=== PATIENT | female | born 1965 | race Caucasian/White ===

== ENCOUNTER 2016-08-01 19:36 | Emergency (ER) | payer OTHER ==
[2016-08-01 19:41] VITALS: RESP 18
[2016-08-01] MEDS ORDERED: SODIUM CHLORIDE 0.9% 1,000 ML IV STA (20:06)
[2016-08-01] MEDS ORDERED: METOCLOPRAMIDE 5 MG/ML 2 ML VIAL IVP STA (20:08)
[2016-08-01] MEDS ORDERED: MECLIZINE 12.5 MG TAB PO STA (20:08)
--- NOTE | 2016-08-01 20:12 | ED ---
General Adult HPI - General Chief complaint: Dizziness Stated complaint: DIZZINESS Time Seen by Provider: 08/01/16 19:48 Source: patient, RN notes reviewed Mode of arrival: EMS Limitations: no limitations - History of Present Illness Initial comments: Patient is a pleasant 50-year-old female presenting to the emergency department complaining of dizziness. Onset was around 1:00 when she woke from a nap. Patient feels a spinning sensation. Symptoms are positional. Symptoms worsen with upright position. Symptoms improved with lying down and closing eyes. No history of similar symptoms previously. No headache. No confusion. No weakness. Patient questions of her speech may be off and states it feels like it may be slurred. Patient denies alcohol or street drug use. - Related Data Home Medications Medication Instructions Recorded Confirmed lamoTRIgine [LaMICtal] 400 mg PO HS 09/01/14 08/01/16 ARIPiprazole [Abilify] 10 mg PO DAILY 11/07/15 08/01/16 Atorvastatin [Lipitor] 20 mg PO DAILY 11/07/15 08/01/16 Cyclobenzaprine [Flexeril] 10 mg PO HS 11/07/15 08/01/16 Escitalopram [Lexapro] 20 mg PO DAILY 11/07/15 08/01/16 ALPRAZolam [Xanax] 0.5 mg PO BID 12/02/15 08/01/16 Brivaracetam [Briviact] 50 mg PO BID 08/01/16 08/01/16 Phentermine HCl [Adipex-P] 37.5 mg PO QAM 08/01/16 08/01/16 clonazePAM [KlonoPIN] 1 mg PO TID 08/01/16 08/01/16 traMADol HCl [Ultram] 50 mg PO Q4-6H PRN 08/01/16 08/01/16 Allergies Allergy/AdvReac Type Severity Reaction Status Date / Time erythromycin base Allergy Rash/Hives Verified 08/01/16 19:49 iodine Allergy throat Verified 08/01/16 19:49 swelling and hives ketorolac tromethamine Allergy Rash/Hives Verified 08/01/16 19:49 [From Toradol] Penicillins Allergy throat Verified 08/01/16 19:49 swelling and hives azithromycin AdvReac red face Verified 08/01/16 19:49 codeine AdvReac Hallucinati Verified 08/01/16 19:49 ons lorazepam [From Ativan] AdvReac Hallucinati Verified 08/01/16 19:49 ons Review of Systems ROS Statement: Those systems with pertinent positive or pertinent negative responses have been documented in the HPI. ROS Other: All systems not noted in ROS Statement are negative. Constitutional: Denies: fever Eyes: Denies: eye pain ENT: Denies: ear pain Respiratory: Denies: cough Cardiovascular: Denies: chest pain Endocrine: Denies: fatigue Gastrointestinal: Denies: abdominal pain Genitourinary: Denies: dysuria Musculoskeletal: Denies: back pain Skin: Denies: rash Neurological: Reports: vertigo. Denies: headache, weakness, numbness, paresthesias, confusion Past Medical History Past Medical History: Seizure Disorder, Syncope Additional Past Medical History / Comment(s): migraines History of Any Multi-Drug Resistant Organisms: MRSA Date of last positivie culture/infection: 12/03/2010 MDRO Source:: arm and abdomen Past Surgical History: Appendectomy, Cholecystectomy, Ear Surgery, Hysterectomy , Orthopedic Surgery Additional Past Surgical History / Comment(s): frantz knee surgery, hiatal hernia Past Anesthesia/Blood Transfusion Reactions: Postoperative Nausea & Vomiting ( PONV) Past Psychological History: Depression Smoking Status: Never smoker Past Alcohol Use History: Rare Past Drug Use History: None Reported - Past Family History Mother Additional Family Medical History / Comment(s): stated mom has heart issues General Exam Limitations: no limitations General appearance: alert, in no apparent distress Head exam: Present: atraumatic, normocephalic Eye exam: Present: normal appearance, PERRL, EOMI. Absent: nystagmus ENT exam: Present: normal oropharynx Neck exam: Present: normal inspection Respiratory exam: Present: normal lung sounds bilaterally Cardiovascular Exam: Present: regular rate, normal rhythm GI/Abdominal exam: Present: soft. Absent: tenderness Extremities exam: Present: other (Right lower leg casted from recent surgery) Neurological exam: Present: alert, oriented X3, CN II-XII intact. Absent: motor sensory deficit Expanded Neurological exam: Present: other (No slurred speech noticed) Patient oriented to: Present: person, place, time Speech: Present: fluid speech. Absent: receptive aphasia, expressive aphasia Cranial nerves: Facial Sensation: Normal Sensory exam: Upper Extremity Light Touch: Normal, Lower Extremity Light Touch: Normal Motor strength exam: RUE: 5, LUE: 5, RLE: 5, LLE: 5 Eye Response: (4) open spontaneously Motor Response: (6) obeys commands Verbal Response: (5) oriented Psychiatric exam: Present: normal affect, normal mood Skin exam: Absent: rash Course Vital Signs 08/01/16 08/01/16 08/01/16 19:38 20:40 21:00 Temperature 98.3 F Pulse Rate 90 88 82 Respiratory 18 18 18 Rate Blood Pressure 152/69 129/61 125/57 O2 Sat by Pulse 96 97 Oximetry EKG Findings - EKG Comments: EKG Findings:: Normal sinus rhythm at 90. MS 166. QRS 142. QT 402. QTC 491. Left axis. Right bundle branch block. Left anterior fascicular block. Voltage criteria for LVH. No acute ST changes. Medical Decision Making - Medical Decision Making Patient reexamined and symptom-free. Patient is able to get up and immediately without any difficulty. Patient has been having some of these problems and speech problems for months. Patient has seen her neurologist for this. Patient has had her Lamictal dose increased and family is concerned it could be related to this. Patient and family are advised to follow-up with neurologist this week and discuss dosing and symptoms. - Lab Data Result diagrams: 08/01/16 20:10 08/01/16 20:10 Lab Results 08/01/16 08/01/16 08/01/16 Range/Units 20:10 20:10 20:10 WBC 9.4 (3.8-10.6) k/uL RBC 4.29 (3.80-5.40) m/uL Hgb 12.1 (11.4-16.0) gm/dL Hct 35.8 (34.0-46.0) % MCV 83.5 (80.0-100.0) fL MCH 28.1 (25.0-35.0) pg MCHC 33.7 (31.0-37.0) g/dL RDW 14.1 (11.5-15.5) % Plt Count 343 (150-450) k/uL Neutrophils % 67 % Lymphocytes % 25 % Monocytes % 4 % Eosinophils % 3 % Basophils % 1 % Neutrophils # 6.3 (1.3-7.7) k/uL Lymphocytes # 2.3 (1.0-4.8) k/uL Monocytes # 0.3 (0-1.0) k/uL Eosinophils # 0.3 (0-0.7) k/uL Basophils # 0.1 (0-0.2) k/uL PT 9.8 (9.0-12.0) sec INR 1.0 (<1.1) APTT 18.8 L (22.0-30.0) sec Sodium 143 (137-145) mmol/L Potassium 4.1 (3.5-5.1) mmol/L Chloride 108 H (98-107) mmol/L Carbon Dioxide 25 (22-30) mmol/L Anion Gap 10 mmol/L BUN 18 H (7-17) mg/dL Creatinine 0.70 (0.52-1.04) mg/dL Est GFR (MDRD) Af Amer >60 (>60 ml/min/1.73 sqM) Est GFR (MDRD) Non-Af >60 (>60 ml/min/1.73 sqM) Glucose 84 (74-99) mg/dL Calcium 9.0 (8.4-10.2) mg/dL Total Bilirubin 0.4 (0.2-1.3) mg/dL AST 25 (14-36) U/L ALT 28 (9-52) U/L Alkaline Phosphatase 187 H (38-126) U/L Total Protein 6.4 (6.3-8.2) g/dL Albumin 3.5 (3.5-5.0) g/dL Urine Color Urine Appearance (Clear) Urine pH (5.0-8.0) Ur Specific [place] (1.001-1.035) Urine Protein (Negative) Urine Glucose (UA) (Negative) Urine Ketones (Negative) Urine Blood (Negative) Urine Nitrite (Negative) Urine Bilirubin (Negative) Urine Urobilinogen (<2.0) mg/dL Ur Leukocyte Esterase (Negative) Urine Opiates Screen (NotDetected) Ur Oxycodone Screen (NotDetected) Urine Methadone Screen (NotDetected) Ur Propoxyphene Screen (NotDetected) Ur Barbiturates Screen (NotDetected) U Tricyclic Antidepress (NotDetected) Ur Phencyclidine Scrn (NotDetected) Ur Amphetamines Screen (NotDetected) U Methamphetamines Scrn (NotDetected) U Benzodiazepines Scrn (NotDetected) Urine Cocaine Screen (NotDetected) U Marijuana (THC) Screen (NotDetected) 08/01/16 08/01/16 Range/Units 21:10 21:10 WBC (3.8-10.6) k/uL RBC (3.80-5.40) m/uL Hgb (11.4-16.0) gm/dL Hct (34.0-46.0) % MCV (80.0-100.0) fL MCH (25.0-35.0) pg MCHC (31.0-37.0) g/dL RDW (11.5-15.5) % Plt Count (150-450) k/uL Neutrophils % % Lymphocytes % % Monocytes % % Eosinophils % % Basophils % % Neutrophils # (1.3-7.7) k/uL Lymphocytes # (1.0-4.8) k/uL Monocytes # (0-1.0) k/uL Eosinophils # (0-0.7) k/uL Basophils # (0-0.2) k/uL PT (9.0-12.0) sec INR (<1.1) APTT (22.0-30.0) sec Sodium (137-145) mmol/L Potassium (3.5-5.1) mmol/L Chloride (98-107) mmol/L Carbon Dioxide (22-30) mmol/L Anion Gap mmol/L BUN (7-17) mg/dL Creatinine (0.52-1.04) mg/dL Est GFR (MDRD) Af Amer (>60 ml/min/1.73 sqM) Est GFR (MDRD) Non-Af (>60 ml/min/1.73 sqM) Glucose (74-99) mg/dL Calcium (8.4-10.2) mg/dL Total Bilirubin (0.2-1.3) mg/dL AST (14-36) U/L ALT (9-52) U/L Alkaline Phosphatase (38-126) U/L Total Protein (6.3-8.2) g/dL Albumin (3.5-5.0) g/dL Urine Color Yellow Urine Appearance Clear (Clear) Urine pH 5.5 (5.0-8.0) Ur Specific [place] 1.027 (1.001-1.035) Urine Protein Trace H (Negative) Urine Glucose (UA) Negative (Negative) Urine Ketones Trace H (Negative) Urine Blood Negative (Negative) Urine Nitrite Negative (Negative) Urine Bilirubin Negative (Negative) Urine Urobilinogen 2.0 (<2.0) mg/dL Ur Leukocyte Esterase Negative (Negative) Urine Opiates Screen Not Detected (NotDetected) Ur Oxycodone Screen Not Detected (NotDetected) Urine Methadone Screen Not Detected (NotDetected) Ur Propoxyphene Screen Not Detected (NotDetected) Ur Barbiturates Screen Not Detected (NotDetected) U Tricyclic Antidepress Detected H (NotDetected) Ur Phencyclidine Scrn Not Detected (NotDetected) Ur Amphetamines Screen Detected H (NotDetected) U Methamphetamines Scrn Not Detected (NotDetected) U Benzodiazepines Scrn Detected H (NotDetected) Urine Cocaine Screen Not Detected (NotDetected) U Marijuana (THC) Screen Not Detected (NotDetected) - Radiology Data Radiology results: image reviewed (Computed tomography scan of the brain shows no acute intercranial abnormality. Surgical changes right mastoid) Disposition Clinical Impression: Vertigo Disposition: HOME SELF-CARE Condition: Stable Instructions: Dizziness (ED) Additional Instructions: Please follow-up with your primary care physician and neurologist tomorrow. Return for confusion, weakness, speech problems, uncontrolled dizziness, worsening symptoms or other concerns. Referrals: Scott Medrano MD [Primary Care Provider] - 1-2 days
[2016-08-01 20:29] LABS: Basophils # (A) 0.1 k/uL (0-0.2); Basophils % (A) 1 %; CH 27.7; CHCM 33.3; Eosinophils # (A) 0.3 k/uL (0-0.7); Eosinophils % (A) 3 %; HCT 35.8 % (34.0-46.0); HDW 2.85; HGB 12.1 gm/dL (11.4-16.0); Luc # (Auto) 0.12; Luc % (Auto) 1; Lymphocytes # (A) 2.3 k/uL (1.0-4.8); Lymphocytes % (A) 25 %; MCH 28.1 pg (25.0-35.0); MCHC 33.7 g/dL (31.0-37.0); MCV 83.5 fL (80.0-100.0); Mean Platelet Volume 6.6; Monocytes # (A) 0.3 k/uL (0-1.0); Monocytes % (A) 4 %; Neutrophils # (A) 6.3 k/uL (1.3-7.7); Neutrophils % (A) 67 %; RBC 4.29 m/uL (3.80-5.40); RDW 14.1 % (11.5-15.5); WBC 9.4 k/uL (3.8-10.6); WBC (Perox) 9.45
[2016-08-01 20:34] LABS: Prothrombin Time 9.8 sec (9.0-12.0)
[2016-08-01 20:35] LABS: ALT 28 U/L (9-52); AST 25 U/L (14-36); Alkaline Phosphatase 187 U/L (38-126); Anion Gap 10 mmol/L; Blood Urea Nitrogen 18 mg/dL (7-17); Carbon Dioxide 25 mmol/L (22-30); Chloride 108 mmol/L (98-107); Glucose 84 mg/dL (74-99); Non-African American GFR(MDRD) >60 (>60 ml/min/1.73 sqM); Potassium 4.1 mmol/L (3.5-5.1); Sodium 143 mmol/L (137-145); Total Bilirubin 0.4 mg/dL (0.2-1.3); Total Protein 6.4 g/dL (6.3-8.2)
[2016-08-01 20:54] LABS: Partial Thromboplastin Time 18.8 sec (22.0-30.0)
--- NOTE | 2016-08-01 20:59 | CT ---
EXAMINATION TYPE: CT brain wo con DATE OF EXAM: 08/01/2016 8:47 PM COMPARISON: CT brain 04/28/2015 HISTORY: 50-year-old female with vertigo and dizziness today. TECHNIQUE: Examination was done in axial plane without intravenous contrast. Coronal and sagittal r econstructions performed. CT DLP: 1065.20 mGycm Automated exposure control for dose reduction was used. FINDINGS: There is no evidence of acute intracranial hemorrhage, acute ischemic changes, mass, mass-effect, or extra-axial fluid collection. There is no effacement of cerebral sulci or basal subarachnoid cister ns. There is no hydrocephalus. There is no midline shift. Rivera-white matter distinction is preserv ed. Postsurgical changes along the right temporal bone with chronic opacification. Left mastoid air cells and paranasal sinuses are well pneumatized. Right nasal septal deviation. Orbits and globes are inta ct. IMPRESSION: No acute intracranial abnormality seen. Postsurgical changes along the right mastoid process and midd le ear cavity with chronic opacification. Clinically correlate for any known diagnosis suggest choles teatoma.
[2016-08-01 21:19] LABS: Appearance,Urine Clear (Clear); Bilirubin,Urine Negative (Negative); Glucose,Urine (UA) Negative (Negative); Ketones,Urine Trace (Negative); Leukocyte Esterase,Urine Negative (Negative); Nitrite,Urine Negative (Negative); PH, Urine 5.5 (5.0-8.0); Protein,Urine Trace (Negative); Specific Gravity,Urine 1.027 (1.001-1.035); UA Billing (MACRO vs. MICRO) CHEM
[2016-08-01] MEDS ORDERED: SCOPOLAMINE 1.5MG/72HR PATCH TRANSDERM STA (21:24)
[2016-08-01 23:16] VITALS: BP 131/58; PULSE 85; TEMP 97.5
== END 2016-08-01 23:05 | disposition home or self-care (01) ==
LOC: EC 19:36
DX: R42 Dizziness and giddiness (principal); G40.909 Epilepsy, unspecified, not intractable, without status epilepticus; F32.9 Major depressive disorder, single episode, unspecified; Z79.899 Other long term (current) drug therapy; Z88.1 Allergy status to other antibiotic agents; Z88.0 Allergy status to penicillin; Z88.5 Allergy status to narcotic agent; Z88.6 Allergy status to analgesic agent; Z88.8 Allergy status to other drugs, medicaments and biological substances
CPT/HCPCS: 36415; 93005; 80053; 85025; 85610; 85730; 81003; 80306; 70450; 99285; 96374; 96361 ×3; J2765

== ENCOUNTER 2016-09-04 15:12 | Emergency (ER) | payer OTHER ==
[2016-09-04 15:25] VITALS: TEMP 97.9
--- NOTE | 2016-09-04 15:56 | ED ---
General Adult HPI - General Chief complaint: Seizure Stated complaint: Seizure Time Seen by Provider: 09/04/16 15:16 Source: patient, RN notes reviewed, old records reviewed Mode of arrival: EMS Limitations: no limitations - History of Present Illness Initial comments: Chief complaint and history of present illness this is a 50-year-old female here with history of seizure. She is with a family friend was called by the patient's son. The patient's son called her and told her that her mother was starting to have the blink his which means she does not have a seizure. He left the house when the family friend got there she was having what she called a seizure with arms outstretched. After several minutes the patient told her while still having her seizure she should call EMS. The patient is able to speak during her seizure. EMS started an IV and gave her 5 mg of Versed. The patient's sleepy at this time. - Related Data Home Medications Medication Instructions Recorded Confirmed lamoTRIgine [LaMICtal] 400 mg PO HS 09/01/14 08/01/16 ARIPiprazole [Abilify] 10 mg PO DAILY 11/07/15 08/01/16 Atorvastatin [Lipitor] 20 mg PO DAILY 11/07/15 08/01/16 Cyclobenzaprine [Flexeril] 10 mg PO HS 11/07/15 08/01/16 Escitalopram [Lexapro] 20 mg PO DAILY 11/07/15 08/01/16 ALPRAZolam [Xanax] 0.5 mg PO BID 12/02/15 08/01/16 Brivaracetam [Briviact] 50 mg PO BID 08/01/16 08/01/16 Phentermine HCl [Adipex-P] 37.5 mg PO QAM 08/01/16 08/01/16 clonazePAM [KlonoPIN] 1 mg PO TID 08/01/16 08/01/16 traMADol HCl [Ultram] 50 mg PO Q4-6H PRN 08/01/16 08/01/16 Allergies Allergy/AdvReac Type Severity Reaction Status Date / Time erythromycin base Allergy Rash/Hives Verified 09/04/16 15:26 iodine Allergy Anaphylaxis Verified 09/04/16 16:29 ketorolac tromethamine Allergy Rash/Hives Verified 09/04/16 15:26 [From Toradol] Penicillins Allergy Anaphylaxis Verified 09/04/16 16:29 azithromycin AdvReac red face Verified 09/04/16 15:26 codeine AdvReac Hallucinati Verified 09/04/16 15:26 ons lorazepam [From Ativan] AdvReac Hallucinati Verified 09/04/16 15:26 ons Review of Systems ROS Statement: Those systems with pertinent positive or pertinent negative responses have been documented in the HPI. review of systems. Patient not complaining of any headache or visual acuity changes no chest pain or shortness of breath she does have chronic back pain. Did not complain of it at this time. No nausea no vomiting. All systems are reviewed.Past medical problems significant for seizure disorder often caused by chronic pain and anxiety. Reported to have had a significant syncopal episode in the past has migraines. The patient's surgeries include appendectomy, cholecystectomy, ear surgery, hysterectomy, bilateral knee surgeries. Family history noncontributory. The patient has ALLERGIES to erythromycin base, iodine, Toradol, penicillin, azithromycin, codeine and lorazepam. Patient nonsmoker rarely drinks alcohol socially. Denies drug abuse. Also past history of anxiety and depression ROS Other: All systems not noted in ROS Statement are negative. Past Medical History Past Medical History: Seizure Disorder, Syncope Additional Past Medical History / Comment(s): migraines History of Any Multi-Drug Resistant Organisms: MRSA Date of last positivie culture/infection: 12/03/2010 MDRO Source:: arm and abdomen Past Surgical History: Appendectomy, Cholecystectomy, Ear Surgery, Hysterectomy , Orthopedic Surgery Additional Past Surgical History / Comment(s): frantz knee surgery, hiatal hernia Past Anesthesia/Blood Transfusion Reactions: Postoperative Nausea & Vomiting ( PONV) Past Psychological History: Depression Smoking Status: Never smoker Past Alcohol Use History: Rare Past Drug Use History: None Reported - Past Family History Mother Additional Family Medical History / Comment(s): stated mom has heart issues General Exam - General Exam Comments Initial Comments: General: The patient is awake and alert, in no distress, and does not appear acutely ill. still sleepy from the Versed. Vital signs temperature 97.9 pulse 74 respiratory rate 18 pulse ox 90% room air pressure 130/65 Eye: Pupils are equal, round and reactive to light, extra-ocular movements are intact ; there is normal conjunctiva bilaterally. No signs of icterus. Ears, nose, mouth and throat: There are moist mucous membranes and no oral lesions. Neck: The neck is supple, there is no tenderness . Cardiovascular: There is a regular rate and rhythm. No murmur, rub or gallop is appreciated. Respiratory: Lungs are clear to auscultation, respirations are non-labored, breath sounds are equal. No wheezes, stridor, rales, or rhonchi. Gastrointestinal: Soft, non-distended, non-tender abdomen without masses or organomegaly noted. There is no rebound or guarding present. No CVA tenderness. Bowel sounds are unremarkable. Back: There is no tenderness to palpation in the midline. There is no obvious deformity. No rashes noted. Musculoskeletal: Normal ROM, no tenderness, mild edema right leg, recent Achilles tendon repair. Neurovascular status feet are intact. Neurological: CN II-XII intact, There are no obvious motor or sensory deficits. Coordination appears grossly intact. Speech is normal. Skin: Skin is warm and dry and no rashes or lesions are noted. Psychiatric: history of anxiety depression. Limitations: no limitations Course Vital Signs 09/04/16 09/04/16 15:19 17:08 Temperature 97.9 F Pulse Rate 74 56 L Respiratory 18 20 Rate Blood Pressure 138/65 122/56 O2 Sat by Pulse 98 99 Oximetry Medical Decision Making - Medical Decision Making Medical decision-making. Patient's white count is 8 hemoglobin 11 hematocrit 34. Patient's feeling better was to go home. The antiseizure medications that she is on have been drawn and sent out to a send out lab. Is advised to call follow-up with the follow-up nurse if they are therapeutic range. Also follow- up with her neurologist who prescribes his medications. Patient knows she can drive until free of seizures for 6 months - Lab Data Result diagrams: 09/04/16 15:50 Lab Results 09/04/16 Range/Units 15:50 WBC 8.5 (3.8-10.6) k/uL RBC 4.16 (3.80-5.40) m/uL Hgb 11.6 (11.4-16.0) gm/dL Hct 34.9 (34.0-46.0) % MCV 83.9 (80.0-100.0) fL MCH 27.9 (25.0-35.0) pg MCHC 33.3 (31.0-37.0) g/dL RDW 14.5 (11.5-15.5) % Plt Count 323 (150-450) k/uL Neutrophils % 73 % Lymphocytes % 19 % Monocytes % 4 % Eosinophils % 2 % Basophils % 0 % Neutrophils # 6.2 (1.3-7.7) k/uL Lymphocytes # 1.6 (1.0-4.8) k/uL Monocytes # 0.3 (0-1.0) k/uL Eosinophils # 0.2 (0-0.7) k/uL Basophils # 0.0 (0-0.2) k/uL Disposition Clinical Impression: Seizure disorder Disposition: HOME SELF-CARE Condition: Fair Instructions: Recurrent Seizures in Adults (ED) Additional Instructions: Call follow-up nurse to the ER for lab results concerning her antiepileptic drugs. Follow-up with your neurologist. No driving until cleared by a neurologist. Referrals: Scott Medrano MD [Primary Care Provider] - 1-2 days Time of Disposition: 17:44
[2016-09-04 16:13] LABS: Basophils % (A) 0 %; CH 27.7; CHCM 33.1; Eosinophils # (A) 0.2 k/uL (0-0.7); Eosinophils % (A) 2 %; HCT 34.9 % (34.0-46.0); HGB 11.6 gm/dL (11.4-16.0); Luc # (Auto) 0.12; Luc % (Auto) 2; Lymphocytes # (A) 1.6 k/uL (1.0-4.8); Lymphocytes % (A) 19 %; MCH 27.9 pg (25.0-35.0); MCHC 33.3 g/dL (31.0-37.0); MCV 83.9 fL (80.0-100.0); Mean Platelet Volume 7.3; Monocytes # (A) 0.3 k/uL (0-1.0); Monocytes % (A) 4 %; Neutrophils # (A) 6.2 k/uL (1.3-7.7); Neutrophils % (A) 73 %; RBC 4.16 m/uL (3.80-5.40); RDW 14.5 % (11.5-15.5); WBC 8.5 k/uL (3.8-10.6); WBC (Perox) 8.56
[2016-09-04 18:08] VITALS: BP 168/70; PULSE 73; RESP 18
[2016-09-06 10:53] LABS: Lamotrigine (Lamictal) 9.3 ug/mL (2.0-15.0)
== END 2016-09-04 18:11 | disposition home or self-care (01) ==
LOC: EC 15:12
DX: G40.909 Epilepsy, unspecified, not intractable, without status epilepticus (principal); F32.9 Major depressive disorder, single episode, unspecified; Z79.899 Other long term (current) drug therapy; Z88.1 Allergy status to other antibiotic agents; Z88.0 Allergy status to penicillin; Z88.6 Allergy status to analgesic agent; Z88.5 Allergy status to narcotic agent; Z88.8 Allergy status to other drugs, medicaments and biological substances
CPT/HCPCS: 36415; 80175; 80203; 85025; 99285; G0480; 80346

== ENCOUNTER 2017-04-05 07:31 | Emergency (ER) | payer OTHER ==
[2017-04-05] MEDS ORDERED: SODIUM CHLORIDE 0.9% 500 ML IV STA (07:52)
[2017-04-05] MEDS ORDERED: ONDANSETRON 4 MG/2 ML VIAL IVP STA (07:52)
[2017-04-05 08:19] LABS: HCT 42.3 % (34.0-46.0); HGB 13.6 gm/dL (11.4-16.0); MCH 26.7 pg (25.0-35.0); MCHC 32.2 g/dL (31.0-37.0); MCV 82.8 fL (80.0-100.0); Mean Platelet Volume 7.1; Platelet Count 279 k/uL (150-450); RBC 5.11 m/uL (3.80-5.40); RDW 15.7 % (11.5-15.5); WBC 13.6 k/uL (3.8-10.6)
--- NOTE | 2017-04-05 08:24 | ED ---
General Adult HPI - General Chief complaint: Nausea/Vomiting/Diarrhea Stated complaint: Stomach pain Time Seen by Provider: 04/05/17 07:31 Source: patient, RN notes reviewed Mode of arrival: wheelchair Limitations: no limitations - History of Present Illness Initial comments: This is a 51-year-old female presents emergency Department with nausea. Patient states she's had intermittent nausea since Tuesday but has not vomited. Patient states she has had dry heaves. Patient denies any diarrhea. Patient denies any fever. Patient states that her abdomen is sore but there is no actual area of pain she believes that sore secondary to all of dry heaving. Patient denies any previous surgeries on her abdomen. Patient denies chest pain palpitations difficulty breathing or shortness of breath. Patient denies any dysuria hematuria urinary frequency. Patient denies headache patient denies numbness weakness patient denies lightheadedness or dizziness. - Related Data Home Medications Medication Instructions Recorded Confirmed Brivaracetam [Briviact] 50 mg PO BID 08/01/16 04/05/17 clonazePAM [KlonoPIN] 1 mg PO TID 08/01/16 04/05/17 Melatonin 5 mg PO HS 04/05/17 04/05/17 Topiramate [Topamax] 25 mg PO BID 04/05/17 04/05/17 lamoTRIgine [LaMICtal Xr] 100 mg PO BID 04/05/17 04/05/17 Previous Rx's Medication Instructions Recorded Ondansetron Odt [Zofran Odt] 4 mg PO Q8HR PRN #10 tab 04/05/17 Allergies Allergy/AdvReac Type Severity Reaction Status Date / Time erythromycin base Allergy Rash/Hives Verified 04/05/17 08:25 iodine Allergy Anaphylaxis Verified 04/05/17 08:25 ketorolac tromethamine Allergy Rash/Hives Verified 04/05/17 08:25 [From Toradol] Penicillins Allergy Anaphylaxis Verified 04/05/17 08:25 azithromycin AdvReac red face Verified 04/05/17 08:25 codeine AdvReac Hallucinati Verified 04/05/17 08:25 ons lorazepam [From Ativan] AdvReac Hallucinati Verified 04/05/17 08:25 ons Review of Systems ROS Statement: Those systems with pertinent positive or pertinent negative responses have been documented in the HPI. ROS Other: All systems not noted in ROS Statement are negative. Past Medical History Past Medical History: Seizure Disorder, Syncope Additional Past Medical History / Comment(s): migraines History of Any Multi-Drug Resistant Organisms: MRSA Date of last positivie culture/infection: 12/03/2010 MDRO Source:: arm and abdomen Past Surgical History: Appendectomy, Cholecystectomy, Ear Surgery, Hysterectomy , Orthopedic Surgery Additional Past Surgical History / Comment(s): frantz knee surgery, hiatal hernia Past Anesthesia/Blood Transfusion Reactions: Postoperative Nausea & Vomiting ( PONV) Past Psychological History: Depression Smoking Status: Never smoker Past Alcohol Use History: Rare Past Drug Use History: None Reported - Past Family History Mother Additional Family Medical History / Comment(s): stated mom has heart issues General Exam - General Exam Comments Initial Comments: GENERAL: Patient is well-developed and well-nourished. Patient is nontoxic and well- hydrated and is in mild distress. ENT: Neck is soft and supple. No significant lymphadenopathy is noted. Oropharynx is clear. Moist mucous membranes. Neck has full range of motion without eliciting any pain. EYES: The sclera were anicteric and conjunctiva were pink and moist. Extraocular movements were intact and pupils were equal round and reactive to light. Eyelids were unremarkable. PULMONARY: Unlabored respirations. Good breath sounds bilaterally. No audible rales rhonchi or wheezing was noted. CARDIOVASCULAR: There is a regular rate and rhythm without any murmurs gallops or rubs. ABDOMEN: Soft and nontender with normal bowel sounds. No palpable organomegaly was noted. There is no palpable pulsatile mass. SKIN: Skin is clear with no lesions or rashes and otherwise unremarkable. NEUROLOGIC: Patient is alert and oriented x3. Cranial nerves II through XII are grossly intact. Motor and sensory are also intact. Normal speech, volume and content. Symmetrical smile. MUSCULOSKELETAL: Normal extremities with adequate strength and full range of motion. LYMPHATICS: No significant lymphadenopathy is noted PSYCHIATRIC: Normal psychiatric evaluation. Normal interpersonal interactions appears functionally intact in deals appropriately with others. No signs of depression. No signs of anxiety. Limitations: no limitations Course Vital Signs 04/05/17 04/05/17 04/05/17 07:34 09:09 10:00 Temperature Pulse Rate 92 84 78 Respiratory 18 16 16 Rate Blood Pressure 149/66 109/64 124/60 O2 Sat by Pulse 98 96 96 Oximetry 04/05/17 11:28 Temperature 97.3 F L Pulse Rate 81 Respiratory 16 Rate Blood Pressure 122/68 O2 Sat by Pulse 96 Oximetry Medical Decision Making - Medical Decision Making I will begin the room to reevaluate the patient she had no longer any abdominal pain she had not had any dry heaves and nausea for the last hour and she felt comfortable going home. - Lab Data Result diagrams: 04/05/17 08:09 04/05/17 08:09 Lab Results 04/05/17 04/05/17 04/05/17 Range/Units 08:09 08:09 09:30 WBC 13.6 H (3.8-10.6) k/uL RBC 5.11 (3.80-5.40) m/uL Hgb 13.6 (11.4-16.0) gm/dL Hct 42.3 (34.0-46.0) % MCV 82.8 (80.0-100.0) fL MCH 26.7 (25.0-35.0) pg MCHC 32.2 (31.0-37.0) g/dL RDW 15.7 H (11.5-15.5) % Plt Count 279 (150-450) k/uL Neutrophils % (Manual) 18 % Lymphocytes % (Manual) 80 % Monocytes % (Manual) 1 % Basophils % (Manual) 1 % Neutrophils # (Manual) 2.45 (1.3-7.7) k/uL Lymphocytes # (Manual) 10.88 H (1.0-4.8) k/uL Monocytes # (Manual) 0.14 (0-1.0) k/uL Basophils # (Manual) 0.14 (0-0.2) k/uL Nucleated RBCs 0 (0-0) /100 WBC Differential Comment Manual Slide Review Performed Poikilocytosis (manual Present Sodium 142 (137-145) mmol/L Potassium 3.6 (3.5-5.1) mmol/L Chloride 104 (98-107) mmol/L Carbon Dioxide 26 (22-30) mmol/L Anion Gap 12 mmol/L BUN 25 H (7-17) mg/dL Creatinine 1.19 H (0.52-1.04) mg/dL Est GFR (MDRD) Af Amer 58 (>60 ml/min/1.73 sqM) Est GFR (MDRD) Non-Af 48 (>60 ml/min/1.73 sqM) Glucose 101 H (74-99) mg/dL Calcium 9.3 (8.4-10.2) mg/dL Total Bilirubin 0.5 (0.2-1.3) mg/dL AST 67 H (14-36) U/L ALT 58 H (9-52) U/L Alkaline Phosphatase 319 H (38-126) U/L Total Protein 6.5 (6.3-8.2) g/dL Albumin 3.4 L (3.5-5.0) g/dL Amylase 35 (30-110) U/L Lipase 74 (23-300) U/L Urine Color Yellow Urine Appearance Turbid H (Clear) Urine pH 5.5 (5.0-8.0) Ur Specific [place] 1.018 (1.001-1.035) Urine Protein 1+ H (Negative) Urine Glucose (UA) Negative (Negative) Urine Ketones 1+ H (Negative) Urine Blood Trace H (Negative) Urine Nitrite Negative (Negative) Urine Bilirubin 1+ H (Negative) Urine Urobilinogen 2.0 (<2.0) mg/dL Ur Leukocyte Esterase Moderate H (Negative) Urine RBC 9 H (0-5) /hpf Urine WBC 36 H (0-5) /hpf Ur Squamous Epith Cells 43 H (0-4) /hpf Urine Bacteria Few H (None) /hpf Urine Mucus Many H (None) /hpf Disposition Clinical Impression: Nausea, Lymphocytosis Disposition: HOME SELF-CARE Condition: Good Instructions: Acute Nausea and Vomiting (ED) Additional Instructions: Follow-up with Dr. Mcpherson or Dr. Medrano tomorrow Prescriptions: Ondansetron Odt [Zofran Odt] 4 mg PO Q8HR PRN #10 tab PRN Reason: Nausea Referrals: Scott Medrano MD [Primary Care Provider] - 1-2 days Time of Disposition: 11:21
[2017-04-05 08:32] LABS: Albumin 3.4 g/dL (3.5-5.0); Calcium 9.3 mg/dL (8.4-10.2); Potassium 3.6 mmol/L (3.5-5.1); Total Bilirubin 0.5 mg/dL (0.2-1.3); Total Protein 6.5 g/dL (6.3-8.2)
--- NOTE | 2017-04-05 08:48 | XR ---
EXAMINATION TYPE: XR KUB DATE OF EXAM: 04/05/2017 8:45 AM CLINICAL HISTORY: Nausea and vomiting TECHNIQUE: Single supine image of the abdomen is obtained. COMPARISON: 12/02/[address] dated 07/02/2015. FINDINGS: Scattered gas is seen in non-distended small bowel loops. Gas and fecal material is seen in non-distended colon. There is no visceromegaly, pneumoperitoneum, or abnormal calcification apprecia yoandy. The lung bases are clear and the osseous structures are intact. Cholecystectomy clips are noted within the right upper quadrant. Mild degenerative changes the femoral acetabular joints and lumbosac ral junction are noted. Rounded density in the left hemipelvis likely relates to bowel this is simila r to the prior exam of 2016 and no abnormality is seen on the CT of 2016. IMPRESSION: Nonobstructive bowel gas pattern.
[2017-04-05 09:17] LABS: Basophils # (M) 0.14 k/uL (0-0.2); Lymphocytes # (M) 10.88 k/uL (1.0-4.8); Monocytes # (M) 0.14 k/uL (0-1.0); Neutrophils # (M) 2.45 k/uL (1.3-7.7); Neutrophils % (M) 18 %; Nucleated Red Blood Cells 0 /100 WBC (0-0); Total Cells Counted 100
[2017-04-05 09:18] LABS: Poikilocytosis (M) Present
[2017-04-05 10:10] LABS: Appearance,Urine Turbid (Clear); Bacteria,Urine Few /hpf; Bilirubin,Urine 1+ (Negative); Blood,Urine Trace (Negative); Color,Urine Yellow; Glucose,Urine (UA) Negative (Negative); Ketones,Urine 1+ (Negative); Leukocyte Esterase,Urine Moderate (Negative); Mucus,Urine Many /hpf; Nitrite,Urine Negative (Negative); PH, Urine 5.5 (5.0-8.0); Protein,Urine 1+ (Negative); RBC,Urine 9 /hpf (0-5); Specific Gravity,Urine 1.018 (1.001-1.035); Squamous Epithelial Cell,Urine 43 /hpf (0-4); WBC,Urine 36 /hpf (0-5)
[2017-04-05] MEDS ORDERED: METOCLOPRAMIDE 5 MG/ML 2 ML VIAL IVP STA ×2 (10:19→10:24)
[2017-04-05] MEDS ORDERED: ASPIRIN 81 MG PO STA (10:22)
[2017-04-05] MEDS ORDERED: NITROGLYCERIN OINT 1 INCH/GM PACKET TOPICAL STA (10:22)
--- NOTE | 2017-04-05 11:08 | US ---
EXAMINATION TYPE: US gallbladder DATE OF EXAM: 04/05/2017 COMPARISON: 07/02/2015 CT abdomen pelvis. CLINICAL HISTORY: Pain. Vomiting (dry heaving) x 2 days. Abdominal pain for 1 week. Cholecystectomy EXAM MEASUREMENTS: Liver Length: 14.9 cm Gallbladder Wall: Surgically absent CBD: 0.4 cm Right Kidney: 9.7 x 4.8 x 4.3 cm Pancreas: Obscured by bowel gas Liver: only visualized intercostally. Focal hypoechoic lesion = 3.1 x 3.0 x 3.5cm. This is superimp osed upon a background of heterogenous hepatic echotexture, most commonly relating to hepatic steatos is and limiting evaluation for underlying masses. Gallbladder: Surgically absent Evidence for sonographic Steve's sign: No CBD: appears wnl Right Kidney: no evidence of hydronephrosis Technical limitations due to large amount of overlying bowel content IMPRESSION: 1. Surgical absence of the gallbladder with no gallbladder fossa fluid collection. 2. Solitary hepatic mass measuring up to 3.5 cm. This is nonspecific and superimposed upon a backgrou nd of moderate hepatic steatosis. Further evaluation and characterization with dynamic contrast-enhan marty CT abdomen is recommended on a nonemergent basis.
[2017-04-06 22:56] VITALS: BP 122/68; PULSE 81; RESP 16
[2017-04-06 23:02] VITALS: TEMP 97.3
== END 2017-04-05 12:05 | disposition home or self-care (01) ==
LOC: EC 07:31
DX: D72.820 Lymphocytosis (symptomatic) (principal); R11.0 Nausea; R10.9 Unspecified abdominal pain; G40.909 Epilepsy, unspecified, not intractable, without status epilepticus; F32.9 Major depressive disorder, single episode, unspecified; Z79.899 Other long term (current) drug therapy; Z88.0 Allergy status to penicillin; Z88.1 Allergy status to other antibiotic agents; Z88.5 Allergy status to narcotic agent; Z88.6 Allergy status to analgesic agent; Z88.8 Allergy status to other drugs, medicaments and biological substances; Z91.048 Other nonmedicinal substance allergy status; Z86.69 Personal history of other diseases of the nervous system and sense organs; Z86.14 Personal history of Methicillin resistant Staphylococcus aureus infection; Z90.49 Acquired absence of other specified parts of digestive tract; Z53.8 Procedure and treatment not carried out for other reasons
CPT/HCPCS: 36415; 80053; 82150; 83690; 85025; 81001; 74018; 76705; 99284; 96374; 96375; 96361; J2765; J2405

== ENCOUNTER → 2017-10-18 | Outpatient (CLI) | payer OTHER ==
[2017-10-18 09:59] LABS: Calcium 9.6 mg/dL (8.4-10.2); Total Bilirubin 0.3 mg/dL (0.2-1.3)
[2017-10-18 10:12] LABS: T4, Free (Free Thyroxine) 1.09 ng/dL (0.78-2.19)
[2017-10-18 10:33] LABS: Basophils % (A) 1 %; Eosinophils # (A) 0.2 k/uL (0-0.7); Eosinophils % (A) 2 %; HCT 36.1 % (34.0-46.0); HGB 11.6 gm/dL (11.4-16.0); Lymphocytes # (A) 2.3 k/uL (1.0-4.8); Lymphocytes % (A) 32 %; MCH 27.8 pg (25.0-35.0); MCHC 32.2 g/dL (31.0-37.0); MCV 86.3 fL (80.0-100.0); Mean Platelet Volume 7.2; Monocytes # (A) 0.3 k/uL (0-1.0); Monocytes % (A) 5 %; Neutrophils # (A) 4.3 k/uL (1.3-7.7); Neutrophils % (A) 60 %; Platelet Count 283 k/uL (150-450); RBC 4.18 m/uL (3.80-5.40); RDW 14.2 % (11.5-15.5); WBC 7.2 k/uL (3.8-10.6)
== END | disposition home or self-care (01) ==
LOC: LABWHC1 08:46
PROVIDERS: ATTEND Pediatrics Neurodevelopmental Disabilities
DX: G40.319 Generalized idiopathic epilepsy and epileptic syndromes, intractable, without status epilepticus (principal)
CPT/HCPCS: 36415; 80053; 80061; 80175; 82607; 84439; 84443; 85025

== ENCOUNTER 2018-01-13 01:12 | Emergency (ER) | payer OTHER ==
[2018-01-13 01:18] VITALS: BP 130/69; PULSE 78; RESP 18; TEMP 98.3
--- NOTE | 2018-01-13 01:44 | ED ---
Extremity Problem HPI - General Chief complaint: Extremity Problem,Nontraumatic Stated complaint: Leg Pain from cast Time Seen by Provider: 01/13/18 01:24 Source: patient Mode of arrival: ambulatory Limitations: no limitations - History of Present Illness Initial comments: 52-year-old female patient presents to the emergency department today for evaluation of her cast. Patient states that her foot surgeon put a trial cast on her leg to see if she would be able to tolerate it before having surgery. She is scheduled to have a bone spur removed on 01/25/2018. Patient states that the cast is very tight around her ankle, she is unable to tolerate it being in place, and wants it removed. Patient states that she did not have the cast in place for an injury. She denies any numbness or tingling to her toes. Denies any pain, states it just feels like an intense pressure. She denies any other physical concerns. - Related Data Home Medications Medication Instructions Recorded Confirmed Brivaracetam [Briviact] 50 mg PO BID 08/01/16 04/05/17 clonazePAM [KlonoPIN] 1 mg PO TID 08/01/16 04/05/17 Melatonin 5 mg PO HS 04/05/17 04/05/17 Topiramate [Topamax] 25 mg PO BID 04/05/17 04/05/17 lamoTRIgine [LaMICtal Xr] 100 mg PO BID 04/05/17 04/05/17 Previous Rx's Medication Instructions Recorded Ondansetron Odt [Zofran Odt] 4 mg PO Q8HR PRN #10 tab 04/05/17 Allergies Allergy/AdvReac Type Severity Reaction Status Date / Time erythromycin base Allergy Rash/Hives Verified 01/13/18 01:18 iodine Allergy Anaphylaxis Verified 01/13/18 01:18 ketorolac tromethamine Allergy Rash/Hives Verified 01/13/18 01:18 [From Toradol] Penicillins Allergy Anaphylaxis Verified 01/13/18 01:18 azithromycin AdvReac red face Verified 01/13/18 01:18 codeine AdvReac Hallucinati Verified 01/13/18 01:18 ons lorazepam [From Ativan] AdvReac Hallucinati Verified 01/13/18 01:18 ons Review of Systems ROS Statement: Those systems with pertinent positive or pertinent negative responses have been documented in the HPI. ROS Other: All systems not noted in ROS Statement are negative. Past Medical History Past Medical History: Seizure Disorder, Syncope Additional Past Medical History / Comment(s): migraines History of Any Multi-Drug Resistant Organisms: MRSA Date of last positivie culture/infection: 12/03/2010 MDRO Source:: arm and abdomen Past Surgical History: Appendectomy, Cholecystectomy, Ear Surgery, Hysterectomy , Orthopedic Surgery Additional Past Surgical History / Comment(s): frantz knee surgery, hiatal hernia Past Anesthesia/Blood Transfusion Reactions: Postoperative Nausea & Vomiting ( PONV) Past Psychological History: Depression Smoking Status: Never smoker Past Alcohol Use History: Rare Past Drug Use History: None Reported - Past Family History Mother Additional Family Medical History / Comment(s): stated mom has heart issues General Exam Limitations: no limitations General appearance: alert, in no apparent distress, other (This is a well- developed, well-nourished adult female patient in no acute distress. Vital signs upon presentation are temperature 98.3F, pulse 78, respirations 18, blood pressure 130/69, pulse ox 100% on room air.) Respiratory exam: Present: normal lung sounds bilaterally. Absent: respiratory distress, wheezes, rales, rhonchi, stridor Cardiovascular Exam: Present: regular rate, normal rhythm, normal heart sounds. Absent: systolic murmur, diastolic murmur, rubs, gallop, clicks Extremities exam: Present: normal inspection, full ROM, normal capillary refill , other (Skin to the lower extremities is pink, warm, and dry. Cap refills less than 3 seconds. Pedal pulses 2+ and equal bilaterally.). Absent: tenderness, pedal edema, joint swelling, calf tenderness Neurological exam: Present: alert, oriented X3, CN II-XII intact Psychiatric exam: Present: normal affect, normal mood Skin exam: Present: warm, dry, intact, normal color. Absent: rash Course Vital Signs 01/13/18 01:15 Temperature 98.3 F Pulse Rate 78 Respiratory 18 Rate Blood Pressure 130/69 O2 Sat by Pulse 100 Oximetry Medical Decision Making - Medical Decision Making 52-year-old female patient presented to the emergency department today requesting cast removal. Patient did not have the cast in place for an injury. Cast was removed using the cast cutter. Patient tolerated the procedure well. She is instructed to follow-up with her insole stiffener for further evaluation since possible. Return parameters discussed in detail. She verbalizes understanding and agrees with this plan. Disposition Clinical Impression: Problem with fiberglass cast Disposition: HOME SELF-CARE Condition: Good Additional Instructions: Follow-up with your surgeon for recheck as soon as possible. Return here immediately for any new, worsening, or concerning symptoms Is patient prescribed a controlled substance at d/c from ED?: No Referrals: Scott Medrano MD [Primary Care Provider] - 1-2 days Time of Disposition: 01:43
== END 2018-01-13 01:51 | disposition home or self-care (01) ==
LOC: EC 01:12
DX: Z47.89 Encounter for other orthopedic aftercare (principal); M79.605 Pain in left leg; G40.909 Epilepsy, unspecified, not intractable, without status epilepticus; G43.909 Migraine, unspecified, not intractable, without status migrainosus; Z86.14 Personal history of Methicillin resistant Staphylococcus aureus infection; Z98.890 Other specified postprocedural states; Z79.899 Other long term (current) drug therapy; Z88.1 Allergy status to other antibiotic agents; Z91.048 Other nonmedicinal substance allergy status; Z88.6 Allergy status to analgesic agent; Z88.0 Allergy status to penicillin; Z88.5 Allergy status to narcotic agent; Z88.8 Allergy status to other drugs, medicaments and biological substances
CPT/HCPCS: 99283

== ENCOUNTER 2018-09-28 08:46 | Day surgery (SDC) | payer OTHER ==
[2018-09-26 09:11] VITALS: BMI 30.2
[~2018-09-28 08:46] MED LIST: SODIUM CHLORIDE 0.9% 1,000 ML IV SCH
[2018-09-28 09:17] VITALS: PULSE 80; RESP 20; TEMP 98.6
[2018-09-28] MEDS ORDERED: IV FLUID CONTINUATION 500 ML IV ONE (11:26)
[2018-09-28] MEDS ORDERED: ACETAMINOPHEN TAB 325 MG TAB PO STA (11:38)
--- NOTE | 2018-09-28 19:37 | P.PCN ---
Preoperative Diagnosis: Diagnosis Recurrent loss of consciousness and dizziness Twelve-lead ECG shows sinus rhythm DC interval of the upper limits of normal rig ht bundle branch block left axis Tilt table test per protocol Blood pressure 136/60 mmHg Baseline heart rate 65 beats a minute Patient was tilted upright at an angle of 70 per protocol change in heart rate and blood pressure no symptoms noted and she was laid supine at the end of the procedure Impression Twelve-lead ECG showing DC interval of the upper limbs are normal with right bundle branch block with left axis No evidence for neurocardiogenic syncope Normal heart rate and blood pressure response to upright tilting
== END 2018-09-28 11:58 | disposition home or self-care (01) ==
LOC: CATHEP 08:46
PROVIDERS: ATTEND Internal Medicine Clinical Cardiac Electrophysiology
DX: R55 Syncope and collapse (principal); R00.2 Palpitations; I25.10 Atherosclerotic heart disease of native coronary artery without angina pectoris; Z79.899 Other long term (current) drug therapy; Z88.1 Allergy status to other antibiotic agents; Z88.5 Allergy status to narcotic agent; Z88.0 Allergy status to penicillin; Z88.8 Allergy status to other drugs, medicaments and biological substances; Z91.048 Other nonmedicinal substance allergy status
CPT/HCPCS: 93660

== ENCOUNTER 2018-09-29 13:20 | Emergency (ER) | payer OTHER ==
[2018-09-29] MEDS ORDERED: SODIUM CHLORIDE 0.9% 500 ML 500 ML IV STA (14:12)
--- NOTE | 2018-09-29 14:55 | XR ---
EXAMINATION TYPE: XR chest 2V DATE OF EXAM: 09/29/2018 COMPARISON: 03/04/2016 HISTORY: 52-year-old female syncope TECHNIQUE: PA and lateral views FINDINGS: Heart upper limits of normal in size. Mild peribronchial cuffing appears chronic. No consolidation or pleural effusion. IMPRESSION: Borderline heart size. Chronic changes without definite acute process.
[2018-09-29 15:05] LABS: INR 0.9 (<1.2); Partial Thromboplastin Time 22.8 sec (22.0-30.0); Prothrombin Time 9.7 sec (9.0-12.0)
[2018-09-29 15:07] LABS: ALT 28 U/L (9-52); AST 33 U/L (14-36); African American GFR (CKD) >90 (>60 ml/min/1.73 sqM); Alkaline Phosphatase 189 U/L (38-126); Anion Gap 8 mmol/L; Blood Urea Nitrogen 20 mg/dL (7-17); Calcium 9.6 mg/dL (8.4-10.2); Carbon Dioxide 25 mmol/L (22-30); Chloride 110 mmol/L (98-107); Glucose 94 mg/dL (74-99); Sodium 143 mmol/L (137-145); Total Bilirubin 0.3 mg/dL (0.2-1.3); Total Protein 6.7 g/dL (6.3-8.2)
[2018-09-29 15:48] LABS: Basophils % (A) 1 %; Eosinophils # (A) 0.1 k/uL (0-0.7); Eosinophils % (A) 2 %; HCT 33.1 % (34.0-46.0); HGB 10.7 gm/dL (11.4-16.0); Hypochromasia Slight; Lymphocytes # (A) 2.3 k/uL (1.0-4.8); Lymphocytes % (A) 35 %; MCH 26.5 pg (25.0-35.0); MCHC 32.2 g/dL (31.0-37.0); MCV 82.2 fL (80.0-100.0); Monocytes # (A) 0.2 k/uL (0-1.0); Monocytes % (A) 3 %; Neutrophils # (A) 3.7 k/uL (1.3-7.7); Neutrophils % (A) 58 %; Platelet Count 284 k/uL (150-450); RBC 4.03 m/uL (3.80-5.40); RDW 15.9 % (11.5-15.5); WBC 6.4 k/uL (3.8-10.6)
[2018-09-29 16:05] VITALS: BP 137/68
--- NOTE | 2018-09-29 16:12 | ED ---
General Adult HPI - General Chief complaint: Syncope Stated complaint: Syncope Time Seen by Provider: 09/29/18 14:12 Source: patient, RN notes reviewed, old records reviewed Mode of arrival: ambulatory Limitations: no limitations - History of Present Illness Initial comments: 52-year-old female presents for evaluation syncopal episode. Patient has hist ory of seizure disorder, states this episode was not at all like previous seizures. She states she felt somewhat lightheaded, she had returned to her bedroom where she sat in a chair and lost consciousness. She is uncertain how long she was unconscious. She denies injury. She does report some palpitations during this episode. No chest pain. She denies abdominal pain nausea vomiting. She was seen at an outside hospital with similar symptoms and admitted at that time. Exact etiology of her symptoms was unclear. She is scheduled for a loop recorder in approximately one week with cardiology. - Related Data Home Medications Medication Instructions Recorded Confirmed Brivaracetam [Briviact] 50 mg PO BID 08/01/16 09/29/18 clonazePAM [KlonoPIN] 1 mg PO DAILY 08/01/16 09/29/18 Topiramate [Topamax] 25 mg PO BID 04/05/17 09/29/18 ALPRAZolam [Xanax] 0.5 mg PO Q8HR PRN 09/26/18 09/29/18 Melatonin 10 mg PO HS 09/26/18 09/29/18 diphenhydrAMINE HCL [Benadryl] 25 mg PO HS 09/26/18 09/29/18 lamoTRIgine [LaMICtal] 200 mg PO BID 09/26/18 09/29/18 Allergies Allergy/AdvReac Type Severity Reaction Status Date / Time erythromycin base Allergy Rash/Hives Verified 09/29/18 14:04 iodine Allergy Anaphylaxis Verified 09/29/18 14:04 ketorolac tromethamine Allergy Rash/Hives/ Verified 09/29/18 14:04 [From Toradol] hallucinati ons Penicillins Allergy Anaphylaxis Verified 09/29/18 14:04 azithromycin AdvReac red face Verified 09/29/18 14:04 codeine AdvReac Hallucinati Verified 09/29/18 14:04 ons lorazepam [From Ativan] AdvReac Hallucinati Verified 09/29/18 14:04 ons Review of Systems ROS Statement: Those systems with pertinent positive or pertinent negative responses have been documented in the HPI. ROS Other: All systems not noted in ROS Statement are negative. 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, swelling of left lower leg, insomnia, hx hiatal hernia, hx colon cancer, diarrhea, hx psoriasis, Leaky heart valve, episodes of "passing out" History of Any Multi-Drug Resistant Organisms: MRSA Date of last positivie culture/infection: 12/03/2010 MDRO Source:: arm and abdomen Past Surgical History: Appendectomy, Bowel Resection, Cholecystectomy, Ear Surgery, Hysterectomy, Orthopedic Surgery Additional Past Surgical History / Comment(s): frantz knee arthroscopy, hiatal hernia surgery, rt ear surgery to remove middle ear Past Anesthesia/Blood Transfusion Reactions: Postoperative Nausea & Vomiting (PONV) Past Psychological History: Anxiety, Panic Disorder Smoking Status: Never smoker Past Alcohol Use History: None Reported Past Drug Use History: None Reported - Past Family History Mother Family Medical History: No Reported History Additional Family Medical History / Comment(s): . General Exam Limitations: no limitations General appearance: alert, in no apparent distress Head exam: Present: atraumatic, normocephalic Eye exam: Present: normal appearance, PERRL ENT exam: Present: normal exam Neck exam: Present: normal inspection. Absent: tenderness, meningismus Respiratory exam: Present: normal lung sounds bilaterally. Absent: respiratory distress, wheezes Cardiovascular Exam: Present: regular rate, normal rhythm GI/Abdominal exam: Present: soft. Absent: distended, tenderness, guarding Extremities exam: Present: normal inspection, normal capillary refill Back exam: Present: normal inspection Neurological exam: Present: alert, oriented X3, CN II-XII intact. Absent: motor sensory deficit Psychiatric exam: Present: normal affect, normal mood Skin exam: Present: warm, dry, intact. 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 Presenting for evaluation today. She has had issues of recurrent syncope has had follow-up with cardiology. She is scheduled for a loop recorder. EKG is sinus rhythm similar compared to previous. Laboratory testing does reveal some anemia which is somewhat down trending but stable. She has no melena or hematochezia. She has normal electrolytes. Normal kidney function no signs of dehydration. Urinalysis does show 30 white cells, no dysuria, no urinary symptoms. Will not treat at this time. Case discussed with Dr. Mcpherson, who will see this patient on continued outpatient basis. He reports normal workup at previous hospital a dmission. She scheduled for a loop recorder in one week and will maintain this appointment. She will receive close follow-up with her primary care physician. Patient will continue to maintain oral hydration. Please return with worsening or changing symptoms. - Lab Data Result diagrams: 09/29/18 14:10 09/29/18 14:10 Lab Results 09/29/18 09/29/18 09/29/18 Range/Units 14:10 14:10 14:10 WBC 6.4 (3.8-10.6) k/uL RBC 4.03 (3.80-5.40) m/uL Hgb 10.7 L (11.4-16.0) gm/dL Hct 33.1 L (34.0-46.0) % MCV 82.2 (80.0-100.0) fL MCH 26.5 (25.0-35.0) pg MCHC 32.2 (31.0-37.0) g/dL RDW 15.9 H (11.5-15.5) % Plt Count 284 (150-450) k/uL Neutrophils % 58 % Lymphocytes % 35 % Monocytes % 3 % Eosinophils % 2 % Basophils % 1 % Neutrophils # 3.7 (1.3-7.7) k/uL Lymphocytes # 2.3 (1.0-4.8) k/uL Monocytes # 0.2 (0-1.0) k/uL Eosinophils # 0.1 (0-0.7) k/uL Basophils # 0.0 (0-0.2) k/uL Hypochromasia Slight PT 9.7 (9.0-12.0) sec INR 0.9 (<1.2) APTT 22.8 (22.0-30.0) sec Sodium 143 (137-145) mmol/L Potassium 4.0 (3.5-5.1) mmol/L Chloride 110 H (98-107) mmol/L Carbon Dioxide 25 (22-30) mmol/L Anion Gap 8 mmol/L BUN 20 H (7-17) mg/dL Creatinine 0.81 (0.52-1.04) mg/dL Est GFR (CKD-EPI)AfAm >90 (>60 ml/min/1.73 sqM) Est GFR (CKD-EPI)NonAf 84 (>60 ml/min/1.73 sqM) Glucose 94 (74-99) mg/dL Calcium 9.6 (8.4-10.2) mg/dL Total Bilirubin 0.3 (0.2-1.3) mg/dL AST 33 (14-36) U/L ALT 28 (9-52) U/L Alkaline Phosphatase 189 H (38-126) U/L Troponin I (0.000-0.034) ng/mL Total Protein 6.7 (6.3-8.2) g/dL Albumin 4.0 (3.5-5.0) g/dL Urine Color Urine Appearance (Clear) Urine pH (5.0-8.0) Ur Specific [place] (1.001-1.035) Urine Protein (Negative) Urine Glucose (UA) (Negative) Urine Ketones (Negative) Urine Blood (Negative) Urine Nitrite (Negative) Urine Bilirubin (Negative) Urine Urobilinogen (<2.0) mg/dL Ur Leukocyte Esterase (Negative) Urine RBC (0-5) /hpf Urine WBC (0-5) /hpf Ur Squamous Epith Cells (0-4) /hpf Urine Mucus (None) /hpf 09/29/18 09/29/18 Range/Units 14:10 16:00 WBC (3.8-10.6) k/uL RBC (3.80-5.40) m/uL Hgb (11.4-16.0) gm/dL Hct (34.0-46.0) % MCV (80.0-100.0) fL MCH (25.0-35.0) pg MCHC (31.0-37.0) g/dL RDW (11.5-15.5) % Plt Count (150-450) k/uL Neutrophils % % Lymphocytes % % Monocytes % % Eosinophils % % Basophils % % Neutrophils # (1.3-7.7) k/uL Lymphocytes # (1.0-4.8) k/uL Monocytes # (0-1.0) k/uL Eosinophils # (0-0.7) k/uL Basophils # (0-0.2) k/uL Hypochromasia PT (9.0-12.0) sec INR (<1.2) APTT (22.0-30.0) sec Sodium (137-145) mmol/L Potassium (3.5-5.1) mmol/L Chloride (98-107) mmol/L Carbon Dioxide (22-30) mmol/L Anion Gap mmol/L BUN (7-17) mg/dL Creatinine (0.52-1.04) mg/dL Est GFR (CKD-EPI)AfAm (>60 ml/min/1.73 sqM) Est GFR (CKD-EPI)NonAf (>60 ml/min/1.73 sqM) Glucose (74-99) mg/dL Calcium (8.4-10.2) mg/dL Total Bilirubin (0.2-1.3) mg/dL AST (14-36) U/L ALT (9-52) U/L Alkaline Phosphatase (38-126) U/L Troponin I <0.012 (0.000-0.034) ng/mL Total Protein (6.3-8.2) g/dL Albumin (3.5-5.0) g/dL Urine Color Yellow Urine Appearance Clear (Clear) Urine pH 6.5 (5.0-8.0) Ur Specific [place] 1.018 (1.001-1.035) Urine Protein Negative (Negative) Urine Glucose (UA) Negative (Negative) Urine Ketones Negative (Negative) Urine Blood Negative (Negative) Urine Nitrite Negative (Negative) Urine Bilirubin Negative (Negative) Urine Urobilinogen <2.0 (<2.0) mg/dL Ur Leukocyte Esterase Large H (Negative) Urine RBC 3 (0-5) /hpf Urine WBC 30 H (0-5) /hpf Ur Squamous Epith Cells <1 (0-4) /hpf Urine Mucus Rare H (None) /hpf Disposition Clinical Impression: Syncope Disposition: HOME SELF-CARE Condition: Good Instructions (If sedation given, give patient instructions): Syncope (ED) Is patient prescribed a controlled substance at d/c from ED?: No Referrals: Scott Medrano MD [Primary Care Provider] - 1-2 days Time of Disposition: 16:52
[2018-09-29 16:26] LABS: Appearance,Urine Clear (Clear); Bilirubin,Urine Negative (Negative); Blood,Urine Negative (Negative); Color,Urine Yellow; Glucose,Urine (UA) Negative (Negative); Ketones,Urine Negative (Negative); Leukocyte Esterase,Urine Large (Negative); Mucus,Urine Rare /hpf; Nitrite,Urine Negative (Negative); PH, Urine 6.5 (5.0-8.0); Protein,Urine Negative (Negative); RBC,Urine 3 /hpf (0-5); Specific Gravity,Urine 1.018 (1.001-1.035); Squamous Epithelial Cell,Urine <1 /hpf (0-4); Urobilinogen,Urine <2.0 mg/dL (<2.0); WBC,Urine 30 /hpf (0-5)
[2018-09-29 17:08] VITALS: PULSE 80; RESP 18; TEMP 98
== END 2018-09-29 17:10 | disposition home or self-care (01) ==
LOC: EC 13:20
DX: R55 Syncope and collapse (principal); D64.9 Anemia, unspecified; G40.909 Epilepsy, unspecified, not intractable, without status epilepticus; G43.909 Migraine, unspecified, not intractable, without status migrainosus; Z85.038 Personal history of other malignant neoplasm of large intestine; Z86.14 Personal history of Methicillin resistant Staphylococcus aureus infection; Z79.899 Other long term (current) drug therapy; Z88.1 Allergy status to other antibiotic agents; Z91.048 Other nonmedicinal substance allergy status; Z88.6 Allergy status to analgesic agent; Z88.0 Allergy status to penicillin; Z88.5 Allergy status to narcotic agent; Z88.8 Allergy status to other drugs, medicaments and biological substances
CPT/HCPCS: 36415; 71046; 80053; 81001; 84484; 85025; 85610; 85730; 93005; 99284

== ENCOUNTER 2018-10-05 20:56 | Emergency (ER) | payer OTHER ==
[2018-10-05 21:02] VITALS: TEMP 97.8
[2018-10-05] MEDS ORDERED: SODIUM CHLORIDE 0.9% 1,000 ML IV ONE (21:17)
--- NOTE | 2018-10-05 21:22 | ED ---
General Adult HPI - General Chief complaint: Chest Pain Stated complaint: Chest Pain Time Seen by Provider: 10/05/18 21:03 Source: patient, family, RN notes reviewed, old records reviewed Mode of arrival: wheelchair Limitations: no limitations - History of Present Illness Initial comments: 52-year-old female history of seizure disorder, recurrent syncope presenting with syncopal episode lasting approximately 2 minutes. Patient reports preceding chest pain prior to the syncopal episode. She states this is somewhat typical of her previous episodes. She's had some with pain and some without pain. She has had workup as an outpatient and on previous admissions. She denies fever or chills. She does report a headache. She denies focal numbness or weakness. Denies any seizure-like activity. Denies dysuria or hematuria. - Related Data Home Medications Medication Instructions Recorded Confirmed Brivaracetam [Briviact] 50 mg PO BID 08/01/16 10/05/18 clonazePAM [KlonoPIN] 0.5 mg PO QAM 08/01/16 10/05/18 Topiramate [Topamax] 25 mg PO BID 04/05/17 10/05/18 Melatonin 10 mg PO HS 09/26/18 10/05/18 diphenhydrAMINE HCL [Benadryl] 25 mg PO HS 09/26/18 10/05/18 lamoTRIgine [LaMICtal] 200 mg PO BID 09/26/18 10/05/18 Acetaminophen Tab [Tylenol Tab] 1,000 mg PO Q6H PRN 10/05/18 10/05/18 Allergies Allergy/AdvReac Type Severity Reaction Status Date / Time erythromycin base Allergy Rash/Hives Verified 10/05/18 21:45 iodine Allergy Anaphylaxis Verified 10/05/18 21:45 ketorolac tromethamine Allergy Rash/Hives/ Verified 10/05/18 21:45 [From Toradol] hallucinati ons Penicillins Allergy Anaphylaxis Verified 10/05/18 21:45 azithromycin AdvReac red face Verified 10/05/18 21:45 codeine AdvReac Hallucinati Verified 10/05/18 21:45 ons lorazepam [From Ativan] AdvReac Hallucinati Verified 10/05/18 21:45 ons Review of Systems ROS Statement: Those systems with pertinent positive or pertinent negative responses have been documented in the HPI. ROS Other: All systems not noted in ROS Statement are negative. 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, swelling of left lower leg, insomnia, hx hiatal hernia, hx colon cancer, diarrhea, hx psoriasis, Leaky heart valve, episodes of "passing out" History of Any Multi-Drug Resistant Organisms: MRSA Date of last positivie culture/infection: 12/03/2010 MDRO Source:: arm and abdomen Past Surgical History: Appendectomy, Bowel Resection, Cholecystectomy, Ear Forman rgery, Hysterectomy, Orthopedic Surgery Additional Past Surgical History / Comment(s): frantz knee arthroscopy, hiatal hernia surgery, rt ear surgery to remove middle ear Past Anesthesia/Blood Transfusion Reactions: Postoperative Nausea & Vomiting (PONV) Past Psychological History: Anxiety, Panic Disorder Past Alcohol Use History: None Reported Past Drug Use History: None Reported - Past Family History Mother Family Medical History: No Reported History Additional Family Medical History / Comment(s): . General Exam Limitations: no limitations General appearance: alert, in no apparent distress Head exam: Present: atraumatic, normocephalic Eye exam: Present: normal appearance, PERRL ENT exam: Present: normal exam Neck exam: Present: normal inspection. Absent: tenderness, meningismus Respiratory exam: Present: normal lung sounds bilaterally. Absent: respiratory distress, wheezes Cardiovascular Exam: Present: regular rate, normal rhythm GI/Abdominal exam: Present: soft. Absent: distended, tenderness, guarding Extremities exam: Present: normal inspection, normal capillary refill. Absent: pedal edema, calf tenderness Neurological exam: Present: alert, oriented X3, CN II-XII intact. Absent: motor sensory deficit Psychiatric exam: Present: normal affect, normal mood Skin exam: Present: warm, dry, intact. Absent: cyanosis, diaphoretic Course Vital Signs 10/05/18 10/05/18 10/05/18 21:00 21:30 22:26 Temperature 97.8 F Pulse Rate 71 68 64 Respiratory 18 17 16 Rate Blood Pressure 149/56 150/69 147/87 O2 Sat by Pulse 100 100 100 Oximetry EKG Findings - EKG Comments: EKG Findings:: EKG: Normal sinus rhythm, right bundle branch block, left anterior fascicular block, artifact in the inferior leads no ST segment elevation, rate of 68, CT interval 170, QRS duration 144, QTC 461, no significant change compared to prior Medical Decision Making - Medical Decision Making 52-year-old female presenting with syncopal episode, atypical chest pain. EKG is sinus rhythm unchanged from baseline. Patient well-appearing with stable vitals, nonfocal neurologic exam. Workup in the emergency department reveals normal CBC, normal electrolytes, negative troponin, negative d-dimer. Patient is reevaluated, resting comfortably. Telemetry reviewed, no abnormalities. I discussed case with Dr. Medrano who is familiar with this patient. At this time patient has received no significant inpatient and outpatient workup. Patient can continue to follow has an outpatient. She has an EEG scheduled for tomorrow and a loop recorder scheduled for next week. - Lab Data Result diagrams: 10/05/18 21:27 10/05/18 21:27 Lab Results 10/05/18 10/05/18 10/05/18 Range/Units 21:27 21:27 21:27 WBC 8.5 (3.8-10.6) k/uL RBC 4.18 (3.80-5.40) m/uL Hgb 11.3 L (11.4-16.0) gm/dL Hct 34.7 (34.0-46.0) % MCV 83.0 (80.0-100.0) fL MCH 27.1 (25.0-35.0) pg MCHC 32.6 (31.0-37.0) g/dL RDW 16.0 H (11.5-15.5) % Plt Count 313 (150-450) k/uL Neutrophils % 57 % Lymphocytes % 35 % Monocytes % 4 % Eosinophils % 2 % Basophils % 0 % Neutrophils # 4.9 (1.3-7.7) k/uL Lymphocytes # 3.0 (1.0-4.8) k/uL Monocytes # 0.3 (0-1.0) k/uL Eosinophils # 0.2 (0-0.7) k/uL Basophils # 0.0 (0-0.2) k/uL Hypochromasia Moderate PT 9.5 (9.0-12.0) sec INR 0.9 (<1.2) APTT 22.2 (22.0-30.0) sec D-Dimer 0.25 (<0.60) mg/L FEU Sodium 145 (137-145) mmol/L Potassium 4.3 (3.5-5.1) mmol/L Chloride 110 H (98-107) mmol/L Carbon Dioxide 26 (22-30) mmol/L Anion Gap 9 mmol/L BUN 22 H (7-17) mg/dL Creatinine 0.80 (0.52-1.04) mg/dL Est GFR (CKD-EPI)AfAm >90 (>60 ml/min/1.73 sqM) Est GFR (CKD-EPI)NonAf 85 (>60 ml/min/1.73 sqM) Glucose 82 (74-99) mg/dL Calcium 9.8 (8.4-10.2) mg/dL Magnesium 2.1 (1.6-2.3) mg/dL Total Bilirubin 0.2 (0.2-1.3) mg/dL AST 48 H (14-36) U/L ALT 31 (9-52) U/L Alkaline Phosphatase 203 H (38-126) U/L Troponin I (0.000-0.034) ng/mL Total Protein 7.0 (6.3-8.2) g/dL Albumin 4.2 (3.5-5.0) g/dL Amylase 68 (30-110) U/L Lipase 95 (23-300) U/L 10/05/18 Range/Units 21:27 WBC (3.8-10.6) k/uL RBC (3.80-5.40) m/uL Hgb (11.4-16.0) gm/dL Hct (34.0-46.0) % MCV (80.0-100.0) fL MCH (25.0-35.0) pg MCHC (31.0-37.0) g/dL RDW (11.5-15.5) % Plt Count (150-450) k/uL Neutrophils % % Lymphocytes % % Monocytes % % Eosinophils % % Basophils % % Neutrophils # (1.3-7.7) k/uL Lymphocytes # (1.0-4.8) k/uL Monocytes # (0-1.0) k/uL Eosinophils # (0-0.7) k/uL Basophils # (0-0.2) k/uL Hypochromasia PT (9.0-12.0) sec INR (<1.2) APTT (22.0-30.0) sec D-Dimer (<0.60) mg/L FEU Sodium (137-145) mmol/L Potassium (3.5-5.1) mmol/L Chloride (98-107) mmol/L Carbon Dioxide (22-30) mmol/L Anion Gap mmol/L BUN (7-17) mg/dL Creatinine (0.52-1.04) mg/dL Est GFR (CKD-EPI)AfAm (>60 ml/min/1.73 sqM) Est GFR (CKD-EPI)NonAf (>60 ml/min/1.73 sqM) Glucose (74-99) mg/dL Calcium (8.4-10.2) mg/dL Magnesium (1.6-2.3) mg/dL Total Bilirubin (0.2-1.3) mg/dL AST (14-36) U/L ALT (9-52) U/L Alkaline Phosphatase (38-126) U/L Troponin I <0.012 (0.000-0.034) ng/mL Total Protein (6.3-8.2) g/dL Albumin (3.5-5.0) g/dL Amylase (30-110) U/L Lipase (23-300) U/L Disposition Clinical Impression: Syncope Disposition: HOME SELF-CARE Condition: Good Instructions (If sedation given, give patient instructions): Syncope (ED) Is patient prescribed a controlled substance at d/c from ED?: No Referrals: Scott Medrano MD [Primary Care Provider] - 1-2 days Time of Disposition: 23:27
[2018-10-05 21:44] LABS: Basophils % (A) 0 %; Eosinophils # (A) 0.2 k/uL (0-0.7); Eosinophils % (A) 2 %; HCT 34.7 % (34.0-46.0); HGB 11.3 gm/dL (11.4-16.0); Hypochromasia Moderate; Lymphocytes % (A) 35 %; MCH 27.1 pg (25.0-35.0); MCHC 32.6 g/dL (31.0-37.0); Mean Platelet Volume 7.8; Monocytes # (A) 0.3 k/uL (0-1.0); Monocytes % (A) 4 %; Neutrophils # (A) 4.9 k/uL (1.3-7.7); Neutrophils % (A) 57 %; Platelet Count 313 k/uL (150-450); RBC 4.18 m/uL (3.80-5.40); WBC 8.5 k/uL (3.8-10.6)
--- NOTE | 2018-10-05 21:50 | XR ---
EXAMINATION TYPE: XR chest 2V DATE OF EXAM: 10/05/2018 COMPARISON: 09/29/2018 HISTORY: Chest pain TECHNIQUE: Frontal and lateral views of the chest are obtained. FINDINGS: Heart and mediastinum are normal. Lungs are clear. Costophrenic angles are clear. There ar e chest leads. Bony thorax appears intact. IMPRESSION: Normal chest. No change.
[2018-10-05 21:51] LABS: ALT 31 U/L (9-52); AST 48 U/L (14-36); African American GFR (CKD) >90 (>60 ml/min/1.73 sqM); Albumin 4.2 g/dL (3.5-5.0); Alkaline Phosphatase 203 U/L (38-126); Amylase 68 U/L (30-110); Anion Gap 9 mmol/L; Blood Urea Nitrogen 22 mg/dL (7-17); Calcium 9.8 mg/dL (8.4-10.2); Carbon Dioxide 26 mmol/L (22-30); Chloride 110 mmol/L (98-107); Glucose 82 mg/dL (74-99); Lipase 95 U/L (23-300); Magnesium 2.1 mg/dL (1.6-2.3); Potassium 4.3 mmol/L (3.5-5.1); Sodium 145 mmol/L (137-145); Total Bilirubin 0.2 mg/dL (0.2-1.3)
[2018-10-05 21:57] LABS: D-Dimer 0.25 mg/L FEU (<0.60); INR 0.9 (<1.2); Partial Thromboplastin Time 22.2 sec (22.0-30.0); Prothrombin Time 9.5 sec (9.0-12.0)
[2018-10-05] MEDS ORDERED: METOCLOPRAMIDE 5 MG/ML 2 ML VIAL IVP STA (22:24)
[2018-10-05] MEDS ORDERED: diphenhydrAMINE 50 MG/ML 1 ML VIAL IVP STA (22:24)
[2018-10-05 23:47] VITALS: BP 133/63; PULSE 67; RESP 15
== END 2018-10-05 23:50 | disposition home or self-care (01) ==
LOC: EC 20:56
DX: R55 Syncope and collapse (principal); R07.89 Other chest pain; R51 Headache; M79.7 Fibromyalgia; G40.909 Epilepsy, unspecified, not intractable, without status epilepticus; Z85.038 Personal history of other malignant neoplasm of large intestine; Z86.14 Personal history of Methicillin resistant Staphylococcus aureus infection; Z79.899 Other long term (current) drug therapy; Z88.1 Allergy status to other antibiotic agents; Z91.048 Other nonmedicinal substance allergy status; Z88.6 Allergy status to analgesic agent; Z88.0 Allergy status to penicillin; Z88.5 Allergy status to narcotic agent; Z88.8 Allergy status to other drugs, medicaments and biological substances
CPT/HCPCS: 36415; 93005; 85379; 80053; 82150; 83690; 83735; 84484; 85025; 85610; 85730; 71046; 99285; 96374; 96375; 96361; J1200; J2765

== ENCOUNTER 2018-10-10 06:19 | Day surgery (SDC) | payer OTHER ==
[~2018-10-10 06:19] MED LIST changes: +LACTATED RINGERS 1,000 ML IV SCH; +diphenhydrAMINE 50 MG/ML 1 ML VIAL IVP ONE
[2018-10-10] MEDS ORDERED: CLINDAMYCIN 600 MG in SODIUM CHLORIDE 0.9% IRRIGATIO 250 ML IRRIGATION ONE (07:00)
[2018-10-10] MEDS ORDERED: methylPREDNISolone SOD SUCCI 125 MG/2 ML VIAL IV ONE (07:00)
[2018-10-10] MEDS ORDERED: CLINDAMYCIN 900 MG in DEXTROSE 5% IN WATER 50 ML IVPB ONE ×2 (07:00)
[2018-10-10 07:20] VITALS: RESP 20; TEMP 97.9
[2018-10-10] MEDS ORDERED: LIDOCAINE 1% INJ 10MG/ML (20 ML MDV) ONE ×2 (07:20→07:34)
[2018-10-10] MEDS ORDERED: PROPOFOL 10 MG/ML 20 ML VIAL IV ONE (07:34)
[2018-10-10] MEDS ORDERED: MIDAZOLAM 2 MG/2 ML VIAL ONE (07:34)
[2018-10-10] MEDS ORDERED: LIDOCAINE 1% INJ 10MG/ML (20 ML MDV) SQ ONE (07:57)
[2018-10-10] MEDS ORDERED: ACETAMINOPHEN TAB 325 MG TAB PO PRN (08:06)
--- NOTE | 2018-10-10 08:13 | P.PCN ---
Date of Procedure: 10/10/18 Preoperative Diagnosis: Unexplained syncope Postoperative Diagnosis: The same Procedure(s) Performed: Insertion of the loop recorder Description of Procedure: Patient was brought to the lab in a fasting state. Patient is prepped and draped in the usual fashion. IV prophylactic antibiotics is initiated. Department of anesthesia is provided IV anesthesia and analgesia. The skin and the left third intercostal space is infiltrated with lidocaine, Close to mid sternal line. In incision was made in the skin and the loop recorder was inserted in the usual fashion. Patient tolerated the procedure well. 2 stay silk sutures were applied for the closure of the incision. Patient tolerated the procedure well. The sensing was about 0.45 mV. The device is programmed to lower rate of 30 high rate of 170 . The usual settings were programmed or syncope. Follow-up with the Dr. Winn in about one week time. Patient will be discharged home in 2 hours. She will follow home medications plus Unasyn 150 mg 3 times a day for 3 days.
[2018-10-10 10:43] VITALS: BP 132/60; PULSE 60
== END 2018-10-10 10:35 | disposition home or self-care (01) ==
LOC: CATHEP 06:19
PROVIDERS: ATTEND Internal Medicine Cardiovascular Disease
DX: R55 Syncope and collapse (principal); R00.2 Palpitations; I45.2 Bifascicular block; I25.10 Atherosclerotic heart disease of native coronary artery without angina pectoris; R60.9 Edema, unspecified; R56.9 Unspecified convulsions; R35.1 Nocturia; F41.9 Anxiety disorder, unspecified; Z79.899 Other long term (current) drug therapy; Z88.1 Allergy status to other antibiotic agents; Z88.5 Allergy status to narcotic agent; Z88.0 Allergy status to penicillin; Z88.8 Allergy status to other drugs, medicaments and biological substances; Z91.048 Other nonmedicinal substance allergy status; Z97.2 Presence of dental prosthetic device (complete) (partial)
CPT/HCPCS: 33285; C1764; J2250; J2001; J2704

== ENCOUNTER 2018-11-09 02:02 | Emergency (ER) | payer OTHER ==
[2018-11-09] MEDS ORDERED: diphenhydrAMINE 50 MG/ML 1 ML VIAL IVP STA (02:27)
[2018-11-09] MEDS ORDERED: SODIUM CHLORIDE 0.9% 1,000 ML IV STA (02:27)
[2018-11-09] MEDS ORDERED: ONDANSETRON 4 MG/2 ML VIAL IVP STA (02:28)
--- NOTE | 2018-11-09 02:47 | ED ---
General Adult HPI - General Chief complaint: Headache Stated complaint: Headache Time Seen by Provider: 11/09/18 02:19 Source: family Mode of arrival: ambulatory Limitations: no limitations - History of Present Illness Initial comments: Dictation was produced using [employer] dictation software. please excuse any grammatical, word or spelling errors. Chief Complaint: 52-year-old female with past medical history of migraines, fibromyalgia presents with headache. History of Present Illness: 52-year-old female presents with chief complaint of headache. Patient states her headache and proximal to 1 hour prior to arrival. She states this is the worse headache she's ever had an a while. Patient has a history of migraines. She says her headaches are similar to her headaches in the past however just much worse. She states is throbbing in all cranial. Patient has been evaluated for headaches in the past. She did have an MRA that showed 1 mm aneurysm. Patient denies any focal neurologic deficits. She does report intense photophobia. She states her symptoms were maximal in onset within 1 hour. The ROS documented in this emergency department record has been reviewed and confirmed by me. Those systems with pertinent positive or negative responses have been documented in the HPI. All other systems are other negative and/or noncontributory. PHYSICAL EXAM: General Impression: Alert and oriented x3, acute distress secondary to pain HEENT: Normocephalic atraumatic, extra-ocular movements intact, pupils equal and reactive to light bilaterally, mucous membranes moist. Cardiovascular: Heart regular rate and rhythm, S1&S2 audible, no murmurs, rubs or gallops Chest: Lungs clear to auscultation bilaterally, no rhonchi, no wheeze, no rales Abdomen: Bowel sounds present, abdomen soft, non-tender, non-distended, no organomegaly Musculoskeletal: Pulses present and equal in all extremities, no peripheral ernesto ma Motor: no focal deficits noted Neurological: CN II-XII grossly intact, no focal motor or sensory deficits noted Skin: Intact with no visualized rashes Psych: Normal affect and mood ED course: 52-year-old female presents with headache with history of chronic headaches. She does have a small 1 mm aneurysm that was seen on an MRI and outside facility. She does have some characteristics of subarachnoid bleed. She is within the 6 hours of symptom onset. Vital signs upon arrival are within acceptable limits. Patient appears to be in acute distress. She has no neuro deficits.Patient given headache cocktail. She was reevaluated and continued to have symptoms. Patient given another headache cocktail containing different medications with persistent symptoms. Patient given some Dilaudid with better control her symptoms. Patient states she's an appointment with a neurologist later today. She requests to be discharged. At this point patient is well- appearing. She still continues to have mild headache however slightly better than when she arrived. She continues to have no neuro deficits. Patient feels that the pain is more controlled. Patient clear for discharge. Return par ameters discussed. She is urged to follow-up with her neurologist later today. - Related Data Home Medications Medication Instructions Recorded Confirmed Brivaracetam [Briviact] 50 mg PO BID 08/01/16 11/09/18 clonazePAM [KlonoPIN] 0.5 mg PO QAM 08/01/16 11/09/18 Melatonin 10 mg PO HS 09/26/18 11/09/18 diphenhydrAMINE HCL [Benadryl] 25 mg PO HS 09/26/18 11/09/18 lamoTRIgine [LaMICtal] 200 mg PO BID 09/26/18 11/09/18 Acetaminophen Tab [Tylenol Tab] 1,000 mg PO Q6H PRN 10/05/18 11/09/18 ALPRAZolam [Xanax] 0.25 mg PO TID PRN 10/10/18 11/09/18 Topiramate [Topamax] 50 mg PO DAILY 11/09/18 11/09/18 Allergies Allergy/AdvReac Type Severity Reaction Status Date / Time erythromycin base Allergy Rash/Hives Verified 10/05/18 21:45 iodine Allergy Anaphylaxis Verified 10/05/18 21:45 ketorolac tromethamine Allergy Rash/Hives/ Verified 10/05/18 21:45 [From Toradol] hallucinati ons Penicillins Allergy Anaphylaxis Verified 10/05/18 21:45 azithromycin AdvReac red face Verified 10/05/18 21:45 codeine AdvReac Hallucinati Verified 10/05/18 21:45 ons lorazepam [From Ativan] AdvReac Hallucinati Verified 10/05/18 21:45 ons Review of Systems ROS Statement: Those systems with pertinent positive or pertinent negative responses have been documented in the HPI. ROS Other: All systems not noted in ROS Statement are negative. 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, swelling of left lower leg, insomnia, hx hiatal hernia, hx colon cancer, diarrhea, hx psoriasis, Leaky heart valve, episodes of "passing out" History of Any Multi-Drug Resistant Organisms: MRSA Date of last positivie culture/infection: 12/03/2010 MDRO Source:: arm and abdomen Past Surgical History: Appendectomy, Bowel Resection, Cholecystectomy, Ear Surgery, Hysterectomy, Orthopedic Surgery Additional Past Surgical History / Comment(s): frantz knee arthroscopy, hiatal hernia surgery, rt ear surgery to remove middle ear Past Anesthesia/Blood Transfusion Reactions: Postoperative Nausea & Vomiting (PONV) Past Psychological History: Anxiety, Panic Disorder Past Alcohol Use History: None Reported Past Drug Use History: None Reported - Past Family History Mother Family Medical History: No Reported History Additional Family Medical History / Comment(s): . General Exam Limitations: no limitations Course Vital Signs 11/09/18 11/09/18 02:13 04:23 Temperature 97.9 F 97.9 F Pulse Rate 66 62 Respiratory 20 18 Rate Blood Pressure 117/69 95/46 O2 Sat by Pulse 99 97 Oximetry Medical Decision Making - Lab Data Result diagrams: 11/09/18 02:46 11/09/18 02:46 Lab Results 11/09/18 11/09/18 11/09/18 Range/Units 02:46 02:46 02:46 WBC 7.7 (3.8-10.6) k/uL RBC 4.08 (3.80-5.40) m/uL Hgb 10.6 L (11.4-16.0) gm/dL Hct 33.8 L (34.0-46.0) % MCV 82.8 (80.0-100.0) fL MCH 26.0 (25.0-35.0) pg MCHC 31.4 (31.0-37.0) g/dL RDW 15.8 H (11.5-15.5) % Plt Count 282 (150-450) k/uL Neutrophils % 57 % Lymphocytes % 35 % Monocytes % 5 % Eosinophils % 2 % Basophils % 0 % Neutrophils # 4.4 (1.3-7.7) k/uL Lymphocytes # 2.6 (1.0-4.8) k/uL Monocytes # 0.4 (0-1.0) k/uL Eosinophils # 0.2 (0-0.7) k/uL Basophils # 0.0 (0-0.2) k/uL PT 9.5 (9.0-12.0) sec INR 0.9 (<1.2) APTT 23.2 (22.0-30.0) sec Sodium 143 (137-145) mmol/L Potassium 3.9 (3.5-5.1) mmol/L Chloride 108 H (98-107) mmol/L Carbon Dioxide 26 (22-30) mmol/L Anion Gap 9 mmol/L BUN 24 H (7-17) mg/dL Creatinine 0.85 (0.52-1.04) mg/dL Est GFR (CKD-EPI)AfAm >90 (>60 ml/min/1.73 sqM) Est GFR (CKD-EPI)NonAf 79 (>60 ml/min/1.73 sqM) Glucose 92 (74-99) mg/dL Calcium 9.6 (8.4-10.2) mg/dL Disposition Clinical Impression: Acute headache Disposition: HOME SELF-CARE Condition: Good Instructions (If sedation given, give patient instructions): Acute Headache (ED) Is patient prescribed a controlled substance at d/c from ED?: No Referrals: Scott Medrano MD [Primary Care Provider] - 1-2 days Time of Disposition: 05:20
[2018-11-09 02:56] LABS: Basophils % (A) 0 %; Eosinophils # (A) 0.2 k/uL (0-0.7); Eosinophils % (A) 2 %; HCT 33.8 % (34.0-46.0); HGB 10.6 gm/dL (11.4-16.0); Lymphocytes # (A) 2.6 k/uL (1.0-4.8); Lymphocytes % (A) 35 %; MCHC 31.4 g/dL (31.0-37.0); MCV 82.8 fL (80.0-100.0); Mean Platelet Volume 7.2; Monocytes # (A) 0.4 k/uL (0-1.0); Monocytes % (A) 5 %; Neutrophils # (A) 4.4 k/uL (1.3-7.7); Neutrophils % (A) 57 %; Platelet Count 282 k/uL (150-450); RBC 4.08 m/uL (3.80-5.40); RDW 15.8 % (11.5-15.5); WBC 7.7 k/uL (3.8-10.6)
--- NOTE | 2018-11-09 03:00 | CT ---
EXAM: CT Head Without Intravenous Contrast CLINICAL HISTORY: ITS.REASON CT Reason: Pain TECHNIQUE: Axial computed tomography images of the head/brain without intravenous contrast. CTDI is 49 mGy and DLP is 1066 mGy-cm. This CT exam was performed using one or more of the following dose reduction techniques: automated exposure control, adjustment of the mA and/or kV according to patient size, and/or use of iterative reconstruction technique. COMPARISON: 08/01/16 CT head FINDINGS: Brain: No hemorrhage, large hypodensity, or mass effect. Ventricles: No hydrocephalus. Bones/joints: Unremarkable. Soft tissues: Unremarkable. Sinuses: Unremarkable. Mastoid air cells: Clear. Right-sided mastoidectomy. IMPRESSION: No acute hemorrhage, hydrocephalus, or mass effect.
[2018-11-09 03:05] LABS: African American GFR (CKD) >90 (>60 ml/min/1.73 sqM); Anion Gap 9 mmol/L; Blood Urea Nitrogen 24 mg/dL (7-17); Calcium 9.6 mg/dL (8.4-10.2); Carbon Dioxide 26 mmol/L (22-30); Chloride 108 mmol/L (98-107); Glucose 92 mg/dL (74-99); Potassium 3.9 mmol/L (3.5-5.1); Sodium 143 mmol/L (137-145)
[2018-11-09 03:08] LABS: INR 0.9 (<1.2); Partial Thromboplastin Time 23.2 sec (22.0-30.0); Prothrombin Time 9.5 sec (9.0-12.0)
[2018-11-09] MEDS ORDERED: DEXAMETHASONE SOD PHOSPHATE 10 MG/ML 1 ML VIAL IV STA (03:11)
[2018-11-09 04:25] VITALS: RESP 18
[2018-11-09] MEDS ORDERED: SUMAtriptan SUCCINATE 6 MG/0.5 ML VIAL SQ STA (04:27)
[2018-11-09] MEDS ORDERED: SODIUM CHLORIDE 0.9% 500 ML IV STA (04:40)
[2018-11-09] MEDS ORDERED: HYDROmorphone 0.5 MG/0.5 ML SYRINGE IVP STA (05:18)
[2018-11-09 05:46] VITALS: BP 152/77; PULSE 64; TEMP 97.7
== END 2018-11-09 05:40 | disposition home or self-care (01) ==
LOC: EC 02:02
DX: R51 Headache (principal); H53.149 Visual discomfort, unspecified; M79.7 Fibromyalgia; G40.909 Epilepsy, unspecified, not intractable, without status epilepticus; G47.00 Insomnia, unspecified; Z85.038 Personal history of other malignant neoplasm of large intestine; Z86.14 Personal history of Methicillin resistant Staphylococcus aureus infection; Z86.69 Personal history of other diseases of the nervous system and sense organs; Z79.899 Other long term (current) drug therapy; Z88.1 Allergy status to other antibiotic agents; Z91.048 Other nonmedicinal substance allergy status; Z88.6 Allergy status to analgesic agent; Z88.0 Allergy status to penicillin; Z88.5 Allergy status to narcotic agent; Z88.8 Allergy status to other drugs, medicaments and biological substances
CPT/HCPCS: 99284; 96374; 96375 ×3; 96361; 96372; 36415; 80048; 85025; 85610; 85730; 70450; J3030; J1200; J1100; J2405; J1170

== ENCOUNTER 2018-11-13 20:39 | Emergency (ER) | payer OTHER ==
[2018-11-13] MEDS ORDERED: METOCLOPRAMIDE 5 MG/ML 2 ML VIAL IVP STA (22:11)
[2018-11-13] MEDS ORDERED: SODIUM CHLORIDE 0.9% 500 ML 500 ML IV STA (22:11)
[2018-11-13] MEDS ORDERED: HYDROmorphone 0.5 MG/0.5 ML SYRINGE IVP STA (22:11)
[2018-11-13] MEDS ORDERED: diphenhydrAMINE 50 MG/ML 1 ML VIAL IVP STA (22:11)
--- NOTE | 2018-11-13 23:02 | ED ---
General Adult HPI - General Chief complaint: Headache Stated complaint: Headache Time Seen by Provider: 11/13/18 21:18 Source: patient, family, RN notes reviewed, old records reviewed Mode of arrival: ambulatory Limitations: no limitations - History of Present Illness Initial comments: 52-year-old female patient past medical history significant for headache disorder presents to ED if headache. Patient reports she has had this headache all day. Describes it as a headache that is typical for her. Patient follows up with neurology for these headaches. Patient states that this headache is identical headache that she explains 4 days ago to present to this ER. At that time patient had computed tomography scan that was negative. Denies any red flag symptoms. Systemic: Pt denies fatigue, fever/chills, rash. Pt denies weakness, night sweats, weight loss. Neuro: Pt denies visual disturbances, syncope or pre-syncope. HEENT: Pt denies ocular discharge or irritation, otalgia, rhinorrhea, pharyngitis or notable lymphadenopathy. Cardiopulmonary: Pt denies chest pain, SOB, heart palpitations, dyspnea on exertion. Abdominal/GI: Pt denies abdominal pain, n/v/d. : Pt denies dysuria, burning w/ urination, frequency/urgency. Denies new onset urinary or bowel incontinence. MSK: Pt denies myalgia, loss of strength or function in extremities. Neuro: Pt denies new onset weakness, paresthesias. - Related Data Home Medications Medication Instructions Recorded Confirmed Brivaracetam [Briviact] 50 mg PO BID 08/01/16 11/13/18 clonazePAM [KlonoPIN] 0.5 mg PO BID 08/01/16 11/13/18 diphenhydrAMINE HCL [Benadryl] 25 mg PO HS 09/26/18 11/13/18 lamoTRIgine [LaMICtal] 200 mg PO BID 09/26/18 11/13/18 Acetaminophen Tab [Tylenol Tab] 1,000 mg PO Q6H PRN 10/05/18 11/13/18 ALPRAZolam [Xanax] 0.25 mg PO TID PRN 10/10/18 11/13/18 Melatonin 25mg 25 mg PO HS 11/13/18 11/13/18 Topiramate [Trokendi Xr] 100 mg PO DAILY 11/13/18 11/13/18 Allergies Allergy/AdvReac Type Severity Reaction Status Date / Time erythromycin base Allergy Rash/Hives Verified 11/13/18 21:22 iodine Allergy Anaphylaxis Verified 11/13/18 21:22 ketorolac tromethamine Allergy Rash/Hives/ Verified 11/13/18 21:22 [From Toradol] hallucinati ons Penicillins Allergy Anaphylaxis Verified 11/13/18 21:22 azithromycin AdvReac red face Verified 11/13/18 21:22 codeine AdvReac Hallucinati Verified 11/13/18 21:22 ons lorazepam [From Ativan] AdvReac Hallucinati Verified 11/13/18 21:22 ons Review of Systems ROS Statement: Those systems with pertinent positive or pertinent negative responses have been documented in the HPI. ROS Other: All systems not noted in ROS Statement are negative. 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, swelling of left lower leg, insomnia, hx hiatal hernia, hx colon cancer, diarrhea, hx psoriasis, Leaky heart valve, episodes of "passing out" History of Any Multi-Drug Resistant Organisms: MRSA Date of last positivie culture/infection: 12/03/2010 MDRO Source:: arm and abdomen Past Surgical History: Appendectomy, Bowel Resection, Cholecystectomy, Ear Surgery, Hysterectomy, Orthopedic Surgery Additional Past Surgical History / Comment(s): frantz knee arthroscopy, hiatal h ernia surgery, rt ear surgery to remove middle ear Past Anesthesia/Blood Transfusion Reactions: Postoperative Nausea & Vomiting (PONV) Past Psychological History: Anxiety, Panic Disorder Past Alcohol Use History: None Reported Past Drug Use History: None Reported - Past Family History Mother Family Medical History: No Reported History Additional Family Medical History / Comment(s): . General Exam - General Exam Comments Initial Comments: Constitutional: NAD, AOX3, Pt has pleasant affect. HEENT: NC/AT, trachea midline, neck supple, no lymphadenopathy. Posterior pharynx non erythematous, without exudates. External ears appear normal, without discharge. Mucous membranes moist. Eyes PERRLA, EOM intact. There is no scleral icterus. No pallor noted. Cardiopulmonary: RRR, no murmurs, rubs or gallops, no JVD noted. Lungs CTAB in anterior and posterior moreno. No peripheral edema. Abdominal exam: Abdomen soft and non-distended. Abdomen non-tender to palpation in all 4 quadrants. Bowel sounds active in LLQ. No hepatosplenomegaly. No ecchymosis Neuro: CN II-XII intact. No nuchal rigidity. No raccon eyes, no julien sign, no hemotympanum. No cervical spinal tenderness. MSK: No posterior calf tenderness bilaterally, homans sign negative bilaterally. Posterior tibialis and radial pulse +2 bilaterally. Sensation intact in upper and lower extremities. Full active ROM in upper and lower extremities, 5/5 stregnth. Limitations: no limitations Course Vital Signs 11/13/18 20:52 Temperature 97.9 F Pulse Rate 78 Respiratory 20 Rate Blood Pressure 126/67 O2 Sat by Pulse 99 Oximetry Medical Decision Making - Medical Decision Making 52-year-old female patient presents ED chief complaint of headache denies any red flag symptoms. Patient will signs stable, afebrile. Physical exam didn't display acute pathology. Neurologic exam within normal limits. Patient is offered CT, declined due to radiation burden. Patient was administered headache cocktail. Patient headache improved. Patient will discharge, follow up with neurologist. Case discussed with Dr. Calvin. Disposition Clinical Impression: Acute headache Disposition: HOME SELF-CARE Condition: Stable Instructions (If sedation given, give patient instructions): Acute Headache (ED) Additional Instructions: Patient to adhere to previously discussed treatment plan and will take medication(s) as directed. Patient to follow up with PCP in 1-2 days. Patient to return to ED if symptoms do not improve. Follow-up with neurologist tomorrow. Return to ER if condition worsens. Is patient prescribed a controlled substance at d/c from ED?: No Referrals: Scott Medrano MD [Primary Care Provider] - 1-2 days
[2018-11-13 23:43] VITALS: BP 121/60; PULSE 63; RESP 18; TEMP 97.8
== END 2018-11-13 23:30 | disposition home or self-care (01) ==
LOC: EC 20:39
DX: R51 Headache (principal); G40.909 Epilepsy, unspecified, not intractable, without status epilepticus; F41.0 Panic disorder [episodic paroxysmal anxiety]; Z88.0 Allergy status to penicillin; Z88.1 Allergy status to other antibiotic agents; Z88.5 Allergy status to narcotic agent; Z88.6 Allergy status to analgesic agent; Z88.8 Allergy status to other drugs, medicaments and biological substances; Z91.048 Other nonmedicinal substance allergy status; Z79.899 Other long term (current) drug therapy; Z86.14 Personal history of Methicillin resistant Staphylococcus aureus infection; Z86.69 Personal history of other diseases of the nervous system and sense organs; Z85.038 Personal history of other malignant neoplasm of large intestine; Z90.49 Acquired absence of other specified parts of digestive tract; Z53.29 Procedure and treatment not carried out because of patient's decision for other reasons
CPT/HCPCS: 99283; 96374; 96375 ×2; 96361; J1200; J2765; J1170

== ENCOUNTER 2018-11-18 00:31 | Emergency (ER) | payer OTHER ==
[2018-11-18 00:43] VITALS: TEMP 98.3
[2018-11-18] MEDS ORDERED: SODIUM CHLORIDE 0.9% 1,000 ML IV ONE (01:26)
[2018-11-18] MEDS ORDERED: HYDROmorphone 1 MG/ML 1 ML SYRINGE IVP STA (01:26)
[2018-11-18] MEDS ORDERED: diphenhydrAMINE 50 MG/ML 1 ML VIAL IVP STA (01:26)
[2018-11-18] MEDS ORDERED: DEXAMETHASONE SOD PHOSPHATE 10 MG/ML 1 ML VIAL IV STA (01:26)
--- NOTE | 2018-11-18 02:45 | ED ---
Allergic Reaction HPI - General Chief complaint: Allergic Reaction Stated complaint: Allergic reaction Time Seen by Provider: 11/18/18 00:50 Source: patient Mode of arrival: EMS Limitations: no limitations - History of Present Illness Initial Comments: 52-year-old female patient is brought to the emergency department today for evaluation of headache and possible reaction to medication. Patient took Fioricet for the first time today. Parent reports that approximately 30 minutes after taking the medication she became very anxious and then started having involuntary movements of her arms and legs. They did call EMS and patient was given Benadryl. During my evaluation patient reports that she is unable to stop moving her limbs. She is reporting severe migraine headache. Denies blurred or double vision. Denies nausea or vomiting. States that she does have a history of migraine headaches and her headache feels similar to her usual migraine pattern. She denies numbness or tingling to the extremities. Denies any pain or muscle cramping. Patient denies any recent rash, fever, chills, shortness breath, chest pain, abdominal pain, diarrhea, constipation, back pain, numbness, tingling, dizziness, weakness, hematuria, dysuria, urinary urgency, urinary frequency, or any other complaints. - Related Data Home Medications Medication Instructions Recorded Confirmed Brivaracetam [Briviact] 50 mg PO BID 08/01/16 11/13/18 clonazePAM [KlonoPIN] 0.5 mg PO BID 08/01/16 11/13/18 diphenhydrAMINE HCL [Benadryl] 25 mg PO HS 09/26/18 11/13/18 lamoTRIgine [LaMICtal] 200 mg PO BID 09/26/18 11/13/18 Acetaminophen Tab [Tylenol Tab] 1,000 mg PO Q6H PRN 10/05/18 11/13/18 ALPRAZolam [Xanax] 0.25 mg PO TID PRN 10/10/18 11/13/18 Melatonin 25mg 25 mg PO HS 11/13/18 11/13/18 Topiramate [Trokendi Xr] 100 mg PO DAILY 11/13/18 11/13/18 Allergies Allergy/AdvReac Type Severity Reaction Status Date / Time erythromycin base Allergy Rash/Hives Verified 11/13/18 21:22 iodine Allergy Anaphylaxis Verified 11/13/18 21:22 ketorolac tromethamine Allergy Rash/Hives/ Verified 11/13/18 21:22 [From Toradol] hallucinati ons Penicillins Allergy Anaphylaxis Verified 11/13/18 21:22 acetaminophen [From Fioricet] AdvReac Unknown Verified 11/18/18 02:07 azithromycin AdvReac red face Verified 11/13/18 21:22 butalbital [From Fioricet] AdvReac Unknown Verified 11/18/18 02:07 caffeine [From Fioricet] AdvReac Unknown Verified 11/18/18 02:07 codeine AdvReac Hallucinati Verified 11/13/18 21:22 ons lorazepam [From Ativan] AdvReac Hallucinati Verified 11/13/18 21:22 ons Review of Systems ROS Statement: Those systems with pertinent positive or pertinent negative responses have been documented in the HPI. ROS Other: All systems not noted in ROS Statement are negative. 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, swelling of left lower leg, insomnia, hx hiatal hernia, hx colon cancer, diarrhea, hx psoriasis, Leaky heart valve, episodes of "passing out" History of Any Multi-Drug Resistant Organisms: MRSA Date of last positivie culture/infection: 12/03/2010 MDRO Source:: arm and abdomen Past Surgical History: Appendectomy, Bowel Resection, Cholecystectomy, Ear Surgery, Hysterectomy, Orthopedic Surgery Additional Past Surgical History / Comment(s): frantz knee arthroscopy, hiatal hernia surgery, rt ear surgery to remove middle ear Past Anesthesia/Blood Transfusion Reactions: Postoperative Nausea & Vomiting (PONV) Past Psychological History: Anxiety, Panic Disorder Smoking Status: Never smoker Past Alcohol Use History: None Reported Past Drug Use History: None Reported - Past Family History Mother Family Medical History: No Reported History Additional Family Medical History / Comment(s): . General Exam Limitations: no limitations General appearance: alert, in no apparent distress, other (Physical well- developed, well-nourished adult female patient in no acute distress. Vital signs upon presentation are temperature 98.3F, pulse 96, respirations 18, pulse ox 98% on room air.) Eye exam: Present: normal appearance, PERRL, EOMI. Absent: scleral icterus, conjunctival injection, nystagmus, periorbital swelling Respiratory exam: Present: normal lung sounds bilaterally. Absent: respiratory distress, wheezes, rales, rhonchi, stridor Cardiovascular Exam: Present: regular rate, normal rhythm, normal heart sounds. Absent: systolic murmur, diastolic murmur, rubs, gallop, clicks GI/Abdominal exam: Present: soft, normal bowel sounds. Absent: distended, tenderness, guarding, rebound, rigid Neurological exam: Present: alert, oriented X3, CN II-XII intact, other (Patient exhibiting involuntary movements of the upper and lower extremities. ) Psychiatric exam: Present: normal affect, normal mood Skin exam: Present: warm, dry, intact, normal color. Absent: rash Course Vital Signs 11/18/18 11/18/18 00:38 02:43 Temperature 98.3 F Pulse Rate 96 80 Respiratory 18 17 Rate Blood Pressure 116/65 O2 Sat by Pulse 98 95 Oximetry Medical Decision Making - Medical Decision Making 52-year-old female patient presents to the emergency department today for evaluation of headache and possible medication reaction. Patient was exhibiting involuntary movements of the upper and lower extremities after taking Fioricet for the first time. IV was started, patient was given IV fluids and medications including Benadryl, Decadron, and pain medication. Upon reevaluation patient symptoms did improve. She reported improvement of her headache. Involuntary movements had ceased. She is reevaluated and was neurologically intact with no focal deficits. She'll be discharged home at this time to [facility]. She is urged to discontinue use of Fioricet until further evaluation by her doctor. Return parameters were discussed in detail. She verbalizes understanding and agrees with this plan. Disposition Clinical Impression: Medication reaction, Migraine headache Disposition: HOME SELF-CARE Condition: Good Instructions (If sedation given, give patient instructions): Migraine Headache (ED) Additional Instructions: Increase fluids. Rest. Follow-up with your primary care physician for recheck in 1-2 days. Return to the emergency department immediately for any new, worsening, or concerning symptoms. Is patient prescribed a controlled substance at d/c from ED?: No Referrals: Scott Medrano MD [Primary Care Provider] - 1-2 days Time of Disposition: 02:45
[2018-11-18 02:51] VITALS: BP 116/65; PULSE 80; RESP 17
== END 2018-11-18 03:11 | disposition home or self-care (01) ==
LOC: EC 00:31
DX: G43.909 Migraine, unspecified, not intractable, without status migrainosus (principal); T39.1X5A Adverse effect of 4-Aminophenol derivatives, initial encounter; T42.3X5A Adverse effect of barbiturates, initial encounter; G40.909 Epilepsy, unspecified, not intractable, without status epilepticus; F41.0 Panic disorder [episodic paroxysmal anxiety]; Z88.0 Allergy status to penicillin; Z88.1 Allergy status to other antibiotic agents; Z88.5 Allergy status to narcotic agent; Z88.6 Allergy status to analgesic agent; Z88.8 Allergy status to other drugs, medicaments and biological substances; Z91.048 Other nonmedicinal substance allergy status; Z79.899 Other long term (current) drug therapy; Z86.14 Personal history of Methicillin resistant Staphylococcus aureus infection
CPT/HCPCS: 99284; 96374; 96375 ×2; 96361; J1200; J1100; J1170

== ENCOUNTER 2018-11-24 22:38 | Emergency (ER) | payer OTHER ==
[2018-11-24 22:43] VITALS: RESP 18; TEMP 97.6
[2018-11-24] MEDS ORDERED: diphenhydrAMINE 50 MG/ML 1 ML VIAL IVP STA (23:02)
[2018-11-24] MEDS ORDERED: HYDROmorphone 0.5 MG/0.5 ML SYRINGE IVP STA (23:02)
[2018-11-24] MEDS ORDERED: SODIUM CHLORIDE 0.9% 500 ML 500 ML IV STA (23:02)
[2018-11-24] MEDS ORDERED: ONDANSETRON 4 MG/2 ML VIAL IVP STA (23:02)
--- NOTE | 2018-11-24 23:34 | ED ---
General Adult HPI - General Chief complaint: Headache Stated complaint: Migraine Time Seen by Provider: 11/24/18 22:50 Source: patient, RN notes reviewed, old records reviewed Mode of arrival: wheelchair Limitations: no limitations - History of Present Illness Initial comments: 52-year-old male patient past medical history of migraine headaches for CDU chi ef complaint migraine headache. Patient reports that she has headache in her occipital lobe which is typical for her. Patient reports this began earlier today, reports insidious onset, denies thunderclap headache. Patient denies worse headache of life. Patient denied loss of consciousness. Patient follows up with her neurologist regularly, patient is scheduled for a occipital nerve block on Tuesday. Denies any other complaints at this time. Systemic: Pt denies fatigue, fever/chills, rash. Pt denies weakness, night sweats, weight loss. Neuro: Pt denies visual disturbances, syncope or pre-syncope. HEENT: Pt denies ocular discharge or irritation, otalgia, rhinorrhea, pharyngitis or notable lymphadenopathy. Cardiopulmonary: Pt denies chest pain, SOB, heart palpitations, dyspnea on exer tion. Abdominal/GI: Pt denies abdominal pain, n/v/d. : Pt denies dysuria, burning w/ urination, frequency/urgency. Denies new onset urinary or bowel incontinence. MSK: Pt denies myalgia, loss of strength or function in extremities. Neuro: Pt denies new onset weakness, paresthesias. - Related Data Home Medications Medication Instructions Recorded Confirmed Brivaracetam [Briviact] 50 mg PO BID 08/01/16 11/13/18 clonazePAM [KlonoPIN] 0.5 mg PO BID 08/01/16 11/13/18 diphenhydrAMINE HCL [Benadryl] 25 mg PO HS 09/26/18 11/13/18 lamoTRIgine [LaMICtal] 200 mg PO BID 09/26/18 11/13/18 Acetaminophen Tab [Tylenol Tab] 1,000 mg PO Q6H PRN 10/05/18 11/13/18 ALPRAZolam [Xanax] 0.25 mg PO TID PRN 10/10/18 11/13/18 Melatonin 25mg 25 mg PO HS 11/13/18 11/13/18 Topiramate [Trokendi Xr] 100 mg PO DAILY 11/13/18 11/13/18 Allergies Allergy/AdvReac Type Severity Reaction Status Date / Time erythromycin base Allergy Rash/Hives Verified 11/24/18 22:43 iodine Allergy Anaphylaxis Verified 11/24/18 22:43 ketorolac tromethamine Allergy Rash/Hives/ Verified 11/24/18 22:43 [From Toradol] hallucinati ons Penicillins Allergy Anaphylaxis Verified 11/24/18 22:43 acetaminophen [From Fioricet] AdvReac Unknown Verified 11/24/18 22:43 azithromycin AdvReac red face Verified 11/24/18 22:43 butalbital [From Fioricet] AdvReac Unknown Verified 11/24/18 22:43 caffeine [From Fioricet] AdvReac Unknown Verified 11/24/18 22:43 codeine AdvReac Hallucinati Verified 11/24/18 22:43 ons lorazepam [From Ativan] AdvReac Hallucinati Verified 11/24/18 22:43 ons Review of Systems ROS Statement: Those systems with pertinent positive or pertinent negative responses have been documented in the HPI. ROS Other: All systems not noted in ROS Statement are negative. 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, swelling of left lower leg, insomnia, hx hiatal hernia, hx colon cancer, diarrhea, hx psoriasis, Leaky heart valve, episodes of "passing out" History of Any Multi-Drug Resistant Organisms: MRSA Date of last positivie culture/infection: 12/03/2010 MDRO Source:: arm and abdomen Past Surgical History: Appendectomy, Bowel Resection, Cholecystectomy, Ear Surgery, Hysterectomy, Orthopedic Surgery Additional Past Surgical History / Comment(s): frantz knee arthroscopy, hiatal hernia surgery, rt ear surgery to remove middle ear Past Anesthesia/Blood Transfusion Reactions: Postoperative Nausea & Vomiting (PONV) Past Psychological History: Anxiety, Panic Disorder Smoking Status: Never smoker Past Alcohol Use History: None Reported Past Drug Use History: None Reported - Past Family History Mother Family Medical History: No Reported History Additional Family Medical History / Comment(s): . General Exam - General Exam Comments Initial Comments: Constitutional: NAD, AOX3, Pt has pleasant affect. HEENT: NC/AT, trachea midline, neck supple, no lymphadenopathy. Posterior pharynx non erythematous, without exudates. External ears appear normal, without discharge. Mucous membranes moist. Eyes PERRLA, EOM intact. There is no scleral icterus. No pallor noted. Cardiopulmonary: RRR, no murmurs, rubs or gallops, no JVD noted. Lungs CTAB in anterior and posterior moreno. No peripheral edema. Abdominal exam: Abdomen soft and non-distended. Abdomen non-tender to palpation in all 4 quadrants. Bowel sounds active in LLQ. No hepatosplenomegaly. No ecchymosis Neuro: CN II-XII intact. No nuchal rigidity. No raccon eyes, no julien sign, no hemotympanum. No cervical spinal tenderness. MSK: No posterior calf tenderness bilaterally, homans sign negative bilaterally. Posterior tibialis and radial pulse +2 bilaterally. Sensation intact in upper and lower extremities. Full active ROM in upper and lower extremities, 5/5 stregnth. Limitations: no limitations Course Vital Signs 11/24/18 22:39 Temperature 97.6 F Pulse Rate 69 Respiratory 18 Rate Blood Pressure 128/76 O2 Sat by Pulse 99 Oximetry Medical Decision Making - Medical Decision Making 52-year-old female patient with chief complaint of migraine headache. Patient reports this is identical migraine headache she has had in the past. Patient vital signs stable, afebrile. Physical exam displayed normal neurologic exam. Patient denied CT. Patient headache resolved with headache cocktail patient discharged, will follow-up with neurologist as scheduled on Tuesday, return precautions discussed. Case discussed with Dr. Hernandez. Disposition Clinical Impression: Headache Disposition: HOME SELF-CARE Condition: Stable Instructions (If sedation given, give patient instructions): Acute Headache (ED) Additional Instructions: Patient to adhere to previously discussed treatment plan and will take medication(s) as directed. Patient to follow up with PCP in 1-2 days. Patient to return to ED if symptoms do not improve. Follow-up with primary care provider and neurologist tomorrow, return to ER if condition worsens. Is patient prescribed a controlled substance at d/c from ED?: No Referrals: Scott Medrano MD [Primary Care Provider] - 1-2 days
[2018-11-25 00:20] VITALS: BP 109/62; PULSE 65
== END 2018-11-25 00:20 | disposition home or self-care (01) ==
LOC: EC 22:38
DX: R51 Headache (principal); G40.909 Epilepsy, unspecified, not intractable, without status epilepticus; F41.0 Panic disorder [episodic paroxysmal anxiety]; G47.00 Insomnia, unspecified; Z88.0 Allergy status to penicillin; Z88.1 Allergy status to other antibiotic agents; Z88.5 Allergy status to narcotic agent; Z88.6 Allergy status to analgesic agent; Z88.8 Allergy status to other drugs, medicaments and biological substances; Z91.048 Other nonmedicinal substance allergy status; Z79.899 Other long term (current) drug therapy; Z86.14 Personal history of Methicillin resistant Staphylococcus aureus infection; Z85.038 Personal history of other malignant neoplasm of large intestine; Z86.69 Personal history of other diseases of the nervous system and sense organs; Z90.49 Acquired absence of other specified parts of digestive tract; Z53.20 Procedure and treatment not carried out because of patient's decision for unspecified reasons
CPT/HCPCS: 99283; 96374; 96375 ×2; J1200; J2405; J1170

== ENCOUNTER 2018-11-26 14:36 | Emergency (ER) | payer OTHER ==
[2018-11-26 14:41] VITALS: TEMP 97
[2018-11-26 15:29] LABS: Amphetamine Screen,Urine Not Detected (NotDetected); Barbiturate Screen,Urine Not Detected (NotDetected); Benzodiazepines Screen,Urine Detected (NotDetected); Cocaine Screen,Urine Not Detected (NotDetected); Methadone Screen, Urine Not Detected (NotDetected); Opiate Screen,Urine Detected (NotDetected); Oxycodone Screen, Urine Not Detected (NotDetected); Phencyclidine Screen,Urine Not Detected (NotDetected); Tricyclic Antidepressant,Urine Not Detected (NotDetected); Urn Cannabinoid Scrn Not Detected (NotDetected)
[2018-11-26] MEDS ORDERED: HYDROmorphone 1 MG/ML 1 ML SYRINGE IVP STA (15:30)
[2018-11-26] MEDS ORDERED: diphenhydrAMINE 50 MG/ML 1 ML VIAL IVP STA (15:30)
[2018-11-26] MEDS ORDERED: SODIUM CHLORIDE 0.9% 1,000 ML IV STA (15:31)
[2018-11-26] MEDS ORDERED: PROMETHAZINE INJ 25 MG in SODIUM CHLORIDE 0.9% 50 ML IVPB STA (15:31)
--- NOTE | 2018-11-26 15:35 | ED ---
Psych HPI - General Chief Complaint: Psychiatric Symptoms Stated Complaint: petition Time Seen by Provider: 11/26/18 14:44 Source: patient, EMS Mode of arrival: EMS - History of Present Illness Initial Comments: This is a 52-year-old female who is brought in because of some thoughts of depression and possible suicidal ideation. She states she rolled her thoughts on today she was told to was secondary to a severe migraine headache that she's been battling. He states she is actually scheduled to see her neurologist tomorrow. She denies any fevers chills nausea vomiting or sweats at this time is severe global headache she does states she has a small aneurysm she's had multiple imaging studies. She at this time does not believe she would she herself. No trauma no other modifying factors at this time he does state that the migraine cocktail does help with the headache. She states she has had Dilaudid without incident in the past MD Complaint: feels depressed - Related Data Home Medications Medication Instructions Recorded Confirmed Brivaracetam [Briviact] 50 mg PO BID 08/01/16 11/26/18 clonazePAM [KlonoPIN] 0.5 mg PO BID 08/01/16 11/26/18 diphenhydrAMINE HCL [Benadryl] 25 mg PO HS 09/26/18 11/26/18 lamoTRIgine [LaMICtal] 200 mg PO BID 09/26/18 11/26/18 Acetaminophen Tab [Tylenol Tab] 1,000 mg PO Q6H PRN 10/05/18 11/26/18 ALPRAZolam [Xanax] 0.25 mg PO TID PRN 10/10/18 11/26/18 Melatonin 25mg 25 mg PO HS 11/13/18 11/26/18 Topiramate [Trokendi Xr] 100 mg PO DAILY 11/13/18 11/26/18 Allergies Allergy/AdvReac Type Severity Reaction Status Date / Time erythromycin base Allergy Rash/Hives Verified 11/26/18 14:41 iodine Allergy Anaphylaxis Verified 11/26/18 14:41 ketorolac tromethamine Allergy Rash/Hives/ Verified 11/26/18 14:41 [From Toradol] hallucinati ons Penicillins Allergy Anaphylaxis Verified 11/26/18 14:41 acetaminophen [From Fioricet] AdvReac Unknown Verified 11/26/18 14:41 azithromycin AdvReac red face Verified 11/26/18 14:41 butalbital [From Fioricet] AdvReac Unknown Verified 11/26/18 14:41 caffeine [From Fioricet] AdvReac Unknown Verified 11/26/18 14:41 codeine AdvReac Hallucinati Verified 11/26/18 14:41 ons lorazepam [From Ativan] AdvReac Hallucinati Verified 11/26/18 14:41 ons Review of Systems ROS Statement: Those systems with pertinent positive or pertinent negative responses have been documented in the HPI. ROS Other: All systems not noted in ROS Statement are negative. 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, swelling of left lower leg, ins omnia, hx hiatal hernia, hx colon cancer, diarrhea, hx psoriasis, Leaky heart valve, episodes of "passing out" History of Any Multi-Drug Resistant Organisms: MRSA Date of last positivie culture/infection: 12/03/2010 MDRO Source:: arm and abdomen Past Surgical History: Appendectomy, Bowel Resection, Cholecystectomy, Ear Surgery, Hysterectomy, Orthopedic Surgery Additional Past Surgical History / Comment(s): frantz knee arthroscopy, hiatal hernia surgery, rt ear surgery to remove middle ear Past Anesthesia/Blood Transfusion Reactions: Postoperative Nausea & Vomiting (PONV) Past Psychological History: Anxiety, Panic Disorder Smoking Status: Never smoker Past Alcohol Use History: None Reported Past Drug Use History: None Reported - Past Family History Mother Family Medical History: No Reported History Additional Family Medical History / Comment(s): . General Exam - General Exam Comments Initial Comments: This is a well-developed well-nourished awake alert oriented 3 female Limitations: no limitations Course Vital Signs 11/26/18 11/26/18 14:39 16:40 Temperature 97.0 F L Pulse Rate 95 69 Respiratory 20 18 Rate Blood Pressure 175/85 163/69 O2 Sat by Pulse 98 97 Oximetry Medical Decision Making - Medical Decision Making Patient was evaluated by psychiatric service and currently is not a threat to herself or anyone else. He is finally improved after several administrations medication I did have a long discussion with her and her family regarding findings she will keep her follow-up appointment with her neurologist tomorrow as planned or when necessary - Lab Data Lab Results 11/26/18 Range/Units 15:05 Urine Opiates Screen Detected H (NotDetected) Ur Oxycodone Screen Not Detected (NotDetected) Urine Methadone Screen Not Detected (NotDetected) Ur Propoxyphene Screen Not Detected (NotDetected) Ur Barbiturates Screen Not Detected (NotDetected) U Tricyclic Antidepress Not Detected (NotDetected) Ur Phencyclidine Scrn Not Detected (NotDetected) Ur Amphetamines Screen Not Detected (NotDetected) U Methamphetamines Scrn Not Detected (NotDetected) U Benzodiazepines Scrn Detected H (NotDetected) Urine Cocaine Screen Not Detected (NotDetected) U Marijuana (THC) Screen Not Detected (NotDetected) Disposition Clinical Impression: Adjustment reaction, Migraine Disposition: HOME SELF-CARE Condition: Good Instructions (If sedation given, give patient instructions): Acute Headache (ED), Anxiety (ED) Is patient prescribed a controlled substance at d/c from ED?: No Referrals: Scott Medrano MD [Primary Care Provider] - 1-2 days
[2018-11-26] MEDS ORDERED: fentaNYL (PF) 50 MCG/ML 2 ML AMP IV STA (16:43)
[2018-11-26 17:27] VITALS: RESP 18
[2018-11-26 18:09] VITALS: BP 138/65; PULSE 65
== END 2018-11-26 18:09 | disposition home or self-care (01) ==
LOC: EC 14:36
DX: F43.22 Adjustment disorder with anxiety (principal); G43.909 Migraine, unspecified, not intractable, without status migrainosus; F41.0 Panic disorder [episodic paroxysmal anxiety]; G40.509 Epileptic seizures related to external causes, not intractable, without status epilepticus; Z86.14 Personal history of Methicillin resistant Staphylococcus aureus infection; Z79.899 Other long term (current) drug therapy; Z88.1 Allergy status to other antibiotic agents; Z91.041 Radiographic dye allergy status; Z88.6 Allergy status to analgesic agent; Z88.0 Allergy status to penicillin; Z88.8 Allergy status to other drugs, medicaments and biological substances; Z88.5 Allergy status to narcotic agent; Z91.018 Allergy to other foods
CPT/HCPCS: 82075; 80306; 99284; 96374; 96375 ×3; 96361; J1200; J2550; J3010; J1170

== ENCOUNTER 2018-11-28 00:09 | Emergency (ER) | payer OTHER ==
[2018-11-28 00:14] VITALS: RESP 18
[2018-11-28] MEDS ORDERED: diphenhydrAMINE 50 MG/ML 1 ML VIAL IVP STA (00:56)
[2018-11-28] MEDS ORDERED: methylPREDNISolone SOD SUCCI 125 MG/2 ML VIAL IV STA (00:56)
[2018-11-28] MEDS ORDERED: METOCLOPRAMIDE 5 MG/ML 2 ML VIAL IVP STA (00:56)
[2018-11-28] MEDS ORDERED: SODIUM CHLORIDE 0.9% 500 ML 500 ML IV STA (00:56)
--- NOTE | 2018-11-28 01:04 | ED ---
Headache HPI - General Chief Complaint: Headache Stated Complaint: Migraine Time Seen by Provider: 11/28/18 00:33 Mode of arrival: wheelchair Limitations: no limitations - History of Present Illness Initial Comments: 's patient is a 52-year-old woman with chronic headaches since August of this year. The patient states she has been seeing Dr. Reina regarding these headaches. She in fact saw him today and he reportedly did nerve block injections. She states the headaches recurred tonight. She states that the pain is similar in location and severity to her usual headaches. No unusual features about this one. No fever or chills. No neurologic symptoms. No neck pain or stiffness. She does have photophobia and nausea that she states she usually gets. MD Complaint: headache Onset Description: gradual Location: right, left, frontal Severity: severe Quality: throbbing, similar to previous headaches Consistency: constant Improves With: nothing Worsens With: none Context: occurred at rest Treatments Prior to Arrival: none - Related Data On Hormonal Control: No Home Medications Medication Instructions Recorded Confirmed Brivaracetam [Briviact] 50 mg PO BID 08/01/16 11/28/18 clonazePAM [KlonoPIN] 0.5 mg PO BID 08/01/16 11/28/18 diphenhydrAMINE HCL [Benadryl] 25 mg PO HS 09/26/18 11/28/18 lamoTRIgine [LaMICtal] 200 mg PO BID 09/26/18 11/28/18 Acetaminophen Tab [Tylenol Tab] 1,000 mg PO Q6H PRN 10/05/18 11/28/18 ALPRAZolam [Xanax] 0.25 mg PO TID PRN 10/10/18 11/28/18 Melatonin 25mg 25 mg PO HS 11/13/18 11/28/18 Topiramate [Trokendi Xr] 100 mg PO DAILY 11/13/18 11/28/18 Previous Rx's Medication Instructions Recorded SUMAtriptan SUCCINATE [Imitrex] 25 mg PO ONCE #10 tablet 11/28/18 Allergies Allergy/AdvReac Type Severity Reaction Status Date / Time erythromycin base Allergy Rash/Hives Verified 11/28/18 00:14 iodine Allergy Anaphylaxis Verified 11/28/18 00:14 ketorolac tromethamine Allergy Rash/Hives/ Verified 11/28/18 00:14 [From Toradol] hallucinati ons Penicillins Allergy Anaphylaxis Verified 11/28/18 00:14 acetaminophen [From Fioricet] AdvReac Unknown Verified 11/28/18 00:14 azithromycin AdvReac red face Verified 11/28/18 00:14 butalbital [From Fioricet] AdvReac Unknown Verified 11/28/18 00:14 caffeine [From Fioricet] AdvReac Unknown Verified 11/28/18 00:14 codeine AdvReac Hallucinati Verified 11/28/18 00:14 ons lorazepam [From Ativan] AdvReac Hallucinati Verified 11/28/18 00:14 ons Review of Systems ROS Statement: Those systems with pertinent positive or pertinent negative responses have been documented in the HPI. ROS Other: All systems not noted in ROS Statement are negative. Constitutional: Denies: fever, chills, weakness Eyes: Denies: eye pain, vision change ENT: Denies: congestion Respiratory: Denies: cough, dyspnea Cardiovascular: Denies: chest pain, syncope Gastrointestinal: Reports: nausea. Denies: abdominal pain, vomiting Genitourinary: Denies: dysuria Musculoskeletal: Denies: back pain Skin: Denies: rash Neurological: Reports: headache. 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, swelling of left lower leg, insomnia, hx hiatal hernia, hx colon cancer, diarrhea, hx psoriasis, Leaky heart valve, episodes of "passing out" History of Any Multi-Drug Resistant Organisms: MRSA Date of last positivie culture/infection: 12/03/2010 MDRO Source:: arm and abdomen Past Surgical History: Appendectomy, Bowel Resection, Cholecystectomy, Ear Surgery, Hysterectomy, Orthopedic Surgery Additional Past Surgical History / Comment(s): frantz knee arthroscopy, hiatal hernia surgery, rt ear surgery to remove middle ear Past Anesthesia/Blood Transfusion Reactions: Postoperative Nausea & Vomiting (PONV) Past Psychological History: Anxiety, Panic Disorder Smoking Status: Never smoker Past Alcohol Use History: None Reported Past Drug Use History: None Reported - Past Family History Mother Family Medical History: No Reported History Additional Family Medical History / Comment(s): . General Exam Limitations: no limitations General appearance: alert, in no apparent distress Head exam: Present: atraumatic, normocephalic Eye exam: Present: normal appearance. Absent: scleral icterus, conjunctival injection ENT exam: Present: normal oropharynx Neck exam: Present: normal inspection, full ROM. Absent: tenderness, meningismus Respiratory exam: Present: normal lung sounds bilaterally. Absent: respiratory distress, wheezes, rales, rhonchi, stridor Cardiovascular Exam: Present: regular rate, normal rhythm, normal heart sounds. Absent: systolic murmur, diastolic murmur, rubs, gallop GI/Abdominal exam: Present: soft. Absent: distended, tenderness, guarding, rebound, rigid Extremities exam: Present: normal inspection, normal capillary refill Back exam: Present: normal inspection. Absent: CVA tenderness (R), CVA tenderness (L), vertebral tenderness Neurological exam: Present: alert, oriented X3, CN II-XII intact. Absent: motor sensory deficit Skin exam: Present: warm, dry, intact, normal color. Absent: rash Course Vital Signs 11/28/18 00:11 Temperature 97.8 F Pulse Rate 83 Respiratory 18 Rate Blood Pressure 125/77 O2 Sat by Pulse 98 Oximetry Disposition Clinical Impression: Migraine headache Disposition: HOME SELF-CARE Condition: Good Instructions (If sedation given, give patient instructions): Acute Headache (ED) Prescriptions: SUMAtriptan SUCCINATE [Imitrex] 25 mg PO ONCE #10 tablet Is patient prescribed a controlled substance at d/c from ED?: No Referrals: Scott Medrano MD [Primary Care Provider] - 1-2 days
[2018-11-28] MEDS ORDERED: SUMAtriptan SUCCINATE 6 MG/0.5 ML VIAL SQ STA (02:09)
[2018-11-28] MEDS ORDERED: HYDROmorphone 1 MG/ML 1 ML SYRINGE IVP STA (03:10)
[2018-11-28 03:57] VITALS: BP 151/71; PULSE 68; TEMP 98
== END 2018-11-28 04:01 | disposition home or self-care (01) ==
LOC: EC 00:09
DX: G43.909 Migraine, unspecified, not intractable, without status migrainosus (principal); F41.9 Anxiety disorder, unspecified; F41.0 Panic disorder [episodic paroxysmal anxiety]; G47.00 Insomnia, unspecified; Z79.899 Other long term (current) drug therapy; Z88.0 Allergy status to penicillin; Z88.1 Allergy status to other antibiotic agents; Z88.5 Allergy status to narcotic agent; Z88.8 Allergy status to other drugs, medicaments and biological substances; Z91.018 Allergy to other foods; Z91.041 Radiographic dye allergy status; Z88.6 Allergy status to analgesic agent; Z85.038 Personal history of other malignant neoplasm of large intestine; Z86.14 Personal history of Methicillin resistant Staphylococcus aureus infection
CPT/HCPCS: 96374; 96375 ×2; 96361; 96372; 99283; J3030; J1200; J2765; J2930

== ENCOUNTER 2018-12-01 20:30 | Emergency (ER) | payer OTHER ==
[2018-12-01 20:35] VITALS: RESP 18
[2018-12-01] MEDS ORDERED: HYDROmorphone 0.5 MG/0.5 ML SYRINGE IVP STA (21:22)
[2018-12-01] MEDS ORDERED: diphenhydrAMINE 50 MG CAP PO STA (21:23)
[2018-12-01] MEDS ORDERED: diphenhydrAMINE 25 MG CAP PO STA (21:31)
[2018-12-01] MEDS ORDERED: HYDROmorphone 0.5 MG/0.5 ML SYRINGE IM STA (21:33)
[2018-12-01] MEDS ORDERED: ONDANSETRON 4 MG/2 ML VIAL IVP STA (21:56)
[2018-12-01 23:21] VITALS: BP 116/66; PULSE 64; TEMP 98
--- NOTE | 2018-12-01 23:24 | ED ---
General Adult HPI - General Chief complaint: Headache Stated complaint: Migraine Time Seen by Provider: 12/01/18 20:41 Source: patient Mode of arrival: ambulatory Limitations: no limitations - History of Present Illness Initial comments: Patient is a 52-year-old female with history of migraines is presenting to emergency Department with chief complaint of a migraine. Patient reports a chronic migraine for the past month with no improvement. Patient reports mild photosensitivity but denies nausea. Patient states that she can still go outside and "deals" with the sensitivity. Patient reports the headache starts at the occipital region and radiates bilaterally around the sides and ends at the frontal region of the head. Patient reports taking [id number] analgesics minimal improvement. Patient sees a neurologist but states that he does not give her any medication for the chronic migraines. Patient denies any blurry vision, chest pain, chest tightness, shortness of breath. Patient reports the pain feels very similar to previous migraines. Patient states this is not the worse headache of her life. Patient denies any focal neural deficits. Patient states this is not the worst headache of her life. - Related Data Home Medications Medication Instructions Recorded Confirmed Brivaracetam [Briviact] 50 mg PO BID 08/01/16 12/01/18 clonazePAM [KlonoPIN] 0.5 mg PO BID 08/01/16 12/01/18 diphenhydrAMINE HCL [Benadryl] 25 mg PO HS 09/26/18 12/01/18 lamoTRIgine [LaMICtal] 200 mg PO BID 09/26/18 12/01/18 Acetaminophen Tab [Tylenol Tab] 1,000 mg PO Q6H PRN 10/05/18 12/01/18 ALPRAZolam [Xanax] 0.25 mg PO TID PRN 10/10/18 12/01/18 Melatonin 25mg 25 mg PO HS 11/13/18 12/01/18 Topiramate [Trokendi Xr] 100 mg PO DAILY 11/13/18 12/01/18 Previous Rx's Medication Instructions Recorded SUMAtriptan SUCCINATE [Imitrex] 25 mg PO ONCE #10 tablet 11/28/18 Allergies Allergy/AdvReac Type Severity Reaction Status Date / Time erythromycin base Allergy Rash/Hives Verified 12/01/18 20:44 iodine Allergy Anaphylaxis Verified 12/01/18 20:44 ketorolac tromethamine Allergy Rash/Hives/ Verified 12/01/18 20:44 [From Toradol] hallucinati ons Penicillins Allergy Anaphylaxis Verified 12/01/18 20:44 acetaminophen [From Fioricet] AdvReac Unknown Verified 12/01/18 20:44 azithromycin AdvReac red face Verified 12/01/18 20:44 butalbital [From Fioricet] AdvReac Unknown Verified 12/01/18 20:44 caffeine [From Fioricet] AdvReac Unknown Verified 12/01/18 20:44 codeine AdvReac Hallucinati Verified 12/01/18 20:44 ons lorazepam [From Ativan] AdvReac Hallucinati Verified 12/01/18 20:44 ons Review of Systems ROS Statement: Those systems with pertinent positive or pertinent negative responses have been documented in the HPI. ROS Other: All systems not noted in ROS Statement are negative. 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, swelling of left lower leg, i nsomnia, hx hiatal hernia, hx colon cancer, diarrhea, hx psoriasis, Leaky heart valve, episodes of "passing out" History of Any Multi-Drug Resistant Organisms: MRSA Date of last positivie culture/infection: 12/03/2010 MDRO Source:: arm and abdomen Past Surgical History: Appendectomy, Bowel Resection, Cholecystectomy, Ear Surgery, Hysterectomy, Orthopedic Surgery Additional Past Surgical History / Comment(s): frantz knee arthroscopy, hiatal hernia surgery, rt ear surgery to remove middle ear Past Anesthesia/Blood Transfusion Reactions: Postoperative Nausea & Vomiting (PONV) Past Psychological History: Anxiety, Panic Disorder Smoking Status: Never smoker Past Alcohol Use History: None Reported Past Drug Use History: None Reported - Past Family History Mother Family Medical History: No Reported History Additional Family Medical History / Comment(s): . General Exam Limitations: no limitations General appearance: alert, in no apparent distress Head exam: Present: atraumatic, normocephalic, normal inspection Eye exam: Present: normal appearance, PERRL, EOMI. Absent: conjunctival injection Pupils: Present: normal accommodation ENT exam: Present: normal exam, normal oropharynx, mucous membranes moist, TM's normal bilaterally, normal external ear exam Neck exam: Present: normal inspection, full ROM. Absent: tenderness Respiratory exam: Present: normal lung sounds bilaterally Cardiovascular Exam: Present: regular rate, normal rhythm, normal heart sounds GI/Abdominal exam: Present: soft, normal bowel sounds Extremities exam: Present: normal inspection, full ROM Back exam: Present: normal inspection, full ROM Neurological exam: Present: alert, oriented X3, CN II-XII intact, normal gait, other (Patient neurovascularly intact.) Psychiatric exam: Present: normal affect, normal mood Skin exam: Present: warm, intact, normal color Course Vital Signs 12/01/18 12/01/18 20:32 23:19 Temperature 97.8 F 98 F Pulse Rate 82 64 Respiratory 18 18 Rate Blood Pressure 154/78 116/66 O2 Sat by Pulse 100 99 Oximetry Medical Decision Making - Medical Decision Making Patient is a 52-year-old female with history of migraines is presenting to emergency Department with a chief complaint of a migraine. Based on history and physical examination I suspect the patient to have an atypical migraine headache Patient was given 0.5 mg of Dilaudid and 25 mg of Benadryl. On reevaluation patient developed nausea but no vomiting. Patient was given 4 mg of Zofran. On reevaluation patient states that she feels better and is ready to go home. Patient advised to continue following up with her neurologist. Strict return parameters were thoroughly discussed with patient was understanding and agreeable. Case discussed with physician. Disposition Clinical Impression: Migraine Disposition: HOME SELF-CARE Condition: Stable Instructions (If sedation given, give patient instructions): Acute Headache (ED) Additional Instructions: Please follow-up with your neurologist. Please return to emergency department if symptoms worsen. Is patient prescribed a controlled substance at d/c from ED?: No Referrals: Scott Medrano MD [Primary Care Provider] - 1-2 days Time of Disposition: 23:24
== END 2018-12-01 23:28 | disposition home or self-care (01) ==
LOC: EC 20:30
DX: G43.909 Migraine, unspecified, not intractable, without status migrainosus (principal); G40.909 Epilepsy, unspecified, not intractable, without status epilepticus; G47.00 Insomnia, unspecified; F41.0 Panic disorder [episodic paroxysmal anxiety]; Z88.0 Allergy status to penicillin; Z88.1 Allergy status to other antibiotic agents; Z88.5 Allergy status to narcotic agent; Z88.6 Allergy status to analgesic agent; Z88.8 Allergy status to other drugs, medicaments and biological substances; Z91.048 Other nonmedicinal substance allergy status; Z86.14 Personal history of Methicillin resistant Staphylococcus aureus infection; Z85.038 Personal history of other malignant neoplasm of large intestine; Z90.49 Acquired absence of other specified parts of digestive tract; Z53.8 Procedure and treatment not carried out for other reasons
CPT/HCPCS: 99283; 96374; 96372; J2405; J1170

== ENCOUNTER 2018-12-09 22:23 | Emergency (ER) | payer OTHER ==
[2018-12-09] MEDS ORDERED: SODIUM CHLORIDE 0.9% 500 ML 500 ML IV STA (23:37)
[2018-12-09] MEDS ORDERED: diphenhydrAMINE 50 MG/ML 1 ML VIAL IVP STA (23:37)
[2018-12-09] MEDS ORDERED: HYDROmorphone 1 MG/ML 1 ML SYRINGE IVP STA (23:37)
[2018-12-09] MEDS ORDERED: METOCLOPRAMIDE 5 MG/ML 2 ML VIAL IVP STA (23:37)
--- NOTE | 2018-12-09 23:37 | ED ---
Headache HPI - General Chief Complaint: Headache Stated Complaint: Migraine Time Seen by Provider: 12/09/18 22:50 Mode of arrival: ambulatory Limitations: no limitations - History of Present Illness MD Complaint: "migraine" -: days(s) Onset Description: gradual Location: diffuse Severity: severe Quality: aching, constant, similar to previous headaches Consistency: constant Improves With: nothing Worsens With: light, noise Context: occurred at rest Associated Symptoms: nausea, vomiting, photophobia, sensitivity to sound Treatments Prior to Arrival: Acetaminophen, Ibuprofen - Related Data Home Medications Medication Instructions Recorded Confirmed Brivaracetam [Briviact] 50 mg PO BID 08/01/16 12/09/18 clonazePAM [KlonoPIN] 0.5 mg PO BID 08/01/16 12/09/18 diphenhydrAMINE HCL [Benadryl] 25 mg PO HS 09/26/18 12/09/18 lamoTRIgine [LaMICtal] 200 mg PO BID 09/26/18 12/09/18 Acetaminophen Tab [Tylenol Tab] 1,000 mg PO Q6H PRN 10/05/18 12/09/18 ALPRAZolam [Xanax] 0.25 mg PO TID PRN 10/10/18 12/09/18 Melatonin 25mg 25 mg PO HS 11/13/18 12/09/18 Topiramate [Trokendi Xr] 100 mg PO DAILY 11/13/18 12/09/18 ARIPiprazole [Abilify] 5 mg PO DAILY 12/09/18 12/09/18 Rizatriptan Benzoate [Maxalt] 10 mg PO DAILY PRN 12/09/18 12/09/18 Allergies Allergy/AdvReac Type Severity Reaction Status Date / Time erythromycin base Allergy Rash/Hives Verified 12/09/18 23:30 iodine Allergy Anaphylaxis Verified 12/09/18 23:30 ketorolac tromethamine Allergy Rash/Hives/ Verified 12/09/18 23:30 [From Toradol] hallucinati ons Penicillins Allergy Anaphylaxis Verified 12/09/18 23:30 acetaminophen [From Fioricet] AdvReac Unknown Verified 12/09/18 23:30 azithromycin AdvReac red face Verified 12/09/18 23:30 butalbital [From Fioricet] AdvReac Unknown Verified 12/09/18 23:30 caffeine [From Fioricet] AdvReac Unknown Verified 12/09/18 23:30 codeine AdvReac Hallucinati Verified 12/09/18 23:30 ons lorazepam [From Ativan] AdvReac Hallucinati Verified 12/09/18 23:30 ons Review of Systems ROS Statement: Those systems with pertinent positive or pertinent negative responses have been documented in the HPI. ROS Other: All systems not noted in ROS Statement are negative. Constitutional: Denies: fever, chills, weakness Eyes: Denies: eye pain, vision change Respiratory: Denies: cough, dyspnea Cardiovascular: Denies: chest pain, syncope Gastrointestinal: Reports: nausea, vomiting. Denies: abdominal pain Musculoskeletal: Denies: back pain Skin: Denies: rash Neurological: Reports: as per HPI, headache. 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, swelling of left lower leg, insomnia, hx hiatal hernia, hx colon cancer, diarrhea, hx psoriasis, Leaky heart valve, episodes of "passing out" History of Any Multi-Drug Resistant Organisms: MRSA Date of last positivie culture/infection: 12/03/2010 MDRO Source:: arm and abdomen Past Surgical History: Appendectomy, Bowel Resection, Cholecystectomy, Ear Surgery, Hysterectomy, Orthopedic Surgery Additional Past Surgical History / Comment(s): frantz knee arthroscopy, hiatal hernia surgery, rt ear surgery to remove middle ear Past Anesthesia/Blood Transfusion Reactions: Postoperative Nausea & Vomiting (PONV) Past Psychological History: Anxiety, Panic Disorder Smoking Status: Never smoker Past Alcohol Use History: None Reported Past Drug Use History: None Reported - Past Family History Mother Family Medical History: No Reported History Additional Family Medical History / Comment(s): . General Exam Limitations: no limitations General appearance: alert, in no apparent distress Head exam: Present: atraumatic, normocephalic Eye exam: Present: normal appearance, PERRL. Absent: scleral icterus, conjunctival injection ENT exam: Present: normal oropharynx Neck exam: Present: normal inspection, full ROM. Absent: tenderness, meningismus Back exam: Present: normal inspection. Absent: vertebral tenderness Neurological exam: Present: alert, oriented X3, CN II-XII intact. Absent: motor sensory deficit Skin exam: Present: warm, dry, intact, normal color. Absent: rash Course Vital Signs 12/09/18 12/10/18 22:38 01:44 Temperature 97.5 F L 97.8 F Pulse Rate 68 65 Respiratory 20 16 Rate Blood Pressure 124/77 98/66 O2 Sat by Pulse 100 96 Oximetry Disposition Clinical Impression: Migraine headache Disposition: HOME SELF-CARE Condition: Fair Instructions (If sedation given, give patient instructions): Migraine Headache (ED) Is patient prescribed a controlled substance at d/c from ED?: No Referrals: Scott Medrano MD [Primary Care Provider] - 1-2 days
[2018-12-10 01:46] VITALS: BP 98/66; PULSE 65; RESP 16; TEMP 97.8
== END 2018-12-10 01:46 | disposition home or self-care (01) ==
LOC: EC 22:23
DX: G43.909 Migraine, unspecified, not intractable, without status migrainosus (principal); M79.7 Fibromyalgia; G40.909 Epilepsy, unspecified, not intractable, without status epilepticus; F41.0 Panic disorder [episodic paroxysmal anxiety]; Z85.038 Personal history of other malignant neoplasm of large intestine; Z86.14 Personal history of Methicillin resistant Staphylococcus aureus infection; Z79.899 Other long term (current) drug therapy; Z88.1 Allergy status to other antibiotic agents; Z91.048 Other nonmedicinal substance allergy status; Z88.6 Allergy status to analgesic agent; Z88.0 Allergy status to penicillin; Z88.5 Allergy status to narcotic agent; Z88.8 Allergy status to other drugs, medicaments and biological substances
CPT/HCPCS: 99283; 96374; 96375 ×2; 96361; J1200; J2765; J1170

== ENCOUNTER 2018-12-19 22:29 | Emergency (ER) | payer OTHER ==
[2018-12-19 22:37] VITALS: TEMP 97.8
[2018-12-19] MEDS ORDERED: HYDROmorphone 0.5 MG/0.5 ML SYRINGE IVP STA (23:02)
[2018-12-19] MEDS ORDERED: diphenhydrAMINE 50 MG/ML 1 ML VIAL IVP STA (23:03)
[2018-12-19] MEDS ORDERED: DIAZEPAM 5 MG/ML 2 ML INJ IVP STA (23:03)
[2018-12-19] MEDS ORDERED: ONDANSETRON 4 MG/2 ML VIAL IVP STA (23:03)
[2018-12-19] MEDS ORDERED: SODIUM CHLORIDE 0.9% 1,000 ML IV STA (23:03)
--- NOTE | 2018-12-19 23:35 | ED ---
Headache HPI - General Chief Complaint: Headache Stated Complaint: migraine Time Seen by Provider: 12/19/18 22:51 Source: RN notes reviewed, old records reviewed Mode of arrival: wheelchair Limitations: no limitations - History of Present Illness Initial Comments: This is a 53-year-old female the ER for evaluation. Patient is today for evaluation of migraine history of migraines. 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 Patient states his headache is just like prior migraine headache. This all Dr. Reina for the above. Patient has no recent change in character of headache no recent trauma no fevers. Patient denies any recent change in medications. States multiple seizure medications for stress induced seizures MD Complaint: headache, "migraine" (same as prior) -: days(s) Onset Description: gradual Location: diffuse Severity: moderate Severity scale (1-10): 7 Quality: aching, throbbing Consistency: constant Improves With: nothing Worsens With: none Associated Symptoms: nausea, photophobia, sensitivity to sound - Related Data Home Medications Medication Instructions Recorded Confirmed Brivaracetam [Briviact] 50 mg PO BID 08/01/16 12/19/18 clonazePAM [KlonoPIN] 0.5 mg PO BID 08/01/16 12/19/18 diphenhydrAMINE HCL [Benadryl] 25 mg PO HS 09/26/18 12/19/18 lamoTRIgine [LaMICtal] 200 mg PO BID 09/26/18 12/19/18 Acetaminophen Tab [Tylenol Tab] 1,000 mg PO Q6H PRN 10/05/18 12/19/18 ALPRAZolam [Xanax] 0.25 mg PO TID PRN 10/10/18 12/19/18 Melatonin 25mg 25 mg PO HS 11/13/18 12/19/18 Ibuprofen [Motrin] 800 mg PO TID PRN 12/19/18 12/19/18 Topiramate 50 mg PO BID 12/19/18 12/19/18 Allergies Allergy/AdvReac Type Severity Reaction Status Date / Time erythromycin base Allergy Rash/Hives Verified 12/19/18 22:54 iodine Allergy Anaphylaxis Verified 12/19/18 22:54 ketorolac tromethamine Allergy Rash/Hives/ Verified 12/19/18 22:54 [From Toradol] hallucinati ons Penicillins Allergy Anaphylaxis Verified 12/19/18 22:54 acetaminophen [From Fioricet] AdvReac Unknown Verified 12/19/18 22:54 azithromycin AdvReac red face Verified 12/19/18 22:54 butalbital [From Fioricet] AdvReac Unknown Verified 12/19/18 22:54 caffeine [From Fioricet] AdvReac Unknown Verified 12/19/18 22:54 codeine AdvReac Hallucinati Verified 12/19/18 22:54 ons lorazepam [From Ativan] AdvReac Hallucinati Verified 12/19/18 22:54 ons Review of Systems ROS Statement: Those systems with pertinent positive or pertinent negative responses have been documented in the HPI. ROS Other: All systems not noted in ROS Statement are negative. 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, swelling of left lower leg, insomnia, hx hiatal hernia, hx colon cancer, diarrhea, hx psoriasis, Leaky heart valve, episodes of "passing out" History of Any Multi-Drug Resistant Organisms: MRSA Date of last positivie culture/infection: 12/03/2010 MDRO Source:: arm and abdomen Past Surgical History: Appendectomy, Bowel Resection, Cholecystectomy, Ear Surgery, Hysterectomy, Orthopedic Surgery Additional Past Surgical History / Comment(s): frantz knee arthroscopy, hiatal he rnia surgery, rt ear surgery to remove middle ear Past Anesthesia/Blood Transfusion Reactions: Postoperative Nausea & Vomiting (PONV) Past Psychological History: Anxiety, Panic Disorder Smoking Status: Never smoker Past Alcohol Use History: None Reported Past Drug Use History: None Reported - Past Family History Mother Family Medical History: No Reported History Additional Family Medical History / Comment(s): . General Exam Limitations: no limitations General appearance: alert, in no apparent distress Head exam: Present: atraumatic, normocephalic, normal inspection Eye exam: Present: normal appearance, PERRL, EOMI. Absent: scleral icterus, conjunctival injection, periorbital swelling ENT exam: Present: normal exam, mucous membranes moist Neck exam: Present: normal inspection. Absent: tenderness, meningismus, lymphad enopathy Respiratory exam: Present: normal lung sounds bilaterally. Absent: respiratory distress, wheezes, rales, rhonchi, stridor Cardiovascular Exam: Present: regular rate, normal rhythm, normal heart sounds. Absent: systolic murmur, diastolic murmur, rubs, gallop, clicks GI/Abdominal exam: Present: soft, normal bowel sounds. Absent: distended, tenderness, guarding, rebound, rigid Extremities exam: Present: normal inspection, full ROM, normal capillary refill. Absent: tenderness, pedal edema, joint swelling, calf tenderness Back exam: Present: normal inspection Neurological exam: Present: alert, oriented X3, CN II-XII intact Psychiatric exam: Present: normal affect, normal mood Skin exam: Present: warm, dry, intact, normal color. Absent: rash Course Vital Signs 12/19/18 22:35 Temperature 97.8 F Pulse Rate 74 Respiratory 18 Rate Blood Pressure 135/78 O2 Sat by Pulse 100 Oximetry - Reevaluation(s) Reevaluation #1: 12/19/18 23:32 Medical record is reviewed and prior ER visits for migraine Reevaluation #2: 12/19/18 23:59 Headache is resolved Medical Decision Making - Medical Decision Making 53 female the ER for evaluation. Patient presents today for evaluation regarding headache. Migraine headache. Patient's headache is now controlled patient can be discharged home Disposition Clinical Impression: Migraine, Headache Disposition: HOME SELF-CARE Condition: Good Instructions (If sedation given, give patient instructions): Acute Headache (ED) Is patient prescribed a controlled substance at d/c from ED?: No Referrals: Scott Medrano MD [Primary Care Provider] - 1-2 days
[2018-12-20 00:50] VITALS: BP 140/67; PULSE 63; RESP 16
[2018-12-20 00:57] LABS: Basophils # (A) 0.1 k/uL (0-0.2); Basophils % (A) 1 %; Eosinophils # (A) 0.3 k/uL (0-0.7); Eosinophils % (A) 3 %; HCT 34.3 % (34.0-46.0); HGB 11.3 gm/dL (11.4-16.0); Lymphocytes # (A) 2.7 k/uL (1.0-4.8); Lymphocytes % (A) 36 %; MCH 27.3 pg (25.0-35.0); MCHC 32.9 g/dL (31.0-37.0); MCV 82.9 fL (80.0-100.0); Mean Platelet Volume 7.1; Monocytes # (A) 0.3 k/uL (0-1.0); Monocytes % (A) 4 %; Neutrophils # (A) 4.1 k/uL (1.3-7.7); Neutrophils % (A) 55 %; Platelet Count 335 k/uL (150-450); RBC 4.14 m/uL (3.80-5.40); RDW 15.4 % (11.5-15.5); WBC 7.5 k/uL (3.8-10.6)
[2018-12-20] MEDS ORDERED: HYDROmorphone 0.5 MG/0.5 ML SYRINGE IVP STA (01:01)
[2018-12-20] MEDS ORDERED: DIAZEPAM 5 MG/ML 2 ML INJ IVP STA (01:02)
[2018-12-20 01:03] LABS: Chloride 108 mmol/L (98-107); Glucose 99 mg/dL (74-99); Potassium 4.1 mmol/L (3.5-5.1); Total Protein 6.9 g/dL (6.3-8.2)
[2018-12-20 01:04] LABS: ALT 42 U/L (9-52); AST 33 U/L (14-36); African American GFR (CKD) >90 (>60 ml/min/1.73 sqM); Alkaline Phosphatase 283 U/L (38-126); Anion Gap 9 mmol/L; Blood Urea Nitrogen 24 mg/dL (7-17); Calcium 9.5 mg/dL (8.4-10.2); Carbon Dioxide 27 mmol/L (22-30); Magnesium 2.2 mg/dL (1.6-2.3); Sodium 144 mmol/L (137-145); Total Bilirubin 0.2 mg/dL (0.2-1.3)
== END 2018-12-20 02:00 | disposition home or self-care (01) ==
LOC: EC 22:29
DX: G43.909 Migraine, unspecified, not intractable, without status migrainosus (principal); G40.409 Other generalized epilepsy and epileptic syndromes, not intractable, without status epilepticus; F41.0 Panic disorder [episodic paroxysmal anxiety]; M79.7 Fibromyalgia; Z79.899 Other long term (current) drug therapy; Z88.0 Allergy status to penicillin; Z88.1 Allergy status to other antibiotic agents; Z88.5 Allergy status to narcotic agent; Z88.6 Allergy status to analgesic agent; Z88.8 Allergy status to other drugs, medicaments and biological substances; Z91.018 Allergy to other foods; Z85.038 Personal history of other malignant neoplasm of large intestine
CPT/HCPCS: 99284; 96365; 96375 ×4; 96376; J2405; J2930; 36415; 80053; 83735; 84100; 85025

== ENCOUNTER 2018-12-24 02:42 | Emergency (ER) | payer OTHER ==
[2018-12-24] MEDS ORDERED: ONDANSETRON 4 MG/2 ML VIAL IVP STA (04:27)
[2018-12-24] MEDS ORDERED: HYDROmorphone 0.5 MG/0.5 ML SYRINGE IVP STA (04:27)
[2018-12-24] MEDS ORDERED: diphenhydrAMINE 50 MG/ML 1 ML VIAL IVP STA (04:27)
[2018-12-24 05:23] LABS: Basophils # (A) 0.1 k/uL (0-0.2); Basophils % (A) 1 %; Eosinophils # (A) 0.2 k/uL (0-0.7); Eosinophils % (A) 3 %; HCT 33.9 % (34.0-46.0); HGB 10.8 gm/dL (11.4-16.0); Lymphocytes # (A) 2.3 k/uL (1.0-4.8); Lymphocytes % (A) 36 %; MCH 26.5 pg (25.0-35.0); MCHC 31.9 g/dL (31.0-37.0); MCV 83.1 fL (80.0-100.0); Mean Platelet Volume 7.1; Monocytes # (A) 0.4 k/uL (0-1.0); Monocytes % (A) 5 %; Neutrophils # (A) 3.6 k/uL (1.3-7.7); Neutrophils % (A) 54 %; Platelet Count 307 k/uL (150-450); RBC 4.08 m/uL (3.80-5.40); RDW 15.1 % (11.5-15.5); WBC 6.6 k/uL (3.8-10.6)
[2018-12-24 05:41] LABS: ALT 33 U/L (9-52); AST 29 U/L (14-36); African American GFR (CKD) 88 (>60 ml/min/1.73 sqM); Albumin 3.7 g/dL (3.5-5.0); Alkaline Phosphatase 225 U/L (38-126); Anion Gap 7 mmol/L; Blood Urea Nitrogen 19 mg/dL (7-17); Calcium 9.5 mg/dL (8.4-10.2); Carbon Dioxide 27 mmol/L (22-30); Chloride 109 mmol/L (98-107); Glucose 95 mg/dL (74-99); Potassium 4.2 mmol/L (3.5-5.1); Sodium 143 mmol/L (137-145); Total Bilirubin 0.2 mg/dL (0.2-1.3); Total Protein 6.4 g/dL (6.3-8.2)
[2018-12-24 06:00] LABS: C Reactive Protein <5.0 mg/L (<10.0)
[2018-12-24] MEDS ORDERED: HYDROmorphone 1 MG/ML 1 ML SYRINGE IVP STA (06:11)
[2018-12-24 06:12] VITALS: TEMP 98.3
--- NOTE | 2018-12-24 06:13 | ED ---
Headache HPI - General Chief Complaint: Headache Stated Complaint: Migraine Time Seen by Provider: 12/24/18 02:55 Mode of arrival: ambulatory Limitations: no limitations - History of Present Illness Initial Comments: The patient is a 53-year-old female with past medical history migraines who presents to the emergency department with reported migraine. The patient has been seen multiple times previously in the past month for similar complaint. She states she is under the care of Dr. Reina. She is on Fioricet for her headaches. She states that she took a force that today after she had onset of her migraine however did not alleviate her headache. She states this is co nsistent with her previous headaches. Denies any blunt head trauma. No visual changes to include blurred vision, double vision or flashes or floaters of light. She denies any fevers or chills. Does admit to left-sided neck stiffness. No recent sick contacts or travel. No recent chiropractic ma nipulations. She denies any unilateral numbness or weakness. Reports to photophobia. She has had an MRI as of recently. She states that Dr. Reina persuaded her to come into the emergency room for a migraine cocktail when her symptoms become uncontrolled. There are no other alleviating, precipitating or modifying factors - Related Data Home Medications Medication Instructions Recorded Confirmed Brivaracetam [Briviact] 50 mg PO BID 08/01/16 12/29/18 clonazePAM [KlonoPIN] 0.5 mg PO BID 08/01/16 12/29/18 diphenhydrAMINE HCL [Benadryl] 25 mg PO HS 09/26/18 12/29/18 lamoTRIgine [LaMICtal] 200 mg PO BID 09/26/18 12/29/18 Acetaminophen Tab [Tylenol Tab] 1,000 mg PO Q6H PRN 10/05/18 12/29/18 ALPRAZolam [Xanax] 0.25 mg PO TID PRN 10/10/18 12/29/18 Melatonin 25mg 25 mg PO HS 11/13/18 12/29/18 Ibuprofen [Motrin] 800 mg PO TID PRN 12/19/18 12/29/18 Topiramate 50 mg PO BID 12/19/18 12/29/18 Ciprofloxacin-Dexameth [Ciprodex 4 drops RIGHT EAR BID 12/29/18 12/29/18 Otic Susp] Allergies Allergy/AdvReac Type Severity Reaction Status Date / Time erythromycin base Allergy Rash/Hives Verified 12/29/18 22:40 iodine Allergy Anaphylaxis Verified 12/29/18 22:40 ketorolac tromethamine Allergy Rash/Hives/ Verified 12/29/18 22:40 [From Toradol] hallucinati ons Penicillins Allergy Anaphylaxis Verified 12/29/18 22:40 acetaminophen [From Fioricet] AdvReac Unknown Verified 12/29/18 22:40 azithromycin AdvReac red face Verified 12/29/18 22:40 butalbital [From Fioricet] AdvReac Unknown Verified 12/29/18 22:40 caffeine [From Fioricet] AdvReac Unknown Verified 12/29/18 22:40 codeine AdvReac Hallucinati Verified 12/29/18 22:40 ons lorazepam [From Ativan] AdvReac Hallucinati Verified 12/29/18 22:40 ons Review of Systems ROS Statement: Those systems with pertinent positive or pertinent negative responses have been documented in the HPI. ROS Other: All systems not noted in ROS Statement are negative. 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, swelling of left lower leg, insomnia, hx hiatal hernia, hx colon cancer, diarrhea, hx psoriasis, Leaky heart valve, episodes of "passing out" History of Any Multi-Drug Resistant Organisms: MRSA Date of last positivie culture/infection: 12/03/2010 MDRO Source:: arm and abdomen Past Surgical History: Appendectomy, Bowel Resection, Cholecystectomy, Ear Surgery, Hysterectomy, Orthopedic Surgery Additional Past Surgical History / Comment(s): frantz knee arthroscopy, hiatal hernia surgery, rt ear surgery to remove middle ear Past Anesthesia/Blood Transfusion Reactions: Postoperative Nausea & Vomiting (PONV) Past Psychological History: Anxiety, Panic Disorder Smoking Status: Never smoker Past Alcohol Use History: None Reported Past Drug Use History: None Reported - Past Family History Mother Family Medical History: No Reported History Additional Family Medical History / Comment(s): . General Exam Limitations: no limitations General appearance: alert, in no apparent distress Head exam: Present: atraumatic, normocephalic, normal inspection Eye exam: Present: normal appearance, PERRL, EOMI. Absent: scleral icterus, conjunctival injection, periorbital swelling ENT exam: Present: normal exam, mucous membranes moist Neck exam: Present: normal inspection. Absent: tenderness, meningismus, l ymphadenopathy Respiratory exam: Present: normal lung sounds bilaterally. Absent: respiratory distress, wheezes, rales, rhonchi, stridor Cardiovascular Exam: Present: regular rate, normal rhythm, normal heart sounds. Absent: systolic murmur, diastolic murmur, rubs, gallop, clicks GI/Abdominal exam: Present: soft, normal bowel sounds. Absent: distended, tenderness, guarding, rebound, rigid Extremities exam: Present: normal inspection, full ROM, normal capillary refill. Absent: tenderness, pedal edema, joint swelling, calf tenderness Back exam: Present: normal inspection Neurological exam: Present: alert, oriented X3, CN II-XII intact Psychiatric exam: Present: normal affect, normal mood Skin exam: Present: warm, dry, intact, normal color. Absent: rash Course Vital Signs 12/24/18 12/24/18 12/24/18 02:50 04:53 06:09 Temperature 97.8 F 98.2 F 98.3 F Pulse Rate 77 73 72 Respiratory 18 18 16 Rate Blood Pressure 133/78 155/76 115/61 O2 Sat by Pulse 100 100 96 Oximetry 12/24/18 06:40 Temperature Pulse Rate 68 Respiratory 18 Rate Blood Pressure 122/59 O2 Sat by Pulse 100 Oximetry Medical Decision Making - Medical Decision Making Upon arrival the patient was placed into room 3. She is hooked up to continuous pulse ox and cardiac monitoring. Laboratory studies were conducted. Hemoglobin is 10.8, chloride 109, alk phos 225. I did recommend CT of the patient's brain however she states she's had multiple past is refusing. She is requesting a migraine cocktail normally works for her. She states consists of 1 mg of Dilaudid, informal grams of Zofran and 25 mg of Benadryl. The patient is refusing a typical migraine cocktail which consists of Decadron, Reglan and Toradol. She states these medications do not work for her and she does have a lot of ALLERGIES. I did provide the patient with her typical migraine cocktail which she states greatly improved headache. She feels comfortable going home. The patient must follow-up was Dr. Reina for further evaluation of her migraines. Return to the emergency room for any new or worsening symptoms. The patient was discharged home in stable condition - Lab Data Result diagrams: 12/24/18 04:51 12/24/18 04:51 Lab Results 12/24/18 12/24/18 Range/Units 04:51 04:51 WBC 6.6 (3.8-10.6) k/uL RBC 4.08 (3.80-5.40) m/uL Hgb 10.8 L (11.4-16.0) gm/dL Hct 33.9 L (34.0-46.0) % MCV 83.1 (80.0-100.0) fL MCH 26.5 (25.0-35.0) pg MCHC 31.9 (31.0-37.0) g/dL RDW 15.1 (11.5-15.5) % Plt Count 307 (150-450) k/uL Neutrophils % 54 % Lymphocytes % 36 % Monocytes % 5 % Eosinophils % 3 % Basophils % 1 % Neutrophils # 3.6 (1.3-7.7) k/uL Lymphocytes # 2.3 (1.0-4.8) k/uL Monocytes # 0.4 (0-1.0) k/uL Eosinophils # 0.2 (0-0.7) k/uL Basophils # 0.1 (0-0.2) k/uL ESR 22 H (0-20) mm/hr Sodium 143 (137-145) mmol/L Potassium 4.2 (3.5-5.1) mmol/L Chloride 109 H (98-107) mmol/L Carbon Dioxide 27 (22-30) mmol/L Anion Gap 7 mmol/L BUN 19 H (7-17) mg/dL Creatinine 0.87 (0.52-1.04) mg/dL Est GFR (CKD-EPI)AfAm 88 (>60 ml/min/1.73 sqM) Est GFR (CKD-EPI)NonAf 77 (>60 ml/min/1.73 sqM) Glucose 95 (74-99) mg/dL Calcium 9.5 (8.4-10.2) mg/dL Total Bilirubin 0.2 (0.2-1.3) mg/dL AST 29 (14-36) U/L ALT 33 (9-52) U/L Alkaline Phosphatase 225 H (38-126) U/L C-Reactive Protein <5.0 (<10.0) mg/L Total Protein 6.4 (6.3-8.2) g/dL Albumin 3.7 (3.5-5.0) g/dL Disposition Clinical Impression: Migraine Disposition: HOME SELF-CARE Condition: Stable Instructions (If sedation given, give patient instructions): Acute Headache (ED) Additional Instructions: Please follow-up Dr. Reina within 2-4 days. Return to the emergency room for any new or worsening symptoms. Is patient prescribed a controlled substance at d/c from ED?: No Referrals: Scott Medrano MD [Primary Care Provider] - 1-2 days Time of Disposition: 06:13
[2018-12-24 06:27] LABS: Erythrocyte Sedimentation Rate 22 mm/hr (0-20)
[2018-12-24 06:40] VITALS: BP 122/59; PULSE 68; RESP 18
== END 2018-12-24 06:59 | disposition home or self-care (01) ==
LOC: EC 02:42
DX: G43.909 Migraine, unspecified, not intractable, without status migrainosus (principal); G40.909 Epilepsy, unspecified, not intractable, without status epilepticus; F41.0 Panic disorder [episodic paroxysmal anxiety]; Z88.0 Allergy status to penicillin; Z88.1 Allergy status to other antibiotic agents; Z88.5 Allergy status to narcotic agent; Z88.6 Allergy status to analgesic agent; Z88.8 Allergy status to other drugs, medicaments and biological substances; Z91.048 Other nonmedicinal substance allergy status; Z79.899 Other long term (current) drug therapy; Z86.14 Personal history of Methicillin resistant Staphylococcus aureus infection; Z85.038 Personal history of other malignant neoplasm of large intestine; Z90.49 Acquired absence of other specified parts of digestive tract; Z53.20 Procedure and treatment not carried out because of patient's decision for unspecified reasons
CPT/HCPCS: 99283; 96374; 96375 ×2; 96376; 36415; 80053; 85652; 85025; 86140; J1200; J2405; J1170 ×2

== ENCOUNTER 2018-12-29 22:16 | Emergency (ER) | payer OTHER ==
[2018-12-29 22:22] VITALS: TEMP 97.6
[2018-12-29] MEDS ORDERED: HYDROmorphone 1 MG/ML 1 ML SYRINGE IVP STA (22:36)
[2018-12-29] MEDS ORDERED: SODIUM CHLORIDE 0.9% 1,000 ML IV STA (22:37)
[2018-12-29] MEDS ORDERED: ONDANSETRON 4 MG/2 ML VIAL IVP STA (22:42)
[2018-12-29 23:05] LABS: Basophils % (A) 0 %; Eosinophils # (A) 0.1 k/uL (0-0.7); Eosinophils % (A) 2 %; HCT 35.2 % (34.0-46.0); HGB 11.2 gm/dL (11.4-16.0); Hypochromasia Slight; Lymphocytes # (A) 2.8 k/uL (1.0-4.8); Lymphocytes % (A) 31 %; MCH 26.3 pg (25.0-35.0); MCHC 31.7 g/dL (31.0-37.0); MCV 83.1 fL (80.0-100.0); Mean Platelet Volume 8.1; Monocytes # (A) 0.3 k/uL (0-1.0); Monocytes % (A) 4 %; Neutrophils # (A) 5.7 k/uL (1.3-7.7); Neutrophils % (A) 63 %; Platelet Count 301 k/uL (150-450); RBC 4.23 m/uL (3.80-5.40); RDW 14.9 % (11.5-15.5)
[2018-12-29 23:10] LABS: Appearance,Urine Clear (Clear); Bilirubin,Urine Negative (Negative); Blood,Urine Negative (Negative); Color,Urine Yellow; Glucose,Urine (UA) Negative (Negative); Ketones,Urine Negative (Negative); Leukocyte Esterase,Urine Large (Negative); Mucus,Urine Rare /hpf; Nitrite,Urine Negative (Negative); Protein,Urine Trace (Negative); RBC,Urine 1 /hpf (0-5); Specific Gravity,Urine 1.028 (1.001-1.035); Squamous Epithelial Cell,Urine 1 /hpf (0-4); Urobilinogen,Urine <2.0 mg/dL (<2.0); WBC,Urine 17 /hpf (0-5)
[2018-12-29] MEDS ORDERED: FAMOTIDINE 20 MG/2 ML VIAL IV STA (23:11)
[2018-12-29] MEDS ORDERED: methylPREDNISolone SOD SUCCI 125 MG/2 ML VIAL IV STA (23:11)
[2018-12-29] MEDS ORDERED: diphenhydrAMINE 50 MG/ML 1 ML VIAL IVP STA (23:11)
[2018-12-29 23:14] LABS: Albumin 4.2 g/dL (3.5-5.0); Calcium 9.7 mg/dL (8.4-10.2); Total Bilirubin 0.2 mg/dL (0.2-1.3); Total Protein 7.4 g/dL (6.3-8.2)
--- NOTE | 2018-12-29 23:22 | ED ---
General Adult HPI - General Chief complaint: ENT Stated complaint: rt ear ache Time Seen by Provider: 12/29/18 22:26 Source: patient, RN notes reviewed, old records reviewed Mode of arrival: ambulatory Limitations: no limitations - History of Present Illness Initial comments: 53 -year-old female patient with past history of migraine headache disorder presents to chief complaint of right ear pain. Patient reports that this began earlier today she saw her primary care provider and was started on Ciprodex otic drops. Patient also has past history of a reported middle ear surgery for a cholesteatoma approximate 15 years ago. Patient does have appointment on Tuesday to follow up with the ENT surgeon who performed this procedure. Patient reports that the pain has worsened. Denies any other complaints. Systemic: Pt denies fatigue, fever/chills, rash. Pt denies weakness, night sweats, weight loss. Neuro: Pt denies headache, visual disturbances, syncope or pre-syncope. HEENT: Pt denies ocular discharge or irritation, otalgia, rhinorrhea, pharyng itis or notable lymphadenopathy. Cardiopulmonary: Pt denies chest pain, SOB, heart palpitations, dyspnea on exertion. Abdominal/GI: Pt denies abdominal pain, n/v/d. : Pt denies dysuria, burning w/ urination, frequency/urgency. Denies new onset urinary or bowel incontinence. MSK: Pt denies myalgia, loss of strength or function in extremities. Neuro: Pt denies new onset weakness, paresthesias. - Related Data Home Medications Medication Instructions Recorded Confirmed Brivaracetam [Briviact] 50 mg PO BID 08/01/16 12/29/18 clonazePAM [KlonoPIN] 0.5 mg PO BID 08/01/16 12/29/18 diphenhydrAMINE HCL [Benadryl] 25 mg PO HS 09/26/18 12/29/18 lamoTRIgine [LaMICtal] 200 mg PO BID 09/26/18 12/29/18 Acetaminophen Tab [Tylenol Tab] 1,000 mg PO Q6H PRN 10/05/18 12/29/18 ALPRAZolam [Xanax] 0.25 mg PO TID PRN 10/10/18 12/29/18 Melatonin 25mg 25 mg PO HS 11/13/18 12/29/18 Ibuprofen [Motrin] 800 mg PO TID PRN 12/19/18 12/29/18 Topiramate 50 mg PO BID 12/19/18 12/29/18 Ciprofloxacin-Dexameth [Ciprodex 4 drops RIGHT EAR BID 12/29/18 12/29/18 Otic Susp] Allergies Allergy/AdvReac Type Severity Reaction Status Date / Time erythromycin base Allergy Rash/Hives Verified 12/29/18 22:40 iodine Allergy Anaphylaxis Verified 12/29/18 22:40 ketorolac tromethamine Allergy Rash/Hives/ Verified 12/29/18 22:40 [From Toradol] hallucinati ons Penicillins Allergy Anaphylaxis Verified 12/29/18 22:40 acetaminophen [From Fioricet] AdvReac Unknown Verified 12/29/18 22:40 azithromycin AdvReac red face Verified 12/29/18 22:40 butalbital [From Fioricet] AdvReac Unknown Verified 12/29/18 22:40 caffeine [From Fioricet] AdvReac Unknown Verified 12/29/18 22:40 codeine AdvReac Hallucinati Verified 12/29/18 22:40 ons lorazepam [From Ativan] AdvReac Hallucinati Verified 12/29/18 22:40 ons Review of Systems ROS Statement: Those systems with pertinent positive or pertinent negative responses have been documented in the HPI. ROS Other: All systems not noted in ROS Statement are negative. 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, swelling of left lower leg, insomnia, hx hiatal hernia, hx colon cancer, diarrhea, hx psoriasis, Leaky heart valve, episodes of "passing out" History of Any Multi-Drug Resistant Organisms: MRSA Date of last positivie culture/infection: 12/03/2010 MDRO Source:: arm and abdomen Past Surgical History: Appendectomy, Bowel Resection, Cholecystectomy, Ear Surgery, Hysterectomy, Orthopedic Surgery Additional Past Surgical History / Comment(s): frantz knee arthroscopy, hiatal hernia surgery, rt ear surgery to remove middle ear Past Anesthesia/Blood Transfusion Reactions: Postoperative Nausea & Vomiting (PONV) Past Psychological History: Anxiety, Panic Disorder Smoking Status: Never smoker Past Alcohol Use History: None Reported Past Drug Use History: None Reported - Past Family History Mother Family Medical History: No Reported History Additional Family Medical History / Comment(s): . General Exam - General Exam Comments Initial Comments: Constitutional: NAD, AOX3, Pt has pleasant affect. HEENT: NC/AT, trachea midline, neck supple, no lymphadenopathy. Posterior pharynx non erythematous, without exudates. External ears appear normal, without discharge. Mucous membranes moist. Eyes PERRLA, EOM intact. There is no scleral icterus. No pallor noted. Right mastoid region tender to palpation. No erythema or skin changes. Nonfluctuant, non-boggy. External auditory canal non-impressive. Internally exam limited secondary to patient pain. Cardiopulmonary: RRR, no murmurs, rubs or gallops, no JVD noted. Lungs CTAB in anterior and posterior moreno. No peripheral edema. Abdominal exam: Abdomen soft and non-distended. Abdomen non-tender to palpation in all 4 quadrants. Bowel sounds active in LLQ. No hepatosplenomegaly. No ecchymosis Neuro: CN II-XII grossly intact. No nuchal rigidity. No raccon eyes, no julien sign, no hemotympanum. No cervical spinal tenderness. MSK: No posterior calf tenderness bilaterally, homans sign negative bilaterally. Posterior tibialis and radial pulse +2 bilaterally. Sensation intact in upper and lower extremities. Full active ROM in upper and lower extremities, 5/5 stregnth. Limitations: no limitations Course Vital Signs 12/29/18 12/29/18 22:18 23:52 Temperature 97.6 F Pulse Rate 76 76 Respiratory 20 16 Rate Blood Pressure 119/68 144/72 O2 Sat by Pulse 98 100 Oximetry Medical Decision Making - Medical Decision Making 53 -year-old female patient with past history of migraine headache disorder presents to chief complaint of right ear pain. Patient reports that this began earlier today she saw her primary care provider and was started on Ciprodex otic drops. Patient also has past history of a reported middle ear surgery for a cholesteatoma approximate 15 years ago. Patient does have appointment on Tuesday to follow up with the ENT surgeon who performed this procedure. Patient reports that the pain has worsened. Denies any other complaints. Patient will signs stable, afebrile. Physical exam displayed: Right mastoid region tender to palpation. No erythema or skin changes. Nonfluctuant, non-boggy. External auditory canal non-impressive. Internally exam limited secondary to patient pain. Laboratory Investigations revealed nonspecific CBC. CMP revealed mildly e levated alk phos. UA displayed mild urinary tract infection. CT internal auditory canal displayed increase soft tissue density involving the external auditory canal erosion of the appendectomy to bag recess. Chronic inflammatory process. Probable loss of myelitis. Also consider chronic otitis interna and externa as well as cholesteatoma. Patient was initiated on vancomycin and cephalosporin. Patient administered 125 solumedrol as well. Patient has Ciprodex eardrops and will continue to use them. Case discussed with attending physician Dr. Haley. who contacted on-call ENT Dr. Davis who recommends transfer. Case was discussed with Dr. Kyle resident for patient's ENT surgeon Dr. Lucas who recommended transfer to [facility] in [place], was in agreement with tx plan. - Lab Data Result diagrams: 12/29/18 22:52 12/29/18 22:52 Lab Results 12/29/18 12/29/18 12/29/18 Range/Units 22:52 22:52 22:52 WBC 9.0 (3.8-10.6) k/uL RBC 4.23 (3.80-5.40) m/uL Hgb 11.2 L (11.4-16.0) gm/dL Hct 35.2 (34.0-46.0) % MCV 83.1 (80.0-100.0) fL MCH 26.3 (25.0-35.0) pg MCHC 31.7 (31.0-37.0) g/dL RDW 14.9 (11.5-15.5) % Plt Count 301 (150-450) k/uL Neutrophils % 63 % Lymphocytes % 31 % Monocytes % 4 % Eosinophils % 2 % Basophils % 0 % Neutrophils # 5.7 (1.3-7.7) k/uL Lymphocytes # 2.8 (1.0-4.8) k/uL Monocytes # 0.3 (0-1.0) k/uL Eosinophils # 0.1 (0-0.7) k/uL Basophils # 0.0 (0-0.2) k/uL Hypochromasia Slight Sodium 143 (137-145) mmol/L Potassium 4.0 (3.5-5.1) mmol/L Chloride 108 H (98-107) mmol/L Carbon Dioxide 26 (22-30) mmol/L Anion Gap 9 mmol/L BUN 26 H (7-17) mg/dL Creatinine 0.97 (0.52-1.04) mg/dL Est GFR (CKD-EPI)AfAm 77 (>60 ml/min/1.73 sqM) Est GFR (CKD-EPI)NonAf 67 (>60 ml/min/1.73 sqM) Glucose 102 H (74-99) mg/dL Plasma Lactic Acid Williams (0.7-2.0) mmol/L Calcium 9.7 (8.4-10.2) mg/dL Total Bilirubin 0.2 (0.2-1.3) mg/dL AST 40 H (14-36) U/L ALT 37 (9-52) U/L Alkaline Phosphatase 238 H (38-126) U/L Total Protein 7.4 (6.3-8.2) g/dL Albumin 4.2 (3.5-5.0) g/dL Urine Color Urine Appearance (Clear) Urine pH (5.0-8.0) Ur Specific [place] (1.001-1.035) Urine Protein (Negative) Urine Glucose (UA) (Negative) Urine Ketones (Negative) Urine Blood (Negative) Urine Nitrite (Negative) Urine Bilirubin (Negative) Urine Urobilinogen (<2.0) mg/dL Ur Leukocyte Esterase (Negative) Urine RBC (0-5) /hpf Urine WBC (0-5) /hpf Ur Squamous Epith Cells (0-4) /hpf Urine Mucus (None) /hpf Urine HCG, Qual Not Detected (Not Detectd) 12/29/18 12/29/18 Range/Units 22:52 22:52 WBC (3.8-10.6) k/uL RBC (3.80-5.40) m/uL Hgb (11.4-16.0) gm/dL Hct (34.0-46.0) % MCV (80.0-100.0) fL MCH (25.0-35.0) pg MCHC (31.0-37.0) g/dL RDW (11.5-15.5) % Plt Count (150-450) k/uL Neutrophils % % Lymphocytes % % Monocytes % % Eosinophils % % Basophils % % Neutrophils # (1.3-7.7) k/uL Lymphocytes # (1.0-4.8) k/uL Monocytes # (0-1.0) k/uL Eosinophils # (0-0.7) k/uL Basophils # (0-0.2) k/uL Hypochromasia Sodium (137-145) mmol/L Potassium (3.5-5.1) mmol/L Chloride (98-107) mmol/L Carbon Dioxide (22-30) mmol/L Anion Gap mmol/L BUN (7-17) mg/dL Creatinine (0.52-1.04) mg/dL Est GFR (CKD-EPI)AfAm (>60 ml/min/1.73 sqM) Est GFR (CKD-EPI)NonAf (>60 ml/min/1.73 sqM) Glucose (74-99) mg/dL Plasma Lactic Acid Williams 0.8 (0.7-2.0) mmol/L Calcium (8.4-10.2) mg/dL Total Bilirubin (0.2-1.3) mg/dL AST (14-36) U/L ALT (9-52) U/L Alkaline Phosphatase (38-126) U/L Total Protein (6.3-8.2) g/dL Albumin (3.5-5.0) g/dL Urine Color Yellow Urine Appearance Clear (Clear) Urine pH 6.0 (5.0-8.0) Ur Specific [place] 1.028 (1.001-1.035) Urine Protein Trace H (Negative) Urine Glucose (UA) Negative (Negative) Urine Ketones Negative (Negative) Urine Blood Negative (Negative) Urine Nitrite Negative (Negative) Urine Bilirubin Negative (Negative) Urine Urobilinogen <2.0 (<2.0) mg/dL Ur Leukocyte Esterase Large H (Negative) Urine RBC 1 (0-5) /hpf Urine WBC 17 H (0-5) /hpf Ur Squamous Epith Cells 1 (0-4) /hpf Urine Mucus Rare H (None) /hpf Urine HCG, Qual (Not Detectd) Disposition Clinical Impression: Osteomyelitis, Otitis externa Disposition: OTHER INSTITUTION NOT DEFINED Condition: Serious Is patient prescribed a controlled substance at d/c from ED?: No Referrals: Scott Medrano MD [Primary Care Provider] - 1-2 days - Out of Hospital Transfer - Req. Specs Out of Hospital Transfer - Requested Specifics: Other Emergency Center ([facility])
[2018-12-29 23:53] VITALS: RESP 16
--- NOTE | 2018-12-30 00:06 | CT ---
EXAMINATION TYPE: CT iac w con DATE OF EXAM: 12/29/2018 COMPARISON: None HISTORY: Ear infection right side CT DLP: mGycm Automated exposure control for dose reduction was used. CONTRAST: CT scan of the IACs is performed , patient injected with mL of . The contrast was Isovue 100 mL. FINDINGS: There is extensive increased soft tissue density at the right external auditory canal which is completely occluded. There is complete opacification of the right middle ear cavity. There is mckenna e erosion at the roof of the right external auditory canal and at the epitympanic recess. There is co mplete lack of pneumatization of the right mastoid sinus. There is some bony erosion on the right tem poral bone at the external auditory canal. There is diffuse soft tissue enhancement at the external a uditory canal. IMPRESSION: Increased soft tissue density involving the external auditory canal and erosion of the epitympanic re cess. There is also erosion at the external auditory canal. This is consistent with chronic inflammat ory process. There is probably osteomyelitis. I would consider both chronic otitis interna and booking clerk al as well as cholesteatoma.
[2018-12-30] MEDS ORDERED: VANCOMYCIN IV PER PHARMACY 1 EACH MISC MISCELLANE PRN (00:21)
[2018-12-30] MEDS ORDERED: VANCOMYCIN 1,250 MG in SODIUM CHLORIDE 0.9% 250 ML IVPB STA (00:25)
[2018-12-30] MEDS ORDERED: CEFEPIME 2 GM in SODIUM CHLORIDE 0.9% 100 ML IVPB STA (00:34)
[2018-12-30 02:11] VITALS: BP 144/85; PULSE 71
== END 2018-12-30 02:11 | disposition short-term general hospital (02) ==
LOC: EC 22:16
DX: H60.91 Unspecified otitis externa, right ear (principal); M86.9 Osteomyelitis, unspecified; N39.0 Urinary tract infection, site not specified; R74.8 Abnormal levels of other serum enzymes; G40.909 Epilepsy, unspecified, not intractable, without status epilepticus; F41.0 Panic disorder [episodic paroxysmal anxiety]; Z88.0 Allergy status to penicillin; Z88.1 Allergy status to other antibiotic agents; Z88.5 Allergy status to narcotic agent; Z88.6 Allergy status to analgesic agent; Z88.8 Allergy status to other drugs, medicaments and biological substances; Z91.048 Other nonmedicinal substance allergy status; Z79.899 Other long term (current) drug therapy; Z86.14 Personal history of Methicillin resistant Staphylococcus aureus infection; Z85.038 Personal history of other malignant neoplasm of large intestine; Z86.69 Personal history of other diseases of the nervous system and sense organs; Z87.2 Personal history of diseases of the skin and subcutaneous tissue; Z98.890 Other specified postprocedural states; Z90.49 Acquired absence of other specified parts of digestive tract
CPT/HCPCS: 36415 ×2; 80053; 83605; 85025; 81001; 81025; 87040; 70481; 99285; 96365; 96367; 96375 ×5; 96361 ×2; J3370; J1200; J2930; J2405; J0692; J1170; Q9967

== ENCOUNTER 2019-01-16 22:49 | Emergency (ER) | payer OTHER ==
[2019-01-16] MEDS ORDERED: SODIUM CHLORIDE 0.9% 1,000 ML BAG ONE (23:55)
[2019-01-16] MEDS ORDERED: HYDROmorphone 0.5 MG/0.5 ML SYRINGE ONE ×2 (23:55)
[2019-01-16] MEDS ORDERED: diphenhydrAMINE 50 MG/ML 1 ML VIAL ONE (23:55)
[2019-01-16] MEDS ORDERED: ONDANSETRON 4 MG/2 ML VIAL ONE (23:55)
== END 2019-01-17 00:49 | disposition home or self-care (01) ==
LOC: EC 22:49
DX: G43.909 Migraine, unspecified, not intractable, without status migrainosus (principal); Z88.1 Allergy status to other antibiotic agents; Z88.5 Allergy status to narcotic agent; Z88.8 Allergy status to other drugs, medicaments and biological substances; Z91.048 Other nonmedicinal substance allergy status; Z88.0 Allergy status to penicillin; Z85.038 Personal history of other malignant neoplasm of large intestine
CPT/HCPCS: 99283; 96374; 96375 ×2; 96376; 96361; J1200; J2405; J1170

== ENCOUNTER 2019-01-19 20:20 | Emergency (ER) | payer OTHER ==
[2019-01-19] MEDS ORDERED: LORazepam 2 MG/ML INJ IM STA (20:24)
[2019-01-19 20:34] LABS: Glucose,Whole Blood 80 mg/dL (75-99)
[2019-01-19] MEDS ORDERED: levETIRAcetam IV 1,000 MG in SALINE 1 100ML.BAG IVPB STA (20:35)
[2019-01-19] MEDS ORDERED: SODIUM CHLORIDE 0.9% 1,000 ML IV STA (20:35)
[2019-01-19 20:47] LABS: Basophils % (A) 1 %; Eosinophils # (A) 0.1 k/uL (0-0.7); Eosinophils % (A) 2 %; HCT 35.9 % (34.0-46.0); HGB 11.5 gm/dL (11.4-16.0); Lymphocytes # (A) 2.6 k/uL (1.0-4.8); Lymphocytes % (A) 37 %; MCH 27.4 pg (25.0-35.0); MCHC 31.9 g/dL (31.0-37.0); MCV 85.6 fL (80.0-100.0); Monocytes # (A) 0.3 k/uL (0-1.0); Monocytes % (A) 4 %; Neutrophils # (A) 3.9 k/uL (1.3-7.7); Neutrophils % (A) 55 %; Platelet Count 302 k/uL (150-450); RBC 4.19 m/uL (3.80-5.40); RDW 14.8 % (11.5-15.5); WBC 7.1 k/uL (3.8-10.6)
[2019-01-19] MEDS ORDERED: PROPOFOL 10 MG/ML 20 ML VIAL IV ONE (20:50)
[2019-01-19] MEDS ORDERED: ROCURONIUM BROMIDE 10 MG/ML 10 ML VIAL IV STA (20:54)
[2019-01-19 20:55] LABS: ALT 62 U/L (9-52); AST 65 U/L (14-36); African American GFR (CKD) >90 (>60 ml/min/1.73 sqM); Albumin 4.2 g/dL (3.5-5.0); Alkaline Phosphatase 292 U/L (38-126); Anion Gap 9 mmol/L; Blood Urea Nitrogen 24 mg/dL (7-17); Calcium 9.7 mg/dL (8.4-10.2); Carbon Dioxide 23 mmol/L (22-30); Chloride 110 mmol/L (98-107); Glucose 86 mg/dL (74-99); Non-African American GFR(CKD) 79 (>60 ml/min/1.73 sqM); Sodium 142 mmol/L (137-145); Total Bilirubin 0.3 mg/dL (0.2-1.3); Total Protein 7.5 g/dL (6.3-8.2)
--- NOTE | 2019-01-19 21:26 | CT ---
EXAMINATION TYPE: CT brain wo con DATE OF EXAM: 01/19/2019 COMPARISON: November 09, 2018 HISTORY: seizure CT DLP: 1095.4 mGycm Automated exposure control for dose reduction was used. FINDINGS: Multiple axial sections were obtained of the brain without contrast. Ventricles have normal size. The re is no mass effect nor midline shift. There is no sign of intracranial hemorrhage. Calvarium is int act. There is complete occlusion right external auditory canal. There is apparent previous right mast oid sinus surgery. IMPRESSION: NEGATIVE CT SCAN OF THE BRAIN. RIGHT SIDE MASTOID SINUS SURGERY AND OCCLUSION RIGHT EXTERNAL AUDITORY CANAL AND RIGHT MIDDLE EAR CAVITY. UNCHANGED.
--- NOTE | 2019-01-19 21:36 | XR ---
EXAMINATION TYPE: XR chest 1V portable DATE OF EXAM: 01/19/2019 COMPARISON: 10/05/2018 HISTORY: Check tube placement TECHNIQUE: Single frontal view of the chest is obtained. FINDINGS: Endotracheal tube is 4 cm from the kevin. Lungs are clear. There is no heart failure. Cos tophrenic angles are clear. Heart appears normal. There are chest leads. IMPRESSION: No active cardiopulmonary disease. Endotracheal tube is in good position.
--- NOTE | 2019-01-19 21:53 | ED ---
General Adult HPI - General Chief complaint: Seizure Stated complaint: Seizure Time Seen by Provider: 01/19/19 20:35 Source: patient Mode of arrival: ambulatory Limitations: no limitations - History of Present Illness Initial comments: Dictation was produced using [employer] dictation software. please excuse any grammatical, word or spelling errors. Chief Complaint: 53-year-old female with past medical history of seizures was transferred by EMS for seizures. History of Present Illness: 53-year-old female she was brought in by EMS for seizures. According to EMS patient had multiple seizures throughout the day. Patient had witnessed tonic-clonic activity by EMS. She was given a total of 20 mg of IM Versed en route to the emergency department.. According to EMS there unclear what her seizure medications are. Not unable to provide history at this time given clinical presentation. EMS did report that she was postictal for several minutes before having continual episodes. PHYSICAL EXAM: General Impression: Active seizures with arms raised and eye twitching HEENT: Normocephalic atraumatic, extra-ocular movements intact, pupils equal and reactive to light bilaterally, mucous membranes moist. Cardiovascular: Heart regular rate and rhythm, S1&S2 audible, no murmurs, rubs or gallops Chest: Lungs clear to auscultation bilaterally, no rhonchi, no wheeze, no rales Abdomen: Bowel sounds present, abdomen soft, non-tender, non-distended, no organomegaly Musculoskeletal: Pulses present and equal in all extremities, no peripheral edema Motor: no focal deficits noted Neurological: CN II-XII grossly intact, no focal motor or sensory deficits noted Skin: Intact with no visualized rashes ED course: An is a 53-year-old female brought in for seizures. She has known history of seizures. She takes seizure medications. Patient is brought in by EMS for seizures today. All signs upon arrival are within acceptable limits. Patient was observed to have multiple seizures today. Patient received 20 mg of IM Versed per EMS. Patient still continued to have seizures. Upon arrival she was actively seizing. Patient was given Ativan. She continued to have seizures regardless. Patient given 1 g of Keppra without adequate control. Decision was made to intubate patient using standard RSI technique. Return evaluation obtained. CBC, metabolic panel is unremarkable. Computed tomography scan of the brain was unremarkable. Chest x-ray showed no acute processes but did show good ET tube placement. Family arrived at bedside. More history was obtained from family. According to parents patient had extensive seizure workup. She is had been seen by multiple neurologists at different hospitals without clear answers of what is causing her symptoms. Regardless, she was on seizure medications and reports that she's been compliant with her medications. Patient had an argument with family members earlier today. Family reports that patient has history of stress-induced episodes. Patient resting comfortably she started on propofol drip. We do not have neurology here at our hospital over the weeken d. Patient will be transferred to [facility]. Discussed patient case with Dr. Carolina who is willing to accept patients care. It was assumed that upon patient's initial arrival that clinical presentation was consistent with status epilepticus is treated accordingly following seizure algorithms. However, after discussion with family and that patient had extensive seizure workup with no findings some clear patient is actually expressing status epilepticus. She is currently intubated and is well-appearing. Patient will be On the ventilator was transferred to [facility]. Patient had some bleeding seen from her NG tube after was placed. Patient was evaluated there is concern of bleeding from the nasopharynx. NG tube was removed old G-tube was placed. This was concerned that maybe this is from a gastric source patient is given Protonix. EKG interpretation: Ventricular rate 77, normal sinus rhythm,. Interval to 206, QS 156, QTC 520. Compared to EKG from 10/05/2018 with normal white QRS right bundle branch block. When appears to be new this EKG is prolonged QTC - Related Data Home Medications Medication Instructions Recorded Confirmed Brivaracetam [Briviact] 50 mg PO BID 08/01/16 01/19/19 clonazePAM [KlonoPIN] 0.5 mg PO BID 08/01/16 01/19/19 diphenhydrAMINE HCL [Benadryl] 25 mg PO HS 09/26/18 01/19/19 lamoTRIgine [LaMICtal] 200 mg PO BID 09/26/18 01/19/19 Acetaminophen Tab [Tylenol Tab] 1,000 mg PO Q6H PRN 10/05/18 01/19/19 ALPRAZolam [Xanax] 0.25 mg PO TID PRN 10/10/18 01/19/19 Melatonin 25mg 25 mg PO HS 11/13/18 01/19/19 Ibuprofen [Motrin] 800 mg PO TID PRN 12/19/18 01/19/19 Topiramate 50 mg PO BID 12/19/18 01/19/19 Ciprofloxacin-Dexameth [Ciprodex 4 drops RIGHT EAR BID 12/29/18 01/19/19 Otic Susp] Allergies Allergy/AdvReac Type Severity Reaction Status Date / Time erythromycin base Allergy Rash/Hives Verified 01/19/19 20:43 iodine Allergy Anaphylaxis Verified 01/19/19 20:43 ketorolac tromethamine Allergy Rash/Hives/ Verified 01/19/19 20:43 [From Toradol] hallucinati ons Penicillins Allergy Anaphylaxis Verified 01/19/19 20:43 acetaminophen [From Fioricet] AdvReac Unknown Verified 01/19/19 20:43 azithromycin AdvReac red face Verified 01/19/19 20:43 butalbital [From Fioricet] AdvReac Unknown Verified 01/19/19 20:43 caffeine [From Fioricet] AdvReac Unknown Verified 01/19/19 20:43 codeine AdvReac Hallucinati Verified 01/19/19 20:43 ons lorazepam [From Ativan] AdvReac Hallucinati Verified 01/19/19 20:43 ons Review of Systems ROS Statement: Those systems with pertinent positive or pertinent negative responses have been documented in the HPI. ROS Other: All systems not noted in ROS Statement are negative. 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, swelling of left lower leg, insomnia, hx hiatal hernia, hx colon cancer, diarrhea, hx psoriasis, Leaky heart valve, episodes of "passing out" History of Any Multi-Drug Resistant Organisms: MRSA Date of last positivie culture/infection: 12/03/2010 MDRO Source:: arm and abdomen Past Surgical History: Appendectomy, Bowel Resection, Cholecystectomy, Ear Surgery, Hysterectomy, Orthopedic Surgery Additional Past Surgical History / Comment(s): frantz knee arthroscopy, hiatal hernia surgery, rt ear surgery to remove middle ear Past Anesthesia/Blood Transfusion Reactions: Postoperative Nausea & Vomiting (PONV) Past Psychological History: Anxiety, Panic Disorder Smoking Status: Never smoker Past Alcohol Use History: None Reported Past Drug Use History: None Reported - Past Family History Mother Family Medical History: No Reported History Additional Family Medical History / Comment(s): . General Exam Limitations: no limitations Course Vital Signs 01/19/19 20:22 Temperature 98.2 F Pulse Rate 83 Respiratory 20 Rate Blood Pressure 168/74 O2 Sat by Pulse 100 Oximetry Procedures - Intubation Sedative: Propofol Mg Given: 140 Paralytic: Rocuronium Mg Given: 70 Laryngoscope: Olivia Size: 3 ET Tube Size: 7.5 ET Tube Uncuffed: No Tube Secured Depth (cm): 22 Tube Secured Location: lips Tube Placement Confirmation: visualized tube passing through cords, equal breath sounds bilaterally, no breath sounds over epigastrium, confirmation by capnometry Patient Tolerated Procedure: well Intubation Complications: none Medical Decision Making - Lab Data Result diagrams: 01/19/19 20:20 01/19/19 20:20 Lab Results 01/19/19 01/19/19 01/19/19 Range/Units 20:20 20:20 20:32 WBC 7.1 (3.8-10.6) k/uL RBC 4.19 (3.80-5.40) m/uL Hgb 11.5 (11.4-16.0) gm/dL Hct 35.9 (34.0-46.0) % MCV 85.6 (80.0-100.0) fL MCH 27.4 (25.0-35.0) pg MCHC 31.9 (31.0-37.0) g/dL RDW 14.8 (11.5-15.5) % Plt Count 302 (150-450) k/uL Neutrophils % 55 % Lymphocytes % 37 % Monocytes % 4 % Eosinophils % 2 % Basophils % 1 % Neutrophils # 3.9 (1.3-7.7) k/uL Lymphocytes # 2.6 (1.0-4.8) k/uL Monocytes # 0.3 (0-1.0) k/uL Eosinophils # 0.1 (0-0.7) k/uL Basophils # 0.0 (0-0.2) k/uL Sodium 142 (137-145) mmol/L Potassium 4.0 (3.5-5.1) mmol/L Chloride 110 H (98-107) mmol/L Carbon Dioxide 23 (22-30) mmol/L Anion Gap 9 mmol/L BUN 24 H (7-17) mg/dL Creatinine 0.85 (0.52-1.04) mg/dL Est GFR (CKD-EPI)AfAm >90 (>60 ml/min/1.73 sqM) Est GFR (CKD-EPI)NonAf 79 (>60 ml/min/1.73 sqM) Glucose 86 (74-99) mg/dL POC Glucose (mg/dL) 80 (75-99) mg/dL POC Glu Route [employer] [place] Calcium 9.7 (8.4-10.2) mg/dL Total Bilirubin 0.3 (0.2-1.3) mg/dL AST 65 H (14-36) U/L ALT 62 H (9-52) U/L Alkaline Phosphatase 292 H (38-126) U/L Total Protein 7.5 (6.3-8.2) g/dL Albumin 4.2 (3.5-5.0) g/dL Critical Care Time Critical Care Time: Yes (31) Disposition Clinical Impression: Status epilepticus Disposition: OTHER INSTITUTION NOT DEFINED Referrals: Scott Medrano MD [Primary Care Provider] - 1-2 days Time of Disposition: 22:21 - Out of Hospital Transfer - Req. Specs Out of Hospital Transfer - Requested Specifics: Other Emergency Center ([facility])
[2019-01-19] MEDS ORDERED: HYDROmorphone 1 MG/ML 1 ML SYRINGE IVP STA (22:22)
[2019-01-19 22:29] LABS: Acetaminophen <10.0 ug/mL; Salicylate <1.0 mg/dL
[2019-01-19] MEDS ORDERED: PROPOFOL 1,000 MG in EMPTY BAG 1 BAG IV ONE (22:39)
[2019-01-19 23:53] VITALS: RESP 15
[2019-01-20 00:08] VITALS: BP 144/65; PULSE 81; TEMP 98
== END 2019-01-19 23:20 | disposition other institution (70) ==
LOC: EC 20:20
DX: G40.901 Epilepsy, unspecified, not intractable, with status epilepticus (principal); F41.0 Panic disorder [episodic paroxysmal anxiety]; Z79.899 Other long term (current) drug therapy; Z88.1 Allergy status to other antibiotic agents; Z88.0 Allergy status to penicillin; Z91.048 Other nonmedicinal substance allergy status; Z88.5 Allergy status to narcotic agent; Z88.6 Allergy status to analgesic agent; Z91.018 Allergy to other foods; Z88.8 Allergy status to other drugs, medicaments and biological substances; Z85.038 Personal history of other malignant neoplasm of large intestine
CPT/HCPCS: 36415; 94002; 93005; 80053; 85025; 83520; 71045; 70450; 99291; 31500; 96365; 96375; 96372; G0480; J2060; J1170; J2704 ×2; J1953; 80329

== ENCOUNTER → 2019-02-14 | Outpatient (CLI) | payer OTHER ==
--- NOTE | 2019-02-16 09:52 | MM ---
Reason for exam: screening (asymptomatic). Last mammogram was performed 3 years and 4 months ago. History: Patient is postmenopausal and has history of colon cancer at age 52. Family history of premenopausal breast cancer in paternal aunt at age 45 and breast cancer in maternal grandmother at age 72. Physical Findings: A clinical breast exam by your physician is recommended on an annual basis and results should be correlated with mammographic findings. MG Screening Mammo w CAD Bilateral CC and MLO view(s) were taken. Prior study comparison: October 17, 2015, bilateral MG screening mammo w CAD. May 29, 2012, bilateral digital screening mammo w/CAD. There are scattered fibroglandular densities. There is chronic nodularity in the left breast laterally. Loop recorder device on the left. No significant changes when compared with prior studies. ASSESSMENT: Negative, BI-RAD 1 RECOMMENDATION: Routine screening mammogram of both breasts in 1 year.
== END ==
LOC: RADMAMWWP 14:48
PROVIDERS: ATTEND Family Medicine
DX: Z12.31 Encounter for screening mammogram for malignant neoplasm of breast (principal); Z80.3 Family history of malignant neoplasm of breast
CPT/HCPCS: 77067

== ENCOUNTER 2019-03-10 03:39 | Emergency (ER) | payer OTHER ==
[2019-03-10 03:47] VITALS: TEMP 97.9
[2019-03-10] MEDS ORDERED: ORPHENADRINE 30 MG/ML 2 ML VIAL IM STA (03:54)
[2019-03-10] MEDS ORDERED: LIDOCAINE 5% PATCH TOPICAL STA (04:27)
--- NOTE | 2019-03-10 04:28 | ED ---
Neck Injury/Pain HPI - General Chief Complaint: Neck Pain/Injury Stated Complaint: Neck and back pain Time Seen by Provider: 03/10/19 03:51 Mode of arrival: ambulatory Limitations: no limitations - History of Present Illness Initial Comments: Reshma is a 53-year-old female who suffers from chronic neck pain. Patient has had this worked up thoroughly by neurosurgery, she has undergone imaging including MRI and has been advised by neurosurgery there is structurally no abnormalities that require neurosurgical intervention and she has been referred to dip painter. Patient reports that her chronic neck pain is exacerbated by looking down or looking up, she does admit she's been crafting lately making [employer] cards and has had poor posture which exacerbates her pain. Patient states that due to that she's been unable sleep secondary to pain for 3 days. Patient states she's taken Motrin with no relief, she saw her neurosurgeon who prescribed Robaxin 750 3 times a day and she reports that not improving her pain whatsoever. She denies any focal weaknesses reports that she has chronic neck pain. It seems to be worsened night when she tries to lay down she can't sleep. Patient states she's been taking Benadryl I with minimal improvement. - Related Data Home Medications Medication Instructions Recorded Confirmed Brivaracetam [Briviact] 50 mg PO BID 08/01/16 01/19/19 clonazePAM [KlonoPIN] 0.5 mg PO BID 08/01/16 01/19/19 diphenhydrAMINE HCL [Benadryl] 25 mg PO HS 09/26/18 01/19/19 lamoTRIgine [LaMICtal] 200 mg PO BID 09/26/18 01/19/19 Acetaminophen Tab [Tylenol Tab] 1,000 mg PO Q6H PRN 10/05/18 01/19/19 ALPRAZolam [Xanax] 0.25 mg PO TID PRN 10/10/18 01/19/19 Melatonin 25mg 25 mg PO HS 11/13/18 01/19/19 Ibuprofen [Motrin] 800 mg PO TID PRN 12/19/18 01/19/19 Topiramate 50 mg PO BID 12/19/18 01/19/19 Ciprofloxacin-Dexameth [Ciprodex 4 drops RIGHT EAR BID 12/29/18 01/19/19 Otic Susp] Previous Rx's Medication Instructions Recorded Diclofenac Sodium Gel [Voltaren 4 gm TOPICAL QID #1 tub 03/10/19 Gel] Lidocaine 5% Patch [Lidoderm] 1 patch TOPICAL DAILY #30 patch 03/10/19 Allergies Allergy/AdvReac Type Severity Reaction Status Date / Time erythromycin base Allergy Rash/Hives Verified 03/10/19 03:47 iodine Allergy Anaphylaxis Verified 03/10/19 03:47 ketorolac tromethamine Allergy Rash/Hives/ Verified 03/10/19 03:47 [From Toradol] hallucinati ons Penicillins Allergy Anaphylaxis Verified 03/10/19 03:47 acetaminophen [From Fioricet] AdvReac Unknown Verified 03/10/19 03:47 azithromycin AdvReac red face Verified 03/10/19 03:47 butalbital [From Fioricet] AdvReac Unknown Verified 03/10/19 03:47 caffeine [From Fioricet] AdvReac Unknown Verified 03/10/19 03:47 codeine AdvReac Hallucinati Verified 03/10/19 03:47 ons lorazepam [From Ativan] AdvReac Hallucinati Verified 03/10/19 03:47 ons Review of Systems ROS Statement: Those systems with pertinent positive or pertinent negative responses have been documented in the HPI. ROS Other: All systems not noted in ROS Statement are negative. 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, swelling of left lower leg, insomnia, hx hiatal hernia, hx colon cancer, diarrhea, hx psoriasis, Leaky heart valve, episodes of "passing out" History of Any Multi-Drug Resistant Organisms: MRSA Date of last positivie culture/infection: 12/03/2010 MDRO Source:: arm and abdomen Past Surgical History: Appendectomy, Bowel Resection, Cholecystectomy, Ear Surgery, Hysterectomy, Orthopedic Surgery Additional Past Surgical History / Comment(s): frantz knee arthroscopy, hiatal hernia surgery, rt ear surgery to remove middle ear Past Anesthesia/Blood Transfusion Reactions: Postoperative Nausea & Vomiting (PONV) Past Psychological History: Anxiety, Panic Disorder Smoking Status: Never smoker Past Alcohol Use History: None Reported Past Drug Use History: None Reported - Past Family History Mother Family Medical History: No Reported History Additional Family Medical History / Comment(s): . General Exam - General Exam Comments Initial Comments: Physical Exam GENERAL: Patient is well-developed and well-nourished. Patient is nontoxic and well-hydrated and is in no distress. HENT: Normocephalic, Atraumatic. EYES: PERRL, EOMI PULMONARY: Unlabored respirations. CARDIOVASCULAR: RRR Warm and well perfused extremities ABDOMEN: Non-distended SKIN: No rashes or bruising : Deferred NEUROLOGIC: Alert and oriented Normal speech Normal gait MUSCULOSKELETAL: Moving all extremities with no apparent injury PSYCHIATRIC: No SI/HI Limitations: no limitations Course Vital Signs 03/10/19 03:44 Temperature 97.9 F Pulse Rate 70 Respiratory 20 Rate Blood Pressure 131/73 O2 Sat by Pulse 100 Oximetry Medical Decision Making - Medical Decision Making The patient was seen and evaluated, history is obtained from the patient, mother and father bedside next line patient has chronic neck pain which seems to be positional and exacerbated by certain activities. Patient admits to not being compliant with restraint from these activities and has been making [place] cards lately which requires her to look down all day and because of that she can't sleep at night due to the pain. She states that Motrin doesn't help her pain so she stopped taking it. She does not feel that the 750 mg of Robaxin 3 times daily is helping. She states she takes Xanax at night to help her sleep at that's not helping. Patient doesn't seem to be amenable to any treatment aside from her chronic pain medications. Patient reports ALLERGIES to Toradol, she reports anti-i nflammatories anxiolytics and muscle relaxers to help. She states she can't use anything topical because she can't tolerate the smell. I re-evaluated the patient, advised she can double her robaxin, advised to start taking motrin TID, heat/ice Disposition Clinical Impression: Strain of neck muscle Disposition: HOME SELF-CARE Condition: Stable Additional Instructions: You can take up to 2 Robaxin at a time 3 times daily Resume taking Motrin 3 times daily Apply a Lidoderm patch for 12 hours a day Apply Voltaren gel topically when you're not wearing the Lidoderm patch Follow up with dip painter on Tuesday as scheduled Turned to the ER if he develop any worsening or intolerable pain. Weakness in the arms or legs. New or concerning symptoms. Prescriptions: Lidocaine 5% Patch [Lidoderm] 1 patch TOPICAL DAILY #30 patch Diclofenac Sodium Gel [Voltaren Gel] 4 gm TOPICAL QID #1 tub Is patient prescribed a controlled substance at d/c from ED?: No Referrals: Scott Medrano MD [Primary Care Provider] - 1-2 days
[2019-03-10 05:53] VITALS: BP 124/65; PULSE 60; RESP 18
== END 2019-03-10 05:53 | disposition home or self-care (01) ==
LOC: EC 03:39
DX: S16.1XXA Strain of muscle, fascia and tendon at neck level, initial encounter (principal); G40.909 Epilepsy, unspecified, not intractable, without status epilepticus; F41.0 Panic disorder [episodic paroxysmal anxiety]; M79.7 Fibromyalgia; Z79.899 Other long term (current) drug therapy; Z88.1 Allergy status to other antibiotic agents; Z91.048 Other nonmedicinal substance allergy status; Z88.5 Allergy status to narcotic agent; Z88.6 Allergy status to analgesic agent; Z91.018 Allergy to other foods; Z88.8 Allergy status to other drugs, medicaments and biological substances; X58.XXXA Exposure to other specified factors, initial encounter
CPT/HCPCS: 99283; 96372; J2360

== ENCOUNTER 2019-03-30 01:04 | Emergency (ER) | payer OTHER ==
[2019-03-30 01:24] VITALS: RESP 18; TEMP 98
[2019-03-30] MEDS ORDERED: SODIUM CHLORIDE 0.9% 500 ML 500 ML IV ONE (01:28)
[2019-03-30] MEDS ORDERED: ONDANSETRON 4 MG/2 ML VIAL IVP STA (01:28)
[2019-03-30] MEDS ORDERED: HYDROmorphone 1 MG/ML 1 ML SYRINGE IVP STA (01:28)
[2019-03-30] MEDS ORDERED: diphenhydrAMINE 50 MG CAP PO STA (01:29)
--- NOTE | 2019-03-30 01:39 | ED ---
Headache HPI - General Chief Complaint: Headache Stated Complaint: headache Time Seen by Provider: 03/30/19 01:11 Mode of arrival: EMS - History of Present Illness Initial Comments: 53-year-old female patient presents to the emergency department today for evaluation of migraine headache. Patient states that she frequently gets headaches similar to this. She reports dizziness and light sensitivity. States that she does feel nauseous but denies any vomiting. Denies numbness, to going, weakness or extremities. She denies any recent head injury. States she did take Tylenol and a Minter earlier today without relief. She denies any new symptoms with this. Patient denies any recent rash, fever, chills, shortness breath, chest pain, abdominal pain, diarrhea, constipation, back pain, hematuria, dysuria, urinary urgency, urinary frequency, or any other complaints. - Related Data Home Medications Medication Instructions Recorded Confirmed Brivaracetam [Briviact] 50 mg PO BID 08/01/16 01/19/19 clonazePAM [KlonoPIN] 0.5 mg PO BID 08/01/16 01/19/19 diphenhydrAMINE HCL [Benadryl] 25 mg PO HS 09/26/18 01/19/19 lamoTRIgine [LaMICtal] 200 mg PO BID 09/26/18 01/19/19 Acetaminophen Tab [Tylenol Tab] 1,000 mg PO Q6H PRN 10/05/18 01/19/19 ALPRAZolam [Xanax] 0.25 mg PO TID PRN 10/10/18 01/19/19 Melatonin 25mg 25 mg PO HS 11/13/18 01/19/19 Ibuprofen [Motrin] 800 mg PO TID PRN 12/19/18 01/19/19 Topiramate 50 mg PO BID 12/19/18 01/19/19 Ciprofloxacin-Dexameth [Ciprodex 4 drops RIGHT EAR BID 12/29/18 01/19/19 Otic Susp] Previous Rx's Medication Instructions Recorded Diclofenac Sodium Gel [Voltaren 4 gm TOPICAL QID #1 tub 03/10/19 Gel] Lidocaine 5% Patch [Lidoderm] 1 patch TOPICAL DAILY #30 patch 03/10/19 Allergies Allergy/AdvReac Type Severity Reaction Status Date / Time erythromycin base Allergy Rash/Hives Verified 03/10/19 03:47 iodine Allergy Anaphylaxis Verified 03/10/19 03:47 ketorolac tromethamine Allergy Rash/Hives/ Verified 03/10/19 03:47 [From Toradol] hallucinati ons Penicillins Allergy Anaphylaxis Verified 03/10/19 03:47 acetaminophen [From Fioricet] AdvReac Unknown Verified 03/10/19 03:47 azithromycin AdvReac red face Verified 03/10/19 03:47 butalbital [From Fioricet] AdvReac Unknown Verified 03/10/19 03:47 caffeine [From Fioricet] AdvReac Unknown Verified 03/10/19 03:47 codeine AdvReac Hallucinati Verified 03/10/19 03:47 ons lorazepam [From Ativan] AdvReac Hallucinati Verified 03/10/19 03:47 ons Review of Systems ROS Statement: Those systems with pertinent positive or pertinent negative responses have been documented in the HPI. ROS Other: All systems not noted in ROS Statement are negative. 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, swelling of left lower leg, insomnia, hx hiatal hernia, hx colon cancer, diarrhea, hx psoriasis, Leaky heart valve, episodes of "passing out" History of Any Multi-Drug Resistant Organisms: MRSA Date of last positivie culture/infection: 12/03/2010 MDRO Source:: arm and abdomen Past Surgical History: Appendectomy, Bowel Resection, Cholecystectomy, Ear Surgery, Hysterectomy, Orthopedic Surgery Additional Past Surgical History / Comment(s): frantz knee arthroscopy, hiatal hernia surgery, rt ear surgery to remove middle ear Past Anesthesia/Blood Transfusion Reactions: Postoperative Nausea & Vomiting (PONV) Past Psychological History: Anxiety, Panic Disorder Smoking Status: Never smoker Past Alcohol Use History: None Reported Past Drug Use History: None Reported - Past Family History Mother Family Medical History: No Reported History Additional Family Medical History / Comment(s): . General Exam General appearance: alert, in no apparent distress, other (This is a well- developed, well-nourished adult female patient in no acute distress. Vital si gns upon presentation are temperature 98.2F pulse 71, respirations 18, blood pressure 117/62, pulse ox 100% on room air.) Eye exam: Present: normal appearance, PERRL, EOMI. Absent: scleral icterus, conjunctival injection, nystagmus, periorbital swelling ENT exam: Present: normal exam, normal oropharynx, mucous membranes moist Respiratory exam: Present: normal lung sounds bilaterally. Absent: respiratory distress, wheezes, rales, rhonchi, stridor Cardiovascular Exam: Present: regular rate, normal rhythm, normal heart sounds. Absent: systolic murmur, diastolic murmur, rubs, gallop, clicks GI/Abdominal exam: Present: soft, normal bowel sounds. Absent: distended, te nderness, guarding, rebound, rigid Neurological exam: Present: alert, oriented X3, CN II-XII intact Psychiatric exam: Present: normal affect, normal mood Skin exam: Present: warm, dry, intact, normal color. Absent: rash Course Vital Signs 03/30/19 01:22 Temperature 98 F Pulse Rate 71 Respiratory 18 Rate Blood Pressure 107/62 O2 Sat by Pulse 100 Oximetry Medical Decision Making - Medical Decision Making 53-year-old female patient presents to emergency department today for evaluation of migraine headache. Patient states symptoms started this morning upon awakening. She does have history of migraines, states her symptoms are consistent with her usual migraine pattern. She denies any new symptoms. Denies this being the worse headache of her life. Physical examination is unremarkable. She is neurologically intact with no focal deficits. We did give IV fluids and medications here in the emergency department. Upon reevaluation she reports complete improvement of symptoms. She'll be discharged follow-up with her primary care physician for recheck in 1-2 days. Return parameters were discussed in detail. She verbalizes understanding and agrees with this plan. Disposition Clinical Impression: Migraine headache Disposition: HOME SELF-CARE Condition: Good Instructions (If sedation given, give patient instructions): Migraine Headache (ED) Additional Instructions: Increase fluids. Rest. Follow-up with the primary care physician for recheck in 1-2 days. Return to the emergency department immediately for any new, worsening, or concerning symptoms. Is patient prescribed a controlled substance at d/c from ED?: No Referrals: Scott Medrano MD [Primary Care Provider] - 1-2 days Time of Disposition: 02:30
[2019-03-30 02:46] VITALS: BP 110/89; PULSE 69
== END 2019-03-30 02:51 | disposition home or self-care (01) ==
LOC: EC 01:04
DX: G43.909 Migraine, unspecified, not intractable, without status migrainosus (principal); G40.409 Other generalized epilepsy and epileptic syndromes, not intractable, without status epilepticus; M79.7 Fibromyalgia; F41.0 Panic disorder [episodic paroxysmal anxiety]; Z79.899 Other long term (current) drug therapy; Z88.1 Allergy status to other antibiotic agents; Z91.048 Other nonmedicinal substance allergy status; Z88.5 Allergy status to narcotic agent; Z88.0 Allergy status to penicillin; Z88.6 Allergy status to analgesic agent; Z88.8 Allergy status to other drugs, medicaments and biological substances; Z91.018 Allergy to other foods; Z85.038 Personal history of other malignant neoplasm of large intestine
CPT/HCPCS: 99283; J2405; J1170

== ENCOUNTER 2019-03-31 11:22 | Emergency (ER) | payer OTHER ==
--- NOTE | 2019-03-31 11:52 | ED ---
Seizure HPI - General Chief Complaint: Seizure Stated Complaint: seizures Time Seen by Provider: 03/31/19 11:49 Source: patient, family Mode of arrival: wheelchair Limitations: no limitations - History of Present Illness Initial Comments: 53-year-old female presents today for chief complaint of seizures. Patient states that she needs a refill of her Klonopin and that is why she is having seizures. Patient states that she has stress-induced seizures and has extensive outpatient workup and had EEGs that have been normal as well as imaging studies of the brain. Patient states she is awake during the seizures. Patient states her whole body shakes. Patient denies incontinence biting the tongue. Patient states that he is she has been taking her Lamictal however she is out of her Klonopin 0.5 mg twice a day. Patient states that she has chronic headaches but no longer has severe migraines, she states she feels the pain actually from her chronic neck pain. Patient states that she was supposed to have her Klonopin refilled by her primary care provider who stated he described it she states that the pharmacy never got the prescription she has been unable to get a hold of her primary care provider she states she was upset and then presents emergency department for medication refill. Once emergency Department patient states she became stressed out and felt like she had a seizure patient was awake and talking and able to ambulate to the stretcher. - Related Data Home Medications Medication Instructions Recorded Confirmed Brivaracetam [Briviact] 50 mg PO BID 08/01/16 01/19/19 clonazePAM [KlonoPIN] 0.5 mg PO BID 08/01/16 01/19/19 diphenhydrAMINE HCL [Benadryl] 25 mg PO HS 09/26/18 01/19/19 lamoTRIgine [LaMICtal] 200 mg PO BID 09/26/18 01/19/19 Acetaminophen Tab [Tylenol Tab] 1,000 mg PO Q6H PRN 10/05/18 01/19/19 ALPRAZolam [Xanax] 0.25 mg PO TID PRN 10/10/18 01/19/19 Melatonin 25mg 25 mg PO HS 11/13/18 01/19/19 Ibuprofen [Motrin] 800 mg PO TID PRN 12/19/18 01/19/19 Topiramate 50 mg PO BID 12/19/18 01/19/19 Ciprofloxacin-Dexameth [Ciprodex 4 drops RIGHT EAR BID 12/29/18 01/19/19 Otic Susp] Previous Rx's Medication Instructions Recorded Diclofenac Sodium Gel [Voltaren 4 gm TOPICAL QID #1 tub 03/10/19 Gel] Lidocaine 5% Patch [Lidoderm] 1 patch TOPICAL DAILY #30 patch 03/10/19 clonazePAM [KlonoPIN] 0.5 mg PO BID 3 Days #6 tab 03/31/19 Allergies Allergy/AdvReac Type Severity Reaction Status Date / Time erythromycin base Allergy Rash/Hives Verified 03/31/19 11:35 iodine Allergy Anaphylaxis Verified 03/31/19 11:35 ketorolac tromethamine Allergy Rash/Hives/ Verified 03/31/19 11:35 [From Toradol] hallucinati ons Penicillins Allergy Anaphylaxis Verified 03/31/19 11:35 acetaminophen [From Fioricet] AdvReac Unknown Verified 03/31/19 11:35 azithromycin AdvReac red face Verified 03/31/19 11:35 butalbital [From Fioricet] AdvReac Unknown Verified 03/31/19 11:35 caffeine [From Fioricet] AdvReac Unknown Verified 03/31/19 11:35 codeine AdvReac Hallucinati Verified 03/31/19 11:35 ons lorazepam [From Ativan] AdvReac Hallucinati Verified 03/31/19 11:35 ons Review of Systems ROS Statement: Those systems with pertinent positive or pertinent negative responses have been documented in the HPI. ROS Other: All systems not noted in ROS Statement are negative. 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, swelling of left lower leg, insomnia, hx hiatal hernia, hx colon cancer, diarrhea, hx psoriasis, Leaky heart valve, episodes of "passing out" History of Any Multi-Drug Resistant Organisms: MRSA Date of last positivie culture/infection: 12/03/2010 MDRO Source:: arm and abdomen Past Surgical History: Appendectomy, Bowel Resection, Cholecystectomy, Ear Surgery, Hysterectomy, Orthopedic Surgery Additional Past Surgical History / Comment(s): frantz knee arthroscopy, hiatal hernia surgery, rt ear surgery to remove middle ear Past Anesthesia/Blood Transfusion Reactions: Postoperative Nausea & Vomiting (PONV) Past Psychological History: Anxiety, Panic Disorder Smoking Status: Never smoker Past Alcohol Use History: None Reported Past Drug Use History: None Reported - Past Family History Mother Family Medical History: No Reported History Additional Family Medical History / Comment(s): . General Exam - General Exam Comments Initial Comments: General: The patient is awake and alert, in no distress, and does not appear a cutely ill. Eye: +3 mm pupils are equal, round and reactive to light, extra-ocular movements are intact. No nystagmus. There is normal conjunctiva bilaterally. No signs of icterus. Ears, nose, mouth and throat: There are moist mucous membranes and no oral lesions. Neck: The neck is supple, there is no tenderness or JVD. Cardiovascular: There is a regular rate and rhythm. No murmur, rub or gallop is appreciated. Respiratory: Lungs are clear to auscultation, respirations are non-labored, breath sounds are equal. No wheezes, stridor, rales, or rhonchi. Gastrointestinal: Soft, non-distended, non-tender abdomen without masses or or ganomegaly noted. There is no rebound or guarding present. Musculoskeletal: Normal ROM, no tenderness. Strength 5/5. Sensation intact. Radial pulses equal bilaterally 2+. Neurological: A&O x 3. CN II-XII intact, There are no obvious motor or sensory deficits. Coordination appears grossly intact. Speech is normal. No pronator drift finger to nose with a coordinated. Skin: Skin is warm and dry and no rashes or lesions are noted. Psychiatric: Cooperative, appropriate mood & affect, normal judgment. Limitations: no limitations Course Vital Signs 03/31/19 03/31/19 11:35 13:08 Temperature 98.2 F 98.0 F Pulse Rate 70 69 Respiratory 16 18 Rate Blood Pressure 135/80 130/62 O2 Sat by Pulse 100 100 Oximetry Medical Decision Making - Medical Decision Making 53-year-old female presenting today for chief complaint of seizure. Patient states this is because she is out of her Klonopin and presented for medication refill patient presented for a seizure at this did not appear to be a true tonic-clonic seizure this patient was able to control the movements had very lax extremities and protected her arm from falling when arm was dropped she even talked and was very alert during her "whole body shaking"--family states this is pretty typical she states that she has extensive EEGs which have been normal as as well as outpatient imaging studies. Patient had CT of the brain which revealed no acute findings. Patient's laboratories studies stable patient no incontinence no biting of the tongue. Patient no focal neurological deficits and appears well patient states she only wants her Klonopin refilled. Patient's Klonopin was given in the emergency department she was discharged with a short prescription which improves importance of primary care follow-up as well as follow up with her neurologist were discussed patient was agreeable was discharged. While patient did refuse verbally Ativan during her seizure in the ER. - Lab Data Result diagrams: 03/31/19 12:00 03/31/19 12:00 Lab Results 03/31/19 03/31/19 03/31/19 Range/Units 12:00 12:00 12:00 WBC 7.8 (3.8-10.6) k/uL RBC 4.15 (3.80-5.40) m/uL Hgb 11.2 L (11.4-16.0) gm/dL Hct 35.1 (34.0-46.0) % MCV 84.7 (80.0-100.0) fL MCH 27.1 (25.0-35.0) pg MCHC 31.9 (31.0-37.0) g/dL RDW 14.7 (11.5-15.5) % Plt Count 273 (150-450) k/uL Sodium 144 (137-145) mmol/L Potassium 4.5 (3.5-5.1) mmol/L Chloride 111 H (98-107) mmol/L Carbon Dioxide 23 (22-30) mmol/L Anion Gap 10 mmol/L BUN 21 H (7-17) mg/dL Creatinine 0.81 (0.52-1.04) mg/dL Est GFR (CKD-EPI)AfAm >90 (>60 ml/min/1.73 sqM) Est GFR (CKD-EPI)NonAf 84 (>60 ml/min/1.73 sqM) Glucose 91 (74-99) mg/dL Calcium 9.7 (8.4-10.2) mg/dL Total Bilirubin 0.4 (0.2-1.3) mg/dL AST 46 H (14-36) U/L ALT 29 (4-34) U/L Alkaline Phosphatase 239 H (38-126) U/L CK-MB (CK-2) 1.1 (0.0-2.4) ng/mL Total Protein 6.9 (6.3-8.2) g/dL Albumin 4.1 (3.5-5.0) g/dL Disposition Clinical Impression: Seizure, Medication refill Disposition: HOME SELF-CARE Condition: Good Instructions (If sedation given, give patient instructions): Recurrent Seizures in Adults (ED) Additional Instructions: Please use medication as discussed. Please follow-up with family doctor in the next 2 days. Please return to emergency room if the symptoms increase or worsen or for any other concerns. Prescriptions: clonazePAM [KlonoPIN] 0.5 mg PO BID 3 Days #6 tab Is patient prescribed a controlled substance at d/c from ED?: No Referrals: Scott Medrano MD [Primary Care Provider] - 1-2 days Jennifer Reina MD [Medical Doctor] - 1-2 days Time of Disposition: 13:29
[2019-03-31 12:30] LABS: HCT 35.1 % (34.0-46.0); HGB 11.2 gm/dL (11.4-16.0); MCH 27.1 pg (25.0-35.0); MCHC 31.9 g/dL (31.0-37.0); MCV 84.7 fL (80.0-100.0); Mean Platelet Volume 8.1; Platelet Count 273 k/uL (150-450); RBC 4.15 m/uL (3.80-5.40); RDW 14.7 % (11.5-15.5); WBC 7.8 k/uL (3.8-10.6)
--- NOTE | 2019-03-31 12:34 | CT ---
EXAMINATION TYPE: CT brain wo con DATE OF EXAM: 03/31/2019 HISTORY: Seizure CT DLP: 1040.4 mGycm. Automated Exposure Control for Dose Reduction was Utilized. TECHNIQUE: CT scan of the head is performed without contrast. COMPARISON: CT brain January 19, 2019. FINDINGS: There is no acute intracranial hemorrhage or midline shift identified. Ventricles and sul ci normal in size. Rivera-white matter differentiation maintained.. The globes are intact and the visu alized sinuses are clear. Persistent hyperostosis frontalis. 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 IMPRESSION: No acute intracranial hemorrhage or midline shift. No significant change from prior.
[2019-03-31 12:40] LABS: ALT 29 U/L (4-34); AST 46 U/L (14-36); African American GFR (CKD) >90 (>60 ml/min/1.73 sqM); Albumin 4.1 g/dL (3.5-5.0); Alkaline Phosphatase 239 U/L (38-126); Anion Gap 10 mmol/L; Blood Urea Nitrogen 21 mg/dL (7-17); Calcium 9.7 mg/dL (8.4-10.2); Carbon Dioxide 23 mmol/L (22-30); Chloride 111 mmol/L (98-107); Glucose 91 mg/dL (74-99); Non-African American GFR(CKD) 84 (>60 ml/min/1.73 sqM); Potassium 4.5 mmol/L (3.5-5.1); Sodium 144 mmol/L (137-145); Total Bilirubin 0.4 mg/dL (0.2-1.3); Total Protein 6.9 g/dL (6.3-8.2)
[2019-03-31 13:10] VITALS: BP 130/62; PULSE 69; RESP 18; TEMP 98
[2019-03-31] MEDS ORDERED: clonazePAM 0.5 MG TAB PO STA (13:27)
== END 2019-03-31 13:44 | disposition home or self-care (01) ==
LOC: EC 11:22
DX: Z76.0 Encounter for issue of repeat prescription (principal); G40.909 Epilepsy, unspecified, not intractable, without status epilepticus; G89.29 Other chronic pain; M54.2 Cervicalgia; M79.7 Fibromyalgia; G43.909 Migraine, unspecified, not intractable, without status migrainosus; Z85.038 Personal history of other malignant neoplasm of large intestine; Z86.14 Personal history of Methicillin resistant Staphylococcus aureus infection; Z79.899 Other long term (current) drug therapy; Z88.1 Allergy status to other antibiotic agents; Z91.048 Other nonmedicinal substance allergy status; Z88.6 Allergy status to analgesic agent; Z88.0 Allergy status to penicillin; Z88.5 Allergy status to narcotic agent; Z88.8 Allergy status to other drugs, medicaments and biological substances
CPT/HCPCS: 36415; 70450; 80053; 82553; 85027; 99284

== ENCOUNTER 2019-04-10 02:07 | Emergency (ER) | payer OTHER ==
[2019-04-10 02:22] VITALS: TEMP 97.9
[2019-04-10 02:23] LABS: Glucose,Whole Blood 111 mg/dL (75-99)
[2019-04-10] MEDS ORDERED: methylPREDNISolone SOD SUCCI 125 MG/2 ML VIAL IV STA (02:26)
[2019-04-10] MEDS ORDERED: diphenhydrAMINE 50 MG/ML 1 ML VIAL IVP STA (02:26)
[2019-04-10] MEDS ORDERED: FAMOTIDINE 20 MG/2 ML VIAL IV STA (02:26)
--- NOTE | 2019-04-10 02:33 | ED ---
Neuro HPI - General Chief Complaint: Neuro Symptoms/Deficit Stated Complaint: code stroke Time Seen by Provider: 04/10/19 02:10 Source: EMS Mode of arrival: EMS Limitations: no limitations - History of Present Illness Is the patient presenting with stroke symptoms?: Yes Last Known Well Date: 04/10/19 Last Known Well Time: 00:45 -: minutes(s) Initial Comments: This patient is a 53-year-old woman who presents with the complaint that she is having left arm, leg weakness. The patient stated that she had gone to bed at 12:45 AM. She woke up just before 2 AM with the urge to use the bathroom. She states she was not able to walk back from the bathroom. She complained of having left face, arm and leg weakness. Patient also complained of severe head ache. Patient activated EMS who brought her directly here. Location: left arm, left leg History of same: No Place: home Quality: weak, numb Improves With: none Worsens With: none On Anticoagulants: No Context: sudden onset Associated Symptoms: headaches Treatments Prior to Arrival: none - Related Data Home Medications: Home Medications Medication Instructions Recorded Confirmed Brivaracetam [Briviact] 50 mg PO BID 08/01/16 01/19/19 clonazePAM [KlonoPIN] 0.5 mg PO BID 08/01/16 01/19/19 diphenhydrAMINE HCL [Benadryl] 25 mg PO HS 09/26/18 01/19/19 lamoTRIgine [LaMICtal] 200 mg PO BID 09/26/18 01/19/19 Acetaminophen Tab [Tylenol Tab] 1,000 mg PO Q6H PRN 10/05/18 01/19/19 ALPRAZolam [Xanax] 0.25 mg PO TID PRN 10/10/18 01/19/19 Melatonin 25mg 25 mg PO HS 11/13/18 01/19/19 Ibuprofen [Motrin] 800 mg PO TID PRN 12/19/18 01/19/19 Topiramate 50 mg PO BID 12/19/18 01/19/19 Ciprofloxacin-Dexameth [Ciprodex 4 drops RIGHT EAR BID 12/29/18 01/19/19 Otic Susp] Previous Rx's Medication Instructions Recorded Diclofenac Sodium Gel [Voltaren 4 gm TOPICAL QID #1 tub 03/10/19 Gel] Lidocaine 5% Patch [Lidoderm] 1 patch TOPICAL DAILY #30 patch 03/10/19 clonazePAM [KlonoPIN] 0.5 mg PO BID 3 Days #6 tab 03/31/19 Allergies/Adverse Reactions: Allergies Allergy/AdvReac Type Severity Reaction Status Date / Time erythromycin base Allergy Rash/Hives Verified 04/10/19 02:21 iodine Allergy Anaphylaxis Verified 04/10/19 02:21 ketorolac tromethamine Allergy Rash/Hives/ Verified 04/10/19 02:21 [From Toradol] hallucinati ons Penicillins Allergy Anaphylaxis Verified 04/10/19 02:21 acetaminophen [From Fioricet] AdvReac Unknown Verified 04/10/19 02:21 azithromycin AdvReac red face Verified 04/10/19 02:21 butalbital [From Fioricet] AdvReac Unknown Verified 04/10/19 02:21 caffeine [From Fioricet] AdvReac Unknown Verified 04/10/19 02:21 codeine AdvReac Hallucinati Verified 04/10/19 02:21 ons lorazepam [From Ativan] AdvReac Hallucinati Verified 04/10/19 02:21 ons Review of Systems ROS Statement: Those systems with pertinent positive or pertinent negative responses have been documented in the HPI. ROS Other: All systems not noted in ROS Statement are negative. Constitutional: Denies: fever, chills Eyes: Reports: eye pain. Denies: vision change Respiratory: Denies: cough, dyspnea Cardiovascular: Denies: chest pain, palpitations, syncope Gastrointestinal: Reports: nausea. Denies: abdominal pain, vomiting Genitourinary: Denies: dysuria, hematuria Musculoskeletal: Denies: back pain Skin: Denies: rash Neurological: Reports: headache, weakness, numbness General Exam Limitations: no limitations General appearance: alert, in no apparent distress Head exam: Present: atraumatic, normocephalic Eye exam: Present: PERRL, EOMI ENT exam: Present: normal oropharynx Neck exam: Present: normal inspection, full ROM Respiratory exam: Present: normal lung sounds bilaterally. Absent: respiratory distress, wheezes, rales, rhonchi, stridor Cardiovascular Exam: Present: regular rate, normal rhythm, normal heart sounds. Absent: systolic murmur, diastolic murmur, rubs, gallop GI/Abdominal exam: Present: soft. Absent: tenderness, guarding, rebound, mass Extremities exam: Present: normal inspection, normal capillary refill. Absent: pedal edema, calf tenderness Back exam: Present: normal inspection Neurological exam: Present: alert, oriented X3 Expanded Neurological exam: Present: protecting the airway Patient oriented to: Present: person, place, time Speech: Present: fluid speech Eye Response: (4) open spontaneously Motor Response: (6) obeys commands Verbal Response: (5) oriented Elmer Total: 15 Skin exam: Present: warm, dry, intact, normal color. Absent: rash Stroke MDM - Lab Data Result diagrams: 04/10/19 02:28 04/10/19 02:28 Lab Results 04/10/19 04/10/19 04/10/19 Range/Units 02:22 02:28 02:28 WBC 8.2 (3.8-10.6) k/uL RBC 3.94 (3.80-5.40) m/uL Hgb 10.6 L (11.4-16.0) gm/dL Hct 33.4 L (34.0-46.0) % MCV 84.9 (80.0-100.0) fL MCH 26.9 (25.0-35.0) pg MCHC 31.7 (31.0-37.0) g/dL RDW 15.0 (11.5-15.5) % Plt Count 244 (150-450) k/uL Neutrophils % 58 % Lymphocytes % 36 % Monocytes % 3 % Eosinophils % 2 % Basophils % 1 % Neutrophils # 4.7 (1.3-7.7) k/uL Lymphocytes # 2.9 (1.0-4.8) k/uL Monocytes # 0.3 (0-1.0) k/uL Eosinophils # 0.2 (0-0.7) k/uL Basophils # 0.0 (0-0.2) k/uL PT (9.0-12.0) sec INR (<1.2) APTT (22.0-30.0) sec Sodium 142 (137-145) mmol/L Potassium 3.9 (3.5-5.1) mmol/L Chloride 110 H (98-107) mmol/L Carbon Dioxide 25 (22-30) mmol/L Anion Gap 7 mmol/L BUN 26 H (7-17) mg/dL Creatinine 1.01 (0.52-1.04) mg/dL Est GFR (CKD-EPI)AfAm 74 (>60 ml/min/1.73 sqM) Est GFR (CKD-EPI)NonAf 64 (>60 ml/min/1.73 sqM) Glucose 98 (74-99) mg/dL POC Glucose (mg/dL) 111 H (75-99) mg/dL POC Glu Studio Designer ID Everardo Velasquez Calcium 9.3 (8.4-10.2) mg/dL Total Bilirubin 0.2 (0.2-1.3) mg/dL AST 31 (14-36) U/L ALT 20 (4-34) U/L Alkaline Phosphatase 211 H (38-126) U/L Total Creatine Kinase (30-135) U/L CK-MB (CK-2) (0.0-2.4) ng/mL CK-MB (CK-2) Rel Index Troponin I (0.000-0.034) ng/mL Total Protein 6.9 (6.3-8.2) g/dL Albumin 4.0 (3.5-5.0) g/dL 04/10/19 04/10/19 Range/Units 02:28 02:28 WBC (3.8-10.6) k/uL RBC (3.80-5.40) m/uL Hgb (11.4-16.0) gm/dL Hct (34.0-46.0) % MCV (80.0-100.0) fL MCH (25.0-35.0) pg MCHC (31.0-37.0) g/dL RDW (11.5-15.5) % Plt Count (150-450) k/uL Neutrophils % % Lymphocytes % % Monocytes % % Eosinophils % % Basophils % % Neutrophils # (1.3-7.7) k/uL Lymphocytes # (1.0-4.8) k/uL Monocytes # (0-1.0) k/uL Eosinophils # (0-0.7) k/uL Basophils # (0-0.2) k/uL PT 9.7 (9.0-12.0) sec INR 0.9 (<1.2) APTT 23.5 (22.0-30.0) sec Sodium (137-145) mmol/L Potassium (3.5-5.1) mmol/L Chloride (98-107) mmol/L Carbon Dioxide (22-30) mmol/L Anion Gap mmol/L BUN (7-17) mg/dL Creatinine (0.52-1.04) mg/dL Est GFR (CKD-EPI)AfAm (>60 ml/min/1.73 sqM) Est GFR (CKD-EPI)NonAf (>60 ml/min/1.73 sqM) Glucose (74-99) mg/dL POC Glucose (mg/dL) (75-99) mg/dL POC Glu Studio [employer]er ID Calcium (8.4-10.2) mg/dL Total Bilirubin (0.2-1.3) mg/dL AST (14-36) U/L ALT (4-34) U/L Alkaline Phosphatase (38-126) U/L Total Creatine Kinase 125 (30-135) U/L CK-MB (CK-2) 1.5 (0.0-2.4) ng/mL CK-MB (CK-2) Rel Index 1.2 Troponin I <0.012 (0.000-0.034) ng/mL Total Protein (6.3-8.2) g/dL Albumin (3.5-5.0) g/dL - Medical Decision Making Patient's 53-year-old woman coming by ambulance for complaint of left sided weakness. Patient did go directly for CT scans which are negative for acute stroke. The patient then back to room and physical exam not consistent with acute stroke. I was going to admit the patient here to have further workup, but primary physician wanted neurology consult and we have no neural coverage. The patient informed of this and requests to go to [facility]. Please note that nursing staff have observed the patient to be moving left side when she felt she was unobserved. - EKG Data -: EKG Interpreted by Me EKG shows normal: sinus rhythm, intervals (VT interval is 222 ms, prolonged consistent with first-degree AV block. QRS duration 164 ms, prolonged. 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, swelling of left lower leg, insomnia, hx hiatal hernia, hx colon cancer, diarrhea, hx psoriasis, Leaky heart valve, episodes of "passing out" History of Any Multi-Drug Resistant Organisms: MRSA Date of last positivie culture/infection: 12/03/2010 MDRO Source:: arm and abdomen Past Surgical History: Appendectomy, Bowel Resection, Cholecystectomy, Ear Yokasta adwson, Hysterectomy, Orthopedic Surgery Additional Past Surgical History / Comment(s): frantz knee arthroscopy, hiatal hernia surgery, rt ear surgery to remove middle ear Past Anesthesia/Blood Transfusion Reactions: Postoperative Nausea & Vomiting (PONV) Past Psychological History: Anxiety, Panic Disorder Smoking Status: Never smoker Past Alcohol Use History: None Reported Past Drug Use History: None Reported - Past Family History Mother Family Medical History: No Reported History Additional Family Medical History / Comment(s): . Course Vital Signs 04/10/19 04/10/19 04/10/19 02:09 02:24 02:39 Temperature 97.9 F Pulse Rate 64 75 69 Respiratory 18 16 17 Rate Blood Pressure 164/86 154/87 156/91 O2 Sat by Pulse 100 100 99 Oximetry 04/10/19 04/10/19 04/10/19 02:54 03:09 03:24 Temperature Pulse Rate 66 63 63 Respiratory 18 18 17 Rate Blood Pressure 153/86 158/83 136/72 O2 Sat by Pulse 100 100 100 Oximetry 04/10/19 03:39 Temperature Pulse Rate 62 Respiratory 17 Rate Blood Pressure 136/72 O2 Sat by Pulse 99 Oximetry - Reevaluation(s) Reevaluation #1: 04/10/19 02:49 Patient is sent for computed tomography scan for TPA. Patient then has pretreatment and sent for CT angiogram. Reevaluation #2: 04/10/19 02:59 Patient had gone directly from EMS to computed tomography scan and then had the CT angio following pretreatment. I performed physical exam which is not suggestive of stroke. The patient's tongue projects to the right, inconsistent with left-sided hemiplegia. On left leg raise, the patient does not exert right heel pressure. On right leg raise, patient does exert left heel pressure. On arm drop, patient protects face. Reevaluation #3: 04/10/19 04:[address] Perez from the stroke team who is aware of the physical exam results and CTs. Case discussed with Dr. Ragland who will accept transfer through the urgency department. Disposition Clinical Impression: Left-sided weakness, Headache Disposition: OTHER INSTITUTION NOT DEFINED Condition: Good Is patient prescribed a controlled substance at d/c from ED?: No Referrals: Scott Medrano MD [Primary Care Provider] - 1-2 days
--- NOTE | 2019-04-10 02:33 | XR ---
EXAMINATION TYPE: XR chest 1V DATE OF EXAM: 04/10/2019 COMPARISON: 01/19/2019 HISTORY: Altered mental status TECHNIQUE: FINDINGS: Heart is normal. Lungs are clear of infiltrate. There is no heart failure. There is no pleu ral effusion. Bony thorax is intact IMPRESSION: No active cardiopulmonary disease. No change.
--- NOTE | 2019-04-10 02:36 | CT ---
EXAMINATION TYPE: CT brain wo con for TPA DATE OF EXAM: 04/10/2019 COMPARISON: 03/31/2019 HISTORY: stroke Weakness CT DLP: 1072.4 mGycm Automated exposure control for dose reduction was used. Exam performed without contrast. Ventricles have normal size. There is no mass effect nor midline shift. There is no sign of intracran ial hemorrhage. The calvarium is intact. There is right side temporal bone deformity. There is opacif ication of the right middle ear and some of the internal auditory canal on the right side. IMPRESSION: No acute intracranial abnormality. Right temporal bone deformity. No change compared to old exam.
[2019-04-10 02:39] LABS: Basophils % (A) 1 %; Eosinophils # (A) 0.2 k/uL (0-0.7); Eosinophils % (A) 2 %; HCT 33.4 % (34.0-46.0); HGB 10.6 gm/dL (11.4-16.0); Lymphocytes # (A) 2.9 k/uL (1.0-4.8); Lymphocytes % (A) 36 %; MCH 26.9 pg (25.0-35.0); MCHC 31.7 g/dL (31.0-37.0); MCV 84.9 fL (80.0-100.0); Mean Platelet Volume 9.1; Monocytes # (A) 0.3 k/uL (0-1.0); Monocytes % (A) 3 %; Neutrophils # (A) 4.7 k/uL (1.3-7.7); Neutrophils % (A) 58 %; Platelet Count 244 k/uL (150-450); RBC 3.94 m/uL (3.80-5.40); WBC 8.2 k/uL (3.8-10.6)
[2019-04-10 02:48] LABS: Calcium 9.3 mg/dL (8.4-10.2); INR 0.9 (<1.2); Partial Thromboplastin Time 23.5 sec (22.0-30.0); Potassium 3.9 mmol/L (3.5-5.1); Prothrombin Time 9.7 sec (9.0-12.0); Total Bilirubin 0.2 mg/dL (0.2-1.3); Total Protein 6.9 g/dL (6.3-8.2)
[2019-04-10 02:51] LABS: Creatine Kinase 125 U/L (30-135)
[2019-04-10 03:04] LABS: Creatine Kinase MB 1.5 ng/mL (0.0-2.4); Troponin I <0.012 ng/mL (0.000-0.034)
--- NOTE | 2019-04-10 03:23 | CT ---
EXAMINATION TYPE: CT angio head neck DATE OF EXAM: 04/10/2019 COMPARISON: HISTORY: Patient presents with neuro deficits CT DLP: 410.2 mGycm Automated exposure control for dose reduction was used. CONTRAST: Performed with IV Contrast, patient injected with 65mL mL of Isovue 370. There are 3-D post processed images. There is normal branching pattern of the great vessels on the aortic arch. Ascending aorta measures 3 .3 cm. There is arterial flow in both subclavian arteries. There is arterial flow in the common inter nal and external carotid arteries bilaterally. There is wide patency of the carotid artery bifurcatio ns. There is no significant plaque formation. There is arterial flow in both vertebral arteries which are fairly symmetric. There is arterial flow in the vertebrobasilar artery system. There is no evidence of carotid or vertebral artery aneurysm or dissection. There is arterial flow in the anterior middle and posterior cerebral arteries. There is normal contra st opacification of the venous sinuses. I see no evidence of intracranial arterial stenosis. There is no mass effect. There is no sign of aneurysm or neovascularity. IMPRESSION: Normal CT angiogram of the neck. Normal CT angiogram of the brain.
[2019-04-10] MEDS ORDERED: ACETAMINOPHEN TAB 325 MG TAB PO STA (04:44)
[2019-04-10 04:50] VITALS: BP 165/78; PULSE 66; RESP 18
== END 2019-04-10 05:34 | disposition other institution (70) ==
LOC: EC 02:07
DX: R53.1 Weakness (principal); R51 Headache; M79.7 Fibromyalgia; G40.909 Epilepsy, unspecified, not intractable, without status epilepticus; Z85.038 Personal history of other malignant neoplasm of large intestine; Z86.14 Personal history of Methicillin resistant Staphylococcus aureus infection; Z86.69 Personal history of other diseases of the nervous system and sense organs; Z79.899 Other long term (current) drug therapy; Z88.1 Allergy status to other antibiotic agents; Z91.048 Other nonmedicinal substance allergy status; Z88.6 Allergy status to analgesic agent; Z88.0 Allergy status to penicillin; Z88.5 Allergy status to narcotic agent; Z88.8 Allergy status to other drugs, medicaments and biological substances
CPT/HCPCS: 36415; 93005; 80053; 82550; 82553; 84484; 85025; 85610; 85730; 71045; 70496; 70450; 70498; 99285; 96374; 96375 ×2; J1200; J2930; Q9967

== ENCOUNTER 2019-04-19 23:07 | Observation (INO) | payer OTHER ==
[2019-04-19] MEDS ORDERED: MORPHINE SULFATE 4 MG/ML SYRINGE IVP STA (23:27)
[2019-04-19] MEDS ORDERED: SODIUM CHLORIDE 0.9% 1,000 ML IV STA (23:29)
--- NOTE | 2019-04-19 23:44 | ED ---
General Adult HPI - General Chief complaint: Fall Stated complaint: Hip injury, fall Time Seen by Provider: 04/19/19 23:10 Source: patient, family, EMS Mode of arrival: EMS Limitations: no limitations - History of Present Illness Initial comments: Dictation was produced using [employer] dictation software. please excuse any grammatical, word or spelling errors. Chief Complaint: 53-year-old female with left hip pain and left elbow pain after fall History of Present Illness: 53-year-old female presents with left hip and left elbow pain after fall. Patient was on the toilet having a bowel movement when she finished having a bowel movement. She didn't proceeded to spray the bathroom with air freshener. She states that there freshener gone to the floor causing the floor to be slip repeat she then attempted to get up. She slipped f alling backwards on her left side. After the fall she had left hip pain and left elbow pain. Patient states she tried to ambulate and was unable to bear weight on her left upper extremity. Patient has a history of seizures P she states she did not have a seizure. Denied losing consciousness. She reports not hitting her head. Denies any neck pain or headache. Patient was recently seen here in emergency department for left-sided weakness concerning for CVA. She was transferred to [facility] where she was unhappy because she was not seen for several hours per she is then signed herself out AGAINST MEDICAL ADVICE and went to [facility] where she was evaluated and then discharged from the ER. The ROS documented in this emergency department record has been reviewed and confirmed by me. Those systems with pertinent positive or negative responses have been documented in the HPI. All other systems are other negative and/or noncontributory. PHYSICAL EXAM: General Impression: Alert and oriented x3, acute distress secondary to pain HEENT: Normocephalic atraumatic, extra-ocular movements intact, pupils equal and reactive to light bilaterally, mucous membranes moist. Cardiovascular: Heart regular rate and rhythm, S1&S2 audible, no murmurs, rubs or gallops Chest: Lungs clear to auscultation bilaterally, no rhonchi, no wheeze, no rales Abdomen: Bowel sounds present, abdomen soft, non-tender, non-distended, no organomegaly Musculoskeletal: Pulses present and equal in all extremities, no peripheral edema Left upper extremity: Able to touch ipsilateral elbow with left hand, no gross deformity at the left elbow, there is an abrasion to the left posterior elbow, neurovascular intact Left lower extremity: Tenderness and fullness of the left hip no obvious leg length discrepancy, neurovascular intact Motor: no focal deficits noted Neurological: CN II-XII grossly intact, no focal motor or sensory deficits noted Skin: Intact with no visualized rashes Psych: Normal affect and mood ED course: 53-year-old female presents with hip pain and elbow pain after fall signs upon arrival are within acceptable limits. Laboratory evaluation obtained. Hemoglobin 10.7, rest of CBC is unremarkable. Coag panel unremarkable. Metabolic panel is negative. Lactic acidosis. Elbow x-ray, shoulder x-ray, pelvis x-ray chest x-ray is unremarkable. Patient was reevaluated bedside states she was in significant tenderness. Patient exhibited drug-seeking behavior. Given patient's exquisite tenderness head CT and C-spine head CT is ordered for concerns of possible injury. Chart shows that patient has long history of pseudoseizures and malingering with drug-seeking behavior ba sed on chart review and discussion with Dr. Mcpherson who is familiar with patient.. Patient To Dr. Piper Who Will Follow up with CT Head Spine Computed Tomography radiology read.. These images were reviewed with no obvious findings pending radiology read. Discussed patient case with Dr. Mcpherson was went except patient's care if the need arises for her to be admitted. - Related Data Home Medications Medication Instructions Recorded Confirmed Brivaracetam [Briviact] 50 mg PO BID 08/01/16 04/20/19 diphenhydrAMINE HCL [Benadryl] 25 mg PO HS PRN 09/26/18 04/20/19 lamoTRIgine [LaMICtal] 200 mg PO BID 09/26/18 04/20/19 Acetaminophen Tab [Tylenol] 1,000 mg PO Q6H PRN 10/05/18 04/20/19 Topiramate 50 mg PO BID 12/19/18 04/20/19 HYDROcodone/APAP 5-325MG [Gilman 1 tab PO BID PRN 04/20/19 04/20/19 5-325] clonazePAM [KlonoPIN] 1 mg PO BID 04/20/19 04/20/19 Previous Rx's Medication Instructions Recorded Diclofenac Sodium Gel [Voltaren 4 gm TOPICAL QID #1 tub 03/10/19 Gel] Ibuprofen 600 mg PO TID PRN #1 tablet 04/20/19 Allergies Allergy/AdvReac Type Severity Reaction Status Date / Time erythromycin base Allergy Rash/Hives Verified 04/20/19 08:29 iodine Allergy Anaphylaxis Verified 04/20/19 08:29 ketorolac tromethamine Allergy Rash/Hives/ Verified 04/20/19 08:29 [From Toradol] hallucinati ons Penicillins Allergy Anaphylaxis Verified 04/20/19 08:29 acetaminophen [From Fioricet] AdvReac Unknown Verified 04/20/19 08:29 azithromycin AdvReac red face Verified 04/20/19 08:29 butalbital [From Fioricet] AdvReac Unknown Verified 04/20/19 08:29 caffeine [From Fioricet] AdvReac Unknown Verified 04/20/19 08:29 codeine AdvReac Hallucinati Verified 04/20/19 08:29 ons lorazepam [From Ativan] AdvReac Hallucinati Verified 04/20/19 08:29 ons Review of Systems ROS Statement: Those systems with pertinent positive or pertinent negative responses have been documented in the HPI. ROS Other: All systems not noted in ROS Statement are negative. 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, swelling of left lower leg, insomnia, hx hiatal hernia, hx colon cancer, diarrhea, hx psoriasis, Leaky heart valve, episodes of "passing out" History of Any Multi-Drug Resistant Organisms: MRSA Date of last positivie culture/infection: 12/03/2010 MDRO Source:: arm and abdomen Past Surgical History: Appendectomy, Bowel Resection, Cholecystectomy, Ear Surgery, Hysterectomy, Orthopedic Surgery Additional Past Surgical History / Comment(s): frantz knee arthroscopy, hiatal hernia surgery, rt ear surgery to remove middle ear Past Anesthesia/Blood Transfusion Reactions: Postoperative Nausea & Vomiting (PONV) Past Psychological History: Anxiety, Panic Disorder Smoking Status: Never smoker Past Alcohol Use History: None Reported Past Drug Use History: None Reported - Past Family History Mother Family Medical History: No Reported History Additional Family Medical History / Comment(s): . General Exam Limitations: no limitations Course Vital Signs 04/19/19 04/20/19 23:08 02:51 Temperature 97.9 F Pulse Rate 92 80 Respiratory 18 18 Rate Blood Pressure 143/52 121/61 O2 Sat by Pulse 99 100 Oximetry Medical Decision Making - Lab Data Result diagrams: 04/19/19 23:35 04/19/19 23:35 Lab Results 04/19/19 04/19/19 04/19/19 Range/Units 06:00 23:35 23:35 WBC 8.5 (3.8-10.6) k/uL RBC 3.90 (3.80-5.40) m/uL Hgb 10.7 L (11.4-16.0) gm/dL Hct 32.8 L (34.0-46.0) % MCV 84.2 (80.0-100.0) fL MCH 27.5 (25.0-35.0) pg MCHC 32.6 (31.0-37.0) g/dL RDW 14.6 (11.5-15.5) % Plt Count 283 (150-450) k/uL Neutrophils % 57 % Lymphocytes % 35 % Monocytes % 4 % Eosinophils % 2 % Basophils % 1 % Neutrophils # 4.9 (1.3-7.7) k/uL Lymphocytes # 3.0 (1.0-4.8) k/uL Monocytes # 0.3 (0-1.0) k/uL Eosinophils # 0.2 (0-0.7) k/uL Basophils # 0.0 (0-0.2) k/uL Hypochromasia Slight PT (9.0-12.0) sec INR (<1.2) APTT (22.0-30.0) sec Sodium 142 (137-145) mmol/L Potassium 4.1 (3.5-5.1) mmol/L Chloride 111 H (98-107) mmol/L Carbon Dioxide 23 (22-30) mmol/L Anion Gap 8 mmol/L BUN 26 H (7-17) mg/dL Creatinine 0.73 (0.52-1.04) mg/dL Est GFR (CKD-EPI)AfAm >90 (>60 ml/min/1.73 sqM) Est GFR (CKD-EPI)NonAf >90 (>60 ml/min/1.73 sqM) Glucose 106 H (74-99) mg/dL Plasma Lactic Acid Williams (0.7-2.0) mmol/L Calcium 9.3 (8.4-10.2) mg/dL Magnesium 2.0 (1.6-2.3) mg/dL Total Bilirubin 0.3 (0.2-1.3) mg/dL AST 57 H (14-36) U/L ALT 38 H (4-34) U/L Alkaline Phosphatase 230 H (38-126) U/L Total Protein 6.7 (6.3-8.2) g/dL Albumin 3.9 (3.5-5.0) g/dL Urine Color Yellow Urine Appearance Cloudy H (Clear) Urine pH 6.0 (5.0-8.0) Ur Specific [employer] [place] 1.026 (1.001-1.035) Urine Protein Trace H (Negative) Urine Glucose (UA) Negative (Negative) Urine Ketones Negative (Negative) Urine Blood Negative (Negative) Urine Nitrite Negative (Negative) Urine Bilirubin Negative (Negative) Urine Urobilinogen <2.0 (<2.0) mg/dL Ur Leukocyte Esterase Large H (Negative) Urine RBC 7 H (0-5) /hpf Urine WBC 86 H (0-5) /hpf Ur Squamous Epith Cells 1 (0-4) /hpf Hyaline Casts 1 (0-2) /lpf Urine Mucus Occasional H (None) /hpf Lamotrigine (2.0-15.0) ug/mL 04/19/19 04/19/19 04/19/19 Range/Units 23:35 23:35 23:35 WBC (3.8-10.6) k/uL RBC (3.80-5.40) m/uL Hgb (11.4-16.0) gm/dL Hct (34.0-46.0) % MCV (80.0-100.0) fL MCH (25.0-35.0) pg MCHC (31.0-37.0) g/dL RDW (11.5-15.5) % Plt Count (150-450) k/uL Neutrophils % % Lymphocytes % % Monocytes % % Eosinophils % % Basophils % % Neutrophils # (1.3-7.7) k/uL Lymphocytes # (1.0-4.8) k/uL Monocytes # (0-1.0) k/uL Eosinophils # (0-0.7) k/uL Basophils # (0-0.2) k/uL Hypochromasia PT 9.4 (9.0-12.0) sec INR 0.9 (<1.2) APTT 21.2 L (22.0-30.0) sec Sodium (137-145) mmol/L Potassium (3.5-5.1) mmol/L Chloride (98-107) mmol/L Carbon Dioxide (22-30) mmol/L Anion Gap mmol/L BUN (7-17) mg/dL Creatinine (0.52-1.04) mg/dL Est GFR (CKD-EPI)AfAm (>60 ml/min/1.73 sqM) Est GFR (CKD-EPI)NonAf (>60 ml/min/1.73 sqM) Glucose (74-99) mg/dL Plasma Lactic Acid Williams 1.1 (0.7-2.0) mmol/L Calcium (8.4-10.2) mg/dL Magnesium (1.6-2.3) mg/dL Total Bilirubin (0.2-1.3) mg/dL AST (14-36) U/L ALT (4-34) U/L Alkaline Phosphatase (38-126) U/L Total Protein (6.3-8.2) g/dL Albumin (3.5-5.0) g/dL Urine Color Urine Appearance (Clear) Urine pH (5.0-8.0) Ur Specific [employer] [place] (1.001-1.035) Urine Protein (Negative) Urine Glucose (UA) (Negative) Urine Ketones (Negative) Urine Blood (Negative) Urine Nitrite (Negative) Urine Bilirubin (Negative) Urine Urobilinogen (<2.0) mg/dL Ur Leukocyte Esterase (Negative) Urine RBC (0-5) /hpf Urine WBC (0-5) /hpf Ur Squamous Epith Cells (0-4) /hpf Hyaline Casts (0-2) /lpf Urine Mucus (None) /hpf Lamotrigine 7.3 (2.0-15.0) ug/mL Disposition Clinical Impression: Fall Disposition: ADMITTED IP TO THIS [facility] Condition: Fair Decision Time: 15:43
[2019-04-19 23:46] LABS: Basophils % (A) 1 %; Eosinophils # (A) 0.2 k/uL (0-0.7); Eosinophils % (A) 2 %; HCT 32.8 % (34.0-46.0); HGB 10.7 gm/dL (11.4-16.0); Hypochromasia Slight; Lymphocytes % (A) 35 %; MCH 27.5 pg (25.0-35.0); MCHC 32.6 g/dL (31.0-37.0); MCV 84.2 fL (80.0-100.0); Mean Platelet Volume 8.4; Monocytes # (A) 0.3 k/uL (0-1.0); Monocytes % (A) 4 %; Neutrophils # (A) 4.9 k/uL (1.3-7.7); Neutrophils % (A) 57 %; Platelet Count 283 k/uL (150-450); RDW 14.6 % (11.5-15.5); WBC 8.5 k/uL (3.8-10.6)
[2019-04-19 23:59] LABS: ALT 38 U/L (4-34); AST 57 U/L (14-36); African American GFR (CKD) >90 (>60 ml/min/1.73 sqM); Albumin 3.9 g/dL (3.5-5.0); Alkaline Phosphatase 230 U/L (38-126); Anion Gap 8 mmol/L; Blood Urea Nitrogen 26 mg/dL (7-17); Calcium 9.3 mg/dL (8.4-10.2); Carbon Dioxide 23 mmol/L (22-30); Chloride 111 mmol/L (98-107); Glucose 106 mg/dL (74-99); Non-African American GFR(CKD) >90 (>60 ml/min/1.73 sqM); Potassium 4.1 mmol/L (3.5-5.1); Sodium 142 mmol/L (137-145); Total Bilirubin 0.3 mg/dL (0.2-1.3); Total Protein 6.7 g/dL (6.3-8.2)
[2019-04-20 00:04] LABS: INR 0.9 (<1.2); Prothrombin Time 9.4 sec (9.0-12.0)
[2019-04-20 00:15] LABS: Partial Thromboplastin Time 21.2 sec (22.0-30.0)
--- NOTE | 2019-04-20 00:27 | XR ---
EXAMINATION TYPE: XR chest 1V DATE OF EXAM: 04/20/2019 COMPARISON: 04/10/2019 HISTORY: Altered mental status TECHNIQUE: FINDINGS: Heart and mediastinum are normal. Lungs are clear. Diaphragm is normal. Bony thorax appears normal. IMPRESSION: Normal chest. No change.
--- NOTE | 2019-04-20 00:29 | XR ---
EXAMINATION TYPE: XR Hip Bilateral and AP pelvis DATE OF EXAM: 04/20/2019 COMPARISON: 10/12/2014 HISTORY: Fall. Pain. TECHNIQUE: 5 views FINDINGS: Pelvic ring is intact. Proximal femurs and hip joints appear normal. Hip joint spaces are f airly well-maintained. There is no sign of hip dysplasia. Sacroiliac joints are intact. IMPRESSION: Normal pelvis and bilateral hip exam. No change.
--- NOTE | 2019-04-20 00:31 | XR ---
EXAMINATION TYPE: XR shoulder complete LT DATE OF EXAM: 04/20/2019 COMPARISON: NONE HISTORY: Shoulder pain TECHNIQUE: 3 views FINDINGS: I see no fracture nor dislocation. Joint spaces are fairly normal. There is minor spurring of the inferior glenoid labrum. There are no pathologic calcifications at the greater tuberosity. IMPRESSION: Mild spurring. Otherwise negative left shoulder exam. No fracture.
[2019-04-20] MEDS ORDERED: HYDROmorphone 1 MG/ML 1 ML SYRINGE IVP STA (00:33)
--- NOTE | 2019-04-20 00:33 | XR ---
EXAMINATION TYPE: XR elbow complete LT DATE OF EXAM: 04/20/2019 COMPARISON: NONE HISTORY: Elbow pain TECHNIQUE: 3 views FINDINGS: I see no fracture nor dislocation. Joint spaces are normal. There is no sign of elbow joint effusion. IMPRESSION: Negative left elbow exam.
--- NOTE | 2019-04-20 01:11 | CT ---
EXAMINATION TYPE: CT hip LT wo con DATE OF EXAM: 04/20/2019 COMPARISON: HISTORY: fall CT DLP: 652.2 mGycm Automated exposure control for dose reduction was used. Multiple axial sections were obtained from the top of the iliac crest to the mid shaft of the femur w ithout contrast. The left hemipelvis appears intact. Acetabulum is intact. Proximal left femur and hip joint are intac t. There is mild acetabular spurring. There is no free fluid in the pelvis. There is no evidence of p elvic hematoma. There is no inguinal hernia. The left sacroiliac joint appears intact. IMPRESSION: There is mild osteoarthritic change at the hip joint. No fracture seen.
--- NOTE | 2019-04-20 01:59 | CT ---
EXAMINATION TYPE: CT brain cspine wo con DATE OF EXAM: 04/20/2019 COMPARISON: CT brain 04/10/2019 CT scan cervical spine 04/28/2015 HISTORY: fall CT DLP: 1343.7 mGycm Automated exposure control for dose reduction was used. Multiple axial sections were obtained of the brain without contrast. Multiple axial sections were obt ained from the skull base to T1 vertebra without contrast. FINDINGS: Ventricles and sulci appear normal. There is no mass effect nor midline shift. There is no sign of in tracranial hemorrhage. There is no evidence of cerebral edema. Calvarium is intact. Cervical vertebra have fairly normal alignment. Disc spaces are normal. The posterior elements are in tact. Skull base is intact. IMPRESSION: Negative CT scan of the brain. No change. Negative CT scan cervical spine. No change.
[2019-04-20] MEDS ORDERED: ACETAMINOPHEN TAB 325 MG TAB PO PRN (02:27)
[2019-04-20] MEDS ORDERED: HYDROcodone/APAP 5-325MG 1 EACH TAB PO PRN (02:27)
[2019-04-20] MEDS ORDERED: NALOXONE 0.4 MG/ML 1 ML VIAL IV PRN (02:27)
[2019-04-20] MEDS ORDERED: IBUPROFEN 800 MG TAB PO PRN (02:29)
[2019-04-20] MEDS ORDERED: ALPRAZolam 0.25 MG TAB PO PRN (02:29)
[2019-04-20 03:22] VITALS: RESP 16
[2019-04-20 07:26] LABS: Appearance,Urine Cloudy (Clear); Bilirubin,Urine Negative (Negative); Blood,Urine Negative (Negative); Color,Urine Yellow; Glucose,Urine (UA) Negative (Negative); Hyaline Casts,Urine 1 /lpf (0-2); Ketones,Urine Negative (Negative); Leukocyte Esterase,Urine Large (Negative); Mucus,Urine Occasional /hpf; Nitrite,Urine Negative (Negative); Protein,Urine Trace (Negative); RBC,Urine 7 /hpf (0-5); Specific Gravity,Urine 1.026 (1.001-1.035); Squamous Epithelial Cell,Urine 1 /hpf (0-4); Urobilinogen,Urine <2.0 mg/dL (<2.0); WBC,Urine 86 /hpf (0-5)
[2019-04-20 07:41] VITALS: PULSE 72; TEMP 98.1
[2019-04-20 08:53] VITALS: BP 112/60
[2019-04-20] MEDS ORDERED: FAMOTIDINE 20 MG TAB PO SCH (09:00)
[2019-04-20] MEDS ORDERED: clonazePAM 0.5 MG TAB PO SCH (09:00)
[2019-04-20] MEDS ORDERED: BRIVARACETAM 50 MG PO SCH (09:00)
[2019-04-20] MEDS ORDERED: lamoTRIgine 100 MG TAB PO SCH (09:00)
[2019-04-20] MEDS ORDERED: TOPIRAMATE 25 MG TAB PO SCH (09:00)
[2019-04-20] MEDS ORDERED: DICLOFENAC SODIUM GEL 100 GM TUBE TOPICAL SCH (09:00)
[2019-04-20] MEDS ORDERED: LIDOCAINE 5% PATCH TOPICAL SCH (09:00)
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
[2019-04-20] MEDS ORDERED: diphenhydrAMINE 25 MG CAP PO SCH (21:00)
[2019-04-20] MEDS ORDERED: MELATONIN PO SCH (21:00)
== END 2019-04-20 11:30 | disposition home or self-care (01) ==
LOC: EC 23:07 → 4SSUR 04-20 02:27
PROVIDERS: ADMIT Family Medicine; ATTEND Family Medicine
DX: S79.912A Unspecified injury of left hip, initial encounter (principal); M16.12 Unilateral primary osteoarthritis, left hip; M25.522 Pain in left elbow; M25.512 Pain in left shoulder; M79.7 Fibromyalgia; G40.909 Epilepsy, unspecified, not intractable, without status epilepticus; F41.0 Panic disorder [episodic paroxysmal anxiety]; G47.00 Insomnia, unspecified; K44.9 Diaphragmatic hernia without obstruction or gangrene; Z85.038 Personal history of other malignant neoplasm of large intestine; L40.9 Psoriasis, unspecified; Z90.49 Acquired absence of other specified parts of digestive tract; Z90.710 Acquired absence of both cervix and uterus; Z86.14 Personal history of Methicillin resistant Staphylococcus aureus infection; E87.2 Acidosis; W01.0XXA Fall on same level from slipping, tripping and stumbling without subsequent striking against object, initial encounter; Y92.002 Bathroom of unspecified non-institutional (private) residence as the place of occurrence of the external cause
CPT/HCPCS: 96374; 96375; 99285; 36415; 93005; 97162; 80053; 80175; 83605; 83735; 85025; 85610; 85730; 81001; 73030; 73521; 73080; 71045; 72125; 70450; 73700; G0378; J2270; J1170

== ENCOUNTER 2019-05-23 23:50 | Emergency (ER) | payer OTHER ==
[2019-05-24 00:42] VITALS: TEMP 97.8
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
[2019-05-24 01:37] VITALS: BP 154/71; PULSE 79; RESP 15
== END 2019-05-24 01:33 | disposition home or self-care (01) ==
LOC: EC 23:50
DX: F41.0 Panic disorder [episodic paroxysmal anxiety] (principal); G40.909 Epilepsy, unspecified, not intractable, without status epilepticus; Z88.0 Allergy status to penicillin; Z88.1 Allergy status to other antibiotic agents; Z88.6 Allergy status to analgesic agent; Z88.8 Allergy status to other drugs, medicaments and biological substances; Z91.048 Other nonmedicinal substance allergy status; Z79.899 Other long term (current) drug therapy; Z86.14 Personal history of Methicillin resistant Staphylococcus aureus infection; Z86.69 Personal history of other diseases of the nervous system and sense organs; Z53.20 Procedure and treatment not carried out because of patient's decision for unspecified reasons
CPT/HCPCS: 99283

== ENCOUNTER 2019-06-01 21:47 | Emergency (ER) | payer OTHER ==
[2019-06-01 21:53] VITALS: BP 165/92; PULSE 100; RESP 20; TEMP 98.2
[2019-06-01] MEDS ORDERED: LIDOCAINE 1% INJ 10MG/ML (20 ML MDV) IM ONE (22:09)
[2019-06-01] MEDS ORDERED: PHENAZOPYRIDINE 200 MG TAB PO STA (22:09)
[2019-06-01] MEDS ORDERED: MORPHINE SULFATE 4 MG/ML SYRINGE IM STA (22:09)
--- NOTE | 2019-06-01 22:25 | ED ---
General Adult HPI - General Chief complaint: Urogenital Stated complaint: Back/Abd Pain Time Seen by Provider: 06/01/19 21:59 Source: patient, family Mode of arrival: ambulatory Limitations: no limitations - History of Present Illness Initial comments: 53-year-old female patient presents to the emergency department today for evaluation of back pain and suprapubic discomfort. Patient states that she was diagnosed with a kidney and bladder infection at her doctor's office earlier today. States she was started on Cipro. Patient states that her pain in her back has increased and she is also experiencing frequency of urination with only small amounts of urine output. Patient states she is experiencing an intense burning in her suprapubic region. Patient denies any fevers. Denies nausea or vomiting. States that she does not usually get urinary tract infections. Denies history of kidney stone. Patient denies any recent rash, shortness breath , chest pain, diarrhea, constipation, back pain, numbness, tingling, dizziness, weakness, headache, visual changes, or any other complaints. - Related Data Home Medications Medication Instructions Recorded Confirmed Brivaracetam [Briviact] 50 mg PO BID 08/01/16 04/20/19 diphenhydrAMINE HCL [Benadryl] 25 mg PO HS PRN 09/26/18 04/20/19 lamoTRIgine [LaMICtal] 200 mg PO BID 09/26/18 04/20/19 Acetaminophen Tab [Tylenol] 1,000 mg PO Q6H PRN 10/05/18 04/20/19 Topiramate 50 mg PO BID 12/19/18 04/20/19 HYDROcodone/APAP 5-325MG [[place] 1 tab PO BID PRN 04/20/19 04/20/19 5-325] clonazePAM [KlonoPIN] 1 mg PO BID 04/20/19 04/20/19 Previous Rx's Medication Instructions Recorded Diclofenac Sodium Gel [Voltaren 4 gm TOPICAL QID #1 tub 03/10/19 Gel] Ibuprofen 600 mg PO TID PRN #1 tablet 04/20/19 Phenazopyridine [Pyridium] 200 mg PO TID #18 tablet 06/01/19 Allergies Allergy/AdvReac Type Severity Reaction Status Date / Time erythromycin base Allergy Rash/Hives Verified 06/01/19 21:53 iodine Allergy Anaphylaxis Verified 06/01/19 21:53 ketorolac tromethamine Allergy Rash/Hives/ Verified 06/01/19 21:53 [From Toradol] hallucinati ons Penicillins Allergy Anaphylaxis Verified 06/01/19 21:53 acetaminophen [From Fioricet] AdvReac Unknown Verified 06/01/19 21:53 azithromycin AdvReac red face Verified 06/01/19 21:53 butalbital [From Fioricet] AdvReac Unknown Verified 06/01/19 21:53 caffeine [From Fioricet] AdvReac Unknown Verified 06/01/19 21:53 codeine AdvReac Hallucinati Verified 06/01/19 21:53 ons lorazepam [From Ativan] AdvReac Hallucinati Verified 06/01/19 21:53 ons Review of Systems ROS Statement: Those systems with pertinent positive or pertinent negative responses have been documented in the HPI. ROS Other: All systems not noted in ROS Statement are negative. 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, swelling of left lower leg, insomnia, hx hiatal hernia, hx colon cancer, diarrhea, hx psoriasis, Leaky heart valve, episodes of "passing out" History of Any Multi-Drug Resistant Organisms: MRSA Date of last positivie culture/infection: 12/03/2010 MDRO Source:: arm and abdomen Past Surgical History: Appendectomy, Bowel Resection, Cholecystectomy, Ear Surgery, Hysterectomy, Orthopedic Surgery Additional Past Surgical History / Comment(s): frantz knee arthroscopy, hiatal hernia surgery, rt ear surgery to remove middle ear Past Anesthesia/Blood Transfusion Reactions: Postoperative Nausea & Vomiting (PONV) Past Psychological History: Anxiety, Panic Disorder Smoking Status: Never smoker Past Alcohol Use History: None Reported Past Drug Use History: None Reported - Past Family History Mother Family Medical History: No Reported History Additional Family Medical History / Comment(s): . General Exam Limitations: no limitations General appearance: alert, in no apparent distress, other (This is a well- developed, well-nourished adult female patient in mild distress related to pain. Vital signs upon presentation are temperature 98.2F, pulse 100, respirations 20, blood pressure 165/92, pulse ox 99% on room air.) Eye exam: Present: normal appearance, PERRL, EOMI. Absent: scleral icterus, conjunctival injection, periorbital swelling ENT exam: Present: normal exam, normal oropharynx, mucous membranes moist Respiratory exam: Present: normal lung sounds bilaterally. Absent: respiratory distress, wheezes, rales, rhonchi, stridor Cardiovascular Exam: Present: regular rate, normal rhythm, normal heart sounds. Absent: systolic murmur, diastolic murmur, rubs, gallop, clicks GI/Abdominal exam: Present: soft, tenderness (Generalized), normal bowel sounds. Absent: distended, guarding, rebound, rigid Back exam: Present: normal inspection, CVA tenderness (R), CVA tenderness (L) Neurological exam: Present: alert, oriented X3, CN II-XII intact Psychiatric exam: Present: normal affect, normal mood Skin exam: Present: warm, dry, intact, normal color. Absent: rash Course Vital Signs 06/01/19 21:48 Temperature 98.2 F Pulse Rate 100 Respiratory 20 Rate Blood Pressure 165/92 O2 Sat by Pulse 99 Oximetry Medical Decision Making - Medical Decision Making 53-year-old female patient presents to the emergency department today for evaluation of flank pain and dysuria. Patient states she was diagnosed with urinary tract infection earlier in the day today. Started on Cipro. Physical examination did reveal some mild suprapubic tenderness, bilateral flank tenderness. She is afebrile, vital signs show no major abnormalities. Denies vomiting or diarrhea. Patient is able to keep down medications. She'll be given a dose of pain medication here. Prescription for Pyridium. She is instructed to continue her medications and to increase fluids. She is instructed to follow-up the primary care physician for recheck in 1-2 days. She verbalizes understanding and agrees with this plan. Disposition Clinical Impression: Flank pain, Dysuria Disposition: HOME SELF-CARE Condition: Good Instructions (If sedation given, give patient instructions): Dysuria (ED), Flank Pain (ED) Additional Instructions: Increase fluids. Rest. Follow-up through primary care physician for recheck in 1-2 days. Return to the emergency department immediately for any new, worsening, or concerning symptoms. Prescriptions: Phenazopyridine [Pyridium] 200 mg PO TID #18 tablet Is patient prescribed a controlled substance at d/c from ED?: No Referrals: Scott Medrano MD [Primary Care Provider] - 1-2 days Time of Disposition: 22:45
[2019-06-01] MEDS ORDERED: ACET/COD 300 MG/30 MG STARTER PACK 6 TAB BTL PO STA (22:46)
== END 2019-06-01 22:56 | disposition home or self-care (01) ==
LOC: EC 21:47
DX: N39.0 Urinary tract infection, site not specified (principal); G40.909 Epilepsy, unspecified, not intractable, without status epilepticus; F41.0 Panic disorder [episodic paroxysmal anxiety]; Z88.0 Allergy status to penicillin; Z88.1 Allergy status to other antibiotic agents; Z88.5 Allergy status to narcotic agent; Z88.6 Allergy status to analgesic agent; Z88.8 Allergy status to other drugs, medicaments and biological substances; Z91.048 Other nonmedicinal substance allergy status; Z79.899 Other long term (current) drug therapy; Z86.14 Personal history of Methicillin resistant Staphylococcus aureus infection; Z85.038 Personal history of other malignant neoplasm of large intestine; Z86.69 Personal history of other diseases of the nervous system and sense organs; Z90.49 Acquired absence of other specified parts of digestive tract; Z53.8 Procedure and treatment not carried out for other reasons
CPT/HCPCS: 99284; 96372; J2270

== ENCOUNTER 2019-06-17 | Emergency (ER) | payer OTHER | END 2019-06-17 07:35 | disposition home or self-care (01) | CPT/HCPCS: 99283 ==

== ENCOUNTER → 2019-06-22 | Outpatient (CLI) | payer OTHER ==
--- NOTE | 2019-06-22 16:18 | CT ---
EXAMINATION TYPE: CT abdomen pelvis wo con DATE OF EXAM: 06/22/2019 HISTORY: abdominal pain, hx of colon ca CT DLP: 457.4 mGycm. Automated Exposure Control for Dose Reduction was Utilized. TECHNIQUE: CT scan of the abdomen and pelvis is performed with oral but without IV contrast. COMPARISON: CT July 02, 2015 FINDINGS: Within the limitations of a non-contrast study, the following observations are made. LUNG BASES: Stable 4 mm lateral right lower lobe nodule axial image 2. This is presumed benign given four-year stability. LIVER/GB: Cholecystectomy clips. Sonogram overall heterogeneity with slightly issued at 3.2 cm hetero geneous slightly hypoechoic density area anterior right hepatic lobe axial image 16. PANCREAS: No significant abnormality is seen. SPLEEN: No significant abnormality is seen. ADRENALS: No significant abnormality is seen. KIDNEYS: No renal stones or hydronephrosis. BOWEL: Oral contrast reaches level of rectum. Surgical sutures at the base of cecum from appendectomy . Terminal ileum within normal limits. Primary colonic mass not well visualized. Surgical changes jus t below the diaphragmatic hiatus are present. GENITAL ORGANS: Uterus is surgically absent. A few scattered pelvic phleboliths. LYMPH NODES: No greater than 1cm abdominal or pelvic lymph nodes are appreciated. OSSEOUS STRUCTURES: Moderate multilevel spurring in the spine. Facet arthropathy lower lumbar levels. OTHER: Mild to moderate generalized gluteal and thigh muscle atrophy bilaterally. IMPRESSION: Primary colonic mass or neoplasm not well seen. Cannot exclude metastatic disease to the liver on noncontrast CT. Further investigation with contrast-enhanced liver protocol CT or MRI is adv ised. Otherwise no convincing evidence of metastatic disease.
== END | disposition home or self-care (01) ==
LOC: RADCTMAIN 12:06
PROVIDERS: ATTEND Family Medicine
DX: R19.4 Change in bowel habit (principal); R10.84 Generalized abdominal pain; Z88.0 Allergy status to penicillin; Z88.1 Allergy status to other antibiotic agents; Z88.8 Allergy status to other drugs, medicaments and biological substances
CPT/HCPCS: 74176

== ENCOUNTER 2019-07-07 18:28 | Emergency (ER) | payer OTHER ==
[2019-07-07 18:44] VITALS: TEMP 97.7
[2019-07-07] MEDS ORDERED: SODIUM CHLORIDE 0.9% 1,000 ML IV ONE ×2 (18:58)
[2019-07-07] MEDS ORDERED: MORPHINE SULFATE 2 MG/ML SYRINGE IVP ONE (19:17)
--- NOTE | 2019-07-07 19:20 | ED ---
Female Urogenital HPI - General Chief complaint: Urogenital Stated complaint: pain/vaginal bleeding Time Seen by Provider: 07/07/19 18:45 Source: patient, RN notes reviewed, old records reviewed Mode of arrival: wheelchair Limitations: no limitations - History of Present Illness Initial comments: This patient's a 53-year-old female with a history of rectal cancer and history of ovarian cancer. She had a history of total hysterectomy and in the 90s as well as a colon resection last year by Dr. Modi. Patient reports that she presents today for abnormal vaginal bleeding when she wiped today. She also has been complaining of 3 days of left-sided abdominal pain and lower back pain. She reports that she has been started on an iron pill due to anemia, and as a hard time having bowel movements. Patient denies any fevers or chills. - Related Data Home Medications Medication Instructions Recorded Confirmed Brivaracetam [Briviact] 50 mg PO BID 08/01/16 04/20/19 diphenhydrAMINE HCL [Benadryl] 25 mg PO HS PRN 09/26/18 04/20/19 lamoTRIgine [LaMICtal] 200 mg PO BID 09/26/18 04/20/19 Acetaminophen Tab [Tylenol] 1,000 mg PO Q6H PRN 10/05/18 04/20/19 Topiramate 50 mg PO BID 12/19/18 04/20/19 HYDROcodone/APAP 5-325MG [[place] 1 tab PO BID PRN 04/20/19 04/20/19 5-325] clonazePAM [KlonoPIN] 1 mg PO BID 04/20/19 04/20/19 Previous Rx's Medication Instructions Recorded Diclofenac Sodium Gel [Voltaren 4 gm TOPICAL QID #1 tub 03/10/19 Gel] Ibuprofen 600 mg PO TID PRN #1 tablet 04/20/19 Phenazopyridine [Pyridium] 200 mg PO TID #18 tablet 06/01/19 Nitrofurantoin Monohyd/M-Cryst 100 mg PO Q12HR #14 cap 07/07/19 [Macrobid] Allergies Allergy/AdvReac Type Severity Reaction Status Date / Time erythromycin base Allergy Rash/Hives Verified 06/17/19 05:01 iodine Allergy Anaphylaxis Verified 06/17/19 05:01 ketorolac tromethamine Allergy Rash/Hives/ Verified 06/17/19 05:01 [From Toradol] hallucinati ons Penicillins Allergy Anaphylaxis Verified 06/17/19 05:01 azithromycin AdvReac red face Verified 06/17/19 05:01 butalbital [From Fioricet] AdvReac Unknown Verified 06/17/19 05:01 lorazepam [From Ativan] AdvReac Hallucinati Verified 06/17/19 05:01 ons Review of Systems ROS Statement: Those systems with pertinent positive or pertinent negative responses have been documented in the HPI. ROS Other: All systems not noted in ROS Statement are negative. 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, swelling of left lower leg, insomnia, hx hiatal hernia, hx colon cancer, diarrhea, hx psoriasis, Leaky heart valve, episodes of "passing out" History of Any Multi-Drug Resistant Organisms: MRSA Date of last positivie culture/infection: 12/03/2010 MDRO Source:: arm and abdomen Past Surgical History: Appendectomy, Bowel Resection, Cholecystectomy, Ear Surgery, Hysterectomy, Orthopedic Surgery Additional Past Surgical History / Comment(s): frantz knee arthroscopy, hiatal hernia surgery, rt ear surgery to remove middle ear Past Anesthesia/Blood Transfusion Reactions: Postoperative Nausea & Vomiting (PONV) Past Psychological History: Anxiety, Panic Disorder Smoking Status: Never smoker Past Alcohol Use History: None Reported Past Drug Use History: None Reported - Past Family History Mother Family Medical History: No Reported History Additional Family Medical History / Comment(s): . General Exam - General Exam Comments Initial Comments: 53-year-old female. No distress. Limitations: no limitations General appearance: alert, in no apparent distress Head exam: Present: atraumatic, normocephalic, normal inspection Eye exam: Present: normal appearance, PERRL, EOMI. Absent: scleral icterus, conjunctival injection, periorbital swelling ENT exam: Present: normal exam, mucous membranes moist Neck exam: Present: normal inspection Respiratory exam: Present: normal lung sounds bilaterally. Absent: respiratory distress, wheezes, rales, rhonchi, stridor Cardiovascular Exam: Present: regular rate, normal rhythm, normal heart sounds. Absent: systolic murmur, diastolic murmur, rubs, gallop, clicks GI/Abdominal exam: Present: soft, tenderness (LLQ tendernss), normal bowel sounds. Absent: distended, guarding, rebound, rigid External exam: Present: other (Has a linear2 cm laceration over the right labia. Concern of the systems were patient's bleeding is coming from. The bleeding is controlled. At this time.). Absent: normal external exam Speculum exam: Present: normal speculum exam (patient had pain with speculum insertion), vaginal discharge (minimal ) By manual exam: Present: normal by manual exam Extremities exam: Present: normal inspection, full ROM, normal capillary refill. Absent: tenderness, pedal edema, joint swelling, calf tenderness Back exam: Present: normal inspection Neurological exam: Present: alert, oriented X3, CN II-XII intact Psychiatric exam: Present: normal affect, normal mood Skin exam: Present: warm, dry, intact, normal color. Absent: rash Course Vital Signs 07/07/19 07/07/19 18:40 20:57 Temperature 97.7 F 97.7 F Pulse Rate 92 91 Respiratory 18 17 Rate Blood Pressure 152/79 146/79 O2 Sat by Pulse 100 100 Oximetry Medical Decision Making - Medical Decision Making Patient's 53-year-old female wanted to the emergency department. She presents today for complaints of lower abdominal pain, and concern for vaginal bleeding. On pelvic exam Patient was noted to have a laceration over the right labia was is likely related the patient's bleeding. Patient does also report some lower abdominal pain for the past 3 days. Patient also complains of some outpatient. Patient's labs are reviewed. Her hemoglobin has increased from previously 1911. White blood cell count was stable. Kidney functions normal. She does have elevated liver enzymes. She did have an outpatient CAT scan showing an abnormal mass in the liver concerning for metastatic disease. I did inform the Patient of the CT report and she is following up with her surgeon and her primary care doctor regards to this. Discussed that this is likely related to liver enzyme elevation. Urinalysis also shows sinus the urinary tract infection. We'll start the Patient on antibiotics. She reports that her last prescription for Cipro did not treat this well. I discussed the Patient to be started on Macrobid and urine culture will be pending. She received 1 dose of Rocephin and emergency department. Patient advised close follow-up with her primary care doctor. All questions answered. - Lab Data Result diagrams: 07/07/19 19:26 07/07/19 19:26 Lab Results 07/07/19 07/07/19 07/07/19 Range/Units 19:26 19:26 19:26 WBC 8.4 (3.8-10.6) k/uL RBC 4.25 (3.80-5.40) m/uL Hgb 11.2 L (11.4-16.0) gm/dL Hct 35.2 (34.0-46.0) % MCV 82.7 (80.0-100.0) fL MCH 26.4 (25.0-35.0) pg MCHC 31.9 (31.0-37.0) g/dL RDW 14.8 (11.5-15.5) % Plt Count 278 (150-450) k/uL Neutrophils % 63 % Lymphocytes % 30 % Monocytes % 4 % Eosinophils % 2 % Basophils % 1 % Neutrophils # 5.3 (1.3-7.7) k/uL Lymphocytes # 2.5 (1.0-4.8) k/uL Monocytes # 0.3 (0-1.0) k/uL Eosinophils # 0.2 (0-0.7) k/uL Basophils # 0.0 (0-0.2) k/uL Hypochromasia Slight PT 9.5 (9.0-12.0) sec INR 0.9 (<1.2) APTT 22.3 (22.0-30.0) sec Sodium 139 (137-145) mmol/L Potassium 4.1 (3.5-5.1) mmol/L Chloride 105 (98-107) mmol/L Carbon Dioxide 25 (22-30) mmol/L Anion Gap 9 mmol/L BUN 26 H (7-17) mg/dL Creatinine 0.84 (0.52-1.04) mg/dL Est GFR (CKD-EPI)AfAm >90 (>60 ml/min/1.73 sqM) Est GFR (CKD-EPI)NonAf 80 (>60 ml/min/1.73 sqM) Glucose 88 (74-99) mg/dL Calcium 9.6 (8.4-10.2) mg/dL Total Bilirubin 0.2 (0.2-1.3) mg/dL AST 46 H (14-36) U/L ALT 44 H (4-34) U/L Alkaline Phosphatase 310 H (38-126) U/L Total Protein 7.7 (6.3-8.2) g/dL Albumin 4.4 (3.5-5.0) g/dL Urine Color Urine Appearance (Clear) Urine pH (5.0-8.0) Ur Specific [place] (1.001-1.035) Urine Protein (Negative) Urine Glucose (UA) (Negative) Urine Ketones (Negative) Urine Blood (Negative) Urine Nitrite (Negative) Urine Bilirubin (Negative) Urine Urobilinogen (<2.0) mg/dL Ur Leukocyte Esterase (Negative) Urine RBC (0-5) /hpf Urine WBC (0-5) /hpf Ur Squamous Epith Cells (0-4) /hpf Amorphous Sediment (None) /hpf Urine Bacteria (None) /hpf Urine Mucus (None) /hpf 07/07/19 Range/Units 20:15 WBC (3.8-10.6) k/uL RBC (3.80-5.40) m/uL Hgb (11.4-16.0) gm/dL Hct (34.0-46.0) % MCV (80.0-100.0) fL MCH (25.0-35.0) pg MCHC (31.0-37.0) g/dL RDW (11.5-15.5) % Plt Count (150-450) k/uL Neutrophils % % Lymphocytes % % Monocytes % % Eosinophils % % Basophils % % Neutrophils # (1.3-7.7) k/uL Lymphocytes # (1.0-4.8) k/uL Monocytes # (0-1.0) k/uL Eosinophils # (0-0.7) k/uL Basophils # (0-0.2) k/uL Hypochromasia PT (9.0-12.0) sec INR (<1.2) APTT (22.0-30.0) sec Sodium (137-145) mmol/L Potassium (3.5-5.1) mmol/L Chloride (98-107) mmol/L Carbon Dioxide (22-30) mmol/L Anion Gap mmol/L BUN (7-17) mg/dL Creatinine (0.52-1.04) mg/dL Est GFR (CKD-EPI)AfAm (>60 ml/min/1.73 sqM) Est GFR (CKD-EPI)NonAf (>60 ml/min/1.73 sqM) Glucose (74-99) mg/dL Calcium (8.4-10.2) mg/dL Total Bilirubin (0.2-1.3) mg/dL AST (14-36) U/L ALT (4-34) U/L Alkaline Phosphatase (38-126) U/L Total Protein (6.3-8.2) g/dL Albumin (3.5-5.0) g/dL Urine Color Light Yellow Urine Appearance Cloudy H (Clear) Urine pH 7.0 (5.0-8.0) Ur Specific [place] 1.014 (1.001-1.035) Urine Protein Trace H (Negative) Urine Glucose (UA) Negative (Negative) Urine Ketones Negative (Negative) Urine Blood Moderate H (Negative) Urine Nitrite Negative (Negative) Urine Bilirubin Negative (Negative) Urine Urobilinogen <2.0 (<2.0) mg/dL Ur Leukocyte Esterase Large H (Negative) Urine RBC 66 H (0-5) /hpf Urine WBC 133 H (0-5) /hpf Ur Squamous Epith Cells 1 (0-4) /hpf Amorphous Sediment Rare H (None) /hpf Urine Bacteria Rare H (None) /hpf Urine Mucus Rare H (None) /hpf Disposition Clinical Impression: Vaginal laceration, UTI (urinary tract infection), Abdominal pain Disposition: HOME SELF-CARE Condition: Good Instructions (If sedation given, give patient instructions): Urinary Tract Infection in Women (ED) Additional Instructions: Patient advised rest, increase fluid intake. Follow-up with your primary care physician. Return to the ED if any alarming signs or symptoms occur. Prescriptions: Nitrofurantoin Monohyd/M-Cryst [Macrobid] 100 mg PO Q12HR #14 cap Is patient prescribed a controlled substance at d/c from ED?: No Referrals: Scott Medrano MD [Primary Care Provider] - 1-2 days Time of Disposition: 21:17
[2019-07-07 19:44] LABS: Basophils % (A) 1 %; Eosinophils # (A) 0.2 k/uL (0-0.7); Eosinophils % (A) 2 %; HCT 35.2 % (34.0-46.0); HGB 11.2 gm/dL (11.4-16.0); Hypochromasia Slight; Lymphocytes # (A) 2.5 k/uL (1.0-4.8); Lymphocytes % (A) 30 %; MCH 26.4 pg (25.0-35.0); MCHC 31.9 g/dL (31.0-37.0); MCV 82.7 fL (80.0-100.0); Mean Platelet Volume 8.1; Monocytes # (A) 0.3 k/uL (0-1.0); Monocytes % (A) 4 %; Neutrophils # (A) 5.3 k/uL (1.3-7.7); Neutrophils % (A) 63 %; Platelet Count 278 k/uL (150-450); RBC 4.25 m/uL (3.80-5.40); RDW 14.8 % (11.5-15.5); WBC 8.4 k/uL (3.8-10.6)
[2019-07-07 19:52] LABS: ALT 44 U/L (4-34); AST 46 U/L (14-36); African American GFR (CKD) >90 (>60 ml/min/1.73 sqM); Albumin 4.4 g/dL (3.5-5.0); Alkaline Phosphatase 310 U/L (38-126); Anion Gap 9 mmol/L; Blood Urea Nitrogen 26 mg/dL (7-17); Calcium 9.6 mg/dL (8.4-10.2); Carbon Dioxide 25 mmol/L (22-30); Chloride 105 mmol/L (98-107); Glucose 88 mg/dL (74-99); Non-African American GFR(CKD) 80 (>60 ml/min/1.73 sqM); Potassium 4.1 mmol/L (3.5-5.1); Sodium 139 mmol/L (137-145); Total Bilirubin 0.2 mg/dL (0.2-1.3); Total Protein 7.7 g/dL (6.3-8.2)
[2019-07-07 19:59] LABS: INR 0.9 (<1.2); Partial Thromboplastin Time 22.3 sec (22.0-30.0); Prothrombin Time 9.5 sec (9.0-12.0)
--- NOTE | 2019-07-07 20:19 | XR ---
EXAMINATION TYPE: XR KUB DATE OF EXAM: 07/07/2019 COMPARISON: April 05, 2017 HISTORY: Abdominal pain TECHNIQUE: FINDINGS: 2 views upright There is no sign of intestinal obstruction or pneumoperitoneum. Fecal pattern is normal. There is no evidence of a mass. Lung bases are clear. There are no pathologic calcifications. There are clips fr om cholecystectomy. IMPRESSION: Nonacute abdomen. No adverse change.
[2019-07-07] MEDS ORDERED: HYDROmorphone 1 MG/ML 1 ML SYRINGE IVP STA (20:36)
[2019-07-07 20:56] LABS: Amorphous Sediment,Urine Rare /hpf; Appearance,Urine Cloudy (Clear); Bacteria,Urine Rare /hpf; Bilirubin,Urine Negative (Negative); Blood,Urine Moderate (Negative); Color,Urine Light Yellow; Glucose,Urine (UA) Negative (Negative); Ketones,Urine Negative (Negative); Leukocyte Esterase,Urine Large (Negative); Mucus,Urine Rare /hpf; Nitrite,Urine Negative (Negative); Protein,Urine Trace (Negative); RBC,Urine 66 /hpf (0-5); Specific Gravity,Urine 1.014 (1.001-1.035); Squamous Epithelial Cell,Urine 1 /hpf (0-4); Urobilinogen,Urine <2.0 mg/dL (<2.0); WBC,Urine 133 /hpf (0-5)
[2019-07-07 20:58] VITALS: BP 146/79; PULSE 91
[2019-07-07] MEDS ORDERED: cefTRIAXone IN SWFI 1,000 MG/10 ML SYRINGE IVP STA (21:01)
[2019-07-07 21:34] VITALS: RESP 15
== END 2019-07-07 21:33 | disposition home or self-care (01) ==
LOC: EC 18:28
DX: S31.41XA Laceration without foreign body of vagina and vulva, initial encounter (principal); N39.0 Urinary tract infection, site not specified; R74.8 Abnormal levels of other serum enzymes; K76.89 Other specified diseases of liver; D64.9 Anemia, unspecified; G40.909 Epilepsy, unspecified, not intractable, without status epilepticus; F41.0 Panic disorder [episodic paroxysmal anxiety]; Z88.0 Allergy status to penicillin; Z88.1 Allergy status to other antibiotic agents; Z88.6 Allergy status to analgesic agent; Z88.8 Allergy status to other drugs, medicaments and biological substances; Z91.048 Other nonmedicinal substance allergy status; Z79.899 Other long term (current) drug therapy; Z86.14 Personal history of Methicillin resistant Staphylococcus aureus infection; Z86.69 Personal history of other diseases of the nervous system and sense organs; Z85.048 Personal history of other malignant neoplasm of rectum, rectosigmoid junction, and anus; Z85.038 Personal history of other malignant neoplasm of large intestine; Z85.43 Personal history of malignant neoplasm of ovary; Z90.49 Acquired absence of other specified parts of digestive tract; Z90.710 Acquired absence of both cervix and uterus; X58.XXXA Exposure to other specified factors, initial encounter
CPT/HCPCS: 36415; 80053; 85025; 85610; 85730; 81001; 87491; 87591; 87070; 87086; 74018; 99284; 96374; 96375 ×2; 96361 ×2; J0696; J2270; J1170; 87077; 87186

== ENCOUNTER 2019-07-17 17:25 | Emergency (ER) | payer OTHER ==
[2019-07-17] MEDS ORDERED: SODIUM CHLORIDE 0.9% 1,000 ML IV STA (18:08)
[2019-07-17] MEDS ORDERED: MORPHINE SULFATE 4 MG/ML SYRINGE IVP STA (18:09)
--- NOTE | 2019-07-17 18:22 | ED ---
Nausea/Vomiting/Diarrhea HPI - General Chief complaint: Nausea/Vomiting/Diarrhea Stated complaint: MRSA problem Time Seen by Provider: 07/17/19 17:38 Source: patient Mode of arrival: ambulatory Limitations: no limitations - History of Present Illness Initial comments: Patient is a 53-year-old female, with history of rectal and ovarian cancer, presenting to the emergency Department with complaints of abdominal pain and diarrhea. Patient states she's been having this issue for approximately one to 2 weeks. Patient was seen in the ER partially 10 days ago for similar complaint. Patient had a total hysterectomy in the , as well as colon resection last year by Dr. Modi. Patient describes her abdominal pain is in the upper part of the abdomen and is intermittent. Patient states she has been having diarrhea for the past week. She states she had tried Imodium once or twice without any effect. Patient states there seems to be a little bit of blood in her stool as well. There is no active bleeding. Patient states she is on iron pills for anemia so she sometimes has a hard time having a bowel movement. Patient denies recent fever, chills, nausea, vomiting, chest pain, cough. Patient did follow up with her doctor and they want her to have a colonoscopy soon. Patient has no other complaints at this time. Upon arrival to the ER, her vital signs are stable, afebrile. - Related Data Home Medications Medication Instructions Recorded Confirmed Brivaracetam [Briviact] 50 mg PO BID 08/01/16 04/20/19 diphenhydrAMINE HCL [Benadryl] 25 mg PO HS PRN 09/26/18 04/20/19 lamoTRIgine [LaMICtal] 200 mg PO BID 09/26/18 04/20/19 Acetaminophen Tab [Tylenol] 1,000 mg PO Q6H PRN 10/05/18 04/20/19 Topiramate 50 mg PO BID 12/19/18 04/20/19 HYDROcodone/APAP 5-325MG [[place] 1 tab PO BID PRN 04/20/19 04/20/19 5-325] clonazePAM [KlonoPIN] 1 mg PO BID 04/20/19 04/20/19 Previous Rx's Medication Instructions Recorded Diclofenac Sodium Gel [Voltaren 4 gm TOPICAL QID #1 tub 03/10/19 Gel] Ibuprofen 600 mg PO TID PRN #1 tablet 04/20/19 Phenazopyridine [Pyridium] 200 mg PO TID #18 tablet 06/01/19 Nitrofurantoin Monohyd/M-Cryst 100 mg PO Q12HR #14 cap 07/07/19 [Macrobid] Allergies Allergy/AdvReac Type Severity Reaction Status Date / Time erythromycin base Allergy Rash/Hives Verified 07/17/19 18:46 iodine Allergy Anaphylaxis Verified 07/17/19 18:46 ketorolac tromethamine Allergy Rash/Hives/ Verified 07/17/19 18:46 [From Toradol] hallucinati ons Penicillins Allergy Anaphylaxis Verified 07/17/19 18:46 azithromycin AdvReac red face Verified 07/17/19 18:46 butalbital [From Fioricet] AdvReac Unknown Verified 07/17/19 18:46 lorazepam [From Ativan] AdvReac Hallucinati Verified 07/17/19 18:46 ons Review of Systems ROS Statement: Those systems with pertinent positive or pertinent negative responses have been documented in the HPI. ROS Other: All systems not noted in ROS Statement are negative. 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, swelling of left lower leg, insomnia, hx hiatal hernia, hx colon cancer, diarrhea, hx psoriasis, Leaky heart valve, episodes of "passing out" History of Any Multi-Drug Resistant Organisms: MRSA Date of last positivie culture/infection: 07/07/19 MDRO Source:: VAGINAL Past Surgical History: Appendectomy, Bowel Resection, Cholecystectomy, Ear Surgery, Hysterectomy, Orthopedic Surgery Additional Past Surgical History / Comment(s): frantz knee arthroscopy, hiatal hernia surgery, rt ear surgery to remove middle ear Past Anesthesia/Blood Transfusion Reactions: Postoperative Nausea & Vomiting (PONV) Past Psychological History: Anxiety, Panic Disorder Smoking Status: Never smoker Past Alcohol Use History: None Reported Past Drug Use History: None Reported - Past Family History Mother Family Medical History: No Reported History Additional Family Medical History / Comment(s): . General Exam - General Exam Comments Initial Comments: GENERAL: Well-appearing, well-nourished and in no acute distress. She appears anxious. HEAD: Atraumatic, normocephalic. EYES: Pupils equal round and reactive to light, extraocular movements intact, sclera anicteric, conjunctiva are normal. ENT: TMs normal, nares patent, oropharynx clear without exudates. Moist mucous membranes. NECK: Normal range of motion, supple without lymphadenopathy or JVD. LUNGS: Breath sounds clear to auscultation bilaterally and equal. No wheezes rales or rhonchi. HEART: Regular rate and rhythm without murmurs, rubs or gallops. ABDOMEN: Tender to palpation epigastric, right upper and left upper quadrant. Soft, normoactive bowel sounds. No guarding, no rebound. No masses appreciated. : Deferred EXTREMITIES: Normal range of motion, no pitting or edema. No clubbing or cyanosis. NEUROLOGICAL: Normal speech, normal gait. PSYCH: Normal mood, normal affect. SKIN: Warm, Dry, normal turgor, no rashes or lesions noted. Limitations: no limitations Course Vital Signs 07/17/19 17:51 Temperature 97.3 F L Pulse Rate 84 Respiratory 18 Rate Blood Pressure 148/86 O2 Sat by Pulse 95 Oximetry Medical Decision Making - Medical Decision Making Patient is a 53-year-old female here for upper abdominal discomfort and diarrhea x 1-2 weeks. Vital signs are stable. Mild abdominal tenderness upon palpation. No leukocytosis. Coags are normal. Kidney function is normal. Lactic acid is 0.8. Liver enzymes are slightly elevated however this is chronic in nature. Lipase is normal. Urine shows no signs of infection. KUB shows nonspecific bowel gas pattern. No other acute abnormalities seen. Patient was given fluids and morphine. She reports mild improvement in her symptoms. Patient appears nontoxic, resting comfortably on the bed. Patient's recent computed tomography scan of the abdomen was reviewed. She is following with Dr. Modi's office and is awaiting a colonoscopy. I discussed with patient that she is stable for discharge. She needs continue with Imodium 4 the diarrhea as well as continuing to increase her fluid intake. Increase fiber intake. Patient will follow up with Dr. Modi's office. Patient is in agreement with this plan of care. She is requesting pain medicine so she is able to sleep tonight. Patient given Ult mitesh starter pack. Return parameters were discussed with the patient and she verbalized understanding. Case discussed with Dr. Blevins. - Lab Data Result diagrams: 07/17/19 18:35 07/17/19 18:35 Lab Results 07/17/19 07/17/19 07/17/19 Range/Units 18:35 18:35 18:35 WBC 6.2 (3.8-10.6) k/uL RBC 4.01 (3.80-5.40) m/uL Hgb 10.6 L (11.4-16.0) gm/dL Hct 32.9 L (34.0-46.0) % MCV 82.2 (80.0-100.0) fL MCH 26.4 (25.0-35.0) pg MCHC 32.1 (31.0-37.0) g/dL RDW 15.0 (11.5-15.5) % Plt Count 288 (150-450) k/uL Neutrophils % 61 % Lymphocytes % 33 % Monocytes % 4 % Eosinophils % 1 % Basophils % 0 % Neutrophils # 3.8 (1.3-7.7) k/uL Lymphocytes # 2.0 (1.0-4.8) k/uL Monocytes # 0.2 (0-1.0) k/uL Eosinophils # 0.1 (0-0.7) k/uL Basophils # 0.0 (0-0.2) k/uL Hypochromasia Slight PT 9.5 (9.0-12.0) sec INR 0.9 (<1.2) APTT 22.5 (22.0-30.0) sec Sodium (137-145) mmol/L Potassium (3.5-5.1) mmol/L Chloride (98-107) mmol/L Carbon Dioxide (22-30) mmol/L Anion Gap mmol/L BUN (7-17) mg/dL Creatinine (0.52-1.04) mg/dL Est GFR (CKD-EPI)AfAm (>60 ml/min/1.73 sqM) Est GFR (CKD-EPI)NonAf (>60 ml/min/1.73 sqM) Glucose (74-99) mg/dL Plasma Lactic Acid [place] (0.7-2.0) mmol/L Calcium (8.4-10.2) mg/dL Total Bilirubin (0.2-1.3) mg/dL AST (14-36) U/L ALT (4-34) U/L Alkaline Phosphatase (38-126) U/L Total Protein (6.3-8.2) g/dL Albumin (3.5-5.0) g/dL Amylase (30-110) U/L Lipase (23-300) U/L Urine Color Yellow Urine Appearance Cloudy H (Clear) Urine pH 6.0 (5.0-8.0) Ur Specific [place] 1.031 (1.001-1.035) Urine Protein Trace H (Negative) Urine Glucose (UA) Negative (Negative) Urine Ketones Negative (Negative) Urine Blood Negative (Negative) Urine Nitrite Negative (Negative) Urine Bilirubin Negative (Negative) Urine Urobilinogen <2.0 (<2.0) mg/dL Ur Leukocyte Esterase Moderate H (Negative) Urine RBC 3 (0-5) /hpf Urine WBC 5 (0-5) /hpf Ur Squamous Epith Cells <1 (0-4) /hpf Calcium Oxalate Crystal Occasional H (None) /hpf Hyaline Casts 1 (0-2) /lpf Urine Mucus Rare H (None) /hpf 07/17/19 07/17/19 Range/Units 18:35 18:35 WBC (3.8-10.6) k/uL RBC (3.80-5.40) m/uL Hgb (11.4-16.0) gm/dL Hct (34.0-46.0) % MCV (80.0-100.0) fL MCH (25.0-35.0) pg MCHC (31.0-37.0) g/dL RDW (11.5-15.5) % Plt Count (150-450) k/uL Neutrophils % % Lymphocytes % % Monocytes % % Eosinophils % % Basophils % % Neutrophils # (1.3-7.7) k/uL Lymphocytes # (1.0-4.8) k/uL Monocytes # (0-1.0) k/uL Eosinophils # (0-0.7) k/uL Basophils # (0-0.2) k/uL Hypochromasia PT (9.0-12.0) sec INR (<1.2) APTT (22.0-30.0) sec Sodium 138 (137-145) mmol/L Potassium 4.3 (3.5-5.1) mmol/L Chloride 107 (98-107) mmol/L Carbon Dioxide 22 (22-30) mmol/L Anion Gap 9 mmol/L BUN 23 H (7-17) mg/dL Creatinine 0.96 (0.52-1.04) mg/dL Est GFR (CKD-EPI)AfAm 78 (>60 ml/min/1.73 sqM) Est GFR (CKD-EPI)NonAf 68 (>60 ml/min/1.73 sqM) Glucose 84 (74-99) mg/dL Plasma Lactic Acid [place] 0.8 (0.7-2.0) mmol/L Calcium 9.5 (8.4-10.2) mg/dL Total Bilirubin 0.2 (0.2-1.3) mg/dL AST 57 H (14-36) U/L ALT 50 H (4-34) U/L Alkaline Phosphatase 333 H (38-126) U/L Total Protein 7.3 (6.3-8.2) g/dL Albumin 4.2 (3.5-5.0) g/dL Amylase 63 (30-110) U/L Lipase 77 (23-300) U/L Urine Color Urine Appearance (Clear) Urine pH (5.0-8.0) Ur Specific [place] (1.001-1.035) Urine Protein (Negative) Urine Glucose (UA) (Negative) Urine Ketones (Negative) Urine Blood (Negative) Urine Nitrite (Negative) Urine Bilirubin (Negative) Urine Urobilinogen (<2.0) mg/dL Ur Leukocyte Esterase (Negative) Urine RBC (0-5) /hpf Urine WBC (0-5) /hpf Ur Squamous Epith Cells (0-4) /hpf Calcium Oxalate Crystal (None) /hpf Hyaline Casts (0-2) /lpf Urine Mucus (None) /hpf Disposition Clinical Impression: Abdominal pain, Diarrhea Disposition: HOME SELF-CARE Condition: Stable Instructions (If sedation given, give patient instructions): Acute Diarrhea (ED) Additional Instructions: Please return to the Emergency Department if symptoms worsen or any other concerns. Continue with Imodium as discussed. Follow up with Dr. Modi's office. Is patient prescribed a controlled substance at d/c from ED?: No Referrals: Scott Medrano MD [Primary Care Provider] - 1-2 days
--- NOTE | 2019-07-17 18:53 | XR ---
EXAMINATION TYPE: XR KUB DATE OF EXAM: 07/17/2019 COMPARISON: 07/07/2019 HISTORY: Pain TECHNIQUE: Single supine KUB image of the abdomen is obtained FINDINGS: There are few mildly distended loops of small bowel measuring up to 2.8 cm with nonspecific scattered air-fluid levels. Gas and fecal material is seen in non-distended colon. No convincing evidence for pneumoperitoneum. No unusual calcifications. The lung bases are clear. The osseous structures are intact. IMPRESSION: 1. Nonspecific bowel gas pattern.
[2019-07-17 18:57] LABS: Appearance,Urine Cloudy (Clear); Bilirubin,Urine Negative (Negative); Blood,Urine Negative (Negative); Calcium Oxalate Crystals,Urine Occasional /hpf; Color,Urine Yellow; Glucose,Urine (UA) Negative (Negative); Hyaline Casts,Urine 1 /lpf (0-2); Ketones,Urine Negative (Negative); Leukocyte Esterase,Urine Moderate (Negative); Mucus,Urine Rare /hpf; Nitrite,Urine Negative (Negative); Protein,Urine Trace (Negative); RBC,Urine 3 /hpf (0-5); Specific Gravity,Urine 1.031 (1.001-1.035); Squamous Epithelial Cell,Urine <1 /hpf (0-4); Urobilinogen,Urine <2.0 mg/dL (<2.0); WBC,Urine 5 /hpf (0-5)
[2019-07-17 18:59] LABS: Basophils % (A) 0 %; Eosinophils # (A) 0.1 k/uL (0-0.7); Eosinophils % (A) 1 %; HCT 32.9 % (34.0-46.0); HGB 10.6 gm/dL (11.4-16.0); Hypochromasia Slight; Lymphocytes % (A) 33 %; MCH 26.4 pg (25.0-35.0); MCHC 32.1 g/dL (31.0-37.0); MCV 82.2 fL (80.0-100.0); Mean Platelet Volume 8.1; Monocytes # (A) 0.2 k/uL (0-1.0); Monocytes % (A) 4 %; Neutrophils # (A) 3.8 k/uL (1.3-7.7); Neutrophils % (A) 61 %; Platelet Count 288 k/uL (150-450); RBC 4.01 m/uL (3.80-5.40); WBC 6.2 k/uL (3.8-10.6)
[2019-07-17 19:04] LABS: INR 0.9 (<1.2); Partial Thromboplastin Time 22.5 sec (22.0-30.0); Prothrombin Time 9.5 sec (9.0-12.0)
[2019-07-17 19:07] LABS: Albumin 4.2 g/dL (3.5-5.0); Calcium 9.5 mg/dL (8.4-10.2); Potassium 4.3 mmol/L (3.5-5.1); Total Bilirubin 0.2 mg/dL (0.2-1.3); Total Protein 7.3 g/dL (6.3-8.2)
[2019-07-17] MEDS ORDERED: traMADol 50 MG STARTER PACK 3 TAB BTL PO STA (19:36)
[2019-07-17 19:48] VITALS: BP 144/84; PULSE 71; RESP 20; TEMP 97
== END 2019-07-17 19:48 | disposition home or self-care (01) ==
LOC: EC 17:25
DX: R10.10 Upper abdominal pain, unspecified (principal); R19.7 Diarrhea, unspecified; R10.819 Abdominal tenderness, unspecified site; F41.0 Panic disorder [episodic paroxysmal anxiety]; D64.9 Anemia, unspecified; Z79.899 Other long term (current) drug therapy; Z88.1 Allergy status to other antibiotic agents; Z91.048 Other nonmedicinal substance allergy status; Z88.5 Allergy status to narcotic agent; Z88.0 Allergy status to penicillin; Z88.8 Allergy status to other drugs, medicaments and biological substances; Z85.038 Personal history of other malignant neoplasm of large intestine; Z85.048 Personal history of other malignant neoplasm of rectum, rectosigmoid junction, and anus; Z85.43 Personal history of malignant neoplasm of ovary
CPT/HCPCS: 36415; 80053; 82150; 83605; 83690; 85025; 85610; 85730; 81001; 74018; 99284; 96374; 96361; J2270

== ENCOUNTER 2019-08-01 21:53 | Emergency (ER) | payer OTHER ==
[2019-08-01 22:03] VITALS: BP 141/55; PULSE 97; RESP 20; TEMP 97.9
[2019-08-01] MEDS ORDERED: METOCLOPRAMIDE 5 MG/ML 2 ML VIAL IM STA (22:22)
[2019-08-01] MEDS ORDERED: HYDROmorphone 1 MG/ML 1 ML SYRINGE IM STA (22:22)
--- NOTE | 2019-08-01 22:27 | ED ---
General Adult HPI - General Chief complaint: Headache Stated complaint: Headache Time Seen by Provider: 08/01/19 22:02 Source: patient, RN notes reviewed Mode of arrival: ambulatory Limitations: no limitations - History of Present Illness Initial comments: Patient is a pleasant 53-year-old female presenting to the emergency Department with complaints of headache. Gradual onset headache that has progressed over the past 10-11 days. Headache is frontal. Patient does have some associated blurred vision. No nausea. No weakness or confusion. Patient does have history of chronic headaches for many years. Headaches have been worse over the past 3 years. Patient has seen every neurologist in town. Patient has also seen at least 2 neurologist out of town. Patient has had several previous head CTs. Patient states the only thing that works well for her headaches is Dilaudid. Patient states she has fiorcet, but "thats just like candy." - Related Data Home Medications Medication Instructions Recorded Confirmed Brivaracetam [Briviact] 50 mg PO BID 08/01/16 07/17/19 lamoTRIgine [LaMICtal] 200 mg PO BID 09/26/18 07/17/19 Acetaminophen Tab [Tylenol] 1,000 mg PO Q6H PRN 10/05/18 07/17/19 Topiramate 50 mg PO BID 12/19/18 07/17/19 clonazePAM [KlonoPIN] 1.5 mg PO Q12H PRN 04/20/19 07/17/19 Cholecalciferol (Vitamin D3) 6,000 unit PO DAILY 07/17/19 07/17/19 [Vitamin D3] Nystatin 100,000Unit/gm Cream 1 applic TOPICAL TID 07/17/19 07/17/19 [Mycostatin Cream] QUEtiapine [SEROquel] 50 mg PO HS 07/17/19 07/17/19 Allergies Allergy/AdvReac Type Severity Reaction Status Date / Time erythromycin base Allergy Rash/Hives Verified 08/01/19 22:02 iodine Allergy Anaphylaxis Verified 08/01/19 22:02 ketorolac tromethamine Allergy Rash/Hives/ Verified 08/01/19 22:02 [From Toradol] hallucinati ons Penicillins Allergy Anaphylaxis Verified 08/01/19 22:02 azithromycin AdvReac red face Verified 08/01/19 22:02 butalbital [From Fioricet] AdvReac Unknown Verified 08/01/19 22:02 lorazepam [From Ativan] AdvReac Hallucinati Verified 08/01/19 22:02 ons Review of Systems ROS Statement: Those systems with pertinent positive or pertinent negative responses have been documented in the HPI. ROS Other: All systems not noted in ROS Statement are negative. Constitutional: Denies: fever Eyes: Reports: as per HPI. Denies: eye pain ENT: Denies: ear pain Respiratory: Denies: cough Cardiovascular: Denies: chest pain Endocrine: Denies: fatigue Gastrointestinal: Denies: abdominal pain Genitourinary: Denies: dysuria Musculoskeletal: Denies: back pain Skin: Denies: rash Neurological: Reports: as per HPI, headache. 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, swelling of left lower leg, insomnia, hx hiatal hernia, hx colon cancer, diarrhea, hx psoriasis, Leaky heart valve, episodes of "passing out" History of Any Multi-Drug Resistant Organisms: MRSA Date of last positivie culture/infection: 07/07/19 MDRO Source:: VAGINAL Past Surgical History: Appendectomy, Bowel Resection, Cholecystectomy, Ear Surgery, Hysterectomy, Orthopedic Surgery Additional Past Surgical History / Comment(s): frantz knee arthroscopy, hiatal hernia surgery, rt ear surgery to remove middle ear Past Anesthesia/Blood Transfusion Reactions: Postoperative Nausea & Vomiting (PONV) Past Psychological History: Anxiety, Panic Disorder Smoking Status: Never smoker Past Alcohol Use History: None Reported Past Drug Use History: None Reported - Past Family History Mother Family Medical History: No Reported History Additional Family Medical History / Comment(s): . General Exam Limitations: no limitations General appearance: alert, in no apparent distress Head exam: Present: normocephalic Eye exam: Present: normal appearance, PERRL, EOMI. Absent: nystagmus ENT exam: Present: normal oropharynx Neck exam: Present: normal inspection Respiratory exam: Present: normal lung sounds bilaterally Cardiovascular Exam: Present: regular rate, normal rhythm GI/Abdominal exam: Present: soft. Absent: tenderness Extremities exam: Present: normal inspection Neurological exam: Present: alert, oriented X3, CN II-XII intact. Absent: motor sensory deficit Expanded Neurological exam: Present: protecting the airway Speech: Present: fluid speech Cranial nerves: EOM's Intact: Normal, Facial Sensation: Normal Sensory exam: Upper Extremity Light Touch: Normal, Lower Extremity Light Touch: Normal Motor strength exam: RUE: 5, LUE: 5, RLE: 5, LLE: 5 Eye Response: (4) open spontaneously Motor Response: (6) obeys commands Verbal Response: (5) oriented Psychiatric exam: Present: normal affect, normal mood Skin exam: Present: normal color Course Vital Signs 08/01/19 22:01 Temperature 97.9 F Pulse Rate 97 Respiratory 20 Rate Blood Pressure 141/55 O2 Sat by Pulse 96 Oximetry Disposition Clinical Impression: Cephalgia Disposition: HOME SELF-CARE Condition: Stable Instructions (If sedation given, give patient instructions): Acute Headache (ED) Additional Instructions: Please follow-up to primary care physician and neurologist in the next couple days for recheck. Return for weakness, fever, confusion, worsening or change in symptoms or other concerns. Is patient prescribed a controlled substance at d/c from ED?: No Referrals: Scott Medrano MD [Primary Care Provider] - 1-2 days Jeninfer Reina MD [Medical Doctor] - 1-2 days Time of Disposition: 22:26
== END 2019-08-01 22:41 | disposition home or self-care (01) ==
LOC: EC 21:53
DX: G43.909 Migraine, unspecified, not intractable, without status migrainosus (principal); F41.9 Anxiety disorder, unspecified; F41.0 Panic disorder [episodic paroxysmal anxiety]; M79.7 Fibromyalgia; G40.909 Epilepsy, unspecified, not intractable, without status epilepticus; Z79.899 Other long term (current) drug therapy; Z86.14 Personal history of Methicillin resistant Staphylococcus aureus infection; Z88.1 Allergy status to other antibiotic agents; Z91.048 Other nonmedicinal substance allergy status; Z88.8 Allergy status to other drugs, medicaments and biological substances; Z88.6 Allergy status to analgesic agent; Z88.0 Allergy status to penicillin
CPT/HCPCS: 96372 ×2; 99283; J2765; J1170

== ENCOUNTER 2019-08-02 18:42 | Emergency (ER) | payer OTHER ==
[2019-08-02] MEDS ORDERED: SUMAtriptan SUCCINATE 6 MG/0.5 ML VIAL SQ STA (19:30)
[2019-08-02] MEDS ORDERED: METOCLOPRAMIDE 5 MG/ML 2 ML VIAL IM STA (19:30)
[2019-08-02] MEDS ORDERED: diphenhydrAMINE 25 MG CAP PO STA (19:30)
--- NOTE | 2019-08-02 19:34 | ED ---
Headache HPI - General Chief Complaint: Headache Stated Complaint: Headache Time Seen by Provider: 08/02/19 19:06 Mode of arrival: ambulatory Limitations: no limitations - History of Present Illness Initial Comments: Patient is a 53-year-old female, well-known to the ER, presenting to the emergency Department with complaints of a headache since this morning. Patient was in the ER yesterday for same complaint. She states that headache 8 come back today and she spoke with her PCP, Dr. Medrano who called her and a prescription however patient was unable to pick it up secondary to the cost. Patient does not know the name of this prescription. Patient also stated that if her "headache gets worse, Dr. Medrano said to go into the ER to get Dilaudid again." Patient denies any fever, chills, lightheadedness. She denies any other falls or trauma. She has no other complaints at this time. Upon arrival to ER, her vital signs are stable. - Related Data Home Medications Medication Instructions Recorded Confirmed Brivaracetam [Briviact] 50 mg PO BID 08/01/16 07/17/19 lamoTRIgine [LaMICtal] 200 mg PO BID 09/26/18 07/17/19 Acetaminophen Tab [Tylenol] 1,000 mg PO Q6H PRN 10/05/18 07/17/19 Topiramate 50 mg PO BID 12/19/18 07/17/19 clonazePAM [KlonoPIN] 1.5 mg PO Q12H PRN 04/20/19 07/17/19 Cholecalciferol (Vitamin D3) 6,000 unit PO DAILY 07/17/19 07/17/19 [Vitamin D3] Nystatin 100,000Unit/gm Cream 1 applic TOPICAL TID 07/17/19 07/17/19 [Mycostatin Cream] QUEtiapine [SEROquel] 50 mg PO HS 07/17/19 07/17/19 Allergies Allergy/AdvReac Type Severity Reaction Status Date / Time erythromycin base Allergy Rash/Hives Verified 08/01/19 22:02 iodine Allergy Anaphylaxis Verified 08/01/19 22:02 ketorolac tromethamine Allergy Rash/Hives/ Verified 08/01/19 22:02 [From Toradol] hallucinati ons Penicillins Allergy Anaphylaxis Verified 08/01/19 22:02 azithromycin AdvReac red face Verified 08/01/19 22:02 butalbital [From Fioricet] AdvReac Unknown Verified 08/01/19 22:02 lorazepam [From Ativan] AdvReac Hallucinati Verified 08/01/19 22:02 ons Review of Systems ROS Statement: Those systems with pertinent positive or pertinent negative responses have been documented in the HPI. ROS Other: All systems not noted in ROS Statement are negative. 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, swelling of left lower leg, insomnia, hx hiatal hernia, hx colon cancer, diarrhea, hx psoriasis, Leaky heart valve, episodes of "passing out" History of Any Multi-Drug Resistant Organisms: MRSA Date of last positivie culture/infection: 07/07/19 MDRO Source:: VAGINAL Past Surgical History: Appendectomy, Bowel Resection, Cholecystectomy, Ear Surgery, Hysterectomy, Orthopedic Surgery Additional Past Surgical History / Comment(s): frantz knee arthroscopy, hiatal hernia surgery, rt ear surgery to remove middle ear Past Anesthesia/Blood Transfusion Reactions: Postoperative Nausea & Vomiting (PONV) Past Psychological History: Anxiety, Panic Disorder Smoking Status: Never smoker Past Alcohol Use History: None Reported Past Drug Use History: None Reported - Past Family History Mother Family Medical History: No Reported History Additional Family Medical History / Comment(s): . General Exam - General Exam Comments Initial Comments: GENERAL: Well-appearing, well-nourished and in no acute distress. HEAD: Atraumatic, normocephalic. EYES: Pupils equal round and reactive to light, extraocular movements intact, sclera anicteric, conjunctiva are normal. ENT: TMs normal, nares patent, oropharynx clear without exudates. Moist mucous mem branes. NECK: Normal range of motion, supple without lymphadenopathy or JVD. LUNGS: Breath sounds clear to auscultation bilaterally and equal. No wheezes rales or rhonchi. HEART: Regular rate and rhythm without murmurs, rubs or gallops. ABDOMEN: Soft, nontender, normoactive bowel sounds. No guarding, no rebound. No masses appreciated. : Deferred EXTREMITIES: Normal range of motion, no pitting or edema. No clubbing or cyanosis. Strength is 5 out of 5 bilateral lower and upper extremities. Sensation is equal and bilateral. NEUROLOGICAL: Cranial nerves II through XII grossly intact. Normal speech, normal gait. PSYCH: Normal mood, normal affect. SKIN: Warm, Dry, normal turgor, no rashes or lesions noted. Limitations: no limitations Course Vital Signs 08/02/19 18:44 Temperature 97.5 F L Pulse Rate 68 Respiratory 18 Rate Blood Pressure 139/66 O2 Sat by Pulse 100 Oximetry Medical Decision Making - Medical Decision Making Patient is a 53-year-old female here for headache 1 day. Patient was seen yesterday for same complaint and has been in the ER multiple occasions. Patient's vital signs are stable, had exam is unremarkable. Is requesting Dilaudid for her headache. I discussed with patient that we cannot give Dilaudid for her headache and she will be given IM Imitrex, Reglan, and PO Benadryl. She is in agreement with this plan of care. I then recommended following up with her PCP tomorrow. Patient is stable for discharge. Return parameters were discussed with the patient she verbalized understanding. Case discussed with Dr. Benavides. Disposition Clinical Impression: Headache Disposition: HOME SELF-CARE Condition: Stable Instructions (If sedation given, give patient instructions): Acute Headache (ED) Additional Instructions: Please return to the Emergency Department if symptoms worsen or any other concerns. Use warm compresses to the neck and upper back muscles. Drink plenty of water, rest in a dark room. Follow-up with PCP. Is patient prescribed a controlled substance at d/c from ED?: No Referrals: Scott Medrano MD [Primary Care Provider] - 1-2 days
[2019-08-02 20:19] VITALS: BP 156/63; PULSE 65; RESP 16; TEMP 97.1
== END 2019-08-02 20:19 | disposition home or self-care (01) ==
LOC: EC 18:42
DX: R51 Headache (principal); G40.409 Other generalized epilepsy and epileptic syndromes, not intractable, without status epilepticus; F41.0 Panic disorder [episodic paroxysmal anxiety]; Z79.899 Other long term (current) drug therapy; Z88.0 Allergy status to penicillin; Z88.1 Allergy status to other antibiotic agents; Z88.5 Allergy status to narcotic agent; Z91.048 Other nonmedicinal substance allergy status; Z88.8 Allergy status to other drugs, medicaments and biological substances; Z85.038 Personal history of other malignant neoplasm of large intestine
CPT/HCPCS: 99283; 96372 ×2; J3030; J2765

== ENCOUNTER 2019-08-10 22:51 | Emergency (ER) | payer OTHER ==
[2019-08-10 22:58] VITALS: BP 149/79; PULSE 80; RESP 18; TEMP 97.9
[2019-08-10] MEDS ORDERED: HYDROmorphone 1 MG/ML 1 ML SYRINGE IVP STA (23:17)
[2019-08-10] MEDS ORDERED: SODIUM CHLORIDE 0.9% 1,000 ML IV STA (23:17)
[2019-08-10] MEDS ORDERED: ONDANSETRON 4 MG/2 ML VIAL IVP STA (23:17)
--- NOTE | 2019-08-10 23:21 | ED ---
Abdominal Pain HPI - General Chief Complaint: Abdominal Pain Stated Complaint: Abdominal Pain Time Seen by Provider: 08/10/19 23:03 Source: patient Mode of arrival: ambulatory Limitations: no limitations - History of Present Illness Initial Comments: 53-year-old female patient presents to the emergency department today for evaluation of abdominal pain. Patient states that she has been having abdominal pain to the left side of her abdomen for quite some time. States that she has seen Dr. Modi and been evaluated for this and he is going to perform an MRI which is scheduled for Tuesday. Patient states that her pain today has been out of control. States it is mostly to the left side of the abdomen. Denies any radiation of the pain through to her back. States that she generally has diarrhea, states she did have a small amount of blood today. States she is having mild burning with urination. Denies any fever or chills. States she has a good appetite with no nausea or vomiting. Patient has had cholecystectomy, appendectomy, and hiatal hernia repair in the past. She does have a history of colon cancer diagnosed in May 2018. Patient denies any recent rash, cough, shortness of breath, chest pain, constipation, back pain, numbness, tingling, dizziness, weakness, hematuria, dysuria, urinary urgency, urinary frequency, headache, visual changes, or any other complaints. - Related Data Home Medications Medication Instructions Recorded Confirmed Brivaracetam [Briviact] 50 mg PO BID 08/01/16 07/17/19 lamoTRIgine [LaMICtal] 200 mg PO BID 09/26/18 07/17/19 Acetaminophen Tab [Tylenol] 1,000 mg PO Q6H PRN 10/05/18 07/17/19 Topiramate 50 mg PO BID 12/19/18 07/17/19 clonazePAM [KlonoPIN] 1.5 mg PO Q12H PRN 04/20/19 07/17/19 Cholecalciferol (Vitamin D3) 6,000 unit PO DAILY 07/17/19 07/17/19 [Vitamin D3] Nystatin 100,000Unit/gm Cream 1 applic TOPICAL TID 07/17/19 07/17/19 [Mycostatin Cream] QUEtiapine [SEROquel] 50 mg PO HS 07/17/19 07/17/19 Previous Rx's Medication Instructions Recorded Nitrofurantoin Monohyd/M-Cryst 100 mg PO Q12HR #14 cap 08/11/19 [Macrobid] Allergies Allergy/AdvReac Type Severity Reaction Status Date / Time erythromycin base Allergy Rash/Hives Verified 08/10/19 22:59 iodine Allergy Anaphylaxis Verified 08/10/19 22:59 ketorolac tromethamine Allergy Rash/Hives/ Verified 08/10/19 22:59 [From Toradol] hallucinati ons Penicillins Allergy Anaphylaxis Verified 08/10/19 22:59 azithromycin AdvReac red face Verified 08/10/19 22:59 butalbital [From Fioricet] AdvReac Unknown Verified 08/10/19 22:59 lorazepam [From Ativan] AdvReac Hallucinati Verified 08/10/19 22:59 ons Review of Systems ROS Statement: Those systems with pertinent positive or pertinent negative responses have been documented in the HPI. ROS Other: All systems not noted in ROS Statement are negative. 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, swelling of left lower leg, insomnia, hx hiatal hernia, hx colon cancer, diarrhea, hx psoriasis, Leaky heart valve, episodes of "passing out" History of Any Multi-Drug Resistant Organisms: MRSA Date of last positivie culture/infection: 07/07/19 MDRO Source:: VAGINAL Past Surgical History: Appendectomy, Bowel Resection, Cholecystectomy, Ear Surgery, Hysterectomy, Orthopedic Surgery Additional Past Surgical History / Comment(s): frantz knee arthroscopy, hiatal hernia surgery, rt ear surgery to remove middle ear Past Anesthesia/Blood Transfusion Reactions: Postoperative Nausea & Vomiting (PONV) Past Psychological History: Anxiety, Panic Disorder Smoking Status: Never smoker Past Alcohol Use History: None Reported Past Drug Use History: None Reported - Past Family History Mother Family Medical History: No Reported History Additional Family Medical History / Comment(s): . General Exam Limitations: no limitations General appearance: alert, in no apparent distress, other (This is a well- developed, well-nourished adult female patient in no acute distress. Vital signs upon presentation are temperature 97.9F, pulse 80, respirations 18, blood pressure 149/79, pulse ox 99% on room air per) Eye exam: Present: normal appearance, PERRL, EOMI. Absent: scleral icterus, conjunctival injection, periorbital swelling ENT exam: Present: normal exam, normal oropharynx, mucous membranes moist Respiratory exam: Present: normal lung sounds bilaterally. Absent: respiratory distress, wheezes, rales, rhonchi, stridor Cardiovascular Exam: Present: regular rate, normal rhythm, normal heart sounds. Absent: systolic murmur, diastolic murmur, rubs, gallop, clicks GI/Abdominal exam: Present: soft, tenderness (Generalized abdominal tenderness), normal bowel sounds. Absent: distended, guarding, rebound, rigid Neurological exam: Present: alert, oriented X3, CN II-XII intact Psychiatric exam: Present: normal affect, normal mood Skin exam: Present: warm, dry, intact, normal color. Absent: rash Course Vital Signs 08/10/19 22:53 Temperature 97.9 F Pulse Rate 80 Respiratory 18 Rate Blood Pressure 149/79 O2 Sat by Pulse 99 Oximetry Medical Decision Making - Medical Decision Making 53-year-old female patient presents to the emergency department today for evaluation of left-sided abdominal pain. Patient states she's been having this pain for quite some time and has been evaluated by surgeon Dr. Modi. She has an MRI ordered for Tuesday. Patient does have [place] home but states she hasn't been taking fish is like to take medications. Abdomen is generally tender. Labs reviewed and are relatively unremarkable. Chills have mild urinary tract infection. X-ray of the abdomen is negative. She did have computed tomography scan at the end of June which was reviewed. She was given IV fluids and pain medication here in the department. Upon reevaluation shows report improvement of symptoms. She'll be discharged to follow-up with Dr. Modi and have her try on Tuesday. She'll be given Macrobid for the UTI. Return parameters were discussed in detail. She verbalizes understanding and agrees with this plan. - Lab Data Result diagrams: 08/10/19 23:32 08/10/19 23:32 Lab Results 08/10/19 08/10/19 08/10/19 Range/Units 23:32 23:32 23:32 WBC 7.8 (3.8-10.6) k/uL RBC 3.97 (3.80-5.40) m/uL Hgb 10.7 L (11.4-16.0) gm/dL Hct 33.1 L (34.0-46.0) % MCV 83.5 (80.0-100.0) fL MCH 27.0 (25.0-35.0) pg MCHC 32.3 (31.0-37.0) g/dL RDW 15.6 H (11.5-15.5) % Plt Count 249 (150-450) k/uL Neutrophils % 67 % Lymphocytes % 26 % Monocytes % 3 % Eosinophils % 2 % Basophils % 0 % Neutrophils # 5.2 (1.3-7.7) k/uL Lymphocytes # 2.0 (1.0-4.8) k/uL Monocytes # 0.2 (0-1.0) k/uL Eosinophils # 0.1 (0-0.7) k/uL Basophils # 0.0 (0-0.2) k/uL PT 9.5 (9.0-12.0) sec INR 0.9 (<1.2) APTT 22.0 (22.0-30.0) sec Sodium 139 (137-145) mmol/L Potassium 3.7 (3.5-5.1) mmol/L Chloride 110 H (98-107) mmol/L Carbon Dioxide 22 (22-30) mmol/L Anion Gap 7 mmol/L BUN 21 H (7-17) mg/dL Creatinine 0.79 (0.52-1.04) mg/dL Est GFR (CKD-EPI)AfAm >90 (>60 ml/min/1.73 sqM) Est GFR (CKD-EPI)NonAf 87 (>60 ml/min/1.73 sqM) Glucose 120 H (74-99) mg/dL Plasma Lactic Acid Williams (0.7-2.0) mmol/L Calcium 9.3 (8.4-10.2) mg/dL Total Bilirubin 0.1 L (0.2-1.3) mg/dL AST 29 (14-36) U/L ALT 21 (4-34) U/L Alkaline Phosphatase 253 H (38-126) U/L Total Protein 6.8 (6.3-8.2) g/dL Albumin 3.7 (3.5-5.0) g/dL Amylase 59 (30-110) U/L Lipase 108 (23-300) U/L Urine Color Urine Appearance (Clear) Urine pH (5.0-8.0) Ur Specific [place] (1.001-1.035) Urine Protein (Negative) Urine Glucose (UA) (Negative) Urine Ketones (Negative) Urine Blood (Negative) Urine Nitrite (Negative) Urine Bilirubin (Negative) Urine Urobilinogen (<2.0) mg/dL Ur Leukocyte Esterase (Negative) Urine RBC (0-5) /hpf Urine WBC (0-5) /hpf Ur Squamous Epith Cells (0-4) /hpf Amorphous Sediment (None) /hpf Hyaline Casts (0-2) /lpf Urine Mucus (None) /hpf 08/10/19 08/10/19 Range/Units 23:32 23:32 WBC (3.8-10.6) k/uL RBC (3.80-5.40) m/uL Hgb (11.4-16.0) gm/dL Hct (34.0-46.0) % MCV (80.0-100.0) fL MCH (25.0-35.0) pg MCHC (31.0-37.0) g/dL RDW (11.5-15.5) % Plt Count (150-450) k/uL Neutrophils % % Lymphocytes % % Monocytes % % Eosinophils % % Basophils % % Neutrophils # (1.3-7.7) k/uL Lymphocytes # (1.0-4.8) k/uL Monocytes # (0-1.0) k/uL Eosinophils # (0-0.7) k/uL Basophils # (0-0.2) k/uL PT (9.0-12.0) sec INR (<1.2) APTT (22.0-30.0) sec Sodium (137-145) mmol/L Potassium (3.5-5.1) mmol/L Chloride (98-107) mmol/L Carbon Dioxide (22-30) mmol/L Anion Gap mmol/L BUN (7-17) mg/dL Creatinine (0.52-1.04) mg/dL Est GFR (CKD-EPI)AfAm (>60 ml/min/1.73 sqM) Est GFR (CKD-EPI)NonAf (>60 ml/min/1.73 sqM) Glucose (74-99) mg/dL Plasma Lactic Acid [place] 1.3 (0.7-2.0) mmol/L Calcium (8.4-10.2) mg/dL Total Bilirubin (0.2-1.3) mg/dL AST (14-36) U/L ALT (4-34) U/L Alkaline Phosphatase (38-126) U/L Total Protein (6.3-8.2) g/dL Albumin (3.5-5.0) g/dL Amylase (30-110) U/L Lipase (23-300) U/L Urine Color Yellow Urine Appearance Cloudy H (Clear) Urine pH 6.5 (5.0-8.0) Ur Specific [place] 1.022 (1.001-1.035) Urine Protein Negative (Negative) Urine Glucose (UA) Negative (Negative) Urine Ketones Negative (Negative) Urine Blood Negative (Negative) Urine Nitrite Negative (Negative) Urine Bilirubin Negative (Negative) Urine Urobilinogen <2.0 (<2.0) mg/dL Ur Leukocyte Esterase Large H (Negative) Urine RBC 2 (0-5) /hpf Urine WBC 38 H (0-5) /hpf Ur Squamous Epith Cells 1 (0-4) /hpf Amorphous Sediment Rare H (None) /hpf Hyaline Casts 1 (0-2) /lpf Urine Mucus Rare H (None) /hpf - Radiology Data Radiology results: report reviewed, image reviewed KUB x-ray was obtained. Report was reviewed in its entirety. Impression by Dr. Edwards shows overall nonobstructive bowel gas pattern. Disposition Clinical Impression: Abdominal pain Disposition: HOME SELF-CARE Condition: Good Instructions (If sedation given, give patient instructions): Abdominal Pain (ED) Additional Instructions: Follow up with Dr. Modi on Tuesday. Take your home pain medication for relief of symptoms. Return to the emergency department for any new, worsening, or concerning symptoms. Prescriptions: Nitrofurantoin Monohyd/M-Cryst [Macrobid] 100 mg PO Q12HR #14 cap Is patient prescribed a controlled substance at d/c from ED?: No Referrals: Scott Medrano MD [Primary Care Provider] - 1-2 days Palma Modi DO [Doctor of Osteopathic Medicine] - 1-2 days Time of Disposition: 00:14
[2019-08-10 23:44] LABS: Amorphous Sediment,Urine Rare /hpf; Appearance,Urine Cloudy (Clear); Basophils % (A) 0 %; Bilirubin,Urine Negative (Negative); Blood,Urine Negative (Negative); Color,Urine Yellow; Eosinophils # (A) 0.1 k/uL (0-0.7); Eosinophils % (A) 2 %; Glucose,Urine (UA) Negative (Negative); HCT 33.1 % (34.0-46.0); HGB 10.7 gm/dL (11.4-16.0); Hyaline Casts,Urine 1 /lpf (0-2); Ketones,Urine Negative (Negative); Leukocyte Esterase,Urine Large (Negative); Lymphocytes % (A) 26 %; MCHC 32.3 g/dL (31.0-37.0); MCV 83.5 fL (80.0-100.0); Mean Platelet Volume 8.5; Monocytes # (A) 0.2 k/uL (0-1.0); Monocytes % (A) 3 %; Mucus,Urine Rare /hpf; Neutrophils # (A) 5.2 k/uL (1.3-7.7); Neutrophils % (A) 67 %; Nitrite,Urine Negative (Negative); PH, Urine 6.5 (5.0-8.0); Platelet Count 249 k/uL (150-450); Protein,Urine Negative (Negative); RBC 3.97 m/uL (3.80-5.40); RBC,Urine 2 /hpf (0-5); RDW 15.6 % (11.5-15.5); Specific Gravity,Urine 1.022 (1.001-1.035); Squamous Epithelial Cell,Urine 1 /hpf (0-4); Urobilinogen,Urine <2.0 mg/dL (<2.0); WBC 7.8 k/uL (3.8-10.6); WBC,Urine 38 /hpf (0-5)
--- NOTE | 2019-08-10 23:52 | XR ---
EXAMINATION TYPE: XR KUB DATE OF EXAM: 08/10/2019 COMPARISON: 07/17/2019 HISTORY: Pain TECHNIQUE: Single supine KUB image of the abdomen is obtained FINDINGS: Small bowel demonstrates no evidence for dilatation or air fluid levels. Gas and fecal material is seen in non-distended colon. No convincing evidence for pneumoperitoneum. No unusual calcifications. The lung bases are clear. The osseous structures are intact. IMPRESSION: 1. Overall nonobstructive bowel gas pattern.
[2019-08-10 23:55] LABS: INR 0.9 (<1.2); Prothrombin Time 9.5 sec (9.0-12.0)
[2019-08-11] LABS: ALT 21 U/L (4-34); AST 29 U/L (14-36); African American GFR (CKD) >90 (>60 ml/min/1.73 sqM); Albumin 3.7 g/dL (3.5-5.0); Alkaline Phosphatase 253 U/L (38-126); Amylase 59 U/L (30-110); Anion Gap 7 mmol/L; Blood Urea Nitrogen 21 mg/dL (7-17); Calcium 9.3 mg/dL (8.4-10.2); Carbon Dioxide 22 mmol/L (22-30); Chloride 110 mmol/L (98-107); Glucose 120 mg/dL (74-99); Non-African American GFR(CKD) 87 (>60 ml/min/1.73 sqM); Potassium 3.7 mmol/L (3.5-5.1); Sodium 139 mmol/L (137-145); Total Bilirubin 0.1 mg/dL (0.2-1.3); Total Protein 6.8 g/dL (6.3-8.2)
[2019-08-11] MEDS ORDERED: NITROFURANTOIN MONOHYD/M-CRYST 100 MG CAP PO STA (00:04)
[2019-08-11] MEDS ORDERED: HYDROmorphone 0.5 MG/0.5 ML SYRINGE IVP STA (00:17)
== END 2019-08-11 00:31 | disposition home or self-care (01) ==
LOC: EC 22:51
DX: N39.0 Urinary tract infection, site not specified (principal); M79.7 Fibromyalgia; G40.909 Epilepsy, unspecified, not intractable, without status epilepticus; F41.9 Anxiety disorder, unspecified; G40.409 Other generalized epilepsy and epileptic syndromes, not intractable, without status epilepticus; R10.817 Generalized abdominal tenderness; Z79.899 Other long term (current) drug therapy; Z88.1 Allergy status to other antibiotic agents; Z91.041 Radiographic dye allergy status; Z88.6 Allergy status to analgesic agent; Z88.0 Allergy status to penicillin; Z88.8 Allergy status to other drugs, medicaments and biological substances; Z90.49 Acquired absence of other specified parts of digestive tract; Z85.038 Personal history of other malignant neoplasm of large intestine; Z86.14 Personal history of Methicillin resistant Staphylococcus aureus infection
CPT/HCPCS: 36415; 80053; 82150; 83605; 83690; 85025; 85610; 85730; 81001; 87086; 74018; 96374; 96375; 96376; 96361; 99284; J2405; J1170 ×2; 87077; 87186

== ENCOUNTER → 2019-09-04 | Outpatient (CLI) | payer OTHER ==
--- NOTE | 2019-09-04 10:07 | MR ---
EXAMINATION TYPE: MR liver wo/w con DATE OF EXAM: 09/04/2019 COMPARISON: CT scan 06/22/2019 HISTORY: CT showed abnormality in Liver. Colon Cancer history CONTRAST: Standard multiplanar, multisequence MRI departmental protocol utilizing 7.5 mL intravenous Gadavist g adolinium contrast. FINDINGS: A pulmonary nodule at the right lung base not as well-seen by MRI. Postcholecystectomy changes are seen. There is a 3.2 cm mass within the anterior right hepatic lobe. No additional lesions are seen. Heterogeneous enhancement of the liver related to transient hepatic c ongestion or hepatocellular disease correlate clinically. No additional enhancing lesions are seen. The heart is prominent in size. Pancreas, adrenal glands, spleen, and kidneys demonstrate no definite abnormality. Small left parapelvic renal cyst incidentally noted. Aorta of normal caliber. Visualize d bowel nonspecific. No adenopathy is visualized. IMPRESSION: 1. There is a 3.2 cm solid mass within the segment corresponding CT abnormality. Recommend PET scan. 2. Heterogeneous enhancement of the liver correlate with liver function studies.
== END | disposition home or self-care (01) ==
LOC: RADMRIMAIN 08:39
PROVIDERS: ATTEND Surgery
DX: R16.0 Hepatomegaly, not elsewhere classified (principal)
CPT/HCPCS: 74183; A9585

== ENCOUNTER 2019-09-17 16:03 | Emergency (ER) | payer OTHER ==
[2019-09-17 16:18] VITALS: PULSE 84; RESP 18; TEMP 98.1
[2019-09-17 18:03] LABS: Basophils % (A) 1 %; Eosinophils # (A) 0.2 k/uL (0-0.7); Eosinophils % (A) 2 %; HCT 33.8 % (34.0-46.0); HGB 10.6 gm/dL (11.4-16.0); Hypochromasia Slight; Lymphocytes % (A) 24 %; MCH 26.4 pg (25.0-35.0); MCHC 31.4 g/dL (31.0-37.0); MCV 83.9 fL (80.0-100.0); Mean Platelet Volume 7.7; Monocytes # (A) 0.3 k/uL (0-1.0); Monocytes % (A) 3 %; Neutrophils # (A) 5.7 k/uL (1.3-7.7); Neutrophils % (A) 69 %; Platelet Count 276 k/uL (150-450); RBC 4.03 m/uL (3.80-5.40); RDW 15.6 % (11.5-15.5); WBC 8.3 k/uL (3.8-10.6)
--- NOTE | 2019-09-17 18:04 | CT ---
EXAMINATION TYPE: CT brain wo con DATE OF EXAM: 09/17/2019 COMPARISON: Prior CT dated 04/20/2019 HISTORY: TRAN, MEMORY CHANGES CT DLP: 1066.4 mGycm Automated exposure control for dose reduction was used. Head CT performed using departmental protocol . FINDINGS: There is no interval change. There is no hemorrhage or hydrocephalus. Postop changes are noted to the right temporal bone. IMPRESSION: NO ACUTE ABNORMALITY.
--- NOTE | 2019-09-17 18:05 | XR ---
EXAMINATION TYPE: XR chest 2V DATE OF EXAM: 09/17/2019 COMPARISON: Prior chest x-ray 04/20/2019 HISTORY: Weakness and dizziness TECHNIQUE: Frontal and lateral views of the chest are obtained. FINDINGS: There is no focal air space opacity, pleural effusion, or pneumothorax seen. The cardiac silhouette size is stable. Loop recorder is present over the left chest. The osseous structures are intact. IMPRESSION: No acute cardiopulmonary process.
--- NOTE | 2019-09-17 18:30 | ED ---
General Adult HPI - General Chief complaint: Neuro Symptoms/Deficit Stated complaint: dizzy, lethargic Time Seen by Provider: 09/17/19 16:43 Source: patient, family Mode of arrival: wheelchair Limitations: no limitations - History of Present Illness Initial comments: 53-year-old female who known to our emergency department for multiple complaints present today for chief complaint of multiple complaints. Patient is very difficult to follow as she begins mixing chronic complaints with acute. Patient states that she has felt lightheaded when going from seated to standing position or bending over where she sees black dots in her vision. She denies syncope. The states she does have history of it in the past. Denies any falls or trauma to the head. She states she has been very tired and fatigued lately. 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 Patient denies any chest pain or shortness of breath patient states that she has had on and off headaches however this is normal for her as she has chronic migraines denies any sudden onset of headache worse headache of her life visual changes diplopia, nausea or vomiting. Denies neck pain or fevers. Patient denies weakness of the UE or LE specifically but states she feels all over weak. Denies dry skin or hair loss, brittle nails or cold/heat intolerance. Patient denies rectal bleeding or dark stools. Patietn states she has had abdominal pain for over a year and no one can seem to find out whats wrong, has GI appointment next week and was seen last month for same complaint. Denies new symptoms. Denies local ized abdominal pain or worsening pain. Patient states she has had diarrhea x 1 year as well. Patient state she also had had left ankle swelling x 1 month. Denies pain with deep inspiration, recent surgeries, immobilization, exogenous hormone use clotting disorders, or history of DVT/PE. Denies orthopnea, hemoptysis. Patient denies suicidal or homicidal ideation. - Related Data Home Medications Medication Instructions Recorded Confirmed RX: Brivaracetam [Briviact] 50 mg PO BID 08/01/16 07/17/19 RX: lamoTRIgine [LaMICtal] 200 mg PO BID 09/26/18 07/17/19 RX: Acetaminophen Tab [Tylenol] 1,000 mg PO Q6H PRN 10/05/18 07/17/19 RX: Topiramate 50 mg PO BID 12/19/18 07/17/19 RX: clonazePAM [KlonoPIN] 1.5 mg PO Q12H PRN 04/20/19 07/17/19 Cholecalciferol (Vitamin D3) 6,000 unit PO DAILY 07/17/19 07/17/19 [Vitamin D3] Nystatin 100,000Unit/gm Cream 1 applic TOPICAL TID 07/17/19 07/17/19 [Mycostatin Cream] QUEtiapine [SEROquel] 50 mg PO HS 07/17/19 07/17/19 Previous Rx's Medication Instructions Recorded Nitrofurantoin Monohyd/M-Cryst 100 mg PO Q12HR #14 cap 08/11/19 [Macrobid] Allergies Allergy/AdvReac Type Severity Reaction Status Date / Time erythromycin base Allergy Rash/Hives Verified 08/10/19 22:59 iodine Allergy Anaphylaxis Verified 08/10/19 22:59 ketorolac tromethamine Allergy Rash/Hives/ Verified 08/10/19 22:59 [From Toradol] hallucinati ons Penicillins Allergy Anaphylaxis Verified 08/10/19 22:59 azithromycin AdvReac red face Verified 08/10/19 22:59 butalbital [From Fioricet] AdvReac Unknown Verified 08/10/19 22:59 lorazepam [From Ativan] AdvReac Hallucinati Verified 08/10/19 22:59 ons Review of Systems ROS Statement: Those systems with pertinent positive or pertinent negative responses have been documented in the HPI. ROS Other: All systems not noted in ROS Statement are negative. 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, swelling of left lower leg, insomnia, hx hiatal hernia, hx colon cancer, diarrhea, hx psoriasis, Leaky heart valve, episodes of "passing out" History of Any Multi-Drug Resistant Organisms: MRSA Date of last positivie culture/infection: 08/10/19 MDRO Source:: URINE Past Surgical History: Appendectomy, Bowel Resection, Cholecystectomy, Ear Surgery, Hysterectomy, Orthopedic Surgery Additional Past Surgical History / Comment(s): frantz knee arthroscopy, hiatal hernia surgery, rt ear surgery to remove middle ear Past Anesthesia/Blood Transfusion Reactions: Postoperative Nausea & Vomiting (PONV) Past Psychological History: Anxiety, Panic Disorder Smoking Status: Never smoker Past Alcohol Use History: None Reported Past Drug Use History: None Reported - Past Family History Mother Family Medical History: No Reported History Additional Family Medical History / Comment(s): . General Exam - General Exam Comments Initial Comments: General: The patient is awake and alert, in no distress, and does not appear acutely ill. Eye: +3 mm pupils are equal, round and reactive to light, extra-ocular movements are intact. No nystagmus. There is normal conjunctiva bilaterally. No signs of icterus. Ears, nose, mouth and throat: There are moist mucous membranes and no oral lesions. Neck: The neck is supple, there is no tenderness or JVD. Cardiovascular: There is a regular rate and rhythm. No murmur, rub or gallop is appreciated. Respiratory: Lungs are clear to auscultation, respirations are non-labored, breath sounds are equal. No wheezes, stridor, rales, or rhonchi. Gastrointestinal: Soft, non-distended, non-tender abdomen without masses or organomegaly noted. There is no rebound or guarding present. Musculoskeletal: Normal ROM, no tenderness. Strength 5/5. Sensation intact. R adial pulses equal bilaterally 2+. Neurological: A&O x 3. CN II-XII intact,memory intact to immediately, intermediate and fpc recall. Able to follow simple verbal. Able to name a common object (pen). High quality, labial (pa) and lingual (la) speech. Low quality posterior pharynx/larynx (ga) voice sounds. Able to express general knowledge. No hemineglect or inattention noted. Finger agnosia (-) and spatially oriented. Light touch sensation present over the face, chest, abdomen, back, UE bilaterally, and LE bilaterally. Able to localize point during point localization b/l and extinction. No visible bulk atrophy, hypertrophy, fasciculations, or myoclonus of the UE or LE b/l. Full PROM in UE and LE b/l. Bilateral muscle strength 5/5 for the following muscles: deltoid, biceps, triceps, brachioradialis, wrist extensors/flexor, hip flexor, hip abductors/add uctors, hamstrings, quadriceps, feet dorsiflexors/plantar flexors. Finger to nose, finger to the examiners finger, and heel to heredia coordinated and accurate b/l. Coordinated movements. No tremor. Gait is coordinated and even in stride with tandem.(-) pronator drift. No nuchal rigidity. Skin: Skin is warm and dry and no rashes or lesions are noted. Mild swelling of the ankle b/l L> R. Psychiatric: Cooperative, appropriate mood & affect, normal judgment. Limitations: no limitations Course Vital Signs 09/17/19 09/17/19 16:16 18:50 Temperature 98.1 F Pulse Rate 84 Respiratory 18 Rate Blood Pressure 130/75 Blood Pressure 131/66 [Left Arm Sitting] Blood Pressure 124/67 [Left Arm Standing] Blood Pressure 118/60 [Left Arm Supine] O2 Sat by Pulse 100 Oximetry EKG Findings - EKG Comments: EKG Findings:: compared with attending to that of most recent visit. no significant change. Medical Decision Making - Medical Decision Making 53 year-old female presented for multiple complaints mostly fatigue and presyncope. Orthostatics negative. Patient states that she sometimes have his episodes when she stressed her son is getting . CT negative of the brain and chest x-ray clear no pulse deficits troponin negative BNP within normal limits. THE LEFT LEG NEGATIVE NO FOCAL NEUROLOGICAL DEFICITS.. Patient EKG no acute changes, denies CP or SOB. Patient given B12 shot. Patient TSH within acc eptable limits. No electrolyte derangements patient does not appear dehydrated. Patient case discussed and reviewed EKG with attending Dr. Aranda who is agreeable to discharge [facility] PCP f/u. Patient agreeable stating she is ready for discharge. - Lab Data Result diagrams: 09/17/19 17:36 09/17/19 17:36 Lab Results 09/17/19 09/17/19 09/17/19 Range/Units 17:36 17:36 17:36 WBC 8.3 (3.8-10.6) k/uL RBC 4.03 (3.80-5.40) m/uL Hgb 10.6 L (11.4-16.0) gm/dL Hct 33.8 L (34.0-46.0) % MCV 83.9 (80.0-100.0) fL MCH 26.4 (25.0-35.0) pg MCHC 31.4 (31.0-37.0) g/dL RDW 15.6 H (11.5-15.5) % Plt Count 276 (150-450) k/uL Neutrophils % 69 % Lymphocytes % 24 % Monocytes % 3 % Eosinophils % 2 % Basophils % 1 % Neutrophils # 5.7 (1.3-7.7) k/uL Lymphocytes # 2.0 (1.0-4.8) k/uL Monocytes # 0.3 (0-1.0) k/uL Eosinophils # 0.2 (0-0.7) k/uL Basophils # 0.0 (0-0.2) k/uL Hypochromasia Slight PT 9.5 (9.0-12.0) sec INR 0.9 (<1.2) APTT 21.5 L (22.0-30.0) sec Sodium 141 (137-145) mmol/L Potassium 4.3 (3.5-5.1) mmol/L Chloride 110 H (98-107) mmol/L Carbon Dioxide 24 (22-30) mmol/L Anion Gap 7 mmol/L BUN 21 H (7-17) mg/dL Creatinine 0.81 (0.52-1.04) mg/dL Est GFR (CKD-EPI)AfAm >90 (>60 ml/min/1.73 sqM) Est GFR (CKD-EPI)NonAf 84 (>60 ml/min/1.73 sqM) Glucose 88 (74-99) mg/dL Plasma Lactic Acid Williams (0.7-2.0) mmol/L Calcium 9.4 (8.4-10.2) mg/dL Magnesium 1.9 (1.6-2.3) mg/dL Total Bilirubin 0.2 (0.2-1.3) mg/dL AST 32 (14-36) U/L ALT 18 (4-34) U/L Alkaline Phosphatase 196 H (38-126) U/L Troponin I (0.000-0.034) ng/mL NT-Pro-B Natriuret Pep pg/mL Total Protein 7.2 (6.3-8.2) g/dL Albumin 4.0 (3.5-5.0) g/dL TSH 2.070 (0.465-4.680) mIU/L 09/17/19 09/17/19 09/17/19 Range/Units 17:36 17:36 17:36 WBC (3.8-10.6) k/uL RBC (3.80-5.40) m/uL Hgb (11.4-16.0) gm/dL Hct (34.0-46.0) % MCV (80.0-100.0) fL MCH (25.0-35.0) pg MCHC (31.0-37.0) g/dL RDW (11.5-15.5) % Plt Count (150-450) k/uL Neutrophils % % Lymphocytes % % Monocytes % % Eosinophils % % Basophils % % Neutrophils # (1.3-7.7) k/uL Lymphocytes # (1.0-4.8) k/uL Monocytes # (0-1.0) k/uL Eosinophils # (0-0.7) k/uL Basophils # (0-0.2) k/uL Hypochromasia PT (9.0-12.0) sec INR (<1.2) APTT (22.0-30.0) sec Sodium (137-145) mmol/L Potassium (3.5-5.1) mmol/L Chloride (98-107) mmol/L Carbon Dioxide (22-30) mmol/L Anion Gap mmol/L BUN (7-17) mg/dL Creatinine (0.52-1.04) mg/dL Est GFR (CKD-EPI)AfAm (>60 ml/min/1.73 sqM) Est GFR (CKD-EPI)NonAf (>60 ml/min/1.73 sqM) Glucose (74-99) mg/dL Plasma Lactic Acid Williams 2.0 (0.7-2.0) mmol/L Calcium (8.4-10.2) mg/dL Magnesium (1.6-2.3) mg/dL Total Bilirubin (0.2-1.3) mg/dL AST (14-36) U/L ALT (4-34) U/L Alkaline Phosphatase (38-126) U/L Troponin I <0.012 (0.000-0.034) ng/mL NT-Pro-B Natriuret Pep 103 pg/mL Total Protein (6.3-8.2) g/dL Albumin (3.5-5.0) g/dL TSH (0.465-4.680) mIU/L Disposition Clinical Impression: Fatigue, Lightheaded, Chronic anemia, Left leg swelling, Chronic abdominal pain, Chronic diarrhea, Hx of migraine headaches Disposition: HOME SELF-CARE Condition: Good Instructions (If sedation given, give patient instructions): Fatigue (ED), Weakness (ED) Additional Instructions: Please use medication as discussed. Please follow-up with family doctor in the next 2 days, follow -up with GI next week as scheduled for chronic abdominal pain. Please return to emergency room if the symptoms increase or worsen or for any other concerns. Is patient prescribed a controlled substance at d/c from ED?: No Referrals: Scott Medrano MD [Primary Care Provider] - 1-2 days Time of Disposition: 19:27
[2019-09-17 18:31] LABS: ALT 18 U/L (4-34); AST 32 U/L (14-36); African American GFR (CKD) >90 (>60 ml/min/1.73 sqM); Alkaline Phosphatase 196 U/L (38-126); Anion Gap 7 mmol/L; Blood Urea Nitrogen 21 mg/dL (7-17); Calcium 9.4 mg/dL (8.4-10.2); Carbon Dioxide 24 mmol/L (22-30); Chloride 110 mmol/L (98-107); Glucose 88 mg/dL (74-99); Magnesium 1.9 mg/dL (1.6-2.3); Non-African American GFR(CKD) 84 (>60 ml/min/1.73 sqM); Potassium 4.3 mmol/L (3.5-5.1); Sodium 141 mmol/L (137-145); Total Bilirubin 0.2 mg/dL (0.2-1.3); Total Protein 7.2 g/dL (6.3-8.2)
[2019-09-17 18:35] LABS: INR 0.9 (<1.2); Prothrombin Time 9.5 sec (9.0-12.0)
[2019-09-17 18:36] LABS: Partial Thromboplastin Time 21.5 sec (22.0-30.0)
--- NOTE | 2019-09-17 18:42 | US ---
EXAMINATION TYPE: US venous doppler duplex LE LT DATE OF EXAM: 09/17/2019 5:15 PM COMPARISON: NONE CLINICAL HISTORY: swelling x 1 month. SIDE PERFORMED: Left TECHNIQUE: The lower extremity deep venous system is examined utilizing real time linear array sonog fallon with graded compression, doppler sonography and color-flow sonography. VESSELS IMAGED: External Iliac Vein (EIV) Common Femoral Vein Deep Femoral Vein Greater Saphenous Vein * Femoral Vein Popliteal Vein Small Saphenous Vein * Proximal Calf Veins (* superficial vessels) There is normal flow, compressibility, vascular waveforms. Left Leg: Negative for DVT Additional color imaging performed as compression images are difficult to visualize. IMPRESSION: No evident deep venous thrombosis at or above the left knee, some limitations of the luis pheral femoral vein visualization, follow-up as indicated
[2019-09-17 18:51] VITALS: BP 118/60
[2019-09-17] MEDS ORDERED: CYANOCOBALAMIN 1,000 MCG/ML 1 ML VIAL IM STA (19:00)
== END 2019-09-17 19:42 | disposition home or self-care (01) ==
LOC: EC 16:03
DX: K52.9 Noninfective gastroenteritis and colitis, unspecified (principal); R42 Dizziness and giddiness; R53.83 Other fatigue; D64.9 Anemia, unspecified; M79.89 Other specified soft tissue disorders; G89.29 Other chronic pain; R10.9 Unspecified abdominal pain; F41.0 Panic disorder [episodic paroxysmal anxiety]; G40.409 Other generalized epilepsy and epileptic syndromes, not intractable, without status epilepticus; Z86.69 Personal history of other diseases of the nervous system and sense organs; Z79.899 Other long term (current) drug therapy; Z88.1 Allergy status to other antibiotic agents; Z91.048 Other nonmedicinal substance allergy status; Z88.5 Allergy status to narcotic agent; Z88.0 Allergy status to penicillin; Z88.8 Allergy status to other drugs, medicaments and biological substances; Z85.038 Personal history of other malignant neoplasm of large intestine; Z90.49 Acquired absence of other specified parts of digestive tract
CPT/HCPCS: 93005; 83880; 80053; 84443; 83605; 83735; 84484; 85025; 85610; 85730; 71046; 93971; 70450; 99284; 96372; J3420; 36415

== ENCOUNTER → 2019-10-02 | Outpatient (CLI) | payer OTHER ==
[2019-10-02 19:02] LABS: African American GFR (CKD) 84.6 (60.0-200.0); Albumin 4.2 g/dL (3.80-4.90); Albumin/Globulin Ratio 1.75 (1.60-3.17); Anion Gap 8.4 mmol/L (4.00-12.00); BUN/Creat Ratio 28.89 Ratio (12.00-20.00); C Reactive Protein 0.5 mg/dL (0.0-0.8); Calcium 9.5 mg/dL (8.7-10.3); Carbon Dioxide 23.6 mmol/L (21.6-31.8); Globulin 2.4 g/dL (1.6-3.3); Potassium 5.1 mmol/L (3.5-5.5); Total Bilirubin 0.2 mg/dL (0.3-1.2); Total Protein 6.6 g/dL (6.2-8.2)
[2019-10-02 19:50] LABS: Gliadin AB IgA, Deaminated NEGATIVE (NEGATIVE); Gliadin AB IgA, Unit 6.7 U/mL; Gliadin AB IgG, Deaminated NEGATIVE (NEGATIVE)
== END | disposition home or self-care (01) ==
LOC: LABWHC1 11:25
PROVIDERS: ATTEND Internal Medicine
DX: R19.4 Change in bowel habit (principal)
CPT/HCPCS: 36415; 80053; 83516; 84439; 84443; 85652; 86140

== ENCOUNTER 2019-10-15 23:54 | Emergency (ER) | payer OTHER ==
[2019-10-16 00:01] VITALS: BP 136/68; PULSE 73; RESP 18; TEMP 98.1
--- NOTE | 2019-10-16 00:36 | ED ---
Skin/Abscess/FB HPI - General Chief complaint: Skin/Abscess/Foreign Body Stated complaint: Lumps in armpit Time Seen by Provider: 10/16/19 00:35 Source: patient Mode of arrival: ambulatory Limitations: no limitations - History of Present Illness Initial comments: Never is a 53-year-old female who presents the ER today for reevaluation of a rash in her right axilla. Patient reports that the rash began earlier in the week as a red bubble she cannot see it very well. She was seen and evaluated at an outside hospital where they attempted to open it but reports there was no drainage. The discharge her home on oral antibiotics. Despite being compliant with those the rash is worsened she's noted Blisters in her armpit. None of them are draining. She is applied heat pack with no relief. She is taking her home pain medications with no relief. She has no history of any rash like this in the past. She does have a history of MRSA. - Related Data Home Medications Medication Instructions Recorded Confirmed Brivaracetam [Briviact] 50 mg PO BID 08/01/16 07/17/19 lamoTRIgine [LaMICtal] 200 mg PO BID 09/26/18 07/17/19 Acetaminophen Tab [Tylenol] 1,000 mg PO Q6H PRN 10/05/18 07/17/19 Topiramate 50 mg PO BID 12/19/18 07/17/19 clonazePAM [KlonoPIN] 1.5 mg PO Q12H PRN 04/20/19 07/17/19 Cholecalciferol (Vitamin D3) 6,000 unit PO DAILY 07/17/19 07/17/19 [Vitamin D3] Nystatin 100,000Unit/gm Cream 1 applic TOPICAL TID 07/17/19 07/17/19 [Mycostatin Cream] QUEtiapine [SEROquel] 50 mg PO HS 07/17/19 07/17/19 Previous Rx's Medication Instructions Recorded Nitrofurantoin Monohyd/M-Cryst 100 mg PO Q12HR #14 cap 08/11/19 [Macrobid] predniSONE [Deltasone] 40 mg PO DAILY 5 Days #10 tab 10/16/19 valACYclovir HCL [Valtrex] 1,000 mg PO Q8HR #21 tab 10/16/19 Allergies Allergy/AdvReac Type Severity Reaction Status Date / Time erythromycin base Allergy Rash/Hives Verified 10/16/19 00:03 iodine Allergy Anaphylaxis Verified 10/16/19 00:03 ketorolac tromethamine Allergy Rash/Hives/ Verified 10/16/19 00:03 [From Toradol] hallucinati ons Penicillins Allergy Anaphylaxis Verified 10/16/19 00:03 azithromycin AdvReac red face Verified 10/16/19 00:03 lorazepam [From Ativan] AdvReac Hallucinati Verified 10/16/19 00:03 ons Review of Systems ROS Statement: Those systems with pertinent positive or pertinent negative responses have been documented in the HPI. ROS Other: All systems not noted in ROS Statement are negative. 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, swelling of left lower leg, insomnia, hx hiatal hernia, hx colon cancer, diarrhea, hx psoriasis, Leaky heart valve, episodes of "passing out" History of Any Multi-Drug Resistant Organisms: MRSA Date of last positivie culture/infection: 08/10/19 MDRO Source:: URINE Past Surgical History: Appendectomy, Bowel Resection, Cholecystectomy, Ear Surgery, Hysterectomy, Orthopedic Surgery Additional Past Surgical History / Comment(s): frantz knee arthroscopy, hiatal hernia surgery, rt ear surgery to remove middle ear Past Anesthesia/Blood Transfusion Reactions: Postoperative Nausea & Vomiting (PONV) Past Psychological History: Anxiety, Panic Disorder Smoking Status: Never smoker Past Alcohol Use History: Occasional Past Drug Use History: None Reported - Past Family History Mother Family Medical History: No Reported History Additional Family Medical History / Comment(s): . General Exam - General Exam Comments Initial Comments: Physical Exam GENERAL: Patient is well-developed and well-nourished. Patient is nontoxic and well-hydrated and is in no distress. HENT: Normocephalic, Atraumatic. EYES: PERRL, EOMI PULMONARY: Unlabored respirations. CARDIOVASCULAR: RRR Warm and well perfused extremities ABDOMEN: Non-distended SKIN: Vesicular rash in the right axilla One vesicle was unroofed and there is no purulent drainage, no underlying palpable fluctuance or abscess, no surrounding induration or cellulitis : Deferred NEUROLOGIC: Alert and oriented Normal speech Normal gait MUSCULOSKELETAL: Moving all extremities with no apparent injury PSYCHIATRIC: No SI/HI Limitations: no limitations Course Vital Signs 10/15/19 23:57 Temperature 98.1 F Pulse Rate 73 Respiratory 18 Rate Blood Pressure 136/68 O2 Sat by Pulse 100 Oximetry Medical Decision Making - Medical Decision Making The patient was seen and evaluated history is obtained from the patient Patient was seen and evaluated for possible abscess she reports that they attempted to drain it with no drainage noted the rash has worsened, on my exam there appeared to be clear vesicles in multiple stages of healing, I discussed with the patient that I have a high suspicion for shingles given that this looks to be a blistering rash. Patient insisted that I attempt to I&D one vesicle. I unroofed the vesicle with a needle scant amount of clear fluid drained there is no purulence noted. This was discussed with the patient, again I reiterated to her that based on physical exam I suspect this is shingles. She does have a history of chickenpox as a child. She's not had shingles vaccine. Patient is not diabetic, will be discharged on steroids and Valtrex, advised to follow up with PCP Advised she is contagious, avoid elderly, chemotherapy patients and babies or unvaccinated children Disposition Clinical Impression: Shingles outbreak Disposition: HOME SELF-CARE Condition: Stable Instructions (If sedation given, give patient instructions): Shingles (ED) Prescriptions: predniSONE [Deltasone] 40 mg PO DAILY 5 Days #10 tab valACYclovir HCL [Valtrex] 1,000 mg PO Q8HR #21 tab Is patient prescribed a controlled substance at d/c from ED?: No Referrals: Scott Medrano MD [Primary Care Provider] - 1-2 days
[2019-10-16] MEDS ORDERED: ACET/COD 300 MG/30 MG STARTER PACK 6 TAB BTL PO STA (01:03)
[2019-10-16] MEDS ORDERED: valACYclovir 500 MG TAB PO STA (01:03)
== END 2019-10-16 01:24 | disposition home or self-care (01) ==
LOC: EC 23:54
DX: B02.9 Zoster without complications (principal); G40.409 Other generalized epilepsy and epileptic syndromes, not intractable, without status epilepticus; F41.0 Panic disorder [episodic paroxysmal anxiety]; Z79.899 Other long term (current) drug therapy; Z88.0 Allergy status to penicillin; Z88.1 Allergy status to other antibiotic agents; Z88.5 Allergy status to narcotic agent; Z88.8 Allergy status to other drugs, medicaments and biological substances; Z91.048 Other nonmedicinal substance allergy status; Z85.038 Personal history of other malignant neoplasm of large intestine; Z86.14 Personal history of Methicillin resistant Staphylococcus aureus infection
CPT/HCPCS: 10160; 99283

== ENCOUNTER 2019-10-31 10:26 | Emergency (ER) | payer OTHER ==
[2019-10-31 10:35] VITALS: RESP 18; TEMP 98.2
[2019-10-31] MEDS ORDERED: ACET/COD 300 MG/30 MG STARTER PACK 6 TAB BTL PO STA (11:24)
--- NOTE | 2019-10-31 11:26 | ED ---
General Adult HPI - General Chief complaint: Skin/Abscess/Foreign Body Stated complaint: bumps under armpit Time Seen by Provider: 10/31/19 10:37 Source: patient Mode of arrival: ambulatory Limitations: no limitations - History of Present Illness Initial comments: 53-year-old female presents to the emergency department for a chief complaint of right axilla pain 3 months. Patient states she has had bumps under her right axilla for 3 months now. States she was seen in the ER twice and once given an antibiotic and once treated for shingles. States that bumps have continued to get larger. Patient reports that the pain has been increasing. Patient presents today to have these removed. Patient reports that she has not followed up with her primary care doctor or any other specialist outside of the emergency room. Patient denies fevers or chills.Patient has no other complaints at this time including shortness of breath, chest pain, abdominal pain, nausea or vomiting, headache, or visual changes. - Related Data Home Medications Medication Instructions Recorded Confirmed Brivaracetam [Briviact] 50 mg PO BID 08/01/16 07/17/19 lamoTRIgine [LaMICtal] 200 mg PO BID 09/26/18 07/17/19 Acetaminophen Tab [Tylenol] 1,000 mg PO Q6H PRN 10/05/18 07/17/19 Topiramate 50 mg PO BID 12/19/18 07/17/19 clonazePAM [KlonoPIN] 1.5 mg PO Q12H PRN 04/20/19 07/17/19 Cholecalciferol (Vitamin D3) 6,000 unit PO DAILY 07/17/19 07/17/19 [Vitamin D3] Nystatin 100,000Unit/gm Cream 1 applic TOPICAL TID 07/17/19 07/17/19 [Mycostatin Cream] QUEtiapine [SEROquel] 50 mg PO HS 07/17/19 07/17/19 Previous Rx's Medication Instructions Recorded Nitrofurantoin Monohyd/M-Cryst 100 mg PO Q12HR #14 cap 08/11/19 [Macrobid] predniSONE [Deltasone] 40 mg PO DAILY 5 Days #10 tab 10/16/19 valACYclovir HCL [Valtrex] 1,000 mg PO Q8HR #21 tab 07/14/20 Clindamycin [Cleocin] 450 mg PO Q8H 7 Days #63 cap 10/31/19 Allergies Allergy/AdvReac Type Severity Reaction Status Date / Time erythromycin base Allergy Rash/Hives Verified 10/31/19 10:35 iodine Allergy Anaphylaxis Verified 10/31/19 10:35 ketorolac tromethamine Allergy Rash/Hives/ Verified 10/31/19 10:35 [From Toradol] hallucinati ons Penicillins Allergy Anaphylaxis Verified 10/31/19 10:35 azithromycin AdvReac red face Verified 10/31/19 10:35 lorazepam [From Ativan] AdvReac Hallucinati Verified 10/31/19 10:35 ons Review of Systems ROS Statement: Those systems with pertinent positive or pertinent negative responses have been documented in the HPI. ROS Other: All systems not noted in ROS Statement are negative. 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, swelling of left lower leg, insomnia, hx hiatal hernia, hx colon cancer, diarrhea, hx psoriasis, Leaky heart valve, episodes of "passing out" History of Any Multi-Drug Resistant Organisms: MRSA Date of last positivie culture/infection: 08/10/19 MDRO Source:: URINE Past Surgical History: Appendectomy, Bowel Resection, Cholecystectomy, Ear Surgery, Hysterectomy, Orthopedic Surgery Additional Past Surgical History / Comment(s): frantz knee arthroscopy, hiatal hernia surgery, rt ear surgery to remove middle ear Past Anesthesia/Blood Transfusion Reactions: Postoperative Nausea & Vomiting (PONV) Past Psychological History: Anxiety, Panic Disorder Smoking Status: Never smoker Past Alcohol Use History: Occasional Past Drug Use History: None Reported - Past Family History Mother Family Medical History: No Reported History Additional Family Medical History / Comment(s): . General Exam Limitations: no limitations General appearance: alert, in no apparent distress Head exam: Present: atraumatic, normocephalic, normal inspection Eye exam: Present: normal appearance, PERRL, EOMI. Absent: scleral icterus, conjunctival injection, periorbital swelling ENT exam: Present: normal exam, mucous membranes moist Neck exam: Present: normal inspection, full ROM. Absent: tenderness, meningismus, lymphadenopathy Respiratory exam: Present: normal lung sounds bilaterally. Absent: respiratory distress, wheezes, rales, rhonchi, stridor Cardiovascular Exam: Present: regular rate, normal rhythm, normal heart sounds. Absent: systolic murmur, diastolic murmur, rubs, gallop, clicks GI/Abdominal exam: Present: soft, normal bowel sounds. Absent: distended, tenderness, guarding, rebound, rigid Extremities exam: Present: normal capillary refill (Capillary refill less than 2 seconds, radial pulse 2+.), other (Patient has multple areas of induration noted to the right axilla. This is not erythematous. There is no area of fluctuance. There is no superficial area for drainage.) Course Vital Signs 10/31/19 10:31 Temperature 98.2 F Pulse Rate 80 Respiratory 18 Rate Blood Pressure 138/63 O2 Sat by Pulse 97 Oximetry Medical Decision Making - Medical Decision Making HPI physical exam is documented. There are multiple areas of induration of the right axilla. There is no area of fluctuance. These have been there for 3 months. Patient is adamantly requesting that I incise and drain these however there is no fluctuance. Patient has had them drained in the past and there is no purulent material expelled. These do not appear like simple abscesses and I do not feel comfortable incising them at this time. I discussed this with Dr. Herrera and he is in agreement that as these are not superficial or fluctuant incision and drainage is not recommended. She needs to follow up with surgery as I have a suspicion for hidradenitis. Patient will be started on clindamycin to cover for this. She will be given Tylenol 3 for pain. She will return here for any worsening symptoms. Disposition Clinical Impression: Axillary pain Narrative: Possible hidradenitis suppurativa Disposition: HOME SELF-CARE Condition: Good Instructions (If sedation given, give patient instructions): Hidradenitis Suppurativa (ED) Additional Instructions: Please take antibiotic as directed. This was prescribed to [facility]. Follow- up with general surgery by calling for an appointment. If you have any worsening symptoms return here to the emergency room. Prescriptions: Clindamycin [Cleocin] 450 mg PO Q8H 7 Days #63 cap Is patient prescribed a controlled substance at d/c from ED?: No Referrals: Scott Medrano MD [Primary Care Provider] - 1-2 days Mayra Harrington MD [STAFF PHYSICIAN] - 1-2 days Augustin Adam MD [Medical Doctor] - 1-2 days Patrice Ya MD [STAFF PHYSICIAN] - 1-2 days Time of Disposition: 11:23
[2019-10-31 11:48] VITALS: BP 138/73; PULSE 74
== END 2019-10-31 11:42 | disposition home or self-care (01) ==
LOC: EC 10:26
DX: M79.621 Pain in right upper arm (principal); R23.4 Changes in skin texture; R22.31 Localized swelling, mass and lump, right upper limb; F41.9 Anxiety disorder, unspecified; F41.0 Panic disorder [episodic paroxysmal anxiety]; G40.909 Epilepsy, unspecified, not intractable, without status epilepticus; G43.909 Migraine, unspecified, not intractable, without status migrainosus; Z79.899 Other long term (current) drug therapy; Z88.0 Allergy status to penicillin; Z88.1 Allergy status to other antibiotic agents; Z88.6 Allergy status to analgesic agent; Z91.041 Radiographic dye allergy status; Z86.14 Personal history of Methicillin resistant Staphylococcus aureus infection; Z85.038 Personal history of other malignant neoplasm of large intestine
CPT/HCPCS: 99283

== ENCOUNTER 2019-11-28 22:40 | Emergency (ER) | payer OTHER ==
[2019-11-28] MEDS ORDERED: SODIUM CHLORIDE 0.9% 500 ML 500 ML IV STA (22:48)
[2019-11-28 22:55] VITALS: PULSE 65
[2019-11-28 23:27] LABS: Basophils % (A) 0 %; Eosinophils # (A) 0.2 k/uL (0-0.7); Eosinophils % (A) 2 %; HCT 28.7 % (34.0-46.0); Hypochromasia Moderate; Lymphocytes # (A) 2.1 k/uL (1.0-4.8); Lymphocytes % (A) 22 %; MCH 25.2 pg (25.0-35.0); MCHC 31.3 g/dL (31.0-37.0); MCV 80.5 fL (80.0-100.0); Mean Platelet Volume 7.6; Monocytes # (A) 0.4 k/uL (0-1.0); Monocytes % (A) 4 %; Neutrophils # (A) 6.8 k/uL (1.3-7.7); Neutrophils % (A) 70 %; Platelet Count 277 k/uL (150-450); RBC 3.56 m/uL (3.80-5.40); RDW 15.5 % (11.5-15.5); WBC 9.6 k/uL (3.8-10.6)
--- NOTE | 2019-11-28 23:32 | XR ---
EXAMINATION TYPE: XR chest 2V DATE OF EXAM: 11/28/2019 COMPARISON: 09/17/2019 HISTORY: Weakness TECHNIQUE: FINDINGS: Heart and mediastinum are normal. Lungs are clear. Diaphragm is normal. Bony thorax appears normal. IMPRESSION: Normal chest. No change.
[2019-11-28 23:38] LABS: ALT 17 U/L (4-34); AST 24 U/L (14-36); African American GFR (CKD) >90 (>60 ml/min/1.73 sqM); Albumin 3.5 g/dL (3.5-5.0); Alkaline Phosphatase 167 U/L (38-126); Anion Gap 5 mmol/L; Blood Urea Nitrogen 26 mg/dL (7-17); Calcium 8.9 mg/dL (8.4-10.2); Carbon Dioxide 22 mmol/L (22-30); Chloride 112 mmol/L (98-107); Glucose 107 mg/dL (74-99); Magnesium 2.1 mg/dL (1.6-2.3); Non-African American GFR(CKD) 87 (>60 ml/min/1.73 sqM); Potassium 3.9 mmol/L (3.5-5.1); Sodium 139 mmol/L (137-145); Total Bilirubin 0.2 mg/dL (0.2-1.3); Total Protein 6.1 g/dL (6.3-8.2)
[2019-11-28 23:42] LABS: INR 0.9 (<1.2); Prothrombin Time 9.5 sec (9.0-12.0)
[2019-11-28 23:50] LABS: Partial Thromboplastin Time 21.8 sec (22.0-30.0)
[2019-11-29 00:22] LABS: Appearance,Urine Clear (Clear); Bilirubin,Urine Negative (Negative); Blood,Urine Negative (Negative); Color,Urine Light Yellow; Glucose,Urine (UA) Negative (Negative); Ketones,Urine Negative (Negative); Leukocyte Esterase,Urine Large (Negative); Mucus,Urine Rare /hpf; Nitrite,Urine Negative (Negative); Protein,Urine Negative (Negative); RBC,Urine 1 /hpf (0-5); Specific Gravity,Urine 1.018 (1.001-1.035); Squamous Epithelial Cell,Urine <1 /hpf (0-4); Urobilinogen,Urine <2.0 mg/dL (<2.0); WBC,Urine 3 /hpf (0-5)
--- NOTE | 2019-11-29 00:26 | ED ---
Weakness HPI - General Chief complaint: Weakness Stated complaint: weakness Time Seen by Provider: 11/28/19 22:48 Source: patient, EMS Mode of arrival: EMS Limitations: no limitations - History of Present Illness Initial comments: 53-year-old female presenting today for chief complaint of anemia. Patient states that she was told her I was very low and she would need infusions and to see Dr. Acosta. She was told to follow-up outpatient patient states she is feeling very fatigued tonight and thus presents to the emergency department she denies any black stools bloody stools she denies any diarrhea she denies chest pain shortness of breath headache dizziness. Patient denies any presyncope or syncopal episodes. Patient states she is not sure if she needed transfusion and BuSpar she presented to the ER. Patient denies additional complaints upon arrival she appears nontoxic in no acute distress vital signs are stable. No additional complaints - Related Data Home Medications Medication Instructions Recorded Confirmed Brivaracetam [Briviact] 50 mg PO BID 08/01/16 07/17/19 lamoTRIgine [LaMICtal] 200 mg PO BID 09/26/18 07/17/19 Acetaminophen Tab [Tylenol] 1,000 mg PO Q6H PRN 10/05/18 07/17/19 Topiramate 50 mg PO BID 12/19/18 07/17/19 clonazePAM [KlonoPIN] 1.5 mg PO Q12H PRN 04/20/19 07/17/19 Cholecalciferol (Vitamin D3) 6,000 unit PO DAILY 07/17/19 07/17/19 [Vitamin D3] Nystatin 100,000Unit/gm Cream 1 applic TOPICAL TID 07/17/19 07/17/19 [Mycostatin Cream] QUEtiapine [SEROquel] 50 mg PO HS 07/17/19 07/17/19 Previous Rx's Medication Instructions Recorded Nitrofurantoin Monohyd/M-Cryst 100 mg PO Q12HR #14 cap 08/11/19 [Macrobid] predniSONE [Deltasone] 40 mg PO DAILY 5 Days #10 tab 10/16/19 valACYclovir HCL [Valtrex] 1,000 mg PO Q8HR #21 tab 10/16/19 Clindamycin [Cleocin] 450 mg PO Q8H 7 Days #63 cap 10/31/19 Allergies Allergy/AdvReac Type Severity Reaction Status Date / Time erythromycin base Allergy Rash/Hives Verified 11/28/19 22:55 iodine Allergy Anaphylaxis Verified 11/28/19 22:55 ketorolac tromethamine Allergy Rash/Hives/ Verified 11/28/19 22:55 [From Toradol] hallucinati ons Penicillins Allergy Anaphylaxis Verified 11/28/19 22:55 azithromycin AdvReac red face Verified 11/28/19 22:55 lorazepam [From Ativan] AdvReac Hallucinati Verified 11/28/19 22:55 ons Review of Systems ROS Statement: Those systems with pertinent positive or pertinent negative responses have been documented in the HPI. ROS Other: All systems not noted in ROS Statement are negative. 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, swelling of left lower leg, insomnia, hx hiatal hernia, hx colon cancer, diarrhea, hx psoriasis, Leaky heart valve, episodes of "passing out" History of Any Multi-Drug Resistant Organisms: MRSA Date of last positivie culture/infection: 08/10/19 MDRO Source:: URINE Past Surgical History: Appendectomy, Bowel Resection, Cholecystectomy, Ear Surgery, Hysterectomy, Orthopedic Surgery Additional Past Surgical History / Comment(s): frantz knee arthroscopy, hiatal hernia surgery, rt ear surgery to remove middle ear, lymph node biopsy right armpit Past Anesthesia/Blood Transfusion Reactions: Postoperative Nausea & Vomiting (PONV) Past Psychological History: Anxiety, Panic Disorder Smoking Status: Never smoker Past Alcohol Use History: Occasional Past Drug Use History: None Reported - Past Family History Mother Family Medical History: No Reported History Additional Family Medical History / Comment(s): . General Exam - General Exam Comments Initial Comments: General: The patient is awake and alert, in no distress, and does not appear acutely ill. Eye: +3 mm pupils are equal, round and reactive to light, extra-ocular movements are intact. No nystagmus. There is normal conjunctiva bilaterally. No signs of icterus. Ears, nose, mouth and throat: There are moist mucous membranes and no oral lesions. Neck: The neck is supple, there is no tenderness or JVD. Cardiovascular: There is a regular rate and rhythm. No murmur, rub or gallop is appreciated. Respiratory: Lungs are clear to auscultation, respirations are non-labored, breath sounds are equal. No wheezes, stridor, rales, or rhonchi. Gastrointestinal: Soft, non-distended, non-tender abdomen without masses or organomegaly noted. There is no rebound or guarding present. Musculoskeletal: Normal ROM, no tenderness. Strength 5/5. Sensation intact. Pulses equal bilaterally 2+. Neurological: A&O x 3. CN II-XII intact grossly, There are no obvious motor or sensory deficits. Coordination appears grossly intact. Speech is normal. Skin: Skin is warm and dry and no rashes or lesions are noted. No LE edema. Psychiatric: Cooperative, appropriate mood & affect, normal judgment. Limitations: no limitations Course Vital Signs 11/28/19 11/29/19 22:50 00:40 Temperature 98.0 F 97.8 F Pulse Rate 65 65 Respiratory 16 17 Rate Blood Pressure 145/67 144/65 O2 Sat by Pulse 100 98 Oximetry Medical Decision Making - Medical Decision Making Hgb 9. Hx of chronic anemia. Iron deficiency present on labs. Patient hs no localizing complaints. No focla neurological defitics. ambulates without difficulty VS stable. No UTI. Patient EKG similar to that of previous, denies CP/SOB. Patient case discussed with Dr. Haley who reviewed EKG he is agreeable to otupatient f/u with pcp for repeat labs in two days and as PCP recommended hematology/oncology f/u with Dr. acosta. patient agreeable to discharge and outpatient f/u. Discharged appearing well aware of importance of return parameters discussed. - Lab Data Result diagrams: 11/28/19 23:16 11/28/19 23:16 Lab Results 11/28/19 11/28/19 11/28/19 Range/Units 23:16 23:16 23:16 WBC 9.6 (3.8-10.6) k/uL RBC 3.56 L (3.80-5.40) m/uL Hgb 9.0 L (11.4-16.0) gm/dL Hct 28.7 L (34.0-46.0) % MCV 80.5 (80.0-100.0) fL MCH 25.2 (25.0-35.0) pg MCHC 31.3 (31.0-37.0) g/dL RDW 15.5 (11.5-15.5) % Plt Count 277 (150-450) k/uL Neutrophils % 70 % Lymphocytes % 22 % Monocytes % 4 % Eosinophils % 2 % Basophils % 0 % Neutrophils # 6.8 (1.3-7.7) k/uL Lymphocytes # 2.1 (1.0-4.8) k/uL Monocytes # 0.4 (0-1.0) k/uL Eosinophils # 0.2 (0-0.7) k/uL Basophils # 0.0 (0-0.2) k/uL Hypochromasia Moderate PT 9.5 (9.0-12.0) sec INR 0.9 (<1.2) APTT 21.8 L (22.0-30.0) sec Sodium (137-145) mmol/L Potassium (3.5-5.1) mmol/L Chloride (98-107) mmol/L Carbon Dioxide (22-30) mmol/L Anion Gap mmol/L BUN (7-17) mg/dL Creatinine (0.52-1.04) mg/dL Est GFR (CKD-EPI)AfAm (>60 ml/min/1.73 sqM) Est GFR (CKD-EPI)NonAf (>60 ml/min/1.73 sqM) Glucose (74-99) mg/dL Plasma Lactic Acid Williams (0.7-2.0) mmol/L Calcium (8.4-10.2) mg/dL Magnesium (1.6-2.3) mg/dL Total Bilirubin (0.2-1.3) mg/dL AST (14-36) U/L ALT (4-34) U/L Alkaline Phosphatase (38-126) U/L Troponin I (0.000-0.034) ng/mL Total Protein (6.3-8.2) g/dL Albumin (3.5-5.0) g/dL Urine Color Light Yellow Urine Appearance Clear (Clear) Urine pH 7.0 (5.0-8.0) Ur Specific Pana 1.018 (1.001-1.035) Urine Protein Negative (Negative) Urine Glucose (UA) Negative (Negative) Urine Ketones Negative (Negative) Urine Blood Negative (Negative) Urine Nitrite Negative (Negative) Urine Bilirubin Negative (Negative) Urine Urobilinogen <2.0 (<2.0) mg/dL Ur Leukocyte Esterase Large H (Negative) Urine RBC 1 (0-5) /hpf Urine WBC 3 (0-5) /hpf Ur Squamous Epith Cells <1 (0-4) /hpf Urine Mucus Rare H (None) /hpf 11/28/19 11/28/19 11/28/19 Range/Units 23:16 23:16 23:16 WBC (3.8-10.6) k/uL RBC (3.80-5.40) m/uL Hgb (11.4-16.0) gm/dL Hct (34.0-46.0) % MCV (80.0-100.0) fL MCH (25.0-35.0) pg MCHC (31.0-37.0) g/dL RDW (11.5-15.5) % Plt Count (150-450) k/uL Neutrophils % % Lymphocytes % % Monocytes % % Eosinophils % % Basophils % % Neutrophils # (1.3-7.7) k/uL Lymphocytes # (1.0-4.8) k/uL Monocytes # (0-1.0) k/uL Eosinophils # (0-0.7) k/uL Basophils # (0-0.2) k/uL Hypochromasia PT (9.0-12.0) sec INR (<1.2) APTT (22.0-30.0) sec Sodium 139 (137-145) mmol/L Potassium 3.9 (3.5-5.1) mmol/L Chloride 112 H (98-107) mmol/L Carbon Dioxide 22 (22-30) mmol/L Anion Gap 5 mmol/L BUN 26 H (7-17) mg/dL Creatinine 0.78 (0.52-1.04) mg/dL Est GFR (CKD-EPI)AfAm >90 (>60 ml/min/1.73 sqM) Est GFR (CKD-EPI)NonAf 87 (>60 ml/min/1.73 sqM) Glucose 107 H (74-99) mg/dL Plasma Lactic Acid Williams 0.9 (0.7-2.0) mmol/L Calcium 8.9 (8.4-10.2) mg/dL Magnesium 2.1 (1.6-2.3) mg/dL Total Bilirubin 0.2 (0.2-1.3) mg/dL AST 24 (14-36) U/L ALT 17 (4-34) U/L Alkaline Phosphatase 167 H (38-126) U/L Troponin I <0.012 (0.000-0.034) ng/mL Total Protein 6.1 L (6.3-8.2) g/dL Albumin 3.5 (3.5-5.0) g/dL Urine Color Urine Appearance (Clear) Urine pH (5.0-8.0) Ur Specific Pana (1.001-1.035) Urine Protein (Negative) Urine Glucose (UA) (Negative) Urine Ketones (Negative) Urine Blood (Negative) Urine Nitrite (Negative) Urine Bilirubin (Negative) Urine Urobilinogen (<2.0) mg/dL Ur Leukocyte Esterase (Negative) Urine RBC (0-5) /hpf Urine WBC (0-5) /hpf Ur Squamous Epith Cells (0-4) /hpf Urine Mucus (None) /hpf Disposition Clinical Impression: Fatigue, Iron deficiency anemia Disposition: HOME SELF-CARE Condition: Good Instructions (If sedation given, give patient instructions): Iron Deficiency Anemia (ED) Additional Instructions: Please use medication as discussed. Please follow-up with family doctor in the next 24 hours, please call Dr. Acosta as recommended by primary care provider. Please return to emergency room if the symptoms increase or worsen or for any ot her concerns. Is patient prescribed a controlled substance at d/c from ED?: No Referrals: Scott Medrano MD [Primary Care Provider] - 1-2 days Heath Acosta MD [STAFF PHYSICIAN] - 1-2 days Time of Disposition: 00:27
[2019-11-29 00:50] VITALS: BP 144/65; RESP 17; TEMP 97.8
== END 2019-11-29 00:50 | disposition home or self-care (01) ==
LOC: EC 22:40
DX: D50.9 Iron deficiency anemia, unspecified (principal); R53.83 Other fatigue; G40.909 Epilepsy, unspecified, not intractable, without status epilepticus; F41.0 Panic disorder [episodic paroxysmal anxiety]; Z79.899 Other long term (current) drug therapy; Z88.1 Allergy status to other antibiotic agents; Z91.048 Other nonmedicinal substance allergy status; Z88.5 Allergy status to narcotic agent; Z88.0 Allergy status to penicillin; Z88.8 Allergy status to other drugs, medicaments and biological substances; Z85.038 Personal history of other malignant neoplasm of large intestine
CPT/HCPCS: 36415; 71046; 80053; 81001; 83605; 83735; 84484; 85025; 85610; 85730; 93005; 96360; 96361; 99285

== ENCOUNTER → 2019-11-28 | Outpatient (CLI) | payer OTHER ==
[2019-11-28 15:30] LABS: Basophils # (A) 0.1 k/uL (0-0.2); Basophils % (A) 1 %; Eosinophils # (A) 0.2 k/uL (0-0.7); Eosinophils % (A) 3 %; HCT 31.5 % (34.0-46.0); HGB 9.5 gm/dL (11.4-16.0); Hypochromasia Marked; Lymphocytes # (A) 1.8 k/uL (1.0-4.8); Lymphocytes % (A) 24 %; MCH 25.1 pg (25.0-35.0); MCHC 30.2 g/dL (31.0-37.0); MCV 83.3 fL (80.0-100.0); Mean Platelet Volume 7.8; Monocytes # (A) 0.3 k/uL (0-1.0); Monocytes % (A) 4 %; Neutrophils # (A) 4.9 k/uL (1.3-7.7); Neutrophils % (A) 66 %; Platelet Count 310 k/uL (150-450); RBC 3.78 m/uL (3.80-5.40); RDW 15.5 % (11.5-15.5); WBC 7.4 k/uL (3.8-10.6)
[2019-11-28 18:41] LABS: T4, Free (Free Thyroxine) 0.9 ng/dL (0.80-1.80)
[2019-11-28 18:59] LABS: % Iron Saturation 4.07 (12.00-45.00); African American GFR (CKD) 97.6 (60.0-200.0); Albumin 4.1 g/dL (3.80-4.90); Albumin/Globulin Ratio 1.86 (1.60-3.17); Anion Gap 6.7 mmol/L (4.00-12.00); BUN/Creat Ratio 36.25 Ratio (12.00-20.00); Calcium 9.1 mg/dL (8.7-10.3); Carbon Dioxide 26.3 mmol/L (21.6-31.8); Ferritin 2.5 ng/mL (10.0-291.0); Folate, Serum 16.5 ng/mL; Globulin 2.2 g/dL (1.6-3.3); Non-African American GFR(CKD) 84.2 (60.0-200.0); Potassium 4.1 mmol/L (3.5-5.5); Total Bilirubin 0.2 mg/dL (0.3-1.2); Total Protein 6.3 g/dL (6.2-8.2)
== END | disposition home or self-care (01) ==
LOC: LABWHC1 14:00
PROVIDERS: ATTEND Family Medicine
DX: D50.8 Other iron deficiency anemias (principal); R53.83 Other fatigue
CPT/HCPCS: 36415; 80053; 82306; 82607; 82728; 82746; 83540; 83550; 84439; 84443; 85025

== ENCOUNTER 2019-11-30 13:09 | Emergency (ER) | payer OTHER ==
[2019-11-30 13:15] VITALS: RESP 18
--- NOTE | 2019-11-30 13:57 | ED ---
General Adult HPI - General Chief complaint: Dizziness Stated complaint: Dizziness,SOB Time Seen by Provider: 11/30/19 13:10 Source: patient Mode of arrival: ambulatory Limitations: no limitations - History of Present Illness Initial comments: Patient is a 53-year-old female presents emergency department with reported multiple complaints. She reports that she is in need of a iron transfusion. Has an appointment next Tuesday with Dr. Schilling for evaluation. States she's been taking oral iron for a long time and it is not helping her symptoms. She h as felt lightheaded, short of breath when she walks across the room, difficulty focusing and finding her words.. She also reports to headaches. Patient was seen in the emergency room yesterday for similar complaint and told to follow up outpatient. Reports that she is presenting today because she feels as if her symptoms are getting worse. She denies any fevers or chills. No nausea or vomiting. No neck stiffness. No head trauma. No vision changes. Denies history of DVT or PE. No lower extreme swelling. Denies cough or hemoptysis. No abdominal pain. No changes in her bowel or bladder habits. No other alleviating, field auditor modifying factors - Related Data Home Medications Medication Instructions Recorded Confirmed lamoTRIgine [LaMICtal] 200 mg PO BID 09/26/18 11/30/19 Topiramate 50 mg PO TID 12/19/18 11/30/19 clonazePAM [KlonoPIN] 1.5 mg PO Q12H 04/20/19 11/30/19 Ibuprofen [Motrin] 800 mg PO TID PRN 11/30/19 11/30/19 Multivitamin [Multivitamins Adult 2 tab PO DAILY 11/30/19 11/30/19 Gummies] Sertraline [Zoloft] 50 mg PO DAILY 11/30/19 11/30/19 Allergies Allergy/AdvReac Type Severity Reaction Status Date / Time erythromycin base Allergy Rash/Hives Verified 11/30/19 16:46 iodine Allergy Anaphylaxis Verified 11/30/19 16:46 ketorolac tromethamine Allergy Rash/Hives/ Verified 11/30/19 16:46 [From Toradol] hallucinati ons Penicillins Allergy Anaphylaxis Verified 11/30/19 16:46 azithromycin AdvReac red face Verified 11/30/19 16:46 lorazepam [From Ativan] AdvReac Hallucinati Verified 11/30/19 16:46 ons Review of Systems ROS Statement: Those systems with pertinent positive or pertinent negative responses have been documented in the HPI. ROS Other: All systems not noted in ROS Statement are negative. 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, swelling of left lower leg, insomnia, hx hiatal hernia, hx colon cancer, diarrhea, hx psoriasis, Leaky heart valve, episodes of "passing out" History of Any Multi-Drug Resistant Organisms: MRSA Date of last positivie culture/infection: 08/10/19 MDRO Source:: URINE Past Surgical History: Appendectomy, Bowel Resection, Cholecystectomy, Ear Surgery, Hysterectomy, Orthopedic Surgery Additional Past Surgical History / Comment(s): frantz knee arthroscopy, hiatal hernia surgery, rt ear surgery to remove middle ear, lymph node biopsy right armpit Past Anesthesia/Blood Transfusion Reactions: Postoperative Nausea & Vomiting (PONV) Past Psychological History: Anxiety, Panic Disorder Smoking Status: Never smoker Past Alcohol Use History: Occasional Past Drug Use History: None Reported - Past Family History Mother Family Medical History: No Reported History Additional Family Medical History / Comment(s): . General Exam Limitations: no limitations Course Vital Signs 11/30/19 11/30/19 11/30/19 13:12 15:13 16:34 Temperature 98.2 F 97.6 F Pulse Rate 85 66 69 Respiratory 18 18 18 Rate Blood Pressure 104/65 120/50 122/61 O2 Sat by Pulse 99 99 99 Oximetry EKG Findings - EKG Comments: EKG Findings:: EKG demonstrates a normal sinus rhythm with a ventricular rate of 69. KS interval 176. Your S1 52. QTC of 454. Inverted T-wave in V1V2 as well as lead 3. J-point elevation 1, aVL. Medical Decision Making - Medical Decision Making Upon arrival the patient was placed into room 3. A thorough history and physical exam was performed. Patient is hooked up to continuous pulse ox and cardiac monitoring. A 12-lead EKG was performed. Laboratory studies were conducted which demonstrated hemoglobin of 9.7. He was previously 9.2. Uri nalysis is positive for [address] of the patient's brain is performed that she is reporting to worsening dizziness. It demonstrates a normal CT of the brain. Chest x-ray is also performed which demonstrates no evidence for acute cardiac pulmonary process. I discussed results with the patient. Patient is requesting to be admitted for iron transfusion. I called and discussed case with Dr. Mcpherson who recommended the patient follow up in the office on Tuesday. He states that her symptoms have been present for a extended period of time that there is not a need for the patient be admitted. I discussed this with the patient for which she understood. Mother is at bedside and agrees to stay with the patient. Patient will be discharged home. Asked return to the emergency room for any new or worsening symptoms for patient was discharged with stable condition - Lab Data Result diagrams: 11/30/19 14:01 11/30/19 14:01 Lab Results 11/30/19 11/30/19 11/30/19 Range/Units 14:01 14:01 14:01 WBC 8.4 (3.8-10.6) k/uL RBC 3.85 (3.80-5.40) m/uL Hgb 9.7 L (11.4-16.0) gm/dL Hct 31.8 L (34.0-46.0) % MCV 82.5 (80.0-100.0) fL MCH 25.2 (25.0-35.0) pg MCHC 30.5 L (31.0-37.0) g/dL RDW 15.2 (11.5-15.5) % Plt Count 301 (150-450) k/uL Neutrophils % 73 % Lymphocytes % 20 % Monocytes % 4 % Eosinophils % 2 % Basophils % 0 % Neutrophils # 6.1 (1.3-7.7) k/uL Lymphocytes # 1.7 (1.0-4.8) k/uL Monocytes # 0.3 (0-1.0) k/uL Eosinophils # 0.1 (0-0.7) k/uL Basophils # 0.0 (0-0.2) k/uL Hypochromasia Marked PT 9.5 (9.0-12.0) sec INR 0.9 (<1.2) APTT 22.1 (22.0-30.0) sec Sodium 139 (137-145) mmol/L Potassium 3.8 (3.5-5.1) mmol/L Chloride 111 H (98-107) mmol/L Carbon Dioxide 23 (22-30) mmol/L Anion Gap 5 mmol/L BUN 19 H (7-17) mg/dL Creatinine 0.86 (0.52-1.04) mg/dL Est GFR (CKD-EPI)AfAm 90 (>60 ml/min/1.73 sqM) Est GFR (CKD-EPI)NonAf 78 (>60 ml/min/1.73 sqM) Glucose 86 (74-99) mg/dL Plasma Lactic Acid Williams (0.7-2.0) mmol/L Calcium 9.3 (8.4-10.2) mg/dL Total Bilirubin 0.3 (0.2-1.3) mg/dL AST 22 (14-36) U/L ALT 15 (4-34) U/L Alkaline Phosphatase 170 H (38-126) U/L Troponin I (0.000-0.034) ng/mL C-Reactive Protein 8.6 (<10.0) mg/L Total Protein 6.4 (6.3-8.2) g/dL Albumin 3.7 (3.5-5.0) g/dL TSH 1.730 (0.465-4.680) mIU/L Urine Color Urine Appearance (Clear) Urine pH (5.0-8.0) Ur Specific [place] (1.001-1.035) Urine Protein (Negative) Urine Glucose (UA) (Negative) Urine Ketones (Negative) Urine Blood (Negative) Urine Nitrite (Negative) Urine Bilirubin (Negative) Urine Urobilinogen (<2.0) mg/dL Ur Leukocyte Esterase (Negative) Urine RBC (0-5) /hpf Urine WBC (0-5) /hpf Ur Squamous Epith Cells (0-4) /hpf Hyaline Casts (0-2) /lpf Urine Mucus (None) /hpf 11/30/19 11/30/19 11/30/19 Range/Units 14:01 14:04 15:03 WBC (3.8-10.6) k/uL RBC (3.80-5.40) m/uL Hgb (11.4-16.0) gm/dL Hct (34.0-46.0) % MCV (80.0-100.0) fL MCH (25.0-35.0) pg MCHC (31.0-37.0) g/dL RDW (11.5-15.5) % Plt Count (150-450) k/uL Neutrophils % % Lymphocytes % % Monocytes % % Eosinophils % % Basophils % % Neutrophils # (1.3-7.7) k/uL Lymphocytes # (1.0-4.8) k/uL Monocytes # (0-1.0) k/uL Eosinophils # (0-0.7) k/uL Basophils # (0-0.2) k/uL Hypochromasia PT (9.0-12.0) sec INR (<1.2) APTT (22.0-30.0) sec Sodium (137-145) mmol/L Potassium (3.5-5.1) mmol/L Chloride (98-107) mmol/L Carbon Dioxide (22-30) mmol/L Anion Gap mmol/L BUN (7-17) mg/dL Creatinine (0.52-1.04) mg/dL Est GFR (CKD-EPI)AfAm (>60 ml/min/1.73 sqM) Est GFR (CKD-EPI)NonAf (>60 ml/min/1.73 sqM) Glucose (74-99) mg/dL Plasma Lactic Acid Williams 1.8 (0.7-2.0) mmol/L Calcium (8.4-10.2) mg/dL Total Bilirubin (0.2-1.3) mg/dL AST (14-36) U/L ALT (4-34) U/L Alkaline Phosphatase (38-126) U/L Troponin I <0.012 (0.000-0.034) ng/mL C-Reactive Protein (<10.0) mg/L Total Protein (6.3-8.2) g/dL Albumin (3.5-5.0) g/dL TSH (0.465-4.680) mIU/L Urine Color Yellow Urine Appearance Clear (Clear) Urine pH 7.0 (5.0-8.0) Ur Specific [place] 1.016 (1.001-1.035) Urine Protein Negative (Negative) Urine Glucose (UA) Negative (Negative) Urine Ketones Negative (Negative) Urine Blood Negative (Negative) Urine Nitrite Negative (Negative) Urine Bilirubin Negative (Negative) Urine Urobilinogen <2.0 (<2.0) mg/dL Ur Leukocyte Esterase Large H (Negative) Urine RBC 1 (0-5) /hpf Urine WBC 33 H (0-5) /hpf Ur Squamous Epith Cells 2 (0-4) /hpf Hyaline Casts 3 H (0-2) /lpf Urine Mucus Few H (None) /hpf Disposition Clinical Impression: Fatigue, Iron deficiency anemia Disposition: HOME SELF-CARE Condition: Stable Instructions (If sedation given, give patient instructions): Fatigue (ED) Additional Instructions: Please follow up with Dr. Mcpherson on Tuesday. Return to the ED for any new or worsening symptoms. Is patient prescribed a controlled substance at d/c from ED?: No Referrals: Scott Medrano MD [Primary Care Provider] - 1-2 days Time of Disposition: 17:39
[2019-11-30 14:20] LABS: Basophils % (A) 0 %; Eosinophils # (A) 0.1 k/uL (0-0.7); Eosinophils % (A) 2 %; HCT 31.8 % (34.0-46.0); HGB 9.7 gm/dL (11.4-16.0); Hypochromasia Marked; Lymphocytes # (A) 1.7 k/uL (1.0-4.8); Lymphocytes % (A) 20 %; MCH 25.2 pg (25.0-35.0); MCHC 30.5 g/dL (31.0-37.0); MCV 82.5 fL (80.0-100.0); Monocytes # (A) 0.3 k/uL (0-1.0); Monocytes % (A) 4 %; Neutrophils # (A) 6.1 k/uL (1.3-7.7); Neutrophils % (A) 73 %; Platelet Count 301 k/uL (150-450); RBC 3.85 m/uL (3.80-5.40); RDW 15.2 % (11.5-15.5); WBC 8.4 k/uL (3.8-10.6)
[2019-11-30 14:27] LABS: INR 0.9 (<1.2); Partial Thromboplastin Time 22.1 sec (22.0-30.0); Prothrombin Time 9.5 sec (9.0-12.0)
[2019-11-30 14:31] LABS: Albumin 3.7 g/dL (3.5-5.0); C Reactive Protein 8.6 mg/L (<10.0); Calcium 9.3 mg/dL (8.4-10.2); Potassium 3.8 mmol/L (3.5-5.1); Total Bilirubin 0.3 mg/dL (0.2-1.3); Total Protein 6.4 g/dL (6.3-8.2)
--- NOTE | 2019-11-30 14:32 | CT ---
EXAMINATION TYPE: CT brain wo con DATE OF EXAM: 11/30/2019 COMPARISON: 09/17/2019 INDICATION: headache, dizziness DLP: 1096.4 mGycm, Automated exposure control for dose reduction was used. CONTRAST: None CT of the brain is performed utilizing 3 mm thick sections through the posterior fossa and 3 mm thick sections through the remaining calvarium. Study is performed within 24 hours of arrival to the hosp ital. No abnormal hyperdensity is present to suggest an acute intracranial hemorrhage. No mass lesion is evident. No acute infarcts are evident. Ventricles and sulci are appropriate for the patient age. Paranasal sinuses and mastoid air cells within the [id number] are clear. Been prior right mastoide ctomy IMPRESSIONS: 1. Normal CT Brain
--- NOTE | 2019-11-30 14:56 | XR ---
EXAMINATION TYPE: XR chest 2V DATE OF EXAM: 11/30/2019 COMPARISON: [facility] 2019 HISTORY: Shortness of breath TECHNIQUE: Frontal and lateral views of the chest are obtained. FINDINGS: Scattered senescent parenchymal changes noted. Hyperinflation compatible with COPD. No evidence for infiltrate. No evidence for atelectasis. Heart size is stable. Mediastinal structures are stable and grossly unremarkable. No evidence for hilar prominence. Degenerative changes dorsal spine. IMPRESSION: 1. No evidence for acute pulmonary disease.
[2019-11-30 15:31] LABS: Appearance,Urine Clear (Clear); Bilirubin,Urine Negative (Negative); Blood,Urine Negative (Negative); Color,Urine Yellow; Glucose,Urine (UA) Negative (Negative); Hyaline Casts,Urine 3 /lpf (0-2); Ketones,Urine Negative (Negative); Leukocyte Esterase,Urine Large (Negative); Mucus,Urine Few /hpf; Nitrite,Urine Negative (Negative); Protein,Urine Negative (Negative); RBC,Urine 1 /hpf (0-5); Specific Gravity,Urine 1.016 (1.001-1.035); Squamous Epithelial Cell,Urine 2 /hpf (0-4); Urobilinogen,Urine <2.0 mg/dL (<2.0); WBC,Urine 33 /hpf (0-5)
[2019-11-30 16:35] VITALS: BP 122/61; TEMP 97.6
[2019-11-30 17:45] VITALS: PULSE 69
== END 2019-11-30 18:05 | disposition home or self-care (01) ==
LOC: EC 13:09
DX: D50.9 Iron deficiency anemia, unspecified (principal); R53.83 Other fatigue; F41.9 Anxiety disorder, unspecified; G40.909 Epilepsy, unspecified, not intractable, without status epilepticus; F41.0 Panic disorder [episodic paroxysmal anxiety]; Z79.899 Other long term (current) drug therapy; Z88.0 Allergy status to penicillin; Z88.1 Allergy status to other antibiotic agents; Z88.6 Allergy status to analgesic agent; Z91.041 Radiographic dye allergy status; Z85.038 Personal history of other malignant neoplasm of large intestine; Z86.14 Personal history of Methicillin resistant Staphylococcus aureus infection; Z86.69 Personal history of other diseases of the nervous system and sense organs
CPT/HCPCS: 36415; 70450; 71046; 80053; 81001; 83605; 84443; 84484; 85025; 85610; 85730; 86140; 87070; 87205; 99285

== ENCOUNTER 2019-12-02 21:57 | Emergency (ER) | payer OTHER ==
[2019-12-02 22:16] VITALS: RESP 18
[2019-12-03] MEDS ORDERED: HYDROmorphone 1 MG/ML 1 ML SYRINGE IM STA (00:11)
--- NOTE | 2019-12-03 00:13 | ED ---
Extremity Problem HPI - General Chief complaint: Extremity Problem,Nontraumatic Stated complaint: Pain R armpit, MRSA Time Seen by Provider: 12/02/19 23:47 Source: patient Mode of arrival: ambulatory Limitations: no limitations - History of Present Illness Initial comments: Reshma is a 53-year-old female who presents the ER today for reevaluation of burning pain in her right axilla. Patient had surgery by Dr. Modi last week to remove 2 nodules in her axilla. Patient was subsequently seen and evaluated in the ER and diagnosed with a MRSA infection, she's been on oral Bactrim which she reports she's been compliant with. Patient reports tonight the pain was worse, despite taking her [place] she had no relief in the pain. Patient is scheduled to see her surgeon tomorrow morning 11 AM for wound check. - Related Data Home Medications Medication Instructions Recorded Confirmed lamoTRIgine [LaMICtal] 200 mg PO BID 09/26/18 11/30/19 Topiramate 50 mg PO TID 12/19/18 11/30/19 clonazePAM [KlonoPIN] 1.5 mg PO Q12H 04/20/19 11/30/19 Ibuprofen [Motrin] 800 mg PO TID PRN 11/30/19 11/30/19 Multivitamin [Multivitamins Adult 2 tab PO DAILY 11/30/19 11/30/19 Gummies] Sertraline [Zoloft] 50 mg PO DAILY 11/30/19 11/30/19 Allergies Allergy/AdvReac Type Severity Reaction Status Date / Time erythromycin base Allergy Rash/Hives Verified 12/02/19 22:16 iodine Allergy Anaphylaxis Verified 12/02/19 22:16 ketorolac tromethamine Allergy Rash/Hives/ Verified 12/02/19 22:16 [From Toradol] hallucinati ons Penicillins Allergy Anaphylaxis Verified 12/02/19 22:16 azithromycin AdvReac red face Verified 12/02/19 22:16 lorazepam [From Ativan] AdvReac Hallucinati Verified 12/02/19 22:16 ons Review of Systems ROS Statement: Those systems with pertinent positive or pertinent negative responses have been documented in the HPI. ROS Other: All systems not noted in ROS Statement are negative. 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, swelling of left lower leg, insomnia, hx hiatal hernia, hx colon cancer, diarrhea, hx psoriasis, Leaky heart valve, episodes of "passing out" History of Any Multi-Drug Resistant Organisms: MRSA Date of last positivie culture/infection: 08/10/19 MDRO Source:: URINE Past Surgical History: Appendectomy, Bowel Resection, Cholecystectomy, Ear Surgery, Hysterectomy, Orthopedic Surgery Additional Past Surgical History / Comment(s): frantz knee arthroscopy, hiatal hernia surgery, rt ear surgery to remove middle ear, lymph node biopsy right armpit Past Anesthesia/Blood Transfusion Reactions: Postoperative Nausea & Vomiting (PONV) Past Psychological History: Anxiety, Panic Disorder Smoking Status: Never smoker Past Alcohol Use History: Occasional Past Drug Use History: None Reported - Past Family History Mother Family Medical History: No Reported History Additional Family Medical History / Comment(s): . General Exam - General Exam Comments Initial Comments: Physical Exam GENERAL: Appears uncomfortable HENT: Normocephalic, Atraumatic. EYES: PERRL, EOMI PULMONARY: Unlabored respirations. CARDIOVASCULAR: RRR Warm and well perfused extremities ABDOMEN: Non-distended SKIN: Incision in right axilla with minimal erythema and purulent malodorous discharge No area of fluctuance No surrounding erythema or induration : Deferred NEUROLOGIC: Alert and oriented Normal speech Normal gait MUSCULOSKELETAL: Decreased ROM of right shoulder secondary to pain PSYCHIATRIC: No SI/HI Limitations: no limitations Course Vital Signs 12/02/19 12/03/19 22:11 00:21 Temperature 98.1 F 97.8 F Pulse Rate 80 64 Respiratory 18 18 Rate Blood Pressure 122/61 117/64 O2 Sat by Pulse 99 99 Oximetry Medical Decision Making - Medical Decision Making The patient was seen and evaluated, history is obtained from the patient and review of medical record Physical exam does reveal an incision that is erythematous with minimal purulent discharge, no palpable abscess no surrounding cellulitis Patient is afebrile, no tachycardia no Sirs criteria Patient is tolerating her oral antibiotics Patient we treated with IM Dilaudid for pain management, advised to continue her oral pain medications and follow with her surgeon tomorrow. A heredia is in agreement with this plan. Patient received Dilaudid and had some relief. Patient discharged home in stable condition. Disposition Clinical Impression: Post op infection Disposition: HOME SELF-CARE Additional Instructions: As we discussed in follow-up with Dr. Modi tomorrow as scheduled Continue taking your pain medications and antibiotics Keep the surgical site clean and dry Return to the ER if you have any fevers, vomiting inability to tolerate her oral antibiotics or develop any new or concerning symptoms Is patient prescribed a controlled substance at d/c from ED?: No Referrals: Scott Medrano MD [Primary Care Provider] - 1-2 days
[2019-12-03 00:29] VITALS: BP 117/64; PULSE 64; TEMP 97.8
== END 2019-12-03 00:28 | disposition home or self-care (01) ==
LOC: EC 21:57
DX: T81.40XA Infection following a procedure, unspecified, initial encounter (principal); G40.409 Other generalized epilepsy and epileptic syndromes, not intractable, without status epilepticus; F41.0 Panic disorder [episodic paroxysmal anxiety]; Z79.899 Other long term (current) drug therapy; Z88.0 Allergy status to penicillin; Z88.1 Allergy status to other antibiotic agents; Z91.048 Other nonmedicinal substance allergy status; Z88.5 Allergy status to narcotic agent; Z88.8 Allergy status to other drugs, medicaments and biological substances; Z85.038 Personal history of other malignant neoplasm of large intestine
CPT/HCPCS: 96372; 99283

== ENCOUNTER 2019-12-17 23:00 | Emergency (ER) | payer OTHER ==
[2019-12-17] MEDS ORDERED: SODIUM CHLORIDE 0.9% 1,000 ML IV STA (23:02)
[2019-12-17 23:08] VITALS: TEMP 98.1
[2019-12-17 23:47] LABS: Anisocytosis Slight; Basophils % (A) 0 %; Eosinophils # (A) 0.2 k/uL (0-0.7); Eosinophils % (A) 2 %; HCT 27.5 % (34.0-46.0); HGB 8.6 gm/dL (11.4-16.0); Hypochromasia Moderate; Lymphocytes # (A) 2.1 k/uL (1.0-4.8); Lymphocytes % (A) 29 %; MCH 25.1 pg (25.0-35.0); MCHC 31.1 g/dL (31.0-37.0); MCV 80.7 fL (80.0-100.0); Mean Platelet Volume 7.8; Monocytes # (A) 0.4 k/uL (0-1.0); Monocytes % (A) 5 %; Neutrophils # (A) 4.7 k/uL (1.3-7.7); Neutrophils % (A) 62 %; Platelet Count 294 k/uL (150-450); RBC 3.41 m/uL (3.80-5.40); RDW 16.1 % (11.5-15.5); WBC 7.5 k/uL (3.8-10.6)
[2019-12-17 23:55] LABS: INR 0.9 (<1.2); Partial Thromboplastin Time 22.4 sec (22.0-30.0); Prothrombin Time 9.7 sec (9.0-12.0)
[2019-12-17 23:56] LABS: Albumin 3.6 g/dL (3.5-5.0); Calcium 9.1 mg/dL (8.4-10.2); Potassium 3.8 mmol/L (3.5-5.1); Total Bilirubin 0.2 mg/dL (0.2-1.3); Total Protein 6.4 g/dL (6.3-8.2)
--- NOTE | 2019-12-18 00:25 | ED ---
General Adult HPI - General Chief complaint: Syncope Stated complaint: syncope Time Seen by Provider: 12/17/19 23:01 Source: patient, EMS Mode of arrival: EMS Limitations: no limitations - History of Present Illness Initial comments: Reshma is a 54-year-old female who presents to the emergency department today ambulance for evaluation of syncopal episode at home. Patient reports that over the past 3-4 week she's been feeling fatigued, she's been following with her primary care physician and has been noted to have profound anemia, she did receive her first iron infusion earlier this week. She states that this evening she was getting ready for bed. She used the restroom and then stood up her pajamas back on had a syncopal episode. She reports that she's been having episodes of lightheadedness upon standing for a while which they attributed to her anemia. Patient was recently ill with an abscess to the right axilla, she was on antibiotic she followed with her surgeon who opened up the surgical site in the abscesses drained abscess subsequently healing. - Related Data Home Medications Medication Instructions Recorded Confirmed lamoTRIgine [LaMICtal] 200 mg PO BID 09/26/18 12/13/19 Topiramate 50 mg PO TID 12/19/18 12/13/19 clonazePAM [KlonoPIN] 1.5 mg PO Q12H 04/20/19 12/13/19 Ibuprofen [Motrin] 800 mg PO TID PRN 11/30/19 12/13/19 Sertraline [Zoloft] 50 mg PO DAILY 11/30/19 12/13/19 Allergies Allergy/AdvReac Type Severity Reaction Status Date / Time erythromycin base Allergy Rash/Hives Verified 12/13/19 12:25 iodine Allergy Anaphylaxis Verified 12/13/19 12:25 ketorolac tromethamine Allergy Rash/Hives/ Verified 12/13/19 12:25 [From Toradol] hallucinati ons Penicillins Allergy Anaphylaxis Verified 12/13/19 12:25 azithromycin AdvReac red face Verified 12/13/19 12:25 lorazepam [From Ativan] AdvReac Hallucinati Verified 12/13/19 12:25 ons Review of Systems ROS Statement: Those systems with pertinent positive or pertinent negative responses have been documented in the HPI. ROS Other: All systems not noted in ROS Statement are negative. 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, swelling of left lower leg, insomnia, hx hiatal hernia, hx colon cancer, diarrhea, hx psoriasis, Leaky heart valve, episodes of "passing out", 3x blocked sweat glands currently History of Any Multi-Drug Resistant Organisms: MRSA Date of last positivie culture/infection: 08/10/19 MDRO Source:: URINE Past Surgical History: Appendectomy, Bowel Resection, Cholecystectomy, Ear Surgery, Hysterectomy, Orthopedic Surgery Additional Past Surgical History / Comment(s): frantz knee arthroscopy, hiatal hernia surgery, rt ear surgery to remove middle ear, lymph node biopsy right armpit Past Anesthesia/Blood Transfusion Reactions: Postoperative Nausea & Vomiting (PONV) Past Psychological History: Anxiety, Panic Disorder Smoking Status: Never smoker Past Alcohol Use History: Occasional Past Drug Use History: None Reported - Past Family History Mother Family Medical History: No Reported History Additional Family Medical History / Comment(s): . General Exam - General Exam Comments Initial Comments: Physical Exam GENERAL: Patient is well-developed and well-nourished. Patient is nontoxic and well-hydrated and is in no distress. HENT: Normocephalic, Atraumatic. No julien signs, no raccoon eyes No evidence of head trauma EYES: PERRL, EOMI PULMONARY: Unlabored respirations. No audible rales rhonchi or wheezing was noted. CARDIOVASCULAR: There is a regular rate and rhythm without any murmurs gallops or rubs. ABDOMEN: Soft and nontender with normal bowel sounds. SKIN: Skin is clear with no lesions or rashes and otherwise unremarkable. Skin is pale : Deferred NEUROLOGIC: Patient is alert and oriented x3. Moving all extremities spontaneously MUSCULOSKELETAL: Normal extremities with adequate strength and full range of motion. No lower extremity swelling or edema. No calf tenderness. PSYCHIATRIC: Normal psychiatric evaluation. Limitations: no limitations Course Vital Signs 12/17/19 23:01 Temperature 98.1 F Pulse Rate 78 Respiratory 16 Rate Blood Pressure 131/57 O2 Sat by Pulse 98 Oximetry EKG Findings - EKG Comments: EKG Findings:: EKG was obtained due to complaint of syncope, EKG was obtained at 2312, rate is 69, rhythm is sinus with a bifascicular block, NJ is prolonged at 204, QRS 144, QTC is 475 there are no acute ST elevations or depressions no evidence of acute ischemia or infarction. EKG was paired to EKG obtained in November bifascicular block is not new there is no significant changes in morphology. 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 Modi for EGD she did have a colonoscopy earlier this year with no significant findings All questions pertaining care were answered return parameters were discussed patient was discharged home in stable condition - Lab Data Result diagrams: 12/17/19 23:36 12/17/19 23:36 Lab Results 12/17/19 12/17/19 12/17/19 Range/Units 23:36 23:36 23:36 WBC 7.5 (3.8-10.6) k/uL RBC 3.41 L (3.80-5.40) m/uL Hgb 8.6 L (11.4-16.0) gm/dL Hct 27.5 L (34.0-46.0) % MCV 80.7 (80.0-100.0) fL MCH 25.1 (25.0-35.0) pg MCHC 31.1 (31.0-37.0) g/dL RDW 16.1 H (11.5-15.5) % Plt Count 294 (150-450) k/uL Neutrophils % 62 % Lymphocytes % 29 % Monocytes % 5 % Eosinophils % 2 % Basophils % 0 % Neutrophils # 4.7 (1.3-7.7) k/uL Lymphocytes # 2.1 (1.0-4.8) k/uL Monocytes # 0.4 (0-1.0) k/uL Eosinophils # 0.2 (0-0.7) k/uL Basophils # 0.0 (0-0.2) k/uL Hypochromasia Moderate Anisocytosis Slight PT 9.7 (9.0-12.0) sec INR 0.9 (<1.2) APTT 22.4 (22.0-30.0) sec Sodium 141 (137-145) mmol/L Potassium 3.8 (3.5-5.1) mmol/L Chloride 112 H (98-107) mmol/L Carbon Dioxide 25 (22-30) mmol/L Anion Gap 4 mmol/L BUN 25 H (7-17) mg/dL Creatinine 0.96 (0.52-1.04) mg/dL Est GFR (CKD-EPI)AfAm 78 (>60 ml/min/1.73 sqM) Est GFR (CKD-EPI)NonAf 68 (>60 ml/min/1.73 sqM) Glucose 95 (74-99) mg/dL Calcium 9.1 (8.4-10.2) mg/dL Total Bilirubin 0.2 (0.2-1.3) mg/dL AST 27 (14-36) U/L ALT 14 (4-34) U/L Alkaline Phosphatase 163 H (38-126) U/L Troponin I (0.000-0.034) ng/mL Total Protein 6.4 (6.3-8.2) g/dL Albumin 3.6 (3.5-5.0) g/dL 12/17/19 Range/Units 23:36 WBC (3.8-10.6) k/uL RBC (3.80-5.40) m/uL Hgb (11.4-16.0) gm/dL Hct (34.0-46.0) % MCV (80.0-100.0) fL MCH (25.0-35.0) pg MCHC (31.0-37.0) g/dL RDW (11.5-15.5) % Plt Count (150-450) k/uL Neutrophils % % Lymphocytes % % Monocytes % % Eosinophils % % Basophils % % Neutrophils # (1.3-7.7) k/uL Lymphocytes # (1.0-4.8) k/uL Monocytes # (0-1.0) k/uL Eosinophils # (0-0.7) k/uL Basophils # (0-0.2) k/uL Hypochromasia Anisocytosis PT (9.0-12.0) sec INR (<1.2) APTT (22.0-30.0) sec Sodium (137-145) mmol/L Potassium (3.5-5.1) mmol/L Chloride (98-107) mmol/L Carbon Dioxide (22-30) mmol/L Anion Gap mmol/L BUN (7-17) mg/dL Creatinine (0.52-1.04) mg/dL Est GFR (CKD-EPI)AfAm (>60 ml/min/1.73 sqM) Est GFR (CKD-EPI)NonAf (>60 ml/min/1.73 sqM) Glucose (74-99) mg/dL Calcium (8.4-10.2) mg/dL Total Bilirubin (0.2-1.3) mg/dL AST (14-36) U/L ALT (4-34) U/L Alkaline Phosphatase (38-126) U/L Troponin I <0.012 (0.000-0.034) ng/mL Total Protein (6.3-8.2) g/dL Albumin (3.5-5.0) g/dL Disposition Clinical Impression: Chronic anemia, Syncope Disposition: HOME SELF-CARE Condition: Stable Additional Instructions: As we discussed her hemoglobin is low today, he need to follow up with Dr. Fall for continued evaluation of your hemoglobin and treatment of your anemia Return to the emergency department if you have any recurrent syncope, developed chest pain palpitations or any new or concerning symptoms Is patient prescribed a controlled substance at d/c from ED?: No Referrals: Scott Medrano MD [Primary Care Provider] - 1-2 days
--- NOTE | 2019-12-18 00:41 | XR ---
EXAMINATION TYPE: XR chest 2V DATE OF EXAM: 12/18/2019 COMPARISON: 11/30/2019 HISTORY: Syncope TECHNIQUE: FINDINGS: Heart and mediastinum are normal. Lungs are clear. Diaphragm is normal. There are chest helen ds. Costophrenic angles are clear. The bony thorax is intact. IMPRESSION: No active cardiopulmonary disease. No change.
[2019-12-18 01:07] VITALS: BP 140/75; PULSE 61; RESP 18
== END 2019-12-18 01:07 | disposition home or self-care (01) ==
LOC: EC 23:00
DX: R55 Syncope and collapse (principal); D64.9 Anemia, unspecified; F41.9 Anxiety disorder, unspecified; G40.409 Other generalized epilepsy and epileptic syndromes, not intractable, without status epilepticus; M79.7 Fibromyalgia; G47.00 Insomnia, unspecified; F41.0 Panic disorder [episodic paroxysmal anxiety]; Z79.899 Other long term (current) drug therapy; Z88.0 Allergy status to penicillin; Z88.1 Allergy status to other antibiotic agents; Z88.8 Allergy status to other drugs, medicaments and biological substances; Z91.048 Other nonmedicinal substance allergy status; Z88.6 Allergy status to analgesic agent; Z86.14 Personal history of Methicillin resistant Staphylococcus aureus infection; Z85.038 Personal history of other malignant neoplasm of large intestine; Z90.49 Acquired absence of other specified parts of digestive tract
CPT/HCPCS: 71046; 80053; 84484; 85025; 85610; 85730; 93005; 96360; 99284

== ENCOUNTER 2019-12-19 15:05 | Observation (INO) | payer OTHER ==
[2019-12-19] MEDS ORDERED: SODIUM CHLORIDE 0.9% 1,000 ML IV STA (15:42)
--- NOTE | 2019-12-19 15:48 | ED ---
General Adult HPI - General Chief complaint: Chest Pain Stated complaint: chest pain, weakness Time Seen by Provider: 12/19/19 15:19 Source: patient, family, RN notes reviewed Mode of arrival: wheelchair Limitations: no limitations - History of Present Illness Initial comments: Patient is a pleasant 54-year-old female presenting to the emergency department with chest discomfort. Patient states symptoms have been ongoing for over a month. Patient has had multiple syncopal episodes. Patient was getting a blood transfusion today. Patient is being evaluated for GI hemorrhage. Patient does have pending scope and computed tomography scan of her abdomen for this. Patient was given 2 units of blood today. Patient did have chest discomfort again during this and she spoke to her doctor who advised to come to the emergency department. Patient did have syncopal episode just following using the restroom the emergency department here. No isolated weakness. No confusion. No loss of sensation. No headache. No trauma during syncopal episode, patient was caught. No neck or back pain. Patient does have generalized fatigue. Patient states her chest discomfort does worsen with exertion. Patient states she does have some exertional dyspnea, otherwise no dyspnea at rest. - Related Data Home Medications Medication Instructions Recorded Confirmed lamoTRIgine [LaMICtal] 200 mg PO BID 09/26/18 12/19/19 Topiramate 50 mg PO TID 12/19/18 12/19/19 clonazePAM [KlonoPIN] 1.5 mg PO Q12H 04/20/19 12/19/19 Ibuprofen [Motrin] 800 mg PO TID PRN 11/30/19 12/19/19 Sertraline [Zoloft] 50 mg PO DAILY 11/30/19 12/19/19 Allergies Allergy/AdvReac Type Severity Reaction Status Date / Time erythromycin base Allergy Rash/Hives Verified 12/19/19 15:11 iodine Allergy Anaphylaxis Verified 12/19/19 15:11 ketorolac tromethamine Allergy Rash/Hives/ Verified 12/19/19 15:11 [From Toradol] hallucinati ons Penicillins Allergy Anaphylaxis Verified 12/19/19 15:11 azithromycin AdvReac red face Verified 12/19/19 15:11 lorazepam [From Ativan] AdvReac Hallucinati Verified 12/19/19 15:11 ons Review of Systems ROS Statement: Those systems with pertinent positive or pertinent negative responses have been documented in the HPI. ROS Other: All systems not noted in ROS Statement are negative. Constitutional: Denies: fever Eyes: Denies: eye pain ENT: Denies: ear pain Respiratory: Reports: as per HPI, dyspnea. 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 BLOOD TRANSFUSIONS FOR LOW HGB. History of Any Multi-Drug Resistant Organisms: MRSA Date of last positivie culture/infection: 08/10/19 MDRO Source:: URINE Past Surgical History: Appendectomy, Bowel Resection, Cholecystectomy, Ear Surgery, Hysterectomy, Orthopedic Surgery Additional Past Surgical History / Comment(s): frantz knee arthroscopy, hiatal hernia surgery, rt ear surgery to remove middle ear, lymph node biopsy right armpit Past Anesthesia/Blood Transfusion Reactions: Postoperative Nausea & Vomiting (PONV) Past Psychological History: Anxiety, Panic Disorder Smoking Status: Never smoker Past Alcohol Use History: None Reported Past Drug Use History: None Reported - Past Family History Mother Family Medical History: No Reported History Additional Family Medical History / Comment(s): . General Exam Limitations: no limitations General appearance: alert, in no apparent distress Head exam: Present: normocephalic Eye exam: Present: normal appearance, PERRL, EOMI. Absent: nystagmus ENT exam: Present: normal oropharynx Neck exam: Present: normal inspection. Absent: tenderness Respiratory exam: Present: normal lung sounds bilaterally Cardiovascular Exam: Present: regular rate, normal rhythm Expanded Peripheral pulses: 2+: Radial (R), Radial (L), Dorsalis Pedis (R), Dorsalis Pedis (L) GI/Abdominal exam: Present: soft. Absent: tenderness, pulsatile mass Extremities exam: Present: normal inspection Neurological exam: Present: alert, oriented X3, CN II-XII intact. Absent: motor sensory deficit Expanded Neurological exam: Present: protecting the airway Speech: Present: fluid speech Cranial nerves: EOM's Intact: Normal Motor strength exam: RUE: 5, LUE: 5, RLE: 5, LLE: 5 Eye Response: (4) open spontaneously Motor Response: (6) obeys commands Verbal Response: (5) oriented Psychiatric exam: Present: normal affect, normal mood Skin exam: Present: normal color Course Vital Signs 12/19/19 15:09 Temperature 98.1 F Pulse Rate 63 Respiratory 20 Rate Blood Pressure 152/78 O2 Sat by Pulse 100 Oximetry EKG Findings - EKG Comments: EKG Findings:: Sinus rhythm at 65. First-degree AV block with ID of 220. QRS 14. QT 440. QTc 457. Left axis. Right bundle branch block. Left anterior fascicular block. LVH. Nonspecific T waves. Medical Decision Making - Medical Decision Making Patient reevaluated and resting comfortably in bed. Patient and family updated on results and plan. Case was discussed in detail with Dr. Medrano, who will admit his patient with cardiac evaluation. - Lab Data Result diagrams: 12/19/19 15:48 12/19/19 15:48 Lab Results 12/19/19 12/19/19 12/19/19 Range/Units 15:48 15:48 15:48 WBC 9.2 (3.8-10.6) k/uL RBC 4.41 (3.80-5.40) m/uL Hgb 11.5 (11.4-16.0) gm/dL Hct 37.2 (34.0-46.0) % MCV 84.5 (80.0-100.0) fL MCH 26.1 (25.0-35.0) pg MCHC 30.9 L (31.0-37.0) g/dL RDW 16.3 H (11.5-15.5) % Plt Count 307 (150-450) k/uL Neutrophils % 64 % Lymphocytes % 27 % Monocytes % 4 % Eosinophils % 2 % Basophils % 1 % Neutrophils # 6.0 (1.3-7.7) k/uL Lymphocytes # 2.5 (1.0-4.8) k/uL Monocytes # 0.4 (0-1.0) k/uL Eosinophils # 0.2 (0-0.7) k/uL Basophils # 0.1 (0-0.2) k/uL Hypochromasia Marked Anisocytosis Slight PT 9.4 (9.0-12.0) sec INR 0.9 (<1.2) APTT 23.1 (22.0-30.0) sec D-Dimer 0.35 (<0.60) mg/L FEU Sodium (137-145) mmol/L Potassium (3.5-5.1) mmol/L Chloride (98-107) mmol/L Carbon Dioxide (22-30) mmol/L Anion Gap mmol/L BUN (7-17) mg/dL Creatinine (0.52-1.04) mg/dL Est GFR (CKD-EPI)AfAm (>60 ml/min/1.73 sqM) Est GFR (CKD-EPI)NonAf (>60 ml/min/1.73 sqM) Glucose (74-99) mg/dL Calcium (8.4-10.2) mg/dL Magnesium (1.6-2.3) mg/dL Total Bilirubin (0.2-1.3) mg/dL AST (14-36) U/L ALT (4-34) U/L Alkaline Phosphatase (38-126) U/L Troponin I (0.000-0.034) ng/mL Total Protein (6.3-8.2) g/dL Albumin (3.5-5.0) g/dL Urine Color Yellow Urine Appearance Clear (Clear) Urine pH 6.5 (5.0-8.0) Ur Specific Lawrence 1.020 (1.001-1.035) Urine Protein Negative (Negative) Urine Glucose (UA) Negative (Negative) Urine Ketones Negative (Negative) Urine Blood Negative (Negative) Urine Nitrite Negative (Negative) Urine Bilirubin Negative (Negative) Urine Urobilinogen <2.0 (<2.0) mg/dL Ur Leukocyte Esterase Large H (Negative) Urine RBC 1 (0-5) /hpf Urine WBC 10 H (0-5) /hpf Ur Squamous Epith Cells 6 H (0-4) /hpf Urine Bacteria Rare H (None) /hpf Urine Mucus Rare H (None) /hpf 12/19/19 12/19/19 Range/Units 15:48 15:48 WBC (3.8-10.6) k/uL RBC (3.80-5.40) m/uL Hgb (11.4-16.0) gm/dL Hct (34.0-46.0) % MCV (80.0-100.0) fL MCH (25.0-35.0) pg MCHC (31.0-37.0) g/dL RDW (11.5-15.5) % Plt Count (150-450) k/uL Neutrophils % % Lymphocytes % % Monocytes % % Eosinophils % % Basophils % % Neutrophils # (1.3-7.7) k/uL Lymphocytes # (1.0-4.8) k/uL Monocytes # (0-1.0) k/uL Eosinophils # (0-0.7) k/uL Basophils # (0-0.2) k/uL Hypochromasia Anisocytosis PT (9.0-12.0) sec INR (<1.2) APTT (22.0-30.0) sec D-Dimer (<0.60) mg/L FEU Sodium 141 (137-145) mmol/L Potassium 4.7 (3.5-5.1) mmol/L Chloride 113 H (98-107) mmol/L Carbon Dioxide 23 (22-30) mmol/L Anion Gap 5 mmol/L BUN 23 H (7-17) mg/dL Creatinine 0.83 (0.52-1.04) mg/dL Est GFR (CKD-EPI)AfAm >90 (>60 ml/min/1.73 sqM) Est GFR (CKD-EPI)NonAf 81 (>60 ml/min/1.73 sqM) Glucose 82 (74-99) mg/dL Calcium 9.4 (8.4-10.2) mg/dL Magnesium 2.0 (1.6-2.3) mg/dL Total Bilirubin 0.9 (0.2-1.3) mg/dL AST 44 H (14-36) U/L ALT 16 (4-34) U/L Alkaline Phosphatase 158 H (38-126) U/L Troponin I <0.012 (0.000-0.034) ng/mL Total Protein 7.3 (6.3-8.2) g/dL Albumin 4.2 (3.5-5.0) g/dL Urine Color Urine Appearance (Clear) Urine pH (5.0-8.0) Ur Specific Lawrence (1.001-1.035) Urine Protein (Negative) Urine Glucose (UA) (Negative) Urine Ketones (Negative) Urine Blood (Negative) Urine Nitrite (Negative) Urine Bilirubin (Negative) Urine Urobilinogen (<2.0) mg/dL Ur Leukocyte Esterase (Negative) Urine RBC (0-5) /hpf Urine WBC (0-5) /hpf Ur Squamous Epith Cells (0-4) /hpf Urine Bacteria (None) /hpf Urine Mucus (None) /hpf - Radiology Data Radiology results: image reviewed (Chest x-ray shows cardiomegaly and low lung volumes without suspicious acute process. No change from prior.) Disposition Clinical Impression: Chest pain, Syncope Disposition: ADMITTED IP TO THIS HOSP Is patient prescribed a controlled substance at d/c from ED?: No Referrals: Scott Medrano MD [Primary Care Provider] - 1-2 days Decision Time: 17:25
[2019-12-19 16:10] LABS: Anisocytosis Slight; Basophils # (A) 0.1 k/uL (0-0.2); Basophils % (A) 1 %; Eosinophils # (A) 0.2 k/uL (0-0.7); Eosinophils % (A) 2 %; HCT 37.2 % (34.0-46.0); HGB 11.5 gm/dL (11.4-16.0); Hypochromasia Marked; Lymphocytes # (A) 2.5 k/uL (1.0-4.8); Lymphocytes % (A) 27 %; MCH 26.1 pg (25.0-35.0); MCHC 30.9 g/dL (31.0-37.0); MCV 84.5 fL (80.0-100.0); Mean Platelet Volume 7.3; Monocytes # (A) 0.4 k/uL (0-1.0); Monocytes % (A) 4 %; Neutrophils % (A) 64 %; Platelet Count 307 k/uL (150-450); RBC 4.41 m/uL (3.80-5.40); RDW 16.3 % (11.5-15.5); WBC 9.2 k/uL (3.8-10.6)
[2019-12-19 16:15] LABS: ALT 16 U/L (4-34); AST 44 U/L (14-36); African American GFR (CKD) >90 (>60 ml/min/1.73 sqM); Albumin 4.2 g/dL (3.5-5.0); Alkaline Phosphatase 158 U/L (38-126); Anion Gap 5 mmol/L; Blood Urea Nitrogen 23 mg/dL (7-17); Calcium 9.4 mg/dL (8.4-10.2); Carbon Dioxide 23 mmol/L (22-30); Chloride 113 mmol/L (98-107); Glucose 82 mg/dL (74-99); Non-African American GFR(CKD) 81 (>60 ml/min/1.73 sqM); Sodium 141 mmol/L (137-145); Total Bilirubin 0.9 mg/dL (0.2-1.3); Total Protein 7.3 g/dL (6.3-8.2)
[2019-12-19 16:18] LABS: Appearance,Urine Clear (Clear); Bacteria,Urine Rare /hpf; Bilirubin,Urine Negative (Negative); Blood,Urine Negative (Negative); Color,Urine Yellow; Glucose,Urine (UA) Negative (Negative); Ketones,Urine Negative (Negative); Leukocyte Esterase,Urine Large (Negative); Mucus,Urine Rare /hpf; Nitrite,Urine Negative (Negative); PH, Urine 6.5 (5.0-8.0); Protein,Urine Negative (Negative); RBC,Urine 1 /hpf (0-5); Squamous Epithelial Cell,Urine 6 /hpf (0-4); Urobilinogen,Urine <2.0 mg/dL (<2.0); WBC,Urine 10 /hpf (0-5)
--- NOTE | 2019-12-19 16:22 | XR ---
EXAMINATION TYPE: XR chest 2V DATE OF EXAM: 12/19/2019 COMPARISON: Chest x-ray from yesterday. HISTORY: Syncope and weakness. TECHNIQUE: Frontal and lateral views of the chest are obtained. FINDINGS: Somewhat low lung volumes redemonstrated. There is no new suspicious focal air space opacit y, pleural effusion, or pneumothorax seen. The cardiac silhouette size is stable and mildly enlarged . Overlying loop recorder redemonstrated. Overlying EKG leads are again seen. The osseous structure s are intact. Cholecystectomy clips are noted. IMPRESSION: Low lung volumes and mild cardiomegaly without suspicious acute pulmonary process. No si gnificant change from prior.
[2019-12-19 16:31] LABS: Potassium 4.7 mmol/L (3.5-5.1)
[2019-12-19 16:52] LABS: D-Dimer 0.35 mg/L FEU (<0.60); INR 0.9 (<1.2); Partial Thromboplastin Time 23.1 sec (22.0-30.0); Prothrombin Time 9.4 sec (9.0-12.0)
[2019-12-19] MEDS ORDERED: NITROGLYCERIN SL TABS 0.4 MG TAB SUBLINGUAL PRN (17:25)
[2019-12-19] MEDS ORDERED: ASPIRIN 81 MG PO STA ×2 (17:25→22:18)
[2019-12-19] MEDS ORDERED: KETOROLAC 15 MG/ML 1 ML VIAL IVP STA (21:59)
[2019-12-19] MEDS ORDERED: IBUPROFEN 800 MG TAB PO PRN (22:00)
[2019-12-19] MEDS: NITROGLYCERIN OINT 1 INCH/GM PACKET TOPICAL SCH ×2 (22:06→23:30)
[2019-12-19] MEDS: clonazePAM 0.5 MG TAB PO SCH (22:24)
[2019-12-19] MEDS: TOPIRAMATE 25 MG TAB PO SCH (23:27)
[2019-12-19] MEDS: lamoTRIgine 100 MG TAB PO SCH (23:27)
[2019-12-20 04:34] LABS: Cholesterol 260 mg/dL (<200); HDL Cholesterol 74 mg/dL (40-60); LDL Cholesterol,Calculated 151 mg/dL (0-99); Triglycerides 175 mg/dL (<150)
[2019-12-20] MEDS: NITROGLYCERIN OINT 1 INCH/GM PACKET TOPICAL SCH (05:04)
[2019-12-20 08:05] VITALS: RESP 16
[2019-12-20] MEDS ORDERED: ASPIRIN 325 MG TAB PO SCH (09:00)
[2019-12-20] MEDS: clonazePAM 0.5 MG TAB PO SCH ×2 (09:33→21:03)
[2019-12-20] MEDS: TOPIRAMATE 100 MG TAB PO SCH (09:33)
[2019-12-20] MEDS: SERTRALINE 50 MG TAB PO SCH (09:33)
[2019-12-20] MEDS: lamoTRIgine 100 MG TAB PO SCH ×2 (09:34→21:04)
--- NOTE | 2019-12-20 11:33 | P.CRDCN ---
History of Present Illness History of present illness: HISTORY OF PRESENTING ILLNESS This is a pleasant 54-year-old female past medical history significant for anemia, fibromyalgia and seizure disorder. She also has frequent episodes of syncope prompting a loop recorder implantation. She follows in the office with Dr. Winn. We have been asked to see in consultation for syncope. She states she has been following closely with Dr. Modi secondary to a suspected colon mass and underwent a colonoscopy recently and is awaiting an EGD. According to the patient she was told she is "clear". Yesterday she underwent 2 units of PRBC transfusion. While she was there she said she just didn't feel good and has been having chest pain off an on for the previous 1-month. She also states she feels her heart racing at times and dizzy like she is going to pass out. She denies loss of consciousness. She is seen and examined sitting up in be d in no acute distress. Orthostatic vital signs are unremarkable. Telemetry tracings reveal episodes of paroxysmal atrial tachycardia. No ventricular arrhythmias noted. DIAGNOSTICS EKG reveals sinus mechanism with first-degree AV block, right bundle branch block and left anterior fascicular block. Chest xray mild cardiomegaly with no acute cardiopulmonary process. Laboratory reviewed, WBC 9.2, hemoglobin 11.5, platelets 307, d-dimer 0.35, sodium 141, potassium 4.7, creatinine 0.83, magnesium 2.0, cardiac enzymes negative 3, LDL 151, HDL 74 and triglycerides 175. She takes no daily cardiac medications. REVIEW OF SYSTEMS At the time of my exam: CONSTITUTIONAL: Denies fever or chills. CARDIOVASCULAR: Denies chest pain, shortness of breath, orthopnea, PND or palpitations. RESPIRATORY: Denies cough. GASTROINTESTINAL: Denies abdominal pain, diarrhea, constipation, nausea or vomiting. MUSCULOSKELETAL: Denies myalgias. NEUROLOGIC: Denies numbness, tingling or weakness. ENDOCRINE: Denies fatigue, weight change, polydipsia or polyurina. GENITOURINARY: Denies burning, hematuria or urgency with micturation. HEMATOLOGIC: Denies history of anemia or bleeding. PHYSICAL EXAMINATION Blood pressure 154/80 heart rate 68 afebrile and maintaining oxygen saturation on room air. CONSTITUTIONAL: No apparent distress. HEENT: Head is normocephalic. Pupils are equal, round. Sclerae anicteric. Mucous membranes of the mouth are moist. No JVD. No carotid bruit. CHEST EXAMINATION: Lungs are clear to auscultation. No chest wall tenderness is noted on palpation or with deep breathing. HEART EXAMINATION: Regular rate and rhythm. S1, S2 heard. No murmurs, gallops or rub. ABDOMEN: Soft, nontender. Positive bowel sounds. EXTREMITIES: 2+ peripheral pulses, no lower extremity edema and no calf tenderness. NEUROLOGIC EXAMINATION: Patient is awake, alert and oriented x3. ASSESSMENT Chest pain, atypical. An acute coronary event has been ruled out. Near syncope History of anemia status post transfusion Dyslipidemia PLAN An acute coronary event has been ruled out. Discontinue Nitropaste. Decrease aspirin to 81 mg daily. Obtain 2-D echocardiogram and Doppler study to assess cardiac structure and function. Interrogate loop recorder. Loop recorder interrogation is unremarkable she is stable from a cardiac perspective. Follow-up with Dr. Winn in the office. Thank you kindly for this consultation. Nurse Practitioner note has been reviewed, I agree with a documented findings and plan of care. Patient was seen and examined. 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 BLOOD TRANSFUSIONS FOR LOW HGB. History of Any Multi-Drug Resistant Organisms: MRSA Date of last positivie culture/infection: 08/10/19 MDRO Source:: URINE Past Surgical History: Appendectomy, Bowel Resection, Cholecystectomy, Ear Surgery, Hysterectomy, Orthopedic Surgery Additional Past Surgical History / Comment(s): frantz knee arthroscopy, hiatal [place] surgery, rt ear surgery to remove middle ear, lymph node biopsy right armpit Past Anesthesia/Blood Transfusion Reactions: Postoperative Nausea & Vomiting (PONV) Past Psychological History: Anxiety, Panic Disorder Smoking Status: Never smoker Past Alcohol Use History: None Reported Past Drug Use History: None Reported - Past Family History Mother Family Medical History: No Reported History Additional Family Medical History / Comment(s): . Medications and Allergies Home Medications Medication Instructions Recorded Confirmed Type lamoTRIgine [LaMICtal] 200 mg PO BID 09/26/18 12/19/19 History Topiramate 100 mg PO DAILY 12/19/18 12/19/19 History clonazePAM [KlonoPIN] 1.5 mg PO Q12H 04/20/19 12/19/19 History Ibuprofen [Motrin] 800 mg PO TID PRN 11/30/19 12/19/19 History Sertraline [Zoloft] 50 mg PO DAILY 11/30/19 12/19/19 History Topiramate 50 mg PO HS 12/19/19 12/19/19 History Allergies Allergy/AdvReac Type Severity Reaction Status Date / Time erythromycin base Allergy Rash/Hives Verified 12/19/19 17:33 iodine Allergy Anaphylaxis Verified 12/19/19 17:33 ketorolac tromethamine Allergy Rash/Hives/ Verified 12/19/19 17:33 [From Toradol] hallucinati ons Penicillins Allergy Anaphylaxis Verified 12/19/19 17:33 azithromycin AdvReac red face Verified 12/19/19 17:33 lorazepam [From Ativan] AdvReac Hallucinati Verified 12/19/19 17:33 ons Physical Exam Vitals: Vital Signs Temp Pulse Pulse Pulse Pulse Pulse Resp 12/20/19 08:55 68 68 56 L 12/20/19 08:02 97.6 F 59 L 16 12/20/19 03:00 97.4 F L 62 12/19/19 21:00 97.8 F 63 12/19/19 20:50 63 18 12/19/19 20:21 97.8 F 63 12/19/19 18:01 98.5 F 60 18 12/19/19 15:09 98.1 F 63 20 BP BP BP BP BP Pulse Ox 12/20/19 08:55 154/80 155/77 156/77 12/20/19 08:02 143/77 98 12/20/19 03:00 110/63 93 L 12/19/19 21:00 166/84 96 12/19/19 20:50 12/19/19 20:21 166/84 96 12/19/19 18:01 132/67 98 12/19/19 15:09 152/78 100 Intake and Output 12/19/19 12/20/19 12/20/19 22:59 06:59 14:59 Intake Total 600 0 Output Total 300 0 Balance 300 0 Intake: Oral 600 0 Output: Urine 300 0 Other: # Voids 1 0 Weight 77.111 kg Results 12/19/19 15:48 12/19/19 15:48 Cardiac Enzymes 12/19/19 12/19/19 12/19/19 Range/Units 15:48 15:48 18:38 AST 44 H (14-36) U/L Troponin I <0.012 <0.012 (0.000-0.034) ng/mL 12/19/19 Range/Units 22:29 AST (14-36) U/L Troponin I <0.012 (0.000-0.034) ng/mL Coagulation 12/19/19 Range/Units 15:48 PT 9.4 (9.0-12.0) sec APTT 23.1 (22.0-30.0) sec Lipids 12/19/19 Range/Units 15:48 Triglycerides 175 H (<150) mg/dL Cholesterol 260 H (<200) mg/dL HDL Cholesterol 74 H (40-60) mg/dL CBC 12/19/19 Range/Units 15:48 WBC 9.2 (3.8-10.6) k/uL RBC 4.41 (3.80-5.40) m/uL Hgb 11.5 (11.4-16.0) gm/dL Hct 37.2 (34.0-46.0) % Plt Count 307 (150-450) k/uL Comprehensive Metabolic Panel 12/19/19 Range/Units 15:48 Sodium 141 (137-145) mmol/L Potassium 4.7 (3.5-5.1) mmol/L Chloride 113 H (98-107) mmol/L Carbon Dioxide 23 (22-30) mmol/L BUN 23 H (7-17) mg/dL Creatinine 0.83 (0.52-1.04) mg/dL Glucose 82 (74-99) mg/dL Calcium 9.4 (8.4-10.2) mg/dL AST 44 H (14-36) U/L ALT 16 (4-34) U/L Alkaline Phosphatase 158 H (38-126) U/L Total Protein 7.3 (6.3-8.2) g/dL Albumin 4.2 (3.5-5.0) g/dL Current Medications Generic Name Dose Route Start Last Admin Trade Name Alejandra PRN Reason Stop Dose Admin Aspirin 325 mg 12/20/19 09:00 12/20/19 09:33 Aspirin 325 Mg Tab PO 325 mg DAILY EVERARDO Administration Clonazepam 1.5 mg 12/19/19 22:00 12/20/19 09:33 Clonazepam 0.5 Mg Tab PO 1.5 mg Q12H EVERARDO Administration Ibuprofen 800 mg 12/19/19 22:00 Ibuprofen 800 Mg Tab PO TID PRN Pain Lamotrigine 200 mg 12/19/19 22:00 12/20/19 09:34 Lamotrigine 100 Mg Tab PO 200 mg BID EVERARDO Administration Nitroglycerin 0.4 mg 12/19/19 17:25 Nitroglycerin Sl Tabs 0.4 Mg Tab SUBLINGUAL Q5M PRN Chest Pain Nitroglycerin 1 inch 12/19/19 18:00 12/20/19 05:04 Nitroglycerin Oint 1 Inch/Gm Packet TOPICAL 1 inch Q6HR EVERARDO Administration Sertraline HCl 50 mg 12/20/19 09:00 12/20/19 09:33 Sertraline 50 Mg Tab PO 50 mg DAILY EVERARDO Administration Topiramate 50 mg 12/19/19 22:00 12/19/19 23:27 Topiramate 25 Mg Tab PO 50 mg HS EVERARDO Administration Topiramate 100 mg 12/20/19 09:00 12/20/19 09:33 Topiramate 100 Mg Tab PO 100 mg DAILY EVERARDO Administration Intake and Output 12/19/19 12/20/19 12/20/19 22:59 06:59 14:59 Intake Total 600 0 Output Total 300 0 Balance 300 0 Intake: Oral 600 0 Output: Urine 300 0 Other: # Voids 1 0 Weight 77.111 kg 12/19/19 15:48 12/19/19 15:48
[2019-12-20 13:11] LABS: Anisocytosis Slight; Basophils % (A) 1 %; Eosinophils # (A) 0.1 k/uL (0-0.7); Eosinophils % (A) 2 %; HCT 35.3 % (34.0-46.0); HGB 10.8 gm/dL (11.4-16.0); Hypochromasia Moderate; Lymphocytes # (A) 1.9 k/uL (1.0-4.8); Lymphocytes % (A) 26 %; MCH 25.6 pg (25.0-35.0); MCHC 30.7 g/dL (31.0-37.0); MCV 83.3 fL (80.0-100.0); Mean Platelet Volume 7.9; Monocytes # (A) 0.3 k/uL (0-1.0); Monocytes % (A) 4 %; Neutrophils # (A) 4.8 k/uL (1.3-7.7); Neutrophils % (A) 66 %; Platelet Count 264 k/uL (150-450); Poikilocytosis Slight; RBC 4.23 m/uL (3.80-5.40); RDW 16.6 % (11.5-15.5); WBC 7.2 k/uL (3.8-10.6)
[2019-12-20] MEDS: SODIUM FERRIC GLUCONAT-SUCROSE 125 MG in SODIUM CHLORIDE 0.9% 100 ML IVPB SCH (13:22)
[2019-12-20 13:39] LABS: Calcium 9.6 mg/dL (8.4-10.2); Potassium 4.8 mmol/L (3.5-5.1)
--- NOTE | 2019-12-20 14:05 | P.HPIM ---
History of Present Illness H&P Date: 12/20/19 Chief Complaint: Chest discomfort History and Physical and Discharge Summary This is a 54-year-old female with past medical history of seizure disorder, anxiety, panic disorder, colon cancer with history of colectomy, chronic anemia, fibromyalgia and multiple other medical issues. Follows with Dr. Schilling and Dr. Modi. Recently underwent colonoscopy regarding suspected colon mass, reporting it was clear and is scheduled for an EGD. The patient received 2 units packed RBC transfused yesterday-Labwork from [facility],developed mild chest discomfort, fluctuating heart racing and dizziness during the transfusion and sent to the ER. While in the ER patient had a near syncopal episode and up to the bathroom. No trauma, no asymmetrical weakness, no loss of sensation, no focal deficits, lightheadedness or dizziness. Orthostatic vital signs negative. Chronic generalized fatigue. Chest x-ray reported low lung volumes, mild cardiomegaly without suspicious acute pulmonary process, no significant change from prior. EKG reported sinus rhythm with first degree AV block, right bundle branch block, left anterior fascicular block. Telemetry reporting paroxysmal atrial tachycardia. Troponins negative 3. Hematology, coagulation unr emarkable. Sodium 141, potassium 4.7, chloride 113, BUN 23, creatinine 0.83,, T bili normal, mild elevation of AST 44 and alk phos 158. Triglycerides 175, cholesterol 260, LDL of 51, HDL 74. UA reported 10 urine WBCs, large leukocytes, negative nitrates. Afebrile. Cardiology consulted. Review of Systems ROS Statement: Those systems with pertinent positive or pertinent negative responses have been documented in the HPI. ROS Other: All systems not noted in ROS Statement are negative. 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 BLOOD TRANSFUSIONS FOR LOW HGB. History of Any Multi-Drug Resistant Organisms: MRSA Date of last positivie culture/infection: 08/10/19 MDRO Source:: URINE Past Surgical History: Appendectomy, Bowel Resection, Cholecystectomy, Ear Surgery, Hysterectomy, Orthopedic Surgery Additional Past Surgical History / Comment(s): frantz knee arthroscopy, hiatal hernia surgery, rt ear surgery to remove middle ear, lymph node biopsy right armpit Past Anesthesia/Blood Transfusion Reactions: Postoperative Nausea & Vomiting (PO NV) Past Psychological History: Anxiety, Panic Disorder Smoking Status: Never smoker Past Alcohol Use History: None Reported Past Drug Use History: None Reported - Past Family History Mother Family Medical History: No Reported History Additional Family Medical History / Comment(s): . Medications and Allergies Home Medications Medication Instructions Recorded Confirmed Type lamoTRIgine [LaMICtal] 200 mg PO BID 09/26/18 12/19/19 History Topiramate 100 mg PO DAILY 12/19/18 12/19/19 History clonazePAM [KlonoPIN] 1.5 mg PO Q12H 04/20/19 12/19/19 History Ibuprofen [Motrin] 800 mg PO TID PRN 11/30/19 12/19/19 History Sertraline [Zoloft] 50 mg PO DAILY 11/30/19 12/19/19 History Topiramate 50 mg PO HS 12/19/19 12/19/19 History Allergies Allergy/AdvReac Type Severity Reaction Status Date / Time erythromycin base Allergy Rash/Hives Verified 12/19/19 17:33 iodine Allergy Anaphylaxis Verified 12/19/19 17:33 ketorolac tromethamine Allergy Rash/Hives/ Verified 12/19/19 17:33 [From Toradol] hallucinati ons Penicillins Allergy Anaphylaxis Verified 12/19/19 17:33 azithromycin AdvReac red face Verified 12/19/19 17:33 lorazepam [From Ativan] AdvReac Hallucinati Verified 12/19/19 17:33 ons Physical Exam Vitals: Vital Signs Temp Pulse Pulse Pulse Pulse Pulse Resp 12/20/19 08:55 68 68 56 L 12/20/19 08:02 97.6 F 59 L 16 12/20/19 03:00 97.4 F L 62 12/19/19 21:00 97.8 F 63 12/19/19 20:50 63 18 12/19/19 20:21 97.8 F 63 12/19/19 18:01 98.5 F 60 18 12/19/19 15:09 98.1 F 63 20 BP BP BP BP BP Pulse Ox 12/20/19 08:55 154/80 155/77 156/77 12/20/19 08:02 143/77 98 12/20/19 03:00 110/63 93 L 12/19/19 21:00 166/84 96 12/19/19 20:50 12/19/19 20:21 166/84 96 12/19/19 18:01 132/67 98 12/19/19 15:09 152/78 100 Intake and Output 12/19/19 12/20/19 12/20/19 22:59 06:59 14:59 Intake Total 600 0 Output Total 300 0 Balance 300 0 Intake: Oral 600 0 Output: Urine 300 0 Other: # Voids 1 0 Weight 77.111 kg PHYSICAL EXAM: VITAL SIGNS: As above GENERAL: Sitting up in bed, in no acute distress,speech fluent HEENT: Conjunctivae normal. eyes normal. Oral mucosa moist NECK: No JVD. No thyroid enlargement. No LNs CARDIOVASCULAR: S1, S2 regular.No murmur RESPIRATION: Breath sounds diminished in the bases. No rhonchi or crackles. No bronchial breathing. ABDOMEN: Soft, nontender . No guarding. no masses palpable.Bowel sounds heard. LEGS: No edema. no swelling PSYCHIATRY: Alert and oriented X3, mood and affect normal. NERVOUS SYSTEM: Cranial N 2-12 grossly normal. Moves all 4 limbs. Diffuse weakness, No focal deficits. Strength and sensation grossly intact. Skin: Warm and dry, no rash Lymphatic system. No LN neck. Results CBC & Chem 7: 12/20/19 12:50 12/20/19 12:50 Labs: Abnormal Lab Results - Last 24 Hours (Table) 12/19/19 12/19/19 12/19/19 Range/Units 15:48 15:48 15:48 MCHC 30.9 L (31.0-37.0) g/dL RDW 16.3 H (11.5-15.5) % Chloride 113 H (98-107) mmol/L BUN 23 H (7-17) mg/dL AST 44 H (14-36) U/L Alkaline Phosphatase 158 H (38-126) U/L Triglycerides (<150) mg/dL Cholesterol (<200) mg/dL LDL Cholesterol, Calc (0-99) mg/dL HDL Cholesterol (40-60) mg/dL Ur Leukocyte Esterase Large H (Negative) Urine WBC 10 H (0-5) /hpf Ur Squamous Epith Cells 6 H (0-4) /hpf Urine Bacteria Rare H (None) /hpf Urine Mucus Rare H (None) /hpf 12/19/19 Range/Units 15:48 MCHC (31.0-37.0) g/dL RDW (11.5-15.5) % Chloride (98-107) mmol/L BUN (7-17) mg/dL AST (14-36) U/L Alkaline Phosphatase (38-126) U/L Triglycerides 175 H (<150) mg/dL Cholesterol 260 H (<200) mg/dL LDL Cholesterol, Calc 151 H (0-99) mg/dL HDL Cholesterol 74 H (40-60) mg/dL Ur Leukocyte Esterase (Negative) Urine WBC (0-5) /hpf Ur Squamous Epith Cells (0-4) /hpf Urine Bacteria (None) /hpf Urine Mucus (None) /hpf Thrombosis Risk Factor Assmnt - Choose All That Apply Each Factor Represents 1 point: Obesity (BMI >25) Each Risk Factor Represents 5 Points: Elective major lower extremity arthoplasty Thrombosis Risk Factor Assessment Total Risk Factor Score: 6 Thrombosis Risk Factor Assessment Level: High Risk Assessment and Plan Assessment: Chest pressure, atypical, near syncope, status post transfusion of packed RBCs, possible mild blood transfusion reaction. Acute coronary event ruled out as per cardiology Paroxysmal atrial tachycardia History of colon cancer with colectomy Chronic anemia Fibromyalgia History of syncope Anxiety, panic disorder PONV Dyslipidemia Plan: Continue on current medication regime ,monitoring and symptomatic treatment. Patient will be discharged home today pending interrogation recorder, echo, final DC recommendations and clearance from cardiology. Patient was initially scheduled for IV Venofer OP, will transfuse IP. Dr. Medrano obtaining recent [facility] lab work. The impression and plan of care has been dictated as directed. : I performed a history and examination of this patient, discussed the same with the dictator. I agree with the dictator's note ,documented as a scribe. Any additional findings or plans will be noted.
--- NOTE | 2019-12-20 16:15 | CT ---
EXAMINATION TYPE: CT brain wo con DATE OF EXAM: 12/20/2019 COMPARISON: 11/30/2019 INDICATION: Weakness DLP: 998.5 mGycm, Automated exposure control for dose reduction was used. CONTRAST: None CT of the brain is performed utilizing 3 mm thick sections through the posterior fossa and 3 mm thick sections through the remaining calvarium. Study is performed within 24 hours of arrival to the hosp [facility]. No abnormal hyperdensity is present to suggest an acute intracranial hemorrhage. No mass lesion is evident. No acute infarcts are evident. Ventricles and sulci are appropriate for the patient age. Paranasal sinuses and mastoid air cells within the [id number] are clear. Hyperostosis frontalis internus is present, a normal variant. Prior right mastoidectomy. IMPRESSIONS: 1. Normal CT Brain
--- NOTE | 2019-12-20 18:46 | P.CNNES ---
History of Present Illness Consult date: 12/20/19 Requesting physician: Josephine Bender Reason for Consult: Syncope/passed out/fall History of Present Illness: Patient is a 54-year-old female came to the hospital yesterday at 3:05 PM for a syncopal spell. Patient states she has been low on iron. She was seen by planning engineer, who gave her iron infusion drips but her hemoglobin was still low. Patient underwent blood transfusion yesterday. She was not feeling well a fterwards since started having pain in the chest and whole body was not feeling well. Patient states that yesterday after the transfusion, she had to go to the bathroom, got up and was heading to the bathroom when she became dizzy lightheaded and then she passed out. She did not bite her tongue or lost control of urine or any convulsive activity. Vital signs on arrival was blood pressure 152/78, pulse is 63 temperature 98.1. Blood test shows normal CBC, PT/PTT, Chem-20 with mildly elevated AST 44. Total cholesterol 260, LDL 151, HDL 74 and triglycerides and 75. UA with large leukocyte Estrace, 10 WBC and rare bacteria. Patient B12 409 11/28/2019. Folate 16.5, vitamin D is mildly low 18. TFTs normal. Chest x-ray showed low lung volumes and mild cardiomegaly without suspicious acute pulmonary process. EKG with normal sinus rhythm with first-degree AV block. Right bundle branch block. Left anterior fascicular block. Patient had a recent computed tomography scan of head normal on 11/30/2019 performed for headache dizziness. Patient had orthostatics checked, in which her supine blood pressure 156/77 with pulse of 56. On sitting was 154/80 with pulse of 68 and on standing was 155/77 with pulse of 68. Patient says that she had other syncopal spells in the recent past also on 12/15/2019 and 12/17/2019. She again gets presyncopal symptoms with dizziness, lightheadedness and then passes out. She is always standing with these syncopal spells. She relates her syncopal symptoms to the amount of exhaustion. If she is exhausted the whole day, then ends up with a syncopal spell. Patient also has history of seizure disorder since she was age 10. She states she had grand mal seizures, petit mal seizures. She was on Depakote until 1990. Now she is on Lamictal 200 mg twice a day and Topamax 100 mg in the morning, 50 mg at bedtime. She is also on Klonopin 1.5 mg twice a day. Patient states her seizures are diagnosed as "stress seizures" by Dr. Harmon at [facility]. Patient states that she has not had any seizure for last 7 months. She describes her seizures as "stiffening, jerking, clenching her teeth" lasting for 2-3 minutes. Patient states that prior to the last seizure, she was having the seizures 3-4 times a week. She does not know why the seizures stopped, she believes it is from less amount of stress. She now follows up with Dr. Brock. Patient denies tobacco or alcohol use. Denies diabetes. Review of Systems Patient complains of being very tired, fatigued sometimes shaky lightheaded. 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 BLOOD TRANSFUSIONS FOR LOW HGB. History of Any Multi-Drug Resistant Organisms: MRSA Date of last positivie culture/infection: 08/10/19 MDRO Source:: URINE Past Surgical History: Appendectomy, Bowel Resection, Cholecystectomy, Ear Surgery, Hysterectomy, Orthopedic Surgery Additional Past Surgical History / Comment(s): frantz knee arthroscopy, hiatal hernia surgery, rt ear surgery to remove middle ear, lymph node biopsy right armpit Past Anesthesia/Blood Transfusion Reactions: Postoperative Nausea & Vomiting (PONV) Past Psychological History: Anxiety, Panic Disorder Smoking Status: Never smoker Past Alcohol Use History: None Reported Past Drug Use History: None Reported - Past Family History Mother Family Medical History: No Reported History Additional Family Medical History / Comment(s): . Medications and Allergies Home Medications Medication Instructions Recorded Confirmed Type lamoTRIgine [LaMICtal] 200 mg PO BID 09/26/18 12/19/19 History Topiramate 100 mg PO DAILY 12/19/18 12/19/19 History clonazePAM [KlonoPIN] 1.5 mg PO Q12H 04/20/19 12/19/19 History Ibuprofen [Motrin] 800 mg PO TID PRN 11/30/19 12/19/19 History Sertraline [Zoloft] 50 mg PO DAILY 11/30/19 12/19/19 History Topiramate 50 mg PO HS 12/19/19 12/19/19 History Allergies Allergy/AdvReac Type Severity Reaction Status Date / Time erythromycin base Allergy Rash/Hives Verified 12/19/19 17:33 iodine Allergy Anaphylaxis Verified 12/19/19 17:33 ketorolac tromethamine Allergy Rash/Hives/ Verified 12/19/19 17:33 [From Toradol] hallucinati ons Penicillins Allergy Anaphylaxis Verified 12/19/19 17:33 azithromycin AdvReac red face Verified 12/19/19 17:33 lorazepam [From Ativan] AdvReac Hallucinati Verified 12/19/19 17:33 ons Physical Examination - Vital Signs Vital Signs: Vital Signs Temp Pulse Pulse Pulse Pulse Pulse Resp 12/20/19 14:55 97.3 F L 70 12/20/19 08:55 68 68 56 L 12/20/19 08:02 97.6 F 59 L 16 12/20/19 03:00 97.4 F L 62 12/19/19 21:00 97.8 F 63 12/19/19 20:50 63 18 12/19/19 20:21 97.8 F 63 12/19/19 18:01 98.5 F 60 18 BP BP BP BP BP Pulse Ox 12/20/19 14:55 130/76 100 12/20/19 08:55 154/80 155/77 156/77 12/20/19 08:02 143/77 98 12/20/19 03:00 110/63 93 L 12/19/19 21:00 166/84 96 12/19/19 20:50 12/19/19 20:21 166/84 96 12/19/19 18:01 132/67 98 Intake and Output 12/20/19 12/20/19 12/20/19 06:59 14:59 22:59 Intake Total 0 Output Total 0 Balance 0 Intake: Oral 0 Output: Urine 0 Other: # Voids 0 1 On examination patient is a middle aged female, in no acute distress. Patient is alert awake oriented to time place and person. Speech and language functions are normal. Attention and concentration fund of knowledge is adequate. On cranial examination pupils are round and reactive to light, visual moreno are full on confrontation, extraocular muscles are intact with no nystagmus. Face is symmetric, tongue protrudes the midline. Palatal elevation and sensation normal. Hearing and shoulder shrug normal. On muscle strength testing there is no pronator drift. Patient has mild asterixis of the left hand. The strength is normal in the right arm and both legs. She has some giveaway weakness in the left arm. Sensory touch is equal. No ataxia for [id number] testing. Tone and bulk of muscles normal. Reflexes are 1+ and plantars are downgoing. There is no carotid bruit, S1 and S2 audible. Peripheral pulses present. Results - Laboratory Findings CBC and BMP: 12/20/19 12:50 12/20/19 12:50 Abnormal Lab Findings: Abnormal Labs 12/19/19 12/19/19 12/19/19 15:48 15:48 15:48 Hgb MCHC 30.9 L RDW 16.3 H Chloride 113 H BUN 23 H AST 44 H Alkaline Phosphatase 158 H Triglycerides Cholesterol LDL Cholesterol, Calc HDL Cholesterol Ur Leukocyte Esterase Large H Urine WBC 10 H Ur Squamous Epith Cells 6 H Urine Bacteria Rare H Urine Mucus Rare H 12/19/19 12/20/19 12/20/19 15:48 12:50 12:50 Hgb 10.8 L MCHC 30.7 L RDW 16.6 H Chloride 112 H BUN 19 H AST Alkaline Phosphatase Triglycerides 175 H Cholesterol 260 H LDL Cholesterol, Calc 151 H HDL Cholesterol 74 H Ur Leukocyte Esterase Urine WBC Ur Squamous Epith Cells Urine Bacteria Urine Mucus Assessment and Plan Assessment: * Syncopal spells, likely vasovagal. * History of seizure disorder since age 10. She has been diagnosed with "stress seizures". Patient is seizure free for last 7 months. * Anemia, iron deficiency * Chest pain Plan: * No other neurological workup indicated. * If these syncopal spells persist, then consider tilt table test. * Patient is seen by cardiology, diagnosed with atypical chest pain. * Hydration. * Neurologically clear. * Patient to follow up with her neurologist as scheduled.
[2019-12-20] MEDS: TOPIRAMATE 25 MG TAB PO SCH (21:04)
[2019-12-21 07:45] VITALS: BP 130/65; PULSE 59; TEMP 97.9
[2019-12-21] MEDS: SERTRALINE 50 MG TAB PO SCH (07:45)
[2019-12-21] MEDS: lamoTRIgine 100 MG TAB PO SCH (07:46)
[2019-12-21] MEDS: TOPIRAMATE 100 MG TAB PO SCH (07:46)
[2019-12-21 08:34] LABS: Anisocytosis Slight; Basophils % (A) 0 %; Eosinophils # (A) 0.2 k/uL (0-0.7); Eosinophils % (A) 3 %; HCT 38.5 % (34.0-46.0); HGB 11.7 gm/dL (11.4-16.0); Hypochromasia Marked; Lymphocytes # (A) 1.8 k/uL (1.0-4.8); Lymphocytes % (A) 24 %; MCH 25.6 pg (25.0-35.0); MCHC 30.5 g/dL (31.0-37.0); MCV 84.1 fL (80.0-100.0); Mean Platelet Volume 7.6; Monocytes # (A) 0.3 k/uL (0-1.0); Monocytes % (A) 4 %; Neutrophils # (A) 4.9 k/uL (1.3-7.7); Neutrophils % (A) 68 %; Platelet Count 298 k/uL (150-450); RBC 4.57 m/uL (3.80-5.40); RDW 16.6 % (11.5-15.5); WBC 7.2 k/uL (3.8-10.6)
[2019-12-21 08:44] LABS: Calcium 9.5 mg/dL (8.4-10.2); Potassium 4.6 mmol/L (3.5-5.1)
[2019-12-21] MEDS ORDERED: ASPIRIN 81 MG PO SCH (09:00)
[2019-12-21] MEDS: SODIUM FERRIC GLUCONAT-SUCROSE 125 MG in SODIUM CHLORIDE 0.9% 100 ML IVPB SCH (09:38)
[2019-12-21] MEDS: clonazePAM 0.5 MG TAB PO SCH (09:38)
--- NOTE | 2019-12-21 10:59 | P.PN ---
Subjective HISTORY OF PRESENTING ILLNESS This is a pleasant 54-year-old female past medical history significant for anemia, fibromyalgia and seizure disorder. She also has frequent episodes of syncope prompting a loop recorder implantation. She follows in the office with Dr. Winn. She is seen and examined sitting up in bed in no acute distress. She states yesterday while she was in the bathroom she had an episode where she became dizzy and passed out. She states she struck her head. Orthostatic vital signs were obtained and unremarkable immediately thereafter. Telemetry tracings were unremarkable throughout the event. Neurology has seen the patient in consultation. Loop recorder interrogation yesterday was unremarkable. There is no evidence of cardiogenic syncope. Blood pressure 130/65 heart rate 59 afebrile maintaining oxygen saturation on room air. Laboratory data reviewed, hemoglobin 11.7, platelets 298, sodium 142, potassium 4.6 and creatinine 1.03. PHYSICAL EXAMINATION CONSTITUTIONAL: No apparent distress. HEENT: Head is normocephalic. Pupils are equal, round. Sclerae anicteric. Mucous membranes of the mouth are moist. No JVD. No carotid bruit. CHEST EXAMINATION: Lungs are clear to auscultation. No chest wall tenderness is noted on palpation or with deep breathing. HEART EXAMINATION: Regular rate and rhythm. S1, S2 heard. No murmurs, gallops or rub. EXTREMITIES: 2+ peripheral pulses, no lower extremity edema and no calf tenderness. ASSESSMENT Chest pain, atypical. An acute coronary event has been ruled out. Near syncope History of anemia status post transfusion Dyslipidemia PLAN Stable for discharge from a cardiac perspective. No evidence of cardiogenic syncope. No sustained arrhythmias noted. Ongoing medical management and evaluation. Follow-up with Dr. Winn upon discharge. Nurse Practitioner note has been reviewed, I agree with a documented findings and plan of care. Patient was seen and examined. Objective - Vital Signs Vital signs: Vital Signs Temp 97.9 F 12/21/19 07:43 Pulse 59 L 12/21/19 07:43 Resp 16 12/21/19 09:00 BP 130/65 12/21/19 07:43 Pulse Ox 98 12/21/19 07:43 Intake & Output 12/20/19 12/21/19 12/21/19 18:59 06:59 18:59 Intake Total 350 240 Output Total 620 Balance -270 240 Intake: Oral 350 240 Output: Urine 620 Other: Voiding Method Toilet Toilet # Voids 1 1 1 - Labs CBC & Chem 7: 12/21/19 08:09 12/21/19 08:09 Labs: Abnormal Lab Results - Last 24 Hours (Table) 12/20/19 12/20/19 12/21/19 Range/Units 12:50 12:50 08:09 Hgb 10.8 L (11.4-16.0) gm/dL MCHC 30.7 L 30.5 L (31.0-37.0) g/dL RDW 16.6 H 16.6 H (11.5-15.5) % Chloride 112 H (98-107) mmol/L BUN 19 H (7-17) mg/dL Glucose (74-99) mg/dL 12/21/19 Range/Units 08:09 Hgb (11.4-16.0) gm/dL MCHC (31.0-37.0) g/dL RDW (11.5-15.5) % Chloride 109 H (98-107) mmol/L BUN 18 H (7-17) mg/dL Glucose 105 H (74-99) mg/dL
--- NOTE | 2019-12-21 13:16 | P.DS ---
Providers Date of admission: 12/19/19 17:25 Expected date of discharge: 12/21/19 Attending physician: Scott Medrano Consults: 12/19/19 17:25 Consult Physician Urgent Consulting Provider: Foster Victor Consult Reason/Comments: Chest pain and syncope Do you want consulting provider notified?: Yes 12/20/19 14:53 Consult Physician Stat Consulting Provider: Shireen Crook Consult Reason/Comments: syncope/passed out/fall Do you want consulting provider notified?: Yes Primary care physician: Scott Medrano Hospital Course: Final Diagnoses: Chest pressure, atypical, , status post transfusion of packed RBCs, possible mild blood transfusion reaction. Acute coronary event ruled out as per cardiology near syncope, possible vasovagal Paroxysmal atrial tachycardia History of stress seizures last one reported as 6 months ago History of colon cancer with colectomy Chronic anemia Fibromyalgia History of syncope Anxiety, panic disorder PONV Dyslipidemia Hospital course:This is a 54-year-old female with past medical history of seizure disorder, anxiety, panic disorder, colon cancer with history of colectomy, chronic anemia, fibromyalgia and multiple other medical issues. Follows with Dr. Schilling and Dr. Modi. Recently underwent colonoscopy regarding suspected colon mass, reporting it was clear and is scheduled for an EGD. The patient received 2 units packed RBC transfused yesterday-Labwork from [facility],developed mild chest discomfort, fluctuating heart racing and dizziness during the transfusion and sent to the ER. While in the ER patient had a near s yncopal episode and up to the bathroom. No trauma, no asymmetrical weakness, no loss of sensation, no focal deficits, lightheadedness or dizziness. Orthostatic vital signs negative. Chronic generalized fatigue. Chest x-ray reported low lung volumes, mild cardiomegaly without suspicious acute pulmonary process, no significant change from prior. EKG reported sinus rhythm with first degree AV block, right bundle branch block, left anterior fascicular block. Telemetry reporting paroxysmal atrial tachycardia. Troponins negative 3. Hematology, coagulation unremarkable. Sodium 141, potassium 4.7, chloride 113, BUN 23, creatinine 0.83,, T bili normal, mild elevation of AST 44 and alk phos 158. Triglycerides 175, cholesterol 260, LDL of 51, HDL 74. UA reported 10 urine WBCs, large leukocytes, negative nitrates. Afebrile. Cardiology consulted. Discharge held yesterday. Patient in the afternoon proceeded to have another near syncopal/syncopal event. Reports she passed out -was able to pull the call light in the bathroom, hitting her head. Brain CT reported normal. Telemetry reported uneventful.Negative for orthostatic hypotension.VSS. Evaluated by neurology and cardiology. Troponin series negative. Loop recorder interrogation reported as unremarkable. Hemoglobin 11.7, platelets 298, creatinine 1.03. Significant clinical improvement. Cleared by both cardiology and neurology for discharge. Patient is being discharged home in a stable condition with guarded prognosis. The impression and plan of care has been dictated as directed. : I performed a history and examination of this patient, discussed the same with the dictator. I agree with the dictator's note ,documented as a scribe. Any additional findings or plans will be noted. Patient Condition at Discharge: Stable Plan - Discharge Summary Discharge Rx Participant: No New Discharge Prescriptions: Continue lamoTRIgine [LaMICtal] 200 mg PO BID Topiramate 100 mg PO DAILY clonazePAM [KlonoPIN] 1.5 mg PO Q12H Ibuprofen [Motrin] 800 mg PO TID PRN PRN Reason: Pain Topiramate 50 mg PO HS Changed Sertraline [Zoloft] 25 mg PO DAILY #0 Discharge Medication List lamoTRIgine [LaMICtal] 200 mg PO BID 09/26/18 [History] Topiramate 100 mg PO DAILY 12/19/18 [History] clonazePAM [KlonoPIN] 1.5 mg PO Q12H 04/20/19 [History] Ibuprofen [Motrin] 800 mg PO TID PRN 11/30/19 [History] Topiramate 50 mg PO HS 12/19/19 [History] Sertraline [Zoloft] 25 mg PO DAILY #0 12/21/19 [Rx] Follow up Appointment(s)/Referral(s): Dominick Winn MD [STAFF PHYSICIAN] - 2 Weeks Scott Medrano MD [Primary Care Provider] - 3 Days Palma Modi DO [Doctor of Osteopathic Medicine] - 1 Week (As previously scheduled-outpatient endoscopy) Ambulatory/Diagnostic Orders: Complete Blood Count w/diff [LAB.AMB] Time Frame: 3 Days, Location: None Selected Activity/Diet/Wound Care/Special Instructions: Next Iron infusion scheduled at [facility] on December 26 at 1230pm.
--- NOTE | 2019-12-21 19:18 | ECHOF ---
Referral Reason:near syncope MEASUREMENTS -------- HEIGHT: 152.4 cm WEIGHT: 77.1 kg BP: 143/77 IVSd: 1.1 cm (0.6 - 1.1) LVIDd: 4.1 cm (3.9 - 5.3) LVPWd: 0.9 cm (0.6 - 1.1) EDV(Teich): 73 ml IVSs: 1.2 cm LVIDs: 3.0 cm LVPWs: 1.1 cm %IVS Thck: 1 % ESV(Teich): 35 ml EF(Teich): 53 % %FS: 27 % SV(Teich): 39 ml LA Diam: 3.5 cm (2.7 - 3.8) RVIDd: 3.4 cm (< 3.3) LALs A4C: 5.0 cm LAAs A4C: 17.7 cm LAESV A-L A4C: 53 ml LAESV MOD A4C: 50 ml LALs A2C: 4.3 cm LAAs A2C: 14.6 cm LAESV A-L A2C: 42 ml LAESV MOD A2C: 40 ml LAESV(A-L): 50 ml LAESV Index (A-L): 28.95 ml/m Ao Diam: 2.7 cm (2.0 - 3.7) LA Diam: 3.4 cm (2.7 - 3.8) AV Cusp: 1.8 cm (1.5 - 2.6) EPSS: 0.8 cm MV E Eamon: 0.76 m/s MV DecT: 227 ms MV Dec Collier: 3.4 m/s MV A Eamon: 0.87 m/s MV E/A Ratio: 0.87 MV PHT: 66 ms AV Vmax: 1.36 m/s AV maxP.40 mmHg AR Vmax: 4.04 m/s AR maxP.32 mmHg AR PHT: 652 ms AR Dec Time: 2249 ms AR Dec Collier: 1.8 m/s TR Vmax: 2.53 m/s TR maxP.62 mmHg RAP: 5.00 mmHg RVSP: 30.62 mmHg MV EF SLOPE: 65.33 mm/s (70 - 150) MV EXCURSION: 12.15 mm (> 18.000) FINDINGS -------- Sinus rhythm. This was a technically good study. The left ventricular size is normal. Overall left ventricular systolic function is normal with, an EF between 55 - 60 %. The diastolic filling pattern is normal for the age of the patient 14.50. The right ventricle is normal in size. The left atrial size is normal. The right atrial size is normal. There is mild aortic regurgitation. Mild mitral regurgitation is present. Mild tricuspid regurgitation present. Right ventricular systolic pressure is normal at < 35 mmHg. There is no pulmonic regurgitation present. The aortic root size is normal. There is no pericardial effusion. CONCLUSIONS -------- 1. The left ventricular size is normal. 2. Overall left ventricular systolic function is normal with, an EF between 55 - 60 %. 3. The diastolic filling pattern is normal for the age of the patient 14.50 4. The right ventricle is normal in size. 5. The left atrial size is normal. 6. The right atrial size is normal. 7. There is mild aortic regurgitation. 8. Mild mitral regurgitation is present. 9. Mild tricuspid regurgitation present. [employer] LAYER HELPER: Zina Horton RDCS
== END 2019-12-21 15:25 | disposition home health service (06) ==
LOC: EC 15:05 → 3NCARDOBS 17:25
PROVIDERS: ADMIT Family Medicine; ATTEND Family Medicine
DX: R07.89 Other chest pain (principal); I45.2 Bifascicular block; I47.1 Supraventricular tachycardia; I44.0 Atrioventricular block, first degree; R55 Syncope and collapse; D50.9 Iron deficiency anemia, unspecified; I51.7 Cardiomegaly; E78.5 Hyperlipidemia, unspecified; M79.7 Fibromyalgia; L74.8 Other eccrine sweat disorders; G43.909 Migraine, unspecified, not intractable, without status migrainosus; G40.909 Epilepsy, unspecified, not intractable, without status epilepticus; G47.00 Insomnia, unspecified; L40.9 Psoriasis, unspecified; Z98.890 Other specified postprocedural states; Z90.49 Acquired absence of other specified parts of digestive tract; Z90.710 Acquired absence of both cervix and uterus; F41.9 Anxiety disorder, unspecified; F41.0 Panic disorder [episodic paroxysmal anxiety]; R53.82 Chronic fatigue, unspecified; Z85.038 Personal history of other malignant neoplasm of large intestine; Z87.01 Personal history of pneumonia (recurrent); Z86.14 Personal history of Methicillin resistant Staphylococcus aureus infection; Z79.899 Other long term (current) drug therapy; Z79.1 Long term (current) use of non-steroidal anti-inflammatories (NSAID); Z88.6 Allergy status to analgesic agent; Z88.1 Allergy status to other antibiotic agents; Z88.0 Allergy status to penicillin; Z88.8 Allergy status to other drugs, medicaments and biological substances; Z91.048 Other nonmedicinal substance allergy status
CPT/HCPCS: 93005 ×2; 96361 ×3; 96365; 96375; 99285; 36415; 93306; 97162; 85379; 80061; 80053; 80048 ×2; 83735; 84484 ×2; 85025 ×3; 85610; 85730; 81001; 71046; 70450; G0378 ×3; J2916 ×2; J1885

== ENCOUNTER → 2019-12-28 | Outpatient (CLI) | payer OTHER ==
--- NOTE | 2019-12-28 13:32 | CT ---
EXAMINATION TYPE: CT abdomen pelvis w con DATE OF EXAM: 12/28/2019 COMPARISON: Prior CT 06/22/2019 MRI liver dated 09/04/2019 HISTORY: Colon cancer. CT DLP: 789.1 mGycm Automated exposure control for dose reduction was used. TECHNIQUE: Helical acquisition of images from the lung bases through the pelvis have been completed. CONTRAST: Performed with Oral Contrast and with IV Contrast, patient injected with 100 mL of Isovue M300. FINDINGS: Postop changes noted the gastroesophageal junction. LUNG BASES: No significant abnormality is appreciated. AORTA: No significant abnormality is appreciated. LIVER/GB: No significant interval change is appreciated, vague enhancement on axial image 17 within t he right lobe anteriorly consistent with known underlying mass as noted on prior MRI, CT, patient is post cholecystectomy. PANCREAS: No significant abnormality is seen. SPLEEN: No significant abnormality is seen. ADRENALS: No significant abnormality is seen. KIDNEYS: No significant interval change is seen, mild prominence of the collecting systems is present without evident nephrolithiasis or ureteral calculus. REPRODUCTIVE ORGANS: Not seen BOWEL: No significant abnormality is seen, postop changes are present in level of the cecum. FREE AIR: No Free Air visible. ASCITES: None visible. PELVIC ADENOPATHY: None visualized. RETROPERITONEAL ADENOPATHY: No Retroperitoneal Adenopathy visible. URINARY BLADDER: No significant abnormality is seen. OSSEOUS STRUCTURES: No significant abnormality is seen. IMPRESSION: LIVER MASS IS NOT WELL SEEN CONSISTENT WITH METASTASIS. CONSIDER LIVER MRI FOR BETTER EVALUATION. SOME MILD PROMINENCE OF THE RENAL COLLECTING SYSTEMS. POSTOP CHANGES.
== END | disposition home or self-care (01) ==
LOC: RADCTMAIN 11:56
PROVIDERS: ATTEND Internal Medicine Hematology & Oncology
DX: C18.2 Malignant neoplasm of ascending colon (principal); Z90.49 Acquired absence of other specified parts of digestive tract; Z88.5 Allergy status to narcotic agent; Z88.0 Allergy status to penicillin; Z88.3 Allergy status to other anti-infective agents
CPT/HCPCS: 74177; Q9967

== ENCOUNTER → 2020-01-08 | Outpatient (CLI) | payer OTHER ==
--- NOTE | 2020-01-08 12:24 | MR ---
EXAMINATION TYPE: MR liver wo con DATE OF EXAM: 01/08/2020 COMPARISON: Prior MRI liver September 04, 2019. Most recent CT December 28, 2019 and older CTs. HISTORY: Abd pain, colon cancer. Standard multiplanar, multisequence MRI departmental protocol Multiplanar, multisequence images of the abdomen focusing on liver were acquired. FINDINGS: IV contrast could not be given due to patient's stating severe anaphylactic allergy. Orderi physician agreed to proceed without contrast. LIVER: Examination is suboptimal as patient has difficulty holding breath, in addition to lack of IV contrast makes evaluation suboptimal. Prior visualized mass believed localized to the right lateral a spect medial segment left hepatic lobe is best seen on prior MRI postcontrast images and is heterogen eous hyperdense mass which becomes more isodense related to remainder of liver. This lesion is less w ell seen on precontrast T1-weighted images today and prior study. It is only faintly seen on T2 and n onfat saturation images, there is still present image 21 series 501 and appears less prominent in siz e measuring 2.8 cm long axis. No definitive new solid or cystic masses. Liver remains normal in size. No signal dropout. No new biliary dilatation. Gallbladder noted surgically absent. OTHER: Lung bases are clear. The spleen, pancreas, both adrenal glands are normal in size. No bowel dilatation. No concerning renal mass or hydronephrosis. Small Simple parapelvic cysts and extrarenal pelvis left kidney are redemonstrated. Visualized osseous structures are intact. IMPRESSION: As above. The solid intrahepatic mass measuring just under 3 cm in size on current study is redemonstrated. No new concerning masses identified on noncontrast MRI. Lesion shows hyper enhance ment relative to remainder of liver and then becomes isodense with suspected thin rim and central sca r delayed enhancement. Imaging findings would favor FNH over a hepatic adenoma. Metastatic disease fe lt extremely unlikely without interval progression in size or number without treatment and would typi aylin displayed more washout if a hypervascular metastatic focus.
== END | disposition home or self-care (01) ==
LOC: RADMRIMAIN 08:51
PROVIDERS: ATTEND Internal Medicine Hematology & Oncology
DX: C18.2 Malignant neoplasm of ascending colon (principal); R10.11 Right upper quadrant pain
CPT/HCPCS: 74181

== ENCOUNTER 2020-01-22 21:35 | Emergency (ER) | payer OTHER ==
[2020-01-22 21:51] VITALS: TEMP 97.9
--- NOTE | 2020-01-22 21:57 | ED ---
Syncope HPI - General Chief Complaint: Syncope Stated Complaint: Syncope, Chest Pain Time Seen by Provider: 01/22/20 21:38 Source: EMS, RN notes reviewed, old records reviewed Mode of arrival: EMS Limitations: no limitations - History of Present Illness Initial Comments: this is a 54-year-old female she is well-known to this facility. Patient presents today for evaluation regards to syncopal event occasional chest pain. Multiple episodes of recurrent syncope here as well as drinking transferred by EMS. Patient self denying current chest pain states she does not feel wellall the above symptoms occurred O patient was playing [employer] [employer] Complaint: loss of consciousness, felt faint, collapsed -: days(s) Prodromal Symptoms: chest pain, palpitations -: second(s) Witnessed: yes - by bystander, yes - by EMS Injuries Sustained Associated with Event: None Current Symptoms: back to baseline History: previous syncopal episode Context: getting out of bed Treatments Prior to Arrival: none - Related Data Home Medications Medication Instructions Recorded Confirmed lamoTRIgine [LaMICtal] 200 mg PO BID 09/26/18 12/19/19 Topiramate 100 mg PO DAILY 12/19/18 12/19/19 clonazePAM [KlonoPIN] 1.5 mg PO Q12H 04/20/19 12/19/19 Ibuprofen [Motrin] 800 mg PO TID PRN 11/30/19 12/19/19 Topiramate 50 mg PO HS 12/19/19 12/19/19 Previous Rx's Medication Instructions Recorded Sertraline [Zoloft] 25 mg PO DAILY #0 12/21/19 Allergies Allergy/AdvReac Type Severity Reaction Status Date / Time erythromycin base Allergy Rash/Hives Verified 01/22/20 21:51 gadobutrol [From Gadavist] Allergy Anaphylaxis Verified 01/22/20 21:51 Gadolinium-Containing Allergy Anaphylaxis Verified 01/22/20 21:51 Contrast Medi iodine Allergy Anaphylaxis Verified 01/22/20 21:51 ketorolac tromethamine Allergy Rash/Hives/ Verified 01/22/20 21:51 [From Toradol] hallucinati ons Penicillins Allergy Anaphylaxis Verified 01/22/20 21:51 azithromycin AdvReac red face Verified 01/22/20 21:51 lorazepam [From Ativan] AdvReac Hallucinati Verified 01/22/20 21:51 ons Review of Systems ROS Statement: Those systems with pertinent positive or pertinent negative responses have been documented in the HPI. ROS Other: All systems not noted in ROS Statement are negative. 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 BLOOD TRANSFUSIONS FOR LOW HGB. History of Any Multi-Drug Resistant Organisms: MRSA Date of last positivie culture/infection: 08/10/19 MDRO Source:: URINE Past Surgical History: Appendectomy, Bowel Resection, Cholecystectomy, Ear Surgery, Hysterectomy, Orthopedic Surgery Additional Past Surgical History / Comment(s): frantz knee arthroscopy, hiatal hernia surgery, rt ear surgery to remove middle ear, lymph node biopsy right armpit Past Anesthesia/Blood Transfusion Reactions: Postoperative Nausea & Vomiting ( PONV) Past Psychological History: Anxiety, Panic Disorder Smoking Status: Never smoker Past Alcohol Use History: Occasional Past Drug Use History: None Reported - Past Family History Mother Family Medical History: No Reported History Additional Family Medical History / Comment(s): . General Exam Limitations: no limitations General appearance: alert, in no apparent distress Head exam: Present: atraumatic, normocephalic, normal inspection Eye exam: Present: normal appearance, PERRL, EOMI. Absent: scleral icterus, conjunctival injection, periorbital swelling ENT exam: Present: normal exam, mucous membranes moist Neck exam: Present: normal inspection. Absent: tenderness, meningismus, lymphadenopathy Respiratory exam: Present: normal lung sounds bilaterally. Absent: respiratory distress, wheezes, rales, rhonchi, stridor Cardiovascular Exam: Present: regular rate, normal rhythm, normal heart sounds. Absent: systolic murmur, diastolic murmur, rubs, gallop, clicks GI/Abdominal exam: Present: soft, normal bowel sounds. Absent: distended, tenderness, guarding, rebound, rigid Extremities exam: Present: normal inspection, full ROM, normal capillary refill. Absent: tenderness, pedal edema, joint swelling, calf tenderness Back exam: Present: normal inspection Neurological exam: Present: alert, oriented X3, CN II-XII intact Psychiatric exam: Present: normal affect, normal mood Skin exam: Present: warm, dry, intact, normal color. Absent: rash Course Vital Signs 01/22/20 01/22/20 21:43 23:31 Temperature 97.9 F Pulse Rate 64 65 Respiratory 24 18 Rate Blood Pressure 148/75 128/89 O2 Sat by Pulse 96 98 Oximetry - Reevaluation(s) Reevaluation #1: medical records reviewed multiple admissions are evaluated here in the ER, multiple prior ER visits and admissions for same No recurrent syncope here in the ER spoke patient regarding findings, questions answered EKG Findings - EKG Comments: EKG Findings:: EKG is sinus rhythm 64 NE 204 QRS 158 QTc 472 Medical Decision Making - Medical Decision Making 54 female DF for evaluation lightheadedness and dizziness feeling well here in the ER, no recurrent syncope no significant acute complaint. Patient can be discharged home - Lab Data Result diagrams: 01/22/20 22:03 01/22/20 22:03 Lab Results 01/22/20 01/22/20 01/22/20 Range/Units 22:03 22:03 22:03 WBC 8.3 (3.8-10.6) k/uL RBC 4.21 (3.80-5.40) m/uL Hgb 11.9 (11.4-16.0) gm/dL Hct 37.5 (34.0-46.0) % MCV 89.0 (80.0-100.0) fL MCH 28.2 (25.0-35.0) pg MCHC 31.6 (31.0-37.0) g/dL RDW 17.3 H (11.5-15.5) % Plt Count 259 (150-450) k/uL Neutrophils % 59 % Lymphocytes % 33 % Monocytes % 4 % Eosinophils % 2 % Basophils % 1 % Neutrophils # 4.9 (1.3-7.7) k/uL Lymphocytes # 2.8 (1.0-4.8) k/uL Monocytes # 0.3 (0-1.0) k/uL Eosinophils # 0.2 (0-0.7) k/uL Basophils # 0.0 (0-0.2) k/uL Hypochromasia Slight Anisocytosis Slight PT 9.4 (9.0-12.0) sec INR 0.9 (<1.2) APTT 22.0 (22.0-30.0) sec Sodium 138 (137-145) mmol/L Potassium 4.0 (3.5-5.1) mmol/L Chloride 110 H (98-107) mmol/L Carbon Dioxide 22 (22-30) mmol/L Anion Gap 6 mmol/L BUN 23 H (7-17) mg/dL Creatinine 0.78 (0.52-1.04) mg/dL Est GFR (CKD-EPI)AfAm >90 (>60 ml/min/1.73 sqM) Est GFR (CKD-EPI)NonAf 87 (>60 ml/min/1.73 sqM) Glucose 114 H (74-99) mg/dL Calcium 8.9 (8.4-10.2) mg/dL Magnesium 2.0 (1.6-2.3) mg/dL Total Bilirubin 0.3 (0.2-1.3) mg/dL AST 32 (14-36) U/L ALT 19 (4-34) U/L Alkaline Phosphatase 173 H (38-126) U/L Creatine Kinase 75 (30-135) U/L Troponin I (0.000-0.034) ng/mL Total Protein 6.7 (6.3-8.2) g/dL Albumin 3.8 (3.5-5.0) g/dL 01/21/20 Range/Units 22:03 WBC (3.8-10.6) k/uL RBC (3.80-5.40) m/uL Hgb (11.4-16.0) gm/dL Hct (34.0-46.0) % MCV (80.0-100.0) fL MCH (25.0-35.0) pg MCHC (31.0-37.0) g/dL RDW (11.5-15.5) % Plt Count (150-450) k/uL Neutrophils % % Lymphocytes % % Monocytes % % Eosinophils % % Basophils % % Neutrophils # (1.3-7.7) k/uL Lymphocytes # (1.0-4.8) k/uL Monocytes # (0-1.0) k/uL Eosinophils # (0-0.7) k/uL Basophils # (0-0.2) k/uL Hypochromasia Anisocytosis PT (9.0-12.0) sec INR (<1.2) APTT (22.0-30.0) sec Sodium (137-145) mmol/L Potassium (3.5-5.1) mmol/L Chloride (98-107) mmol/L Carbon Dioxide (22-30) mmol/L Anion Gap mmol/L BUN (7-17) mg/dL Creatinine (0.52-1.04) mg/dL Est GFR (CKD-EPI)AfAm (>60 ml/min/1.73 sqM) Est GFR (CKD-EPI)NonAf (>60 ml/min/1.73 sqM) Glucose (74-99) mg/dL Calcium (8.4-10.2) mg/dL Magnesium (1.6-2.3) mg/dL Total Bilirubin (0.2-1.3) mg/dL AST (14-36) U/L ALT (4-34) U/L Alkaline Phosphatase (38-126) U/L Creatine Kinase (30-135) U/L Troponin I <0.012 (0.000-0.034) ng/mL Total Protein (6.3-8.2) g/dL Albumin (3.5-5.0) g/dL Disposition Clinical Impression: Vasovagal syncope, Syncope Disposition: HOME SELF-CARE Condition: Good Instructions (If sedation given, give patient instructions): Syncope (ED) Is patient prescribed a controlled substance at d/c from ED?: No Referrals: Scott Medrano MD [Primary Care Provider] - 1-2 days
[2020-01-22] MEDS ORDERED: SODIUM CHLORIDE 0.9% 1,000 ML IV STA ×2 (21:59)
[2020-01-22] MEDS ORDERED: DIAZEPAM 5 MG/ML 2 ML INJ IVP STA (22:00)
[2020-01-22 22:13] LABS: Anisocytosis Slight; Basophils % (A) 1 %; Eosinophils # (A) 0.2 k/uL (0-0.7); Eosinophils % (A) 2 %; HCT 37.5 % (34.0-46.0); HGB 11.9 gm/dL (11.4-16.0); Hypochromasia Slight; Lymphocytes # (A) 2.8 k/uL (1.0-4.8); Lymphocytes % (A) 33 %; MCH 28.2 pg (25.0-35.0); MCHC 31.6 g/dL (31.0-37.0); Mean Platelet Volume 7.6; Monocytes # (A) 0.3 k/uL (0-1.0); Monocytes % (A) 4 %; Neutrophils # (A) 4.9 k/uL (1.3-7.7); Neutrophils % (A) 59 %; Platelet Count 259 k/uL (150-450); RBC 4.21 m/uL (3.80-5.40); RDW 17.3 % (11.5-15.5); WBC 8.3 k/uL (3.8-10.6)
[2020-01-22 22:20] LABS: ALT 19 U/L (4-34); AST 32 U/L (14-36); African American GFR (CKD) >90 (>60 ml/min/1.73 sqM); Albumin 3.8 g/dL (3.5-5.0); Alkaline Phosphatase 173 U/L (38-126); Anion Gap 6 mmol/L; Blood Urea Nitrogen 23 mg/dL (7-17); Calcium 8.9 mg/dL (8.4-10.2); Carbon Dioxide 22 mmol/L (22-30); Chloride 110 mmol/L (98-107); Creatine Kinase 75 U/L (30-135); Glucose 114 mg/dL (74-99); Non-African American GFR(CKD) 87 (>60 ml/min/1.73 sqM); Sodium 138 mmol/L (137-145); Total Bilirubin 0.3 mg/dL (0.2-1.3); Total Protein 6.7 g/dL (6.3-8.2)
[2020-01-22 22:28] LABS: INR 0.9 (<1.2); Prothrombin Time 9.4 sec (9.0-12.0)
[2020-01-22 23:38] VITALS: BP 128/89; PULSE 65; RESP 18
== END 2020-01-22 23:47 | disposition home or self-care (01) ==
LOC: EC 21:35
DX: R55 Syncope and collapse (principal); R07.9 Chest pain, unspecified; F41.9 Anxiety disorder, unspecified; F41.0 Panic disorder [episodic paroxysmal anxiety]; G40.909 Epilepsy, unspecified, not intractable, without status epilepticus; Z79.899 Other long term (current) drug therapy; Z85.038 Personal history of other malignant neoplasm of large intestine; Z88.0 Allergy status to penicillin; Z88.1 Allergy status to other antibiotic agents; Z88.6 Allergy status to analgesic agent; Z88.8 Allergy status to other drugs, medicaments and biological substances; Z91.041 Radiographic dye allergy status; Z86.14 Personal history of Methicillin resistant Staphylococcus aureus infection
CPT/HCPCS: 36415; 93005; 80053; 82550; 83735; 84484; 85025; 85610; 85730; 99284; 96374; 96361; J3360

== ENCOUNTER 2020-02-06 22:01 | Emergency (ER) | payer OTHER ==
[2020-02-06 22:06] VITALS: RESP 20
[2020-02-06] MEDS ORDERED: ASPIRIN 81 MG PO STA (22:28)
[2020-02-06] MEDS ORDERED: MORPHINE SULFATE 4 MG/ML SYRINGE IV STA (22:28)
[2020-02-06] MEDS ORDERED: METOPROLOL TARTRATE 25 MG TAB PO STA (22:29)
--- NOTE | 2020-02-06 22:33 | ED ---
Chest Pain HPI - General Chief Complaint: Chest Pain Stated Complaint: chest pain Time Seen by Provider: 02/06/20 22:22 Source: patient Mode of arrival: wheelchair Limitations: no limitations - History of Present Illness Initial Comments: this patientis a 54-year-old woman who presents to be evaluated for chest pain that she states is been going on for number days but became worse tonight. She indicates the substernal area. She states that it is sharp pains and there is no worsening or relieving factors. It is currently severe. There are no asso ciated symptoms. MD Complaint: chest pain -: days(s) Onset: during rest Pain Location: substernal Pain Radiation: none Severity: severe Quality: sharp Consistency: constant Improves With: nothing Worsens With: nothing Treatments Prior to Arrival: none - Related Data Home Medications Medication Instructions Recorded Confirmed lamoTRIgine [LaMICtal] 200 mg PO BID 09/26/18 02/06/20 Topiramate 100 mg PO DAILY 12/19/18 02/06/20 clonazePAM [KlonoPIN] 1.5 mg PO Q12H 04/20/19 02/06/20 Ibuprofen [Motrin] 800 mg PO BID PRN 11/30/19 02/06/20 Topiramate 50 mg PO HS 12/19/19 02/06/20 Sertraline [Zoloft] 50 mg PO DAILY 02/06/20 02/06/20 Allergies Allergy/AdvReac Type Severity Reaction Status Date / Time erythromycin base Allergy Rash/Hives Verified 02/06/20 22:50 gadobutrol [From Gadavist] Allergy Anaphylaxis Verified 02/06/20 22:50 Gadolinium-Containing Allergy Anaphylaxis Verified 02/06/20 22:50 Contrast Medi iodine Allergy Anaphylaxis Verified 02/06/20 22:50 ketorolac tromethamine Allergy Rash/Hives/ Verified 02/06/20 22:50 [From Toradol] hallucinati ons Penicillins Allergy Anaphylaxis Verified 02/06/20 22:50 azithromycin AdvReac red face Verified 02/06/20 22:50 lorazepam [From Ativan] AdvReac Hallucinati Verified 02/06/20 22:50 ons Review of Systems ROS Statement: Those systems with pertinent positive or pertinent negative responses have been documented in the HPI. ROS Other: All systems not noted in ROS Statement are negative. Constitutional: Denies: fever, chills Respiratory: Denies: cough, dyspnea Cardiovascular: Reports: chest pain. Denies: palpitations, orthopnea, edema, syncope Gastrointestinal: Denies: abdominal pain, nausea, vomiting, diarrhea Genitourinary: Denies: dysuria, hematuria Musculoskeletal: Denies: back pain Skin: Denies: rash Neurological: Denies: headache, weakness, numbness EKG Findings - EKG Results: EKG: interpreted by ERMD, sinus rhythm EKG shows: tachycardia (rate 102 BPM) - Blocks, [place], Hypertrophy, ST Abn: AV and intraventricular conduction: right bundle branch block (fixed/intermittent, complete/incomplete), left anterior fascicular block Chamber hypertrophy or enlargement: only voltage criteria for left ventricular hypertrophy Past Medical History Past Medical History: Blood Disorder, Cancer, Fibromyalgia, Pneumonia, Seizure Disorder, Skin Disorder, Syncope Additional Past Medical History / Comment(s): migraines, "stress seizures"-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 BLOOD TRANSFUSIONS FOR LOW HGB. History of Any Multi-Drug Resistant Organisms: MRSA Date of last positivie culture/infection: 08/10/19 MDRO Source:: URINE Past Surgical History: Appendectomy, Bowel Resection, Cholecystectomy, Ear Surgery, Hysterectomy, Orthopedic Surgery Additional Past Surgical History / Comment(s): frantz knee arthroscopy, hiatal hernia surgery, rt ear surgery to remove middle ear, lymph node biopsy right armpit Past Anesthesia/Blood Transfusion Reactions: Postoperative Nausea & Vomiting (PONV) Past Psychological History: Anxiety, Panic Disorder Smoking Status: Never smoker Past Alcohol Use History: Occasional Past Drug Use History: None Reported - Past Family History Mother Family Medical History: No Reported History Additional Family Medical History / Comment(s): . General Exam Limitations: no limitations General appearance: alert, in no apparent distress Head exam: Present: atraumatic, normocephalic Eye exam: Present: normal appearance. Absent: scleral icterus, conjunctival injection ENT exam: Present: normal oropharynx Neck exam: Present: normal inspection Respiratory exam: Present: normal lung sounds bilaterally. Absent: respiratory distress, wheezes, rales, rhonchi, stridor Cardiovascular Exam: Present: regular rate, normal rhythm, normal heart sounds. Absent: systolic murmur, diastolic murmur, rubs, gallop GI/Abdominal exam: Present: soft. Absent: distended, tenderness, guarding, rebound, rigid, mass Extremities exam: Present: normal inspection, normal capillary refill. Absent: pedal edema, calf tenderness Back exam: Present: normal inspection. Absent: CVA tenderness (R), CVA tenderness (L) Neurological exam: Present: alert Skin exam: Present: warm, dry, intact, normal color. Absent: rash Course Vital Signs 02/06/20 02/06/20 02/06/20 22:05 22:51 23:06 Temperature 98.1 F Pulse Rate 89 101 H 87 Respiratory 20 20 20 Rate Blood Pressure 163/68 153/90 144/126 O2 Sat by Pulse 100 99 97 Oximetry 02/07/20 00:00 Temperature Pulse Rate 68 Respiratory 20 Rate Blood Pressure 92/68 O2 Sat by Pulse 99 Oximetry Disposition Clinical Impression: Chest pain Disposition: HOME SELF-CARE Condition: Fair Instructions (If sedation given, give patient instructions): Chest Pain (ED) Is patient prescribed a controlled substance at d/c from ED?: No Referrals: Scott Medrano MD [Primary Care Provider] - 1-2 days
[2020-02-06 22:42] LABS: Anisocytosis Slight; Basophils # (A) 0.1 k/uL (0-0.2); Basophils % (A) 0 %; Eosinophils # (A) 0.2 k/uL (0-0.7); Eosinophils % (A) 2 %; HCT 35.2 % (34.0-46.0); HGB 11.6 gm/dL (11.4-16.0); Lymphocytes # (A) 2.4 k/uL (1.0-4.8); Lymphocytes % (A) 19 %; MCH 28.9 pg (25.0-35.0); MCHC 32.9 g/dL (31.0-37.0); MCV 87.7 fL (80.0-100.0); Mean Platelet Volume 7.5; Monocytes # (A) 0.5 k/uL (0-1.0); Monocytes % (A) 4 %; Neutrophils # (A) 9.5 k/uL (1.3-7.7); Neutrophils % (A) 75 %; Platelet Count 293 k/uL (150-450); RBC 4.01 m/uL (3.80-5.40); RDW 17.3 % (11.5-15.5); WBC 12.6 k/uL (3.8-10.6)
--- NOTE | 2020-02-06 22:49 | XR ---
EXAMINATION TYPE: XR chest 1V portable DATE OF EXAM: 02/06/2020 COMPARISON: 12/19/2019 HISTORY: Incomplete TECHNIQUE: FINDINGS: There is no heart failure nor confluent pneumonic infiltrate. Costophrenic angles are clear . There are chest leads. Bony thorax is intact. IMPRESSION: No active cardiopulmonary disease. No change.
[2020-02-06 22:50] LABS: Calcium 9.7 mg/dL (8.4-10.2); Magnesium 2.2 mg/dL (1.6-2.3); Potassium 4.1 mmol/L (3.5-5.1); Total Bilirubin 0.3 mg/dL (0.2-1.3); Total Protein 6.9 g/dL (6.3-8.2)
[2020-02-06 22:55] LABS: D-Dimer 0.35 mg/L FEU (<0.60); INR 0.9 (<1.2); Partial Thromboplastin Time 23.3 sec (22.0-30.0); Prothrombin Time 9.3 sec (9.0-12.0)
[2020-02-06] MEDS ORDERED: ONDANSETRON 4 MG/2 ML VIAL IVP STA (23:17)
[2020-02-07 00:16] VITALS: PULSE 68
[2020-02-07] MEDS ORDERED: MORPHINE SULFATE 4 MG/ML SYRINGE IV STA (00:27)
[2020-02-07] MEDS ORDERED: HYDROmorphone 0.5 MG/0.5 ML SYRINGE IVP STA (00:31)
[2020-02-07 00:41] VITALS: BP 119/47; TEMP 98
== END 2020-02-07 00:45 | disposition home or self-care (01) ==
LOC: EC 22:01
DX: R07.2 Precordial pain (principal); F41.9 Anxiety disorder, unspecified; F41.0 Panic disorder [episodic paroxysmal anxiety]; M79.7 Fibromyalgia; G40.909 Epilepsy, unspecified, not intractable, without status epilepticus; Z79.899 Other long term (current) drug therapy; Z88.0 Allergy status to penicillin; Z88.1 Allergy status to other antibiotic agents; Z88.6 Allergy status to analgesic agent; Z88.8 Allergy status to other drugs, medicaments and biological substances; Z91.041 Radiographic dye allergy status; Z90.49 Acquired absence of other specified parts of digestive tract; Z86.14 Personal history of Methicillin resistant Staphylococcus aureus infection; Z86.69 Personal history of other diseases of the nervous system and sense organs; Z85.038 Personal history of other malignant neoplasm of large intestine
CPT/HCPCS: 36415; 93005; 85379; 80053; 82150; 83690; 83735; 84484; 85025; 85610; 85730; 71045; 99285; 96374; 96375 ×2; J2270; J2405; J1170

== ENCOUNTER 2020-02-11 | Emergency (ER) | payer OTHER ==
[2020-02-11 00:12] VITALS: RESP 16; TEMP 97.4
[2020-02-11] MEDS ORDERED: SODIUM CHLORIDE 0.9% 500 ML 500 ML IV STA (00:20)
[2020-02-11 00:31] LABS: Anisocytosis Slight; Basophils # (A) 0.1 k/uL (0-0.2); Basophils % (A) 1 %; Eosinophils # (A) 0.2 k/uL (0-0.7); Eosinophils % (A) 3 %; HCT 33.9 % (34.0-46.0); HGB 11.2 gm/dL (11.4-16.0); Lymphocytes # (A) 2.2 k/uL (1.0-4.8); Lymphocytes % (A) 29 %; MCH 28.5 pg (25.0-35.0); MCV 86.6 fL (80.0-100.0); Mean Platelet Volume 7.9; Monocytes # (A) 0.3 k/uL (0-1.0); Monocytes % (A) 4 %; Neutrophils # (A) 4.8 k/uL (1.3-7.7); Neutrophils % (A) 64 %; Platelet Count 288 k/uL (150-450); RBC 3.92 m/uL (3.80-5.40); RDW 17.2 % (11.5-15.5); WBC 7.5 k/uL (3.8-10.6)
[2020-02-11] MEDS ORDERED: HYDROmorphone 0.5 MG/0.5 ML SYRINGE IVP STA ×2 (00:34→01:57)
[2020-02-11 00:40] LABS: Calcium 9.7 mg/dL (8.4-10.2); Magnesium 2.2 mg/dL (1.6-2.3); Potassium 4.3 mmol/L (3.5-5.1); Total Bilirubin 0.3 mg/dL (0.2-1.3); Total Protein 6.9 g/dL (6.3-8.2)
--- NOTE | 2020-02-11 00:46 | ED ---
General Adult HPI - General Chief complaint: Chest Pain Stated complaint: Chest pain Time Seen by Provider: 02/11/20 00:08 Source: patient, RN notes reviewed Mode of arrival: ambulatory Limitations: no limitations - Related Data Home Medications Medication Instructions Recorded Confirmed lamoTRIgine [LaMICtal] 200 mg PO BID 09/26/18 02/06/20 Topiramate 100 mg PO DAILY 12/19/18 02/06/20 clonazePAM [KlonoPIN] 1.5 mg PO Q12H 04/20/19 02/06/20 Ibuprofen [Motrin] 800 mg PO BID PRN 11/30/19 02/06/20 Topiramate 50 mg PO HS 12/19/19 02/06/20 Sertraline [Zoloft] 50 mg PO DAILY 02/06/20 02/06/20 Allergies Allergy/AdvReac Type Severity Reaction Status Date / Time erythromycin base Allergy Rash/Hives Verified 02/06/20 22:50 gadobutrol [From Gadavist] Allergy Anaphylaxis Verified 02/06/20 22:50 Gadolinium-Containing Allergy Anaphylaxis Verified 02/06/20 22:50 Contrast Medi iodine Allergy Anaphylaxis Verified 02/06/20 22:50 ketorolac tromethamine Allergy Rash/Hives/ Verified 02/06/20 22:50 [From Toradol] hallucinati ons Penicillins Allergy Anaphylaxis Verified 02/06/20 22:50 azithromycin AdvReac red face Verified 02/06/20 22:50 lorazepam [From Ativan] AdvReac Hallucinati Verified 02/06/20 22:50 ons Review of Systems ROS Statement: Those systems with pertinent positive or pertinent negative responses have been documented in the HPI. ROS Other: All systems not noted in ROS Statement are negative. 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 BLOOD TRANSFUSIONS FOR LOW HGB. History of Any Multi-Drug Resistant Organisms: MRSA Date of last positivie culture/infection: 08/10/19 MDRO Source:: URINE Past Surgical History: Appendectomy, Bowel Resection, Cholecystectomy, Ear Surgery, Hysterectomy, Orthopedic Surgery Additional Past Surgical History / Comment(s): frantz knee arthroscopy, hiatal hernia surgery, rt ear surgery to remove middle ear, lymph node biopsy right armpit Past Anesthesia/Blood Transfusion Reactions: Postoperative Nausea & Vomiting (PONV) Past Psychological History: Anxiety, Panic Disorder Smoking Status: Never smoker Past Alcohol Use History: Occasional Past Drug Use History: None Reported - Past Family History Mother Family Medical History: No Reported History Additional Family Medical History / Comment(s): . General Exam Limitations: no limitations Course Vital Signs 02/11/20 02/11/20 00:07 00:18 Temperature 97.4 F L Pulse Rate 71 Pulse Rate [ 74 [employer] ] Respiratory 16 Rate Blood Pressure 126/106 O2 Sat by Pulse 100 Oximetry Medical Decision Making - Lab Data Result diagrams: 02/11/20 00:23 Lab Results 02/11/20 Range/Units 00:23 WBC 7.5 (3.8-10.6) k/uL RBC 3.92 (3.80-5.40) m/uL Hgb 11.2 L (11.4-16.0) gm/dL Hct 33.9 L (34.0-46.0) % MCV 86.6 (80.0-100.0) fL MCH 28.5 (25.0-35.0) pg MCHC 33.0 (31.0-37.0) g/dL RDW 17.2 H (11.5-15.5) % Plt Count 288 (150-450) k/uL Neutrophils % 64 % Lymphocytes % 29 % Monocytes % 4 % Eosinophils % 3 % Basophils % 1 % Neutrophils # 4.8 (1.3-7.7) k/uL Lymphocytes # 2.2 (1.0-4.8) k/uL Monocytes # 0.3 (0-1.0) k/uL Eosinophils # 0.2 (0-0.7) k/uL Basophils # 0.1 (0-0.2) k/uL Anisocytosis Slight Disposition Referrals: Scott Medrano MD [Primary Care Provider] - 1-2 days
[2020-02-11 00:49] LABS: D-Dimer 0.34 mg/L FEU (<0.60); INR 0.9 (<1.2); Partial Thromboplastin Time 22.7 sec (22.0-30.0); Prothrombin Time 9.4 sec (9.0-12.0)
--- NOTE | 2020-02-11 01:09 | XR ---
EXAM: XR Chest, 2 Views CLINICAL HISTORY: ITS.REASON XR Reason: Chest Pain TECHNIQUE: Frontal and lateral views of the chest. COMPARISON: Chest x-ray dated 12/19/2019 FINDINGS: Lungs: Unremarkable. Pleural space: Unremarkable. Heart: Unremarkable. Mediastinum: Unremarkable. Bones/joints: Unremarkable. Tubes, lines and devices: Implantable loop recorder device projects over the mid left thorax. IMPRESSION: No acute findings in the chest.
--- NOTE | 2020-02-11 01:23 | ED ---
General Adult HPI - General Chief complaint: Chest Pain Stated complaint: Chest pain Time Seen by Provider: 02/11/20 00:08 Source: patient, RN notes reviewed Mode of arrival: ambulatory Limitations: no limitations - History of Present Illness Initial comments: 54-year-old female with a past medical history of anemia, fibromyalgia, seizure disorder presents to the emergency room for chest pain. Patient states this chest pain has been on and off for over a week. She reports that started to get the pain again today several hours prior to arrival. States it feels similar to previous episodes. States it is a sharp pain in the center of her chest. D enies radiating pain to arms back or neck. Denies associated nausea or vomiting. Denies diaphoresis. Patient reports that she has a loop recorder because of frequent episodes of syncope. She reports she pressed the button today when she started to have chest pain and called the office and was told to come into the emergency room.Patient has no other complaints at this time including shortness of breath, abdominal pain, nausea or vomiting, headache, or visual changes. - Related Data Home Medications Medication Instructions Recorded Confirmed lamoTRIgine [LaMICtal] 200 mg PO BID 09/26/18 02/06/20 Topiramate 100 mg PO DAILY 12/19/18 02/06/20 clonazePAM [KlonoPIN] 1.5 mg PO Q12H 04/20/19 02/06/20 Ibuprofen [Motrin] 800 mg PO BID PRN 11/30/19 02/06/20 Topiramate 50 mg PO HS 12/19/19 02/06/20 Sertraline [Zoloft] 50 mg PO DAILY 02/06/20 02/06/20 Allergies Allergy/AdvReac Type Severity Reaction Status Date / Time erythromycin base Allergy Rash/Hives Verified 02/06/20 22:50 gadobutrol [From Gadavist] Allergy Anaphylaxis Verified 02/06/20 22:50 Gadolinium-Containing Allergy Anaphylaxis Verified 02/06/20 22:50 Contrast Medi iodine Allergy Anaphylaxis Verified 02/06/20 22:50 ketorolac tromethamine Allergy Rash/Hives/ Verified 02/06/20 22:50 [From Toradol] hallucinati ons Penicillins Allergy Anaphylaxis Verified 02/06/20 22:50 azithromycin AdvReac red face Verified 02/06/20 22:50 lorazepam [From Ativan] AdvReac Hallucinati Verified 02/06/20 22:50 ons Review of Systems ROS Statement: Those systems with pertinent positive or pertinent negative responses have been documented in the HPI. ROS Other: All systems not noted in ROS Statement are negative. 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 BLOOD TRANSFUSIONS FOR LOW HGB. History of Any Multi-Drug Resistant Organisms: MRSA Date of last positivie culture/infection: 08/10/19 MDRO Source:: URINE Past Surgical History: Appendectomy, Bowel Resection, Cholecystectomy, Ear Surgery, Hysterectomy, Orthopedic Surgery Additional Past Surgical History / Comment(s): frantz knee arthroscopy, hiatal hernia surgery, rt ear surgery to remove middle ear, lymph node biopsy right armpit Past Anesthesia/Blood Transfusion Reactions: Postoperative Nausea & Vomiting (P ONV) Past Psychological History: Anxiety, Panic Disorder Smoking Status: Never smoker Past Alcohol Use History: Occasional Past Drug Use History: None Reported - Past Family History Mother Family Medical History: No Reported History Additional Family Medical History / Comment(s): . General Exam Limitations: no limitations General appearance: alert, in no apparent distress Head exam: Present: atraumatic, normocephalic, normal inspection Eye exam: Present: normal appearance, PERRL, EOMI. Absent: scleral icterus, conjunctival injection, periorbital swelling ENT exam: Present: normal exam, mucous membranes moist Neck exam: Present: normal inspection, full ROM. Absent: tenderness, meningismus, lymphadenopathy Respiratory exam: Present: normal lung sounds bilaterally. Absent: respiratory distress, wheezes, rales, rhonchi, stridor Cardiovascular Exam: Present: regular rate, normal rhythm, normal heart sounds. Absent: systolic murmur, diastolic murmur, rubs, gallop, clicks GI/Abdominal exam: Present: soft, normal bowel sounds. 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 CBC is unremarkable. CMP does show evidence of dehydration. Patient was given fluids. Troponin is negative. D-dimer negative at 0.34. Chest x-ray shows no acute findings in the chest. EKG shows a right bundle branch block that is consistent with previous EKG from 02/06/2020. Patient was seen by cardiology about 3 weeks ago for syncope loop recorder was interrogated which was unremarkable. Echocardiogram was performed which was normal aside from mild regurgitation. Patient has been seen several times for similar symptoms, troponin has been negative. She was going for a week. Pain is atypical in nature. At this time patient will be discharged home to follow-up with her doctor. She will return here for any worsening symptoms. - Lab Data Result diagrams: 02/11/20 00:23 02/11/20 00:23 Lab Results 02/11/20 02/11/20 02/11/20 Range/Units 00:23 00:23 00:23 WBC 7.5 (3.8-10.6) k/uL RBC 3.92 (3.80-5.40) m/uL Hgb 11.2 L (11.4-16.0) gm/dL Hct 33.9 L (34.0-46.0) % MCV 86.6 (80.0-100.0) fL MCH 28.5 (25.0-35.0) pg MCHC 33.0 (31.0-37.0) g/dL RDW 17.2 H (11.5-15.5) % Plt Count 288 (150-450) k/uL Neutrophils % 64 % Lymphocytes % 29 % Monocytes % 4 % Eosinophils % 3 % Basophils % 1 % Neutrophils # 4.8 (1.3-7.7) k/uL Lymphocytes # 2.2 (1.0-4.8) k/uL Monocytes # 0.3 (0-1.0) k/uL Eosinophils # 0.2 (0-0.7) k/uL Basophils # 0.1 (0-0.2) k/uL Anisocytosis Slight PT 9.4 (9.0-12.0) sec INR 0.9 (<1.2) APTT 22.7 (22.0-30.0) sec D-Dimer 0.34 (<0.60) mg/L FEU Sodium 141 (137-145) mmol/L Potassium 4.3 (3.5-5.1) mmol/L Chloride 111 H (98-107) mmol/L Carbon Dioxide 23 (22-30) mmol/L Anion Gap 7 mmol/L BUN 25 H (7-17) mg/dL Creatinine 0.86 (0.52-1.04) mg/dL Est GFR (CKD-EPI)AfAm 89 (>60 ml/min/1.73 sqM) Est GFR (CKD-EPI)NonAf 77 (>60 ml/min/1.73 sqM) Glucose 113 H (74-99) mg/dL Calcium 9.7 (8.4-10.2) mg/dL Magnesium 2.2 (1.6-2.3) mg/dL Total Bilirubin 0.3 (0.2-1.3) mg/dL AST 23 (14-36) U/L ALT 16 (4-34) U/L Alkaline Phosphatase 173 H (38-126) U/L Troponin I (0.000-0.034) ng/mL NT-Pro-B Natriuret Pep pg/mL Total Protein 6.9 (6.3-8.2) g/dL Albumin 4.0 (3.5-5.0) g/dL Lipase 111 (23-300) U/L 02/11/20 02/11/20 Range/Units 00:23 00:23 WBC (3.8-10.6) k/uL RBC (3.80-5.40) m/uL Hgb (11.4-16.0) gm/dL Hct (34.0-46.0) % MCV (80.0-100.0) fL MCH (25.0-35.0) pg MCHC (31.0-37.0) g/dL RDW (11.5-15.5) % Plt Count (150-450) k/uL Neutrophils % % Lymphocytes % % Monocytes % % Eosinophils % % Basophils % % Neutrophils # (1.3-7.7) k/uL Lymphocytes # (1.0-4.8) k/uL Monocytes # (0-1.0) k/uL Eosinophils # (0-0.7) k/uL Basophils # (0-0.2) k/uL Anisocytosis PT (9.0-12.0) sec INR (<1.2) APTT (22.0-30.0) sec D-Dimer (<0.60) mg/L FEU Sodium (137-145) mmol/L Potassium (3.5-5.1) mmol/L Chloride (98-107) mmol/L Carbon Dioxide (22-30) mmol/L Anion Gap mmol/L BUN (7-17) mg/dL Creatinine (0.52-1.04) mg/dL Est GFR (CKD-EPI)AfAm (>60 ml/min/1.73 sqM) Est GFR (CKD-EPI)NonAf (>60 ml/min/1.73 sqM) Glucose (74-99) mg/dL Calcium (8.4-10.2) mg/dL Magnesium (1.6-2.3) mg/dL Total Bilirubin (0.2-1.3) mg/dL AST (14-36) U/L ALT (4-34) U/L Alkaline Phosphatase (38-126) U/L Troponin I <0.012 (0.000-0.034) ng/mL NT-Pro-B Natriuret Pep 266 pg/mL Total Protein (6.3-8.2) g/dL Albumin (3.5-5.0) g/dL Lipase (23-300) U/L Disposition Clinical Impression: Atypical chest pain Disposition: HOME SELF-CARE Condition: Good Instructions (If sedation given, give patient instructions): Chest Pain (ED) Additional Instructions: Please follow up with your primary care doctor. If you have any worsening symptoms return to emergency room. Is patient prescribed a controlled substance at d/c from ED?: No Referrals: Scott Medrano MD [Primary Care Provider] - 1-2 days Time of Disposition: 02:04
[2020-02-11 01:59] VITALS: BP 134/88; PULSE 71
[2020-02-11] MEDS ORDERED: ONDANSETRON 4 MG/2 ML VIAL IVP STA (01:59)
== END 2020-02-11 02:20 | disposition home or self-care (01) ==
LOC: EC
DX: R07.89 Other chest pain (principal); I45.10 Unspecified right bundle-branch block; Z88.0 Allergy status to penicillin; Z88.1 Allergy status to other antibiotic agents; Z88.8 Allergy status to other drugs, medicaments and biological substances; Z88.6 Allergy status to analgesic agent; Z91.041 Radiographic dye allergy status; F41.9 Anxiety disorder, unspecified; F41.0 Panic disorder [episodic paroxysmal anxiety]; M79.7 Fibromyalgia; G40.909 Epilepsy, unspecified, not intractable, without status epilepticus; Z86.69 Personal history of other diseases of the nervous system and sense organs; Z85.038 Personal history of other malignant neoplasm of large intestine; Z79.899 Other long term (current) drug therapy; Z90.49 Acquired absence of other specified parts of digestive tract; Z90.710 Acquired absence of both cervix and uterus
CPT/HCPCS: 36415; 93005; 85379; 83880; 80053; 83690; 83735; 84484; 85025; 85610; 85730; 71046; 99285; 96374; 96375; 96376; 96361; J2405; J1170

== ENCOUNTER 2020-02-14 00:11 | Observation (INO) | payer OTHER ==
[2020-02-14] MEDS ORDERED: diphenhydrAMINE 50 MG/ML 1 ML VIAL IVP STA (00:15)
[2020-02-14] MEDS ORDERED: FAMOTIDINE 20 MG/2 ML VIAL IV STA (00:15)
[2020-02-14] MEDS ORDERED: methylPREDNISolone SOD SUCCI 125 MG/2 ML VIAL IV STA (00:16)
[2020-02-14 00:36] LABS: Glucose,Whole Blood 89 mg/dL (75-99)
--- NOTE | 2020-02-14 00:40 | ED ---
Neuro HPI - General Stated Complaint: Possible Stroke Time Seen by Provider: 02/14/20 00:15 Source: patient, EMS Mode of arrival: EMS - History of Present Illness Is the patient presenting with stroke symptoms?: Yes Onset/Timin -: minutes(s) Location: right arm, right leg Place: home Severity: severe Quality: weak, numb Improves With: none Worsens With: none Context: sudden onset Associated Symptoms: vertigo Treatments Prior to Arrival: none - Related Data Home Medications: Home Medications Medication Instructions Recorded Confirmed lamoTRIgine [LaMICtal] 200 mg PO BID 09/26/18 02/14/20 Topiramate 100 mg PO DAILY 12/19/18 02/14/20 clonazePAM [KlonoPIN] 1.5 mg PO Q12H 04/20/19 02/14/20 Ibuprofen [Motrin] 800 mg PO BID PRN 11/30/19 02/14/20 Topiramate 50 mg PO HS 12/19/19 02/14/20 Sertraline [Zoloft] 50 mg PO DAILY 02/06/20 02/14/20 Allergies/Adverse Reactions: Allergies Allergy/AdvReac Type Severity Reaction Status Date / Time erythromycin base Allergy Rash/Hives Verified 02/14/20 07:38 gadobutrol [From Gadavist] Allergy Anaphylaxis Verified 02/14/20 07:38 Gadolinium-Containing Allergy Anaphylaxis Verified 02/14/20 07:38 Contrast Medi iodine Allergy Anaphylaxis Verified 02/14/20 07:38 ketorolac tromethamine Allergy Rash/Hives/ Verified 02/14/20 07:38 [From Toradol] hallucinati ons Penicillins Allergy Anaphylaxis Verified 02/14/20 07:38 azithromycin AdvReac red face Verified 02/14/20 07:38 lorazepam [From Ativan] AdvReac Hallucinati Verified 02/14/20 07:38 ons Review of Systems ROS Statement: Those systems with pertinent positive or pertinent negative responses have been documented in the HPI. ROS Other: All systems not noted in ROS Statement are negative. Constitutional: Denies: fever, chills Eyes: Denies: vision change Respiratory: Denies: cough, dyspnea Cardiovascular: Denies: chest pain, palpitations, edema, syncope Gastrointestinal: Denies: abdominal pain, nausea, vomiting, diarrhea Genitourinary: Denies: dysuria, hematuria Musculoskeletal: Denies: back pain Skin: Denies: rash Neurological: Reports: weakness, numbness. Denies: headache General Exam General appearance: alert, in no apparent distress Head exam: Present: atraumatic, normocephalic Eye exam: Present: normal appearance, PERRL, EOMI. Absent: scleral icterus, conjunctival injection, nystagmus ENT exam: Present: normal oropharynx Neck exam: Present: normal inspection, full ROM. Absent: tenderness, meningismus Respiratory exam: Present: normal lung sounds bilaterally. Absent: respiratory distress, wheezes, rales, rhonchi, stridor Cardiovascular Exam: Present: regular rate, normal rhythm, normal heart sounds. Absent: systolic murmur, diastolic murmur, rubs, gallop GI/Abdominal exam: Present: soft. Absent: distended, tenderness, guarding, rebound, rigid, mass Extremities exam: Present: normal inspection, normal capillary refill. Absent: pedal edema, calf tenderness Back exam: Present: normal inspection Neurological exam: Present: alert, oriented X3, CN II-XII intact, reflexes normal Skin exam: Present: warm, dry, intact, normal color. Absent: rash Stroke MDM - Lab Data Result diagrams: 02/14/20 00:48 02/14/20 00:48 Lab Results 02/14/20 02/14/20 02/14/20 Range/Units 00:34 00:48 00:48 WBC 8.8 (3.8-10.6) k/uL RBC 3.98 (3.80-5.40) m/uL Hgb 10.9 L (11.4-16.0) gm/dL Hct 34.5 (34.0-46.0) % MCV 86.7 (80.0-100.0) fL MCH 27.3 (25.0-35.0) pg MCHC 31.5 (31.0-37.0) g/dL RDW 17.5 H (11.5-15.5) % Plt Count 293 (150-450) k/uL MPV 7.5 Neutrophils % 63 % Lymphocytes % 30 % Monocytes % 4 % Eosinophils % 2 % Basophils % 0 % Neutrophils # 5.6 (1.3-7.7) k/uL Lymphocytes # 2.6 (1.0-4.8) k/uL Monocytes # 0.4 (0-1.0) k/uL Eosinophils # 0.2 (0-0.7) k/uL Basophils # 0.0 (0-0.2) k/uL Anisocytosis Slight PT 9.5 (9.0-12.0) sec INR 0.9 (<1.2) APTT 22.2 (22.0-30.0) sec Sodium (137-145) mmol/L Potassium (3.5-5.1) mmol/L Chloride (98-107) mmol/L Carbon Dioxide (22-30) mmol/L Anion Gap mmol/L BUN (7-17) mg/dL Creatinine (0.52-1.04) mg/dL Est GFR (CKD-EPI)AfAm (>60 ml/min/1.73 sqM) Est GFR (CKD-EPI)NonAf (>60 ml/min/1.73 sqM) Glucose (74-99) mg/dL POC Glucose (mg/dL) 89 (75-99) mg/dL POC Glu [employer] Server ID [address] Glu mg/dL Hemoglobin A1c (4.0-6.0) % Calcium (8.4-10.2) mg/dL Total Bilirubin (0.2-1.3) mg/dL AST (14-36) U/L ALT (4-34) U/L Alkaline Phosphatase (38-126) U/L Troponin I (0.000-0.034) ng/mL Total Protein (6.3-8.2) g/dL Albumin (3.5-5.0) g/dL 02/14/20 02/14/20 02/14/20 Range/Units 00:48 00:48 00:48 WBC (3.8-10.6) k/uL RBC (3.80-5.40) m/uL Hgb (11.4-16.0) gm/dL Hct (34.0-46.0) % MCV (80.0-100.0) fL MCH (25.0-35.0) pg MCHC (31.0-37.0) g/dL RDW (11.5-15.5) % Plt Count (150-450) k/uL MPV Neutrophils % % Lymphocytes % % Monocytes % % Eosinophils % % Basophils % % Neutrophils # (1.3-7.7) k/uL Lymphocytes # (1.0-4.8) k/uL Monocytes # (0-1.0) k/uL Eosinophils # (0-0.7) k/uL Basophils # (0-0.2) k/uL Anisocytosis PT (9.0-12.0) sec INR (<1.2) APTT (22.0-30.0) sec Sodium 139 (137-145) mmol/L Potassium 3.9 (3.5-5.1) mmol/L Chloride 109 H (98-107) mmol/L Carbon Dioxide 24 (22-30) mmol/L Anion Gap 6 mmol/L BUN 29 H (7-17) mg/dL Creatinine 0.97 (0.52-1.04) mg/dL Est GFR (CKD-EPI)AfAm 77 (>60 ml/min/1.73 sqM) Est GFR (CKD-EPI)NonAf 67 (>60 ml/min/1.73 sqM) Glucose 93 (74-99) mg/dL POC Glucose (mg/dL) (75-99) mg/dL POC Glu D[employer] Server ID Estimated Ave Glu mg/dL 97 Hemoglobin A1c 5.0 (4.0-6.0) % Calcium 9.2 (8.4-10.2) mg/dL Total Bilirubin 0.2 (0.2-1.3) mg/dL AST 31 (14-36) U/L ALT 17 (4-34) U/L Alkaline Phosphatase 182 H (38-126) U/L Troponin I <0.012 (0.000-0.034) ng/mL Total Protein 6.6 (6.3-8.2) g/dL Albumin 3.8 (3.5-5.0) g/dL - EKG Data -: EKG Interpreted by [facility] EKG shows normal: sinus rhythm, axis (left axis deviation), intervals (pR interval 212 ms, prolonged, consistent with first-degree AV block. QRS duration 166 ms, prolonged, consistent with right bundle-branch block. QTc 475 ms, normal.), QRS complexes (here is a right bundle-branch block. Possible LVH. 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 BLOOD TRANSFUSIONS FOR LOW HGB. History of Any Multi-Drug Resistant Organisms: MRSA Date of last positivie culture/infection: 08/10/19 MDRO Source:: URINE Past Surgical History: Appendectomy, Bowel Resection, Cholecystectomy, Ear Surgery, Hysterectomy, Orthopedic Surgery Additional Past Surgical History / Comment(s): frantz knee arthroscopy, hiatal hernia surgery, rt ear surgery to remove middle ear, lymph node biopsy right armpit Past Anesthesia/Blood Transfusion Reactions: Postoperative Nausea & Vomiting (PONV) Past Psychological History: Anxiety, Panic Disorder Smoking Status: Never smoker Past Alcohol Use History: Occasional Past Drug Use History: None Reported - Past Family History Mother Family Medical History: No Reported History Additional Family Medical History / Comment(s): . Course Vital Signs 02/14/20 02/14/20 02/14/20 00:15 00:21 00:30 Temperature 97.9 F Pulse Rate 72 73 70 Pulse Rate [ Right] Respiratory 19 19 19 Rate Blood Pressure 165/80 136/56 167/81 Blood Pressure [Left Arm] O2 Sat by Pulse 96 96 97 Oximetry 02/14/20 02/14/20 02/14/20 00:59 01:00 01:30 Temperature Pulse Rate 67 66 61 Pulse Rate [ Right] Respiratory 19 19 18 Rate Blood Pressure 165/77 165/77 Blood Pressure [Left Arm] O2 Sat by Pulse 97 97 Oximetry 02/14/20 02/14/20 02/14/20 01:45 02:00 02:30 Temperature 98.7 F Pulse Rate 58 L 58 L Pulse Rate [ 94 Right] Respiratory 18 16 16 Rate Blood Pressure 109/55 111/75 Blood Pressure 154/79 [Left Arm] O2 Sat by Pulse 96 99 Oximetry 02/14/20 02/14/20 02:36 02:45 Temperature 97.6 F Pulse Rate 60 59 L Pulse Rate [ Right] Respiratory 16 16 Rate Blood Pressure 121/64 144/84 Blood Pressure [Left Arm] O2 Sat by Pulse 99 99 Oximetry Critical Care Time Critical Care Time: Yes (35 minutes) Disposition Clinical Impression: Right sided weakness Disposition: ADMITTED IP TO THIS HOSP Condition: Undetermined Is patient prescribed a controlled substance at d/c from ED?: No
--- NOTE | 2020-02-14 00:42 | CT ---
EXAM: CT Head Without Intravenous Contrast CLINICAL HISTORY: ITS.REASON CT Reason: Neuro deficit, acute, stroke suspected TECHNIQUE: Axial computed tomography images of the head/brain without intravenous contrast. CTDI is 49.27 mGy and DLP is 1133.4 mGy-cm. This CT exam was performed using one or more of the following dose reduction techniques: automated exposure control, adjustment of the mA and/or kV according to patient size, and/or use of iterative reconstruction technique. COMPARISON: No relevant prior studies available. FINDINGS: Brain: No acute infarct, hemorrhage, mass or edema. Ventricles: Unremarkable. No ventriculomegaly. Bones/joints: Unremarkable. No acute calvarial fracture. Soft tissues: Unremarkable. Sinuses: Mild mucosal thickening of the paranasal sinuses. Mastoid air cells: Post surgical changes within the right mastoid air cells. Complete opacification of the right middle ear. IMPRESSION: No acute findings in the head/brain.
--- NOTE | 2020-02-14 00:46 | CT ---
EXAM: CT Angiography Head With Intravenous Contrast CLINICAL HISTORY: ITS.REASON CT Reason: Neuro deficit, acute, stroke suspected TECHNIQUE: Axial computed tomographic angiography images of the head with intravenous contrast. CTDI is 0.085, 0.085, 48.8, 2.4, 8, 8x7 mGy and DLP is 704.7 mGy-cm. This CT exam was performed using one or more of the following dose reduction techniques: automated exposure control, adjustment of the mA and/or kV according to patient size, and/or use of iterative reconstruction technique. MIP reconstructed images were created and reviewed. COMPARISON: No relevant prior studies available. FINDINGS: HEAD: Right anterior cerebral artery: Unremarkable. No occlusion or significant stenosis. No aneurysm. Right middle cerebral artery: Unremarkable. No occlusion or significant stenosis. No aneurysm. Right posterior cerebral artery: Unremarkable. No occlusion or significant stenosis. No aneurysm. Left anterior cerebral artery: Unremarkable. No occlusion or significant stenosis. No aneurysm. Left middle cerebral artery: Unremarkable. No occlusion or significant stenosis. No aneurysm. Left posterior cerebral artery: Unremarkable. No occlusion or significant stenosis. No aneurysm. Basilar artery: Unremarkable. No occlusion or significant stenosis. No aneurysm. Right internal carotid artery: Unremarkable. No significant stenosis. No dissection or occlusion. Right vertebral artery: Unremarkable. No significant stenosis. No dissection or occlusion. Left internal carotid artery: Unremarkable. No significant stenosis. No dissection or occlusion. Left vertebral artery: Unremarkable. No significant stenosis. No dissection or occlusion. CAROTID STENOSIS REFERENCE USING NASCET CRITERIA: % ICA stenosis = (1 - narrowest ICA diameter/diameter of distal cervical ICA) x 100. Mild - <50% stenosis. Moderate - 50-69% stenosis. Severe - 70-94% stenosis. Near occlusion - 95-99% stenosis. Occluded - 100% stenosis. IMPRESSION: No acute findings in the arteries of the head. EXAM: CT Angiography Neck With Intravenous Contrast CLINICAL HISTORY: ITS.REASON CT Reason: Neuro deficit, acute, stroke suspected TECHNIQUE: Axial computed tomographic angiography images of the neck with intravenous contrast. CTDI is 0.085, 0.085, 48.8, 2.4, 8, 8x7 mGy and DLP is 704.7 mGy-cm. This CT exam was performed using one or more of the following dose reduction techniques: automated exposure control, adjustment of the mA and/or kV according to patient size, and/or use of iterative reconstruction technique. MIP reconstructed images were created and reviewed. COMPARISON: No relevant prior studies available. FINDINGS: VASCULATURE: Right common carotid artery: Unremarkable. No significant stenosis. No dissection or occlusion. Right internal carotid artery: Unremarkable. Extracranial segment is patent with no significant stenosis. No dissection or occlusion. Right vertebral artery: Unremarkable. No significant stenosis. No dissection or occlusion. Left common carotid artery: Unremarkable. No significant stenosis. No dissection or occlusion. Left internal carotid artery: Unremarkable. Extracranial segment is patent with no significant stenosis. No dissection or occlusion. Left vertebral artery: Unremarkable. No significant stenosis. No dissection or occlusion. NECK: Bones/joints: No acute fracture. No dislocation. Soft tissues: Unremarkable as visualized. No mass. CAROTID STENOSIS REFERENCE USING NASCET CRITERIA: % ICA stenosis = (1 - narrowest ICA diameter/diameter of distal cervical ICA) x 100. Mild - <50% stenosis. Moderate - 50-69% stenosis. Severe - 70-94% stenosis. Near occlusion - 95-99% stenosis. Occluded - 100% stenosis. IMPRESSION: Normal neck CTA.
--- NOTE | 2020-02-14 00:57 | XR ---
EXAM: XR Chest, 1 View CLINICAL HISTORY: ITS.REASON XR Reason: altered mental status TECHNIQUE: Frontal view of the chest. COMPARISON: Chest x-ray dated 02/11/2020 FINDINGS: Lungs: Unremarkable. Pleural space: Unremarkable. Heart: Unremarkable. Mediastinum: Unremarkable. Bones/joints: Unremarkable. Tubes, lines and devices: Implantable loop recorder device within the mid to upper left thorax. IMPRESSION: No acute findings in the chest.
[2020-02-14 01:00] LABS: Anisocytosis Slight; Basophils % (A) 0 %; Eosinophils # (A) 0.2 k/uL (0-0.7); Eosinophils % (A) 2 %; HCT 34.5 % (34.0-46.0); HGB 10.9 gm/dL (11.4-16.0); Lymphocytes # (A) 2.6 k/uL (1.0-4.8); Lymphocytes % (A) 30 %; MCH 27.3 pg (25.0-35.0); MCHC 31.5 g/dL (31.0-37.0); MCV 86.7 fL (80.0-100.0); Mean Platelet Volume 7.5; Monocytes # (A) 0.4 k/uL (0-1.0); Monocytes % (A) 4 %; Neutrophils # (A) 5.6 k/uL (1.3-7.7); Neutrophils % (A) 63 %; Platelet Count 293 k/uL (150-450); RBC 3.98 m/uL (3.80-5.40); RDW 17.5 % (11.5-15.5); WBC 8.8 k/uL (3.8-10.6)
[2020-02-14 01:24] LABS: Albumin 3.8 g/dL (3.5-5.0); Calcium 9.2 mg/dL (8.4-10.2); INR 0.9 (<1.2); Partial Thromboplastin Time 22.2 sec (22.0-30.0); Potassium 3.9 mmol/L (3.5-5.1); Prothrombin Time 9.5 sec (9.0-12.0); Total Bilirubin 0.2 mg/dL (0.2-1.3); Total Protein 6.6 g/dL (6.3-8.2)
[2020-02-14] MEDS: SODIUM CHLORIDE 0.9% 1,000 ML IV SCH ×2 (02:36→11:56)
[2020-02-14] MEDS ORDERED: ACETAMINOPHEN TAB 325 MG TAB PO PRN (06:00)
[2020-02-14] MEDS ORDERED: FAMOTIDINE 20 MG/2 ML VIAL IV SCH (09:00)
[2020-02-14] MEDS: clonazePAM 1 MG TAB PO SCH ×2 (09:37→20:51)
[2020-02-14] MEDS: lamoTRIgine 100 MG TAB PO SCH ×2 (09:37→20:51)
[2020-02-14] MEDS: TOPIRAMATE 100 MG TAB PO SCH (09:37)
[2020-02-14] MEDS: SERTRALINE 50 MG TAB PO SCH (09:37)
[2020-02-14] MEDS: ASPIRIN 325 MG TAB PO SCH (11:55)
--- NOTE | 2020-02-14 12:36 | P.CNNES ---
History of Present Illness Consult date: 02/14/20 Requesting physician: Malcolm Piper Reason for Consult: Right-sided weakness History of Present Illness: Patient is a 54-year-old female came to the hospital shortly after midnight today at 12:11 AM for right-sided weakness. Patient states that last night she was watching TV when at around 10 to 10:30 PM, she couldn't concentrate. She did not feel right. She states that she opened the bed and laid down. However she noticed right side was weak, therefore she decided to come to the ER. (Patient is not a good historian, changes the story. Patient initially stated that her symptoms started last Tuesday, as today is . I asked what day of the week is today, and she could not tell me. 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 Then she started saying her symptoms started last night.) Vital signs on arrival was blood pressure 165/80, pulse rate [address] head normal. There is postsurgical changes within the right mastoid air cells. Complete opacification of the right middle ear. CTA of head nega tive with no significant stenosis or aneurysm. CTA of the neck also normal. Chest x-ray no acute findings. EKG shows sinus rhythm with first-degree AV block. Patient had a 2-D echo on 12/20/2019, which revealed sinus rhythm, EF between 55-60%. Left atrial size is normal. Mild ER. Mild MR. patient's ED course not available, as the ED note is not signed yet. Patient was seen by myself recently on 12/20/2019 for recurrent syncopal spells, which were felt to be vasovagal. She had iron deficiency anemia at that time. Orthostatics were negative. Tilt table test was recommended if these syncopal spells persist. Patient also has history of seizure disorder since she was age 10. She used to have grand mal seizures, petit mal seizures. She was on Depakote until 1990 when she was switched to Lamictal 200 mg twice a day and Topamax 100 mg the morning and 50 mg at bedtime. She is also on Klonopin 1.5 mg twice a day. Also on Zoloft 50 mg. Patient does not take any antiplatelet medication. Patient states that her seizures are diagnosed as "stress seizures" by Dr. Harmon at [facility]. She describes her seizures as "stiffening, jerking, clenching her teeth" lasting for 2-3 minutes. Patient states that prior to the last seizure, she was having the seizures 3-4 times a week. She does not know why the seizures stopped, she believes it is from less amount of stress. She now follows up with Dr. Brock. Review of Systems Complains of very tiredness. Denies any fever or chills. Denies chest pain, shortness of breath wheezing or cough abdominal pain nausea vomiting diarrhea. Denies any loss of control of urine. She does have seizure disorder. 4 neurological please refer to HPI. Denies any rash, hearing loss, hoarseness, sore throat or dysphagia. Patient states that since yesterday, she is sometimes difficulty thinking of words but no dysarthria. 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 BLOOD TRANSFUSIONS FOR LOW HGB. History of Any Multi-Drug Resistant Organisms: MRSA Date of last positivie culture/infection: 08/10/19 MDRO Source:: URINE Past Surgical History: Appendectomy, Bowel Resection, Cholecystectomy, Ear Surgery, Hysterectomy, Orthopedic Surgery Additional Past Surgical History / Comment(s): frantz knee arthroscopy, hiatal he rnia surgery, rt ear surgery to remove middle ear, lymph node biopsy right armpit Past Anesthesia/Blood Transfusion Reactions: Postoperative Nausea & Vomiting (PONV) Past Psychological History: Anxiety, Panic Disorder Smoking Status: Never smoker Past Alcohol Use History: Occasional Past Drug Use History: None Reported - Past Family History Mother Family Medical History: No Reported History Additional Family Medical History / Comment(s): . Medications and Allergies Home Medications Medication Instructions Recorded Confirmed Type lamoTRIgine [LaMICtal] 200 mg PO BID 09/26/18 02/14/20 History Topiramate 100 mg PO DAILY 12/19/18 02/14/20 History clonazePAM [KlonoPIN] 1.5 mg PO Q12H 04/20/19 02/14/20 History Ibuprofen [Motrin] 800 mg PO BID PRN 11/30/19 02/14/20 History Topiramate 50 mg PO HS 12/19/19 02/14/20 History Sertraline [Zoloft] 50 mg PO DAILY 02/06/20 02/14/20 History Allergies Allergy/AdvReac Type Severity Reaction Status Date / Time erythromycin base Allergy Rash/Hives Verified 02/14/20 07:38 gadobutrol [From Gadavist] Allergy Anaphylaxis Verified 02/14/20 07:38 Gadolinium-Containing Allergy Anaphylaxis Verified 02/14/20 07:38 Contrast Medi iodine Allergy Anaphylaxis Verified 02/14/20 07:38 ketorolac tromethamine Allergy Rash/Hives/ Verified 02/14/20 07:38 [From Toradol] hallucinati ons Penicillins Allergy Anaphylaxis Verified 02/14/20 07:38 azithromycin AdvReac red face Verified 02/14/20 07:38 lorazepam [From Ativan] AdvReac Hallucinati Verified 02/14/20 07:38 ons Physical Examination - Vital Signs Vital Signs: Vital Signs Temp Pulse Pulse Resp BP BP Pulse Ox 02/14/20 04:26 16 02/14/20 02:45 59 L 16 144/84 99 02/14/20 02:36 97.6 F 60 16 121/64 99 02/14/20 02:30 98.7 F 94 16 154/79 99 02/14/20 02:00 58 L 16 111/75 96 02/14/20 01:45 58 L 18 109/55 02/14/20 01:30 61 18 02/14/20 01:00 66 19 165/77 97 02/14/20 00:59 67 19 165/77 97 02/14/20 00:30 70 19 167/81 97 02/14/20 00:21 97.9 F 73 19 136/56 96 02/14/20 00:15 72 19 165/80 96 Intake and Output 02/13/20 02/14/20 02/14/20 22:59 06:59 14:59 Intake Total 400 Output Total 0 450 Balance 400 -450 Intake: Intake, IV Titration 400 Amount Sodium Chloride 0.9% 1, 400 000 ml @ 100 mls/hr IV . Q10H EVERARDO Rx#:[id number] Oral 0 Output: Urine 0 450 Other: Voiding Method Bedpan Weight 79 kg On examination patient is a middle aged female, in no acute distress. She is alert and awake. She sometimes speaks random and goes out of the topic being discussed. No aphasia or dysarthria. On cranial nerve examination pupils are round and reacting to light, visual moreon are full on confrontation, no gaze deviation/preference, extraocular muscles are intact with no nystagmus. Face is symmetric although patient has very minimal flattening of the right nasolabial fold. Tongue protrudes the midline. Palatal elevation and sensation normal. Hearing and shoulder shrug normal. Facial sensation normal. On muscle strength testing the strength is normal in the left arm and left leg. Patient is 0/5 in the right arm and right leg, except that she can wiggle her right little finger, and slightly move her elbow. No strength in the right leg. Sen sations are decreased in the right side of the body, arm and leg, with no touch pinprick or pinching sensation. At times appears functional. No ataxia for [id number] on the left, cannot perform on the right. Gait deferred. There is no carotid bruit, S1 and S2 audible, abdomen soft nontender, chest is clear. Peripheral pulses present. No edema. Results - Laboratory Findings CBC and BMP: 02/14/20 00:48 02/14/20 00:48 Abnormal Lab Findings: Abnormal Labs 02/14/20 02/14/20 00:48 00:48 Hgb 10.9 L RDW 17.5 H Chloride 109 H BUN 29 H Alkaline Phosphatase 182 H Assessment and Plan Assessment: * Acute right hemiparesis, rule out CVA, rule out functional disorder. * History of syncopal spells likely vasovagal * History of "stress seizures" * Anemia Plan: * Stat MRI of the brain to evaluate for an acute stroke. * Start aspirin 325 mg daily. * Telemetric monitoring so far showing first-degree AV block, sinus bradycardia and some PACs. Patient does have a loop recorder as well. * Hemoglobin A1c. * Lipid panel showed cholesterol 260, LDL 151, HDL 74 and triglycerides 175 from 12/19/2019. We will start Lipitor 20 mg daily. * PT OT evaluating.
--- NOTE | 2020-02-14 13:29 | P.HPIM ---
History of Present Illness H&P Date: 02/14/20 Chief Complaint: Right-sided weakness This is a 54-year-old female with past medical history of seizure disorder, anxiety, panic disorder, colon cancer with history of colectomy, chronic anemia, fibromyalgia, stress seizures and multiple other medical issues presenting to the ER with complaints of right-sided weakness that started last night. Patient stated she felt prickly on the right entire side while watching TV with her friend next door,. Returned to her apartment, laid down to rest. After about half an hour, weakness progressed, phoned her parents and EMS; brought into the ER. Brain CT reported no acute findings. CTA of neck reported normal. Chest x-ray reported no acute findings. EKG reported sinus rhythm with first-degree AV block, left axis deviation, right bundle branch block, possible lateral infarct, age undetermined. Troponin negative. Denies chest pain, palpitations or shortness of breath. Hematology unremarkable with the exception of hem oglobin 10.9. BUN 29 creatinine 0.97. Alk phos 182. Afebrile. Review of Systems ROS Statement: Those systems with pertinent positive or pertinent negative responses have been documented in the HPI. ROS Other: All systems not noted in ROS Statement are negative. 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 BLOOD TRANSFUSIONS FOR LOW HGB. History of Any Multi-Drug Resistant Organisms: MRSA Date of last positivie culture/infection: 08/10/19 MDRO Source:: URINE Past Surgical History: Appendectomy, Bowel Resection, Cholecystectomy, Ear Surgery, Hysterectomy, Orthopedic Surgery Additional Past Surgical History / Comment(s): frantz knee arthroscopy, hiatal hernia surgery, rt ear surgery to remove middle ear, lymph node biopsy right armpit Past Anesthesia/Blood Transfusion Reactions: Postoperative Nausea & Vomiting (PONV) Past Psychological History: Anxiety, Panic Disorder Smoking Status: Never smoker Past Alcohol Use History: Occasional Past Drug Use History: None Reported - Past Family History Mother Family Medical History: No Reported History Additional Family Medical History / Comment(s): . Medications and Allergies Home Medications Medication Instructions Recorded Confirmed Type lamoTRIgine [LaMICtal] 200 mg PO BID 09/26/18 02/14/20 History Topiramate 100 mg PO DAILY 12/19/18 02/14/20 History clonazePAM [KlonoPIN] 1.5 mg PO Q12H 04/20/19 02/14/20 History Ibuprofen [Motrin] 800 mg PO BID PRN 11/30/19 02/14/20 History Topiramate 50 mg PO HS 12/19/19 02/14/20 History Sertraline [Zoloft] 50 mg PO DAILY 02/06/20 02/14/20 History Allergies Allergy/AdvReac Type Severity Reaction Status Date / Time erythromycin base Allergy Rash/Hives Verified 02/14/20 07:38 gadobutrol [From Gadavist] Allergy Anaphylaxis Verified 02/14/20 07:38 Gadolinium-Containing Allergy Anaphylaxis Verified 02/14/20 07:38 Contrast Medi iodine Allergy Anaphylaxis Verified 02/14/20 07:38 ketorolac tromethamine Allergy Rash/Hives/ Verified 02/14/20 07:38 [From Toradol] hallucinati ons Penicillins Allergy Anaphylaxis Verified 02/14/20 07:38 azithromycin AdvReac red face Verified 02/14/20 07:38 lorazepam [From Ativan] AdvReac Hallucinati Verified 02/14/20 07:38 ons Physical Exam Vitals: Vital Signs Temp Pulse Pulse Resp BP BP Pulse Ox 02/14/20 04:26 16 02/14/20 02:45 59 L 16 144/84 99 02/14/20 02:36 97.6 F 60 16 121/64 99 02/14/20 02:30 98.7 F 94 16 154/79 99 02/14/20 02:00 58 L 16 111/75 96 02/14/20 01:45 58 L 18 109/55 02/14/20 01:30 61 18 02/14/20 01:00 66 19 165/77 97 02/14/20 00:59 67 19 165/77 97 02/14/20 00:30 70 19 167/81 97 02/14/20 00:21 97.9 F 73 19 136/56 96 02/14/20 00:15 72 19 165/80 96 Intake and Output 02/13/20 02/14/20 02/14/20 22:59 06:59 14:59 Intake Total 400 Output Total 0 450 Balance 400 -450 Intake: Intake, IV Titration 400 Amount Sodium Chloride 0.9% 1, 400 000 ml @ 100 mls/hr IV . Q10H EVERARDO Rx#:[id number] Oral 0 Output: Urine 0 450 Other: Voiding Method Bedpan Weight 79 kg PHYSICAL EXAM: VITAL SIGNS: [As above] GENERAL: Sitting up in bed, no acute distress HEENT: Conjunctivae normal. eyes normal. NECK: No JVD. No thyroid enlargement. No LNs CARDIOVASCULAR: S1, S2 regular.. No murmur RESPIRATION: Breath sounds diminished in the bases. No rhonchi or crackles. No bronchial breathing. ABDOMEN: Soft, nontender . No guarding. no masses palpable. No ascites, No hepatosplenomegaly.Bowel sounds heard. LEGS: No edema. no swelling PSYCHIATRY: Alert and oriented X3, mood and affect normal. NERVOUS SYSTEM: Face symmetrical, no nystagmus, no facial droop, fluent speech, rambles at times. Shoulder shrug normal .Right arm and right leg flaccid, 0/5 with decreased sensation. Skin: Warm and dry, no rash Lymphatic system. No LN neck axilla. Results CBC & Chem 7: 02/14/20 00:48 02/14/20 00:48 Labs: Abnormal Lab Results - Last 24 Hours (Table) 02/14/20 02/14/20 Range/Units 00:48 00:48 Hgb 10.9 L (11.4-16.0) gm/dL RDW 17.5 H (11.5-15.5) % Chloride 109 H (98-107) mmol/L BUN 29 H (7-17) mg/dL Alkaline Phosphatase 182 H (38-126) U/L Assessment and Plan Assessment: Possible acute CVA with acute right hemiparesis, possible functional disorder Sinus bradycardia, first-degree AV block Loop Recorder Hypertension History of stress seizures History of colon cancer with colectomy Chronic anemia Fibromyalgia History of syncope Anxiety, panic disorder PONV Hyperlipidemia Plan: Continue on current medication regime ,monitoring and symptomatic treatment. Neurology workup in progress, MRA pending. Aspirin and statin initiated. Follow closely with neurology. The impression and plan of care has been dictated as directed. : I performed a history and examination of this patient, discussed the same with the dictator. I agree with the dictator's note ,documented as a scribe. Any additional findings or plans will be noted.
--- NOTE | 2020-02-14 14:10 | MR ---
EXAMINATION TYPE: MR brain wo con DATE OF EXAM: 02/14/2020 COMPARISON: CT brain earlier today. HISTORY: r/o stroke acute. Acute onset neural deficit. Code stroke earlier today. TECHNIQUE: Multiplanar, multisequence imaging of the brain and brainstem is performed without IV cont rast. FINDINGS: Some motion artifact degradation. Diffusion weighted images demonstrate no evidence of a recent infarct or other diffusion abnormality. There is no extraaxial fluid collection or significant white matter signal abnormality. Occasional pu nctate T2 hyperintense focus, for reference two lesions in the frontal lobes axial image 18 measuring under 3 mm in size. The ventricular system and cisternal spaces are normal in size and appearance. The brain volume is age appropriate. Midline structures demonstrate normal morphology. The craniocervical junction appears within normal limits. Normal vascular flow voids are present. The visualized sinuses are clear and the globes are i ntact. IMPRESSION: No MRI evidence for a recent infarct. Fairly unremarkable study.
[2020-02-14] MEDS: FAMOTIDINE 20 MG TAB PO SCH (20:49)
[2020-02-14] MEDS ORDERED: TOPIRAMATE 25 MG TAB PO SCH (21:00)
[2020-02-14] MEDS ORDERED: NITROGLYCERIN SL TABS 0.4 MG TAB SUBLINGUAL ONE (22:59)
[2020-02-14] MEDS ORDERED: KETOROLAC 15 MG/ML 1 ML VIAL IVP STA (23:15)
[2020-02-15] MEDS ORDERED: KETOROLAC 15 MG/ML 1 ML VIAL IVP STA (00:46)
[2020-02-15] MEDS ORDERED: hydrOXYzine HCL 25 MG TAB PO ONE (01:00)
[2020-02-15] MEDS: SODIUM CHLORIDE 0.9% 1,000 ML IV SCH (01:04)
[2020-02-15] MEDS ORDERED: ASPIRIN 325 MG TAB PO SCH (01:53)
[2020-02-15] MEDS: FAMOTIDINE 20 MG TAB PO SCH (09:08)
[2020-02-15] MEDS: lamoTRIgine 100 MG TAB PO SCH (09:08)
[2020-02-15] MEDS: TOPIRAMATE 100 MG TAB PO SCH (09:09)
[2020-02-15] MEDS: SERTRALINE 50 MG TAB PO SCH (09:09)
[2020-02-15] MEDS: ASPIRIN 325 MG TAB PO SCH (09:09)
[2020-02-15] MEDS: clonazePAM 1 MG TAB PO SCH (09:09)
[2020-02-15 09:20] VITALS: BP 106/53; PULSE 63; RESP 16; TEMP 97.1
[2020-02-15 11:11] LABS: Cholesterol 219 mg/dL (<200); HDL Cholesterol 74 mg/dL (40-60); LDL Cholesterol,Calculated 131 mg/dL (0-99); Triglycerides 70 mg/dL (<150)
--- NOTE | 2020-02-15 13:40 | P.DS ---
Providers Date of admission: 02/14/20 01:54 Expected date of discharge: 02/15/20 Attending physician: Scott Medrano Consults: 02/14/20 01:52 Consult Physician Routine Consulting Provider: Shireen Crook Consult Reason/Comments: Right sided weakness Do you want consulting provider notified?: Yes Primary care physician: Scott Medrano Hospital Course: Final Diagnoses: Acute right hemiparesis, possible functional disorder Sinus bradycardia, first-degree AV block, currently sinus rhythm Loop Recorder Hypertension History of stress seizures History of colon cancer with colectomy Chronic anemia Fibromyalgia History of syncope Anxiety, panic disorder PONV Hyperlipidemia Hospital course:This is a 54-year-old female with past medical history of seizure disorder, anxiety, panic disorder, colon cancer with history of colectomy, chronic anemia, fibromyalgia, stress seizures and multiple other medical issues presenting to the ER with complaints of right-sided weakness that started last night. Patient stated she felt prickly on the right entire side while watching TV with her friend next door,. Returned to her apartment, laid down to rest. After about half an hour, weakness progressed, phoned her parents and EMS; brought into the ER. Brain CT reported no acute findings. CTA of neck reported normal. Chest x-ray reported no acute findings. EKG reported sinus rhythm with first-degree AV block, left axis deviation, right bundle branch block, possible lateral infarct, age undetermined. Troponin negative. Denies chest pain, palpitations or shortness of breath. Hematology unremarkable with the exception of hemoglobin 10.9. BUN 29 creatinine 0.97. Alk phos 182. Afebrile. Evaluated by neurology with neuro workup completed. Initially psychiatry consulted. Consult was canceled as requested per PCP, patient refusing. Significant clinical improvement. Patient has been advised to use wheelchair, follow-up with PCP in 3 days and her own neurologist, Dr. Reina within 1 week. Patient will be discharged home today in stable condition with guarded prognosis, pending final DC recommendations and clearance from neurology. The impression and plan of care has been dictated as directed. : I performed a history and examination of this patient, discussed the same with the dictator. I agree with the dictator's note ,documented as a scribe. Any additional findings or plans will be noted. Patient Condition at Discharge: Stable Plan - Discharge Summary Discharge Rx Participant: No New Discharge Prescriptions: New Famotidine [Pepcid] 20 mg PO Q12HR #60 tab Continue lamoTRIgine [LaMICtal] 200 mg PO BID Topiramate 100 mg PO DAILY clonazePAM [KlonoPIN] 1.5 mg PO Q12H Ibuprofen [Motrin] 800 mg PO BID PRN PRN Reason: Pain Topiramate 50 mg PO HS Sertraline [Zoloft] 50 mg PO DAILY Discharge Medication List lamoTRIgine [LaMICtal] 200 mg PO BID 09/26/18 [History] Topiramate 100 mg PO DAILY 12/19/18 [History] clonazePAM [KlonoPIN] 1.5 mg PO Q12H 04/20/19 [History] Ibuprofen [Motrin] 800 mg PO BID PRN 11/30/19 [History] Topiramate 50 mg PO HS 12/19/19 [History] Sertraline [Zoloft] 50 mg PO DAILY 02/06/20 [History] Famotidine [Pepcid] 20 mg PO Q12HR #60 tab 02/15/20 [Rx] Follow up Appointment(s)/Referral(s): [facility], [NON-STAFF] - 1 Week Jennifer Reina MD [Medical Doctor] - 1 Week Scott Medrano MD [Primary Care Provider] - 3 Days Activity/Diet/Wound Care/Special Instructions: Pending final DC recommendations and clearance from neurology .Patient has a wheelchair at home, which she has been advised to use. Declining subacute rehab., Reports she will have help at home.
--- NOTE | 2020-02-15 15:07 | P.PN ---
Subjective Progress Note Date: 02/15/20 Patient was seen for a follow-up. Continues to be right hemiplegic, no movement, no sensation. Denies headache. Objective - Vital Signs Vital signs: Vital Signs Temp 97.1 F L 02/15/20 08:00 Pulse 63 02/15/20 08:00 Resp 16 02/15/20 12:00 BP 106/53 02/15/20 08:00 Pulse Ox 98 02/15/20 08:00 Intake & Output 02/14/20 02/15/20 02/15/20 18:59 06:59 18:59 Intake Total 1882 780 Output Total 850 Balance 1032 780 Weight 79.6 kg Intake: IV 820 Invasive Line 1 20 Sodium Chloride 0.9% 1, 800 000 ml @ 100 mls/hr IV . Q10H EVERARDO Rx#:[id number] Oral 1062 780 Output: Urine 850 Other: Voiding Method Bedpan Bedpan # Voids 2 - Exam Patient's mentation is normal. Cranial nerves are normal. On muscle strength testing, the strength is normal in the left arm and left leg. Patient cannot move her right arm or right leg. Some wiggling of the right hand fingers noted. Patient has complete lack of sensation for touch, temperature or pinching in the right arm and right leg. The numbness is extending to the right shoulder almost to the neck junction. No numbness of the facial region. Exam is highly functional. 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 No acute stroke noted on the MRI. * History of syncopal spells likely vasovagal * History of "stress seizures" * Anemia Plan: * MRI of the brain negative for acute stroke or demyelinating disease. * Continue aspirin 325 mg daily. * Telemetric monitoring so far showing sinus rhythm, with sinus bradycardia in the 50s. * Hemoglobin A1c 5.0. * Lipid panel showed cholesterol 260, LDL 151, HDL 74 and triglycerides 175 from 12/19/2019. Continue Lipitor 20 mg daily. * PT OT evaluating.
[2020-02-15] MEDS ORDERED: ATORVASTATIN 20 MG TAB PO SCH (21:00)
== END 2020-02-15 16:28 | disposition home health service (06) ==
LOC: EC 00:11 → INTOOBSV 01:54 → 3SCARD 01:54 → UNDODISIN 02-15 16:28
PROVIDERS: ADMIT Family Medicine; ATTEND Family Medicine
DX: R53.1 Weakness (principal); G40.409 Other generalized epilepsy and epileptic syndromes, not intractable, without status epilepticus; I44.0 Atrioventricular block, first degree; I45.10 Unspecified right bundle-branch block; M79.7 Fibromyalgia; L40.9 Psoriasis, unspecified; G43.909 Migraine, unspecified, not intractable, without status migrainosus; F41.0 Panic disorder [episodic paroxysmal anxiety]; I10 Essential (primary) hypertension; E78.5 Hyperlipidemia, unspecified; D50.9 Iron deficiency anemia, unspecified; G47.00 Insomnia, unspecified; Z79.899 Other long term (current) drug therapy; Z91.041 Radiographic dye allergy status; Z88.0 Allergy status to penicillin; Z88.1 Allergy status to other antibiotic agents; Z88.8 Allergy status to other drugs, medicaments and biological substances; Z87.01 Personal history of pneumonia (recurrent); Z85.038 Personal history of other malignant neoplasm of large intestine; Z90.49 Acquired absence of other specified parts of digestive tract; Z90.710 Acquired absence of both cervix and uterus; Z98.890 Other specified postprocedural states; Z86.14 Personal history of Methicillin resistant Staphylococcus aureus infection; Z86.79 Personal history of other diseases of the circulatory system
CPT/HCPCS: 96376 ×3; 93005 ×3; 96361; 96374 ×2; 96375 ×2; 99285; 99291; 36415 ×2; 97530 ×2; 97162; 97535; 97166; 92523; 85379; 83880; 80061; 80053 ×2; 83690; 83735; 84484 ×2; 85025 ×2; 85610 ×2; 85730 ×2; 83036; 71045; 71046; 70496; 70450; 70498; 70551; G0378 ×2; J1200; J2930; J2405; J1885; J1170; Q9967

== ENCOUNTER 2020-04-27 21:01 | Emergency (ER) | payer OTHER ==
[2020-04-27 21:14] VITALS: TEMP 97.8
[2020-04-27] MEDS ORDERED: ACETAMINOPHEN TAB 500 MG TAB PO STA (21:26)
[2020-04-27] MEDS ORDERED: SODIUM CHLORIDE 0.9% 500 ML 500 ML IV STA (21:26)
[2020-04-27 21:39] LABS: Basophils # (A) 0.1 k/uL (0-0.2); Basophils % (A) 1 %; Eosinophils # (A) 0.2 k/uL (0-0.7); Eosinophils % (A) 2 %; HGB 9.3 gm/dL (11.4-16.0); Hypochromasia Slight; Lymphocytes # (A) 2.1 k/uL (1.0-4.8); Lymphocytes % (A) 29 %; MCH 26.4 pg (25.0-35.0); MCHC 32.3 g/dL (31.0-37.0); MCV 81.7 fL (80.0-100.0); Mean Platelet Volume 7.5; Monocytes # (A) 0.3 k/uL (0-1.0); Monocytes % (A) 4 %; Neutrophils # (A) 4.6 k/uL (1.3-7.7); Neutrophils % (A) 63 %; Platelet Count 306 k/uL (150-450); RBC 3.55 m/uL (3.80-5.40); RDW 13.5 % (11.5-15.5); WBC 7.3 k/uL (3.8-10.6)
--- NOTE | 2020-04-27 21:48 | CT ---
EXAMINATION TYPE: CT brain wo con DATE OF EXAM: 04/27/2020 COMPARISON: 02/14/2020 HISTORY: headache post syncope. CT DLP: 1055.4 mGycm Automated exposure control for dose reduction was used. Ventricles and sulci appear normal. There is no mass effect nor midline shift. There is no sign of in tracranial hemorrhage. Calvarium is intact. There is no evidence of cerebral edema. IMPRESSION: Normal unenhanced head CT scan. No change.
--- NOTE | 2020-04-27 21:50 | XR ---
EXAMINATION TYPE: XR chest 2V DATE OF EXAM: 04/27/2020 COMPARISON: 02/14/2020 HISTORY: Weakness TECHNIQUE: FINDINGS: There is no heart failure nor confluent pneumonic infiltrate. Costophrenic angles are clear . There are no hilar masses. Bony thorax is intact. IMPRESSION: No active cardiopulmonary disease. Normal heart. No change.
--- NOTE | 2020-04-27 21:53 | ED ---
General Adult HPI - General Chief complaint: Fall Stated complaint: Syncope Time Seen by Provider: 04/27/20 21:04 Source: patient, EMS Mode of arrival: EMS - History of Present Illness Initial comments: 54-year-old female patient presents to the emergency department today for eval uation after having a syncopal episode. Patient states that she was walking through her home, next thing she knew she was surrounded by emergency medical service personnel. Patient does not remember falling or hitting her head. States she currently has a headache. Denies blurred or double vision. Denies any dizziness or weakness. Denies numbness, tingly, weakness to her extremities. Denies any chest pain or shortness of breath. States she has been having a lot of diarrhea lately. Denies any abdominal pain. Denies fever or chills. Denies taking anticoagulants or antiplatelet medications. Denies any new medications. Patient denies any recent rash, cough, abdominal pain, nausea, vomiting, constipation, back pain, hematuria, dysuria, urinary urgency, urinary frequency, or any other complaints. - Related Data Home Medications Medication Instructions Recorded Confirmed lamoTRIgine [LaMICtal] 200 mg PO BID 09/26/18 04/27/20 Topiramate 100 mg PO DAILY 12/19/18 04/27/20 clonazePAM [KlonoPIN] 1.5 mg PO Q12H 04/20/19 04/27/20 Ibuprofen [Motrin] 800 mg PO BID PRN 11/30/19 04/27/20 Topiramate 50 mg PO HS 12/19/19 04/27/20 Sertraline [Zoloft] 100 mg PO DAILY 02/06/20 04/27/20 Allergies Allergy/AdvReac Type Severity Reaction Status Date / Time erythromycin base Allergy Rash/Hives Verified 04/27/20 22:05 gadobutrol [From Gadavist] Allergy Anaphylaxis Verified 04/27/20 22:05 Gadolinium-Containing Allergy Anaphylaxis Verified 04/27/20 22:05 Contrast Medi iodine Allergy Anaphylaxis Verified 04/27/20 22:05 ketorolac tromethamine Allergy Rash/Hives/ Verified 04/27/20 22:05 [From Toradol] hallucinati ons Penicillins Allergy Anaphylaxis Verified 04/27/20 22:05 azithromycin AdvReac red face Verified 04/27/20 22:05 lorazepam [From Ativan] AdvReac Hallucinati Verified 04/27/20 22:05 ons Review of Systems ROS Statement: Those systems with pertinent positive or pertinent negative responses have been documented in the HPI. ROS Other: All systems not noted in ROS Statement are negative. 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 BLOOD TRANSFUSIONS FOR LOW HGB. History of Any Multi-Drug Resistant Organisms: MRSA Date of last positivie culture/infection: 08/10/19 MDRO Source:: URINE Past Surgical History: Appendectomy, Bowel Resection, Cholecystectomy, Ear Surgery, Hysterectomy, Orthopedic Surgery Additional Past Surgical History / Comment(s): frantz knee arthroscopy, hiatal hernia surgery, rt ear surgery to remove middle ear, lymph node biopsy right armpit Past Anesthesia/Blood Transfusion Reactions: Postoperative Nausea & Vomiting (PONV) Past Psychological History: Anxiety, Panic Disorder Smoking Status: Never smoker Past Alcohol Use History: Occasional Past Drug Use History: None Reported - Past Family History Mother Family Medical History: No Reported History Additional Family Medical History / Comment(s): . General Exam General appearance: alert, in no apparent distress, other (This is a well- developed, well-nourished adult female patient in no acute distress. Vital signs upon presentation are temperature 97.8F, pulse 76, respirations 16, blood pressure 135/64, pulse ox 96% on room air.) Eye exam: Present: normal appearance, PERRL, EOMI. Absent: scleral icterus, conjunctival injection, periorbital swelling ENT exam: Present: normal exam, normal oropharynx, mucous membranes moist Neck exam: Present: normal inspection, full ROM, other (Nontender, no step-off, no deformity to firm midline palpation of the posterior cervical spine. Full range of motion without pain or limitation.). Absent: tenderness, meningismus, lymphadenopathy Respiratory exam: Present: normal lung sounds bilaterally. Absent: respiratory distress, wheezes, rales, rhonchi, stridor Cardiovascular Exam: Present: regular rate, normal rhythm, normal heart sounds. Absent: systolic murmur, diastolic murmur, rubs, gallop, clicks GI/Abdominal exam: Present: soft, normal bowel sounds. Absent: distended, tenderness, guarding, rebound, rigid Back exam: Present: normal inspection. Absent: vertebral tenderness Neurological exam: Present: alert, oriented X3, CN II-XII intact Psychiatric exam: Present: normal affect, normal mood Skin exam: Present: warm, dry, intact, normal color. Absent: rash Course Vital Signs 04/27/20 04/27/20 04/27/20 21:03 22:00 23:51 Temperature 97.8 F Pulse Rate 76 70 Respiratory 16 16 18 Rate Blood Pressure 135/64 143/74 128/78 O2 Sat by Pulse 96 99 Oximetry EKG Findings - EKG Comments: EKG Findings:: EKG obtained at 2125 shows normal sinus rhythm with a right bundle branch block, left anterior fascicular block. Ventricular rate is 72, NM interval 192, QRS duration 164, QT 450, QTC 492. EKG is consistent with previous. Medical Decision Making - Medical Decision Making 54-year-old female patient presents to the emergency department today for evaluation after possibly having a syncopal episode. Physical examination is unremarkable. She is neurologically intact with no focal deficits. Labs revi ewed and did reveal no significant changes from baseline. CT brain was obtained and was negative. EKG was unremarkable. Chest x-ray is negative. Upon reevaluation patient is resting comfortably in bed. Does seem eager to be discharged. She is instructed to follow-up with her primary care physician for recheck in 1-2 days. Return parameters were discussed in detail. She verbalizes understanding and agrees with this plan. - Lab Data Result diagrams: 04/27/20 21:34 04/27/20 21:34 Lab Results 04/27/20 04/27/20 04/27/20 Range/Units 21:34 21:34 21:34 WBC 7.3 (3.8-10.6) k/uL RBC 3.55 L (3.80-5.40) m/uL Hgb 9.3 L (11.4-16.0) gm/dL Hct 29.0 L (34.0-46.0) % MCV 81.7 (80.0-100.0) fL MCH 26.4 (25.0-35.0) pg MCHC 32.3 (31.0-37.0) g/dL RDW 13.5 (11.5-15.5) % Plt Count 306 (150-450) k/uL MPV 7.5 Neutrophils % 63 % Lymphocytes % 29 % Monocytes % 4 % Eosinophils % 2 % Basophils % 1 % Neutrophils # 4.6 (1.3-7.7) k/uL Lymphocytes # 2.1 (1.0-4.8) k/uL Monocytes # 0.3 (0-1.0) k/uL Eosinophils # 0.2 (0-0.7) k/uL Basophils # 0.1 (0-0.2) k/uL Hypochromasia Slight PT 9.7 (9.0-12.0) sec INR 0.9 (<1.2) APTT 21.4 L (22.0-30.0) sec D-Dimer 0.21 (<0.60) mg/L FEU Sodium 143 (137-145) mmol/L Potassium 3.8 (3.5-5.1) mmol/L Chloride 111 H (98-107) mmol/L Carbon Dioxide 23 (22-30) mmol/L Anion Gap 9 mmol/L BUN 23 H (7-17) mg/dL Creatinine 1.10 H (0.52-1.04) mg/dL Est GFR (CKD-EPI)AfAm 66 (>60 ml/min/1.73 sqM) Est GFR (CKD-EPI)NonAf 57 (>60 ml/min/1.73 sqM) Glucose 96 (74-99) mg/dL Calcium 9.3 (8.4-10.2) mg/dL Magnesium 2.0 (1.6-2.3) mg/dL Total Bilirubin 0.3 (0.2-1.3) mg/dL AST 23 (14-36) U/L ALT 14 (4-34) U/L Alkaline Phosphatase 158 H (38-126) U/L Troponin I (0.000-0.034) ng/mL Total Protein 6.8 (6.3-8.2) g/dL Albumin 3.8 (3.5-5.0) g/dL 04/27/20 Range/Units 21:34 WBC (3.8-10.6) k/uL RBC (3.80-5.40) m/uL Hgb (11.4-16.0) gm/dL Hct (34.0-46.0) % MCV (80.0-100.0) fL MCH (25.0-35.0) pg MCHC (31.0-37.0) g/dL RDW (11.5-15.5) % Plt Count (150-450) k/uL MPV Neutrophils % % Lymphocytes % % Monocytes % % Eosinophils % % Basophils % % Neutrophils # (1.3-7.7) k/uL Lymphocytes # (1.0-4.8) k/uL Monocytes # (0-1.0) k/uL Eosinophils # (0-0.7) k/uL Basophils # (0-0.2) k/uL Hypochromasia PT (9.0-12.0) sec INR (<1.2) APTT (22.0-30.0) sec D-Dimer (<0.60) mg/L FEU Sodium (137-145) mmol/L Potassium (3.5-5.1) mmol/L Chloride (98-107) mmol/L Carbon Dioxide (22-30) mmol/L Anion Gap mmol/L BUN (7-17) mg/dL Creatinine (0.52-1.04) mg/dL Est GFR (CKD-EPI)AfAm (>60 ml/min/1.73 sqM) Est GFR (CKD-EPI)NonAf (>60 ml/min/1.73 sqM) Glucose (74-99) mg/dL Calcium (8.4-10.2) mg/dL Magnesium (1.6-2.3) mg/dL Total Bilirubin (0.2-1.3) mg/dL AST (14-36) U/L ALT (4-34) U/L Alkaline Phosphatase (38-126) U/L Troponin I <0.012 (0.000-0.034) ng/mL Total Protein (6.3-8.2) g/dL Albumin (3.5-5.0) g/dL - Radiology Data Radiology results: report reviewed, image reviewed CT brain without contrast was obtained. Report is reviewed in its entirety. Impression by Dr. Valdes shows normal unenhanced head CT scan. No change. Two-view x-ray of the chest is obtained. Report is reviewed in its entirety. Impression by Dr. Valdes shows no active cardiopulmonary disease. Normal heart. No change. Disposition Clinical Impression: Syncope, Headache Disposition: HOME SELF-CARE Condition: Good Instructions (If sedation given, give patient instructions): Syncope (ED), Acute Headache (ED) Additional Instructions: Follow up with your primary care physician for recheck in 1-2 days. Return to the emergency department for any new, worsening, or concerning symptoms Is patient prescribed a controlled substance at d/c from ED?: No Referrals: Scott Medrano MD [Primary Care Provider] - 1-2 days Time of Disposition: 23:32
[2020-04-27 22:25] LABS: Albumin 3.8 g/dL (3.5-5.0); Calcium 9.3 mg/dL (8.4-10.2); Potassium 3.8 mmol/L (3.5-5.1); Total Bilirubin 0.3 mg/dL (0.2-1.3); Total Protein 6.8 g/dL (6.3-8.2)
[2020-04-27 22:28] LABS: D-Dimer 0.21 mg/L FEU (<0.60); INR 0.9 (<1.2); Prothrombin Time 9.7 sec (9.0-12.0)
[2020-04-27 22:34] LABS: Partial Thromboplastin Time 21.4 sec (22.0-30.0)
[2020-04-27] MEDS ORDERED: ONDANSETRON 4 MG/2 ML VIAL IVP STA (23:03)
[2020-04-27 23:51] VITALS: BP 128/78; PULSE 70; RESP 18
== END 2020-04-27 23:51 | disposition home or self-care (01) ==
LOC: EC 21:01
DX: R55 Syncope and collapse (principal); R51.9 Headache, unspecified; R19.7 Diarrhea, unspecified; G40.409 Other generalized epilepsy and epileptic syndromes, not intractable, without status epilepticus; F41.9 Anxiety disorder, unspecified; Z79.899 Other long term (current) drug therapy; Z88.1 Allergy status to other antibiotic agents; Z88.8 Allergy status to other drugs, medicaments and biological substances; Z91.048 Other nonmedicinal substance allergy status; Z88.5 Allergy status to narcotic agent; Z88.0 Allergy status to penicillin; Z85.038 Personal history of other malignant neoplasm of large intestine
CPT/HCPCS: 36415; 93005; 85379; 80053; 83735; 84484; 85025; 85610; 85730; 71046; 70450; 99285; 96374; 96361; J2405

== ENCOUNTER 2020-04-28 22:10 | Observation (INO) | payer OTHER ==
[2020-04-28 22:59] LABS: Basophils # (A) 0.1 k/uL (0-0.2); Basophils % (A) 1 %; Eosinophils # (A) 0.2 k/uL (0-0.7); Eosinophils % (A) 2 %; HCT 30.5 % (34.0-46.0); HGB 9.8 gm/dL (11.4-16.0); Hypochromasia Moderate; Lymphocytes # (A) 1.8 k/uL (1.0-4.8); Lymphocytes % (A) 21 %; MCH 26.5 pg (25.0-35.0); MCV 82.7 fL (80.0-100.0); Mean Platelet Volume 7.1; Monocytes # (A) 0.4 k/uL (0-1.0); Monocytes % (A) 5 %; Neutrophils % (A) 71 %; Platelet Count 307 k/uL (150-450); RBC 3.68 m/uL (3.80-5.40); RDW 13.5 % (11.5-15.5); WBC 8.6 k/uL (3.8-10.6)
[2020-04-28 23:08] LABS: Albumin 4.1 g/dL (3.5-5.0); Calcium 9.4 mg/dL (8.4-10.2); Total Bilirubin 0.3 mg/dL (0.2-1.3); Total Protein 7.1 g/dL (6.3-8.2)
[2020-04-28 23:22] LABS: INR 0.9 (<1.2); Prothrombin Time 9.5 sec (9.0-12.0)
[2020-04-28] MEDS ORDERED: MAG HYDROX/AL HYDROX/SIMETH 30 ML, HYOSCYAMINE ELIXIR 10 ML, LIDOCAINE VISCOUS 2% 10 ML PO STA ×3 (23:32)
[2020-04-28 23:51] LABS: Partial Thromboplastin Time 21.2 sec (22.0-30.0)
--- NOTE | 2020-04-29 00:01 | CT ---
EXAMINATION TYPE: CT abdomen pelvis wo con DATE OF EXAM: 04/28/2020 COMPARISON: 12/28/2019 HISTORY: Abdominal pain CT DLP: 664.10 mGycm Automated exposure control for dose reduction was used. The lung bases are clear. There is no pleural effusion. Heart size is normal. There are clips from cholecystectomy. Liver spleen stomach pancreas appear normal. Bile ducts are not dilated. There are clips from cholecystectomy. There is no adrenal mass. Kidneys have normal size. There is no hydronephrosis. Ureters are not dilat ed. There is no retroperitoneal adenopathy. There is previous surgery at the cecum. Bladder distends smoothly. There is no inguinal hernia. There is no sign of a pelvic mass. There is hysterectomy. Lumb ar vertebra have normal alignment. There is no compression fracture. Bony pelvis appears intact. The hip joints appear normal. There is no ascites or free air. There is no sign of a bowel obstruction. There is no mesenteric hamida a. Appendix is not seen. There are are probably clips from cholecystectomy. IMPRESSION: Negative CT scan of the abdomen pelvis. Previous surgery. No adverse change compared to old exam.
[2020-04-29] MEDS ORDERED: NALOXONE 0.4 MG/ML 1 ML VIAL IV PRN (00:13)
[2020-04-29] MEDS ORDERED: ACETAMINOPHEN TAB 325 MG TAB PO PRN (00:13)
[2020-04-29] MEDS ORDERED: PANTOPRAZOLE 40 MG/10 ML VIAL IVP STA (00:16)
[2020-04-29] MEDS ORDERED: HYDROcodone/APAP 5-325MG 1 EACH TAB PO STA (00:29)
[2020-04-29] MEDS ORDERED: clonazePAM 1 MG TAB PO SCH ×2 (00:30→09:00)
--- NOTE | 2020-04-29 00:30 | ED ---
GI Bleed HPI - General Chief complaint: GI Bleed Stated complaint: Blood in stool Time Seen by Provider: 04/28/20 22:18 Source: patient Mode of arrival: ambulatory Limitations: no limitations - History of Present Illness Initial comments: This patient is a 54-year-old woman with history of previous colon cancer who believes she had a resection approximately 8 years ago, presenting to be evaluated for rectal bleeding. The patient states that she does intermittently have rectal bleeding going back months. She had seen her surgeon Dr. Modi a few months ago for colonoscopy. She states that it recurred today and she has had 3 episodes. She presents with a photo showing some dark stools with blood in the water. She has had some intermittent abdominal cramping diffusely. No fever or chills. No nausea or vomiting. Patient denies other symptoms of anemia, no chest pain, dyspnea, diaphoresis, palpitations or syncope. MD complaint: melena Onset/Timin -: days(s) Quality: cramping Consistency: intermittent Improves with: none Worsens with: none Context: history of GI bleed Associated Symptoms: denies other symptoms Treatments Prior to Arrival: none - Related Data Home Medications Medication Instructions Recorded Confirmed lamoTRIgine [LaMICtal] 200 mg PO BID 09/26/18 04/28/20 Topiramate 100 mg PO DAILY 12/19/18 04/28/20 clonazePAM [KlonoPIN] 1.5 mg PO Q12H 04/20/19 04/28/20 Ibuprofen [Motrin] 800 mg PO BID PRN 11/30/19 04/28/20 Topiramate 50 mg PO HS 12/19/19 04/28/20 Sertraline [Zoloft] 100 mg PO DAILY 02/06/20 04/28/20 Acetaminophen Tab [Tylenol] 325 mg PO ONETIME PRN 04/28/20 04/28/20 Allergies Allergy/AdvReac Type Severity Reaction Status Date / Time erythromycin base Allergy Rash/Hives Verified 04/28/20 23:08 gadobutrol [From Gadavist] Allergy Anaphylaxis Verified 04/28/20 23:08 Gadolinium-Containing Allergy Anaphylaxis Verified 04/28/20 23:08 Contrast Medi iodine Allergy Anaphylaxis Verified 04/28/20 23:08 ketorolac tromethamine Allergy Rash/Hives/ Verified 04/28/20 23:08 [From Toradol] hallucinati ons Penicillins Allergy Anaphylaxis Verified 04/28/20 23:08 azithromycin AdvReac red face Verified 04/28/20 23:08 lorazepam [From Ativan] AdvReac Hallucinati Verified 04/28/20 23:08 ons Review of Systems ROS Statement: Those systems with pertinent positive or pertinent negative responses have been documented in the HPI. ROS Other: All systems not noted in ROS Statement are negative. Constitutional: Denies: fever, chills, weakness Respiratory: Denies: cough, dyspnea Cardiovascular: Denies: chest pain, palpitations, edema Gastrointestinal: Reports: as per HPI, abdominal pain, hematochezia. 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 BLOOD TRANSFUSIONS FOR LOW HGB. History of Any Multi-Drug Resistant Organisms: MRSA Date of last positivie culture/infection: 08/10/19 MDRO Source:: URINE Past Surgical History: Appendectomy, Bowel Resection, Cholecystectomy, Ear Surgery, Hysterectomy, Orthopedic Surgery Additional Past Surgical History / Comment(s): frantz knee arthroscopy, hiatal hernia surgery, rt ear surgery to remove middle ear, lymph node biopsy right armpit Past Anesthesia/Blood Transfusion Reactions: Postoperative Nausea & Vomiting (PONV) Past Psychological History: Anxiety, Panic Disorder Smoking Status: Never smoker Past Alcohol Use History: Occasional Past Drug Use History: None Reported - Past Family History Mother Family Medical History: No Reported History Additional Family Medical History / Comment(s): . General Exam Limitations: no limitations General appearance: alert, in no apparent distress Head exam: Present: atraumatic, normocephalic Eye exam: Present: normal appearance. Absent: scleral icterus, conjunctival injection ENT exam: Present: normal oropharynx Neck exam: Present: normal inspection Respiratory exam: Present: normal lung sounds bilaterally. Absent: respiratory distress, wheezes, rales, rhonchi, stridor Cardiovascular Exam: Present: regular rate, normal rhythm, normal heart sounds. Absent: systolic murmur, diastolic murmur, rubs, gallop GI/Abdominal exam: Present: soft, normal bowel sounds. Absent: distended, te nderness, guarding, rebound, rigid, mass, pulsatile mass, hernia Rectal exam: Present: normal inspection, normal rectal tone, other (Maroon stool). Absent: black stool, fecal impaction, mass, tenderness Extremities exam: Present: normal inspection, normal capillary refill. Absent: pedal edema, calf tenderness Back exam: Present: normal inspection. Absent: CVA tenderness (R), CVA tenderness (L) Neurological exam: Present: alert Skin exam: Present: warm, dry, intact, normal color. Absent: rash Course Vital Signs 04/28/20 22:13 Temperature 98.2 F Pulse Rate 90 Respiratory 18 Rate Blood Pressure 144/63 O2 Sat by Pulse 94 L Oximetry Medical Decision Making - Lab Data Result diagrams: 04/28/20 22:44 04/28/20 22:44 Lab Results 04/28/20 04/28/20 04/28/20 Range/Units 22:44 22:44 22:44 WBC 8.6 (3.8-10.6) k/uL RBC 3.68 L (3.80-5.40) m/uL Hgb 9.8 L (11.4-16.0) gm/dL Hct 30.5 L (34.0-46.0) % MCV 82.7 (80.0-100.0) fL MCH 26.5 (25.0-35.0) pg MCHC 32.0 (31.0-37.0) g/dL RDW 13.5 (11.5-15.5) % Plt Count 307 (150-450) k/uL MPV 7.1 Neutrophils % 71 % Lymphocytes % 21 % Monocytes % 5 % Eosinophils % 2 % Basophils % 1 % Neutrophils # 6.0 (1.3-7.7) k/uL Lymphocytes # 1.8 (1.0-4.8) k/uL Monocytes # 0.4 (0-1.0) k/uL Eosinophils # 0.2 (0-0.7) k/uL Basophils # 0.1 (0-0.2) k/uL Hypochromasia Moderate PT 9.5 (9.0-12.0) sec INR 0.9 (<1.2) APTT 21.2 L (22.0-30.0) sec Sodium 144 (137-145) mmol/L Potassium 4.0 (3.5-5.1) mmol/L Chloride 110 H (98-107) mmol/L Carbon Dioxide 26 (22-30) mmol/L Anion Gap 8 mmol/L BUN 34 H (7-17) mg/dL Creatinine 1.11 H (0.52-1.04) mg/dL Est GFR (CKD-EPI)AfAm 65 (>60 ml/min/1.73 sqM) Est GFR (CKD-EPI)NonAf 57 (>60 ml/min/1.73 sqM) Glucose 104 H (74-99) mg/dL Plasma Lactic Acid Williams (0.7-2.0) mmol/L Calcium 9.4 (8.4-10.2) mg/dL Total Bilirubin 0.3 (0.2-1.3) mg/dL AST 26 (14-36) U/L ALT 14 (4-34) U/L Alkaline Phosphatase 174 H (38-126) U/L Troponin I (0.000-0.034) ng/mL Total Protein 7.1 (6.3-8.2) g/dL Albumin 4.1 (3.5-5.0) g/dL Stool Occult Blood (Negative) Blood Type Blood Type Recheck Bld Type Recheck Status Antibody Screen Spec Expiration Date 04/28/20 04/28/20 04/28/20 Range/Units 22:44 22:44 22:45 WBC (3.8-10.6) k/uL RBC (3.80-5.40) m/uL Hgb (11.4-16.0) gm/dL Hct (34.0-46.0) % MCV (80.0-100.0) fL MCH (25.0-35.0) pg MCHC (31.0-37.0) g/dL RDW (11.5-15.5) % Plt Count (150-450) k/uL MPV Neutrophils % % Lymphocytes % % Monocytes % % Eosinophils % % Basophils % % Neutrophils # (1.3-7.7) k/uL Lymphocytes # (1.0-4.8) k/uL Monocytes # (0-1.0) k/uL Eosinophils # (0-0.7) k/uL Basophils # (0-0.2) k/uL Hypochromasia PT (9.0-12.0) sec INR (<1.2) APTT (22.0-30.0) sec Sodium (137-145) mmol/L Potassium (3.5-5.1) mmol/L Chloride (98-107) mmol/L Carbon Dioxide (22-30) mmol/L Anion Gap mmol/L BUN (7-17) mg/dL Creatinine (0.52-1.04) mg/dL Est GFR (CKD-EPI)AfAm (>60 ml/min/1.73 sqM) Est GFR (CKD-EPI)NonAf (>60 ml/min/1.73 sqM) Glucose (74-99) mg/dL Plasma Lactic Acid Williams 0.9 (0.7-2.0) mmol/L Calcium (8.4-10.2) mg/dL Total Bilirubin (0.2-1.3) mg/dL AST (14-36) U/L ALT (4-34) U/L Alkaline Phosphatase (38-126) U/L Troponin I <0.012 (0.000-0.034) ng/mL Total Protein (6.3-8.2) g/dL Albumin (3.5-5.0) g/dL Stool Occult Blood (Negative) Blood Type A Positive Blood Type Recheck A Pos Bld Type Recheck Status No Antibody Screen NEGATIVE Spec Expiration Date 05/01/2020 - 234404/28/20 Range/Units 23:50 WBC (3.8-10.6) k/uL RBC (3.80-5.40) m/uL Hgb (11.4-16.0) gm/dL Hct (34.0-46.0) % MCV (80.0-100.0) fL MCH (25.0-35.0) pg MCHC (31.0-37.0) g/dL RDW (11.5-15.5) % Plt Count (150-450) k/uL MPV Neutrophils % % Lymphocytes % % Monocytes % % Eosinophils % % Basophils % % Neutrophils # (1.3-7.7) k/uL Lymphocytes # (1.0-4.8) k/uL Monocytes # (0-1.0) k/uL Eosinophils # (0-0.7) k/uL Basophils # (0-0.2) k/uL Hypochromasia PT (9.0-12.0) sec INR (<1.2) APTT (22.0-30.0) sec Sodium (137-145) mmol/L Potassium (3.5-5.1) mmol/L Chloride (98-107) mmol/L Carbon Dioxide (22-30) mmol/L Anion Gap mmol/L BUN (7-17) mg/dL Creatinine (0.52-1.04) mg/dL Est GFR (CKD-EPI)AfAm (>60 ml/min/1.73 sqM) Est GFR (CKD-EPI)NonAf (>60 ml/min/1.73 sqM) Glucose (74-99) mg/dL Plasma Lactic Acid Williams (0.7-2.0) mmol/L Calcium (8.4-10.2) mg/dL Total Bilirubin (0.2-1.3) mg/dL AST (14-36) U/L ALT (4-34) U/L Alkaline Phosphatase (38-126) U/L Troponin I (0.000-0.034) ng/mL Total Protein (6.3-8.2) g/dL Albumin (3.5-5.0) g/dL Stool Occult Blood Positive H (Negative) Blood Type Blood Type Recheck Bld Type Recheck Status Antibody Screen Spec Expiration Date Disposition Clinical Impression: GI bleeding Disposition: ADMITTED IP TO THIS [facility] Condition: Good Instructions (If sedation given, give patient instructions): Gastrointestinal Bleeding (ED) Is patient prescribed a controlled substance at d/c from ED?: No Referrals: Scott Medrano MD [Primary Care Provider] - 1-2 days
[2020-04-29] MEDS: SODIUM CHLORIDE 0.9% 1,000 ML IV SCH ×3 (00:34→16:21)
[2020-04-29] MEDS ORDERED: lamoTRIgine 100 MG TAB PO SCH (09:00)
[2020-04-29] MEDS ORDERED: PANTOPRAZOLE 40 MG/10 ML VIAL IV SCH (09:00)
[2020-04-29] MEDS ORDERED: SERTRALINE 50 MG TAB PO SCH (09:00)
[2020-04-29] MEDS ORDERED: TOPIRAMATE 25 MG TAB PO SCH ×2 (09:00→21:00)
[2020-04-29 11:11] LABS: Basophils % (A) 1 %; Eosinophils # (A) 0.1 k/uL (0-0.7); Eosinophils % (A) 2 %; HCT 26.2 % (34.0-46.0); Hypochromasia Marked; Lymphocytes # (A) 0.9 k/uL (1.0-4.8); Lymphocytes % (A) 18 %; MCH 26.7 pg (25.0-35.0); MCHC 31.7 g/dL (31.0-37.0); MCV 84.4 fL (80.0-100.0); Mean Platelet Volume 7.1; Monocytes # (A) 0.2 k/uL (0-1.0); Monocytes % (A) 5 %; Neutrophils # (A) 3.7 k/uL (1.3-7.7); Neutrophils % (A) 74 %; Platelet Count 280 k/uL (150-450); RDW 13.4 % (11.5-15.5); WBC 5.1 k/uL (3.8-10.6)
[2020-04-29 11:15] LABS: HGB 8.3 gm/dL (11.4-16.0)
[2020-04-29 11:26] LABS: African American GFR (CKD) >90 (>60 ml/min/1.73 sqM); Anion Gap 5 mmol/L; Blood Urea Nitrogen 35 mg/dL (7-17); Calcium 8.9 mg/dL (8.4-10.2); Carbon Dioxide 22 mmol/L (22-30); Chloride 116 mmol/L (98-107); Glucose 89 mg/dL (74-99); Non-African American GFR(CKD) 82 (>60 ml/min/1.73 sqM); Potassium 5.3 mmol/L (3.5-5.1); Sodium 143 mmol/L (137-145)
--- NOTE | 2020-04-29 13:15 | P.HPIM ---
History of Present Illness H&P Date: 04/29/20 Chief Complaint: Rectal bleeding History and Physical and Discharge Summary This is a 54-year-old female with past medical history of seizure disorder, anxiety, panic disorder, colon cancer with history of colectomy, chronic anemia, fibromyalgia, stress seizures and multiple other medical issues presenting to the ER with complaints of bright red rectal bleeding at home 3 accompanied by diffuse abdominal cramping. Denies nausea vomiting or diarrhea. Denies abdominal pain Followed recently with Dr. Modi for colonoscopy, floor obtaining report. Denies chest pain, palpitations or shortness of breath. Denies lightheadedness dizziness or focal deficits. Denies syncope. Abdomen/pelvis CT reported negative scan with no adverse change compared to prior exam. Hemoglobin 9.3 on admission , follow up 9.8, platelets 307, PT 9.5, INR 0.9, AP TT 21.2. BUN 34 creatinine 1.11, T bili LFTs within normal limits with the exception of mildly elevated alk phos 174. Stool for occult blood positive. vital signs stable, maintaining O2 sats in the 90s on room air. Staff reports patient had a small bowel movement last night with minimal bright red blood. Review of Systems ROS Statement: Those systems with pertinent positive or pertinent negative responses have been documented in the HPI. ROS Other: All systems not noted in ROS Statement are negative. 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 BLOOD TRANSFUSIONS FOR LOW HGB. History of Any Multi-Drug Resistant Organisms: MRSA Date of last positivie culture/infection: 08/10/19 MDRO Source:: URINE Past Surgical History: Appendectomy, Bowel Resection, Cholecystectomy, Ear Surgery, Hysterectomy, Orthopedic Surgery Additional Past Surgical History / Comment(s): frantz knee arthroscopy, hiatal hernia surgery, rt ear surgery to remove middle ear, lymph node biopsy right armpit Past Anesthesia/Blood Transfusion Reactions: Postoperative Nausea & Vomiting (PONV) Past Psychological History: Anxiety, Panic Disorder Smoking Status: Never smoker Past Alcohol Use History: Occasional Past Drug Use History: None Reported - Past Family History Mother Family Medical History: No Reported History Additional Family Medical History / Comment(s): . Medications and Allergies Home Medications Medication Instructions Recorded Confirmed Type lamoTRIgine [LaMICtal] 200 mg PO BID 09/26/18 04/28/20 History Topiramate 100 mg PO DAILY 12/19/18 04/28/20 History clonazePAM [KlonoPIN] 1.5 mg PO Q12H 04/20/19 04/28/20 History Topiramate 50 mg PO HS 12/19/19 04/28/20 History Sertraline [Zoloft] 100 mg PO DAILY 02/06/20 04/28/20 History Pantoprazole Sodium [Protonix] 40 mg PO DAILY #14 tablet. 04/29/20 Rx Allergies Allergy/AdvReac Type Severity Reaction Status Date / Time erythromycin base Allergy Rash/Hives Verified 04/28/20 23:08 gadobutrol [From Gadavist] Allergy Anaphylaxis Verified 04/28/20 23:08 Gadolinium-Containing Allergy Anaphylaxis Verified 04/28/20 23:08 Contrast Medi iodine Allergy Anaphylaxis Verified 04/28/20 23:08 ketorolac tromethamine Allergy Rash/Hives/ Verified 04/28/20 23:08 [From Toradol] hallucinati ons Penicillins Allergy Anaphylaxis Verified 04/28/20 23:08 azithromycin AdvReac red face Verified 04/28/20 23:08 lorazepam [From Ativan] AdvReac Hallucinati Verified 04/28/20 23:08 ons Physical Exam Vitals: Vital Signs Temp Pulse Pulse Resp BP BP Pulse Ox 04/29/20 07:03 97.8 F 70 16 117/58 96 04/29/20 01:26 97.9 F 66 18 137/74 98 04/28/20 22:13 98.2 F 90 18 144/63 94 L Intake and Output 04/28/20 04/29/20 04/29/20 22:59 06:59 14:59 Intake Total 1040 Balance 1040 Intake: Intake, IV Titration 1040 Amount Sodium Chloride 0.9% 1, 1040 000 ml @ 130 mls/hr IV . Q7H42M [facility] Rx#:[id number] Other: Voiding Method Toilet Toilet # Voids 1 Weight 78.018 kg 71 kg PHYSICAL EXAM: VITAL SIGNS: [As above] GENERAL: Sitting up in bed, no acute distress HEENT: Conjunctivae normal. eyes normal. NECK: No JVD. No thyroid enlargement. No LNs CARDIOVASCULAR: S1, S2 regular.. No murmur RESPIRATION: Breath sounds diminished in the bases. No rhonchi or crackles. No bronchial breathing. ABDOMEN: Soft, nontender . No guarding. no masses palpable. No ascites, No hepatosplenomegaly.Bowel sounds heard. LEGS: No edema. no swelling PSYCHIATRY: Alert and oriented X3, mood and affect normal. NERVOUS SYSTEM: Cranial N 2-12 grossly normal. Moves all 4 limbs. Diffuse weakness No focal deficits. Strength and sensation grossly intact.. Skin: Warm and dry, no rash Lymphatic system. No LN neck axilla. Results CBC & Chem 7: 04/29/20 11:02 04/29/20 11:02 Labs: Abnormal Lab Results - Last 24 Hours (Table) 04/28/20 04/28/20 04/28/20 Range/Units 22:44 22:44 22:44 RBC 3.68 L (3.80-5.40) m/uL Hgb 9.8 L (11.4-16.0) gm/dL Hct 30.5 L (34.0-46.0) % APTT 21.2 L (22.0-30.0) sec Chloride 110 H (98-107) mmol/L BUN 34 H (7-17) mg/dL Creatinine 1.11 H (0.52-1.04) mg/dL Glucose 104 H (74-99) mg/dL Alkaline Phosphatase 174 H (38-126) U/L Stool Occult Blood (Negative) 04/28/20 Range/Units 23:50 RBC (3.80-5.40) m/uL Hgb (11.4-16.0) gm/dL Hct (34.0-46.0) % APTT (22.0-30.0) sec Chloride (98-107) mmol/L BUN (7-17) mg/dL Creatinine (0.52-1.04) mg/dL Glucose (74-99) mg/dL Alkaline Phosphatase (38-126) U/L Stool Occult Blood Positive H (Negative) Thrombosis Risk Factor Assmnt - Choose All That Apply Any of the Below Risk Factors Present?: Yes Each Factor Represents 1 point: Age 41-60 years, Obesity (BMI >25) Other Risk Factors: No Other congenital or acquired thrombophilia - If yes, enter type in comment: No Thrombosis Risk Factor Assessment Total Risk Factor Score: 2 Thrombosis Risk Factor Assessment Level: Low Risk Assessment and Plan Assessment: Rectal bleeding History of sinus bradycardia, first-degree AV block, Loop Recorder Hypertension History of stress seizures History of colon cancer with colectomy Chronic anemia Fibromyalgia History of syncope Anxiety, panic disorder PONV Hyperlipidemia Plan: Continue on current medication regime monitoring and to make treatment. P PI in place for GI prophylaxis. IV fluid hydration. Telemetry monitoring ordered. Consult in place for Dr. Modi. Serial CBCs ordered. CBC from 11 dropped to 8.3 but patient receiving IV fluids at 130 hours, suspect dilutional. IV fluids KVO'd. Repeat CBC at 1600. If hemoglobin remains at or greater than 8.3, and patient will be discharged home today in a stable condition with guarded prognosis. Patient has been advised to follow-up with Dr. Mcpherson tomorrow and Dr. Modi this week as well. Discharge Medication List lamoTRIgine [LaMICtal] 200 mg PO BID 09/26/18 [History] Topiramate 100 mg PO DAILY 12/19/18 [History] clonazePAM [KlonoPIN] 1.5 mg PO Q12H 04/20/19 [History] Topiramate 50 mg PO HS 12/19/19 [History] Sertraline [Zoloft] 100 mg PO DAILY 02/06/20 [History] Pantoprazole Sodium [Protonix] 40 mg PO DAILY #14 tablet. 04/29/20 [Rx] The impression and plan of care has been dictated as directed. : I performed a history and examination of this patient, discussed the same with the dictator. I agree with the dictator's note ,documented as a scribe. Any additional findings or plans will be noted.
[2020-04-29 13:22] VITALS: BP 105/53; PULSE 64; RESP 20; TEMP 98.5
--- NOTE | 2020-04-29 15:11 | P.GSCN ---
History of Present Illness Consult date: 04/29/20 History of present illness: 54-year-old female presents to the emergency department with complaints of blood in her stool. She also is complaining of some abdominal pain. She is known to me as a patient who has a history of colon cancer and did undergo colectomy. She did have a colonoscopy within the last 6 months with no acute finding. She has also followed in the office in the last 6 months with complaints of occasional blood in the stool. She also has followed with gastroenterology for this same issue. Recommendation was made for a high-fiber diet as colonoscopy did not reveal any acute finding. Currently, patient states that she is having changes in her bowel function of loose stool along with occasional blood in her stool. She denies any nausea or vomiting. She also complains of some abdominal cramping. Hemoglobin is 9.8. 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 BLOOD TRANSFUSIONS FOR LOW HGB. History of Any Multi-Drug Resistant Organisms: MRSA Year Discovered:: 08/10/19 MDRO Source:: URINE Past Surgical History: Appendectomy, Bowel Resection, Cholecystectomy, Ear Surgery, Hysterectomy, Orthopedic Surgery Additional Past Surgical History / Comment(s): frantz knee arthroscopy, hiatal hernia surgery, rt ear surgery to remove middle ear, lymph node biopsy right armpit Past Anesthesia/Blood Transfusion Reactions: Postoperative Nausea & Vomiting (PONV) Past Psychological History: Anxiety, Panic Disorder Smoking Status: Never smoker Past Alcohol Use History: Occasional Past Drug Use History: None Reported - Past Family History Mother Family Medical History: No Reported History Additional Family Medical History / Comment(s): . Medications and Allergies Home Medications Medication Instructions Recorded Confirmed Type lamoTRIgine [LaMICtal] 200 mg PO BID 09/26/18 04/28/20 History Topiramate 100 mg PO DAILY 12/19/18 04/28/20 History clonazePAM [KlonoPIN] 1.5 mg PO Q12H 04/20/19 04/28/20 History Topiramate 50 mg PO HS 12/19/19 04/28/20 History Sertraline [Zoloft] 100 mg PO DAILY 02/06/20 04/28/20 History Pantoprazole Sodium [Protonix] 40 mg PO DAILY #14 tablet. 04/29/20 Rx Allergies Allergy/AdvReac Type Severity Reaction Status Date / Time erythromycin base Allergy Rash/Hives Verified 04/28/20 23:08 gadobutrol [From Gadavist] Allergy Anaphylaxis Verified 04/28/20 23:08 Gadolinium-Containing Allergy Anaphylaxis Verified 04/28/20 23:08 Contrast Medi iodine Allergy Anaphylaxis Verified 04/28/20 23:08 ketorolac tromethamine Allergy Rash/Hives/ Verified 04/28/20 23:08 [From Toradol] hallucinati ons Penicillins Allergy Anaphylaxis Verified 04/28/20 23:08 azithromycin AdvReac red face Verified 04/28/20 23:08 lorazepam [From Ativan] AdvReac Hallucinati Verified 04/28/20 23:08 ons Surgical - Exam Osteopathic Statement: *. No significant issues noted on an osteopathic structural exam other than those noted in the History and Physical/Consult. Vital Signs Temp Pulse Resp BP Pulse Ox 98.2 F 90 18 144/63 94 L 04/28/20 22:13 04/28/20 22:13 04/28/20 22:13 04/28/20 22:13 04/28/20 22:13 - General well nourished, no distress - Eyes PERRL - ENT no hearing loss - Neck trachea midline - Respiratory normal respiratory effort - Abdomen Soft nontender nondistended no rebound or guarding - Psychiatric oriented to time, oriented to person, oriented to place Results - Labs 04/29/20 11:02 04/29/20 11:02 Abnormal Lab Results - Last 24 Hours (Table) 04/28/20 04/28/20 04/28/20 Range/Units 22:44 22:44 22:44 RBC 3.68 L (3.80-5.40) m/uL Hgb 9.8 L (11.4-16.0) gm/dL Hct 30.5 L (34.0-46.0) % Lymphocytes # (1.0-4.8) k/uL APTT 21.2 L (22.0-30.0) sec Potassium (3.5-5.1) mmol/L Chloride 110 H (98-107) mmol/L BUN 34 H (7-17) mg/dL Creatinine 1.11 H (0.52-1.04) mg/dL Glucose 104 H (74-99) mg/dL Alkaline Phosphatase 174 H (38-126) U/L Stool Occult Blood (Negative) 04/28/20 04/29/20 04/29/20 Range/Units 23:50 11:02 11:02 RBC 3.10 L (3.80-5.40) m/uL Hgb 8.3 L D (11.4-16.0) gm/dL Hct 26.2 L (34.0-46.0) % Lymphocytes # 0.9 L (1.0-4.8) k/uL APTT (22.0-30.0) sec Potassium 5.3 H (3.5-5.1) mmol/L Chloride 116 H (98-107) mmol/L BUN 35 H (7-17) mg/dL Creatinine (0.52-1.04) mg/dL Glucose (74-99) mg/dL Alkaline Phosphatase (38-126) U/L Stool Occult Blood Positive H (Negative) Diabetes panel 04/28/20 04/29/20 Range/Units 22:44 11:02 Sodium 144 143 (137-145) mmol/L Potassium 4.0 5.3 H (3.5-5.1) mmol/L Chloride 110 H 116 H (98-107) mmol/L Carbon Dioxide 26 22 (22-30) mmol/L BUN 34 H 35 H (7-17) mg/dL Creatinine 1.11 H 0.82 (0.52-1.04) mg/dL Glucose 104 H 89 (74-99) mg/dL Calcium 9.4 8.9 (8.4-10.2) mg/dL AST 26 (14-36) U/L ALT 14 (4-34) U/L Alkaline Phosphatase 174 H (38-126) U/L Total Protein 7.1 (6.3-8.2) g/dL Albumin 4.1 (3.5-5.0) g/dL Calcium panel 04/28/20 04/29/20 Range/Units 22:44 11:02 Calcium 9.4 8.9 (8.4-10.2) mg/dL Albumin 4.1 (3.5-5.0) g/dL Pituitary panel 04/28/20 04/29/20 Range/Units 22:44 11:02 Sodium 144 143 (137-145) mmol/L Potassium 4.0 5.3 H (3.5-5.1) mmol/L Chloride 110 H 116 H (98-107) mmol/L Carbon Dioxide 26 22 (22-30) mmol/L BUN 34 H 35 H (7-17) mg/dL Creatinine 1.11 H 0.82 (0.52-1.04) mg/dL Glucose 104 H 89 (74-99) mg/dL Calcium 9.4 8.9 (8.4-10.2) mg/dL Adrenal panel 04/28/20 04/29/20 Range/Units 22:44 11:02 Sodium 144 143 (137-145) mmol/L Potassium 4.0 5.3 H (3.5-5.1) mmol/L Chloride 110 H 116 H (98-107) mmol/L Carbon Dioxide 26 22 (22-30) mmol/L BUN 34 H 35 H (7-17) mg/dL Creatinine 1.11 H 0.82 (0.52-1.04) mg/dL Glucose 104 H 89 (74-99) mg/dL Calcium 9.4 8.9 (8.4-10.2) mg/dL Total Bilirubin 0.3 (0.2-1.3) mg/dL AST 26 (14-36) U/L ALT 14 (4-34) U/L Alkaline Phosphatase 174 H (38-126) U/L Total Protein 7.1 (6.3-8.2) g/dL Albumin 4.1 (3.5-5.0) g/dL Assessment and Plan (1) GI bleeding Narrative/Plan: 54-year-old female with concern for blood in her stool. Colonoscopy was performed within the last 6 months. Patient states that she is being discharged. I would recommend further evaluation by gastroenterology as she may need repeat endoscopy as an outpatient. At this point, there is no plan for any surgical intervention as there does not appear to be an acute surgical reason for bleeding. She can follow-up with me as an outpatient as well. Current Visit: Yes Status: Acute Code(s): K92.2 - GASTROINTESTINAL HEMORRHAGE, UNSPECIFIED SNOMED Code(s): 85185126
[2020-04-29 16:48] LABS: Basophils % (A) 1 %; Eosinophils # (A) 0.1 k/uL (0-0.7); Eosinophils % (A) 3 %; HCT 26.6 % (34.0-46.0); HGB 8.1 gm/dL (11.4-16.0); Hypochromasia Marked; Lymphocytes # (A) 1.3 k/uL (1.0-4.8); Lymphocytes % (A) 23 %; MCH 25.9 pg (25.0-35.0); MCHC 30.5 g/dL (31.0-37.0); MCV 84.7 fL (80.0-100.0); Mean Platelet Volume 7.3; Monocytes # (A) 0.3 k/uL (0-1.0); Monocytes % (A) 5 %; Neutrophils # (A) 3.7 k/uL (1.3-7.7); Neutrophils % (A) 68 %; Platelet Count 267 k/uL (150-450); RBC 3.14 m/uL (3.80-5.40); RDW 13.4 % (11.5-15.5); WBC 5.4 k/uL (3.8-10.6)
== END 2020-04-29 17:48 | disposition home or self-care (01) ==
LOC: EC 22:10 → 5NMEDONC 04-29 00:17
PROVIDERS: ADMIT Family Medicine; ATTEND Family Medicine
DX: K92.1 Melena (principal); I44.0 Atrioventricular block, first degree; R00.1 Bradycardia, unspecified; I10 Essential (primary) hypertension; G40.409 Other generalized epilepsy and epileptic syndromes, not intractable, without status epilepticus; M79.7 Fibromyalgia; D64.9 Anemia, unspecified; G43.909 Migraine, unspecified, not intractable, without status migrainosus; F41.0 Panic disorder [episodic paroxysmal anxiety]; E78.5 Hyperlipidemia, unspecified; M79.89 Other specified soft tissue disorders; R74.8 Abnormal levels of other serum enzymes; E66.9 Obesity, unspecified; Z68.29 Body mass index [BMI] 29.0-29.9, adult; Z85.038 Personal history of other malignant neoplasm of large intestine; Z87.01 Personal history of pneumonia (recurrent); Z86.14 Personal history of Methicillin resistant Staphylococcus aureus infection; Z90.49 Acquired absence of other specified parts of digestive tract; Z98.84 Bariatric surgery status; Z79.899 Other long term (current) drug therapy; Z79.1 Long term (current) use of non-steroidal anti-inflammatories (NSAID); Z88.1 Allergy status to other antibiotic agents; Z91.041 Radiographic dye allergy status; Z88.5 Allergy status to narcotic agent; Z88.0 Allergy status to penicillin; Z88.8 Allergy status to other drugs, medicaments and biological substances; Z91.048 Other nonmedicinal substance allergy status; Z90.710 Acquired absence of both cervix and uterus
CPT/HCPCS: 96376; 96374; 99285; 36415; 86900; 86901; 80053; 80048; 83605; 84484; 85025 ×2; 85610; 85730; 86850; 82272; 74176; G0378; C9113

== ENCOUNTER 2020-05-17 19:11 | Observation (INO) | payer OTHER ==
[2020-05-17 19:22] LABS: Glucose,Whole Blood 120 mg/dL (75-99)
--- NOTE | 2020-05-17 19:23 | ED ---
General Adult HPI - General Chief complaint: Fall Stated complaint: Fall Time Seen by Provider: 05/17/20 19:21 Source: patient, EMS Mode of arrival: EMS Limitations: no limitations - History of Present Illness Initial comments: Patient presents to the ED by ambulance for evaluation status post falling down stairs. Patient states that she was at her son's house this evening when she fell down about 16 stairs. Patient states that she does not recall exactly how she fell, and she is unsure if she lost consciousness. Patient was placed in a c-collar by EMS. Patient is currently complaining of having left knee pain and right lateral foot pain. Patient also admits to having a diffuse headache. Patient denies drug or alcohol abuse. Patient denies fever or chills, focal numbness/weakness/neuro deficit, visual changes, neck/back plain, upper ext remity pain, hip pain, chest pain, dyspnea, cough or cold symptoms, palpitations, abdominal pain, nausea/vomiting/diarrhea, bloody or melanotic stool, dysuria or urinary symptoms, or any other symptoms or complaints. - Related Data Home Medications Medication Instructions Recorded Confirmed lamoTRIgine [LaMICtal] 200 mg PO BID 09/26/18 05/17/20 Topiramate 100 mg PO DAILY 12/19/18 05/17/20 clonazePAM [KlonoPIN] 1.5 mg PO Q12H 04/20/19 05/17/20 Topiramate 50 mg PO HS 12/19/19 05/17/20 Sertraline [Zoloft] 100 mg PO DAILY 02/06/20 05/17/20 Allergies Allergy/AdvReac Type Severity Reaction Status Date / Time erythromycin base Allergy Rash/Hives Verified 05/17/20 21:01 gadobutrol [From Gadavist] Allergy Anaphylaxis Verified 05/17/20 21:01 Gadolinium-Containing Allergy Anaphylaxis Verified 05/17/20 21:01 Contrast Medi iodine Allergy Anaphylaxis Verified 05/17/20 21:01 ketorolac tromethamine Allergy Rash/Hives/ Verified 05/17/20 21:01 [From Toradol] hallucinati ons Penicillins Allergy Anaphylaxis Verified 05/17/20 21:01 azithromycin AdvReac red face Verified 05/17/20 21:01 lorazepam [From Ativan] AdvReac Hallucinati Verified 05/17/20 21:01 ons Review of Systems ROS Statement: Those systems with pertinent positive or pertinent negative responses have been documented in the HPI. ROS Other: All systems not noted in ROS Statement are negative. 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 BLOOD TRANSFUSIONS FOR LOW HGB. History of Any Multi-Drug Resistant Organisms: MRSA Date of last positivie culture/infection: 08/10/19 MDRO Source:: URINE Past Surgical History: Appendectomy, Bowel Resection, Cholecystectomy, Ear Surgery, Hysterectomy, Orthopedic Surgery Additional Past Surgical History / Comment(s): frantz knee arthroscopy, hiatal her roberth surgery, rt ear surgery to remove middle ear, lymph node biopsy right armpit Past Anesthesia/Blood Transfusion Reactions: Postoperative Nausea & Vomiting (PONV) Past Psychological History: Anxiety, Panic Disorder Smoking Status: Never smoker Past Alcohol Use History: Occasional Past Drug Use History: None Reported - Past Family History Mother Family Medical History: No Reported History Additional Family Medical History / Comment(s): . General Exam Limitations: no limitations General appearance: alert, in no apparent distress Head exam: Present: atraumatic, normocephalic Eye exam: Present: normal appearance, PERRL, EOMI ENT exam: Present: mucous membranes moist, TM's normal bilaterally Neck exam: Present: other (Trachea is in midline; c-collar is in place; no step- off deformity is appreciated). Absent: tenderness Respiratory exam: Present: normal lung sounds bilaterally. Absent: respiratory distress, wheezes, rales, rhonchi, stridor, chest wall tenderness Cardiovascular Exam: Present: regular rate, normal rhythm, normal heart sounds, other (Normal radial and dorsalis pedis pulses bilaterally) GI/Abdominal exam: Present: soft. Absent: distended, tenderness, guarding Extremities exam: Present: other (Diffuse left knee tenderness without any swelling or deformity appreciated; right lateral foot tenderness without any swelling or deformity appreciated; pelvis is stable and nontender; patient has full range of motion at bilateral hips) Back exam: Present: normal inspection. Absent: tenderness Neurological exam: Present: alert, oriented X3, CN II-XII intact. Absent: motor sensory deficit Psychiatric exam: Present: normal affect, normal mood Skin exam: Present: warm, dry, intact, normal color Course Vital Signs 05/17/20 05/17/20 19:15 20:18 Temperature 97.8 F Pulse Rate 83 86 Respiratory 16 16 Rate Blood Pressure 145/66 150/96 O2 Sat by Pulse 98 98 Oximetry - Reevaluation(s) Reevaluation #1: 05/17/20 21:39 Case, H&P and test results were discussed with Dr. Mcpherson. He states that the patient has a history of faking her symptoms, but he accepts hospital admission at this time. 05/17/20 21:44 Patient and her parents are aware the patient's test results, and they all agree with hospital admission at this time. Patient states that she has no one to care for at home. Patient denies development of any new pain or symptoms while in the ED. Patient remains alert and breathing comfortably. EKG Findings - EKG Comments: EKG Findings:: Normal sinus rhythm, ventricular rate of 83 bpm, no ectopy, normal DC interval, normal QT interval, normal axis, right bundle branch block, left anterior fascicular block, LVH, no significant change when compared to 04/27/2020 EKG Medical Decision Making - Medical Decision Making Patient's imaging studies are negative for acute traumatic findings other than a left knee effusion and right fifth metatarsal fracture. ED nurse to apply a left knee immobilizer and right foot walking boot. Given the patient's suspected syncopal episode, will admit the patient to the hospital for observation/cardiac monitoring. Dr. Mcpherson has accepted hospital admission. - Lab Data Result diagrams: 05/17/20 19:30 05/17/20 19:30 Lab Results 05/17/20 05/17/20 05/17/20 Range/Units 19:20 19:30 19:30 WBC 8.0 (3.8-10.6) k/uL RBC 3.67 L (3.80-5.40) m/uL Hgb 8.9 L (11.4-16.0) gm/dL Hct 29.6 L (34.0-46.0) % MCV 80.5 (80.0-100.0) fL MCH 24.2 L (25.0-35.0) pg MCHC 30.1 L (31.0-37.0) g/dL RDW 13.7 (11.5-15.5) % Plt Count 188 (150-450) k/uL MPV 7.9 Neutrophils % 66 % Lymphocytes % 27 % Monocytes % 4 % Eosinophils % 1 % Basophils % 1 % Neutrophils # 5.3 (1.3-7.7) k/uL Lymphocytes # 2.2 (1.0-4.8) k/uL Monocytes # 0.3 (0-1.0) k/uL Eosinophils # 0.1 (0-0.7) k/uL Basophils # 0.1 (0-0.2) k/uL Hypochromasia Marked Poikilocytosis Slight PT 9.9 (9.0-12.0) sec INR 0.9 (<1.2) APTT 19.1 L (22.0-30.0) sec Sodium (137-145) mmol/L Potassium (3.5-5.1) mmol/L Chloride (98-107) mmol/L Carbon Dioxide (22-30) mmol/L Anion Gap mmol/L BUN (7-17) mg/dL Creatinine (0.52-1.04) mg/dL Est GFR (CKD-EPI)AfAm (>60 ml/min/1.73 sqM) Est GFR (CKD-EPI)NonAf (>60 ml/min/1.73 sqM) Glucose (74-99) mg/dL POC Glucose (mg/dL) 120 H (75-99) mg/dL POC Glu Gre Instructor ID KalyanPearlEvie Calcium (8.4-10.2) mg/dL Total Bilirubin (0.2-1.3) mg/dL AST (14-36) U/L ALT (4-34) U/L Alkaline Phosphatase (38-126) U/L Troponin I (0.000-0.034) ng/mL Total Protein (6.3-8.2) g/dL Albumin (3.5-5.0) g/dL 05/17/20 05/17/20 Range/Units 19:30 19:30 WBC (3.8-10.6) k/uL RBC (3.80-5.40) m/uL Hgb (11.4-16.0) gm/dL Hct (34.0-46.0) % MCV (80.0-100.0) fL MCH (25.0-35.0) pg MCHC (31.0-37.0) g/dL RDW (11.5-15.5) % Plt Count (150-450) k/uL MPV Neutrophils % % Lymphocytes % % Monocytes % % Eosinophils % % Basophils % % Neutrophils # (1.3-7.7) k/uL Lymphocytes # (1.0-4.8) k/uL Monocytes # (0-1.0) k/uL Eosinophils # (0-0.7) k/uL Basophils # (0-0.2) k/uL Hypochromasia Poikilocytosis PT (9.0-12.0) sec INR (<1.2) APTT (22.0-30.0) sec Sodium 139 (137-145) mmol/L Potassium 4.3 (3.5-5.1) mmol/L Chloride 109 H (98-107) mmol/L Carbon Dioxide 21 L (22-30) mmol/L Anion Gap 9 mmol/L BUN 26 H (7-17) mg/dL Creatinine 0.87 (0.52-1.04) mg/dL Est GFR (CKD-EPI)AfAm 88 (>60 ml/min/1.73 sqM) Est GFR (CKD-EPI)NonAf 76 (>60 ml/min/1.73 sqM) Glucose 110 H (74-99) mg/dL POC Glucose (mg/dL) (75-99) mg/dL POC Glu Gre Instructor ID Calcium 9.2 (8.4-10.2) mg/dL Total Bilirubin 0.5 (0.2-1.3) mg/dL AST 33 (14-36) U/L ALT 13 (4-34) U/L Alkaline Phosphatase 144 H (38-126) U/L Troponin I <0.012 (0.000-0.034) ng/mL Total Protein 7.4 (6.3-8.2) g/dL Albumin 4.1 (3.5-5.0) g/dL - Radiology Data Radiology results: report reviewed (Noncontrast CT head and cervical spine are negative; chest x-ray is negative; pelvis x-ray is negative; left knee x-rays: Knee joint effusion without acute osseous abnormality; right foot x-rays: Fifth metatarsal shaft fracture) Disposition Clinical Impression: Fall, Fracture of fifth metatarsal bone of right foot, Left knee pain Narrative: Suspected syncope Disposition: ADMITTED IP TO THIS HOSP Condition: Stable When asked, does pt state using other controlled substances?: No Referrals: Scott Medrano MD [Primary Care Provider] - 1-2 days Time of Disposition: 21:40
[2020-05-17] MEDS ORDERED: SODIUM CHLORIDE 0.9% 500 ML 500 ML IV STA (19:29)
[2020-05-17] MEDS ORDERED: MORPHINE SULFATE 4 MG/ML SYRINGE IVP STA (19:30)
[2020-05-17 20:04] LABS: Albumin 4.1 g/dL (3.5-5.0); Basophils # (A) 0.1 k/uL (0-0.2); Basophils % (A) 1 %; Calcium 9.2 mg/dL (8.4-10.2); Eosinophils # (A) 0.1 k/uL (0-0.7); Eosinophils % (A) 1 %; HCT 29.6 % (34.0-46.0); HGB 8.9 gm/dL (11.4-16.0); Hypochromasia Marked; Lymphocytes # (A) 2.2 k/uL (1.0-4.8); Lymphocytes % (A) 27 %; MCH 24.2 pg (25.0-35.0); MCHC 30.1 g/dL (31.0-37.0); MCV 80.5 fL (80.0-100.0); Mean Platelet Volume 7.9; Monocytes # (A) 0.3 k/uL (0-1.0); Monocytes % (A) 4 %; Neutrophils # (A) 5.3 k/uL (1.3-7.7); Neutrophils % (A) 66 %; Platelet Count 188 k/uL (150-450); Poikilocytosis Slight; RBC 3.67 m/uL (3.80-5.40); RDW 13.7 % (11.5-15.5); Total Bilirubin 0.5 mg/dL (0.2-1.3); Total Protein 7.4 g/dL (6.3-8.2)
[2020-05-17 20:10] LABS: Potassium 4.3 mmol/L (3.5-5.1)
--- NOTE | 2020-05-17 20:11 | CT ---
EXAMINATION TYPE: CT brain cspine wo con DATE OF EXAM: 05/17/2020 COMPARISON: 04/27/2020. HISTORY: fall CT DLP: 1451.3 mGycm Automated exposure control for dose reduction was used. TECHNIQUE: CT scan of the head and cervical spine are performed without contrast. FINDINGS: There is no acute intracranial hemorrhage, mass effect, or midline shift identified. The ventricles and sulci are within normal limits in size. The globes are intact and the visualized sin uses are clear. There is dysplastic appearance of the right mastoid air cells, may be congenital vers us remote infectious changes. Cervical spine is visualized in its entirety from C1 through upper thoracic levels and demonstrates s atisfactory alignment without evidence of acute fracture or dislocation. Prevertebral soft tissue ap pears within normal limits. The C1-C2 articulation is unremarkable. IMPRESSION: 1. There is no acute fracture or dislocation evident in the cervical spine. 2. No acute intracranial hemorrhage, mass effect, or midline shift is seen.
--- NOTE | 2020-05-17 20:15 | XR ---
EXAMINATION TYPE: XR chest 1V portable DATE OF EXAM: 05/17/2020 COMPARISON: 04/27/2020. HISTORY: Syncope and fall. Pain. TECHNIQUE: Single frontal view of the chest is obtained. FINDINGS: There is no focal air space opacity, pleural effusion, or pneumothorax seen. The cardiac silhouette size is within normal limits. The osseous structures are intact. Loop recorder is seen o verlies the left scapular region on the study (previously left lower lung). IMPRESSION: Otherwise no acute process. Loop recorder now seen overlying the left scapular region (previously left lower lung). Recommend cli nical correlation.
--- NOTE | 2020-05-17 20:16 | XR ---
RESULT: HISTORY: fall TECHNIQUE: AP view of pelvis. COMPARISON: None. FINDINGS: There is no acute fracture or dislocation. There are mild degenerative changes at the bilateral hips. The pubic symphysis and sacroiliac joints are patent. IMPRESSION: No acute osseous abnormality.
--- NOTE | 2020-05-17 20:17 | XR ---
Result: History: Pain. Comparison: None available. Technique: 3 views of the left knee. Findings: No acute fracture or dislocation is seen. The visualized osseous structures are in anatomic alignmen t. There is moderate to severe tricompartmental osteoarthritis most notable of the medial compartmen t. There is moderate knee joint effusion. Impression: Knee joint effusion without acute osseous abnormality. Osteoarthritis.
--- NOTE | 2020-05-17 20:19 | XR ---
Result: History: Pain. Comparison: None available. Technique: 3 views of the right foot. Findings: The bone mineralization is appropriate for age. There is displaced fracture of the fifth metatarsal shaft. No evidence of dislocation. There is scatt ered mild to moderate degenerative changes. Impression: Fifth metatarsal shaft fracture.
[2020-05-17 20:21] LABS: INR 0.9 (<1.2); Prothrombin Time 9.9 sec (9.0-12.0)
[2020-05-17 20:43] LABS: Partial Thromboplastin Time 19.1 sec (22.0-30.0)
[2020-05-17] MEDS ORDERED: MORPHINE SULFATE 4 MG/ML SYRINGE IV PRN (21:42)
[2020-05-17] MEDS ORDERED: NALOXONE 0.4 MG/ML 1 ML VIAL IV PRN (21:42)
[2020-05-17] MEDS ORDERED: HYDROmorphone 0.5 MG/0.5 ML SYRINGE IVP STA (21:42)
[2020-05-17] MEDS ORDERED: ONDANSETRON 4 MG/2 ML VIAL IVP STA (21:52)
[2020-05-18] MEDS: HYDROcodone/APAP 7.5-325MG 1 EACH TAB PO PRN ×2 (05:04→09:06)
[2020-05-18 06:08] LABS: Basophils % (A) 1 %; Eosinophils # (A) 0.1 k/uL (0-0.7); Eosinophils % (A) 2 %; HCT 25.8 % (34.0-46.0); HGB 7.9 gm/dL (11.4-16.0); Hypochromasia Marked; Lymphocytes # (A) 1.9 k/uL (1.0-4.8); Lymphocytes % (A) 25 %; MCH 24.8 pg (25.0-35.0); MCHC 30.7 g/dL (31.0-37.0); MCV 80.8 fL (80.0-100.0); Mean Platelet Volume 7.6; Monocytes # (A) 0.3 k/uL (0-1.0); Monocytes % (A) 5 %; Neutrophils # (A) 4.9 k/uL (1.3-7.7); Neutrophils % (A) 67 %; Platelet Count 274 k/uL (150-450); Poikilocytosis Slight; RBC 3.19 m/uL (3.80-5.40); RDW 13.7 % (11.5-15.5); WBC 7.3 k/uL (3.8-10.6)
[2020-05-18 06:20] LABS: Albumin 3.4 g/dL (3.5-5.0); Calcium 8.8 mg/dL (8.4-10.2); Potassium 3.6 mmol/L (3.5-5.1); Total Bilirubin 0.2 mg/dL (0.2-1.3); Total Protein 6.2 g/dL (6.3-8.2)
[2020-05-18] MEDS ORDERED: TOPIRAMATE 25 MG TAB PO SCH ×2 (09:00→21:00)
[2020-05-18] MEDS ORDERED: lamoTRIgine 100 MG TAB PO SCH ×2 (09:00)
[2020-05-18] MEDS ORDERED: SERTRALINE 50 MG TAB PO SCH (09:00)
--- NOTE | 2020-05-18 13:08 | P.HPIM ---
History of Present Illness H&P Date: 05/18/20 Chief Complaint: fall, fractured left fifth toe patient states that she fell down stairs at her son's house. Patient did not recall exactly how she fell, and she states no loss of consciousness. Patient admits to headache, denies drug or alcohol use or abuse. This patient denies fever chills focal numbness or weakness neuro deficit visual changes this patient enjoys hospitalization and has been known to exaggerate symptomatology to gain access to hospitalization and hospital services Review of Systems Constitutional: Reports as per HPI Ears, nose, mouth and throat: Reports as per HPI Cardiovascular: Reports as per HPI Respiratory: Reports as per HPI Gastrointestinal: Reports as per HPI Genitourinary: Reports as per HPI Menstruation: Reports as per HPI Musculoskeletal: Reports shooting leg pain (old history of arthritic process with effusion left knee) Integumentary: Reports as per HPI Neurological: Reports as per HPI Psychiatric: Reports anxiety, Reports depression Endocrine: Reports as per HPI Hematologic/Lymphatic: Reports as per HPI Past Medical History Past Medical History: Blood Disorder, Cancer, Fibromyalgia, Pneumonia, Seizure Disorder, Skin Disorder, Syncope Additional Past Medical History / Comment(s): migraines, "stress seizures"-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 BLOOD TRANSFUSIONS FOR LOW HGB. History of Any Multi-Drug Resistant Organisms: MRSA Date of last positivie culture/infection: 08/10/19 MDRO Source:: URINE Past Surgical History: Appendectomy, Bowel Resection, Cholecystectomy, Ear Surgery, Hysterectomy, Orthopedic Surgery Additional Past Surgical History / Comment(s): frantz knee arthroscopy, hiatal hernia surgery, rt ear surgery to remove middle ear, lymph node biopsy right armpit. loop recorder Past Anesthesia/Blood Transfusion Reactions: Postoperative Nausea & Vomiting (PONV) Past Psychological History: Anxiety, Panic Disorder Smoking Status: Never smoker Past Alcohol Use History: Occasional Past Drug Use History: None Reported - Past Family History Mother Family Medical History: No Reported History Additional Family Medical History / Comment(s): . Medications and Allergies Home Medications Medication Instructions Recorded Confirmed Type lamoTRIgine [LaMICtal] 200 mg PO BID 09/26/18 05/17/20 History Topiramate 100 mg PO DAILY 12/19/18 05/17/20 History clonazePAM [KlonoPIN] 1.5 mg PO Q12H 04/20/19 05/17/20 History Topiramate 50 mg PO HS 12/19/19 05/17/20 History Sertraline [Zoloft] 100 mg PO DAILY 02/06/20 05/17/20 History Allergies Allergy/AdvReac Type Severity Reaction Status Date / Time erythromycin base Allergy Rash/Hives Verified 05/17/20 21:01 gadobutrol [From Gadavist] Allergy Anaphylaxis Verified 05/17/20 21:01 Gadolinium-Containing Allergy Anaphylaxis Verified 05/17/20 21:01 Contrast Medi iodine Allergy Anaphylaxis Verified 05/17/20 21:01 ketorolac tromethamine Allergy Rash/Hives/ Verified 05/17/20 21:01 [From Toradol] hallucinati ons Penicillins Allergy Anaphylaxis Verified 05/17/20 21:01 azithromycin AdvReac red face Verified 05/17/20 21:01 lorazepam [From Ativan] AdvReac Hallucinati Verified 05/17/20 21:01 ons Physical Exam Osteopathic Statement: *. No significant issues noted on an osteopathic st ructural exam other than those noted in the History and Physical/Consult. Vitals: Vital Signs Temp Pulse Pulse Pulse Resp BP BP 05/18/20 05:03 98.0 F 69 17 05/18/20 00:00 64 16 05/17/20 23:59 97.4 F L 70 16 113/60 05/17/20 21:54 91 18 111/66 05/17/20 20:18 86 16 150/96 05/17/20 19:15 97.8 F 83 16 145/66 BP Pulse Ox 05/18/20 05:03 114/69 98 05/18/20 00:00 05/17/20 23:59 97 05/17/20 21:54 100 05/17/20 20:18 98 05/17/20 19:15 98 Intake and Output 05/17/20 05/18/20 05/18/20 22:59 06:59 14:59 Intake Total 480 Balance 480 Intake: Oral 480 Other: Weight 78.018 kg 78.018 kg General: [Patient awake, alert and oriented times 3. Patient in no acute distress. no blurred vision double vision HEENT: [PERRL. EOMI. No pharyngeal erythema or exudate.] Neck: [No adenopathy.] Cardiac: [Heart regular in rate and rhythm. No S3. No S4. No clicks, rubs. No murmur.] Lungs: [Clear to auscultation bilaterally.] Abdomen: [No mass. No organomegaly. Bowel sounds presnt and normoactive in all 4 quadrants.] Extremes: [No edema no cyanosis no claudication normal pulses] left leg in some sort of knee immobilizer that she came into the hospital with Right foot : normal female genitalia Musculoskeletal: [No joint erythema, edema or tenderness.] Skin: [No rash.] Neurologic: [No lateralizing deficits. CN II - XII grossly intact.] Lymphatic: [No adenopathy.] no evidence of ecchymosis or bruising and soft tissue anywhere accept the Results CBC & Chem 7: 05/18/20 05:39 05/18/20 05:39 Labs: Abnormal Lab Results - Last 24 Hours (Table) 05/17/20 05/17/20 05/17/20 Range/Units 19:20 19:30 19:30 RBC 3.67 L (3.80-5.40) m/uL Hgb 8.9 L (11.4-16.0) gm/dL Hct 29.6 L (34.0-46.0) % MCH 24.2 L (25.0-35.0) pg MCHC 30.1 L (31.0-37.0) g/dL APTT 19.1 L (22.0-30.0) sec Chloride (98-107) mmol/L Carbon Dioxide (22-30) mmol/L BUN (7-17) mg/dL Glucose (74-99) mg/dL POC Glucose (mg/dL) 120 H (75-99) mg/dL Alkaline Phosphatase (38-126) U/L Total Protein (6.3-8.2) g/dL Albumin (3.5-5.0) g/dL 05/17/20 05/18/20 05/18/20 Range/Units 19:30 05:39 05:39 RBC 3.19 L (3.80-5.40) m/uL Hgb 7.9 L (11.4-16.0) gm/dL Hct 25.8 L (34.0-46.0) % MCH 24.8 L (25.0-35.0) pg MCHC 30.7 L (31.0-37.0) g/dL APTT (22.0-30.0) sec Chloride 109 H (98-107) mmol/L Carbon Dioxide 21 L (22-30) mmol/L BUN 26 H 26 H (7-17) mg/dL Glucose 110 H 102 H (74-99) mg/dL POC Glucose (mg/dL) (75-99) mg/dL Alkaline Phosphatase 144 H 143 H (38-126) U/L Total Protein 6.2 L (6.3-8.2) g/dL Albumin 3.4 L (3.5-5.0) g/dL Assessment and Plan (1) Fall Current Visit: Yes Status: Acute Code(s): W19.XXXA - UNSPECIFIED FALL, INITIAL ENCOUNTER SNOMED Code(s): 5001069 (2) Fracture of fifth metatarsal bone of right foot Current Visit: Yes Status: Acute Code(s): S92.351A - DISP FX OF FIFTH METATARSAL BONE, RIGHT FOOT, INIT SNOMED Code(s): 338312568 (3) Left knee pain Current Visit: Yes Status: Acute Code(s): M25.562 - PAIN IN LEFT KNEE SNOMED Code(s): 14830836 (4) Chest pain Current Visit: No Status: Acute Code(s): R07.9 - CHEST PAIN, UNSPECIFIED SNOMED Code(s): 59106704 (5) GI bleeding Current Visit: No Status: Acute Code(s): K92.2 - GASTROINTESTINAL HEMORRHAGE, UNSPECIFIED SNOMED Code(s): 93251476 (6) Headache Current Visit: No Status: Acute Code(s): R51.9 - HEADACHE, UNSPECIFIED SNOMED Code(s): 91691818 Plan: referral to orthopedic foot surgeon for evaluation and treatment as an outpatien t right fifth to Referral to orthopedic surgeon for evaluation and treatment for left knee discussed at length with patient the need for mobilizing the knee Recommended physical therapy patient refused Recommending discharged home and referring patient outpatient physical therapy discussed at length there was no need for IV morphine or subcu morphine or Dilaudid to manage this patient's pain Mrs. Blackmon was somewhat combative when it was suggested that she might go home today in order to reduce her risk for exposure to other communicable diseases Time with Patient: Greater than 30
--- NOTE | 2020-05-18 13:12 | P.DS ---
Providers Date of admission: 05/17/20 21:42 Expected date of discharge: 05/18/20 Attending physician: Ortega Mcpherson Consults: discharge patient home for outpatient follow-up Primary care physician: Scott Medrano - Discharge Diagnosis(es) (1) Fall Current Visit: Yes Status: Acute (2) Fracture of fifth metatarsal bone of right foot Current Visit: Yes Status: Acute (3) Left knee pain Current Visit: Yes Status: Acute (4) Chest pain Current Visit: No Status: Acute (5) GI bleeding Current Visit: No Status: Acute (6) Headache Current Visit: No Status: Acute Hospital Course: discharge home will see patient in the office anytime next week Dr. Medrano will be in the office on Tuesday Patient Condition at Discharge: Stable Plan - Discharge Summary New Discharge Prescriptions: No Action lamoTRIgine [LaMICtal] 200 mg PO BID Topiramate 100 mg PO DAILY clonazePAM [KlonoPIN] 1.5 mg PO Q12H Topiramate 50 mg PO HS Sertraline [Zoloft] 100 mg PO DAILY Discharge Medication List lamoTRIgine [LaMICtal] 200 mg PO BID 09/26/18 [History] Topiramate 100 mg PO DAILY 12/19/18 [History] clonazePAM [KlonoPIN] 1.5 mg PO Q12H 04/20/19 [History] Topiramate 50 mg PO HS 12/19/19 [History] Sertraline [Zoloft] 100 mg PO DAILY 02/06/20 [History] Follow up Appointment(s)/Referral(s): Scott Medrano MD [Primary Care Provider] - 1-2 days Discharge Disposition: HOME SELF-CARE
[2020-05-18 13:15] VITALS: BP 124/66; PULSE 71; RESP 18; TEMP 97.8
== END 2020-05-18 14:10 | disposition home or self-care (01) ==
LOC: EC 19:11 → 5NMEDONC 21:42
PROVIDERS: ADMIT Family Medicine; ATTEND Family Medicine
DX: S92.351A Displaced fracture of fifth metatarsal bone, right foot, initial encounter for closed fracture (principal); M25.462 Effusion, left knee; R07.9 Chest pain, unspecified; K92.2 Gastrointestinal hemorrhage, unspecified; R51.9 Headache, unspecified; D64.9 Anemia, unspecified; M79.7 Fibromyalgia; G40.409 Other generalized epilepsy and epileptic syndromes, not intractable, without status epilepticus; L40.9 Psoriasis, unspecified; G43.909 Migraine, unspecified, not intractable, without status migrainosus; G47.00 Insomnia, unspecified; I38 Endocarditis, valve unspecified; L74.8 Other eccrine sweat disorders; F41.9 Anxiety disorder, unspecified; F41.0 Panic disorder [episodic paroxysmal anxiety]; I45.2 Bifascicular block; I51.7 Cardiomegaly; Z20.822 Contact with and (suspected) exposure to COVID-19; Z79.899 Other long term (current) drug therapy; Z88.1 Allergy status to other antibiotic agents; Z88.8 Allergy status to other drugs, medicaments and biological substances; Z91.041 Radiographic dye allergy status; Z91.048 Other nonmedicinal substance allergy status; Z88.6 Allergy status to analgesic agent; Z88.0 Allergy status to penicillin; Z85.038 Personal history of other malignant neoplasm of large intestine; Z87.01 Personal history of pneumonia (recurrent); Z87.19 Personal history of other diseases of the digestive system; Z86.14 Personal history of Methicillin resistant Staphylococcus aureus infection; Z90.49 Acquired absence of other specified parts of digestive tract; Z98.890 Other specified postprocedural states; Z90.710 Acquired absence of both cervix and uterus; Z91.89 Other specified personal risk factors, not elsewhere classified; W10.9XXA Fall (on) (from) unspecified stairs and steps, initial encounter; Y92.019 Unspecified place in single-family (private) house as the place of occurrence of the external cause
CPT/HCPCS: 96376; 96361 ×3; 96374; 96375; 99285; 36415; 93005; 80053 ×2; 84484; 85025 ×2; 85610; 85730; 87635; 72170; 73562; 73630; 71045; 72125; 70450; G0378 ×2; J2270 ×2; J2405; J1170

== ENCOUNTER → 2020-06-05 | Outpatient (CLI) | payer OTHER ==
[2020-06-05 21:24] LABS: Reticulocyte % 0.96 % (0.10-1.80)
[2020-06-05 21:56] LABS: Basophils # (A) 0.03 X 10*3/uL (0.00-0.10); Basophils % (A) 0.5 %; Eosinophils # (A) 0.11 X 10*3/uL (0.04-0.35); Eosinophils % (A) 1.7 %; HCT 26.3 % (37.2-46.3); HGB 7.5 g/dL (12.0-15.0); Lymphocytes % (A) 20.3 %; MCH 23.1 pg (27.0-32.0); MCHC 28.5 g/dL (32.0-37.0); MCV 80.9 fL (80.0-97.0); Mean Platelet Volume 10.8 fL (9.5-12.2); Monocytes # (A) 0.34 X 10*3/uL (0.20-1.00); Monocytes % (A) 5.3 %; Neutrophils # (A) 4.61 X 10*3/uL (1.80-7.70); Platelet Count 385 X 10*3/uL (140-440); RBC 3.25 X 10*6/uL (4.10-5.20); RDW 14.6 % (11.5-14.5)
[2020-06-06 09:10] LABS: % Iron Saturation 2.99 (12.00-45.00)
[2020-06-06 09:13] LABS: Ferritin 3.2 ng/mL (10.0-291.0)
[2020-06-06 09:29] LABS: Folate, Serum 8.4 ng/mL
== END | disposition home or self-care (01) ==
LOC: LABWHC1 09:54
PROVIDERS: ATTEND Internal Medicine
DX: D50.9 Iron deficiency anemia, unspecified (principal)
CPT/HCPCS: 36415; 82607; 82728; 82746; 83540; 83550; 85025; 85045

== ENCOUNTER → 2020-06-10 | Day surgery (SDC) | payer OTHER ==
[2020-06-06 11:48] VITALS: BMI 31.7
[~2020-06-10] MED LIST changes: -LACTATED RINGERS 1,000 ML IV SCH; +SIMETHICONE 40 MG/0.6 ML DROPS 2,000 MG/30 ML BOTTLE PO ONE; -SODIUM CHLORIDE 0.9% 1,000 ML IV SCH; -diphenhydrAMINE 50 MG/ML 1 ML VIAL IVP ONE
[2020-06-10 06:55] VITALS: BP 127/72; PULSE 79; TEMP 98
== END ==
LOC: ORWHC2ENDO 06:36
PROVIDERS: ATTEND Internal Medicine
DX: D50.9 Iron deficiency anemia, unspecified (principal)
CPT/HCPCS: 91110

== ENCOUNTER 2020-06-11 22:58 | Emergency (ER) | payer OTHER ==
[2020-06-11 23:13] VITALS: TEMP 98.6
[2020-06-11] MEDS ORDERED: SODIUM CHLORIDE 0.9% 1,000 ML IV STA (23:17)
[2020-06-11] MEDS ORDERED: MORPHINE SULFATE 4 MG/ML SYRINGE IV STA (23:17)
--- NOTE | 2020-06-11 23:17 | ED ---
Abdominal Pain HPI - General Chief Complaint: Abdominal Pain Stated Complaint: ABD Pain Time Seen by Provider: 06/11/20 23:17 Source: patient, EMS, RN notes reviewed, old records reviewed Mode of arrival: EMS Limitations: no limitations - History of Present Illness Initial Comments: This is a 54-year-old female to the ER for evaluation patient presents today for evaluation regards to severe abdominal pain. Has known history of abdominal pain history of colon cancer with surgery. Currently following up with GI. Patient has had similar history of same pain. Patient states the pain was worse today and she is unable to get out of bed MD Complaint: abdominal pain -: days(s) Location: diffuse Radiation: none Migration to: epigastric, suprapubic Severity: moderate Severity scale (1-10): 4 Quality: aching Consistency: constant Improves With: nothing Worsens With: nothing Context: recent surgery/procedure (Patient does have prior history of abdominal surgery) Associated Symptoms: nausea Treatments Prior to Arrival: other (none) - Related Data Home Medications Medication Instructions Recorded Confirmed lamoTRIgine [LaMICtal] 200 mg PO BID 09/26/18 06/17/20 Topiramate 100 mg PO QAM 12/19/18 06/17/20 clonazePAM [KlonoPIN] 1.5 mg PO Q12H 04/20/19 06/17/20 Topiramate 50 mg PO HS 12/19/19 06/17/20 Sertraline [Zoloft] 100 mg PO QAM 02/06/20 06/17/20 Allergies Allergy/AdvReac Type Severity Reaction Status Date / Time erythromycin base Allergy Rash/Hives Verified 06/17/20 23:22 gadobutrol [From Gadavist] Allergy Anaphylaxis Verified 06/17/20 23:22 Gadolinium-Containing Allergy Anaphylaxis Verified 06/17/20 23:22 Contrast Medi iodine Allergy Anaphylaxis Verified 06/17/20 23:22 ketorolac tromethamine Allergy Rash/Hives/ Verified 06/17/20 23:22 [From Toradol] hallucinati ons Penicillins Allergy Anaphylaxis Verified 06/17/20 23:22 azithromycin AdvReac red face Verified 06/17/20 23:22 lorazepam [From Ativan] AdvReac Hallucinati Verified 06/17/20 23:22 ons Review of Systems ROS Statement: Those systems with pertinent positive or pertinent negative responses have been documented in the HPI. ROS Other: All systems not noted in ROS Statement are negative. 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 BLOOD TRANSFUSIONS FOR LOW HGB. History of Any Multi-Drug Resistant Organisms: MRSA Date of last positivie culture/infection: 08/10/19 MDRO Source:: URINE Past Surgical History: Appendectomy, Bowel Resection, Cholecystectomy, Ear Surgery, Hysterectomy, Orthopedic Surgery Additional Past Surgical History / Comment(s): frantz knee arthroscopy, hiatal hernia surgery, rt ear surgery to remove middle ear, lymph node biopsy right armpit. loop recorder Past Anesthesia/Blood Transfusion Reactions: Postoperative Nausea & Vomiting (PONV) Past Psychological History: Anxiety, Panic Disorder Smoking Status: Never smoker - Past Family History Mother Family Medical History: No Reported History Additional Family Medical History / Comment(s): . General Exam Limitations: no limitations General appearance: alert, in no apparent distress, anxious, lethargic, in distress Head exam: Present: atraumatic, normocephalic, normal inspection Eye exam: Present: normal appearance, PERRL, EOMI. Absent: scleral icterus, conjunctival injection, periorbital swelling ENT exam: Present: normal exam, mucous membranes moist Neck exam: Present: normal inspection. Absent: tenderness, meningismus, lymphadenopathy Respiratory exam: Present: normal lung sounds bilaterally. Absent: respiratory distress, wheezes, rales, rhonchi, stridor Cardiovascular Exam: Present: regular rate, normal rhythm, normal heart sounds. Absent: systolic murmur, diastolic murmur, rubs, gallop, clicks GI/Abdominal exam: Present: soft, normal bowel sounds. Absent: distended, tenderness, guarding, rebound, rigid Extremities exam: Present: normal inspection, full ROM, normal capillary refill. Absent: tenderness, pedal edema, joint swelling, calf tenderness Back exam: Present: normal inspection Neurological exam: Present: alert, oriented X3, CN II-XII intact Psychiatric exam: Present: normal affect, normal mood Skin exam: Present: warm, dry, intact, normal color. Absent: rash Course Vital Signs 06/11/20 06/11/20 06/12/20 23:08 23:15 00:52 Temperature 98.6 F Pulse Rate 87 79 Respiratory 18 18 Rate Blood Pressure 137/74 131/68 O2 Sat by Pulse 99 97 Oximetry 06/12/20 02:19 Temperature Pulse Rate 66 Respiratory 16 Rate Blood Pressure 105/61 O2 Sat by Pulse 98 Oximetry - Reevaluation(s) Reevaluation #1: Medical record is reviewed Patient does have some syncopal episodes here in the ER that she states are due to pain Patient no distress here in the ER is improved Spoke with patient regarding findings, questions are answered Patient again has improved pain control here in the ER Medical Decision Making - Medical Decision Making 54 female to the ER for evaluation severe abdominal pain with recent evaluation possible patient does have pain severe that she has passed out. Can be discharged with current pain control - Lab Data Result diagrams: 06/11/20 23:41 06/11/20 23:41 Lab Results 06/11/20 06/11/20 06/11/20 Range/Units 23:41 23:41 23:41 WBC 7.6 (3.8-10.6) k/uL RBC 3.43 L (3.80-5.40) m/uL Hgb 8.1 L (11.4-16.0) gm/dL Hct 25.5 L (34.0-46.0) % MCV 74.5 L D (80.0-100.0) fL MCH 23.7 L (25.0-35.0) pg MCHC 31.8 (31.0-37.0) g/dL RDW 14.4 (11.5-15.5) % Plt Count 362 (150-450) k/uL MPV 7.3 Neutrophils % 64 % Lymphocytes % 28 % Monocytes % 5 % Eosinophils % 2 % Basophils % 1 % Neutrophils # 4.8 (1.3-7.7) k/uL Lymphocytes # 2.1 (1.0-4.8) k/uL Monocytes # 0.4 (0-1.0) k/uL Eosinophils # 0.2 (0-0.7) k/uL Basophils # 0.0 (0-0.2) k/uL Hypochromasia Marked Poikilocytosis Slight Microcytosis Slight Sodium 142 (137-145) mmol/L Potassium 3.9 (3.5-5.1) mmol/L Chloride 108 H (98-107) mmol/L Carbon Dioxide 24 (22-30) mmol/L Anion Gap 10 mmol/L BUN 29 H (7-17) mg/dL Creatinine 0.87 (0.52-1.04) mg/dL Est GFR (CKD-EPI)AfAm 88 (>60 ml/min/1.73 sqM) Est GFR (CKD-EPI)NonAf 76 (>60 ml/min/1.73 sqM) Glucose 127 H (74-99) mg/dL Plasma Lactic Acid Williams 1.8 (0.7-2.0) mmol/L Calcium 9.2 (8.4-10.2) mg/dL Total Bilirubin 0.2 (0.2-1.3) mg/dL AST 21 (14-36) U/L ALT 12 (4-34) U/L Alkaline Phosphatase 151 H (38-126) U/L Total Protein 6.7 (6.3-8.2) g/dL Albumin 3.9 (3.5-5.0) g/dL Amylase 64 (30-110) U/L Lipase 98 (23-300) U/L Urine Color Urine Appearance (Clear) Urine pH (5.0-8.0) Ur Specific [place] (1.001-1.035) Urine Protein (Negative) Urine Glucose (UA) (Negative) Urine Ketones (Negative) Urine Blood (Negative) Urine Nitrite (Negative) Urine Bilirubin (Negative) Urine Urobilinogen (<2.0) mg/dL Ur Leukocyte Esterase (Negative) Urine RBC (0-5) /hpf Urine WBC (0-5) /hpf Ur Squamous Epith Cells (0-4) /hpf Amorphous Sediment (None) /hpf Urine Mucus (None) /hpf 06/11/20 Range/Units 23:57 WBC (3.8-10.6) k/uL RBC (3.80-5.40) m/uL Hgb (11.4-16.0) gm/dL Hct (34.0-46.0) % MCV (80.0-100.0) fL MCH (25.0-35.0) pg MCHC (31.0-37.0) g/dL RDW (11.5-15.5) % Plt Count (150-450) k/uL MPV Neutrophils % % Lymphocytes % % Monocytes % % Eosinophils % % Basophils % % Neutrophils # (1.3-7.7) k/uL Lymphocytes # (1.0-4.8) k/uL Monocytes # (0-1.0) k/uL Eosinophils # (0-0.7) k/uL Basophils # (0-0.2) k/uL Hypochromasia Poikilocytosis Microcytosis Sodium (137-145) mmol/L Potassium (3.5-5.1) mmol/L Chloride (98-107) mmol/L Carbon Dioxide (22-30) mmol/L Anion Gap mmol/L BUN (7-17) mg/dL Creatinine (0.52-1.04) mg/dL Est GFR (CKD-EPI)AfAm (>60 ml/min/1.73 sqM) Est GFR (CKD-EPI)NonAf (>60 ml/min/1.73 sqM) Glucose (74-99) mg/dL Plasma Lactic Acid Williams (0.7-2.0) mmol/L Calcium (8.4-10.2) mg/dL Total Bilirubin (0.2-1.3) mg/dL AST (14-36) U/L ALT (4-34) U/L Alkaline Phosphatase (38-126) U/L Total Protein (6.3-8.2) g/dL Albumin (3.5-5.0) g/dL Amylase (30-110) U/L Lipase (23-300) U/L Urine Color Yellow Urine Appearance Clear (Clear) Urine pH 6.5 (5.0-8.0) Ur Specific [place] 1.025 (1.001-1.035) Urine Protein Trace H (Negative) Urine Glucose (UA) Negative (Negative) Urine Ketones Negative (Negative) Urine Blood Negative (Negative) Urine Nitrite Negative (Negative) Urine Bilirubin Negative (Negative) Urine Urobilinogen <2.0 (<2.0) mg/dL Ur Leukocyte Esterase Large H (Negative) Urine RBC 3 (0-5) /hpf Urine WBC 58 H (0-5) /hpf Ur Squamous Epith Cells 1 (0-4) /hpf Amorphous Sediment Rare H (None) /hpf Urine Mucus Moderate H (None) /hpf - Radiology Data Radiology results: report reviewed (CT abdomen and pelvis negative for acute disease), image reviewed Disposition Clinical Impression: Abdominal pain Disposition: HOME SELF-CARE Condition: Good Instructions (If sedation given, give patient instructions): Abdominal Pain (ED) Is patient prescribed a controlled substance at d/c from ED?: No Referrals: Scott Medrano MD [Primary Care Provider] - 1-2 days
[2020-06-11] MEDS ORDERED: FAMOTIDINE 20 MG/2 ML VIAL IV STA (23:36)
[2020-06-11] MEDS ORDERED: diphenhydrAMINE 50 MG/ML 1 ML VIAL IVP STA (23:36)
[2020-06-11] MEDS ORDERED: methylPREDNISolone SOD SUCCI 125 MG/2 ML VIAL IV STA (23:36)
[2020-06-11 23:51] LABS: Basophils % (A) 1 %; Eosinophils # (A) 0.2 k/uL (0-0.7); Eosinophils % (A) 2 %; HCT 25.5 % (34.0-46.0); HGB 8.1 gm/dL (11.4-16.0); Hypochromasia Marked; Lymphocytes # (A) 2.1 k/uL (1.0-4.8); Lymphocytes % (A) 28 %; MCH 23.7 pg (25.0-35.0); MCHC 31.8 g/dL (31.0-37.0); Mean Platelet Volume 7.3; Microcytosis Slight; Monocytes # (A) 0.4 k/uL (0-1.0); Monocytes % (A) 5 %; Neutrophils # (A) 4.8 k/uL (1.3-7.7); Neutrophils % (A) 64 %; Platelet Count 362 k/uL (150-450); Poikilocytosis Slight; RBC 3.43 m/uL (3.80-5.40); RDW 14.4 % (11.5-15.5); WBC 7.6 k/uL (3.8-10.6)
[2020-06-12 00:01] LABS: Albumin 3.9 g/dL (3.5-5.0); Calcium 9.2 mg/dL (8.4-10.2); Potassium 3.9 mmol/L (3.5-5.1); Total Bilirubin 0.2 mg/dL (0.2-1.3); Total Protein 6.7 g/dL (6.3-8.2)
[2020-06-12 00:05] LABS: MCV 74.5 fL (80.0-100.0)
[2020-06-12 00:22] LABS: Amorphous Sediment,Urine Rare /hpf; Appearance,Urine Clear (Clear); Bilirubin,Urine Negative (Negative); Blood,Urine Negative (Negative); Color,Urine Yellow; Glucose,Urine (UA) Negative (Negative); Ketones,Urine Negative (Negative); Leukocyte Esterase,Urine Large (Negative); Mucus,Urine Moderate /hpf; Nitrite,Urine Negative (Negative); PH, Urine 6.5 (5.0-8.0); Protein,Urine Trace (Negative); RBC,Urine 3 /hpf (0-5); Specific Gravity,Urine 1.025 (1.001-1.035); Squamous Epithelial Cell,Urine 1 /hpf (0-4); Urobilinogen,Urine <2.0 mg/dL (<2.0); WBC,Urine 58 /hpf (0-5)
--- NOTE | 2020-06-12 01:02 | CT ---
EXAM: CT Abdomen and Pelvis With Intravenous Contrast CLINICAL HISTORY: ITS. REASON CT Reason: abdominal pain TECHNIQUE: Axial computed tomography images of the abdomen and pelvis with intravenous contrast. CTDI is 22.17 mGy and DLP is 1305.1 mGy-cm. This CT exam was performed using one or more of the following dose reduction techniques: automated exposure control, adjustment of the mA and/or kV according to patient size, and/or use of iterative reconstruction technique. COMPARISON: 04/28/20. FINDINGS: The lung bases demonstrate no acute infiltrate. Cardiomegaly. Status post cholecystectomy. No biliary ductal dilation. Pancreatic atrophy. No acute pancreatitis. Renal cortical atrophy. No hydronephrosis. The spleen and the adrenal glands are within normal limits. There is no bowel obstruction or perforation. Ascending colonic resection with intact anastomosis. Status post hysterectomy. Aortoiliac atherosclerosis. No aneurysm. Operative changes of the abdominal wall. No acute fracture. IMPRESSION: No acute abdominopelvic process to explain symptoms. Cholecystectomy, hysterectomy, and ascending colonic resection.
[2020-06-12] MEDS ORDERED: ONDANSETRON 4 MG ODT STARTER PACK 2 TAB BTL PO STA (01:58)
[2020-06-12] MEDS ORDERED: ACET/COD 300 MG/30 MG STARTER PACK 6 TAB BTL PO STA (01:58)
[2020-06-12 02:25] VITALS: BP 105/61; PULSE 66; RESP 16
== END 2020-06-12 02:19 | disposition home or self-care (01) ==
LOC: EC 22:58
DX: R10.9 Unspecified abdominal pain (principal); F41.9 Anxiety disorder, unspecified; Z88.0 Allergy status to penicillin; Z85.038 Personal history of other malignant neoplasm of large intestine
CPT/HCPCS: 36415; 80053; 82150; 83605; 83690; 85025; 81001; 87086; 74177; 99284; 96374; 96375; 96361; J1200; J2930; S0119; Q9967

== ENCOUNTER 2020-06-17 01:51 | Emergency (ER) | payer OTHER ==
[2020-06-17] MEDS ORDERED: MORPHINE SULFATE 2 MG/ML SYRINGE IVP STA (02:13)
[2020-06-17 03:04] LABS: Basophils % (A) 1 %; Eosinophils # (A) 0.2 k/uL (0-0.7); Eosinophils % (A) 2 %; HCT 26.1 % (34.0-46.0); Hypochromasia Marked; Lymphocytes # (A) 1.8 k/uL (1.0-4.8); Lymphocytes % (A) 24 %; MCH 22.8 pg (25.0-35.0); MCHC 30.7 g/dL (31.0-37.0); MCV 74.2 fL (80.0-100.0); Mean Platelet Volume 7.7; Microcytosis Slight; Monocytes # (A) 0.3 k/uL (0-1.0); Monocytes % (A) 4 %; Neutrophils # (A) 5.2 k/uL (1.3-7.7); Neutrophils % (A) 69 %; Platelet Count 327 k/uL (150-450); Poikilocytosis Slight; RBC 3.52 m/uL (3.80-5.40); RDW 14.6 % (11.5-15.5); WBC 7.6 k/uL (3.8-10.6)
[2020-06-17 03:05] LABS: Calcium 9.4 mg/dL (8.4-10.2); Total Bilirubin 0.2 mg/dL (0.2-1.3); Total Protein 6.8 g/dL (6.3-8.2)
[2020-06-17] MEDS ORDERED: DICYCLOMINE 10 MG/ML 2 ML AMP IM STA (03:08)
[2020-06-17 03:24] LABS: Amorphous Sediment,Urine Occasional /hpf; Appearance,Urine Turbid (Clear); Bacteria,Urine Rare /hpf; Bilirubin,Urine Negative (Negative); Blood,Urine Negative (Negative); Color,Urine Yellow; Glucose,Urine (UA) Negative (Negative); Ketones,Urine Negative (Negative); Leukocyte Esterase,Urine Large (Negative); Mucus,Urine Rare /hpf; Nitrite,Urine Negative (Negative); Protein,Urine Trace (Negative); RBC,Urine 2 /hpf (0-5); Specific Gravity,Urine 1.022 (1.001-1.035); Squamous Epithelial Cell,Urine 1 /hpf (0-4); Urobilinogen,Urine <2.0 mg/dL (<2.0); WBC,Urine 93 /hpf (0-5)
[2020-06-17] MEDS ORDERED: LEVOFLOXACIN 500 MG TAB PO STA (03:40)
[2020-06-17] MEDS ORDERED: HYDROmorphone 0.5 MG/0.5 ML SYRINGE IVP STA (04:25)
--- NOTE | 2020-06-17 04:25 | ED ---
Abdominal Pain HPI - General Chief Complaint: Abdominal Pain Stated Complaint: Abdominal pain Time Seen by Provider: 06/17/20 01:58 Source: patient, family Mode of arrival: wheelchair Limitations: no limitations - History of Present Illness Initial Comments: This patient's 54-year-old woman who presents to have reevaluation of diffuse abdominal pain that she states has been going on for many months. She has been following with gastroenterology, and relates that she did recently have the capsule endoscopy, and that Dr. Haney was setting up a follow-up appointment to discuss the results of this. She states there has not been a change in the symptoms they were little bit worse than they usually are tonight and she is currently out of pain medication at home. No fever or chills. She is not passing blood per rectum though she hasn't passed sometimes had bright red blood with bowel movements. She denies signs and symptoms of anemia, including no chest pain, dyspnea, palpitations, orthostatic type symptoms. No vomiting today. MD Complaint: abdominal pain -: month(s) Location: diffuse Radiation: none Migration to: no migration Severity: severe Quality: cramping Consistency: constant Improves With: nothing Worsens With: nothing Associated Symptoms: nausea - Related Data Home Medications Medication Instructions Recorded Confirmed lamoTRIgine [LaMICtal] 200 mg PO BID 09/26/18 06/06/20 Topiramate 100 mg PO QAM 12/19/18 06/10/20 clonazePAM [KlonoPIN] 1.5 mg PO Q12H 04/20/19 06/06/20 Topiramate 50 mg PO HS 12/19/19 06/10/20 Sertraline [Zoloft] 100 mg PO QAM 02/06/20 06/06/20 Melatonin 20 mg PO HS 06/06/20 06/10/20 Previous Rx's Medication Instructions Recorded Ciprofloxacin HCl [Cipro] 500 mg PO Q12HR 1 Days #10 tab 06/17/20 Allergies Allergy/AdvReac Type Severity Reaction Status Date / Time erythromycin base Allergy Rash/Hives Verified 06/10/20 06:49 gadobutrol [From Gadavist] Allergy Anaphylaxis Verified 06/10/20 06:49 Gadolinium-Containing Allergy Anaphylaxis Verified 06/10/20 06:49 Contrast Medi iodine Allergy Anaphylaxis Verified 06/10/20 06:49 ketorolac tromethamine Allergy Rash/Hives/ Verified 06/10/20 06:49 [From Toradol] hallucinati ons Penicillins Allergy Anaphylaxis Verified 06/10/20 06:49 azithromycin AdvReac red face Verified 06/10/20 06:49 lorazepam [From Ativan] AdvReac Hallucinati Verified 06/10/20 06:49 ons Review of Systems ROS Statement: Those systems with pertinent positive or pertinent negative responses have been documented in the HPI. ROS Other: All systems not noted in ROS Statement are negative. Constitutional: Denies: fever, chills Respiratory: Denies: cough, dyspnea Cardiovascular: Denies: chest pain, palpitations, edema Gastrointestinal: Reports: as per HPI, abdominal pain, nausea. 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 BLOOD TRANSFUSIONS FOR LOW HGB. History of Any Multi-Drug Resistant Organisms: MRSA Date of last positivie culture/infection: 08/10/19 MDRO Source:: URINE Past Surgical History: Appendectomy, Bowel Resection, Cholecystectomy, Ear Surgery, Hysterectomy, Orthopedic Surgery Additional Past Surgical History / Comment(s): frantz knee arthroscopy, hiatal hernia surgery, rt ear surgery to remove middle ear, lymph node biopsy right armpit. loop recorder Past Anesthesia/Blood Transfusion Reactions: Postoperative Nausea & Vomiting (PONV) Past Psychological History: Anxiety, Panic Disorder Smoking Status: Never smoker Past Alcohol Use History: None Reported Past Drug Use History: None Reported - Past Family History Mother Family Medical History: No Reported History Additional Family Medical History / Comment(s): . General Exam Limitations: no limitations General appearance: alert, in no apparent distress Head exam: Present: atraumatic, normocephalic Eye exam: Present: normal appearance. Absent: scleral icterus, conjunctival injection ENT exam: Present: normal oropharynx Neck exam: Present: normal inspection Respiratory exam: Present: normal lung sounds bilaterally. Absent: respiratory distress, wheezes, rales, rhonchi, stridor Cardiovascular Exam: Present: regular rate, normal rhythm, normal heart sounds. Absent: systolic murmur, diastolic murmur, rubs, gallop GI/Abdominal exam: Present: soft. Absent: distended, tenderness, guarding, rebound, rigid, mass, pulsatile mass, hernia Extremities exam: Present: normal inspection, normal capillary refill. Absent: pedal edema, calf tenderness Back exam: Present: normal inspection. Absent: CVA tenderness (R), CVA tenderness (L) Neurological exam: Present: alert Skin exam: Present: warm, dry, intact, normal color. Absent: rash Course Vital Signs 06/17/20 06/17/20 06/17/20 01:55 03:24 05:52 Temperature 98.0 F 98.2 F Pulse Rate 91 72 77 Respiratory 20 20 18 Rate Blood Pressure 128/85 131/72 116/72 O2 Sat by Pulse 99 98 97 Oximetry Medical Decision Making - Medical Decision Making Patient's 54-year-old woman presenting with exacerbation of abdominal pain that is been going on for many months now. She did have relief of symptoms with analgesics here. Labs are similar to previous studies. No evidence of acute surgical condition or worsening in her condition. She will follow up for the results of her capsule endoscopic. Discussed return parameters - Lab Data Result diagrams: 06/17/20 02:29 06/17/20 02:29 Lab Results 06/17/20 06/17/20 06/17/20 Range/Units 02:29 02:29 02:29 WBC 7.6 (3.8-10.6) k/uL RBC 3.52 L (3.80-5.40) m/uL Hgb 8.0 L (11.4-16.0) gm/dL Hct 26.1 L (34.0-46.0) % MCV 74.2 L (80.0-100.0) fL MCH 22.8 L (25.0-35.0) pg MCHC 30.7 L (31.0-37.0) g/dL RDW 14.6 (11.5-15.5) % Plt Count 327 (150-450) k/uL MPV 7.7 Neutrophils % 69 % Lymphocytes % 24 % Monocytes % 4 % Eosinophils % 2 % Basophils % 1 % Neutrophils # 5.2 (1.3-7.7) k/uL Lymphocytes # 1.8 (1.0-4.8) k/uL Monocytes # 0.3 (0-1.0) k/uL Eosinophils # 0.2 (0-0.7) k/uL Basophils # 0.0 (0-0.2) k/uL Hypochromasia Marked Poikilocytosis Slight Microcytosis Slight Sodium 140 (137-145) mmol/L Potassium 4.0 (3.5-5.1) mmol/L Chloride 107 (98-107) mmol/L Carbon Dioxide 25 (22-30) mmol/L Anion Gap 8 mmol/L BUN 26 H (7-17) mg/dL Creatinine 1.08 H (0.52-1.04) mg/dL Est GFR (CKD-EPI)AfAm 67 (>60 ml/min/1.73 sqM) Est GFR (CKD-EPI)NonAf 58 (>60 ml/min/1.73 sqM) Glucose 106 H (74-99) mg/dL Calcium 9.4 (8.4-10.2) mg/dL Total Bilirubin 0.2 (0.2-1.3) mg/dL AST 19 (14-36) U/L ALT 8 (4-34) U/L Alkaline Phosphatase 147 H (38-126) U/L Total Protein 6.8 (6.3-8.2) g/dL Albumin 4.0 (3.5-5.0) g/dL Amylase 64 (30-110) U/L Lipase 90 (23-300) U/L Urine Color Yellow Urine Appearance Turbid H (Clear) Urine pH 7.0 (5.0-8.0) Ur Specific [place] 1.022 (1.001-1.035) Urine Protein Trace H (Negative) Urine Glucose (UA) Negative (Negative) Urine Ketones Negative (Negative) Urine Blood Negative (Negative) Urine Nitrite Negative (Negative) Urine Bilirubin Negative (Negative) Urine Urobilinogen <2.0 (<2.0) mg/dL Ur Leukocyte Esterase Large H (Negative) Urine RBC 2 (0-5) /hpf Urine WBC 93 H (0-5) /hpf Ur Squamous Epith Cells 1 (0-4) /hpf Amorphous Sediment Occasional H (None) /hpf Urine Bacteria Rare H (None) /hpf Urine Mucus Rare H (None) /hpf Disposition Clinical Impression: Abdominal pain, Urinary tract infection Disposition: HOME SELF-CARE Condition: Good Instructions (If sedation given, give patient instructions): Urinary Tract Infection in Women (ED), Abdominal Pain (ED) Prescriptions: Ciprofloxacin HCl [Cipro] 500 mg PO Q12HR 1 Days #10 tab Is patient prescribed a controlled substance at d/c from ED?: No Referrals: Scott Medrano MD [Primary Care Provider] - 1-2 days
[2020-06-17] MEDS ORDERED: ONDANSETRON 4 MG/2 ML VIAL IVP STA (04:44)
[2020-06-17 06:01] VITALS: BP 116/72; PULSE 77; RESP 18; TEMP 98.2
== END 2020-06-17 05:52 | disposition home or self-care (01) ==
LOC: EC 01:51
DX: N39.0 Urinary tract infection, site not specified (principal); R10.9 Unspecified abdominal pain; F41.9 Anxiety disorder, unspecified; F41.0 Panic disorder [episodic paroxysmal anxiety]; G40.909 Epilepsy, unspecified, not intractable, without status epilepticus; Z79.899 Other long term (current) drug therapy; Z79.890 Hormone replacement therapy; Z88.1 Allergy status to other antibiotic agents; Z91.048 Other nonmedicinal substance allergy status; Z91.041 Radiographic dye allergy status; Z88.0 Allergy status to penicillin; Z88.6 Allergy status to analgesic agent; Z88.8 Allergy status to other drugs, medicaments and biological substances; Z90.710 Acquired absence of both cervix and uterus; Z85.038 Personal history of other malignant neoplasm of large intestine; Z90.89 Acquired absence of other organs; Z90.49 Acquired absence of other specified parts of digestive tract
CPT/HCPCS: 36415; 80053; 82150; 83690; 85025; 81001; 87086; 99284; 96374; 96375 ×2; 96372; J0500; J2405; J2270; J1170

== ENCOUNTER 2020-06-17 21:23 | Inpatient (IN) | payer OTHER ==
[2020-06-17] MEDS ORDERED: SODIUM CHLORIDE 0.9% 1,000 ML IV STA ×2 (22:36)
[2020-06-17] MEDS ORDERED: ONDANSETRON 4 MG/2 ML VIAL IVP STA (22:36)
[2020-06-17] MEDS ORDERED: PANTOPRAZOLE 40 MG/10 ML VIAL IVP STA (22:36)
[2020-06-17] MEDS ORDERED: HYDROmorphone 1 MG/ML 1 ML SYRINGE IVP STA (22:37)
--- NOTE | 2020-06-17 22:38 | ED ---
Recheck HPI - General Chief Complaint: Abdominal Pain Stated Complaint: Revisit ABD pain Time Seen by Provider: 06/17/20 21:56 Source: patient, RN notes reviewed, old records reviewed Mode of arrival: wheelchair Limitations: no limitations - History of Present Illness Initial Comments: This is a 54-year-old female presented with mother for repeat evaluation regarding severe abdominal pain. Patient was seen multiple times recently for similar complaint and pain is not will not let up. She has had outpatient for seizures which is unsure of results patient is a cancer patient. Unresponsive. Patient states unresponsive events or always related to pain and the pain is getting unbearable. Otherwise denies any new issue, no nausea vomiting does se bebe pain patient is unable to do anything but lying in bed at home MD Complaint: other (Reevaluation of severe abdominal pain) -: week(s) Returns Today for: persistent/worsening pain related to initial visit Symptoms Since Prior Visit: worsening pain Context: ran out of medication Associated Symptoms: malaise, nausea, abdominal pain Treatments Prior to Arrival: Given Pain Meds on - Related Data Home Medications Medication Instructions Recorded Confirmed lamoTRIgine [LaMICtal] 200 mg PO BID 09/26/18 06/17/20 Topiramate 100 mg PO QAM 12/19/18 06/17/20 clonazePAM [KlonoPIN] 1.5 mg PO Q12H 04/20/19 06/17/20 Topiramate 50 mg PO HS 12/19/19 06/17/20 Sertraline [Zoloft] 100 mg PO QAM 02/06/20 06/17/20 Allergies Allergy/AdvReac Type Severity Reaction Status Date / Time erythromycin base Allergy Rash/Hives Verified 06/17/20 23:22 gadobutrol [From Gadavist] Allergy Anaphylaxis Verified 06/17/20 23:22 Gadolinium-Containing Allergy Anaphylaxis Verified 06/17/20 23:22 Contrast Medi iodine Allergy Anaphylaxis Verified 06/17/20 23:22 ketorolac tromethamine Allergy Rash/Hives/ Verified 06/17/20 23:22 [From Toradol] hallucinati ons Penicillins Allergy Anaphylaxis Verified 06/17/20 23:22 azithromycin AdvReac red face Verified 06/17/20 23:22 lorazepam [From Ativan] AdvReac Hallucinati Verified 06/17/20 23:22 ons Review of Systems ROS Statement: Those systems with pertinent positive or pertinent negative responses have been documented in the HPI. ROS Other: All systems not noted in ROS Statement are negative. 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 BLOOD TRANSFUSIONS FOR LOW HGB. History of Any Multi-Drug Resistant Organisms: MRSA Date of last positivie culture/infection: 08/10/19 MDRO Source:: URINE Past Surgical History: Appendectomy, Bowel Resection, Cholecystectomy, Ear Surgery, Hysterectomy, Orthopedic Surgery Additional Past Surgical History / Comment(s): frantz knee arthroscopy, hiatal hernia surgery, rt ear surgery to remove middle ear, lymph node biopsy right armpit. loop recorder Past Anesthesia/Blood Transfusion Reactions: Postoperative Nausea & Vomiting (PONV) Past Psychological History: Anxiety, Panic Disorder Smoking Status: Never smoker Past Alcohol Use History: None Reported Past Drug Use History: None Reported - Past Family History Mother Family Medical History: No Reported History Additional Family Medical History / Comment(s): . Father Family Medical History: No Reported History Additional Family Medical History / Comment(s): Father is healthy General Exam Limitations: no limitations General appearance: alert, in no apparent distress Head exam: Present: atraumatic, normocephalic, normal inspection Eye exam: Present: normal appearance, PERRL, EOMI. Absent: scleral icterus, conjunctival injection, periorbital swelling ENT exam: Present: normal exam, mucous membranes moist Neck exam: Present: normal inspection. Absent: tenderness, meningismus, lymphadenopathy Respiratory exam: Present: normal lung sounds bilaterally. Absent: respiratory distress, wheezes, rales, rhonchi, stridor Cardiovascular Exam: Present: regular rate, normal rhythm, normal heart sounds. Absent: systolic murmur, diastolic murmur, rubs, gallop, clicks GI/Abdominal exam: Present: soft, normal bowel sounds. Absent: distended, tenderness, guarding, rebound, rigid Extremities exam: Present: normal inspection, full ROM, normal capillary refill. Absent: tenderness, pedal edema, joint swelling, calf tenderness Back exam: Present: normal inspection Neurological exam: Present: alert, oriented X3, CN II-XII intact Psychiatric exam: Present: normal affect, normal mood Skin exam: Present: warm, dry, intact, normal color. Absent: rash Course Vital Signs 06/17/20 06/17/20 06/17/20 21:46 22:26 23:03 Temperature 98.1 F Pulse Rate 92 82 81 Respiratory 20 18 18 Rate Blood Pressure 111/57 106/72 143/65 O2 Sat by Pulse 97 97 96 Oximetry 06/18/20 06/18/20 06/18/20 01:00 08:58 13:03 Temperature Pulse Rate 83 62 89 Respiratory 16 16 18 Rate Blood Pressure 120/72 127/72 118/50 O2 Sat by Pulse 94 L 99 97 Oximetry - Reevaluation(s) Reevaluation #1: Medical record is reviewed Patient does feel better here in the ER Spoke with patient regarding findings here in the ER and questions are answered Patient's pain is improved but she does not fill comfortable with discharge Reevaluation #2: Patient refusing further imaging here in the ER Medical Decision Making - Medical Decision Making 54 female presented today for evaluation of recurrent abdominal pain history of same. At this point patient will be admitted for pain control and symptom management - Lab Data Result diagrams: 06/19/20 02:20 06/18/20 05:24 Disposition Clinical Impression: Abdominal pain Disposition: ADMITTED IP TO THIS [facility] Condition: Good Is patient prescribed a controlled substance at d/c from ED?: No
[2020-06-17 23:49] LABS: Basophils % (A) 1 %; Eosinophils # (A) 0.1 k/uL (0-0.7); Eosinophils % (A) 2 %; HCT 25.5 % (34.0-46.0); HGB 8.1 gm/dL (11.4-16.0); Hypochromasia Marked; Lymphocytes # (A) 1.7 k/uL (1.0-4.8); Lymphocytes % (A) 27 %; MCH 23.3 pg (25.0-35.0); MCHC 31.5 g/dL (31.0-37.0); MCV 74.1 fL (80.0-100.0); Mean Platelet Volume 7.5; Microcytosis Slight; Monocytes # (A) 0.3 k/uL (0-1.0); Monocytes % (A) 5 %; Neutrophils # (A) 4.2 k/uL (1.3-7.7); Neutrophils % (A) 65 %; Platelet Count 304 k/uL (150-450); Poikilocytosis Slight; RBC 3.45 m/uL (3.80-5.40); RDW 14.5 % (11.5-15.5); WBC 6.5 k/uL (3.8-10.6)
[2020-06-18 00:16] LABS: ALT 9 U/L (4-34); AST 22 U/L (14-36); African American GFR (CKD) >90 (>60 ml/min/1.73 sqM); Albumin 3.9 g/dL (3.5-5.0); Alkaline Phosphatase 150 U/L (38-126); Amylase 57 U/L (30-110); Anion Gap 9 mmol/L; Blood Urea Nitrogen 20 mg/dL (7-17); Calcium 9.3 mg/dL (8.4-10.2); Carbon Dioxide 23 mmol/L (22-30); Chloride 106 mmol/L (98-107); Glucose 108 mg/dL (74-99); Lipase 62 U/L (23-300); Non-African American GFR(CKD) 78 (>60 ml/min/1.73 sqM); Potassium 4.2 mmol/L (3.5-5.1); Sodium 138 mmol/L (137-145); Total Bilirubin 0.3 mg/dL (0.2-1.3); Total Protein 6.7 g/dL (6.3-8.2)
[2020-06-18 03:46] LABS: Amorphous Sediment,Urine Rare /hpf; Appearance,Urine Cloudy (Clear); Bacteria,Urine Rare /hpf; Bilirubin,Urine Negative (Negative); Blood,Urine Trace (Negative); Color,Urine Light Yellow; Glucose,Urine (UA) Negative (Negative); Hyaline Casts,Urine 2 /lpf (0-2); Ketones,Urine Negative (Negative); Leukocyte Esterase,Urine Large (Negative); Mucus,Urine Moderate /hpf; Nitrite,Urine Negative (Negative); Protein,Urine Trace (Negative); RBC,Urine 35 /hpf (0-5); Specific Gravity,Urine 1.013 (1.001-1.035); Squamous Epithelial Cell,Urine 2 /hpf (0-4); Urobilinogen,Urine <2.0 mg/dL (<2.0); WBC,Urine >182 /hpf (0-5)
[2020-06-18] MEDS: HYDROmorphone 1 MG/ML 1 ML SYRINGE IVP PRN ×4 (04:20→18:07)
[2020-06-18 05:59] LABS: Albumin 3.6 g/dL (3.5-5.0); Potassium 4.3 mmol/L (3.5-5.1); Total Bilirubin 0.2 mg/dL (0.2-1.3); Total Protein 6.3 g/dL (6.3-8.2)
[2020-06-18 06:16] LABS: Basophils % (A) 1 %; Eosinophils # (A) 0.1 k/uL (0-0.7); Eosinophils % (A) 2 %; HCT 25.5 % (34.0-46.0); HGB 7.6 gm/dL (11.4-16.0); Hypochromasia Marked; Lymphocytes % (A) 36 %; MCH 22.5 pg (25.0-35.0); MCHC 29.7 g/dL (31.0-37.0); Mean Platelet Volume 7.2; Microcytosis Slight; Monocytes # (A) 0.3 k/uL (0-1.0); Monocytes % (A) 5 %; Neutrophils # (A) 3.1 k/uL (1.3-7.7); Neutrophils % (A) 56 %; Platelet Count 275 k/uL (150-450); Poikilocytosis Slight; RBC 3.35 m/uL (3.80-5.40); RDW 14.2 % (11.5-15.5); WBC 5.5 k/uL (3.8-10.6)
--- NOTE | 2020-06-18 12:08 | CONS ---
CONSULTATION DATE OF DICTATION: June 18, 2020. REASON FOR CONSULTATION: Abdominal pain, microcytic hypochromic anemia. HISTORY OF PRESENT ILLNESS: The patient is a 54-year-old pleasant white female who came to the emergency room complaining of severe abdominal pain for the last 4 days duration. The patient has been having intermittent upper abdominal pain on and off for the last 3 years duration. The pain is mostly in the right upper quadrant area as well as in the epigastric area and in the last few years she was investigated extensively. She follows with Dr. Haney in the office. Patient has prior history of colon cancer diagnosed in 2018 for which she underwent segmental colon resection by Dr. Modi. Subsequently, she did have a surveillance colonoscopy on August 24, 2019 that was unremarkable. The patient thinks that she also had an upper endoscopy done at the same time, but no report is available at the time of this dictation. She has been complaining of severe epigastric pain, right upper quadrant area with no associated nausea, vomiting on and off for the last 3 years duration. She denies any recent NSAID use. She reports no prior history of peptic ulcer disease. She was seen by Dr. Haney in the office 10 days ago as part of hospital followup and was scheduled for a small bowel capsule endoscopy that was done about a week ago. The results of which are not available at the time of this dictation. During her last ER visit, she did have a CT scan of the abdomen and pelvis done on June 12 that was unremarkable. She also has been complaining of 3-4 loose bowel movements daily with rectal bleeding intermittently. At the time of admission to the hospital, she was noted to have a hemoglobin of 7.1 g/dL with decreased MCV suggestive of iron deficiency anemia. She also had recent labs done in the office by Dr. Haney which showed ferritin 0.8, an iron saturation of 2%. PAST MEDICAL HISTORY: Her past medical history is significant for fibromyalgia, seizure disorder, history of colon cancer, migraines, psoriasis. PAST SURGICAL HISTORY: Appendectomy, colon resection for colon cancer in 2018, cholecystectomy, ear surgery, hysterectomy, hiatal hernia surgery, bilateral knee arthroscopies. MEDICATIONS: Medications at home include Lamictal, Klonopin, topiramate, Zoloft, Protonix. ALLERGIES: Allergies to E-MYCIN, GADOLINIUM, KETORALAC, PENICILLIN, AZITHROMYCIN, and ATIVAN. SOCIAL HISTORY: No smoking. No alcohol use. FAMILY HISTORY: Mother unremarkable. REVIEW OF SYSTEMS: CARDIOPULMONARY: She denies any chest pain or shortness of breath. GENITOURINARY: No dysuria or hematuria. MUSCULOSKELETAL: Severe back pain. NEUROLOGY: Unremarkable. PSYCHIATRIC: Unremarkable. ENT/VISION: Unremarkable. PSYCHIATRY: History of anxiety, depression. CONSTITUTIONAL: No recent weight loss. No fever, chills, night sweats. HEMATOLOGY: Severe anemia. ENDOCRINE: Unremarkable. ONCOLOGY: Colon cancer in 2018. PHYSICAL EXAMINATION: She appears comfortable. No apparent distress. Vital signs are stable. Blood pressure is 127/72, pulse rate 62, temperature 98.1. HEENT EXAMINATION: Unremarkable. Conjunctivae pink. Sclerae anicteric. Oral cavity no lesions. NECK: No JVD or lymph node enlargement. CHEST: Was clear to auscultation. HEART: Regular rate and rhythm. ABDOMEN: Soft. There was severe tenderness in the epigastric area in the right upper quadrant area as well as in the left upper quadrant area. Rest of the abdomen was benign. Bowel sounds are positive. No organomegaly. EXTREMITIES: No pedal edema. SKIN: No rashes. NEURO: She is alert and oriented x3. No focal deficits. LABS: WBC 5.5, hemoglobin 7.6, MCV 76. BUN 18, creatinine 0.92. AST, ALT, T bilirubin are normal. Alkaline phosphatase is 152. Coronavirus PCR is negative. Hemoglobin from April was 9.8 g/dL. IMPRESSION: 1. Severe epigastric pain and right upper quadrant abdominal pain for the last 3 years duration, which was progressively getting worse in the last few days. According to the patient, she had an upper endoscopy done a year ago by Dr. Modi that was unremarkable, but the report is not available at the time of this dictation. She denies any recent NSAID use and no prior history of peptic ulcer disease. At this time, possibility of upper GI pathology, especially gastritis and peptic ulcer disease needs to be considered. 2. Severe microcytic hypochromic anemia in this lady who has prior history of colon cancer in 2018 for which she underwent colon resection. Her last colonoscopy by Dr. Modi in August of 2019 at [facility] was unremarkable. 3. History of anxiety, depression. RECOMMENDATIONS: 1. Start her on Protonix 40 mg daily. 2. We will obtain her prior records from [facility] regarding her last EGD. Colonoscopy. 3. We will consider proceeding with an upper endoscopy tomorrow to investigate the ongoing abdominal pain and rule out peptic ulcer disease. 4. Start her on clear liquid diet today. 5. We will review her small bowel capsule endoscopy that was done a week ago. 6. Will follow with you closely. Thank you for this consultation. MMODL / IJN: [id number] /
--- NOTE | 2020-06-18 14:29 | P.HPIM ---
History of Present Illness H&P Date: 06/18/20 Chief Complaint: Diffuse abdominal pain This is a 54-year-old female with past medical history of seizure disorder, anxiety, panic disorder, colon cancer with history of colectomy, chronic anemia, fibromyalgia, stress seizures and multiple other medical issues [facility] visit within 1 week) with complaints of worsening abdominal pain 2 months accompanied by nausea ,vomiting and rectal bleeding. States she has been unable to eat and having multiple watery bloody bowel movements, non-itchy. Reports right upper quadrant and mid epigastric, yet complains to pain in all quadrants upon palpation. Denies flank pain, denies suprapubic pain. Denies painful urination or frequency. Completed a small bowel capsule endoscopy about a week ago, results are currently unavailable. Abdominal CT performed on June 12 reported unremarkable. Hemoglobin 7.6 ( 9.8 in 04/24), MCV decreased, 76, platelets 275. Afebrile, normal WBC. Coronavirus not detected. UA reporting moderate mucus, rare bacteria, greater than 182 WBCs, large leukocytes, negative nitrates ,Urine culture pending. On admission, BUN 26, creatinine 1.8, improving down to 18/0.92. Alk phos elevated 152. Vital signs stable, maintaining O2 sats in the high 90s on room air. Review of Systems ROS Statement: Those systems with pertinent positive or pertinent negative responses have been documented in the HPI. ROS Other: All systems not noted in ROS Statement are negative. 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 BLOOD TRANSFUSIONS FOR LOW HGB. History of Any Multi-Drug Resistant Organisms: MRSA Date of last positivie culture/infection: 08/10/19 MDRO Source:: URINE Past Surgical History: Appendectomy, Bowel Resection, Cholecystectomy, Ear Surgery, Hysterectomy, Orthopedic Surgery Additional Past Surgical History / Comment(s): frantz knee arthroscopy, hiatal hernia surgery, rt ear surgery to remove middle ear, lymph node biopsy right armpit. loop recorder Past Anesthesia/Blood Transfusion Reactions: Postoperative Nausea & Vomiting (PONV) Past Psychological History: Anxiety, Panic Disorder Smoking Status: Never smoker Past Alcohol Use History: None Reported Past Drug Use History: None Reported - Past Family History Mother Family Medical History: No Reported History Additional Family Medical History / Comment(s): . Father Family Medical History: No Reported History Additional Family Medical History / Comment(s): Father is healthy Medications and Allergies Home Medications Medication Instructions Recorded Confirmed Type lamoTRIgine [LaMICtal] 200 mg PO BID 09/26/18 06/17/20 History Topiramate 100 mg PO QAM 12/19/18 06/17/20 History clonazePAM [KlonoPIN] 1.5 mg PO Q12H 04/20/19 06/17/20 History Topiramate 50 mg PO HS 12/19/19 06/17/20 History Sertraline [Zoloft] 100 mg PO QAM 02/06/20 06/17/20 History Allergies Allergy/AdvReac Type Severity Reaction Status Date / Time erythromycin base Allergy Rash/Hives Verified 06/17/20 23:22 gadobutrol [From Gadavist] Allergy Anaphylaxis Verified 06/17/20 23:22 Gadolinium-Containing Allergy Anaphylaxis Verified 06/17/20 23:22 Contrast Medi iodine Allergy Anaphylaxis Verified 06/17/20 23:22 ketorolac tromethamine Allergy Rash/Hives/ Verified 06/17/20 23:22 [From Toradol] hallucinati ons Penicillins Allergy Anaphylaxis Verified 06/17/20 23:22 azithromycin AdvReac red face Verified 06/17/20 23:22 lorazepam [From Ativan] AdvReac Hallucinati Verified 06/17/20 23:22 ons Physical Exam Vitals: Vital Signs Temp Pulse Resp BP Pulse Ox 06/18/20 08:58 62 16 127/72 99 06/18/20 01:00 83 16 120/72 94 L 06/17/20 23:03 81 18 143/65 96 06/17/20 22:26 82 18 106/72 97 06/17/20 21:46 98.1 F 92 20 111/57 97 Intake and Output 06/17/20 06/18/20 06/18/20 22:59 06:59 14:59 Other: Weight 77.111 kg PHYSICAL EXAM: VITAL SIGNS: [As above] GENERAL: Sitting up on stretcher, no acute distress HEENT: Conjunctivae normal. eyes normal. NECK: No JVD. No thyroid enlargement. No LNs CARDIOVASCULAR: S1, S2 regular. No murmur RESPIRATION: Breath sounds diminished in the bases. No rhonchi or crackles. No bronchial breathing. ABDOMEN: Soft, nondistended, diffuse tenderness throughout. No guarding. no masses palpable. No ascites, No hepatosplenomegaly.Bowel sounds heard. LEGS: No edema. no swelling PSYCHIATRY: Alert and oriented X3, mood and affect normal. NERVOUS SYSTEM: Cranial nerves II through XII grossly intact. No focal deficits. Strict and sensation grossly intact Skin: Warm and dry, no rash Lymphatic system. No LN neck axilla. Results CBC & Chem 7: 06/18/20 05:24 06/18/20 05:24 Labs: Abnormal Lab Results - Last 24 Hours (Table) 06/17/20 06/17/20 06/18/20 Range/Units 23:03 23:03 02:44 RBC 3.45 L (3.80-5.40) m/uL Hgb 8.1 L (11.4-16.0) gm/dL Hct 25.5 L (34.0-46.0) % MCV 74.1 L (80.0-100.0) fL MCH 23.3 L (25.0-35.0) pg MCHC (31.0-37.0) g/dL Chloride (98-107) mmol/L BUN 20 H (7-17) mg/dL Glucose 108 H (74-99) mg/dL Alkaline Phosphatase 150 H (38-126) U/L Urine Appearance Cloudy H (Clear) Urine Protein Trace H (Negative) Urine Blood Trace H (Negative) Ur Leukocyte Esterase Large H (Negative) Urine RBC 35 H (0-5) /hpf Urine WBC >182 H (0-5) /hpf Amorphous Sediment Rare H (None) /hpf Urine Bacteria Rare H (None) /hpf Urine Mucus Moderate H (None) /hpf 06/18/20 06/18/20 Range/Units 05:24 05:24 RBC 3.35 L (3.80-5.40) m/uL Hgb 7.6 L (11.4-16.0) gm/dL Hct 25.5 L (34.0-46.0) % MCV 76.0 L (80.0-100.0) fL MCH 22.5 L (25.0-35.0) pg MCHC 29.7 L (31.0-37.0) g/dL Chloride 108 H (98-107) mmol/L BUN 18 H (7-17) mg/dL Glucose 100 H (74-99) mg/dL Alkaline Phosphatase 152 H (38-126) U/L Urine Appearance (Clear) Urine Protein (Negative) Urine Blood (Negative) Ur Leukocyte Esterase (Negative) Urine RBC (0-5) /hpf Urine WBC (0-5) /hpf Amorphous Sediment (None) /hpf Urine Bacteria (None) /hpf Urine Mucus (None) /hpf Microbiology - Last 24 Hours (Table) 06/18/20 02:44 Urine Culture - Preliminary Urine,Voided Assessment and Plan Assessment: Diffuse abdominal pain, which he, watery bowel movements, possible peptic ulcer disease, gastritis, ischemic colitis history of conversion disorder, Possible acute UTI, clinically doubtful-asymptomatic, culture pending. Hypertension History of stress seizures History of colon cancer with colectomy Chronic anemia, Fibromyalgia History of syncope Anxiety, panic disorder PONV Hyperlipidemia Plan: Continue on current medication regime ,monitoring and symptomatic treatment. GI consulted with recommendations noted and appreciated. Scheduled for EGD tomorrow. Capsule study results being obtained. Patient also reports endoscopy procedures performed with at [facility], reports being obtained. PPI for GI prophylaxis. Close monitoring of hemoglobin, platelets, electrolytes, renal function with repeat labs ordered for a.m. Discharge planning in progress for tomorrow pending EGD results, DC recommendations and clearance per GI. The impression and plan of care has been dictated as directed. : I performed a history and examination of this patient, discussed the same with the dictator. I agree with the dictator's note ,documented as a scribe. Any additional findings or plans will be noted.
[2020-06-18] MEDS: clonazePAM 0.5 MG TAB PO SCH ×2 (15:05→21:01)
[2020-06-18] MEDS ORDERED: NALOXONE 0.4 MG/ML 1 ML VIAL ONE (19:53)
[2020-06-18 19:55] LABS: Glucose,Whole Blood 107 mg/dL (75-99)
[2020-06-18] MEDS ORDERED: ACETAMINOPHEN TAB 325 MG TAB PO STA (20:21)
[2020-06-18 20:37] LABS: Basophils % (A) 1 %; Eosinophils # (A) 0.1 k/uL (0-0.7); Eosinophils % (A) 2 %; HCT 26.4 % (34.0-46.0); HGB 7.7 gm/dL (11.4-16.0); Hypochromasia Marked; Lymphocytes # (A) 1.6 k/uL (1.0-4.8); Lymphocytes % (A) 24 %; MCH 22.3 pg (25.0-35.0); MCHC 29.3 g/dL (31.0-37.0); MCV 75.9 fL (80.0-100.0); Mean Platelet Volume 8.6; Microcytosis Slight; Monocytes # (A) 0.3 k/uL (0-1.0); Monocytes % (A) 5 %; Neutrophils # (A) 4.5 k/uL (1.3-7.7); Neutrophils % (A) 68 %; Platelet Count 276 k/uL (150-450); Poikilocytosis Slight; RBC 3.47 m/uL (3.80-5.40); RDW 14.2 % (11.5-15.5); WBC 6.5 k/uL (3.8-10.6)
[2020-06-18] MEDS: PANTOPRAZOLE 40 MG/10 ML VIAL IVP SCH (21:00)
[2020-06-18] MEDS: lamoTRIgine 100 MG TAB PO SCH (21:01)
[2020-06-18] MEDS: TOPIRAMATE 25 MG TAB PO SCH (21:25)
--- NOTE | 2020-06-18 22:36 | P.EN ---
mag lowe called on this patient , however, it turns out that patient did not actually lose pulse, and care continued as an A team for syncope 54 year old female with history of seizure , colon cancer. admitted for suspected GI bleeding , and possible UTI patient was on the comode , was not able to urinate , and as she was transferred back to the bed, she became diaphoretic and unresponsive. however, she did not lose pulse. this event was about 1-2 hours after getting a dose of 1 mg of dilaudid . patient vital sings were stable oxygen sat 97% on room air, blood pressure 160s/80s, HR 80s patient was drowsy, confused, and lethargic ., blood sugar checked and was 105 gm/dl. narcan was given , and immediately patient started regaining alertness , and became more awake, she was complaining of headache now . she denies any focal neuro deficits after narcan patient alert, oriented to place and person lungs good breath sounds bilaterally , no wheezing or rales heart , normal s1 s2 , no murmurs, no peripheral edema neuro , strength 4/5 throughout, no focal sensory deficits, CN II-XII grossly intact patient following commands, then was able to engage in full discussion and evaluation appropriately EKG post syncope was done , showed no acute changes compared to before, however, computer interpreted acute [place], EKG was discussed with cardiology control systems developer, and agreed that there were no changes suggestive of acute [place] patient denies chest pain or trouble breathing trops later came back negative patient denies any cardiac history in the past. patient reported difficulty urinating, bladder scan showed about 300 cc of urine , will await 1-2 hours give patient some time to void , if continues to fail, or start getting uncomfortable then would consider straight cath cbc checked and showed stable Hgb at 7.7 assessment syncope most likely vasovagal , and medication side effect (dilaudid ) rule out cardiac arrhythmia plan serial trops (initial negative) monitor hgb , currently stable 7.7 protonix BID IV, for suspected GI bleed IVF with normal saline at 120 cc/hr monitor urine output , and encourage void trials , if continues to have difficulties, consider straight cath school lunch monitor on tele , to monitor for any arrhythmias 41 minutes were spent in critical care service in the care of this patient
[2020-06-19] MEDS: traMADol 50 MG TAB PO PRN ×2 (02:18→20:09)
[2020-06-19] MEDS: SODIUM CHLORIDE 0.9% 1,000 ML IV SCH ×3 (04:36→20:05)
[2020-06-19] MEDS: PANTOPRAZOLE 40 MG/10 ML VIAL IVP SCH ×2 (08:16→20:06)
[2020-06-19] MEDS: SERTRALINE 100 MG TAB PO SCH (08:16)
[2020-06-19] MEDS: lamoTRIgine 100 MG TAB PO SCH ×2 (08:16→20:06)
[2020-06-19] MEDS: clonazePAM 0.5 MG TAB PO SCH ×2 (08:30→20:06)
[2020-06-19] MEDS: TOPIRAMATE 100 MG TAB PO SCH (08:53)
[2020-06-19 09:32] LABS: HCT 24.6 % (37.2-46.3); HGB 7.1 g/dL (12.0-15.0); MCH 22.1 pg (27.0-32.0); MCHC 28.9 g/dL (32.0-37.0); MCV 76.6 fL (80.0-97.0); Mean Platelet Volume 10.4 fL (9.5-12.2); Platelet Count 305 X 10*3/uL (140-440); RBC 3.21 X 10*6/uL (4.10-5.20); RDW 14.6 % (11.5-14.5)
[2020-06-19] MEDS ORDERED: LIDOCAINE 1% INJ 10MG/ML (20 ML MDV) ONE (11:53)
[2020-06-19] MEDS ORDERED: PROPOFOL 10 MG/ML 20 ML VIAL IV ONE (11:53)
[2020-06-19] MEDS ORDERED: IV FLUID CONTINUATION 1,000 ML IV ONE (12:16)
--- NOTE | 2020-06-19 12:22 | P.PCN ---
Date of Procedure: 06/19/20 Description of Procedure: BRIEF HISTORY: Patient is a 54-year-old female scheduled for a push enteroscopy for iron deficiency anemia and abdominal pain. Patient had presented to the hospital with intermittent abdominal pain occurring over the past 3 years and worse recently. The patient has had multiple endoscopic evaluations and has a history of segmental colonic resection in 2018 for colon cancer with surgical service. He underwent surveillance colonoscopy in 08/2019 which was unremarkable and EGD in 01/2020 which was also unremarkable as per patient's report. Video capsule endoscopy performed in evaluation of anemia was negative for any signs of bleeding. She is previously followed up with Dr. Schilling from the oncology service. She did have a computed tomography scan performed on 06/13/2019 in the ER which was unremarkable. PROCEDURE PERFORMED: Push enteroscopy. PREOPERATIVE DIAGNOSIS: Iron deficiency anemia, abdominal pain. ESTIMATED BLOOD LOSS: Minimal. IV sedation per anesthesia. PROCEDURE: After informed consent was obtained, the patient was brought into the endoscopy unit. IV sedation was administered by Anesthesia under continuous monitoring. Initially the pediatric video colonoscope was inserted into the mouth. Esophagus intubated without any difficulty. It was gradually advanced into the stomach and duodenum and into the proximal jejunum approximately 50 cm from the pylorus and the tissue was carefully examined. The proximal jejunum and entire examined duodenum were negative for any signs of bleeding or pathology to explain symptoms. The scope at this time was withdrawn to the stomach, adequately insufflated with air, and upon careful examination, mucosa of the antrum, body, cardia and the fundus appeared normal. The scope was then withdrawn into the esophagus. The GE junction was located at 38 cm from the incisors. The esophagus appeared normal. There were no erosions or ulcerations seen and the patient tolerated the procedure well. IMPRESSION: 1. Normal push enteroscopy with no pathology to explain pain or evidence of active bleeding, old blood or pathology to explain anemia. RECOMMENDATIONS: The findings of this examination were discussed with the patient in the medical team. Okay for trial of diet. Continue to monitor hemoglobin and hematocrit and transfuse as needed. Patient would benefit from IV iron transfusion. Patient would benefit from hematology consult either prior to discharge or after discharge for continued monitoring and evaluation, otherwise okay for discharge when medically stable.
--- NOTE | 2020-06-19 12:56 | P.PN ---
Subjective Progress Note Date: 06/19/20 This is a 54-year-old female with past medical history of seizure disorder, anxiety, panic disorder, colon cancer with history of colectomy, chronic anemia, fibromyalgia, stress seizures and multiple other medical issues presenting to the ER ( third visit within 1 week) with complaints of worsening abdominal pain 2 months accompanied by nausea ,vomiting and rectal bleeding. States she has been unable to eat and having multiple watery bloody bowel movements, non-itchy. Reports right upper quadrant and mid epigastric, yet complains to pain in all quadrants upon palpation. Denies flank pain, denies suprapubic pain. Denies painful urination or frequency. Completed a small bowel capsule endoscopy about a week ago, results are currently unavailable. Abdominal CT performed on June 12 reported unremarkable. Hemoglobin 7.6 ( 9.8 in 04/24), MCV decreased, 76, platelets 275. Afebrile, normal WBC. Coronavirus not detected. UA reporting moderate mucus, rare bacteria, greater than 182 WBCs, large leukocytes, negative nitrates ,Urine culture pending. On admission, BUN 26, creatinine 1.8, improvin g down to 18/0.92. Alk phos elevated 152. Vital signs stable, maintaining O2 sats in the high 90s on room air. 06/18/2020 NPO, scheduled for EGD. Patient had been receiving Dilaudid IV push throughout the day, became unresponsive last night ,requiring A team to be called. Patient reported to have maintained stable vital signs throughout the event. Responded immediately to Narcan. Dilaudid was discontinued. No further bleeding reported. Hemoglobin 7.1 ,NPO, EGD pending. Denies any chest pain, palpitations or shortness of breath. Afebrile, normal WBC. Pain currently controlled on Ultram. Objective - Vital Signs Vital signs: Vital Signs Temp 97.7 F 06/19/20 07:25 Pulse 65 06/19/20 07:25 Resp 16 06/19/20 07:25 BP 126/64 06/19/20 07:25 Pulse Ox 99 06/19/20 07:25 Intake & Output 06/18/20 06/19/20 06/19/20 18:59 06:59 18:59 Weight 77.111 kg Other: # Voids 1 # Bowel Movements 1 - Exam PHYSICAL EXAM: VITAL SIGNS: [As above] GENERAL: Sitting upin bed, NAD HEENT: Conjunctivae normal. eyes normal. NECK: No JVD. No thyroid enlargement. CARDIOVASCULAR: S1, S2 regular. No murmur RESPIRATION: Breath sounds diminished in the bases. No rhonchi, crackles or wheezing ABDOMEN: Soft, nondistended, diffuse tenderness throughout. No guarding. Positive bowel sounds. LEGS: No edema. no swelling. PSYCHIATRY: Alert and oriented X3, mood and affect normal. NERVOUS SYSTEM:Cranial nerves II through XII grossly intact. No focal deficits. Strict and sensation grossly intact Skin: Warm and dry, no rash. - Labs CBC & Chem 7: 06/19/20 02:20 06/18/20 05:24 Labs: Abnormal Lab Results - Last 24 Hours (Table) 06/18/20 06/18/20 06/19/20 Range/Units 19:55 20:20 02:20 RBC 3.47 L 3.21 L (3.80-5.40) m/uL Hgb 7.7 L 7.1 L (11.4-16.0) gm/dL Hct 26.4 L 24.6 L (34.0-46.0) % MCV 75.9 L 76.6 L (80.0-100.0) fL MCH 22.3 L 22.1 L (25.0-35.0) pg MCHC 29.3 L 28.9 L (31.0-37.0) g/dL RDW 14.6 H (11.5-14.5) % POC Glucose (mg/dL) 107 H (75-99) mg/dL Microbiology - Last 24 Hours (Table) 06/18/20 02:44 Urine Culture - Preliminary Urine,Voided Assessment and Plan Assessment: Diffuse abdominal pain, with watery bloody bowel movements, possible peptic ulcer disease, gastritis, ischemic colitis history of conversion disorder, Syncope, Vasovagal, suspect Dilaudid-induced. Status post Narcan. Possible acute UTI, clinically doubtful-asymptomatic, culture pending. Hypertension History of stress seizures History of colon cancer with colectomy Chronic anemia, suspect iron deficient Fibromyalgia History of syncope Anxiety, panic disorder PONV Hyperlipidemia Plan: Continue on current medication regime ,monitoring and symptomatic treat ment. EGD pending. Possible dc after endoscopy pending results. Apparently patient had a workup for anemia with hematology,Tonie Quesada, 2020, reports ordered and recommend follow-up outpatient. The impression and plan of care has been dictated as directed. : I performed a history and examination of this patient, discussed the same with the dictator. I agree with the dictator's note ,documented as a scribe. Any additional findings or plans will be noted.
[2020-06-19] MEDS: SODIUM FERRIC GLUCONAT-SUCROSE 125 MG in SODIUM CHLORIDE 0.9% 100 ML IVPB SCH (13:25)
[2020-06-19 14:01] VITALS: BMI 32.1
[2020-06-19 14:13] VITALS: RESP 16
[2020-06-19] MEDS: TOPIRAMATE 25 MG TAB PO SCH (20:20)
[2020-06-20] MEDS: traMADol 50 MG TAB PO PRN ×2 (02:18→09:34)
[2020-06-20] MEDS: SODIUM CHLORIDE 0.9% 1,000 ML IV SCH ×2 (02:21→09:27)
[2020-06-20 03:20] VITALS: TEMP 98.1
[2020-06-20 03:23] VITALS: PULSE 66
[2020-06-20 07:53] VITALS: BP 126/73
[2020-06-20] MEDS: TOPIRAMATE 100 MG TAB PO SCH (09:21)
[2020-06-20] MEDS: lamoTRIgine 100 MG TAB PO SCH (09:21)
[2020-06-20] MEDS: SERTRALINE 100 MG TAB PO SCH (09:21)
[2020-06-20] MEDS: clonazePAM 0.5 MG TAB PO SCH (09:21)
[2020-06-20] MEDS: PANTOPRAZOLE 40 MG/10 ML VIAL IVP SCH (09:21)
[2020-06-20] MEDS: SODIUM FERRIC GLUCONAT-SUCROSE 125 MG in SODIUM CHLORIDE 0.9% 100 ML IVPB SCH (09:21)
[2020-06-20 11:21] LABS: HCT 26.1 % (34.0-46.0); HGB 7.9 gm/dL (11.4-16.0); Hypochromasia Marked; MCH 22.4 pg (25.0-35.0); MCHC 30.2 g/dL (31.0-37.0); MCV 74.2 fL (80.0-100.0); Mean Platelet Volume 8.1; Microcytosis Slight; Platelet Count 261 k/uL (150-450); Poikilocytosis Slight; RBC 3.52 m/uL (3.80-5.40); RDW 14.5 % (11.5-15.5); WBC 5.5 k/uL (3.8-10.6)
[2020-06-20 11:58] LABS: African American GFR (CKD) >90 (>60 ml/min/1.73 sqM); Anion Gap 6 mmol/L; Blood Urea Nitrogen 8 mg/dL (7-17); Calcium 9.2 mg/dL (8.4-10.2); Carbon Dioxide 22 mmol/L (22-30); Chloride 112 mmol/L (98-107); Glucose 95 mg/dL (74-99); Non-African American GFR(CKD) 79 (>60 ml/min/1.73 sqM); Potassium 3.7 mmol/L (3.5-5.1); Sodium 140 mmol/L (137-145)
--- NOTE | 2020-06-20 13:56 | P.PN ---
Subjective Progress Note Date: 06/20/20 Principal diagnosis: Anemia This is a pleasant 54-year-old white female who came to the emergency room complaining of severe abdominal pain for the last 4 days duration. The patient has been having intermittent upper abdominal pain on and off for the last 3 years duration. Pain is mostly in the right upper quadrant as well as in the epigastric area. She follows with Dr. Haney in the office. She has a history of colon cancer diagnosed in 2018 for which she underwent segmental colon resection by Dr. Modi. Subsequently she did have a surveillance colonoscopy on August [id number] that was unremarkable. The patient thinks she had an upper endoscopy done at the same time but no report is available at the time of this dictation. She's been complaining of severe epigastric pain right upper quadrant pain with associated nausea. She recently underwent a small bowel cap scott endoscopy which showed no old signs of blood or active bleeding. Yesterday she underwent a push enteroscopy. Today she seen and evaluated lying in bed. She states she still has abdominal pain in the right upper quadrant. She states she's had 2 bowel movements this admission that have had some blood. She denies any nausea or vomiting. Objective - Vital Signs Vital signs: Vital Signs Temp 98.1 F 06/20/20 07:00 Pulse 66 06/20/20 07:00 Resp 16 06/20/20 07:00 BP 126/73 06/20/20 07:00 Pulse Ox 98 06/20/20 07:00 Intake & Output 06/19/20 06/20/20 06/20/20 18:59 06:59 18:59 Intake Total 600 Balance 600 Weight 77.111 kg Intake: Oral 600 Other: # Voids 1 2 # Bowel Movements 2 3 - Exam General appearance: The patient is alert, oriented, appears in no acute distress. HET: Head is normocephalic and atraumatic. Conjunctiva pink. Sclera anicteric. Neck: Supple without lymphadenopathy. Abdomen: Soft, right upper quadrant pain, nondistended with bowel sounds. No guarding or rigidity. Extremities: Normal skin color and turgor. No pedal edema Skin: No rashes, no jaundice Neurological: No focal deficits. Alert and oriented 3. - Labs CBC & Chem 7: 06/20/20 11:07 06/20/20 11:07 Labs: Microbiology - Last 24 Hours (Table) 06/18/20 02:44 Urine Culture - Final Urine,Voided Assessment and Plan (1) Epigastric pain Narrative/Plan: This is a pleasant 54-year-old lady who presented to the hospital with severe epigastric pain and right upper quadrant abdominal pain for the last 3 years duration which progressively getting worse in the last few days. She has been following with Dr. Modi and states that she had a upper endoscopy Dr. Modi approximately year ago. She is also following with in the outpatient basis, she had a recent small bowel capsule endoscopy study which was negative for any signs of blood or active bleeding. She denies any recent NSAID use no prior history of peptic ulcer disease. Yesterday she underwent an upper endoscopy to rule out upper GI pathology with findings that included normal push enteroscopy with no pathology to explain pain or evidence of active bleeding, old blood or pathology to explain anemia. Current Visit: Yes Status: Acute Code(s): R10.13 - EPIGASTRIC PAIN SNOMED Code(s): 31276368 (2) Microcytic hypochromic anemia Narrative/Plan: Patient has a history of severe microcytic hypochromic anemia with a prior history of colon cancer in 2018 for which he underwent colon resection. Her last colonoscopy by Dr. Modi's in August 2019 at [facility] which was unremarkable. Patient is supposed to follow with Dr. Fortune from [email or web address], however has not seen him in some time. Patient is recommended to have follow-up with hematology. IV iron 2 ordered and given. Current Visit: Yes Status: Acute Code(s): D50.9 - IRON DEFICIENCY ANEMIA, UNSPECIFIED SNOMED Code(s): 23968578 Plan: 1. Supportive care 2. IV iron 2 doses 3. Diet as tolerated 4. Patient is status post push enteroscopy and small bowel capsule with no evidence of any active bleeding or pathology noted to explain symptoms of abdominal pain 5. Patient may be discharged home from the gastroenterology standpoint with follow-up with Dr. Haney as needed Thank you for this consultation, we will sign off at this time Dr. Michelle Harris I agree with the dictator's note, documented as a scribe by Colleen Cárdenas.
--- NOTE | 2020-06-20 14:40 | P.GSCN ---
History of Present Illness Consult date: 06/20/20 History of present illness: 54-year-old female that is wanted to be secondary to history of right-sided colon cancer requiring right hemicolectomy, is admitted secondary to abdominal pain. She she also is noted to have an. His medical history of seizure disorder, anxiety, panic disorder, chronic anemia and fibromyalgia. She had multiple emergency department visits within the last week with complaints of worsening abdominal pain. She also is complaining of some nausea vomiting and rectal bleeding. She has been admitted for a few days and did undergo an upper endoscopy with push enteroscopy yesterday. There were no acute findings at that time. She also did have a abdominal and pelvic CT performed on June 12 with no acute findings. She states that this abdominal pain has been present for approximately 2 months and comes and goes. She states that the abdominal pain is in all quadrants and mostly in the right upper and right lower quadrant. She states that she has abdominal pain with eating and is scared to eat. His no evidence of leukocytosis. She also has been followed as an outpatient with gastroenterology and did have a small bowel capsule endoscopy performed with results not available as of yet. Currently, she is resting in bed and appears comfortable. Tolerating diet. Patient has taken pictures of her recent bloody bowel movement and did shows picture to me which does appear to show blood in the toilet bowl. 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 BLOOD TRANSFUSIONS FOR LOW HGB. History of Any Multi-Drug Resistant Organisms: MRSA Year Discovered:: 08/10/19 MDRO Source:: URINE Past Surgical History: Appendectomy, Bowel Resection, Cholecystectomy, Ear Surgery, Hysterectomy, Orthopedic Surgery Additional Past Surgical History / Comment(s): frantz knee arthroscopy, hiatal hernia surgery, rt ear surgery to remove middle ear, lymph node biopsy right armpit. loop recorder Past Anesthesia/Blood Transfusion Reactions: Postoperative Nausea & Vomiting (PONV) Additional Past Anesthesia/Blood Transfusion Reaction / Comm: Pt has received bl ood in past without reaction. Past Psychological History: Anxiety, Panic Disorder Smoking Status: Never smoker Past Alcohol Use History: None Reported Past Drug Use History: None Reported - Past Family History Mother Family Medical History: No Reported History Additional Family Medical History / Comment(s): . Father Family Medical History: No Reported History Additional Family Medical History / Comment(s): Father is healthy Medications and Allergies Home Medications Medication Instructions Recorded Confirmed Type lamoTRIgine [LaMICtal] 200 mg PO BID 09/26/18 06/17/20 History Topiramate 100 mg PO QAM 12/19/18 06/17/20 History clonazePAM [KlonoPIN] 1.5 mg PO Q12H 04/20/19 06/17/20 History Topiramate 50 mg PO HS 12/19/19 06/17/20 History Sertraline [Zoloft] 100 mg PO QAM 02/06/20 06/17/20 History Allergies Allergy/AdvReac Type Severity Reaction Status Date / Time erythromycin base Allergy Rash/Hives Verified 06/17/20 23:22 gadobutrol [From Gadavist] Allergy Anaphylaxis Verified 06/17/20 23:22 Gadolinium-Containing Allergy Anaphylaxis Verified 06/17/20 23:22 Contrast Medi iodine Allergy Anaphylaxis Verified 06/17/20 23:22 ketorolac tromethamine Allergy Rash/Hives/ Verified 06/17/20 23:22 [From Toradol] hallucinati ons Penicillins Allergy Anaphylaxis Verified 06/17/20 23:22 azithromycin AdvReac red face Verified 06/17/20 23:22 lorazepam [From Ativan] AdvReac Hallucinati Verified 06/17/20 23:22 ons Surgical - Exam Osteopathic Statement: *. No significant issues noted on an osteopathic structural exam other than those noted in the History and Physical/Consult. Vital Signs Temp Pulse Resp BP Pulse Ox 98.1 F 92 20 111/57 97 06/17/20 21:46 06/17/20 21:46 06/17/20 21:46 06/17/20 21:46 06/17/20 21:46 - General well developed, well nourished, no distress - Eyes PERRL - ENT no hearing loss - Neck trachea midline - Respiratory normal respiratory effort - Abdomen soft, Generalized tenderness to palpation, nondistended, no rebound, no guarding - Psychiatric oriented to time, oriented to person, oriented to place Results - Labs 06/20/20 11:07 06/20/20 11:07 Abnormal Lab Results - Last 24 Hours (Table) 06/20/20 06/20/20 Range/Units 11:07 11:07 RBC 3.52 L (3.80-5.40) m/uL Hgb 7.9 L (11.4-16.0) gm/dL Hct 26.1 L (34.0-46.0) % MCV 74.2 L (80.0-100.0) fL MCH 22.4 L (25.0-35.0) pg MCHC 30.2 L (31.0-37.0) g/dL Chloride 112 H (98-107) mmol/L Microbiology - Last 24 Hours (Table) 06/18/20 02:44 Urine Culture - Final Urine,Voided Diabetes panel 06/20/20 Range/Units 11:07 Sodium 140 (137-145) mmol/L Potassium 3.7 (3.5-5.1) mmol/L Chloride 112 H (98-107) mmol/L Carbon Dioxide 22 (22-30) mmol/L BUN 8 (7-17) mg/dL Creatinine 0.84 (0.52-1.04) mg/dL Glucose 95 (74-99) mg/dL Calcium 9.2 (8.4-10.2) mg/dL Calcium panel 06/20/20 Range/Units 11:07 Calcium 9.2 (8.4-10.2) mg/dL Pituitary panel 06/20/20 Range/Units 11:07 Sodium 140 (137-145) mmol/L Potassium 3.7 (3.5-5.1) mmol/L Chloride 112 H (98-107) mmol/L Carbon Dioxide 22 (22-30) mmol/L BUN 8 (7-17) mg/dL Creatinine 0.84 (0.52-1.04) mg/dL Glucose 95 (74-99) mg/dL Calcium 9.2 (8.4-10.2) mg/dL Adrenal panel 06/20/20 Range/Units 11:07 Sodium 140 (137-145) mmol/L Potassium 3.7 (3.5-5.1) mmol/L Chloride 112 H (98-107) mmol/L Carbon Dioxide 22 (22-30) mmol/L BUN 8 (7-17) mg/dL Creatinine 0.84 (0.52-1.04) mg/dL Glucose 95 (74-99) mg/dL Calcium 9.2 (8.4-10.2) mg/dL Assessment and Plan Plan: 54-year-old female with abdominal pain, nausea, vomiting, rectal bleeding. She is being followed by gastroenterology and did have a push enteroscopy with no acute findings. CT of the abdomen and pelvis was performed 8 days ago with no acute findings as well. I did discuss the case in depth with the patient, as of right now it does not appear that there is a surgical cause of her pain. Workup has been thorough and no acute findings are noted. She has had multiple upper and lower endoscopies over the past 2 years without any significant findings. I did offer the patient to order another CT of the abdomen and pelvis, this time with oral contrast in addition to the IV contrast, however the patient states that she did have a CAT scan 8 days ago and does not feel she requires another one. This is a reasonable thought. At this point, does not appear that there is a surgical cause of her abdominal pain. I would continue with gastroenterology workup.
--- NOTE | 2020-06-20 15:24 | P.PN ---
Subjective Progress Note Date: 06/20/20 This is a 54-year-old female with past medical history of seizure disorder, anxiety, panic disorder, colon cancer with history of colectomy, chronic anemia, fibromyalgia, stress seizures and multiple other medical issues presenting to the ER ( third visit within 1 week) with complaints of worsening abdominal pain 2 months accompanied by nausea ,vomiting and rectal bleeding. States she has been unable to eat and having multiple watery bloody bowel movements, non-itchy. Reports right upper quadrant and mid epigastric, yet complains to pain in all quadrants upon palpation. Denies flank pain, denies suprapubic pain. Denies painful urination or frequency. Completed a small bowel capsule endoscopy about a week ago, results are currently unavailable. Abdominal CT performed on June 12 reported unremarkable. Hemoglobin 7.6 ( 9.8 in 04/24), MCV decreased, 76, platelets 275. Afebrile, normal WBC. Coronavirus not detected. UA reporting moderate mucus, rare bacteria, greater than 182 WBCs, large leukocytes, negative nitrates ,Urine culture pending. On admission, BUN 26, creatinine 1.8, improvin g down to 18/0.92. Alk phos elevated 152. Vital signs stable, maintaining O2 sats in the high 90s on room air. 06/19/2020 NPO, scheduled for EGD. Patient had been receiving Dilaudid IV push throughout the day, became unresponsive last night ,requiring A team to be called. Patient reported to have maintained stable vital signs throughout the event. Responded immediately to Narcan. Dilaudid was discontinued. No further bleeding reported. Hemoglobin 7.1 ,NPO, EGD pending. Denies any chest pain, palpitations or shortness of breath. Afebrile, normal WBC. Pain currently controlled on Ultram. 06/20/2020 completed a push enteroscopy yesterday, reported normal,tolerated procedure well. Patient continues to complain of bright red bleeding with bowel movements, patient does have hemorrhoids, right lower quadrant abdominal pain. Surgery consulted for further evaluation and possible follow-up CT. Vital signs stable. Received IV venifer yesterday. Hemoglobin 7.9. Patient is afraid to eat, tray untouched at bedside. States she lives only on WATER AND TEA. Nutrition discussed. Denies chest pain, palpitations or increasing shortness of breath.VSS. Objective - Vital Signs Vital signs: Vital Signs Temp 98.1 F 06/20/20 07:00 Pulse 66 06/20/20 07:00 Resp 16 06/20/20 07:00 BP 126/73 06/20/20 07:00 Pulse Ox 98 06/20/20 07:00 Intake & Output 06/19/20 06/20/20 06/20/20 18:59 06:59 18:59 Intake Total 600 Balance 600 Weight 77.111 kg Intake: Oral 600 Other: # Voids 1 2 # Bowel Movements 2 3 - Exam PHYSICAL EXAM: VITAL SIGNS: [As above] GENERAL: Sitting upin bed, NAD, teary-eyed HEENT: Conjunctivae normal. eyes normal. NECK: No JVD. No thyroid enlargement. CARDIOVASCULAR: S1, S2 regular. No murmur RESPIRATION: Breath sounds diminished in the bases. ABDOMEN: Soft, nondistended,diffuse tenderness throughout. No guarding. Positive bowel sounds. LEGS: No edema. no swelling. PSYCHIATRY: Alert and oriented X3, mood and affect normal. NERVOUS SYSTEM:Cranial nerves II through XII grossly intact. No focal deficits. Strict and sensation grossly intact Skin: Warm and dry, no rash. - Labs CBC & Chem 7: 06/20/20 11:07 06/20/20 11:07 Labs: Abnormal Lab Results - Last 24 Hours (Table) 06/20/20 06/20/20 Range/Units 11:07 11:07 RBC 3.52 L (3.80-5.40) m/uL Hgb 7.9 L (11.4-16.0) gm/dL Hct 26.1 L (34.0-46.0) % MCV 74.2 L (80.0-100.0) fL MCH 22.4 L (25.0-35.0) pg MCHC 30.2 L (31.0-37.0) g/dL Chloride 112 H (98-107) mmol/L Microbiology - Last 24 Hours (Table) 06/18/20 02:44 Urine Culture - Final Urine,Voided Assessment and Plan Assessment: Diffuse abdominal pain, with watery bloody bowel movements, in a patient with hemorrhoids. push enteroscopy reported normal. history of conversion disorder, Syncope, Vasovagal, suspect Dilaudid-induced. Status post Narcan. Possible acute UTI, clinically doubtful-asymptomatic, culture negative Hypertension History of stress seizures History of colon cancer with colectomy Chronic anemia, suspect iron deficient Fibromyalgia History of syncope Anxiety, panic disorder PONV Hyperlipidemia Plan: Continue on current medication regime ,monitoring and symptomatic tr eatment. Surgery consulted. Discharge on hold, pending surgery evaluation and recommendations. The impression and plan of care has been dictated as directed. : I performed a history and examination of this patient, discussed the same with the dictator. I agree with the dictator's note ,documented as a scribe. Any additional findings or plans will be noted.
--- NOTE | 2020-06-20 18:16 | P.DS ---
Providers Date of admission: 06/17/20 22:37 Expected date of discharge: 06/20/20 Attending physician: Scott Medrano Consults: 06/20/20 13:25 Consult Physician Routine Consulting Provider: Palma Modi Consult Reason/Comments: right lower quad pain Do you want consulting provider notified?: Already Contacted Primary care physician: Scott Medrano [facility] Hospital Course: This is a 54-year-old female with past medical history of seizure disorder, anxiety, panic disorder, colon cancer with history of colectomy, chronic anemia, fibromyalgia, stress seizures and multiple other medical issues presenting to the ER ( third visit within 1 week) with complaints of worsening abdominal pain 2 months accompanied by nausea ,vomiting and rectal bleeding. States she has been unable to eat and having multiple watery bloody bowel movements, non-itchy. Reports right upper quadrant and mid epigastric, yet complains to pain in all quadrants upon palpation. Denies flank pain, denies suprapubic pain. Denies painful urination or frequency. Completed a small bowel capsule endoscopy about a week ago, results are currently unavailable. Abdominal CT performed on June 12 reported unremarkable. Hemoglobin 7.6 ( 9.8 in 04/24), MCV decreased, 76, platelets 275. Afebrile, normal WBC. Coronavirus not detected. UA reporting moderate mucus, rare bacteria, greater than 182 WBCs, large leukocytes, negative nitrates ,Urine culture pending. On admission, BUN 26, creatinine 1.8, improving down to 18/0.92. Alk phos elevated 152. Vital signs stable, maintaining O2 sats in the high 90s on room air. 06/19/2020 NPO, scheduled for EGD. Patient had been receiving Dilaudid IV push throughout the day, became unresponsive last night ,requiring A team to be called. Patient reported to have maintained stable vital signs throughout the event. Responded immediately to Narcan. Dilaudid was discontinued. No further bleeding reported. Hemoglobin 7.1 ,NPO, EGD pending. Denies any chest pain, palpitations or shortness of breath. Afebrile, normal WBC. Pain currently controlled on Ultram. 06/20/2020 completed a push enteroscopy yesterday, reported normal,tolerated procedure well. Patient continues to complain of bright red bleeding with bowel movements, patient does have hemorrhoids, right lower quadrant abdominal pain. Surgery consulted for further evaluation and possible follow-up CT. Vital signs stable. Received IV venifer yesterday. Hemoglobin 7.9. Patient is afraid to eat, tray untouched at bedside. States she lives only on WATER AND TEA. Nutrition discussed. Denies chest pain, palpitations or increasing shortness of breath.VSS. pramod: Dr Modi did see the patient and cleared her for D/C. Patient Condition at Discharge: Good Plan - Discharge Summary Discharge Rx Participant: No New Discharge Prescriptions: New traMADol HCl [Ultram] 100 mg PO Q6HR PRN 7 Days #30 tab PRN Reason: Pain Continue lamoTRIgine [LaMICtal] 200 mg PO BID Topiramate 100 mg PO QAM clonazePAM [KlonoPIN] 1.5 mg PO Q12H Topiramate 50 mg PO HS Sertraline [Zoloft] 100 mg PO QAM Discharge Medication List lamoTRIgine [LaMICtal] 200 mg PO BID 09/26/18 [History] Topiramate 100 mg PO QAM 12/19/18 [History] clonazePAM [KlonoPIN] 1.5 mg PO Q12H 04/20/19 [History] Topiramate 50 mg PO HS 12/19/19 [History] Sertraline [Zoloft] 100 mg PO QAM 02/06/20 [History] traMADol HCl [Ultram] 100 mg PO Q6HR PRN 7 Days #30 tab 06/20/20 [Rx] Follow up Appointment(s)/Referral(s): Scott Medrano MD [Primary Care Provider] - 3 Days Palma Modi DO [Doctor of Osteopathic Medicine] - 1 Week Heath Schilling MD [STAFF PHYSICIAN] - 1 Week Patient Instructions/Handouts: Abdominal Pain (ED) Activity/Diet/Wound Care/Special Instructions: EGD pending Discharge Disposition: HOME SELF-CARE
== END 2020-06-20 17:15 | disposition home or self-care (01) | DRG 379 ==
LOC: EC 21:23 → 6NMEDSUR 22:37 → OBSVTOIN 06-20 13:42 → UNDODISOB 06-20 17:15
PROVIDERS: ADMIT Family Medicine; ATTEND Family Medicine
PROC: 0DJ08ZZ Inspection of Upper Intestinal Tract, Via Natural or Artificial Opening Endoscopic (ICD-10-PCS; principal; 2020-06-19 12:25)
DX: K92.1 Melena (principal); G40.409 Other generalized epilepsy and epileptic syndromes, not intractable, without status epilepticus; Z20.822 Contact with and (suspected) exposure to COVID-19; M79.7 Fibromyalgia; L40.9 Psoriasis, unspecified; G43.909 Migraine, unspecified, not intractable, without status migrainosus; G47.00 Insomnia, unspecified; F41.0 Panic disorder [episodic paroxysmal anxiety]; F41.9 Anxiety disorder, unspecified; R74.8 Abnormal levels of other serum enzymes; E78.5 Hyperlipidemia, unspecified; I10 Essential (primary) hypertension; F44.9 Dissociative and conversion disorder, unspecified; D50.9 Iron deficiency anemia, unspecified; R55 Syncope and collapse; K64.9 Unspecified hemorrhoids; F32.9 Major depressive disorder, single episode, unspecified; Z71.3 Dietary counseling and surveillance; Z79.899 Other long term (current) drug therapy; Z87.01 Personal history of pneumonia (recurrent); Z90.49 Acquired absence of other specified parts of digestive tract; Z90.710 Acquired absence of both cervix and uterus; Z85.038 Personal history of other malignant neoplasm of large intestine; Z98.890 Other specified postprocedural states; Z86.14 Personal history of Methicillin resistant Staphylococcus aureus infection; Z88.0 Allergy status to penicillin; Z88.8 Allergy status to other drugs, medicaments and biological substances; Z88.1 Allergy status to other antibiotic agents; Z91.041 Radiographic dye allergy status
CPT/HCPCS: 36415; 44360; 80048; 80053; 81001; 82150; 83605; 83690; 84484; 85025; 85027; 87086; 87635; 93005; 96361; 96372; 96374; 96375; 96376; 99284; 99285

== ENCOUNTER 2020-08-31 02:13 | Emergency (ER) | payer OTHER ==
[2020-08-31] MEDS ORDERED: SODIUM CHLORIDE 0.9% 1,000 ML IV STA (02:18)
[2020-08-31] MEDS ORDERED: MORPHINE SULFATE 4 MG/ML SYRINGE IV STA (02:18)
--- NOTE | 2020-08-31 02:19 | ED ---
Recheck HPI - General Stated Complaint: Altered Mental Status Time Seen by Provider: 08/31/20 02:16 - Related Data Home Medications Medication Instructions Recorded Confirmed lamoTRIgine [LaMICtal] 200 mg PO BID 09/26/18 07/29/20 Topiramate 100 mg PO QAM 12/19/18 07/29/20 clonazePAM [KlonoPIN] 1.5 mg PO Q12H 04/20/19 07/29/20 Topiramate 50 mg PO HS 12/19/19 07/29/20 Sertraline [Zoloft] 100 mg PO QAM 02/06/20 07/29/20 Allergies Allergy/AdvReac Type Severity Reaction Status Date / Time erythromycin base Allergy Rash/Hives Verified 08/31/20 02:21 gadobutrol [From Gadavist] Allergy Anaphylaxis Verified 08/31/20 02:21 Gadolinium-Containing Allergy Anaphylaxis Verified 08/31/20 02:21 Contrast Medi iodine Allergy Anaphylaxis Verified 08/31/20 02:21 ketorolac tromethamine Allergy Rash/Hives/ Verified 08/31/20 02:21 [From Toradol] hallucinati ons Penicillins Allergy Anaphylaxis Verified 08/31/20 02:21 azithromycin AdvReac red face Verified 08/31/20 02:21 lorazepam [From Ativan] AdvReac Hallucinati Verified 08/31/20 02:21 ons Review of Systems ROS Statement: Those systems with pertinent positive or pertinent negative responses have been documented in the HPI. ROS Other: All systems not noted in ROS Statement are negative. 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 BLOOD TRANSFUSIONS FOR LOW HGB. History of Any Multi-Drug Resistant Organisms: MRSA Date of last positivie culture/infection: 08/10/19 MDRO Source:: URINE Past Surgical History: Appendectomy, Bowel Resection, Cholecystectomy, Ear Surgery, Hysterectomy, Orthopedic Surgery Additional Past Surgical History / Comment(s): frantz knee arthroscopy, hiatal hernia surgery, rt ear surgery to remove middle ear, lymph node biopsy right armpit. loop recorder Past Anesthesia/Blood Transfusion Reactions: Postoperative Nausea & Vomiting (PONV) Additional Past Anesthesia/Blood Transfusion Reaction / Comment(s): Pt has received blood in past without reaction. Smoking Status: Never smoker - Past Family History Mother Family Medical History: No Reported History Additional Family Medical History / Comment(s): . Father Family Medical History: No Reported History Additional Family Medical History / Comment(s): Father is healthy Course Vital Signs 08/31/20 02:16 Temperature 98.0 F Pulse Rate 77 Respiratory 18 Rate Blood Pressure 146/77 Medical Decision Making - Lab Data Result diagrams: 08/31/20 02:27 08/31/20 02:27 Lab Results 08/31/20 08/31/20 08/31/20 Range/Units 02:27 02:27 02:27 WBC 7.1 (3.8-10.6) k/uL RBC 4.24 (3.80-5.40) m/uL Hgb 11.4 (11.4-16.0) gm/dL Hct 34.8 (34.0-46.0) % MCV 82.0 (80.0-100.0) fL MCH 26.9 (25.0-35.0) pg MCHC 32.8 (31.0-37.0) g/dL RDW 21.2 H (11.5-15.5) % Plt Count 250 (150-450) k/uL MPV 7.3 Neutrophils % 61 % Lymphocytes % 31 % Monocytes % 4 % Eosinophils % 2 % Basophils % 1 % Neutrophils # 4.3 (1.3-7.7) k/uL Lymphocytes # 2.2 (1.0-4.8) k/uL Monocytes # 0.3 (0-1.0) k/uL Eosinophils # 0.2 (0-0.7) k/uL Basophils # 0.0 (0-0.2) k/uL Hypochromasia Slight Anisocytosis Moderate Microcytosis Moderate PT 9.6 (9.0-12.0) sec INR 0.9 (<1.2) APTT 22.2 (22.0-30.0) sec Sodium (137-145) mmol/L Potassium (3.5-5.1) mmol/L Chloride (98-107) mmol/L Carbon Dioxide (22-30) mmol/L Anion Gap mmol/L BUN (7-17) mg/dL Creatinine (0.52-1.04) mg/dL Est GFR (CKD-EPI)AfAm (>60 ml/min/1.73 sqM) Est GFR (CKD-EPI)NonAf (>60 ml/min/1.73 sqM) Glucose (74-99) mg/dL Plasma Lactic Acid Williams (0.7-2.0) mmol/L Calcium (8.4-10.2) mg/dL Phosphorus (2.5-4.5) mg/dL Magnesium (1.6-2.3) mg/dL Total Bilirubin (0.2-1.3) mg/dL AST (14-36) U/L ALT (4-34) U/L Alkaline Phosphatase (38-126) U/L Creatine Kinase (30-135) U/L Troponin I (0.000-0.034) ng/mL Total Protein (6.3-8.2) g/dL Albumin (3.5-5.0) g/dL Urine Color Yellow Urine Appearance Cloudy H (Clear) Urine pH 6.5 (5.0-8.0) Ur Specific [place] 1.030 (1.001-1.035) Urine Protein 1+ H (Negative) Urine Glucose (UA) Negative (Negative) Urine Ketones Negative (Negative) Urine Blood Negative (Negative) Urine Nitrite Negative (Negative) Urine Bilirubin Negative (Negative) Urine Urobilinogen 2.0 (<2.0) mg/dL Ur Leukocyte Esterase Large H (Negative) Urine RBC 1 (0-5) /hpf Urine WBC 97 H (0-5) /hpf Ur Squamous Epith Cells 3 (0-4) /hpf Urine Bacteria Rare H (None) /hpf Urine Mucus Many H (None) /hpf 08/31/20 08/31/20 08/31/20 Range/Units 02:27 02:27 02:27 WBC (3.8-10.6) k/uL RBC (3.80-5.40) m/uL Hgb (11.4-16.0) gm/dL Hct (34.0-46.0) % MCV (80.0-100.0) fL MCH (25.0-35.0) pg MCHC (31.0-37.0) g/dL RDW (11.5-15.5) % Plt Count (150-450) k/uL MPV Neutrophils % % Lymphocytes % % Monocytes % % Eosinophils % % Basophils % % Neutrophils # (1.3-7.7) k/uL Lymphocytes # (1.0-4.8) k/uL Monocytes # (0-1.0) k/uL Eosinophils # (0-0.7) k/uL Basophils # (0-0.2) k/uL Hypochromasia Anisocytosis Microcytosis PT (9.0-12.0) sec INR (<1.2) APTT (22.0-30.0) sec Sodium 142 (137-145) mmol/L Potassium 4.2 (3.5-5.1) mmol/L Chloride 112 H (98-107) mmol/L Carbon Dioxide 23 (22-30) mmol/L Anion Gap 7 mmol/L BUN 29 H (7-17) mg/dL Creatinine 0.93 (0.52-1.04) mg/dL Est GFR (CKD-EPI)AfAm 81 (>60 ml/min/1.73 sqM) Est GFR (CKD-EPI)NonAf 70 (>60 ml/min/1.73 sqM) Glucose 108 H (74-99) mg/dL Plasma Lactic Acid Williams 1.2 (0.7-2.0) mmol/L Calcium 9.1 (8.4-10.2) mg/dL Phosphorus 3.6 (2.5-4.5) mg/dL Magnesium 2.0 (1.6-2.3) mg/dL Total Bilirubin 0.3 (0.2-1.3) mg/dL AST 29 (14-36) U/L ALT 13 (4-34) U/L Alkaline Phosphatase 179 H (38-126) U/L Creatine Kinase 96 (30-135) U/L Troponin I <0.012 (0.000-0.034) ng/mL Total Protein 6.8 (6.3-8.2) g/dL Albumin 3.9 (3.5-5.0) g/dL Urine Color Urine Appearance (Clear) Urine pH (5.0-8.0) Ur Specific [place] (1.001-1.035) Urine Protein (Negative) Urine Glucose (UA) (Negative) Urine Ketones (Negative) Urine Blood (Negative) Urine Nitrite (Negative) Urine Bilirubin (Negative) Urine Urobilinogen (<2.0) mg/dL Ur Leukocyte Esterase (Negative) Urine RBC (0-5) /hpf Urine WBC (0-5) /hpf Ur Squamous Epith Cells (0-4) /hpf Urine Bacteria (None) /hpf Urine Mucus (None) /hpf - EKG Data -: EKG Interpreted by Me (EKG is a bifascicular block 89 TX 216 QRS 164 QTC 523) Disposition Clinical Impression: Epigastric pain, Altered mental status Disposition: HOME SELF-CARE Condition: Fair Instructions (If sedation given, give patient instructions): Abdominal Pain (ED), Altered Mental Status (ED) Is patient prescribed a controlled substance at d/c from ED?: No Referrals: Scott Medrano MD [Primary Care Provider] - 1-2 days
[2020-08-31 02:21] VITALS: RESP 18; TEMP 98
[2020-08-31 02:44] LABS: Anisocytosis Moderate; Basophils % (A) 1 %; Eosinophils # (A) 0.2 k/uL (0-0.7); Eosinophils % (A) 2 %; HCT 34.8 % (34.0-46.0); HGB 11.4 gm/dL (11.4-16.0); Hypochromasia Slight; Lymphocytes # (A) 2.2 k/uL (1.0-4.8); Lymphocytes % (A) 31 %; MCH 26.9 pg (25.0-35.0); MCHC 32.8 g/dL (31.0-37.0); Mean Platelet Volume 7.3; Microcytosis Moderate; Monocytes # (A) 0.3 k/uL (0-1.0); Monocytes % (A) 4 %; Neutrophils # (A) 4.3 k/uL (1.3-7.7); Neutrophils % (A) 61 %; Platelet Count 250 k/uL (150-450); RBC 4.24 m/uL (3.80-5.40); RDW 21.2 % (11.5-15.5); WBC 7.1 k/uL (3.8-10.6)
[2020-08-31 02:55] LABS: Albumin 3.9 g/dL (3.5-5.0); Calcium 9.1 mg/dL (8.4-10.2); Phosphorus 3.6 mg/dL (2.5-4.5); Potassium 4.2 mmol/L (3.5-5.1); Total Bilirubin 0.3 mg/dL (0.2-1.3); Total Protein 6.8 g/dL (6.3-8.2)
[2020-08-31 02:59] LABS: INR 0.9 (<1.2); Partial Thromboplastin Time 22.2 sec (22.0-30.0); Prothrombin Time 9.6 sec (9.0-12.0)
[2020-08-31] MEDS ORDERED: HYDROmorphone 1 MG/ML 1 ML SYRINGE IVP STA ×2 (03:28→04:41)
[2020-08-31] MEDS ORDERED: ONDANSETRON 4 MG/2 ML VIAL IVP STA ×2 (03:45→04:41)
[2020-08-31 04:26] LABS: Appearance,Urine Cloudy (Clear); Bacteria,Urine Rare /hpf; Bilirubin,Urine Negative (Negative); Blood,Urine Negative (Negative); Color,Urine Yellow; Glucose,Urine (UA) Negative (Negative); Ketones,Urine Negative (Negative); Leukocyte Esterase,Urine Large (Negative); Mucus,Urine Many /hpf; Nitrite,Urine Negative (Negative); PH, Urine 6.5 (5.0-8.0); Protein,Urine 1+ (Negative); RBC,Urine 1 /hpf (0-5); Squamous Epithelial Cell,Urine 3 /hpf (0-4); WBC,Urine 97 /hpf (0-5)
[2020-08-31 04:55] VITALS: PULSE 61
[2020-08-31 04:59] VITALS: BP 113/64
== END 2020-08-31 05:12 | disposition home or self-care (01) ==
LOC: EC 02:13
DX: R41.82 Altered mental status, unspecified (principal); R10.13 Epigastric pain; G40.909 Epilepsy, unspecified, not intractable, without status epilepticus
CPT/HCPCS: 36415; 93005; 80053; 82550; 83605; 83735; 84100; 84484; 85025; 85610; 85730; 81001; 87086; 99284; 96374; 96376 ×2; 96375 ×2; J2270; J2405; J1170

== ENCOUNTER 2020-09-18 22:39 | Emergency (ER) | payer OTHER ==
[2020-09-18 22:59] VITALS: RESP 18
[2020-09-19] MEDS ORDERED: LIDOCAINE 1% INJ 10MG/ML (20 ML MDV) SQ STA (00:03)
[2020-09-19] MEDS ORDERED: MORPHINE SULFATE 4 MG/ML SYRINGE IV STA (00:03)
--- NOTE | 2020-09-19 00:24 | ED ---
Skin/Abscess/FB HPI - General Chief complaint: Skin/Abscess/Foreign Body Stated complaint: Toe infection Time Seen by Provider: 09/18/20 23:56 Source: patient, RN notes reviewed Mode of arrival: ambulatory Limitations: no limitations - History of Present Illness Initial comments: Patient is a 54-year-old female that presents to emergency department comp laining of left great toe pain. She notes that she kicked her metal bed frame peeled the skin just lateral to the nail back patient was she cut the skin off. She notes that that was 4 days ago. She notes since then told his become increasingly painful and has pus oozing from it. She notes that the pain radiates up to the midfoot. She denied any other issues or complaints at this time. She denied any headache nausea vomiting diarrhea constipation fever fatigue chills. She notes that the left great toe is very tender to the touch. - Related Data Home Medications Medication Instructions Recorded Confirmed lamoTRIgine [LaMICtal] 200 mg PO BID 09/26/18 07/29/20 Topiramate 100 mg PO QAM 12/19/18 07/29/20 clonazePAM [KlonoPIN] 1.5 mg PO Q12H 04/20/19 07/29/20 Topiramate 50 mg PO HS 12/19/19 07/29/20 Sertraline [Zoloft] 100 mg PO QAM 02/06/20 07/29/20 Previous Rx's Medication Instructions Recorded Sulfamethox-Tmp 800-160Mg [Bactrim 1 each PO Q12HR #20 tab 09/19/20 Ds] Allergies Allergy/AdvReac Type Severity Reaction Status Date / Time erythromycin base Allergy Rash/Hives Verified 09/18/20 22:55 gadobutrol [From Gadavist] Allergy Anaphylaxis Verified 09/18/20 22:55 Gadolinium-Containing Allergy Anaphylaxis Verified 09/18/20 22:55 Contrast Medi iodine Allergy Anaphylaxis Verified 09/18/20 22:55 ketorolac tromethamine Allergy Rash/Hives/ Verified 09/18/20 22:55 [From Toradol] hallucinati ons Penicillins Allergy Anaphylaxis Verified 09/18/20 22:55 azithromycin AdvReac red face Verified 09/18/20 22:55 lorazepam [From Ativan] AdvReac Hallucinati Verified 09/18/20 22:55 ons Review of Systems ROS Statement: Those systems with pertinent positive or pertinent negative responses have been documented in the HPI. ROS Other: All systems not noted in ROS Statement are negative. 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 BLOOD TRANSFUSIONS FOR LOW HGB. History of Any Multi-Drug Resistant Organisms: MRSA Date of last positivie culture/infection: 08/10/19 MDRO Source:: URINE Past Surgical History: Appendectomy, Bowel Resection, Cholecystectomy, Ear Surgery, Hysterectomy, Orthopedic Surgery Additional Past Surgical History / Comment(s): frantz knee arthroscopy, hiatal hernia surgery, rt ear surgery to remove middle ear, lymph node biopsy right armpit. loop recorder Past Anesthesia/Blood Transfusion Reactions: Postoperative Nausea & Vomiting (PONV) Additional Past Anesthesia/Blood Transfusion Reaction / Comment(s): Pt has received blood in past without reaction. Past Psychological History: Anxiety, Panic Disorder Smoking Status: Never smoker Past Alcohol Use History: Rare Past Drug Use History: None Reported - Past Family History Mother Family Medical History: No Reported History Additional Family Medical History / Comment(s): . Father Family Medical History: No Reported History Additional Family Medical History / Comment(s): Father is healthy General Exam Limitations: no limitations General appearance: alert, in no apparent distress, obese Head exam: Present: atraumatic, normocephalic, normal inspection Eye exam: Present: normal appearance, PERRL, EOMI. Absent: scleral icterus, conjunctival injection, periorbital swelling Neck exam: Present: normal inspection Respiratory exam: Present: normal lung sounds bilaterally. Absent: respiratory distress, wheezes, rales, rhonchi, stridor Cardiovascular Exam: Present: regular rate, normal rhythm, normal heart sounds. Absent: systolic murmur, diastolic murmur, rubs, gallop, clicks Left Foot/Toe exam: Present: erythema (Of the left great toe). Absent: normal inspection (Pus freely expressed from the lateral nail fold.), full ROM (Condition the pain) Neurological exam: Present: alert, oriented X3 Psychiatric exam: Present: normal affect, normal mood Skin exam: Present: warm, dry, intact, normal color. Absent: rash Course Vital Signs 09/18/20 22:56 Temperature 97.8 F Pulse Rate 74 Respiratory 18 Rate Blood Pressure 135/60 O2 Sat by Pulse 100 Oximetry Procedures - Incision & Drainage Consent Obtained: verbal consent Site: other (Left great toe) Size (cm): 1 Anesthetic Used: lidocaine 1% I&D Cleaning Method: Alcohol Wipe Sterile Field Used?: Yes Scalpel Used: #11 I&D Drainage Obtained: Pus, Blood Culture Obtained?: Yes Patient Tolerated Procedure: well, no complications Medical Decision Making - Medical Decision Making 54-year-old female complaining of left great toe pain/infection. X-ray of the left toes, aerobic wound culture, lidocaine, 4 mg was morphine ordered. X-ray negative for any bone involvement. Patient noted procedure well. Most likely a paronychia after patient got some skin off after kicking a metal bed frame. Case discussed with Dr. Haley, discharge home with follow-up to primary care. - Radiology Data Radiology results: report reviewed, image reviewed Left great toe x-ray: Soft tissue swelling about the distal phalanx of the left great toe. Magnetic resonance imaging is suggested to follow-up to assess for the possibility of early osteomyelitis. Osteoarthritic changes. Disposition Clinical Impression: Paronychia due to ingrown nail Disposition: HOME SELF-CARE Condition: Stable Instructions (If sedation given, give patient instructions): Paronychia (ED) Additional Instructions: Please return to the Emergency Department if symptoms worsen or any other concerns. Follow-up with primary care in the next several days. Taken Biaxin as prescribed until complete. Is patient prescribed a controlled substance at d/c from ED?: No Referrals: Scott Medrano MD [Primary Care Provider] - 1-2 days Time of Disposition: :06
--- NOTE | 2020-09-19 00:37 | XR ---
EXAM: XR Left Toes, 2 or More Views CLINICAL HISTORY: ITS.REASON XR Reason: Left great toe infection TECHNIQUE: Frontal, lateral and oblique views of the toes of the left foot. COMPARISON: No previous study FINDINGS: Bones/joints: Moderate osteoarthritic changes per No acute fracture, dislocation, or destructive process. Soft tissues: There is extensive soft tissue swelling about the distal phalanx of the left great toe. No radiopaque foreign body. IMPRESSION: 1. Soft tissue swelling about the distal phalanx of the left great toe. 2. Magnetic resonance imaging is suggested to follow-up to assess for the possibility of early osteomyelitis, as deemed clinically necessary. 3. Osteoarthritic changes.
[2020-09-19 01:30] VITALS: BP 112/62; PULSE 72; TEMP 98.7
== END 2020-09-19 01:10 | disposition home or self-care (01) ==
LOC: EC 22:39
DX: L03.032 Cellulitis of left toe (principal); L60.0 Ingrowing nail; M79.7 Fibromyalgia; F41.9 Anxiety disorder, unspecified; G40.409 Other generalized epilepsy and epileptic syndromes, not intractable, without status epilepticus; W22.03XA Walked into furniture, initial encounter; Z85.038 Personal history of other malignant neoplasm of large intestine
CPT/HCPCS: 87070; 87205; 73660; 99283; 10060; 96374; 96372; J2270; J2001; 87077; 87186

== ENCOUNTER 2020-09-20 10:28 | Emergency (ER) | payer OTHER ==
[2020-09-20] MEDS ORDERED: CEPHALEXIN 500MG STARTER PACK 4 CAP BTL PO STA (11:28)
--- NOTE | 2020-09-20 11:30 | ED ---
General Adult HPI - General Chief complaint: Skin/Abscess/Foreign Body Stated complaint: revisit - toe infection Time Seen by Provider: 09/20/20 10:41 Source: patient, RN notes reviewed Mode of arrival: ambulatory Limitations: no limitations - History of Present Illness Initial comments: 54-year-old female presents to the emergency room for a chief complaint of left great toe pain. Patient hit her toe against the bed frame about a week ago and had swelling. Patient was seen here at 36 hours or for this and had incision and drainage performed. Purulent material expelled. Put on Bactrim. Patient states the swelling has continued. She has been doing warm soaks.Patient has no other complaints at this time including shortness of breath, chest pain, abdominal pain, nausea or vomiting, headache, or visual changes. - Related Data Home Medications Medication Instructions Recorded Confirmed lamoTRIgine [LaMICtal] 200 mg PO BID 09/26/18 07/29/20 Topiramate 100 mg PO QAM 12/19/18 07/29/20 clonazePAM [KlonoPIN] 1.5 mg PO Q12H 04/20/19 07/29/20 Topiramate 50 mg PO HS 12/19/19 07/29/20 Sertraline [Zoloft] 100 mg PO QAM 02/06/20 07/29/20 Previous Rx's Medication Instructions Recorded Sulfamethox-Tmp 800-160Mg [Bactrim 1 each PO Q12HR #20 tab 09/19/20 Ds] Cephalexin [Keflex] 500 mg PO Q6HR 10 Days #40 cap 09/20/20 Allergies Allergy/AdvReac Type Severity Reaction Status Date / Time erythromycin base Allergy Rash/Hives Verified 09/20/20 10:37 gadobutrol [From Gadavist] Allergy Anaphylaxis Verified 09/20/20 10:37 Gadolinium-Containing Allergy Anaphylaxis Verified 09/20/20 10:37 Contrast Medi iodine Allergy Anaphylaxis Verified 09/20/20 10:37 ketorolac tromethamine Allergy Rash/Hives/ Verified 09/20/20 10:37 [From Toradol] hallucinati ons Penicillins Allergy Anaphylaxis Verified 09/20/20 10:37 azithromycin AdvReac red face Verified 09/20/20 10:37 lorazepam [From Ativan] AdvReac Hallucinati Verified 09/20/20 10:37 ons Review of Systems ROS Statement: Those systems with pertinent positive or pertinent negative responses have been documented in the HPI. ROS Other: All systems not noted in ROS Statement are negative. 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 BLOOD TRANSFUSIONS FOR LOW HGB. History of Any Multi-Drug Resistant Organisms: MRSA Date of last positivie culture/infection: 08/10/19 MDRO Source:: URINE Past Surgical History: Appendectomy, Bowel Resection, Cholecystectomy, Ear Surgery, Hysterectomy, Orthopedic Surgery Additional Past Surgical History / Comment(s): frantz knee arthroscopy, hiatal hernia surgery, rt ear surgery to remove middle ear, lymph node biopsy right armpit. loop recorder Past Anesthesia/Blood Transfusion Reactions: Postoperative Nausea & Vomiting (PONV) Additional Past Anesthesia/Blood Transfusion Reaction / Comment(s): Pt has received blood in past without reaction. Past Psychological History: Anxiety, Panic Disorder Smoking Status: Never smoker Past Alcohol Use History: Rare Past Drug Use History: None Reported - Past Family History Mother Family Medical History: No Reported History Additional Family Medical History / Comment(s): . Father Family Medical History: No Reported History Additional Family Medical History / Comment(s): Father is healthy General Exam Limitations: no limitations General appearance: alert, in no apparent distress Head exam: Present: atraumatic, normocephalic, normal inspection Eye exam: Present: normal appearance, PERRL, EOMI. Absent: scleral icterus, conjunctival injection, periorbital swelling ENT exam: Present: normal exam, mucous membranes moist Neck exam: Present: normal inspection. Absent: tenderness, meningismus, lymphadenopathy Respiratory exam: Present: normal lung sounds bilaterally. Absent: respiratory distress, wheezes, rales, rhonchi, stridor Cardiovascular Exam: Present: regular rate, normal rhythm, normal heart sounds. Absent: systolic murmur, diastolic murmur, rubs, gallop, clicks GI/Abdominal exam: Present: soft, normal bowel sounds. Absent: distended, tenderness, guarding, rebound, rigid Extremities exam: Present: full ROM (Full range of motion of the left great toe.), tenderness (tenderness to the lateral nailbed of the left great toe.), normal capillary refill (Capillary refill less than 2 seconds in the left foot, DP pulse 2+.), other (Mild edema and erythema of the left great toe worse along the lateral nail bed.). Absent: pedal edema, joint swelling, calf tenderness Neurological exam: Present: alert Course Vital Signs 09/20/20 10:32 Temperature 98.3 F Pulse Rate 80 Respiratory 20 Rate Blood Pressure 126/74 O2 Sat by Pulse 99 Oximetry Procedures - Incision & Drainage Consent Obtained: verbal consent Indication: paronychia Site: foot Anesthetic Used: lidocaine 1% Amount (mLs): 4 I&D Cleaning Method: Chloroprep Sterile Field Used?: Yes Scalpel Used: #11 I&D Drainage Obtained: Blood Patient Tolerated Procedure: well, no complications Medical Decision Making - Medical Decision Making 54-year-old female presents for left toe pain. Patient had paronychia drained 36 hours ago and has been on Bactrim however has continued to be red and swollen. I did attempt incision and drainage and however no purulent Nicola expelled. Patient was put on Bactrim. I did review x-ray from 2 days ago which did not show any acute bony process. Patient likely has an overlying cellulitis given she does have some erythema of the great toe however no spreading or streaking redness into the forefoot. We will treat this with Keflex in addition to the Bactrim. She will continue to do warm soapy soaks. I referred her to primary care and podiatry. She will return for any worsening symptoms. Disposition Clinical Impression: Cellulitis Narrative: history of paronychia Disposition: HOME SELF-CARE Condition: Good Instructions (If sedation given, give patient instructions): Paronychia (ED) Additional Instructions: Please take antibiotics as directed. Continue to soak the foot in warm water several times daily. Follow-up with your doctor in one to 2 days. Follow up with podiatry as well. Return to the emergency room for any worsening symptoms. Prescriptions: Cephalexin [Keflex] 500 mg PO Q6HR 10 Days #40 cap Is patient prescribed a controlled substance at d/c from ED?: No Referrals: Scott Medrano MD [Primary Care Provider] - 1-2 days Brandin Toscano DPM [STAFF PHYSICIAN] - 1-2 days Time of Disposition: 11:29
[2020-09-20 11:58] VITALS: BP 126/78; PULSE 76; RESP 16; TEMP 97.4
== END 2020-09-20 12:04 | disposition home or self-care (01) ==
LOC: EC 10:28
DX: L03.032 Cellulitis of left toe (principal); F41.9 Anxiety disorder, unspecified; M79.7 Fibromyalgia; G43.909 Migraine, unspecified, not intractable, without status migrainosus; G40.409 Other generalized epilepsy and epileptic syndromes, not intractable, without status epilepticus; Z85.038 Personal history of other malignant neoplasm of large intestine; Z88.0 Allergy status to penicillin; Z88.1 Allergy status to other antibiotic agents; Z88.8 Allergy status to other drugs, medicaments and biological substances
CPT/HCPCS: 10060; 99283

== ENCOUNTER 2020-09-27 21:59 | Emergency (ER) | payer OTHER ==
[2020-09-27 22:12] VITALS: TEMP 98
[2020-09-27 22:52] LABS: Anisocytosis Slight; Basophils % (A) 0 %; Eosinophils # (A) 0.2 k/uL (0-0.7); Eosinophils % (A) 2 %; HCT 34.3 % (34.0-46.0); HGB 11.2 gm/dL (11.4-16.0); Lymphocytes # (A) 2.8 k/uL (1.0-4.8); Lymphocytes % (A) 34 %; MCH 27.4 pg (25.0-35.0); MCHC 32.7 g/dL (31.0-37.0); MCV 83.6 fL (80.0-100.0); Mean Platelet Volume 7.2; Microcytosis Slight; Monocytes # (A) 0.3 k/uL (0-1.0); Monocytes % (A) 4 %; Neutrophils # (A) 4.6 k/uL (1.3-7.7); Neutrophils % (A) 58 %; Platelet Count 259 k/uL (150-450); RDW 18.6 % (11.5-15.5)
[2020-09-27 23:07] LABS: INR 0.9 (<1.2); Prothrombin Time 9.7 sec (9.0-12.0)
[2020-09-27 23:09] LABS: Albumin 4.1 g/dL (3.5-5.0); Calcium 9.5 mg/dL (8.4-10.2); Potassium 4.2 mmol/L (3.5-5.1); Total Bilirubin 0.1 mg/dL (0.2-1.3); Total Protein 6.8 g/dL (6.3-8.2)
[2020-09-27] MEDS ORDERED: diphenhydrAMINE 50 MG/ML 1 ML VIAL IVP STA (23:15)
[2020-09-27] MEDS ORDERED: DIAZEPAM 5 MG/ML 2 ML INJ IVP STA (23:15)
[2020-09-27] MEDS ORDERED: HYDROmorphone 1 MG/ML 1 ML SYRINGE IVP STA (23:15)
--- NOTE | 2020-09-27 23:15 | ED ---
Chest Pain HPI - General Chief Complaint: Chest Pain Stated Complaint: seizure Time Seen by Provider: 09/27/20 22:43 Source: EMS, RN notes reviewed, old records reviewed Mode of arrival: EMS Limitations: no limitations - History of Present Illness Initial Comments: This is a 54-year-old female DF for evaluation. Patient Dese for evaluation regards to not feeling well chest pain. Patient also admits to severe anxiety, no seizures no other complaints. Patient has no recent travel history or sick contacts. No shortness of breath noted. MD Complaint: chest pain -: hour(s) Onset: during rest Pain Location: substernal Pain Radiation: none Severity: mild Quality: aching Consistency: intermittent Improves With: nothing Worsens With: nothing Anginal Symptoms: nausea Other Symptoms: palpitations - Related Data Home Medications Medication Instructions Recorded Confirmed lamoTRIgine [LaMICtal] 200 mg PO BID 09/26/18 07/29/20 Topiramate 100 mg PO QAM 12/19/18 07/29/20 clonazePAM [KlonoPIN] 1.5 mg PO Q12H 04/20/19 07/29/20 Topiramate 50 mg PO HS 12/19/19 07/29/20 Sertraline [Zoloft] 100 mg PO QAM 02/06/20 07/29/20 Previous Rx's Medication Instructions Recorded Sulfamethox-Tmp 800-160Mg [Bactrim 1 each PO Q12HR #20 tab 09/19/20 Ds] Cephalexin [Keflex] 500 mg PO Q6HR 10 Days #40 cap 09/20/20 Allergies Allergy/AdvReac Type Severity Reaction Status Date / Time erythromycin base Allergy Rash/Hives Verified 09/27/20 22:05 gadobutrol [From Gadavist] Allergy Anaphylaxis Verified 09/27/20 22:05 Gadolinium-Containing Allergy Anaphylaxis Verified 09/27/20 22:05 Contrast Medi iodine Allergy Anaphylaxis Verified 09/27/20 22:05 ketorolac tromethamine Allergy Rash/Hives/ Verified 09/27/20 22:05 [From Toradol] hallucinati ons Penicillins Allergy Anaphylaxis Verified 09/27/20 22:05 azithromycin AdvReac red face Verified 09/27/20 22:05 lorazepam [From Ativan] AdvReac Hallucinati Verified 09/27/20 22:05 ons Review of Systems ROS Statement: Those systems with pertinent positive or pertinent negative responses have been documented in the HPI. ROS Other: All systems not noted in ROS Statement are negative. 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 BLOOD TRANSFUSIONS FOR LOW HGB. History of Any Multi-Drug Resistant Organisms: MRSA Date of last positivie culture/infection: 08/10/19 MDRO Source:: URINE Past Surgical History: Appendectomy, Bowel Resection, Cholecystectomy, Ear Surgery, Hysterectomy, Orthopedic Surgery Additional Past Surgical History / Comment(s): frantz knee arthroscopy, hiatal hernia surgery, rt ear surgery to remove middle ear, lymph node biopsy right armpit. loop recorder Past Anesthesia/Blood Transfusion Reactions: Postoperative Nausea & Vomiting (PONV) Additional Past Anesthesia/Blood Transfusion Reaction / Comment(s): Pt has received blood in past without reaction. Past Psychological History: Anxiety, Panic Disorder Smoking Status: Never smoker Past Alcohol Use History: Rare Past Drug Use History: None Reported - Past Family History Mother Family Medical History: No Reported History Additional Family Medical History / Comment(s): . Father Family Medical History: No Reported History Additional Family Medical History / Comment(s): Father is healthy General Exam Limitations: no limitations General appearance: alert, in no apparent distress Head exam: Present: atraumatic, normocephalic, normal inspection Eye exam: Present: normal appearance, PERRL, EOMI. Absent: scleral icterus, conjunctival injection, periorbital swelling ENT exam: Present: normal exam, mucous membranes moist Neck exam: Present: normal inspection. Absent: tenderness, meningismus, lymphadenopathy Respiratory exam: Present: normal lung sounds bilaterally. Absent: respiratory distress, wheezes, rales, rhonchi, stridor Cardiovascular Exam: Present: regular rate, normal rhythm, normal heart sounds. Absent: systolic murmur, diastolic murmur, rubs, gallop, clicks GI/Abdominal exam: Present: soft, normal bowel sounds. Absent: distended, tenderness, guarding, rebound, rigid Extremities exam: Present: normal inspection, full ROM, normal capillary refill. Absent: tenderness, pedal edema, joint swelling, calf tenderness Back exam: Present: normal inspection Neurological exam: Present: alert, oriented X3, CN II-XII intact Psychiatric exam: Present: normal affect, normal mood Skin exam: Present: warm, dry, intact, normal color. Absent: rash Course Vital Signs 09/27/20 09/27/20 09/28/20 22:05 23:43 01:02 Temperature 98.0 F Pulse Rate 90 75 71 Respiratory 18 18 16 Rate Blood Pressure 124/68 117/71 142/64 O2 Sat by Pulse 96 98 97 Oximetry - Reevaluation(s) Reevaluation #1: Medical record is reviewed Patient has improved symptoms here in the emergency department Patient's in no acute distress Patient informed results and questions answered Chest Pain MDM - MDM 54 female presenting for chest pain today typical different types of pain abdominal pain. Testing is negative here in the ER patient can be discharged home Disposition Clinical Impression: Chest pain, Atypical chest pain Disposition: HOME SELF-CARE Condition: Fair Instructions (If sedation given, give patient instructions): Chest Pain (ED) Is patient prescribed a controlled substance at d/c from ED?: No Referrals: Scott Medrano MD [Primary Care Provider] - 1-2 days
[2020-09-27] MEDS ORDERED: ONDANSETRON 4 MG/2 ML VIAL IVP STA (23:38)
--- NOTE | 2020-09-28 00:28 | XR ---
EXAMINATION TYPE: XR chest 2V DATE OF EXAM: 09/28/2020 COMPARISON: 05/17/2020 HISTORY: Chest pain TECHNIQUE: 2 views FINDINGS: Heart and mediastinum are normal. Lungs are clear. Diaphragm is normal. Bony thorax is inta ct. There are chest leads. IMPRESSION: Normal chest. No change.
[2020-09-28 01:04] VITALS: BP 142/64; PULSE 71; RESP 16
== END 2020-09-28 01:04 | disposition home or self-care (01) ==
LOC: EC 21:59
DX: R07.89 Other chest pain (principal); G40.409 Other generalized epilepsy and epileptic syndromes, not intractable, without status epilepticus; M79.7 Fibromyalgia; F41.9 Anxiety disorder, unspecified; Z88.0 Allergy status to penicillin; Z88.1 Allergy status to other antibiotic agents; Z88.8 Allergy status to other drugs, medicaments and biological substances; Z85.038 Personal history of other malignant neoplasm of large intestine
CPT/HCPCS: 36415; 93005; 80053; 83735; 84484; 85025; 85610; 85730; 71046; 96374; 96375 ×3; 99285; J1200; J3360; J2405; J1170

== ENCOUNTER 2020-10-31 21:45 | Emergency (ER) | payer OTHER ==
[2020-10-31 21:50] VITALS: TEMP 98
[2020-10-31] MEDS ORDERED: HYDROmorphone 1 MG/ML 1 ML SYRINGE IM STA (22:07)
--- NOTE | 2020-10-31 22:16 | ED ---
Lower Extremity Injury HPI - General Chief Complaint: Extremity Injury, Lower Stated Complaint: Leg pain Time Seen by Provider: 10/31/20 21:47 Source: patient, RN notes reviewed, old records reviewed Mode of arrival: ambulatory Limitations: no limitations - History of Present Illness Initial Comments: This is a 54-year-old female DF for evaluation. Patient resents today for evaluation regards to left lower Shorty pain. Patient is well-known to facility for chronic pain issues. Patient states she's concern for DVT of left leg. Otherwise no complaints MD Complaint: leg injury (No injury just pain) -: days(s) Injury: Leg: Left Place: home Severity: moderate Severity scale (1-10): 4 Improves With: nothing Worsens With: nothing Context: other (none) Other Symptoms: other (none) Associated Symptoms: able to partially bear weight Treatments Prior to Arrival: other (none) - Related Data Home Medications Medication Instructions Recorded Confirmed lamoTRIgine [LaMICtal] 200 mg PO BID 09/26/18 07/29/20 Topiramate 100 mg PO QAM 12/19/18 07/29/20 clonazePAM [KlonoPIN] 1.5 mg PO Q12H 04/20/19 07/29/20 Topiramate 50 mg PO HS 12/19/19 07/29/20 Sertraline [Zoloft] 100 mg PO QAM 02/06/20 07/29/20 Previous Rx's Medication Instructions Recorded Sulfamethox-Tmp 800-160Mg [Bactrim 1 each PO Q12HR #20 tab 09/19/20 Ds] Cephalexin [Keflex] 500 mg PO Q6HR 10 Days #40 cap 09/20/20 Allergies Allergy/AdvReac Type Severity Reaction Status Date / Time erythromycin base Allergy Rash/Hives Verified 10/31/20 21:50 gadobutrol [From Gadavist] Allergy Anaphylaxis Verified 10/31/20 21:50 Gadolinium-Containing Allergy Anaphylaxis Verified 10/31/20 21:50 Contrast Medi iodine Allergy Anaphylaxis Verified 10/31/20 21:50 ketorolac tromethamine Allergy Rash/Hives/ Verified 10/31/20 21:50 [From Toradol] hallucinati ons Penicillins Allergy Anaphylaxis Verified 10/31/20 21:50 azithromycin AdvReac red face Verified 10/31/20 21:50 lorazepam [From Ativan] AdvReac Hallucinati Verified 10/31/20 21:50 ons Review of Systems ROS Statement: Those systems with pertinent positive or pertinent negative responses have been documented in the HPI. ROS Other: All systems not noted in ROS Statement are negative. 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 BLOOD TRANSFUSIONS FOR LOW HGB. History of Any Multi-Drug Resistant Organisms: MRSA Date of last positivie culture/infection: 08/10/19 MDRO Source:: URINE Past Surgical History: Appendectomy, Bowel Resection, Cholecystectomy, Ear Surgery, Hysterectomy, Orthopedic Surgery Additional Past Surgical History / Comment(s): frantz knee arthroscopy, hiatal hernia surgery, rt ear surgery to remove middle ear, lymph node biopsy right a rmpit. loop recorder Past Anesthesia/Blood Transfusion Reactions: Postoperative Nausea & Vomiting (PONV) Additional Past Anesthesia/Blood Transfusion Reaction / Comment(s): Pt has received blood in past without reaction. Past Psychological History: Anxiety, Panic Disorder Smoking Status: Never smoker Past Alcohol Use History: Rare Past Drug Use History: None Reported - Past Family History Mother Family Medical History: No Reported History Additional Family Medical History / Comment(s): . Father Family Medical History: No Reported History Additional Family Medical History / Comment(s): Father is healthy General Exam Limitations: no limitations General appearance: alert, in no apparent distress Head exam: Present: atraumatic, normocephalic, normal inspection Eye exam: Present: normal appearance, PERRL, EOMI. Absent: scleral icterus, conjunctival injection, periorbital swelling ENT exam: Present: normal exam, mucous membranes moist Neck exam: Present: normal inspection. Absent: tenderness, meningismus, lymphadenopathy Respiratory exam: Present: normal lung sounds bilaterally. Absent: respiratory distress, wheezes, rales, rhonchi, stridor Cardiovascular Exam: Present: regular rate, normal rhythm, normal heart sounds. Absent: systolic murmur, diastolic murmur, rubs, gallop, clicks GI/Abdominal exam: Present: soft, normal bowel sounds. Absent: distended, tenderness, guarding, rebound, rigid Extremities exam: Present: normal inspection, full ROM, normal capillary refill. Absent: tenderness, pedal edema, joint swelling, calf tenderness Back exam: Present: normal inspection Neurological exam: Present: alert, oriented X3, CN II-XII intact Psychiatric exam: Present: normal affect, normal mood Skin exam: Present: warm, dry, intact, normal color. Absent: rash Course Vital Signs 10/31/20 10/31/20 21:47 23:59 Temperature 98.0 F Pulse Rate 83 70 Respiratory 20 16 Rate Blood Pressure 108/66 119/66 O2 Sat by Pulse 100 98 Oximetry - Reevaluation(s) Reevaluation #1: Medical record is reviewed Patient symptoms are improved here in the ER Patient is in no acute distress Patient informed results questions answered Medical Decision Making - Medical Decision Making 54 female to the ER for evaluation. In regards to left leg pain. No DVT found. X-rays negative patient can be discharged home - Radiology Data Radiology results: report reviewed (Ultrasound left lower extremity negative for DVT x-ray negative for acute disease), image reviewed Disposition Clinical Impression: Left knee pain, Osteoarthritis Disposition: HOME SELF-CARE Condition: Good Instructions (If sedation given, give patient instructions): Osteoarthritis (ED), Knee Pain (ED) Is patient prescribed a controlled substance at d/c from ED?: No Referrals: Scott Medrano MD [Primary Care Provider] - 1-2 days
[2020-10-31] MEDS ORDERED: ONDANSETRON 4 MG TAB PO STA (22:18)
--- NOTE | 2020-10-31 22:34 | XR ---
EXAMINATION TYPE: XR tibia fibula LT DATE OF EXAM: 10/31/2020 COMPARISON: NONE HISTORY: Leg pain TECHNIQUE: 2 views FINDINGS: There is some mild spurring at the knee joint. Ankle mortise is anatomic. There is plantar and Achilles calcaneal spurring. There is some spurring of the anterior malleolus of the ankle. There is mild narrowing of the knee joint spaces. IMPRESSION: Osteoarthritis. No fracture seen.
--- NOTE | 2020-10-31 23:11 | US ---
EXAMINATION TYPE: US venous doppler duplex LE LT DATE OF EXAM: 10/31/2020 10:36 PM COMPARISON: NONE CLINICAL HISTORY: pain. Left leg pain SIDE PERFORMED: Left TECHNIQUE: The lower extremity deep venous system is examined utilizing real time linear array sonog fallon with graded compression, doppler sonography and color-flow sonography. VESSELS IMAGED: Common Femoral Vein Deep Femoral Vein Greater Saphenous Vein * Femoral Vein Popliteal Vein Small Saphenous Vein * Proximal Calf Veins (* superficial vessels) Left Leg: Negative for DVT IMPRESSION: No evidence of deep vein thrombosis in the left leg.
[2020-11-01 00:18] VITALS: BP 119/66; PULSE 70; RESP 16
== END 2020-11-01 | disposition home or self-care (01) ==
LOC: EC 21:45
DX: M17.12 Unilateral primary osteoarthritis, left knee (principal); G40.409 Other generalized epilepsy and epileptic syndromes, not intractable, without status epilepticus; F41.9 Anxiety disorder, unspecified; M79.7 Fibromyalgia; Z79.899 Other long term (current) drug therapy; Z88.0 Allergy status to penicillin; Z88.1 Allergy status to other antibiotic agents; Z88.8 Allergy status to other drugs, medicaments and biological substances; Z85.038 Personal history of other malignant neoplasm of large intestine; Z90.49 Acquired absence of other specified parts of digestive tract
CPT/HCPCS: 73590; 93971; 96372; 99284; J1170

== ENCOUNTER 2020-11-05 19:24 | Emergency (ER) | payer OTHER ==
--- NOTE | 2020-11-05 21:51 | ED ---
URI HPI - General Chief Complaint: Upper Respiratory Infection Stated Complaint: +COVID Time Seen by Provider: 11/05/20 21:01 Source: patient Mode of arrival: wheelchair Limitations: no limitations - History of Present Illness Initial Comments: This patient is a 54-year-old woman who presents with complaint of upper respiratory symptoms and cough. She states that these it started on . When the symptoms continued she saw her physician today. She had a carotid by her status that was positive. She was somewhat skeptical and she therefore went to [facility] where she was seen and had a confirmatory positive test. She does bring paper documentation of this. The patient states she did not have coronavirus vaccination. Patient denies dyspnea, at rest or with exertion. MD Complaint: cough, rhinorrhea, nasal congestion Onset/Timin -: days(s) Severity: moderate Consistency: constant Improves With: nothing Worsens With: nothing Associated Symptoms: fever, chills, headache, cough Treatments Prior to Arrival: none - Related Data Home Medications Medication Instructions Recorded Confirmed lamoTRIgine [LaMICtal] 200 mg PO BID 09/26/18 07/29/20 Topiramate 100 mg PO QAM 12/19/18 07/29/20 clonazePAM [KlonoPIN] 1.5 mg PO Q12H 04/20/19 07/29/20 Topiramate 50 mg PO HS 12/19/19 07/29/20 Sertraline [Zoloft] 100 mg PO QAM 02/06/20 07/29/20 Previous Rx's Medication Instructions Recorded Sulfamethox-Tmp 800-160Mg [Bactrim 1 each PO Q12HR #20 tab 09/19/20 Ds] Cephalexin [Keflex] 500 mg PO Q6HR 10 Days #40 cap 09/20/20 Allergies Allergy/AdvReac Type Severity Reaction Status Date / Time erythromycin base Allergy Rash/Hives Verified 11/05/20 19:52 gadobutrol [From Gadavist] Allergy Anaphylaxis Verified 11/05/20 19:52 Gadolinium-Containing Allergy Anaphylaxis Verified 11/05/20 19:52 Contrast Medi iodine Allergy Anaphylaxis Verified 11/05/20 19:52 ketorolac tromethamine Allergy Rash/Hives/ Verified 11/05/20 19:52 [From Toradol] hallucinati ons Penicillins Allergy Anaphylaxis Verified 11/05/20 19:52 azithromycin AdvReac red face Verified 11/05/20 19:52 lorazepam [From Ativan] AdvReac Hallucinati Verified 11/05/20 19:52 ons Review of Systems ROS Statement: Those systems with pertinent positive or pertinent negative responses have been documented in the HPI. ROS Other: All systems not noted in ROS Statement are negative. Constitutional: Reports: fever, chills. Denies: weakness Eyes: Denies: vision change ENT: Reports: congestion. Denies: ear pain Respiratory: Reports: cough. Denies: dyspnea, wheezes, hemoptysis Cardiovascular: Denies: chest pain, palpitations, syncope Gastrointestinal: Denies: abdominal pain, vomiting, diarrhea Genitourinary: Denies: dysuria, frequency Musculoskeletal: Reports: myalgia Skin: Denies: rash Neurological: Reports: headache. 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 BLOOD TRANSFUSIONS FOR LOW HGB. History of Any Multi-Drug Resistant Organisms: MRSA Date of last positivie culture/infection: 08/10/19 MDRO Source:: URINE Past Surgical History: Appendectomy, Bowel Resection, Cholecystectomy, Ear Surgery, Hysterectomy, Orthopedic Surgery Additional Past Surgical History / Comment(s): frantz knee arthroscopy, hiatal hernia surgery, rt ear surgery to remove middle ear, lymph node biopsy right armpit. loop recorder Past Anesthesia/Blood Transfusion Reactions: Postoperative Nausea & Vomiting (PONV) Additional Past Anesthesia/Blood Transfusion Reaction / Comment(s): Pt has received blood in past without reaction. Past Psychological History: Anxiety, Panic Disorder Smoking Status: Never smoker Past Alcohol Use History: Rare Past Drug Use History: None Reported - Past Family History Mother Family Medical History: No Reported History Additional Family Medical History / Comment(s): . Father Family Medical History: No Reported History Additional Family Medical History / Comment(s): Father is healthy General Exam Limitations: no limitations Course Vital Signs 11/05/20 19:52 Temperature 99.4 F Pulse Rate 95 Respiratory 20 Rate Blood Pressure 121/75 O2 Sat by Pulse 98 Oximetry Medical Decision Making - Medical Decision Making After discussion of risks, benefits, indications, patient does request to have the antibody infusion rate Disposition Clinical Impression: Coronavirus infection Disposition: HOME SELF-CARE Condition: Good Instructions (If sedation given, give patient instructions): Coronavirus Disease 2019 (COVID-19) Is patient prescribed a controlled substance at d/c from ED?: No Referrals: Scott Medrano MD [Primary Care Provider] - 1-2 days
[2020-11-05] MEDS ORDERED: [UNRECOGNIZED DRUG - OTHER] IVPB ONE (22:30)
[2020-11-06 00:43] VITALS: BP 121/65; PULSE 94; RESP 19; TEMP 99.7
== END 2020-11-06 00:38 | disposition home or self-care (01) ==
LOC: EC 19:24
DX: U07.1 COVID-19 (principal); G40.909 Epilepsy, unspecified, not intractable, without status epilepticus; G43.909 Migraine, unspecified, not intractable, without status migrainosus; M79.7 Fibromyalgia; F41.9 Anxiety disorder, unspecified; Z88.0 Allergy status to penicillin
CPT/HCPCS: 99284; 96365; Q0243

== ENCOUNTER → 2020-11-21 | Outpatient (CLI) | payer OTHER ==
[2020-11-21 12:15] LABS: Basophils % (A) 0 %; Eosinophils # (A) 0.2 k/uL (0-0.7); Eosinophils % (A) 2 %; HCT 36.3 % (34.0-46.0); HGB 11.4 gm/dL (11.4-16.0); Hypochromasia Slight; Lymphocytes % (A) 27 %; MCH 28.4 pg (25.0-35.0); MCHC 31.5 g/dL (31.0-37.0); Monocytes # (A) 0.2 k/uL (0-1.0); Monocytes % (A) 3 %; Neutrophils # (A) 4.7 k/uL (1.3-7.7); Neutrophils % (A) 66 %; Platelet Count 288 k/uL (150-450); RBC 4.02 m/uL (3.80-5.40); RDW 14.5 % (11.5-15.5); WBC 7.1 k/uL (3.8-10.6)
[2020-11-21 12:19] LABS: MCV 90.4 fL (80.0-100.0)
[2020-11-21 12:25] LABS: African American GFR (CKD) >90 (>60 ml/min/1.73 sqM); Anion Gap 5 mmol/L; Blood Urea Nitrogen 23 mg/dL (7-17); Calcium 9.8 mg/dL (8.4-10.2); Carbon Dioxide 28 mmol/L (22-30); Chloride 110 mmol/L (98-107); Glucose 99 mg/dL (74-99); Non-African American GFR(CKD) 79 (>60 ml/min/1.73 sqM); Potassium 5.1 mmol/L (3.5-5.1); Sodium 143 mmol/L (137-145)
[2020-11-21 19:28] LABS: % Iron Saturation 7.79 (12.00-45.00); Iron 25 ug/dL (50-170); Total Iron Binding Capacity 321 ug/dL (228-460)
[2020-11-21 19:31] LABS: Ferritin 26.3 ng/mL (10.0-291.0)
== END | disposition home or self-care (01) ==
LOC: LABWHC1 10:52
PROVIDERS: ATTEND Family Medicine
DX: D50.8 Other iron deficiency anemias (principal); K92.1 Melena; R10.30 Lower abdominal pain, unspecified
CPT/HCPCS: 36415; 80048; 82728; 83540; 83550; 85025

== ENCOUNTER 2021-01-13 13:32 | Emergency (ER) | payer OTHER ==
[2021-01-13 13:58] VITALS: BP 111/59; PULSE 78; RESP 18; TEMP 98.2
[2021-01-13] MEDS ORDERED: SODIUM CHLORIDE 0.9% 1,000 ML IV STA (15:49)
--- NOTE | 2021-01-13 15:52 | ED ---
General Adult HPI - General Chief complaint: Recheck/Abnormal Lab/Rx Stated complaint: Incision on ABD infected Time Seen by Provider: 01/13/21 15:12 Source: patient Mode of arrival: ambulatory Limitations: no limitations - History of Present Illness Initial comments: 55-year-old female with a past medical history of colon cancer, fibromyalgia, pneumonia, seizure disorder, migraines presents to the emergency room for a chief complaint of abdominal wound infection. Patient reports that she had surgery on January 01 at [facility] in [place]. Patient had a laparoscopic ileocolectomy performed secondary to a colonic mass of the descending colon. States she was discharged 3 days ago. Patient states over the past 2 days it has looked red and then more painful. Today it started draining. Patient saw her primary care doctor who said it was infected and she needed to come to the emergency room. Patient has not contacted her surgeon. She has not had fevers.Patient has no other complaints at this time including shortness of breath, chest pain, nausea or vomiting, headache, or visual changes. - Related Data Home Medications Medication Instructions Recorded Confirmed lamoTRIgine [LaMICtal] 200 mg PO BID 09/26/18 07/29/20 Topiramate 100 mg PO QAM 12/19/18 07/29/20 clonazePAM [KlonoPIN] 1.5 mg PO Q12H 04/20/19 07/29/20 Topiramate 50 mg PO HS 12/19/19 07/29/20 Sertraline [Zoloft] 100 mg PO QAM 02/06/20 07/29/20 Previous Rx's Medication Instructions Recorded Sulfamethox-Tmp 800-160Mg [Bactrim 1 each PO Q12HR #20 tab 09/19/20 Ds] Cephalexin [Keflex] 500 mg PO Q6HR 10 Days #40 cap 09/20/20 Allergies Allergy/AdvReac Type Severity Reaction Status Date / Time erythromycin base Allergy Rash/Hives Verified 01/13/21 13:58 gadobutrol [From Gadavist] Allergy Anaphylaxis Verified 01/13/21 13:58 Gadolinium-Containing Allergy Anaphylaxis Verified 01/13/21 13:58 Contrast Medi iodine Allergy Anaphylaxis Verified 01/13/21 13:58 ketorolac tromethamine Allergy Rash/Hives/ Verified 01/13/21 13:58 [From Toradol] hallucinati ons Penicillins Allergy Anaphylaxis Verified 01/13/21 13:58 azithromycin AdvReac red face Verified 01/13/21 13:58 lorazepam [From Ativan] AdvReac Hallucinati Verified 01/13/21 13:58 ons Review of Systems ROS Statement: Those systems with pertinent positive or pertinent negative responses have been documented in the HPI. ROS Other: All systems not noted in ROS Statement are negative. 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 BLOOD TRANSFUSIONS FOR LOW HGB. History of Any Multi-Drug Resistant Organisms: MRSA Date of last positivie culture/infection: 08/10/19 MDRO Source:: URINE Past Surgical History: Appendectomy, Bowel Resection, Cholecystectomy, Ear Surgery, Hysterectomy, Orthopedic Surgery Additional Past Surgical History / Comment(s): frantz knee arthroscopy, hiatal hernia surgery, rt ear surgery to remove middle ear, lymph node biopsy right armpit. loop recorder Past Anesthesia/Blood Transfusion Reactions: Postoperative Nausea & Vomiting (PONV) Additional Past Anesthesia/Blood Transfusion Reaction / Comment(s): Pt has received blood in past without reaction. Past Psychological History: Anxiety, Panic Disorder Smoking Status: Never smoker Past Alcohol Use History: Rare Past Drug Use History: None Reported - Past Family History Mother Family Medical History: No Reported History Additional Family Medical History / Comment(s): . Father Family Medical History: No Reported History Additional Family Medical History / Comment(s): Father is healthy General Exam Limitations: no limitations General appearance: alert, in no apparent distress Head exam: Present: atraumatic Eye exam: Present: normal appearance, PERRL, EOMI. Absent: scleral icterus, conjunctival injection ENT exam: Present: normal exam, mucous membranes moist Neck exam: Present: normal inspection, full ROM. Absent: tenderness Respiratory exam: Present: normal lung sounds bilaterally. Absent: respiratory distress, wheezes Cardiovascular Exam: Present: regular rate, normal rhythm, normal heart sounds GI/Abdominal exam: Present: soft, normal bowel sounds, other (incision site appears erythematous and indurated with purulent drainage noted.). Absent: distended, tenderness Course Vital Signs 01/13/21 13:53 Temperature 98.2 F Pulse Rate 78 Respiratory 18 Rate Blood Pressure 111/59 O2 Sat by Pulse 98 Oximetry Medical Decision Making - Medical Decision Making Patient presented for possible surgical wound infection from January 01. I evaluated patient and wound did appear to be likely infected. There was erythema and induration with purulent discharge. I therefore recommended we start labs on patient and obtain a CAT scan to rule out abscess. Patient initially agreed with this however called me back to bedside and stated they wanted me to speak with her surgeon first at [facility]. I explained that generally we start a workup and get results before calling a surgeon however patient was concerned about the cost of this and wanted affirmation from the surgeon that this was necessary. Refused starting care again. Therefore I did page surgeon and was waiting on the return call. Patient found me and stated they were leaving. States that they feel they would be better off going to [facility] because someone had told them that she likely would need to continue her care there and he would rather go to the ER there than start workup here. I did again explain that we can treat her here and get some information and speak with the surgeon to see if a transfer is necessary but she again refused any type of treatment at this facility. Disposition Clinical Impression: Post-operative complication Disposition: Left Against Medical Advice Is patient prescribed a controlled substance at d/c from ED?: No Referrals: Scott Medrano MD [Primary Care Provider] - 1-2 days Time of Disposition: 16:43
== END 2021-01-13 17:01 | disposition left against medical advice (07) ==
LOC: EC 13:32
DX: T81.49XA Infection following a procedure, other surgical site, initial encounter (principal); F41.9 Anxiety disorder, unspecified; Z88.0 Allergy status to penicillin; Z88.1 Allergy status to other antibiotic agents; Z88.5 Allergy status to narcotic agent; Z85.038 Personal history of other malignant neoplasm of large intestine; Z90.49 Acquired absence of other specified parts of digestive tract; Z90.710 Acquired absence of both cervix and uterus; X58.XXXA Exposure to other specified factors, initial encounter
CPT/HCPCS: 99283

== ENCOUNTER 2021-02-09 20:56 | Emergency (ER) | payer OTHER ==
[2021-02-09 22:16] VITALS: RESP 18
[2021-02-09 22:17] LABS: Glucose,Whole Blood 129 mg/dL (75-99)
[2021-02-09] MEDS ORDERED: SODIUM CHLORIDE 0.9% 500 ML 500 ML IV STA (22:34)
[2021-02-09] MEDS ORDERED: diphenhydrAMINE 50 MG/ML 1 ML VIAL IVP STA (22:37)
[2021-02-09] MEDS ORDERED: METOCLOPRAMIDE 5 MG/ML 2 ML VIAL IVP STA (22:37)
--- NOTE | 2021-02-09 22:43 | ED ---
General Adult HPI - General Chief complaint: Allergic Reaction Stated complaint: Poss Allergic Reaction to Chemo Time Seen by Provider: 02/09/21 22:32 Source: patient, family, RN notes reviewed Mode of arrival: ambulatory Limitations: no limitations - History of Present Illness Initial comments: 55-year-old female, alert and oriented 4, complains of frontal, occipital and parietal headache that started at 5:30 this afternoon. Patient states that she started her IV chemotherapy today at 1:30 and her headache has been getting worse since. She has history of colon cancer and that's why she is getting chemotherapy. Her surgery was done at [facility] on 01/01/2021. Patient denies any fevers or nausea and vomiting. She states that she did have diarrhea today watery in nature. She states that the headache is so severe that she had dizziness and a syncopal episode today. She did call her doctor who told her to come to the emergency room. She called her mother and had her bring her to the emergency room because she did not want 911. She does state it feels like a tight band around her head. -: hour(s) (5) Location: head (Frontal occipital and parietal) Severity scale (1-10): 10 Quality: aching (band-like) Consistency: constant Improves with: none Worsens with: none Associated Symptoms: syncope, other (Dizziness) Treatments Prior to Arrival: none - Related Data Home Medications Medication Instructions Recorded Confirmed lamoTRIgine [LaMICtal] 200 mg PO BID 09/26/18 02/09/21 Topiramate 100 mg PO DAILY 12/19/18 02/09/21 clonazePAM [KlonoPIN] 1 mg PO TID 04/20/19 02/09/21 Topiramate 50 mg PO HS 12/19/19 02/09/21 Lidocaine-Prilocaine Cream [Emla 1 applic TOPICAL DIRECTED PRN 02/09/21 02/09/21 Cream 2.5%/2.5%] Omeprazole 20 mg PO BID 02/09/21 02/09/21 Sertraline [Zoloft] 100 mg PO DAILY 02/09/21 02/09/21 ondansetron HCL [Zofran] 8 mg PO Q8H PRN 02/09/21 02/09/21 oxyCODONE-APAP 5-325MG [Percocet 1 tab PO Q8H PRN 02/09/21 02/09/21 5-325 mg] Allergies Allergy/AdvReac Type Severity Reaction Status Date / Time erythromycin base Allergy Rash/Hives Verified 02/09/21 23:23 gadobutrol [From Gadavist] Allergy Anaphylaxis Verified 02/09/21 23:23 Gadolinium-Containing Allergy Anaphylaxis Verified 02/09/21 23:23 Contrast Medi iodine Allergy Anaphylaxis Verified 02/09/21 23:23 ketorolac tromethamine Allergy Rash/Hives/ Verified 02/09/21 23:23 [From Toradol] hallucinati ons Penicillins Allergy Anaphylaxis Verified 02/09/21 23:23 azithromycin AdvReac red face Verified 02/09/21 23:23 lorazepam [From Ativan] AdvReac Hallucinati Verified 02/09/21 23:23 ons Review of Systems ROS Statement: Those systems with pertinent positive or pertinent negative responses have been documented in the HPI. ROS Other: All systems not noted in ROS Statement are negative. 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 BLOOD TRANSFUSIONS FOR LOW HGB. History of Any Multi-Drug Resistant Organisms: MRSA Date of last positivie culture/infection: 08/10/19 MDRO Source:: URINE Past Surgical History: Appendectomy, Bowel Resection, Cholecystectomy, Ear Surgery, Hysterectomy, Orthopedic Surgery Additional Past Surgical History / Comment(s): frantz knee arthroscopy, hiatal hernia surgery, rt ear surgery to remove middle ear, lymph node biopsy right armpit. loop recorder Past Anesthesia/Blood Transfusion Reactions: Postoperative Nausea & Vomiting (PONV) Additional Past Anesthesia/Blood Transfusion Reaction / Comment(s): Pt has received blood in past without reaction. Past Psychological History: Anxiety, Panic Disorder Smoking Status: Never smoker Past Alcohol Use History: Rare Past Drug Use History: None Reported - Past Family History Mother Family Medical History: No Reported History Additional Family Medical History / Comment(s): . Father Family Medical History: No Reported History Additional Family Medical History / Comment(s): Father is healthy General Exam Limitations: no limitations General appearance: alert, in no apparent distress Head exam: Present: atraumatic, normocephalic, normal inspection Eye exam: Present: normal appearance, PERRL, EOMI. Absent: scleral icterus, conjunctival injection, nystagmus, periorbital swelling Pupils: Present: normal accommodation, miosis ENT exam: Present: normal exam, mucous membranes moist Neck exam: Present: normal inspection, full ROM. Absent: meningismus, lymphadenopathy Respiratory exam: Present: normal lung sounds bilaterally. Absent: respiratory distress, wheezes, rales, rhonchi, stridor, chest wall tenderness, accessory muscle use Cardiovascular Exam: Present: regular rate, normal rhythm, normal heart sounds. Absent: systolic murmur, diastolic murmur, rubs, gallop, clicks GI/Abdominal exam: Present: soft, tenderness (Postsurgical abdomen dressings are dry and intact) Extremities exam: Present: normal inspection, full ROM, normal capillary refill. Absent: tenderness, pedal edema, joint swelling, calf tenderness Expanded Back exam: Negative Straight Leg Raising: Left, Right Neurological exam: Present: alert, oriented X3 Psychiatric exam: Present: normal affect, normal mood Skin exam: Present: warm, dry, intact, normal color. Absent: rash, cyanosis, diaphoretic, erythema Course Vital Signs 02/09/21 02/09/21 02/09/21 21:45 22:11 23:05 Temperature 98.7 F Pulse Rate 76 72 70 Respiratory 20 18 18 Rate Blood Pressure 113/65 125/59 127/69 O2 Sat by Pulse 98 99 98 Oximetry - Reevaluation(s) Reevaluation #1: 02/09/21 23:54 Patient is asleep on the cart. Mother states that she seems to be resting well. Heart rate 63 with no ectopy on the monitor. Time: 23:54 EKG Findings - EKG Results: EKG: sinus rhythm (Ventricular rate 73, sinus rhythm, pressure 80 block with MD interval of 0.226, QRS 0.166, QTC 0.515), not changed from: (09/27/20) Medical Decision Making - Medical Decision Making Patient has a history of migraines and syncope. Her vital signs are stable. She is alert and oriented 4, she has no focal neurological deficits. She denies any head trauma. She has no memingismus. She has been afebrile and denies any nausea or vomiting. She denies any visual changes. She is not on any anticoagulation. She was given Reglan and Solu-Medrol and IV fluids. CT of her brain shows no acute intracranial abnormality. There is deformity of the right mastoid sinus consistent with surgery. Patient's mother states that she d id have eustachian tube surgery on the right side when she was 18 years old. Chest x-ray shows normal chest with clear costophrenic angles. Patient's mother does state that the patient has migraine history. This is likely tension headache brought on by the increased stress of starting chemotherapy today. Patient's mother states that she really did not want to chemotherapy which may have contributed to her stress. Patient states that she did have syncopal episode today. She does have a history of syncope. There is no evidence of EKG changes. Troponin is negative at 0.012. Electrolytes are unremarkable. There is no evidence of anemia and leukocytosis. No suspicion of this being cardiac in nature. Patient's mother is at the bedside and states that she will take the patient home tonight to stay with her so she is not alone. She'll be directed to follow up with her primary care doctor and return with any new or worsening symptoms. Case discussed with Dr. Piper - Lab Data Result diagrams: 02/09/21 23:04 02/09/21 23:04 Lab Results 02/09/21 02/09/21 02/09/21 Range/Units 22:13 23:04 23:04 WBC 7.1 (3.8-10.6) k/uL RBC 3.95 (3.80-5.40) m/uL Hgb 10.7 L (11.4-16.0) gm/dL Hct 34.7 (34.0-46.0) % MCV 87.9 (80.0-100.0) fL MCH 27.1 (25.0-35.0) pg MCHC 30.9 L (31.0-37.0) g/dL RDW 14.3 (11.5-15.5) % Plt Count 280 (150-450) k/uL MPV 8.1 Neutrophils % 85 % Lymphocytes % 12 % Monocytes % 2 % Eosinophils % 0 % Basophils % 0 % Neutrophils # 6.1 (1.3-7.7) k/uL Lymphocytes # 0.9 L (1.0-4.8) k/uL Monocytes # 0.1 (0-1.0) k/uL Eosinophils # 0.0 (0-0.7) k/uL Basophils # 0.0 (0-0.2) k/uL Hypochromasia Slight PT 9.7 (9.0-12.0) sec INR 0.9 (<1.2) APTT 28.8 (22.0-30.0) sec Sodium (137-145) mmol/L Potassium (3.5-5.1) mmol/L Chloride (98-107) mmol/L Carbon Dioxide (22-30) mmol/L Anion Gap mmol/L BUN (7-17) mg/dL Creatinine (0.52-1.04) mg/dL Est GFR (CKD-EPI)AfAm (>60 ml/min/1.73 sqM) Est GFR (CKD-EPI)NonAf (>60 ml/min/1.73 sqM) Glucose (74-99) mg/dL POC Glucose (mg/dL) 129 H (75-99) mg/dL POC Glu Associate Relations Specialist ID Tiburcio, [place] Calcium (8.4-10.2) mg/dL Magnesium (1.6-2.3) mg/dL Total Bilirubin (0.2-1.3) mg/dL AST (14-36) U/L ALT (4-34) U/L Alkaline Phosphatase (38-126) U/L Troponin I (0.000-0.034) ng/mL Total Protein (6.3-8.2) g/dL Albumin (3.5-5.0) g/dL 02/09/21 02/09/21 Range/Units 23:04 23:04 WBC (3.8-10.6) k/uL RBC (3.80-5.40) m/uL Hgb (11.4-16.0) gm/dL Hct (34.0-46.0) % MCV (80.0-100.0) fL MCH (25.0-35.0) pg MCHC (31.0-37.0) g/dL RDW (11.5-15.5) % Plt Count (150-450) k/uL MPV Neutrophils % % Lymphocytes % % Monocytes % % Eosinophils % % Basophils % % Neutrophils # (1.3-7.7) k/uL Lymphocytes # (1.0-4.8) k/uL Monocytes # (0-1.0) k/uL Eosinophils # (0-0.7) k/uL Basophils # (0-0.2) k/uL Hypochromasia PT (9.0-12.0) sec INR (<1.2) APTT (22.0-30.0) sec Sodium 141 (137-145) mmol/L Potassium 4.1 (3.5-5.1) mmol/L Chloride 111 H (98-107) mmol/L Carbon Dioxide 19 L (22-30) mmol/L Anion Gap 11 mmol/L BUN 15 (7-17) mg/dL Creatinine 0.67 (0.52-1.04) mg/dL Est GFR (CKD-EPI)AfAm >90 (>60 ml/min/1.73 sqM) Est GFR (CKD-EPI)NonAf >90 (>60 ml/min/1.73 sqM) Glucose 132 H (74-99) mg/dL POC Glucose (mg/dL) (75-99) mg/dL POC Glu Associate Relations Specialist ID Calcium 9.7 (8.4-10.2) mg/dL Magnesium 2.2 (1.6-2.3) mg/dL Total Bilirubin 0.2 (0.2-1.3) mg/dL AST 21 (14-36) U/L ALT 12 (4-34) U/L Alkaline Phosphatase 139 H (38-126) U/L Troponin I <0.012 (0.000-0.034) ng/mL Total Protein 7.4 (6.3-8.2) g/dL Albumin 4.2 (3.5-5.0) g/dL Disposition Clinical Impression: Headache, Syncope Disposition: HOME SELF-CARE Condition: Good Additional Instructions: Continue your previously prescribed medications. He can take Tylenol for pain if and also use Benadryl as needed for headache relief. Follow-up with your primary care doctor this week. Return if any new or worsening symptoms. Is patient prescribed a controlled substance at d/c from ED?: No Referrals: Scott Medrano MD [Primary Care Provider] - 1-2 days Time of Disposition: 00:06
[2021-02-09] MEDS ORDERED: methylPREDNISolone SOD SUCCI 125 MG/2 ML VIAL IV STA (22:56)
[2021-02-09 23:26] LABS: Basophils % (A) 0 %; Eosinophils % (A) 0 %; HCT 34.7 % (34.0-46.0); HGB 10.7 gm/dL (11.4-16.0); Hypochromasia Slight; Lymphocytes # (A) 0.9 k/uL (1.0-4.8); Lymphocytes % (A) 12 %; MCH 27.1 pg (25.0-35.0); MCHC 30.9 g/dL (31.0-37.0); MCV 87.9 fL (80.0-100.0); Mean Platelet Volume 8.1; Monocytes # (A) 0.1 k/uL (0-1.0); Monocytes % (A) 2 %; Neutrophils # (A) 6.1 k/uL (1.3-7.7); Neutrophils % (A) 85 %; Platelet Count 280 k/uL (150-450); RBC 3.95 m/uL (3.80-5.40); RDW 14.3 % (11.5-15.5); WBC 7.1 k/uL (3.8-10.6)
--- NOTE | 2021-02-09 23:32 | CT ---
EXAMINATION TYPE: CT brain wo con DATE OF EXAM: 02/09/2021 COMPARISON: 05/17/2020 HISTORY: TRAN CT DLP: 1052.4 mGycm Automated exposure control for dose reduction was used. The ventricles and sulci appear normal. There is no mass effect nor midline shift. There is no sign o f intracranial hemorrhage. The calvarium is intact. There is no evidence of cerebral edema. There is opacification of the right external auditory canal. There is some deformity of the right mastoid sinu s consistent with surgery. IMPRESSION: No acute intracranial abnormality. Right side temporal bone surgery and increased density right exter nal auditory canal that could be otitis externa. No change compared to old exam.
[2021-02-09 23:35] LABS: INR 0.9 (<1.2); Partial Thromboplastin Time 28.8 sec (22.0-30.0); Prothrombin Time 9.7 sec (9.0-12.0)
[2021-02-09 23:36] LABS: ALT 12 U/L (4-34); AST 21 U/L (14-36); African American GFR (CKD) >90 (>60 ml/min/1.73 sqM); Albumin 4.2 g/dL (3.5-5.0); Alkaline Phosphatase 139 U/L (38-126); Anion Gap 11 mmol/L; Blood Urea Nitrogen 15 mg/dL (7-17); Calcium 9.7 mg/dL (8.4-10.2); Carbon Dioxide 19 mmol/L (22-30); Chloride 111 mmol/L (98-107); Glucose 132 mg/dL (74-99); Magnesium 2.2 mg/dL (1.6-2.3); Non-African American GFR(CKD) >90 (>60 ml/min/1.73 sqM); Potassium 4.1 mmol/L (3.5-5.1); Sodium 141 mmol/L (137-145); Total Bilirubin 0.2 mg/dL (0.2-1.3); Total Protein 7.4 g/dL (6.3-8.2)
--- NOTE | 2021-02-09 23:39 | XR ---
EXAMINATION TYPE: XR chest 2V DATE OF EXAM: 02/09/2021 COMPARISON: 09/28/2020 HISTORY: Chest pain TECHNIQUE: 2 views FINDINGS: There is no heart failure nor confluent pneumonic infiltrate. Costophrenic angles are clear . There are chest leads. Bony thorax is intact. IMPRESSION: Normal chest. No change.
[2021-02-10 01:53] VITALS: BP 136/58; PULSE 65; TEMP 98
== END 2021-02-10 01:50 | disposition home or self-care (01) ==
LOC: EC 20:56
DX: R51.9 Headache, unspecified (principal); R55 Syncope and collapse; M79.7 Fibromyalgia; F41.9 Anxiety disorder, unspecified; Z85.038 Personal history of other malignant neoplasm of large intestine; Z88.0 Allergy status to penicillin; Z88.1 Allergy status to other antibiotic agents; Z90.49 Acquired absence of other specified parts of digestive tract; Z90.710 Acquired absence of both cervix and uterus; Z79.899 Other long term (current) drug therapy
CPT/HCPCS: 99284; 96374; 96375; 36415; 93005; 80053; 83735; 84484; 85025; 85610; 85730; 71046; 70450; J2765; J2930

== ENCOUNTER 2021-04-12 00:33 | Emergency (ER) | payer OTHER ==
[2021-04-12 02:15] VITALS: BP 111/71; TEMP 97.4
[2021-04-12] MEDS ORDERED: SODIUM CHLORIDE 0.9% 1,000 ML IV STA (02:49)
[2021-04-12] MEDS ORDERED: HYDROmorphone 1 MG/ML 1 ML SYRINGE IVP STA (02:49)
[2021-04-12] MEDS ORDERED: ONDANSETRON 4 MG/2 ML VIAL IVP STA (02:49)
[2021-04-12] MEDS ORDERED: PANTOPRAZOLE 40 MG/10 ML VIAL IVP STA (02:49)
--- NOTE | 2021-04-12 02:50 | ED ---
Abdominal Pain HPI - General Chief Complaint: Abdominal Pain Stated Complaint: Abdominal Pain Time Seen by Provider: 04/12/21 01:56 Source: patient, RN notes reviewed, old records reviewed Mode of arrival: ambulatory Limitations: no limitations - History of Present Illness Initial Comments: This is a 35-year-old female to the emergency department for evaluation today. Patient presents today for evaluation regards to abdominal pain. Patient is postop: Cancer surgery coming in for abdominal pain now. Patient has no other complaints no fevers no nausea vomiting chest pain. Burning pain. Having bowel movements without difficulty. No blood. Otherwise patient states she's been feeling well MD Complaint: abdominal pain -: days(s) Location: diffuse, epigastric Radiation: epigastric Migration to: suprapubic Severity: moderate Severity scale (1-10): 4 Quality: fullness, sharp Consistency: constant Improves With: nothing Worsens With: nothing Context: recent surgery/procedure Associated Symptoms: nausea, vomiting Treatments Prior to Arrival: other (none) - Related Data Home Medications Medication Instructions Recorded Confirmed lamoTRIgine [LaMICtal] 200 mg PO BID 09/26/18 02/09/21 Topiramate 100 mg PO DAILY 12/19/18 02/09/21 clonazePAM [KlonoPIN] 1 mg PO TID 04/20/19 02/09/21 Topiramate 50 mg PO HS 12/19/19 02/09/21 Lidocaine-Prilocaine Cream [Emla 1 applic TOPICAL DIRECTED PRN 02/09/21 02/09/21 Cream 2.5%/2.5%] Omeprazole 20 mg PO BID 02/09/21 02/09/21 Sertraline [Zoloft] 100 mg PO DAILY 02/09/21 02/09/21 ondansetron HCL [Zofran] 8 mg PO Q8H PRN 02/09/21 02/09/21 oxyCODONE-APAP 5-325MG [Percocet 1 tab PO Q8H PRN 02/09/21 02/09/21 5-325 mg] Allergies Allergy/AdvReac Type Severity Reaction Status Date / Time erythromycin base Allergy Rash/Hives Verified 04/12/21 02:10 gadobutrol [From Gadavist] Allergy Anaphylaxis Verified 04/12/21 02:10 Gadolinium-Containing Allergy Anaphylaxis Verified 04/12/21 02:10 Contrast Medi iodine Allergy Anaphylaxis Verified 04/12/21 02:10 ketorolac tromethamine Allergy Rash/Hives/ Verified 04/12/21 02:10 [From Toradol] hallucinati ons Penicillins Allergy Anaphylaxis Verified 04/12/21 02:10 azithromycin AdvReac red face Verified 04/12/21 02:10 lorazepam [From Ativan] AdvReac Hallucinati Verified 04/12/21 02:10 ons Review of Systems ROS Statement: Those systems with pertinent positive or pertinent negative responses have been documented in the HPI. ROS Other: All systems not noted in ROS Statement are negative. 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 BLOOD TRANSFUSIONS FOR LOW HGB. History of Any Multi-Drug Resistant Organisms: MRSA Date of last positivie culture/infection: 08/10/19 MDRO Source:: URINE Past Surgical History: Appendectomy, Bowel Resection, Cholecystectomy, Ear Surgery, Hysterectomy, Orthopedic Surgery Additional Past Surgical History / Comment(s): frantz knee arthroscopy, hiatal hernia surgery, rt ear surgery to remove middle ear, lymph node biopsy right armpit. loop recorder Past Anesthesia/Blood Transfusion Reactions: Postoperative Nausea & Vomiting (PONV) Additional Past Anesthesia/Blood Transfusion Reaction / Comment(s): Pt has received blood in past without reaction. Past Psychological History: Anxiety, Panic Disorder Smoking Status: Never smoker Past Alcohol Use History: Rare Past Drug Use History: None Reported - Past Family History Mother Family Medical History: No Reported History Additional Family Medical History / Comment(s): . Father Family Medical History: No Reported History Additional Family Medical History / Comment(s): Father is healthy General Exam General appearance: alert, in no apparent distress Head exam: Present: atraumatic, normocephalic, normal inspection Eye exam: Present: normal appearance, PERRL, EOMI. Absent: scleral icterus, conjunctival injection, periorbital swelling ENT exam: Present: normal exam, mucous membranes moist Neck exam: Present: normal inspection. Absent: tenderness, meningismus, lymphadenopathy Respiratory exam: Present: normal lung sounds bilaterally. Absent: respiratory distress, wheezes, rales, rhonchi, stridor Cardiovascular Exam: Present: regular rate, normal rhythm, normal heart sounds. Absent: systolic murmur, diastolic murmur, rubs, gallop, clicks GI/Abdominal exam: Present: soft, normal bowel sounds. Absent: distended, tenderness, guarding, rebound, rigid Extremities exam: Present: normal inspection, full ROM, normal capillary refill. Absent: tenderness, pedal edema, joint swelling, calf tenderness Back exam: Present: normal inspection Neurological exam: Present: alert, oriented X3, CN II-XII intact Psychiatric exam: Present: normal affect, normal mood Skin exam: Present: warm, dry, intact, normal color. Absent: rash Course Vital Signs 04/12/21 02:10 Temperature 97.4 F L Pulse Rate 73 Respiratory 20 Rate Blood Pressure 111/71 O2 Sat by Pulse 100 Oximetry - Reevaluation(s) Reevaluation #1: 04/12/21 04:01 Medical record is reviewed Reevaluation #2: 04/12/21 04:01 Patient feeling much better here in the ER Reevaluation #3: 04/12/21 04:01 Patient informed of results and questions answered Medical Decision Making - Medical Decision Making 55 female to the emergency department for evaluation of abdominal pain. Otherwise no current complaints. Patient feels well here in the ER and can be discharged home, lab values normal CT is negative - Lab Data Result diagrams: 04/12/21 03:16 04/12/21 03:16 Lab Results 04/12/21 04/12/21 Range/Units 03:16 03:16 WBC 6.3 (3.8-10.6) k/uL RBC 3.67 L (3.80-5.40) m/uL Hgb 10.3 L (11.4-16.0) gm/dL Hct 31.9 L (34.0-46.0) % MCV 86.9 (80.0-100.0) fL MCH 28.2 (25.0-35.0) pg MCHC 32.4 (31.0-37.0) g/dL RDW 17.8 H (11.5-15.5) % Plt Count 271 (150-450) k/uL MPV 7.6 Neutrophils % 62 % Lymphocytes % 31 % Monocytes % 4 % Eosinophils % 1 % Basophils % 0 % Neutrophils # 3.9 (1.3-7.7) k/uL Lymphocytes # 2.0 (1.0-4.8) k/uL Monocytes # 0.3 (0-1.0) k/uL Eosinophils # 0.1 (0-0.7) k/uL Basophils # 0.0 (0-0.2) k/uL Hypochromasia Slight Anisocytosis Slight Sodium 140 (137-145) mmol/L Potassium 4.3 (3.5-5.1) mmol/L Chloride 110 H (98-107) mmol/L Carbon Dioxide 23 (22-30) mmol/L Anion Gap 7 mmol/L BUN 30 H (7-17) mg/dL Creatinine 0.87 (0.52-1.04) mg/dL Est GFR (CKD-EPI)AfAm 87 (>60 ml/min/1.73 sqM) Est GFR (CKD-EPI)NonAf 75 (>60 ml/min/1.73 sqM) Glucose 89 (74-99) mg/dL Calcium 9.4 (8.4-10.2) mg/dL Total Bilirubin 0.4 (0.2-1.3) mg/dL AST 30 (14-36) U/L ALT 17 (4-34) U/L Alkaline Phosphatase 213 H (38-126) U/L Total Protein 6.8 (6.3-8.2) g/dL Albumin 3.9 (3.5-5.0) g/dL Amylase 69 (30-110) U/L Lipase 113 (23-300) U/L - Radiology Data Radiology results: report reviewed (CT abdomen and pelvis negative for acute disease), image reviewed Disposition Clinical Impression: Abdominal pain Disposition: HOME SELF-CARE Condition: Good Instructions (If sedation given, give patient instructions): Abdominal Pain (ED) Is patient prescribed a controlled substance at d/c from ED?: No Referrals: Scott Medrano MD [Primary Care Provider] - 1-2 days
--- NOTE | 2021-04-12 03:26 | CT ---
EXAMINATION TYPE: CT abdomen pelvis wo con DATE OF EXAM: 04/12/2021 COMPARISON: 06/12/2020 HISTORY: pain CT DLP: 546.5 mGycm Automated exposure control for dose reduction was used. Images obtained from the diaphragm to the floor the pelvis with no contrast. FINDINGS: Lung bases are clear. There is no pleural effusion. Heart size is normal. There is no pericardial eff usion. Liver and spleen appear intact. Stomach is intact. There are clips from cholecystectomy. There is no evidence of pancreatic mass. There is no adrenal mass. Kidneys show normal size and contour. There is no hydronephrosis. Ureters a re not dilated. There is no retroperitoneal adenopathy. There is previous surgery at the [facility]. There is right hemicolectomy. There is no evidence of a pelvic mass. Bladder distends smoothly. There is no free fluid in the pelvis. There is no ascites or free air. There is no sign of a bowel obstruction. There is no mesenteric hamida a. The lumbar vertebrae have normal alignment. Posterior elements are intact. There is no compression fr acture. Bony pelvis is intact. The hip joints are intact. IMPRESSION: Previous surgery. No acute abnormality of the abdomen and pelvis. No adverse change.
[2021-04-12 03:34] LABS: Anisocytosis Slight; Basophils % (A) 0 %; Eosinophils # (A) 0.1 k/uL (0-0.7); Eosinophils % (A) 1 %; HCT 31.9 % (34.0-46.0); HGB 10.3 gm/dL (11.4-16.0); Hypochromasia Slight; Lymphocytes % (A) 31 %; MCH 28.2 pg (25.0-35.0); MCHC 32.4 g/dL (31.0-37.0); MCV 86.9 fL (80.0-100.0); Mean Platelet Volume 7.6; Monocytes # (A) 0.3 k/uL (0-1.0); Monocytes % (A) 4 %; Neutrophils # (A) 3.9 k/uL (1.3-7.7); Neutrophils % (A) 62 %; Platelet Count 271 k/uL (150-450); RBC 3.67 m/uL (3.80-5.40); RDW 17.8 % (11.5-15.5); WBC 6.3 k/uL (3.8-10.6)
[2021-04-12 03:48] LABS: Albumin 3.9 g/dL (3.5-5.0); Calcium 9.4 mg/dL (8.4-10.2); Potassium 4.3 mmol/L (3.5-5.1); Total Bilirubin 0.4 mg/dL (0.2-1.3); Total Protein 6.8 g/dL (6.3-8.2)
[2021-04-12 04:41] VITALS: PULSE 76; RESP 16
== END 2021-04-12 04:41 | disposition home or self-care (01) ==
LOC: EC 00:33
DX: R10.84 Generalized abdominal pain (principal); M79.7 Fibromyalgia; F41.9 Anxiety disorder, unspecified; Z88.0 Allergy status to penicillin; Z88.1 Allergy status to other antibiotic agents; Z85.038 Personal history of other malignant neoplasm of large intestine; Z90.49 Acquired absence of other specified parts of digestive tract; Z90.710 Acquired absence of both cervix and uterus
CPT/HCPCS: 99284; 96374; 96375 ×2; 96361; 36415; 80053; 82150; 83690; 85025; 74176; J2405; J1170; C9113

== ENCOUNTER 2021-05-11 06:55 | Emergency (ER) | payer OTHER ==
[2021-05-11 07:04] VITALS: RESP 18; TEMP 97.6
[2021-05-11] MEDS ORDERED: clonazePAM 0.5 MG TAB PO STA (07:33)
--- NOTE | 2021-05-11 07:40 | ED ---
General Adult HPI - General Chief complaint: Seizure Stated complaint: Seizures Time Seen by Provider: 05/11/21 07:01 Source: patient, EMS, RN notes reviewed Mode of arrival: EMS Limitations: no limitations - History of Present Illness Initial comments: Patient is a pleasant 55-year-old female presenting to the emergency Department with complaints of reported seizure. Mother provides majority of history. Patient has been under increased emotional stress recently. 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 Patient had 4 episodes today lasting about 4 minutes each. Patient just feels drowsy at this time. Patient does have somewhat of a headache which is also chronic following her stress seizures. Patient has had multiple previous evaluations including CTs. No recent change in medications. No recent illness. - Related Data Home Medications Medication Instructions Recorded Confirmed lamoTRIgine [LaMICtal] 200 mg PO BID 09/26/18 02/09/21 Topiramate 100 mg PO DAILY 12/19/18 02/09/21 clonazePAM [KlonoPIN] 1 mg PO TID 04/20/19 02/09/21 Topiramate 50 mg PO HS 12/19/19 02/09/21 Lidocaine-Prilocaine Cream [Emla 1 applic TOPICAL DIRECTED PRN 02/09/21 02/09/21 Cream 2.5%/2.5%] Omeprazole 20 mg PO BID 02/09/21 02/09/21 Sertraline [Zoloft] 100 mg PO DAILY 02/09/21 02/09/21 ondansetron HCL [Zofran] 8 mg PO Q8H PRN 02/09/21 02/09/21 oxyCODONE-APAP 5-325MG [Percocet 1 tab PO Q8H PRN 02/09/21 02/09/21 5-325 mg] Previous Rx's Medication Instructions Recorded HYDROcodone/APAP 10-325MG [[place] 1 tab PO Q8HR PRN #12 tab 04/12/21 10-325] Allergies Allergy/AdvReac Type Severity Reaction Status Date / Time erythromycin base Allergy Rash/Hives Verified 04/12/21 02:10 gadobutrol [From Gadavist] Allergy Anaphylaxis Verified 04/12/21 02:10 Gadolinium-Containing Allergy Anaphylaxis Verified 04/12/21 02:10 Contrast Medi iodine Allergy Anaphylaxis Verified 04/12/21 02:10 ketorolac tromethamine Allergy Rash/Hives/ Verified 04/12/21 02:10 [From Toradol] hallucinati ons Penicillins Allergy Anaphylaxis Verified 04/12/21 02:10 azithromycin AdvReac red face Verified 04/12/21 02:10 lorazepam [From Ativan] AdvReac Hallucinati Verified 04/12/21 02:10 ons Review of Systems ROS Statement: Those systems with pertinent positive or pertinent negative responses have been documented in the HPI. ROS Other: All systems not noted in ROS Statement are negative. Constitutional: Denies: fever Eyes: Denies: eye pain ENT: Denies: ear pain Respiratory: Denies: cough Cardiovascular: Denies: chest pain Endocrine: Denies: fatigue Gastrointestinal: Denies: abdominal pain Genitourinary: Denies: dysuria Musculoskeletal: Denies: back pain Skin: Denies: rash Neurological: Reports: as per HPI, headache. 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 BLOOD TRANSFUSIONS FOR LOW HGB. History of Any Multi-Drug Resistant Organisms: MRSA Date of last positivie culture/infection: 08/10/19 MDRO Source:: URINE Past Surgical History: Appendectomy, Bowel Resection, Cholecystectomy, Ear Surgery, Hysterectomy, Orthopedic Surgery Additional Past Surgical History / Comment(s): frantz knee arthroscopy, hiatal hernia surgery, rt ear surgery to remove middle ear, lymph node biopsy right armpit. loop recorder Past Anesthesia/Blood Transfusion Reactions: Postoperative Nausea & Vomiting (PONV) Additional Past Anesthesia/Blood Transfusion Reaction / Comment(s): Pt has received blood in past without reaction. Past Psychological History: Anxiety, Panic Disorder Smoking Status: Never smoker Past Alcohol Use History: Rare Past Drug Use History: None Reported - Past Family History Mother Family Medical History: No Reported History Additional Family Medical History / Comment(s): . Father Family Medical History: No Reported History Additional Family Medical History / Comment(s): Father is healthy General Exam Limitations: no limitations General appearance: alert, in no apparent distress Head exam: Present: atraumatic Eye exam: Present: normal appearance, PERRL, EOMI ENT exam: Present: normal oropharynx Neck exam: Present: normal inspection. Absent: tenderness, meningismus Respiratory exam: Present: normal lung sounds bilaterally Cardiovascular Exam: Present: regular rate, normal rhythm GI/Abdominal exam: Present: soft. Absent: tenderness Extremities exam: Present: normal inspection Neurological exam: Present: alert, CN II-XII intact. Absent: motor sensory deficit Expanded Neurological exam: Present: protecting the airway Cranial nerves: EOM's Intact: Normal Motor strength exam: RUE: 5, LUE: 5, RLE: 5, LLE: 5 Eye Response: (4) open spontaneously Motor Response: (6) obeys commands Verbal Response: (5) oriented Psychiatric exam: Present: normal affect, normal mood Skin exam: Present: normal color Course Vital Signs 05/11/21 06:58 Temperature 97.6 F Pulse Rate 69 Respiratory 18 Rate Blood Pressure 141/73 O2 Sat by Pulse 96 Oximetry EKG Findings - EKG Comments: EKG Findings:: Sinus rhythm with first-degree AV block, rate 65. SD 210. QRS 162. QT 444. QTC 461. Left axis. Right bundle branch block. LVH criteria. No acute ST change. Medical Decision Making - Medical Decision Making Patient reevaluated and resting comfortably in bed. Patient and family are comfortable with discharge home. They do confirm that this is consistent with her stress seizures. Patient still has somewhat of a headache and would like some Motrin for this. Patient takes Motrin 800. - Lab Data Result diagrams: 05/11/21 07:34 05/11/21 07:34 Lab Results 05/11/21 05/11/21 Range/Units 07:34 07:34 WBC 6.2 (3.8-10.6) k/uL RBC 3.70 L (3.80-5.40) m/uL Hgb 10.5 L (11.4-16.0) gm/dL Hct 32.6 L (34.0-46.0) % MCV 88.0 (80.0-100.0) fL MCH 28.4 (25.0-35.0) pg MCHC 32.3 (31.0-37.0) g/dL RDW 17.2 H (11.5-15.5) % Plt Count 254 (150-450) k/uL MPV 7.7 Neutrophils % 65 % Lymphocytes % 27 % Monocytes % 4 % Eosinophils % 3 % Basophils % 1 % Neutrophils # 4.0 (1.3-7.7) k/uL Lymphocytes # 1.6 (1.0-4.8) k/uL Monocytes # 0.2 (0-1.0) k/uL Eosinophils # 0.2 (0-0.7) k/uL Basophils # 0.1 (0-0.2) k/uL Hypochromasia Slight Anisocytosis Slight Sodium 138 (137-145) mmol/L Potassium 4.4 (3.5-5.1) mmol/L Chloride 111 H (98-107) mmol/L Carbon Dioxide 22 (22-30) mmol/L Anion Gap 5 mmol/L BUN 27 H (7-17) mg/dL Creatinine 0.80 (0.52-1.04) mg/dL Est GFR (CKD-EPI)AfAm >90 (>60 ml/min/1.73 sqM) Est GFR (CKD-EPI)NonAf 84 (>60 ml/min/1.73 sqM) Glucose 96 (74-99) mg/dL Calcium 9.1 (8.4-10.2) mg/dL Magnesium 2.1 (1.6-2.3) mg/dL Total Bilirubin 0.6 (0.2-1.3) mg/dL AST 37 H (14-36) U/L ALT 15 (4-34) U/L Alkaline Phosphatase 172 H (38-126) U/L Total Protein 6.9 (6.3-8.2) g/dL Albumin 3.7 (3.5-5.0) g/dL Disposition Clinical Impression: Seizure Disposition: HOME SELF-CARE Condition: Stable Instructions (If sedation given, give patient instructions): Recurrent Seizures in Adults (ED) Additional Instructions: Please do follow-up with your primary care physician and neurologist and psychiatrist this week. Return for recurrent seizures, fever or illness, worsening or changing symptoms or other concerns. Have your doctor follow-up with lab results. Is patient prescribed a controlled substance at d/c from ED?: No Referrals: Scott Medrano MD [Primary Care Provider] - 1-2 days Time of Disposition: 08:32
[2021-05-11 07:56] LABS: Anisocytosis Slight; Basophils # (A) 0.1 k/uL (0-0.2); Basophils % (A) 1 %; Eosinophils # (A) 0.2 k/uL (0-0.7); Eosinophils % (A) 3 %; HCT 32.6 % (34.0-46.0); HGB 10.5 gm/dL (11.4-16.0); Hypochromasia Slight; Lymphocytes # (A) 1.6 k/uL (1.0-4.8); Lymphocytes % (A) 27 %; MCH 28.4 pg (25.0-35.0); MCHC 32.3 g/dL (31.0-37.0); Mean Platelet Volume 7.7; Monocytes # (A) 0.2 k/uL (0-1.0); Monocytes % (A) 4 %; Neutrophils % (A) 65 %; Platelet Count 254 k/uL (150-450); RDW 17.2 % (11.5-15.5); WBC 6.2 k/uL (3.8-10.6)
[2021-05-11 08:09] LABS: ALT 15 U/L (4-34); African American GFR (CKD) >90 (>60 ml/min/1.73 sqM); Albumin 3.7 g/dL (3.5-5.0); Anion Gap 5 mmol/L; Blood Urea Nitrogen 27 mg/dL (7-17); Calcium 9.1 mg/dL (8.4-10.2); Carbon Dioxide 22 mmol/L (22-30); Chloride 111 mmol/L (98-107); Glucose 96 mg/dL (74-99); Non-African American GFR(CKD) 84 (>60 ml/min/1.73 sqM); Sodium 138 mmol/L (137-145); Total Bilirubin 0.6 mg/dL (0.2-1.3); Total Protein 6.9 g/dL (6.3-8.2)
[2021-05-11 08:11] LABS: Magnesium 2.1 mg/dL (1.6-2.3); Potassium 4.4 mmol/L (3.5-5.1)
[2021-05-11 08:12] LABS: AST 37 U/L (14-36); Alkaline Phosphatase 172 U/L (38-126)
[2021-05-11] MEDS ORDERED: IBUPROFEN 800 MG TAB PO STA (08:27)
[2021-05-11 08:41] VITALS: BP 115/69; PULSE 79
[2021-05-12 09:51] LABS: Lamotrigine (Lamictal) 5.2 ug/mL (2.0-15.0)
== END 2021-05-11 09:02 | disposition home or self-care (01) ==
LOC: EC 06:55
DX: G40.909 Epilepsy, unspecified, not intractable, without status epilepticus (principal); M79.7 Fibromyalgia; F41.9 Anxiety disorder, unspecified; Z79.899 Other long term (current) drug therapy
CPT/HCPCS: 36415; 80053; 80175; 80201; 83735; 85025; 93005; 99284

== ENCOUNTER 2021-05-16 21:34 | Inpatient (IN) | payer OTHER ==
[2021-05-16] MEDS ORDERED: diphenhydrAMINE 50 MG/ML 1 ML VIAL IVP STA (21:37)
[2021-05-16] MEDS ORDERED: SODIUM CHLORIDE 0.9% 500 ML 500 ML IV STA (21:37)
[2021-05-16] MEDS ORDERED: FAMOTIDINE 20 MG/2 ML VIAL IV STA (21:37)
[2021-05-16] MEDS ORDERED: methylPREDNISolone SOD SUCCI 125 MG/2 ML VIAL IV STA (21:37)
--- NOTE | 2021-05-16 21:43 | ED ---
General Adult HPI - General Stated complaint: Neuro Deficits Time Seen by Provider: 05/16/21 21:37 - History of Present Illness Initial comments: Dictation was produced using [employer] dictation software. please excuse any grammatical, word or spelling errors. Chief Complaint: Patient is 55-year-old female presents to the emergency depar [facility] for right-sided numbness and weakness History of Present Illness: Is a 55-year-old female she has past medical history of pseudoseizures, syncope, fibromyalgia and colon cancer. States that 1 hour ago she developed acute onset paralysis and numbness to her right lower extremity and right upper extremity. EMS was called. Once it was approximately 8:30 PM. Patient denies any history of significant GI bleed or intracranial hemorrhage. She does report having a history of a small intracranial aneurysm. She does not know the exact size of the aneurysm. She denies any headache. States that she's never had her aneurysm surgically intervened on. She does not take in adequate ablation medications. The ROS documented in this emergency department record has been reviewed and confirmed by me. Those systems with pertinent positive or negative responses have been documented in the HPI. All other systems are other negative and/or noncontributory. PHYSICAL EXAM: General Impression: Alert and oriented x3, not in acute distress HEENT: Normocephalic atraumatic, extra-ocular movements intact, pupils equal and reactive to light bilaterally, mucous membranes moist. Cardiovascular: Heart regular rate and rhythm Chest: Able to complete full sentences, no retractions, no tachypnea Abdomen: abdomen soft, non-tender, non-distended, no organomegaly Musculoskeletal: Pulses present and equal in all extremities, no peripheral edema Motor: no focal deficits noted Neurological: CN II-XII grossly intact, plus paralysis of the right lower and right upper extremity, she states that she has full numbness to the right upper and right lower extremity. NIH score is 8 Skin: Intact with no visualized rashes Psych: Normal affect and mood ED course: 55-year-old female presents emergency department for strokelike symptoms starting at 8:30 PM. Code alteplase was called. Patient is a cand idate for TPA. Review shows that patient was evaluated by neurology in February 2020 for the same complaint of right-sided hemiplegia and sensory deficit. She had a negative MRI at that time showing no signs of stroke. Neurology interpretation was that patient had a conversion disorder event. Patient reevaluated bedside at 10:00 PM. She is now showing signs of right- sided facial droop. Patient's NIH score is increasing. Case was discussed with Dr. Perales at 9:55 PM. Recommends tPA administration if CT brain is negative for intracranial bleed. CT was read as normal with no intracranial bleed at approximately 10:10 PM. Risks and benefits were discussed with patient. Patient was very slow to decide but ultimately verbally consented to TPA administration. Angiography CT of the brain and neck shows no large vessel occlusion. Laboratory evaluation obtained. CBC, coag panel, metabolic panel is unremarkble. discussed with Dr. Medrano who is willing to accept patient's care. Patient reevaluated bedside 11:50 PM found to be in stable medical condition. She is improved. She is now having more movement and sensation in her right lower extremity. Parents at the bedside updated on patient's results and plan. Patient be admitted to our ICU. Case discussed with Dr. Erica Dominguez - Related Data Home Medications Medication Instructions Recorded Confirmed lamoTRIgine [LaMICtal] 200 mg PO BID 09/26/18 05/16/21 clonazePAM [KlonoPIN] 1 mg PO TID PRN 04/20/19 05/16/21 Topiramate 50 mg PO BID 12/19/19 05/16/21 Lidocaine-Prilocaine Cream [Emla 1 applic TOPICAL DIRECTED PRN 02/09/21 05/16/21 Cream 2.5%/2.5%] oxyCODONE-APAP 5-325MG [Percocet 1 tab PO Q8H PRN 02/09/21 05/16/21 5-325 mg] Previous Rx's Medication Instructions Recorded HYDROcodone/APAP 10-325MG [[place] 1 tab PO Q8HR PRN #12 tab 04/12/21 10-325] Allergies Allergy/AdvReac Type Severity Reaction Status Date / Time erythromycin base Allergy Rash/Hives Verified 05/16/21 22:41 gadobutrol [From Gadavist] Allergy Anaphylaxis Verified 05/16/21 22:41 Gadolinium-Containing Allergy Anaphylaxis Verified 05/16/21 22:41 Contrast Medi iodine Allergy Anaphylaxis Verified 05/16/21 22:41 ketorolac tromethamine Allergy Rash/Hives/ Verified 05/16/21 22:41 [From Toradol] hallucinati ons Penicillins Allergy Anaphylaxis Verified 05/16/21 22:41 azithromycin AdvReac red face Verified 05/16/21 22:41 lorazepam [From Ativan] AdvReac Hallucinati Verified 05/16/21 22:41 ons Review of Systems ROS Statement: Those systems with pertinent positive or pertinent negative responses have been documented in the HPI. ROS Other: All systems not noted in ROS Statement are negative. 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 BLOOD TRANSFUSIONS FOR LOW HGB. History of Any Multi-Drug Resistant Organisms: MRSA Date of last positivie culture/infection: 08/10/19 MDRO Source:: URINE Past Surgical History: Appendectomy, Bowel Resection, Cholecystectomy, Ear Surgery, Hysterectomy, Orthopedic Surgery Additional Past Surgical History / Comment(s): frantz knee arthroscopy, hiatal hernia surgery, rt ear surgery to remove middle ear, lymph node biopsy right armpit. loop recorder Past Anesthesia/Blood Transfusion Reactions: Postoperative Nausea & Vomiting (PONV) Additional Past Anesthesia/Blood Transfusion Reaction / Comment(s): Pt has received blood in past without reaction. Past Psychological History: Anxiety, Panic Disorder Smoking Status: Never smoker Past Alcohol Use History: Rare Past Drug Use History: None Reported - Past Family History Mother Family Medical History: No Reported History Additional Family Medical History / Comment(s): . Father Family Medical History: No Reported History Additional Family Medical History / Comment(s): Father is healthy Course Vital Signs 05/16/21 05/16/21 05/16/21 21:55 22:00 22:10 Temperature 98.3 F Pulse Rate 70 75 67 Respiratory 18 18 18 Rate Blood Pressure 164/74 141/74 156/78 O2 Sat by Pulse 97 98 98 Oximetry 05/16/21 05/16/21 05/16/21 22:25 22:40 22:55 Temperature Pulse Rate 68 69 71 Respiratory 18 18 18 Rate Blood Pressure 146/72 156/68 142/68 O2 Sat by Pulse 95 100 98 Oximetry 05/16/21 23:10 Temperature Pulse Rate 63 Respiratory 18 Rate Blood Pressure 127/55 O2 Sat by Pulse 98 Oximetry Medical Decision Making - Lab Data Result diagrams: 05/16/21 22:05 05/16/21 22:05 Lab Results 05/16/21 05/16/21 05/16/21 Range/Units 22:05 22:05 22:05 WBC 7.9 (3.8-10.6) k/uL RBC 3.76 L (3.80-5.40) m/uL Hgb 10.9 L (11.4-16.0) gm/dL Hct 33.4 L (34.0-46.0) % MCV 88.7 (80.0-100.0) fL MCH 29.0 (25.0-35.0) pg MCHC 32.7 (31.0-37.0) g/dL RDW 17.2 H (11.5-15.5) % Plt Count 282 (150-450) k/uL MPV 7.6 Neutrophils % 56 % Lymphocytes % 37 % Monocytes % 4 % Eosinophils % 2 % Basophils % 0 % Neutrophils # 4.4 (1.3-7.7) k/uL Lymphocytes # 2.9 (1.0-4.8) k/uL Monocytes # 0.3 (0-1.0) k/uL Eosinophils # 0.1 (0-0.7) k/uL Basophils # 0.0 (0-0.2) k/uL Hypochromasia Slight Anisocytosis Slight PT 10.0 (9.0-12.0) sec INR 0.9 (<1.2) APTT 21.2 L (22.0-30.0) sec Sodium 139 (137-145) mmol/L Potassium 3.6 (3.5-5.1) mmol/L Chloride 106 (98-107) mmol/L Carbon Dioxide 26 (22-30) mmol/L Anion Gap 7 mmol/L BUN 21 H (7-17) mg/dL Creatinine 0.94 (0.52-1.04) mg/dL Est GFR (CKD-EPI)AfAm 79 (>60 ml/min/1.73 sqM) Est GFR (CKD-EPI)NonAf 69 (>60 ml/min/1.73 sqM) Glucose 89 (74-99) mg/dL Calcium 9.2 (8.4-10.2) mg/dL Total Bilirubin 0.3 (0.2-1.3) mg/dL AST 39 H (14-36) U/L ALT 22 (4-34) U/L Alkaline Phosphatase 246 H (38-126) U/L Troponin I (0.000-0.034) ng/mL Total Protein 7.1 (6.3-8.2) g/dL Albumin 3.9 (3.5-5.0) g/dL 05/16/21 Range/Units 22:05 WBC (3.8-10.6) k/uL RBC (3.80-5.40) m/uL Hgb (11.4-16.0) gm/dL Hct (34.0-46.0) % MCV (80.0-100.0) fL MCH (25.0-35.0) pg MCHC (31.0-37.0) g/dL RDW (11.5-15.5) % Plt Count (150-450) k/uL MPV Neutrophils % % Lymphocytes % % Monocytes % % Eosinophils % % Basophils % % Neutrophils # (1.3-7.7) k/uL Lymphocytes # (1.0-4.8) k/uL Monocytes # (0-1.0) k/uL Eosinophils # (0-0.7) k/uL Basophils # (0-0.2) k/uL Hypochromasia Anisocytosis PT (9.0-12.0) sec INR (<1.2) APTT (22.0-30.0) sec Sodium (137-145) mmol/L Potassium (3.5-5.1) mmol/L Chloride (98-107) mmol/L Carbon Dioxide (22-30) mmol/L Anion Gap mmol/L BUN (7-17) mg/dL Creatinine (0.52-1.04) mg/dL Est GFR (CKD-EPI)AfAm (>60 ml/min/1.73 sqM) Est GFR (CKD-EPI)NonAf (>60 ml/min/1.73 sqM) Glucose (74-99) mg/dL Calcium (8.4-10.2) mg/dL Total Bilirubin (0.2-1.3) mg/dL AST (14-36) U/L ALT (4-34) U/L Alkaline Phosphatase (38-126) U/L Troponin I <0.012 (0.000-0.034) ng/mL Total Protein (6.3-8.2) g/dL Albumin (3.5-5.0) g/dL Critical Care Time Critical Care Time: Yes Total Critical Care Time: 33 Disposition Clinical Impression: Cerebrovascular accident (CVA) Disposition: ADMITTED IP TO THIS HOSP Condition: Critical
[2021-05-16] MEDS ORDERED: ALTEPLASE 62 MG in EMPTY BAG 1 BAG IV STA (21:55)
[2021-05-16] MEDS ORDERED: ALTEPLASE BOLUS FOR STROKE 7 MG in EMPTY SYRINGE 1 SYR IV STA (21:55)
--- NOTE | 2021-05-16 22:09 | CT ---
EXAMINATION TYPE: CT brain wo con for TPA DATE OF EXAM: 05/16/2021 COMPARISON: 02/09/2021 HISTORY: rigth side weakness CT DLP: 1492.4 mGycm Automated exposure control for dose reduction was used. CT brain without contrast. Ventricles have normal size. There is no mass effect nor midline shift. There is no sign of intracran ial hemorrhage. Rivera and white matter structures have fairly normal density. No evidence of cerebral edema. There is previous surgery right mastoid sinus. Calvarium is intact. IMPRESSION: No acute intracranial abnormality. No change.
--- NOTE | 2021-05-16 22:11 | XR ---
EXAMINATION TYPE: XR chest 1V portable DATE OF EXAM: 05/16/2021 COMPARISON: 02/09/2021 HISTORY: Altered mental status TECHNIQUE: Single view FINDINGS: There is no heart failure nor confluent pneumonic infiltrate. Costophrenic angles are clear . There is right subclavian catheter with tip in the superior vena cava. There is no evidence of pleu ral effusion. IMPRESSION: No active cardiopulmonary disease. No change.
--- NOTE | 2021-05-16 22:19 | CT ---
EXAMINATION TYPE: CT angio head neck DATE OF EXAM: 05/16/2021 COMPARISON: 02/14/2020 HISTORY: right side weakness CT DLP: 1492.4 mGycm Automated exposure control for dose reduction was used. CONTRAST: Performed with IV Contrast, patient injected with 65 mL of Isovue 370. There are Three-D postprocessed images. Images obtained from the aortic arch to the vertex of the bra in with IV contrast. There is normal branching pattern of the great vessels on the aortic arch. There is arterial flow in both subclavian arteries. There is arterial flow in the common internal and extra carotid arteries bi laterally. There is arterial flow in both vertebral arteries which are fairly symmetric. There is art erial flow in the vertebrobasilar artery system. There is no evidence of carotid or vertebral artery aneurysm or dissection. There is wide patency of the carotid artery bifurcations. There is arterial flow in the anterior middle and posterior cerebral arteries. There is no mass effec t. No evidence of intracranial hemodynamic arterial stenosis. There is normal enhancement of the veno us sinuses. No evidence of intracranial aneurysm or neovascularity. IMPRESSION: Negative CT angiogram of the neck. Negative CT angiogram of the brain. No adverse change compared to old exam.
[2021-05-16] MEDS ORDERED: SODIUM CHLORIDE 0.9% 50 ML MINI-BAG IV ONE ×2 (22:56→23:32)
[2021-05-16 23:06] LABS: INR 0.9 (<1.2); Partial Thromboplastin Time 21.2 sec (22.0-30.0)
[2021-05-16 23:12] LABS: Albumin 3.9 g/dL (3.5-5.0); Calcium 9.2 mg/dL (8.4-10.2); Potassium 3.6 mmol/L (3.5-5.1); Total Bilirubin 0.3 mg/dL (0.2-1.3); Total Protein 7.1 g/dL (6.3-8.2)
[2021-05-16 23:17] LABS: Anisocytosis Slight; Basophils % (A) 0 %; Eosinophils # (A) 0.1 k/uL (0-0.7); Eosinophils % (A) 2 %; HCT 33.4 % (34.0-46.0); HGB 10.9 gm/dL (11.4-16.0); Hypochromasia Slight; Lymphocytes # (A) 2.9 k/uL (1.0-4.8); Lymphocytes % (A) 37 %; MCHC 32.7 g/dL (31.0-37.0); MCV 88.7 fL (80.0-100.0); Mean Platelet Volume 7.6; Monocytes # (A) 0.3 k/uL (0-1.0); Monocytes % (A) 4 %; Neutrophils # (A) 4.4 k/uL (1.3-7.7); Neutrophils % (A) 56 %; Platelet Count 282 k/uL (150-450); RBC 3.76 m/uL (3.80-5.40); RDW 17.2 % (11.5-15.5); WBC 7.9 k/uL (3.8-10.6)
[2021-05-17 04:18] LABS: Glucose,Whole Blood 159 mg/dL (75-99)
[2021-05-17 05:47] LABS: Glucose,Whole Blood 160 mg/dL (75-99)
--- NOTE | 2021-05-17 10:45 | P.CNPUL ---
History of Present Illness Consult date: 05/17/21 Requesting physician: Scott Medrano Reason for consult: other (Right-sided weakness, status post TPA) Chief complaint: Right sided weakness and paralysis History of present illness: This is a 55-year-old female with history of multiple medical problems, patient is known to have history of pseudoseizures, fibromyalgia, colon cancer, presented yesterday to the ER with 1 hour symptoms of paralysis and numbness on the right side involving the right upper extremity and right lower extremity. P john had negative findings on the CT of the brain and CT angiogram of the neck. Considering her presentation, patient was given TPA. Considering that the patient received TPA, she was admitted to the ICU, and I was asked to see her on consultation just mostly because she is in the ICU. Patient has no symptoms of side effects related to her TPA, she has no headache, no blurred vision, no dizziness, continues to have significant right-sided weakness involving right upper extremity and right lower extremity. Not much of a change compared to her presentation in spite of TPA. Patient is hemodynamically stable, and she is yet to be seen by neurology on consultation. During my evaluation, the patient had no symptoms except for persistent symptoms of weakness in the right upper extremity and right lower extremity. Considering the patient history of pseudoseizures, I am just concerned that patient may not have true CVA symptoms. She is yet to be seen by neurology on consultatio Review of Systems Constitutional: Negative HEENT: Negative Pulmonary: Negative Cardiac: Negative GI: Negative Genitourinary: Negative Musculoskeletal: As noted in HPI, patient presented with right-sided weakness Neurologic: As noted in HPI. History of pseudoseizures Endocrine: Negative Hematologic: Negative Skin: Past Medical History Past Medical History: Blood Disorder, Cancer, Fibromyalgia, Pneumonia, Seizure Disorder, Skin Disorder, Syncope Additional Past Medical History / Comment(s): migraines, "stress seizures"-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 BLOOD TRANSFUSIONS FOR LOW HGB. History of Any Multi-Drug Resistant Organisms: MRSA Date of last positivie culture/infection: 08/10/19 MDRO Source:: URINE Past Surgical History: Appendectomy, Bowel Resection, Cholecystectomy, Ear Surgery, Hysterectomy, Orthopedic Surgery Additional Past Surgical History / Comment(s): frantz knee arthroscopy, hiatal hernia surgery, rt ear surgery to remove middle ear, lymph node biopsy right armpit. loop recorder Past Anesthesia/Blood Transfusion Reactions: Postoperative Nausea & Vomiting (PONV) Additional Past Anesthesia/Blood Transfusion Reaction / Comment(s): Pt has re ceived blood in past without reaction. Past Psychological History: Anxiety, Panic Disorder Smoking Status: Never smoker Past Alcohol Use History: Rare Past Drug Use History: None Reported - Past Family History Mother Family Medical History: No Reported History Additional Family Medical History / Comment(s): . Father Family Medical History: No Reported History Additional Family Medical History / Comment(s): Father is healthy Medications and Allergies Home Medications Medication Instructions Recorded Confirmed Type lamoTRIgine [LaMICtal] 200 mg PO BID 09/26/18 05/16/21 History clonazePAM [KlonoPIN] 1 mg PO TID PRN 04/20/19 05/16/21 History Topiramate 50 mg PO BID 12/19/19 05/16/21 History Lidocaine-Prilocaine Cream [Emla 1 applic TOPICAL DIRECTED PRN 02/09/21 05/16/21 History Cream 2.5%/2.5%] oxyCODONE-APAP 5-325MG [Percocet 1 tab PO Q8H PRN 02/09/21 05/16/21 History 5-325 mg] HYDROcodone/APAP 10-325MG [[place] 1 tab PO Q8HR PRN #12 tab 04/12/21 05/16/21 Rx 10-325] Allergies Allergy/AdvReac Type Severity Reaction Status Date / Time erythromycin base Allergy Rash/Hives Verified 05/16/21 22:41 gadobutrol [From Gadavist] Allergy Anaphylaxis Verified 05/16/21 22:41 Gadolinium-Containing Allergy Anaphylaxis Verified 05/16/21 22:41 Contrast Medi iodine Allergy Anaphylaxis Verified 05/16/21 22:41 ketorolac tromethamine Allergy Rash/Hives/ Verified 05/16/21 22:41 [From Toradol] hallucinati ons Penicillins Allergy Anaphylaxis Verified 05/16/21 22:41 azithromycin AdvReac red face Verified 05/16/21 22:41 lorazepam [From Ativan] AdvReac Hallucinati Verified 05/16/21 22:41 ons Physical Exam Vitals: Vital Signs Temp Pulse Resp BP Pulse Ox 05/17/21 09:00 56 L 14 135/57 97 05/17/21 08:30 58 L 13 152/61 98 05/17/21 08:00 57 L 16 127/64 98 05/17/21 07:30 77 12 142/67 96 05/17/21 07:09 52 L 16 137/87 98 05/17/21 07:00 51 L 17 96 05/17/21 06:30 51 L 20 138/64 97 05/17/21 06:17 62 19 112/74 98 05/17/21 06:00 50 L 15 132/75 98 05/17/21 05:47 59 L 17 124/63 98 05/17/21 05:30 52 L 13 121/86 96 05/17/21 05:17 61 18 119/74 97 05/17/21 05:00 56 L 14 130/76 98 05/17/21 04:47 60 21 131/65 97 05/17/21 04:40 55 L 20 141/76 96 05/17/21 04:30 63 17 98 05/17/21 04:20 58 L 18 97 05/17/21 04:17 56 L 20 127/62 98 05/17/21 04:15 97.6 F 61 13 05/17/21 03:40 55 L 18 137/84 98 05/17/21 03:10 53 L 18 147/70 97 05/17/21 02:40 53 L 18 144/70 98 05/17/21 02:10 65 18 135/63 97 05/17/21 01:40 56 L 20 126/86 98 05/17/21 01:10 56 L 18 120/87 98 05/17/21 00:40 65 18 126/40 98 05/17/21 00:25 60 18 127/68 98 05/17/21 00:10 78 18 122/58 98 05/16/21 23:55 70 18 139/68 97 05/16/21 23:40 68 18 139/68 97 05/16/21 23:25 71 18 124/64 98 05/16/21 23:10 63 18 127/55 98 05/16/21 22:55 71 18 142/68 98 05/16/21 22:40 69 18 156/68 100 05/16/21 22:25 68 18 146/72 95 05/16/21 22:10 67 18 156/78 98 05/16/21 22:00 98.3 F 75 18 141/74 98 05/16/21 21:55 70 18 164/74 97 Intake and Output 05/16/21 05/17/21 05/17/21 22:59 06:59 14:59 Output Total 450 0 Balance -450 0 Output: Urine 450 0 Other: Voiding Method Bedpan # Voids 0 Weight 75.795 kg 74.5 kg Physical Exam: Revealed a 55-year-old white female in no distress. Head: Atraumatic, normocephalic. HEENT:[Neck is supple.] [No neck masses.] [No thyromegaly.] [No JVD.] Chest: [Clear throughout, no crackles, no rhonchi, no wheezes.] Cardiac Exam: [Normal S1 and S2, no S3 gallop, no murmur.] Abdomen: [Soft, nontender, no megaly, no rebound, no guarding, normal bowel sounds.] Extremities: [No clubbing, no edema, no cyanosis.] Neurological Exam: Alert oriented 3, patient has mostly right-sided weakness involving the right upper extremity and the right lower extremity, could barely raise right upper extremity and right lower extremity off the bed. Otherwise no gross focal deficits. Psychiatric: Normal mood, affect and normal mental status examination. Skin: No rashes Results - Laboratory Findings CBC and BMP: 05/16/21 22:05 05/16/21 22:05 PT/INR, D-dimer PT 10.0 sec (9.0-12.0) 05/16/21 22:05 INR 0.9 (<1.2) 05/16/21 22:05 Abnormal lab findings: Abnormal Labs 05/16/21 05/16/21 05/16/21 22:05 22:05 22:05 RBC 3.76 L Hgb 10.9 L Hct 33.4 L RDW 17.2 H APTT 21.2 L BUN 21 H POC Glucose (mg/dL) AST 39 H Alkaline Phosphatase 246 H 05/17/21 05/17/21 04:15 05:46 RBC Hgb Hct RDW APTT BUN POC Glucose (mg/dL) 159 H 160 H AST Alkaline Phosphatase - Diagnostic Findings Chest x-ray: image reviewed (No evidence of active disease.) Additional studies: Neurologic studies including angiography CT, brain CT are unremarkable. Assessment and Plan Assessment: Impression: Status post TPA infusion for possible left hemispheric CVA and right-sided weakness with negative CT of the brain and CT angiography. History of pseudoseizures. History of fibromyalgia History of frequent visits to the ER by reviewing her past medical history. Recommendation: Continue present treatment plan as per neurology on the case and as per the admitting physician on the case. Will transfer the patient out of the ICU, We will follow as needed. Time with Patient: Greater than 30
[2021-05-17 11:55] LABS: Chol/HDL Ratio 4.63 Ratio; LDL Cholesterol,Calculated 145.5 mg/dL (0.0-131.0)
[2021-05-17] MEDS ORDERED: HYDROcodone/APAP 10-325MG 1 EACH TAB PO PRN (12:11)
--- NOTE | 2021-05-17 12:11 | P.HPIM ---
History of Present Illness H&P Date: 05/17/21 Chief Complaint: Right-sided weakness This is a 55-year-old white female well-known to me. She has a history of colon cancer with resection 2. She has a history of fibromyalgia and conversion disorder with pseudoseizures. She presented to the emergency room with right-si ded numbness and weakness. CT brain and CT angiogram with contrast were both negative. She did meet criteria and was given TPA. She does have a history of small intracranial aneurysm. She had a right upper and lower limb paralysis. He was treated. She is now resting comfortably in the intensive care unit. She continues to have persistent right-sided paralysis, but staff informs me it isn't consistent and she does move her right side when she is unaware being observed. The patient currently denies any chest pains pressures shortness of breath, nausea or vomiting. Does have abdominal pain it's been more chronic since her most recent surgery January 01 upper colon with resection. She currently is living at home with her mother living with her. I see vitals are stable normal heart rate rest her rate and blood pressure and oxygen saturation room air. Laboratory studies show a mild anemia hemoglobin 10.9. Glucose is 160 this morning. Triglycerides were 370 cholesterol 282 and LDL 145. Her HDL is 60. I've great concerns regarding the psychiatric care of this patient requiring TPA for possible conversion disorder hemiparesis/hemiplegia. Neurology has seen her in the remote. Review of Systems All systems: negative Past Medical History Past Medical History: Blood Disorder, Cancer, Fibromyalgia, Pneumonia, Seizure Disorder, Skin Disorder, Syncope Additional Past Medical History / Comment(s): migraines, "stress seizures"-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 BLOOD TRANSFUSIONS FOR LOW HGB. History of Any Multi-Drug Resistant Organisms: MRSA Date of last positivie culture/infection: 08/10/19 MDRO Source:: URINE Past Surgical History: Appendectomy, Bowel Resection, Cholecystectomy, Ear Surgery, Hysterectomy, Orthopedic Surgery Additional Past Surgical History / Comment(s): frantz knee arthroscopy, hiatal hernia surgery, rt ear surgery to remove middle ear, lymph node biopsy right armpit. loop recorder Past Anesthesia/Blood Transfusion Reactions: Postoperative Nausea & Vomiting (PONV) Additional Past Anesthesia/Blood Transfusion Reaction / Comment(s): Pt has received blood in past without reaction. Past Psychological History: Anxiety, Panic Disorder Smoking Status: Never smoker Past Alcohol Use History: Rare Past Drug Use History: None Reported - Past Family History Mother Family Medical History: No Reported History Additional Family Medical History / Comment(s): . Father Family Medical History: No Reported History Additional Family Medical History / Comment(s): Father is healthy Medications and Allergies Home Medications Medication Instructions Recorded Confirmed Type lamoTRIgine [LaMICtal] 200 mg PO BID 09/26/18 05/16/21 History clonazePAM [KlonoPIN] 1 mg PO TID PRN 04/20/19 05/16/21 History Topiramate 50 mg PO BID 12/19/19 05/16/21 History Lidocaine-Prilocaine Cream [Emla 1 applic TOPICAL DIRECTED PRN 02/09/21 05/16/21 History Cream 2.5%/2.5%] oxyCODONE-APAP 5-325MG [Percocet 1 tab PO Q8H PRN 02/09/21 05/16/21 History 5-325 mg] HYDROcodone/APAP 10-325MG [[place] 1 tab PO Q8HR PRN #12 tab 04/12/21 05/16/21 Rx 10-325] Allergies Allergy/AdvReac Type Severity Reaction Status Date / Time erythromycin base Allergy Rash/Hives Verified 05/16/21 22:41 gadobutrol [From Gadavist] Allergy Anaphylaxis Verified 05/16/21 22:41 Gadolinium-Containing Allergy Anaphylaxis Verified 05/16/21 22:41 Contrast Medi iodine Allergy Anaphylaxis Verified 05/16/21 22:41 ketorolac tromethamine Allergy Rash/Hives/ Verified 05/16/21 22:41 [From Toradol] hallucinati ons Penicillins Allergy Anaphylaxis Verified 05/16/21 22:41 azithromycin AdvReac red face Verified 05/16/21 22:41 lorazepam [From Ativan] AdvReac Hallucinati Verified 05/16/21 22:41 ons Physical Exam Vitals: Vital Signs Temp Pulse Resp BP Pulse Ox 05/17/21 11:00 73 20 111/64 100 05/17/21 10:30 66 15 111/64 100 05/17/21 10:00 70 14 117/47 99 05/17/21 09:30 53 L 14 119/54 05/17/21 09:00 56 L 14 135/57 97 05/17/21 08:30 58 L 13 152/61 98 05/17/21 08:00 57 L 16 127/64 98 05/17/21 07:30 77 12 142/67 96 05/17/21 07:09 52 L 16 137/87 98 05/17/21 07:00 51 L 17 96 05/17/21 06:30 51 L 20 138/64 97 05/17/21 06:17 62 19 112/74 98 05/17/21 06:00 50 L 15 132/75 98 05/17/21 05:47 59 L 17 124/63 98 05/17/21 05:30 52 L 13 121/86 96 05/17/21 05:17 61 18 119/74 97 05/17/21 05:00 56 L 14 130/76 98 05/17/21 04:47 60 21 131/65 97 05/17/21 04:40 55 L 20 141/76 96 05/17/21 04:30 63 17 98 05/17/21 04:20 58 L 18 97 05/17/21 04:17 56 L 20 127/62 98 05/17/21 04:15 97.6 F 61 13 05/17/21 03:40 55 L 18 137/84 98 05/17/21 03:10 53 L 18 147/70 97 05/17/21 02:40 53 L 18 144/70 98 05/17/21 02:10 65 18 135/63 97 05/17/21 01:40 56 L 20 126/86 98 05/17/21 01:10 56 L 18 120/87 98 05/17/21 00:40 65 18 126/40 98 05/17/21 00:25 60 18 127/68 98 05/17/21 00:10 78 18 122/58 98 05/16/21 23:55 70 18 139/68 97 05/16/21 23:40 68 18 139/68 97 05/16/21 23:25 71 18 124/64 98 05/16/21 23:10 63 18 127/55 98 05/16/21 22:55 71 18 142/68 98 05/16/21 22:40 69 18 156/68 100 05/16/21 22:25 68 18 146/72 95 05/16/21 22:10 67 18 156/78 98 05/16/21 22:00 98.3 F 75 18 141/74 98 05/16/21 21:55 70 18 164/74 97 Intake and Output 05/16/21 05/17/21 05/17/21 22:59 06:59 14:59 Output Total 450 0 Balance -450 0 Output: Urine 450 0 Other: Voiding Method Bedpan # Voids 0 Weight 75.795 kg 74.5 kg GENERAL: Pleasant, Somewhat obese female and in no acute distress. HEAD: Atraumatic, normocephalic. EYES: Pupils equal round and reactive to light, extraocular movements intact, sclera anicteric, conjunctiva are normal. ENT:nares patent, oropharynx clear without exudates. Moist mucous membranes. NECK: Normal range of motion, supple without lymphadenopathy or JVD, no thyromegaly LUNGS: Breath sounds clear to auscultation bilaterally and equal. No wheezes rales or rhonchi. HEART: Regular rate and rhythm without murmurs, rubs or gallops.S1S2 Normal ABDOMEN: Soft, , normoactive bowel sounds. No guarding, no rebound. No masses appreciated. There is some generalized abdominal tenderness to palpation. This been present since before her most recent colon cancer surgery January 01. EXTREMITIES: Normal range of motion, no pitting or edema. No clubbing or cyanosis. NEUROLOGICAL: Cranial nerves II through XII grossly intact. Normal speech, gait untestable. Her right-sided movement seemed decreased compared to the left, it does seem slightly inconsistent with true CVA. Strength is 5 out of 5 on the left side. 4 out of 5 on the right with upper extremity grasp, flexion and extension of the elbow and shoulder. The right lower extremity support of 5 with normal dorsiflexion and plantar flexion. Decreased hip flexion and extensi on noted. PSYCH: Normal mood, normal affect. SKIN: Warm, Dry, normal turgor, no rashes or lesions noted. Results CBC & Chem 7: 05/16/21 22:05 05/16/21 22:05 Labs: Abnormal Lab Results - Last 24 Hours (Table) 05/16/21 05/16/21 05/16/21 Range/Units 22:05 22:05 22:05 RBC 3.76 L (3.80-5.40) m/uL Hgb 10.9 L (11.4-16.0) gm/dL Hct 33.4 L (34.0-46.0) % RDW 17.2 H (11.5-15.5) % APTT 21.2 L (22.0-30.0) sec BUN 21 H (7-17) mg/dL POC Glucose (mg/dL) (75-99) mg/dL AST 39 H (14-36) U/L Alkaline Phosphatase 246 H (38-126) U/L Triglycerides (0.00-149.00) mg/dL Cholesterol (0.00-200.00) mg/dL LDL Cholesterol, Calc (0.0-131.0) mg/dL VLDL Cholesterol, Calc (5.00-40.00) mg/dL HDL Cholesterol (40.00-60.00) mg/dL 05/16/21 05/17/21 05/17/21 Range/Units 22:05 04:15 05:46 RBC (3.80-5.40) m/uL Hgb (11.4-16.0) gm/dL Hct (34.0-46.0) % RDW (11.5-15.5) % APTT (22.0-30.0) sec BUN (7-17) mg/dL POC Glucose (mg/dL) 159 H 160 H (75-99) mg/dL AST (14-36) U/L Alkaline Phosphatase (38-126) U/L Triglycerides 378.00 H (0.00-149.00) mg/dL Cholesterol 282.00 H (0.00-200.00) mg/dL LDL Cholesterol, Calc 145.5 H (0.0-131.0) mg/dL VLDL Cholesterol, Calc 75.60 H (5.00-40.00) mg/dL HDL Cholesterol 60.90 H (40.00-60.00) mg/dL Chest x-ray: report reviewed CT Scan - head: report reviewed Thrombosis Risk Factor Assmnt - DVT/VTE Prophylaxis DVT/VTE Prophylaxis: Contraindicated - See note (Recent TPA treatment) Assessment and Plan (1) Right sided weakness Current Visit: Yes Status: Acute Code(s): R53.1 - WEAKNESS SNOMED Code(s): 366982588 (2) Conversion disorder with abnormal movement, acute episode Current Visit: Yes Status: Acute Code(s): F44.4 - CONVERSION DISORDER WITH MOTOR SYMPTOM OR DEFICIT SNOMED Code(s): 61144472 (3) Conversion disorder with seizures or convulsions Current Visit: Yes Status: Acute Code(s): F44.5 - CONVERSION DISORDER WITH SEIZURES OR CONVULSIONS SNOMED Code(s): 28195264 (4) Fibromyalgia Current Visit: Yes Status: Acute Code(s): M79.7 - FIBROMYALGIA SNOMED Code(s): 668314414 (5) H/O malignant neoplasm of colon Current Visit: Yes Status: Acute Code(s): Z85.038 - PERSONAL HISTORY OF MAL IGNANT NEOPLASM OF LARGE INTESTINE SNOMED Code(s): 005846219 (6) Chronic abdominal pain Current Visit: Yes Status: Acute Code(s): R10.9 - UNSPECIFIED ABDOMINAL PAIN; G89.29 - OTHER CHRONIC PAIN SNOMED Code(s): 256071134 (7) Aneurysm, cerebral, nonruptured Current Visit: Yes Status: Acute Code(s): I67.1 - CEREBRAL ANEURYSM, NONRUPTURED SNOMED Code(s): 763221175 Plan: She is received TPA for this, so from intensive care unit under observation. We'll consult announcer for comanagement in intensive care stay. Neurologist been consulted in a senior moment we'll see her person. I will consult psychiatry regarding her history of conversion disorder with this most recent episode, possible not truly a CVA, but warrants further evaluation. Repeat labs in a.m. she does have mild anemia. She'll be reevaluated in the next 24 hours. We'll repeat labs in a.m.
[2021-05-17] MEDS: lamoTRIgine 100 MG TAB PO SCH ×2 (15:57→20:34)
--- NOTE | 2021-05-17 15:57 | P.CNNES ---
History of Present Illness Consult date: 05/17/21 Requesting physician: Tristan Aranda Reason for Consult: CVA, status post TPA History of Present Illness: This is a telemedicine neurology consultation performed today on 05/17/2021. Patient is a 55-year-old right-handed female who came to the hospital by ambulance yesterday at 9:34 PM for acute onset of right hemiparesis. Patient states her symptoms started last night at 8 PM. She couldn't feel her right arm and right leg and also was weak. Patient says that if she would have walked, she would have fallen because the leg would not have held her up. Patient states that about 15 minutes prior to the stroke symptoms, she started having headache involving top of the head, like a migraine. She was making cards at that time, which she always do. She also started getting dizzy. Then her right-sided weakness started. As per EMS flow sheet, when they arrived to the scene, found patient laying in the bed. Patient states she began to experience right-sided numbness starting approximately an hour prior to calling 911. Patient stated symptoms have progressed to right-sided weakness. Patient is unable to move right arm or leg. Patient had no speech deficits, equal smile, unable to lift right arm to attempt drift test. Patient was alert and oriented 3 upon arrival although she is alert and oriented 4 at baseline. EKG shows normal sinus rhythm. Patient's vitals at the scene was blood pressure 149/60, pulse rate 74 respirations 16, saturation 100%. Blood pressure on arrival to the ER was 164/74. Computed tomography scan of head showed no acute intracranial abnormality. I personally reviewed computed tomography scan of the head and shows no acute intracranial findings. CTA of head and neck reported negative. EKG showed sinus rhythm with first-degree AV block. Right bundle-branch block. Left anterior fascicular block. Chest x-ray showed no active cardiopulmonary disease. Patient's home medications include Lamictal 200 mg twice a day, clonazepam 1 mg 3 times a day when necessary, Topamax 50 mg twice a day, Percocet and [place]. Patient states that she takes Percocet and [place] because of a history of recurrence of colon cancer last year. Her incision and stomach hurts. Her initial colon cancer was 3 years ago. Patient also complains of having chronic peripheral vision loss. Patient has been seen by myself on 02/14/2020 for acute right hemiparesis, rule out CVA, rule out functional disorder. 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 Patient was discharged on aspirin 325 mg daily. Patient carries a diagnosis of "stress seizures". Patient denies any history of hypertension diabetes, never smoked. Review of Systems As above in detail. Complains of headache, right-sided weakness. Denies any chest pain, abdominal pain nausea vomiting diarrhea. No fever or chills. Complains of weakness. All other review of systems reviewed and unremarkable. 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 BLOOD TRANSFUSIONS FOR LOW HGB. History of Any Multi-Drug Resistant Organisms: MRSA Date of last positivie culture/infection: 08/10/19 MDRO Source:: URINE Past Surgical History: Appendectomy, Bowel Resection, Cholecystectomy, Ear Surgery, Hysterectomy, Orthopedic Surgery Additional Past Surgical History / Comment(s): frantz knee arthroscopy, hiatal hernia surgery, rt ear surgery to remove middle ear, lymph node biopsy right armpit. loop recorder Past Anesthesia/Blood Transfusion Reactions: Postoperative Nausea & Vomiting (PONV) Additional Past Anesthesia/Blood Transfusion Reaction / Comment(s): Pt has received blood in past without reaction. Past Psychological History: Anxiety, Panic Disorder Smoking Status: Never smoker Past Alcohol Use History: Rare Past Drug Use History: None Reported - Past Family History Mother Family Medical History: No Reported History Additional Family Medical History / Comment(s): . Father Family Medical History: No Reported History Additional Family Medical History / Comment(s): Father is healthy Medications and Allergies Home Medications Medication Instructions Recorded Confirmed Type lamoTRIgine [LaMICtal] 200 mg PO BID 09/26/18 05/16/21 History clonazePAM [KlonoPIN] 1 mg PO TID PRN 04/20/19 05/16/21 History Topiramate 50 mg PO BID 12/19/19 05/16/21 History Lidocaine-Prilocaine Cream [Emla 1 applic TOPICAL DIRECTED PRN 02/09/21 05/16/21 History Cream 2.5%/2.5%] oxyCODONE-APAP 5-325MG [Percocet 1 tab PO Q8H PRN 02/09/21 05/16/21 History 5-325 mg] HYDROcodone/APAP 10-325MG [[place] 1 tab PO Q8HR PRN #12 tab 04/12/21 05/16/21 Rx 10-325] Allergies Allergy/AdvReac Type Severity Reaction Status Date / Time erythromycin base Allergy Rash/Hives Verified 05/16/21 22:41 gadobutrol [From Gadavist] Allergy Anaphylaxis Verified 05/16/21 22:41 Gadolinium-Containing Allergy Anaphylaxis Verified 05/16/21 22:41 Contrast Medi iodine Allergy Anaphylaxis Verified 05/16/21 22:41 ketorolac tromethamine Allergy Rash/Hives/ Verified 05/16/21 22:41 [From Toradol] hallucinati ons Penicillins Allergy Anaphylaxis Verified 05/16/21 22:41 azithromycin AdvReac red face Verified 05/16/21 22:41 lorazepam [From Ativan] AdvReac Hallucinati Verified 05/16/21 22:41 ons Physical Examination - Vital Signs Vital Signs: Vital Signs Temp Pulse Resp BP Pulse Ox 05/17/21 07:09 52 L 16 137/87 98 05/17/21 07:00 51 L 17 96 05/17/21 06:30 51 L 20 138/64 97 05/17/21 06:17 62 19 112/74 98 05/17/21 06:00 50 L 15 132/75 98 05/17/21 05:47 59 L 17 124/63 98 05/17/21 05:30 52 L 13 121/86 96 05/17/21 05:17 61 18 119/74 97 05/17/21 05:00 56 L 14 130/76 98 05/17/21 04:47 60 21 131/65 97 05/17/21 04:40 55 L 20 141/76 96 05/17/21 04:30 63 17 98 05/17/21 04:20 58 L 18 97 05/17/21 04:17 56 L 20 127/62 98 05/17/21 04:15 97.6 F 61 13 05/17/21 03:40 55 L 18 137/84 98 05/17/21 03:10 53 L 18 147/70 97 05/17/21 02:40 53 L 18 144/70 98 05/17/21 02:10 65 18 135/63 97 05/17/21 01:40 56 L 20 126/86 98 05/17/21 01:10 56 L 18 120/87 98 05/17/21 00:40 65 18 126/40 98 05/17/21 00:25 60 18 127/68 98 05/17/21 00:10 78 18 122/58 98 05/16/21 23:55 70 18 139/68 97 05/16/21 23:40 68 18 139/68 97 05/16/21 23:25 71 18 124/64 98 05/16/21 23:10 63 18 127/55 98 05/16/21 22:55 71 18 142/68 98 05/16/21 22:40 69 18 156/68 100 05/16/21 22:25 68 18 146/72 95 05/16/21 22:10 67 18 156/78 98 05/16/21 22:00 98.3 F 75 18 141/74 98 05/16/21 21:55 70 18 164/74 97 Intake and Output 05/16/21 05/17/21 05/17/21 22:59 06:59 14:59 Output Total 450 0 Balance -450 0 Output: Urine 450 0 Other: Weight 75.795 kg 74.5 kg Patient is a middle aged female, in no acute distress. Patient is alert awake oriented to time place and person. Speech and language functions are normal. Attention, concentration and fund of knowledge is adequate. Patient complains of memory disturbance. On cranial nerve examination, pupils are equal, round and reacting to light, visual moreno are full on confrontation, extraocular muscles are intact with no nystagmus. Face is symmetric, tongue protrudes to the midline. Palatal elevation and sensation normal, hearing is mildly decreased bilaterally and shoulder shrug normal, facial sensation normal. . On muscle strength testing, the strength is normal in the left arm and left leg. On the right side, patient could not hold her right arm up to check for pronator drift. She has 0 strength in the right arm proximally. She was moving her hand. Likewise in the right lower limb, she would not move her leg, but would wiggle her foot. Patient was noticed to move her right arm sporadically when she was not focused on the arms. Deep tendon reflexes are symmetric 2+, and plantars downgoing. Sensory to touch is decreased in the right arm mainly below the elbow. It is equal on the face and the leg. Cerebellar function showed no ataxia for eisvja-ph-oate testing on the left, cannot perform to the right. Tone and bulk of muscles normal. Gait not checked. On general examination, there is no carotid bruit or murmur, S1-S2 audible. Abdomen is soft nontender. Chest is clear. Peripheral pulses are present. No edema. Results - Laboratory Findings CBC and BMP: 05/16/21 22:05 05/16/21 22:05 Abnormal Lab Findings: Abnormal Labs 05/16/21 05/16/21 05/16/21 22:05 22:05 22:05 RBC 3.76 L Hgb 10.9 L Hct 33.4 L RDW 17.2 H APTT 21.2 L BUN 21 H POC Glucose (mg/dL) AST 39 H Alkaline Phosphatase 246 H 05/17/21 05/17/21 04:15 05:46 RBC Hgb Hct RDW APTT BUN POC Glucose (mg/dL) 159 H 160 H AST Alkaline Phosphatase Assessment and Plan Assessment: * 55-year-old female admitted with acute right hemiparesis, only involving the arm and leg. Patient has previously been admitted to the hospital with similar presentation and a negative MRI, was diagnosed with probable conversion disorder. * History of nonepileptic seizures. * History of colon cancer, currently in remission * History of syncope in the past. Plan: * Patient wants to go home, despite having severe weakness in the right arm and leg. * MRI of the brain rule out CVA * Patient to undergo [address] head. If no hemorrhage, then may start aspirin 325 mg daily. Patient apparently was not taking any aspirin or antiplatelet at home prior to arrival. * Continue neuro checks. * Dr. Neo Chew will resume neurology service in the morning. About 30 minutes after we have rounded on her, patient's nurse called us stating that she had a seizure. Apparently patient called the nurse that she was going to have a seizure. That her left arm went in a chair. When she was jerking but was fully alert and awake, talking to the nurse. It was also noted by nurses that patient was using her right arm much better than what she reports weakness. Conversion disorder, nonepileptic seizures are very highly likely. Her seizure like activity has resolved. Continue to observe. Agree with psychiatric consultation.
[2021-05-17] MEDS: TOPIRAMATE 25 MG TAB PO SCH ×2 (15:58→20:34)
[2021-05-17] MEDS: clonazePAM 1 MG TAB PO PRN (17:50)
--- NOTE | 2021-05-17 22:45 | CT ---
EXAMINATION TYPE: CT brain wo con DATE OF EXAM: 05/17/2021 COMPARISON: 05/16/2021 HISTORY: 24 hours post TPA, right sided weakness. CT DLP: 1062.4 mGycm Automated exposure control for dose reduction was used. Ventricles have normal size. There is no mass effect or midline shift. There is no evidence of intrac ranial hemorrhage. The calvarium is intact. Skull base is intact. There is surgery at the right masto id sinus. IMPRESSION: No acute abnormality. No change compared to last exam.
[2021-05-18 07:05] LABS: Albumin 3.5 g/dL (3.5-5.0); Calcium 9.1 mg/dL (8.4-10.2); Magnesium 2.1 mg/dL (1.6-2.3); Total Bilirubin 0.4 mg/dL (0.2-1.3); Total Protein 6.6 g/dL (6.3-8.2)
[2021-05-18] MEDS: TOPIRAMATE 25 MG TAB PO SCH ×2 (10:10→19:54)
[2021-05-18] MEDS: lamoTRIgine 100 MG TAB PO SCH ×2 (10:10→19:54)
[2021-05-18] MEDS: PANTOPRAZOLE 40 MG/10 ML VIAL IVP SCH (10:11)
[2021-05-18] MEDS: clonazePAM 1 MG TAB PO PRN (10:14)
[2021-05-18] MEDS: ASPIRIN 325 MG TAB PO SCH (10:24)
--- NOTE | 2021-05-18 10:50 | P.PN ---
Subjective Progress Note Date: 05/18/21 Principal diagnosis: Acute CVA, status post alteplase infusion This is a 55-year-old female with history of multiple medical problems, patient is known to have history of pseudoseizures, fibromyalgia, colon cancer, presented yesterday to the ER with 1 hour symptoms of paralysis and numbness on the right side involving the right upper extremity and right lower extremity. Patient had negative findings on the CT of the brain and CT angiogram of the neck. Considering her presentation, patient was given TPA. Considering that the patient received TPA, she was admitted to the ICU, and I was asked to see her on consultation just mostly because she is in the ICU. Patient has no symptoms of side effects related to her TPA, she has no headache, no blurred vision, no dizziness, continues to have significant right-sided weakness involving right upper extremity and right lower extremity. Not much of a change compared to her presentation in spite of TPA. Patient is hemodynamically stable, and she is yet to be seen by neurology on consultation. During my evaluation, the patient had no symptoms except for persistent symptoms of weakness in the right upper extremity and right lower extremity. Considering the patient history of pseudoseizures, I am just concerned that patient may not have true CVA symptoms. She is yet to be seen by neurology on consultation On 05/18/2021 patient is seen in follow-up in the intensive care unit, she is awake and alert, in no acute distress, she is oriented 3, answering questions appropriately. Patient is status post TPA infusion for acute CVA on 05/16/2021. On today's exam patient continues to have weakness in her right upper and right lower extremity and patient is unable to lift up her right arm or right leg off the bed. No facial weakness, no dysarthria, no difficulty swallowing, brain CT from 05/17/2021 showed no acute abnormality, no change compared to her last exam on 05/16/2021. Vital signs have been stable overnight, patient is breathing comfortably, she is room air, pulse ox is 98%, blood pressure is stable, 101/77 this morning, and patient is afebrile. Today's labs have been reviewed, her sodium is 141, potassium is 4.0, chloride is 112, B1 is 29, creatinine 0.89, alk phos is improved and is down to 199, AST and ALT were within normal limits at 29 and 23 respectively, patient's lipid profile showed triglyceride level of 378, cholesterol of 282, LDL is 145, VLDL was 75, and HDL was 60.9. Patient has been started on Lipitor 40 mg at bedtime, he has started on full dose aspirin 325 mg daily, subcu heparin 5000 units every 12 hours. She continues on her home meds with Lamictal, Topamax, and Klonopin. Objective - Vital Signs Vital signs: Vital Signs Temp 98.2 F 05/18/21 04:00 Pulse 53 L 05/18/21 04:00 Resp 16 05/18/21 04:00 BP 101/77 05/18/21 04:00 Pulse Ox 98 05/18/21 00:00 Intake & Output 05/17/21 05/18/21 05/18/21 18:59 06:59 18:59 Intake Total 480 Output Total 0 0 Balance 0 480 Weight 74.6 kg Intake: Oral 480 Output: Urine 0 0 Other: Voiding Method Bedpan Bedpan # Voids 1 0 # Bowel Movements 1 - Exam GENERAL EXAM: Alert, pleasant, 55-year-old white female, resting in bed, denies any acute distress, she is oriented 2, history of questions appropriate, room air pulse ox is 98% comfortable in no apparent distress. HEAD: Normocephalic/atraumatic. EYES: Normal reaction of pupils, equal size. Conjunctiva pink, sclera white. NOSE: Clear with pink turbinates. THROAT: No erythema or exudates. NECK: No masses, no JVD, no thyroid enlargement, no adenopathy. CHEST: No chest wall deformity. Symmetrical expansion. LUNGS: Equal air entry with no crackles, wheeze, rhonchi or dullness. CVS: Regular rate and rhythm, normal S1 and S2, no gallops, no murmurs, no rubs ABDOMEN: Soft, nontender. No hepatosplenomegaly, normal bowel sounds, no guarding or rigidity. EXTREMITIES: No clubbing, no edema, no cyanosis, 2+ pulses and upper and lower extremities. MUSCULOSKELETAL: Muscle strength and tone normal. Patient is unable to lift up her right arm or right leg off the bed and resist gravity SPINE: No scoliosis or deformity SKIN: No rashes CENTRAL NERVOUS SYSTEM: Alert and oriented -3. Continues with weakness in the right arm and right leg, no resistance against gravity, and patient does c omplain of some numbness in the right leg PSYCHIATRIC: Alert and oriented -3. Appropriate affect. Intact judgment and insight. - Labs CBC & Chem 7: 05/16/21 22:05 05/18/21 06:31 Labs: Abnormal Lab Results - Last 24 Hours (Table) 05/16/21 05/18/21 Range/Units 22:05 06:31 Chloride 112 H (98-107) mmol/L BUN 29 H (7-17) mg/dL Glucose 101 H (74-99) mg/dL Alkaline Phosphatase 199 H (38-126) U/L Triglycerides 378.00 H (0.00-149.00) mg/dL Cholesterol 282.00 H (0.00-200.00) mg/dL LDL Cholesterol, Calc 145.5 H (0.0-131.0) mg/dL VLDL Cholesterol, Calc 75.60 H (5.00-40.00) mg/dL HDL Cholesterol 60.90 H (40.00-60.00) mg/dL Assessment and Plan Plan: #1. Acute CVA, status post TPA infusion for possible left hemispheric CVA and right-sided weakness. CT of the brain and CT angiography of the brain were negative. Follow-up CT of the brain from 05/17/2021 showed no acute abnormality and no change #2. Persistent right-sided arm weakness and right leg weakness, possibly related to the above, neurology service is following closely #3. Hyper lipidemia and hypertriglyceridemia patient has been started on Lipitor #4. History of pseudo-seizures #5. History of fibromyalgia #6. History of colon cancer with resection 2 #7. History of migraine headaches #8. Anxiety and panic disorder #9. Never smoker #10. History of MRSA infection Plan: Vital signs have been stable Follow-up brain CT has been reviewed Neurology's following, has added Lipitor, aspirin and subcu heparin Patient continues to have right arm and right leg weakness Continue close neurological monitoring Awaiting a bed on monitored bed on 3 S. Stable to transfer out of intensive care unit from pulmonary/critical care standpoint I performed a history & physical examination of the patient and discussed their management with my nurse practitioner, Cecily Lin. I reviewed the nurse practitioner's note and agree with the documented findings and plan of care. Lung sounds are positive for dim breath sound throughout the lung moreno. The findings and the impression was discussed with the patient. I attest to the documentation by the nurse practitioner. Time with Patient: Less than 30
--- NOTE | 2021-05-18 11:25 | P.DS ---
Providers Date of admission: 05/16/21 22:31 Expected date of discharge: 05/18/21 Attending physician: Scott Medrano Consults: 05/16/21 22:26 Consult Physician Routine Consulting Provider: Shireen Crook Consult Reason/Comments: cva, s/p tpa Do you want consulting provider notified?: Yes 05/16/21 22:33 Consult Physician Routine Consulting Provider: Harmony Burt Consult Reason/Comments: icu patient, s/p tpa Do you want consulting provider notified?: Already Contacted 05/17/21 19:26 Consult Physician Routine Consulting Provider: Demarcus Coates Consult Reason/Comments: psuedo stroke/seizures Do you want consulting provider notified?: Yes, Notify in am Primary care physician: Scott Medrano Hospital Course: Final Diagnoses: (1) Right sided weakness Current Visit: Yes Status: Acute Code(s): R53.1 - WEAKNESS SNOMED Code(s): 224309700 (2) Conversion disorder with abnormal movement, acute episode Current Visit: Yes Status: Acute Code(s): F44.4 - CONVERSION DISORDER WITH MOTOR SYMPTOM OR DEFICIT SNOMED Code(s): 78674368 (3) Conversion disorder with seizures or convulsions Current Visit: Yes Status: Acute Code(s): F44.5 - CONVERSION DISORDER WITH SEIZURES OR CONVULSIONS SNOMED Code(s): 54328801 (4) Fibromyalgia Current Visit: Yes Status: Acute Code(s): M79.7 - FIBROMYALGIA SNOMED Code(s): 364312320 (5) H/O malignant neoplasm of colon Current Visit: Yes Status: Acute Code(s): Z85.038 - PERSONAL HISTORY OF MALIGNANT NEOPLASM OF LARGE INTESTINE SNOMED Code(s): 894766992 (6) Chronic abdominal pain Current Visit: Yes Status: Acute Code(s): R10.9 - UNSPECIFIED ABDOMINAL PAIN; G89.29 - OTHER CHRONIC PAIN SNOMED Code(s): 834446140 (7) Aneurysm, cerebral, nonruptured Current Visit: Yes Status: Acute Code(s): I67.1 - CEREBRAL ANEURYSM, NONRUPTURED SNOMED Code(s): 859606255 Hospital course: This is a 55-year-old white female well-known to me. She has a history of colon cancer with resection 2. She has a history of fibromyalgia and conversion disorder with pseudoseizures. She presented to the emergency room with right- sided numbness and weakness. CT brain and CT angiogram with contrast were both negative. She did meet criteria and was given TPA. She does have a history of small intracranial aneurysm. She had a right upper and lower limb paralysis. He was treated. She is now resting comfortably in the intensive care unit. She continues to have persistent right-sided paralysis, but staff informs me it isn't consistent and she does move her right side when she is unaware being observed. The patient currently denies any chest pains pressures shortness of breath, nausea or vomiting. Does have abdominal pain it's been more chronic since her most recent surgery January 01 upper colon with resection. She currently is living at home with her mother living with her. I see vitals are stable normal heart rate rest her rate and blood pressure and oxygen saturation room air. Laboratory studies show a mild anemia hemoglobin 10.9. Glucose is 160 this morning. Triglycerides were 370 cholesterol 282 and LDL 145. Her HDL is 60. I've great concerns regarding the psychiatric care of this patient requiring TPA for possible conversion disorder hemiparesis/hemiplegia. Neurology has seen her in the remote. Evaluated by neurology, recommendations noted and appreciated. Patient will be discharged to mental health unit pending brain MRI ,neurology's final DC recommendations/clearance and psychiatry's evaluation/recommendations, in a stable condition with guarded prognosis. The impression and plan of care has been dictated as directed. : I performed a history and examination of this patient, discussed the same with the dictator. I agree with the dictator's note ,documented as a scribe. Any additional findings or plans will be noted. Patient Condition at Discharge: Stable Plan - Discharge Summary New Discharge Prescriptions: New Pantoprazole Sodium [Protonix] 40 mg PO DAILY #30 tab Continue lamoTRIgine [LaMICtal] 200 mg PO BID clonazePAM [KlonoPIN] 1 mg PO TID PRN PRN Reason: Anxiety Topiramate 50 mg PO BID HYDROcodone/APAP 10-325MG [[place] 10-325] 1 tab PO Q8HR PRN #12 tab PRN Reason: Pain Discontinued Lidocaine-Prilocaine Cream [Emla Cream 2.5%/2.5%] 1 applic TOPICAL DIRECTED PRN PRN Reason: PORT ACCESS oxyCODONE-APAP 5-325MG [Percocet 5-325 mg] 1 tab PO Q8H PRN PRN Reason: Pain Discharge Medication List lamoTRIgine [LaMICtal] 200 mg PO BID 09/26/18 [History] clonazePAM [KlonoPIN] 1 mg PO TID PRN 04/20/19 [History] Topiramate 50 mg PO BID 12/19/19 [History] HYDROcodone/APAP 10-325MG [[place] 10-325] 1 tab PO Q8HR PRN #12 tab 04/12/21 [Rx] Pantoprazole Sodium [Protonix] 40 mg PO DAILY #30 tab 05/18/21 [Rx] Follow up Appointment(s)/Referral(s): Scott Medrano MD [Primary Care Provider] - 3 Days (aftter dc from ) Activity/Diet/Wound Care/Special Instructions: MHU Discharge Disposition: TRANSFER TO PSYCH HOSP/UNIT
--- NOTE | 2021-05-18 11:32 | P.PN ---
Subjective Progress Note Date: 05/18/21 I am seeing the patient for the first time. Please refer to Dr. Crook's note for further details. Upon seeing the patient she stated she continues to have weakness over the right side. She denies of any headache. She denies of difficulty her words out. It seems it is felt she has problably conversion disorder and primary would like to admit patient to psychiatry unit. Nurse felt the patient examination was inconsistent and at time moving her right leg and able to pivot and at times cannot. Objective - Vital Signs Vital signs: Vital Signs Temp 98.2 F 05/18/21 04:00 Pulse 53 L 05/18/21 04:00 Resp 16 05/18/21 04:00 BP 101/77 05/18/21 04:00 Pulse Ox 98 05/18/21 00:00 Intake & Output 05/17/21 05/18/21 05/18/21 18:59 06:59 18:59 Intake Total 480 Output Total 0 0 Balance 0 480 Weight 74.6 kg Intake: Oral 480 Output: Urine 0 0 Other: Voiding Method Bedpan Bedpan # Voids 1 0 # Bowel Movements 1 - Exam GENERAL: The patient is lying in bed and is not in acute distress. NEUROLOGICAL: Higher mental function: The patient is awake, alert, oriented to self, place and time. Patient is following commands. No aphasia and no neglect. Cranial nerves: The pupils are round, equal and reactive to light. Visual moreno are full to confrontation throughout. Extraocular movement is intact no nystagmus is noted. Facial sensation is normal to touch throughout. The facial strength is normal throughout. Tongue is midline and moved [id number] without any difficulty. No dysarthria is noted. Shoulder shrug is normal bilaterally. Motor: Gait is deferred. The strength is inconsistent over the entire right side. She said she could not pickle processor her right arm above gravity and states she has significant weakness. But with motivation she was able to have antigravity movement over the right side but was inconsistent. Upon lifting arm above gravity and placing ontop of head it would drop to side rather than over her head. Left side is 5/5. Normal tone and bulk. Cerebellum: Normal finger to nose heel to heredia over left and unable to assess right. Sensation: Sensation is decreased to touch over the right upper but normal over the right lower. Otherwise normal over left to touch. Reflexes (right/left): 2+ throughout. Plantars are downgoing bilaterally. WORK-UP: Steele virus PCR was not detected. Lipid panel is triglyceride of 378, cholesterol is 282, LDLs 145 and HDL 60. AST of 39 and ALT is 22 Computed tomography scan of head showed no acute intracranial abnormality. CTA of head and neck reported negative. - Labs CBC & Chem 7: 05/16/21 22:05 05/18/21 06:31 Labs: Abnormal Lab Results - Last 24 Hours (Table) 05/16/21 05/18/21 Range/Units 22:05 06:31 Chloride 112 H (98-107) mmol/L BUN 29 H (7-17) mg/dL Glucose 101 H (74-99) mg/dL Alkaline Phosphatase 199 H (38-126) U/L Triglycerides 378.00 H (0.00-149.00) mg/dL Cholesterol 282.00 H (0.00-200.00) mg/dL LDL Cholesterol, Calc 145.5 H (0.0-131.0) mg/dL VLDL Cholesterol, Calc 75.60 H (5.00-40.00) mg/dL HDL Cholesterol 60.90 H (40.00-60.00) mg/dL Assessment and Plan Assessment: * 55-year-old female admitted with acute right hemiparesis, only involving the arm and leg (and on examination would somewhat improve with motivation). Patient has previously been admitted to the hospital with similar presentation and a negative MRI, was diagnosed with probable conversion disorder. * History of nonepileptic seizures. * Dyslipidemia * History of colon cancer, currently in remission * History of syncope in the past. Plan: * MRI of the brain rule out CVA is pending. * Repeat 24 hour post-TPA CT is reported as no acute abnormality. No change compared to last exam. I personally reviewed the CT of the head and there is no acute or subacute ischemia and there is no intra-parenchymal bleed. * Aspirin 325mg daily (was not on any antiplatelets at home) and Lipitor 40 mg daily at bedtime started by Dr. Soto for secondary stroke prophylaxis * Continue neuro checks. * PT, OT and CHARTER BUS DRIVER are consulted * Continue cardiac monitoring * Patient is on her home medication of Lamictal 200 mg 1 tablet twice a day and Topamax 50 mg 1 tablet twice a day * Psychiatry is consulted * Will defer the rest of medical management to the primary team. * For DVT prophylaxis: Started on subq heparin 5000U every 12 hours. * Upon discharge, recommend patient to follow-up with her neurologist (Dr. Reina's team) as outpatient within 1-2 weeks. Recommend patient to follow- up with Psychiatry team as outpatient as well. * If MRI Brain is negative for stroke/mass then patient is clear for discharge from neurologist perspective. The plan is discussed with the patient's nurse. Javon Hernandez M.D. Neuro-Hospitalist Time with Patient: Less than 30
[2021-05-18] MEDS: HEPARIN SODIUM,PORCINE/PF 5,000 UNIT/0.5 ML SYRINGE SQ SCH ×2 (14:14→19:54)
[2021-05-18] MEDS ORDERED: traZODone HCL 50 MG TAB PO PRN (15:01)
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
[2021-05-18] MEDS ORDERED: ACETAMINOPHEN TAB 500 MG TAB PO PRN (15:25)
[2021-05-18] MEDS: clonazePAM 0.5 MG TAB PO PRN (20:10)
[2021-05-18] MEDS ORDERED: ATORVASTATIN 40 MG TAB PO SCH (21:00)
[2021-05-19 07:39] VITALS: BP 119/76; PULSE 82; RESP 17; TEMP 98.6
[2021-05-19] MEDS: PANTOPRAZOLE 40 MG/10 ML VIAL IVP SCH (08:03)
[2021-05-19] MEDS: TOPIRAMATE 25 MG TAB PO SCH (08:04)
[2021-05-19] MEDS: ASPIRIN 325 MG TAB PO SCH (08:04)
[2021-05-19] MEDS: lamoTRIgine 100 MG TAB PO SCH (08:04)
[2021-05-19] MEDS: HEPARIN SODIUM,PORCINE/PF 5,000 UNIT/0.5 ML SYRINGE SQ SCH (08:07)
[2021-05-19] MEDS: clonazePAM 0.5 MG TAB PO PRN (08:09)
--- NOTE | 2021-05-19 11:11 | MR ---
EXAMINATION TYPE: MR brain wo con DATE OF EXAM: 05/19/2021 COMPARISON: Prior MRI brain February 14, 2020. Most recent CT brain 2 days ago. HISTORY: Right-sided weakness status post TPA TECHNIQUE: Multiplanar, multisequence imaging of the brain and brainstem is performed without IV cont rast. FINDINGS: Diffusion weighted images demonstrate no evidence of a recent infarct or other diffusion abnormality. There is no extraaxial fluid collection or significant white matter signal abnormality. The ventricu lar system and cisternal spaces are normal in size and appearance. The brain volume is age appropria te. Midline structures demonstrate normal morphology. The craniocervical junction appears within normal limits. Normal vascular flow voids are present. The visualized sinuses are clear and the globes are i ntact. Nasal septum is deviated to right of midline. IMPRESSION: No MRI evidence for recent infarct. No significant change from prior MRI.
--- NOTE | 2021-05-19 11:24 | P.PN ---
Subjective Progress Note Date: 05/19/21 The patient is seen at bedside and she states she continues to have weakness over the right side but feels there is improvement. She denies of any worsening of her condition. Per the nurse her examination is inconsistent. Patient wants to go home and refusing rehab. Objective - Vital Signs Vital signs: Vital Signs Temp 98.6 F 05/19/21 07:38 Pulse 82 05/19/21 07:38 Resp 17 05/19/21 09:21 BP 119/76 05/19/21 07:38 Pulse Ox 99 05/19/21 07:38 Intake & Output 05/18/21 05/19/21 05/19/21 18:59 06:59 18:59 Intake Total 240 250 Output Total 300 1 Balance -60 -1 250 Intake: IV 10 Invasive Line 2 10 Oral 240 240 Output: Urine 300 1 Other: Voiding Method Bedside Commode Bedside Commode - Exam GENERAL: The patient is lying in bed and is not in acute distress. NEUROLOGICAL: Higher mental function: The patient is awake, alert, oriented to self, place and time. Patient is following commands. No aphasia and no neglect. Cranial nerves: The pupils are round, equal and reactive to light. Visual moreno are full to confrontation throughout. Extraocular movement is intact no nystagmus is noted. Facial sensation is normal to touch throughout. The facial strength is normal throughout. Tongue is midline and moved [id number] without any difficulty. No dysarthria is noted. Shoulder shrug is normal bilaterally. Motor: Gait is deferred. The strength is inconsistent over the entire right side. She said she could not hop picker her right arm above gravity and states she has significant weakness. But with motivation she was able to have antigravity movement over the right side but was inconsistent. Upon lifting arm above gravity and placing ontop of head it would drop to side rather than over her head. Left side is 5/5. Normal tone and bulk. Cerebellum: Normal finger to nose heel to heredia over left and unable to assess right. Sensation: Sensation is decreased to touch over the right upper but normal over the right lower. Otherwise normal over left to touch. Reflexes (right/left): 2+ throughout. Plantars are downgoing bilaterally. WORK-UP: Steele virus PCR was not detected. Lipid panel is triglyceride of 378, cholesterol is 282, LDLs 145 and HDL 60. AST of 39 and ALT is 22 Computed tomography scan of head showed no acute intracranial abnormality. CTA of head and neck reported negative. Repeat 24 hour post-TPA CT is reported as no acute abnormality. No change compared to last exam. I personally reviewed the CT of the head and there is no acute or subacute ischemia and there is no intra-parenchymal bleed. MRI Brain w/o: Is reported as no MRI evidence for recent infarct. No significant change from prior MRI. I personally reviewed the MRI agree with report. - Labs CBC & Chem 7: 05/16/21 22:05 05/18/21 06:31 Assessment and Plan Assessment: * 55-year-old female admitted with acute right hemiparesis, only involving the arm and leg (and on examination would somewhat improve with motivation). Patient has previously been admitted to the hospital with similar presentation and a negative MRI, was diagnosed with probable conversion disorder. On this admission he MRI Brain was also negative. This appears conversion vs factitious disorder. * History of nonepileptic seizures. * Dyslipidemia * History of colon cancer, currently in remission * History of syncope in the past. Plan: * MRI Brain w/o: Is reported as no MRI evidence for recent infarct. No significant change from prior MRI. I personally reviewed the MRI agree with report. * Aspirin 325mg daily (was not on any antiplatelets at home) and Lipitor 40 mg daily at bedtime started by Dr. Soto for secondary stroke prophylaxis * Continue neuro checks. * PT, OT and GOLD LAYER are consulted * Continue cardiac monitoring * Patient is on her home medication of Lamictal 200 mg 1 tablet twice a day and Topamax 50 mg 1 tablet twice a day * Psychiatry is consulted. They recommend mental health follow-up as outpatient. * Will defer the rest of medical management to the primary team. * For DVT prophylaxis:on subq heparin 5000U every 12 hours. * Upon discharge, recommend patient to follow-up with her neurologist (Dr. Reina's team) as outpatient within 1-2 weeks. Recommend patient to follow- up with Psychiatry team as outpatient as well. Recommend rehab therapy but patient has refused multiple time and wants to go home in which she has assistance from her mother. There is no further neurological work-up. The plan is discussed with the patient's nurse. Javon Hernandez M.D. Neuro-Hospitalist Time with Patient: Less than 30
--- NOTE | 2021-05-19 11:28 | P.PN ---
Subjective Progress Note Date: 05/19/21 Principal diagnosis: CVA. This is a 55-year-old female with history of multiple medical problems, patient is known to have history of pseudoseizures, fibromyalgia, colon cancer, presented yesterday to the ER with 1 hour symptoms of paralysis and numbness on the right side involving the right upper extremity and right lower extremity. Patient had negative findings on the CT of the brain and CT angiogram of the neck. Considering her presentation, patient was given TPA. Considering that the patient received TPA, she was admitted to the ICU, and I was asked to see her on consultation just mostly because she is in the ICU. Patient has no symptoms of side effects related to her TPA, she has no headache, no blurred vision, no dizziness, continues to have significant right-sided weakness involving right upper extremity and right lower extremity. Not much of a change compared to her presentation in spite of TPA. Patient is hemodynamically stable, and she is yet to be seen by neurology on consultation. During my evaluation, the patient had no symptoms except for persistent symptoms of weakness in the right upper extremity and right lower extremity. Considering t he patient history of pseudoseizures, I am just concerned that patient may not have true CVA symptoms. She is yet to be seen by neurology on consultation On 05/18/2021 patient is seen in follow-up in the intensive care unit, she is awake and alert, in no acute distress, she is oriented 3, answering questions appropriately. Patient is status post TPA infusion for acute CVA on 05/16/2021. On today's exam patient continues to have weakness in her right upper and right lower extremity and patient is unable to lift up her right arm or right leg off the bed. No facial weakness, no dysarthria, no difficulty swallowing, brain CT from 05/17/2021 showed no acute abnormality, no change compared to her last exam on 05/16/2021. Vital signs have been stable overnight, patient is breathing comfortably, she is room air, pulse ox is 98%, blood pressure is stable, 101/77 this morning, and patient is afebrile. Today's labs have been reviewed, her sodium is 141, potassium is 4.0, chloride is 112, B1 is 29, creatinine 0.89, alk phos is improved and is down to 199, AST and ALT were within normal limits at 29 and 23 respectively, patient's lipid profile showed triglyceride level of 378, cholesterol of 282, LDL is 145, VLDL was 75, and HDL was 60.9. Patient has been started on Lipitor 40 mg at bedtime, he has started on full dose aspirin 325 mg daily, subcu heparin 5000 units every 12 hours. She continues on her home meds with Lamictal, Topamax, and Klonopin. Progress note dated 05/19/2021. The patient was in the intensive care unit yesterday. She was transferred out to the room 350. The patient is currently in room 350. She is status post TPA infusion for acute CVA, on 05/16/2021. She's doing well. The patient does have some weakness in the right upper extremity in the right lower extremity. The patient is possibly going to be discharged home today. She's feeling well. She is on no supplemental oxygen. The patient is not receiving any IV fluids. No new labs today. The brain MRI from today, shows no evidence for recent infarct. Objective - Vital Signs Vital signs: Vital Signs Temp 98.6 F 05/19/21 07:38 Pulse 82 05/19/21 07:38 Resp 17 05/19/21 09:21 BP 119/76 05/19/21 07:38 Pulse Ox 99 05/19/21 07:38 Intake & Output 05/18/21 05/19/21 05/19/21 18:59 06:59 18:59 Intake Total 240 250 Output Total 300 1 Balance -60 -1 250 Intake: IV 10 Invasive Line 2 10 Oral 240 240 Output: Urine 300 1 Other: Voiding Method Bedside Commode Bedside Commode - Exam No acute distress, oriented 3. HEENT examination is grossly unremarkable. Neck supple. Full range of motion. No adenopathy thyromegaly or neck vein distention. Cardiovascular examination reveals regular rhythm rate. S1-S2 normal. No S3 or S4. No discernible murmur noted. Lungs reveal clear breath sounds. Breath sounds are equal bilaterally. No adventitious lung sounds including wheezes rhonchi or crackles. Abdomen soft bowel sounds are heard. No masses or tenderness. Extremities are intact. No cyanosis clubbing or edema. Skin is without rash or lesion. Neurologic examination reveals some mild weakness on the right upper and right lower extremity. - Labs CBC & Chem 7: 05/16/21 22:05 05/18/21 06:31 Assessment and Plan Assessment: Acute CVA, status post TPA. Persistent right-sided arm weakness and right leg weakness, unchanged. Hyperlipidemia. History of pseudoseizures. History of fibromyalgia. History of colon cancer with resection 2. Migraine cephalgia. History of anxiety and panic disorder. Lifelong nontobacco user. History of MRSA infection. Plan: Plan dated 05/19/2021. The patient will likely be discharged either today or tomorrow. She appears to be relatively stable. She's not requiring any supplemental oxygen. There is no IV fluids. Her right-sided exam is unchanged. We'll continue to follow. The patient is being followed by neurology. Brain MRI does not show any evidence of recent infarct. Time with Patient: Less than 30
== END 2021-05-19 11:58 | disposition home or self-care (01) | DRG 880 ==
LOC: EC 21:34 → 2SICU 22:31 → 3SCARD 05-18 15:47
PROVIDERS: ADMIT Family Medicine; ATTEND Family Medicine
DX: F44.7 Conversion disorder with mixed symptom presentation (principal); G81.91 Hemiplegia, unspecified affecting right dominant side; I45.2 Bifascicular block; F41.0 Panic disorder [episodic paroxysmal anxiety]; G40.409 Other generalized epilepsy and epileptic syndromes, not intractable, without status epilepticus; G43.909 Migraine, unspecified, not intractable, without status migrainosus; G89.29 Other chronic pain; H54.7 Unspecified visual loss; I44.0 Atrioventricular block, first degree; G47.00 Insomnia, unspecified; I67.1 Cerebral aneurysm, nonruptured; M79.7 Fibromyalgia; R29.708 NIHSS score 8; E78.5 Hyperlipidemia, unspecified; Z85.038 Personal history of other malignant neoplasm of large intestine; D64.9 Anemia, unspecified; Z79.82 Long term (current) use of aspirin; Z79.899 Other long term (current) drug therapy; Z86.14 Personal history of Methicillin resistant Staphylococcus aureus infection; Z90.710 Acquired absence of both cervix and uterus; Z90.49 Acquired absence of other specified parts of digestive tract; Z98.890 Other specified postprocedural states; L40.9 Psoriasis, unspecified; L74.8 Other eccrine sweat disorders; Z20.822 Contact with and (suspected) exposure to COVID-19; Z91.51 Personal history of suicidal behavior; K44.9 Diaphragmatic hernia without obstruction or gangrene; Z88.1 Allergy status to other antibiotic agents; Z88.5 Allergy status to narcotic agent; Z88.0 Allergy status to penicillin; Z88.8 Allergy status to other drugs, medicaments and biological substances; Z87.01 Personal history of pneumonia (recurrent)
CPT/HCPCS: 36415; 37195; 70450; 70496; 70498; 70551; 71045; 80053; 80061; 83735; 84484; 85025; 85610; 85730; 87635; 93005; 96361; 96374; 96375; 99291

== ENCOUNTER → 2021-06-12 | Outpatient (CLI) | payer OTHER | END | disposition home or self-care (01) | LOC: RADCTMAIN 11:54 | PROVIDERS: ATTEND Internal Medicine Hematology & Oncology | DX: Z53.9 Procedure and treatment not carried out, unspecified reason (principal) ==

== ENCOUNTER → 2021-06-19 | Outpatient (CLI) | payer OTHER ==
--- NOTE | 2021-06-19 09:42 | CT ---
EXAMINATION TYPE: CT ChestAbdPelvis w con DATE OF EXAM: 06/19/2021 COMPARISON: 04/12/2021 and 06/12/2020 HISTORY: 55-year-old female C18.2 colon ca, Z03.89 suspect mets TECHNIQUE: Contiguous axial scanning of the chest, abdomen, and pelvis performed with IV Contrast, pa tient injected with 100 mL of Isovue 300. Delayed images through the kidneys were obtained. Coronal/s agittal reconstructions performed. CT DLP: 1736 mGycm Automated exposure control for dose reduction was used. FINDINGS: CHEST: Heart is upper limits of normal in size without pericardial effusion. Aorta normal caliber with conventional arch vessel branching anatomy. Right anterior chest wall injection port with catheter tip at the mid SVC. Lower right paratracheal n odes measure up to 8 mm. No thoracic lymphadenopathy by CT size criteria. A couple 4 mm pulmonary nodules in the right lung are unchanged. No consolidation or pleural effusion . ABDOMEN: No focal liver lesion or biliary ductal dilatation. Portal venous system is patent. Cholecystectomy clips. Adrenal glands, spleen, and pancreas within normal limits. Kidneys show bilateral extrarenal pelves but with symmetric uptake and excretion of contrast bilatera lly. Cholecystectomy clips. Postsurgical change of partial right hemicolectomy with ileocolonic anastomosis near the hepatic flex ure of the colon. There is mild stool burden. Mild sigmoid diverticulosis. Chronic inflammatory change. No mesenteric or retroperitoneal lymphadenopathy. No dilated small bowel, free fluid, or free air. PELVIS: Bladder under distended. Uterus surgically absent. Pelvic phleboliths. No abnormal fluid collection i n the pelvis or pelvic lymphadenopathy. BONES: Multilevel moderate degenerative change of the hips. Facet arthropathy lower lumbar spine. No osseous destructive process. IMPRESSION: 1. PREVIOUS PARTIAL RIGHT HEMICOLECTOMY WITH ILEOCOLONIC ANASTOMOSIS AT THE HEPATIC FLEXURE OF THE CO PAMELA. A COUPLE 4 MM PULMONARY NODULES IN THE RIGHT LUNG ARE UNCHANGED. NO EVIDENCE FOR RECURRENT/METAS TATIC DISEASE. 2. SIGMOID DIVERTICULOSIS WITHOUT ACUTE DIVERTICULITIS.
== END | disposition home or self-care (01) ==
LOC: RADCTMAIN 08:00
PROVIDERS: ATTEND Internal Medicine Hematology & Oncology
DX: C18.2 Malignant neoplasm of ascending colon (principal); R91.8 Other nonspecific abnormal finding of lung field; K57.30 Diverticulosis of large intestine without perforation or abscess without bleeding
CPT/HCPCS: 71260; 74177; Q9967

== ENCOUNTER 2021-06-30 02:29 | Emergency (ER) | payer OTHER ==
[2021-06-30 02:41] VITALS: RESP 18; TEMP 97.9
[2021-06-30] MEDS ORDERED: diphenhydrAMINE 50 MG/ML 1 ML VIAL IVP STA (03:38)
[2021-06-30] MEDS ORDERED: HYDROmorphone 1 MG/ML 1 ML SYRINGE IVP STA (03:38)
[2021-06-30] MEDS ORDERED: SODIUM CHLORIDE 0.9% 1,000 ML IV STA (03:38)
[2021-06-30 03:49] LABS: Basophils % (A) 0 %; Eosinophils # (A) 0.1 k/uL (0-0.7); Eosinophils % (A) 1 %; HCT 34.1 % (34.0-46.0); Lymphocytes # (A) 2.4 k/uL (1.0-4.8); Lymphocytes % (A) 32 %; MCH 28.5 pg (25.0-35.0); MCHC 32.2 g/dL (31.0-37.0); MCV 88.5 fL (80.0-100.0); Mean Platelet Volume 7.5; Monocytes # (A) 0.3 k/uL (0-1.0); Monocytes % (A) 4 %; Neutrophils # (A) 4.5 k/uL (1.3-7.7); Neutrophils % (A) 61 %; Platelet Count 299 k/uL (150-450); RBC 3.85 m/uL (3.80-5.40); RDW 14.3 % (11.5-15.5); WBC 7.5 k/uL (3.8-10.6)
--- NOTE | 2021-06-30 03:50 | ED ---
Abdominal Pain HPI - General Chief Complaint: Abdominal Pain Stated Complaint: Abd Pain Time Seen by Provider: 06/30/21 02:39 Source: patient, RN notes reviewed, old records reviewed, Caregiver Mode of arrival: EMS Limitations: no limitations - History of Present Illness Initial Comments: This is a 55-year-old female well-known to facility. Patient resents today for evaluation of abdominal pain generalized body aches and pains history of GI cancer. Patient states she is always had kind of phantom cancer pain. Pain is uncontrolled on outpatient basis family being her parents are here with her in the ER very upset over patient's condition. Patient has no nausea no vomiting no fevers. Pain is chronic in nature MD Complaint: abdominal pain -: days(s) Location: diffuse, periumbilical Radiation: none Migration to: no migration Severity: severe Severity scale (1-10): 10 Quality: fullness, sharp Consistency: constant Improves With: nothing Worsens With: nothing Context: recent surgery/procedure (Old history of surgery) Associated Symptoms: nausea, vomiting - Related Data Home Medications Medication Instructions Recorded Confirmed lamoTRIgine [LaMICtal] 200 mg PO BID 09/26/18 05/16/21 Topiramate 50 mg PO BID 12/19/19 05/16/21 Previous Rx's Medication Instructions Recorded Famotidine [Pepcid AC] 10 mg PO BID #1 tablet 05/18/21 clonazePAM [KlonoPIN] 0.5 mg PO TID PRN tab 05/18/21 traZODone HCL [Desyrel] 25 mg PO HS PRN #5 tab 05/18/21 Allergies Allergy/AdvReac Type Severity Reaction Status Date / Time erythromycin base Allergy Rash/Hives Verified 07/26/21 19:58 gadobutrol [From Gadavist] Allergy Anaphylaxis Verified 07/26/21 19:58 Gadolinium-Containing Allergy Anaphylaxis Verified 07/26/21 19:58 Contrast Medi iodine Allergy Anaphylaxis Verified 07/26/21 19:58 ketorolac tromethamine Allergy Rash/Hives/ Verified 07/26/21 19:58 [From Toradol] hallucinati ons Penicillins Allergy Anaphylaxis Verified 07/26/21 19:58 azithromycin AdvReac red face Verified 07/26/21 19:58 lorazepam [From Ativan] AdvReac Hallucinati Verified 07/26/21 19:58 ons Review of Systems ROS Statement: Those systems with pertinent positive or pertinent negative responses have been documented in the HPI. ROS Other: All systems not noted in ROS Statement are negative. 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 BLOOD TRANSFUSIONS FOR LOW HGB. History of Any Multi-Drug Resistant Organisms: MRSA Date of last positivie culture/infection: 08/10/19 MDRO Source:: URINE Past Surgical History: Appendectomy, Bowel Resection, Cholecystectomy, Ear Surgery, Hysterectomy, Orthopedic Surgery Additional Past Surgical History / Comment(s): frantz knee arthroscopy, hiatal hernia surgery, rt ear surgery to remove middle ear, lymph node biopsy right armpit. loop recorder Past Anesthesia/Blood Transfusion Reactions: Postoperative Nausea & Vomiting (PONV) Additional Past Anesthesia/Blood Transfusion Reaction / Comment(s): Pt has received blood in past without reaction. Past Psychological History: Anxiety, Panic Disorder Smoking Status: Never smoker Past Alcohol Use History: Rare Past Drug Use History: None Reported - Past Family History Mother Family Medical History: No Reported History Additional Family Medical History / Comment(s): . Father Family Medical History: No Reported History Additional Family Medical History / Comment(s): Father is healthy General Exam General appearance: alert, in no apparent distress Head exam: Present: atraumatic, normocephalic, normal inspection Eye exam: Present: normal appearance, PERRL, EOMI. Absent: scleral icterus, conjunctival injection, periorbital swelling ENT exam: Present: normal exam, mucous membranes moist Neck exam: Present: normal inspection. Absent: tenderness, meningismus, lymphadenopathy Respiratory exam: Present: normal lung sounds bilaterally. Absent: respiratory distress, wheezes, rales, rhonchi, stridor Cardiovascular Exam: Present: regular rate, normal rhythm, normal heart sounds. Absent: systolic murmur, diastolic murmur, rubs, gallop, clicks GI/Abdominal exam: Present: soft, normal bowel sounds. Absent: distended, tenderness, guarding, rebound, rigid Extremities exam: Present: normal inspection, full ROM, normal capillary refill. Absent: tenderness, pedal edema, joint swelling, calf tenderness Back exam: Present: normal inspection Neurological exam: Present: alert, oriented X3, CN II-XII intact Psychiatric exam: Present: normal affect, normal mood Skin exam: Present: warm, dry, intact, normal color. Absent: rash Course Vital Signs 06/30/21 06/30/21 02:36 04:11 Temperature 97.9 F Pulse Rate 92 76 Respiratory 18 18 Rate Blood Pressure 142/124 134/48 O2 Sat by Pulse 99 95 Oximetry - Reevaluation(s) Reevaluation #1: 07/01/2021 Medical record is reviewed Patient symptoms are improved here in the ER Patient informed results questions are answered Medical Decision Making - Medical Decision Making 55 female with acute on chronic abdominal pain requesting pain medication. Patient given pain control here in the ER and currently feels better and can be discharged home - Lab Data Result diagrams: 06/30/21 03:00 06/30/21 03:00 Lab Results 06/30/21 06/30/21 Range/Units 03:00 03:00 WBC 7.5 (3.8-10.6) k/uL RBC 3.85 (3.80-5.40) m/uL Hgb 11.0 L (11.4-16.0) gm/dL Hct 34.1 (34.0-46.0) % MCV 88.5 (80.0-100.0) fL MCH 28.5 (25.0-35.0) pg MCHC 32.2 (31.0-37.0) g/dL RDW 14.3 (11.5-15.5) % Plt Count 299 (150-450) k/uL MPV 7.5 Neutrophils % 61 % Lymphocytes % 32 % Monocytes % 4 % Eosinophils % 1 % Basophils % 0 % Neutrophils # 4.5 (1.3-7.7) k/uL Lymphocytes # 2.4 (1.0-4.8) k/uL Monocytes # 0.3 (0-1.0) k/uL Eosinophils # 0.1 (0-0.7) k/uL Basophils # 0.0 (0-0.2) k/uL Sodium 139 (137-145) mmol/L Potassium 3.8 (3.5-5.1) mmol/L Chloride 108 H (98-107) mmol/L Carbon Dioxide 21 L (22-30) mmol/L Anion Gap 10 mmol/L BUN 28 H (7-17) mg/dL Creatinine 0.84 (0.52-1.04) mg/dL Est GFR (CKD-EPI)AfAm >90 (>60 ml/min/1.73 sqM) Est GFR (CKD-EPI)NonAf 78 (>60 ml/min/1.73 sqM) Glucose 93 (74-99) mg/dL Calcium 9.1 (8.4-10.2) mg/dL Total Bilirubin 0.3 (0.2-1.3) mg/dL AST 28 (14-36) U/L ALT 14 (4-34) U/L Alkaline Phosphatase 193 H (38-126) U/L Total Protein 6.7 (6.3-8.2) g/dL Albumin 3.8 (3.5-5.0) g/dL Amylase 73 (30-110) U/L Lipase 121 (23-300) U/L Disposition Clinical Impression: Abdominal pain Disposition: HOME SELF-CARE Condition: Good Instructions (If sedation given, give patient instructions): Abdominal Pain (ED) Is patient prescribed a controlled substance at d/c from ED?: No Referrals: Scott Medrano MD [Primary Care Provider] - 1-2 days
[2021-06-30] MEDS ORDERED: ONDANSETRON 4 MG/2 ML VIAL IVP STA (03:52)
[2021-06-30 04:13] VITALS: BP 134/48; PULSE 76
[2021-06-30 04:14] LABS: ALT 14 U/L (4-34); AST 28 U/L (14-36); African American GFR (CKD) >90 (>60 ml/min/1.73 sqM); Albumin 3.8 g/dL (3.5-5.0); Alkaline Phosphatase 193 U/L (38-126); Amylase 73 U/L (30-110); Anion Gap 10 mmol/L; Blood Urea Nitrogen 28 mg/dL (7-17); Calcium 9.1 mg/dL (8.4-10.2); Carbon Dioxide 21 mmol/L (22-30); Chloride 108 mmol/L (98-107); Glucose 93 mg/dL (74-99); Lipase 121 U/L (23-300); Non-African American GFR(CKD) 78 (>60 ml/min/1.73 sqM); Potassium 3.8 mmol/L (3.5-5.1); Sodium 139 mmol/L (137-145); Total Bilirubin 0.3 mg/dL (0.2-1.3); Total Protein 6.7 g/dL (6.3-8.2)
== END 2021-06-30 05:02 | disposition home or self-care (01) ==
LOC: EC 02:29
DX: R10.84 Generalized abdominal pain (principal); G40.909 Epilepsy, unspecified, not intractable, without status epilepticus; F41.9 Anxiety disorder, unspecified; M79.7 Fibromyalgia; Z79.899 Other long term (current) drug therapy
CPT/HCPCS: 36415; 80053; 82150; 83690; 85025; 99284; 96374; 96375; J2405; J1170; J1790

== ENCOUNTER 2021-07-26 19:50 | Emergency (ER) | payer OTHER ==
[2021-07-26] MEDS ORDERED: DIAZEPAM 5 MG/ML 2 ML INJ IVP STA (20:15)
[2021-07-26 20:30] LABS: Basophils % (A) 0 %; Eosinophils # (A) 0.1 k/uL (0-0.7); Eosinophils % (A) 1 %; HCT 38.2 % (34.0-46.0); HGB 12.4 gm/dL (11.4-16.0); Lymphocytes # (A) 1.9 k/uL (1.0-4.8); Lymphocytes % (A) 22 %; MCH 28.1 pg (25.0-35.0); MCHC 32.3 g/dL (31.0-37.0); Mean Platelet Volume 7.5; Monocytes # (A) 0.3 k/uL (0-1.0); Monocytes % (A) 3 %; Neutrophils # (A) 6.5 k/uL (1.3-7.7); Neutrophils % (A) 73 %; Platelet Count 336 k/uL (150-450); RBC 4.39 m/uL (3.80-5.40); RDW 14.3 % (11.5-15.5); WBC 8.9 k/uL (3.8-10.6)
[2021-07-26 20:45] LABS: INR 0.9 (<1.2); Partial Thromboplastin Time 23.9 sec (22.0-30.0); Prothrombin Time 9.9 sec (9.0-12.0)
[2021-07-26 21:06] LABS: Albumin 4.2 g/dL (3.5-5.0); Calcium 9.2 mg/dL (8.4-10.2); Potassium 3.9 mmol/L (3.5-5.1); Total Bilirubin 0.5 mg/dL (0.2-1.3); Total Protein 7.8 g/dL (6.3-8.2)
--- NOTE | 2021-07-26 21:09 | ED ---
General Adult HPI - General Chief complaint: Neuro Symptoms/Deficit Stated complaint: Seizure Time Seen by Provider: 07/26/21 20:07 Source: patient, RN notes reviewed, old records reviewed Mode of arrival: ambulatory Limitations: no limitations - History of Present Illness Initial comments: 55-year-old female presents for evaluation of tremor, anxiety. Symptoms have been present for the past 24 hours. She was discontinued from her clonazepam approximately 5 days ago. She is accompanied by her mother and father who state that she's had tremor, anxiety generalize shaking for the past approximately 24 hours. She did take a Xanax as well as melatonin without significant improvement. No vomiting. No fever. No chest pain. No focal numbness or weakness. - Related Data Home Medications Medication Instructions Recorded Confirmed lamoTRIgine [LaMICtal] 200 mg PO BID 09/26/18 05/16/21 Topiramate 50 mg PO BID 12/19/19 05/16/21 Previous Rx's Medication Instructions Recorded Famotidine [Pepcid AC] 10 mg PO BID #1 tablet 05/18/21 clonazePAM [KlonoPIN] 0.5 mg PO TID PRN tab 05/18/21 traZODone HCL [Desyrel] 25 mg PO HS PRN #5 tab 05/18/21 Allergies Allergy/AdvReac Type Severity Reaction Status Date / Time erythromycin base Allergy Rash/Hives Verified 07/26/21 19:58 gadobutrol [From Gadavist] Allergy Anaphylaxis Verified 07/26/21 19:58 Gadolinium-Containing Allergy Anaphylaxis Verified 07/26/21 19:58 Contrast Medi iodine Allergy Anaphylaxis Verified 07/26/21 19:58 ketorolac tromethamine Allergy Rash/Hives/ Verified 07/26/21 19:58 [From Toradol] hallucinati ons Penicillins Allergy Anaphylaxis Verified 07/26/21 19:58 azithromycin AdvReac red face Verified 07/26/21 19:58 lorazepam [From Ativan] AdvReac Hallucinati Verified 07/26/21 19:58 ons Review of Systems ROS Statement: Those systems with pertinent positive or pertinent negative responses have been documented in the HPI. ROS Other: All systems not noted in ROS Statement are negative. 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 BLOOD TRANSFUSIONS FOR LOW HGB. History of Any Multi-Drug Resistant Organisms: MRSA Date of last positivie culture/infection: 08/10/19 MDRO Source:: URINE Past Surgical History: Appendectomy, Bowel Resection, Cholecystectomy, Ear Surgery, Hysterectomy, Orthopedic Surgery Additional Past Surgical History / Comment(s): frantz knee arthroscopy, hiatal hernia surgery, rt ear surgery to remove middle ear, lymph node biopsy right armpit. loop recorder Past Anesthesia/Blood Transfusion Reactions: Postoperative Nausea & Vomiting (PONV) Additional Past Anesthesia/Blood Transfusion Reaction / Comment(s): Pt has received blood in past without reaction. Past Psychological History: Anxiety, Panic Disorder Smoking Status: Never smoker Past Alcohol Use History: Rare Past Drug Use History: None Reported - Past Family History Mother Family Medical History: No Reported History Additional Family Medical History / Comment(s): . Father Family Medical History: No Reported History Additional Family Medical History / Comment(s): Father is healthy General Exam Limitations: no limitations General appearance: alert, anxious Head exam: Present: atraumatic, normocephalic Eye exam: Present: normal appearance, PERRL ENT exam: Present: normal exam Neck exam: Present: normal inspection. Absent: tenderness, meningismus Respiratory exam: Present: normal lung sounds bilaterally. Absent: respiratory distress, wheezes Cardiovascular Exam: Present: regular rate, normal rhythm GI/Abdominal exam: Present: soft. Absent: distended, tenderness Extremities exam: Present: normal inspection, normal capillary refill. Absent: pedal edema Neurological exam: Present: alert, oriented X3, CN II-XII intact, other (Tremor). Absent: motor sensory deficit Psychiatric exam: Present: anxious Skin exam: Present: warm, dry, intact. Absent: cyanosis, diaphoretic Course Vital Signs 07/26/21 07/26/21 07/26/21 19:53 20:13 21:37 Temperature 97.8 F Pulse Rate 85 92 76 Respiratory 20 20 18 Rate Blood Pressure 177/78 131/88 168/83 O2 Sat by Pulse 97 98 97 Oximetry EKG Findings - EKG Comments: EKG Findings:: EKG: Sinus rhythm with first-degree AV block, right bundle branch block, left anterior fascicular block, similar appearance to previous EKG obtained in May 2021. She has a ventricular rate 93, MA interval 221, QRS duration 158, QTC 444. Medical Decision Making - Medical Decision Making 55-year-old female presenting with tremor. Patient is able to speak, she has no focal findings. She has history of stress-induced seizures and is been on Klonopin for many years. She has not had this medication the past several days. I discussed case with the primary care physician Dr. Medrano who states that the patient's medication came be refilled on the of this month which is 3 days from now. This is 27 days after her last refill of 90 tablets. He is u [facility] where the additional medication and gone whether have been lost or misplaced. Patient does have Xanax at home which was prescribed by different provider and she has been taking this medication. She has normal laboratories testing. After Valium in the emergency department her symptoms significantly improve. She is instructed to take the Xanax that she has at home until her Klonopin can be refilled in 3 days. Return parameters are discussed. The patient also will discuss with the primary care physician regarding potentially weaning this medication. - Lab Data Result diagrams: 07/26/21 20:21 07/26/21 20:21 Lab Results 07/26/21 07/26/21 07/26/21 Range/Units 20:21 20:21 20:21 WBC 8.9 (3.8-10.6) k/uL RBC 4.39 (3.80-5.40) m/uL Hgb 12.4 (11.4-16.0) gm/dL Hct 38.2 (34.0-46.0) % MCV 87.0 (80.0-100.0) fL MCH 28.1 (25.0-35.0) pg MCHC 32.3 (31.0-37.0) g/dL RDW 14.3 (11.5-15.5) % Plt Count 336 (150-450) k/uL MPV 7.5 Neutrophils % 73 % Lymphocytes % 22 % Monocytes % 3 % Eosinophils % 1 % Basophils % 0 % Neutrophils # 6.5 (1.3-7.7) k/uL Lymphocytes # 1.9 (1.0-4.8) k/uL Monocytes # 0.3 (0-1.0) k/uL Eosinophils # 0.1 (0-0.7) k/uL Basophils # 0.0 (0-0.2) k/uL PT 9.9 (9.0-12.0) sec INR 0.9 (<1.2) APTT 23.9 (22.0-30.0) sec Sodium 141 (137-145) mmol/L Potassium 3.9 (3.5-5.1) mmol/L Chloride 110 H (98-107) mmol/L Carbon Dioxide 24 (22-30) mmol/L Anion Gap 7 mmol/L BUN 16 (7-17) mg/dL Creatinine 0.96 (0.52-1.04) mg/dL Est GFR (CKD-EPI)AfAm 77 (>60 ml/min/1.73 sqM) Est GFR (CKD-EPI)NonAf 67 (>60 ml/min/1.73 sqM) Glucose 111 H (74-99) mg/dL Calcium 9.2 (8.4-10.2) mg/dL Magnesium 2.0 (1.6-2.3) mg/dL Total Bilirubin 0.5 (0.2-1.3) mg/dL AST 26 (14-36) U/L ALT 15 (4-34) U/L Alkaline Phosphatase 242 H (38-126) U/L Total Protein 7.8 (6.3-8.2) g/dL Albumin 4.2 (3.5-5.0) g/dL Urine Color Urine Appearance (Clear) Urine pH (5.0-8.0) Ur Specific [place] (1.001-1.035) Urine Protein (Negative) Urine Glucose (UA) (Negative) Urine Ketones (Negative) Urine Blood (Negative) Urine Nitrite (Negative) Urine Bilirubin (Negative) Urine Urobilinogen (<2.0) mg/dL Ur Leukocyte Esterase (Negative) Urine RBC (0-5) /hpf Urine WBC (0-5) /hpf Ur Squamous Epith Cells (0-4) /hpf Amorphous Sediment (None) /hpf Hyaline Casts (0-2) /lpf Urine Mucus (None) /hpf 04/24/22 Range/Units 21:30 WBC (3.8-10.6) k/uL RBC (3.80-5.40) m/uL Hgb (11.4-16.0) gm/dL Hct (34.0-46.0) % MCV (80.0-100.0) fL MCH (25.0-35.0) pg MCHC (31.0-37.0) g/dL RDW (11.5-15.5) % Plt Count (150-450) k/uL MPV Neutrophils % % Lymphocytes % % Monocytes % % Eosinophils % % Basophils % % Neutrophils # (1.3-7.7) k/uL Lymphocytes # (1.0-4.8) k/uL Monocytes # (0-1.0) k/uL Eosinophils # (0-0.7) k/uL Basophils # (0-0.2) k/uL PT (9.0-12.0) sec INR (<1.2) APTT (22.0-30.0) sec Sodium (137-145) mmol/L Potassium (3.5-5.1) mmol/L Chloride (98-107) mmol/L Carbon Dioxide (22-30) mmol/L Anion Gap mmol/L BUN (7-17) mg/dL Creatinine (0.52-1.04) mg/dL Est GFR (CKD-EPI)AfAm (>60 ml/min/1.73 sqM) Est GFR (CKD-EPI)NonAf (>60 ml/min/1.73 sqM) Glucose (74-99) mg/dL Calcium (8.4-10.2) mg/dL Magnesium (1.6-2.3) mg/dL Total Bilirubin (0.2-1.3) mg/dL AST (14-36) U/L ALT (4-34) U/L Alkaline Phosphatase (38-126) U/L Total Protein (6.3-8.2) g/dL Albumin (3.5-5.0) g/dL Urine Color Yellow Urine Appearance Clear (Clear) Urine pH 6.5 (5.0-8.0) Ur Specific [place] 1.014 (1.001-1.035) Urine Protein Negative (Negative) Urine Glucose (UA) Negative (Negative) Urine Ketones Negative (Negative) Urine Blood Negative (Negative) Urine Nitrite Negative (Negative) Urine Bilirubin Negative (Negative) Urine Urobilinogen <2.0 (<2.0) mg/dL Ur Leukocyte Esterase Small H (Negative) Urine RBC 4 (0-5) /hpf Urine WBC 21 H (0-5) /hpf Ur Squamous Epith Cells 1 (0-4) /hpf Amorphous Sediment Occasional H (None) /hpf Hyaline Casts 4 H (0-2) /lpf Urine Mucus Rare H (None) /hpf Disposition Clinical Impression: Benzodiazepine dependence Disposition: HOME SELF-CARE Condition: Fair Instructions (If sedation given, give patient instructions): Tremors (ED) Is patient prescribed a controlled substance at d/c from ED?: No Referrals: Scott Medrano MD [Primary Care Provider] - 1-2 days Time of Disposition: 22:38
[2021-07-26 21:42] VITALS: RESP 18
[2021-07-26 22:14] LABS: Amorphous Sediment,Urine Occasional /hpf; Appearance,Urine Clear (Clear); Bilirubin,Urine Negative (Negative); Blood,Urine Negative (Negative); Color,Urine Yellow; Glucose,Urine (UA) Negative (Negative); Hyaline Casts,Urine 4 /lpf (0-2); Ketones,Urine Negative (Negative); Leukocyte Esterase,Urine Small (Negative); Mucus,Urine Rare /hpf; Nitrite,Urine Negative (Negative); PH, Urine 6.5 (5.0-8.0); Protein,Urine Negative (Negative); RBC,Urine 4 /hpf (0-5); Specific Gravity,Urine 1.014 (1.001-1.035); Squamous Epithelial Cell,Urine 1 /hpf (0-4); Urobilinogen,Urine <2.0 mg/dL (<2.0); WBC,Urine 21 /hpf (0-5)
[2021-07-26 23:09] VITALS: BP 168/88; PULSE 73; TEMP 98.7
== END 2021-07-26 23:16 | disposition home or self-care (01) ==
LOC: EC 19:50
DX: F13.20 Sedative, hypnotic or anxiolytic dependence, uncomplicated (principal); G40.909 Epilepsy, unspecified, not intractable, without status epilepticus; F41.9 Anxiety disorder, unspecified; M79.7 Fibromyalgia; Z79.899 Other long term (current) drug therapy
CPT/HCPCS: 36415; 93005; 80053; 83735; 85025; 85610; 85730; 81001; 87086; 99285; 96374; J3360

== ENCOUNTER 2021-08-06 00:59 | Emergency (ER) | payer OTHER ==
[2021-08-06] MEDS ORDERED: LORazepam 2 MG/ML INJ IV STA (01:09)
[2021-08-06] MEDS ORDERED: SODIUM CHLORIDE 0.9% 500 ML 500 ML IV STA (01:09)
[2021-08-06 01:11] VITALS: RESP 18; TEMP 98.2
--- NOTE | 2021-08-06 01:14 | ED ---
General Adult HPI - General Chief complaint: Recheck/Abnormal Lab/Rx Stated complaint: Withdraws Time Seen by Provider: 08/06/21 01:01 Source: EMS, RN notes reviewed Mode of arrival: EMS Limitations: no limitations - History of Present Illness Initial comments: This is a 55-year-old female with a history of seizure disorder. Patient also has anxiety. Patient states she has tremors and seizure like activity today prior to coming in. Patient stating that she believes its due to benzodiazepine withdrawal as she takes both Xanax and Klonopin which she has been on for years. Patient states she gets this from her primary care physician. Patient does have a neurologist, Dr. Reina, who prescribes her seizure medications in the form of Lamictal and topiramate. Patient actually denying any pain at this time. Patient denies any other triggers. No recent illness. No fever. No chest pain. No shortness of breath. No abdominal pain. No problems with urination or vomiting. Denies any ingestions. No head injury. No head or neck pain. - Related Data Home Medications Medication Instructions Recorded Confirmed lamoTRIgine [LaMICtal] 200 mg PO BID 09/26/18 05/16/21 Topiramate 50 mg PO BID 12/19/19 05/16/21 Previous Rx's Medication Instructions Recorded Famotidine [Pepcid AC] 10 mg PO BID #1 tablet 05/18/21 clonazePAM [KlonoPIN] 0.5 mg PO TID PRN tab 05/18/21 traZODone HCL [Desyrel] 25 mg PO HS PRN #5 tab 05/18/21 Allergies Allergy/AdvReac Type Severity Reaction Status Date / Time erythromycin base Allergy Rash/Hives Verified 07/26/21 19:58 gadobutrol [From Gadavist] Allergy Anaphylaxis Verified 07/26/21 19:58 Gadolinium-Containing Allergy Anaphylaxis Verified 07/26/21 19:58 Contrast Medi iodine Allergy Anaphylaxis Verified 07/26/21 19:58 ketorolac tromethamine Allergy Rash/Hives/ Verified 07/26/21 19:58 [From Toradol] hallucinati ons Penicillins Allergy Anaphylaxis Verified 07/26/21 19:58 azithromycin AdvReac red face Verified 07/26/21 19:58 lorazepam [From Ativan] AdvReac Hallucinati Verified 07/26/21 19:58 ons Review of Systems ROS Statement: Those systems with pertinent positive or pertinent negative responses have been documented in the HPI. ROS Other: All systems not noted in ROS Statement are negative. 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 BLOOD TRANSFUSIONS FOR LOW HGB. History of Any Multi-Drug Resistant Organisms: MRSA Date of last positivie culture/infection: 08/10/19 MDRO Source:: URINE Past Surgical History: Appendectomy, Bowel Resection, Cholecystectomy, Ear Surgery, Hysterectomy, Orthopedic Surgery Additional Past Surgical History / Comment(s): frantz knee arthroscopy, hiatal hernia surgery, rt ear surgery to remove middle ear, lymph node biopsy right armpit. loop recorder Past Anesthesia/Blood Transfusion Reactions: Postoperative Nausea & Vomiting (PONV) Additional Past Anesthesia/Blood Transfusion Reaction / Comment(s): Pt has received blood in past without reaction. Past Psychological History: Anxiety, Panic Disorder Smoking Status: Never smoker Past Alcohol Use History: Rare Past Drug Use History: None Reported - Past Family History Mother Family Medical History: No Reported History Additional Family Medical History / Comment(s): . Father Family Medical History: No Reported History Additional Family Medical History / Comment(s): Father is healthy General Exam Limitations: no limitations General appearance: alert, in no apparent distress Head exam: Present: atraumatic, normocephalic, normal inspection Eye exam: Present: normal appearance, PERRL, EOMI. Absent: scleral icterus, conjunctival injection, periorbital swelling ENT exam: Present: normal exam, normal oropharynx, mucous membranes dry, mucous membranes moist Neck exam: Present: normal inspection, full ROM. Absent: tenderness, meningismus, lymphadenopathy Respiratory exam: Present: normal lung sounds bilaterally. Absent: respiratory distress, wheezes, rales, rhonchi, stridor Cardiovascular Exam: Present: regular rate, normal rhythm, normal heart sounds. Absent: systolic murmur, diastolic murmur, rubs, gallop, clicks GI/Abdominal exam: Present: soft, normal bowel sounds. Absent: distended, tenderness, guarding, rebound, rigid Extremities exam: Present: normal inspection, full ROM, normal capillary refill. Absent: tenderness, pedal edema, joint swelling, calf tenderness Back exam: Present: normal inspection Neurological exam: Present: alert, oriented X3, CN II-XII intact. Absent: altered Expanded Patient oriented to: Present: person, place, time Speech: Present: fluid speech Cranial nerves: EOM's Intact: Normal, Gag Reflex: Normal, Tongue Deviation: Normal, Nystagmus: Normal, Facial Sensation: Normal, Facial Palsy with Forehead Movement: Normal, Facial Palsy without Forehead Movement: Normal Cerebellar function: Finger to Nose: Normal, Heel to Wilcox: Normal Eye Response: (4) open spontaneously Motor Response: (6) obeys commands Verbal Response: (5) oriented Ugo Total: 15 Psychiatric exam: Present: normal affect, normal mood. Absent: anxious, flat affect Skin exam: Present: warm, dry, intact, normal color. Absent: rash Course Vital Signs 08/06/21 01:08 Temperature 98.2 F Pulse Rate 83 Respiratory 18 Rate Blood Pressure 126/58 O2 Sat by Pulse 98 Oximetry - Reevaluation(s) Reevaluation #1: 08/06/21 03:04 Medical record is reviewed Symptoms are improved here in the emergency department Patient is informed of results and questions answered Patient in no distress Medical Decision Making - Medical Decision Making On reevaluation the patient states she has been off benzodiazepines for about 1 month. I did suggest taking one dose of Lamictal here as the patient's blood level testing for topiramate and Lamictal are send outs. Patient apparently has a point with Dr. Reina at 2 PM today. Patient has had no seizure activity here in the ER. Tremor is reduced. Patient now stating she has not had the benzodiazepines for a month. This is a bit discordant from the patient's initial story stating that she was taking up to a few days ago. Patient's parents are now in the room. Patient concurs with this treatment plan. She is unsure whether she had a seizure prior to arrival. Patient was complaining of tremors. It is not clear whether the patient had a seizure. We will keep her with her parents at all times until follow-up with the neurologist. Of course the patient does not drive. The case was discussed in detail with ED attending physician. Presentation, findings, treatment plan discussed in detail.Dr. Haley. Patient was told to return to the ER for any signs or symptoms worsen. Told to return immediately if any other problems arise. All questions answered. Davina tment plan discussed. Patient in agreement Every effort has been made to ensure accuracy of this dictation. However, due to the limitations of electronic medical records and dictation devices, errors in charting still occur. - Lab Data Result diagrams: 08/06/21 01:17 08/06/21 01:17 Lab Results 08/06/21 08/06/21 Range/Units 01:17 01:17 WBC 6.8 (3.8-10.6) k/uL RBC 3.95 (3.80-5.40) m/uL Hgb 10.7 L (11.4-16.0) gm/dL Hct 33.7 L (34.0-46.0) % MCV 85.3 (80.0-100.0) fL MCH 27.2 (25.0-35.0) pg MCHC 31.9 (31.0-37.0) g/dL RDW 13.8 (11.5-15.5) % Plt Count 268 (150-450) k/uL MPV 7.4 Neutrophils % 57 % Lymphocytes % 35 % Monocytes % 4 % Eosinophils % 2 % Basophils % 1 % Neutrophils # 3.8 (1.3-7.7) k/uL Lymphocytes # 2.4 (1.0-4.8) k/uL Monocytes # 0.3 (0-1.0) k/uL Eosinophils # 0.1 (0-0.7) k/uL Basophils # 0.0 (0-0.2) k/uL Sodium 140 (137-145) mmol/L Potassium 3.5 (3.5-5.1) mmol/L Chloride 109 H (98-107) mmol/L Carbon Dioxide 21 L (22-30) mmol/L Anion Gap 10 mmol/L BUN 25 H (7-17) mg/dL Creatinine 0.85 (0.52-1.04) mg/dL Est GFR (CKD-EPI)AfAm 90 (>60 ml/min/1.73 sqM) Est GFR (CKD-EPI)NonAf 78 (>60 ml/min/1.73 sqM) Glucose 97 (74-99) mg/dL Calcium 9.0 (8.4-10.2) mg/dL Magnesium 1.8 (1.6-2.3) mg/dL Total Bilirubin 0.4 (0.2-1.3) mg/dL AST 26 (14-36) U/L ALT 20 (4-34) U/L Alkaline Phosphatase 195 H (38-126) U/L Total Protein 6.9 (6.3-8.2) g/dL Albumin 3.7 (3.5-5.0) g/dL Salicylates <1.0 mg/dL Acetaminophen <10.0 ug/mL Serum Alcohol <10 mg/dL Disposition Clinical Impression: Seizure-like activity, Tremor Disposition: HOME SELF-CARE Condition: Good Instructions (If sedation given, give patient instructions): Tremors (ED), Seizure/Epilepsy Discharge Instructions & Follow-Up Is patient prescribed a controlled substance at d/c from ED?: No Referrals: Jennifer Reina MD [Medical Doctor] - 1-2 days Time of Disposition: 03:06
[2021-08-06 01:35] LABS: Basophils % (A) 1 %; Eosinophils # (A) 0.1 k/uL (0-0.7); Eosinophils % (A) 2 %; HCT 33.7 % (34.0-46.0); HGB 10.7 gm/dL (11.4-16.0); Lymphocytes # (A) 2.4 k/uL (1.0-4.8); Lymphocytes % (A) 35 %; MCH 27.2 pg (25.0-35.0); MCHC 31.9 g/dL (31.0-37.0); MCV 85.3 fL (80.0-100.0); Mean Platelet Volume 7.4; Monocytes # (A) 0.3 k/uL (0-1.0); Monocytes % (A) 4 %; Neutrophils # (A) 3.8 k/uL (1.3-7.7); Neutrophils % (A) 57 %; Platelet Count 268 k/uL (150-450); RBC 3.95 m/uL (3.80-5.40); RDW 13.8 % (11.5-15.5); WBC 6.8 k/uL (3.8-10.6)
[2021-08-06 01:57] LABS: ALT 20 U/L (4-34); AST 26 U/L (14-36); Acetaminophen <10.0 ug/mL; African American GFR (CKD) 90 (>60 ml/min/1.73 sqM); Albumin 3.7 g/dL (3.5-5.0); Alcohol <10 mg/dL; Alkaline Phosphatase 195 U/L (38-126); Anion Gap 10 mmol/L; Blood Urea Nitrogen 25 mg/dL (7-17); Carbon Dioxide 21 mmol/L (22-30); Chloride 109 mmol/L (98-107); Glucose 97 mg/dL (74-99); Magnesium 1.8 mg/dL (1.6-2.3); Non-African American GFR(CKD) 78 (>60 ml/min/1.73 sqM); Potassium 3.5 mmol/L (3.5-5.1); Salicylate <1.0 mg/dL; Sodium 140 mmol/L (137-145); Total Bilirubin 0.4 mg/dL (0.2-1.3); Total Protein 6.9 g/dL (6.3-8.2)
[2021-08-06] MEDS ORDERED: lamoTRIgine 100 MG TAB PO STA (03:04)
[2021-08-06 04:23] VITALS: BP 122/74; PULSE 68
[2021-08-07 08:51] LABS: Lamotrigine (Lamictal) 9.4 ug/mL (2.0-15.0)
[2021-08-10 08:25] LABS: Topiramate 4.6 ug/mL (2.0-20.0)
== END 2021-08-06 04:00 | disposition home or self-care (01) ==
LOC: EC 00:59
DX: R56.9 Unspecified convulsions (principal); R25.1 Tremor, unspecified; Z88.1 Allergy status to other antibiotic agents; Z88.8 Allergy status to other drugs, medicaments and biological substances; Z91.041 Radiographic dye allergy status; Z88.0 Allergy status to penicillin; Z88.6 Allergy status to analgesic agent
CPT/HCPCS: 36415; 80053; 80175; 80201; 83735; 85025; 80143; 80179; 99285; G0480; 80320

== ENCOUNTER → 2021-08-18 | Outpatient (CLI) | payer OTHER ==
[2021-08-18 14:23] LABS: Basophils # (A) 0.03 X 10*3/uL (0.00-0.10); Basophils % (A) 0.4 %; Eosinophils # (A) 0.09 X 10*3/uL (0.04-0.35); Eosinophils % (A) 1.2 %; HCT 35.7 % (37.2-46.3); HGB 10.9 g/dL (12.0-15.0); Immature Grans, Automated 0.3 %; Lymphocytes # (A) 1.98 X 10*3/uL (0.90-5.00); Lymphocytes % (A) 26.5 %; MCH 26.7 pg (27.0-32.0); MCHC 30.5 g/dL (32.0-37.0); MCV 87.5 fL (80.0-97.0); Mean Platelet Volume 10.9 fL (9.5-12.2); Monocytes # (A) 0.35 X 10*3/uL (0.20-1.00); Monocytes % (A) 4.7 %; NRBC Per 100 WBC 0 /100 WBCS (0.0-0.0); Neutrophils % (A) 66.9 %; Platelet Count 259 X 10*3/uL (140-440); RBC 4.08 X 10*6/uL (4.10-5.20); RDW 14.4 % (11.5-14.5); WBC 7.47 X 10*3/uL (4.50-10.00)
[2021-08-18 15:16] LABS: African American GFR (CKD) 96.2 (60.0-200.0); Albumin 4.4 g/dL (3.8-4.9); Albumin/Globulin Ratio 1.42 (1.60-3.17); Anion Gap 9.7 mmol/L (10.00-18.00); BUN/Creat Ratio 27.38 Ratio (12.00-20.00); Blood Urea Nitrogen 21.9 mg/dL (9.0-27.0); Calcium 9.8 mg/dL (8.7-10.3); Carbon Dioxide 24.3 mmol/L (20.0-27.5); Globulin 3.1 g/dL (1.6-3.3); Potassium 4.7 mmol/L (3.5-5.5); Total Bilirubin 0.3 mg/dL (0.30-1.20); Total Protein 7.5 g/dL (6.2-8.2)
== END | disposition home or self-care (01) ==
LOC: LABWHC1 08:42
PROVIDERS: ATTEND Nurse Practitioner Acute Care
DX: E55.9 Vitamin D deficiency, unspecified (principal); E53.9 Vitamin B deficiency, unspecified; R41.3 Other amnesia; R90.82 White matter disease, unspecified
CPT/HCPCS: 36415; 80053; 82306; 82607; 84207; 85025

== ENCOUNTER 2021-09-27 03:45 | Emergency (ER) | payer OTHER ==
[2021-09-27 03:55] VITALS: RESP 16
[2021-09-27 05:13] LABS: Basophils % (A) 0 %; Eosinophils # (A) 0.1 k/uL (0-0.7); Eosinophils % (A) 1 %; HCT 31.6 % (34.0-46.0); Hypochromasia Slight; Lymphocytes # (A) 1.9 k/uL (1.0-4.8); Lymphocytes % (A) 28 %; MCH 27.7 pg (25.0-35.0); MCHC 31.7 g/dL (31.0-37.0); MCV 87.3 fL (80.0-100.0); Mean Platelet Volume 7.3; Monocytes # (A) 0.3 k/uL (0-1.0); Monocytes % (A) 5 %; Neutrophils # (A) 4.5 k/uL (1.3-7.7); Neutrophils % (A) 65 %; Platelet Count 221 k/uL (150-450); RBC 3.62 m/uL (3.80-5.40); RDW 15.4 % (11.5-15.5); WBC 6.9 k/uL (3.8-10.6)
--- NOTE | 2021-09-27 05:18 | XR ---
EXAM: XR Chest, 2 Views CLINICAL HISTORY: ITS.REASON XR Reason: Weakness TECHNIQUE: Frontal and lateral views of the chest. COMPARISON: No relevant prior studies available. FINDINGS: Lungs: Mild to moderate peribronchial thickening of the central bronchi. No consolidation. Pleural space: Unremarkable. No pneumothorax. Heart: Unremarkable. No cardiomegaly. Mediastinum: Unremarkable. Bones/joints: There is a loop recorder in the anterior left chest wall. IMPRESSION: Findings concerning for bronchitis, which may be of infectious or inflammatory etiologies. No consolidation.
[2021-09-27 05:24] LABS: ALT 17 U/L (4-34); AST 27 U/L (14-36); African American GFR (CKD) >90 (>60 ml/min/1.73 sqM); Albumin 3.5 g/dL (3.5-5.0); Alkaline Phosphatase 181 U/L (38-126); Anion Gap 7 mmol/L; Blood Urea Nitrogen 30 mg/dL (7-17); Carbon Dioxide 22 mmol/L (22-30); Chloride 110 mmol/L (98-107); Glucose 105 mg/dL (74-99); Non-African American GFR(CKD) 81 (>60 ml/min/1.73 sqM); Potassium 3.9 mmol/L (3.5-5.1); Sodium 139 mmol/L (137-145); Total Bilirubin 0.2 mg/dL (0.2-1.3); Total Protein 6.1 g/dL (6.3-8.2)
[2021-09-27 05:37] LABS: INR 0.9 (<1.2); Prothrombin Time 9.9 sec (9.0-12.0)
[2021-09-27 05:42] LABS: Appearance,Urine Clear (Clear); Bacteria,Urine Rare /hpf; Bilirubin,Urine Negative (Negative); Blood,Urine Negative (Negative); Color,Urine Light Yellow; Glucose,Urine (UA) Negative (Negative); Hyaline Casts,Urine 1 /lpf (0-2); Ketones,Urine Negative (Negative); Leukocyte Esterase,Urine Moderate (Negative); Mucus,Urine Rare /hpf; Nitrite,Urine Negative (Negative); Protein,Urine Negative (Negative); RBC,Urine 1 /hpf (0-5); Specific Gravity,Urine 1.018 (1.001-1.035); Squamous Epithelial Cell,Urine 1 /hpf (0-4); Urobilinogen,Urine <2.0 mg/dL (<2.0); WBC,Urine 3 /hpf (0-5)
[2021-09-27 05:44] LABS: Partial Thromboplastin Time 19.5 sec (22.0-30.0)
[2021-09-27] MEDS ORDERED: METOCLOPRAMIDE 5 MG/ML 2 ML VIAL IVP STA (06:42)
[2021-09-27] MEDS ORDERED: SODIUM CHLORIDE 0.9% 500 ML 500 ML IV STA (06:42)
[2021-09-27] MEDS ORDERED: diphenhydrAMINE 50 MG/ML 1 ML VIAL IVP STA (06:42)
--- NOTE | 2021-09-27 07:32 | CT ---
EXAMINATION TYPE: CT brain wo con DATE OF EXAM: 09/27/2021 COMPARISON: 05/17/2021 HISTORY: Weakness Unenhanced CT of the brain was performed. The ventricles, basal cisterns and sulci overlying the cerebral convexities demonstrate mild enlargem ent. There is no evidence for intracranial hemorrhage or sulcal effacement. There is decreased attenuation about the periventricular white matter and deep white matter of both c erebral hemispheres, compatible with chronic small vessel ischemia. Differential diagnosis does inclu de demyelination. No mass effects are seen.No midline shift. Osseous calvarium is intact. If symptoms persist consider MRI. IMPRESSION: 1. Age related atrophic and chronic small vessel ischemic change without acute intracranial process s een at this time.
--- NOTE | 2021-09-27 07:40 | ED ---
General Adult HPI - General Chief complaint: Weakness Stated complaint: Left-sided numbness Time Seen by Provider: 09/27/21 03:51 Source: EMS Mode of arrival: EMS - History of Present Illness Initial comments: This patient is a 55-year-old woman who presents to have evaluation of headache and left-sided weakness. Patient has history of migraine headaches. She also has had unilateral weakness with headache previously. Patient does follow with neurology. She has had previous workups with no evidence of CVA or aneurysm. Patient denies visual changes. No difficulty with speech or swallowing. No fever or chills. No neck stiffness or pain. -: minutes(s) Location: head Radiation: non-radiation Quality: aching Consistency: constant Improves with: none Worsens with: none Associated Symptoms: weakness Treatments Prior to Arrival: none - Related Data Home Medications Medication Instructions Recorded Confirmed lamoTRIgine [LaMICtal] 200 mg PO BID 09/26/18 05/16/21 Topiramate 50 mg PO BID 12/19/19 05/16/21 Previous Rx's Medication Instructions Recorded Famotidine [Pepcid AC] 10 mg PO BID #1 tablet 05/18/21 clonazePAM [KlonoPIN] 0.5 mg PO TID PRN tab 05/18/21 traZODone HCL [Desyrel] 25 mg PO HS PRN #5 tab 05/18/21 Allergies Allergy/AdvReac Type Severity Reaction Status Date / Time erythromycin base Allergy Rash/Hives Verified 07/26/21 19:58 gadobutrol [From Gadavist] Allergy Anaphylaxis Verified 07/26/21 19:58 Gadolinium-Containing Allergy Anaphylaxis Verified 07/26/21 19:58 Contrast Medi iodine Allergy Anaphylaxis Verified 07/26/21 19:58 ketorolac tromethamine Allergy Rash/Hives/ Verified 07/26/21 19:58 [From Toradol] hallucinati ons Penicillins Allergy Anaphylaxis Verified 07/26/21 19:58 azithromycin AdvReac red face Verified 07/26/21 19:58 lorazepam [From Ativan] AdvReac Hallucinati Verified 07/26/21 19:58 ons Review of Systems ROS Statement: Those systems with pertinent positive or pertinent negative responses have been documented in the HPI. ROS Other: All systems not noted in ROS Statement are negative. Constitutional: Denies: fever, chills, weakness Eyes: Denies: vision change Respiratory: Denies: cough, dyspnea Cardiovascular: Denies: chest pain, palpitations, syncope Gastrointestinal: Denies: abdominal pain, nausea, vomiting Genitourinary: Denies: dysuria, hematuria Musculoskeletal: Denies: back pain Skin: Denies: rash Neurological: Reports: headache, weakness. 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 BLOOD TRANSFUSIONS FOR LOW HGB. History of Any Multi-Drug Resistant Organisms: MRSA Date of last positivie culture/infection: 08/10/19 MDRO Source:: URINE Past Surgical History: Appendectomy, Bowel Resection, Cholecystectomy, Ear Surgery, Hysterectomy, Orthopedic Surgery Additional Past Surgical History / Comment(s): frantz knee arthroscopy, hiatal h ernia surgery, rt ear surgery to remove middle ear, lymph node biopsy right armpit. loop recorder Past Anesthesia/Blood Transfusion Reactions: Postoperative Nausea & Vomiting (PONV) Additional Past Anesthesia/Blood Transfusion Reaction / Comment(s): Pt has received blood in past without reaction. Past Psychological History: Anxiety, Panic Disorder Smoking Status: Never smoker Past Alcohol Use History: Rare Past Drug Use History: None Reported - Past Family History Mother Family Medical History: No Reported History Additional Family Medical History / Comment(s): . Father Family Medical History: No Reported History Additional Family Medical History / Comment(s): Father is healthy General Exam General appearance: alert, in no apparent distress Head exam: Present: atraumatic, normocephalic Eye exam: Present: normal appearance. Absent: scleral icterus, conjunctival injection ENT exam: Present: normal oropharynx Neck exam: Present: normal inspection, full ROM Respiratory exam: Present: normal lung sounds bilaterally. Absent: respiratory distress, wheezes, rales, rhonchi, stridor Cardiovascular Exam: Present: regular rate, normal rhythm, normal heart sounds. Absent: systolic murmur, diastolic murmur, rubs, gallop GI/Abdominal exam: Present: soft. Absent: distended, tenderness, guarding, rebound, rigid, mass Extremities exam: Present: normal inspection, normal capillary refill. Absent: pedal edema, calf tenderness Back exam: Present: normal inspection. Absent: CVA tenderness (R), CVA tenderness (L) Neurological exam: Present: alert, oriented X3, CN II-XII intact, other (Patient does have some subjective left sided weakness however the exam has inconsistencies and suspect is effort dependent) Skin exam: Present: warm, dry, intact, normal color. Absent: rash Course Vital Signs 09/27/21 09/27/21 03:49 07:58 Temperature 97.8 F 98 F Pulse Rate 70 72 Respiratory 16 16 Rate Blood Pressure 141/74 141/61 O2 Sat by Pulse 98 98 Oximetry Medical Decision Making - Medical Decision Making Patient's 55-year-old woman with headache and unilateral weakness that have resolved with medication here. Discussed appropriate further care and follow-up as well as return parameters. - Lab Data Result diagrams: 09/27/21 05:00 09/27/21 05:00 Lab Results 09/27/21 09/27/21 09/27/21 Range/Units 05:00 05:00 05:00 WBC 6.9 (3.8-10.6) k/uL RBC 3.62 L (3.80-5.40) m/uL Hgb 10.0 L (11.4-16.0) gm/dL Hct 31.6 L (34.0-46.0) % MCV 87.3 (80.0-100.0) fL MCH 27.7 (25.0-35.0) pg MCHC 31.7 (31.0-37.0) g/dL RDW 15.4 (11.5-15.5) % Plt Count 221 (150-450) k/uL MPV 7.3 Neutrophils % 65 % Lymphocytes % 28 % Monocytes % 5 % Eosinophils % 1 % Basophils % 0 % Neutrophils # 4.5 (1.3-7.7) k/uL Lymphocytes # 1.9 (1.0-4.8) k/uL Monocytes # 0.3 (0-1.0) k/uL Eosinophils # 0.1 (0-0.7) k/uL Basophils # 0.0 (0-0.2) k/uL Hypochromasia Slight PT 9.9 (9.0-12.0) sec INR 0.9 (<1.2) APTT 19.5 L (22.0-30.0) sec Sodium 139 (137-145) mmol/L Potassium 3.9 (3.5-5.1) mmol/L Chloride 110 H (98-107) mmol/L Carbon Dioxide 22 (22-30) mmol/L Anion Gap 7 mmol/L BUN 30 H (7-17) mg/dL Creatinine 0.82 (0.52-1.04) mg/dL Est GFR (CKD-EPI)AfAm >90 (>60 ml/min/1.73 sqM) Est GFR (CKD-EPI)NonAf 81 (>60 ml/min/1.73 sqM) Glucose 105 H (74-99) mg/dL Plasma Lactic Acid Williams (0.7-2.0) mmol/L Calcium 9.0 (8.4-10.2) mg/dL Total Bilirubin 0.2 (0.2-1.3) mg/dL AST 27 (14-36) U/L ALT 17 (4-34) U/L Alkaline Phosphatase 181 H (38-126) U/L Troponin I (0.000-0.034) ng/mL Total Protein 6.1 L (6.3-8.2) g/dL Albumin 3.5 (3.5-5.0) g/dL Urine Color Urine Appearance (Clear) Urine pH (5.0-8.0) Ur Specific [place] (1.001-1.035) Urine Protein (Negative) Urine Glucose (UA) (Negative) Urine Ketones (Negative) Urine Blood (Negative) Urine Nitrite (Negative) Urine Bilirubin (Negative) Urine Urobilinogen (<2.0) mg/dL Ur Leukocyte Esterase (Negative) Urine RBC (0-5) /hpf Urine WBC (0-5) /hpf Ur Squamous Epith Cells (0-4) /hpf Urine Bacteria (None) /hpf Hyaline Casts (0-2) /lpf Urine Mucus (None) /hpf 09/27/21 09/27/21 09/27/21 Range/Units 05:00 05:00 05:14 WBC (3.8-10.6) k/uL RBC (3.80-5.40) m/uL Hgb (11.4-16.0) gm/dL Hct (34.0-46.0) % MCV (80.0-100.0) fL MCH (25.0-35.0) pg MCHC (31.0-37.0) g/dL RDW (11.5-15.5) % Plt Count (150-450) k/uL MPV Neutrophils % % Lymphocytes % % Monocytes % % Eosinophils % % Basophils % % Neutrophils # (1.3-7.7) k/uL Lymphocytes # (1.0-4.8) k/uL Monocytes # (0-1.0) k/uL Eosinophils # (0-0.7) k/uL Basophils # (0-0.2) k/uL Hypochromasia PT (9.0-12.0) sec INR (<1.2) APTT (22.0-30.0) sec Sodium (137-145) mmol/L Potassium (3.5-5.1) mmol/L Chloride (98-107) mmol/L Carbon Dioxide (22-30) mmol/L Anion Gap mmol/L BUN (7-17) mg/dL Creatinine (0.52-1.04) mg/dL Est GFR (CKD-EPI)AfAm (>60 ml/min/1.73 sqM) Est GFR (CKD-EPI)NonAf (>60 ml/min/1.73 sqM) Glucose (74-99) mg/dL Plasma Lactic Acid Williams 0.8 (0.7-2.0) mmol/L Calcium (8.4-10.2) mg/dL Total Bilirubin (0.2-1.3) mg/dL AST (14-36) U/L ALT (4-34) U/L Alkaline Phosphatase (38-126) U/L Troponin I <0.012 (0.000-0.034) ng/mL Total Protein (6.3-8.2) g/dL Albumin (3.5-5.0) g/dL Urine Color Light Yellow Urine Appearance Clear (Clear) Urine pH 6.0 (5.0-8.0) Ur Specific [place] 1.018 (1.001-1.035) Urine Protein Negative (Negative) Urine Glucose (UA) Negative (Negative) Urine Ketones Negative (Negative) Urine Blood Negative (Negative) Urine Nitrite Negative (Negative) Urine Bilirubin Negative (Negative) Urine Urobilinogen <2.0 (<2.0) mg/dL Ur Leukocyte Esterase Moderate H (Negative) Urine RBC 1 (0-5) /hpf Urine WBC 3 (0-5) /hpf Ur Squamous Epith Cells 1 (0-4) /hpf Urine Bacteria Rare H (None) /hpf Hyaline Casts 1 (0-2) /lpf Urine Mucus Rare H (None) /hpf Disposition Clinical Impression: Migraine, hemiplegic Disposition: HOME SELF-CARE Condition: Good Instructions (If sedation given, give patient instructions): Migraine Headache (ED) Is patient prescribed a controlled substance at d/c from ED?: No Referrals: Scott Medrano MD [Primary Care Provider] - 1-2 days
[2021-09-27 07:59] VITALS: BP 141/61; PULSE 72; TEMP 98
== END 2021-09-27 07:58 | disposition home or self-care (01) ==
LOC: EC 03:45
DX: G43.409 Hemiplegic migraine, not intractable, without status migrainosus (principal); Z88.0 Allergy status to penicillin; Z91.041 Radiographic dye allergy status; Z88.8 Allergy status to other drugs, medicaments and biological substances; Z88.6 Allergy status to analgesic agent
CPT/HCPCS: 36415; 70450; 71046; 80053; 81001; 83605; 84484; 85025; 85610; 85730; 93005; 99285

== ENCOUNTER → 2021-12-10 | Outpatient (CLI) | payer OTHER ==
--- NOTE | 2021-12-16 15:42 | MM ---
Reason for Exam: Screening (asymptomatic). Last mammogram was performed 2 year(s) and 10 month(s) ago. Patient History: Menarche at age 11. First Full-Term at age 25. Left ovary removed at age 30. Right ovary removed at age 30. Hysterectomy at age 30. Postmenopausal. Colorectal cancer, age 52. Maternal grandmother had breast cancer, age 72. Paternal aunt had breast cancer, age 45. Risk Values: Babita 5 year model risk: 1.4%. NCI Lifetime model risk: 9.9%. Prior Study Comparison: 05/29/2012 Bilateral Screening Mammogram, [facility]. 10/17/2015 Bilateral Screening Mammogram, [facility]. 02/14/2019 Bilateral Screening Mammogram, [facility]. Tissue Density: There are scattered fibroglandular densities. Findings: Analyzed By CAD. There is no suspicious group of microcalcifications or new suspicious mass in either breast. Cardiac pacemaker noted. Overall Assessment: Negative, BI-RAD 1 Management: Screening Mammogram of both breasts in 1 year. A clinical breast exam by your physician is recommended on an annual basis and results should be correlated with mammographic findings. Electronically signed and approved by: Bernabe Mariano DO
== END | disposition home or self-care (01) ==
LOC: RADMAMWWP 15:41
PROVIDERS: ATTEND Internal Medicine Hematology & Oncology
DX: Z12.31 Encounter for screening mammogram for malignant neoplasm of breast (principal); Z78.0 Asymptomatic menopausal state; Z80.3 Family history of malignant neoplasm of breast
CPT/HCPCS: 77067

== ENCOUNTER 2021-12-15 03:13 | Emergency (ER) | payer OTHER ==
--- NOTE | 2021-12-15 04:32 | CT ---
EXAMINATION TYPE: CT abdomen pelvis wo con DATE OF EXAM: 12/15/2021 COMPARISON: 06/19/2021 HISTORY: Lower abdominal pain, upper adominal bloating x 1 month, pt has colon cancer. CT DLP: 615.3 mGycm Automated exposure control for dose reduction was used. Images obtained from the diaphragm to the floor the pelvis with no contrast. The lung bases are clear. No pleural effusion. Heart size is within normal limits. There is no perica rdial effusion. Liver spleen and stomach pancreas appear intact. The bile ducts are nondilated. There are clips from cholecystectomy. There is no adrenal mass. Kidneys have normal size. No hydronephrosis. The ureters are not dilated. N o retroperitoneal adenopathy lateral distends smoothly. No inguinal hernia. No free fluid in the pelv is. There is no mesenteric edema. No ascites or free air. No sign of a bowel obstruction there are clips at the gastroesophageal junction. There are surgical clips at the hepatic flexure of the colon. There is apparent right hemicolectomy. The lumbar vertebrae have normal alignment. Posterior elbow is intact. No compression fracture. The b renae pelvis is intact. The hip joints are intact. No focal bone destruction. IMPRESSION: Previous surgery. No evidence of a bowel obstruction. No sign of recurrent tumor. No adverse change c ompared to old exam.
[2021-12-15] MEDS ORDERED: HYDROmorphone 0.5 MG/0.5 ML SYRINGE IVP STA (05:00)
[2021-12-15 05:04] LABS: Basophils % (A) 0 %; Eosinophils # (A) 0.1 k/uL (0-0.7); Eosinophils % (A) 1 %; HCT 36.9 % (34.0-46.0); HGB 11.7 gm/dL (11.4-16.0); Lymphocytes # (A) 2.1 k/uL (1.0-4.8); Lymphocytes % (A) 27 %; MCH 27.5 pg (25.0-35.0); MCHC 31.8 g/dL (31.0-37.0); MCV 86.7 fL (80.0-100.0); Mean Platelet Volume 7.9; Monocytes # (A) 0.3 k/uL (0-1.0); Monocytes % (A) 4 %; Neutrophils # (A) 5.3 k/uL (1.3-7.7); Neutrophils % (A) 67 %; Platelet Count 252 k/uL (150-450); RBC 4.26 m/uL (3.80-5.40); RDW 14.7 % (11.5-15.5); WBC 7.9 k/uL (3.8-10.6)
[2021-12-15 05:14] LABS: Appearance,Urine Cloudy (Clear); Bilirubin,Urine Negative (Negative); Blood,Urine Negative (Negative); Color,Urine Yellow; Glucose,Urine (UA) Negative (Negative); Hyaline Casts,Urine 3 /lpf (0-2); Ketones,Urine Negative (Negative); Leukocyte Esterase,Urine Moderate (Negative); Mucus,Urine Many /hpf; Nitrite,Urine Negative (Negative); Protein,Urine Trace (Negative); RBC,Urine 2 /hpf (0-5); Specific Gravity,Urine 1.022 (1.001-1.035); Squamous Epithelial Cell,Urine 1 /hpf (0-4); Urobilinogen,Urine <2.0 mg/dL (<2.0); WBC,Urine 9 /hpf (0-5)
[2021-12-15 05:19] LABS: INR 0.8 (<1.2); Partial Thromboplastin Time 22.9 sec (22.0-30.0); Prothrombin Time 9.5 sec (9.0-12.0)
--- NOTE | 2021-12-15 05:28 | ED ---
General Adult HPI - General Chief complaint: Abdominal Pain Stated complaint: abd pain, has colon cancer Time Seen by Provider: 12/15/21 03:22 Source: patient, RN notes reviewed, old records reviewed Mode of arrival: ambulatory Limitations: no limitations - History of Present Illness Initial comments: 55-year-old female presented for evaluation of abdominal pain and distention. Symptoms 7 present for approximately one month. Patient denies fever. She's had previous history of colon cancer and is scheduled for colonoscopy. She has had bowel movements. - Related Data Home Medications Medication Instructions Recorded Confirmed lamoTRIgine [LaMICtal] 200 mg PO BID 09/26/18 05/16/21 Topiramate 50 mg PO BID 12/19/19 05/16/21 Previous Rx's Medication Instructions Recorded Famotidine [Pepcid AC] 10 mg PO BID #1 tablet 05/18/21 traZODone HCL [Desyrel] 25 mg PO HS PRN #5 tab 05/18/21 Allergies Allergy/AdvReac Type Severity Reaction Status Date / Time erythromycin base Allergy Rash/Hives Verified 07/26/21 19:58 gadobutrol [From Gadavist] Allergy Anaphylaxis Verified 07/26/21 19:58 Gadolinium-Containing Allergy Anaphylaxis Verified 07/26/21 19:58 Contrast Medi iodine Allergy Anaphylaxis Verified 07/26/21 19:58 ketorolac tromethamine Allergy Rash/Hives/ Verified 07/26/21 19:58 [From Toradol] hallucinati ons Penicillins Allergy Anaphylaxis Verified 07/26/21 19:58 azithromycin AdvReac red face Verified 07/26/21 19:58 lorazepam [From Ativan] AdvReac Hallucinati Verified 07/26/21 19:58 ons Review of Systems ROS Statement: Those systems with pertinent positive or pertinent negative responses have been documented in the HPI. ROS Other: All systems not noted in ROS Statement are negative. 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 BLOOD TRANSFUSIONS FOR LOW HGB. History of Any Multi-Drug Resistant Organisms: MRSA Date of last positivie culture/infection: 08/10/19 MDRO Source:: URINE Past Surgical History: Appendectomy, Bowel Resection, Cholecystectomy, Ear Surgery, Hysterectomy, Orthopedic Surgery Additional Past Surgical History / Comment(s): frantz knee arthroscopy, hiatal hernia surgery, rt ear surgery to remove middle ear, lymph node biopsy right armpit. loop recorder Past Anesthesia/Blood Transfusion Reactions: Postoperative Nausea & Vomiting (PONV) Additional Past Anesthesia/Blood Transfusion Reaction / Comment(s): Pt has received blood in past without reaction. Past Psychological History: Anxiety, Panic Disorder Smoking Status: Never smoker Past Alcohol Use History: Rare Past Drug Use History: None Reported - Past Family History Mother Family Medical History: No Reported History Additional Family Medical History / Comment(s): . Father Family Medical History: No Reported History Additional Family Medical History / Comment(s): Father is healthy General Exam Limitations: no limitations General appearance: alert, in no apparent distress Head exam: Present: atraumatic, normocephalic Eye exam: Present: normal appearance, PERRL ENT exam: Present: normal exam Neck exam: Present: normal inspection. Absent: tenderness, meningismus Respiratory exam: Present: normal lung sounds bilaterally. Absent: respiratory distress, wheezes Cardiovascular Exam: Present: regular rate, normal rhythm GI/Abdominal exam: Present: soft, distended, tenderness. Absent: guarding, rebound, rigid Extremities exam: Present: normal inspection, normal capillary refill Neurological exam: Present: alert, oriented X3, CN II-XII intact. Absent: motor sensory deficit Psychiatric exam: Present: normal affect, normal mood Skin exam: Present: warm, dry, intact. Absent: cyanosis, diaphoretic Course Vital Signs 12/15/21 03:39 Temperature 98.6 F Pulse Rate 81 Respiratory 20 Rate Blood Pressure 154/59 O2 Sat by Pulse 98 Oximetry Medical Decision Making - Medical Decision Making 55-year-old female presenting for evaluation of abdominal pain and distention. Patient well-appearing with stable vitals. Normal CBC, normal CMP, urinalysis showing 9 white cells, no other acute findings. CT the abdomen and pelvis is performed which is negative for obstruction, negative for acute findings. Given the duration of symptoms and negative workup in the emergency department I feel this patient is stable for continued outpatient evaluation and treatment. - Lab Data Result diagrams: 12/15/21 04:24 12/15/21 04:24 Lab Results 12/15/21 12/15/21 12/15/21 Range/Units 04:24 04:24 04:24 WBC 7.9 (3.8-10.6) k/uL RBC 4.26 (3.80-5.40) m/uL Hgb 11.7 (11.4-16.0) gm/dL Hct 36.9 (34.0-46.0) % MCV 86.7 (80.0-100.0) fL MCH 27.5 (25.0-35.0) pg MCHC 31.8 (31.0-37.0) g/dL RDW 14.7 (11.5-15.5) % Plt Count 252 (150-450) k/uL MPV 7.9 Neutrophils % 67 % Lymphocytes % 27 % Monocytes % 4 % Eosinophils % 1 % Basophils % 0 % Neutrophils # 5.3 (1.3-7.7) k/uL Lymphocytes # 2.1 (1.0-4.8) k/uL Monocytes # 0.3 (0-1.0) k/uL Eosinophils # 0.1 (0-0.7) k/uL Basophils # 0.0 (0-0.2) k/uL PT 9.5 (9.0-12.0) sec INR 0.8 (<1.2) APTT 22.9 (22.0-30.0) sec Sodium 142 (137-145) mmol/L Potassium 3.8 (3.5-5.1) mmol/L Chloride 106 (98-107) mmol/L Carbon Dioxide 25 (22-30) mmol/L Anion Gap 11 mmol/L BUN 23 H (7-17) mg/dL Creatinine 0.88 (0.52-1.04) mg/dL Est GFR (CKD-EPI)AfAm 86 (>60 ml/min/1.73 sqM) Est GFR (CKD-EPI)NonAf 75 (>60 ml/min/1.73 sqM) Glucose 94 (74-99) mg/dL Calcium 9.2 (8.4-10.2) mg/dL Total Bilirubin 0.4 (0.2-1.3) mg/dL AST 21 (14-36) U/L ALT 11 (4-34) U/L Alkaline Phosphatase 148 H (38-126) U/L Total Protein 6.8 (6.3-8.2) g/dL Albumin 4.0 (3.5-5.0) g/dL Lipase 68 (23-300) U/L Urine Color Urine Appearance (Clear) Urine pH (5.0-8.0) Ur Specific [place] (1.001-1.035) Urine Protein (Negative) Urine Glucose (UA) (Negative) Urine Ketones (Negative) Urine Blood (Negative) Urine Nitrite (Negative) Urine Bilirubin (Negative) Urine Urobilinogen (<2.0) mg/dL Ur Leukocyte Esterase (Negative) Urine RBC (0-5) /hpf Urine WBC (0-5) /hpf Ur Squamous Epith Cells (0-4) /hpf Hyaline Casts (0-2) /lpf Urine Mucus (None) /hpf 12/15/21 Range/Units 04:30 WBC (3.8-10.6) k/uL RBC (3.80-5.40) m/uL Hgb (11.4-16.0) gm/dL Hct (34.0-46.0) % MCV (80.0-100.0) fL MCH (25.0-35.0) pg MCHC (31.0-37.0) g/dL RDW (11.5-15.5) % Plt Count (150-450) k/uL MPV Neutrophils % % Lymphocytes % % Monocytes % % Eosinophils % % Basophils % % Neutrophils # (1.3-7.7) k/uL Lymphocytes # (1.0-4.8) k/uL Monocytes # (0-1.0) k/uL Eosinophils # (0-0.7) k/uL Basophils # (0-0.2) k/uL PT (9.0-12.0) sec INR (<1.2) APTT (22.0-30.0) sec Sodium (137-145) mmol/L Potassium (3.5-5.1) mmol/L Chloride (98-107) mmol/L Carbon Dioxide (22-30) mmol/L Anion Gap mmol/L BUN (7-17) mg/dL Creatinine (0.52-1.04) mg/dL Est GFR (CKD-EPI)AfAm (>60 ml/min/1.73 sqM) Est GFR (CKD-EPI)NonAf (>60 ml/min/1.73 sqM) Glucose (74-99) mg/dL Calcium (8.4-10.2) mg/dL Total Bilirubin (0.2-1.3) mg/dL AST (14-36) U/L ALT (4-34) U/L Alkaline Phosphatase (38-126) U/L Total Protein (6.3-8.2) g/dL Albumin (3.5-5.0) g/dL Lipase (23-300) U/L Urine Color Yellow Urine Appearance Cloudy H (Clear) Urine pH 6.0 (5.0-8.0) Ur Specific [place] 1.022 (1.001-1.035) Urine Protein Trace H (Negative) Urine Glucose (UA) Negative (Negative) Urine Ketones Negative (Negative) Urine Blood Negative (Negative) Urine Nitrite Negative (Negative) Urine Bilirubin Negative (Negative) Urine Urobilinogen <2.0 (<2.0) mg/dL Ur Leukocyte Esterase Moderate H (Negative) Urine RBC 2 (0-5) /hpf Urine WBC 9 H (0-5) /hpf Ur Squamous Epith Cells 1 (0-4) /hpf Hyaline Casts 3 H (0-2) /lpf Urine Mucus Many H (None) /hpf Disposition Clinical Impression: Abdominal pain Disposition: HOME SELF-CARE Condition: Fair Instructions (If sedation given, give patient instructions): Abdominal Pain (ED) Is patient prescribed a controlled substance at d/c from ED?: No Referrals: Scott Medrano MD [Primary Care Provider] - 1-2 days Palma Modi DO [Doctor of Osteopathic Medicine] - 1-2 days Time of Disposition: 05:28
[2021-12-15 05:37] LABS: Calcium 9.2 mg/dL (8.4-10.2); Potassium 3.8 mmol/L (3.5-5.1); Total Bilirubin 0.4 mg/dL (0.2-1.3); Total Protein 6.8 g/dL (6.3-8.2)
[2021-12-15 05:56] VITALS: BP 132/84; PULSE 80; RESP 18; TEMP 97.8
== END 2021-12-15 05:54 | disposition home or self-care (01) ==
LOC: EC 03:13
DX: R10.9 Unspecified abdominal pain (principal); F41.9 Anxiety disorder, unspecified; Z88.1 Allergy status to other antibiotic agents; Z88.6 Allergy status to analgesic agent; Z88.0 Allergy status to penicillin; Z88.8 Allergy status to other drugs, medicaments and biological substances; Z91.041 Radiographic dye allergy status; Z79.899 Other long term (current) drug therapy
CPT/HCPCS: 36415; 80053; 83690; 85025; 85610; 85730; 81001; 74176; 99284; 96374; J1170

== ENCOUNTER 2021-12-22 09:09 | Day surgery (SDC) | payer OTHER ==
[2021-12-17 10:11] VITALS: BMI 31.9
[~2021-12-22 09:09] MED LIST changes: +LACTATED RINGERS 1,000 ML IV SCH; -SIMETHICONE 40 MG/0.6 ML DROPS 2,000 MG/30 ML BOTTLE PO ONE
[2021-12-22 10:03] VITALS: TEMP 97.5
[2021-12-22] MEDS ORDERED: PROPOFOL 10 MG/ML 20 ML VIAL IV ONE (10:54)
[2021-12-22] MEDS ORDERED: ONDANSETRON 4 MG/2 ML VIAL ONE (10:54)
[2021-12-22] MEDS ORDERED: LIDOCAINE 2% INJ 20 MG/ML (2 ML VIAL) ONE (10:54)
--- NOTE | 2021-12-22 11:36 | P.PCN ---
Date of Procedure: 12/22/21 Procedure(s) Performed: BRIEF HISTORY: Patient is a 56-year-old pleasant white female scheduled for an elective colonoscopy as a part of evaluation of intermittent rectal bleeding and surveillance of colon cancer diagnosed in 2018 status post right hemicolectomy. She subsequently developed recurrent in 2020 with chemotherapy. She has been having intermittent lower abdominal pain with abdominal bloating and rectal bleeding. PROCEDURE PERFORMED: Colonoscopy. PREOPERATIVE DIAGNOSIS: History of colon cancer in 2019 status post right hemicolectomy followed by recurrence in 2020. IV sedation per Anesthesia. PROCEDURE: After informed consent was obtained, the patient, was brought into the endoscopy unit. IV sedation was administered by Anesthesia under continuous monitoring. Digital rectal examination was normal. Initially the Olympus CF-160 flexible video colonoscope was then inserted in the rectum, gradually advanced into the right colon with ileocolic anastomosis was visualized and appeared normal. Mucosa of the ascending colon, transverse colon, descending colon, sigmoid colon, and rectum appeared normal. Retroflexion was performed in the rectum and small internal hemorrhoids were seen. The patient tolerated the procedure well. IMPRESSION: Normal-appearing colon from rectum to right colon with no evidence of colorectal neoplasia Small internal hemorrhoids. RECOMMENDATIONS: Findings of this examination were discussed with the patient as well as a family. She was advised to have a repeat colonoscopy in 2 years as a part of surveillance of colon cancer.
[2021-12-22 12:42] VITALS: BP 162/72; PULSE 56; RESP 16
== END 2021-12-22 12:10 ==
LOC: ORWHC2ENDO 09:09
PROVIDERS: ATTEND Internal Medicine Gastroenterology
DX: K64.8 Other hemorrhoids (principal); Z85.038 Personal history of other malignant neoplasm of large intestine; M79.7 Fibromyalgia; G43.909 Migraine, unspecified, not intractable, without status migrainosus; Z91.041 Radiographic dye allergy status; Z88.8 Allergy status to other drugs, medicaments and biological substances; Z86.69 Personal history of other diseases of the nervous system and sense organs
CPT/HCPCS: 45378; J2405; J2704; J2001

== ENCOUNTER 2022-01-30 03:47 | Emergency (ER) | payer OTHER ==
[2022-01-30 04:28] VITALS: BP 149/75; PULSE 79; RESP 16; TEMP 98.2
[2022-01-30] MEDS ORDERED: SODIUM CHLORIDE 0.9% 1,000 ML IV STA (05:27)
[2022-01-30] MEDS ORDERED: MORPHINE SULFATE 4 MG/ML SYRINGE IV STA (05:27)
[2022-01-30] MEDS ORDERED: ACETAMINOPHEN TAB 500 MG TAB PO STA (05:27)
[2022-01-30] MEDS ORDERED: IBUPROFEN 600 MG TAB PO STA (05:27)
--- NOTE | 2022-01-30 05:28 | ED ---
Recheck HPI - General Chief Complaint: Recheck/Abnormal Lab/Rx Stated Complaint: PO surgery infection,PO VMS device placement Time Seen by Provider: 01/30/22 03:51 Source: patient, RN notes reviewed, old records reviewed Mode of arrival: ambulatory Limitations: no limitations - History of Present Illness Initial Comments: This is a 56-year-old female well-known to this emergency department. Patient coming in for a check of recent surgery. Patient again anesthetized placed for pain seizures. Patient believes that the area is currently a little bit more warm and swollen, surgery was about 5 days ago. No shortness of breath no other complaints no cough or congestion no dysuria no nausea vomiting or diarrhea. Patient is complaining of increased pain to that area MD Complaint: wound re-check, abnormal lab Returns Today for: Called Because of Abnormal Lab/Test, persistent/worsening pain related to initial visit Symptoms Since Prior Visit: worsening pain Associated Symptoms: none Treatments Prior to Arrival: Given Pain Meds on - Related Data Home Medications Medication Instructions Recorded Confirmed lamoTRIgine [LaMICtal] 200 mg PO BID 09/26/18 12/22/21 Topiramate 50 mg PO BID 12/19/19 12/22/21 Sertraline (Unknown Dose) 1.5 tab PO QAM 12/17/21 12/22/21 Allergies Allergy/AdvReac Type Severity Reaction Status Date / Time erythromycin base Allergy Rash/Hives Verified 12/22/21 09:55 gadobutrol [From Gadavist] Allergy Anaphylaxis Verified 12/22/21 09:55 Gadolinium-Containing Allergy Anaphylaxis Verified 12/22/21 09:55 Contrast Medi iodine Allergy Anaphylaxis Verified 12/22/21 09:55 ketorolac tromethamine Allergy Rash/Hives/ Verified 12/22/21 09:55 [From Toradol] hallucinati ons Penicillins Allergy Anaphylaxis Verified 12/22/21 09:55 vancomycin Allergy Anaphylaxis Verified 01/30/22 04:29 azithromycin AdvReac red face Verified 12/22/21 09:55 codeine AdvReac Rash/Hives Verified 01/30/22 04:29 lorazepam [From Ativan] AdvReac Hallucinati Verified 12/22/21 09:55 ons Review of Systems ROS Statement: Those systems with pertinent positive or pertinent negative responses have been documented in the HPI. ROS Other: All systems not noted in ROS Statement are negative. Past Medical History Past Medical History: Blood Disorder, Cancer, Fibromyalgia, Pneumonia, Seizure Disorder, Syncope Additional Past Medical History / Comment(s): Migraines. 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 Insomnia. Hx colon cancer X2 (last 2020). Diarrhea and bleeding. Episodes of "passing out". 6 bulging discs in neck. HX BLOOD TRANSFUSIONS FOR LOW HGB. Tachycardia, has Loop Recorder. History of Any Multi-Drug Resistant Organisms: MRSA Date of last positivie culture/infection: 08/10/19 MDRO Source:: URINE Past Surgical History: Appendectomy, Bowel Resection, Cholecystectomy, Ear Surgery, Hysterectomy, Orthopedic Surgery Additional Past Surgical History / Comment(s): Bilateral knee arthroscopy, hiatal hernia surgery, right ear surgery to remove middle ear, lymph node biopsy right armpit, loop recorder, surgery on 3 blocked sweat glands.vagus nerve stimulator Past Anesthesia/Blood Transfusion Reactions: Postoperative Nausea & Vomiting (PONV) Additional Past Anesthesia/Blood Transfusion Reaction / Comment(s): Pt has received blood in past without reaction. Past Psychological History: Anxiety Smoking Status: Never smoker Past Alcohol Use History: None Reported Past Drug Use History: None Reported - Past Family History Mother Family Medical History: No Reported History Additional Family Medical History / Comment(s): . Father Family Medical History: No Reported History Additional Family Medical History / Comment(s): Father is healthy General Exam - General Exam Comments Initial Comments: Incision is clean dry and intact There is no significant cellulitis surrounding area of device Patient does have some warmth that area and tenderness Limitations: no limitations General appearance: alert, in no apparent distress Head exam: Present: atraumatic, normocephalic, normal inspection Eye exam: Present: normal appearance, PERRL, EOMI. Absent: scleral icterus, conjunctival injection, periorbital swelling ENT exam: Present: normal exam, mucous membranes moist Neck exam: Present: normal inspection. Absent: tenderness, meningismus, lymphadenopathy Respiratory exam: Present: normal lung sounds bilaterally. Absent: respiratory distress, wheezes, rales, rhonchi, stridor Cardiovascular Exam: Present: regular rate, normal rhythm, normal heart sounds. Absent: systolic murmur, diastolic murmur, rubs, gallop, clicks GI/Abdominal exam: Present: soft, normal bowel sounds. Absent: distended, tenderness, guarding, rebound, rigid Extremities exam: Present: normal inspection, full ROM, normal capillary refill. Absent: tenderness, pedal edema, joint swelling, calf tenderness Back exam: Present: normal inspection Neurological exam: Present: alert, oriented X3, CN II-XII intact Psychiatric exam: Present: normal affect, normal mood Skin exam: Present: warm, dry, intact, normal color. Absent: rash Course Vital Signs 01/30/22 04:25 Temperature 98.2 F Pulse Rate 79 Respiratory 16 Rate Blood Pressure 149/75 O2 Sat by Pulse 99 Oximetry - Reevaluation(s) Reevaluation #1: 01/30/22 Medical record is reviewed Reevaluation #2: 01/30/22 Patient informed of results and questions answered Reevaluation #3: 01/30/22 Patient's pain is controlled Medical Decision Making - Medical Decision Making 56 female to the emergency department for evaluation of possible postoperative infection. Some warmth to the area but no significant cellulitis inflammatory markers are normal patient will be placed on oral antibiotics to follow up with surgery - Lab Data Result diagrams: 01/30/22 05:49 01/30/22 05:49 Lab Results 01/30/22 01/30/22 01/30/22 Range/Units 05:49 05:49 05:49 WBC 8.0 (3.8-10.6) k/uL RBC 4.14 (3.80-5.40) m/uL Hgb 12.0 (11.4-16.0) gm/dL Hct 36.0 (34.0-46.0) % MCV 86.9 (80.0-100.0) fL MCH 28.9 (25.0-35.0) pg MCHC 33.3 (31.0-37.0) g/dL RDW 14.8 (11.5-15.5) % Plt Count 246 (150-450) k/uL MPV 7.8 Neutrophils % 74 % Lymphocytes % 19 % Monocytes % 3 % Eosinophils % 3 % Basophils % 1 % Neutrophils # 5.9 (1.3-7.7) k/uL Lymphocytes # 1.5 (1.0-4.8) k/uL Monocytes # 0.3 (0-1.0) k/uL Eosinophils # 0.2 (0-0.7) k/uL Basophils # 0.0 (0-0.2) k/uL ESR (0-20) mm/hr Sodium 141 (137-145) mmol/L Potassium 3.9 (3.5-5.1) mmol/L Chloride 108 H (98-107) mmol/L Carbon Dioxide 20 L (22-30) mmol/L Anion Gap 13 mmol/L BUN 32 H (7-17) mg/dL Creatinine 0.77 (0.52-1.04) mg/dL Est GFR (CKD-EPI)AfAm >90 (>60 ml/min/1.73 sqM) Est GFR (CKD-EPI)NonAf 87 (>60 ml/min/1.73 sqM) Glucose 96 (74-99) mg/dL Plasma Lactic Acid Williams 1.1 (0.7-2.0) mmol/L Calcium 9.4 (8.4-10.2) mg/dL Phosphorus 5.0 H (2.5-4.5) mg/dL Magnesium 2.0 (1.6-2.3) mg/dL Total Bilirubin 0.3 (0.2-1.3) mg/dL AST 28 (14-36) U/L ALT 21 (4-34) U/L Alkaline Phosphatase 184 H (38-126) U/L C-Reactive Protein 0.7 (<1.0) mg/dL Total Protein 7.1 (6.3-8.2) g/dL Albumin 4.2 (3.5-5.0) g/dL 01/30/22 Range/Units 06:15 WBC (3.8-10.6) k/uL RBC (3.80-5.40) m/uL Hgb (11.4-16.0) gm/dL Hct (34.0-46.0) % MCV (80.0-100.0) fL MCH (25.0-35.0) pg MCHC (31.0-37.0) g/dL RDW (11.5-15.5) % Plt Count (150-450) k/uL MPV Neutrophils % % Lymphocytes % % Monocytes % % Eosinophils % % Basophils % % Neutrophils # (1.3-7.7) k/uL Lymphocytes # (1.0-4.8) k/uL Monocytes # (0-1.0) k/uL Eosinophils # (0-0.7) k/uL Basophils # (0-0.2) k/uL ESR 36 H (0-20) mm/hr Sodium (137-145) mmol/L Potassium (3.5-5.1) mmol/L Chloride (98-107) mmol/L Carbon Dioxide (22-30) mmol/L Anion Gap mmol/L BUN (7-17) mg/dL Creatinine (0.52-1.04) mg/dL Est GFR (CKD-EPI)AfAm (>60 ml/min/1.73 sqM) Est GFR (CKD-EPI)NonAf (>60 ml/min/1.73 sqM) Glucose (74-99) mg/dL Plasma Lactic Acid Williams (0.7-2.0) mmol/L Calcium (8.4-10.2) mg/dL Phosphorus (2.5-4.5) mg/dL Magnesium (1.6-2.3) mg/dL Total Bilirubin (0.2-1.3) mg/dL AST (14-36) U/L ALT (4-34) U/L Alkaline Phosphatase (38-126) U/L C-Reactive Protein (<1.0) mg/dL Total Protein (6.3-8.2) g/dL Albumin (3.5-5.0) g/dL - Radiology Data Radiology results: report reviewed (Chest x-rays negative for acute disease), image reviewed Disposition Clinical Impression: Postoperative pain Disposition: HOME SELF-CARE Condition: Good Instructions (If sedation given, give patient instructions): Pain Management After Surgery (DC) Is patient prescribed a controlled substance at d/c from ED?: No Referrals: Scott Medrano MD [Primary Care Provider] - 1-2 days Time of Disposition: 06:30
[2022-01-30 06:05] LABS: Basophils % (A) 1 %; Eosinophils # (A) 0.2 k/uL (0-0.7); Eosinophils % (A) 3 %; Lymphocytes # (A) 1.5 k/uL (1.0-4.8); Lymphocytes % (A) 19 %; MCH 28.9 pg (25.0-35.0); MCHC 33.3 g/dL (31.0-37.0); MCV 86.9 fL (80.0-100.0); Mean Platelet Volume 7.8; Monocytes # (A) 0.3 k/uL (0-1.0); Monocytes % (A) 3 %; Neutrophils # (A) 5.9 k/uL (1.3-7.7); Neutrophils % (A) 74 %; Platelet Count 246 k/uL (150-450); RBC 4.14 m/uL (3.80-5.40); RDW 14.8 % (11.5-15.5)
[2022-01-30 06:26] LABS: ALT 21 U/L (4-34); AST 28 U/L (14-36); African American GFR (CKD) >90 (>60 ml/min/1.73 sqM); Albumin 4.2 g/dL (3.5-5.0); Alkaline Phosphatase 184 U/L (38-126); Anion Gap 13 mmol/L; Blood Urea Nitrogen 32 mg/dL (7-17); C Reactive Protein 0.7 mg/dL (<1.0); Calcium 9.4 mg/dL (8.4-10.2); Carbon Dioxide 20 mmol/L (22-30); Chloride 108 mmol/L (98-107); Glucose 96 mg/dL (74-99); Non-African American GFR(CKD) 87 (>60 ml/min/1.73 sqM); Potassium 3.9 mmol/L (3.5-5.1); Sodium 141 mmol/L (137-145); Total Bilirubin 0.3 mg/dL (0.2-1.3); Total Protein 7.1 g/dL (6.3-8.2)
[2022-01-30] MEDS ORDERED: CEPHALEXIN 500MG STARTER PACK 4 CAP BTL PO STA (06:30)
[2022-01-30] MEDS ORDERED: cefTRIAXone IN SWFI 1,000 MG/10 ML SYRINGE IVP STA (06:30)
[2022-01-30] MEDS ORDERED: CEPHALEXIN 500 MG CAP PO STA (06:30)
--- NOTE | 2022-01-30 06:35 | XR ---
EXAMINATION TYPE: XR chest 2V DATE OF EXAM: 01/30/2022 COMPARISON: NONE HISTORY: Weakness TECHNIQUE: 2 view FINDINGS: Heart is normal. Lungs are clear of infiltrate. No heart failure. There is left axillary im planted device. No pleural effusion. Bony thorax is intact. IMPRESSION: No active cardiopulmonary disease. Normal heart.
== END 2022-01-30 07:16 | disposition home or self-care (01) ==
LOC: EC 03:47
DX: G89.18 Other acute postprocedural pain (principal); F41.9 Anxiety disorder, unspecified; Z88.1 Allergy status to other antibiotic agents; Z88.8 Allergy status to other drugs, medicaments and biological substances; Z91.041 Radiographic dye allergy status; Z88.6 Allergy status to analgesic agent; Z88.0 Allergy status to penicillin; Z88.5 Allergy status to narcotic agent
CPT/HCPCS: 36415; 80053; 85652; 83605; 83735; 84100; 85025; 86140; 87040; 71046; 99283; 96374; 96375; J2270; J0696; 96361

== ENCOUNTER 2022-02-01 18:53 | Emergency (ER) | payer OTHER ==
[2022-02-01 19:28] VITALS: RESP 18; TEMP 98.1
[2022-02-01] MEDS ORDERED: SODIUM CHLORIDE 0.9% 1,000 ML IV STA (23:32)
[2022-02-01] MEDS ORDERED: MORPHINE SULFATE 4 MG/ML SYRINGE IV STA (23:32)
[2022-02-01] MEDS ORDERED: ONDANSETRON 4 MG/2 ML VIAL IVP STA (23:33)
[2022-02-01] MEDS ORDERED: CLINDAMYCIN 600 MG in DEXTROSE 5% IN WATER 50 ML IVPB STA ×2 (23:34)
--- NOTE | 2022-02-01 23:38 | ED ---
Skin/Abscess/FB HPI - General Chief complaint: Skin/Abscess/Foreign Body Stated complaint: possible infection, trouble swallowing Time Seen by Provider: 02/01/22 23:04 Source: patient, RN notes reviewed Mode of arrival: ambulatory Limitations: no limitations - History of Present Illness Initial comments: This is a pleasant 56-year-old female with a history of seizure disorder as well as multiple other medical comorbidities as noted in the history. Patient presents today complaining of soreness to the left anterior lateral portion of her neck and upper chest area after having surgery at [facility] by Dr. Victor, a neurosurgeon. Patient states she had a device placed to stimulate the vagus nerve to daria seizures. Patient states since then she has had increased swelling and irritation to the area. Patient complaining of pain to the area which is aspirin by palpation and swallowing. Patient has had no known fever. Patient was put on Keflex here a few days ago but had a dermatologic reaction to it. No headache, no fever or chills, no changes in vision or hearing, no difficulty with speech, no neck pain, no chest pain or shortness of breath, no abdominal pain, no nausea or vomiting, no changes in urination or bowel movements, no numbness or tingling, no extremity pain, no skin rashes or lesions. Past medical, surgical, social, and family history reviewed. - Related Data Home Medications Medication Instructions Recorded Confirmed lamoTRIgine [LaMICtal] 200 mg PO BID 09/26/18 12/22/21 Topiramate 50 mg PO BID 12/19/19 12/22/21 Sertraline (Unknown Dose) 1.5 tab PO QAM 12/17/21 12/22/21 Previous Rx's Medication Instructions Recorded Clindamycin [Cleocin] 300 mg PO Q6H #40 capsule 02/02/22 Allergies Allergy/AdvReac Type Severity Reaction Status Date / Time erythromycin base Allergy Rash/Hives Verified 12/22/21 09:55 gadobutrol [From Gadavist] Allergy Anaphylaxis Verified 12/22/21 09:55 Gadolinium-Containing Allergy Anaphylaxis Verified 12/22/21 09:55 Contrast Medi iodine Allergy Anaphylaxis Verified 12/22/21 09:55 ketorolac tromethamine Allergy Rash/Hives/ Verified 12/22/21 09:55 [From Toradol] hallucinati ons Penicillins Allergy Anaphylaxis Verified 12/22/21 09:55 vancomycin Allergy Anaphylaxis Verified 01/30/22 04:29 azithromycin AdvReac red face Verified 12/22/21 09:55 cephalexin [From Keflex] AdvReac Rash/Hives Verified 02/01/22 19:27 codeine AdvReac Rash/Hives Verified 01/30/22 04:29 lorazepam [From Ativan] AdvReac Hallucinati Verified 12/22/21 09:55 ons Review of Systems ROS Statement: Those systems with pertinent positive or pertinent negative responses have been documented in the HPI. ROS Other: All systems not noted in ROS Statement are negative. Past Medical History Past Medical History: Blood Disorder, Cancer, Fibromyalgia, Pneumonia, Seizure Disorder, Syncope Additional Past Medical History / Comment(s): Migraines. 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 Insomnia. Hx colon cancer X2 (last 2020). Diarrhea and bleeding. Episodes of "passing out". 6 bulging discs in neck. HX BLOOD TRANSFUSIONS FOR LOW HGB. Tachycardia, has Loop Recorder. History of Any Multi-Drug Resistant Organisms: MRSA Date of last positivie culture/infection: 08/10/19 MDRO Source:: URINE Past Surgical History: Appendectomy, Bowel Resection, Cholecystectomy, Ear Surgery, Hysterectomy, Orthopedic Surgery Additional Past Surgical History / Comment(s): Bilateral knee arthroscopy, hiatal hernia surgery, right ear surgery to remove middle ear, lymph node biopsy right armpit, loop recorder, surgery on 3 blocked sweat glands.vagus nerve stimulator Past Anesthesia/Blood Transfusion Reactions: Postoperative Nausea & Vomiting (PONV) Additional Past Anesthesia/Blood Transfusion Reaction / Comment(s): Pt has r eceived blood in past without reaction. Past Psychological History: Anxiety Smoking Status: Never smoker Past Alcohol Use History: None Reported Past Drug Use History: None Reported - Past Family History Mother Family Medical History: No Reported History Additional Family Medical History / Comment(s): . Father Family Medical History: No Reported History Additional Family Medical History / Comment(s): Father is healthy General Exam - General Exam Comments Initial Comments: Patient does not appear to be ill or toxic. Patient does have some discomfort to the postsurgical area on her left anterior neck. There is no dehiscence. Steri-Strips and sutures in place. No definitive erythema. No drainage. Limitations: no limitations General appearance: alert, in distress Head exam: Present: atraumatic, normocephalic, normal inspection Eye exam: Present: normal appearance, PERRL, EOMI. Absent: scleral icterus, conjunctival injection, periorbital swelling ENT exam: Present: normal exam, normal oropharynx, mucous membranes dry, mucous membranes moist, normal external ear exam Neck exam: Present: normal inspection, tenderness (Over the postsurgical area to left neck), full ROM, other (No definitive erythema). Absent: meningismus, lymp hadenopathy Respiratory exam: Present: normal lung sounds bilaterally. Absent: respiratory distress, wheezes, rales, rhonchi, stridor Cardiovascular Exam: Present: regular rate, normal rhythm, normal heart sounds. Absent: systolic murmur, diastolic murmur, rubs, gallop, clicks GI/Abdominal exam: Present: soft, normal bowel sounds. Absent: distended, tenderness, guarding, rebound, rigid Extremities exam: Present: normal inspection, full ROM, normal capillary refill. Absent: tenderness, pedal edema, joint swelling, calf tenderness Back exam: Present: normal inspection Neurological exam: Present: alert, oriented X3, CN II-XII intact Psychiatric exam: Present: normal affect, normal mood Skin exam: Present: warm, dry, intact, normal color. Absent: rash Course Vital Signs 02/01/22 19:25 Temperature 98.1 F Pulse Rate 77 Respiratory 18 Rate Blood Pressure 154/67 O2 Sat by Pulse 99 Oximetry - Reevaluation(s) Reevaluation #1: 02/02/22 01:51 Medical record is reviewed Symptoms are improved here in the emergency department Patient is informed of results and questions answered Patient in no distress Medical Decision Making - Medical Decision Making Possible early postsurgical seroma or abscess. Patient does not appear to be systemically ill. Vital signs are reviewed. Patient hemodynamically stable. Patient does have ALLERGY to contrast agent. I'm going to order a plain computed tomography scan to further delineate the area as well as blood work. We'll start the patient on clindamycin as she was placed on antibiotics but discontinued them on her own after having a reaction. Patient's workup, to include computed tomography scan shows no evidence of fluid collection or abscess. Patient's laboratory investigations were essentially normal. Patient did have some abnormalities a CMP which she has had previously. Namely elevated alkaline phosphatase. CO2 level of 20 was fairly nonspecific. Treatment the patient with clindamycin, 10 day course. Certainly she could have early infection here. However she is in no distress at discharge. His hemodynamically stable. We'll have her follow-up with her regular physician without fail next 48 hours. Patient concurs with this treatment plan. Patient was told to return to the ER for any signs or symptoms worsen. Told to return immediately if any other problems arise. All questions answered. Treatment plan discussed. Patient in agreement Every effort has been made to ensure accuracy of this dictation. However, due t o the limitations of electronic medical records and dictation devices, errors in charting still occur. Marlene or Dr. Haley - Lab Data Result diagrams: 02/02/22 00:12 02/02/22 00:12 Lab Results 02/02/22 02/02/22 02/02/22 Range/Units 00:12 00:12 00:12 WBC 8.2 (3.8-10.6) k/uL RBC 4.02 (3.80-5.40) m/uL Hgb 11.8 (11.4-16.0) gm/dL Hct 35.0 (34.0-46.0) % MCV 87.2 (80.0-100.0) fL MCH 29.3 (25.0-35.0) pg MCHC 33.7 (31.0-37.0) g/dL RDW 14.6 (11.5-15.5) % Plt Count 244 (150-450) k/uL MPV 7.8 Neutrophils % 70 % Lymphocytes % 22 % Monocytes % 4 % Eosinophils % 3 % Basophils % 1 % Neutrophils # 5.7 (1.3-7.7) k/uL Lymphocytes # 1.8 (1.0-4.8) k/uL Monocytes # 0.3 (0-1.0) k/uL Eosinophils # 0.2 (0-0.7) k/uL Basophils # 0.1 (0-0.2) k/uL Sodium 140 (137-145) mmol/L Potassium 3.6 (3.5-5.1) mmol/L Chloride 107 (98-107) mmol/L Carbon Dioxide 20 L (22-30) mmol/L Anion Gap 13 mmol/L BUN 24 H (7-17) mg/dL Creatinine 0.82 (0.52-1.04) mg/dL Est GFR (CKD-EPI)AfAm >90 (>60 ml/min/1.73 sqM) Est GFR (CKD-EPI)NonAf 80 (>60 ml/min/1.73 sqM) Glucose 94 (74-99) mg/dL Plasma Lactic Acid Williams 0.7 (0.7-2.0) mmol/L Calcium 9.3 (8.4-10.2) mg/dL Total Bilirubin 0.4 (0.2-1.3) mg/dL AST 33 (14-36) U/L ALT 35 H (4-34) U/L Alkaline Phosphatase 260 H (38-126) U/L Total Protein 7.2 (6.3-8.2) g/dL Albumin 4.3 (3.5-5.0) g/dL Disposition Clinical Impression: Other acute postoperative pain Narrative: Postoperative pain, implant, left neck Disposition: HOME SELF-CARE Condition: Good Instructions (If sedation given, give patient instructions): Pain Management After Surgery (DC) Additional Instructions: Follow-up with your regular physician in one to 2 days. Optimally, you be rechecked by the performing surgeon. Take the antibiotics as directed. Deep the wound clean and covered. Follow-up with your regular physician as directed. Return to the ER immediately if any symptoms worsen, new symptoms arise, or any other problems develop. Prescriptions: Clindamycin [Cleocin] 300 mg PO Q6H #40 capsule Is patient prescribed a controlled substance at d/c from ED?: No Referrals: Scott Medrano MD [Primary Care Provider] - 1-2 days Time of Disposition: 01:49
[2022-02-02 00:41] LABS: Basophils # (A) 0.1 k/uL (0-0.2); Basophils % (A) 1 %; Eosinophils # (A) 0.2 k/uL (0-0.7); Eosinophils % (A) 3 %; HGB 11.8 gm/dL (11.4-16.0); Lymphocytes # (A) 1.8 k/uL (1.0-4.8); Lymphocytes % (A) 22 %; MCH 29.3 pg (25.0-35.0); MCHC 33.7 g/dL (31.0-37.0); MCV 87.2 fL (80.0-100.0); Mean Platelet Volume 7.8; Monocytes # (A) 0.3 k/uL (0-1.0); Monocytes % (A) 4 %; Neutrophils # (A) 5.7 k/uL (1.3-7.7); Neutrophils % (A) 70 %; Platelet Count 244 k/uL (150-450); RBC 4.02 m/uL (3.80-5.40); RDW 14.6 % (11.5-15.5); WBC 8.2 k/uL (3.8-10.6)
[2022-02-02 00:50] LABS: ALT 35 U/L (4-34); AST 33 U/L (14-36); African American GFR (CKD) >90 (>60 ml/min/1.73 sqM); Albumin 4.3 g/dL (3.5-5.0); Alkaline Phosphatase 260 U/L (38-126); Anion Gap 13 mmol/L; Blood Urea Nitrogen 24 mg/dL (7-17); Calcium 9.3 mg/dL (8.4-10.2); Carbon Dioxide 20 mmol/L (22-30); Chloride 107 mmol/L (98-107); Glucose 94 mg/dL (74-99); Non-African American GFR(CKD) 80 (>60 ml/min/1.73 sqM); Potassium 3.6 mmol/L (3.5-5.1); Sodium 140 mmol/L (137-145); Total Bilirubin 0.4 mg/dL (0.2-1.3); Total Protein 7.2 g/dL (6.3-8.2)
--- NOTE | 2022-02-02 01:12 | CT ---
EXAMINATION TYPE: CT soft tissue neck wo con DATE OF EXAM: 02/02/2022 COMPARISON: HISTORY: lt neck mass/edema post surgical VNS, difficulty swallowing, possible infection CT DLP: 314.9 mGycm Automated exposure control for dose reduction was used. Images obtained from the aortic arch to the frontal sinuses with no contrast. There is normal branching pattern of the great vessels on the aortic arch. Superior mediastinum is in tact. Thyroid gland is symmetric. Trachea is intact. Epiglottis appears normal. There are a few anter ior triangle bilateral cervical lymph nodes up to 1 cm. No cervical adenopathy. Parotid glands are sy mmetric. Submandibular salivary glands are symmetric. The nasal bone is intact. No evidence of orbital mass. No retro-orbital mass. There is fairly normal aeration of the paranasal sinuses. The tonsils and adenoids appear normal. Pre vertebral soft tissues are intact. No pathologic fluid collection. There is a stimulator implant noted on the left upper chest with elec trode extending to the left anterior neck. There is minimal fat stranding around the electrode. IMPRESSION: Postsurgical changes with stimulator implanted in the left anterior neck. Minimal stranding around th e electrode. No discrete drainable fluid collection. Otherwise negative CT scan of the neck.
[2022-02-02 02:26] VITALS: BP 157/73; PULSE 72
== END 2022-02-02 02:26 | disposition home or self-care (01) ==
LOC: EC 18:53
DX: G89.18 Other acute postprocedural pain (principal); F41.9 Anxiety disorder, unspecified; Z88.1 Allergy status to other antibiotic agents; Z88.0 Allergy status to penicillin; Z91.041 Radiographic dye allergy status; Z88.8 Allergy status to other drugs, medicaments and biological substances; Z88.5 Allergy status to narcotic agent; Z79.899 Other long term (current) drug therapy
CPT/HCPCS: 36415; 80053; 83605; 85025; 87040; 70490; 99284; J2270; J2405

== ENCOUNTER 2022-02-15 05:06 | Emergency (ER) | payer OTHER ==
[2022-02-15 05:13] VITALS: TEMP 98.8
[2022-02-15] MEDS ORDERED: diphenhydrAMINE 50 MG/ML 1 ML VIAL IVP STA (05:26)
[2022-02-15] MEDS ORDERED: methylPREDNISolone SOD SUCCI 125 MG/2 ML VIAL IV STA (05:26)
[2022-02-15] MEDS ORDERED: FAMOTIDINE 20 MG/2 ML VIAL IV STA (05:26)
[2022-02-15] MEDS ORDERED: traMADol 50 MG TAB PO STA (05:41)
[2022-02-15 05:49] LABS: Basophils % (A) 0 %; Eosinophils # (A) 0.2 k/uL (0-0.7); Eosinophils % (A) 2 %; HCT 35.2 % (34.0-46.0); HGB 11.7 gm/dL (11.4-16.0); Hypochromasia Slight; Lymphocytes % (A) 24 %; MCHC 33.2 g/dL (31.0-37.0); MCV 87.4 fL (80.0-100.0); Monocytes # (A) 0.3 k/uL (0-1.0); Monocytes % (A) 4 %; Neutrophils # (A) 5.7 k/uL (1.3-7.7); Neutrophils % (A) 69 %; Platelet Count 271 k/uL (150-450); RBC 4.02 m/uL (3.80-5.40); RDW 14.6 % (11.5-15.5); WBC 8.4 k/uL (3.8-10.6)
[2022-02-15 06:04] LABS: ALT 16 U/L (4-34); African American GFR (CKD) >90 (>60 ml/min/1.73 sqM); Albumin 4.1 g/dL (3.5-5.0); Anion Gap 8 mmol/L; Blood Urea Nitrogen 26 mg/dL (7-17); C Reactive Protein 0.9 mg/dL (<1.0); Calcium 9.1 mg/dL (8.4-10.2); Carbon Dioxide 19 mmol/L (22-30); Chloride 112 mmol/L (98-107); Glucose 102 mg/dL (74-99); Non-African American GFR(CKD) 80 (>60 ml/min/1.73 sqM); Potassium 5.3 mmol/L (3.5-5.1); Sodium 139 mmol/L (137-145); Total Bilirubin 0.6 mg/dL (0.2-1.3); Total Protein 7.2 g/dL (6.3-8.2)
[2022-02-15 06:05] LABS: AST 32 U/L (14-36); Alkaline Phosphatase 173 U/L (38-126)
--- NOTE | 2022-02-15 06:38 | CT ---
EXAMINATION TYPE: CT neck chest w con DATE OF EXAM: 02/15/2022 6:26 AM COMPARISON: CT neck February 02, 2022. CT chest June 19, 2021. HISTORY: vns stimulator pain. CT DLP: 927.7 mGycm Automated exposure control for dose reduction was used. CONTRAST: CT scan of the neck and chest are performed following with IV Contrast, patient injected with 100 mL of Isovue 300. Axial images are obtained, coronal and sagittal reformatted images are reviewed. FINDINGS: Airway: No gross abnormality seen. Parotid/submandibular glands: No gross abnormality seen. Carotid/Vascular Structures: Mild calcified plaque right carotid bulb level. No significant stenosis. Osseous Structures: No significant abnormality. Other: Redemonstration of left anterior upper chest wall and neck stimulator device having thin-casey d fluid collection surrounding the upper chest wall port on the left and persistent thin-walled fluid collection along with adjacent surrounding ill-defined fluid along the lead extending into the left neck anterior to the left SCM muscle and finally terminating between the left common carotid artery a nd left internal jugular vein. CHEST: FINDINGS: LUNGS: Motion artifact is present limiting evaluation for subcentimeter nodules. Stable 4 mm lateral right lower lobe nodule axial image 29. No suspicious focal consolidation. No pleural effusion or pne umothorax seen bilaterally. MEDIASTINUM: There are no greater than 1 cm hilar or mediastinal lymph nodes. No pericardial effusi on is seen. Cardiomegaly with enlarged main pulmonary artery suggesting underlying pulmonary hyperte nsion is redemonstrated. OTHER: Cholecystectomy clips are redemonstrated. Surgical clips just below the diaphragm again seen n ear gastroesophageal junction. IMPRESSION: Ill-defined fluid and focal thin-walled fluid surrounds significant portion of the stimul ator device and is more prominent from CT study roughly 2 weeks earlier suggesting infection of impla nted stimulator subcutaneous device.
[2022-02-15 06:41] LABS: Erythrocyte Sedimentation Rate 40 mm/hr (0-20)
[2022-02-15 06:52] VITALS: RESP 18
--- NOTE | 2022-02-15 07:17 | ED ---
General Adult HPI - General Chief complaint: Skin/Abscess/Foreign Body Stated complaint: Post-Op Complications Time Seen by Provider: 02/15/22 05:17 Source: patient Mode of arrival: ambulatory Limitations: no limitations - History of Present Illness Initial comments: 's patient is a 56-year-old woman who presents with a concern that she believes she is having worsening infection along the tract of her vagus nerve stimulator. The patient states that she had this device implanted on January [address] [facility] on [place]. She states that she was subsequently seen (01/30) because she thought that the insertion site had infection and she was started on antibiotic. The patient states that she started to develop a rash after this antibiotic, so she returned here on February 02 and was switched to clindamycin. She completed a course of antibiotic and is not feeling better. Patient complains of pain along the tract. She has not noticed systemic symptoms, no fever or chills. No dyspnea, cough, alterations or syncope. She states that she attempted to follow-up with the surgeon but was not able to get into clinic there. Onset/Timin -: week(s) Location: neck, chest Radiation: non-radiation Quality: dull Consistency: constant Improves with: none Worsens with: none Associated Symptoms: denies other symptoms Treatments Prior to Arrival: other (Antibiotics) - Related Data Home Medications Medication Instructions Recorded Confirmed lamoTRIgine [LaMICtal] 200 mg PO BID 09/26/18 12/22/21 Topiramate 50 mg PO BID 12/19/19 12/22/21 Sertraline (Unknown Dose) 1.5 tab PO QAM 12/17/21 12/22/21 Previous Rx's Medication Instructions Recorded Clindamycin [Cleocin] 300 mg PO Q6H #40 capsule 02/02/22 Allergies Allergy/AdvReac Type Severity Reaction Status Date / Time erythromycin base Allergy Rash/Hives Verified 02/15/22 05:10 gadobutrol [From Gadavist] Allergy Anaphylaxis Verified 02/15/22 05:10 Gadolinium-Containing Allergy Anaphylaxis Verified 02/15/22 05:10 Contrast Medi iodine Allergy Anaphylaxis Verified 02/15/22 05:10 ketorolac tromethamine Allergy Rash/Hives/ Verified 02/15/22 05:10 [From Toradol] hallucinati ons Penicillins Allergy Anaphylaxis Verified 02/15/22 05:10 vancomycin Allergy Anaphylaxis Verified 02/15/22 05:10 azithromycin AdvReac red face Verified 02/15/22 05:10 cephalexin [From Keflex] AdvReac Rash/Hives Verified 02/15/22 05:10 codeine AdvReac Rash/Hives Verified 02/15/22 05:10 lorazepam [From Ativan] AdvReac Hallucinati Verified 02/15/22 05:10 ons Review of Systems ROS Statement: Those systems with pertinent positive or pertinent negative responses have been documented in the HPI. ROS Other: All systems not noted in ROS Statement are negative. Constitutional: Denies: fever, chills, weakness ENT: Reports: as per HPI, throat pain Respiratory: Denies: cough, dyspnea, wheezes Cardiovascular: Reports: as per HPI, chest pain. Denies: palpitations, syncope Gastrointestinal: Denies: abdominal pain, vomiting, diarrhea Genitourinary: Denies: dysuria, hematuria Musculoskeletal: Denies: back pain Skin: Denies: rash Neurological: Denies: headache, weakness, numbness Past Medical History Past Medical History: Blood Disorder, Cancer, Fibromyalgia, Pneumonia, Seizure Disorder, Syncope Additional Past Medical History / Comment(s): Migraines. 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 Insomnia. Hx colon cancer X2 (last 2020). Diarrhea and bleeding. Episodes of "passing out". 6 bulging discs in neck. HX BLOOD TRANSFUSIONS FOR LOW HGB. Tachycardia, has Loop Recorder. History of Any Multi-Drug Resistant Organisms: MRSA Date of last positivie culture/infection: 08/10/19 MDRO Source:: URINE Past Surgical History: Appendectomy, Bowel Resection, Cholecystectomy, Ear Surgery, Hysterectomy, Orthopedic Surgery Additional Past Surgical History / Comment(s): Bilateral knee arthroscopy, hiatal hernia surgery, right ear surgery to remove middle ear, lymph node biopsy right armpit, loop recorder, surgery on 3 blocked sweat glands.vagus nerve stimulator Past Anesthesia/Blood Transfusion Reactions: Postoperative Nausea & Vomiting (PONV) Additional Past Anesthesia/Blood Transfusion Reaction / Comment(s): Pt has received blood in past without reaction. Past Psychological History: Anxiety Smoking Status: Never smoker Past Alcohol Use History: None Reported Past Drug Use History: None Reported - Past Family History Mother Family Medical History: No Reported History Additional Family Medical History / Comment(s): . Father Family Medical History: No Reported History Additional Family Medical History / Comment(s): Father is healthy General Exam Limitations: no limitations General appearance: alert, in no apparent distress Head exam: Present: atraumatic, normocephalic Eye exam: Present: normal appearance. Absent: scleral icterus, conjunctival injection ENT exam: Present: normal oropharynx Respiratory exam: Present: normal lung sounds bilaterally. Absent: respiratory distress, wheezes, rales, rhonchi, stridor Cardiovascular Exam: Present: regular rate, normal rhythm, normal heart sounds. Absent: systolic murmur, diastolic murmur, rubs, gallop GI/Abdominal exam: Present: soft. Absent: distended, tenderness, guarding, rebound, rigid, mass Extremities exam: Present: normal inspection, normal capillary refill. Absent: pedal edema Back exam: Present: normal inspection. Absent: CVA tenderness (R), CVA tendern ess (L) Neurological exam: Present: alert Skin exam: Present: warm, dry, intact, erythema, other (The patient does have some erythema and warmth at the site of the vagus nerve stimulator. There is some fluctuance around the device.). Absent: rash Course Vital Signs 02/15/22 02/15/22 02/15/22 05:10 06:51 08:02 Temperature 98.8 F Pulse Rate 83 73 66 Respiratory 16 18 18 Rate Blood Pressure 145/69 146/77 137/66 O2 Sat by Pulse 98 96 97 Oximetry Medical Decision Making - Medical Decision Making Patient's 56-year-old woman with increasing discomfort around the site of her new vagus nerve stimulator. She has completed a course of antibiotics but continues to have discomfort in fact she feels worse. - Lab Data Result diagrams: 02/15/22 05:36 02/15/22 05:36 Lab Results 02/15/22 02/15/22 Range/Units 05:36 05:36 WBC 8.4 (3.8-10.6) k/uL RBC 4.02 (3.80-5.40) m/uL Hgb 11.7 (11.4-16.0) gm/dL Hct 35.2 (34.0-46.0) % MCV 87.4 (80.0-100.0) fL MCH 29.0 (25.0-35.0) pg MCHC 33.2 (31.0-37.0) g/dL RDW 14.6 (11.5-15.5) % Plt Count 271 (150-450) k/uL MPV 8.0 Neutrophils % 69 % Lymphocytes % 24 % Monocytes % 4 % Eosinophils % 2 % Basophils % 0 % Neutrophils # 5.7 (1.3-7.7) k/uL Lymphocytes # 2.0 (1.0-4.8) k/uL Monocytes # 0.3 (0-1.0) k/uL Eosinophils # 0.2 (0-0.7) k/uL Basophils # 0.0 (0-0.2) k/uL Hypochromasia Slight ESR 40 H (0-20) mm/hr Sodium 139 (137-145) mmol/L Potassium 5.3 H (3.5-5.1) mmol/L Chloride 112 H (98-107) mmol/L Carbon Dioxide 19 L (22-30) mmol/L Anion Gap 8 mmol/L BUN 26 H (7-17) mg/dL Creatinine 0.83 (0.52-1.04) mg/dL Est GFR (CKD-EPI)AfAm >90 (>60 ml/min/1.73 sqM) Est GFR (CKD-EPI)NonAf 80 (>60 ml/min/1.73 sqM) Glucose 102 H (74-99) mg/dL Calcium 9.1 (8.4-10.2) mg/dL Total Bilirubin 0.6 (0.2-1.3) mg/dL AST 32 (14-36) U/L ALT 16 (4-34) U/L Alkaline Phosphatase 173 H (38-126) U/L C-Reactive Protein 0.9 (<1.0) mg/dL Total Protein 7.2 (6.3-8.2) g/dL Albumin 4.1 (3.5-5.0) g/dL Disposition Clinical Impression: Post-operative infection Disposition: OTHER INSTITUTION NOT DEFINED Condition: Fair Is patient prescribed a controlled substance at d/c from ED?: No Referrals: Scott Medrano MD [Primary Care Provider] - 1-2 days - Out of Hospital Transfer - Req. Specs Out of Hospital Transfer - Requested Specifics: Other Emergency Center
[2022-02-15] MEDS ORDERED: MORPHINE SULFATE 4 MG/ML SYRINGE IV STA (07:41)
[2022-02-15 08:04] VITALS: BP 137/66; PULSE 66
== END 2022-02-15 09:45 | disposition other institution (70) ==
LOC: EC 05:06
DX: T81.49XA Infection following a procedure, other surgical site, initial encounter (principal); F41.9 Anxiety disorder, unspecified; Z88.1 Allergy status to other antibiotic agents; Z88.0 Allergy status to penicillin; Z91.041 Radiographic dye allergy status; Z88.8 Allergy status to other drugs, medicaments and biological substances
CPT/HCPCS: 36415; 80053; 85652; 85025; 86140; 70491; 71260; 99284; 96374; 96375 ×3; J2270; J1200; J2930; Q9967

== ENCOUNTER → 2022-03-09 | Outpatient (CLI) | payer OTHER ==
--- NOTE | 2022-03-09 14:41 | CT ---
EXAMINATION TYPE: CT ChestAbdPelvis w con DATE OF EXAM: 03/09/2022 COMPARISON: 02/15/2022 and 12/15/2021. 04/12/2021, 06/12/2020 HISTORY: 56-year-old female C18.2, f/u colon ca TECHNIQUE: Contiguous axial scanning of the chest, abdomen, and pelvis performed with IV Contrast, pa tient injected with 70cc mL of Isovue 300. Delayed images through the kidneys were obtained. Coronal/ sagittal reconstructions performed. CT DLP: 932.6 mGycm Automated exposure control for dose reduction was used. FINDINGS: CHEST: Heart limits of normal in size without pericardial effusion. Ascending aorta is ectatic at 3.7 cm. Bovine configuration to the aortic arch. No thoracic lymphadenopathy by CT size criteria. Partially visualized pacemaker generator superior le ft chest wall. No consolidation or pleural effusion. ABDOMEN: Post surgical change at the GE junction of prior Walter fundoplication. 2.9 cm hypervascular mass right liver lobe. Relatively unchanged compared to 12/15/2021 in terms of si ze. Also seems to have been present back to 04/28/2020 CT. Not well seen on various prior postcontrast studies. Differential considerations favored hemangioma or FNH given occasional difficulty in visual izing on postcontrast images. No other focal liver lesions seen. Portal venous system is patent. No b iliary ductal dilatation. Cholecystectomy clips. Adrenal glands, kidneys, spleen, and pancreas within normal limits. No dilated small bowel, free fluid, or free air. No mesenteric or retroperitoneal lymphadenopathy. There is previous surgery at the proximal to mid transverse colon with previous right hemicolectomy a nd reanastomosis. Redundant sigmoid colon. There is some extension of the inferior wall of the distal sigmoid colon to the level of the vaginal cuff, axial image 106 and sagittal image 58. No pericoloni c inflammatory change. PELVIS: Bladder nondistended. Uterus surgically absent. Neither ovary is visualized. Multiple pelvic eulalio. Dropped surgical clip at the right cul-de-sac. No abnormal fluid collection in the pelvis or pelvic lymphadenopathy. BONES: Mild degenerative change at the hips. Facet arthropathy lower lumbar spine. No osseous destructive pr ocess. IMPRESSION: 1. 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 IN RETROSPECT, A SIMILAR SIZED LESION WAS PRE SENT HERE BACK TO THE CT OF 04/28/2020. IT IS NOT WELL SEEN ON VARIOUS PRIOR POSTCONTRAST STUDIES. DIF FERENTIAL CONSIDERATIONS INCLUDE HEMANGIOMA OR FNH GIVEN OCCASIONAL DIFFICULTY IN VISUALIZING AFTER C ONTRAST ADMINISTRATION. 2. PREVIOUS RIGHT HEMICOLECTOMY WITH ILEOCOLONIC REANASTOMOSIS. NO EVIDENCE FOR RECURRENT OR METASTAT IC DISEASE. 3. THERE IS EXTENSION ALONG THE INFERIOR WALL OF THE DISTAL SIGMOID COLON TO THE VAGINAL CUFF, REFER TO SAGITTAL IMAGE 58. THIS MAY BE A TRANSIENT APPEARANCE DUE TO THE POSITION OF THE COLON. ATTENTION ON FOLLOW-UP A COLOVAGINAL FISTULA COULD HAVE A SIMILAR APPEARANCE. IF INDICATED, CONSIDER DIRECT VISUALIZATION TO EXCLUDE THIS POSSIBILITY.
== END | disposition home or self-care (01) ==
LOC: RADCTMAIN 10:46
PROVIDERS: ATTEND Internal Medicine Hematology & Oncology
DX: C18.2 Malignant neoplasm of ascending colon (principal); R16.0 Hepatomegaly, not elsewhere classified
CPT/HCPCS: 71260; 74177; Q9967

== ENCOUNTER 2022-03-22 11:58 | Emergency (ER) | payer OTHER ==
[2022-03-22 12:50] VITALS: RESP 18
[2022-03-22] MEDS ORDERED: RX INFO: IV CONTRAST WAS GIVEN 1 EACH MISC MISCELLANE PRN (13:21)
[2022-03-22] MEDS ORDERED: methylPREDNISolone SOD SUCCIN 125 MG in SODIUM CHLORIDE 0.9% 100 ML IVPB STA (13:24)
[2022-03-22] MEDS ORDERED: diphenhydrAMINE 50 MG/ML 1 ML VIAL IVP STA (13:24)
[2022-03-22] MEDS ORDERED: methylPREDNISolone SOD SUCCI 125 MG/2 ML VIAL IVP ONE (13:30)
[2022-03-22 13:49] LABS: Basophils % (A) 1 %; Eosinophils # (A) 0.1 k/uL (0-0.7); Eosinophils % (A) 1 %; HCT 37.7 % (34.0-46.0); HGB 12.3 gm/dL (11.4-16.0); Hypochromasia Slight; Lymphocytes # (A) 1.7 k/uL (1.0-4.8); Lymphocytes % (A) 25 %; MCH 28.9 pg (25.0-35.0); MCHC 32.6 g/dL (31.0-37.0); MCV 88.7 fL (80.0-100.0); Mean Platelet Volume 8.1; Monocytes # (A) 0.2 k/uL (0-1.0); Monocytes % (A) 3 %; Neutrophils # (A) 4.7 k/uL (1.3-7.7); Neutrophils % (A) 69 %; Platelet Count 264 k/uL (150-450); RBC 4.25 m/uL (3.80-5.40); RDW 14.1 % (11.5-15.5); WBC 6.8 k/uL (3.8-10.6)
[2022-03-22 13:53] LABS: Albumin 4.4 g/dL (3.5-5.0); Calcium 9.6 mg/dL (8.4-10.2); Potassium 4.9 mmol/L (3.5-5.1); Total Bilirubin 0.4 mg/dL (0.2-1.3); Total Protein 7.5 g/dL (6.3-8.2)
[2022-03-22] MEDS ORDERED: diphenhydrAMINE 50 MG CAP PO STA (14:33)
--- NOTE | 2022-03-22 15:33 | CT ---
EXAMINATION TYPE: CT chest w con DATE OF EXAM: 03/22/2022 COMPARISON: 03/09/2022 HISTORY: infection at recent surgical site of upper left chest/shoulder CT DLP: 333.8 mGycm, Automated exposure control for dose reduction was used. CONTRAST: Performed injected with 100 mL of Isovue 300. TECHNIQUE: Axial images were obtained at 5 mm thick sections. Reconstructed images are reviewed on freee computer in the coronal plane. FINDINGS: Portion of the thyroid visualized is normal. No suspicious lung nodules or focal infiltrates are present. No enlarged mediastinal or hilar adenopathy is evident. The ascending aorta diameter at the level o f the main pulmonary artery is 3.8 cm. The main pulmonary artery diameter at the bifurcation is 3.[address] sections are obtained through the upper abdomen. There is ill-defined 2.4 cm area of enhan cement within the superior anterior right lobe liver likely related to a hemangioma. This was present previously. Loop recorder is in the left anterior subcutaneous chest. No abscess formation is ident ified. Subcutaneous tissues appear normal. IMPRESSIONS: 1. No suspicious radiographic evidence of infection.
[2022-03-22 16:31] VITALS: TEMP 98.7
--- NOTE | 2022-03-22 17:18 | ED ---
General Adult HPI - General Chief complaint: Recheck/Abnormal Lab/Rx Stated complaint: Post op infection Time Seen by Provider: 03/22/22 12:45 Source: patient Mode of arrival: ambulatory Limitations: no limitations - History of Present Illness Initial comments: This is a 56-year-old female with a past medical history including previous implant in the left chest wall that had been removed an infected previously presents emergency department for evaluation of this wound. The patient stated that she is a past mental history including seizures and is on multiple medications. The patient has been seen by home care and was advised to report to the emergency department because she had increasing purulent discharge from the wound. The patient does have a wound to the left anterior chest however there was no erythema or induration around the area. The patient had tenderness on the anterior left chest wall. The patient denied any fevers, chills as well as any nausea or vomiting. The patient was resting in bed comfortably. - Related Data Home Medications Medication Instructions Recorded Confirmed lamoTRIgine [LaMICtal] 200 mg PO BID 09/26/18 03/22/22 Topiramate 75 mg PO BID 12/19/19 03/22/22 HYDROcodone/APAP 5-325MG [[place] 1 tab PO TID PRN 03/22/22 03/22/22 5-325] Sertraline [Zoloft] 150 mg PO DAILY 03/22/22 03/22/22 hydrOXYzine HCL 25 mg PO BID PRN 03/22/22 03/22/22 traZODone HCL [Desyrel] 25 - 50 mg PO HS PRN 03/22/22 03/22/22 Previous Rx's Medication Instructions Recorded Cefdinir [Omnicef] 300 mg PO Q12HR 10 Days #20 capsule 03/22/22 Allergies Allergy/AdvReac Type Severity Reaction Status Date / Time cephalexin [From Keflex] Allergy Rash/Hives Verified 03/22/22 14:12 codeine Allergy Rash/Hives Verified 03/22/22 14:12 erythromycin base Allergy Rash/Hives Verified 03/22/22 14:12 gadobutrol [From Gadavist] Allergy Anaphylaxis Verified 03/22/22 14:12 Gadolinium-Containing Allergy Anaphylaxis Verified 03/22/22 14:12 Contrast Medi iodine Allergy Anaphylaxis Verified 03/22/22 14:12 ketorolac tromethamine Allergy Rash/Hives/ Verified 03/22/22 14:23 [From Toradol] hallucinati ons Penicillins Allergy Anaphylaxis Verified 03/22/22 14:12 vancomycin Allergy Anaphylaxis Verified 03/22/22 14:12 azithromycin AdvReac red face Verified 03/22/22 14:12 diphenhydramine AdvReac Confusion Verified 03/22/22 14:23 [From Benadryl] lorazepam [From Ativan] AdvReac Hallucinati Verified 03/22/22 14:12 ons Review of Systems ROS Statement: Those systems with pertinent positive or pertinent negative responses have been documented in the HPI. ROS Other: All systems not noted in ROS Statement are negative. Past Medical History Past Medical History: Blood Disorder, Cancer, Fibromyalgia, Pneumonia, Seizure Disorder, Syncope Additional Past Medical History / Comment(s): Migraines. 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 Insomnia. Hx colon cancer X2 (last 2020). Diarrhea and bleeding. Episodes of "passing out". 6 bulging discs in neck. HX BLOOD TRANSFUSIONS FOR LOW HGB. Tachycardia, has Loop Recorder. History of Any Multi-Drug Resistant Organisms: MRSA Date of last positivie culture/infection: 08/10/19 MDRO Source:: URINE Past Surgical History: Appendectomy, Bowel Resection, Cholecystectomy, Ear Surgery, Hysterectomy, Orthopedic Surgery Additional Past Surgical History / Comment(s): Bilateral knee arthroscopy, hiatal hernia surgery, right ear surgery to remove middle ear, lymph node biopsy right armpit, loop recorder, surgery on 3 blocked sweat glands.vagus nerve stimulator Past Anesthesia/Blood Transfusion Reactions: Postoperative Nausea & Vomiting (PONV) Additional Past Anesthesia/Blood Transfusion Reaction / Comment(s): Pt has received blood in past without reaction. Past Psychological History: Anxiety Smoking Status: Never smoker Past Alcohol Use History: None Reported Past Drug Use History: None Reported - Past Family History Mother Family Medical History: No Reported History Additional Family Medical History / Comment(s): . Father Family Medical History: No Reported History Additional Family Medical History / Comment(s): Father is healthy General Exam Limitations: no limitations General appearance: alert, in no apparent distress Head exam: Present: atraumatic, normocephalic Eye exam: Present: normal appearance, PERRL Pupils: Present: normal accommodation ENT exam: Present: normal exam, normal oropharynx, mucous membranes moist Neck exam: Present: normal inspection, full ROM Respiratory exam: Present: normal lung sounds bilaterally, other (Open wound over the anterior left chest wall without any erythema or induration. There was tunneling noted of the wound however was packed and was clean) Cardiovascular Exam: Present: regular rate, normal rhythm, normal heart sounds GI/Abdominal exam: Present: soft, normal bowel sounds Extremities exam: Present: normal inspection, full ROM, normal capillary refill Back exam: Present: normal inspection, full ROM Neurological exam: Present: alert, oriented X3, CN II-XII intact Psychiatric exam: Present: normal affect, normal mood Skin exam: Present: warm, dry Course Vital Signs 03/22/22 03/22/22 03/22/22 12:11 12:39 14:45 Temperature 96.9 F L 98.5 F Pulse Rate 73 74 64 Respiratory 16 18 18 Rate Blood Pressure 118/54 135/76 133/54 O2 Sat by Pulse 99 99 99 Oximetry 03/22/22 03/22/22 16:31 18:02 Temperature 98.7 F 98.7 F Pulse Rate 65 76 Respiratory 18 18 Rate Blood Pressure 121/56 122/60 O2 Sat by Pulse 98 96 Oximetry Medical Decision Making - Medical Decision Making The patient was seen and evaluated in the emergency department. Physical exam, the patient was resting in bed without any acute distress. Vital signs admission were stable and within normal limits. Due to the nature of the patient's complaint, the laboratory workup as well as a CT thorax with contrast was obtained. All laboratory workup was within normal limits. The patient's lactic acid was mildly elevated at 2.8 however the patient was able to tolerate oral hydration therefore she was given several glasses of water in the emergency department. CT of the thorax with contrast was obtained and was interpreted by myself and showed no obvious signs of acute infection or any other maladies noted. The patient denied of any severe signs of infection did not need any IV antibiotics at this time. The patient had a significant list of ALLERGIES to a majority of oral antibiotics. An extensive evaluation was obtained and pharmacy was contacted regarding this. Myself and the pharmacist an extensive conversation and because the patient was ALLERGIC to all medications for soft tissue infections including nonlisted medications including sulfa, clindamycin, doxycycline the patient stated that she was only ALLERGIC to Keflex and not all cephalosporins. It was determined to treat the patient with Ceftin year by mouth as it had a low likelihood across reacting with the first-generation cephalosporins. The patient was told of this plan and extensive conversation was had with the patient regarding the need for this approach to medications because she is ALLERGIC to all other oral antibiotics. The patient was advised to closely monitor her symptoms and to report back to the emergency department if they became worse or she became short of breath or difficulty breathing. The patient did state that she is unable to take Benadryl with any reaction as it can "increase and cause her to have seizures." The patient understood all these instructions and all of her questions were answered reportedly. The patient was discharged home in stable condition. - Lab Data Result diagrams: 03/22/22 13:33 03/22/22 13:33 Lab Results 03/22/22 03/22/22 03/22/22 Range/Units 13:33 13:33 13:33 WBC 6.8 (3.8-10.6) k/uL RBC 4.25 (3.80-5.40) m/uL Hgb 12.3 (11.4-16.0) gm/dL Hct 37.7 (34.0-46.0) % MCV 88.7 (80.0-100.0) fL MCH 28.9 (25.0-35.0) pg MCHC 32.6 (31.0-37.0) g/dL RDW 14.1 (11.5-15.5) % Plt Count 264 (150-450) k/uL MPV 8.1 Neutrophils % 69 % Lymphocytes % 25 % Monocytes % 3 % Eosinophils % 1 % Basophils % 1 % Neutrophils # 4.7 (1.3-7.7) k/uL Lymphocytes # 1.7 (1.0-4.8) k/uL Monocytes # 0.2 (0-1.0) k/uL Eosinophils # 0.1 (0-0.7) k/uL Basophils # 0.0 (0-0.2) k/uL Hypochromasia Slight Sodium 143 (137-145) mmol/L Potassium 4.9 (3.5-5.1) mmol/L Chloride 110 H (98-107) mmol/L Carbon Dioxide 27 (22-30) mmol/L Anion Gap 6 mmol/L BUN 21 H (7-17) mg/dL Creatinine 0.93 (0.52-1.04) mg/dL Est GFR (CKD-EPI)AfAm 80 (>60 ml/min/1.73 sqM) Est GFR (CKD-EPI)NonAf 69 (>60 ml/min/1.73 sqM) Glucose 101 H (74-99) mg/dL Lactic Ac Sepsis Rflx Plasma Lactic Acid Williams 2.6 H* (0.7-2.0) mmol/L Calcium 9.6 (8.4-10.2) mg/dL Total Bilirubin 0.4 (0.2-1.3) mg/dL AST 25 (14-36) U/L ALT 20 (4-34) U/L Alkaline Phosphatase 178 H (38-126) U/L Total Protein 7.5 (6.3-8.2) g/dL Albumin 4.4 (3.5-5.0) g/dL 03/22/22 03/22/22 Range/Units 14:07 16:42 WBC (3.8-10.6) k/uL RBC (3.80-5.40) m/uL Hgb (11.4-16.0) gm/dL Hct (34.0-46.0) % MCV (80.0-100.0) fL MCH (25.0-35.0) pg MCHC (31.0-37.0) g/dL RDW (11.5-15.5) % Plt Count (150-450) k/uL MPV Neutrophils % % Lymphocytes % % Monocytes % % Eosinophils % % Basophils % % Neutrophils # (1.3-7.7) k/uL Lymphocytes # (1.0-4.8) k/uL Monocytes # (0-1.0) k/uL Eosinophils # (0-0.7) k/uL Basophils # (0-0.2) k/uL Hypochromasia Sodium (137-145) mmol/L Potassium (3.5-5.1) mmol/L Chloride (98-107) mmol/L Carbon Dioxide (22-30) mmol/L Anion Gap mmol/L BUN (7-17) mg/dL Creatinine (0.52-1.04) mg/dL Est GFR (CKD-EPI)AfAm (>60 ml/min/1.73 sqM) Est GFR (CKD-EPI)NonAf (>60 ml/min/1.73 sqM) Glucose (74-99) mg/dL Lactic Ac Sepsis Rflx Y Plasma Lactic Acid Williams 0.6 L (0.7-2.0) mmol/L Calcium (8.4-10.2) mg/dL Total Bilirubin (0.2-1.3) mg/dL AST (14-36) U/L ALT (4-34) U/L Alkaline Phosphatase (38-126) U/L Total Protein (6.3-8.2) g/dL Albumin (3.5-5.0) g/dL Disposition Clinical Impression: Postoperative wound cellulitis Disposition: HOME SELF-CARE Condition: Stable Instructions (If sedation given, give patient instructions): Wound Infection (DC) Prescriptions: Cefdinir [Omnicef] 300 mg PO Q12HR 10 Days #20 capsule Is patient prescribed a controlled substance at d/c from ED?: No Referrals: Scott Medrano MD [Primary Care Provider] - 1-2 days Time of Disposition: 17:00
[2022-03-22 18:04] VITALS: BP 122/60; PULSE 76
== END 2022-03-22 18:02 | disposition home or self-care (01) ==
LOC: EC 11:58
DX: T81.49XA Infection following a procedure, other surgical site, initial encounter (principal); F41.9 Anxiety disorder, unspecified; Z88.5 Allergy status to narcotic agent; Z91.041 Radiographic dye allergy status; Z88.1 Allergy status to other antibiotic agents; Z88.6 Allergy status to analgesic agent; Z88.0 Allergy status to penicillin; Z88.8 Allergy status to other drugs, medicaments and biological substances
CPT/HCPCS: 36415; 80053; 83605; 85025; 71260; 99284; 96374; J2930; Q9967

== ENCOUNTER 2022-04-12 16:51 | Emergency (ER) | payer OTHER ==
[2022-04-12 17:53] VITALS: TEMP 97.7
--- NOTE | 2022-04-12 19:22 | ED ---
General Adult HPI - General Source: patient, RN notes reviewed Mode of arrival: ambulatory Limitations: no limitations <Gauri Schilling - Last Filed: 04/12/22 19:29> <Bob Shields - Last Filed: 04/13/22 05:16> - General Chief complaint: Wound/Laceration Stated complaint: Infection, sent by Dr Nagy Seen by Provider: 04/12/22 19:22 - History of Present Illness Initial comments: Patient is a 56-year-old female presents to the emergency department for evaluation of possible infection. Patient states she had a stimulator put in her left chest in January for seizures. In February the stimulator was removed. Patient states she has had continuous issues with infection since removal. States over the past 3 days she has had increased pain in the region as well as drainage from the wound. She reports fever and chills, max temp 101.5F. Nausea without vomiting. Patient currently not on any antibiotics. She was recently evaluated in the emergency department and treated with cefdinir for postoperative cellulitis. Her wound is cleaned and redressed every other day by home nurse. Patient states she called Dr. Duron today who "requests admission and PICC line placement" due to several allergies to oral antibiotics. (Gauri Schilling) This is a 56-year-old female with extensive past medical history presented to the emergency department initially for a left anterior chest wall infection. The patient has been seen multiple times for the same complaints including myself seeing the patient several weeks ago. The patient was attempted be started on by mouth antibiotics however had a reaction to this therefore she could not have any by mouth antibiotics. The patient stated that she spoke with the infectious disease physicians office, Dr. Duron, and they stated to "get to the emergency department so she can have a PICC line placed." On evaluation, the patient denied any acute pain or complaints but did state that the anterior chest wall wound was worsening. The patient did not have any signs of systemic infection including any nausea, vomiting, fevers or chills. (Bob Shields) - Related Data Home Medications Medication Instructions Recorded Confirmed lamoTRIgine [LaMICtal] 200 mg PO BID 09/26/18 04/08/22 Topiramate 75 mg PO BID 12/19/19 04/08/22 HYDROcodone/APAP 5-325MG [[place] 1 tab PO TID PRN 03/22/22 04/08/22 5-325] Sertraline [Zoloft] 150 mg PO DAILY 03/22/22 04/08/22 Allergies Allergy/AdvReac Type Severity Reaction Status Date / Time cephalexin [From Keflex] Allergy Rash/Hives Verified 04/08/22 10:53 codeine Allergy Rash/Hives Verified 04/08/22 10:53 erythromycin base Allergy Rash/Hives Verified 04/08/22 10:53 gadobutrol [From Gadavist] Allergy Anaphylaxis Verified 04/08/22 10:53 Gadolinium-Containing Allergy Anaphylaxis Verified 04/08/22 10:53 Contrast Medi iodine Allergy Anaphylaxis Verified 04/08/22 10:53 ketorolac tromethamine Allergy Rash/Hives/ Verified 04/08/22 10:53 [From Toradol] hallucinati ons Penicillins Allergy Anaphylaxis Verified 04/08/22 10:53 vancomycin Allergy Anaphylaxis Verified 04/08/22 10:53 azithromycin AdvReac red face Verified 04/08/22 10:53 diphenhydramine AdvReac Confusion Verified 04/08/22 10:53 [From Benadryl] lorazepam [From Ativan] AdvReac Hallucinati Verified 04/08/22 10:53 ons Review of Systems ROS Other: All systems not noted in ROS Statement are negative. <Gauri Schilling - Last Filed: 04/12/22 19:29> ROS Other: All systems not noted in ROS Statement are negative. <Bob Shields - Last Filed: 04/13/22 05:16> ROS Statement: Those systems with pertinent positive or pertinent negative responses have been documented in the HPI. Past Medical History Past Medical History: Blood Disorder, Cancer, Fibromyalgia, Pneumonia, Seizure Disorder, Syncope Additional Past Medical History / Comment(s): Migraines. 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 Insomnia. Hx colon cancer X2 (last 2020). Diarrhea and bleeding. Episodes of "passing out". 6 bulging discs in neck. HX BLOOD TRANSFUSIONS FOR LOW HGB. Tachycardia, has Loop Recorder. epilepsy port removed d/t infection. History of Any Multi-Drug Resistant Organisms: C-DIFF, MRSA Date of last positivie culture/infection: 01/24 MDRO Source:: left chest Past Surgical History: Appendectomy, Bowel Resection, Cholecystectomy, Ear Surgery, Hysterectomy, Orthopedic Surgery Additional Past Surgical History / Comment(s): Bilateral knee arthroscopy, hiatal hernia surgery, right ear surgery to remove middle ear, lymph node biopsy right armpit, loop recorder, surgery on 3 blocked sweat glands.vagus nerve stimulator Past Anesthesia/Blood Transfusion Reactions: Postoperative Nausea & Vomiting (PONV) Additional Past Anesthesia/Blood Transfusion Reaction / Comment(s): Pt has received blood in past without reaction. Past Psychological History: Anxiety Smoking Status: Never smoker - Past Family History Mother Family Medical History: No Reported History Additional Family Medical History / Comment(s): . Father Family Medical History: No Reported History Additional Family Medical History / Comment(s): Father is healthy <Gauri Schilling - Last Filed: 04/12/22 19:29> General Exam Limitations: no limitations <TonieGauri - Last Filed: 04/12/22 19:29> Limitations: no limitations General appearance: alert, in no apparent distress Head exam: Present: atraumatic, normocephalic, normal inspection Eye exam: Present: normal appearance, PERRL Pupils: Present: normal accommodation ENT exam: Present: normal exam, normal oropharynx, mucous membranes moist Neck exam: Present: normal inspection, full ROM Respiratory exam: Present: normal lung sounds bilaterally, chest wall tenderness (Chest wall tenderness noted over the left anterior chest secondary to open wound. There was packing in place with dried purulent drainage noted. There was no erythema surrounding.) Cardiovascular Exam: Present: regular rate, normal rhythm, normal heart sounds GI/Abdominal exam: Present: soft, normal bowel sounds Extremities exam: Present: normal inspection, full ROM, normal capillary refill Back exam: Present: normal inspection, full ROM Neurological exam: Present: alert, oriented X3, CN II-XII intact Psychiatric exam: Present: normal affect, normal mood Skin exam: Present: warm, dry <Bob Shields - Last Filed: 04/13/22 05:16> Course Vital Signs 04/12/22 04/13/22 17:49 00:00 Temperature 97.7 F 97.7 F Pulse Rate 80 78 Respiratory 20 16 Rate Blood Pressure 154/70 134/68 O2 Sat by Pulse 99 98 Oximetry Medical Decision Making - Lab Data Result diagrams: 04/12/22 20:56 04/12/22 20:56 <Bob Shields - Last Filed: 04/13/22 05:16> - Medical Decision Making Was pt. sent in by a medical professional or institution (, PRAVIN, SPORTS AGENT, urgent care, hospital, or prison...) When possible be specific @ -Yes, supposedly the infectious disease physician, Dr. Duron Did you speak to anyone other than the patient for history (EMS, parent, family, police, friend...)? What history was obtained from this source @ -Yes, patient's friend Did you review nursing and triage notes (agree or disagree)? Why? @ -I reviewed and agree with nursing and triage notes Were old charts reviewed (outside hosp., previous admission, EMS record, old EKG, old radiological studies, urgent care reports/EKG's, prison records)? Report findings @ -Yes, previous encounter notes were obtained and reviewed Differential Diagnosis (chest pain, altered mental status, abdominal pain women, abdominal pain men, vaginal bleeding, weakness, fever, dyspnea, syncope, headache, dizziness, GI bleed, back pain, seizure, CVA, palpatations, mental health)? @ -Sepsis, chest wall wound infection EKG interpreted by me (3pts min.). @ -None X-rays interpreted by me (1pt min.). @ -None done CT interpreted by me (1pt min.). @ -None done U/S interpreted by me (1pt. min.). @ -None done What testing was considered but not performed or refused? (CT, X-rays, U/S, labs)? Why? @ -None What meds were considered but not given or refused? Why? @ -None Did you discuss the management of the patient with other professionals (professionals i.e. PRAVIN Mendez, SPORTS AGENT, lab, RT, psych nurse, social sciences chair, plant general manager, teacher, chief supply chain officer, briefcase sewer)? Give summary @ -Yes, primary care physician, Dr. Medrano was told of the patient and did agreed to place the patient observation pending infectious disease recommendations. was contacted and stated that he had no knowledge of the patient nor any instructions that he gave her. He did not recommend any actions at this time as he did not know the patient. Was smoking cessation discussed for >3mins.? @ -No Was critical care preformed (if so, how long)? @ -No Were there social determinants of health that impacted care today? How? (Homelessness, low income, unemployed, alcoholism, drug addiction, transportation, low edu. Level, literacy, decrease access to med. care, retirement, rehab)? @ -No Was there de-escalation of care discussed even if they declined (Discuss DNR or withdrawal of care, Hospice)? DNR status @ -No What co-morbidities impacted this encounter? (DM, HTN, Smoking, COPD, CAD, Cancer, CVA, ARF, Chemo, Hep., AIDS, mental health diagnosis, sleep apnea, morbid obesity)? @ -Significant antibiotic resistance and ALLERGIES, seizure disorder Was patient admitted / discharged? Hospital course, mention meds given and route, prescriptions, significant lab abnormalities, going to OR and other pertinent info. @ -The patient was seen and evaluated emergency department. Physical exam, the patient was resting in bed without any acute distress. Vital signs were stable. All laboratory workup was negative and the patient did not have a white blood cell count. The patient's infectious disease doctor was contacted and he had no recollection or any knowledge of the patient. The patient's primary care physician also only stated that he would observe the patient if infectious disease did recommend to do so. Because the patient denied of any recommendations to have observation orders placed nor any PICC line placed, as well as the patient did not experiencing sepsis or any systemic signs, the patient was once again discharged home. The patient, myself and her friend had an extensive conversation regarding this and the significance of her multiple antibiotic ALLERGIES. She was told that she did not have any systemic signs th erefore did not require admission for PICC line at this time as she only had 1 or 2 antibiotics left that she is not ALLERGIC to that could be used. She was advised to follow-up with her infectious disease doctor as previous he scheduled next week. The patient was ultimately agreeable to this and was discharged home in stable condition. Undiagnosed new problem with uncertain prognosis? @ -No Drug Therapy requiring intensive monitoring for toxicity (Heparin, Nitro, Insulin, Cardizem)? @ -No Were any procedures done? @ -No Diagnosis/symptom? @ -Left anterior chest wall wound Acute, or Chronic, or Acute on Chronic? @ -Chronic Uncomplicated (without systemic symptoms) or Complicated (systemic symptoms)? @ -Uncomplicated Side effects of treatment? @ -No Exacerbation, Progression, or Severe Exacerbation? @ -No Poses a threat to life or bodily function? How? (Chest pain, [place], [place], pneumonia, PE, COPD, DKA, ARF, appy, cholecystitis, CVA, Diverticulitis, Homicidal, Suicid al, threat to staff... and all critical care pts) @ -No (Bob Shields) - Lab Data Lab Results 04/12/22 04/12/22 04/12/22 Range/Units 20:56 20:56 20:56 WBC 8.4 (3.8-10.6) k/uL RBC 4.24 (3.80-5.40) m/uL Hgb 11.9 (11.4-16.0) gm/dL Hct 36.8 (34.0-46.0) % MCV 86.7 (80.0-100.0) fL MCH 28.1 (25.0-35.0) pg MCHC 32.4 (31.0-37.0) g/dL RDW 14.6 (11.5-15.5) % Plt Count 266 (150-450) k/uL MPV 7.6 Neutrophils % 65 % Lymphocytes % 28 % Monocytes % 4 % Eosinophils % 1 % Basophils % 1 % Neutrophils # 5.5 (1.3-7.7) k/uL Lymphocytes # 2.3 (1.0-4.8) k/uL Monocytes # 0.3 (0-1.0) k/uL Eosinophils # 0.1 (0-0.7) k/uL Basophils # 0.0 (0-0.2) k/uL Sodium 142 (137-145) mmol/L Potassium 4.0 (3.5-5.1) mmol/L Chloride 110 H (98-107) mmol/L Carbon Dioxide 23 (22-30) mmol/L Anion Gap 9 mmol/L BUN 27 H (7-17) mg/dL Creatinine 0.87 (0.52-1.04) mg/dL Est GFR (CKD-EPI)AfAm 86 (>60 ml/min/1.73 sqM) Est GFR (CKD-EPI)NonAf 75 (>60 ml/min/1.73 sqM) Glucose 86 (74-99) mg/dL Plasma Lactic Acid Williams 0.9 (0.7-2.0) mmol/L Calcium 9.1 (8.4-10.2) mg/dL Total Bilirubin 0.2 (0.2-1.3) mg/dL AST 44 H (14-36) U/L ALT 28 (4-34) U/L Alkaline Phosphatase 180 H (38-126) U/L Total Protein 7.6 (6.3-8.2) g/dL Albumin 4.3 (3.5-5.0) g/dL Disposition <Gauri Schilling - Last Filed: 04/12/22 19:29> Is patient prescribed a controlled substance at d/c from ED?: No Time of Disposition: 00:10 <Bob Shields - Last Filed: 04/13/22 05:16> Clinical Impression: Open wound of chest wall without complication Disposition: HOME SELF-CARE Condition: Stable Instructions (If sedation given, give patient instructions): Chronic Wounds (ED) Referrals: Scott Medrano MD [Primary Care Provider] - 1-2 days Niya Duron MD [STAFF PHYSICIAN] - 1-2 days
[2022-04-12 21:13] LABS: Albumin 4.3 g/dL (3.5-5.0); Basophils % (A) 1 %; Calcium 9.1 mg/dL (8.4-10.2); Eosinophils # (A) 0.1 k/uL (0-0.7); Eosinophils % (A) 1 %; HCT 36.8 % (34.0-46.0); HGB 11.9 gm/dL (11.4-16.0); Lymphocytes # (A) 2.3 k/uL (1.0-4.8); Lymphocytes % (A) 28 %; MCH 28.1 pg (25.0-35.0); MCHC 32.4 g/dL (31.0-37.0); MCV 86.7 fL (80.0-100.0); Mean Platelet Volume 7.6; Monocytes # (A) 0.3 k/uL (0-1.0); Monocytes % (A) 4 %; Neutrophils # (A) 5.5 k/uL (1.3-7.7); Neutrophils % (A) 65 %; Platelet Count 266 k/uL (150-450); RBC 4.24 m/uL (3.80-5.40); RDW 14.6 % (11.5-15.5); Total Bilirubin 0.2 mg/dL (0.2-1.3); Total Protein 7.6 g/dL (6.3-8.2); WBC 8.4 k/uL (3.8-10.6)
[2022-04-13 00:50] VITALS: BP 134/68; PULSE 78; RESP 16
== END 2022-04-13 00:45 | disposition home or self-care (01) ==
LOC: EC 16:51
DX: S21.109A Unspecified open wound of unspecified front wall of thorax without penetration into thoracic cavity, initial encounter (principal); F41.9 Anxiety disorder, unspecified; Z88.0 Allergy status to penicillin; Z88.1 Allergy status to other antibiotic agents; Z88.8 Allergy status to other drugs, medicaments and biological substances; Z88.5 Allergy status to narcotic agent; Z91.041 Radiographic dye allergy status; Z88.6 Allergy status to analgesic agent; X58.XXXA Exposure to other specified factors, initial encounter
CPT/HCPCS: 36415; 80053; 83605; 85025; 99284

== ENCOUNTER 2022-04-16 12:05 | Day surgery (SDC) | payer OTHER ==
[2022-04-16 12:53] VITALS: BP 136/63; PULSE 72; RESP 16; TEMP 98.7
--- NOTE | 2022-04-16 14:20 | IR ---
PICC LINE PLACEMENT: HISTORY: Infection requiring long-term antibiotic therapy PROCEDURE: Ultrasound and fluoroscopic guidance of PICC line placement. COMPLICATIONS: None ANESTHESIA: 1. 1% Lidocaine locally. FINDINGS/TECHNIQUE: The procedure was explained to the patient. The risks, complications, benefits and alternatives were discussed and any questions were answered. Informed consent was obtained. The patient was placed supine on the fluoroscopic table and prepped and draped in the usual sterile fash ion. Utilizing a 21 gauge needle and sonographic and fluoroscopic guidance, access in the left basi lic vein was achieved and there is placement of a 0.018 guidewire. The vein is patent. A 4-F sheath was placed over the guidewire. The guidewire and dilator were removed and a 4-F. PICC line was plac ed through the sheath with the tip at the level of the SVC. The sheath was removed, the catheter was flushed and sutured into position. The patient was stable throughout the procedure and remained sta ble upon discharge from the Department of Radiology. The vein puncture was patent under ultrasound. A hull scale image was obtained to document patency of the vein punctured. All elements of the maximal barrier technique were utilized. FLUOROSCOPY TIME: 0.3 minutes and one image submitted IMPRESSION: Successful PICC line placement under ultrasound and fluoroscopic guidance.
[2022-04-16] MEDS ORDERED: DAPTOmycin 350 MG in SODIUM CHLORIDE 0.9% 50 ML IVPB ONE (14:30)
== END 2022-04-16 15:24 | disposition home or self-care (01) ==
LOC: CATHCVL 12:05
PROVIDERS: ATTEND Radiology Diagnostic Radiology
DX: T81.40XA Infection following a procedure, unspecified, initial encounter (principal); T81.31XA Disruption of external operation (surgical) wound, not elsewhere classified, initial encounter; Y83.8 Other surgical procedures as the cause of abnormal reaction of the patient, or of later complication, without mention of misadventure at the time of the procedure; Z86.69 Personal history of other diseases of the nervous system and sense organs; Z96.82 Presence of neurostimulator; F41.9 Anxiety disorder, unspecified; F32.A Depression, unspecified; Z87.891 Personal history of nicotine dependence; G47.9 Sleep disorder, unspecified; Z90.49 Acquired absence of other specified parts of digestive tract; Z98.890 Other specified postprocedural states; Z88.0 Allergy status to penicillin; Z88.1 Allergy status to other antibiotic agents; Z88.8 Allergy status to other drugs, medicaments and biological substances; Z79.83 Long term (current) use of bisphosphonates; Z79.899 Other long term (current) drug therapy
CPT/HCPCS: 36573; C1751; C1769; J0878

== ENCOUNTER 2022-06-27 11:52 | Emergency (ER) | payer OTHER ==
[2022-06-27 11:57] VITALS: RESP 20; TEMP 97.7
[2022-06-27] MEDS ORDERED: FAMOTIDINE 20 MG/2 ML VIAL IV STA (12:15)
[2022-06-27] MEDS ORDERED: ONDANSETRON 4 MG/2 ML VIAL IVP STA (12:15)
--- NOTE | 2022-06-27 12:19 | ED ---
General Adult HPI - General Chief complaint: Recheck/Abnormal Lab/Rx Stated complaint: Nausea Time Seen by Provider: 06/27/22 12:00 Source: patient, RN notes reviewed Mode of arrival: wheelchair Limitations: no limitations - History of Present Illness Initial comments: Patient is a pleasant 56-year-old female presenting to the emergency department with concerns that she may be stress seizure. Patient does complain of nausea. Patient has felt this way since last night, somewhat worse today. Patient does have history of similar symptoms multiple times previously. - Related Data Home Medications Medication Instructions Recorded Confirmed lamoTRIgine [LaMICtal] 200 mg PO BID 09/26/18 04/15/22 Topiramate 75 mg PO BID 12/19/19 04/15/22 HYDROcodone/APAP 5-325MG [[place] 1 tab PO TID PRN 03/22/22 04/16/22 5-325] Sertraline [Zoloft] 150 mg PO DAILY 03/22/22 04/15/22 Previous Rx's Medication Instructions Recorded Mupirocin Calcium 2% Cream 1 applic TOPICAL TID #22 gm 05/15/22 [Bactroban Cream] Allergies Allergy/AdvReac Type Severity Reaction Status Date / Time cephalexin [From Keflex] Allergy Rash/Hives Verified 06/27/22 11:57 codeine Allergy Rash/Hives Verified 06/27/22 11:57 erythromycin base Allergy Rash/Hives Verified 06/27/22 11:57 gadobutrol [From Gadavist] Allergy Anaphylaxis Verified 06/27/22 11:57 Gadolinium-Containing Allergy Anaphylaxis Verified 06/27/22 11:57 Contrast Medi iodine Allergy Anaphylaxis Verified 06/27/22 11:57 ketorolac tromethamine Allergy Rash/Hives/ Verified 06/27/22 11:57 [From Toradol] hallucinati ons Penicillins Allergy Anaphylaxis Verified 06/27/22 11:57 vancomycin Allergy Anaphylaxis Verified 06/27/22 11:57 azithromycin AdvReac red face Verified 06/27/22 11:57 diphenhydramine AdvReac Confusion Verified 06/27/22 11:57 [From Benadryl] lorazepam [From Ativan] AdvReac Hallucinati Verified 06/27/22 11:57 ons Review of Systems ROS Statement: Those systems with pertinent positive or pertinent negative responses have been documented in the HPI. ROS Other: All systems not noted in ROS Statement are negative. 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 Insomnia. Hx colon cancer X2 (last 2020). Diarrhea and bleeding. Episodes of "passing out" from pain from cancer. 6 bulging discs in neck. HX BLOOD TRANSFUSIONS FOR LOW HGB. Tachycardia, has Loop Recorder.( needs to have it removed no longer happening since wt loss and getting healthier). VNS epilepsy port removed d/t infection. stroke many years ago no residuals. wound to left chest from VNS site packed and dressed has Visiting nurse QOD. History of Any Multi-Drug Resistant Organisms: C-DIFF, MRSA Date of last positivie culture/infection: 01/23 MDRO Source:: left chest Past Surgical History: Appendectomy, Bowel Resection, Cholecystectomy, Ear Surgery, Hysterectomy, Orthopedic Surgery Additional Past Surgical History / Comment(s): Bilateral knee arthroscopy, hiata l hernia surgery, right ear surgery to remove middle ear, lymph node biopsy right armpit, loop recorder, surgery on 3 blocked sweat glands.vagus nerve stimulator - removed except clamp. Past Anesthesia/Blood Transfusion Reactions: Postoperative Nausea & Vomiting (PONV) Additional Past Anesthesia/Blood Transfusion Reaction / Comment(s): Pt has recei aida blood in past without reaction. Past Psychological History: No Psychological Hx Reported, Anxiety Smoking Status: Never smoker Past Alcohol Use History: None Reported Past Drug Use History: None Reported - Past Family History Mother Family Medical History: Coronary Artery Disease (CAD), Diabetes Mellitus Father Family Medical History: No Reported History Additional Family Medical History / Comment(s): Father is healthy General Exam Limitations: no limitations General appearance: alert, in no apparent distress Head exam: Present: normocephalic Eye exam: Present: normal appearance, PERRL, EOMI ENT exam: Present: normal oropharynx Neck exam: Present: normal inspection. Absent: tenderness, meningismus Respiratory exam: Present: normal lung sounds bilaterally Cardiovascular Exam: Present: regular rate, normal rhythm GI/Abdominal exam: Present: soft. Absent: tenderness Extremities exam: Present: normal inspection Neurological exam: Present: alert, CN II-XII intact. Absent: motor sensory deficit Expanded Neurological exam: Present: protecting the airway Cranial nerves: EOM's Intact: Normal Motor strength exam: RUE: 5, LUE: 5, RLE: 5, LLE: 5 Eye Response: (4) open spontaneously Motor Response: (6) obeys commands Verbal Response: (5) oriented Psychiatric exam: Present: anxious Skin exam: Present: normal color Course Vital Signs 06/27/22 06/27/22 11:53 13:32 Temperature 97.7 F Pulse Rate 102 H 68 Respiratory 20 20 Rate Blood Pressure 179/87 160/83 O2 Sat by Pulse 98 99 Oximetry EKG Findings - EKG Results: EKG: interpreted by ERMD (Left axis. First-degree AV block. Right bundle branch block. LVH. Poor R-wave progression.), sinus rhythm Medical Decision Making - Medical Decision Making Was pt. sent in by a medical professional or institution (, PA, THERMOFORMING MACHINE OPERATOR, urgent care, hospital, or senior living...) When possible be specific @ -No Did you speak to anyone other than the patient for history (EMS, parent, family, police, friend...)? What history was obtained from this source @ -Family later arrives and helps provide and confirm history Did you review nursing and triage notes (agree or disagree)? Why? @ -I reviewed and agree with nursing and triage notes Were old charts reviewed (outside hosp., previous admission, EMS record, old EKG, old radiological studies, urgent care reports/EKG's, senior living records)? Report findings @ -No old charts were reviewed Differential Diagnosis (chest pain, altered mental status, abdominal pain women, abdominal pain men, vaginal bleeding, weakness, fever, dyspnea, syncope, headache, dizziness, GI bleed, back pain, seizure, CVA, palpatations, mental health)? @ -not applicable EKG interpreted by me (3pts min.). @ -As above X-rays interpreted by me (1pt min.). @ -None done CT interpreted by me (1pt min.). @ -None done U/S interpreted by me (1pt. min.). @ -None done What testing was considered but not performed or refused? (CT, X-rays, U/S, labs)? Why? @ -None What meds were considered but not given or refused? Why? @ -None Did you discuss the management of the patient with other professionals (professionals i.e. Dr., PA, THERMOFORMING MACHINE OPERATOR, lab, RT, psych nurse, social problems specialist, television service engineer, teacher, geographic area intelligence officer, trimming caser)? Give summary @ -No Was smoking cessation discussed for >3mins.? @ -No Was critical care preformed (if so, how long)? @ -No Were there social determinants of health that impacted care today? How? (Homelessness, low income, unemployed, alcoholism, drug addiction, transportation, low edu. Level, literacy, decrease access to med. care, assisted, rehab)? @ -No Was there de-escalation of care discussed even if they declined (Discuss DNR or withdrawal of care, Hospice)? DNR status @ -No What co-morbidities impacted this encounter? (DM, HTN, Smoking, COPD, CAD, Cancer, CVA, ARF, Chemo, Hep., AIDS, mental health diagnosis, sleep apnea, morbid obesity)? @ -None Was patient admitted / discharged? Hospital course, mention meds given and route, prescriptions, significant lab abnormalities, going to OR and other pertinent info. @ -Patient reevaluated and feeling much better following medications. Patient and family are both comfortable with discharge home. Patient updated on results and need for follow-up Undiagnosed new problem with uncertain prognosis? @ -No Drug Therapy requiring intensive monitoring for toxicity (Heparin, Nitro, Insulin, Cardizem)? @ -No Were any procedures done? @ -No Diagnosis/symptom? @ -Nausea, anxiety Acute, or Chronic, or Acute on Chronic? @ -Acute, acute Uncomplicated (without systemic symptoms) or Complicated (systemic symptoms)? @ -default Side effects of treatment? @ -No Exacerbation, Progression, or Severe Exacerbation? @ -No Poses a threat to life or bodily function? How? (Chest pain, [place], [place], pneumonia, PE, COPD, DKA, ARF, appy, cholecystitis, CVA, Diverticulitis, Homicidal, Suicidal, threat to staff... and all critical care pts) @ -No - Lab Data Result diagrams: 06/27/22 12:55 06/27/22 12:55 Lab Results 06/27/22 06/27/22 Range/Units 12:55 12:55 WBC 7.1 (3.8-10.6) k/uL RBC 4.59 (3.80-5.40) m/uL Hgb 13.1 (11.4-16.0) gm/dL Hct 39.4 (34.0-46.0) % MCV 85.7 (80.0-100.0) fL MCH 28.6 (25.0-35.0) pg MCHC 33.3 (31.0-37.0) g/dL RDW 14.7 (11.5-15.5) % Plt Count 267 (150-450) k/uL MPV 7.8 Neutrophils % 68 % Lymphocytes % 25 % Monocytes % 4 % Eosinophils % 2 % Basophils % 0 % Neutrophils # 4.8 (1.3-7.7) k/uL Lymphocytes # 1.8 (1.0-4.8) k/uL Monocytes # 0.3 (0-1.0) k/uL Eosinophils # 0.1 (0-0.7) k/uL Basophils # 0.0 (0-0.2) k/uL Sodium 141 (137-145) mmol/L Potassium 4.5 (3.5-5.1) mmol/L Chloride 109 H (98-107) mmol/L Carbon Dioxide 23 (22-30) mmol/L Anion Gap 9 mmol/L BUN 24 H (7-17) mg/dL Creatinine 0.78 (0.52-1.04) mg/dL Est GFR (CKD-EPI)AfAm >90 (>60 ml/min/1.73 sqM) Est GFR (CKD-EPI)NonAf 86 (>60 ml/min/1.73 sqM) Glucose 95 (74-99) mg/dL Calcium 9.5 (8.4-10.2) mg/dL Magnesium 2.2 (1.6-2.3) mg/dL Total Bilirubin 0.4 (0.2-1.3) mg/dL AST 27 (14-36) U/L ALT 24 (4-34) U/L Alkaline Phosphatase 190 H (38-126) U/L Total Protein 7.9 (6.3-8.2) g/dL Albumin 4.5 (3.5-5.0) g/dL Disposition Clinical Impression: Nausea, Anxiety Disposition: HOME SELF-CARE Condition: Stable Instructions (If sedation given, give patient instructions): Acute Nausea and Vomiting (ED), Anxiety (ED) Additional Instructions: Please do follow-up with primary care physician in the next day or 2 for recheck. Have primary care physician follow-up and check limited to level that was drawn today. Return for weakness or confusion, vomiting, worsening symptoms or other concerns. Is patient prescribed a controlled substance at d/c from ED?: No Referrals: Scott Medrano MD [Primary Care Provider] - 1-2 days Time of Disposition: 14:32
[2022-06-27 13:28] LABS: Basophils % (A) 0 %; Eosinophils # (A) 0.1 k/uL (0-0.7); Eosinophils % (A) 2 %; HCT 39.4 % (34.0-46.0); HGB 13.1 gm/dL (11.4-16.0); Lymphocytes # (A) 1.8 k/uL (1.0-4.8); Lymphocytes % (A) 25 %; MCH 28.6 pg (25.0-35.0); MCHC 33.3 g/dL (31.0-37.0); MCV 85.7 fL (80.0-100.0); Mean Platelet Volume 7.8; Monocytes # (A) 0.3 k/uL (0-1.0); Monocytes % (A) 4 %; Neutrophils # (A) 4.8 k/uL (1.3-7.7); Neutrophils % (A) 68 %; Platelet Count 267 k/uL (150-450); RBC 4.59 m/uL (3.80-5.40); RDW 14.7 % (11.5-15.5); WBC 7.1 k/uL (3.8-10.6)
[2022-06-27 13:39] VITALS: BP 160/83; PULSE 68
[2022-06-27] MEDS ORDERED: ACETAMINOPHEN TAB 500 MG TAB PO STA (13:41)
[2022-06-27 14:23] LABS: ALT 24 U/L (4-34); AST 27 U/L (14-36); African American GFR (CKD) >90 (>60 ml/min/1.73 sqM); Albumin 4.5 g/dL (3.5-5.0); Alkaline Phosphatase 190 U/L (38-126); Anion Gap 9 mmol/L; Blood Urea Nitrogen 24 mg/dL (7-17); Calcium 9.5 mg/dL (8.4-10.2); Carbon Dioxide 23 mmol/L (22-30); Chloride 109 mmol/L (98-107); Glucose 95 mg/dL (74-99); Magnesium 2.2 mg/dL (1.6-2.3); Non-African American GFR(CKD) 86 (>60 ml/min/1.73 sqM); Potassium 4.5 mmol/L (3.5-5.1); Sodium 141 mmol/L (137-145); Total Bilirubin 0.4 mg/dL (0.2-1.3); Total Protein 7.9 g/dL (6.3-8.2)
== END 2022-06-27 15:10 | disposition home or self-care (01) ==
LOC: EC 11:52
DX: R11.0 Nausea (principal); F41.9 Anxiety disorder, unspecified; Z88.0 Allergy status to penicillin; Z88.1 Allergy status to other antibiotic agents; Z88.8 Allergy status to other drugs, medicaments and biological substances; Z90.49 Acquired absence of other specified parts of digestive tract
CPT/HCPCS: 36415; 93005; 80053; 80175; 83735; 85025; 99284; 96374; 96375 ×2; J3360; J2405

== ENCOUNTER 2022-07-29 21:01 | Emergency (ER) | payer OTHER ==
[2022-07-29 21:31] VITALS: TEMP 97.6
[2022-07-29 21:46] LABS: Glucose,Whole Blood 131 mg/dL (70-110)
[2022-07-29] MEDS ORDERED: SODIUM CHLORIDE 0.9% 1,000 ML IV STA (21:50)
[2022-07-29] MEDS ORDERED: ONDANSETRON 4 MG/2 ML VIAL IVP STA (21:50)
--- NOTE | 2022-07-29 22:04 | ED ---
General Adult HPI - General Chief complaint: Nausea/Vomiting/Diarrhea Stated complaint: High BP, Vomiting Time Seen by Provider: 07/29/22 21:35 Source: patient Mode of arrival: ambulatory Limitations: no limitations - History of Present Illness Initial comments: 56-year-old female with past medical history of seizure disorder, colon cancer who presents to the emergency department reporting nausea and vomiting. Called her father to state that she "did not feel herself today". She had an episode of vomiting at home. Took her vitals and noted that her blood pressure was high. Upon arrival to the hospital the patient did have an approximately 3 mi nute seizure in the waiting room. 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 She takes Topamax and Lamictal. States she has been compliant. Follows with Dr. Reina. Father states she normally has focal seizures every few months but has not had a grand mal seizure in years. No injuries from the seizure. Denies fevers. Did not take any medications at h ome for her symptoms. No sick contacts. No other alleviating, precipitating or modifying factors - Related Data Home Medications Medication Instructions Recorded Confirmed lamoTRIgine [LaMICtal] 200 mg PO BID 09/26/18 07/29/22 Topiramate 75 mg PO BID 12/19/19 07/29/22 Sertraline [Zoloft] 100 mg PO DAILY 03/22/22 07/29/22 HYDROcodone/APAP 7.5-325MG [[place] 1 tab PO BID PRN 07/29/22 07/29/22 7.5-325] diazePAM [Valium] 5 mg PO TID PRN 07/29/22 07/29/22 Allergies Allergy/AdvReac Type Severity Reaction Status Date / Time cephalexin [From Keflex] Allergy Rash/Hives Verified 07/29/22 22:28 codeine Allergy Rash/Hives Verified 07/29/22 22:28 erythromycin base Allergy Rash/Hives Verified 07/29/22 22:28 gadobutrol [From Gadavist] Allergy Anaphylaxis Verified 07/29/22 22:28 Gadolinium-Containing Allergy Anaphylaxis Verified 07/29/22 22:28 Contrast Medi iodine Allergy Anaphylaxis Verified 07/29/22 22:28 ketorolac tromethamine Allergy Rash/Hives/ Verified 07/29/22 22:28 [From Toradol] hallucinati ons Penicillins Allergy Anaphylaxis Verified 07/29/22 22:28 vancomycin Allergy Anaphylaxis Verified 07/29/22 22:28 azithromycin AdvReac red face Verified 07/29/22 22:28 diphenhydramine AdvReac Confusion Verified 07/29/22 22:28 [From Benadryl] lorazepam [From Ativan] AdvReac Hallucinati Verified 07/29/22 22:28 ons Review of Systems ROS Statement: Those systems with pertinent positive or pertinent negative responses have been documented in the HPI. ROS Other: All systems not noted in ROS Statement are negative. Past Medical History Past Medical History: Cancer, CVA/TIA, Pneumonia, Seizure Disorder, Syncope Additional Past Medical History / Comment(s): "Stress seizures"-past hx grand mal seizures, last seizure 01/2022 months ago. Insomnia. Hx colon cancer X2 (last 2020). Diarrhea and bleeding. Episodes of "passing out" from pain from cancer. 6 bulging discs in neck. HX BLOOD TRANSFUSIONS FOR LOW HGB. Tachycardia, has Loop Recorder.( needs to have it removed no longer happening since wt loss and getting healthier). VNS epilepsy port removed d/t infection. stroke many years ago no residuals. wound to left chest from VNS site packed and dressed has Visiting nurse QOD. History of Any Multi-Drug Resistant Organisms: C-DIFF, MRSA Date of last positivie culture/infection: 01/23 MDRO Source:: left chest Past Surgical History: Appendectomy, Bowel Resection, Cholecystectomy, Ear Surgery, Hysterectomy, Orthopedic Surgery Additional Past Surgical History / Comment(s): Bilateral knee arthroscopy, hiatal hernia surgery, right ear surgery to remove middle ear, lymph node biopsy right armpit, loop recorder, surgery on 3 blocked sweat glands.vagus nerve stimulator - removed except clamp. Past Anesthesia/Blood Transfusion Reactions: Postoperative Nausea & Vomiting (PONV) Additional Past Anesthesia/Blood Transfusion Reaction / Comment(s): Pt has received blood in past without reaction. Past Psychological History: No Psychological Hx Reported, Anxiety Smoking Status: Never smoker Past Alcohol Use History: None Reported Past Drug Use History: None Reported - Past Family History Mother Family Medical History: Coronary Artery Disease (CAD), Diabetes Mellitus Father Family Medical History: No Reported History Additional Family Medical History / Comment(s): Father is healthy General Exam Limitations: altered mental status General appearance: obtunded, other (patient evaluated during seizure) Head exam: Present: atraumatic, normocephalic, normal inspection Eye exam: Present: normal appearance, PERRL, EOMI. Absent: scleral icterus, conjunctival injection, periorbital swelling ENT exam: Present: normal exam, mucous membranes moist Respiratory exam: Present: normal lung sounds bilaterally. Absent: respiratory distress, wheezes, rales, rhonchi, stridor Cardiovascular Exam: Present: regular rate, normal rhythm, normal heart sounds. Absent: systolic murmur, diastolic murmur, rubs, gallop, clicks GI/Abdominal exam: Present: soft, normal bowel sounds. Absent: distended, tenderness, guarding, rebound, rigid Neurological exam: Present: altered, other (tonic clonic seizure activity) Skin exam: Present: warm, dry, intact, normal color. Absent: rash Course Vital Signs 07/29/22 07/29/22 07/29/22 21:28 21:49 22:36 Temperature 97.6 F Pulse Rate 88 74 74 Respiratory 20 27 H 19 Rate Blood Pressure 183/100 161/70 138/102 O2 Sat by Pulse 98 99 100 Oximetry 07/30/22 00:04 Temperature Pulse Rate 73 Respiratory 18 Rate Blood Pressure 149/70 O2 Sat by Pulse 100 Oximetry EKG Findings - EKG Comments: EKG Findings:: EKG demonstrates sinus rhythm with rate of 66. NC interval 176. QRS 184. QTC of 503. Right bundle branch block. Left anterior fascicular block. No acute ST segment elevations Medical Decision Making - Medical Decision Making Was pt. sent in by a medical professional or institution (, PA, MACHINE OPERATOR CANE CUTTER, urgent care, hospital, or custodial...) When possible be specific @ -No Did you speak to anyone other than the patient for history (EMS, parent, family, police, friend...)? What history was obtained from this source @ -the patients father provides details of the history Did you review nursing and triage notes (agree or disagree)? Why? @ -I reviewed and agree with nursing and triage notes Were old charts reviewed (outside hosp., previous admission, EMS record, old EKG, old radiological studies, urgent care reports/EKG's, custodial records)? Report findings @ old charts were reviewed. Patient has been evaluated several times in the ED for seizure like activity Differential Diagnosis (chest pain, altered mental status, abdominal pain women, abdominal pain men, vaginal bleeding, weakness, fever, dyspnea, syncope, headache, dizziness, GI bleed, back pain, seizure, CVA, palpatations, mental health, musculoskeletal)? @ -seizure, pseudoseizure, influenza, covid, viral syndrome EKG interpreted by me (3pts min.). @ -yes X-rays interpreted by me (1pt min.). @ -None done CT interpreted by me (1pt min.). @ -None done U/S interpreted by me (1pt. min.). @ -None done What testing was considered but not performed or refused? (CT, X-rays, U/S, la bs)? Why? @ -None What meds were considered but not given or refused? Why? @ -ativan for seizure however father states she is allergic Did you discuss the management of the patient with other professionals (professionals i.e. , PA, MACHINE OPERATOR CANE CUTTER, lab, RT, psych nurse, social group worker, monument installer, teacher, traffic officer, clinical case manager)? Give summary @ -No Was smoking cessation discussed for >3mins.? @ -No Was critical care preformed (if so, how long)? @ -No Were there social determinants of health that impacted care today? How? (Homelessness, low income, unemployed, alcoholism, drug addiction, transportation, low edu. Level, literacy, decrease access to med. care, skilled nursing, rehab)? @ -No Was there de-escalation of care discussed even if they declined (Discuss DNR or withdrawal of care, Hospice)? DNR status @ -No What co-morbidities impacted this encounter? (DM, HTN, Smoking, COPD, CAD, Cancer, CVA, ARF, Chemo, Hep., AIDS, mental health diagnosis, sleep apnea, morbid obesity)? @ -seizure disorder, gastric cancer Was patient admitted / discharged? Hospital course, mention meds given and route, prescriptions, significant lab abnormalities, going to OR and other pertinent info. @ -Upon arrival patient was placed into room 3. Patient shortly after being placed in the room has a full tonic-clonic seizure. I'm called into the room to assess the patient and she does stop seizing upon my arrival. Father states that she does have an ALLERGY to Ativan. IV is established patient is given IV fluids. Laboratory studies are conducted. She was given informal grams of Zofran for her nausea. Laboratory studies are reviewed and the results were discussed the patient. States she feels much improved at this time. She'll be discharged home with follow-up instructions for Dr. Koch, the epileptologist. Return for any new or worsening symptoms. Patient was agreeable to this and she was discharged home in stable condition Undiagnosed new problem with uncertain prognosis? @ -Yes Drug Therapy requiring intensive monitoring for toxicity (Heparin, Nitro, Insulin, Cardizem)? @ -No Were any procedures done? @ -No Diagnosis/symptom? @ -acute seizure, acute nausea and vomiting Acute, or Chronic, or Acute on Chronic? @ -acute Uncomplicated (without systemic symptoms) or Complicated (systemic symptoms)? @ -complicated Side effects of treatment? @ -No Exacerbation, Progression, or Severe Exacerbation? @ -No Poses a threat to life or bodily function? How? (Chest pain, USA, CT, pneumonia, PE, COPD, DKA, ARF, appy, cholecystitis, CVA, Diverticulitis, Homicidal, Suicidal, threat to staff... and all critical care pts) @ -Yes due to possibility of aspiration during seizure - Lab Data Result diagrams: 07/29/22 21:54 07/29/22 21:54 Lab Results 07/29/22 07/29/22 07/29/22 Range/Units 21:44 21:54 21:54 WBC 12.8 H (3.8-10.6) k/uL RBC 4.52 (3.80-5.40) m/uL Hgb 12.9 (11.4-16.0) gm/dL Hct 40.5 (34.0-46.0) % MCV 89.8 (80.0-100.0) fL MCH 28.5 (25.0-35.0) pg MCHC 31.8 (31.0-37.0) g/dL RDW 14.3 (11.5-15.5) % Plt Count 359 (150-450) k/uL MPV 7.8 Neutrophils % 56 % Lymphocytes % 37 % Monocytes % 4 % Eosinophils % 1 % Basophils % 0 % Neutrophils # 7.2 (1.3-7.7) k/uL Lymphocytes # 4.8 (1.0-4.8) k/uL Monocytes # 0.5 (0-1.0) k/uL Eosinophils # 0.1 (0-0.7) k/uL Basophils # 0.0 (0-0.2) k/uL Sodium 142 (137-145) mmol/L Potassium 3.6 (3.5-5.1) mmol/L Chloride 106 (98-107) mmol/L Carbon Dioxide 18 L (22-30) mmol/L Anion Gap 18 mmol/L BUN 23 H (7-17) mg/dL Creatinine 0.87 (0.52-1.04) mg/dL Est GFR (CKD-EPI)AfAm 86 (>60 ml/min/1.73 sqM) Est GFR (CKD-EPI)NonAf 75 (>60 ml/min/1.73 sqM) Glucose 131 H (74-99) mg/dL POC Glucose (mg/dL) 131 H (70-110) mg/dL POC Glu Electrical Transmission Engineer ID Steffen Clements Lactic Ac Sepsis Rflx Plasma Lactic Acid Williams (0.7-2.0) mmol/L Calcium 9.4 (8.4-10.2) mg/dL Magnesium (1.6-2.3) mg/dL Total Bilirubin 0.4 (0.2-1.3) mg/dL AST 27 (14-36) U/L ALT 20 (4-34) U/L Alkaline Phosphatase 181 H (38-126) U/L Total Protein 8.0 (6.3-8.2) g/dL Albumin 4.6 (3.5-5.0) g/dL Lipase 127 (23-300) U/L Urine Color Urine Appearance (Clear) Urine pH (5.0-8.0) Ur Specific [place] (1.001-1.035) Urine Protein (Negative) Urine Glucose (UA) (Negative) Urine Ketones (Negative) Urine Blood (Negative) Urine Nitrite (Negative) Urine Bilirubin (Negative) Urine Urobilinogen (<2.0) mg/dL Ur Leukocyte Esterase (Negative) Urine RBC (0-5) /hpf Urine WBC (0-5) /hpf Urine Bacteria (None) /hpf Hyaline Casts (0-2) /lpf Urine Mucus (None) /hpf Lamotrigine (2.0-15.0) ug/mL Topiramate (2.0-20.0) ug/mL Influenza Type A (PCR) (Not Detectd) Influenza Type B (PCR) (Not Detectd) RSV (PCR) (Not Detectd) SARS-CoV-2 (PCR) (Not Detectd) 07/29/22 07/29/22 07/29/22 Range/Units 21:55 21:55 21:55 WBC (3.8-10.6) k/uL RBC (3.80-5.40) m/uL Hgb (11.4-16.0) gm/dL Hct (34.0-46.0) % MCV (80.0-100.0) fL MCH (25.0-35.0) pg MCHC (31.0-37.0) g/dL RDW (11.5-15.5) % Plt Count (150-450) k/uL MPV Neutrophils % % Lymphocytes % % Monocytes % % Eosinophils % % Basophils % % Neutrophils # (1.3-7.7) k/uL Lymphocytes # (1.0-4.8) k/uL Monocytes # (0-1.0) k/uL Eosinophils # (0-0.7) k/uL Basophils # (0-0.2) k/uL Sodium (137-145) mmol/L Potassium (3.5-5.1) mmol/L Chloride (98-107) mmol/L Carbon Dioxide (22-30) mmol/L Anion Gap mmol/L BUN (7-17) mg/dL Creatinine (0.52-1.04) mg/dL Est GFR (CKD-EPI)AfAm (>60 ml/min/1.73 sqM) Est GFR (CKD-EPI)NonAf (>60 ml/min/1.73 sqM) Glucose (74-99) mg/dL POC Glucose (mg/dL) (70-110) mg/dL POC Glu Electrical Transmission Engineer ID Lactic Ac Sepsis Rflx Plasma Lactic Acid [place] 7.9 H* (0.7-2.0) mmol/L Calcium (8.4-10.2) mg/dL Magnesium 2.2 (1.6-2.3) mg/dL Total Bilirubin (0.2-1.3) mg/dL AST (14-36) U/L ALT (4-34) U/L Alkaline Phosphatase (38-126) U/L Total Protein (6.3-8.2) g/dL Albumin (3.5-5.0) g/dL Lipase (23-300) U/L Urine Color Urine Appearance (Clear) Urine pH (5.0-8.0) Ur Specific [place] (1.001-1.035) Urine Protein (Negative) Urine Glucose (UA) (Negative) Urine Ketones (Negative) Urine Blood (Negative) Urine Nitrite (Negative) Urine Bilirubin (Negative) Urine Urobilinogen (<2.0) mg/dL Ur Leukocyte Esterase (Negative) Urine RBC (0-5) /hpf Urine WBC (0-5) /hpf Urine Bacteria (None) /hpf Hyaline Casts (0-2) /lpf Urine Mucus (None) /hpf Lamotrigine 3.3 (2.0-15.0) ug/mL Topiramate 2.8 (2.0-20.0) ug/mL Influenza Type A (PCR) (Not Detectd) Influenza Type B (PCR) (Not Detectd) RSV (PCR) (Not Detectd) SARS-CoV-2 (PCR) (Not Detectd) 07/29/22 07/29/22 07/30/22 Range/Units 22:01 22:39 00:03 WBC (3.8-10.6) k/uL RBC (3.80-5.40) m/uL Hgb (11.4-16.0) gm/dL Hct (34.0-46.0) % MCV (80.0-100.0) fL MCH (25.0-35.0) pg MCHC (31.0-37.0) g/dL RDW (11.5-15.5) % Plt Count (150-450) k/uL MPV Neutrophils % % Lymphocytes % % Monocytes % % Eosinophils % % Basophils % % Neutrophils # (1.3-7.7) k/uL Lymphocytes # (1.0-4.8) k/uL Monocytes # (0-1.0) k/uL Eosinophils # (0-0.7) k/uL Basophils # (0-0.2) k/uL Sodium (137-145) mmol/L Potassium (3.5-5.1) mmol/L Chloride (98-107) mmol/L Carbon Dioxide (22-30) mmol/L Anion Gap mmol/L BUN (7-17) mg/dL Creatinine (0.52-1.04) mg/dL Est GFR (CKD-EPI)AfAm (>60 ml/min/1.73 sqM) Est GFR (CKD-EPI)NonAf (>60 ml/min/1.73 sqM) Glucose (74-99) mg/dL POC Glucose (mg/dL) (70-110) mg/dL POC Glu Electrical Transmission Engineer ID Lactic Ac Sepsis Rflx Y Plasma Lactic Acid [place] (0.7-2.0) mmol/L Calcium (8.4-10.2) mg/dL Magnesium (1.6-2.3) mg/dL Total Bilirubin (0.2-1.3) mg/dL AST (14-36) U/L ALT (4-34) U/L Alkaline Phosphatase (38-126) U/L Total Protein (6.3-8.2) g/dL Albumin (3.5-5.0) g/dL Lipase (23-300) U/L Urine Color Light Yellow Urine Appearance Clear (Clear) Urine pH 6.5 (5.0-8.0) Ur Specific [place] 1.011 (1.001-1.035) Urine Protein Negative (Negative) Urine Glucose (UA) Negative (Negative) Urine Ketones Negative (Negative) Urine Blood Negative (Negative) Urine Nitrite Negative (Negative) Urine Bilirubin Negative (Negative) Urine Urobilinogen <2.0 (<2.0) mg/dL Ur Leukocyte Esterase Large H (Negative) Urine RBC 1 (0-5) /hpf Urine WBC 31 H (0-5) /hpf Urine Bacteria Rare H (None) /hpf Hyaline Casts 12 H (0-2) /lpf Urine Mucus Rare H (None) /hpf Lamotrigine (2.0-15.0) ug/mL Topiramate (2.0-20.0) ug/mL Influenza Type A (PCR) Not Detected (Not Detectd) Influenza Type B (PCR) Not Detected (Not Detectd) RSV (PCR) Not Detected (Not Detectd) SARS-CoV-2 (PCR) Not Detected (Not Detectd) Disposition Clinical Impression: Nausea and vomiting, Breakthrough seizure Disposition: HOME SELF-CARE Condition: Stable Instructions (If sedation given, give patient instructions): Seizure/Epilepsy Discharge Instructions & Follow-Up Additional Instructions: Please follow-up with Dr. Koch in regards to your seizures and return for any new or worsening symptoms Is patient prescribed a controlled substance at d/c from ED?: No Referrals: Scott Medrano MD [Primary Care Provider] - 1-2 days John Koch MD [STAFF PHYSICIAN] - 1-2 days Time of Disposition: 00:30
[2022-07-29 22:24] LABS: Albumin 4.6 g/dL (3.5-5.0); Calcium 9.4 mg/dL (8.4-10.2); Potassium 3.6 mmol/L (3.5-5.1); Total Bilirubin 0.4 mg/dL (0.2-1.3)
[2022-07-29 22:38] LABS: Basophils % (A) 0 %; Eosinophils # (A) 0.1 k/uL (0-0.7); Eosinophils % (A) 1 %; HCT 40.5 % (34.0-46.0); HGB 12.9 gm/dL (11.4-16.0); Lymphocytes # (A) 4.8 k/uL (1.0-4.8); Lymphocytes % (A) 37 %; MCH 28.5 pg (25.0-35.0); MCHC 31.8 g/dL (31.0-37.0); MCV 89.8 fL (80.0-100.0); Mean Platelet Volume 7.8; Monocytes # (A) 0.5 k/uL (0-1.0); Monocytes % (A) 4 %; Neutrophils # (A) 7.2 k/uL (1.3-7.7); Neutrophils % (A) 56 %; Platelet Count 359 k/uL (150-450); RBC 4.52 m/uL (3.80-5.40); RDW 14.3 % (11.5-15.5); WBC 12.8 k/uL (3.8-10.6)
[2022-07-30] MEDS ORDERED: diazePAM 5 MG TAB PO PRN
[2022-07-30] MEDS ORDERED: TOPIRAMATE 25 MG TAB PO SCH
[2022-07-30] MEDS ORDERED: lamoTRIgine 100 MG TAB PO SCH
[2022-07-30 00:07] VITALS: BP 149/70; PULSE 73; RESP 18
[2022-07-30 01:28] LABS: Appearance,Urine Clear (Clear); Bacteria,Urine Rare /hpf; Bilirubin,Urine Negative (Negative); Blood,Urine Negative (Negative); Color,Urine Light Yellow; Glucose,Urine (UA) Negative (Negative); Hyaline Casts,Urine 12 /lpf (0-2); Ketones,Urine Negative (Negative); Leukocyte Esterase,Urine Large (Negative); Mucus,Urine Rare /hpf; Nitrite,Urine Negative (Negative); PH, Urine 6.5 (5.0-8.0); Protein,Urine Negative (Negative); RBC,Urine 1 /hpf (0-5); Specific Gravity,Urine 1.011 (1.001-1.035); Urobilinogen,Urine <2.0 mg/dL (<2.0); WBC,Urine 31 /hpf (0-5)
[2022-08-02 07:23] LABS: Topiramate 2.8 ug/mL (2.0-20.0)
[2022-08-02 07:40] LABS: Lamotrigine (Lamictal) 3.3 ug/mL (2.0-15.0)
== END 2022-07-30 00:56 | disposition home or self-care (01) ==
LOC: EC 21:01
DX: R11.2 Nausea with vomiting, unspecified (principal); R56.9 Unspecified convulsions; Z88.0 Allergy status to penicillin; Z88.1 Allergy status to other antibiotic agents; Z88.8 Allergy status to other drugs, medicaments and biological substances; Z79.899 Other long term (current) drug therapy; Z20.822 Contact with and (suspected) exposure to COVID-19
CPT/HCPCS: 36415; 93005; 80053; 80175; 80201; 83605; 83690; 83735; 85025; 81001; 87636; 99284; 96374; 96361; J2405

== ENCOUNTER → 2022-09-28 | Outpatient (CLI) | payer OTHER ==
[2022-09-28 20:18] LABS: ALT 18 U/L (8-44); AST 22 U/L (13-35); Albumin 4.2 d/dL (3.8-4.9); Alkaline Phosphatase 179 U/L (41-126); Bilirubin, Conjugated <0.20 mg/dL (0.20-0.40); GGT 110 U/L (0-38); Globulin 2.8 d/dL (1.6-3.3); Total Bilirubin <0.2 mg/dL (0.3-1.2)
== END | disposition home or self-care (01) ==
LOC: LABWHC1 10:17
PROVIDERS: ATTEND Family Medicine
DX: F44.5 Conversion disorder with seizures or convulsions (principal); G43.519 Persistent migraine aura without cerebral infarction, intractable, without status migrainosus; K92.1 Melena; E66.9 Obesity, unspecified; R10.11 Right upper quadrant pain; R74.8 Abnormal levels of other serum enzymes; Z85.038 Personal history of other malignant neoplasm of large intestine; Z68.34 Body mass index [BMI] 34.0-34.9, adult
CPT/HCPCS: 36415; 80076; 82977

== ENCOUNTER → 2022-10-04 | Outpatient (CLI) | payer OTHER ==
--- NOTE | 2022-10-04 10:26 | US ---
EXAMINATION TYPE: US abdomen complete DATE OF EXAM: 10/04/2022 COMPARISON: CT abdomen 03/09/2022 CLINICAL INDICATION: Female, 56 years old with history of R74.8 ABD LEVELS OF OTHER SERUM ENZYMES; el evated enzymes (alkaline phosphatase). RUQ pain, nausea, cholecystectomy. History of liver lesion TECHNIQUE: Multiple sonographic images of the abdomen are obtained. FINDINGS: EXAM MEASUREMENTS: Liver Length: 15.1 cm Gallbladder Wall: Surgically absent CBD: 0.4 cm Spleen: 9.4 cm Right Kidney: 10.2 x 4.9 x 4.1 cm Left Kidney: 11.1 x 4.8 x 4.7 cm TECHNICAL MANAGER [employer]MICAL PLANT NOTES: Technical limitations due to large amount of overlying bowel content Pancreas: Obscured by bowel gas Liver: limited evaluation, only visualized intercostally. ?Subtle isoechoic area = 2.7 x 2.4 x 2.4c m Gallbladder: Surgically absent Evidence for sonographic Steve's sign: no CBD: wnl Spleen: wnl Right Kidney: no evidence of hydronephrosis Left Kidney: dilated renal pelvis Upper IVC: wnl Abd Aorta: visualized portions appear wnl IMPRESSION: 1. There is a shadowing iso to hypoechoic area within the liver measuring 2.7 x 2[address] abdo men recommended for additional evaluation.
== END | disposition home or self-care (01) ==
LOC: RADUSWWP 09:02
PROVIDERS: ATTEND Family Medicine
DX: R10.11 Right upper quadrant pain (principal); R74.8 Abnormal levels of other serum enzymes
CPT/HCPCS: 76700

== ENCOUNTER 2022-11-05 20:36 | Emergency (ER) | payer OTHER ==
[2022-11-05] MEDS ORDERED: SODIUM CHLORIDE 0.9% 1,000 ML IV ONE (21:42)
[2022-11-05] MEDS ORDERED: ONDANSETRON 4 MG/2 ML VIAL IVP STA (21:42)
[2022-11-05] MEDS ORDERED: HYDROcodone/APAP 7.5-325MG 1 EACH TAB PO ONE (21:43)
[2022-11-05 22:00] LABS: Basophils % (A) 0 %; Eosinophils # (A) 0.2 k/uL (0-0.7); Eosinophils % (A) 2 %; HCT 41.4 % (34.0-46.0); HGB 13.7 gm/dL (11.4-16.0); Lymphocytes # (A) 2.5 k/uL (1.0-4.8); Lymphocytes % (A) 26 %; MCHC 33.2 g/dL (31.0-37.0); MCV 90.5 fL (80.0-100.0); Monocytes # (A) 0.4 k/uL (0-1.0); Monocytes % (A) 4 %; Neutrophils # (A) 6.4 k/uL (1.3-7.7); Neutrophils % (A) 68 %; Platelet Count 272 k/uL (150-450); RBC 4.57 m/uL (3.80-5.40); RDW 14.4 % (11.5-15.5); WBC 9.5 k/uL (3.8-10.6)
[2022-11-05 22:14] LABS: ALT 24 U/L (4-34); AST 32 U/L (14-36); African American GFR (CKD) 82 (>60 ml/min/1.73 sqM); Albumin 4.2 g/dL (3.5-5.0); Alkaline Phosphatase 207 U/L (38-126); Anion Gap 9 mmol/L; Blood Urea Nitrogen 20 mg/dL (7-17); Calcium 9.2 mg/dL (8.4-10.2); Carbon Dioxide 24 mmol/L (22-30); Chloride 107 mmol/L (98-107); Glucose 93 mg/dL (74-99); Magnesium 2.2 mg/dL (1.6-2.3); Non-African American GFR(CKD) 71 (>60 ml/min/1.73 sqM); Potassium 4.1 mmol/L (3.5-5.1); Sodium 140 mmol/L (137-145); Total Bilirubin 0.4 mg/dL (0.2-1.3); Total Protein 7.5 g/dL (6.3-8.2)
--- NOTE | 2022-11-05 22:22 | ED ---
General Adult HPI - General Chief complaint: Fall Stated complaint: Seizure Time Seen by Provider: 11/05/22 21:21 Source: patient, EMS, RN notes reviewed Mode of arrival: EMS Limitations: no limitations - History of Present Illness Initial comments: This is a pleasant 56-year-old female with past medical history significant for seizures who presents to the emergency department via EMS with a chief complaint of fall. Patient reports that she was at the os. Prior to arrival when she lost her footing on the pavement and fell forward onto her face. Witnesses report that she had a brief loss of consciousness and believes she had a seizure. She does report having a history of seizures and takes lamotrigine. She did take her medication today. She denies any dizziness, lightheadedness, nausea, vomiting, vision loss or vision changes. She does report feeling generalized body pain. She reports that she took [place] 7.5 at home. She does report that she has a chronic stress condition. - Related Data Home Medications Medication Instructions Recorded Confirmed lamoTRIgine [LaMICtal] 200 mg PO BID 09/26/18 09/15/22 Topiramate 75 mg PO BID 12/19/19 09/15/22 Sertraline [Zoloft] 100 mg PO DAILY 03/22/22 09/15/22 HYDROcodone/APAP 7.5-325MG [[place] 1 tab PO BID PRN 07/29/22 09/15/22 7.5-325] Previous Rx's Medication Instructions Recorded Cyclobenzaprine [Flexeril] 10 mg PO TID PRN #15 tab 11/05/22 Allergies Allergy/AdvReac Type Severity Reaction Status Date / Time cephalexin [From Keflex] Allergy Rash/Hives Verified 11/05/22 20:43 codeine Allergy Rash/Hives Verified 11/05/22 20:43 erythromycin base Allergy Rash/Hives Verified 11/05/22 20:43 gadobutrol [From Gadavist] Allergy Anaphylaxis Verified 11/05/22 20:43 Gadolinium-Containing Allergy Anaphylaxis Verified 11/05/22 20:43 Contrast Medi iodine Allergy Anaphylaxis Verified 11/05/22 20:43 ketorolac tromethamine Allergy Rash/Hives/ Verified 11/05/22 20:43 [From Toradol] hallucinati ons Penicillins Allergy Anaphylaxis Verified 11/05/22 20:43 vancomycin Allergy Anaphylaxis Verified 11/05/22 20:43 azithromycin AdvReac red face Verified 11/05/22 20:43 diphenhydramine AdvReac Confusion Verified 11/05/22 20:43 [From Benadryl] lorazepam [From Ativan] AdvReac Hallucinati Verified 11/05/22 20:43 ons Review of Systems ROS Statement: Those systems with pertinent positive or pertinent negative responses have been documented in the HPI. ROS Other: All systems not noted in ROS Statement are negative. 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 BLOOD TRANSFUSIONS FOR LOW HGB. History of Any Multi-Drug Resistant Organisms: MRSA Date of last positivie culture/infection: 08/10/19 MDRO Source:: URINE Past Surgical History: Appendectomy, Bowel Resection, Cholecystectomy, Ear Surgery, Hysterectomy, Orthopedic Surgery Additional Past Surgical History / Comment(s): frantz knee arthroscopy, hiatal hernia surgery, rt ear surgery to remove middle ear, lymph node biopsy right a rmpit. loop recorder Past Anesthesia/Blood Transfusion Reactions: Postoperative Nausea & Vomiting (PONV) Additional Past Anesthesia/Blood Transfusion Reaction / Comment(s): Pt has received blood in past without reaction. Past Psychological History: Anxiety, Panic Disorder Smoking Status: Never smoker Past Alcohol Use History: None Reported Past Drug Use History: None Reported - Past Family History Mother Additional Family Medical History / Comment(s): . Father Family Medical History: No Reported History Additional Family Medical History / Comment(s): Father is healthy General Exam - General Exam Comments Initial Comments: General: Alert, in no acute distress Head: atraumatic normocephalic. Eyes PERRL, EOMI intact, mucous membranes moist, nose with mild ecchymosis remains is patent Respiratory: Lungs clear to auscultation bilaterally Cardiovascular: Heart rate regular rate and rhythm Abdominal: Soft without guarding or rebound Extremities: Normal inspection with full range of motion and normal capillary refill Neuroogic: alert and oriented 3, CN II-XII intact, able to ambulate with steady gait Skin: warm dry and intact with normal color Limitations: no limitations Course Vital Signs 11/05/22 11/05/22 20:44 23:51 Temperature 97.0 F L 97.5 F L Pulse Rate 82 68 Respiratory 18 16 Rate Blood Pressure 177/76 146/86 O2 Sat by Pulse 98 98 Oximetry EKG Findings - EKG Comments: EKG Findings:: For the following: EKG performed at 20:45 8 77 bpm block with right bundle branch block IL interval 224, transportation 165, QT/QTc 437/438 Medical Decision Making - Medical Decision Making Was pt. sent in by a medical professional or institution (, PA, [facility], urgent care, hospital, or prison...) When possible be specific @ -[No] Did you speak to anyone other than the patient for history (EMS, parent, family, police, friend...)? What history was obtained from this source @ -Mother, father, friend, EMS Did you review nursing and triage notes (agree or disagree)? Why? @ -[I reviewed and agree with nursing and triage notes] Were old charts reviewed (outside hosp., previous admission, EMS record, old EKG, old radiological studies, urgent care reports/EKG's, prison records)? Report findings @ -[No old charts were reviewed] Differential Diagnosis (chest pain, altered mental status, abdominal pain women, abdominal pain men, vaginal bleeding, weakness, fever, dyspnea, syncope, headache, dizziness, GI bleed, back pain, seizure, CVA, palpatations, mental health, musculoskeletal)? @ -[not applicable] EKG interpreted by me (3pts min.). @ -[As above] X-rays interpreted by me (1pt min.). @ -[None done] CT interpreted by me (1pt min.). @ -CT head and C-spine and facial bones were negative for any intracranial process or facial bone fracture U/S interpreted by me (1pt. min.). @ -[None done] What testing was considered but not performed or refused? (CT, X-rays, U/S, labs)? Why? @ -[None] What meds were considered but not given or refused? Why? @ -[None] Did you discuss the management of the patient with other professionals (professionals i.e. , PA, [facility], lab, RT, psych nurse, protective services social worker, railroader, teacher, legal officer, watch caser)? Give summary @ -[No] Was smoking cessation discussed for >3mins.? @ -[No] Was critical care preformed (if so, how long)? @ -[No] Were there social determinants of health that impacted care today? How? (Homelessness, low income, unemployed, alcoholism, drug addiction, transportation, low edu. Level, literacy, decrease access to med. care, halfway, rehab)? @ -[No] Was there de-escalation of care discussed even if they declined (Discuss DNR or withdrawal of care, Hospice)? DNR status @ -[No] What co-morbidities impacted this encounter? (DM, HTN, Smoking, COPD, CAD, Cancer, CVA, ARF, Chemo, Hep., AIDS, mental health diagnosis, sleep apnea, morbid obesity)? @ -[None] Was patient admitted / discharged? Hospital course, mention meds given and route, prescriptions, significant lab abnormalities, going to OR and other pertinent info. @ -Discharged. This is a pleasant 56-year-old female with a past medical history significant for seizures who presents emergency Department with a chief complaint of fall. Patient had a thorough history and physical exam performed on the ED. Physical exam is essentially unremarkable.. Heart rate regular rate and rhythm, lungs clear to auscultation bilaterally, abdomen soft. No focal neuro deficits noted on exam. Patient able pain related with steady gait and move all extremities freely.. Patient lab work performed which was essentially unremarkable. I discussed the results in detail with the patient verbalized understanding and all questions were addressed. She was given a [place] and flexeril and 1 L IV with symptomatic relief in the emergency department. Return precautions were discussed at length with recommend close follow-up with PCP in 1-2 days. Patient will be discharged in stable condition Case discussed with Dr. Jimenez, who agrees with plan of care Undiagnosed new problem with uncertain prognosis? @ -[No] Drug Therapy requiring intensive monitoring for toxicity (Heparin, Nitro, Insulin, Cardizem)? @ -[No] Were any procedures done? @ -[No] Diagnosis/symptom? @ -Mechanical Fall - Hx of Seizure Acute, or Chronic, or Acute on Chronic? @ -Acute Uncomplicated (without systemic symptoms) or Complicated (systemic symptoms)? @ -Uncomplicated Side effects of treatment? @ -[No] Exacerbation, Progression, or Severe Exacerbation? @ -[No] Poses a threat to life or bodily function? How? (Chest pain, USA, CA, pneumonia, PE, COPD, DKA, ARF, appy, cholecystitis, CVA, Diverticulitis, Homicidal, Suicidal, threat to staff... and all critical care pts) @ -Low likelihood - Lab Data Result diagrams: 11/05/22 21:46 11/05/22 21:46 Lab Results 11/05/22 11/05/22 11/05/22 Range/Units 21:46 21:46 21:46 WBC 9.5 (3.8-10.6) k/uL RBC 4.57 (3.80-5.40) m/uL Hgb 13.7 (11.4-16.0) gm/dL Hct 41.4 (34.0-46.0) % MCV 90.5 (80.0-100.0) fL MCH 30.0 (25.0-35.0) pg MCHC 33.2 (31.0-37.0) g/dL RDW 14.4 (11.5-15.5) % Plt Count 272 (150-450) k/uL MPV 8.0 Neutrophils % 68 % Lymphocytes % 26 % Monocytes % 4 % Eosinophils % 2 % Basophils % 0 % Neutrophils # 6.4 (1.3-7.7) k/uL Lymphocytes # 2.5 (1.0-4.8) k/uL Monocytes # 0.4 (0-1.0) k/uL Eosinophils # 0.2 (0-0.7) k/uL Basophils # 0.0 (0-0.2) k/uL Sodium 140 (137-145) mmol/L Potassium 4.1 (3.5-5.1) mmol/L Chloride 107 (98-107) mmol/L Carbon Dioxide 24 (22-30) mmol/L Anion Gap 9 mmol/L BUN 20 H (7-17) mg/dL Creatinine 0.91 (0.52-1.04) mg/dL Est GFR (CKD-EPI)AfAm 82 (>60 ml/min/1.73 sqM) Est GFR (CKD-EPI)NonAf 71 (>60 ml/min/1.73 sqM) Glucose 93 (74-99) mg/dL Plasma Lactic Acid Williams 1.2 (0.7-2.0) mmol/L Calcium 9.2 (8.4-10.2) mg/dL Magnesium 2.2 (1.6-2.3) mg/dL Total Bilirubin 0.4 (0.2-1.3) mg/dL AST 32 (14-36) U/L ALT 24 (4-34) U/L Alkaline Phosphatase 207 H (38-126) U/L Total Protein 7.5 (6.3-8.2) g/dL Albumin 4.2 (3.5-5.0) g/dL Disposition Clinical Impression: Fall, Seizure Disposition: HOME SELF-CARE Condition: Stable Instructions (If sedation given, give patient instructions): Fall Prevention (ED) Additional Instructions: Please return to the nearest emergency department symptoms worsen or persist Prescriptions: Cyclobenzaprine [Flexeril] 10 mg PO TID PRN #15 tab PRN Reason: Muscle Spasm Is patient prescribed a controlled substance at d/c from ED?: No Referrals: Scott Medrano MD [Primary Care Provider] - 1-2 days Time of Disposition: 23:13
--- NOTE | 2022-11-05 22:48 | CT ---
EXAMINATION TYPE: CT brain trista wo con DATE OF EXAM: 11/05/2022 COMPARISON: 02/15/2022 HISTORY: pain after fall CT DLP: 1137.3 mGycm, Automated exposure control for dose reduction was used. CONTRAST: Patient injected with 0 mL of Isovue 300. CT of the brain is performed utilizing 3 mm thick sections through the posterior fossa and 3 mm thick sections through the remaining calvarium. Study is performed within 24 hours of arrival to the hospital. No abnormal hyperdensity is present to suggest an acute intracranial hemorrhage. No mass lesion is evident. No acute infarcts are evident. Ventricles and sulci are appropriate for the patient age. Hyperostosis frontalis internus, normal variant is present. Paranasal sinuses and mastoid air cells within the [id number] are clear. IMPRESSIONS: 1. No acute intracranial process radiographically apparent. Follow-up MRI can be performed as clinica lly indicated. CT cervical spine. COMPARISON: None CT of the cervical spine is performed in the axial plane at 2 mm thick sections. Reconstructed image s in the coronal, and sagittal plane are reviewed on the computer. No acute fractures are evident. Vertebral body alignment is normal. Disc heights are preserved. Vertebral body heights are preserved. No spinal canal stenosis is evident. No neural foraminal stenosis is evident. IMPRESSIONS: 1. No acute osseous abnormality cervical spine
--- NOTE | 2022-11-05 22:52 | CT ---
EXAMINATION TYPE: CT facial bones wo con DATE OF EXAM: 11/05/2022 COMPARISON: 11/10/2014 HISTORY: pain after fall CT DLP: 1137.3 mGycm CONTRAST: 0 mL of Isovue 300 The paranasal sinuses are examined in the axial plane at 2 mm thick sections. Reconstructed images i n the coronal plane were obtained. Maxillary spine is intact. Maxillary sinuses appear intact. Nasal bone is intact. Greater wings of sp henoid and zygomatic arches are normal. The maxillary sinuses are clear. The ethmoid air cells are clear. The sphenoid sinuses are clear. The frontal sinuses are clear. The septum is evaluated. There is septal deviation. The ostiomeatal units are patent. Appears be a right mastoidectomy. Opacification of the right mastoid region. Left mastoid air cells a re clear. IMPRESSIONS: 1. No acute posttraumatic changes.
[2022-11-05] MEDS ORDERED: CYCLOBENZAPRINE 10 MG TAB PO STA (23:22)
[2022-11-05 23:52] VITALS: BP 146/86; PULSE 68; RESP 16; TEMP 97.5
== END 2022-11-05 23:52 | disposition home or self-care (01) ==
LOC: EC 20:36
DX: S00.33XA Contusion of nose, initial encounter (principal); G40.409 Other generalized epilepsy and epileptic syndromes, not intractable, without status epilepticus; F41.9 Anxiety disorder, unspecified; Z88.0 Allergy status to penicillin; Z88.1 Allergy status to other antibiotic agents; Z88.8 Allergy status to other drugs, medicaments and biological substances; Z79.899 Other long term (current) drug therapy; W18.30XA Fall on same level, unspecified, initial encounter
CPT/HCPCS: 99285 ×2; 96374 ×2; 96361 ×3; 36415; 93005; 80053; 80175; 83605; 83735; 85025; 72125; 70486; 70450; J2405

== ENCOUNTER → 2022-11-08 | Outpatient (CLI) | payer OTHER ==
--- NOTE | 2022-11-08 12:06 | US ---
EXAMINATION TYPE: US carotid duplex BILAT DATE OF EXAM: 11/08/2022 COMPARISON: NONE CLINICAL INDICATION: Female, 56 years old with history of R00.2 HEART palpitations; vertigo and can heart heartbeat in her ears TECHNIQUE: Carotid duplex ultrasound examination. Indirect Doppler criteria was utilized. FINDINGS: EXAM MEASUREMENTS: RIGHT: Peak Systolic Velocity (PSV) cm/sec ----- Right CCA: 63.3 ----- Right ICA: 139.9 ----- Right ECA: 82.5 ICA/CCA ratio: 2.2 RIGHT: End Diastole cm/sec ----- Right CCA: 18.8 ----- Right ICA: 64.0 ----- Right ECA: 14.5 LEFT: Peak Systolic Velocity (PSV) cm/sec ----- Left CCA: 72.1 ----- Left ICA: 104.7 ----- Left ECA: 65.2 ICA/CCA ratio: 1.5 LEFT: End Diastole cm/sec ----- Left CCA: 18.7 ----- Left ICA: 28.9 ----- Left ECA: 10.4 VERTEBRALS (direction of flow): Right Vertebral: Antegrade Left Vertebral: Antegrade Rhythm: Normal WOOL SACKER NOTES: Habitus limits exam, homogeneous plaque seen bilaterally with increased velocities noted at right distal ICA IMPRESSION: * 50-69% stenosis of the right carotid bifurcation. * Less than 50% stenosis of the left carotid bifurcation. Criteria for Assigning % of Stenosis / Diameter reduction (Estimation based on the indirect measurements of the internal carotid artery velocities (ICA PSV). 1. Normal (no stenosis)=ICA PSV < 125 cm/s: ratio < 2.0: ICA EDV<40 cm/s. 2. Less than 50% stenosis=ICA PSV < 125 cm/s: ratio < 2.0: ICA EDV<40 cm/s. 3. 50 to 69% stenosis=ICA PSV of 125 to 230 cm/s: ration 2.0 ? 4.0: ICA EDV 40-100 cm/s. 4. Greater than 70% stenosis to near occlusion= ICA PSV > 230 cm/s: ratio > 4.0: ICA EDV > 100 cm/s. 5. Near occlusion= ICA PSV velocities may be low or undetectable: variable ratio and ICA EDV. 6. Total occlusion=unable to detect flow.
== END | disposition home or self-care (01) ==
LOC: RADUSWWP 10:40
PROVIDERS: ATTEND Family Medicine
DX: I65.23 Occlusion and stenosis of bilateral carotid arteries (principal); R00.2 Palpitations
CPT/HCPCS: 93880

== ENCOUNTER 2022-11-16 09:46 | Day surgery (SDC) | payer OTHER ==
[2022-11-11 11:53] VITALS: BMI 32.8
[2022-11-16] MEDS ORDERED: LACTATED RINGERS 1,000 ML IV ONE (10:05)
[2022-11-16 10:30] VITALS: TEMP 97.1
[2022-11-16] MEDS ORDERED: ONDANSETRON 4 MG/2 ML VIAL IVP ONE (10:37)
[2022-11-16] MEDS ORDERED: ONDANSETRON 4 MG/2 ML VIAL ONE (10:38)
[2022-11-16] MEDS ORDERED: PROPOFOL 10 MG/ML 20 ML VIAL IV ONE (10:55)
--- NOTE | 2022-11-16 11:00 | P.GSHP ---
History of Present Illness H&P Date: 11/16/22 Chief Complaint: Rectal bleeding 86 old female here for colonoscopy. Last colonoscopy less than 1 year ago. Patient with history of colon cancer on at least one occasion. Underwent previous right colectomy. Recently with some rectal bleeding. 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 chemo for colon ca. Iron transfusion FOR LOW HGB. last one in october,hx of blood transfusion. having blood in stool now. Patient had a recent fall where she states she tripped fell face first to concrete.with loc and stopped breathing. 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 She states Had a stress seizure because of event. History of Any Multi-Drug Resistant Organisms: MRSA Date of last positivie culture/infection: 05/07/2022 MDRO Source:: A device placed for seizures in chest and developed mrsa. Hx of urine mrsa Past Surgical History: Appendectomy, Bowel Resection, Cholecystectomy, Ear Surgery, Hysterectomy, Orthopedic Surgery Additional Past Surgical History / Comment(s): frantz knee arthroscopy, hiatal hernia surgery, rt ear surgery to remove middle ear, lymph node biopsy right armpit. loop recorder placed 2017. colon resectionx2, Past Anesthesia/Blood Transfusion Reactions: Postoperative Nausea & Vomiting (PONV) Additional Past Anesthesia/Blood Transfusion Reaction / Comment(s): Pt has received blood in past without reaction. Type of Cardiac Device: Loop Device Placement Date:: 2016 states need to be removed everything fine now per patien Smoking Status: Never smoker - Past Family History Mother Family Medical History: Coronary Artery Disease (CAD), Diabetes Mellitus Additional Family Medical History / Comment(s): . Father Family Medical History: No Reported History Additional Family Medical History / Comment(s): Father is healthy Medications and Allergies Home Medications Medication Instructions Recorded Confirmed Type lamoTRIgine [LaMICtal] 200 mg PO BID 09/26/18 11/16/22 History Topiramate 75 mg PO BID 12/19/19 11/16/22 History Sertraline [Zoloft] 100 mg PO DAILY 03/22/22 11/16/22 History HYDROcodone/APAP 7.5-325MG [Blue 1 tab PO BID PRN 07/29/22 11/16/22 History 7.5-325] Cyclobenzaprine [Flexeril] 10 mg PO TID PRN #15 tab 11/05/22 11/16/22 Rx Allergies Allergy/AdvReac Type Severity Reaction Status Date / Time cephalexin [From Keflex] Allergy Rash/Hives Verified 11/16/22 10:11 codeine Allergy Rash/Hives Verified 11/16/22 10:11 erythromycin base Allergy Rash/Hives Verified 11/16/22 10:11 gadobutrol [From Gadavist] Allergy Anaphylaxis Verified 11/16/22 10:11 Gadolinium-Containing Allergy Anaphylaxis Verified 11/16/22 10:11 Contrast Medi iodine Allergy Anaphylaxis Verified 11/16/22 10:11 ketorolac tromethamine Allergy Rash/Hives/ Verified 11/16/22 10:11 [From Toradol] hallucinati ons Penicillins Allergy Anaphylaxis Verified 11/16/22 10:11 vancomycin Allergy Anaphylaxis Verified 11/16/22 10:11 azithromycin AdvReac red face Verified 11/16/22 10:11 diphenhydramine AdvReac Confusion Verified 11/16/22 10:11 [From Benadryl] lorazepam [From Ativan] AdvReac Hallucinati Verified 11/16/22 10:11 ons Surgical - Exam Vital Signs Temp Pulse Resp BP Pulse Ox 97.1 F L 85 16 153/63 94 L 11/16/22 10:05 11/16/22 10:05 11/16/22 10:05 11/16/22 10:05 11/16/22 10:05 Physical exam: General: Well-developed, well-nourished HEENT: Normocephalic, sclerae nonicteric Abdomen: Nontender, nondistended Extremities: No edema Neuro: Alert and oriented Assessment and Plan (1) GI bleeding Narrative/Plan: Will proceed with colonoscopy at this time. Current Visit: No Status: Acute Code(s): K92.2 - GASTROINTESTINAL HEMORRHAGE, UNSPECIFIED SNOMED Code(s): 33687344
--- NOTE | 2022-11-16 11:12 | P.PCN ---
Date of Procedure: 11/16/22 Procedure(s) Performed: PREOPERATIVE DIAGNOSIS: Rectal bleeding, history of colon cancer POSTOPERATIVE DIAGNOSIS: Normal exam PROCEDURE: Colonoscopy ANESTHESIA: MAC SURGEON: Augustin Adam M.D. SPECIMENS: None ENDOSCOPIC PROCEDURE: The patient was placed on the endoscopy table in the left decubitus position. The Olympus colonoscope was inserted into the anus and passed under direct visualization to the ileocolonic anastomosis. From that point the scope was slowly withdrawn inspecting all surfaces carefully. There were no neoplastic inflammatory or polypoid lesions throughout the transverse, descending, sigmoid and rectum. There was no visible diverticulosis noted. Digital rectal examination was normal. The patient was taken to the recovery room in stable condition per anesthesia guidelines. RECOMMENDATIONS: Resume diet. Repeat colonoscopy 2-3 years.
[2022-11-16 11:18] VITALS: RESP 18
[2022-11-16] MEDS ORDERED: LACTATED RINGERS 1,000 ML IV SCH (11:19)
[2022-11-16] MEDS ORDERED: LIDOCAINE 1% (10MG/ML) FOR IV START INTRADERMA PRN (11:19)
[2022-11-16 11:48] VITALS: BP 123/66; PULSE 65
== END 2022-11-16 12:06 | disposition home or self-care (01) ==
LOC: ORWHC2ENDO 09:46
PROVIDERS: ATTEND Surgery
DX: K63.5 Polyp of colon (principal); Z85.038 Personal history of other malignant neoplasm of large intestine; Z88.1 Allergy status to other antibiotic agents; Z88.8 Allergy status to other drugs, medicaments and biological substances; Z91.09 Other allergy status, other than to drugs and biological substances; Z79.899 Other long term (current) drug therapy
CPT/HCPCS: 45378; J2405; J2704

== ENCOUNTER → 2022-11-23 | Outpatient (CLI) | payer OTHER ==
--- NOTE | 2022-11-23 13:52 | XR ---
EXAMINATION TYPE: XR lumbar spine 2 or 3V DATE OF EXAM: 11/23/2022 CLINICAL HISTORY: M 54.50 TECHNIQUE: Three views of the lumbar spine are submitted. COMPARISON: MR lumbar spine 05/07/2013 FINDINGS: There are 5 lumbar type vertebral bodies identified. The lumbar spine shows satisfactory alignment w ithout evidence of acute fracture or dislocation. Vertebral body heights are within normal limits. Multilevel facet arthropathy. Multilevel degenerative disc disease with disc space narrowing, endplat e sclerosis, and anterior osteophytosis. This is most pronounced at T11-T12 and T12-L1. The overlyin g soft tissue appears unremarkable. Cholecystectomy clips in the right upper quadrant. Atheroscleroti c calcification of the aorta. IMPRESSION: 1. No acute fracture or dislocation is seen in the lumbar spine. 2. Mild multilevel degenerative disease and facet arthropathy.
== END | disposition home or self-care (01) ==
LOC: RADXRMAIN 12:50
PROVIDERS: ATTEND Family Medicine
DX: M47.816 Spondylosis without myelopathy or radiculopathy, lumbar region (principal)
CPT/HCPCS: 72100

== ENCOUNTER 2022-11-29 14:01 | Emergency (ER) | payer OTHER ==
[2022-11-29] MEDS ORDERED: SULFAMETHOX-TMP 800-160MG 1 EACH TAB PO STA (16:40)
--- NOTE | 2022-11-29 17:09 | ED ---
General Adult HPI - General Chief complaint: Headache Stated complaint: facial swelling Time Seen by Provider: 11/29/22 16:07 Source: patient Mode of arrival: ambulatory Limitations: no limitations - History of Present Illness Initial comments: This patient is a 56-year-old woman who presents to have evaluation for tender swollen areas to the scalp and neck bilaterally. Patient noticed some developing on Tuesday evening. She states that this morning she had noticed that they had spread from initially the left parietal area to them the bilateral sca lp and now to the upper posterior neck and posterior auricular area. She had gone to an urgent care and then then forwarded here. The patient states she had a fever at home yesterday. She had not noted fever today. She denies any open sore. She did not have any injury to the skin, scratch, or puncture wound prior to onset of symptoms. Patient denies noticing any axillary or groin nodes. No ear pain, sore throat, congestion. No cough. No change in urination or bowel movements. No rash noted Onset/Timin -: days(s) Location: head, neck Quality: aching Consistency: constant Improves with: none Worsens with: other (Patient) Associated Symptoms: fever/chills Treatments Prior to Arrival: none - Related Data Home Medications Medication Instructions Recorded Confirmed lamoTRIgine [LaMICtal] 200 mg PO BID 09/26/18 11/16/22 Topiramate 75 mg PO BID 12/19/19 11/16/22 Sertraline [Zoloft] 100 mg PO DAILY 03/22/22 11/16/22 HYDROcodone/APAP 7.5-325MG [[place] 1 tab PO BID PRN 07/29/22 11/16/22 7.5-325] Previous Rx's Medication Instructions Recorded Cyclobenzaprine [Flexeril] 10 mg PO TID PRN #15 tab 11/05/22 Allergies Allergy/AdvReac Type Severity Reaction Status Date / Time cephalexin [From Keflex] Allergy Rash/Hives Verified 11/29/22 14:54 codeine Allergy Rash/Hives Verified 11/29/22 14:54 erythromycin base Allergy Rash/Hives Verified 11/29/22 14:54 gadobutrol [From Gadavist] Allergy Anaphylaxis Verified 11/29/22 14:54 Gadolinium-Containing Allergy Anaphylaxis Verified 11/29/22 14:54 Contrast Medi iodine Allergy Anaphylaxis Verified 11/29/22 14:54 ketorolac tromethamine Allergy Rash/Hives/ Verified 11/29/22 14:54 [From Toradol] hallucinati ons Penicillins Allergy Anaphylaxis Verified 11/29/22 14:54 vancomycin Allergy Anaphylaxis Verified 11/29/22 14:54 azithromycin AdvReac red face Verified 11/29/22 14:54 diphenhydramine AdvReac Confusion Verified 11/29/22 14:54 [From Benadryl] lorazepam [From Ativan] AdvReac Hallucinati Verified 11/29/22 14:54 ons Review of Systems ROS Statement: Those systems with pertinent positive or pertinent negative responses have been documented in the HPI. ROS Other: All systems not noted in ROS Statement are negative. Constitutional: Reports: as per HPI, fever. 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 BLOOD TRANSFUSIONS FOR LOW HGB. uterine and colon ca History of Any Multi-Drug Resistant Organisms: MRSA Date of last positivie culture/infection: 08/10/19 MDRO Source:: URINE Past Surgical History: Appendectomy, Bowel Resection, Cholecystectomy, Ear Surgery, Hysterectomy, Orthopedic Surgery Additional Past Surgical History / Comment(s): frantz knee arthroscopy, hiatal hernia surgery, rt ear surgery to remove middle ear, lymph node biopsy right arm pit. loop recorder Past Anesthesia/Blood Transfusion Reactions: Postoperative Nausea & Vomiting (PONV) Additional Past Anesthesia/Blood Transfusion Reaction / Comment(s): Pt has received blood in past without reaction. Type of Cardiac Device: Loop Device Placement Date:: 2016 states need to be removed everything fine now per patien Past Psychological History: Anxiety, Panic Disorder Smoking Status: Never smoker Past Alcohol Use History: None Reported Past Drug Use History: None Reported - Past Family History Mother Family Medical History: Coronary Artery Disease (CAD), Diabetes Mellitus Additional Family Medical History / Comment(s): . Father Family Medical History: No Reported History Additional Family Medical History / Comment(s): Father is healthy General Exam Limitations: no limitations General appearance: alert, in no apparent distress Head exam: Present: atraumatic, normocephalic Eye exam: Present: normal appearance. Absent: scleral icterus, conjunctival injection ENT exam: Present: normal oropharynx Neck exam: Present: normal inspection, full ROM, lymphadenopathy. Absent: meningismus Respiratory exam: Present: normal lung sounds bilaterally. Absent: respiratory distress, wheezes, rales, rhonchi, stridor Cardiovascular Exam: Present: regular rate, normal rhythm, normal heart sounds. Absent: systolic murmur, diastolic murmur, rubs, gallop GI/Abdominal exam: Present: soft. Absent: distended, tenderness, guarding Extremities exam: Present: normal inspection, normal capillary refill. Absent: pedal edema, calf tenderness Back exam: Present: normal inspection. Absent: CVA tenderness (R), CVA tenderness (L) Neurological exam: Present: alert Skin exam: Present: warm, dry, intact, normal color. Absent: rash Course Vital Signs 11/29/22 11/29/22 11/29/22 14:55 15:37 18:43 Temperature 98.3 F 99.1 F 98.3 F Pulse Rate 84 73 78 Respiratory 16 20 18 Rate Blood Pressure 119/67 133/73 116/75 O2 Sat by Pulse 100 99 97 Oximetry Medical Decision Making - Medical Decision Making Was pt. sent in by a medical professional or institution (, PA, ELECTRIC ARC FURNACE OPERATOR, urgent care, hospital, or fpc...) When possible be specific @ -[No] Did you speak to anyone other than the patient for history (EMS, parent, family, police, friend...)? What history was obtained from this source @ -[No] Did you review nursing and triage notes (agree or disagree)? Why? @ -[I reviewed and agree with nursing and triage notes] Were old charts reviewed (outside hosp., previous admission, EMS record, old EKG, old radiological studies, urgent care reports/EKG's, fpc records)? Report findings @ -[No old charts were reviewed] Differential Diagnosis (chest pain, altered mental status, abdominal pain women, abdominal pain men, vaginal bleeding, weakness, fever, dyspnea, syncope, headache, dizziness, GI bleed, back pain, seizure, CVA, palpatations, mental health, musculoskeletal)? @ -[Differential diagnosis for this patient's adenitis includes, infectious sources, malignancy, rheumatic conditions, amongst other conditions EKG interpreted by me (3pts min.). @ -[ X-rays interpreted by me (1pt min.). @ -[None done] CT interpreted by me (1pt min.). @ -[None done] U/S interpreted by me (1pt. min.). @ -[None done] What testing was considered but not performed or refused? (CT, X-rays, U/S, labs)? Why? @ -[None] What meds were considered but not given or refused? Why? @ -[None] Did you discuss the management of the patient with other professionals (professionals i.e. , PA, ELECTRIC AR[employer] FURNACE OPERATOR, lab, RT, psych nurse, social media specialist, tinsel machine operator, teacher, natural resource officer, case coordinator)? Give summary @ -[No] Was smoking cessation discussed for >3mins.? @ -[No] Was critical care preformed (if so, how long)? @ -[No] Were there social determinants of health that impacted care today? How? (Homelessness, low income, unemployed, alcoholism, drug addiction, transportation, low edu. Level, literacy, decrease access to med. care, correction, rehab)? @ -[No] Was there de-escalation of care discussed even if they declined (Discuss DNR or withdrawal of care, Hospice)? DNR status @ -[No] What co-morbidities impacted this encounter? (DM, HTN, Smoking, COPD, CAD, Cancer, CVA, ARF, Chemo, Hep., AIDS, mental health diagnosis, sleep apnea, morbid obesity)? @ -[None] Was patient admitted / discharged? Hospital course, mention meds given and rou te, prescriptions, significant lab abnormalities, going to OR and other pertinent info. @ -[This patient presents with rapid onset of bilateral adenitis of the neck. Given the rapidity of onset strongly suspect there is infectious etiology. Most probably related to viral infection, but there are other considerations as well. The patient does have many antibiotic ALLERGIES but will agree to try Bactrim. We discussed the appropriate further care and follow-up, as well as re turn parameters. Emphasized need for close follow-up and need to return if there is further progression. Undiagnosed new problem with uncertain prognosis? @ -[No] Drug Therapy requiring intensive monitoring for toxicity (Heparin, Nitro, Insuli n, Cardizem)? @ -[No] Were any procedures done? @ -[No] Diagnosis/symptom? @ -[Acute cervical adenitis Acute, or Chronic, or Acute on Chronic? @ -[Acute Uncomplicated (without systemic symptoms) or Complicated (systemic symptoms)? @ -[Uncomplicated Side effects of treatment? @ -[No] Exacerbation, Progression, or Severe Exacerbation? @ -[No] Poses a threat to life or bodily function? How? (Chest pain, [place], MT, pneumonia, PE, COPD, DKA, ARF, appy, cholecystitis, CVA, Diverticulitis, Homicidal, Suicidal, threat to staff... and all critical care pts) @ -[Unlikely, though there is small risk of worsening infection or malignant underlying etiology - Lab Data Result diagrams: 11/29/22 17:05 11/29/22 17:05 Lab Results 11/29/22 11/29/22 Range/Units 17:05 17:05 WBC 10.5 (3.8-10.6) k/uL RBC 4.20 (3.80-5.40) m/uL Hgb 12.6 (11.4-16.0) gm/dL Hct 38.1 (34.0-46.0) % MCV 90.7 (80.0-100.0) fL MCH 29.9 (25.0-35.0) pg MCHC 32.9 (31.0-37.0) g/dL RDW 14.3 (11.5-15.5) % Plt Count 220 (150-450) k/uL MPV 8.0 Neutrophils % 79 % Lymphocytes % 14 % Monocytes % 4 % Eosinophils % 1 % Basophils % 0 % Neutrophils # 8.3 H (1.3-7.7) k/uL Lymphocytes # 1.5 (1.0-4.8) k/uL Monocytes # 0.4 (0-1.0) k/uL Eosinophils # 0.1 (0-0.7) k/uL Basophils # 0.0 (0-0.2) k/uL Sodium 140 (137-145) mmol/L Potassium 4.8 (3.5-5.1) mmol/L Chloride 106 (98-107) mmol/L Carbon Dioxide 25 (22-30) mmol/L Anion Gap 9 mmol/L BUN 15 (7-17) mg/dL Creatinine 0.78 (0.52-1.04) mg/dL Est GFR (CKD-EPI)AfAm >90 (>60 ml/min/1.73 sqM) Est GFR (CKD-EPI)NonAf 86 (>60 ml/min/1.73 sqM) Glucose 109 H (74-99) mg/dL Calcium 9.3 (8.4-10.2) mg/dL Total Bilirubin 0.5 (0.2-1.3) mg/dL AST 44 H (14-36) U/L ALT 44 H (4-34) U/L Alkaline Phosphatase 277 H (38-126) U/L Total Protein 7.5 (6.3-8.2) g/dL Albumin 3.9 (3.5-5.0) g/dL Disposition Clinical Impression: Acute cervical adenitis Disposition: HOME SELF-CARE Condition: Fair Instructions (If sedation given, give patient instructions): Adenitis (ED) Additional Instructions: Call the infectious disease clinic to schedule an appointment, [phone]. Return to the emergency department if there is any problem in obtaining follow- up. Your culture results will be available in 24-48 hours. Is patient prescribed a controlled substance at d/c from ED?: No Referrals: Scott Medrano MD [Primary Care Provider] - 1-2 days
[2022-11-29 17:19] LABS: Basophils % (A) 0 %; Eosinophils # (A) 0.1 k/uL (0-0.7); Eosinophils % (A) 1 %; HCT 38.1 % (34.0-46.0); HGB 12.6 gm/dL (11.4-16.0); Lymphocytes # (A) 1.5 k/uL (1.0-4.8); Lymphocytes % (A) 14 %; MCH 29.9 pg (25.0-35.0); MCHC 32.9 g/dL (31.0-37.0); MCV 90.7 fL (80.0-100.0); Monocytes # (A) 0.4 k/uL (0-1.0); Monocytes % (A) 4 %; Neutrophils # (A) 8.3 k/uL (1.3-7.7); Neutrophils % (A) 79 %; Platelet Count 220 k/uL (150-450); RDW 14.3 % (11.5-15.5); WBC 10.5 k/uL (3.8-10.6)
[2022-11-29 17:30] LABS: ALT 44 U/L (4-34); AST 44 U/L (14-36); African American GFR (CKD) >90 (>60 ml/min/1.73 sqM); Albumin 3.9 g/dL (3.5-5.0); Alkaline Phosphatase 277 U/L (38-126); Anion Gap 9 mmol/L; Blood Urea Nitrogen 15 mg/dL (7-17); Calcium 9.3 mg/dL (8.4-10.2); Carbon Dioxide 25 mmol/L (22-30); Chloride 106 mmol/L (98-107); Glucose 109 mg/dL (74-99); Non-African American GFR(CKD) 86 (>60 ml/min/1.73 sqM); Potassium 4.8 mmol/L (3.5-5.1); Sodium 140 mmol/L (137-145); Total Bilirubin 0.5 mg/dL (0.2-1.3); Total Protein 7.5 g/dL (6.3-8.2)
[2022-11-29 18:44] VITALS: BP 116/75; PULSE 78; RESP 18; TEMP 98.3
== END 2022-11-29 19:24 | disposition home or self-care (01) ==
LOC: EC 14:01
DX: L04.0 Acute lymphadenitis of face, head and neck (principal); F41.9 Anxiety disorder, unspecified; Z79.899 Other long term (current) drug therapy; Z88.5 Allergy status to narcotic agent; Z88.1 Allergy status to other antibiotic agents; Z91.041 Radiographic dye allergy status; Z88.0 Allergy status to penicillin; Z88.6 Allergy status to analgesic agent; Z88.8 Allergy status to other drugs, medicaments and biological substances; Z90.49 Acquired absence of other specified parts of digestive tract
CPT/HCPCS: 36415; 80053; 85025; 87040; 99284

== ENCOUNTER → 2022-12-08 | Outpatient (CLI) | payer OTHER ==
--- NOTE | 2022-12-08 20:32 | CT ---
EXAMINATION TYPE: CT ChestAbdPelvis wo con CT DLP: 878.3 mGycm, Automated exposure control for dose reduction was used. DATE OF EXAM: 12/08/2022 7:19 PM COMPARISON: 03/22/2022 CLINICAL INDICATION:Female, 56 years old with history of C18.2 COLON CANCER; PHH, abdominal pain, enl arged lymph nodes Technique: Multiple axial images of the chest, abdomen, and pelvis were obtained. Two-dimensional cor onal and sagittal reconstructions were obtained. Contrast used: None Oral contrast used: without Oral Contrast Findings: CHEST: LUNGS/ PLEURA: Right lower lobe lateral pulmonary nodule measuring 3 mm series 201 image 33. Stable b ack to at least 2013. No focal consolidation, pneumothorax or pleural effusion. AIRWAY: Patent and unremarkable. HEART: Size within normal limits. MEDIASTINUM: No gross evidence of adenopathy. VASCULATURE: No aortic aneurysm. MUSCULOSKELETAL: No acute osseous abnormalities. SOFT TISSUES/LYMPH NODES: Loop recorder left breast. LOWER NECK: No significant findings. ABDOMEN: ABDOMEN LIVER: Unremarkable GALLBLADDER AND BILE DUCTS: Cholecystectomy clips are present. PANCREAS: Mild fatty infiltration the pancreatic parenchyma most proximal in the pancreatic head and neck SPLEEN: Unremarkable. ADRENAL GLANDS: Unremarkable. KIDNEYS AND URETERS: No evidence of hydronephrosis or renal calculus. The ureters are unremarkable. PELVIS BLADDER: Unremarkable REPRODUCTIVE: Unremarkable. ABDOMEN & PELVIS STOMACH AND BOWEL: No evidence of bowel obstruction. Postsurgical changes to the colon. No abnormal s oft tissue visualized. Postsurgical changes gastroesophageal junction. PERITONEUM: No evidence of pneumoperitoneum or free fluid. VASCULATURE: No evidence of aortic aneurysm. MUSCULOSKELETAL: No acute osseous [id number] LYMPH NODES: No gross evidence for lymphadenopathy. SOFT TISSUE/ABDOMINAL WALL: Unremarkable IMPRESSION: 1. No evidence for metastatic disease. 2. Post surgical changes to the colon. 3. Right lower lobe 3 mm pulmonary nodule is stable to at least 2014.
== END | disposition home or self-care (01) ==
LOC: RADCTMAIN 16:26
PROVIDERS: ATTEND Internal Medicine Hematology & Oncology
DX: C18.2 Malignant neoplasm of ascending colon (principal); R59.9 Enlarged lymph nodes, unspecified; R91.1 Solitary pulmonary nodule
CPT/HCPCS: 71250; 74176

== ENCOUNTER → 2023-03-18 | Outpatient (CLI) | payer OTHER ==
[2023-03-18 18:39] LABS: Basophils # (A) 0.03 X 10*3/uL (0.00-0.10); Basophils % (A) 0.4 %; Eosinophils # (A) 0.12 X 10*3/uL (0.04-0.35); Eosinophils % (A) 1.5 %; HCT 40.3 % (37.2-46.3); HGB 12.6 g/dL (12.0-15.0); Lymphocytes # (A) 1.39 X 10*3/uL (0.90-5.00); Lymphocytes % (A) 17.6 %; MCH 28.9 pg (27.0-32.0); MCHC 31.3 g/dL (32.0-37.0); MCV 92.4 FL (80.0-97.0); Mean Platelet Volume 10.1 FL (9.5-12.2); Monocytes % (A) 5.1 %; NRBC Per 100 WBC 0 X 10*3/uL (0.00-0.01); Neutrophils # (A) 5.93 X 10*3/uL (1.80-7.70); Neutrophils % (A) 75.1 %; Platelet Count 291 X 10*3/uL (140-440); RBC 4.36 X 10*6/uL (4.10-5.20); RDW 14.3 % (11.5-14.5); WBC 7.89 X 10*3/uL (4.50-10.00)
[2023-03-18 19:10] LABS: ALT 16 U/L (8-44); AST 22 U/L (13-35); Albumin 4.4 g/dL (3.8-4.9); Albumin/Globulin Ratio 1.63 Ratio (1.60-3.17); Alkaline Phosphatase 163 U/L (41-126); BUN/Creat Ratio 25.88 Ratio (12.00-20.00); Blood Urea Nitrogen 20.7 mg/dL (9.0-27.0); Carbon Dioxide 24.2 mmol/L (21.6-31.8); Chloride 107 mmol/L (96-109); Globulin 2.7 g/dL (1.6-3.3); Glucose 90 mg/dL (70-110); Potassium 4.6 mmol/L (3.5-5.5); Sodium 142 mmol/L (135-145); Total Bilirubin 0.3 mg/dL (0.3-1.2); Total Protein 7.1 g/dL (6.2-8.2)
== END | disposition home or self-care (01) ==
LOC: LABWHC1 12:10
PROVIDERS: ATTEND Family Medicine
DX: F44.5 Conversion disorder with seizures or convulsions (principal); G43.519 Persistent migraine aura without cerebral infarction, intractable, without status migrainosus; E66.01 Morbid (severe) obesity due to excess calories; R53.83 Other fatigue; Z68.36 Body mass index [BMI] 36.0-36.9, adult
CPT/HCPCS: 36415; 80053; 84443; 85025

== ENCOUNTER → 2023-04-14 | Outpatient (CLI) | payer OTHER ==
--- NOTE | 2023-04-14 15:02 | XR ---
EXAMINATION TYPE: XR cervical spine comp DATE OF EXAM: 04/14/2023 COMPARISON: None HISTORY: Fall, pain TECHNIQUE: 5 view cervical spine FINDINGS: No acute fractures are evident. Neural foramen are patent. Disc heights are preserved. Vert ebral body heights are preserved. There are electronic wires present within the anterolateral left ne ck. Odontoid is some limitation with overlying occiput. IMPRESSION: 1. No acute osseous abnormality cervical spine
== END | disposition home or self-care (01) ==
LOC: RADXRMAIN 14:38
PROVIDERS: ATTEND Family Medicine
DX: G43.519 Persistent migraine aura without cerebral infarction, intractable, without status migrainosus (principal); M54.2 Cervicalgia
CPT/HCPCS: 72050

== ENCOUNTER 2023-05-05 21:20 | Emergency (ER) | payer OTHER ==
--- NOTE | 2023-05-05 22:25 | ED ---
General Adult HPI - General Chief complaint: Altered Mental Status Stated complaint: Seizure Time Seen by Provider: 05/05/23 22:01 Source: patient Mode of arrival: wheelchair Limitations: no limitations - History of Present Illness Initial comments: 57-year-old female with history of migraines and "stress seizures" presenting with chief complaint of headache. at bedside reports that the patient has had a migraine for several days. Patient has had recurrent migraines since a head injury back in November. They have tried numerous [id number] medications which have not alleviated the migraine. They state that they were seen at [facility] and given a migraine cocktail which still did not relieve the headache. Patient has been having "stress seizures" due to the pain, this involves diffuse tremoring, however the patient can still respond and interact appropriately. reports that she has had some increased confusion. 2 days ago the patient fell from standing, is unsure if she lost consciousness or not. Patient reports that she is having difficulty catching her breath. She previously followed with neurologist Dr. David , she is now changing offices. - Related Data Home Medications Medication Instructions Recorded Confirmed lamoTRIgine [LaMICtal] 200 mg PO BID 09/26/18 11/16/22 Topiramate 75 mg PO BID 12/19/19 11/16/22 Sertraline [Zoloft] 100 mg PO DAILY 03/22/22 11/16/22 HYDROcodone/APAP 7.5-325MG [Bartlett 1 tab PO BID PRN 07/29/22 11/16/22 7.5-325] Previous Rx's Medication Instructions Recorded Cyclobenzaprine [Flexeril] 10 mg PO TID PRN #15 tab 11/05/22 Butalb/APAP/Caff 50-325-40Mg 1 tab PO Q4H PRN #18 tablet 05/06/23 [Fioricet 50-325-40] Sulfamethox-Tmp 800-160Mg [Bactrim 1 tab PO Q12HR 7 Days #14 tab 05/06/23 DS 800-160 mg] Allergies Allergy/AdvReac Type Severity Reaction Status Date / Time cephalexin [From Keflex] Allergy Rash/Hives Verified 04/13/23 16:01 codeine Allergy Rash/Hives Verified 04/13/23 16:01 erythromycin base Allergy Rash/Hives Verified 04/13/23 16:01 gadobutrol [From Gadavist] Allergy Anaphylaxis Verified 04/13/23 16:01 Gadolinium-Containing Allergy Anaphylaxis Verified 04/13/23 16:01 Contrast Medi iodine Allergy Anaphylaxis Verified 04/13/23 16:01 ketorolac tromethamine Allergy Rash/Hives/ Verified 04/13/23 16:01 [From Toradol] hallucinati ons Penicillins Allergy Anaphylaxis Verified 04/13/23 16:01 vancomycin Allergy Anaphylaxis Verified 04/13/23 16:01 azithromycin AdvReac red face Verified 04/13/23 16:01 diphenhydramine AdvReac Confusion Verified 04/13/23 16:01 [From Benadryl] lorazepam [From Ativan] AdvReac Hallucinati Verified 04/13/23 16:01 ons Review of Systems ROS Statement: Those systems with pertinent positive or pertinent negative responses have been documented in the HPI. ROS Other: All systems not noted in ROS Statement are negative. 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 BLOOD TRANSFUSIONS FOR LOW HGB. uterine and colon ca History of Any Multi-Drug Resistant Organisms: MRSA Date of last positivie culture/infection: 08/10/19 MDRO Source:: URINE Past Surgical History: Appendectomy, Bowel Resection, Cholecystectomy, Ear Surg ana luisa, Hysterectomy, Orthopedic Surgery Additional Past Surgical History / Comment(s): frantz knee arthroscopy, hiatal hernia surgery, rt ear surgery to remove middle ear, lymph node biopsy right armpit. loop recorder Past Anesthesia/Blood Transfusion Reactions: Postoperative Nausea & Vomiting (PONV) Additional Past Anesthesia/Blood Transfusion Reaction / Comment(s): Pt has received blood in past without reaction. Type of Cardiac Device: Loop Device Placement Date:: 2016 states need to be removed everything fine now per patien Past Psychological History: Anxiety, Panic Disorder Smoking Status: Never smoker Past Alcohol Use History: None Reported Past Drug Use History: None Reported - Past Family History Mother Family Medical History: Coronary Artery Disease (CAD), Diabetes Mellitus Additional Family Medical History / Comment(s): . Father Family Medical History: No Reported History Additional Family Medical History / Comment(s): Father is healthy General Exam Limitations: no limitations General appearance: alert, anxious (Patient has diffuse tremors, however she is able to respond appropriately and follow all commands) Head exam: Present: atraumatic, normocephalic Eye exam: Present: normal appearance, PERRL, EOMI Pupils: Present: normal accommodation Neck exam: Present: normal inspection Respiratory exam: Present: normal lung sounds bilaterally. Absent: respiratory distress, wheezes, rales, rhonchi, stridor Cardiovascular Exam: Present: regular rate, normal rhythm, normal heart sounds. Absent: systolic murmur, diastolic murmur, rubs, gallop, clicks Extremities exam: Present: normal inspection, full ROM Neurological exam: Present: alert, oriented X3 Expanded Patient oriented to: Present: person, place, time Speech: Present: fluid speech Cranial nerves: EOM's Intact: Normal Motor strength exam: RUE: 5, LUE: 5, RLE: 5, LLE: 5 Eye Response: (4) open spontaneously Motor Response: (6) obeys commands Verbal Response: (5) oriented Psychiatric exam: Present: normal affect, normal mood Skin exam: Present: warm, dry Course Vital Signs 05/05/23 05/05/23 05/06/23 21:25 23:00 00:00 Temperature 98.4 F Pulse Rate 101 H 86 71 Respiratory 18 21 14 Rate Blood Pressure 163/90 172/89 158/101 O2 Sat by Pulse 98 98 96 Oximetry 05/06/23 05/06/23 01:00 02:00 Temperature Pulse Rate 69 68 Respiratory 17 24 Rate Blood Pressure 167/95 167/102 O2 Sat by Pulse 98 98 Oximetry EKG Findings - EKG Comments: EKG Findings:: Sinus rhythm ventricular rate 85. WI interval 174. QRS 169. QT 432. QTc 475. Left axis deviation. Right bundle branch block. New T wave inversions in V3 Medical Decision Making - Medical Decision Making Was pt. sent in by a medical professional or institution (, PA, TELEGRAPH OFFICE TELEPHONE CLERK, urgent care, hospital, or [facility]...) When possible be specific @ -[No] Did you speak to anyone other than the patient for history (EMS, parent, family, police, friend...)? What history was obtained from this source @ -[No] Did you review nursing and triage notes (agree or disagree)? Why? @ -[I reviewed and agree with nursing and triage notes] Were old charts reviewed (outside hosp., previous admission, EMS record, old EKG, old radiological studies, urgent care reports/EKG's, m[facility] records)? Report findings @ -Previous ER visits are reviewed Differential Diagnosis (chest pain, altered mental status, abdominal pain women, abdominal pain men, vaginal bleeding, weakness, fever, dyspnea, syncope, headache, dizziness, GI bleed, back pain, seizure, CVA, palpatations, mental health, musculoskeletal)? @ -[facility] Differential Headache: Migraine, tension, cluster, carbon monoxide, central venous thrombosis, pension karma temporal arteritis, acute closure glaucoma, intercranial hemorrhage, mas toiditis, sinusitis, head injury this is not meant to be an all-inclusive list. EKG interpreted by me (3pts min.). @ -[As above] X-rays interpreted by me (1pt min.). @ -Chest x-ray shows no acute process CT interpreted by me (1pt min.). @ -CT shows no acute intracranial process U/S interpreted by me (1pt. min.). @ -[None done] What testing was considered but not performed or refused? (CT, X-rays, U/S, labs)? Why? @ -[None] What meds were considered but not given or refused? Why? @ -[None] Did you discuss the management of the patient with other professionals (professionals i.e. , PA, TELEGRAPH OFFICE TELEPHONE CLERK, lab, RT, psych nurse, medical social consultant, credit authorizer, teacher, botanical technical officer, pillowcase cutter)? Give summary @ -[No] Was smoking cessation discussed for >3mins.? @ -[No] Was critical care preformed (if so, how long)? @ -[No] Were there social determinants of health that impacted care today? How? (Ho melessness, low income, unemployed, alcoholism, drug addiction, transportation, low edu. Level, literacy, decrease access to med. care, care home, rehab)? @ -[No] Was there de-escalation of care discussed even if they declined (Discuss DNR or withdrawal of care, Hospice)? DNR status @ -[No] What co-morbidities impacted this encounter? (DM, HTN, Smoking, COPD, CAD, Cancer, CVA, ARF, Chemo, Hep., AIDS, mental health diagnosis, sleep apnea, morbid obesity)? @ -[None] Was patient admitted / discharged? Hospital course, mention meds given and route, prescriptions, significant lab abnormalities, going to OR and other pertinent info. @ -57-year-old female with history of seizures and headaches presenting with chief complaint of headache. States that this headache has been ongoing for several days. She has had recurrent headaches since a head injury back in November. She is currently in the process of switching neurologist. History and physical exam are conducted. Patient is tremoring but able to follow all commands and respond appropriately upon arrival. She is given 1 mg Ativan and shows improvement. CT brain and chest x-ray showed no acute process. CBC and CMP require no further action. Negative troponin. EKG shows no acute changes from previous EKG. Urine is positive for UTI with large leukocytes, patient will be treated with Bactrim. Toxicology positive for opiates and be nzodiazepines. Patient is given Dilaudid for pain. I explained to the patient that she will need to follow-up with her neurologist and PCP for this chronic issue. Discharged home. Follow-up with PCP. Report back to ER with any new or worsening symptoms. Discussed return parameters and answered all questions. As for text I discussed this case in detail with my attending Dr. Hernandez. Undiagnosed new problem with uncertain prognosis? @ -[No] Drug Therapy requiring intensive monitoring for toxicity (Heparin, Nitro, Insulin, Cardizem)? @ -[No] Were any procedures done? @ -[No] Diagnosis/symptom? @ -Headache, UTI Acute, or Chronic, or Acute on Chronic? @ -Acute Uncomplicated (without systemic symptoms) or Complicated (systemic symptoms)? @ -Uncomplicated Side effects of treatment? @ -[No] Exacerbation, Progression, or Severe Exacerbation? @ -[No] Poses a threat to life or bodily function? How? (Chest pain, [place], [place], pneumonia, PE, COPD, DKA, ARF, appy, cholecystitis, CVA, Diverticulitis, Homicidal, Suicidal, threat to staff... and all critical care pts) @ -[No] - Lab Data Result diagrams: 05/05/23 22:35 05/05/23 22:35 Lab Results 05/05/23 05/05/23 05/05/23 Range/Units 22:28 22:35 22:35 WBC 10.1 (3.8-10.6) k/uL RBC 4.67 (3.80-5.40) m/uL Hgb 14.0 (11.4-16.0) gm/dL Hct 42.2 (34.0-46.0) % MCV 90.4 (80.0-100.0) fL MCH 29.9 (25.0-35.0) pg MCHC 33.1 (31.0-37.0) g/dL RDW 13.8 (11.5-15.5) % Plt Count 277 (150-450) k/uL MPV 7.8 Neutrophils % 79 % Lymphocytes % 15 % Monocytes % 4 % Eosinophils % 1 % Basophils % 0 % Neutrophils # 8.0 H (1.3-7.7) k/uL Lymphocytes # 1.6 (1.0-4.8) k/uL Monocytes # 0.4 (0-1.0) k/uL Eosinophils # 0.1 (0-0.7) k/uL Basophils # 0.0 (0-0.2) k/uL PT 9.9 L (10.0-12.5) sec INR 0.9 (<1.2) APTT 24.3 (22.0-30.0) sec Sodium (137-145) mmol/L Potassium (3.5-5.1) mmol/L Chloride (98-107) mmol/L Carbon Dioxide (22-30) mmol/L Anion Gap mmol/L BUN (7-17) mg/dL Creatinine (0.52-1.04) mg/dL Est GFR (CKD-EPI)AfAm (>60 ml/min/1.73 sqM) Est GFR (CKD-EPI)NonAf (>60 ml/min/1.73 sqM) Glucose (74-99) mg/dL POC Glucose (mg/dL) 106 (70-110) mg/dL POC Glu Shim Plug Cutter ID Kam, [place] Calcium (8.4-10.2) mg/dL Total Bilirubin (0.2-1.3) mg/dL AST (14-36) U/L ALT (4-34) U/L Alkaline Phosphatase (38-126) U/L Troponin I (0.000-0.034) ng/mL Total Protein (6.3-8.2) g/dL Albumin (3.5-5.0) g/dL Urine Color Urine Appearance (Clear) Urine pH (5.0-8.0) Ur Specific [place] (1.001-1.035) Urine Protein (Negative) Urine Glucose (UA) (Negative) Urine Ketones (Negative) Urine Blood (Negative) Urine Nitrite (Negative) Urine Bilirubin (Negative) Urine Urobilinogen (<2.0) mg/dL Ur Leukocyte Esterase (Negative) Urine RBC (0-5) /hpf Urine WBC (0-5) /hpf Ur Squamous Epith Cells (0-4) /hpf Amorphous Sediment (None) /hpf Urine Bacteria (None) /hpf Hyaline Casts (0-2) /lpf Urine Mucus (None) /hpf Urine Opiates Screen (NotDetected) Ur Oxycodone Screen (NotDetected) Urine Methadone Screen (NotDetected) Ur Barbiturates Screen (NotDetected) U Tricyclic Antidepress (NotDetected) Ur Phencyclidine Scrn (NotDetected) Ur Amphetamines Screen (NotDetected) U Methamphetamines Scrn (NotDetected) U Benzodiazepines Scrn (NotDetected) Urine Cocaine Screen (NotDetected) U Marijuana (THC) Screen (NotDetected) 05/05/23 05/05/23 05/06/23 Range/Units 22:35 22:35 01:00 WBC (3.8-10.6) k/uL RBC (3.80-5.40) m/uL Hgb (11.4-16.0) gm/dL Hct (34.0-46.0) % MCV (80.0-100.0) fL MCH (25.0-35.0) pg MCHC (31.0-37.0) g/dL RDW (11.5-15.5) % Plt Count (150-450) k/uL MPV Neutrophils % % Lymphocytes % % Monocytes % % Eosinophils % % Basophils % % Neutrophils # (1.3-7.7) k/uL Lymphocytes # (1.0-4.8) k/uL Monocytes # (0-1.0) k/uL Eosinophils # (0-0.7) k/uL Basophils # (0-0.2) k/uL PT (10.0-12.5) sec INR (<1.2) APTT (22.0-30.0) sec Sodium 144 (137-145) mmol/L Potassium 4.1 (3.5-5.1) mmol/L Chloride 112 H (98-107) mmol/L Carbon Dioxide 23 (22-30) mmol/L Anion Gap 9 mmol/L BUN 21 H (7-17) mg/dL Creatinine 0.88 (0.52-1.04) mg/dL Est GFR (CKD-EPI)AfAm 85 (>60 ml/min/1.73 sqM) Est GFR (CKD-EPI)NonAf 74 (>60 ml/min/1.73 sqM) Glucose 112 H (74-99) mg/dL POC Glucose (mg/dL) (70-110) mg/dL POC Glu Shim Plug Cutter ID Calcium 9.4 (8.4-10.2) mg/dL Total Bilirubin 0.4 (0.2-1.3) mg/dL AST 29 (14-36) U/L ALT 24 (4-34) U/L Alkaline Phosphatase 155 H (38-126) U/L Troponin I <0.012 (0.000-0.034) ng/mL Total Protein 7.7 (6.3-8.2) g/dL Albumin 4.4 (3.5-5.0) g/dL Urine Color Light Yellow Urine Appearance Cloudy H (Clear) Urine pH 7.0 (5.0-8.0) Ur Specific [place] 1.022 (1.001-1.035) Urine Protein Negative (Negative) Urine Glucose (UA) Negative (Negative) Urine Ketones Negative (Negative) Urine Blood Negative (Negative) Urine Nitrite Negative (Negative) Urine Bilirubin Negative (Negative) Urine Urobilinogen <2.0 (<2.0) mg/dL Ur Leukocyte Esterase Large H (Negative) Urine RBC 1 (0-5) /hpf Urine WBC 79 H (0-5) /hpf Ur Squamous Epith Cells 1 (0-4) /hpf Amorphous Sediment Rare H (None) /hpf Urine Bacteria Rare H (None) /hpf Hyaline Casts 1 (0-2) /lpf Urine Mucus Occasional H (None) /hpf Urine Opiates Screen Detected H (NotDetected) Ur Oxycodone Screen Not Detected (NotDetected) Urine Methadone Screen Not Detected (NotDetected) Ur Barbiturates Screen Not Detected (NotDetected) U Tricyclic Antidepress Not Detected (NotDetected) Ur Phencyclidine Scrn Not Detected (NotDetected) Ur Amphetamines Screen Not Detected (NotDetected) U Methamphetamines Scrn Not Detected (NotDetected) U Benzodiazepines Scrn Detected H (NotDetected) Urine Cocaine Screen Not Detected (NotDetected) U Marijuana (THC) Screen Not Detected (NotDetected) Disposition Clinical Impression: Headache, UTI (urinary tract infection) Disposition: HOME SELF-CARE Condition: Good Instructions (If sedation given, give patient instructions): Urinary Tract Infection in Women (ED), Acute Headache (ED) Additional Instructions: Follow-up with PCP and neurology. Report back to ER with any new or worsening symptoms. Prescriptions: Sulfamethox-Tmp 800-160Mg [Bactrim DS 800-160 mg] 1 tab PO Q12HR 7 Days #14 tab Butalb/APAP/Caff 50-325-40Mg [Fioricet 50-325-40] 1 tab PO Q4H PRN #18 tablet PRN Reason: Pain Is patient prescribed a controlled substance at d/c from ED?: No Referrals: Scott Medrano MD [Primary Care Provider] - 1-2 days Javon Ford MD [STAFF PHYSICIAN] - 1-2 days Time of Disposition: 02:53
[2023-05-05 22:30] LABS: Glucose,Whole Blood 106 mg/dL (70-110)
[2023-05-05 23:23] LABS: Basophils % (A) 0 %; Eosinophils # (A) 0.1 k/uL (0-0.7); Eosinophils % (A) 1 %; HCT 42.2 % (34.0-46.0); Lymphocytes # (A) 1.6 k/uL (1.0-4.8); Lymphocytes % (A) 15 %; MCH 29.9 pg (25.0-35.0); MCHC 33.1 g/dL (31.0-37.0); MCV 90.4 fL (80.0-100.0); Mean Platelet Volume 7.8; Monocytes # (A) 0.4 k/uL (0-1.0); Monocytes % (A) 4 %; Neutrophils % (A) 79 %; Platelet Count 277 k/uL (150-450); RBC 4.67 m/uL (3.80-5.40); RDW 13.8 % (11.5-15.5); WBC 10.1 k/uL (3.8-10.6)
--- NOTE | 2023-05-05 23:32 | XR ---
EXAMINATION TYPE: XR chest 2V DATE OF EXAM: 05/05/2023 COMPARISON: Chest CT December 08, 2022. Chest x-ray May 15, 2022 HISTORY: Altered mental status. Increased weakness TECHNIQUE: Frontal and lateral views of the chest are obtained. FINDINGS: There is no suspicious new focal air space opacity, pleural effusion, or pneumothorax seen . The cardiac silhouette size is stable and within normal limits. Overlying loop recorder redemonst rated. The osseous structures are intact. IMPRESSION: No acute process.
[2023-05-05] MEDS: LORazepam 2 MG/ML INJ IV STA (23:34)
--- NOTE | 2023-05-05 23:36 | CT ---
EXAMINATION TYPE: CT brain wo con DATE OF EXAM: 05/05/2023 HISTORY: Increased weakness and falls. Hx. of epilepsy and seizures. Headache. Altered mental status. CT DLP: 1153.4 mGycm. Automated Exposure Control for Dose Reduction was Utilized. TECHNIQUE: CT scan of the head is performed without contrast. COMPARISON: Prior CT brain November 05, 2022 FINDINGS: There is no acute intracranial hemorrhage or midline shift identified. Ventricles and sul ci within normal limits in size for patient's age. Rivera-white matter differentiation is maintained. Right mastoid surgical change is redemonstrated. Bilateral aphakia redemonstrated. The visualized sin uses are clear. Right-sided nasal septal deviation again seen. IMPRESSION: No acute intracranial hemorrhage or midline shift. No significant change from most recen t prior CT.
[2023-05-05] MEDS: SODIUM CHLORIDE 0.9% 500 ML 500 ML IV ONE (23:37)
[2023-05-05 23:38] LABS: ALT 24 U/L (4-34); AST 29 U/L (14-36); African American GFR (CKD) 85 (>60 ml/min/1.73 sqM); Albumin 4.4 g/dL (3.5-5.0); Alkaline Phosphatase 155 U/L (38-126); Anion Gap 9 mmol/L; Blood Urea Nitrogen 21 mg/dL (7-17); Calcium 9.4 mg/dL (8.4-10.2); Carbon Dioxide 23 mmol/L (22-30); Chloride 112 mmol/L (98-107); Glucose 112 mg/dL (74-99); Non-African American GFR(CKD) 74 (>60 ml/min/1.73 sqM); Potassium 4.1 mmol/L (3.5-5.1); Sodium 144 mmol/L (137-145); Total Bilirubin 0.4 mg/dL (0.2-1.3); Total Protein 7.7 g/dL (6.3-8.2)
[2023-05-06 00:02] LABS: INR 0.9 (<1.2); Partial Thromboplastin Time 24.3 sec (22.0-30.0); Prothrombin Time 9.9 sec (10.0-12.5)
[2023-05-06 02:17] LABS: Amorphous Sediment,Urine Rare /hpf; Appearance,Urine Cloudy (Clear); Bacteria,Urine Rare /hpf; Bilirubin,Urine Negative (Negative); Blood,Urine Negative (Negative); Color,Urine Light Yellow; Glucose,Urine (UA) Negative (Negative); Hyaline Casts,Urine 1 /lpf (0-2); Ketones,Urine Negative (Negative); Leukocyte Esterase,Urine Large (Negative); Mucus,Urine Occasional /hpf; Nitrite,Urine Negative (Negative); Protein,Urine Negative (Negative); RBC,Urine 1 /hpf (0-5); Specific Gravity,Urine 1.022 (1.001-1.035); Squamous Epithelial Cell,Urine 1 /hpf (0-4); Urobilinogen,Urine <2.0 mg/dL (<2.0); WBC,Urine 79 /hpf (0-5)
[2023-05-06 02:27] LABS: Amphetamine Screen,Urine Not Detected (NotDetected); Barbiturate Screen,Urine Not Detected (NotDetected); Benzodiazepines Screen,Urine Detected (NotDetected); Cocaine Screen,Urine Not Detected (NotDetected); Methadone Screen, Urine Not Detected (NotDetected); Opiate Screen,Urine Detected (NotDetected); Oxycodone Screen, Urine Not Detected (NotDetected); Phencyclidine Screen,Urine Not Detected (NotDetected); Tricyclic Antidepressant,Urine Not Detected (NotDetected); Urn Cannabinoid Scrn Not Detected (NotDetected)
[2023-05-06] MEDS: HYDROmorphone 1 MG/ML 1 ML SYRINGE IVP STA (02:49)
[2023-05-06] MEDS: DEXAMETHASONE SOD PHOSPHATE 10 MG/ML 1 ML VIAL IVP STA (03:57)
[2023-05-06 04:18] VITALS: BP 110/86; PULSE 72; RESP 18; TEMP 98
[2023-05-09 15:40] LABS: Lamotrigine (Lamictal) 7.8 ug/mL (2.0-15.0)
[2023-05-09 15:41] LABS: Topiramate 4.3 ug/mL (2.0-20.0)
== END 2023-05-06 04:25 | disposition home or self-care (01) ==
LOC: EC 21:20
DX: R51.9 Headache, unspecified (principal); N39.0 Urinary tract infection, site not specified; I45.10 Unspecified right bundle-branch block; I25.2 Old myocardial infarction; F41.9 Anxiety disorder, unspecified; Z88.5 Allergy status to narcotic agent; Z88.0 Allergy status to penicillin; Z88.6 Allergy status to analgesic agent; Z88.1 Allergy status to other antibiotic agents; Z91.041 Radiographic dye allergy status; Z88.8 Allergy status to other drugs, medicaments and biological substances; Z79.899 Other long term (current) drug therapy
CPT/HCPCS: 99285; 96374; 96375 ×2; 36415; 93005; 80053; 80175; 80201; 84484; 85025; 85610; 85730; 81001; 80306; 71046; 70450; J2060; J1100; J1170

== ENCOUNTER → 2023-06-22 | Outpatient (CLI) | payer OTHER ==
--- NOTE | 2023-06-23 08:04 | MM ---
Reason for Exam: Screening (asymptomatic). Last mammogram was performed 1 year(s) and 6 month(s) ago. Patient History: Menarche at age 11. First Full-Term at age 25. Left ovary removed at age 30. Right ovary removed at age 30. Hysterectomy at age 30. Postmenopausal. Colorectal cancer, age 52. Maternal grandmother had breast cancer, age 72. Paternal aunt had breast cancer, age 45. Risk Values: Babita 5 year model risk: 1.6%. NCI Lifetime model risk: 9.5%. Prior Study Comparison: 10/17/2015 Bilateral Screening Mammogram, [facility]. 02/14/2019 Bilateral Screening Mammogram, [facility]. 12/10/2021 Bilateral MG screening mammo w CAD, [facility]. Tissue Density: The breasts are almost entirely fatty. Findings: Analyzed By CAD. Right breast: There is no suspicious group of microcalcifications or new suspicious mass. Left breast: There is no suspicious group of microcalcifications or new suspicious mass. There is no suspicious group of microcalcifications or new suspicious mass. Overall Assessment: Negative, BI-RAD 1 Management: Screening Mammogram of both breasts in [address] [facility] will attempt to contact patient to return for supplemental views and ultrasound if indicated. Patient should continue monthly self-breast exams. A clinical breast exam by your physician is recommended on an annual basis. This exam should not preclude additional follow-up of suspicious palpable abnormalities. Note on Babita scores and lifetime risk: 1. A Babita score greater than 3% is considered moderate risk. If this is the case, consider specialist referral to assess eligibility for a risk reducing agent. 2. If overall lifetime risk for the development of breast cancer is 20% or higher, the patient may qualify for future screening with alternating mammogram and breast MRI. Electronically signed and approved by: Bernabe Mariano DO
== END | disposition home or self-care (01) ==
LOC: RADMAMWWP 14:27
PROVIDERS: ATTEND Internal Medicine Hematology & Oncology
DX: Z12.31 Encounter for screening mammogram for malignant neoplasm of breast (principal); Z78.0 Asymptomatic menopausal state; Z80.3 Family history of malignant neoplasm of breast; C18.2 Malignant neoplasm of ascending colon; D50.9 Iron deficiency anemia, unspecified; D51.9 Vitamin B12 deficiency anemia, unspecified; Z15.09 Genetic susceptibility to other malignant neoplasm
CPT/HCPCS: 77067

== ENCOUNTER 2023-08-02 13:10 | Inpatient (IN) | payer OTHER ==
[2023-08-02] MEDS: MAG HYDROX/AL HYDROX/SIMETH 30 ML, HYOSCYAMINE ELIXIR 10 ML, LIDOCAINE VISCOUS 2% 10 ML PO STA (13:33)
[2023-08-02 13:40] LABS: Basophils % (A) 0 %; Eosinophils # (A) 0.1 k/uL (0-0.7); Eosinophils % (A) 1 %; HCT 38.8 % (34.0-46.0); HGB 12.3 gm/dL (11.4-16.0); Lymphocytes # (A) 1.9 k/uL (1.0-4.8); Lymphocytes % (A) 21 %; MCHC 31.8 g/dL (31.0-37.0); MCV 91.2 fL (80.0-100.0); Mean Platelet Volume 7.7; Monocytes # (A) 0.3 k/uL (0-1.0); Monocytes % (A) 3 %; Neutrophils # (A) 6.8 k/uL (1.3-7.7); Neutrophils % (A) 74 %; Platelet Count 242 k/uL (150-450); RBC 4.25 m/uL (3.80-5.40); RDW 13.8 % (11.5-15.5); WBC 9.2 k/uL (3.8-10.6)
[2023-08-02 13:53] LABS: INR 0.9 (<1.2); Partial Thromboplastin Time 25.4 sec (22.0-30.0); Prothrombin Time 9.7 sec (10.0-12.5)
[2023-08-02 13:54] LABS: ALT 15 U/L (4-34); AST 25 U/L (14-36); African American GFR (CKD) >90 (>60 ml/min/1.73 sqM); Alkaline Phosphatase 132 U/L (38-126); Anion Gap 6 mmol/L; Blood Urea Nitrogen 22 mg/dL (7-17); Calcium 9.4 mg/dL (8.4-10.2); Carbon Dioxide 25 mmol/L (22-30); Chloride 107 mmol/L (98-107); Glucose 92 mg/dL (74-99); Lipase 56 U/L (23-300); Non-African American GFR(CKD) >90 (>60 ml/min/1.73 sqM); Sodium 138 mmol/L (137-145); Total Bilirubin 0.5 mg/dL (0.2-1.3); Total Protein 7.1 g/dL (6.3-8.2)
--- NOTE | 2023-08-02 13:54 | ED ---
Chest Pain HPI - General Chief Complaint: Chest Pain Stated Complaint: Chest pain Time Seen by Provider: 08/02/23 13:11 Source: patient, EMS, RN notes reviewed Mode of arrival: EMS Limitations: no limitations - History of Present Illness Initial Comments: 57-year-old female presents emergency department chief complaint of chest pain. Patient states that she has centralized chest pain she states that she felt she swallowed something wrong patient feels like she has a chip sideways in her esophagus but states that she did not eat or drink anything that caused this. Patient states that the pain is severe in her central chest. She denies any back pain associated with this.. Patient denies any fevers or chills she states she is very dizzy and has known what she states are fainting spells. She denies any fevers or chills no headache no focal weakness. Patient was given nitro by EMS she refused aspirin as she states her neurologist told her she could not have it because of her seizures. Patient has no history of cardiac disease. - Related Data Home Medications Medication Instructions Recorded Confirmed lamoTRIgine [LaMICtal] 200 mg PO BID 09/26/18 11/16/22 Topiramate 75 mg PO BID 12/19/19 11/16/22 Sertraline [Zoloft] 100 mg PO DAILY 03/22/22 11/16/22 HYDROcodone/APAP 7.5-325MG [Wilkinson 1 tab PO BID PRN 07/29/22 11/16/22 7.5-325] Previous Rx's Medication Instructions Recorded Cyclobenzaprine [Flexeril] 10 mg PO TID PRN #15 tab 11/05/22 Butalb/APAP/Caff 50-325-40Mg 1 tab PO Q4H PRN #18 tablet 05/06/23 [Fioricet 50-325-40] Sulfamethox-Tmp 800-160Mg [Bactrim 1 tab PO Q12HR 7 Days #14 tab 05/06/23 DS 800-160 mg] Allergies Allergy/AdvReac Type Severity Reaction Status Date / Time cephalexin [From Keflex] Allergy Rash/Hives Verified 08/02/23 13:22 codeine Allergy Rash/Hives Verified 08/02/23 13:22 erythromycin base Allergy Rash/Hives Verified 08/02/23 13:22 gadobutrol [From Gadavist] Allergy Anaphylaxis Verified 08/02/23 13:22 Gadolinium-Containing Allergy Anaphylaxis Verified 04/13/23 16:01 Contrast Medi iodine Allergy Anaphylaxis Verified 08/02/23 13:22 ketorolac tromethamine Allergy Rash/Hives/ Verified 08/02/23 13:22 [From Toradol] hallucinati ons Penicillins Allergy Anaphylaxis Verified 08/02/23 13:22 vancomycin Allergy Anaphylaxis Verified 08/02/23 13:22 azithromycin AdvReac red face Verified 08/02/23 13:22 diphenhydramine AdvReac Confusion Verified 08/02/23 13:22 [From Benadryl] lorazepam [From Ativan] AdvReac Hallucinati Verified 04/13/23 16:01 ons Review of Systems ROS Statement: Those systems with pertinent positive or pertinent negative responses have been documented in the HPI. ROS Other: All systems not noted in ROS Statement are negative. 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 BLOOD TRANSFUSIONS FOR LOW HGB. uterine and colon ca History of Any Multi-Drug Resistant Organisms: MRSA Date of last positivie culture/infection: 08/10/19 MDRO Source:: URINE Past Surgical History: Appendectomy, Bowel Resection, Cholecystectomy, Ear Surgery, Hysterectomy, Orthopedic Surgery Additional Past Surgical History / Comment(s): frantz knee arthroscopy, hiatal hernia surgery, rt ear surgery to remove middle ear, lymph node biopsy right armpit. loop recorder Past Anesthesia/Blood Transfusion Reactions: Postoperative Nausea & Vomiting (PONV) Additional Past Anesthesia/Blood Transfusion Reaction / Comment(s): Pt has received blood in past without reaction. Type of Cardiac Device: Loop Device Placement Date:: 2016 states need to be removed everything fine now per patien Past Psychological History: Anxiety, Panic Disorder Smoking Status: Never smoker Past Alcohol Use History: None Reported Past Drug Use History: None Reported - Past Family History Mother Family Medical History: Coronary Artery Disease (CAD), Diabetes Mellitus Additional Family Medical History / Comment(s): . Father Family Medical History: No Reported History Additional Family Medical History / Comment(s): Father is healthy General Exam Limitations: no limitations General appearance: alert, in no apparent distress Head exam: Present: atraumatic, normocephalic, normal inspection Eye exam: Present: normal appearance, PERRL, EOMI. Absent: scleral icterus, conjunctival injection, periorbital swelling ENT exam: Present: normal exam, mucous membranes moist Neck exam: Present: normal inspection, full ROM. Absent: tenderness, meningismus, lymphadenopathy Respiratory exam: Present: normal lung sounds bilaterally. Absent: respiratory distress, wheezes, rales, rhonchi, stridor Cardiovascular Exam: Present: regular rate, normal rhythm, normal heart sounds. Absent: systolic murmur, diastolic murmur, rubs, gallop, clicks GI/Abdominal exam: Present: soft, normal bowel sounds. Absent: distended, tenderness, guarding, rebound, rigid Neurological exam: Present: alert Skin exam: Present: warm, dry, intact, normal color. Absent: rash Course Vital Signs 08/02/23 13:16 Temperature 97.3 F L Pulse Rate 75 Respiratory 18 Rate Blood Pressure 163/95 O2 Sat by Pulse 99 Oximetry Chest Pain MDM - MDM Was pt. sent in by a medical professional or institution (PRAVIN Mendez, GUARD RAIL INSTALLER, urgent care, hospital, or group home...) When possible be specific @ -No Did you speak to anyone other than the patient for history (EMS, parent, family, police, friend...)? What history was obtained from this source @ -EMS providing prehospital treatment vitals EKG and medications given Did you review nursing and triage notes (agree or disagree)? Why? @ -I reviewed and agree with nursing and triage notes Were old charts reviewed (outside hosp., previous admission, EMS record, old EKG, old radiological studies, urgent care reports/EKG's, group home records)? Report findings @ -No old charts were reviewed Differential Diagnosis (chest pain, altered mental status, abdominal pain women, abdominal pain men, vaginal bleeding, weakness, fever, dyspnea, syncope, headache, dizziness, GI bleed, back pain, seizure, CVA, palpatations, mental health, musculoskeletal)? @ -Differential Chest Pain: Stable Angina, Unstable Angina, STEMI, NSTEMI Aortic Dissection, Pneumothorax, Musculoskeletal, Esophageal Spasm GERD, Cholecystitis, Pancreatitis, Zoster, this is not meant to be an all-inclusive list. EKG interpreted by me (3pts min.). @ -As above X-rays interpreted by me (1pt min.). @ -Chest ray shows no acute cardiopulmonary process. CT interpreted by me (1pt min.). @ -None done U/S interpreted by me (1pt. min.). @ -None done What testing was considered but not performed or refused? (CT, X-rays, U/S, labs)? Why? @ -None What meds were considered but not given or refused? Why? @ -None Did you discuss the management of the patient with other professionals (professionals i.e. , PA, GUARD RAIL INSTALLER, lab, RT, psych nurse, mental health social worker, peanut sheller, teacher, security officer, employment evaluator/case manager)? Give summary @ -EM for admission for chest pain rule out, syncope Was smoking cessation discussed for >3mins.? @ -No Was critical care preformed (if so, how long)? @ -No Were there social determinants of health that impacted care today? How? (Homelessness, low income, unemployed, alcoholism, drug addiction, transportation, low edu. Level, literacy, decrease access to med. care, residential, rehab)? @ -No Was there de-escalation of care discussed even if they declined (Discuss DNR or withdrawal of care, Hospice)? DNR status @ -No What co-morbidities impacted this encounter? (DM, HTN, Smoking, COPD, CAD, Cancer, CVA, ARF, Chemo, Hep., AIDS, mental health diagnosis, sleep apnea, morbid obesity)? @ -Seizure disorder Was patient admitted / discharged? Hospital course, mention meds given and route, prescriptions, significant lab abnormalities, going to OR and other pertinent info. @ -Admit patient presented for centralized chest pain initial workup was neg ative. Patient refused aspirin, patient was given nitro by EMS patient did have syncopal episode and reportedly has had multiple patient will be admitted for further evaluation, cardiac monitoring. Undiagnosed new problem with uncertain prognosis? @ -No Drug Therapy requiring intensive monitoring for toxicity (Heparin, Nitro, Insulin, Cardizem)? @ -No Were any procedures done? @ -No Diagnosis/symptom? @ -Chest pain, syncope Acute, or Chronic, or Acute on Chronic? @ -Acute Uncomplicated (without systemic symptoms) or Complicated (systemic symptoms)? @ -Complicated Side effects of treatment? @ -No Exacerbation, Progression, or Severe Exacerbation? @ -No Poses a threat to life or bodily function? How? (Chest pain, [place], [place], pneumonia, PE, COPD, DKA, ARF, appy, cholecystitis, CVA, Diverticulitis, Homicidal, Suicidal, threat to staff... and all critical care pts) @ -Yes possible ACS Disposition Clinical Impression: Syncope, Chest pain Disposition: ADMITTED IP TO THIS [facility] Condition: Fair Referrals: None,Stated [Primary Care Provider] - 1-2 days Time of Disposition: 14:40
--- NOTE | 2023-08-02 14:02 | XR ---
EXAMINATION TYPE: XR chest 2V DATE OF EXAM: 08/02/2023 1:54 PM CLINICAL INDICATION:Female, 57 years old with history of Chest Pain; COMPARISON: 05/05/2023. TECHNIQUE: XR chest 2V Frontal and lateral views of the chest. FINDINGS: Lungs/Pleura: There is no evidence of pleural effusion, focal consolidation, or pneumothorax. Pulmonary vascularity: Unremarkable. Heart/mediastinum: Cardiomediastinal silhouette is enlarged and stable. A loop recorder projects over the left thorax over the heart. Musculoskeletal: No acute osseous pathology. IMPRESSION: No acute cardiopulmonary disease/process.
[2023-08-02 14:21] LABS: Potassium 4.4 mmol/L (3.5-5.1)
[2023-08-02] MEDS: ACETAMINOPHEN IV (For NPO) 1,000 MG in EMPTY BAG 1 BAG IVPB STA (15:08)
[2023-08-02] MEDS: lamoTRIgine 100 MG TAB PO SCH (21:23)
[2023-08-02] MEDS: diazePAM 5 MG TAB PO SCH (21:23)
[2023-08-03] MEDS: diazePAM 5 MG TAB PO STA (00:35)
[2023-08-03] MEDS: NITROGLYCERIN SL TABS 0.4 MG TAB SUBLINGUAL PRN (00:56)
[2023-08-03] MEDS: MORPHINE SULFATE 2 MG/ML SYRINGE IVP PRN (01:01)
[2023-08-03] MEDS: FAMOTIDINE 20 MG/2 ML VIAL IV ONE (02:16)
[2023-08-03] MEDS: methylPREDNISolone SOD SUCCI 125 MG/2 ML VIAL IV ONE (02:18)
[2023-08-03] MEDS: diphenhydrAMINE 50 MG/ML 1 ML VIAL IVP ONE (02:18)
--- NOTE | 2023-08-03 04:13 | CT ---
EXAM: CT Chest With Intravenous Contrast CLINICAL HISTORY: ITS.REASON CT Reason: chest pain TECHNIQUE: Axial computed tomography images of the chest with intravenous contrast. CTDI is 16.50 mGy and DLP is 1124.5 mGy-cm. This CT exam was performed using one or more of the following dose reduction techniques: automated exposure control, adjustment of the mA and/or kV according to patient size, and/or use of iterative reconstruction technique. COMPARISON: No relevant prior studies available. FINDINGS: Lungs: Unremarkable. No mass. No consolidation. Pleural space: Unremarkable. No pneumothorax. No significant effusion. Heart: Cardiomegaly. No significant pericardial effusion. No significant coronary artery calcifications. Bones/joints: Unremarkable. No acute fracture. No dislocation. Soft tissues: Unremarkable. Vasculature: Unremarkable. No thoracic aortic aneurysm. Lymph nodes: Unremarkable. No enlarged lymph nodes. IMPRESSION: No acute findings in the chest. EXAM: CT Abdomen and Pelvis With Intravenous Contrast CLINICAL HISTORY: ITS.REASON CT Reason: chest pain TECHNIQUE: Axial computed tomography images of the abdomen and pelvis with intravenous contrast. CTDI is 16.5 mGy and DLP is 1124.5 mGy-cm. This CT exam was performed using one or more of the following dose reduction techniques: automated exposure control, adjustment of the mA and/or kV according to patient size, and/or use of iterative reconstruction technique. COMPARISON: No relevant prior studies available. FINDINGS: Lung bases: Unremarkable. No mass. No consolidation. ABDOMEN: Liver: Hepatic steatosis. Gallbladder and bile ducts: Cholecystectomy. No ductal dilation. Pancreas: Unremarkable. No mass. No ductal dilation. Spleen: Unremarkable. No splenomegaly. Adrenals: Unremarkable. No mass. Kidneys and ureters: Unremarkable. No solid mass. No hydronephrosis. Stomach and bowel: Wall thickening of the descending and sigmoid colon, correlate for mild colitis. No obstruction. PELVIS: Appendix: No findings to suggest acute appendicitis. Bladder: Unremarkable. No mass. Reproductive: Hysterectomy. ABDOMEN and PELVIS: Intraperitoneal space: Unremarkable. No free air. No significant fluid collection. Bones/joints: No acute fracture. No dislocation. Soft tissues: Unremarkable. Vasculature: Unremarkable. No abdominal aortic aneurysm. Lymph nodes: Unremarkable. No enlarged lymph nodes. IMPRESSION: Wall thickening of the descending and sigmoid colon, correlate for mild colitis.
--- NOTE | 2023-08-03 04:16 | XR ---
EXAM: XR Chest, 1 View CLINICAL HISTORY: ITS.REASON XR Reason: SOB TECHNIQUE: Frontal view of the chest. COMPARISON: No relevant prior studies available. FINDINGS: Lungs: Unremarkable. No consolidation. Pleural space: Unremarkable. No pneumothorax. Heart: Cardiomegaly. Mediastinum: Unremarkable. Normal mediastinal contour. Bones/joints: Unremarkable. No acute fracture. IMPRESSION: No acute findings in the chest.
[2023-08-03] MEDS: PANTOPRAZOLE 40 MG/10 ML VIAL IVP SCH (06:35)
[2023-08-03] MEDS: SERTRALINE 50 MG TAB PO SCH (11:10)
[2023-08-03 11:36] LABS: Chol/HDL Ratio 3.59 Ratio; LDL Cholesterol,Calculated 175.5 mg/dL (0.0-131.0); VLDL Calculation 16.54 mg/dL (5.00-40.00)
--- NOTE | 2023-08-03 11:38 | P.CRDCN ---
History of Present Illness Consult date: 08/03/23 Consult reason: sycope, chest pain History of present illness: History of present illness: This is a 57-year-old female not currently following with a certifed refrigeration operator. She has a past medical history of seizure disorder, recent hospitalization for TIA at [facility]. Patient gives history that she was at [facility] 2 weeks ago and was diagnosed with a TIA. At that time she had an echocardiogram, CAT scan and carotid ultrasound done. She states she was not seen by a certifed refrigeration operator. She apparently presented there because she was having dizziness when she bent over and then stood up and was passing out. Patient presents to [facility] complaining of chest pain along the sternum that she is thought felt like food was getting stuck in her esophagus but she had not eaten anything. She states she has a sensation that a potato chip is gone down in her esophagus causing her pain. There is radiation of the pain to behind the shoulder blades. She gives history of having shortness of breath for 1 month. Patient was previously seen by Dr. Alcantara and last appointment was 01/29/2022. Due to syncopal episodes and palpitations, patient had loop recorder and no arrhythmias were found. EKG sinus rhythm right bundle branch block Chest x-ray: No acute findings CT of the chest revealed no acute findings. CT of the abdomen revealed wall thickening of the descending and sigmoid colon, correlate for mild colitis. CBC, INR, D-dimer, electrolytes within normal limits. BUN 22 and creatinine 0.69. Troponin negative x 3. Alkaline phosphatase 132. Magnesium 2.0. Home cardiac medications: None Lexiscan Cardiolite stress test performed 04/09/2020 revealed a negative stress test by EKG criteria. Normal myocardial perfusion and function. Review Of Systems: At the time of my exam: CONSTITUTIONAL: Denies fever or chills. HEENT: Denies blurred vision, vision changes, or eye pain. Denies hemoptysis CARDIOVASCULAR: Denies chest pain. Denies orthopnea. Denies PND. Denies palpitations RESPIRATORY: Denies shortness of breath. GASTROINTESTINAL: Denies abdominal pain. Denies nausea or vomiting. HEMATOLOGIC: Denies bleeding disorders. GENITOURINARY: Denies any blood in urine. SKIN: Denies pruitis. Denies rash. Physical examination: Gen: This is a 57-year-old female in no acute distress VS: reviewed, blood pressure 177/72, heart rate 61, pulse ox 96% on room air. Orthostatic vital signs negative. HEENT: Head is atraumatic, normocephalic. Pupils equal, round. Sclerae is anicteric. NECK: Supple. No JVD. LUNGS: Clear to auscultation. No wheezes or rhonchi. No intercostal retractions. HEART: Regular rate and rhythm. No murmur. ABDOMEN: Soft No tenderness. EXTREMITIES: No pedal edema. No calf tenderness. NEUROLOGICAL: Patient is awake, alert and oriented x3. Assessment: Atypical chest pain, acute coronary syndrome ruled out Dizziness Recent TIA Seizure disorder Plan: Obtain records of echocardiogram, CT scan and carotid ultrasound done at [facility] 2 weeks ago Further recommendations to follow based upon results of above testing Recommend neurology evaluation Thank you kindly for this consultation. Nurse practitioner note has been reviewed, I agree with documented findings and plan of care. Patient was seen and examined. 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 BLOOD TRANSFUSIONS FOR LOW HGB. uterine and colon ca History of Any Multi-Drug Resistant Organisms: MRSA Date of last positivie culture/infection: 08/10/19 MDRO Source:: URINE Past Surgical History: Appendectomy, Bowel Resection, Cholecystectomy, Ear Surgery, Hysterectomy, Orthopedic Surgery Additional Past Surgical History / Comment(s): frantz knee arthroscopy, hiatal hernia surgery, rt ear surgery to remove middle ear, lymph node biopsy right armpit. loop recorder Past Anesthesia/Blood Transfusion Reactions: Postoperative Nausea & Vomiting (PONV) Additional Past Anesthesia/Blood Transfusion Reaction / Comment(s): Pt has received blood in past without reaction. Type of Cardiac Device: Loop Device Placement Date:: 2016 states need to be removed everything fine now per patien Past Psychological History: Anxiety, Panic Disorder Additional Psychological History / Comment(s): Pt resides alone. Her mother is her caregiver. She uses no assistive device. She does not drive. Smoking Status: Never smoker Past Alcohol Use History: None Reported Past Drug Use History: None Reported Additional Drug Use History / Comment(s): tried edibles for sleep ( chocolate), pt aware not to use 24 hrs before procedure. - Past Family History Mother Family Medical History: Coronary Artery Disease (CAD), Diabetes Mellitus Additional Family Medical History / Comment(s): . Father Family Medical History: No Reported History Additional Family Medical History / Comment(s): Father is healthy Medications and Allergies Home Medications Medication Instructions Recorded Confirmed Type lamoTRIgine [LaMICtal] 200 mg PO BID 09/26/18 08/02/23 History Sertraline [Zoloft] 150 mg PO DAILY 03/22/22 08/02/23 History diazePAM [Valium] 5 mg PO HS 08/02/23 08/02/23 History Allergies Allergy/AdvReac Type Severity Reaction Status Date / Time cephalexin [From Keflex] Allergy Rash/Hives Verified 08/02/23 15:13 codeine Allergy Rash/Hives Verified 08/02/23 15:13 erythromycin base Allergy Rash/Hives Verified 08/02/23 15:13 gadobutrol [From Gadavist] Allergy Anaphylaxis Verified 08/02/23 15:13 Gadolinium-Containing Allergy Anaphylaxis Verified 08/02/23 15:13 Contrast Medi iodine Allergy Anaphylaxis Verified 08/02/23 15:13 ketorolac tromethamine Allergy Rash/Hives/ Verified 08/02/23 15:13 [From Toradol] hallucinati ons Penicillins Allergy Anaphylaxis Verified 08/02/23 15:13 vancomycin Allergy Anaphylaxis Verified 08/02/23 15:13 azithromycin AdvReac red face Verified 08/02/23 15:13 diphenhydramine AdvReac Confusion Verified 08/02/23 15:13 [From Benadryl] lorazepam [From Ativan] AdvReac Hallucinati Verified 08/02/23 15:13 ons Physical Exam Vitals: Vital Signs Temp Pulse Pulse Resp BP BP BP 08/03/23 07:00 98.6 F 61 18 177/72 08/03/23 02:20 72 145/65 08/03/23 01:14 75 16 166/79 08/03/23 00:46 70 08/03/23 00:36 97.6 F 70 16 172/63 08/02/23 23:08 97.6 F 68 16 156/76 08/02/23 20:12 97.3 F L 72 18 133/89 08/02/23 18:27 62 18 117/91 08/02/23 13:16 97.3 F L 75 18 163/95 Pulse Ox 08/03/23 07:00 96 08/03/23 02:20 08/03/23 01:14 98 08/03/23 00:46 08/03/23 00:36 96 08/02/23 23:08 97 08/02/23 20:12 98 08/02/23 18:27 98 08/02/23 13:16 99 Intake and Output 08/02/23 08/03/23 08/03/23 22:59 06:59 14:59 Output Total 300 Balance -300 Output: Urine 300 Other: # Voids 1 1 Weight 86.183 kg Results 08/02/23 13:27 08/02/23 13:27 Cardiac Enzymes 08/02/23 08/02/23 08/02/23 Range/Units 13:27 13:27 15:51 AST 25 (14-36) U/L Troponin I <0.012 <0.012 (0.000-0.034) ng/mL 08/02/23 Range/Units 18:34 AST (14-36) U/L Troponin I <0.012 (0.000-0.034) ng/mL Coagulation 08/02/23 Range/Units 13:27 PT 9.7 L (10.0-12.5) sec APTT 25.4 (22.0-30.0) sec CBC 08/02/23 Range/Units 13:27 WBC 9.2 (3.8-10.6) k/uL RBC 4.25 (3.80-5.40) m/uL Hgb 12.3 (11.4-16.0) gm/dL Hct 38.8 (34.0-46.0) % Plt Count 242 (150-450) k/uL Comprehensive Metabolic Panel 08/02/23 Range/Units 13:27 Sodium 138 (137-145) mmol/L Potassium 4.4 (3.5-5.1) mmol/L Chloride 107 (98-107) mmol/L Carbon Dioxide 25 (22-30) mmol/L BUN 22 H (7-17) mg/dL Creatinine 0.69 (0.52-1.04) mg/dL Glucose 92 (74-99) mg/dL Calcium 9.4 (8.4-10.2) mg/dL AST 25 (14-36) U/L ALT 15 (4-34) U/L Alkaline Phosphatase 132 H (38-126) U/L Total Protein 7.1 (6.3-8.2) g/dL Albumin 4.0 (3.5-5.0) g/dL Current Medications Generic Name Dose Route Start Last Admin Trade Name Freq PRN Reason Stop Dose Admin Diazepam 5 mg 08/02/23 21:00 08/02/23 21:23 Diazepam 5 Mg Tab PO 5 mg HS EVERARDO Administration Lamotrigine 200 mg 08/02/23 21:00 08/02/23 21:23 Lamotrigine 100 Mg Tab PO 200 mg BID EVERARDO Administration Morphine Sulfate 2 mg 08/02/23 14:48 08/03/23 01:01 Morphine Sulfate 2 Mg/Ml Syringe IVP 2 mg Q4HR PRN Administration Chest Pain Nitroglycerin 0.4 mg 08/02/23 14:48 08/03/23 00:56 Nitroglycerin Sl Tabs 0.4 Mg Tab SUBLINGUAL 0.4 mg Q5M PRN Administration Chest Pain Pantoprazole Sodium 40 mg 08/03/23 07:30 08/03/23 06:35 Pantoprazole 40 Mg/10 Ml Vial IVP 40 mg AC-BID EVERARDO Administration Sertraline HCl 150 mg 08/03/23 09:00 Sertraline 50 Mg Tab PO DAILY EVERARDO Intake and Output 08/02/23 08/03/23 08/03/23 22:59 06:59 14:59 Output Total 300 Balance -300 Output: Urine 300 Other: # Voids 1 1 Weight 86.183 kg 08/02/23 13:27 08/02/23 13:27
--- NOTE | 2023-08-03 12:37 | P.HPIM ---
History of Present Illness 57-year-old male came in with complaints of chest pressure-like sensation in her chest pressure appears to be musculoskeletal reproducible in the midsternal area. She believes this may be secondary to the chest compressions that family may have done or may be secondary to the fall she had yesterday. Patient usually loses consciousness patient had multiple episodes of loss of consciousness in the past patient appears to have been extensively evaluated in the past. 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 Patient had a recent echocardiogram that was done at [facility] which is essentially within normal limits the patient was admitted there for 6 seizures. Seizures. Patient denied disease seizures as her seizures are associate with RIN postictal symptoms which she has none. She believes it is purely syncope. Patient also has a vagal nerve stimulator in the past the device itself was removed but wire still is coiled through the vagal nerve which may be contributing to her vasovagal syncopes. Patient had carotid Doppler in the past which showed 50 to 69% stenosis on 1 side and less than 50% stenosis on the other side which usually does not cause syncopal episodes. Patient has a neurologist at [facility] and wanted to follow-up with with that neurologist. Patient is supposed to get cognitive evaluation by her neurologist. Patient has elevated LDL of 175. REVIEW OF SYSTEMS: CONSTITUTIONAL: No fever, no malaise, no fatigue. HEENT: No recent visual problems or hearing problems. Denied any sore throat. CARDIOVASCULAR: No orthopnea, PND, no palpitations.-Syncope patient had similar multiple episodes in the past may be secondary secondary to vasovagal PULMONARY: No shortness of breath, no cough, no hemoptysis. GASTROINTESTINAL: No diarrhea, no nausea, no vomiting, no abdominal pain. NEUROLOGICAL: No headaches, no weakness, no numbness. HEMATOLOGICAL: Denies any bleeding or petechiae. GENITOURINARY: Denies any burning micturition, frequency, or urgency. MUSCULOSKELETAL/RHEUMATOLOGICAL: Denies any joint pain, swelling, or any muscle pain. ENDOCRINE: Denies any polyuria or polydipsia. The rest of the 14-point review of systems is negative. PHYSICAL EXAMINATION: GENERAL: The patient is alert and oriented x3, not in any acute distress. Well developed, well nourished. HEENT: Pupils are round and equally reacting to light. EOMI. No scleral icterus. No conjunctival pallor. Normocephalic, atraumatic. No pharyngeal erythema. No thyromegaly. CARDIOVASCULAR: S1 and S2 present. No murmurs, rubs, or gallops. PULMONARY: Chest is clear to auscultation, no wheezing or crackles. ABDOMEN: Soft, nontender, nondistended, normoactive bowel sounds. No palpable organomegaly. MUSCULOSKELETAL: No joint swelling or deformity. EXTREMITIES: No cyanosis, clubbing, or pedal edema. NEUROLOGICAL: Gross neurological examination did not reveal any focal deficits. SKIN: No rashes. Assessment and plan -Syncope: Appears to be vasovagal may be related to the vagal nerve stimulator that she had. Echocardiogram that was done on July 19 is essentially within normal limits if cardiology clears patient will be discharged -Chest pain appears to be musculoskeletal patient will need to take NSAIDs or Tylenol for pain. 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 BLOOD TRANSFUSIONS FOR LOW HGB. uterine and colon ca History of Any Multi-Drug Resistant Organisms: MRSA Date of last positivie culture/infection: 08/10/19 MDRO Source:: URINE Past Surgical History: Appendectomy, Bowel Resection, Cholecystectomy, Ear Surgery, Hysterectomy, Orthopedic Surgery Additional Past Surgical History / Comment(s): frantz knee arthroscopy, hiatal hernia surgery, rt ear surgery to remove middle ear, lymph node biopsy right armpit. loop recorder Past Anesthesia/Blood Transfusion Reactions: Postoperative Nausea & Vomiting (PONV) Additional Past Anesthesia/Blood Transfusion Reaction / Comment(s): Pt has received blood in past without reaction. Type of Cardiac Device: Loop Device Placement Date:: 2016 states need to be removed everything fine now per patien Past Psychological History: Anxiety, Panic Disorder Additional Psychological History / Comment(s): Pt resides alone. Her mother is her caregiver. She uses no assistive device. She does not drive. Smoking Status: Never smoker Past Alcohol Use History: None Reported Past Drug Use History: None Reported Additional Drug Use History / Comment(s): tried edibles for sleep ( chocolate), pt aware not to use 24 hrs before procedure. - Past Family History Mother Family Medical History: Coronary Artery Disease (CAD), Diabetes Mellitus Additional Family Medical History / Comment(s): . Father Family Medical History: No Reported History Additional Family Medical History / Comment(s): Father is healthy Medications and Allergies Home Medications Medication Instructions Recorded Confirmed Type lamoTRIgine [LaMICtal] 200 mg PO BID 09/26/18 08/02/23 History Sertraline [Zoloft] 150 mg PO DAILY 03/22/22 08/02/23 History diazePAM [Valium] 5 mg PO HS 08/02/23 08/02/23 History Allergies Allergy/AdvReac Type Severity Reaction Status Date / Time cephalexin [From Keflex] Allergy Rash/Hives Verified 08/02/23 15:13 codeine Allergy Rash/Hives Verified 08/02/23 15:13 erythromycin base Allergy Rash/Hives Verified 08/02/23 15:13 gadobutrol [From Gadavist] Allergy Anaphylaxis Verified 08/02/23 15:13 Gadolinium-Containing Allergy Anaphylaxis Verified 08/02/23 15:13 Contrast Medi iodine Allergy Anaphylaxis Verified 08/02/23 15:13 ketorolac tromethamine Allergy Rash/Hives/ Verified 08/02/23 15:13 [From Toradol] hallucinati ons Penicillins Allergy Anaphylaxis Verified 08/02/23 15:13 vancomycin Allergy Anaphylaxis Verified 08/02/23 15:13 azithromycin AdvReac red face Verified 08/02/23 15:13 diphenhydramine AdvReac Confusion Verified 08/02/23 15:13 [From Benadryl] lorazepam [From Ativan] AdvReac Hallucinati Verified 08/02/23 15:13 ons Physical Exam Vitals: Vital Signs Temp Pulse Pulse Pulse Pulse Pulse Resp 08/03/23 10:21 82 77 70 08/03/23 08:15 18 08/03/23 07:00 98.6 F 61 18 08/03/23 02:20 72 05/01/24 01:14 75 16 08/03/23 00:46 70 08/03/23 00:36 97.6 F 70 16 08/02/23 23:08 97.6 F 68 16 08/02/23 20:12 97.3 F L 72 18 08/02/23 18:27 62 18 08/02/23 13:16 97.3 F L 75 18 BP BP BP BP BP BP Pulse Ox 08/03/23 10:21 183/79 179/84 172/77 08/03/23 08:15 08/03/23 07:00 177/72 96 08/03/23 02:20 145/65 08/03/23 01:14 166/79 98 08/03/23 00:46 08/03/23 00:36 172/63 96 08/02/23 23:08 156/76 97 08/02/23 20:12 133/89 98 08/02/23 18:27 117/91 98 08/02/23 13:16 163/95 99 Intake and Output 08/02/23 08/03/23 08/03/23 22:59 06:59 14:59 Output Total 300 Balance -300 Output: Urine 300 Other: # Voids 1 1 Weight 86.183 kg Results CBC & Chem 7: 08/02/23 13:27 08/02/23 13:27 Labs: Abnormal Lab Results - Last 24 Hours (Table) 08/02/23 08/02/23 08/03/23 Range/Units 13:27 13:27 07:47 PT 9.7 L (10.0-12.5) sec BUN 22 H (7-17) mg/dL Alkaline Phosphatase 132 H (38-126) U/L Cholesterol 266.00 H (0.00-200.00) mg/dL LDL Cholesterol, Calc 175.5 H (0.0-131.0) mg/dL HDL Cholesterol 74.00 H (40.00-60.00) mg/dL Thrombosis Risk Factor Assmnt - Choose All That Apply Any of the Below Risk Factors Present?: Yes Each Factor Represents 1 point: Age 41-60 years, Obesity (BMI >25) Other Risk Factors: No Other congenital or acquired thrombophilia - If yes, enter type in comment: No Thrombosis Risk Factor Assessment Total Risk Factor Score: 2 Thrombosis Risk Factor Assessment Level: Low Risk
--- NOTE | 2023-08-03 12:38 | P.DS ---
Providers Date of admission: 08/02/23 14:36 Attending physician: Gabriel Antunez MD Consults: 08/02/23 14:48 Consult Physician Urgent Consulting Provider: Sherman Martin Consult Reason/Comments: chest pain Do you want consulting provider notified?: Yes 08/03/23 11:56 Consult Physician Routine Consulting Provider: Shireen Crook Consult Reason/Comments: syncope Do you want consulting provider notified?: Yes Primary care physician: Stated None Hospital Course: 57-year-old male came in with complaints of chest pressure-like sensation in her chest pressure appears to be musculoskeletal reproducible in the midsternal area. She believes this may be secondary to the chest compressions that family may have done or may be secondary to the fall she had yesterday. Patient usually loses consciousness patient had multiple episodes of loss of consciousness in the past patient appears to have been extensively evaluated in the past. 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 Patient had a recent echocardiogram that was done at [facility] which is essentially within normal limits the patient was admitted there for 6 seizures. Seizures. Patient denied disease seizures as her seizures are associate with RIN postictal symptoms which she has none. She believes it is purely syncope. Patient also has a vagal nerve stimulator in the past the device itself was removed but wire still is coiled through the vagal nerve which may be contributing to her vasovagal syncopes. Patient had carotid Doppler in the past which showed 50 to 69% stenosis on 1 side and less than 50% stenosis on the other side which usually does not cause syncopal episodes. Patient has a neurologist at [place] and wanted to follow-up with with that neurologist. Patient is supposed to get cognitive evaluation by her neurologist. Patient has elevated LDL of 175. PHYSICAL EXAMINATION: GENERAL: The patient is alert and oriented x3, not in any acute distress. Well developed, well nourished. HEENT: Pupils are round and equally reacting to light. EOMI. No scleral icterus. No conjunctival pallor. Normocephalic, atraumatic. No pharyngeal erythema. No thyromegaly. CARDIOVASCULAR: S1 and S2 present. No murmurs, rubs, or gallops. PULMONARY: Chest is clear to auscultation, no wheezing or crackles. ABDOMEN: Soft, nontender, nondistended, normoactive bowel sounds. No palpable organomegaly. MUSCULOSKELETAL: No joint swelling or deformity. EXTREMITIES: No cyanosis, clubbing, or pedal edema. NEUROLOGICAL: Gross neurological examination did not reveal any focal deficits. SKIN: No rashes. Assessment and plan -Syncope: Appears to be vasovagal may be related to the vagal nerve stimulator that she had. Echocardiogram that was done on July 19 is essentially within normal limits if cardiology clears patient will be discharged -Chest pain appears to be musculoskeletal patient will need to take NSAIDs or Tylenol for pain. -Seizure history patient will be resumed on home seizure medications patient will follow-up with her neurologist as an outpatient for that patient episodes does not appear to be seizures -Hyperlipidemia patient will be started on Lipitor Patient will be discharged today if cleared by cardiology Patient Condition at Discharge: Fair Plan - Discharge Summary New Discharge Prescriptions: No Action lamoTRIgine [LaMICtal] 200 mg PO BID Sertraline [Zoloft] 150 mg PO DAILY diazePAM [Valium] 5 mg PO HS Discharge Medication List lamoTRIgine [LaMICtal] 200 mg PO BID 09/26/18 [History] Sertraline [Zoloft] 150 mg PO DAILY 03/22/22 [History] diazePAM [Valium] 5 mg PO HS 08/02/23 [History] Follow up Appointment(s)/Referral(s): None,Stated [Primary Care Provider] - 1-2 days
[2023-08-04] MEDS ORDERED: REGADENOSON 0.4 MG/5 ML SYRINGE IV PRN (07:30)
[2023-08-04] MEDS ORDERED: CAFFEINE CITRATE 60 MG/3 ML VIAL IV PRN (07:30)
[2023-08-04] MEDS ORDERED: AMINOPHYLLINE 500 MG/20 ML VIAL IV PRN (07:30)
--- NOTE | 2023-08-04 11:23 | NM ---
EXAMINATION TYPE: NM stress lexiscan cardiolite DATE OF EXAM: 08/04/2023 COMPARISON: NONE HISTORY: Chest pain TECHNIQUE: After the intravenous administration of 10.2 mCi Tc 99m Sestamibi - Cardiolite resting SP ECT images acquired 45 minutes post injection. At peak stress 25.9 mCi Tc 99m Sestamibi - Stress images obtained 30 minutes post injection The patient was stressed with 0.4mg Lexiscan. FINDINGS: There is a mild mismatch defect anterior wall on mid stress images with normal radiotracer on resting images. Findings can be associated with stress-induced ischemic change. Wall motion is normal Ejection fraction is calculated to be 59 %. IMPRESSION: 1. Small area of stress-induced ischemic change mid anterior wall. Correlate with EKG changes
--- NOTE | 2023-08-04 12:16 | CA ---
Lexiscan Nuclear Stress Test Report Name: Reshma Blackmon Exam Date: 08/04/2023 09:06 Exam Location: [facility] Stress Ht (in): 61 Wt (lb): 190 BSA: 1.85 Ordering Phys: Estrella Wong Referring Phys: JORGE ALBERTO, Technologist: Jose Richardson Age: 57 Gender: F : 1965 Procedure CPT: Indications: Reflex order-Stress test ICD-10 Codes: Patient History: Medications: SEE CHART Meds past 24 hrs: Pretest Chest Pain: STRESS TEST Lexiscan Protocol Exercise Duration (min:sec): 01:[address] Depressions (mm): Angina Score: 2 Park Score: Resting HR (bpm): 69 Peak HR (bpm): 93 Resting BP (mmHg): 126 / 91 Peak BP (mmHg): 129 / 88 MPHR: 163 Target HR: 139 % MPHR: 57 METS: 1.0 Total Dose: Peak Dose: Atropine: Double Product: 14595 BP Response: Stress Termination: INFUSION COMPLETE Stress Symptoms: NO SYMPTOMS Stress Summary: ECG ANALYSIS Resting ECG: Stress ECG: CONCLUSIONS None diagnostic electrocardiogram stress testing Dr. Sherman Martin MD (Electronically Signed) Final Date: 04 Aug 2023 12:15
--- NOTE | 2023-08-04 16:09 | P.PN ---
Subjective Progress Note Date: 08/04/23 57-year-old male came in with complaints of chest pressure-like sensation in her chest pressure appears to be musculoskeletal reproducible in the midsternal area. She believes this may be secondary to the chest compressions that family may have done or may be secondary to the fall she had yesterday. Patient usually loses consciousness patient had multiple episodes of loss of consciousness in the past patient appears to have been extensively evaluated in the past. 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 Patient had a recent echocardiogram that was done at [facility] which is essentially within normal limits the patient was admitted there for 6 seizures. Patient denied disease seizures as her seizures are associate with RIN postictal symptoms which she has none. She believes it is purely syncope. Patient also has a vagal nerve stimulator in the past the device itself was removed but wire still is coiled through the vagal nerve which may be contributing to her vasovagal syncopes. Patient had carotid Doppler in the past which showed 50 to 69% stenosis on 1 side and less than 50% stenosis on the other side which usually does not cause syncopal episodes. Patient has a neurologist at [place] and wanted to follow-up with with that neurologist. Patient is supposed to get cognitive evaluation by her neurologist. Patient has elevated LDL of 175. 08/04/2023 Patient is seen in follow-up with cardiology following along with neurology. Patient has been cleared by neurology for outpatient follow-up with her neurologist. Patient undergoing a stress test today and will await report. Patient reports continued unsteadiness and also awaiting to work with PT therapy. Patient is afebrile with no reports of chest pain or shortness of breath. Patient currently n.p.o. and diet will be resumed once cleared by cardiology. Review of systems: Constitutional: No reports of fatigue, fever, or chills Cardiovascular: No reports of chest pain or palpitations Respiratory: No reports of shortness of breath or cough GI: No reports of nausea, vomiting, or diarrhea : No reports of dysuria or retention Neurovascular: reports of generalized weakness and unsteadiness with gait All medications have been reviewed PHYSICAL EXAMINATION: GENERAL: The patient is alert and oriented x3. Well developed, well nourished. Obese HEENT: Pupils are round and equally reacting to light. EOMI. No scleral icterus. No conjunctival pallor. Normocephalic, atraumatic. No pharyngeal erythema. No thyromegaly. CARDIOVASCULAR: S1 and S2 muffled PULMONARY: Chest is clear to auscultation, no wheezing or crackles. ABDOMEN: Soft, nontender, nondistended, normoactive bowel sounds. No palpable organomegaly. MUSCULOSKELETAL: No joint swelling or deformity. EXTREMITIES: No cyanosis, clubbing, or pedal edema. NEUROLOGICAL: Gross neurological examination did not reveal any focal deficits. Diffusely weak SKIN: No rashes. Assessment: -Syncope: Appears to be vasovagal, may be related to the vagal nerve stimulator that she had. Echocardiogram that was done on July 19 is essentially within normal limits if cardiology clears patient will be discharged -Chest pain appears to be musculoskeletal patient will need to take NSAIDs or Tylenol for pain. -Ruled out ACS. Patient underwent stress test today which was abnormal and is being planned for cardiac catheterization on 08/05/2023 -Seizure history -Hyperlipidemia -Obesity with a BMI 35.9 -GI prophylaxis -DVT prophylaxis -Full code Plan: Patient being followed by neurology as well as cardiology underwent stress test today which showed a small area of stressed induced ischemic change in the mid anterior wall with an EF approximately 59%. Continues to await medical records from [facility] on previous workup. Cardiology recommending cardiac catheterization on 08/04/2023 and patient is agreeable. Neurology evaluated the patient with no further intervention at this time recommending outpatient follow-up with her neurologist Diet to be resumed and will be n.p.o. at midnight for cardiac catheterization. Will await cardiac report and clearance for discharge planning Recommend PT/OT therapy evaluation as patient continues to report unsteadiness and gait dysfunction Possible discharge planning in the next 24 hours The impression and plan of care has been dictated by Nicolette Mosley, Nurse Practitioner as directed. Dr. Anish MD I have performed a history and examination and MDM of this patient, discussed the same with the dictator, and agree with the dictator's assessment and plan as written ,documented as a scribe. Based on total visit time, I have performed more than 50% of the visit. Objective - Vital Signs Vital signs: Vital Signs Temp 97.9 F 08/04/23 07:00 Pulse 63 08/04/23 07:00 Resp 16 08/04/23 07:00 BP 90/44 08/04/23 07:00 Pulse Ox 97 08/04/23 07:00 FiO2 Intake & Output 08/03/23 08/04/23 08/04/23 18:59 06:59 18:59 Intake Total 118 Output Total 300 Balance -182 Intake: Oral 118 Output: Urine 300 Other: # Voids 2 2 - Labs CBC & Chem 7: 08/02/23 13:27 08/02/23 13:27 Labs: Abnormal Lab Results - Last 24 Hours (Table) 08/03/23 Range/Units 07:47 Cholesterol 266.00 H (0.00-200.00) mg/dL LDL Cholesterol, Calc 175.5 H (0.0-131.0) mg/dL HDL Cholesterol 74.00 H (40.00-60.00) mg/dL
[2023-08-04] MEDS: SODIUM CHLORIDE 0.9% 1,000 ML IV SCH (21:44)
[2023-08-05] MEDS: ATORVASTATIN 80 MG TAB PO ONE (05:52)
[2023-08-05] MEDS: ASPIRIN 325 MG TAB PO ONE (05:52)
[2023-08-05 06:34] LABS: Glucose,Whole Blood 94 mg/dL (70-110)
[2023-08-05] MEDS ORDERED: HEPARIN SODIUM,PORCINE (1 ML) 2,500 UNIT in SODIUM CHLORIDE 0.9% 250 ML IRRIGATION PRN (07:00)
[2023-08-05] MEDS ORDERED: HEPARIN SODIUM,PORCINE 10,000 UNIT in SODIUM CHLORIDE 0.9% 1,000 ML IRRIGATION PRN (07:00)
[2023-08-05] MEDS ORDERED: LIDOCAINE 1% INJ 10MG/ML (20 ML MDV) ONE (07:18)
[2023-08-05] MEDS ORDERED: HEPARIN SODIUM 1,000 UN/ML (10ML VL) ONE (07:18)
[2023-08-05] MEDS ORDERED: VERAPAMIL 2.5 MG/ML 2 ML AMP ONE (07:19)
[2023-08-05] MEDS: MIDAZOLAM 2 MG/2 ML VIAL IVP ONE (07:23)
[2023-08-05] MEDS: IV FLUID CONTINUATION 1,000 ML IV ONE (07:24)
[2023-08-05] MEDS: diphenhydrAMINE 50 MG/ML 1 ML VIAL IVP ONE (07:30)
[2023-08-05] MEDS: methylPREDNISolone SOD SUCCI 125 MG/2 ML VIAL IV ONE (07:30)
[2023-08-05] MEDS ORDERED: diphenhydrAMINE 50 MG/ML 1 ML VIAL ONE (07:31)
[2023-08-05] MEDS ORDERED: methylPREDNISolone SOD SUCCI 125 MG/2 ML VIAL ONE (07:31)
[2023-08-05] MEDS: LIDOCAINE 1% INJ 10MG/ML (20 ML MDV) SQ ONE (07:33)
[2023-08-05] MEDS: VERAPAMIL SYRINGE (5 MG/10 ML) INTRAARTER ONE (07:34)
[2023-08-05] MEDS ORDERED: fentaNYL (PF) 50 MCG/ML 2 ML AMP ONE (07:34)
[2023-08-05] MEDS: fentaNYL (PF) 50 MCG/ML 2 ML AMP IVP ONE (07:35)
[2023-08-05] MEDS: HEPARIN SODIUM 1,000 UN/ML (10ML VL) IV ONE (07:38)
[2023-08-05] MEDS ORDERED: RX INFO: IV CONTRAST WAS GIVEN 1 EACH MISC MISCELLANE PRN (07:50)
[2023-08-05] MEDS: IOPAMIDOL-370 100ML BTL INJ ONE (07:51)
--- NOTE | 2023-08-05 07:53 | P.PCN ---
Date of Procedure: 08/05/23 Operative Findings: CARDIAC CATHETERIZATION PERFORMING PHYSICIAN: Sherman Martin MD, RPVI PROCEDURE PERFORMED: 1. Selective right and left coronary angiogram 2. Left heart catheterization 3. Ultrasound-guided access of the right radial artery INDICATION: Chest discomfort and abnormal myocardial perfusion imaging stress test COMPLICATION: None APPROACH: Right radial artery LEVEL OF SEDATION: Moderate with a sedation length of 12 minutes PROCEDURE DESCRIPTION: After obtaining an informed consent, the patient was brought to cardiac floating labor gang supervisor. Local anesthesia was performed using lidocaine subcutaneously. The right radial artery was cannulated using Seldinger technique, the guidewire passed e asily, following that we advanced a 5-Turkish sheath dilator assembly, the wire and dilator were removed and sheath was flushed. Following that, 2 mg of verapamil along with 5000 unit heparin were given. Selective right and left coronary angiogram using a 6-Turkish JR4 and JL 3.5 catheters. Following that we did left heart catheterization using 6-Turkish pigtail catheter. The procedure was completed there was no complication. SELECTIVE CORONARY ANGIOGRAM: The right coronary artery: Large-caliber vessel and a dominant vessel and appears to be angiographically normal Left main: Is angiographically normal The left circumflex: Large-caliber vessel nondominant vessel. The LCx gives rise into a large OM branch which appears to be angiographically normal after that it has a lesion appears to be in the range of 40% The left anterior descending artery: Large-caliber vessel appears to be angiographically normal and gives rise into first and second diagonal branches and appears to be angiographically normal HEMODYNAMICS: The LVEDP was 20 mmHg with no significant gradient across aortic valve CONCLUSION: 1. Mild to moderate nonobstructive coronary artery disease 2. Elevated left-sided filling pressure POSTPROCEDURE MANAGEMENT: Medical treatment
[2023-08-05 08:40] LABS: Basophils # (A) 0.03 X 10*3/uL (0.00-0.10); Basophils % (A) 0.4 %; Eosinophils # (A) 0.12 X 10*3/uL (0.04-0.35); Eosinophils % (A) 1.6 %; Lymphocytes # (A) 2.27 X 10*3/uL (0.90-5.00); Lymphocytes % (A) 29.4 %; MCH 29.2 pg (27.0-32.0); MCHC 31.4 g/dL (32.0-37.0); MCV 92.8 FL (80.0-97.0); Mean Platelet Volume 10.3 FL (9.5-12.2); Monocytes # (A) 0.42 X 10*3/uL (0.20-1.00); Monocytes % (A) 5.4 %; NRBC Per 100 WBC 0 X 10*3/uL (0.00-0.01); Neutrophils # (A) 4.85 X 10*3/uL (1.80-7.70); Neutrophils % (A) 62.8 %; Platelet Count 247 X 10*3/uL (140-440); RBC 3.77 X 10*6/uL (4.10-5.20); WBC 7.72 X 10*3/uL (4.50-10.00)
[2023-08-05 08:41] LABS: ALT 12 U/L (8-44); AST 19 U/L (13-35); Albumin 3.7 g/dL (3.8-4.9); Albumin/Globulin Ratio 1.68 Ratio (1.60-3.17); Alkaline Phosphatase 126 U/L (41-126); BUN/Creat Ratio 22.56 Ratio (12.00-20.00); Blood Urea Nitrogen 20.3 mg/dL (9.0-27.0); Calcium 8.8 mg/dL (8.7-10.3); Carbon Dioxide 27.4 mmol/L (21.6-31.8); Chloride 105 mmol/L (96-109); Globulin 2.2 g/dL (1.6-3.3); Glucose 96 mg/dL (70-110); Magnesium 2.2 mg/dL (1.5-2.4); Potassium 4.5 mmol/L (3.5-5.5); Sodium 141 mmol/L (135-145); Total Bilirubin <0.2 mg/dL (0.3-1.2); Total Protein 5.9 g/dL (6.2-8.2)
[2023-08-05] MEDS: SODIUM CHLORIDE 0.9% 1,000 ML IV SCH (09:42)
--- NOTE | 2023-08-05 09:48 | P.CNNES ---
History of Present Illness Consult date: 08/04/23 Requesting physician: Niko Oconnell Reason for Consult: Syncope History of Present Illness: Patient is a 57-year-old female with history of seizure disorder, came to the hospital by ambulance on 08/02/2023 at 1:10 PM for chest pain and altered level of consciousness. As per EMS flowsheet, when they arrived, patient was outside in a chair with an altered level of consciousness. Family on location noted that the patient has been having chest pain for the last hour and passed out just prior to their arrival. Patient's vitals were taken. Patient was noted by family to have cardiac and seizure history. Patient became more responsive until she was alert and oriented when loading her into the ambulance. Patient was complaining of severe chest discomfort and noted it feels as though she swallowed something sharp that was stuck. Patient also noted the pain was radiating into her back. Patient's blood pressure was 185/89, pulse rate 81 respiration 20. Vital signs on arrival blood pressure 163/95 pulse 75 temperature 97.3. Blood test shows normal CBC, PT PTT, normal CMP, troponin. Chest x-ray showed no acute cardiopulmonary process. EKG shows sinus rhythm with first-degree AV block. Left axis deviation. RBBB. CT of the chest was normal. Abdomen pelvis revealed wall thickening of the descending and sigmoid colon, correlate for mild colitis. Patient states that she has been passing out at home for last 4 months. She will be sitting and her head drops down. She believes that these are not seizures, and believes that these are spells related to cardiac issues. Patient states when she bends over, or if she gets up too fast, she is crumbles down on the floor. She starts feeling whooshing sound in her neck, the head feels big, but she does not pass out all the way. She just gets dizzy and notices black spots. She came to the hospital because she started getting chest pain and she now has a positive stress test. She is undergoing heart catheterization tomorrow. Patient is not a very good historian, and I spent extended time, trying to gather the semiology of her seizures. She tells me that she has history of seizure disorder since she was 10 years old. Her first seizure was a grand mal seizure at 10 years of age. In her lifetime, she had 4 grand mal seizure, and the last one was about 2 years ago. Patient also gets petit mal seizures. Her seizures mainly occurs when she is "overly tired, exhausted" then may have 1. She feels the seizure coming on, feels funny, "like not all there" and then has one. She usually calls her parents when she feels it coming on. Her seizures are "stress-induced", and often happens in the evening. She was at parents house, laying in the couch and felt it coming which she describes as jerking of the arm. She sat up, yelled really loud and the seizure was over. This was her "grand mal seizure", that occurred 1-1/2 to 2 years ago. Her other seizures she describes as she gets "jittery/twitchy", then she has rapid blinking, twitches. She passes out but less than for 3 minutes. She is fine rest of the day. During the seizure, she can talk, is aware but cannot control jerking. Sometimes, someone can "talk her out of it". Patient states that with her grand mal seizure, she had occasionally bitten her tongue. She used to be on Topamax, but now is off. Patient used to follow-up with Dr. Brock,, but was not sati sfied as because she used to only see the nurse practitioner. Patient states that she was placed on Klonopin and stayed on it for 1 year she started noticing long-term side effects, felt "not in the right mind", therefore she stopped it on her own abruptly, about few months ago. She then started seeing Dr. Harmon at [facility]. She was continued on Lamictal 200 mg twice daily. She was also started on Valium 5 mg at bedtime for last few months. Patient states that it has really helped and she has not had any seizure for last 5 months. Although now she is somewhat forgetful. Dr. Harmon is having her undergo further testing for seizure disorder. She is scheduled for neuropsychological testing on 08/22/2023 by in [place]. She is also scheduled for brain MRI. Patient states that Dr. Harmon thereafter may consider performing prolonged video EEG monitoring for her seizure disorder. Patient states that she had a VNS placed in around January 2023, but shortly after it became infected and has to be taken out. The VNS wire is still present. Patient previously was on Depakote for long time, but stopped at age 45. She has previously tried phenobarbital and Dilantin as well. Lamictal was started by Florecita at Dr. Brock office. Patient states that she has not had any seizure for last 5 months. Patient has been seen by myself previously twice, on 05/17/2021 and also on 02/14/2020 for acute right hemiparesis involving the arm and leg, diagnosed with possible conversion disorder, as the MRI of the brain has been negative each of the time. Patient also has history of nonepileptic "stress" seizures. Patient has history of colon cancer in remission. Patient had a normal brain MRI on 05/19/2021 when she had right hemiparesis. Patient was discharged on aspirin 325 mg daily. Review of Systems As mentioned in detail in HPI. All other review of system reviewed and noncontributory to the presenting illness. 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 BLOOD TRANSFUSIONS FOR LOW HGB. uterine and colon ca History of Any Multi-Drug Resistant Organisms: MRSA Date of last positivie culture/infection: 08/10/19 MDRO Source:: URINE Past Surgical History: Appendectomy, Bowel Resection, Cholecystectomy, Ear Surgery, Hysterectomy, Orthopedic Surgery Additional Past Surgical History / Comment(s): frantz knee arthroscopy, hiatal hernia surgery, rt ear surgery to remove middle ear, lymph node biopsy right armpit. loop recorder Past Anesthesia/Blood Transfusion Reactions: Postoperative Nausea & Vomiting (PONV) Additional Past Anesthesia/Blood Transfusion Reaction / Comment(s): Pt has received blood in past without reaction. Type of Cardiac Device: Loop Device Placement Date:: 2016 states need to be removed everything fine now per patien Past Psychological History: Anxiety, Panic Disorder Additional Psychological History / Comment(s): Pt resides alone. Her mother is her caregiver. She uses no assistive device. She does not drive. Smoking Status: Never smoker Past Alcohol Use History: None Reported Past Drug Use History: None Reported Additional Drug Use History / Comment(s): tried edibles for sleep ( chocolate), pt aware not to use 24 hrs before procedure. - Past Family History Mother Family Medical History: Coronary Artery Disease (CAD), Diabetes Mellitus Additional Family Medical History / Comment(s): . Father Family Medical History: No Reported History Additional Family Medical History / Comment(s): Father is healthy Medications and Allergies Home Medications Medication Instructions Recorded Confirmed Type lamoTRIgine [LaMICtal] 200 mg PO BID 09/26/18 08/02/23 History Sertraline [Zoloft] 150 mg PO DAILY 03/22/22 08/02/23 History diazePAM [Valium] 5 mg PO HS 08/02/23 08/02/23 History Rosuvastatin [Crestor] 20 mg PO HS #30 tablet 08/03/23 Rx Allergies Allergy/AdvReac Type Severity Reaction Status Date / Time cephalexin [From Keflex] Allergy Rash/Hives Verified 08/02/23 15:13 codeine Allergy Rash/Hives Verified 08/02/23 15:13 erythromycin base Allergy Rash/Hives Verified 08/02/23 15:13 gadobutrol [From Gadavist] Allergy Anaphylaxis Verified 08/02/23 15:13 Gadolinium-Containing Allergy Anaphylaxis Verified 08/02/23 15:13 Contrast Medi iodine Allergy Anaphylaxis Verified 08/02/23 15:13 ketorolac tromethamine Allergy Rash/Hives/ Verified 08/02/23 15:13 [From Toradol] hallucinati ons Penicillins Allergy Anaphylaxis Verified 08/02/23 15:13 vancomycin Allergy Anaphylaxis Verified 08/02/23 15:13 azithromycin AdvReac red face Verified 08/02/23 15:13 diphenhydramine AdvReac Confusion Verified 08/02/23 15:13 [From Benadryl] lorazepam [From Ativan] AdvReac Hallucinati Verified 08/02/23 15:13 ons Physical Examination - Vital Signs Vital Signs: Vital Signs Temp Pulse Resp BP BP BP Pulse Ox 08/04/23 07:00 97.9 F 63 16 90/44 97 08/04/23 01:01 98.3 F 97 15 147/74 98 08/03/23 20:00 17 08/03/23 19:36 97.8 F 61 15 124/53 95 05/01/24 14:27 98.1 F 75 17 137/68 95 Intake and Output 08/03/23 08/04/23 08/04/23 22:59 06:59 14:59 Other: # Voids 1 2 Patient is a middle aged female, in no acute distress. Patient is alert awake oriented to time place and person. Speech and language functions are normal. Patient can name and repeat very well. No aphasia or dysarthria. Attention, concentration and fund of knowledge is adequate. On cranial nerve examination, pupils are equal, round and reacting to light, visual moreno are full on confrontation, with no neglect on double simultaneous stimulation. Extraocular muscles are intact with no nystagmus. Face is symmetric, tongue protrudes to the midline. Palatal elevation and sensation normal, hearing and shoulder shrug normal, facial sensation normal. On muscle strength testing, there is no pronator drift and the strength is normal in arms and legs distally and proximally, except left deltoid and left hip flexion which are both 5-. Rest of the strength testing is normal. Deep tendon reflexes are symmetric to all over and plantars downgoing. Sensory to touch is equal with no neglect on double simultaneous stimulation. Cerebellar function showed no ataxia for [id number] testing. No dysdiadochokinesia. No ataxia for [id number] testing on either side. Tone and bulk of muscles normal. Gait deferred.. On general examination, there is no carotid bruit or murmur, S1-S2 audible. Chest is clear on consultation. Abdomen is soft nontender. No organomegaly, bowel sounds present. Peripheral pulses are present. No peripheral edema. Results - Laboratory Findings CBC and BMP: 08/05/23 04:09 08/05/23 04:09 Abnormal Lab Findings: Abnormal Labs 08/02/23 08/02/23 08/03/23 13:27 13:27 07:47 PT 9.7 L BUN 22 H Alkaline Phosphatase 132 H Cholesterol 266.00 H LDL Cholesterol, Calc 175.5 H HDL Cholesterol 74.00 H Assessment and Plan Assessment: * Recurrent near syncopal spells, possibly cardiac related. Patient has a positive stress test. Rule out arrhythmia. * Longstanding history of "stress-induced" seizure disorder. Uncertain if patient has only nonepileptic seizures, or mixed epileptic and nonepileptic seizures. * History of recurrent right hemiparesis with negative workup, possible conversion disorder. * History of colon cancer, currently in remission. * History of syncopal spells in the past. Plan: * Recurrent near syncopal spells, possibly cardiac related. Patient has a positive stress test. Rule out arrhythmia. Telemetry monitoring so far showing sinus rhythm with sinus bradycardia. * Longstanding history of seizure disorder. Uncertain if patient has only nonepileptic seizures, or mixed epileptic and nonepileptic seizures. Patient is currently being worked up by Dr. Harmon, epileptologist at [facility]. * Patient states she has not had any seizure for last 5 months. These fainting spells are not seizures, as per patient. She will be maintained on Lamictal 200 mg twice daily. * We discussed about checking EEG, but patient had an EEG performed just couple weeks ago at [facility] which was normal. Patient is also being considered for long-term EEG monitoring by her neurologist Dr. Harmon, therefore no need to repeat EEG at this time. * Neurologically, no other workup indicated. * Patient is clear from neurology standpoint. Patient will continue to follow- up with her neurologist outpatient. * Discussed with primary team. * Thank you for the consult. Time with Patient: Greater than 30
[2023-08-05 16:08] VITALS: RESP 22
[2023-08-05 16:48] VITALS: TEMP 98.3
[2023-08-05 18:06] VITALS: BP 148/77; PULSE 76
--- NOTE | 2023-08-08 12:55 | P.DS ---
Providers Date of admission: 08/02/23 14:36 Expected date of discharge: 08/05/23 Attending physician: Gabriel Antunez MD Consults: 08/02/23 14:48 Consult Physician Urgent Consulting Provider: Sherman Martin Consult Reason/Comments: chest pain Do you want consulting provider notified?: Yes 08/03/23 11:56 Consult Physician Routine Consulting Provider: Shireen Crook Consult Reason/Comments: syncope Do you want consulting provider notified?: Yes Primary care physician: Stated None Hospital Course: Final diagnosis -Syncope: Appears to be vasovagal, may be related to the vagal nerve stimulator that she had. Echocardiogram that was done on July 19 is essentially within normal limits -Chest pain appears to be musculoskeletal patient will need to take NSAIDs or Tylenol for pain. -Ruled out ACS. Patient underwent stress test today which was abnormal and is status post cardiac catheterization on 08/05/2023 which was normal recommending medical management -Seizure history -Hyperlipidemia -Obesity with a BMI 35.9 -GI prophylaxis -DVT prophylaxis -Full code Discharge disposition Patient is being discharged in a stable condition with guarded prognosis to home. Patient will follow-up with primary care provider in the outpatient setting upon discharge. Patient is to continue with current medications and close outpatient follow-up with cardiology as well as her neurologist as scheduled. Total time taken is greater than 35 minutes. Hospital course This is a 57-year-old female who was recently admitted with syncopal type episodes appearing to be vasovagal and musculoskeletal being closely monitored. Cardiology evaluated the patient underwent stress testing which was abnormal recommending cardiac catheterization and patient is status post catheterization on 08/05/2023 with no interventions performed recommending medical management. Patient has been cleared by cardiology. Recommend outpatient follow-up with neurologist as patient has a stimulator and follows outpatient. Patient has been cleared by consultation for discharge. Please refer to cardiology note for further HPI. Currently no reports of chest pain, shortness of breath, or palpitations. Patient is afebrile. No reports of nausea or vomiting and patient is tolerating diet. Patient will be discharged home today. High risk for readmission given patient's significant comorbidities. Physical exam: Gen: This is a 57-year-old female who is awake, alert and oriented x 3, well- developed, well-nourished, elderly appearing, obese HEENT: Head is atraumatic, normocephalic. Pupils equal, round. Sclerae is anicteric. NECK: Supple. No JVD. No lymphadenopathy. No thyromegaly. LUNGS: Clear to auscultation. No wheezes or rhonchi. No intercostal retractions. HEART: Regular rate and rhythm. No murmur. ABDOMEN: Soft. Obese. Bowel sounds are present. No masses. No tenderness. EXTREMITIES: No pedal edema. No calf tenderness. NEUROLOGICAL: Patient is awake, alert and oriented x3. Cranial nerves 2 through 12 are grossly intact. Diffusely weak Please refer to medication reconciliation sheet for a list of medications. The impression and plan of care has been dictated by Nicolette Mosley, Nurse Practitioner as directed. Dr. Anish MD I have performed a history and examination and MDM of this patient, discussed the same with the dictator, and agree with the dictator's assessment and plan as written ,documented as a scribe. Based on total visit time, I have performed more than 50% of the visit. Patient Condition at Discharge: Fair Plan - Discharge Summary New Discharge Prescriptions: New Rosuvastatin [Crestor] 20 mg PO HS #30 tablet Continue lamoTRIgine [LaMICtal] 200 mg PO BID Sertraline [Zoloft] 150 mg PO DAILY diazePAM [Valium] 5 mg PO HS Discharge Medication List lamoTRIgine [LaMICtal] 200 mg PO BID 09/26/18 [History] Sertraline [Zoloft] 150 mg PO DAILY 03/22/22 [History] diazePAM [Valium] 5 mg PO HS 08/02/23 [History] Rosuvastatin [Crestor] 20 mg PO HS #30 tablet 08/03/23 [Rx] Follow up Appointment(s)/Referral(s): Aaron Cornejo MD [STAFF PHYSICIAN] - 1 Week Sherman Martin MD [STAFF PHYSICIAN] - 1 Week Patient Instructions/Handouts: *Surgery [facility] - After Heart Catheterization - Personal Computer Specialist Instructions, Heart Catheterization (DC) Activity/Diet/Wound Care/Special Instructions: Activity limited until follow-up Follow-up with primary care provider to establish as scheduled Follow-up with cardiology outpatient Follow-up with your neurologist outpatient Discharge Disposition: HOME SELF-CARE
== END 2023-08-05 19:07 | disposition home or self-care (01) | DRG 192 ==
LOC: EC 13:10 → SUPCPDRO 13:10 → 6NMEDSUR 14:36 → OBSVTOIN 14:37 → 6NMEDSUR 16:16
PROVIDERS: ADMIT Internal Medicine; ATTEND Internal Medicine
PROC: 4A023N7 Measurement of Cardiac Sampling and Pressure, Left Heart, Percutaneous Approach (ICD-10-PCS; principal; 2023-08-05 07:30)
PROC: B2111ZZ Fluoroscopy of Multiple Coronary Arteries using Low Osmolar Contrast (ICD-10-PCS; principal; 2023-08-05 07:30)
DX: R55 Syncope and collapse (principal); R07.89 Other chest pain; E66.9 Obesity, unspecified; E78.5 Hyperlipidemia, unspecified; F41.0 Panic disorder [episodic paroxysmal anxiety]; G40.409 Other generalized epilepsy and epileptic syndromes, not intractable, without status epilepticus; G40.A09 Absence epileptic syndrome, not intractable, without status epilepticus; G81.91 Hemiplegia, unspecified affecting right dominant side; I25.10 Atherosclerotic heart disease of native coronary artery without angina pectoris; K44.9 Diaphragmatic hernia without obstruction or gangrene; K52.9 Noninfective gastroenteritis and colitis, unspecified; I44.0 Atrioventricular block, first degree; L40.9 Psoriasis, unspecified; I45.10 Unspecified right bundle-branch block; Z60.2 Problems related to living alone; I65.23 Occlusion and stenosis of bilateral carotid arteries; Z68.35 Body mass index [BMI] 35.0-35.9, adult; Z86.14 Personal history of Methicillin resistant Staphylococcus aureus infection; Z86.73 Personal history of transient ischemic attack (TIA), and cerebral infarction without residual deficits; Z95.818 Presence of other cardiac implants and grafts; Z85.038 Personal history of other malignant neoplasm of large intestine; Z85.42 Personal history of malignant neoplasm of other parts of uterus; Z88.1 Allergy status to other antibiotic agents; Z88.5 Allergy status to narcotic agent; Z88.0 Allergy status to penicillin; Z88.8 Allergy status to other drugs, medicaments and biological substances
CPT/HCPCS: 36415; 71045; 71046; 71260; 74177; 78452; 80053; 80061; 83690; 83735; 84484; 85025; 85379; 85610; 85730; 93005; 93017; 93458; 96365; 96375; 99285

== ENCOUNTER 2023-09-07 20:31 | Emergency (ER) | payer OTHER ==
[2023-09-07 20:44] VITALS: TEMP 98.4
[2023-09-07 21:33] LABS: Basophils % (A) 0 %; Eosinophils # (A) 0.1 k/uL (0-0.7); Eosinophils % (A) 2 %; HCT 39.9 % (34.0-46.0); HGB 13.1 gm/dL (11.4-16.0); Lymphocytes # (A) 1.4 k/uL (1.0-4.8); Lymphocytes % (A) 23 %; MCH 29.8 pg (25.0-35.0); MCHC 32.9 g/dL (31.0-37.0); MCV 90.7 fL (80.0-100.0); Mean Platelet Volume 7.8; Monocytes # (A) 0.2 k/uL (0-1.0); Monocytes % (A) 4 %; Neutrophils # (A) 4.1 k/uL (1.3-7.7); Neutrophils % (A) 70 %; Platelet Count 244 k/uL (150-450); WBC 5.9 k/uL (3.8-10.6)
[2023-09-07 21:37] LABS: INR 0.9 (<1.2); Partial Thromboplastin Time 24.3 sec (22.0-30.0); Prothrombin Time 9.8 sec (10.0-12.5)
[2023-09-07 21:40] LABS: ALT 18 U/L (4-34); AST 26 U/L (14-36); African American GFR (CKD) >90 (>60 ml/min/1.73 sqM); Alkaline Phosphatase 165 U/L (38-126); Anion Gap 5 mmol/L; Blood Urea Nitrogen 19 mg/dL (7-17); Calcium 9.3 mg/dL (8.4-10.2); Carbon Dioxide 28 mmol/L (22-30); Chloride 108 mmol/L (98-107); Glucose 97 mg/dL (74-99); Non-African American GFR(CKD) 86 (>60 ml/min/1.73 sqM); Potassium 4.6 mmol/L (3.5-5.1); Sodium 141 mmol/L (137-145); Total Bilirubin 0.5 mg/dL (0.2-1.3); Total Protein 6.8 g/dL (6.3-8.2)
--- NOTE | 2023-09-07 22:05 | XR ---
EXAMINATION TYPE: XR knee complete LT DATE OF EXAM: 09/07/2023 CLINICAL HISTORY: Fall injury with pain TECHNIQUE: Three views of the left knee are obtained. COMPARISON: Prior left knee x-ray May 17, 2020. FINDINGS: There is no acute fracture/dislocation evident in left knee. Moderate tricompartment joint space loss and spurring is redemonstrated. The overlying soft tissue appears unremarkable. IMPRESSION: There is no acute fracture or dislocation in the left knee.
--- NOTE | 2023-09-07 22:05 | XR ---
EXAMINATION TYPE: XR chest 2V DATE OF EXAM: 09/07/2023 COMPARISON: Chest x-ray August 03, 2023 HISTORY: Syncope. TECHNIQUE: Frontal and lateral views of the chest are obtained. FINDINGS: Improved inspiration. Overlying bra strap. There is no focal air space opacity, pleural ef fusion, or pneumothorax seen. Mild cardiomegaly with overlying loop recorder is redemonstrated. The osseous structures are intact. IMPRESSION: No acute process.
[2023-09-07] MEDS: HYDROmorphone 0.5 MG/0.5 ML SYRINGE IVP STA (22:10)
--- NOTE | 2023-09-07 22:10 | CT ---
EXAMINATION TYPE: CT brain cspine wo con CT DLP: 1438.9 mGycm, Automated exposure control for dose reduction was used. DATE OF EXAM: 09/07/2023 9:51 PM COMPARISON: None. CLINICAL INDICATION:Female, 57 years old with history of syncope; Syncope with fall, unknown length o f LOC, hx of seizures. TECHNIQUE: Brain: Multiple axial CT images of the brain were obtained without IV contrast. Cspine: Axial CT images from the skull base to the inferior aspect of T2 we obtained without intraven ous contrast. Coronal and sagittal reformatted images were also reviewed. . FINDINGS: Brain: Extra-axial spaces: No abnormal extra-axial fluid collections. Ventricular system: Within normal limits Cerebral parenchyma: No acute intraparenchymal hemorrhage or mass effect. The hull-white junction is well differentiated. Cerebellum: Unremarkable. Mass effect: No evidence of midline shift. Intracranial vasculature: unremarkable Soft tissues: Normal. Calvarium/osseous structures: No depressed skull fracture. Benign hyperostosis frontalis noted. Paranasal sinuses and mastoid air cells: Postprocedural changes to the right temporal bone. Right mid dle ear effusion. Findings similar to prior. Visualized orbits: Orbital contents are intact. Cervical spine: Fracture: None. Osseous structures: Multilevel degenerative disc disease changes with endplate spurring and disc oste ophyte complex's. Vertebral alignment: Within normal limits. Spinal canal/Neural Foramina: No evidence of significant spinal canal narrowing. No evidence for sign ificant neural foraminal stenosis. Neck soft tissues: Prevertebral soft tissues are within normal limits. Metallic device is seen within the soft tissues and neck near the superior common carotid artery. Other: The airway is patent. The lung apices are clear. IMPRESSION: 1. No acute intracranial process. 2. No evidence of cervical spine fracture. 3. Mild multilevel degenerative disc disease. 4. Postprocedural changes right temporal bone with right middle ear effusion.
[2023-09-07] MEDS: ONDANSETRON 4 MG/2 ML VIAL IVP STA (22:11)
[2023-09-07] MEDS: ACETAMINOPHEN TAB 325 MG TAB PO STA (22:11)
--- NOTE | 2023-09-07 23:32 | ED ---
Dizziness HPI - General Chief Complaint: Syncope Stated Complaint: Syncope Time Seen by Provider: 09/07/23 20:48 Source: EMS, RN notes reviewed Limitations: no limitations - History of Present Illness Initial Comments: 57-year-old female recently discharged from this facility 08/05/2023 secondary to syncopal episodes presenting to the ED with complaints of syncope. Patient at this time had evaluation by cardiology who also did cardiac cath with no interventions and recommended medical management. Patient presenting today with complaint of syncope. Patient states that she was walking down the stairs and had a syncopal episode. Reports that she may have hit her head. Denies blood thinner use. At this time only complaints of headache and left knee pain. Denies any other injury. No preceding chest pain or shortness of breath. Currently denies chest pain shortness of breath lightheadedness dizziness weakness. No abdominal pain nausea vomiting diarrhea. No fever or chills. No other complaints at this time. - Related Data Home Medications Medication Instructions Recorded Confirmed lamoTRIgine [LaMICtal] 200 mg PO BID 09/26/18 08/02/23 Sertraline [Zoloft] 150 mg PO DAILY 03/22/22 08/02/23 diazePAM [Valium] 5 mg PO HS 08/02/23 08/02/23 Previous Rx's Medication Instructions Recorded Rosuvastatin [Crestor] 20 mg PO HS #30 tablet 08/03/23 Allergies Allergy/AdvReac Type Severity Reaction Status Date / Time cephalexin [From Keflex] Allergy Rash/Hives Verified 08/02/23 15:13 codeine Allergy Rash/Hives Verified 08/02/23 15:13 erythromycin base Allergy Rash/Hives Verified 08/02/23 15:13 gadobutrol [From Gadavist] Allergy Anaphylaxis Verified 08/02/23 15:13 Gadolinium-Containing Allergy Anaphylaxis Verified 08/02/23 15:13 Contrast Medi iodine Allergy Anaphylaxis Verified 08/02/23 15:13 Penicillins Allergy Anaphylaxis Verified 08/02/23 15:13 vancomycin Allergy Anaphylaxis Verified 08/02/23 15:13 azithromycin AdvReac red face Verified 08/02/23 15:13 diphenhydramine AdvReac Confusion Verified 08/02/23 15:13 [From Benadryl] lorazepam [From Ativan] AdvReac Hallucinati Verified 08/02/23 15:13 ons Review of Systems ROS Statement: Those systems with pertinent positive or pertinent negative responses have been documented in the HPI. ROS Other: All systems not noted in ROS Statement are negative. 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 BLOOD TRANSFUSIONS FOR LOW HGB. uterine and colon ca History of Any Multi-Drug Resistant Organisms: MRSA Date of last positivie culture/infection: 08/10/19 MDRO Source:: URINE Past Surgical History: Appendectomy, Bowel Resection, Cholecystectomy, Ear Surgery, Hysterectomy, Orthopedic Surgery Additional Past Surgical History / Comment(s): frantz knee arthroscopy, hiatal hernia surgery, rt ear surgery to remove middle ear, lymph node biopsy right armpit. loop recorder Past Anesthesia/Blood Transfusion Reactions: Postoperative Nausea & Vomiting (PONV) Additional Past Anesthesia/Blood Transfusion Reaction / Comment(s): Pt has received blood in past without reaction. Type of Cardiac Device: Loop Device Placement Date:: 2016 states need to be removed everything fine now per patien Past Psychological History: Anxiety, Panic Disorder Smoking Status: Never smoker Past Alcohol Use History: None Reported Past Drug Use History: None Reported - Past Family History Mother Family Medical History: Coronary Artery Disease (CAD), Diabetes Mellitus Additional Family Medical History / Comment(s): . Father Family Medical History: No Reported History Additional Family Medical History / Comment(s): Father is healthy General Exam Limitations: no limitations General appearance: alert, in no apparent distress Head exam: Present: other (No signs or raccoon's eyes.) Neck exam: Present: normal inspection Respiratory exam: Present: normal lung sounds bilaterally Cardiovascular Exam: Present: regular rate GI/Abdominal exam: Present: soft. Absent: distended, tenderness, guarding, rebound, rigid Extremities exam: Present: normal inspection, other (Full active range of motion of bilateral upper lower extremities. Upon palpation no tenderness, crepitus, step-off or obvious deformity.) Back exam: Present: other (No midline spinal tenderness to palpation.) Neurological exam: Present: alert, oriented X3 Skin exam: Present: warm, dry Course Vital Signs 09/07/23 09/07/23 09/07/23 20:32 20:43 21:15 Temperature 98.4 F Pulse Rate 74 72 72 Respiratory 17 18 19 Rate Blood Pressure 175/137 138/113 128/56 O2 Sat by Pulse 98 99 98 Oximetry 09/07/23 09/07/23 22:18 23:00 Temperature Pulse Rate 80 67 Respiratory 20 18 Rate Blood Pressure 119/62 124/96 O2 Sat by Pulse 96 95 Oximetry Medical Decision Making - Medical Decision Making Was pt. sent in by a medical professional or institution (, PA, AUTOMATED LOGISTICS SPECIALIST, urgent care, hospital, or senior living...) When possible be specific @ -No Did you speak to anyone other than the patient for history (EMS, parent, family, police, friend...)? What history was obtained from this source @ -No Did you review nursing and triage notes (agree or disagree)? Why? @ -I reviewed and agree with nursing and triage notes Were old charts reviewed (outside hosp., previous admission, EMS record, old EKG, old radiological studies, urgent care reports/EKG's, senior living records)? Report findings @ -No old charts were reviewed Differential Diagnosis (chest pain, altered mental status, abdominal pain women, abdominal pain men, vaginal bleeding, weakness, fever, dyspnea, syncope, headache, dizziness, GI bleed, back pain, seizure, CVA, palpatations, mental health, musculoskeletal)? @ -Differential Syncope: Valvular disease, hypertrophic cardiomyopathy, pulmonary embolism, tamponade, tachycardia, bradycardia, ID, hypovolemia, hemorrhage, dissection, anemia, intracranial hemorrhage, seizure, hypoglycemia, carbon monoxide poisoning, this is not meant to be an all-inclusive list. EKG interpreted by me (3pts min.). @ -EKG interpreted by me showing a sinus rhythm with a right bundle branch block at [address] or T wave changes. VA 203, QRS 176, QT/QTc 441/471. Similar to prior. X-rays interpreted by me (1pt min.). @ -X-ray of the left knee and chest interpreted me which revealed no evidence of acute finding. CT interpreted by me (1pt min.). @ -CT brain and cervical spine interpreted me which revealed no evidence of acute finding. U/S interpreted by me (1pt. min.). @ -None done What testing was considered but not performed or refused? (CT, X-rays, U/S, labs)? Why? @ -None What meds were considered but not given or refused? Why? @ -None Did you discuss the management of the patient with other professionals (professionals i.e. , PA, AUTOMATED LOGISTICS SPECIALIST, lab, RT, psych nurse, social sciences department chair, bankruptcy paralegal, teacher, surface to air weapons officer, counseling case manager)? Give summary @ -No Was smoking cessation discussed for >3mins.? @ -No Was critical care preformed (if so, how long)? @ -No Were there social determinants of health that impacted care today? How? (Homelessness, low income, unemployed, alcoholism, drug addiction, transportation, low edu. Level, literacy, decrease access to med. care, long term, rehab)? @ -No Was there de-escalation of care discussed even if they declined (Discuss DNR or withdrawal of care, Hospice)? DNR status @ -No What co-morbidities impacted this encounter? (DM, HTN, Smoking, COPD, CAD, Cancer, CVA, ARF, Chemo, Hep., AIDS, mental health diagnosis, sleep apnea, morbid obesity)? @ -Obesity, history of seizures, hyperlipidemia. Was patient admitted / discharged? Hospital course, mention meds given and route, prescriptions, significant lab abnormalities, going to OR and other pertinent info. @ -Discharge 57-year-old female with history of syncope recently worked up here last month for this and discharged from a cardiac standpoint presenting to the ED with complaints of syncopal episode in which she hit her head and injured her left knee. Laboratory studies reviewed. CBC CMP largely unremarkable. Troponin undetectable. Imaging studies reviewed which revealed no evidence of acute finding. Patient discharged home in stable condition. Discussed return precautions with patient verbalized agreement Undiagnosed new problem with uncertain prognosis? @ -No Drug Therapy requiring intensive monitoring for toxicity (Heparin, Nitro, Insulin, Cardizem)? @ -No Were any procedures done? @ -No Diagnosis/symptom? @ -Syncope Acute, or Chronic, or Acute on Chronic? @ -Acute Uncomplicated (without systemic symptoms) or Complicated (systemic symptoms)? @ -Uncomplicated Side effects of treatment? @ -No Exacerbation, Progression, or Severe Exacerbation? @ -No Poses a threat to life or bodily function? How? (Chest pain, USA, ID, pneumonia, PE, COPD, DKA, ARF, appy, cholecystitis, CVA, Diverticulitis, Homicidal, Suicidal, threat to staff... and all critical care pts) @ -No - Lab Data Result diagrams: 09/07/23 21:11 09/07/23 21:11 Lab Results 09/07/23 09/07/23 09/07/23 Range/Units 21:11 21:11 21:11 WBC 5.9 (3.8-10.6) k/uL RBC 4.40 (3.80-5.40) m/uL Hgb 13.1 (11.4-16.0) gm/dL Hct 39.9 (34.0-46.0) % MCV 90.7 (80.0-100.0) fL MCH 29.8 (25.0-35.0) pg MCHC 32.9 (31.0-37.0) g/dL RDW 14.0 (11.5-15.5) % Plt Count 244 (150-450) k/uL MPV 7.8 Neutrophils % 70 % Lymphocytes % 23 % Monocytes % 4 % Eosinophils % 2 % Basophils % 0 % Neutrophils # 4.1 (1.3-7.7) k/uL Lymphocytes # 1.4 (1.0-4.8) k/uL Monocytes # 0.2 (0-1.0) k/uL Eosinophils # 0.1 (0-0.7) k/uL Basophils # 0.0 (0-0.2) k/uL PT 9.8 L (10.0-12.5) sec INR 0.9 (<1.2) APTT 24.3 (22.0-30.0) sec Sodium 141 (137-145) mmol/L Potassium 4.6 (3.5-5.1) mmol/L Chloride 108 H (98-107) mmol/L Carbon Dioxide 28 (22-30) mmol/L Anion Gap 5 mmol/L BUN 19 H (7-17) mg/dL Creatinine 0.77 (0.52-1.04) mg/dL Est GFR (CKD-EPI)AfAm >90 (>60 ml/min/1.73 sqM) Est GFR (CKD-EPI)NonAf 86 (>60 ml/min/1.73 sqM) Glucose 97 (74-99) mg/dL Calcium 9.3 (8.4-10.2) mg/dL Magnesium 2.0 (1.6-2.3) mg/dL Total Bilirubin 0.5 (0.2-1.3) mg/dL AST 26 (14-36) U/L ALT 18 (4-34) U/L Alkaline Phosphatase 165 H (38-126) U/L Troponin I (0.000-0.034) ng/mL Total Protein 6.8 (6.3-8.2) g/dL Albumin 4.0 (3.5-5.0) g/dL 09/07/23 Range/Units 21:11 WBC (3.8-10.6) k/uL RBC (3.80-5.40) m/uL Hgb (11.4-16.0) gm/dL Hct (34.0-46.0) % MCV (80.0-100.0) fL MCH (25.0-35.0) pg MCHC (31.0-37.0) g/dL RDW (11.5-15.5) % Plt Count (150-450) k/uL MPV Neutrophils % % Lymphocytes % % Monocytes % % Eosinophils % % Basophils % % Neutrophils # (1.3-7.7) k/uL Lymphocytes # (1.0-4.8) k/uL Monocytes # (0-1.0) k/uL Eosinophils # (0-0.7) k/uL Basophils # (0-0.2) k/uL PT (10.0-12.5) sec INR (<1.2) APTT (22.0-30.0) sec Sodium (137-145) mmol/L Potassium (3.5-5.1) mmol/L Chloride (98-107) mmol/L Carbon Dioxide (22-30) mmol/L Anion Gap mmol/L BUN (7-17) mg/dL Creatinine (0.52-1.04) mg/dL Est GFR (CKD-EPI)AfAm (>60 ml/min/1.73 sqM) Est GFR (CKD-EPI)NonAf (>60 ml/min/1.73 sqM) Glucose (74-99) mg/dL Calcium (8.4-10.2) mg/dL Magnesium (1.6-2.3) mg/dL Total Bilirubin (0.2-1.3) mg/dL AST (14-36) U/L ALT (4-34) U/L Alkaline Phosphatase (38-126) U/L Troponin I <0.012 (0.000-0.034) ng/mL Total Protein (6.3-8.2) g/dL Albumin (3.5-5.0) g/dL Disposition Clinical Impression: Syncope Disposition: HOME SELF-CARE Condition: Good Instructions (If sedation given, give patient instructions): Syncope (ED) Additional Instructions: Please return to the Emergency Department if symptoms worsen or any other concerns. Please follow-up with your PCP. Is patient prescribed a controlled substance at d/c from ED?: No Referrals: Maisha Hammonds MD [Primary Care Provider] - 1-2 days Time of Disposition: 23:50
[2023-09-08] MEDS: HYDROmorphone 0.5 MG/0.5 ML SYRINGE IVP STA (00:18)
[2023-09-08] MEDS: KETOROLAC 15 MG/ML 1 ML VIAL IVP STA (00:19)
[2023-09-08 00:38] VITALS: BP 127/70; PULSE 68; RESP 17
== END 2023-09-08 00:37 | disposition home or self-care (01) ==
LOC: EC 20:31
DX: R55 Syncope and collapse (principal); E66.9 Obesity, unspecified; Z68.34 Body mass index [BMI] 34.0-34.9, adult; Z88.5 Allergy status to narcotic agent; Z88.0 Allergy status to penicillin; Z91.041 Radiographic dye allergy status; Z88.1 Allergy status to other antibiotic agents; Z88.8 Allergy status to other drugs, medicaments and biological substances
CPT/HCPCS: 93005; 80053; 83735; 84484; 85025; 85610; 85730; 73562; 71046; 72125; 70450; 99285; 96374; 96375 ×2; 96376; J2405; J1170; 36415

== ENCOUNTER → 2023-09-20 | Outpatient (CLI) | payer OTHER ==
[2023-09-20 14:19] VITALS: BP 112/51; PULSE 78; RESP 12; TEMP 98.1
--- NOTE | 2023-09-20 16:30 | P.SLEEP ---
History of Present Illness H&P Date: 09/20/23 57-year-old female patient, experiencing excessive hypersomnia sleepiness and the patient is coming in for further investigation regarding possibility of obstructive sleep apnea. She has an [place] score of 12. She has history of soft snoring. She does have excessive restlessness in lower extremities and she has a constant urge to move her legs. No episodes of waking up choking or gasping for air. No nocturia. No grinding of the teeth. No sleepwalking or sleep talking. No panic attacks or palpitations or heartburn. The patient wakes up tired during the day. She goes to bed between 11 PM and 1 AM when she gets up from bed at around 9:30 AM in the morning. She maintains the same sleep schedule over the weekends. She wakes up tired and feels sleepy during the day. She has issues with memory and concentration. For that reason, the patient was referred to me for further workup. She sleeps on her side. She watches television in her bedroom. She takes around 1 or 2 naps during the day. She nods off easily while watching television. Her weight has remained stable without any recent weight gain. No sleep dialysis. No hallucinations. No cataplexy. No head trauma. No substance abuse. She has previous history of colon cancer and she has undergone colectomy followed by systemic chemotherapy and her disease in remission. She also has stress-induced seizures, followed up by neurology and the patient is on Lamictal. 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 She has had balance issues and falls. On 1 occasion, she has also suffered a traumatic brain injury related to the fall. Review of Systems All systems: negative (14 point review of system was done and the positive findings are mentioned above in history of blood illness. 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 BLOOD TRANSFUSIONS FOR LOW HGB. uterine and colon ca History of Any Multi-Drug Resistant Organisms: MRSA Date of last positivie culture/infection: 08/10/19 MDRO Source:: URINE Past Surgical History: Appendectomy, Bowel Resection, Cholecystectomy, Ear Surgery, Hysterectomy, Orthopedic Surgery Additional Past Surgical History / Comment(s): frantz knee arthroscopy, hiatal hernia surgery, rt ear surgery to remove middle ear, lymph node biopsy right armpit. loop recorder Past Anesthesia/Blood Transfusion Reactions: Postoperative Nausea & Vomiting (PONV) Additional Past Anesthesia/Blood Transfusion Reaction / Comment(s): Pt has received blood in past without reaction. Type of Cardiac Device: Loop Device Placement Date:: 2016 states need to be removed everything fine now per patien Past Psychological History: Anxiety, Panic Disorder Additional Psychological History / Comment(s): Pt resides alone. Her mother is her caregiver. She uses no assistive device. She does not drive. Smoking Status: Never smoker Past Alcohol Use History: None Reported Past Drug Use History: None Reported Additional Drug Use History / Comment(s): tried edibles for sleep ( chocolate), pt aware not to use 24 hrs before procedure. - Past Family History Mother Family Medical History: Coronary Artery Disease (CAD), Diabetes Mellitus Additional Family Medical History / Comment(s): . Father Family Medical History: No Reported History Additional Family Medical History / Comment(s): Father is healthy Medications and Allergies Home Medications Medication Instructions Recorded Confirmed Type lamoTRIgine [LaMICtal] 200 mg PO BID 09/26/18 09/20/23 History Sertraline [Zoloft] 150 mg PO DAILY 03/22/22 09/20/23 History diazePAM [Valium] 5 mg PO HS 08/02/23 09/20/23 History Rosuvastatin [Crestor] 20 mg PO HS #30 tablet 08/03/23 Rx Ibuprofen [Motrin] 800 mg PO Q6HR #20 tab 09/08/23 Rx Allergies Allergy/AdvReac Type Severity Reaction Status Date / Time cephalexin [From Keflex] Allergy Rash/Hives Verified 08/02/23 15:13 codeine Allergy Rash/Hives Verified 08/02/23 15:13 erythromycin base Allergy Rash/Hives Verified 08/02/23 15:13 gadobutrol [From Gadavist] Allergy Anaphylaxis Verified 08/02/23 15:13 Gadolinium-Containing Allergy Anaphylaxis Verified 08/02/23 15:13 Contrast Medi iodine Allergy Anaphylaxis Verified 08/02/23 15:13 Penicillins Allergy Anaphylaxis Verified 08/02/23 15:13 vancomycin Allergy Anaphylaxis Verified 08/02/23 15:13 azithromycin AdvReac red face Verified 08/02/23 15:13 diphenhydramine AdvReac Confusion Verified 08/02/23 15:13 [From Benadryl] lorazepam [From Ativan] AdvReac Hallucinati Verified 08/02/23 15:13 ons Physical Exam Vitals: Vital Signs Temp Pulse Resp BP Pulse Ox 09/20/23 14:17 98.1 F 78 12 112/51 96 Intake and Output 09/20/23 09/20/23 09/20/23 06:59 14:59 22:59 Other: Weight 86.183 kg The patient appeared well nourished and normally developed. Vital signs as documented. Head exam is unremarkable. No scleral icterus or corneal arcus noted. Neck is without jugular venous distension, thyromegaly, or carotid bruits. The patient is a Mallampati class IV with significant crowding of the posterior pharynx. Carotid upstrokes are brisk bilaterally. Lungs are clear to auscultation and percussion. Cardiac exam reveals the PMI to be normally sized and situated. Rhythm is regular. First and second heart sounds normal. No murmurs, rubs or gallops. Abdominal exam reveals normal bowel sounds, no masses, no organomegaly and no aortic enlargement. Extremities are nonedematous and both femoral and pedal pulses are normal. Examination of the skin revealed no evidence of significant rashes, suspicious appearing nevi or other concerning lesions. Neurologically, the patient is awake and alert and the patient does not have any focal neurological deficit. Cranial nerves are essentially intact. Assessment and Plan Plan: Chronic hypersomnia, currently under investigation. The patient has an [place] score of 12. Rule out underlying sleep breathing disorder. Rule out underlying restless leg syndrome. Rule out nocturnal seizures. 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 Sleep Note - Sleep Data ESS Total: 12 - Sleep Note Sleep Note: Temperature: 98.1 F Pulse Rate: 78 Respiratory Rate: 12 Blood Pressure: 112/51 SpO2: 96 Height: 5 ft 2 in Weight: 86.183 kg BMI: Neck Circumference: 16
== END ==
LOC: 3 N SLEEP 13:10
PROVIDERS: ATTEND Internal Medicine Critical Care Medicine
DX: G47.10 Hypersomnia, unspecified (principal); G25.81 Restless legs syndrome; R56.9 Unspecified convulsions; H91.91 Unspecified hearing loss, right ear; R29.6 Repeated falls; Z87.820 Personal history of traumatic brain injury; Z85.038 Personal history of other malignant neoplasm of large intestine; Z98.890 Other specified postprocedural states; Z90.49 Acquired absence of other specified parts of digestive tract; Z92.21 Personal history of antineoplastic chemotherapy; Z88.1 Allergy status to other antibiotic agents; Z88.5 Allergy status to narcotic agent; Z88.8 Allergy status to other drugs, medicaments and biological substances; Z88.0 Allergy status to penicillin; Z91.041 Radiographic dye allergy status
CPT/HCPCS: 99211

== ENCOUNTER 2023-09-28 19:39 | Outpatient (CLI) | payer OTHER ==
--- NOTE | 2023-10-16 22:02 | P.PCN ---
Date of Procedure: 09/28/23 Operative Findings: Polysomnography report Date of service is 09/28/2023 History 57-year-old female patient, experiencing excessive hypersomnia sleepiness and the patient is coming in for further investigation regarding possibility of obstructive sleep apnea. She has an Grants score of 12. She has history of soft snoring. She does have excessive restlessness in lower extremities and she has a constant urge to move her legs. No episodes of waking up choking or gasping for air. No nocturia. No grinding of the teeth. No sleepwalking or sleep talking. No panic attacks or palpitations or heartburn. The patient wakes up tired during the day. She goes to bed between 11 PM and 1 AM when she gets up from bed at around 9:30 AM in the morning. She maintains the same sleep schedule over the weekends. She wakes up tired and feels sleepy during the day. She has issues with memory and concentration. For that reason, the patient was referred to me for further workup. She sleeps on her side. She watches television in her bedroom. She takes around 1 or 2 naps during the day. She nods off easily while watching television. Her weight has remained stable without any recent weight gain. No sleep dialysis. No hallucinations. No cataplexy. No head trauma. No substance abuse. She has previous history of colon cancer and she has undergone colectomy followed by systemic chemotherapy and her disease in remission. She also has stress-induced seizures, followed up by neurology and the patient is on Lamictal. 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 She has had balance issues and falls. On 1 occasion, she has also suffered a traumatic brain injury related to the fall. Physical findings weight is 190 with a body mass index of 35.9 Technical description The patient was studied using a standard complex polysomnography protocol that included recording of the 2 EKG, Central, occipital and frontal EEG, right and left outer canthus EOG, submental EMG, right and left anterior tibialis EMG, respiratory airflow by thermocouple and or pressure/flow transducer, respiratory efforts by abdominal and thoracic PVDF belts, oxygen saturation by cable oximetry. Position by observation synchronized the PSG. Equipment used: [employer]. Sleep characteristics The total recording duration was 414.5 minutes. The total sleep time was 361.0 minutes. The overall sleep efficiency was 87.1%. The latency to sleep onset was 41.5 minutes. The latency to REM sleep was 221.5 minutes. The sleep architecture was catheterized by 3.9% stage I, 87.7% stage II, 0% stage III, 8.4% REM sleep. The wake after sleep onset time was 10.5 minutes. The total a rousal index was 5.8 Respiratory analysis The patient had a total of 20 obstructive events of which 2 were obstructive apneas, 0 mixed apneas, 18 were obstructive hypopneas and the resulting AHI was 3.0. The baseline pulse ox was 97% while awake. The minimum pulse ox was 87% and the patient was able to maintain an oxygen saturation above 88% throughout the sleep study. Sleep continuity summary A total of 35 arousals were encountered with an index of 5.8. The respiratory arousal index was 0.2. Periodic limb movements The patient had a total of 146 periodic limb movements with a index of 24.3. There were only 8 periodic limb movement activity with arousals with an index of 1.3 Cardiac summary The average heart rate was 62 with a minimum heart rate of 58 and a maximum heart of 66 Assessment Primary snoring without evidence of any significant sleep breathing disorder. The patient's AHI was 3.0 Abnormal sleep architecture with overexpression of stage II sleep with excessive spindles consistent with the intake of Valium Mild periodic limb movement activity, not causing any significant arousals or sleep fragmentation No significant nocturnal oxygen desaturations Chronic hypersomnia, currently under investigation. The patient has an Grants score of 12. Likely related to comorbidities. The patient has history of colon cancer status post colectomy followed by systemic chemotherapy and the patient is currently in remission. Symptoms of restless leg syndrome Seizures, stated to be stress-induced and the patient is currently on a combination of Lamictal and Valium Deafness in the right ear related to previous infections History of traumatic brain injury related to fall Frequent falls and difficulty with balance Plan Treat comorbidities. No evidence of any significant sleep breathing disorder. No evidence of any significant periodic limb movement activity or s sleep fragmentation secondary to restless leg syndrome/periodic limb movement activity. No evidence of any nocturnal seizures.
== END 2023-09-29 05:50 | disposition home or self-care (01) ==
LOC: 3 N SLEEP 19:39
PROVIDERS: ATTEND Internal Medicine Critical Care Medicine
DX: G47.33 Obstructive sleep apnea (adult) (pediatric) (principal); G47.61 Periodic limb movement disorder; R29.6 Repeated falls; H91.91 Unspecified hearing loss, right ear; F44.5 Conversion disorder with seizures or convulsions; G25.81 Restless legs syndrome; G47.10 Hypersomnia, unspecified; Z85.038 Personal history of other malignant neoplasm of large intestine; Z90.49 Acquired absence of other specified parts of digestive tract; Z87.820 Personal history of traumatic brain injury; Z88.1 Allergy status to other antibiotic agents; Z88.5 Allergy status to narcotic agent; Z88.8 Allergy status to other drugs, medicaments and biological substances; Z91.041 Radiographic dye allergy status
CPT/HCPCS: 95810

== ENCOUNTER 2023-10-04 05:52 | Observation (INO) | payer OTHER ==
[2023-10-04 06:13] LABS: Glucose,Whole Blood 112 mg/dL (70-110)
[2023-10-04 06:29] LABS: Basophils % (A) 0 %; Eosinophils # (A) 0.1 k/uL (0-0.7); Eosinophils % (A) 2 %; HCT 41.7 % (34.0-46.0); HGB 13.4 gm/dL (11.4-16.0); Lymphocytes # (A) 2.3 k/uL (1.0-4.8); Lymphocytes % (A) 29 %; MCH 29.2 pg (25.0-35.0); MCV 91.2 fL (80.0-100.0); Mean Platelet Volume 7.6; Monocytes # (A) 0.3 k/uL (0-1.0); Monocytes % (A) 4 %; Neutrophils # (A) 5.1 k/uL (1.3-7.7); Neutrophils % (A) 64 %; Platelet Count 278 k/uL (150-450); RBC 4.57 m/uL (3.80-5.40); RDW 13.7 % (11.5-15.5)
[2023-10-04 06:36] LABS: ALT 22 U/L (4-34); AST 33 U/L (14-36); African American GFR (CKD) >90 (>60 ml/min/1.73 sqM); Albumin 4.4 g/dL (3.5-5.0); Alcohol <10 mg/dL; Alkaline Phosphatase 204 U/L (38-126); Anion Gap 8 mmol/L; Blood Urea Nitrogen 22 mg/dL (7-17); Calcium 9.7 mg/dL (8.4-10.2); Carbon Dioxide 28 mmol/L (22-30); Chloride 107 mmol/L (98-107); Glucose 106 mg/dL (74-99); Magnesium 2.1 mg/dL (1.6-2.3); Non-African American GFR(CKD) 82 (>60 ml/min/1.73 sqM); Potassium 4.3 mmol/L (3.5-5.1); Sodium 143 mmol/L (137-145); Total Bilirubin 0.4 mg/dL (0.2-1.3); Total Protein 7.4 g/dL (6.3-8.2)
[2023-10-04 06:44] LABS: NT-Pro-B-Type Natriuretic Pept 872 pg/mL
[2023-10-04 06:45] LABS: INR 0.8 (<1.2); Partial Thromboplastin Time 24.5 sec (22.0-30.0); Prothrombin Time 9.5 sec (10.0-12.5)
--- NOTE | 2023-10-04 06:48 | CT ---
EXAMINATION TYPE: CT brain wo con DATE OF EXAM: 10/04/2023 HISTORY: pt arrives to ED from home for L sided chest pain rad to lower back. pt reports SOB. Synco pal yesterday at home. + hit head. No thinners. CT DLP: 1074.5 mGycm. Automated Exposure Control for Dose Reduction was Utilized. TECHNIQUE: CT scan of the head is performed without contrast. COMPARISON: Prior CT brain September 07, 2023. FINDINGS: There is no acute intracranial hemorrhage or midline shift identified. Ventricles and sul ci within normal limits in size for patient's age. Rivera-white matter differentiation maintained. The calvarium is intact. Right-sided mastoid surgical change is redemonstrated. The globes are intact an d the visualized sinuses are clear. IMPRESSION: No acute intracranial hemorrhage or midline shift. No significant change from most recen t prior CT.
--- NOTE | 2023-10-04 06:49 | XR ---
EXAMINATION TYPE: XR chest 2V DATE OF EXAM: 10/04/2023 COMPARISON: Chest x-ray September 07, 2023 HISTORY: Chest pain TECHNIQUE: Frontal and lateral views of the chest are obtained. FINDINGS: There is no suspicious focal air space opacity, pleural effusion, or pneumothorax seen. Mi ld Cardiomegaly with overlying loop recorder redemonstrated. The osseous structures are intact. Cho lecystectomy clips are noted on lateral view. IMPRESSION: Cardiomegaly without acute pulmonary process. No significant change from most recent prio r.
--- NOTE | 2023-10-04 06:57 | ED ---
General Adult HPI - General Chief complaint: Chest Pain Stated complaint: Chest Pain Time Seen by Provider: 10/04/23 05:59 Source: patient, family, EMS, RN notes reviewed Mode of arrival: EMS Limitations: no limitations - History of Present Illness Initial comments: This is a 57-year-old female presents emergency department via EMS from home for evaluation of chest discomfort, syncopal episode. Family states she had frequent syncopal episodes which she has had in the past and states that she started complaining some just chest discomfort yesterday and this morning so decided to call EMS. She states she feels like she can have a seizure she takes Lyrica for seizures she has not had a recent seizure. Patient denies any abdominal pain no back pain no focal weakness is stated she is passed out and was confused after but comes to. - Related Data Home Medications Medication Instructions Recorded Confirmed lamoTRIgine [LaMICtal] 200 mg PO BID 09/26/18 10/04/23 Sertraline [Zoloft] 150 mg PO DAILY 03/22/22 10/04/23 diazePAM [Valium] 10 mg PO HS 08/02/23 10/04/23 Dicyclomine [Bentyl] 10 mg PO BID 10/04/23 10/04/23 Enalapril [Vasotec] 5 mg PO DAILY 10/04/23 10/04/23 Ergocalciferol [Vitamin D2 (1250 1,250 mcg PO WEEKLY 10/04/23 10/04/23 Mcg = 31086 Iu)] Allergies Allergy/AdvReac Type Severity Reaction Status Date / Time cephalexin [From Keflex] Allergy Rash/Hives Verified 10/04/23 09:22 codeine Allergy Rash/Hives Verified 10/04/23 09:22 erythromycin base Allergy Rash/Hives Verified 10/04/23 09:22 gadobutrol [From Gadavist] Allergy Anaphylaxis Verified 10/04/23 09:22 Gadolinium-Containing Allergy Anaphylaxis Verified 10/04/23 09:22 Contrast Medi iodine Allergy Anaphylaxis Verified 10/04/23 09:22 Penicillins Allergy Anaphylaxis Verified 10/04/23 09:22 vancomycin Allergy Anaphylaxis Verified 10/04/23 09:22 azithromycin AdvReac red face Verified 10/04/23 09:22 diphenhydramine AdvReac Confusion Verified 10/04/23 09:22 [From Benadryl] lorazepam [From Ativan] AdvReac Hallucinati Verified 10/04/23 09:22 ons Review of Systems ROS Statement: Those systems with pertinent positive or pertinent negative responses have been documented in the HPI. ROS Other: All systems not noted in ROS Statement are negative. 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 BLOOD TRANSFUSIONS FOR LOW HGB. uterine and colon ca History of Any Multi-Drug Resistant Organisms: MRSA Date of last positivie culture/infection: 08/10/19 MDRO Source:: URINE Past Surgical History: Appendectomy, Bowel Resection, Cholecystectomy, Ear Surgery, Hysterectomy, Orthopedic Surgery Additional Past Surgical History / Comment(s): frantz knee arthroscopy, hiatal hernia surgery, rt ear surgery to remove middle ear, lymph node biopsy right armpit. loop recorder Past Anesthesia/Blood Transfusion Reactions: Postoperative Nausea & Vomiting (PONV) Additional Past Anesthesia/Blood Transfusion Reaction / Comment(s): Pt has received blood in past without reaction. Type of Cardiac Device: Loop Device Placement Date:: 2016 states need to be removed everything fine now per patien Past Psychological History: Anxiety, Panic Disorder Smoking Status: Never smoker Past Alcohol Use History: None Reported Past Drug Use History: None Reported - Past Family History Mother Family Medical History: Coronary Artery Disease (CAD), Diabetes Mellitus Additional Family Medical History / Comment(s): . Father Family Medical History: No Reported History Additional Family Medical History / Comment(s): Father is healthy General Exam Limitations: no limitations General appearance: alert, in no apparent distress Head exam: Present: atraumatic, normocephalic, normal inspection Neck exam: Present: normal inspection, full ROM. Absent: tenderness, meningismus, lymphadenopathy Respiratory exam: Present: normal lung sounds bilaterally. Absent: respiratory distress, wheezes, rales, rhonchi, stridor Cardiovascular Exam: Present: regular rate, normal rhythm, normal heart sounds. Absent: systolic murmur, diastolic murmur, rubs, gallop, clicks GI/Abdominal exam: Present: soft, normal bowel sounds. Absent: distended, tenderness, guarding, rebound, rigid Neurological exam: Present: alert, oriented X3 Course Vital Signs 10/04/23 10/04/23 10/04/23 05:52 06:11 07:18 Temperature 97.6 F Pulse Rate 89 84 Respiratory 19 20 22 Rate Blood Pressure 201/94 179/112 O2 Sat by Pulse 99 96 Oximetry 10/04/23 07:30 Temperature Pulse Rate 64 Respiratory 22 Rate Blood Pressure 161/93 O2 Sat by Pulse Oximetry EKG Findings - EKG Comments: EKG Findings:: EKG performed at 5: 53 sinus rhythm first-degree block rate of 89 [place] 221 QRS 166 QT/QTc 411/458 - EKG Results: EKG: interpreted by HERNAN Medical Decision Making - Medical Decision Making was pt. sent in by a medical professional or institution (, PA, WET MACHINE OPERATOR, urgent care, hospital, or senior care...) When possible be specific @ -No Did you speak to anyone other than the patient for history (EMS, parent, family, police, friend...)? What history was obtained from this source @ -No Did you review nursing and triage notes (agree or disagree)? Why? @ -I reviewed and agree with nursing and triage notes Were old charts reviewed (outside hosp., previous admission, EMS record, old EKG, old radiological studies, urgent care reports/EKG's, senior care records)? Report findings @ -Reviewed heart cath from August Differential Diagnosis (chest pain, altered mental status, abdominal pain women, abdominal pain men, vaginal bleeding, weakness, fever, dyspnea, syncope, headache, dizziness, GI bleed, back pain, seizure, CVA, palpatations, mental health, musculoskeletal)? @ -Differential Chest Pain: Stable Angina, Unstable Angina, STEMI, NSTEMI Aortic Dissection, Pneumothorax, Musculoskeletal, Esophageal Spasm GERD, Cholecystitis, Pancreatitis, Zoster, this is not meant to be an all-inclusive list. EKG interpreted by me (3pts min.). @ -As above X-rays interpreted by me (1pt min.). @ -Shows no acute cardiopulmonary process CT interpreted by me (1pt min.). @ -CT head showed no acute intracranial hemorrhage, mass effect or acute process U/S interpreted by me (1pt. min.). @ -None done What testing was considered but not performed or refused? (CT, X-rays, U/S, labs)? Why? @ -None What meds were considered but not given or refused? Why? @ -None Did you discuss the management of the patient with other professionals (professionals i.e. , PA, WET MACHINE OPERATOR, lab, RT, psych nurse, social science instructor, emergency room physician assistant, teacher, credit risk officer, case management assistant)? Give summary @ -Dr. Sheet for admission covering for Dr. Hammonds Was smoking cessation discussed for >3mins.? @ -No Was critical care preformed (if so, how long)? @ -No Were there social determinants of health that impacted care today? How? (Homelessness, low income, unemployed, alcoholism, drug addiction, transportation, low edu. Level, literacy, decrease access to med. care, group home, rehab)? @ -No Was there de-escalation of care discussed even if they declined (Discuss DNR or withdrawal of care, Hospice)? DNR status @ -No What co-morbidities impacted this encounter? (DM, HTN, Smoking, COPD, CAD, Cancer, CVA, ARF, Chemo, Hep., AIDS, mental health diagnosis, sleep apnea, morbid obesity)? @ -CAD, seizures Was patient admitted / discharged? Hospital course, mention meds given and route, prescriptions, significant lab abnormalities, going to OR and other pertinent info. @ -Admitted patient presented after multiple syncopal episodes, complaints of chest pain. Initial workup shows evidence of UTI. Patient does have some periods of altered mental status CT was obtained showing no acute process. Given multiple complaint and history patient admitted on IV antibiotics, consult to neurology, cardiology. Patient will have repeat troponin. Undiagnosed new problem with uncertain prognosis? @ -No Drug Therapy requiring intensive monitoring for toxicity (Heparin, Nitro, Insulin, Cardizem)? @ -No Were any procedures done? @ -No Diagnosis/symptom? @ -Chest pain, syncope, altered mental status, UTI Acute, or Chronic, or Acute on Chronic? @ -Acute Uncomplicated (without systemic symptoms) or Complicated (systemic symptoms)? @ -Complicated Side effects of treatment? @ -No Exacerbation, Progression, or Severe Exacerbation? @ -No Poses a threat to life or bodily function? How? (Chest pain, [place], [place], pneumonia, PE, COPD, DKA, ARF, appy, cholecystitis, CVA, Diverticulitis, Homicidal, Suicidal, threat to staff... and all critical care pts) @ -Yes possible ACS, may lead to cardiac arrest - Lab Data Result diagrams: 10/04/23 06:05 10/04/23 06:05 Lab Results 10/04/23 10/04/23 10/04/23 Range/Units 06:05 06:05 06:05 WBC 8.0 (3.8-10.6) k/uL RBC 4.57 (3.80-5.40) m/uL Hgb 13.4 (11.4-16.0) gm/dL Hct 41.7 (34.0-46.0) % MCV 91.2 (80.0-100.0) fL MCH 29.2 (25.0-35.0) pg MCHC 32.0 (31.0-37.0) g/dL RDW 13.7 (11.5-15.5) % Plt Count 278 (150-450) k/uL MPV 7.6 Neutrophils % 64 % Lymphocytes % 29 % Monocytes % 4 % Eosinophils % 2 % Basophils % 0 % Neutrophils # 5.1 (1.3-7.7) k/uL Lymphocytes # 2.3 (1.0-4.8) k/uL Monocytes # 0.3 (0-1.0) k/uL Eosinophils # 0.1 (0-0.7) k/uL Basophils # 0.0 (0-0.2) k/uL PT 9.5 L (10.0-12.5) sec INR 0.8 (<1.2) APTT 24.5 (22.0-30.0) sec Sodium 143 (137-145) mmol/L Potassium 4.3 (3.5-5.1) mmol/L Chloride 107 (98-107) mmol/L Carbon Dioxide 28 (22-30) mmol/L Anion Gap 8 mmol/L BUN 22 H (7-17) mg/dL Creatinine 0.80 (0.52-1.04) mg/dL Est GFR (CKD-EPI)AfAm >90 (>60 ml/min/1.73 sqM) Est GFR (CKD-EPI)NonAf 82 (>60 ml/min/1.73 sqM) Glucose 106 H (74-99) mg/dL POC Glucose (mg/dL) (70-110) mg/dL POC Glu Sewer Hand ID Calcium 9.7 (8.4-10.2) mg/dL Magnesium 2.1 (1.6-2.3) mg/dL Total Bilirubin 0.4 (0.2-1.3) mg/dL AST 33 (14-36) U/L ALT 22 (4-34) U/L Alkaline Phosphatase 204 H (38-126) U/L Troponin I (0.000-0.034) ng/mL NT-Pro-B Natriuret Pep 872 pg/mL Total Protein 7.4 (6.3-8.2) g/dL Albumin 4.4 (3.5-5.0) g/dL Urine Color Urine Appearance (Clear) Urine pH (5.0-8.0) Ur Specific [place] (1.001-1.035) Urine Protein (Negative) Urine Glucose (UA) (Negative) Urine Ketones (Negative) Urine Blood (Negative) Urine Nitrite (Negative) Urine Bilirubin (Negative) Urine Urobilinogen (<2.0) mg/dL Ur Leukocyte Esterase (Negative) Urine RBC (0-5) /hpf Urine WBC (0-5) /hpf Ur Squamous Epith Cells (0-4) /hpf Urine Mucus (None) /hpf Urine Opiates Screen (NotDetected) Ur Oxycodone Screen (NotDetected) Urine Methadone Screen (NotDetected) Ur Barbiturates Screen (NotDetected) U Tricyclic Antidepress (NotDetected) Ur Phencyclidine Scrn (NotDetected) Ur Amphetamines Screen (NotDetected) U Methamphetamines Scrn (NotDetected) U Benzodiazepines Scrn (NotDetected) Urine Cocaine Screen (NotDetected) U Marijuana (THC) Screen (NotDetected) Serum Alcohol <10 mg/dL 10/04/23 10/04/23 10/04/23 Range/Units 06:05 06:12 07:11 WBC (3.8-10.6) k/uL RBC (3.80-5.40) m/uL Hgb (11.4-16.0) gm/dL Hct (34.0-46.0) % MCV (80.0-100.0) fL MCH (25.0-35.0) pg MCHC (31.0-37.0) g/dL RDW (11.5-15.5) % Plt Count (150-450) k/uL MPV Neutrophils % % Lymphocytes % % Monocytes % % Eosinophils % % Basophils % % Neutrophils # (1.3-7.7) k/uL Lymphocytes # (1.0-4.8) k/uL Monocytes # (0-1.0) k/uL Eosinophils # (0-0.7) k/uL Basophils # (0-0.2) k/uL PT (10.0-12.5) sec INR (<1.2) APTT (22.0-30.0) sec Sodium (137-145) mmol/L Potassium (3.5-5.1) mmol/L Chloride (98-107) mmol/L Carbon Dioxide (22-30) mmol/L Anion Gap mmol/L BUN (7-17) mg/dL Creatinine (0.52-1.04) mg/dL Est GFR (CKD-EPI)AfAm (>60 ml/min/1.73 sqM) Est GFR (CKD-EPI)NonAf (>60 ml/min/1.73 sqM) Glucose (74-99) mg/dL POC Glucose (mg/dL) 112 H (70-110) mg/dL POC Glu Sewer Hand ID [place] Calcium (8.4-10.2) mg/dL Magnesium (1.6-2.3) mg/dL Total Bilirubin (0.2-1.3) mg/dL AST (14-36) U/L ALT (4-34) U/L Alkaline Phosphatase (38-126) U/L Troponin I <0.012 (0.000-0.034) ng/mL NT-Pro-B Natriuret Pep pg/mL Total Protein (6.3-8.2) g/dL Albumin (3.5-5.0) g/dL Urine Color Urine Appearance (Clear) Urine pH (5.0-8.0) Ur Specific [place] (1.001-1.035) Urine Protein (Negative) Urine Glucose (UA) (Negative) Urine Ketones (Negative) Urine Blood (Negative) Urine Nitrite (Negative) Urine Bilirubin (Negative) Urine Urobilinogen (<2.0) mg/dL Ur Leukocyte Esterase (Negative) Urine RBC (0-5) /hpf Urine WBC (0-5) /hpf Ur Squamous Epith Cells (0-4) /hpf Urine Mucus (None) /hpf Urine Opiates Screen Not Detected (NotDetected) Ur Oxycodone Screen Not Detected (NotDetected) Urine Methadone Screen Not Detected (NotDetected) Ur Barbiturates Screen Not Detected (NotDetected) U Tricyclic Antidepress Not Detected (NotDetected) Ur Phencyclidine Scrn Not Detected (NotDetected) Ur Amphetamines Screen Not Detected (NotDetected) U Methamphetamines Scrn Not Detected (NotDetected) U Benzodiazepines Scrn Detected H (NotDetected) Urine Cocaine Screen Not Detected (NotDetected) U Marijuana (THC) Screen Detected H (NotDetected) Serum Alcohol mg/dL 10/04/23 Range/Units 07:11 WBC (3.8-10.6) k/uL RBC (3.80-5.40) m/uL Hgb (11.4-16.0) gm/dL Hct (34.0-46.0) % MCV (80.0-100.0) fL MCH (25.0-35.0) pg MCHC (31.0-37.0) g/dL RDW (11.5-15.5) % Plt Count (150-450) k/uL MPV Neutrophils % % Lymphocytes % % Monocytes % % Eosinophils % % Basophils % % Neutrophils # (1.3-7.7) k/uL Lymphocytes # (1.0-4.8) k/uL Monocytes # (0-1.0) k/uL Eosinophils # (0-0.7) k/uL Basophils # (0-0.2) k/uL PT (10.0-12.5) sec INR (<1.2) APTT (22.0-30.0) sec Sodium (137-145) mmol/L Potassium (3.5-5.1) mmol/L Chloride (98-107) mmol/L Carbon Dioxide (22-30) mmol/L Anion Gap mmol/L BUN (7-17) mg/dL Creatinine (0.52-1.04) mg/dL Est GFR (CKD-EPI)AfAm (>60 ml/min/1.73 sqM) Est GFR (CKD-EPI)NonAf (>60 ml/min/1.73 sqM) Glucose (74-99) mg/dL POC Glucose (mg/dL) (70-110) mg/dL POC Glu Sewer Hand ID Calcium (8.4-10.2) mg/dL Magnesium (1.6-2.3) mg/dL Total Bilirubin (0.2-1.3) mg/dL AST (14-36) U/L ALT (4-34) U/L Alkaline Phosphatase (38-126) U/L Troponin I (0.000-0.034) ng/mL NT-Pro-B Natriuret Pep pg/mL Total Protein (6.3-8.2) g/dL Albumin (3.5-5.0) g/dL Urine Color Light Yellow Urine Appearance Clear (Clear) Urine pH 6.5 (5.0-8.0) Ur Specific [place] 1.022 (1.001-1.035) Urine Protein Negative (Negative) Urine Glucose (UA) Negative (Negative) Urine Ketones Negative (Negative) Urine Blood Negative (Negative) Urine Nitrite Negative (Negative) Urine Bilirubin Negative (Negative) Urine Urobilinogen <2.0 (<2.0) mg/dL Ur Leukocyte Esterase Large H (Negative) Urine RBC 3 (0-5) /hpf Urine WBC 42 H (0-5) /hpf Ur Squamous Epith Cells 2 (0-4) /hpf Urine Mucus Rare H (None) /hpf Urine Opiates Screen (NotDetected) Ur Oxycodone Screen (NotDetected) Urine Methadone Screen (NotDetected) Ur Barbiturates Screen (NotDetected) U Tricyclic Antidepress (NotDetected) Ur Phencyclidine Scrn (NotDetected) Ur Amphetamines Screen (NotDetected) U Methamphetamines Scrn (NotDetected) U Benzodiazepines Scrn (NotDetected) Urine Cocaine Screen (NotDetected) U Marijuana (THC) Screen (NotDetected) Serum Alcohol mg/dL Disposition Clinical Impression: AMS (altered mental status), Chest pain, Syncope, UTI (urinary tract infection) Disposition: ADMITTED IP TO THIS HOSP Condition: Fair Time of Disposition: 08:07
[2023-10-04] MEDS: LABETALOL 5 MG/ML VIAL MDV IVP STA (07:00)
[2023-10-04 07:40] LABS: Amphetamine Screen,Urine Not Detected (NotDetected); Barbiturate Screen,Urine Not Detected (NotDetected); Benzodiazepines Screen,Urine Detected (NotDetected); Cocaine Screen,Urine Not Detected (NotDetected); Methadone Screen, Urine Not Detected (NotDetected); Opiate Screen,Urine Not Detected (NotDetected); Oxycodone Screen, Urine Not Detected (NotDetected); Phencyclidine Screen,Urine Not Detected (NotDetected); Tricyclic Antidepressant,Urine Not Detected (NotDetected); Urn Cannabinoid Scrn Detected (NotDetected)
[2023-10-04 07:42] LABS: Appearance,Urine Clear (Clear); Bilirubin,Urine Negative (Negative); Blood,Urine Negative (Negative); Color,Urine Light Yellow; Glucose,Urine (UA) Negative (Negative); Ketones,Urine Negative (Negative); Leukocyte Esterase,Urine Large (Negative); Mucus,Urine Rare /hpf; Nitrite,Urine Negative (Negative); PH, Urine 6.5 (5.0-8.0); Protein,Urine Negative (Negative); RBC,Urine 3 /hpf (0-5); Specific Gravity,Urine 1.022 (1.001-1.035); Squamous Epithelial Cell,Urine 2 /hpf (0-4); Urobilinogen,Urine <2.0 mg/dL (<2.0); WBC,Urine 42 /hpf (0-5)
[2023-10-04] MEDS ORDERED: NITROGLYCERIN SL TABS 0.4 MG TAB SUBLINGUAL PRN (08:07)
[2023-10-04] MEDS: LEVOFLOXACIN 750MG-D5W PMX 750 MG in DEXTROSE/WATER 1 150ML.BAG IVPB STA (08:50)
[2023-10-04] MEDS: ASPIRIN 81 MG PO STA (08:51)
[2023-10-04] MEDS: LORazepam 2 MG/ML INJ IV STA (10:35)
[2023-10-04] MEDS: levETIRAcetam IV 500 MG/5 ML VIAL IVP STA (10:38)
--- NOTE | 2023-10-04 11:31 | P.CRDCN ---
History of Present Illness History of present illness: HISTORY OF PRESENT ILLNESS: This is a 57-year-old female with a past medical history significant for TIA, seizure disorder, and obesity. Patient does not follow with a sales administrator but w as recently seen by Dr. Martin in the hospital. We have been asked to see the patient in consultation for chest pain and syncope. Patient examined at the bedside in the emergency room. The patient appears to be a poor historian. There is no family present. Patient states that she was at home laying down when she apparently passed out. She states she does not remember much of the episode and is unsure of how long she was out. She also reports having some chest pain which she states she has been having for " a while". She is unable to elaborate on her chest discomfort. She states she is a non-smoker. Her toxicology screen was positive for marijuana and benzodiazepines. DIAGNOSTICS: - EKG reveals sinus mechanism with right bundle branch block. - Chest xray cardiomegaly without acute pulmonary process - Laboratory data: WBC 8.0. Hemoglobin 13.4. Platelet count 278. Sodium 143. Potassium 4.3. BUN 22. Creatinine 0.80. Magnesium 2.1. Troponin negative x 1. proBNP 872. - Current home cardiac medications include enalapril 5 mg daily. - Cardiac catheterization history: August 05, 2023 revealing mild to moderate nonobstructive CAD with elevated left-sided filling pressures REVIEW OF SYSTEMS: At the time of my exam: CONSTITUTIONAL: Denies fever or chills. HEENT: Denies blurred vision, vision changes, or eye pain. Denies hemoptysis CARDIOVASCULAR: Denies chest pain. Denies orthopnea. Denies PND. Denies palpitations RESPIRATORY: Denies shortness of breath. GASTROINTESTINAL: Denies abdominal pain. Denies nausea or vomiting. HEMATOLOGIC: Denies bleeding disorders. GENITOURINARY: Denies any blood in urine. SKIN: Denies pruitis. Denies rash. PHYSICAL EXAM: VITAL SIGNS: Reviewed. GENERAL: Well-developed in no acute distress. HEENT: Head is normocephalic. Pupils are equal, round. Sclerae anicteric. Mucous membranes of the mouth are moist. Neck supple. No JVD or thyromegaly LUNGS: Respirations even and unlabored. Lungs essentially clear to auscultation bilaterally. HEART: Regular rate and rhythm. S1 and S2 heard. ABDOMEN: Soft. Nondistended. Nontender. EXTREMITIES: Normal range of motion. No clubbing or cyanosis. Peripheral pulses intact. No lower extremity edema NEUROLOGIC: Patient slow to respond. ASSESSMENT: Reported syncope, etiology unclear Chest pain, no evidence of acute coronary syndrome Mild to moderate nonobstructive CAD, per cardiac catheterization August 2023 History of TIA/CVA History of seizure disorder Obesity: BMI 37.8 Toxicology screen positive for marijuana and benzodiazepines PLAN: An acute coronary but has been ruled out Resume home cardiac medications Continue telemetry monitoring Await neurology evaluation No further inpatient recommendations from a cardiac standpoint We will sign off. Please reconsult if needed. Nurse practitioner note has been reviewed by physician. Signing provider agrees with the documented findings, assessment, and plan of care documented by EMPLOYMENT SPECIALIST/PROGRAM MANAGER as a scribe. 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 BLOOD TRANSFUSIONS FOR LOW HGB. uterine and colon ca History of Any Multi-Drug Resistant Organisms: MRSA Date of last positivie culture/infection: 08/10/19 MDRO Source:: URINE Past Surgical History: Appendectomy, Bowel Resection, Cholecystectomy, Ear Surgery, Hysterectomy, Orthopedic Surgery Additional Past Surgical History / Comment(s): frantz knee arthroscopy, hiatal hernia surgery, rt ear surgery to remove middle ear, lymph node biopsy right armpit. loop recorder Past Anesthesia/Blood Transfusion Reactions: Postoperative Nausea & Vomiting (PONV) Additional Past Anesthesia/Blood Transfusion Reaction / Comment(s): Pt has received blood in past without reaction. Type of Cardiac Device: Loop Device Placement Date:: 2016 states need to be removed everything fine now per patien Past Psychological History: Anxiety, Panic Disorder Smoking Status: Never smoker Past Alcohol Use History: None Reported Past Drug Use History: None Reported - Past Family History Mother Family Medical History: Coronary Artery Disease (CAD), Diabetes Mellitus Additional Family Medical History / Comment(s): . Father Family Medical History: No Reported History Additional Family Medical History / Comment(s): Father is healthy Medications and Allergies Home Medications Medication Instructions Recorded Confirmed Type lamoTRIgine [LaMICtal] 200 mg PO BID 09/26/18 10/04/23 History Sertraline [Zoloft] 150 mg PO DAILY 03/22/22 10/04/23 History diazePAM [Valium] 10 mg PO HS 08/02/23 10/04/23 History Dicyclomine [Bentyl] 10 mg PO BID 10/04/23 10/04/23 History Enalapril [Vasotec] 5 mg PO DAILY 10/04/23 10/04/23 History Ergocalciferol [Vitamin D2 (1250 1,250 mcg PO WEEKLY 10/04/23 10/04/23 History Mcg = 19417 Iu)] Allergies Allergy/AdvReac Type Severity Reaction Status Date / Time cephalexin [From Keflex] Allergy Rash/Hives Verified 10/04/23 09:22 codeine Allergy Rash/Hives Verified 10/04/23 09:22 erythromycin base Allergy Rash/Hives Verified 10/04/23 09:22 gadobutrol [From Gadavist] Allergy Anaphylaxis Verified 10/04/23 09:22 Gadolinium-Containing Allergy Anaphylaxis Verified 10/04/23 09:22 Contrast Medi iodine Allergy Anaphylaxis Verified 10/04/23 09:22 Penicillins Allergy Anaphylaxis Verified 10/04/23 09:22 vancomycin Allergy Anaphylaxis Verified 10/04/23 09:22 azithromycin AdvReac red face Verified 10/04/23 09:22 diphenhydramine AdvReac Confusion Verified 10/04/23 09:22 [From Benadryl] lorazepam [From Ativan] AdvReac Hallucinati Verified 10/04/23 09:22 ons Physical Exam Vitals: Vital Signs Temp Pulse Resp BP Pulse Ox 10/04/23 07:30 64 22 161/93 10/04/23 07:18 84 22 179/112 96 10/04/23 06:11 20 10/04/23 05:52 97.6 F 89 19 201/94 99 Intake and Output 10/03/23 10/04/23 10/04/23 22:59 06:59 14:59 Other: Weight 90.718 kg Results 10/04/23 06:05 10/04/23 06:05 Cardiac Enzymes 10/04/23 10/04/23 Range/Units 06:05 06:05 AST 33 (14-36) U/L Troponin I <0.012 (0.000-0.034) ng/mL Coagulation 10/04/23 Range/Units 06:05 PT 9.5 L (10.0-12.5) sec APTT 24.5 (22.0-30.0) sec CBC 10/04/23 Range/Units 06:05 WBC 8.0 (3.8-10.6) k/uL RBC 4.57 (3.80-5.40) m/uL Hgb 13.4 (11.4-16.0) gm/dL Hct 41.7 (34.0-46.0) % Plt Count 278 (150-450) k/uL Comprehensive Metabolic Panel 10/04/23 Range/Units 06:05 Sodium 143 (137-145) mmol/L Potassium 4.3 (3.5-5.1) mmol/L Chloride 107 (98-107) mmol/L Carbon Dioxide 28 (22-30) mmol/L BUN 22 H (7-17) mg/dL Creatinine 0.80 (0.52-1.04) mg/dL Glucose 106 H (74-99) mg/dL Calcium 9.7 (8.4-10.2) mg/dL AST 33 (14-36) U/L ALT 22 (4-34) U/L Alkaline Phosphatase 204 H (38-126) U/L Total Protein 7.4 (6.3-8.2) g/dL Albumin 4.4 (3.5-5.0) g/dL Current Medications Generic Name Dose Route Start Last Admin Trade Name Freq PRN Reason Stop Dose Admin Aspirin 325 mg 10/05/23 09:00 Aspirin 325 Mg Tab PO DAILY EVERARDO Levofloxacin 750 mg/ IV 150 mls @ 100 mls/hr 10/04/23 08:03 10/04/23 08:50 Solution IVPB 10/04/23 09:32 100 mls/hr ONCE STA Administration Protocol Nitroglycerin 0.4 mg 10/04/23 08:07 Nitroglycerin Sl Tabs 0.4 Mg Tab SUBLINGUAL Q5M PRN Chest Pain Intake and Output 10/03/23 10/04/23 10/04/23 22:59 06:59 14:59 Other: Weight 90.718 kg 10/04/23 06:05 10/04/23 06:05
[2023-10-04] MEDS: lisinopriL 10 MG TAB PO SCH (13:14)
[2023-10-04] MEDS: ONDANSETRON 4 MG/2 ML VIAL IVP PRN (15:48)
--- NOTE | 2023-10-04 16:37 | P.CNNES ---
History of Present Illness Consult date: 10/04/23 Requesting physician: Ravinder Novoa Reason for Consult: altered mental status History of Present Illness: This is a 57-year-old woman with history of nonepileptic seizures, syncopal episodes conversion disorder, colon cancer in remission, presented emergency department because of chest discomfort and syncopal episode. Patient does not recall what brought her to the hospital and upon talking to her she was very drowsy and within a few seconds patient perked up and was talking normally without any confusion. Patient states she follows up with Dr. Lay for her seizures at [facility] and was seen last a month ago and was told her seizure are stress induced. Lamictal 200 mg twice daily. She is on Valium 10 mg nightly. She was seen by our neurology team predominantly Dr. Crook in the past and last seen by Dr. Crook on 08/04/2023 he stated recurrent near syncopal episode possibly cardiac related. Patient has a positive stress test. He stated patient has stress-induced seizure and uncertain if patient has only nonepileptic seizure or mixed epileptic and nonepileptic. She has a history of recurrent right hemiparesis with negative workup possible conversion disorder. Per refer to his notes for further details Some of the Workup consisted of: Initial presentation blood pressure was 201/94 and got as high as 214/94. Her blood pressure is improved. CBC with differential is unremarkable Glucose is 106, renin is normal and BUN is 22 AST ALT sodium is within normal limits Urinalysis is possible underlying urinary tract infection with leukocyte esterase is large, urine white blood cells 42. Drug screen is positive for benzo and marijuana. 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 BLOOD TRANSFUSIONS FOR LOW HGB. uter ine and colon ca History of Any Multi-Drug Resistant Organisms: MRSA Date of last positivie culture/infection: 08/10/19 MDRO Source:: URINE Past Surgical History: Appendectomy, Bowel Resection, Cholecystectomy, Ear Surgery, Hysterectomy, Orthopedic Surgery Additional Past Surgical History / Comment(s): frantz knee arthroscopy, hiatal hernia surgery, rt ear surgery to remove middle ear, lymph node biopsy right armpit. loop recorder Past Anesthesia/Blood Transfusion Reactions: Postoperative Nausea & Vomiting (PONV) Additional Past Anesthesia/Blood Transfusion Reaction / Comment(s): Pt has received blood in past without reaction. Type of Cardiac Device: Loop Device Placement Date:: 2016 states need to be removed everything fine now per patien Past Psychological History: Anxiety, Panic Disorder Smoking Status: Never smoker Past Alcohol Use History: None Reported Past Drug Use History: None Reported - Past Family History Mother Family Medical History: Coronary Artery Disease (CAD), Diabetes Mellitus Additional Family Medical History / Comment(s): . Father Family Medical History: No Reported History Additional Family Medical History / Comment(s): Father is healthy Medications and Allergies Home Medications Medication Instructions Recorded Confirmed Type lamoTRIgine [LaMICtal] 200 mg PO BID 09/26/18 10/04/23 History Sertraline [Zoloft] 150 mg PO DAILY 03/22/22 10/04/23 History diazePAM [Valium] 10 mg PO HS 08/02/23 10/04/23 History Dicyclomine [Bentyl] 10 mg PO BID 10/04/23 10/04/23 History Enalapril [Vasotec] 5 mg PO DAILY 10/04/23 10/04/23 History Ergocalciferol [Vitamin D2 (1250 1,250 mcg PO WEEKLY 10/04/23 10/04/23 History Mcg = 30175 Iu)] Allergies Allergy/AdvReac Type Severity Reaction Status Date / Time cephalexin [From Keflex] Allergy Rash/Hives Verified 10/04/23 09:22 codeine Allergy Rash/Hives Verified 10/04/23 09:22 erythromycin base Allergy Rash/Hives Verified 10/04/23 09:22 gadobutrol [From Gadavist] Allergy Anaphylaxis Verified 10/04/23 09:22 Gadolinium-Containing Allergy Anaphylaxis Verified 10/04/23 09:22 Contrast Medi iodine Allergy Anaphylaxis Verified 10/04/23 09:22 Penicillins Allergy Anaphylaxis Verified 10/04/23 09:22 vancomycin Allergy Anaphylaxis Verified 10/04/23 09:22 azithromycin AdvReac red face Verified 10/04/23 09:22 diphenhydramine AdvReac Confusion Verified 10/04/23 09:22 [From Benadryl] lorazepam [From Ativan] AdvReac Hallucinati Verified 10/04/23 09:22 ons Physical Examination - Vital Signs Vital Signs: Vital Signs Temp Pulse Resp BP Pulse Ox 10/04/23 11:02 64 22 119/52 99 10/04/23 10:40 115 H 214/94 99 10/04/23 10:00 72 24 181/66 99 10/04/23 09:00 72 18 171/96 99 10/04/23 07:30 64 22 161/93 10/04/23 07:18 84 22 179/112 96 10/04/23 06:11 20 10/04/23 05:52 97.6 F 89 19 201/94 99 Intake and Output 10/04/23 10/04/23 10/04/23 06:59 14:59 22:59 Other: Weight 90.718 kg General: Lying in bed and is not in acute distress. HENT: Supple neck. Neuro: Initially upon trying to examine her she is very drowsy within a few seconds patient perked up and she was responding very quickly appropriately. Patient was oriented to self place. She was following simple commands. No aphasia The pupils are round about 3 to 4 mm bilaterally and reactive to light. No facial weakness. No dysarthria Motor hard to assess individual muscle strength because of her cooperation but was lifting extremities above gravity Plantars are downgoing bilaterally. Results - Laboratory Findings CBC and BMP: 10/04/23 06:05 10/04/23 06:05 Abnormal Lab Findings: Abnormal Labs 10/04/23 10/04/23 10/04/23 06:05 06:05 06:12 PT 9.5 L BUN 22 H Glucose 106 H POC Glucose (mg/dL) 112 H Alkaline Phosphatase 204 H Ur Leukocyte Esterase Urine WBC Urine Mucus U Benzodiazepines Scrn U Marijuana (THC) Screen 10/04/23 10/04/23 07:11 07:11 PT BUN Glucose POC Glucose (mg/dL) Alkaline Phosphatase Ur Leukocyte Esterase Large H Urine WBC 42 H Urine Mucus Rare H U Benzodiazepines Scrn Detected H U Marijuana (THC) Screen Detected H Assessment and Plan Assessment: This is a 57-year-old woman with history of nonepileptic seizures (stress induced), syncopal episodes, conversion disorder, colon cancer in remission who presented emergency department because of chest discomfort and syncopal episode. Syncopal episode and in past Dr. Crook felt due to cardiac related and has positive stress stress Possible acute UTI Hypertensive urgency Chest discomfort Underlying history of nonepileptic seizure (Stress induced) History of syncopal episode History of recurrent right hemiparesis and had workup in the past in which she h ad MRIs which were negative, possible conversion disorder History of colon cancer and currently in remission Plan: Patient is on Lamictal 200 mg twice daily. Patient follows up with Dr. Harmon for her seizures over at [facility] and she states was told she has stress induced seizure and last seen according to patient was a month ago. Recommend a prolonged EEG as outpatient and will defer management to her neurologist. In the ED she was given Keppra 1500 mg once for concern for seizure. I spoke with the P.A who evaluated patient in the ED and he did not feel she had seizure. Seizure Precautions and seizure pads Cardiology is consulted Will defer the rest of medical management to the primary and other specialist. Thank you for the consultation. Time with Patient: Greater than 30
[2023-10-04 17:04] VITALS: RESP 16
--- NOTE | 2023-10-04 18:00 | P.HPIM ---
History of Present Illness This is a pleasant 57 years old female with past medical history of multiple medical problems including stress seizure and history of migraine currently on Lamictal and history of colon cancer few years ago currently not under treatment and hypertension Patient presents with confusion and other symptoms. Patient could not provide full information she is poor historian because she is sleepy. Information were obtained with the help of staff, medical records and parents both at bedside which are her caregivers. 2 days ago and yesterday parents received a call from their neighbors of their daughter that she is not doing well so they brought her to their home Overnight 4:00 in the morning the mother heard her falling on the ground and she was trying to get out of bed, she was there on the floor unresponsive for 15 to 20 minutes, when she was confused could not tell her father but there was no seizure-like activity no urine or bowel incontinence no tongue biting So parents held her back to her bed and shortly thereafter she passed out again where she was on the floor for 2 to 4 minutes before she wakes up but this time without confusion Now her chest pain is 6/10 on the left side radiating laterally around the chest It is associated with headache about 8/10 with left arm singling and at the same time left arm weak as per patient She is complaining from nonspecific dizziness Also she told me she has diarrhea about twice per day for many months and years since she had her diagnosis of colon cancer and [id number] Patient blood pressure was elevated in the emergency room , currently improved significantly back to normal As per bedside nurse in the emergency room patient suspected to have a seizure but it was not very clear or typical Patient is afebrile and vitals stable after blood pressure stabilized and improved She has unremarkable labs including CBC, BMP, and troponin Urine drug screen is positive for benzodiazepine Serum alcohol less than 10 Urine analysis suspicious for increased WBC in the urine however patient is asymptomatic EKG showing sinus rhythm with first-degree heart block and right bundle branch block Chest x-ray cardiomegaly but with no pulmonary vascular congestion CT of the brain is negative for acute process Review of Systems Review of systems CONSTITUTIONAL: No fever, no malaise, no fatigue. HEENT: No recent visual problems or hearing problems. Denied any sore throat. CARDIOVASCULAR: No orthopnea, PND, no palpitations, no syncope. PULMONARY: No shortness of breath, no cough, no hemoptysis. GASTROINTESTINAL: No diarrhea, no nausea, no vomiting, no abdominal pain. Normoactive bowel sounds. NEUROLOGICAL: No headaches, no weakness, no numbness. HEMATOLOGICAL: Denies any bleeding or petechiae. GENITOURINARY: Denies any burning micturition, frequency, or urgency. MUSCULOSKELETAL/RHEUMATOLOGICAL: Denies any joint pain, swelling, or any muscle pain. ENDOCRINE: Denies any polyuria or polydipsia. 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 BLOOD TRANSFUSIONS FOR LOW HGB. uterine and colon ca History of Any Multi-Drug Resistant Organisms: MRSA Date of last positivie culture/infection: 08/10/19 MDRO Source:: URINE Past Surgical History: Appendectomy, Bowel Resection, Cholecystectomy, Ear Surgery, Hysterectomy, Orthopedic Surgery Additional Past Surgical History / Comment(s): frantz knee arthroscopy, hiatal hernia surgery, rt ear surgery to remove middle ear, lymph node biopsy right armpit. loop recorder Past Anesthesia/Blood Transfusion Reactions: Postoperative Nausea & Vomiting (PONV) Additional Past Anesthesia/Blood Transfusion Reaction / Comment(s): Pt has received blood in past without reaction. Type of Cardiac Device: Loop Device Placement Date:: 2016 states need to be removed everything fine now per patien Past Psychological History: Anxiety, Panic Disorder Additional Psychological History / Comment(s): Pt resides alone. Her mother is her caregiver. She uses no assistive device. She does not drive. Smoking Status: Never smoker Past Alcohol Use History: None Reported Past Drug Use History: None Reported Additional Drug Use History / Comment(s): tried edibles for sleep ( chocolate), pt aware not to use 24 hrs before procedure. - Past Family History Mother Family Medical History: Coronary Artery Disease (CAD), Diabetes Mellitus Additional Family Medical History / Comment(s): . Father Family Medical History: No Reported History Additional Family Medical History / Comment(s): Father is healthy Medications and Allergies Home Medications Medication Instructions Recorded Confirmed Type lamoTRIgine [LaMICtal] 200 mg PO BID 09/26/18 10/04/23 History Sertraline [Zoloft] 150 mg PO DAILY 03/22/22 10/04/23 History diazePAM [Valium] 10 mg PO HS 08/02/23 10/04/23 History Dicyclomine [Bentyl] 10 mg PO BID 10/04/23 10/04/23 History Enalapril [Vasotec] 5 mg PO DAILY 10/04/23 10/04/23 History Ergocalciferol [Vitamin D2 (1250 1,250 mcg PO WEEKLY 10/04/23 10/04/23 History Mcg = 48462 Iu)] Allergies Allergy/AdvReac Type Severity Reaction Status Date / Time cephalexin [From Keflex] Allergy Rash/Hives Verified 10/04/23 09:22 codeine Allergy Rash/Hives Verified 10/04/23 09:22 erythromycin base Allergy Rash/Hives Verified 10/04/23 09:22 gadobutrol [From Gadavist] Allergy Anaphylaxis Verified 10/04/23 09:22 Gadolinium-Containing Allergy Anaphylaxis Verified 10/04/23 09:22 Contrast Medi iodine Allergy Anaphylaxis Verified 10/04/23 09:22 Penicillins Allergy Anaphylaxis Verified 10/04/23 09:22 vancomycin Allergy Anaphylaxis Verified 10/04/23 09:22 azithromycin AdvReac red face Verified 10/04/23 09:22 diphenhydramine AdvReac Confusion Verified 10/04/23 09:22 [From Benadryl] lorazepam [From Ativan] AdvReac Hallucinati Verified 10/04/23 09:22 ons Physical Exam Vitals: Vital Signs Temp Pulse Pulse Resp BP BP BP 10/04/23 17:31 58 L 16 10/04/23 17:11 97.7 F 58 L 16 149/74 10/04/23 16:53 97.7 F 58 L 16 149/74 10/04/23 16:35 97.8 F 61 18 127/67 10/04/23 15:00 97.7 F 58 L 16 149/74 10/04/23 11:02 64 22 119/52 10/04/23 10:40 115 H 214/94 10/04/23 10:00 72 24 181/66 10/04/23 09:00 72 18 171/96 10/04/23 07:30 64 22 161/93 10/04/23 07:18 84 22 179/112 10/04/23 06:11 20 10/04/23 05:52 97.6 F 89 19 201/94 Pulse Ox 10/04/23 17:31 10/04/23 17:11 97 10/04/23 16:53 97 10/04/23 16:35 97 10/04/23 15:00 97 10/04/23 11:02 99 10/04/23 10:40 99 10/04/23 10:00 99 10/04/23 09:00 99 10/04/23 07:30 10/04/23 07:18 96 10/04/23 06:11 10/04/23 05:52 99 Intake and Output 10/04/23 10/04/23 10/04/23 06:59 14:59 22:59 Other: Voiding Method Toilet Diaper Weight 90.718 kg 90.718 kg -GENERAL: The patient is alert and oriented x3, drowsy not in any acute distress. Well developed, well nourished. HEENT: Pupils are round and equally reacting to light. EOMI. No scleral icterus. No conjunctival pallor. Normocephalic, atraumatic. No pharyngeal erythema. No thyromegaly. CARDIOVASCULAR: S1 and S2 present. No murmurs, rubs, or gallops. PULMONARY: Chest is clear to auscultation, no wheezing , no crackles. ABDOMEN: Soft, nontender, nondistended, normoactive bowel sounds. No palpable organomegaly. MUSCULOSKELETAL: No joint swelling or deformity. EXTREMITIES: No cyanosis, clubbing, or pedal edema. NEUROLOGICAL: Gross neurological examination did not reveal any focal deficits. SKIN: No rashes. no petechiae. Results CBC & Chem 7: 10/04/23 06:05 10/04/23 06:05 Labs: Abnormal Lab Results - Last 24 Hours (Table) 10/04/23 10/04/23 10/04/23 Range/Units 06:05 06:05 06:12 PT 9.5 L (10.0-12.5) sec BUN 22 H (7-17) mg/dL Glucose 106 H (74-99) mg/dL POC Glucose (mg/dL) 112 H (70-110) mg/dL Alkaline Phosphatase 204 H (38-126) U/L Ur Leukocyte Esterase (Negative) Urine WBC (0-5) /hpf Urine Mucus (None) /hpf U Benzodiazepines Scrn (NotDetected) U Marijuana (THC) Screen (NotDetected) 10/04/23 10/04/23 Range/Units 07:11 07:11 PT (10.0-12.5) sec BUN (7-17) mg/dL Glucose (74-99) mg/dL POC Glucose (mg/dL) (70-110) mg/dL Alkaline Phosphatase (38-126) U/L Ur Leukocyte Esterase Large H (Negative) Urine WBC 42 H (0-5) /hpf Urine Mucus Rare H (None) /hpf U Benzodiazepines Scrn Detected H (NotDetected) U Marijuana (THC) Screen Detected H (NotDetected) Thrombosis Risk Factor Assmnt - Choose All That Apply Any of the Below Risk Factors Present?: No Other Risk Factors: No Other congenital or acquired thrombophilia - If yes, enter type in comment: No Thrombosis Risk Factor Assessment Level: Very Low Risk Assessment and Plan Assessment: -Chest pain, atypical for cardiac origin evaluated by hydro station operator. Associated with some tenderness most likely musculoskeletal -Nonspecific neurological symptoms including multiple syncope or periods of unresponsiveness with various duration 1 lasted 15 minutes the other 1 lasted 2 to 4 minutes, with seizure-like activity at times weakness in the emergency room, with headache dizziness left arm weakness and numbness, rule out neurologic disease, could be also conversion disorder given her history and the atypical presentation that does not follow dermatome or typical area. Especially she has history of stress induced seizure -Hypertensive urgency present on admission currently improved -History of migraine History of colon cancer Plan: Patient symptoms look atypical Patient evaluated by cardiology stroke recommended conservative treatment Case was discussed with the neurologist Currently continued on aspirin 81 mg, lisinopril and Lamictal with close monitoring of blood pressure. Labs and medication were reviewed.. Continue same treatment. Continue with symptomatic treatment. Resume home medication. Monitor labs and vitals. DVT and GI prophylaxis. Further recommendations as per clinical course of the pat ient DVT prophylaxis: Mechanical GI Prophylaxis: Pepcid Prognosis is guarded
[2023-10-04] MEDS: METOCLOPRAMIDE 5 MG/ML 2 ML VIAL IVP STA (18:31)
[2023-10-04] MEDS: FAMOTIDINE 20 MG/2 ML VIAL IV SCH (20:52)
[2023-10-04] MEDS: ATORVASTATIN 20 MG TAB PO SCH (20:52)
[2023-10-04] MEDS: DICYCLOMINE 10 MG CAP PO SCH (20:52)
[2023-10-04] MEDS: lamoTRIgine 100 MG TAB PO SCH (20:52)
[2023-10-05 07:36] VITALS: BP 117/72; PULSE 70; TEMP 97.8
[2023-10-05] MEDS: SERTRALINE 50 MG TAB PO SCH (08:47)
[2023-10-05] MEDS: ASPIRIN 81 MG PO SCH (08:49)
[2023-10-05] MEDS ORDERED: ASPIRIN 325 MG TAB PO SCH (09:00)
[2023-10-05 10:53] LABS: Chol/HDL Ratio 3.49 Ratio; LDL Cholesterol,Calculated 140.5 mg/dL (0.0-131.0)
--- NOTE | 2023-10-06 07:00 | P.DS ---
Providers Date of admission: 10/04/23 08:01 Attending physician: Edward Perez MD Consults: 10/04/23 08:07 Consult Physician Urgent Consulting Provider: Javon Hernandez Consult Reason/Comments: AMS Do you want consulting provider notified?: Yes Primary care physician: Maisha Hammonds Hospital Course: Diagnoses: -Chest pain, atypical for cardiac origin evaluated by concrete floor installer. Associated with some tenderness most likely musculoskeletal. Resolved upon discharge -Nonspecific neurological symptoms including multiple syncope or periods of unresponsiveness with various duration 1 lasted 15 minutes the other 1 lasted 2 to 4 minutes, with seizure-like activity at times weakness in the emergency room, with headache dizziness left arm weakness and numbness, neurologic disease ruled out, could be also (conversion disorder) vs (stress induced seizure) -Hypertensive urgency present on admission currently improved -History of migraine -History of colon cancer Hospital course: This is a pleasant 57 years old female with past medical history of multiple medical problems including stress seizure and history of migraine currently on Lamictal and history of colon cancer few years ago currently not under treatment and hypertension Patient presents with confusion and other symptoms. Patient had multiple neurological symptoms from confusion, weakness numbness headache dizziness that happened at various times and does not follow a specific pattern. I discussed the case with the neurologist who evaluated for her. Most likely this is conversion disorder of the other possibility she is not she sees an epilepsy neurology specialist as outpatient who diagnosed her with stress induced seizure. She is continued on her home dose of Lamictal. Per neurologist no further antiseizure medication or workup is needed. This morning I saw the patient significantly improved and she agrees that her symptoms are from emotion rather than from neurological disease. Also concrete floor installer evaluated for her chest pain and signed off the case. Her chest pain improved Today patient looks much better. She denies chest pain dyspnea. No headache dizziness weakness or numbness. No other complaints. Patient agrees to go home today Patient was cleared for discharge by both cardiology and neurology service for discharge Problems and management plan were discussed with the patient and he verbalized understanding and acceptance Patient was found stable and can be discharged home in guarded prognosis however he needs follow-up as an outpatient. Patient was instructed to follow up with PCP Dr. Hammonds and concrete floor installer Dr. Winn within one week and patient agrees Patient was instructed to follow-up with her neurologist Dr. Zilgit in 1 week after discharge, as an alternative to contact information for Dr. Aguila is provided for her Physical exam Gen: patient is a AAOx3, no distress CVS: S1-S2, RRR, no murmur Lungs: B/L CTA, no wheezing Abdomen: soft, no distention, no tenderness, positive bowel sounds Extremity: no leg edema or induration Time spent more than 35 minutes Patient Condition at Discharge: Fair Plan - Discharge Summary Discharge Rx Participant: Yes New Discharge Prescriptions: New Aspirin 81 mg PO DAILY #30 tab Famotidine [Pepcid] 20 mg PO DAILY 5 Days #5 tablet Atorvastatin [Lipitor] 20 mg PO HS #30 tab Ondansetron [Zofran] 4 mg PO Q12HR PRN 5 Days #10 tab PRN Reason: Nausea And Vomiting Continue lamoTRIgine [LaMICtal] 200 mg PO BID Dicyclomine [Bentyl] 10 mg PO BID Ergocalciferol [Vitamin D2 (1250 Mcg = 03896 Iu)] 1,250 mcg PO WEEKLY Enalapril [Vasotec] 5 mg PO DAILY Sertraline [Zoloft] 150 mg PO DAILY diazePAM [Valium] 10 mg PO HS Discharge Medication List lamoTRIgine [LaMICtal] 200 mg PO BID 09/26/18 [History] Sertraline [Zoloft] 150 mg PO DAILY 03/22/22 [History] diazePAM [Valium] 10 mg PO HS 08/02/23 [History] Dicyclomine [Bentyl] 10 mg PO BID 10/04/23 [History] Enalapril [Vasotec] 5 mg PO DAILY 10/04/23 [History] Ergocalciferol [Vitamin D2 (1250 Mcg = 88453 Iu)] 1,250 mcg PO WEEKLY 10/04/23 [History] Aspirin 81 mg PO DAILY #30 tab 10/05/23 [Rx] Atorvastatin [Lipitor] 20 mg PO HS #30 tab 10/05/23 [Rx] Famotidine [Pepcid] 20 mg PO DAILY 5 Days #5 tablet 10/05/23 [Rx] Ondansetron [Zofran] 4 mg PO Q12HR PRN 5 Days #10 tab 10/05/23 [Rx] Follow up Appointment(s)/Referral(s): Dominick Winn MD [STAFF PHYSICIAN] - 1 Week (Office will call with appointment time and date.) Maisha Hammonds MD [Primary Care Provider] - 1-2 days Jennifer Reina MD [Medical Doctor] - 1 Week Patient Instructions/Handouts: Clear Liquid Diet (DC), Syncope (DC), Acute Nausea and Vomiting (DC), Full Liquid Diet (DC) Activity/Diet/Wound Care/Special Instructions: heart healthy diet activity is restricted till you see your doctor we recommend to follow up with your neurologist Dr. Harmon in one week ,you have the contact information as you informed the medical team Discharge Disposition: HOME SELF-CARE
== END 2023-10-05 11:43 | disposition home or self-care (01) ==
LOC: EC 05:52 → 6NMEDSUR 08:01
PROVIDERS: ADMIT Internal Medicine; ATTEND Internal Medicine
DX: R41.82 Altered mental status, unspecified (principal); R07.89 Other chest pain; I16.0 Hypertensive urgency; Z90.710 Acquired absence of both cervix and uterus; Z86.73 Personal history of transient ischemic attack (TIA), and cerebral infarction without residual deficits; Z85.038 Personal history of other malignant neoplasm of large intestine; Z83.3 Family history of diabetes mellitus; Z82.49 Family history of ischemic heart disease and other diseases of the circulatory system; Z79.899 Other long term (current) drug therapy; G40.409 Other generalized epilepsy and epileptic syndromes, not intractable, without status epilepticus; G81.91 Hemiplegia, unspecified affecting right dominant side
CPT/HCPCS: 96376; 96365; 96367; 96375 ×2; 99285; 36415; 93005; 83880; 80061; 80053; 83735; 84484; 85025; 85610; 85730; 81001; 87040; 80306; 87086; 87077; 87186; 71046; 70450; G0378 ×2; G0480; J2060; J2765; J2405; J3490; J1956; J1953; J1920; 80320

== ENCOUNTER 2023-10-17 05:50 | Day surgery (SDC) | payer OTHER ==
[~2023-10-17 05:50] MED LIST changes: -LACTATED RINGERS 1,000 ML IV SCH; +SODIUM CHLORIDE 0.9% 1,000 ML IV SCH
[2023-10-17] MEDS: SODIUM CHLORIDE 0.9% 500 ML 500 ML IV ONE ×2 (06:36→08:00)
[2023-10-17 06:39] VITALS: BP 163/70; PULSE 83; RESP 16; TEMP 98.4
--- NOTE | 2023-10-20 16:28 | P.EPPROC ---
- EP Procedure Note Electrophysiology Procedure Note: Diagnosis Recurrent presyncope Current EKG shows sinus rhythm prolonged GA interval right bundle branch block left anterior fascicular block Trifascicular block QRS width 166 ms Tilt table test per protocol Baseline blood pressure 177/75 mmHg pulse rate in the 60s Patient was tilted upright in angle of 70 degrees per protocol Elevated blood pressure readings 177/75 mmHg, pulse rate in the 60s After about 18 minutes or so the patient started complaining of lightheadedness weakness and subsequently, her knees buckled, eyes rolled back. She did not respond to a sternal rub Upright position of 70 degrees was continued to document that her heart rate and blood pressures were in the normal range Continues blood pressure monitoring was performed with clear site, finger plethysmography to confirm absence of any drop in blood pressure The monitor did not show any tacky or bradycardia arrhythmias She was laid supine the end of the procedure Thereafter she opened her eyes and is mentating normally Impression Abnormal EKG with a prolonged GA interval right bundle branch block left anterior fascicular block, trifascicular block Episode of altered consciousness consistent with psychogenic response, normal heart rate and blood pressure during this episode
== END 2023-10-17 08:38 | disposition home or self-care (01) ==
LOC: CATHEP 05:50
PROVIDERS: ATTEND Internal Medicine Clinical Cardiac Electrophysiology
DX: I45.3 Trifascicular block (principal); I45.10 Unspecified right bundle-branch block
CPT/HCPCS: 93660

== ENCOUNTER 2023-10-24 13:45 | Emergency (ER) | payer OTHER ==
[2023-10-24 13:53] VITALS: TEMP 97.8
[2023-10-24 14:22] LABS: Basophils % (A) 1 %; Eosinophils # (A) 0.1 k/uL (0-0.7); Eosinophils % (A) 1 %; HCT 38.9 % (34.0-46.0); HGB 12.8 gm/dL (11.4-16.0); Lymphocytes % (A) 25 %; MCH 29.6 pg (25.0-35.0); MCHC 32.9 g/dL (31.0-37.0); Monocytes # (A) 0.3 k/uL (0-1.0); Monocytes % (A) 3 %; Neutrophils # (A) 5.7 k/uL (1.3-7.7); Neutrophils % (A) 70 %; Platelet Count 282 k/uL (150-450); RBC 4.32 m/uL (3.80-5.40); RDW 13.7 % (11.5-15.5); WBC 8.1 k/uL (3.8-10.6)
[2023-10-24] MEDS: KETOROLAC 15 MG/ML 1 ML VIAL IVP STA (14:35)
[2023-10-24 14:37] LABS: ALT 17 U/L (4-34); AST 27 U/L (14-36); African American GFR (CKD) >90 (>60 ml/min/1.73 sqM); Albumin 4.4 g/dL (3.5-5.0); Alkaline Phosphatase 149 U/L (38-126); Anion Gap 7 mmol/L; Blood Urea Nitrogen 22 mg/dL (7-17); Calcium 9.5 mg/dL (8.4-10.2); Carbon Dioxide 26 mmol/L (22-30); Chloride 108 mmol/L (98-107); Glucose 86 mg/dL (74-99); Lipase 124 U/L (23-300); Magnesium 2.1 mg/dL (1.6-2.3); Non-African American GFR(CKD) 89 (>60 ml/min/1.73 sqM); Potassium 4.3 mmol/L (3.5-5.1); Sodium 141 mmol/L (137-145); Total Bilirubin 0.4 mg/dL (0.2-1.3); Total Protein 7.5 g/dL (6.3-8.2)
[2023-10-24 14:39] LABS: INR 0.9 (<1.2); Partial Thromboplastin Time 24.9 sec (22.0-30.0); Prothrombin Time 9.9 sec (10.0-12.5)
[2023-10-24 14:44] LABS: NT-Pro-B-Type Natriuretic Pept 411 pg/mL
--- NOTE | 2023-10-24 15:09 | XR ---
EXAMINATION TYPE: XR chest 2V DATE OF EXAM: 10/24/2023 COMPARISON: 10/04/2023 HISTORY: Shortness of breath TECHNIQUE: Frontal and lateral views of the chest are obtained. FINDINGS: Scattered senescent parenchymal changes noted. No evidence for infiltrate. No evidence for atelectasis. Stable chronic elevation right hemidiaphragm . Heart size is stable. Mediastinal structures are stable and grossly unremarkable. No evidence for hilar prominence. Degenerative changes dorsal spine. IMPRESSION: 1. No evidence for acute pulmonary disease.
--- NOTE | 2023-10-24 16:36 | ED ---
Chest Pain HPI - General Chief Complaint: Chest Pain Stated Complaint: Chest pain,Dizziness, L arm pain Time Seen by Provider: 10/24/23 13:59 Source: patient, RN notes reviewed, old records reviewed Mode of arrival: wheelchair - History of Present Illness Initial Comments: 57-year-old female with a history of CVA, cancer, anemia, migraine headaches who presents with complaints of chest pain today left-sided that radiated into her axilla and around to her back very severe initially she did have a which she believes was a near syncopal episode with it. She also complains of a right- sided headache going down her neck and into her right axilla. The pain was described as migraine-like. No fevers chills sweats no trauma reported. 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 MD Complaint: chest pain, other - Related Data Home Medications Medication Instructions Recorded Confirmed lamoTRIgine [LaMICtal] 200 mg PO BID 09/26/18 10/24/23 Sertraline [Zoloft] 150 mg PO DAILY 03/22/22 10/24/23 diazePAM [Valium] 10 mg PO HS 08/02/23 10/24/23 Previous Rx's Medication Instructions Recorded Aspirin 81 mg PO DAILY #30 tab 10/05/23 Atorvastatin [Lipitor] 20 mg PO HS #30 tab 10/05/23 Allergies Allergy/AdvReac Type Severity Reaction Status Date / Time cephalexin [From Keflex] Allergy Rash/Hives Verified 10/24/23 15:13 codeine Allergy Rash/Hives Verified 10/24/23 15:13 erythromycin base Allergy Rash/Hives Verified 10/24/23 15:13 gadobutrol [From Gadavist] Allergy Anaphylaxis Verified 10/24/23 15:13 Gadolinium-Containing Allergy Anaphylaxis Verified 10/24/23 15:13 Contrast Medi iodine Allergy Anaphylaxis Verified 10/24/23 15:13 Penicillins Allergy Anaphylaxis Verified 10/24/23 15:13 vancomycin Allergy Anaphylaxis Verified 10/24/23 15:13 azithromycin AdvReac red face Verified 10/24/23 15:13 diphenhydramine AdvReac Confusion Verified 10/24/23 15:13 [From Benadryl] Review of Systems ROS Statement: Those systems with pertinent positive or pertinent negative responses have been documented in the HPI. ROS Other: All systems not noted in ROS Statement are negative. Past Medical History Past Medical History: Cancer, CVA/TIA Additional Past Medical History / Comment(s): migraines, "stress seizures", swelling of left lower leg, insomnia, hx hiatal hernia, hx colon cancer, diarrhea, hx psoriasis, Leaky heart valve, episodes of "passing out", 3x blocked sweat glands currently. BLOOD TRANSFUSIONS FOR LOW HGB. tia 5 yrs ago no residual. uterine and colon ca x2. see dr [facility] History of Any Multi-Drug Resistant Organisms: MRSA Date of last positivie culture/infection: 08/10/19 MDRO Source:: URINE Past Surgical History: Appendectomy, Bowel Resection, Cholecystectomy, Ear Surgery, Hernia Repair, Hysterectomy, Orthopedic Surgery Additional Past Surgical History / Comment(s): frantz knee arthroscopy, hiatal hernia surgery, rt ear surgery to remove middle ear, lymph node biopsy right armpit. loop recorder, Past Anesthesia/Blood Transfusion Reactions: Postoperative Nausea & Vomiting (PONV) Additional Past Anesthesia/Blood Transfusion Reaction / Comment(s): Pt has received blood in past without reaction. Type of Cardiac Device: Loop Device Placement Date:: 2016 states need to be removed everything fine now per patien Past Psychological History: Anxiety, Panic Disorder Smoking Status: Never smoker Past Alcohol Use History: None Reported Past Drug Use History: None Reported - Past Family History Mother Family Medical History: Coronary Artery Disease (CAD), Diabetes Mellitus Additional Family Medical History / Comment(s): . Father Family Medical History: No Reported History Additional Family Medical History / Comment(s): Father is healthy General Exam - General Exam Comments Initial Comments: This is a well-developed well-nourished awake alert oriented x 4 female General appearance: anxious Head exam: Present: atraumatic, normocephalic, normal inspection Eye exam: Present: normal appearance, PERRL, EOMI. Absent: scleral icterus, conjunctival injection, periorbital swelling ENT exam: Present: normal exam, mucous membranes moist Neck exam: Present: normal inspection, tenderness (Tenderness to palpation of the right lateral neck musculature no midline tenderness scalp tenderness on the right.). Absent: meningismus, lymphadenopathy Respiratory exam: Present: normal lung sounds bilaterally, chest wall tenderness (Palpation on the left costal sternal margin no step-off or crepitation). Absent: respiratory distress, wheezes, rales, rhonchi, stridor Cardiovascular Exam: Present: regular rate, normal rhythm, normal heart sounds. Absent: systolic murmur, diastolic murmur, rubs, gallop, clicks GI/Abdominal exam: Present: soft, normal bowel sounds. Absent: distended, tenderness, guarding, rebound, rigid Extremities exam: Present: normal inspection, full ROM, normal capillary refill. Absent: tenderness, pedal edema, joint swelling, calf tenderness Back exam: Present: normal inspection Neurological exam: Present: alert, oriented X3, CN II-XII intact Psychiatric exam: Present: normal affect, normal mood Skin exam: Present: warm, dry, intact, normal color. Absent: rash Course Vital Signs 10/24/23 10/24/23 10/24/23 13:48 14:16 14:53 Temperature 97.8 F Pulse Rate 73 69 Pulse Rate [ 64 Sex Therapist ] Respiratory 18 16 Rate Blood Pressure 173/71 115/76 O2 Sat by Pulse 99 99 Oximetry 10/24/23 15:53 Temperature Pulse Rate 56 L Pulse Rate [ Sex Therapist ] Respiratory 16 Rate Blood Pressure 112/62 O2 Sat by Pulse Oximetry Chest Pain MDM - MDM The patient did get some improvement from her headache and discomfort after the second shot of pain medication. The clinical evaluation appears to be consistent with musculoskeletal pain and costochondritis. Cardiac portion of the workup was unremarkable. After long discussion with the patient and family they are in agreement that she can go home and follow-up in the office. EKG was done and interpreted by me showing no acute changes lab work was within normal limits. Was pt. sent in by a medical professional or institution ([facility], [facility], urgent care, hospital, or penitentiary...) When possible be specific @ -No Did you speak to anyone other than the patient for history (EMS, parent, family, police, friend...)? What history was obtained from this source @ -No Did you review nursing and triage notes (agree or disagree)? Why? @ -I reviewed and agree with nursing and triage notes Were old charts reviewed (outside hosp., previous admission, EMS record, old EKG, old radiological studies, urgent care reports/EKG's, penitentiary records)? Report findings @ -EKG old charts were reviewed Differential Diagnosis (chest pain, altered mental status, abdominal pain women, abdominal pain men, vaginal bleeding, weakness, fever, dyspnea, syncope, headache, dizziness, GI bleed, back pain, seizure, CVA, palpatations, mental health, musculoskeletal)? @ -Chest Pain, headache EKG interpreted by me (3pts min.). @ -As above EKG interpreted by me sinus rhythm with first-degree AV block rate 73 OH interval is 244 QRS duration 170 QT/QTc 437/463 evidence of interventricular conduction delay left ventricular hypertrophy nonspecific anterior configuration this was compared to an EKG dated 10/04/2023 showing no changes X-rays interpreted by me (1pt min.). @ -Chest x-ray interpreted by me and showing no acute process CT interpreted by me (1pt min.). @ -None done U/S interpreted by me (1pt. min.). @ -None done What testing was considered but not performed or refused? (CT, X-rays, U/S, labs)? Why? @ -None What meds were considered but not given or refused? Why? @ -None Did you discuss the management of the patient with other professionals (professionals i.e. , PA, [facility], lab, RT, psych nurse, social worker delinquency prevention, concrete bucket loader, teacher, chief talent officer, medical case worker)? Give summary @ -No Was smoking cessation discussed for >3mins.? @ -No Was critical care preformed (if so, how long)? @ -No Were there social determinants of health that impacted care today? How? (Homelessness, low income, unemployed, alcoholism, drug addiction, transportation, low edu. Level, literacy, decrease access to med. care, residential, rehab)? @ -No Was there de-escalation of care discussed even if they declined (Discuss DNR or withdrawal of care, Hospice)? DNR status @ -No What co-morbidities impacted this encounter? (DM, HTN, Smoking, COPD, CAD, Cancer, CVA, ARF, Chemo, Hep., AIDS, mental health diagnosis, sleep apnea, morbid obesity)? @ -History of CVA, history of migraine, history of anemia Was patient admitted / discharged? Hospital course, mention meds given and route, prescriptions, significant lab abnormalities, going to OR and other pertinent info. @ -Hospital course was discharged Undiagnosed new problem with uncertain prognosis? @ -No Drug Therapy requiring intensive monitoring for toxicity (Heparin, Nitro, Insulin, Cardizem)? @ -No Were any procedures done? @ -No Diagnosis/symptom? @ -Costochondritis, musculoskeletal chest pain, myofascial pain] Acute, or Chronic, or Acute on Chronic? @ -Acute Uncomplicated (without systemic symptoms) or Complicated (systemic symptoms)? @ -Placated Side effects of treatment? @ -No Exacerbation, Progression, or Severe Exacerbation? @ -No Poses a threat to life or bodily function? How? (Chest pain, [place], DC, pneumonia, PE, COPD, DKA, ARF, appy, cholecystitis, CVA, Diverticulitis, Homicidal, Suicidal, threat to staff... and all critical care pts) @ -No Disposition Clinical Impression: Atypical chest pain, Costochondral chest pain, Myofascial pain syndrome Disposition: HOME SELF-CARE Condition: Good Instructions (If sedation given, give patient instructions): Costochondritis (ED) Additional Instructions: Warm compresses to the affected area, [id number] ibuprofen 3-4 200 mg tablets every 6 hours as needed. Follow-up with Dr. Hammonds Is patient prescribed a controlled substance at d/c from ED?: No Referrals: Maisha Hammonds MD [Primary Care Provider] - 1-2 days Time of Disposition: 18:03 Decision Date: 10/24/23 Decision Time: 18:03
[2023-10-24] MEDS: fentaNYL (PF) 50 MCG/ML 2 ML AMP IV STA (16:53)
[2023-10-24 17:01] VITALS: RESP 16
[2023-10-24 18:12] VITALS: BP 105/93; PULSE 64
== END 2023-10-24 18:22 | disposition home or self-care (01) ==
LOC: EC 13:45
DX: R07.89 Other chest pain (principal); I44.0 Atrioventricular block, first degree; M79.18 Myalgia, other site; Z88.1 Allergy status to other antibiotic agents; Z91.041 Radiographic dye allergy status; Z88.8 Allergy status to other drugs, medicaments and biological substances; Z88.0 Allergy status to penicillin
CPT/HCPCS: 99285 ×2; 96374 ×2; 96375 ×2; 36415; 93005; 85379; 83880; 80053; 83690; 83735; 84484; 85025; 85610; 85730; 71046; J3010; J1885

== ENCOUNTER 2023-11-03 21:16 | Emergency (ER) | payer OTHER ==
--- NOTE | 2023-11-03 21:43 | ED ---
General Adult HPI - General Source: patient, EMS Mode of arrival: EMS Limitations: no limitations <Nicolette Hernandez - Last Filed: 11/03/23 23:57> <Malcolm Pipre - Last Filed: 11/05/23 10:45> - General Stated complaint: Pain Time Seen by Provider: 11/03/23 21:29 - History of Present Illness Initial comments: Is a 57-year-old female with history of conversion disorder who presents to the ER today for evaluation of chest pain which she reports he has been having for a while. Patient states she deals with this chest pain on a daily basis but today it seems to be worse. She describes a sudden sharp stabs or zaps. Usually it does not last a long but today seems to be lasting longer. No fever chills cough or shortness of breath. Patient does currently have a event monitor in place due to recurrent syncope and reportedly failed tilt table test. (Nicolette Hernandez) - Related Data Home Medications Medication Instructions Recorded Confirmed lamoTRIgine [LaMICtal] 200 mg PO BID 09/26/18 10/24/23 Sertraline [Zoloft] 150 mg PO DAILY 03/22/22 10/24/23 diazePAM [Valium] 10 mg PO HS 08/02/23 10/24/23 Previous Rx's Medication Instructions Recorded Aspirin 81 mg PO DAILY #30 tab 10/05/23 Atorvastatin [Lipitor] 20 mg PO HS #30 tab 10/05/23 Allergies Allergy/AdvReac Type Severity Reaction Status Date / Time cephalexin [From Keflex] Allergy Rash/Hives Verified 11/03/23 21:36 codeine Allergy Rash/Hives Verified 11/03/23 21:36 erythromycin base Allergy Rash/Hives Verified 11/03/23 21:36 gadobutrol [From Gadavist] Allergy Anaphylaxis Verified 11/03/23 21:36 Gadolinium-Containing Allergy Anaphylaxis Verified 11/03/23 21:36 Contrast Medi iodine Allergy Anaphylaxis Verified 11/03/23 21:36 Penicillins Allergy Anaphylaxis Verified 11/03/23 21:36 vancomycin Allergy Anaphylaxis Verified 11/03/23 21:36 azithromycin AdvReac red face Verified 11/03/23 21:36 diphenhydramine AdvReac Confusion Verified 11/03/23 21:36 [From Benadryl] Review of Systems ROS Other: All systems not noted in ROS Statement are negative. <Nicolette Hernandez - Last Filed: 11/03/23 23:57> ROS Other: All systems not noted in ROS Statement are negative. <Malcolm Piper - Last Filed: 11/05/23 10:45> ROS Statement: Those systems with pertinent positive or pertinent negative responses have been documented in the HPI. Past Medical History Past Medical History: Cancer, CVA/TIA Additional Past Medical History / Comment(s): migraines, "stress seizures", swelling of left lower leg, insomnia, hx hiatal hernia, hx colon cancer, diarrhea, hx psoriasis, Leaky heart valve, episodes of "passing out", 3x blocked sweat glands currently. BLOOD TRANSFUSIONS FOR LOW HGB. tia 5 yrs ago no residual. uterine and colon ca x2. see dr [facility] History of Any Multi-Drug Resistant Organisms: MRSA Date of last positivie culture/infection: 08/10/19 MDRO Source:: URINE Past Surgical History: Appendectomy, Bowel Resection, Cholecystectomy, Ear Surgery, Hernia Repair, Hysterectomy, Orthopedic Surgery Additional Past Surgical History / Comment(s): frantz knee arthroscopy, hiatal hernia surgery, rt ear surgery to remove middle ear, lymph node biopsy right armpit. loop recorder, Past Anesthesia/Blood Transfusion Reactions: Postoperative Nausea & Vomiting (P ONV) Additional Past Anesthesia/Blood Transfusion Reaction / Comment(s): Pt has received blood in past without reaction. Type of Cardiac Device: Loop Device Placement Date:: 2016 states need to be removed everything fine now per patien Past Psychological History: Anxiety, Panic Disorder Smoking Status: Never smoker Past Alcohol Use History: None Reported Past Drug Use History: None Reported - Past Family History Mother Family Medical History: Coronary Artery Disease (CAD), Diabetes Mellitus Additional Family Medical History / Comment(s): . Father Family Medical History: No Reported History Additional Family Medical History / Comment(s): Father is healthy <Nicolette Hernandez P - Last Filed: 11/03/23 23:57> General Exam Limitations: no limitations <Nicolette Hernandez P - Last Filed: 11/03/23 23:57> - General Exam Comments Initial Comments: Physical Exam GENERAL: Patient noted to be resting comfortably prior to my entering the room once I entered the room she was writhing [id number] clutching her arms across her chest resist moving her arms for exam HENT: Normocephalic, Atraumatic. EYES: PERRL, EOMI PULMONARY: Unlabored respirations. No audible rales rhonchi or wheezing was noted. CARDIOVASCULAR: There is a regular rate and rhythm without any murmurs gallops or rubs. ABDOMEN: Soft and nontender with normal bowel sounds. SKIN: Skin is clear with no lesions or rashes and otherwise unremarkable. : Deferred NEUROLOGIC: Patient is alert and oriented x3. Moving all extremities spontaneously MUSCULOSKELETAL: Normal extremities with adequate strength and full range of motion. No lower extremity swelling or edema. No calf tenderness. (Nicolette Hernandez) Course Vital Signs 11/03/23 11/03/23 11/03/23 21:30 22:36 23:30 Temperature 97.5 F L Pulse Rate 83 82 71 Respiratory 22 12 22 Rate Blood Pressure 177/67 148/89 140/100 O2 Sat by Pulse 97 95 98 Oximetry 11/04/23 11/04/23 11/04/23 00:46 01:30 04:00 Temperature Pulse Rate 66 60 58 L Respiratory 14 16 16 Rate Blood Pressure 94/73 123/91 117/66 O2 Sat by Pulse 96 94 L 94 L Oximetry 11/04/23 05:26 Temperature 98.0 F Pulse Rate 68 Respiratory 16 Rate Blood Pressure 128/80 O2 Sat by Pulse 99 Oximetry EKG Findings - EKG Comments: EKG Findings:: Initial EKG was obtained at 2133 however patient's movement artifact altered interpretation, repeat EKG obtained at 2252 with a rate of 71 rhythm is sinus with first-degree AV block and bifascicular block. No acute ST elevations depressions no evidence of ischemia or infarction no change from EKG obtained last month. <Nicolette Hernandez - Last Filed: 11/03/23 23:57> Medical Decision Making - Lab Data Result diagrams: 11/03/23 21:58 11/03/23 21:58 <Nicolette Hernandez - Last Filed: 11/03/23 23:57> - Lab Data Result diagrams: 11/03/23 21:58 11/03/23 21:58 <Malcolm Piper - Last Filed: 11/05/23 10:45> - Medical Decision Making Was pt. sent in by a medical professional or institution (PRAVIN Mendez, ELECTRICAL WORKER, urgent care, hospital, or prison...) When possible be specific @ -No Did you speak to anyone other than the patient for history (EMS, parent, family, police, friend...)? What history was obtained from this source @ -EMS, parents Did you review nursing and triage notes (agree or disagree)? Why? @ -I reviewed and agree with nursing and triage notes Were old charts reviewed (outside hosp., previous admission, EMS record, old EKG, old radiological studies, urgent care reports/EKG's, prison records)? Report findings @ -Previous visits, cardiac catheterization report were reviewed year, including Differential Diagnosis (chest pain, altered mental status, abdominal pain women, abdominal pain men, vaginal bleeding, weakness, fever, dyspnea, syncope, headache, dizziness, GI bleed, back pain, seizure, CVA, palpatations, mental health)? @ -Not applicable EKG interpreted by me (3pts min.). @ -As above X-rays interpreted by me (1pt min.). @ -No acute findings CT interpreted by me (1pt min.). @ -None done U/S interpreted by me (1pt. min.). @ -None done What testing was considered but not performed or refused? (CT, X-rays, U/S, labs)? Why? @ -None What meds were considered but not given or refused? Why? @ -None Did you discuss the management of the patient with other professionals (professionals i.e. PRAVIN Mendez, ELECTRICAL WORKER, lab, RT, psych nurse, social media marketer, motorboat mechanic, teacher, multisensor intelligence officer, gearcase assembler)? Give summary @ -No Was smoking cessation discussed for >3mins.? @ -No Was critical care preformed (if so, how long)? @ -No Were there social determinants of health that impacted care today? How? (Homelessness, low income, unemployed, alcoholism, drug addiction, transportation, low edu. Level, literacy, decrease access to med. care, residential, rehab)? @ -No Was there de-escalation of care discussed even if they declined (Discuss DNR or withdrawal of care, Hospice)? DNR status @ -No What co-morbidities impacted this encounter? (DM, HTN, Smoking, COPD, CAD, Cancer, CVA, ARF, Chemo, Hep., AIDS, mental health diagnosis, sleep apnea, morbid obesity)? @ -Obesity Was patient admitted / discharged? Hospital course, mention meds given and route, prescriptions, significant lab abnormalities, going to OR and other pertinent info. @ -Signed out to Dr Piper (Nicolette Hernandez) I received this patient as signout pending the repeat troponin. This came back negative and the patient stable for discharge with further outpatient care. Was patient admitted / discharged? Hospital course, mention meds given and route, prescriptions, significant lab abnormalities, going to OR and other pertinent info. @ -[hospital course] Undiagnosed new problem with uncertain prognosis? @ -[No] Drug Therapy requiring intensive monitoring for toxicity (Heparin, Nitro, Insulin, Cardizem)? @ -[No] Were any procedures done? @ -[No] Diagnosis/symptom? @ -[Chest pain Conversion disorder, chronic Acute, or Chronic, or Acute on Chronic? @ -[Acute Uncomplicated (without systemic symptoms) or Complicated (systemic symptoms)? @ -[Uncomplicated Side effects of treatment? @ -[No] Exacerbation, Progression, or Severe Exacerbation? @ -[No] Poses a threat to life or bodily function? How? (Chest pain, [place], [place], pneumonia, PE, COPD, DKA, ARF, appy, cholecystitis, CVA, Diverticulitis, Homicidal, Suicidal, threat to staff... and all critical care pts) @ -[No] (Malcolm Piper) - Lab Data Lab Results 11/03/23 11/03/23 11/03/23 Range/Units 21:07 21:58 21:58 WBC 9.4 (3.8-10.6) k/uL RBC 4.16 (3.80-5.40) m/uL Hgb 12.5 (11.4-16.0) gm/dL Hct 37.1 (34.0-46.0) % MCV 89.1 (80.0-100.0) fL MCH 29.9 (25.0-35.0) pg MCHC 33.6 (31.0-37.0) g/dL RDW 13.7 (11.5-15.5) % Plt Count 265 (150-450) k/uL MPV 7.4 Neutrophils % 71 % Lymphocytes % 22 % Monocytes % 4 % Eosinophils % 1 % Basophils % 0 % Neutrophils # 6.7 (1.3-7.7) k/uL Lymphocytes # 2.1 (1.0-4.8) k/uL Monocytes # 0.4 (0-1.0) k/uL Eosinophils # 0.1 (0-0.7) k/uL Basophils # 0.0 (0-0.2) k/uL D-Dimer (<0.60) mg/L FEU Sodium 140 (137-145) mmol/L Potassium 3.8 (3.5-5.1) mmol/L Chloride 107 (98-107) mmol/L Carbon Dioxide 24 (22-30) mmol/L Anion Gap 9 mmol/L BUN 20 H (7-17) mg/dL Creatinine 0.92 (0.52-1.04) mg/dL Est GFR (CKD-EPI)AfAm 80 (>60 ml/min/1.73 sqM) Est GFR (CKD-EPI)NonAf 70 (>60 ml/min/1.73 sqM) Glucose 106 H (74-99) mg/dL Plasma Lactic Acid Williams 1.6 (0.7-2.0) mmol/L Calcium 9.2 (8.4-10.2) mg/dL Total Bilirubin 0.6 (0.2-1.3) mg/dL AST 32 (14-36) U/L ALT 20 (4-34) U/L Alkaline Phosphatase 196 H (38-126) U/L Troponin I (0.000-0.034) ng/mL C-Reactive Protein 1.6 H (<1.0) mg/dL Total Protein 6.9 (6.3-8.2) g/dL Albumin 4.2 (3.5-5.0) g/dL Lipase 72 (23-300) U/L 11/03/23 11/03/23 11/04/23 Range/Units 21:58 21:58 00:04 WBC (3.8-10.6) k/uL RBC (3.80-5.40) m/uL Hgb (11.4-16.0) gm/dL Hct (34.0-46.0) % MCV (80.0-100.0) fL MCH (25.0-35.0) pg MCHC (31.0-37.0) g/dL RDW (11.5-15.5) % Plt Count (150-450) k/uL MPV Neutrophils % % Lymphocytes % % Monocytes % % Eosinophils % % Basophils % % Neutrophils # (1.3-7.7) k/uL Lymphocytes # (1.0-4.8) k/uL Monocytes # (0-1.0) k/uL Eosinophils # (0-0.7) k/uL Basophils # (0-0.2) k/uL D-Dimer 0.46 (<0.60) mg/L FEU Sodium (137-145) mmol/L Potassium (3.5-5.1) mmol/L Chloride (98-107) mmol/L Carbon Dioxide (22-30) mmol/L Anion Gap mmol/L BUN (7-17) mg/dL Creatinine (0.52-1.04) mg/dL Est GFR (CKD-EPI)AfAm (>60 ml/min/1.73 sqM) Est GFR (CKD-EPI)NonAf (>60 ml/min/1.73 sqM) Glucose (74-99) mg/dL Plasma Lactic Acid Williams (0.7-2.0) mmol/L Calcium (8.4-10.2) mg/dL Total Bilirubin (0.2-1.3) mg/dL AST (14-36) U/L ALT (4-34) U/L Alkaline Phosphatase (38-126) U/L Troponin I <0.012 <0.012 (0.000-0.034) ng/mL C-Reactive Protein (<1.0) mg/dL Total Protein (6.3-8.2) g/dL Albumin (3.5-5.0) g/dL Lipase (23-300) U/L Disposition <Nicolette Hernandez - Last Filed: 11/03/23 23:57> Is patient prescribed a controlled substance at d/c from ED?: No <Malcolm Piper - Last Filed: 11/05/23 10:45> Clinical Impression: Chest pain Disposition: HOME SELF-CARE Condition: Good Instructions (If sedation given, give patient instructions): Chest Pain (ED) Referrals: Maisha Hammonds MD [Primary Care Provider] - 1-2 days
[2023-11-03] MEDS: HYDROmorphone 0.5 MG/0.5 ML SYRINGE IVP STA (21:50)
[2023-11-03] MEDS: NITROGLYCERIN SL TABS 0.4 MG TAB SUBLINGUAL STA (21:50)
[2023-11-03 22:09] LABS: Basophils % (A) 0 %; Eosinophils # (A) 0.1 k/uL (0-0.7); Eosinophils % (A) 1 %; HCT 37.1 % (34.0-46.0); HGB 12.5 gm/dL (11.4-16.0); Lymphocytes # (A) 2.1 k/uL (1.0-4.8); Lymphocytes % (A) 22 %; MCH 29.9 pg (25.0-35.0); MCHC 33.6 g/dL (31.0-37.0); MCV 89.1 fL (80.0-100.0); Mean Platelet Volume 7.4; Monocytes # (A) 0.4 k/uL (0-1.0); Monocytes % (A) 4 %; Neutrophils # (A) 6.7 k/uL (1.3-7.7); Neutrophils % (A) 71 %; Platelet Count 265 k/uL (150-450); RBC 4.16 m/uL (3.80-5.40); RDW 13.7 % (11.5-15.5); WBC 9.4 k/uL (3.8-10.6)
[2023-11-03 22:21] LABS: ALT 20 U/L (4-34); AST 32 U/L (14-36); African American GFR (CKD) 80 (>60 ml/min/1.73 sqM); Albumin 4.2 g/dL (3.5-5.0); Alkaline Phosphatase 196 U/L (38-126); Anion Gap 9 mmol/L; Blood Urea Nitrogen 20 mg/dL (7-17); C Reactive Protein 1.6 mg/dL (<1.0); Calcium 9.2 mg/dL (8.4-10.2); Carbon Dioxide 24 mmol/L (22-30); Chloride 107 mmol/L (98-107); Glucose 106 mg/dL (74-99); Lipase 72 U/L (23-300); Non-African American GFR(CKD) 70 (>60 ml/min/1.73 sqM); Potassium 3.8 mmol/L (3.5-5.1); Sodium 140 mmol/L (137-145); Total Bilirubin 0.6 mg/dL (0.2-1.3); Total Protein 6.9 g/dL (6.3-8.2)
--- NOTE | 2023-11-03 22:37 | XR ---
EXAMINATION TYPE: XR chest 1V portable DATE OF EXAM: 11/03/2023 9:48 PM CLINICAL INDICATION:Female, 57 years old with history of chest pain COMPARISON: Chest radiograph 10/24/2023 TECHNIQUE: XR chest 1V portable Frontal view of the chest. FINDINGS: Lungs/Pleura: There is no evidence of pneumothorax. Pulmonary vascularity: Unremarkable. Heart/mediastinum: Cardiomediastinal silhouette is stable. A loop recorder projects over the left tho rax over the heart. Musculoskeletal: No acute osseous pathology. IMPRESSION: No acute cardiopulmonary disease/process.
[2023-11-04] MEDS: HYDROmorphone 0.5 MG/0.5 ML SYRINGE IVP STA (00:40)
[2023-11-04 01:44] VITALS: RESP 16
[2023-11-04 05:27] VITALS: BP 128/80; PULSE 68; TEMP 98
== END 2023-11-04 05:18 | disposition home or self-care (01) ==
LOC: EC 21:16
DX: R07.9 Chest pain, unspecified (principal); Z88.0 Allergy status to penicillin; Z88.1 Allergy status to other antibiotic agents; Z88.8 Allergy status to other drugs, medicaments and biological substances; Z91.041 Radiographic dye allergy status; Z90.49 Acquired absence of other specified parts of digestive tract; Z86.73 Personal history of transient ischemic attack (TIA), and cerebral infarction without residual deficits
CPT/HCPCS: 93005; 36415; 85379; 80053; 83605; 83690; 84484 ×2; 85025; 86140; 71045; 99285; 96374; 96376; J1170 ×2

== ENCOUNTER → 2024-01-20 | Outpatient (CLI) | payer OTHER ==
--- NOTE | 2024-01-20 15:53 | CT ---
EXAMINATION TYPE: CT ChestAbdPelvis wo con CT DLP: 979.5 mGycm, Automated exposure control for dose reduction was used. DATE OF EXAM: 01/20/2024 3:40 PM COMPARISON: CT chest abdomen pelvis 08/03/2023, 12/08/2022, 03/09/2022, MR liver 01/08/2020, 09/04/2019 CLINICAL INDICATION:Female, 58 years old with history of C18.2 COLON CA; PHH, HX of colon Ca Technique: Multiple axial images of the chest, abdomen, and pelvis were obtained without administrati on intravenous or oral contrast. This limits evaluation. Two-dimensional coronal and sagittal reconst ructions were obtained. Findings: CHEST: LUNGS/ PLEURA: Right lower lobe lateral pulmonary nodule measuring 3 mm (series 4, image 34). Stable back to at least 2013. No new pulmonary nodules. No focal consolidation, pneumothorax or pleural effu ariel. AIRWAY: Patent and unremarkable. HEART: Mildly enlarged. No pericardial effusion. Small coronary artery calcifications. MEDIASTINUM: No gross evidence of adenopathy. VASCULATURE: No aortic aneurysm. MUSCULOSKELETAL: No acute osseous abnormalities. SOFT TISSUES/LYMPH NODES: Loop recorder within the left upper chest anteriorly again. LOWER NECK: No significant findings. ABDOMEN: ABDOMEN LIVER: Stable right hepatic lobe 2.2 cm hypodense lesion (series 3, image 49). Demonstrated enhanceme nt on prior CTs. GALLBLADDER AND BILE DUCTS: Cholecystectomy clips are present. No biliary ductal dilatation. PANCREAS: Mild fatty infiltration the pancreatic parenchyma most proximal in the pancreatic head and neck SPLEEN: Unremarkable noncontrast appearance ADRENAL GLANDS: Unremarkable noncontrast appearance. KIDNEYS AND URETERS: No evidence of hydronephrosis or renal calculus. PELVIS BLADDER: Incompletely distended but grossly unremarkable. REPRODUCTIVE: The uterus is surgically absent. ABDOMEN & PELVIS STOMACH AND BOWEL: No evidence of bowel obstruction. Postsurgical changes to the colon. No abnormal s oft tissue visualized. Postsurgical changes at the gastroesophageal junction. PERITONEUM: No evidence of pneumoperitoneum or free fluid. VASCULATURE: Minimal atherosclerotic calcifications are present throughout the abdominal aorta and it s branches. No abdominal aortic aneurysm. Pelvic phleboliths. MUSCULOSKELETAL: No acute osseous abnormalities LYMPH NODES: No evidence for lymphadenopathy. SOFT TISSUE/ABDOMINAL WALL: Post surgical changes of the midline anterior abdominal wall. IMPRESSION: 1. No definitive evidence for local recurrence or metastatic disease. 2. Post surgical changes to the colon. 3. Right lower lobe 3 mm pulmonary nodule is stable to at least 2014. Considered benign. 4. Stable right hepatic lobe hypodense lesion dating back to 2019 considered benign. Likely represen ts FNH or adenoma on prior MR. [facility], , 01/20/2024 3:51 PM
== END | disposition home or self-care (01) ==
LOC: RADCTMAIN 15:06
PROVIDERS: ATTEND Internal Medicine Hematology & Oncology
DX: C18.2 Malignant neoplasm of ascending colon
CPT/HCPCS: 71250; 74176

== ENCOUNTER 2024-02-06 14:48 | Observation (INO) | payer OTHER ==
[2024-02-06] MEDS: ASPIRIN 81 MG PO STA (15:30)
--- NOTE | 2024-02-06 15:31 | ED ---
General Adult HPI - General Chief complaint: Chest Pain Stated complaint: syncope Time Seen by Provider: 02/06/24 15:00 Source: patient, EMS, RN notes reviewed, old records reviewed Mode of arrival: EMS - History of Present Illness Initial comments: 58-year-old female who presents to the emergency department with past medical history significant for anxiety. Patient states she thought she was having anxiety about 5 hours ago patient states that she started having left-sided chest discomfort which also worked its way into the arm which is not typical of her anxiety. Patient states that has persisted and then she passed out and woke up and she continued to have the arm and chest pain so she came to the emergency department. Patient denies shortness of breath. Patient denies any fever chills or cough. Patient denies any sweating episodes. Patient denies any history of hypertension high cholesterol or diabetes. Patient denies smoking. Patient denies any headache patient denies any numbness or weakness currently. - Related Data Home Medications Medication Instructions Recorded Confirmed lamoTRIgine [LaMICtal] 200 mg PO BID 09/26/18 02/06/24 Sertraline [Zoloft] 100 mg PO BID 03/22/22 02/06/24 diazePAM [Valium] 10 mg PO HS 08/02/23 02/06/24 Allergies Allergy/AdvReac Type Severity Reaction Status Date / Time cephalexin [From Keflex] Allergy Rash/Hives Verified 02/06/24 16:44 codeine Allergy Rash/Hives Verified 02/06/24 16:44 erythromycin base Allergy Rash/Hives Verified 02/06/24 16:44 gadobutrol [From Gadavist] Allergy Anaphylaxis Verified 02/06/24 16:44 Gadolinium-Containing Allergy Anaphylaxis Verified 02/06/24 16:44 Contrast Medi iodine Allergy Anaphylaxis Verified 02/06/24 16:44 Penicillins Allergy Anaphylaxis Verified 02/06/24 16:44 vancomycin Allergy Anaphylaxis Verified 02/06/24 16:44 azithromycin AdvReac red face Verified 02/06/24 16:44 diphenhydramine AdvReac Confusion Verified 02/06/24 16:44 [From Benadryl] Review of Systems ROS Statement: Those systems with pertinent positive or pertinent negative responses have been documented in the HPI. ROS Other: All systems not noted in ROS Statement are negative. Past Medical History Past Medical History: Cancer, CVA/TIA Additional Past Medical History / Comment(s): migraines, "stress seizures", swelling of left lower leg, insomnia, hx hiatal hernia, hx colon cancer, diarrhea, hx psoriasis, Leaky heart valve, episodes of "passing out", 3x blocked sweat glands currently. BLOOD TRANSFUSIONS FOR LOW HGB. tia 5 yrs ago no residual. uterine and colon ca x2. see dr Davenport H & P History of Any Multi-Drug Resistant Organisms: MRSA Date of last positivie culture/infection: 08/10/19 MDRO Source:: URINE Past Surgical History: Appendectomy, Bowel Resection, Cholecystectomy, Ear Surgery, Hernia Repair, Hysterectomy, Orthopedic Surgery Additional Past Surgical History / Comment(s): frantz knee arthroscopy, hiatal silvana ia surgery, rt ear surgery to remove middle ear, lymph node biopsy right armpit. loop recorder, Past Anesthesia/Blood Transfusion Reactions: Postoperative Nausea & Vomiting ( PONV) Additional Past Anesthesia/Blood Transfusion Reaction / Comment(s): Pt has received blood in past without reaction. Type of Cardiac Device: Loop Device Placement Date:: 2016 states need to be removed everything fine now per patien Past Psychological History: Anxiety, Panic Disorder Smoking Status: Never smoker Past Alcohol Use History: Occasional Past Drug Use History: None Reported - Past Family History Mother Family Medical History: Coronary Artery Disease (CAD), Diabetes Mellitus Additional Family Medical History / Comment(s): . Father Family Medical History: No Reported History Additional Family Medical History / Comment(s): Father is healthy General Exam - General Exam Comments Initial Comments: GENERAL: Patient is well-developed and well-nourished. Patient is nontoxic and well- hydrated and is in mild distress. ENT: Neck is soft and supple. No significant lymphadenopathy is noted. Oropharynx is clear. Moist mucous membranes. Neck has full range of motion without eliciting any pain. EYES: The sclera were anicteric and conjunctiva were pink and moist. Extraocular movements were intact and pupils were equal round and reactive to light. Eyelids were unremarkable. PULMONARY: Unlabored respirations. Good breath sounds bilaterally. No audible rales rhonchi or wheezing was noted. CARDIOVASCULAR: There is a regular rate and rhythm without any murmurs gallops or rubs. ABDOMEN: Soft and nontender with normal bowel sounds. SKIN: Skin is clear with no lesions or rashes and otherwise unremarkable. NEUROLOGIC: Patient is alert and oriented x3. Cranial nerves II through XII are grossly intact. Motor and sensory are also intact. Normal speech, volume and content. Symmetrical smile. MUSCULOSKELETAL: Normal extremities with adequate strength and full range of motion. LYMPHATICS: No significant lymphadenopathy is noted PSYCHIATRIC: Patient is anxious Course Vital Signs 02/06/24 02/06/24 02/06/24 14:51 15:36 16:05 Temperature 98.3 F Pulse Rate 84 78 94 Respiratory 24 20 18 Rate Blood Pressure 116/67 110/97 O2 Sat by Pulse 95 96 98 Oximetry Medical Decision Making - Medical Decision Making EKG is interpreted by myself but EKG shows a sinus rhythm at 88 bpm NE interval 126 QRS is 165 QT interval 4 7 QTc is 453. Patient EKG shows a right bundle branch block. Was pt. sent in by a medical professional or institution (PRAVIN Mendez, SKEIN INSPECTOR, urgent care, hospital, or senior living...) When possible be specific @ -No Did you speak to anyone other than the patient for history (EMS, parent, family, police, friend...)? What history was obtained from this source @ -No Did you review nursing and triage notes (agree or disagree)? Why? @ -I reviewed and agree with nursing and triage notes Were old charts reviewed (outside hosp., previous admission, EMS record, old EKG, old radiological studies, urgent care reports/EKG's, senior living records)? Report findings @ -No old charts were reviewed Differential Diagnosis? @ -Differential Chest Pain: Stable Angina, Unstable Angina, STEMI, NSTEMI Aortic Dissection, Pneumothorax, Musculoskeletal, Esophageal Spasm GERD, Cholecystitis, Pancreatitis, Zoster, this is not meant to be an all-inclusive list. Differential Syncope: Valvular disease, hypertrophic cardiomyopathy, pulmonary embolism, tamponade, tachycardia, bradycardia, MS, hypovolemia, hemorrhage, dissection, anemia, intracranial hemorrhage, seizure, hypoglycemia, carbon monoxide poisoning, this is not meant to be an all-inclusive list. EKG interpreted by me (3pts min.). @ -As above X-rays interpreted by me (1pt min.). @ -Chest x-ray shows no acute abnormality CT interpreted by me (1pt min.). @ -None done U/S interpreted by me (1pt. min.). @ -None done What testing was considered but not performed or refused? (CT, X-rays, U/S, labs)? Why? @ -None What meds were considered but not given or refused? Why? @ -None Did you discuss the management of the patient with other professionals (professionals i.e. , PA, SKEIN INSPECTOR, lab, RT, psych nurse, social science teacher, business lawyer, teacher, deputy probation officer, case finisher)? Give summary @ -I spoke with [facility] and they agreed to admit the patient Was smoking cessation discussed for >3mins.? @ -No Was critical care preformed (if so, how long)? @ -No Were there social determinants of health that impacted care today? How? (Homelessness, low income, unemployed, alcoholism, drug addiction, transportation, low edu. Level, literacy, decrease access to med. care, correction, rehab)? @ -No Was there de-escalation of care discussed even if they declined (Discuss DNR or withdrawal of care, Hospice)? DNR status @ -No What co-morbidities impacted this encounter? (DM, HTN, Smoking, COPD, CAD, Cancer, CVA, ARF, Chemo, Hep., AIDS, mental health diagnosis, sleep apnea, morbid obesity)? @ -None Was patient admitted / discharged? Hospital course, mention meds given and route, prescriptions, significant lab abnormalities, going to OR and other pertinent info. @ -Patient received nitroglycerin sublingual and she stated it took away her chest pain but she continues to have some arm pain. Patient does have Nitropaste and was given aspirin as well. [facility] Undiagnosed new problem with uncertain prognosis? @ -No Drug Therapy requiring intensive monitoring for toxicity (Heparin, Nitro, Insulin, Cardizem)? @ -No Were any procedures done? @ -No Diagnosis/symptom? @ -Chest pain Acute, or Chronic, or Acute on Chronic? @ -Acute Uncomplicated (without systemic symptoms) or Complicated (systemic symptoms)? @ -Complicated Side effects of treatment? @ -No Exacerbation, Progression, or Severe Exacerbation? @ -No Poses a threat to life or bodily function? How? (Chest pain, USA, MS, pneumonia, PE, COPD, DKA, ARF, appy, cholecystitis, CVA, Diverticulitis, Homicidal, Suicidal, threat to staff... and all critical care pts) @ -Yes this could lead to an MS and endorgan dysfunction Diagnosis/symptom? @ -Syncope Acute, or Chronic, or Acute on Chronic? @ -Acute Uncomplicated (without systemic symptoms) or Complicated (systemic symptoms)? @ -Complicated Side effects of treatment? @ -None Exacerbation, Progression, or Severe Exacerbation] @ -No Poses a threat to life or bodily function? @ -No - Lab Data Result diagrams: 02/06/24 15:28 02/06/24 15: Lab Results 02/06/24 02/06/24 02/06/24 Range/Units 15:28 15: 15:28 WBC 9.8 (3.8-10.6) k/uL RBC 4.26 (3.80-5.40) m/uL Hgb 12.4 (11.4-16.0) gm/dL Hct 37.8 (34.0-46.0) % MCV 88.7 (80.0-100.0) fL MCH 29.2 (25.0-35.0) pg MCHC 32.9 (31.0-37.0) g/dL RDW 13.8 (11.5-15.5) % Plt Count 281 (150-450) k/uL MPV 7.7 Neutrophils % 72 % Lymphocytes % 22 % Monocytes % 3 % Eosinophils % 1 % Basophils % 0 % Neutrophils # 7.1 (1.3-7.7) k/uL Lymphocytes # 2.2 (1.0-4.8) k/uL Monocytes # 0.3 (0-1.0) k/uL Eosinophils # 0.1 (0-0.7) k/uL Basophils # 0.0 (0-0.2) k/uL PT 9.8 L (10.0-12.5) sec INR 0.9 (<1.2) APTT 24.5 (22.0-30.0) sec D-Dimer 0.27 (<0.60) mg/L FEU Sodium 138 (137-145) mmol/L Potassium 4.3 (3.5-5.1) mmol/L Chloride 108 H (98-107) mmol/L Carbon Dioxide 26 (22-30) mmol/L Anion Gap 4 mmol/L BUN 21 H (7-17) mg/dL Creatinine 0.78 (0.52-1.04) mg/dL Est GFR (CKD-EPI)AfAm >90 (>60 ml/min/1.73 sqM) Est GFR (CKD-EPI)NonAf 84 (>60 ml/min/1.73 sqM) Glucose 91 (74-99) mg/dL Calcium 9.4 (8.4-10.2) mg/dL Magnesium 1.9 (1.6-2.3) mg/dL Total Bilirubin 0.6 (0.2-1.3) mg/dL AST 25 (14-36) U/L ALT 15 (4-34) U/L Alkaline Phosphatase 152 H (38-126) U/L Troponin I (0.000-0.034) ng/mL Total Protein 7.0 (6.3-8.2) g/dL Albumin 4.1 (3.5-5.0) g/dL 02/06/24 Range/Units 15:28 WBC (3.8-10.6) k/uL RBC (3.80-5.40) m/uL Hgb (11.4-16.0) gm/dL Hct (34.0-46.0) % MCV (80.0-100.0) fL MCH (25.0-35.0) pg MCHC (31.0-37.0) g/dL RDW (11.5-15.5) % Plt Count (150-450) k/uL MPV Neutrophils % % Lymphocytes % % Monocytes % % Eosinophils % % Basophils % % Neutrophils # (1.3-7.7) k/uL Lymphocytes # (1.0-4.8) k/uL Monocytes # (0-1.0) k/uL Eosinophils # (0-0.7) k/uL Basophils # (0-0.2) k/uL PT (10.0-12.5) sec INR (<1.2) APTT (22.0-30.0) sec D-Dimer (<0.60) mg/L FEU Sodium (137-145) mmol/L Potassium (3.5-5.1) mmol/L Chloride (98-107) mmol/L Carbon Dioxide (22-30) mmol/L Anion Gap mmol/L BUN (7-17) mg/dL Creatinine (0.52-1.04) mg/dL Est GFR (CKD-EPI)AfAm (>60 ml/min/1.73 sqM) Est GFR (CKD-EPI)NonAf (>60 ml/min/1.73 sqM) Glucose (74-99) mg/dL Calcium (8.4-10.2) mg/dL Magnesium (1.6-2.3) mg/dL Total Bilirubin (0.2-1.3) mg/dL AST (14-36) U/L ALT (4-34) U/L Alkaline Phosphatase (38-126) U/L Troponin I <0.012 (0.000-0.034) ng/mL Total Protein (6.3-8.2) g/dL Albumin (3.5-5.0) g/dL Disposition Clinical Impression: Chest pain, Syncope Disposition: ADMITTED IP TO THIS [facility] Referrals: Maisha Hammonds MD [Primary Care Provider] - 1-2 days Time of Disposition: 17:25
[2024-02-06] MEDS: NITROGLYCERIN SL TABS 0.4 MG TAB SUBLINGUAL STA (15:32)
[2024-02-06] MEDS: SODIUM CHLORIDE 0.9% 500 ML 500 ML IV ONE (15:34)
[2024-02-06] MEDS: LORazepam 2 MG/ML INJ IV STA ×2 (15:35→18:35)
[2024-02-06 15:55] LABS: Basophils % (A) 0 %; Eosinophils # (A) 0.1 k/uL (0-0.7); Eosinophils % (A) 1 %; HCT 37.8 % (34.0-46.0); HGB 12.4 gm/dL (11.4-16.0); Lymphocytes # (A) 2.2 k/uL (1.0-4.8); Lymphocytes % (A) 22 %; MCH 29.2 pg (25.0-35.0); MCHC 32.9 g/dL (31.0-37.0); MCV 88.7 fL (80.0-100.0); Mean Platelet Volume 7.7; Monocytes # (A) 0.3 k/uL (0-1.0); Monocytes % (A) 3 %; Neutrophils # (A) 7.1 k/uL (1.3-7.7); Neutrophils % (A) 72 %; Platelet Count 281 k/uL (150-450); RBC 4.26 m/uL (3.80-5.40); RDW 13.8 % (11.5-15.5); WBC 9.8 k/uL (3.8-10.6)
--- NOTE | 2024-02-06 16:00 | XR ---
EXAMINATION TYPE: XR chest 2V DATE OF EXAM: 02/06/2024 COMPARISON: 10/25/2023 HISTORY: Chest pain TECHNIQUE: Frontal and lateral views of the chest are obtained. FINDINGS: There is no focal air space opacity, pleural effusion, or pneumothorax seen. The cardiac silhouette size is within normal limits. The osseous structures are intact. There is a loop recorde r. IMPRESSION: No acute cardiopulmonary process. [facility], Workstation: EMILY 02/06/2024 3:57 PM
[2024-02-06] MEDS: NITROGLYCERIN OINT 1 INCH/GM PACKET TOPICAL STA (16:06)
[2024-02-06 16:08] LABS: ALT 15 U/L (4-34); AST 25 U/L (14-36); African American GFR (CKD) >90 (>60 ml/min/1.73 sqM); Albumin 4.1 g/dL (3.5-5.0); Alkaline Phosphatase 152 U/L (38-126); Anion Gap 4 mmol/L; Blood Urea Nitrogen 21 mg/dL (7-17); Calcium 9.4 mg/dL (8.4-10.2); Carbon Dioxide 26 mmol/L (22-30); Chloride 108 mmol/L (98-107); Glucose 91 mg/dL (74-99); Magnesium 1.9 mg/dL (1.6-2.3); Non-African American GFR(CKD) 84 (>60 ml/min/1.73 sqM); Potassium 4.3 mmol/L (3.5-5.1); Sodium 138 mmol/L (137-145); Total Bilirubin 0.6 mg/dL (0.2-1.3)
[2024-02-06 16:10] LABS: INR 0.9 (<1.2)
[2024-02-06 16:11] LABS: Partial Thromboplastin Time 24.5 sec (22.0-30.0); Prothrombin Time 9.8 sec (10.0-12.5)
[2024-02-06] MEDS ORDERED: NITROGLYCERIN SL TABS 0.4 MG TAB SUBLINGUAL PRN (17:25)
[2024-02-06] MEDS: NITROGLYCERIN OINT 1 INCH/GM PACKET TOPICAL SCH (18:13)
[2024-02-06] MEDS: diazePAM 5 MG TAB PO SCH (21:29)
[2024-02-06] MEDS: lamoTRIgine 100 MG TAB PO SCH (21:29)
[2024-02-06] MEDS: SERTRALINE 100 MG TAB PO SCH (21:29)
[2024-02-07] MEDS ORDERED: AMINOPHYLLINE 500 MG/20 ML VIAL IV PRN (08:03)
[2024-02-07] MEDS ORDERED: CAFFEINE CITRATE 60 MG/3 ML VIAL IV PRN (08:03)
[2024-02-07] MEDS ORDERED: REGADENOSON 0.4 MG/5 ML SYRINGE IV PRN (08:03)
[2024-02-07 08:55] LABS: Chol/HDL Ratio 4.35 Ratio
[2024-02-07] MEDS ORDERED: ASPIRIN 325 MG TAB PO SCH (09:00)
--- NOTE | 2024-02-07 10:09 | P.CRDCN ---
History of Present Illness History of present illness: HISTORY OF PRESENT ILLNESS: This is a 58-year-old female with a past medical history significant for coronary artery disease, hypertension, hyperlipidemia, valvular heart disease, TIA, syncope, bifascicular block, seizure, and nonfunctional loop recorder. Patient follows in the office with Dr. Martin. We have been asked to see the patient in consultation for chest pain and syncope. Patient examined at the bedside. Patient states she has been having a lot of episodes of chest pain rec ently. She states that initially she thought it was related to her anxiety as this has been happening daily. She states yesterday she went to help one of her neighbors fix an iPad. She states that her chest pain started to get worse while she was at his house and also had pain into her left shoulder. She states that she then started to walk home and her neighbor helped her. She reports that she started to feel dizzy. She reports that she then passed out and did lose consciousness. At the time of examination this morning she denies chest pain or pressure. Denies shortness of breath. Vital signs are stable. DIAGNOSTICS: - EKG reveals sinus mechanism with right bundle branch block, first-degree AV block, left anterior fascicular block. Bifascicular block. - Chest xray negative for acute process - Laboratory data: WBC 9.8. Hemoglobin 12.4. Platelet count 281. D-dimer 0.27. Sodium 138. Potassium 4.3. BUN 21. Creatinine 0.78. Magnesium 1.9. Troponin negative x 3. - Current home cardiac medications include none. - Most recent echocardiogram obtained in December 2023 revealed ejection fraction 55 to 60%, moderate aortic regurgitation, mild mitral regurgitation, mild tricuspid regurgitation -Patient underwent Lexiscan stress test in August 2023 revealing small area of st ress-induced ischemic changes mid anterior wall - Cardiac catheterization history: August 2023 revealing mild to moderate CAD -Patient underwent event monitor in October 2023 revealing sinus rhythm with no arrhythmias noted -Patient also underwent tilt table testing in October 2023 in which patient had an episode of her knees buckling and eyes rolling back. Patient's blood pressure and heart rate were within normal range and never dropped. Patient also did not have any arrhythmias. No evidence of dysautonomia. REVIEW OF SYSTEMS: At the time of my exam: CONSTITUTIONAL: Denies fever or chills. HEENT: Denies blurred vision, vision changes, or eye pain. Denies hemoptysis CARDIOVASCULAR: Denies chest pain. Denies orthopnea. Denies PND. Denies palpitations RESPIRATORY: Denies shortness of breath. GASTROINTESTINAL: Denies abdominal pain. Denies nausea or vomiting. HEMATOLOGIC: Denies bleeding disorders. GENITOURINARY: Denies any blood in urine. SKIN: Denies pruitis. Denies rash. PHYSICAL EXAM: VITAL SIGNS: Reviewed. GENERAL: Well-developed in no acute distress. HEENT: Head is normocephalic. Pupils are equal, round. Sclerae anicteric. Mucous membranes of the mouth are moist. Neck supple. No JVD or thyromegaly LUNGS: Respirations even and unlabored. Lungs essentially clear to auscultation bilaterally. HEART: Regular rate and rhythm. S1 and S2 heard. ABDOMEN: Soft. Nondistended. Nontender. EXTREMITIES: Normal range of motion. No clubbing or cyanosis. Peripheral pulses intact. No lower extremity edema NEUROLOGIC: Awake and alert. Oriented x 3. ASSESSMENT: Chest pain, troponin negative x 3 Syncope Mild to moderate CAD, per cardiac catheterization in August 2023 Valvular heart disease including moderate aortic regurgitation, mild MR, mild TR Hypertension Hyperlipidemia History of syncope History of TIA Bifascicular block History of seizure History of loop recorder insertion, now nonfunctional Obesity: BMI 34.4 Anxiety PLAN: An acute coronary event has been ruled out Obtain 2D echo to assess cardiac structure and function Resume home cardiac medications Add aspirin 81 mg daily and atorvastatin 40 mg at night due to history of CAD Patient to undergo Lexiscan stress test today Event monitor to be placed at the time of discharge Further recommendations pending patient course Nurse practitioner note has been reviewed by physician. Signing provider agrees with the documented findings, assessment, and plan of care documented by CATTYMAN as a scribe. Past Medical History Past Medical History: Cancer, CVA/TIA, Syncope Additional Past Medical History / Comment(s): migraines, "stress seizures", swelling of left lower leg, insomnia, hx hiatal hernia, hx colon cancer, diarrhea, hx psoriasis, Leaky heart valve, episodes of "passing out", 3x blocked sweat glands currently. BLOOD TRANSFUSIONS FOR LOW HGB. tia 5 yrs ago no residual. uterine and colon ca x2. see dr Davenport H & P History of Any Multi-Drug Resistant Organisms: MRSA Date of last positivie culture/infection: 08/10/19 MDRO Source:: URINE Past Surgical History: Appendectomy, Bowel Resection, Cholecystectomy, Ear Surgery, Hernia Repair, Hysterectomy, Orthopedic Surgery Additional Past Surgical History / Comment(s): frantz knee arthroscopy, hiatal hernia surgery, rt ear surgery to remove middle ear, lymph node biopsy right armpit. loop recorder Past Anesthesia/Blood Transfusion Reactions: Postoperative Nausea & Vomiting (PONV) Additional Past Anesthesia/Blood Transfusion Reaction / Comment(s): Pt has received blood in past without reaction. Type of Cardiac Device: Loop Device Placement Date:: 2016 states need to be removed everything fine now per patien Past Psychological History: Anxiety, Panic Disorder Smoking Status: Never smoker Past Alcohol Use History: Occasional Past Drug Use History: None Reported Additional Drug Use History / Comment(s): tried edibles for sleep ( chocolate), pt aware not to use 24 hrs before procedure. - Past Family History Mother Family Medical History: Coronary Artery Disease (CAD), Diabetes Mellitus Additional Family Medical History / Comment(s): . Father Family Medical History: No Reported History Additional Family Medical History / Comment(s): Father is healthy Medications and Allergies Home Medications Medication Instructions Recorded Confirmed Type lamoTRIgine [LaMICtal] 200 mg PO BID 09/26/18 02/06/24 History Sertraline [Zoloft] 100 mg PO BID 03/22/22 02/06/24 History diazePAM [Valium] 10 mg PO HS 08/02/23 02/06/24 History Allergies Allergy/AdvReac Type Severity Reaction Status Date / Time cephalexin [From Keflex] Allergy Rash/Hives Verified 02/06/24 16:44 codeine Allergy Rash/Hives Verified 02/06/24 16:44 erythromycin base Allergy Rash/Hives Verified 02/06/24 16:44 gadobutrol [From Gadavist] Allergy Anaphylaxis Verified 02/06/24 16:44 Gadolinium-Containing Allergy Anaphylaxis Verified 02/06/24 16:44 Contrast Medi iodine Allergy Anaphylaxis Verified 02/06/24 16:44 Penicillins Allergy Anaphylaxis Verified 02/06/24 16:44 vancomycin Allergy Anaphylaxis Verified 02/06/24 16:44 azithromycin AdvReac red face Verified 02/06/24 16:44 diphenhydramine AdvReac Confusion Verified 02/06/24 16:44 [From Benadryl] Physical Exam Vitals: Vital Signs Temp Pulse Pulse Pulse Pulse Pulse Resp 02/07/24 08:00 78 69 77 02/07/24 07:28 97.9 F 65 16 02/07/24 07:00 97.9 F 66 16 02/07/24 01:24 97.6 F 73 16 02/06/24 20:26 98.3 F 75 16 02/06/24 19:29 80 16 02/06/24 18:22 74 22 02/06/24 16:05 94 18 02/06/24 15:36 78 20 02/06/24 14:51 98.3 F 84 24 BP BP BP BP BP Pulse Ox 02/07/24 08:00 166/82 167/76 120/75 02/07/24 07:28 120/62 98 02/07/24 07:00 120/62 98 02/07/24 01:24 167/75 97 02/06/24 20:26 141/65 97 02/06/24 19:29 128/64 97 02/06/24 18:22 157/85 99 02/06/24 16:05 110/97 98 02/06/24 15:36 96 02/06/24 14:51 116/67 95 Intake and Output 02/06/24 02/07/24 02/07/24 22:59 06:59 14:59 Intake Total 0 Balance 0 Intake: Oral 0 Other: Voiding Method Toilet Toilet # Voids 1 1 Weight 82.554 kg Results 02/06/24 15:28 02/06/24 15:28 Cardiac Enzymes 02/06/24 02/06/24 02/06/24 Range/Units 15:28 15:28 18:14 AST 25 (14-36) U/L Troponin I <0.012 <0.012 (0.000-0.034) ng/mL 02/06/24 Range/Units 21:20 AST (14-36) U/L Troponin I <0.012 (0.000-0.034) ng/mL Coagulation 02/06/24 Range/Units 15:28 PT 9.8 L (10.0-12.5) sec APTT 24.5 (22.0-30.0) sec Lipids 02/07/24 Range/Units 04:42 Triglycerides 187.00 H (0.00-149.00) mg/dL Cholesterol 246.00 H (0.00-200.00) mg/dL HDL Cholesterol 56.60 (40.00-60.00) mg/dL Cholesterol/HDL Ratio 4.35 Ratio CBC 02/06/24 Range/Units 15:28 WBC 9.8 (3.8-10.6) k/uL RBC 4.26 (3.80-5.40) m/uL Hgb 12.4 (11.4-16.0) gm/dL Hct 37.8 (34.0-46.0) % Plt Count 281 (150-450) k/uL Comprehensive Metabolic Panel 02/06/24 Range/Units 15:28 Sodium 138 (137-145) mmol/L Potassium 4.3 (3.5-5.1) mmol/L Chloride 108 H (98-107) mmol/L Carbon Dioxide 26 (22-30) mmol/L BUN 21 H (7-17) mg/dL Creatinine 0.78 (0.52-1.04) mg/dL Glucose 91 (74-99) mg/dL Calcium 9.4 (8.4-10.2) mg/dL AST 25 (14-36) U/L ALT 15 (4-34) U/L Alkaline Phosphatase 152 H (38-126) U/L Total Protein 7.0 (6.3-8.2) g/dL Albumin 4.1 (3.5-5.0) g/dL Current Medications Generic Name Dose Route Start Last Admin Trade Name Freq PRN Reason Stop Dose Admin Aminophylline 100 mg 02/07/24 08:03 Aminophylline 500 Mg/20 Ml Vial IV 02/07/24 12:03 ONCE PRN Patient Response Caffeine Citrate 60 mg 02/07/24 08:03 Caffeine Citrate 60 Mg/3 Ml Vial IV 02/07/24 12:03 ONCE PRN Patient Response Diazepam 10 mg 02/06/24 21:00 02/06/24 21:29 Diazepam 5 Mg Tab PO 10 mg HS EVERARDO Administration Lamotrigine 200 mg 02/06/24 21:00 02/07/24 08:18 Lamotrigine 100 Mg Tab PO 200 mg BID EVERARDO Administration Nitroglycerin 0.4 mg 02/06/24 17:25 Nitroglycerin Sl Tabs 0.4 Mg Tab SUBLINGUAL Q5M PRN Chest Pain Regadenoson 0.4 mg 02/07/24 08:03 Regadenoson 0.4 Mg/5 Ml Syringe IV 02/07/24 12:03 ONCE PRN Per Protocol Ropinirole HCl 1 mg 02/06/24 23:45 02/07/24 01:32 Ropinirole Hcl 1 Mg Tab PO 1 mg HS EVERARDO Administration Sertraline HCl 100 mg 02/06/24 21:00 02/07/24 08:18 Sertraline 100 Mg Tab PO 100 mg BID EVERARDO Administration Intake and Output 02/06/24 02/07/24 02/07/24 22:59 06:59 14:59 Intake Total 0 Balance 0 Intake: Oral 0 Other: Voiding Method Toilet Toilet # Voids 1 1 Weight 82.554 kg 02/06/24 15:28 02/06/24 15:28
[2024-02-07] MEDS: ASPIRIN 81 MG PO SCH (10:13)
[2024-02-07] MEDS ORDERED: AMINOPHYLLINE 500 MG/20 ML VIAL IV ONE (11:45)
--- NOTE | 2024-02-07 12:13 | CA ---
Lexiscan Nuclear Stress Test Report Name: Reshma Blackmon Exam Date: 02/07/2024 11:37 Exam Location: [place] Stress Ht (in): 61 Wt (lb): 182 BSA: 1.81 Ordering Phys: Yajaira House Referring Phys: SANCHO HARRIS Technologist: Faraz Briscoe Age: 58 Gender: F : 1965 Procedure CPT: Indications: Reflex order-Stress test ICD-10 Codes: Patient History: CHEST PAIN, PALPITATIONS, PRIOR STROKE, FAMILY HX OF HEART DISEASE, PRIOR HEART CATH Medications: Meds past 24 hrs: Pretest Chest Pain: STRESS TEST Lexiscan Protocol Exercise Duration (min:sec): 02:[address] Depressions (mm): Angina Score: Park Score: Resting HR (bpm): 66 Peak HR (bpm): 98 Resting BP (mmHg): 177 / 85 Peak BP (mmHg): 177 / 85 MPHR: 162 Target HR: 138 % MPHR: 60 METS: 1.0 Total Dose: Peak Dose: Atropine: Double Product: 68986 BP Response: Stress Termination: INFUSION COMPLETE Stress Symptoms: CHEST PAIN "7" AND AMINOPHYLLINE ADMIN Stress Summary: ECG ANALYSIS Resting ECG: Normal sinus rhythm with left bundle branch block Stress ECG: Patient was given intravenous Lexiscan as a protocol did not have chest pain and the EKG is inconclusive CONCLUSIONS Inconclusive EKG portion of the stress test secondary to left bundle branch block Cardiolite portion of the stress test will be reported separate Dr. Sancho Harris MD (Electronically Signed) Final Date: 07 February 2024 12:12
--- NOTE | 2024-02-07 12:28 | CA ---
Transthoracic Echo Report Name: Reshma Blackmon Age: 58 Gender: F : 1965 Exam Date: 02/07/2024 09:05 Exam Location: [place] Echo Ht (in): 61 Wt (lb): 182 Ordering Physician: Yajaira House Attending/Referring Phys: [id number], Lacy Freight Booker Su Fernandez RDCS Procedure CPT: Indications: LV function, syncope, CP Cardiac Hx: Technical Quality: Fair Contrast 1: Total Dose (mL): Contrast 2: Total Dose (mL): MEASUREMENTS (Male / Female) Normal Values 2D ECHO LV Diastolic Diameter PLAX 4.2 cm 4.2 - 5.9 / 3.9 - 5.3 cm LV Systolic Diameter PLAX 2.8 cm IVS Diastolic Thickness 1.8 cm 0.6 - 1.0 / 0.6 - 0.9 cm LVPW Diastolic Thickness 1.4 cm 0.6 - 1.0 / 0.6 - 0.9 cm LV Relative Wall Thickness 0.8 RV Internal Dim ED PLAX 4.0 cm LVOT Diameter 1.8 cm LA Volume 89.8 cm??? 18 - 58 / 22 - 52 cm??? LA Volume Index 46.7 cm???/m??? 16 - 28 cm???/m??? M-MODE Aortic Root Diameter MM 2.5 cm LA Systolic Diameter MM 3.8 cm LA Ao Ratio MM 1.5 AV Cusp Separation MM 1.6 cm DOPPLER AV Peak Velocity 172.2 cm/s AV Peak Gradient 11.9 mmHg AV Mean Velocity 129.0 cm/s AV Mean Gradient 7.3 mmHg AV Velocity Time Integral 41.2 cm AI Peak Velocity 476.7 cm/s AI Peak Gradient 90.9 mmHg AI Pressure Half Time 300.9 ms LVOT Peak Velocity 111.6 cm/s LVOT Peak Gradient 5.0 mmHg LVOT Velocity Time Integral 26.1 cm LVOT Stroke Volume 64.5 cm??? LVOT Stroke Volume Index 35.6 ml/m??? LVOT Cardiac Index 2215.4 cm???/min???m??? AV Area Cont Eq vti 1.6 cm??? AV Area Cont Eq pk 1.6 cm??? MV Area PHT 3.3 cm??? Mitral E Point Velocity 87.3 cm/s Mitral A Point Velocity 118.7 cm/s Mitral E to A Ratio 0.7 MV Deceleration Time 227.2 ms MV E' Velocity 3.7 cm/s Mitral E to MV E' Ratio 23.6 TR Peak Velocity 203.1 cm/s TR Peak Gradient 16.5 mmHg Right Ventricular Systolic Press 21.5 mmHg FINDINGS Left Ventricle Severely increased septal wall thickness. Moderately increased posterior wall thickness. Left ventricular cavity size normal. Normal left ventricular systolic function with no obvious regional wall motion abnormalities. Left ventricular ejection fraction is estimated at 55-60 %. Grade 1 diastolic dysfunction. Right Ventricle Moderate right ventricular dilatation. Right ventricular systolic pressure within normal limits. Right Atrium Normal right atrial size. Left Atrium Severely increased left atrial volume. Mildly increased left atrial area. Mitral Valve Structurally normal mitral valve. [id number] mitral regurgitation. Aortic Valve Trileaflet aortic valve. No aortic stenosis. Trace to mild aortic regurgitation. Aortic valve sclerosis. Tricuspid Valve Structurally normal tricuspid valve. Mild tricuspid regurgitation. Pulmonic Valve Structurally normal pulmonic valve. Pericardium No pericardial effusion. Aorta Normal size aortic root and proximal ascending aorta. CONCLUSIONS Normal LV function Mild to moderate mitral regurgitation Previewed by: Dr. Sancho Harris MD (Electronically Signed) Final Date: 07 February 2024 12:27
--- NOTE | 2024-02-07 13:39 | NM ---
EXAMINATION TYPE: NM stress lexiscan cardiolite DATE OF EXAM: 02/07/2024 COMPARISON: NONE HISTORY: Syncope, chest pain TECHNIQUE: After the intravenous administration of 9.73 mCi Tc 99m Sestamibi - Cardiolite resting SP ECT images acquired 60 minutes post injection. At peak stress 25.1 mCi Tc 99m Sestamibi - Stress images obtained 48 minutes post injection The patient was stressed with 0.4mg Lexiscan. FINDINGS: There is a small defect along the inferior lateral wall near the cardiac apex on the stress images. N ormal radiotracer distribution is on the resting images. Stress-induced ischemic change appears to be present at this level. This is correlated with the polar maps. Ejection fraction of 58% is normal. Wall motion is normal IMPRESSION: 1. Small area of stress-induced ischemic change inferior lateral wall near the cardiac apex, reversib le on rest images. [facility], , 02/07/2024 1:37 PM
[2024-02-07] MEDS ORDERED: ALPRAZolam 0.5 MG TAB PO PRN (13:49)
[2024-02-07] MEDS ORDERED: ALPRAZolam 0.25 MG TAB PO PRN (13:49)
--- NOTE | 2024-02-07 15:59 | P.HPIM ---
History of Present Illness H&P Date: 02/07/24 This is a 58-year-old female who presented to the emergency department with chest pain on the left side that was radiating down her left arm. Patient reports she has significant anxiety although it was not typical of her normal anxiety and also reported to the ER physician that she passed out and woke up continuing to have chest pain and came to the emergency department for further evaluation. Patient follows with Dr. Hammonds in the outpatient setting with a past medical history of colon cancer, CVA, stress seizures and hypertension. Patient was admitted with cardiology evaluation. EKG showed sinus rhythm, chest x-ray showed no acute cardiopulmonary process, 2D echo was performed showing a normal LV function with mild to moderate mitral regurgitation and EF is 55 to 60% showing grade 1 diastolic dysfunction. Labs reviewed and within normal limits and D-dimer was negative. Sodium was 138, potassium 4.3, creatinine 0.78, magnesium 1.9, troponins were negative x 3. Patient was admitted to observation on telemetry monitoring. Patient evaluated by cardiology early this morning recommending stress testing which is pending at this time. REVIEW OF SYSTEMS: CONSTITUTIONAL: No fever, no malaise, no fatigue. HEENT: No recent visual problems or hearing problems. Denied any sore throat. CARDIOVASCULAR: Reports of chest pain that has lessened, orthopnea, PND, no palpitations, no syncope. PULMONARY: No shortness of breath, no cough, no hemoptysis. GASTROINTESTINAL: No diarrhea, no nausea, no vomiting, no abdominal pain. NEUROLOGICAL: No headaches, no weakness, no numbness. HEMATOLOGICAL: Denies any bleeding or petechiae. GENITOURINARY: Denies any burning micturition, frequency, or urgency. MUSCULOSKELETAL/RHEUMATOLOGICAL: Denies any joint pain, swelling, or any muscle pain. ENDOCRINE: Denies any polyuria or polydipsia. The rest of the 14-point review of systems is negative. PHYSICAL EXAMINATION: GENERAL: The patient is alert and oriented x3, not in any acute distress. Well developed, well nourished. Elderly appearing, obese HEENT: Pupils are round and equally reacting to light. EOMI. No scleral icterus. No conjunctival pallor. Normocephalic, atraumatic. No pharyngeal erythema. No thyromegaly. CARDIOVASCULAR: S1 and S2 muffled PULMONARY: Chest is clear to auscultation, no wheezing or crackles. ABDOMEN: Soft, obese, nontender, nondistended, normoactive bowel sounds. No palpable organomegaly. MUSCULOSKELETAL: No joint swelling or deformity. EXTREMITIES: No cyanosis, clubbing, or pedal edema. NEUROLOGICAL: Gross neurological examination did not reveal any focal deficits. SKIN: No rashes. Assessment: Chest pain, rule out ACS, troponins x 3 were negative Syncopal episode Coronary artery disease with recent catheterization in August 2023 History of valvular heart disease with moderate aortic regurgitation with mild mitral and tricuspid regurgitation Hypertension history Hyperlipidemia history History of anxiety with panic attacks History of TIA/CVA Bifascicular block History of seizures History of loop recorder insertion previously now nonfunctional Obesity with a BMI of 34.4 GI prophylaxis DVT prophylaxis Full code Plan: Patient was admitted under observation for cardiology evaluation. Patient underwent cardiology evaluation early this morning recommending a stress test and stress test revealed an inconclusive EKG portion of the stress test secondary to a left bundle branch block and concerns of a small area of stress-induced ischemic change at the inferior lateral wall near the cardiac apex with reversible on rest images. Patient will continue on telemetry monitoring and be n.p.o. at midnight and undergo cardiac catheterization Follow-up with a.m. labs and replace electrolytes per protocol Home medications reviewed and resumed as appropriate Possible discharge planning in the next 24 hours once cleared by cardiology if catheterization is clear. The impression and plan of care has been dictated by Nicolette Mosley, Nurse Practitioner as directed. Dr. Kuldeep MD I have performed a history and examination and MDM of this patient, discussed the same with the dictator, and agree with the dictator's assessment and plan as written ,documented as a scribe. Based on total visit time, I have performed more than 50% of the visit. Past Medical History Past Medical History: Cancer, CVA/TIA, Syncope Additional Past Medical History / Comment(s): migraines, "stress seizures", swelling of left lower leg, insomnia, hx hiatal hernia, hx colon cancer, diarrhea, hx psoriasis, Leaky heart valve, episodes of "passing out", 3x blocked sweat glands currently. BLOOD TRANSFUSIONS FOR LOW HGB. tia 5 yrs ago no residual. uterine and colon ca x2. see dr [facility] History of Any Multi-Drug Resistant Organisms: MRSA Date of last positivie culture/infection: 08/10/19 MDRO Source:: URINE Past Surgical History: Appendectomy, Bowel Resection, Cholecystectomy, Ear Surgery, Hernia Repair, Hysterectomy, Orthopedic Surgery Additional Past Surgical History / Comment(s): frantz knee arthroscopy, hiatal hernia surgery, rt ear surgery to remove middle ear, lymph node biopsy right armpit. loop recorder Past Anesthesia/Blood Transfusion Reactions: Postoperative Nausea & Vomiting (PO NV) Additional Past Anesthesia/Blood Transfusion Reaction / Comment(s): Pt has received blood in past without reaction. Type of Cardiac Device: Loop Device Placement Date:: 2016 states need to be removed everything fine now per patien Past Psychological History: Anxiety, Panic Disorder Smoking Status: Never smoker Past Alcohol Use History: Occasional Past Drug Use History: None Reported Additional Drug Use History / Comment(s): tried edibles for sleep ( chocolate), pt aware not to use 24 hrs before procedure. - Past Family History Mother Family Medical History: Coronary Artery Disease (CAD), Diabetes Mellitus Additional Family Medical History / Comment(s): . Father Family Medical History: No Reported History Additional Family Medical History / Comment(s): Father is healthy Medications and Allergies Home Medications Medication Instructions Recorded Confirmed Type lamoTRIgine [LaMICtal] 200 mg PO BID 09/26/18 02/06/24 History Sertraline [Zoloft] 100 mg PO BID 03/22/22 02/06/24 History diazePAM [Valium] 10 mg PO HS 08/02/23 02/06/24 History Allergies Allergy/AdvReac Type Severity Reaction Status Date / Time cephalexin [From Keflex] Allergy Rash/Hives Verified 02/06/24 16:44 codeine Allergy Rash/Hives Verified 02/06/24 16:44 erythromycin base Allergy Rash/Hives Verified 02/06/24 16:44 gadobutrol [From Gadavist] Allergy Anaphylaxis Verified 02/06/24 16:44 Gadolinium-Containing Allergy Anaphylaxis Verified 02/06/24 16:44 Contrast Medi iodine Allergy Anaphylaxis Verified 02/06/24 16:44 Penicillins Allergy Anaphylaxis Verified 02/06/24 16:44 vancomycin Allergy Anaphylaxis Verified 02/06/24 16:44 azithromycin AdvReac red face Verified 02/06/24 16:44 diphenhydramine AdvReac Confusion Verified 02/06/24 16:44 [From Benadryl] Physical Exam Vitals: Vital Signs Temp Pulse Pulse Pulse Pulse Pulse Resp 02/07/24 08:00 78 69 77 02/07/24 07:28 97.9 F 65 16 02/07/24 07:00 97.9 F 66 16 02/07/24 01:24 97.6 F 73 16 02/06/24 20:26 98.3 F 75 16 02/06/24 19:29 80 16 02/06/24 18:22 74 22 02/06/24 16:05 94 18 02/06/24 15:36 78 20 02/06/24 14:51 98.3 F 84 24 BP BP BP BP BP Pulse Ox 02/07/24 08:00 166/82 167/76 120/75 02/07/24 07:28 120/62 98 02/07/24 07:00 120/62 98 02/07/24 01:24 167/75 97 02/06/24 20:26 141/65 97 02/06/24 19:29 128/64 97 02/06/24 18:22 157/85 99 02/06/24 16:05 110/97 98 02/06/24 15:36 96 02/06/24 14:51 116/67 95 Intake and Output 02/06/24 02/07/24 02/07/24 22:59 06:59 14:59 Intake Total 0 Balance 0 Intake: Oral 0 Other: Voiding Method Toilet Toilet # Voids 1 1 Weight 82.554 kg Results CBC & Chem 7: 02/06/24 15:28 02/06/24 15:28 Labs: Abnormal Lab Results - Last 24 Hours (Table) 02/06/24 02/06/24 02/07/24 Range/Units 15:28 15:28 04:42 PT 9.8 L (10.0-12.5) sec Chloride 108 H (98-107) mmol/L BUN 21 H (7-17) mg/dL Alkaline Phosphatase 152 H (38-126) U/L Triglycerides 187.00 H (0.00-149.00) mg/dL Cholesterol 246.00 H (0.00-200.00) mg/dL LDL Cholesterol, Calc 152.0 H (0.0-131.0) mg/dL Thrombosis Risk Factor Assmnt - DVT/VTE Prophylaxis DVT/VTE Prophylaxis: Pharmacologic Prophylaxis ordered - Choose All That Apply Any of the Below Risk Factors Present?: Yes Each Factor Represents 1 point: Age 41-60 years, Obesity (BMI >25) Thrombosis Risk Factor Assessment Total Risk Factor Score: 2 Thrombosis Risk Factor Assessment Level: Low Risk Assessment and Plan Time with Patient: Greater than 30
[2024-02-07] MEDS ORDERED: ACETAMINOPHEN TAB 325 MG TAB PO PRN (17:10)
[2024-02-07] MEDS: NITROGLYCERIN SL TABS 0.4 MG TAB SUBLINGUAL PRN (17:20)
[2024-02-07] MEDS: MORPHINE SULFATE 2 MG/ML SYRINGE IVP PRN (17:27)
[2024-02-07 17:42] LABS: Glucose,Whole Blood 82 mg/dL (70-110)
[2024-02-07] MEDS: NITROGLYCERIN OINT 1 INCH/GM PACKET TOPICAL SCH (17:57)
[2024-02-07] MEDS: ATORVASTATIN 40 MG TAB PO SCH (21:34)
[2024-02-08] MEDS: SODIUM CHLORIDE 0.9% 1,000 ML in EMPTY BAG 1 BAG IV SCH (00:23)
[2024-02-08 03:24] VITALS: RESP 16
[2024-02-08] MEDS: ASPIRIN 325 MG TAB PO ONE (04:34)
[2024-02-08] MEDS: ATORVASTATIN 80 MG TAB PO ONE (04:34)
[2024-02-08] MEDS ORDERED: HEPARIN SODIUM,PORCINE (1 ML) 2,500 UNIT in SODIUM CHLORIDE 0.9% 250 ML IRRIGATION PRN (07:00)
[2024-02-08] MEDS ORDERED: HEPARIN SODIUM,PORCINE 10,000 UNIT in SODIUM CHLORIDE 0.9% 1,000 ML IRRIGATION PRN (07:00)
[2024-02-08 07:33] VITALS: PULSE 72
[2024-02-08] MEDS: methylPREDNISolone SOD SUCCI 125 MG/2 ML VIAL IVP ONE (11:22)
[2024-02-08] MEDS: MIDAZOLAM 2 MG/2 ML VIAL IVP ONE ×2 (11:22→11:28)
[2024-02-08] MEDS: LIDOCAINE 1% INJ 10MG/ML (20 ML MDV) SQ ONE (11:23)
[2024-02-08] MEDS: VERAPAMIL SYRINGE (5 MG/10 ML) INTRAARTER ONE (11:25)
[2024-02-08] MEDS: HEPARIN SODIUM 1,000 UN/ML (10ML VL) IVP ONE (11:28)
[2024-02-08] MEDS: IV FLUID CONTINUATION 1,000 ML IV ONE (11:30)
[2024-02-08] MEDS: IOPAMIDOL-370 100ML BTL INJ ONE (11:31)
[2024-02-08] MEDS ORDERED: RX INFO: IV CONTRAST WAS GIVEN 1 EACH MISC MISCELLANE PRN (11:45)
[2024-02-08] MEDS: SODIUM CHLORIDE 0.9% 1,000 ML IV SCH (11:45)
--- NOTE | 2024-02-08 11:49 | P.PCN ---
Date of Procedure: 02/08/24 Operative Findings: CARDIAC CATHETERIZATION PERFORMING PHYSICIAN: Sherman Martin MD, RPVI PROCEDURE PERFORMED: 1. Selective right and left coronary angiogram 2. Left heart catheterization 3. Ultrasound-guided access of the right radial artery INDICATION: Chest discomfort concerning for angina COMPLICATION: None APPROACH: Right radial artery LEVEL OF SEDATION: Moderate with a sedation length of 16 minutes PROCEDURE DESCRIPTION: After obtaining an informed consent, the patient was brought to cardiac laborer [place]. Local anesthesia was performed using lidocaine subcutaneously. The right radial artery was cannulated using Seldinger technique, the guidewire passed easily, following that we advanced a 5-Thai sheath dilator assembly, the wire and dilator were removed and sheath was flushed. Following that, 2 mg of verapamil along with 5000 unit heparin were given. Selective right and left coronary angiogram using a 6-Thai JR4 and JL 3.5 catheters. Following that we did left heart catheterization using 6-Thai pigtail catheter. The procedure was completed there was no complication. SELECTIVE CORONARY ANGIOGRAM: The right coronary artery: Large-caliber vessel and a dominant vessel appears to be angiographically normal Left main: Is angiographically normal The left circumflex: Large-caliber vessel nondominant vessel with mild disease involving the proximal portion appears to be unchanged compared to before The left anterior descending artery: Large caliber vessel and appears to be angiographically normal with gives as into multiple diagonal branches appear to be normal HEMODYNAMICS: The LVEDP was 16 mmHg with no significant gradient across aortic valve CONCLUSION: 1. Mild nonobstructive CAD 2. Mildly elevated left-sided filling pressure POSTPROCEDURE MANAGEMENT: Medical treatment
[2024-02-08 12:15] VITALS: TEMP 98.3
[2024-02-08 15:46] VITALS: BP 116/59
--- NOTE | 2024-02-13 09:50 | P.DS ---
Providers Date of admission: 02/06/24 17:26 Expected date of discharge: 02/08/24 Attending physician: Charmaine Nieves Consults: 02/06/24 17:25 Consult Physician Urgent Consulting Provider: [facility] Reason/Comments: Chest pain, syncope Do you want consulting provider notified?: Yes Primary care physician: Maisha Hammonds Hospital Course: Final diagnosis Chest pain, rule out ACS, troponins x 3 were negative, inconclusive stress test underwent cardiac catheterization which was negative recommending medical management per cardiology Syncopal episode Coronary artery disease with recent catheterization in August 2023 History of valvular heart disease with moderate aortic regurgitation with mild mitral and tricuspid regurgitation Hypertension history Hyperlipidemia history History of anxiety with panic attacks History of TIA/CVA Bifascicular block History of seizures History of loop recorder insertion previously now nonfunctional Obesity with a BMI of 34.4 GI prophylaxis DVT prophylaxis Full code Discharge disposition Patient is being discharged in a stable condition with guarded prognosis to home. Patient will follow-up with Dr. Hammonds in the outpatient setting upon discharge. Patient is to continue with current medications and outpatient follow-up with cardiology Dr. Martin as scheduled. Total time taken is greater than 35 minutes. Hospital course This is a 58-year-old female who was recently admitted with chest pain being evaluated by cardiology. Patient underwent stress test showing an area of concern and cardiology following recommending cardiac catheterization. Patient underwent catheterization with no intervention performed recommending medical management. Patient has been cleared by cardiology and will follow-up outpatient. Continue with current medications per cardiology and also instructed patient to follow-up with primary care provider on discharge. Currently no reports of chest pain, shortness of breath, or palpitations. Patient is afebrile. No reports of nausea or vomiting and patient is tolerating diet. Patient will be discharged home today. Guarded prognosis and high risk for readmissions given significant comorbidities. Physical exam: Gen: This is a 58-year-old female who is awake, alert and oriented x 3, well- developed, elderly appearing, obese HEENT: Head is atraumatic, normocephalic. Pupils equal, round. Sclerae is anicteric. NECK: Supple. No JVD. No lymphadenopathy. No thyromegaly. LUNGS: Diminished breath sounds bilaterally otherwise clear to auscultation. No wheezes or rhonchi. No intercostal retractions. HEART: Regular rate and rhythm. No murmur. ABDOMEN: Soft. Obese. Bowel sounds are present. No masses. No tenderness. EXTREMITIES: No pedal edema. No calf tenderness. NEUROLOGICAL: Patient is awake, alert and oriented x3. Cranial nerves 2 through 12 are grossly intact. Please refer to medication reconciliation sheet for a list of medications. The impression and plan of care has been dictated by Nicolette Mosley, Nurse Practitioner as directed. Dr. Kuldeep MD I have performed a history and examination and MDM of this patient, discussed the same with the dictator, and agree with the dictator's assessment and plan as written ,documented as a scribe. Based on total visit time, I have performed more than 50% of the visit. Patient Condition at Discharge: Fair Plan - Discharge Summary New Discharge Prescriptions: New Aspirin 81 mg PO DAILY #30 tab Atorvastatin [Lipitor] 40 mg PO HS #30 tab Nitroglycerin Sl Tabs [Nitrostat] 0.4 mg SUBLINGUAL Q5M PRN #20 tab PRN Reason: Chest Pain Acetaminophen Tab [Tylenol] 650 mg PO Q6HR PRN tab PRN Reason: Fever and/ or Mild Pain Continue lamoTRIgine [LaMICtal] 200 mg PO BID Sertraline [Zoloft] 100 mg PO BID diazePAM [Valium] 10 mg PO HS Discharge Medication List lamoTRIgine [LaMICtal] 200 mg PO BID 09/26/18 [History] Sertraline [Zoloft] 100 mg PO BID 03/22/22 [History] diazePAM [Valium] 10 mg PO HS 08/02/23 [History] Acetaminophen Tab [Tylenol] 650 mg PO Q6HR PRN tab 02/08/24 [Rx] Aspirin 81 mg PO DAILY #30 tab 02/08/24 [Rx] Atorvastatin [Lipitor] 40 mg PO HS #30 tab 02/08/24 [Rx] Nitroglycerin Sl Tabs [Nitrostat] 0.4 mg SUBLINGUAL Q5M PRN #20 tab 02/08/24 [Rx] Follow up Appointment(s)/Referral(s): Maisha Hammonds MD [Primary Care Provider] - 1-2 days Sherman Martin MD [STAFF PHYSICIAN] - 1 Week (Office will callwith appointment time and date.) Patient Instructions/Handouts: Heart Catheterization (DC), Heart Catheterization (GEN) Activity/Diet/Wound Care/Special Instructions: Activity limited until follow-up Follow-up with primary care provider on discharge Follow-up with cardiology outpatient in 1 to 2 weeks Continue taking medications as prescribed NO FLEXING AT THE WRIST OR LIFTING ANYTHING HEAVIER THAN 5 POUNDS FOR 5 DAYS REMOVE ANY DRESSING OVER PUNCTURE SITE IN 24 HOURS AND LEAVE OPEN TO AIR DO NOT SUBMERGE WRIST IN WATER FOR 3 DAYS IF SITE BLEEDS, HOLD PRESSURE FOR 10 MIN IF IT DOESN'T SUBSIDE HAVE SOMEONE DRIVE YOU TO ER OR CALL EMS RETURN FOR SIGNS OF CIRCULATION COMPROMISE IE NUMBNESS, CHANGE IN TEMPERATURE (COLD), OR COLOR (BLUE, PALE) Discharge Disposition: HOME SELF-CARE
== END 2024-02-08 17:22 | disposition home or self-care (01) ==
LOC: EC 14:48 → 6NMEDSUR 17:25 → INTOOBSV 17:26 → OBSVTOIN 17:26 → 6NMEDSUR 19:13 → UNDODISIN 02-08 17:22
PROVIDERS: ADMIT Hospitalist; ATTEND Hospitalist
PROC: B2111ZZ Fluoroscopy of Multiple Coronary Arteries using Low Osmolar Contrast (ICD-10-PCS; principal; 2024-02-08 08:50)
PROC: 4A023N7 Measurement of Cardiac Sampling and Pressure, Left Heart, Percutaneous Approach (ICD-10-PCS; principal; 2024-02-08 08:50)
DX: R07.89 Other chest pain (principal); R55 Syncope and collapse; I45.2 Bifascicular block; I08.3 Combined rheumatic disorders of mitral, aortic and tricuspid valves; E78.5 Hyperlipidemia, unspecified; I10 Essential (primary) hypertension; M25.512 Pain in left shoulder; M79.602 Pain in left arm; E66.9 Obesity, unspecified; Z68.34 Body mass index [BMI] 34.0-34.9, adult; F41.0 Panic disorder [episodic paroxysmal anxiety]; F41.9 Anxiety disorder, unspecified; Z79.899 Other long term (current) drug therapy; Z88.0 Allergy status to penicillin; Z88.1 Allergy status to other antibiotic agents; Z88.5 Allergy status to narcotic agent; Z91.041 Radiographic dye allergy status; Z88.8 Allergy status to other drugs, medicaments and biological substances; Z91.048 Other nonmedicinal substance allergy status; Z85.038 Personal history of other malignant neoplasm of large intestine; Z86.73 Personal history of transient ischemic attack (TIA), and cerebral infarction without residual deficits
CPT/HCPCS: 96376 ×2; 96375; 96361; 96374; 99285; 36415; 93005; 93017; 93306; 93270; 93458; 85379; 80061; 80053; 83735; 84484; 85025; 85610; 85730; 71046; 78452; G0378 ×3; C1769; A9500; J2250; J2060; J0280; J2003; J2270 ×2; J1644; J2785; Q9967; J2919

== ENCOUNTER 2024-03-11 11:14 | Emergency (ER) | payer OTHER ==
--- NOTE | 2024-03-11 11:44 | ED ---
Lower Extremity Injury HPI - General Chief Complaint: Extremity Injury, Lower Stated Complaint: Fall-R leg pain Time Seen by Provider: 03/11/24 11:19 Source: patient, RN notes reviewed Mode of arrival: wheelchair Limitations: no limitations - History of Present Illness Initial Comments: This is a 58-year-old female who presents to the emergency department for right knee pain. States that yesterday evening her left leg gave out on her, causing her to fall. She ended up landing with all of her weight on her right knee. Denies hitting her head. She has since had difficulty ambulating and putting pressure on that leg. States that it is also painful to bend. She tried icing it all night with some relief. MD Complaint: knee injury - Related Data Home Medications Medication Instructions Recorded Confirmed lamoTRIgine [LaMICtal] 200 mg PO BID 09/26/18 02/06/24 Sertraline [Zoloft] 100 mg PO BID 03/22/22 02/06/24 diazePAM [Valium] 10 mg PO HS 08/02/23 02/06/24 Previous Rx's Medication Instructions Recorded Acetaminophen Tab [Tylenol] 650 mg PO Q6HR PRN tab 02/08/24 Aspirin 81 mg PO DAILY #30 tab 02/08/24 Atorvastatin [Lipitor] 40 mg PO HS #30 tab 02/08/24 Nitroglycerin Sl Tabs [Nitrostat] 0.4 mg SUBLINGUAL Q5M PRN #20 tab 02/08/24 Ibuprofen [Motrin] 800 mg PO Q8H PRN #30 tab 03/11/24 Allergies Allergy/AdvReac Type Severity Reaction Status Date / Time cephalexin [From Keflex] Allergy Rash/Hives Verified 03/11/24 11:19 codeine Allergy Rash/Hives Verified 03/11/24 11:19 erythromycin base Allergy Rash/Hives Verified 03/11/24 11:19 gadobutrol [From Gadavist] Allergy Anaphylaxis Verified 03/11/24 11:19 Gadolinium-Containing Allergy Anaphylaxis Verified 03/11/24 11:19 Contrast Medi iodine Allergy Anaphylaxis Verified 03/11/24 11:19 Penicillins Allergy Anaphylaxis Verified 03/11/24 11:19 vancomycin Allergy Anaphylaxis Verified 03/11/24 11:19 azithromycin AdvReac red face Verified 03/11/24 11:19 diphenhydramine AdvReac Confusion Verified 03/11/24 11:19 [From Zheng] Review of Systems ROS Statement: Those systems with pertinent positive or pertinent negative responses have been documented in the HPI. ROS Other: All systems not noted in ROS Statement are negative. Past Medical History Past Medical History: Cancer, CVA/TIA, Syncope Additional Past Medical History / Comment(s): migraines, "stress seizures", swelling of left lower leg, insomnia, hx hiatal hernia, hx colon cancer, diarrhea, hx psoriasis, Leaky heart valve, episodes of "passing out", 3x blocked sweat glands currently. BLOOD TRANSFUSIONS FOR LOW HGB. tia 5 yrs ago no residual. uterine and colon ca x2. see dr [facility] History of Any Multi-Drug Resistant Organisms: MRSA Date of last positivie culture/infection: 08/10/19 MDRO Source:: URINE Past Surgical History: Appendectomy, Bowel Resection, Cholecystectomy, Ear Surgery, Hernia Repair, Hysterectomy, Orthopedic Surgery Additional Past Surgical History / Comment(s): frantz knee arthroscopy, hiatal hernia surgery, rt ear surgery to remove middle ear, lymph node biopsy right armpit. loop recorder Past Anesthesia/Blood Transfusion Reactions: Postoperative Nausea & Vomiting (PONV) Additional Past Anesthesia/Blood Transfusion Reaction / Comment(s): Pt has received blood in past without reaction. Type of Cardiac Device: Loop Device Placement Date:: 2016 states need to be removed everything fine now per patien Past Psychological History: Anxiety, Panic Disorder Smoking Status: Never smoker Past Alcohol Use History: Occasional Past Drug Use History: None Reported - Past Family History Mother Family Medical History: Coronary Artery Disease (CAD), Diabetes Mellitus Additional Family Medical History / Comment(s): . Father Family Medical History: No Reported History Additional Family Medical History / Comment(s): Father is healthy General Exam Limitations: no limitations General appearance: alert, in no apparent distress Head exam: Present: atraumatic, normocephalic, normal inspection Respiratory exam: Present: normal lung sounds bilaterally. Absent: respiratory distress, wheezes, rales, rhonchi, stridor Cardiovascular Exam: Present: regular rate, normal rhythm, normal heart sounds. Absent: systolic murmur, diastolic murmur, rubs, gallop, clicks Extremities exam: Present: other (Tenderness to palpation over the right patella. Range of motion limited by pain. 2+ DP and PT pulses) Neurological exam: Present: alert, oriented X3, CN II-XII intact Psychiatric exam: Present: normal affect, normal mood Skin exam: Present: warm, dry, intact, normal color. Absent: rash Course Vital Signs 03/11/24 03/11/24 11:15 12:53 Temperature 97.9 F 98.1 F Pulse Rate 77 85 Respiratory 16 18 Rate Blood Pressure 171/66 170/78 O2 Sat by Pulse 96 97 Oximetry Medical Decision Making - Medical Decision Making This is a 58-year-old female who presents to the emergency department for a right knee injury. Was pt. sent in by a medical professional or institution? @ -No Did you speak to anyone other than the patient for history? @ -No Did you review nursing and triage notes? @ -Yes, and I agree, it is accurate with regards to the patient's symptoms. Were old charts reviewed? @ -No Differential Diagnosis? @ -Differential Musculoskeletal Muscular strain, contusion, ligament sprain, fracture, arthritis, septic arthritis, bursitis, cellulitis, muscle spasm, nerve compression, DVT, arterial occlusion, herpes zoster, electrolyte abnormality, tumor.... This is not meant to be in all inclusive list EKG interpreted by me (3pts min.)? @ -Not obtained X-rays interpreted by me (1pt min.)? @ -X-ray of the right knee obtained. My interpretation identifies no acute fractures. CT interpreted by me (1pt min.)? @ -Not obtained U/S interpreted by me (1pt. min.)? @ -Not obtained What testing was considered but not performed? (CT, X-rays, U/S, labs)? Why? @ -None What meds were considered but not given? Why? @ -None Did you discuss the management of the patient with other professionals? @ -No Did you reconcile home meds? @ -No Was smoking cessation discussed for >3mins.? @ -No Was critical care preformed (if so, how long)? @ -No Were there social determinants of health that impacted care today? How? (Homelessness, low income, unemployed, alcoholism, drug addiction, transportation, low edu. Level, literacy, decrease access to med. care, [facility], rehab)? @ -No Was there de-escalation of care discussed even if they declined? (Discuss DNR or withdrawal of care, Hospice)? @ -No What co-morbidities impacted this encounter? (DM, HTN, Smoking, COPD, CAD, Cancer, CVA, Hep., AIDS, mental health diagnosis, sleep apnea, morbid obesity)? @ -None Was patient admitted / discharged? @ -Discharged. X-ray of the right knee obtained revealing no acute process. Patient declined the need for any pain medication in the emergency department. Knee immobilizer applied. Prescription for ibuprofen provided with dosing instructions reviewed. Advised taking this with Tylenol for further relief and continuing with ice and elevation. Patient discharged home in stable condition. Case discussed with ED attending Dr. Benavides. Return precautions reviewed in depth, the patient is instructed to return to the emergency department with any new, worsening, or concerning symptoms. Patient verbalized understanding. Undiagnosed new problem with uncertain prognosis? @ -None Drug Therapy requiring intensive monitoring for toxicity (Heparin, Nitro, Insulin, Cardizem)? @ -None Were any procedures done? @ -None Diagnosis/symptom? @ -Fall, right knee contusion Acute, or Chronic, or Acute on Chronic? @ -Acute Uncomplicated (without systemic symptoms) or Complicated (systemic symptoms)? @ -Uncomplicated Side effects of treatment? @ -None Exacerbation, Progression, or Severe Exacerbation] @ -Not applicable Poses a threat to life or bodily function? @ -No - Radiology Data Radiology results: report reviewed, image reviewed Disposition Clinical Impression: Contusion of right knee Disposition: HOME SELF-CARE Instructions (If sedation given, give patient instructions): Knee Pain (ED) Additional Instructions: Return to the emergency department with any new, worsening, or concerning symptoms. Alternate with ibuprofen and Tylenol as needed for pain relief. Continue to elevate the leg and apply ice. Follow up with your primary care provider in 1-2 days. Prescriptions: Ibuprofen [Motrin] 800 mg PO Q8H PRN #30 tab PRN Reason: Pain Is patient prescribed a controlled substance at d/c from ED?: No Referrals: Maisha Hammonds MD [Primary Care Provider] - 1-2 days Time of Disposition: 12:34
--- NOTE | 2024-03-11 12:04 | XR ---
Right knee. HISTORY: Pain following fall. COMPARISON: None. TECHNIQUE: 3 views of the right knee were obtained. FINDINGS: There is mild osteopenia. There is no fracture dislocation, intraosseous or intra-articular abnormali ty with exception of mild tricompartment osteoarthritis. The soft tissues are unremarkable. No joint effusion. IMPRESSION: 1. mild osteopenia. 2. No evidence of acute trauma. [facility], , 03/11/2024 12:02 PM
[2024-03-11 12:58] VITALS: BP 170/78; PULSE 85; RESP 18; TEMP 98.1
== END 2024-03-11 12:54 | disposition home or self-care (01) ==
LOC: EC 11:14
DX: S80.01XA Contusion of right knee, initial encounter (principal); Z86.73 Personal history of transient ischemic attack (TIA), and cerebral infarction without residual deficits; Z88.0 Allergy status to penicillin; Z88.1 Allergy status to other antibiotic agents; Z88.8 Allergy status to other drugs, medicaments and biological substances; Z91.041 Radiographic dye allergy status; W18.30XA Fall on same level, unspecified, initial encounter
CPT/HCPCS: 73562; 99283; L1830

== ENCOUNTER 2024-03-31 00:40 | Emergency (ER) | payer OTHER ==
[2024-03-31] MEDS: SODIUM CHLORIDE 0.9% 500 ML 500 ML IV ONE (00:50)
--- NOTE | 2024-03-31 00:52 | ED ---
Altered Mental Status HPI - General Chief Complaint: Altered Mental Status Stated Complaint: Seizure Time Seen by Provider: 03/31/24 00:41 Source: EMS Mode of arrival: EMS - History of Present Illness Initial Comments: Patient is 58-year-old woman brought by ambulance to have evaluation after having had suspected seizure. Patient was reportedly not responding appropriately and was confused for total of approximately 15 minutes. No loss of continence reported. No injury reported. Patient denying pain. No dyspnea. Main complaint is "I do not know where I am." MD Complaint: altered mental status -: minutes(s) Context: history of similar presentation Associated Symptoms: denies other symptoms - Related Data Home Medications Medication Instructions Recorded Confirmed lamoTRIgine [LaMICtal] 200 mg PO BID 09/26/18 04/08/24 Sertraline [Zoloft] 100 mg PO BID 03/22/22 04/08/24 diazePAM [Valium] 10 mg PO HS 08/02/23 04/08/24 Atorvastatin [Lipitor] 80 mg PO HS 04/08/24 04/08/24 Mupirocin 2% Oint [Bactroban 2% 1 applic TOPICAL DAILY PRN 04/08/24 04/08/24 Oint] Previous Rx's Medication Instructions Recorded Nitroglycerin Sl Tabs [Nitrostat] 0.4 mg SUBLINGUAL Q5M PRN #20 tab 02/08/24 Aspirin 325 mg PO DAILY #30 tab 04/13/24 Allergies Allergy/AdvReac Type Severity Reaction Status Date / Time cephalexin [From Keflex] Allergy Rash/Hives Verified 04/08/24 17:54 codeine Allergy Rash/Hives Verified 04/08/24 17:54 erythromycin base Allergy Rash/Hives Verified 04/08/24 17:54 gadobutrol [From Gadavist] Allergy Anaphylaxis Verified 04/08/24 17:54 Gadolinium-Containing Allergy Anaphylaxis Verified 04/08/24 17:54 Contrast Medi iodine Allergy Anaphylaxis Verified 04/08/24 17:54 Penicillins Allergy Anaphylaxis Verified 04/08/24 17:54 vancomycin Allergy Anaphylaxis Verified 04/08/24 17:54 azithromycin AdvReac red face Verified 04/08/24 17:54 diphenhydramine AdvReac Confusion Verified 04/08/24 17:54 [From Benadryl] Review of Systems ROS Statement: Those systems with pertinent positive or pertinent negative responses have been documented in the HPI. ROS Other: All systems not noted in ROS Statement are negative. Constitutional: Denies: fever Eyes: Denies: vision change Respiratory: Denies: cough, dyspnea Cardiovascular: Denies: chest pain, palpitations Gastrointestinal: Denies: abdominal pain, vomiting Genitourinary: Denies: dysuria, hematuria Musculoskeletal: Denies: back pain Skin: Denies: rash Neurological: Reports: confusion. Denies: headache, weakness, numbness Past Medical History Past Medical History: Cancer, CVA/TIA, Syncope Additional Past Medical History / Comment(s): migraines, "stress seizures", swelling of left lower leg, insomnia, hx hiatal hernia, hx colon cancer, diarrhea, hx psoriasis, Leaky heart valve, episodes of "passing out", 3x blocked sweat glands currently. BLOOD TRANSFUSIONS FOR LOW HGB. tia 5 yrs ago no re sidual. uterine and colon ca x2. see dr [facility] History of Any Multi-Drug Resistant Organisms: MRSA Date of last positivie culture/infection: 08/10/19 MDRO Source:: URINE Past Surgical History: Appendectomy, Bowel Resection, Cholecystectomy, Ear Surgery, Hernia Repair, Hysterectomy, Orthopedic Surgery Additional Past Surgical History / Comment(s): frantz knee arthroscopy, hiatal hernia surgery, rt ear surgery to remove middle ear, lymph node biopsy right armpit. loop recorder Past Anesthesia/Blood Transfusion Reactions: Postoperative Nausea & Vomiting (PONV) Additional Past Anesthesia/Blood Transfusion Reaction / Comment(s): Pt has received blood in past without reaction. Type of Cardiac Device: Loop Device Placement Date:: 2016 states need to be removed everything fine now per patien Past Psychological History: Anxiety, Panic Disorder Smoking Status: Never smoker Past Alcohol Use History: Occasional Past Drug Use History: None Reported - Past Family History Mother Family Medical History: Coronary Artery Disease (CAD), Diabetes Mellitus Additional Family Medical History / Comment(s): . Father Family Medical History: No Reported History Additional Family Medical History / Comment(s): Father is healthy General Exam General appearance: alert, in no apparent distress Head exam: Present: atraumatic, normocephalic Eye exam: Present: normal appearance, PERRL, EOMI. Absent: scleral icterus, conjunctival injection, nystagmus ENT exam: Present: normal oropharynx Neck exam: Present: normal inspection, full ROM. Absent: tenderness, meningismus Respiratory exam: Present: normal lung sounds bilaterally. Absent: respiratory distress, wheezes, rales, rhonchi, stridor, accessory muscle use Cardiovascular Exam: Present: regular rate, normal rhythm, normal heart sounds. Absent: systolic murmur, diastolic murmur, rubs, gallop GI/Abdominal exam: Present: soft. Absent: distended, tenderness, guarding, rebound, rigid, mass Extremities exam: Present: normal inspection, normal capillary refill. Absent: pedal edema, calf tenderness Back exam: Present: normal inspection. Absent: CVA tenderness (R), CVA tenderness (L) Neurological exam: Present: alert Skin exam: Present: warm, dry, intact, normal color. Absent: rash Course Vital Signs 03/31/24 03/31/24 03/31/24 00:41 01:30 02:00 Temperature 97.7 F Pulse Rate 77 66 62 Respiratory 18 18 18 Rate Blood Pressure 170/99 138/90 148/61 O2 Sat by Pulse 95 98 98 Oximetry 03/31/24 02:34 Temperature 98.0 F Pulse Rate 78 Respiratory 18 Rate Blood Pressure 142/78 O2 Sat by Pulse 100 Oximetry Medical Decision Making - Medical Decision Making The patient did have chest x-ray that I interpreted as negative for acute infiltrate, pneumothorax, congestive heart failure the patient had CT of the brain that I interpreted as negative for acute bony injury, negative for acute intracranial hemorrhage or mass effect. Was pt. sent in by a medical professional or institution (, PA, [employer], urgent care, hospital, or jail...) When possible be specific @ -[No] Did you speak to anyone other than the patient for history (EMS, parent, family, police, friend...)? What history was obtained from this source @ -[No] Did you review nursing and triage notes (agree or disagree)? Why? @ -[I reviewed and agree with nursing and triage notes] Were old charts reviewed (outside hosp., previous admission, EMS record, old EKG, old radiological studies, urgent care reports/EKG's, jail records)? Report findings @ -[No old charts were reviewed] Differential Diagnosis (chest pain, altered mental status, abdominal pain women, abdominal pain men, vaginal bleeding, weakness, fever, dyspnea, syncope, headache, dizziness, GI bleed, back pain, seizure, CVA, palpatations, mental health, musculoskeletal)? @ -[Differential Altered Mental Status: Hypoglycemia, DKA, hypercapnia, ETOH, overdose, CO poisoning, trauma, myxedema coma, HTN encephalopathy, infection, encephalitis, psychosis, intercranial h emorrhage, hepatic encephalopathy, meningitis, CVA, this is not meant to be an all-inclusive list EKG interpreted by me (3pts min.). @ -[I interpreted as above] X-rays interpreted by me (1pt min.). @ -[I interpreted as above CT interpreted by me (1pt min.). @ -[I interpreted as above U/S interpreted by me (1pt. min.). @ -[None done] What testing was considered but not performed or refused? (CT, X-rays, U/S, labs)? Why? @ -[None] What meds were considered but not given or refused? Why? @ -[None] Did you discuss the management of the patient with other professionals (professionals i.e. , PA, [employer], lab, RT, psych nurse, neonatal social worker, multifocal button grinder, teacher, articulation officer, case monitor)? Give summary @ -[No] Was smoking cessation discussed for >3mins.? @ -[No] Was critical care preformed (if so, how long)? @ -[No] Were there social determinants of health that impacted care today? How? (Homelessness, low income, unemployed, alcoholism, drug addiction, transportation, low edu. Level, literacy, decrease access to med. care, shelter, rehab)? @ -[No] Was there de-escalation of care discussed even if they declined (Discuss DNR or withdrawal of care, Hospice)? DNR status @ -[No] What co-morbidities impacted this encounter? (DM, HTN, Smoking, COPD, CAD, Cancer, CVA, ARF, Chemo, Hep., AIDS, mental health diagnosis, sleep apnea, morbid obesity)? @ -[History of previous seizure Was patient admitted / discharged? Hospital course, mention meds given and route, prescriptions, significant lab abnormalities, going to OR and other pertinent info. @ -[Patient is a 58-year-old woman with history of previous seizures. She did have what sounds like similar episode today. She did rapidly returned to baseline. The workup unremarkable. The patient stable for discharge with follow-up with her neurologist on an as-needed basis Undiagnosed new problem with uncertain prognosis? @ -[No] Drug Therapy requiring intensive monitoring for toxicity (Heparin, Nitro, Insulin, Cardizem)? @ -[No] Were any procedures done? @ -[No] Diagnosis/symptom? @ -[Acute seizure Acute, or Chronic, or Acute on Chronic? @ -[Acute on chronic Uncomplicated (without systemic symptoms) or Complicated (systemic symptoms)? @ -[default] Side effects of treatment? @ -[No] Exacerbation, Progression, or Severe Exacerbation? @ -[No] Poses a threat to life or bodily function? How? (Chest pain, USA, AR, pneumonia, PE, COPD, DKA, ARF, appy, cholecystitis, CVA, Diverticulitis, Homicidal, Suicidal, threat to staff... and all critical care pts) @ -[No] All treatments are based on ideal body weight as in ED triage - Lab Data Result diagrams: 03/31/24 00:45 03/31/24 00:45 Lab Results 03/31/24 03/31/24 03/31/24 Range/Units 00:45 00:45 00:45 WBC 8.2 (3.8-10.6) k/uL RBC 4.15 (3.80-5.40) m/uL Hgb 12.3 (11.4-16.0) gm/dL Hct 37.1 (34.0-46.0) % MCV 89.2 (80.0-100.0) fL MCH 29.7 (25.0-35.0) pg MCHC 33.3 (31.0-37.0) g/dL RDW 14.3 (11.5-15.5) % Plt Count 232 (150-450) k/uL MPV 7.9 Neutrophils % 67 % Lymphocytes % 26 % Monocytes % 3 % Eosinophils % 3 % Basophils % 0 % Neutrophils # 5.5 (1.3-7.7) k/uL Lymphocytes # 2.1 (1.0-4.8) k/uL Monocytes # 0.2 (0-1.0) k/uL Eosinophils # 0.2 (0-0.7) k/uL Basophils # 0.0 (0-0.2) k/uL PT 10.2 (10.0-12.5) sec INR 0.9 (<1.2) APTT 23.3 (22.0-30.0) sec Sodium 141 (137-145) mmol/L Potassium 4.6 (3.5-5.1) mmol/L Chloride 105 (98-107) mmol/L Carbon Dioxide 29 (22-30) mmol/L Anion Gap 7 mmol/L BUN 28 H (7-17) mg/dL Creatinine 0.89 (0.52-1.04) mg/dL Est GFR (CKD-EPI)AfAm 83 (>60 ml/min/1.73 sqM) Est GFR (CKD-EPI)NonAf 72 (>60 ml/min/1.73 sqM) Glucose 108 H (74-99) mg/dL POC Glucose (mg/dL) (70-110) mg/dL POC Glu Woodworking Machinist ID Plasma Lactic Acid Williams (0.7-2.0) mmol/L Calcium 9.2 (8.4-10.2) mg/dL Total Bilirubin 0.4 (0.2-1.3) mg/dL AST 31 (14-36) U/L ALT 29 (4-34) U/L Alkaline Phosphatase 150 H (38-126) U/L Troponin I (0.000-0.034) ng/mL Total Protein 7.0 (6.3-8.2) g/dL Albumin 4.3 (3.5-5.0) g/dL Urine Opiates Screen (NotDetected) Ur Oxycodone Screen (NotDetected) Urine Methadone Screen (NotDetected) Ur Barbiturates Screen (NotDetected) U Tricyclic Antidepress (NotDetected) Ur Phencyclidine Scrn (NotDetected) Ur Amphetamines Screen (NotDetected) U Methamphetamines Scrn (NotDetected) U Benzodiazepines Scrn (NotDetected) Urine Cocaine Screen (NotDetected) U Marijuana (THC) Screen (NotDetected) 03/31/24 03/31/24 03/31/24 Range/Units 00:45 00:45 00:56 WBC (3.8-10.6) k/uL RBC (3.80-5.40) m/uL Hgb (11.4-16.0) gm/dL Hct (34.0-46.0) % MCV (80.0-100.0) fL MCH (25.0-35.0) pg MCHC (31.0-37.0) g/dL RDW (11.5-15.5) % Plt Count (150-450) k/uL MPV Neutrophils % % Lymphocytes % % Monocytes % % Eosinophils % % Basophils % % Neutrophils # (1.3-7.7) k/uL Lymphocytes # (1.0-4.8) k/uL Monocytes # (0-1.0) k/uL Eosinophils # (0-0.7) k/uL Basophils # (0-0.2) k/uL PT (10.0-12.5) sec INR (<1.2) APTT (22.0-30.0) sec Sodium (137-145) mmol/L Potassium (3.5-5.1) mmol/L Chloride (98-107) mmol/L Carbon Dioxide (22-30) mmol/L Anion Gap mmol/L BUN (7-17) mg/dL Creatinine (0.52-1.04) mg/dL Est GFR (CKD-EPI)AfAm (>60 ml/min/1.73 sqM) Est GFR (CKD-EPI)NonAf (>60 ml/min/1.73 sqM) Glucose (74-99) mg/dL POC Glucose (mg/dL) 103 (70-110) mg/dL POC Glu Woodworking Machinist ID Jose Luis Heather Plasma Lactic Acid Williams 1.2 (0.7-2.0) mmol/L Calcium (8.4-10.2) mg/dL Total Bilirubin (0.2-1.3) mg/dL AST (14-36) U/L ALT (4-34) U/L Alkaline Phosphatase (38-126) U/L Troponin I <0.012 (0.000-0.034) ng/mL Total Protein (6.3-8.2) g/dL Albumin (3.5-5.0) g/dL Urine Opiates Screen (NotDetected) Ur Oxycodone Screen (NotDetected) Urine Methadone Screen (NotDetected) Ur Barbiturates Screen (NotDetected) U Tricyclic Antidepress (NotDetected) Ur Phencyclidine Scrn (NotDetected) Ur Amphetamines Screen (NotDetected) U Methamphetamines Scrn (NotDetected) U Benzodiazepines Scrn (NotDetected) Urine Cocaine Screen (NotDetected) U Marijuana (THC) Screen (NotDetected) 03/31/24 Range/Units 00:57 WBC (3.8-10.6) k/uL RBC (3.80-5.40) m/uL Hgb (11.4-16.0) gm/dL Hct (34.0-46.0) % MCV (80.0-100.0) fL MCH (25.0-35.0) pg MCHC (31.0-37.0) g/dL RDW (11.5-15.5) % Plt Count (150-450) k/uL MPV Neutrophils % % Lymphocytes % % Monocytes % % Eosinophils % % Basophils % % Neutrophils # (1.3-7.7) k/uL Lymphocytes # (1.0-4.8) k/uL Monocytes # (0-1.0) k/uL Eosinophils # (0-0.7) k/uL Basophils # (0-0.2) k/uL PT (10.0-12.5) sec INR (<1.2) APTT (22.0-30.0) sec Sodium (137-145) mmol/L Potassium (3.5-5.1) mmol/L Chloride (98-107) mmol/L Carbon Dioxide (22-30) mmol/L Anion Gap mmol/L BUN (7-17) mg/dL Creatinine (0.52-1.04) mg/dL Est GFR (CKD-EPI)AfAm (>60 ml/min/1.73 sqM) Est GFR (CKD-EPI)NonAf (>60 ml/min/1.73 sqM) Glucose (74-99) mg/dL POC Glucose (mg/dL) (70-110) mg/dL POC Glu Woodworking Machinist ID Plasma Lactic Acid Williams (0.7-2.0) mmol/L Calcium (8.4-10.2) mg/dL Total Bilirubin (0.2-1.3) mg/dL AST (14-36) U/L ALT (4-34) U/L Alkaline Phosphatase (38-126) U/L Troponin I (0.000-0.034) ng/mL Total Protein (6.3-8.2) g/dL Albumin (3.5-5.0) g/dL Urine Opiates Screen Detected H (NotDetected) Ur Oxycodone Screen Not Detected (NotDetected) Urine Methadone Screen Not Detected (NotDetected) Ur Barbiturates Screen Not Detected (NotDetected) U Tricyclic Antidepress Not Detected (NotDetected) Ur Phencyclidine Scrn Not Detected (NotDetected) Ur Amphetamines Screen Not Detected (NotDetected) U Methamphetamines Scrn Not Detected (NotDetected) U Benzodiazepines Scrn Detected H (NotDetected) Urine Cocaine Screen Not Detected (NotDetected) U Marijuana (THC) Screen Not Detected (NotDetected) - EKG Data -: EKG Interpreted by Hi EKG shows normal: sinus rhythm (66 bpm), intervals (AL interval 239 ms, prolonged consistent with first-degree AV block. QRS duration 166 ms, prolonged consistent with intraventricular conduction delay.), QRS complexes (There is an intraventricular conduction delay) Disposition Clinical Impression: AMS (altered mental status) Disposition: HOME SELF-CARE Condition: Good Instructions (If sedation given, give patient instructions): Altered Mental Status (ED) Is patient prescribed a controlled substance at d/c from ED?: No Referrals: Maisha Hammonds MD [Primary Care Provider] - 1-2 days
[2024-03-31 00:54] VITALS: RESP 18
[2024-03-31 00:58] LABS: Glucose,Whole Blood 103 mg/dL (70-110)
[2024-03-31 01:00] LABS: Basophils % (A) 0 %; Eosinophils # (A) 0.2 k/uL (0-0.7); Eosinophils % (A) 3 %; HCT 37.1 % (34.0-46.0); HGB 12.3 gm/dL (11.4-16.0); Lymphocytes # (A) 2.1 k/uL (1.0-4.8); Lymphocytes % (A) 26 %; MCH 29.7 pg (25.0-35.0); MCHC 33.3 g/dL (31.0-37.0); MCV 89.2 fL (80.0-100.0); Mean Platelet Volume 7.9; Monocytes # (A) 0.2 k/uL (0-1.0); Monocytes % (A) 3 %; Neutrophils # (A) 5.5 k/uL (1.3-7.7); Neutrophils % (A) 67 %; Platelet Count 232 k/uL (150-450); RBC 4.15 m/uL (3.80-5.40); RDW 14.3 % (11.5-15.5); WBC 8.2 k/uL (3.8-10.6)
[2024-03-31 01:10] LABS: ALT 29 U/L (4-34); AST 31 U/L (14-36); African American GFR (CKD) 83 (>60 ml/min/1.73 sqM); Albumin 4.3 g/dL (3.5-5.0); Alkaline Phosphatase 150 U/L (38-126); Anion Gap 7 mmol/L; Blood Urea Nitrogen 28 mg/dL (7-17); Calcium 9.2 mg/dL (8.4-10.2); Carbon Dioxide 29 mmol/L (22-30); Chloride 105 mmol/L (98-107); Glucose 108 mg/dL (74-99); Non-African American GFR(CKD) 72 (>60 ml/min/1.73 sqM); Potassium 4.6 mmol/L (3.5-5.1); Sodium 141 mmol/L (137-145); Total Bilirubin 0.4 mg/dL (0.2-1.3)
[2024-03-31 01:17] LABS: INR 0.9 (<1.2); Partial Thromboplastin Time 23.3 sec (22.0-30.0); Prothrombin Time 10.2 sec (10.0-12.5)
--- NOTE | 2024-03-31 01:31 | CT ---
EXAM: CT Head Without Intravenous Contrast CLINICAL HISTORY: ITS.REASON CT Reason: Altered mental status TECHNIQUE: Axial computed tomography images of the head/brain without intravenous contrast. CTDI is 49.2 mGy and DLP is 1154.4 mGy-cm. This CT exam was performed using one or more of the following dose reduction techniques: automated exposure control, adjustment of the mA and/or kV according to patient size, and/or use of iterative reconstruction technique. COMPARISON: No relevant prior studies available. FINDINGS: Brain: No hemorrhage or mass effect. Ventricles: No hydrocephalus. Bones/joints: Unremarkable. Soft tissues: Unremarkable. Sinuses: No air fluid level. Mastoid air cells: Clear. IMPRESSION: No acute hemorrhage, hydrocephalus, or mass effect.
[2024-03-31 01:42] LABS: Amphetamine Screen,Urine Not Detected (NotDetected); Barbiturate Screen,Urine Not Detected (NotDetected); Benzodiazepines Screen,Urine Detected (NotDetected); Cocaine Screen,Urine Not Detected (NotDetected); Methadone Screen, Urine Not Detected (NotDetected); Opiate Screen,Urine Detected (NotDetected); Oxycodone Screen, Urine Not Detected (NotDetected); Phencyclidine Screen,Urine Not Detected (NotDetected); Tricyclic Antidepressant,Urine Not Detected (NotDetected); Urn Cannabinoid Scrn Not Detected (NotDetected)
[2024-03-31 02:35] VITALS: BP 142/78; PULSE 78; TEMP 98
--- NOTE | 2024-03-31 03:38 | XR ---
EXAM: XR Chest, 1 View CLINICAL HISTORY: ITS.REASON XR Reason: altered mental status TECHNIQUE: Frontal view of the chest. COMPARISON: No relevant prior studies available. FINDINGS: Lungs: No consolidation or mass. Pleural space: No acute findings. Heart: cardiomegaly. Bones/joints: No acute findings. IMPRESSION: No acute cardiopulmonary process.
== END 2024-03-31 02:35 | disposition home or self-care (01) ==
LOC: EC 00:40
DX: R41.82 Altered mental status, unspecified (principal); R56.9 Unspecified convulsions; Z88.4 Allergy status to anesthetic agent; Z88.5 Allergy status to narcotic agent; Z88.0 Allergy status to penicillin; Z88.1 Allergy status to other antibiotic agents; Z88.8 Allergy status to other drugs, medicaments and biological substances
CPT/HCPCS: 36415; 70450; 71045; 80053; 80306; 83605; 84484; 85025; 85610; 85730; 93005; 96360; 99285

== ENCOUNTER 2024-04-08 16:31 | Inpatient (IN) | payer OTHER ==
[2024-04-08] MEDS: FAMOTIDINE 20 MG/2 ML VIAL IV STA (16:49)
[2024-04-08] MEDS: methylPREDNISolone SOD SUCCI 125 MG/2 ML VIAL IV STA (16:49)
[2024-04-08 17:02] LABS: Basophils % (A) 0 %; Eosinophils # (A) 0.1 k/uL (0-0.7); Eosinophils % (A) 2 %; HCT 38.4 % (34.0-46.0); HGB 12.3 gm/dL (11.4-16.0); Lymphocytes # (A) 1.7 k/uL (1.0-4.8); Lymphocytes % (A) 21 %; MCH 29.1 pg (25.0-35.0); MCHC 32.1 g/dL (31.0-37.0); MCV 90.8 fL (80.0-100.0); Mean Platelet Volume 7.2; Monocytes # (A) 0.3 k/uL (0-1.0); Monocytes % (A) 3 %; Neutrophils # (A) 5.7 k/uL (1.3-7.7); Neutrophils % (A) 72 %; Platelet Count 252 k/uL (150-450); RBC 4.23 m/uL (3.80-5.40); RDW 14.2 % (11.5-15.5); WBC 7.9 k/uL (3.8-10.6)
--- NOTE | 2024-04-08 17:10 | CT ---
EXAMINATION TYPE: CODE STROKE: CT brain wo contr DATE OF EXAM: 04/08/2024 4:56 PM COMPARISON: Previous CT study 03/23/2024. CLINICAL INDICATION: Female, 58 years old with history of Neuro deficit, acute, stroke suspected, Cod e stroke: Neuro deficit, acute, stroke suspected, TECHNIQUE: Brain: Axial CT images of the brain were obtained with coronal and sagittal reformats created and rev iewed. Contrast used: None. Oral contrast used: None. CT DLP: 1141.6 mGycm, Automated exposure control for dose reduction was used. FINDINGS: Brain: Extra-axial spaces: No abnormal extra-axial fluid collections. Ventricular system: Within normal limits Cerebral parenchyma: No acute intraparenchymal hemorrhage or mass effect. Scattered hypoattenuating areas are seen within the white matter. Cerebellum: Unremarkable. Mass effect: No evidence of midline shift. Intracranial vasculature: unremarkable Soft tissues: Normal. Calvarium/osseous structures: No depressed skull fracture. Paranasal sinuses and mastoid air cells: Mild scattered paranasal sinus disease. Visualized orbits: Orbital contents are intact. IMPRESSION: No acute intracranial process. [facility], , 04/08/2024 5:07 PM
[2024-04-08 17:14] LABS: INR 0.9 (<1.2); Partial Thromboplastin Time 22.6 sec (22.0-30.0)
[2024-04-08] MEDS: T.ENECTEPLASE 5 MG/ML VIAL IVP STA (17:18)
[2024-04-08 17:22] LABS: ALT 38 U/L (4-34); AST 32 U/L (14-36); African American GFR (CKD) 80 (>60 ml/min/1.73 sqM); Albumin 4.5 g/dL (3.5-5.0); Alkaline Phosphatase 188 U/L (38-126); Anion Gap 9 mmol/L; Blood Urea Nitrogen 24 mg/dL (7-17); Calcium 9.7 mg/dL (8.4-10.2); Carbon Dioxide 27 mmol/L (22-30); Chloride 105 mmol/L (98-107); Creatine Kinase 82 U/L (30-135); Glucose 108 mg/dL (74-99); Non-African American GFR(CKD) 69 (>60 ml/min/1.73 sqM); Potassium 4.3 mmol/L (3.5-5.1); Sodium 141 mmol/L (137-145); Total Bilirubin 0.4 mg/dL (0.2-1.3); Total Protein 7.2 g/dL (6.3-8.2)
[2024-04-08] MEDS: niCARdipine 20 MG in SODIUM CHLORIDE 0.9% 192 ML IV SCH (17:33)
--- NOTE | 2024-04-08 18:00 | XR ---
EXAMINATION TYPE: XR chest 1V portable DATE OF EXAM: 04/08/2024 5:48 PM COMPARISON: Chest radiograph 03/31/2024. CLINICAL INDICATION: Female, 58 years old with history of altered mental status; [facility] TECHNIQUE: XR chest 1V portable Frontal view of the chest. FINDINGS: Lungs/Pleura: There is no evidence of pleural effusion, focal consolidation, or pneumothorax. Pulmonary vascularity: Unremarkable. Heart/mediastinum: Cardiomediastinal silhouette is unremarkable. Musculoskeletal: No acute osseous pathology. Other findings: None Loop recorder device overlying the left chest wall. IMPRESSION: No acute cardiopulmonary disease/process. [facility], , 04/08/2024 5:58 PM
--- NOTE | 2024-04-08 18:06 | ED ---
Neuro HPI - General Chief Complaint: Neuro Symptoms/Deficit Stated Complaint: STROKE Time Seen by Provider: 04/08/24 16:36 Source: patient, EMS Mode of arrival: EMS - History of Present Illness Is the patient presenting with stroke symptoms?: Yes Initial Comments: 58-year-old female with past medical history of pseudoseizures who presents emergency department with right-sided weakness. It is reported by EMS that the patient began experiencing right-sided weakness a last known well of 3 PM. The patient was complaining of a headache. She does not take any blood thinners. Patient did have some hypertension noted on arrival. She denies any visual ch anges. She does follow commands but does not recall the details of the past couple of hours. She denies a history of stroke. Upon review of the patient's chart it appears that the patient had similar symptoms in 2021. She denies any head trauma. No other alleviating, precipitating or modifying factors - Related Data Home Medications: Home Medications Medication Instructions Recorded Confirmed lamoTRIgine [LaMICtal] 200 mg PO BID 09/26/18 04/08/24 Sertraline [Zoloft] 100 mg PO BID 03/22/22 04/08/24 diazePAM [Valium] 10 mg PO HS 08/02/23 04/08/24 Atorvastatin [Lipitor] 80 mg PO HS 04/08/24 04/08/24 Mupirocin 2% Oint [Bactroban 2% 1 applic TOPICAL DAILY PRN 04/08/24 04/08/24 Oint] Previous Rx's Medication Instructions Recorded Nitroglycerin Sl Tabs [Nitrostat] 0.4 mg SUBLINGUAL Q5M PRN #20 tab 02/08/24 Allergies/Adverse Reactions: Allergies Allergy/AdvReac Type Severity Reaction Status Date / Time cephalexin [From Keflex] Allergy Rash/Hives Verified 04/08/24 17:54 codeine Allergy Rash/Hives Verified 04/08/24 17:54 erythromycin base Allergy Rash/Hives Verified 04/08/24 17:54 gadobutrol [From Gadavist] Allergy Anaphylaxis Verified 04/08/24 17:54 Gadolinium-Containing Allergy Anaphylaxis Verified 04/08/24 17:54 Contrast Medi iodine Allergy Anaphylaxis Verified 04/08/24 17:54 Penicillins Allergy Anaphylaxis Verified 04/08/24 17:54 vancomycin Allergy Anaphylaxis Verified 04/08/24 17:54 azithromycin AdvReac red face Verified 04/08/24 17:54 diphenhydramine AdvReac Confusion Verified 04/08/24 17:54 [From Benadryl] Review of Systems ROS Statement: Those systems with pertinent positive or pertinent negative responses have been documented in the HPI. ROS Other: All systems not noted in ROS Statement are negative. General Exam Limitations: altered mental status General appearance: alert Head exam: Present: atraumatic, normocephalic, normal inspection Eye exam: Present: normal appearance, PERRL, EOMI. Absent: scleral icterus, conjunctival injection, periorbital swelling ENT exam: Present: normal exam, mucous membranes moist Respiratory exam: Present: normal lung sounds bilaterally. Absent: respiratory distress, wheezes, rales, rhonchi, stridor Cardiovascular Exam: Present: regular rate, normal rhythm, normal heart sounds. Absent: systolic murmur, diastolic murmur, rubs, gallop, clicks GI/Abdominal exam: Present: soft, normal bowel sounds. Absent: distended, tenderness, guarding, rebound, rigid Extremities exam: Present: other (No effort against gravity on the right arm and right leg. 5 out of 5 strength of the bilateral left upper and lower extremities) Back exam: Present: normal inspection Neurological exam: Present: alert, other (Follows commands. Alert to self) Skin exam: Present: warm, dry, intact, normal color. Absent: rash Stroke MDM - Lab Data Result diagrams: 04/08/24 16:43 04/08/24 16:43 Lab Results 04/08/24 04/08/24 04/08/24 Range/Units 16:43 16:43 16:43 WBC 7.9 (3.8-10.6) k/uL RBC 4.23 (3.80-5.40) m/uL Hgb 12.3 (11.4-16.0) gm/dL Hct 38.4 (34.0-46.0) % MCV 90.8 (80.0-100.0) fL MCH 29.1 (25.0-35.0) pg MCHC 32.1 (31.0-37.0) g/dL RDW 14.2 (11.5-15.5) % Plt Count 252 (150-450) k/uL MPV 7.2 Neutrophils % 72 % Lymphocytes % 21 % Monocytes % 3 % Eosinophils % 2 % Basophils % 0 % Neutrophils # 5.7 (1.3-7.7) k/uL Lymphocytes # 1.7 (1.0-4.8) k/uL Monocytes # 0.3 (0-1.0) k/uL Eosinophils # 0.1 (0-0.7) k/uL Basophils # 0.0 (0-0.2) k/uL PT 10.0 (10.0-12.5) sec INR 0.9 (<1.2) APTT 22.6 (22.0-30.0) sec Sodium 141 (137-145) mmol/L Potassium 4.3 (3.5-5.1) mmol/L Chloride 105 (98-107) mmol/L Carbon Dioxide 27 (22-30) mmol/L Anion Gap 9 mmol/L BUN 24 H (7-17) mg/dL Creatinine 0.92 (0.52-1.04) mg/dL Est GFR (CKD-EPI)AfAm 80 (>60 ml/min/1.73 sqM) Est GFR (CKD-EPI)NonAf 69 (>60 ml/min/1.73 sqM) Glucose 108 H (74-99) mg/dL Calcium 9.7 (8.4-10.2) mg/dL Total Bilirubin 0.4 (0.2-1.3) mg/dL AST 32 (14-36) U/L ALT 38 H (4-34) U/L Alkaline Phosphatase 188 H (38-126) U/L Creatine Kinase 82 (30-135) U/L Troponin I (0.000-0.034) ng/mL Total Protein 7.2 (6.3-8.2) g/dL Albumin 4.5 (3.5-5.0) g/dL 04/08/24 Range/Units 16:43 WBC (3.8-10.6) k/uL RBC (3.80-5.40) m/uL Hgb (11.4-16.0) gm/dL Hct (34.0-46.0) % MCV (80.0-100.0) fL MCH (25.0-35.0) pg MCHC (31.0-37.0) g/dL RDW (11.5-15.5) % Plt Count (150-450) k/uL MPV Neutrophils % % Lymphocytes % % Monocytes % % Eosinophils % % Basophils % % Neutrophils # (1.3-7.7) k/uL Lymphocytes # (1.0-4.8) k/uL Monocytes # (0-1.0) k/uL Eosinophils # (0-0.7) k/uL Basophils # (0-0.2) k/uL PT (10.0-12.5) sec INR (<1.2) APTT (22.0-30.0) sec Sodium (137-145) mmol/L Potassium (3.5-5.1) mmol/L Chloride (98-107) mmol/L Carbon Dioxide (22-30) mmol/L Anion Gap mmol/L BUN (7-17) mg/dL Creatinine (0.52-1.04) mg/dL Est GFR (CKD-EPI)AfAm (>60 ml/min/1.73 sqM) Est GFR (CKD-EPI)NonAf (>60 ml/min/1.73 sqM) Glucose (74-99) mg/dL Calcium (8.4-10.2) mg/dL Total Bilirubin (0.2-1.3) mg/dL AST (14-36) U/L ALT (4-34) U/L Alkaline Phosphatase (38-126) U/L Creatine Kinase (30-135) U/L Troponin I <0.012 (0.000-0.034) ng/mL Total Protein (6.3-8.2) g/dL Albumin (3.5-5.0) g/dL - Medical Decision Making Was pt. sent in by a medical professional or institution (, PA, REEL CART OPERATOR, urgent care, hospital, or fci...) When possible be specific @ -[No] Did you speak to anyone other than the patient for history (EMS, parent, family, police, friend...)? What history was obtained from this source @ -[No] Did you review nursing and triage notes (agree or disagree)? Why? @ -[I reviewed and agree with nursing and triage notes] Were old charts reviewed (outside hosp., previous admission, EMS record, old EKG, old radiological studies, urgent care reports/EKG's, fci records)? Report findings @ -[No old charts were reviewed] Differential Diagnosis (chest pain, altered mental status, abdominal pain women, abdominal pain men, vaginal bleeding, weakness, fever, dyspnea, syncope, headache, dizziness, GI bleed, back pain, seizure, CVA, palpatations, mental health, musculoskeletal)? @ -[not applicable] EKG interpreted by me (3pts min.). @ -Yes and demonstrates sinus rhythm with a first-degree block. Rate of 66. VT interval 212. QRS 172. QTc of 468. No acute ST segment elevations or depressions Repeat EKG continues to demonstrate sinus rhythm with a rate of 71. VT interval 218. QRS 173. QTc of 42. Right bundle branch block. No acute ST segment elevations X-rays interpreted by me (1pt min.). @ -[None done] CT interpreted by me (1pt min.). @ -[None done] U/S interpreted by me (1pt. min.). @ -[None done] What testing was considered but not performed or refused? (CT, X-rays, U/S, labs)? Why? @ -[None] What meds were considered but not given or refused? Why? @ -[None] Did you discuss the management of the patient with other professionals (professionals i.e. , PA, REEL CART OPERATOR, lab, RT, psych nurse, social media marketing manager, vacuum evaporation operator, teacher, disabilities services officer, keycase assembler)? Give summary @ -[No] Was smoking cessation discussed for >3mins.? @ -[No] Was critical care preformed (if so, how long)? @ -[No] Were there social determinants of health that impacted care today? How? (Homelessness, low income, unemployed, alcoholism, drug addiction, transportation, low edu. Level, literacy, decrease access to med. care, group home, rehab)? @ -[No] Was there de-escalation of care discussed even if they declined (Discuss DNR or withdrawal of care, Hospice)? DNR status @ -[No] What co-morbidities impacted this encounter? (DM, HTN, Smoking, COPD, CAD, Cancer, CVA, ARF, Chemo, Hep., AIDS, mental health diagnosis, sleep apnea, morbid obesity)? @ -[None] Was patient admitted / discharged? Hospital course, mention meds given and route, prescriptions, significant lab abnormalities, going to OR and other p ertinent info. @ -[hospital course] Undiagnosed new problem with uncertain prognosis? @ -[No] Drug Therapy requiring intensive monitoring for toxicity (Heparin, Nitro, Insulin, Cardizem)? @ -[No] Were any procedures done? @ -[No] Diagnosis/symptom? @ -[default] Acute, or Chronic, or Acute on Chronic? @ -[default] Uncomplicated (without systemic symptoms) or Complicated (systemic symptoms)? @ -[default] Side effects of treatment? @ -[No] Exacerbation, Progression, or Severe Exacerbation? @ -[No] Poses a threat to life or bodily function? How? (Chest pain, USA, OR, pneumonia, PE, COPD, DKA, ARF, appy, cholecystitis, CVA, Diverticulitis, Homicidal, Suicidal, threat to staff... and all critical care pts) @ -[No] Past Medical History Past Medical History: Cancer, CVA/TIA, Syncope Additional Past Medical History / Comment(s): migraines, "stress seizures", swelling of left lower leg, insomnia, hx hiatal hernia, hx colon cancer, diarrhea, hx psoriasis, Leaky heart valve, episodes of "passing out", 3x blocked sweat glands currently. BLOOD TRANSFUSIONS FOR LOW HGB. tia 5 yrs ago no residual. uterine and colon ca x2. see dr [facility] History of Any Multi-Drug Resistant Organisms: MRSA Date of last positivie culture/infection: 08/10/19 MDRO Source:: URINE Past Surgical History: Appendectomy, Bowel Resection, Cholecystectomy, Ear Surgery, Hernia Repair, Hysterectomy, Orthopedic Surgery Additional Past Surgical History / Comment(s): frantz knee arthroscopy, hiatal hernia surgery, rt ear surgery to remove middle ear, lymph node biopsy right armpit. loop recorder Past Anesthesia/Blood Transfusion Reactions: Postoperative Nausea & Vomiting (PONV) Additional Past Anesthesia/Blood Transfusion Reaction / Comment(s): Pt has received blood in past without reaction. Type of Cardiac Device: Loop Device Placement Date:: 2016 states need to be removed everything fine now per patien Past Psychological History: Anxiety, Panic Disorder Smoking Status: Never smoker Past Alcohol Use History: Occasional Past Drug Use History: None Reported - Past Family History Mother Family Medical History: Coronary Artery Disease (CAD), Diabetes Mellitus Additional Family Medical History / Comment(s): . Father Family Medical History: No Reported History Additional Family Medical History / Comment(s): Father is healthy Course Vital Signs 04/08/24 04/08/24 04/08/24 16:37 16:38 16:52 Temperature 97.6 F Pulse Rate 66 70 62 Respiratory 17 16 Rate Blood Pressure 180/76 180/76 203/85 O2 Sat by Pulse 97 98 Oximetry 04/08/24 04/08/24 04/08/24 17:07 17:13 17:22 Temperature Pulse Rate 67 64 73 Respiratory 17 19 16 Rate Blood Pressure 179/87 179/87 203/90 O2 Sat by Pulse 99 98 98 Oximetry 04/08/24 04/08/24 04/08/24 17:37 17:51 17:52 Temperature Pulse Rate 79 75 75 Respiratory 18 19 16 Rate Blood Pressure 187/86 136/74 153/74 O2 Sat by Pulse 99 97 98 Oximetry 04/08/24 04/08/24 04/08/24 18:00 18:07 18:22 Temperature Pulse Rate 79 78 72 Respiratory 17 17 17 Rate Blood Pressure 154/74 165/69 148/67 O2 Sat by Pulse 97 97 98 Oximetry 04/08/24 04/08/24 04/08/24 18:47 18:52 19:05 Temperature 98.0 F Pulse Rate 66 64 61 Respiratory 19 18 19 Rate Blood Pressure 163/65 160/74 180/74 O2 Sat by Pulse 96 93 L 97 Oximetry 04/08/24 04/08/24 19:15 19:30 Temperature Pulse Rate 79 74 Respiratory 17 18 Rate Blood Pressure 180/77 128/68 O2 Sat by Pulse 99 Oximetry Disposition Clinical Impression: Right sided weakness, Cerebrovascular accident (CVA) Disposition: ADMITTED IP TO THIS [facility] Condition: Stable Is patient prescribed a controlled substance at d/c from ED?: No Time of Disposition: 18:16 Decision to Admit Reason: Admit from EC Decision Date: 04/08/24 Decision Time: 18:16
--- NOTE | 2024-04-08 18:13 | CT ---
EXAMINATION TYPE: CT angio head neck DATE OF EXAM: 04/08/2024 5:25 PM COMPARISON: None. CLINICAL INDICATION: Female, 58 years old with history of Neuro deficit, acute, stroke suspected; PHH , Code stroke: Neuro deficit, acute, stroke suspected, TRAN unresponsive r sided weakness. TECHNIQUE: Axially acquired helical CT angiogram of the head and neck was obtained with contrast. Axi al images are supplemented with 3D reconstructions and MIP images which were post-processed at an in dependent workstation. NASCET criteria used. Contrast used:65cc mL of Isovue 370 with IV Contrast, Oral contrast used: None. CT DLP: 558.3 mGycm, Automated exposure control for dose reduction was used. FINDINGS: CTA HEAD: No evidence of acute intracranial hemorrhage, mass effect, or midline shift. The ventricles, sulci, a nd cisterns are unremarkable. Vertebral arteries: The vertebral arteries are patent. Vertebral artery dominance: Left Basilar artery: The basilar artery is intact. The basilar artery bifurcation is normal. Internal Carotid arteries: The cervical, petrous, cavernous and supraclinoid segments are normal. GAIL: Patent with no evidence of aneurysm. ACOM: Present without evidence of aneurysm. MCA: Patent with no evidence of aneurysm. PATIENT RELATIONS DIRECTOR: Patent with no evidence of aneurysm. PCOM: Hypoplastic bilaterally. Dural sinuses: Patent. CTA NECK: Right Carotid System: The common carotid artery and external carotid artery are patent. The carotid bifurcation demonstrate s no evidence of hemodynamically significant stenosis. The remaining portions of the internal carotid artery demonstrate normal size without significant narrowing. Left Carotid System: The common carotid artery and external carotid artery are patent. The carotid bifurcation demonstrate s no evidence of hemodynamically significant stenosis. The remaining portions of the internal carotid artery demonstrate normal size without significant narrowing. Vertebral arteries are patent without evidence hemodynamically significant stenosis. Common origin of the right brachiocephalic and left common carotid arteries. The origins of the great vessels are patent. No evidence of hemodynamically significant stenosis. Upper thorax: IMPRESSION: 1. No evidence of dissection of the cervical internal carotid arteries or vertebral arteries. 2. No any evidence of significant stenosis at the carotid bifurcations. 3. No evidence of intracranial high-grade stenosis or intracranial aneurysm. [facility], , 04/08/2024 6:11 PM
[2024-04-08] MEDS ORDERED: Potassium Replacement Protocol 1 EACH MISC MISCELLANE PRN (18:16)
[2024-04-08] MEDS ORDERED: NALOXONE 0.4 MG/ML 1 ML VIAL IV PRN (18:16)
[2024-04-08] MEDS: HYDROmorphone 1 MG/ML 1 ML SYRINGE IVP STA (18:58)
[2024-04-08] MEDS: ACETAMINOPHEN TAB 325 MG TAB PO STA (23:48)
[2024-04-09] MEDS: diazePAM 5 MG TAB PO STA (01:17)
[2024-04-09] MEDS: SERTRALINE 100 MG TAB PO SCH (01:17)
[2024-04-09] MEDS: lamoTRIgine 100 MG TAB PO SCH (01:18)
[2024-04-09] MEDS ORDERED: ACETAMINOPHEN TAB 325 MG TAB PO PRN (04:00)
--- NOTE | 2024-04-09 04:15 | P.CNPUL ---
History of Present Illness Consult date: 04/09/24 Requesting physician: Stacie Garcia Chief complaint: right sided weakness History of present illness: Patient is a 58-year-old female with past medical history significant for pseudoseizure, migraines, fibromyalgia, hyperlipidemia, colon cancer. Of note, patient thought to have CVA/TIA back in 2021 did receive tPA during that time. Her presenting symptoms were acute right upper and lower extremity paralysis. Follow-up brain MRI during that time did not show any evidence of infarct. 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 She was evaluated by psychiatry. She does follow with an outpatient neurologist april Edwards. Patient returns the emergency department yesterday afternoon with acute right- sided weakness involving the right upper and lower extremities. Apparently lives in a community setting, noted with altered gait and dragging her right foot. Also associated headache. Blood pressure was noted to be severely hypertensive on arrival, 203/85 mmHg. She was transiently on Cardene drip. The symptoms reportedly started at 1 PM yesterday afternoon. EMS was called immediately. Brain CT did not show any acute intercerebral hemorrhage or mass effect. Brain CTA did not show any evidence of dissecting cervical internal carotid arteries or vertebral arteries. No evidence of significant flow- limiting stenosis at the carotid bifurcations. No evidence of intracranial high-grade stenosis or intercranial aneurysm. She was given dose of TNK while in the ER. CBC: WC count 7.9, hemoglobin 12.3, hematocrit 38.4, platelets 252. Coagulation profile includes a PT of 10, INR of 0.9, APTT of 22.6. CMP: Sodium 141, potassium 4.3, chloride 105, serum bicarb 27, BUN 24, creatinine 0.92, glucose 108. LFTs includes a AST of 32, ALT of 38, ALP 188. Troponin less than 0.012. EKG: Sinus rhythm, IVCD, rate 71 bpm, no obvious acute ischemic changes. Patient is currently being evaluated in the emergency department, trauma bay 2. She continues to have right-sided hemiparesis. She states that the upper and lower extremities are numb with pins/needles paresthesias. No seizure activity. States that she has "stress" seizures. She takes Lamictal and valium on an outpatient basis peer denies missing any doses. Current vitals: 98 F, heart rate 75 bpm, blood pressure 154/88 mmHg, SpO2 is 99% on room air oxygen. Review of Systems Constitutional: Reports chronic headaches, Denies chills, Denies fever, Denies poor appetite, Denies weight loss Ears, nose, mouth and throat: Reports headache, Denies epistaxis, Denies nasal congestion, Denies nasal discharge, Denies post-nasal drip, Denies sinus pain, Denies sinus pressure, Denies sore throat Cardiovascular: Reports high blood pressure, Denies chest pain, Denies dyspnea on exertion, Denies lightheadedness, Denies orthopnea, Denies palpitations, Denies shortness of breath, Denies syncope Respiratory: Denies congestion, Denies cough, Denies dyspnea, Denies home oxygen Gastrointestinal: Denies abdominal pain, Denies change in bowel habits, Denies hematemesis, Denies hematochezia, Denies melena, Denies nausea, Denies vomiting Genitourinary: Denies dysuria Musculoskeletal: Reports arm numbness/tingling, Reports leg numbness/tingling, Reports limitation of motion Integumentary: Denies rash Neurological: Reports paralysis, Reports paresthesias, Reports seizures, Reports syncope, Reports weakness, Denies aphasia, Denies ataxia, Denies balance difficulties, Denies head injury, Denies loss of vision, Denies visual changes Psychiatric: Reports anxiety, Reports depression, Denies suicidal ideation Past Medical History Past Medical History: Cancer, CVA/TIA, Syncope Additional Past Medical History / Comment(s): migraines, "stress seizures", swelling of left lower leg, insomnia, hx hiatal hernia, hx colon cancer, diarrhea, hx psoriasis, Leaky heart valve, episodes of "passing out", 3x blocked sweat glands currently. BLOOD TRANSFUSIONS FOR LOW HGB. tia 5 yrs ago no residual. uterine and colon ca x2. see dr Davenport H & P History of Any Multi-Drug Resistant Organisms: MRSA Date of last positivie culture/infection: 08/10/19 MDRO Source:: URINE Past Surgical History: Appendectomy, Bowel Resection, Cholecystectomy, Ear Surgery, Hernia Repair, Hysterectomy, Orthopedic Surgery Additional Past Surgical History / Comment(s): frantz knee arthroscopy, hiatal hernia surgery, rt ear surgery to remove middle ear, lymph node biopsy right armpit. loop recorder Past Anesthesia/Blood Transfusion Reactions: Postoperative Nausea & Vomiting (PONV) Additional Past Anesthesia/Blood Transfusion Reaction / Comment(s): Pt has received blood in past without reaction. Type of Cardiac Device: Loop Device Placement Date:: 2016 states need to be removed everything fine now per patien Past Psychological History: Anxiety, Panic Disorder Smoking Status: Never smoker Past Alcohol Use History: Occasional Past Drug Use History: None Reported - Past Family History Mother Family Medical History: Coronary Artery Disease (CAD), Diabetes Mellitus Additional Family Medical History / Comment(s): . Father Family Medical History: No Reported History Additional Family Medical History / Comment(s): Father is healthy Medications and Allergies Home Medications Medication Instructions Recorded Confirmed Type lamoTRIgine [LaMICtal] 200 mg PO BID 09/26/18 04/08/24 History Sertraline [Zoloft] 100 mg PO BID 03/22/22 04/08/24 History diazePAM [Valium] 10 mg PO HS 08/02/23 04/08/24 History Nitroglycerin Sl Tabs [Nitrostat] 0.4 mg SUBLINGUAL Q5M PRN #20 tab 02/08/24 04/08/24 Rx Atorvastatin [Lipitor] 80 mg PO HS 04/08/24 04/08/24 History Mupirocin 2% Oint [Bactroban 2% 1 applic TOPICAL DAILY PRN 04/08/24 04/08/24 History Oint] Allergies Allergy/AdvReac Type Severity Reaction Status Date / Time cephalexin [From Keflex] Allergy Rash/Hives Verified 04/08/24 17:54 codeine Allergy Rash/Hives Verified 04/08/24 17:54 erythromycin base Allergy Rash/Hives Verified 04/08/24 17:54 gadobutrol [From Gadavist] Allergy Anaphylaxis Verified 04/08/24 17:54 Gadolinium-Containing Allergy Anaphylaxis Verified 04/08/24 17:54 Contrast Medi iodine Allergy Anaphylaxis Verified 04/08/24 17:54 Penicillins Allergy Anaphylaxis Verified 04/08/24 17:54 vancomycin Allergy Anaphylaxis Verified 04/08/24 17:54 azithromycin AdvReac red face Verified 04/08/24 17:54 diphenhydramine AdvReac Confusion Verified 04/08/24 17:54 [From Benadryl] Physical Exam Vitals: Vital Signs Temp Pulse Resp BP Pulse Ox 04/08/24 22:25 75 18 154/88 99 04/08/24 21:21 65 18 157/79 99 04/08/24 20:32 70 18 160/72 95 04/08/24 19:30 74 18 128/68 04/08/24 19:15 79 17 180/77 99 04/08/24 19:05 61 19 180/74 97 04/08/24 18:52 64 18 160/74 93 L 04/08/24 18:47 98.0 F 66 19 163/65 96 04/08/24 18:22 72 17 148/67 98 04/08/24 18:07 78 17 165/69 97 04/08/24 18:00 79 17 154/74 97 04/08/24 17:52 75 16 153/74 98 04/08/24 17:51 75 19 136/74 97 04/08/24 17:37 79 18 187/86 99 04/08/24 17:22 73 16 203/90 98 04/08/24 17:13 64 19 179/87 98 04/08/24 17:07 67 17 179/87 99 04/08/24 16:52 97.6 F 62 16 203/85 98 04/08/24 16:38 70 180/76 04/08/24 16:37 66 17 180/76 97 Intake and Output 04/08/24 04/08/24 04/09/24 14:59 22:59 06:59 Intake Total 65.000 Balance 65.000 Intake: Intake, IV Titration 65.000 Amount niCARdipine 20 mg In 65.000 Sodium Chloride 0.9% 192 ml @ 5 MG/HR 50 mls/hr IV .Q4H [facility] Rx#:[id number] Other: Weight 86.183 kg GENERAL EXAM: Alert, 58-year-old female, right-sided hemiplegia, comfortable in no apparent distress. HEAD: Normocephalic and atraumatic EYES: Normal reaction of pupils, equal size. NOSE: Clear with pink turbinates. THROAT: No erythema or exudates. NECK: No masses, no JVD. CHEST: No chest wall deformity. LUNGS: Equal air entry with no crackles, wheeze, rhonchi or dullness. On room air. No conversational dyspnea or accessory muscle use.. CVS: S1 and S2 normal with no audible murmur, regular rhythm. No extra heart sounds ABDOMEN: No hepatosplenomegaly, active bowel sounds, no guarding or rigidity. SPINE: No scoliosis or deformity SKIN: No rashes CENTRAL NERVOUS SYSTEM: Alert and oriented x 3, no dysarthria or dysphasia, flattening of the right nasolabial fold, tongue protrudes midline, persistent right upper and lower extremity hemiplegia. No ataxia outside of weakness. Bilateral lower extremity patellar DTRs 2+ bilaterally. EXTREMITIES: There is no peripheral edema, clubbing, or cyanosis. Peripheral pulses are intact. Right lower extremity does appear mildly atrophied. Results - Laboratory Findings CBC and BMP: 04/09/24 06:24 04/08/24 16:43 PT/INR, D-dimer PT 10.0 sec (10.0-12.5) 04/08/24 16:43 INR 0.9 (<1.2) 04/08/24 16:43 Abnormal lab findings: Abnormal Labs 04/08/24 16:43 BUN 24 H Glucose 108 H ALT 38 H Alkaline Phosphatase 188 H - Diagnostic Findings Chest x-ray: image reviewed Assessment and Plan Assessment: Recurrent right-sided hemiplegia, thought to have acute CVA/TIA, a dose of TNK was given in the ED Hypertensive urgency, transiently on Cardene infusion in the ED, this has been discontinued. History of coronary artery disease, heart catheterization done February, showing mild nonobstructive CAD and mildly elevated left-sided filling pressures. History of valvular heart disease and mild to moderate mitral regurgitation History of hyperlipidemia History of pseudoseizures History of migraines History of fibromyalgia Plan: Patient is status post TNK, continues to have right-sided hemiplegia without improvement. Initial brain CT unremarkable for acute intracranial hemorrhage, mass effect, or midline shift. Brain CTA did not show evidence of dissection of the cervical internal carotid arteries or vertebral arteries. No evidence of significant stenosis at the carotid bifurcations. No evidence of intracranial high-grade stenosis or intracranial aneurysm. She is not yet evaluated by the inpatient neurologist Follow-up brain CT 24 hours post TNK Continue neurochecks per protocol Avoid extremes in blood pressure, <180/105 mmHg for first 24 hrs Cardene infusion has since been stopped. Continue statin Patient is to be admitted to the intensive care unit once bed available. I have personally seen and examined the patient, performed the documentation and the assessment and plan as written. Number of minutes spent on the visit:20 This is a joint evaluation that was done along with the nurse practitioner. This evaluation was done more than 30 minutes. In summary, the patient presented with acute right-sided hemiplegia and based on consultation with neuro interventionalist, the patient was given TNK in the emergency department. The patient also had an acute hypertensive urgency and the patient was started on Cardene infusion that was subsequent discontinued. Noted following the TNK, the patient continues to have right-sided hemiplegia without any improvement. Initial CAT scan of the brain was negative for any acute stroke. CTA of the brain showed no evidence of an dissection or obstruction of the intracranial arteries. The patient will need to be seen by neurology. The patient will need to come into the intensive care unit for close neurologic monitoring over the next 24 hours. Blood pressure is stable for now on the Cardene drip has been discontinued. The cardiac rhythm is sinus and the chest x-ray shows no acute abnormalities and the patient is currently on room air oxygen. Noted the patient is similar presentation in 2021 and she was given thrombolytics back then. However, no subsequent imaging of the brain or further workup has been done. Echocardiogram from 02/07/2024 was essentially within normal limits with mild to moderate mitral regurgitation. Cardiac stress test on 02/07/2024 showed small areas of stress-induced ischemic changes in the inferior lateral wall and apex, reversible and a previous cardiac catheterization on 08/05/2023 showed mild to moderate nonobstructive coronary artery disease, and no interventions were done back then. . She has had a previous 30-day event recorder placed and her cardiac rhythm was in sinus with interventricular conduction delay of a LBB type. No episodes of atrial fibrillation. Time with Patient: Greater than 30
[2024-04-09 07:41] LABS: Basophils % (A) 0 %; Eosinophils % (A) 0 %; HCT 37.7 % (34.0-46.0); HGB 12.3 gm/dL (11.4-16.0); Lymphocytes # (A) 0.8 k/uL (1.0-4.8); Lymphocytes % (A) 13 %; MCH 29.4 pg (25.0-35.0); MCHC 32.7 g/dL (31.0-37.0); MCV 89.8 fL (80.0-100.0); Monocytes # (A) 0.1 k/uL (0-1.0); Monocytes % (A) 2 %; Neutrophils # (A) 5.7 k/uL (1.3-7.7); Neutrophils % (A) 85 %; Platelet Count 258 k/uL (150-450); RDW 14.3 % (11.5-15.5); WBC 6.7 k/uL (3.8-10.6)
[2024-04-09 08:09] LABS: African American GFR (CKD) >90 (>60 ml/min/1.73 sqM); Anion Gap 10 mmol/L; Blood Urea Nitrogen 27 mg/dL (7-17); Calcium 9.8 mg/dL (8.4-10.2); Carbon Dioxide 25 mmol/L (22-30); Chloride 103 mmol/L (98-107); Glucose 116 mg/dL (74-99); Non-African American GFR(CKD) 82 (>60 ml/min/1.73 sqM); Sodium 138 mmol/L (137-145)
--- NOTE | 2024-04-09 08:54 | P.HPIM ---
History of Present Illness This is a pleasant 58 years old female with past medical history of multiple medical problems as below. Presents because of confusion the right side weakness Patient states that she was downstairs and then she made 3 girls from the building which they asked her if she was doing okay, at that time she could not tell where she is at. Also she told his nurse " who are you " which looks unusual for the pt because the patient. can realize she knew them from before, and then one of the neighbors was passing by and he called her dad who came downstairs and then he took her to their apartment up, patient started feeling numbness and weakness in both right and lower extremities and he called the ambulance for her. Patient states that she could having numbness in her right middle 3 fingers on and off for about a year but not the whole upper extremities or lower extremities Also patient stating that she has severe frontal headache and around her eyes which is now significantly improved with this is only slight. She denies d izziness, no double vision no, no slurred speech. She denies chest pain or dyspnea, no specific GI/ symptom She denies smoking alcohol illicit drugs She denies depression, anxiety, hallucination either visual or auditory. However patient states she is under a lot of stressors and manage with her son, she did not spend the Felt near with him although she wanted to. Also she has not talking to him yet Patient states that she used to follow-up with Dr. Rodriguez the female neurologist and with Dr. Thomas but currently switched to another neurologist in [place] she has appointment for cognitive test this month, as she has memory problems She is hemodynamically stable, blood pressure was elevated on admission She is afebrile Labs unremarkable with CBC, BMP, LFT, troponin CT of the brain is negative for acute infarction CTA of the head and neck is also negative for acute process Chest x-ray showing no acute cardiopulmonary process Review of Systems Review of systems CONSTITUTIONAL: No fever, no malaise, no fatigue. HEENT: No recent visual problems or hearing problems. Denied any sore throat. CARDIOVASCULAR: No orthopnea, PND, no palpitations, no syncope. PULMONARY: No shortness of breath, no cough, no hemoptysis. GASTROINTESTINAL: No diarrhea, no nausea, no vomiting, no abdominal pain. Normoactive bowel sounds. NEUROLOGICAL: N as above HEMATOLOGICAL: Denies any bleeding or petechiae. GENITOURINARY: Denies any burning micturition, frequency, or urgency. MUSCULOSKELETAL/RHEUMATOLOGICAL: Denies any joint pain, swelling, or any muscle pain. ENDOCRINE: Denies any polyuria or polydipsia. Past Medical History Past Medical History: Cancer, CVA/TIA, Syncope Additional Past Medical History / Comment(s): migraines, "stress seizures", swelling of left lower leg, insomnia, hx hiatal hernia, hx colon cancer, diarrhea, hx psoriasis, Leaky heart valve, episodes of "passing out", 3x blocked sweat glands currently. BLOOD TRANSFUSIONS FOR LOW HGB. tia 5 yrs ago no residual. uterine and colon ca x2. see dr Davenport H & P History of Any Multi-Drug Resistant Organisms: MRSA Date of last positivie culture/infection: 08/10/19 MDRO Source:: URINE Past Surgical History: Appendectomy, Bowel Resection, Cholecystectomy, Ear Surgery, Hernia Repair, Hysterectomy, Orthopedic Surgery Additional Past Surgical History / Comment(s): frantz knee arthroscopy, hiatal hernia surgery, rt ear surgery to remove middle ear, lymph node biopsy right armpit. loop recorder Past Anesthesia/Blood Transfusion Reactions: Postoperative Nausea & Vomiting (PONV) Additional Past Anesthesia/Blood Transfusion Reaction / Comment(s): Pt has received blood in past without reaction. Type of Cardiac Device: Loop Device Placement Date:: 2016 states need to be removed everything fine now per patien Past Psychological History: Anxiety, Panic Disorder Smoking Status: Never smoker Past Alcohol Use History: Occasional Past Drug Use History: None Reported - Past Family History Mother Family Medical History: Coronary Artery Disease (CAD), Diabetes Mellitus Additional Family Medical History / Comment(s): . Father Family Medical History: No Reported History Additional Family Medical History / Comment(s): Father is healthy Medications and Allergies Home Medications Medication Instructions Recorded Confirmed Type lamoTRIgine [LaMICtal] 200 mg PO BID 09/26/18 04/08/24 History Sertraline [Zoloft] 100 mg PO BID 03/22/22 04/08/24 History diazePAM [Valium] 10 mg PO HS 08/02/23 04/08/24 History Nitroglycerin Sl Tabs [Nitrostat] 0.4 mg SUBLINGUAL Q5M PRN #20 tab 02/08/24 04/08/24 Rx Atorvastatin [Lipitor] 80 mg PO HS 04/08/24 04/08/24 History Mupirocin 2% Oint [Bactroban 2% 1 applic TOPICAL DAILY PRN 04/08/24 04/08/24 History Oint] Allergies Allergy/AdvReac Type Severity Reaction Status Date / Time cephalexin [From Keflex] Allergy Rash/Hives Verified 04/08/24 17:54 codeine Allergy Rash/Hives Verified 04/08/24 17:54 erythromycin base Allergy Rash/Hives Verified 04/08/24 17:54 gadobutrol [From Gadavist] Allergy Anaphylaxis Verified 04/08/24 17:54 Gadolinium-Containing Allergy Anaphylaxis Verified 04/08/24 17:54 Contrast Medi iodine Allergy Anaphylaxis Verified 04/08/24 17:54 Penicillins Allergy Anaphylaxis Verified 04/08/24 17:54 vancomycin Allergy Anaphylaxis Verified 04/08/24 17:54 azithromycin AdvReac red face Verified 04/08/24 17:54 diphenhydramine AdvReac Confusion Verified 04/08/24 17:54 [From Benadryl] Physical Exam Vitals: Vital Signs Temp Pulse Resp BP Pulse Ox 04/09/24 05:41 52 L 16 139/63 94 L 04/09/24 04:45 58 L 18 138/66 97 04/09/24 02:32 59 L 18 129/62 96 04/09/24 01:35 60 16 125/75 97 04/09/24 00:45 64 18 145/63 93 L 04/08/24 23:35 66 18 128/74 97 04/08/24 22:25 75 18 154/88 99 04/08/24 21:21 65 18 157/79 99 04/08/24 20:32 70 18 160/72 95 04/08/24 19:30 74 18 128/68 04/08/24 19:15 79 17 180/77 99 04/08/24 19:05 61 19 180/74 97 04/08/24 18:52 64 18 160/74 93 L 04/08/24 18:47 98.0 F 66 19 163/65 96 04/08/24 18:22 72 17 148/67 98 04/08/24 18:07 78 17 165/69 97 04/08/24 18:00 79 17 154/74 97 04/08/24 17:52 75 16 153/74 98 04/08/24 17:51 75 19 136/74 97 04/08/24 17:37 79 18 187/86 99 04/08/24 17:22 73 16 203/90 98 04/08/24 17:13 64 19 179/87 98 04/08/24 17:07 67 17 179/87 99 04/08/24 16:52 97.6 F 62 16 203/85 98 04/08/24 16:38 70 180/76 04/08/24 16:37 66 17 180/76 97 Intake and Output 04/08/24 04/08/24 04/09/24 14:59 22:59 06:59 Intake Total 65.000 0 Balance 65.000 0 Intake: Intake, IV Titration 65.000 0 Amount niCARdipine 20 mg In 65.000 0 Sodium Chloride 0.9% 192 ml @ 5 MG/HR 50 mls/hr IV .Q4H [facility] Rx#:[id number] Other: Weight 86.183 kg GENERAL: The patient is alert and oriented x3, not in any acute distress. Well developed, well nourished. HEENT: Pupils are round and equally reacting to light. EOMI. No scleral icterus. No conjunctival pallor. Normocephalic, atraumatic. No pharyngeal erythema. No thyromegaly. CARDIOVASCULAR: S1 and S2 present. No murmurs, rubs, or gallops. PULMONARY: Chest is clear to auscultation, no wheezing , no crackles. ABDOMEN: Soft, nontender, nondistended, normoactive bowel sounds. No palpable organomegaly. MUSCULOSKELETAL: No joint swelling or deformity. EXTREMITIES: No cyanosis, clubbing, or pedal edema. -NEUROLOGICAL: patient fully awake and oriented, she states she is unable to move her right and lower extremity not eating little bit. Her right lower extremity is very stiff and resistant to passive movement while the right upper extremity is more flaccid. She could only wiggle the toes of her right foot little bit but not the right hand. She says there is decreased sensation on both right upper and lower extremities SKIN: No rashes. no petechiae. Results CBC & Chem 7: 04/09/24 06:24 04/09/24 06:24 Labs: Abnormal Lab Results - Last 24 Hours (Table) 04/08/24 Range/Units 16:43 BUN 24 H (7-17) mg/dL Glucose 108 H (74-99) mg/dL ALT 38 H (4-34) U/L Alkaline Phosphatase 188 H (38-126) U/L Assessment and Plan Assessment: Acute confusion associated with right side weakness and numbness, status post TNKase, and the emergency room. Acute stroke was a concern, differential diagnosis is conversion disorder Encephalopathy, secondary to above, currently improved. This is on the top of her memory problems Possible elements of hypertension urgency on admission, currently controlled History of pseudoseizure History of migraine History of fibromyalgia moderate mitral regurgitation Plan: Patient received TNKase in emergency room this patient is going to the ICU for monitoring, hopefully she can leave the ICU within 24 hours Pulmonary/critical team consult on the case already evaluated the patient Neurology team consult Continue Zoloft Continue with Lamictal GI prophylaxis: Pepcid DVT prophylaxis mechanical Prognosis guarded
[2024-04-09] MEDS: FAMOTIDINE 20 MG/2 ML VIAL IV SCH (09:19)
--- NOTE | 2024-04-09 13:21 | P.CNNES ---
History of Present Illness Consult date: 04/09/24 Requesting physician: Stacie Garcia Reason for Consult: acute cva s/p tnkase History of Present Illness: Patient is a 58-year-old right-handed female with history of pseudoseizures, history of conversion disorder, came to the hospital yesterday at 4:31 PM for right-sided weakness. Patient's parents were also present by the bedside. Patient mentions that she lives in an apartment complex. She went to the community room to do some hand crafting. She noticed some blurred vision. She ate some lunch and tried to go back to crafting again but still had blurred vision. She got up from the chair and remembers walking out by the front door area. She noticed that she could not recognize the lady sitting on the chair. She had a bad headache, which she describes as like a rubber band snapping. She notices headache involving the left upper medial eye socket region that extends to the frontal region and around her head. Yesterday was very severe but today not as bad. Patient subsequently noticed right-sided weakness. Her last known well was 3 PM. Patient was complaining of a headache. Patient not on any blood thinners. She does have hypertension. Denied any visual change. Patient apparently had similar symptoms in 2021. No head trauma. Vital signs on arrival Blood pressure 180/76, which came up to 203/85, pulse is 66 temperature 27.6. Blood test shows normal CBC, PT PTT, normal basic metabolic panel. AST is normal, ALT 38. CK normal troponin negative. CT head showed no acute intracranial process. I personally reviewed CT head, agree with the findings. Chest x-ray showed no acute cardiopulmonary process. EKG shows sinus rhythm with first-degree AV block. Patient received TNK at 5:11 PM yesterday. Home medications include lamotrigine 200 mg twice daily, Zoloft 100 mg twice daily, diazepam 10 mg at bedtime, Lipitor 80 mg. Patient has been seen by myself on 03/16/2022 and also on 02/14/2020 for acute right hemiparesis involving the arm and leg diagnosed with possible conversion disorder, as the MRI of the brain has been negative each of the time. Patient also has history of nonepileptic "stress" seizures. Patient has history of colon cancer, in remission. Patient had a normal brain MRI on 05/19/2021 when she had right hemiparesis. She did receive tPA on the admission on 05/19/2021. Patient was discharged on aspirin 325 mg daily. However she is not taking any aspirin regimen at home. She does get occasional migraines. The migraines are usually bitemporal frontal region. Patient denies any history of tobacco use, or alcohol. Denies hypertension or diabetes. She does admit to having some weak peripheral vision, which is chronic. Review of Systems Positive for headache, right-sided weakness numbness and some history of decreased peripheral vision which is chronic. Otherwise completely unremarkable. Past Medical History Past Medical History: Cancer, CVA/TIA, Syncope Additional Past Medical History / Comment(s): migraines, "stress seizures", swelling of left lower leg, insomnia, hx hiatal hernia, hx colon cancer, diarrhea, hx psoriasis, Leaky heart valve, episodes of "passing out", 3x blocked sweat glands currently. BLOOD TRANSFUSIONS FOR LOW HGB. tia 5 yrs ago no residual. uterine and colon ca x2. see dr Davenport H & P History of Any Multi-Drug Resistant Organisms: MRSA Date of last positivie culture/infection: 08/10/19 MDRO Source:: URINE Past Surgical History: Appendectomy, Bowel Resection, Cholecystectomy, Ear Surgery, Hernia Repair, Hysterectomy, Orthopedic Surgery Additional Past Surgical History / Comment(s): frantz knee arthroscopy, hiatal hernia surgery, rt ear surgery to remove middle ear, lymph node biopsy right armpit. loop recorder Past Anesthesia/Blood Transfusion Reactions: Postoperative Nausea & Vomiting (PONV) Additional Past Anesthesia/Blood Transfusion Reaction / Comment(s): Pt has recei aida blood in past without reaction. Type of Cardiac Device: Loop Device Placement Date:: 2016 states need to be removed everything fine now per patien Past Psychological History: Anxiety, Panic Disorder Smoking Status: Never smoker Past Alcohol Use History: Occasional Past Drug Use History: None Reported - Past Family History Mother Family Medical History: Coronary Artery Disease (CAD), Diabetes Mellitus Additional Family Medical History / Comment(s): . Father Family Medical History: No Reported History Additional Family Medical History / Comment(s): Father is healthy Medications and Allergies Home Medications Medication Instructions Recorded Confirmed Type lamoTRIgine [LaMICtal] 200 mg PO BID 09/26/18 04/08/24 History Sertraline [Zoloft] 100 mg PO BID 03/22/22 04/08/24 History diazePAM [Valium] 10 mg PO HS 08/02/23 04/08/24 History Nitroglycerin Sl Tabs [Nitrostat] 0.4 mg SUBLINGUAL Q5M PRN #20 tab 02/08/24 04/08/24 Rx Atorvastatin [Lipitor] 80 mg PO HS 04/08/24 04/08/24 History Mupirocin 2% Oint [Bactroban 2% 1 applic TOPICAL DAILY PRN 04/08/24 04/08/24 History Oint] Allergies Allergy/AdvReac Type Severity Reaction Status Date / Time cephalexin [From Keflex] Allergy Rash/Hives Verified 04/08/24 17:54 codeine Allergy Rash/Hives Verified 04/08/24 17:54 erythromycin base Allergy Rash/Hives Verified 04/08/24 17:54 gadobutrol [From Gadavist] Allergy Anaphylaxis Verified 04/08/24 17:54 Gadolinium-Containing Allergy Anaphylaxis Verified 04/08/24 17:54 Contrast Medi iodine Allergy Anaphylaxis Verified 04/08/24 17:54 Penicillins Allergy Anaphylaxis Verified 04/08/24 17:54 vancomycin Allergy Anaphylaxis Verified 04/08/24 17:54 azithromycin AdvReac red face Verified 04/08/24 17:54 diphenhydramine AdvReac Confusion Verified 04/08/24 17:54 [From Benadryl] Physical Examination - Vital Signs Vital Signs: Vital Signs Temp Pulse Resp BP Pulse Ox 04/09/24 09:00 97.6 F 60 20 125/54 95 04/09/24 08:30 60 14 118/59 97 04/09/24 08:00 54 L 17 137/67 94 L 04/09/24 07:00 54 L 18 137/67 94 L 04/09/24 06:35 54 L 18 136/62 95 04/09/24 05:41 52 L 16 139/63 94 L 04/09/24 04:45 58 L 18 138/66 97 04/09/24 02:32 59 L 18 129/62 96 04/09/24 01:35 60 16 125/75 97 04/09/24 00:45 64 18 145/63 93 L 04/08/24 23:35 66 18 128/74 97 04/08/24 22:25 75 18 154/88 99 04/08/24 21:21 65 18 157/79 99 04/08/24 20:32 70 18 160/72 95 04/08/24 19:30 74 18 128/68 04/08/24 19:15 79 17 180/77 99 04/08/24 19:05 61 19 180/74 97 04/08/24 18:52 64 18 160/74 93 L 04/08/24 18:47 98.0 F 66 19 163/65 96 04/08/24 18:22 72 17 148/67 98 04/08/24 18:07 78 17 165/69 97 04/08/24 18:00 79 17 154/74 97 04/08/24 17:52 75 16 153/74 98 04/08/24 17:51 75 19 136/74 97 04/08/24 17:37 79 18 187/86 99 04/08/24 17:22 73 16 203/90 98 04/08/24 17:13 64 19 179/87 98 04/08/24 17:07 67 17 179/87 99 04/08/24 16:52 97.6 F 62 16 203/85 98 04/08/24 16:38 70 180/76 04/08/24 16:37 66 17 180/76 97 Intake and Output 04/08/24 04/09/24 04/09/24 22:59 06:59 14:59 Intake Total 65.000 0 Balance 65.000 0 Intake: Intake, IV Titration 65.000 0 Amount niCARdipine 20 mg In 65.000 0 Sodium Chloride 0.9% 192 ml @ 5 MG/HR 50 mls/hr IV .Q4H [facility] Rx#:[id number] Other: Weight 86.183 kg Patient is a middle-aged female, very pleasant, in no acute distress. Patient is alert awake oriented to time place and person. Speech and language functions are normal. Patient can name and repeat very well. No aphasia or dysarthria. Attention, concentration and fund of knowledge is adequate. On cranial nerve examination, pupils are equal, round and reacting to light, visual moreno are full on confrontation, with no neglect on double simultaneous stimulation. Patient does have some hesitancy and pointing to the visual moreno all over but no obvious neglect. Extraocular muscles are intact with no nystagmus. Face is symmetric, tongue protrudes to the midline. Palatal elevation and sensation normal, hearing and shoulder shrug decreased on the right, facial sensation normal. On muscle strength testing, there is no pronator drift on the left side and the strength is normal in the left arm and left leg. Patient is flaccid in the right arm and right leg, except some wiggling of the fingers of the right hand, and wiggling of the toes of the right foot. Patient was noticed to move her right arm normally while I entered the room, but then she did not move it on the right side. Deep tendon reflexes are symmetric 2+ all over and plantars downgoing bilaterally. Sensory to touch and pinching on the right side she was not feeling in the right arm and right leg. Normal on the left side. Cerebellar function showed no ataxia for sdmnil-ex-qtid testing or hbzi-na-jznn testing with the left arm and leg, and cannot perform in the right arm and right leg. Tone and bulk of muscles normal. Gait deferred.. On general examination, there is no carotid bruit or murmur, S1-S2 audible. Chest is clear on consultation. Abdomen is soft nontender. No organomegaly, bowel sounds present. Peripheral pulses are present. No peripheral edema. Results - Laboratory Findings CBC and BMP: 04/09/24 06:24 04/09/24 06:24 Abnormal Lab Findings: Abnormal Labs 04/08/24 04/09/24 04/09/24 16:43 06:24 06:24 Lymphocytes # 0.8 L BUN 24 H 27 H Glucose 108 H 116 H ALT 38 H Alkaline Phosphatase 188 H Assessment and Plan Assessment: * Acute onset of right-sided weakness, status post TNK. At present patient able to wiggle her fingers and toes, but still very weak on the right side. Suspect conversion disorder, as patient has presented in a similar pattern on 03/16/2022 and 02/14/2020. She received tPA on 05/19/2021, with subsequent normal MRI brain. Hemiplegic migraine also in the differential. * Hypertension * History of pseudoseizures * History of migraines * History of fibromyalgia Plan: CTA of the head and neck revealed no evidence of dissection of the cervical internal carotid arteries or vertebral arteries. No evidence of significant stenosis at the carotid bifurcations. No evidence of intracranial high-grade stenosis or intracranial aneurysm. 2D echo 02/07/2024 revealed normal LV function with EF 55 to 60%. No obvious regional wall motion abnormalities. Left atrium severely increased in volume. Mildly increased left atrial area. Mild to moderate MR, aortic valve sclerosis. Lipid panel with cholesterol 246, LDL 152, HDL 56 and triglycerides 187. Continue Lipitor 80 mg daily. Lipids are poorly controlled despite being on Li pitor. Hemoglobin A1c. Post TNK protocol to follow. Continue neurochecks. No antiplatelets or anticoagulants for 24 hours post TNK. Patient to undergo [address] head. If it is negative for bleed, then will start aspirin regimen. PT OT, speech therapy DVT prophylaxis: Start heparin subcu 24 hours post TNK. Neurology will follow. Thank you for the consult. Time with Patient: Greater than 30
[2024-04-09 16:55] LABS: Glucose,Whole Blood 102 mg/dL (70-110)
--- NOTE | 2024-04-09 17:12 | CT ---
EXAMINATION TYPE: CT brain wo con DATE OF EXAM: 04/09/2024 COMPARISON: Prior CT one day earlier and the study is CLINICAL INDICATION: Female, 58 years old with history of 24 hours post TNK; PHH, 24hrs post TNK. CT DLP: 1067.4 mGycm Automated exposure control for dose reduction was used. FINDINGS: No acute intracranial hemorrhage, mass effect, or midline shift. Ventricles and sulci are within norm al limits in size for patient's age. Rivera-white matter differentiation is maintained. Hyperostosis fr ontalis is redemonstrated. The paranasal sinuses remain clear. Bilateral aphakia is redemonstrated. IMPRESSION: NO ACUTE INTRACRANIAL HEMORRHAGE OR MIDLINE SHIFT. NO SIGNIFICANT CHANGE FROM MOST RECENT CT. [facility], , 04/09/2024 5:10 PM
[2024-04-09] MEDS: ACETAMINOPHEN IV (For NPO) 1,000 MG in EMPTY BAG 1 BAG IVPB PRN (18:21)
[2024-04-09 20:22] LABS: Glucose,Whole Blood 108 mg/dL (70-110)
[2024-04-09] MEDS: diazePAM 5 MG TAB PO SCH (22:04)
[2024-04-09] MEDS: ASPIRIN 81 MG PO STA (22:04)
[2024-04-09] MEDS: ATORVASTATIN 80 MG TAB PO SCH (22:04)
[2024-04-09] MEDS: KETOROLAC 15 MG/ML 1 ML VIAL IVP PRN (23:07)
[2024-04-10] MEDS: PANTOPRAZOLE 40 MG TABLET PO SCH (05:33)
[2024-04-10 07:58] LABS: Basophils % (A) 1 %; Eosinophils # (A) 0.1 k/uL (0-0.7); Eosinophils % (A) 1 %; HCT 35.1 % (34.0-46.0); HGB 11.5 gm/dL (11.4-16.0); Lymphocytes # (A) 2.1 k/uL (1.0-4.8); Lymphocytes % (A) 32 %; MCH 29.9 pg (25.0-35.0); MCHC 32.9 g/dL (31.0-37.0); MCV 90.9 fL (80.0-100.0); Mean Platelet Volume 7.6; Monocytes # (A) 0.3 k/uL (0-1.0); Monocytes % (A) 4 %; Neutrophils % (A) 62 %; Platelet Count 238 k/uL (150-450); RBC 3.86 m/uL (3.80-5.40); RDW 14.4 % (11.5-15.5); WBC 6.5 k/uL (3.8-10.6)
[2024-04-10 08:31] LABS: African American GFR (CKD) 67 (>60 ml/min/1.73 sqM); Anion Gap 5 mmol/L; Blood Urea Nitrogen 37 mg/dL (7-17); Calcium 8.9 mg/dL (8.4-10.2); Carbon Dioxide 31 mmol/L (22-30); Chloride 104 mmol/L (98-107); Glucose 94 mg/dL (74-99); Non-African American GFR(CKD) 58 (>60 ml/min/1.73 sqM); Potassium 4.3 mmol/L (3.5-5.1); Sodium 140 mmol/L (137-145)
[2024-04-10] MEDS: ASPIRIN 81 MG PO SCH (09:36)
[2024-04-10] MEDS: ALPRAZolam 0.25 MG TAB PO STA (16:05)
--- NOTE | 2024-04-10 18:19 | P.CONS ---
History of Present Illness - Reason for Consult Consult date: 04/10/24 Rehab recommendations - Chief Complaint Right-sided weakness - History of Present Illness Reshma Blackmon is a 58 year old, right handed, , who lives alone in a 55 year+ apartment complex. She resides in a second floor apartment with elevator access. Prior to admission, pt was ambulating without an assistive device. She has a wheelchair at home she has used in the past, but has not used it in over 2 years. Pt was independent for basic/advanced ADLs. Current driving: no. Transportation by: mother and father. Support system: parents are able to assist patient as needed, dad helps with grocery shopping Pt was admitted on 04/08/24 for right-sided weakness. Patient with history of pseu doseizures, fibromyalgia and possible conversion disorder. CT of the brain is negative for acute infarction. CTA of the head and neck is also negative for acute process. Chest x-ray showing no acute cardiopulmonary process.Patient was admitted to the ICU for hypertension, acute confusion with right side weakness and numbness, suspected CVA S/P TNK. Patient was seen for similar symptoms in 2019 and 2021 and she did receive TNK during the 2021 admission as well. Per records, due to normal brain MRI in 2021, she was diagnosed with possible conversion disorder. PM&R consulted for rehab recommendations. Therapy progress: bed mobility maxA x 2, transfers maxA x 2, bathing total assist, UB dress total assist, LB dress total assist 04/10/24: Patient reports prior to her arrival to the ER, she was down in her apartments community room when her eyes suddenly got blurry, her whole head started to ache, she developed right-sided weakness and she was also unable to recognize familiar people at that time. Reports current TRAN with history of, +blurred vision. 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 Reports history of anxiety. Denies current CP or abdominal pain. Reports SOB with exertion for last 2 mo nths, denies SOB at rest. Unsure of last bowel movement. Review of Systems As above in subjective. Past Medical History Past Medical History: Cancer, CVA/TIA, Syncope Additional Past Medical History / Comment(s): migraines, "stress seizures", swelling of left lower leg, insomnia, hx hiatal hernia, hx colon cancer, diarrhea, hx psoriasis, Leaky heart valve, episodes of "passing out", 3x blocked sweat glands currently. BLOOD TRANSFUSIONS FOR LOW HGB. tia 5 yrs ago no residual. uterine and colon ca x2. see dr Davenport H & P History of Any Multi-Drug Resistant Organisms: MRSA Year Discovered:: 08/10/19 MDRO Source:: URINE Past Surgical History: Appendectomy, Bowel Resection, Cholecystectomy, Ear Yokasta dawson, Hernia Repair, Hysterectomy, Orthopedic Surgery Additional Past Surgical History / Comment(s): frantz knee arthroscopy, hiatal hernia surgery, rt ear surgery to remove middle ear, lymph node biopsy right armpit. loop recorder Past Anesthesia/Blood Transfusion Reactions: Postoperative Nausea & Vomiting (PONV) Additional Past Anesthesia/Blood Transfusion Reaction / Comm: Pt has received blood in past without reaction. Type of Cardiac Device: Loop Device Placement Date:: 2016 states need to be removed everything fine now per patien Past Psychological History: Anxiety, Panic Disorder Smoking Status: Never smoker Past Alcohol Use History: Occasional Past Drug Use History: None Reported - Past Family History Mother Family Medical History: Coronary Artery Disease (CAD), Diabetes Mellitus Additional Family Medical History / Comment(s): . Father Family Medical History: No Reported History Additional Family Medical History / Comment(s): Father is healthy Medications and Allergies Home Medications Medication Instructions Recorded Confirmed Type lamoTRIgine [LaMICtal] 200 mg PO BID 09/26/18 04/08/24 History Sertraline [Zoloft] 100 mg PO BID 03/22/22 04/08/24 History diazePAM [Valium] 10 mg PO HS 08/02/23 04/08/24 History Nitroglycerin Sl Tabs [Nitrostat] 0.4 mg SUBLINGUAL Q5M PRN #20 tab 02/08/24 04/08/24 Rx Atorvastatin [Lipitor] 80 mg PO HS 04/08/24 04/08/24 History Mupirocin 2% Oint [Bactroban 2% 1 applic TOPICAL DAILY PRN 04/08/24 04/08/24 History Oint] Allergies Allergy/AdvReac Type Severity Reaction Status Date / Time cephalexin [From Keflex] Allergy Rash/Hives Verified 04/08/24 17:54 codeine Allergy Rash/Hives Verified 04/08/24 17:54 erythromycin base Allergy Rash/Hives Verified 04/08/24 17:54 gadobutrol [From Gadavist] Allergy Anaphylaxis Verified 04/08/24 17:54 Gadolinium-Containing Allergy Anaphylaxis Verified 04/08/24 17:54 Contrast Medi iodine Allergy Anaphylaxis Verified 04/08/24 17:54 Penicillins Allergy Anaphylaxis Verified 04/08/24 17:54 vancomycin Allergy Anaphylaxis Verified 04/08/24 17:54 azithromycin AdvReac red face Verified 04/08/24 17:54 diphenhydramine AdvReac Confusion Verified 04/08/24 17:54 [From Benadryl] Physical Exam Vitals: Vital Signs Temp Pulse Pulse Resp BP BP Pulse Ox 04/10/24 15:50 97.9 F 68 18 151/64 96 04/10/24 12:00 97.8 F 59 L 18 171/79 98 04/10/24 08:00 97.6 F 54 L 18 152/73 97 04/10/24 04:00 97.7 F 61 16 118/69 97 04/09/24 23:13 97.8 F 64 16 149/76 96 04/09/24 20:03 97.4 F L 67 16 144/60 95 04/09/24 19:35 59 L 16 135/58 97 Intake and Output 04/10/24 04/10/24 04/10/24 06:59 14:59 22:59 Intake Total 180 Output Total 100 100 Balance -100 80 Intake: Oral 180 Output: Urine 100 100 Other: Voiding Method External Catheter External Catheter # Voids 1 # Bowel Movements 1 Weight 86.5 kg General: Well-developed, well-nourished, female, in no acute distress HEENT: NC/AT, external ears intact, hearing intact to conversational speech Cardiovascular: B/L calves are supple, nontender, no cords, without peripheral edema, no cardiac distress Respiratory: Even and unlabored breathing on RA Abdomen: Soft, nontender, nondistended Genitourinary: +purewick Musculoskeletal: ROM WFL EXCEPT: right hemiplegia Neurological: Alert. CN II-XII: Grossly intact, except decreased sensation to the right face. Speech is clear, fluent MMT: LUE SABD/HG/FABD/EE/EF 5/5 RUE 0/5 - flaccid LLE HF/KE/DF 5/5 RLE 0/5 flaccid/no tone Reflexes: Negative Beltran's B/L UE RUE Brachioradialiis/biceps - 0 LUE Brachioradialiis/biceps - 2 LLE +2 beats clonus RLE no clonus Coordination: Unable to complete FTN and HTS on right side due to hemiplegia Proprioception: decreased right great toe Sensation: Decreased sensation/numbness to right face; numbness/tingling to right fingers and toes; decreased sensation RUE and RLE; loss of sensation to dorsal aspect of right foot Skin: Skin intact where visible to head, neck, and bilateral upper and lower extremities EXCEPT: IV Psychiatric: Mood calm, cooperative Results CBC & Chem 7: 04/10/24 06:05 04/10/24 06:05 Labs: Abnormal Lab Results - Last 24 Hours (Table) 04/10/24 Range/Units 06:05 Carbon Dioxide 31 H (22-30) mmol/L BUN 37 H (7-17) mg/dL Creatinine 1.07 H (0.52-1.04) mg/dL Assessment and Plan Assessment: # Impaired gait and ADLs secondary to right-sided hemiplegia s/p TNK suspected CVA -Comprehensive therapies #Hx of conversion disorder -psych consult pending #Encephalopathy, improving #Hypertension urgency on admission, currently controlled #History of pseudoseizures #History of migraines #History of fibromyalgia #History of anxiety # Bowel/ Bladder: Nursing to monitor and report concerns if any. -04/10: currently reports unsure of when LBM was, denies abdominal pain/n/v # Diet -Per EMR # Skin/wound: Skin/Wound care to follow as needed # Pain Management -Tylenol 650 mg q6h prn, toradol 15 mg IVP q6h prn # DVT Prophylaxis: Defer to Ortho/IM management. # Comorbidities: moderate mitral regurgitation, valvular heart disease, CAD, HLD # Your medical dx and mgt Goals: Modified Independent mobility and ADLS both basic and advanced; increased functional mobility/strength; increased balance, safety, endurance. Improvement in medical issues through your care. Barriers: fall risk, weakness, hemiplegia Discharge recommendation: Patient is noted to be significantly below baseline function, would benefit from a structured inpatient rehab stay with 3 hours of therapy a day, 6-7 days a week with Physical Therapy, Occupational Therapy, and Speech Therapy. Patient has medical complexity requiring nursing services, close physician medical management, and interdisciplinary team approach for rehab. Patient is motivated, was previously independent with ADLs, and has good social support/supportive family. Patient seen and examined by Ita Ruvalcaba PA-C, note remotely prepped and scribed by Vernell GRAHAM Patient seen in coordination with Dr. Hicks. Thank you for consulting us in the care of this patient.
--- NOTE | 2024-04-10 19:33 | P.PN ---
Subjective This is a pleasant 58 years old female with past medical history of multiple medical problems as below. Presents because of confusion the right side weakness Patient states that she was downstairs and then she made 3 girls from the building which they asked her if she was doing okay, at that time she could not tell where she is at. Also she told his nurse " who are you " which looks unusual for the pt because the patient. can realize she knew them from before, and then one of the neighbors was passing by and he called her dad who came down stairs and then he took her to their apartment up, patient started feeling numbness and weakness in both right and lower extremities and he called the ambulance for her. Patient states that she could having numbness in her right middle 3 fingers on and off for about a year but not the whole upper extremities or lower extremities Also patient stating that she has severe frontal headache and around her eyes which is now significantly improved with this is only slight. She denies dizziness, no double vision no, no slurred speech. She denies chest pain or dyspnea, no specific GI/ symptom She denies smoking alcohol illicit drugs She denies depression, anxiety, hallucination either visual or auditory. However patient states she is under a lot of stressors and manage with her son, she did not spend the [place] near with him although she wanted to. Also she has not talking to him yet Patient states that she used to follow-up with Dr. Rodriguez the female neurologist and with Dr. Thomas but currently switched to another neurologist in [place] she has appointment for cognitive test this month, as she has memory problems She is hemodynamically stable, blood pressure was elevated on admission She is afebrile Labs unremarkable with CBC, BMP, LFT, troponin CT of the brain is negative for acute infarction CTA of the head and neck is also negative for acute process Chest x-ray showing no acute cardiopulmonary process 04/10/2024 Patient is awake and alert Still complaining from right side hemiplegia. Patient states that home conditions that she lives with parents who are 87 and 90 years old therefore IPR consult was requested for possible rehab therapy I discussed the case with the neurologist today although there was suspicion of conversion syndrome however we will still need to rule out acute stroke which is in the differential diagnosis, of note the patient received TNKase therapy in the emergency room with not even small improvement this next the case go against the acute stroke diagnosis but not excluded it entirely. Therefore I agree with obtaining MRI of the brain. Objective - Vital Signs Vital signs: Vital Signs Temp 97.9 F 04/10/24 15:50 Pulse 68 04/10/24 15:50 Resp 18 04/10/24 15:50 BP 151/64 04/10/24 15:50 Pulse Ox 96 04/10/24 15:50 FiO2 Intake & Output 04/10/24 04/10/24 04/11/24 06:59 18:59 06:59 Intake Total 240 180 Output Total 200 100 Balance 40 80 Weight 86.5 kg Intake: Oral 240 180 Output: Urine 200 100 Other: Voiding Method External Catheter External Catheter # Voids 1 # Bowel Movements 1 - Exam -GENERAL: The patient is alert and oriented x3, not in any acute distress. Well developed, well nourished. Obese HEENT: Pupils are round and equally reacting to light. EOMI. No scleral icterus. No conjunctival pallor. Normocephalic, atraumatic. No pharyngeal erythema. No thyromegaly. CARDIOVASCULAR: S1 and S2 present. No murmurs, rubs, or gallops. PULMONARY: Chest is clear to auscultation, no wheezing , no crackles. ABDOMEN: Soft, nontender, nondistended, normoactive bowel sounds. No palpable organomegaly. MUSCULOSKELETAL: No joint swelling or deformity. EXTREMITIES: No cyanosis, clubbing, or pedal edema. -NEUROLOGICAL: Cranial nerves are grossly intact. Severe right hemiplegia SKIN: No rashes. no petechiae. - Labs CBC & Chem 7: 04/10/24 06:05 04/10/24 06:05 Labs: Abnormal Lab Results - Last 24 Hours (Table) 04/10/24 Range/Units 06:05 Carbon Dioxide 31 H (22-30) mmol/L BUN 37 H (7-17) mg/dL Creatinine 1.07 H (0.52-1.04) mg/dL Assessment and Plan Assessment: Acute confusion associated with right side weakness and numbness, status post TNKase, and the emergency room. Acute stroke was a concern, differential diagnosis is conversion disorder Encephalopathy, secondary to above, currently improved. This is on the top of her memory problems Possible elements of hypertension urgency on admission, currently controlled History of pseudoseizure History of migraine History of fibromyalgia moderate mitral regurgitation Plan: Continue monitoring the patient on select unit Obtaining MRI of the brain to rule out acute stroke versus other diagnoses Neurology team consult Leather Fitter consult Pulmonary/critical team consult on the case already evaluated the patient Continue Zoloft Continue with Lamictal GI prophylaxis: Pepcid DVT prophylaxis aspirin 325 mg and mechanical Prognosis guarded
--- NOTE | 2024-04-10 20:47 | P.PN ---
Subjective Progress Note Date: 04/10/24 Patient is a 58-year-old female with past medical history significant for pseudoseizure, migraines, fibromyalgia, hyperlipidemia, colon cancer. Of note, patient thought to have CVA/TIA back in 2021 did receive tPA during that time. Her presenting symptoms were acute right upper and lower extremity paralysis. Follow-up brain MRI during that time did not show any evidence of infarct. 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 She was evaluated by psychiatry. She does follow with an outpatient neurologist april Edwards. Patient returns the emergency department yesterday afternoon with acute right- sided weakness involving the right upper and lower extremities. Apparently live s in a community setting, noted with altered gait and dragging her right foot. Also associated headache. Blood pressure was noted to be severely hypertensive on arrival, 203/85 mmHg. She was transiently on Cardene drip. The symptoms reportedly started at 1 PM yesterday afternoon. EMS was called immediately. Brain CT did not show any acute intercerebral hemorrhage or mass effect. Brain CTA did not show any evidence of dissecting cervical internal carotid arteries or vertebral arteries. No evidence of significant flow-limiting stenosis at the carotid bifurcations. No evidence of intracranial high-grade stenosis or intercranial aneurysm. She was given dose of TNK while in the ER. CBC: WC count 7.9, hemoglobin 12.3, hematocrit 38.4, platelets 252. Coagulation profile includes a PT of 10, INR of 0.9, APTT of 22.6. CMP: Sodium 141, potassium 4.3, chloride 105, serum bicarb 27, BUN 24, creatinine 0.92, glucose 108. LFTs includes a AST of 32, ALT of 38, ALP 188. Troponin less than 0.012. EKG: Sinus rhythm, IVCD, rate 71 bpm, no obvious acute ischemic changes. Patient is current ly being evaluated in the emergency department, trauma bay 2. She continues to have right-sided hemiparesis. She states that the upper and lower extremities are numb with pins/needles paresthesias. No seizure activity. States that she has "stress" seizures. She takes Lamictal and valium on an outpatient basis peer denies missing any doses. Current vitals: 98 F, heart rate 75 bpm, blood pressure 154/88 mmHg, SpO2 is 99% on room air oxygen. 04/10/2024, the patient is awake and alert. Nevertheless, clinically unchanged and the patient continues to have right-sided hemiplegia. She is able to wiggle her toes. Unable to move her arm and right lower extremity. There is a concern for a convergent syndrome as the patient's workup has been negative including a repeat CAT scan of the brain that was obtained within 24 hours after the TNK administration that showed no significant abnormalities. Neurologist on the case. Meanwhile, the patient has been kept on aspirin 325 mg p.o. daily. Cardiac rhythm remains sinus. No difficulties in swallowing. No new onset neurological deficits for now. Noted the patient has history of conversion disorder and psychiatric consultation was also requested. No active pulmonary issues for now. No critical care issues. The patient was not present 6.5 with a hemoglobin of 11.5 and a platelet count of 238. BUN is 37 with a creatinine of 1.07 and sodium levels at 140. Objective - Vital Signs Vital signs: Vital Signs Temp 97.6 F 04/10/24 08:00 Pulse 54 L 04/10/24 08:00 Resp 18 04/10/24 08:00 BP 152/73 04/10/24 08:00 Pulse Ox 97 04/10/24 08:00 FiO2 Intake & Output 04/09/24 04/10/24 04/10/24 18:59 06:59 18:59 Intake Total 240 Output Total 200 Balance 40 Weight 86.5 kg Intake: Oral 240 Output: Urine 200 Other: Voiding Method External Catheter - Exam GENERAL EXAM: Alert, 58-year-old female, right-sided hemiplegia, comfortable in no apparent distress. HEAD: Normocephalic and atraumatic EYES: Normal reaction of pupils, equal size. NOSE: Clear with pink turbinates. THROAT: No erythema or exudates. NECK: No masses, no JVD. CHEST: No chest wall deformity. LUNGS: Equal air entry with no crackles, wheeze, rhonchi or dullness. On room air. No conversational dyspnea or accessory muscle use.. CVS: S1 and S2 normal with no audible murmur, regular rhythm. No extra heart sounds ABDOMEN: No hepatosplenomegaly, active bowel sounds, no guarding or rigidity. SPINE: No scoliosis or deformity SKIN: No rashes CENTRAL NERVOUS SYSTEM: Alert and oriented x 3, no dysarthria or dysphasia, flattening of the right nasolabial fold, tongue protrudes midline, persistent right upper and lower extremity hemiplegia. No ataxia outside of weakness. Bilateral lower extremity patellar DTRs 2+ bilaterally. EXTREMITIES: There is no peripheral edema, clubbing, or cyanosis. Peripheral pulses are intact. Right lower extremity does appear mildly atrophied. - Labs CBC & Chem 7: 04/10/24 06:05 04/10/24 06:05 Labs: Abnormal Lab Results - Last 24 Hours (Table) 04/10/24 Range/Units 06:05 Carbon Dioxide 31 H (22-30) mmol/L BUN 37 H (7-17) mg/dL Creatinine 1.07 H (0.52-1.04) mg/dL Assessment and Plan Assessment: Recurrent right-sided hemiplegia, thought to have acute CVA/TIA, a dose of TNK was given in the ED, and follow-up 24-hour CAT scan of the brain showed no acute abnormalities. The patient continues to have motor deficits in the right sided hemiplegia. Neurologist on the case. Consider the possibility of conversion syndrome. Hypertensive urgency, improved and the patient's BP is currently inactive and stable History of coronary artery disease, heart catheterization done February, showing mild nonobstructive CAD and mildly elevated left-sided filling pressures. History of valvular heart disease and mild to moderate mitral regurgitation History of hyperlipidemia History of pseudoseizures History of migraines History of fibromyalgia Plan: Continue aspirin Monitor hemodynamics Follow-up CAT scan of the brain was reviewed Continue statin Echocardiogram from 02/07/2024 was essentially within normal limits with mild to moderate mitral regurgitation. Cardiac stress test on 02/07/2024 showed small areas of stress-induced ischemic changes in the inferior lateral wall and apex, reversible and a previous cardiac catheterization on 08/05/2023 showed mild to moderate nonobstructive coronary ar ryan disease, and no interventions were done back then. She has had a previous 30-day event recorder placed and her cardiac rhythm was in sinus with interventricular conduction delay of a LBB type. No episodes of atrial fibrillation. Neurology is on the case Psychiatric consultation was also requested.
[2024-04-11] MEDS: ASPIRIN 325 MG TAB PO SCH (09:04)
[2024-04-11] MEDS: FAMOTIDINE 20 MG TAB PO SCH (09:04)
--- NOTE | 2024-04-11 10:30 | P.PN ---
Subjective Progress Note Date: 04/10/24 Patient was seen for a follow-up. Multiple family members were present. Patient continues to be weak on the right side of the body, only can wiggle her toes and fingers. Patient states that sometimes her right leg jerks spontaneously. Patient complains of headache. Patient also complains of intermittent aura consisting of part of the vision goes away like part of the cervical pointing to the left lower visual field region. Patient has lot of headaches, chronic daily headaches, going on for "months". She gets this visual aura about 3 times a week and last for about 10 minutes. Patient is not sure if these aura started after she stopped taking antiplatelet medication. Objective - Vital Signs Vital signs: Vital Signs Temp 97.9 F 04/10/24 15:50 Pulse 68 04/10/24 15:50 Resp 18 04/10/24 15:50 BP 151/64 04/10/24 15:50 Pulse Ox 96 04/10/24 15:50 FiO2 Intake & Output 04/09/24 04/10/24 04/10/24 18:59 06:59 18:59 Intake Total 240 180 Output Total 200 100 Balance 40 80 Weight 86.5 kg Intake: Oral 240 180 Output: Urine 200 100 Other: Voiding Method External Catheter External Catheter # Voids 1 # Bowel Movements 1 - Exam Patient's mental status, speech and language functions are normal. Cranial nerves are normal. Patient continues to be hemiplegic involving the right arm and right leg. She can only wiggle the fingers and the toes. Patient has complete numbness of the right side. - Labs CBC & Chem 7: 04/10/24 06:05 04/10/24 06:05 Labs: Abnormal Lab Results - Last 24 Hours (Table) 04/10/24 Range/Units 06:05 Carbon Dioxide 31 H (22-30) mmol/L BUN 37 H (7-17) mg/dL Creatinine 1.07 H (0.52-1.04) mg/dL Assessment and Plan Assessment: * Acute onset of right-sided weakness, status post TNK. At present patient able to wiggle her fingers and toes, but still very weak on the right side. Suspect conversion disorder, as patient has presented in a similar pattern on 03/16/2022 and 02/14/2020. She received tPA on 05/19/2021, with subsequent normal MRI brain. Hemiplegic migraine also in the differential. * Hypertension * History of pseudoseizures * History of migraines * History of fibromyalgia Plan: Patient continues to be weak with right hemiparesis. Check MRI of the brain CTA of the head and neck revealed no evidence of dissection of the cervical internal carotid arteries or vertebral arteries. No evidence of significant stenosis at the carotid bifurcations. No evidence of intracranial high-grade stenosis or intracranial aneurysm. 2D echo 02/07/2024 revealed normal LV function with EF 55 to 60%. No obvious regional wall motion abnormalities. Left atrium severely increased in volume. Mildly increased left atrial area. Mild to moderate MR, aortic valve sclerosis. Lipid panel with cholesterol 246, LDL 152, HDL 56 and triglycerides 187. Continue Lipitor 80 mg daily. Lipids are poorly controlled despite being on Lipitor. Consider starting newer agents to control hyperlipidemia. Hemoglobin A1c. Post TNK protocol to follow. Continue neurochecks. 24 hours post TNK CAT scan showed no acute process. Patient started on aspirin 325 mg daily. PT OT, speech therapy Physical medicine and rehab consult appreciated. Recommending inpatient rehab. DVT prophylaxis: Start heparin 5000 units subcu every 12 hours.
--- NOTE | 2024-04-11 10:40 | P.PN ---
Subjective This is a pleasant 58 years old female with past medical history of multiple medical problems as below. Presents because of confusion the right side weakness Patient states that she was downstairs and then she made 3 girls from the building which they asked her if she was doing okay, at that time she could not tell where she is at. Also she told his nurse " who are you " which looks unusual for the pt because the patient. can realize she knew them from before, and then one of the neighbors was passing by and he called her dad who came down stairs and then he took her to their apartment up, patient started feeling numbness and weakness in both right and lower extremities and he called the ambulance for her. Patient states that she could having numbness in her right middle 3 fingers on and off for about a year but not the whole upper extremities or lower extremities Also patient stating that she has severe frontal headache and around her eyes which is now significantly improved with this is only slight. She denies dizziness, no double vision no, no slurred speech. She denies chest pain or dyspnea, no specific GI/ symptom She denies smoking alcohol illicit drugs She denies depression, anxiety, hallucination either visual or auditory. However patient states she is under a lot of stressors and manage with her son, she did not spend the [place] near with him although she wanted to. Also she has not talking to him yet Patient states that she used to follow-up with Dr. Rodriguez the female neurologist and with Dr. Thomas but currently switched to another neurologist in [place] she has appointment for cognitive test this month, as she has memory problems She is hemodynamically stable, blood pressure was elevated on admission She is afebrile Labs unremarkable with CBC, BMP, LFT, troponin CT of the brain is negative for acute infarction CTA of the head and neck is also negative for acute process Chest x-ray showing no acute cardiopulmonary process 04/10/2024 Patient is awake and alert Still complaining from right side hemiplegia. Patient states that home conditions that she lives with parents who are 87 and 90 years old therefore IPR consult was requested for possible rehab therapy I discussed the case with the neurologist today although there was suspicion of conversion syndrome however we will still need to rule out acute stroke which is in the differential diagnosis, of note the patient received TNKase therapy in the emergency room with not even small improvement this next the case go against the acute stroke diagnosis but not excluded it entirely. Therefore I agree with obtaining MRI of the brain. 04/11 Patient still have right side weakness same since admission No other new complaint and she is doing well fully awake and oriented Pending MRI of the brain after that patient can be considered for discharge to inpatient rehab Monitor creatinine Possible discharge soon Objective - Vital Signs Vital signs: Vital Signs Temp 97.3 F L 04/11/24 03:55 Pulse 57 L 04/11/24 08:59 Resp 16 04/11/24 08:59 BP 144/68 04/11/24 08:59 Pulse Ox 100 04/11/24 08:59 FiO2 Intake & Output 04/10/24 04/11/24 04/11/24 18:59 06:59 18:59 Intake Total 180 120 Output Total 100 600 Balance 80 -480 Weight 86.5 kg Intake: Oral 180 120 Output: Urine 100 600 Other: Voiding Method External Catheter External Catheter # Voids 1 # Bowel Movements 1 - Exam -GENERAL: The patient is alert and oriented x3, not in any acute distress. Well developed, well nourished. Obese HEENT: Pupils are round and equally reacting to light. EOMI. No scleral icterus. No conjunctival pallor. Normocephalic, atraumatic. No pharyngeal erythema. No thyromegaly. CARDIOVASCULAR: S1 and S2 present. No murmurs, rubs, or gallops. PULMONARY: Chest is clear to auscultation, no wheezing , no crackles. ABDOMEN: Soft, nontender, nondistended, normoactive bowel sounds. No palpable organomegaly. MUSCULOSKELETAL: No joint swelling or deformity. EXTREMITIES: No cyanosis, clubbing, or pedal edema. -NEUROLOGICAL: Cranial nerves are grossly intact. Severe right hemiplegia SKIN: No rashes. no petechiae. - Labs CBC & Chem 7: 04/10/24 06:05 04/10/24 06:05 Assessment and Plan Assessment: Acute confusion associated with right side weakness and numbness, status post TNKase, and the emergency room. Acute stroke was a concern, differential diagnosis is conversion disorder Encephalopathy, secondary to above, currently improved. This is on the top of her memory problems Possible elements of hypertension urgency on admission, currently controlled History of pseudoseizure History of migraine History of fibromyalgia moderate mitral regurgitation Plan: Continue monitoring the patient on select unit Obtaining MRI of the brain to rule out acute stroke versus other diagnoses Neurology team consult Child'S Nurse consult Pulmonary/critical team consult on the case already evaluated the patient Continue Zoloft Continue with Lamictal GI prophylaxis: Pepcid DVT prophylaxis aspirin 325 mg and mechanical Prognosis guarded
[2024-04-11 11:30] LABS: African American GFR (CKD) 72 (>60 ml/min/1.73 sqM); Anion Gap 6 mmol/L; Blood Urea Nitrogen 36 mg/dL (7-17); Calcium 9.4 mg/dL (8.4-10.2); Carbon Dioxide 28 mmol/L (22-30); Chloride 106 mmol/L (98-107); Glucose 94 mg/dL (74-99); Non-African American GFR(CKD) 63 (>60 ml/min/1.73 sqM); Potassium 4.7 mmol/L (3.5-5.1); Sodium 140 mmol/L (137-145)
--- NOTE | 2024-04-11 13:16 | P.PN ---
Subjective Progress Note Date: 04/11/24 Patient is a 58-year-old female with past medical history significant for pseudoseizure, migraines, fibromyalgia, hyperlipidemia, colon cancer. Of note, patient thought to have CVA/TIA back in 2021 did receive tPA during that time. Her presenting symptoms were acute right upper and lower extremity paralysis. Follow-up brain MRI during that time did not show any evidence of infarct. 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 She was evaluated by psychiatry. She does follow with an outpatient neurologist april Edwards. Patient returns the emergency department yesterday afternoon with acute right- sided weakness involving the right upper and lower extremities. Apparently live s in a community setting, noted with altered gait and dragging her right foot. Also associated headache. Blood pressure was noted to be severely hypertensive on arrival, 203/85 mmHg. She was transiently on Cardene drip. The symptoms reportedly started at 1 PM yesterday afternoon. EMS was called immediately. Brain CT did not show any acute intercerebral hemorrhage or mass effect. Brain CTA did not show any evidence of dissecting cervical internal carotid arteries or vertebral arteries. No evidence of significant flow-limiting stenosis at the carotid bifurcations. No evidence of intracranial high-grade stenosis or intercranial aneurysm. She was given dose of TNK while in the ER. CBC: WC count 7.9, hemoglobin 12.3, hematocrit 38.4, platelets 252. Coagulation profile includes a PT of 10, INR of 0.9, APTT of 22.6. CMP: Sodium 141, potassium 4.3, chloride 105, serum bicarb 27, BUN 24, creatinine 0.92, glucose 108. LFTs includes a AST of 32, ALT of 38, ALP 188. Troponin less than 0.012. EKG: Sinus rhythm, IVCD, rate 71 bpm, no obvious acute ischemic changes. Patient is current ly being evaluated in the emergency department, trauma bay 2. She continues to have right-sided hemiparesis. She states that the upper and lower extremities are numb with pins/needles paresthesias. No seizure activity. States that she has "stress" seizures. She takes Lamictal and valium on an outpatient basis peer denies missing any doses. Current vitals: 98 F, heart rate 75 bpm, blood pressure 154/88 mmHg, SpO2 is 99% on room air oxygen. 04/10/2024, the patient is awake and alert. Nevertheless, clinically unchanged and the patient continues to have right-sided hemiplegia. She is able to wiggle her toes. Unable to move her arm and right lower extremity. There is a concern for a convergent syndrome as the patient's workup has been negative including a repeat CAT scan of the brain that was obtained within 24 hours after the TNK administration that showed no significant abnormalities. Neurologist on the case. Meanwhile, the patient has been kept on aspirin 325 mg p.o. daily. Cardiac rhythm remains sinus. No difficulties in swallowing. No new onset neurological deficits for now. Noted the patient has history of conversion disorder and psychiatric consultation was also requested. No active pulmonary issues for now. No critical care issues. The patient was not present 6.5 with a hemoglobin of 11.5 and a platelet count of 238. BUN is 37 with a creatinine of 1.07 and sodium levels at 140. 04/11/2024, neurologically unchanged and the patient continues to have right-sided hemiplegia. She has consented to go to a rehabilitation facility. Hemodynamically stable. Blood pressure is stable. No cardiac arrhythmias have been noted. She remains on aspirin. Adequate swallow. Awake and alert and adequate mentation.Electrolytes from today are all within normal limits. BUN 36 with a creatinine of 1. Sodium is at 140, potassium is at 4.7, bicarb is at 28. The patient is on Lipitor 80 mg p.o. daily, aspirin 325 mg p.o. daily, heparin subcu for DVT prophylaxis. She is also on Zoloft. Objective - Vital Signs Vital signs: Vital Signs Temp 97.3 F L 04/11/24 03:55 Pulse 57 L 04/11/24 08:59 Resp 16 04/11/24 08:59 BP 144/68 04/11/24 08:59 Pulse Ox 100 04/11/24 08:59 FiO2 Intake & Output 04/10/24 04/11/24 04/11/24 18:59 06:59 18:59 Intake Total 180 120 Output Total 100 600 Balance 80 -480 Weight 86.5 kg Intake: Oral 180 120 Output: Urine 100 600 Other: Voiding Method External Catheter External Catheter External Catheter # Voids 1 # Bowel Movements 1 - Exam GENERAL EXAM: Alert, 58-year-old female, right-sided hemiplegia, comfortable in no apparent distress. HEAD: Normocephalic and atraumatic EYES: Normal reaction of pupils, equal size. NOSE: Clear with pink turbinates. THROAT: No erythema or exudates. NECK: No masses, no JVD. CHEST: No chest wall deformity. LUNGS: Equal air entry with no crackles, wheeze, rhonchi or dullness. On room air. No conversational dyspnea or accessory muscle use.. CVS: S1 and S2 normal with no audible murmur, regular rhythm. No extra heart sounds ABDOMEN: No hepatosplenomegaly, active bowel sounds, no guarding or rigidity. SPINE: No scoliosis or deformity SKIN: No rashes CENTRAL NERVOUS SYSTEM: Alert and oriented x 3, no dysarthria or dysphasia, flattening of the right nasolabial fold, tongue protrudes midline, persistent right upper and lower extremity hemiplegia. No ataxia outside of weakness. Bilateral lower extremity patellar DTRs 2+ bilaterally. EXTREMITIES: There is no peripheral edema, clubbing, or cyanosis. Peripheral pulses are intact. Right lower extremity does appear mildly atrophied. - Labs CBC & Chem 7: 04/10/24 06:05 04/11/24 10:50 Assessment and Plan Assessment: Recurrent right-sided hemiplegia, thought to have acute CVA/TIA, a dose of TNK was given in the ED, and follow-up 24-hour CAT scan of the brain showed no acute abnormalities. The patient continues to have motor deficits in the right sided hemiplegia. Neurologist on the case. Consider the possibility of conversion syndrome. Hypertensive urgency, improved and the patient's BP is currently inactive and stable History of coronary artery disease, heart catheterization done February, showing mild nonobstructive CAD and mildly elevated left-sided filling pressures. History of valvular heart disease and mild to moderate mitral regurgitation History of hyperlipidemia History of pseudoseizures History of migraines History of fibromyalgia Plan: Neurologically unchanged Patient is going to need rehabilitation Continue aspirin Monitor hemodynamics Follow-up CAT scan of the brain was reviewed Continue statin Echocardiogram from 02/07/2024 was essentially within normal limits with mild to moderate mitral regurgitation. Cardiac stress test on 02/07/2024 showed small areas of stress-induced ischemic changes in the inferior lateral wall and apex, reversible and a previous cardiac catheterization on 08/05/2023 showed mild to moderate nonobstructive coronary artery disease, and no interventions were done back then. She has had a previous 30-day event recorder placed and her cardiac rhythm was in sinus with interventricular conduction delay of a LBB type. No episodes of atrial fibrillation. Neurology is on the case Psychiatric consultation was also requested. Will continue to follow
[2024-04-11] MEDS: HEPARIN SODIUM,PORCINE 5,000 UNIT/ML 1 ML VIAL SQ SCH (17:21)
--- NOTE | 2024-04-11 23:12 | EEG ---
ELECTROENCEPHALOGRAM REPORT PREAMBLE: This is a 58-year-old female with recurrent aura. She also has migraines, pseudoseizures. This study is performed to evaluate for any epileptiform activity. EEG FINDINGS: This is a 21-channel digital EEG recorded with video component, utilizing 10/20 international system with referential and bipolar montages. Background consists of well-developed, moderately well regulated, mixed frequencies of 9 to 10 hertz alpha, intermixed with low-voltage fast frequency beta activity seen in bihemispheric region. Background is posterior dominant and is reactive to eye opening and closing. Photic driving response was not seen. Drowsiness was seen with appearance of bilaterally symmetric some theta frequency rhythm. However, deeper stages of sleep were not seen. Some myogenic activity intermittently was seen, during which some head or eye movement was noticed on the video section. No definitive epileptiform activity was seen. IMPRESSION: This is a normal awake and drowsy EEG. No focal, lateralized, or epileptiform activity was seen. Some sporadic paroxysmal high-amplitude generalized fast frequency activity was seen lasting for 1 to 2 seconds. Some of them were associated with head or eye movement. This is of uncertain significance. If your suspicion for seizures is high, suggest prolonged, sleep-deprived EEG. MMODL / IJN: [id number] /
[2024-04-12] MEDS: ALPRAZolam 0.5 MG TAB PO STA (01:17)
--- NOTE | 2024-04-12 13:28 | P.PN ---
Subjective This is a pleasant 58 years old female with past medical history of multiple medical problems as below. Presents because of confusion the right side weakness Patient states that she was downstairs and then she made 3 girls from the building which they asked her if she was doing okay, at that time she could not tell where she is at. Also she told his nurse " who are you " which looks unusual for the pt because the patient. can realize she knew them from before, and then one of the neighbors was passing by and he called her dad who came down stairs and then he took her to their apartment up, patient started feeling numbness and weakness in both right and lower extremities and he called the ambulance for her. Patient states that she could having numbness in her right middle 3 fingers on and off for about a year but not the whole upper extremities or lower extremities Also patient stating that she has severe frontal headache and around her eyes which is now significantly improved with this is only slight. She denies dizziness, no double vision no, no slurred speech. She denies chest pain or dyspnea, no specific GI/ symptom She denies smoking alcohol illicit drugs She denies depression, anxiety, hallucination either visual or auditory. However patient states she is under a lot of stressors and manage with her son, she did not spend the [place] near with him although she wanted to. Also she has not talking to him yet Patient states that she used to follow-up with Dr. Rodriguez the female neurologist and with Dr. Thomas but currently switched to another neurologist in [place] she has appointment for cognitive test this month, as she has memory problems She is hemodynamically stable, blood pressure was elevated on admission She is afebrile Labs unremarkable with CBC, BMP, LFT, troponin CT of the brain is negative for acute infarction CTA of the head and neck is also negative for acute process Chest x-ray showing no acute cardiopulmonary process 04/10/2024 Patient is awake and alert Still complaining from right side hemiplegia. Patient states that home conditions that she lives with parents who are 87 and 90 years old therefore IPR consult was requested for possible rehab therapy I discussed the case with the neurologist today although there was suspicion of conversion syndrome however we will still need to rule out acute stroke which is in the differential diagnosis, of note the patient received TNKase therapy in the emergency room with not even small improvement this next the case go against the acute stroke diagnosis but not excluded it entirely. Therefore I agree with obtaining MRI of the brain. 04/11 Patient still have right side weakness same since admission No other new complaint and she is doing well fully awake and oriented Pending MRI of the brain after that patient can be considered for discharge to inpatient rehab Monitor creatinine Possible discharge soon 04/12 Patient with right hemiplegia No other new complaint MRI of the brain is pending, mother is going to bring her pacemaker card to see if it is compatible Patient will require inpatient rehab upon discharge Patient can benefit from psych evaluation which can be done as an outpatient once organic causes ruled out Objective - Vital Signs Vital signs: Vital Signs Temp 97.9 F 04/12/24 07:44 Pulse 59 L 04/12/24 11:25 Resp 16 04/12/24 11:25 BP 144/66 04/12/24 11:25 Pulse Ox 97 04/12/24 11:25 FiO2 Intake & Output 04/11/24 04/12/24 04/12/24 18:59 06:59 18:59 Intake Total 180 30 Balance 180 30 Weight 83.5 kg Intake: IV 30 Invasive Line 1 10 Invasive Line 2 10 Invasive Line 3 10 Oral 180 Other: Voiding Method External Catheter Bedside Commode Bedside Commode External Catheter External Catheter # Voids 2 1 1 # Bowel Movements 1 1 - Exam -GENERAL: The patient is alert and oriented x3, not in any acute distress. Well developed, well nourished. Obese HEENT: Pupils are round and equally reacting to light. EOMI. No scleral icterus. No conjunctival pallor. Normocephalic, atraumatic. No pharyngeal erythema. No t hyromegaly. CARDIOVASCULAR: S1 and S2 present. No murmurs, rubs, or gallops. PULMONARY: Chest is clear to auscultation, no wheezing , no crackles. ABDOMEN: Soft, nontender, nondistended, normoactive bowel sounds. No palpable organomegaly. MUSCULOSKELETAL: No joint swelling or deformity. EXTREMITIES: No cyanosis, clubbing, or pedal edema. -NEUROLOGICAL: Cranial nerves are grossly intact. Severe right hemiplegia SKIN: No rashes. no petechiae. - Labs CBC & Chem 7: 04/10/24 06:05 04/11/24 10:50 Assessment and Plan Assessment: Acute confusion associated with right side weakness and numbness, status post T NKase, and the emergency room. Acute stroke was a concern, differential diagnosis is conversion disorder Encephalopathy, secondary to above, currently improved. This is on the top of her memory problems Possible elements of hypertension urgency on admission, currently controlled History of pseudoseizure History of migraine History of fibromyalgia moderate mitral regurgitation Plan: Continue monitoring the patient on select unit Obtaining MRI of the brain to rule out acute stroke versus other diagnoses Neurology team consult Welding Process Engineer consult Pulmonary/critical team consult on the case already evaluated the patient Continue Zoloft Continue with Lamictal GI prophylaxis: Pepcid DVT prophylaxis aspirin 325 mg and mechanical Prognosis guarded
--- NOTE | 2024-04-12 16:43 | P.PN ---
Subjective Progress Note Date: 04/12/24 Patient is a 58-year-old female with past medical history significant for pseudoseizure, migraines, fibromyalgia, hyperlipidemia, colon cancer. Of note, patient thought to have CVA/TIA back in 2021 did receive tPA during that time. Her presenting symptoms were acute right upper and lower extremity paralysis. Follow-up brain MRI during that time did not show any evidence of infarct. 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 She was evaluated by psychiatry. She does follow with an outpatient neurologist april Edwards. Patient returns the emergency department yesterday afternoon with acute right- sided weakness involving the right upper and lower extremities. Apparently live s in a community setting, noted with altered gait and dragging her right foot. Also associated headache. Blood pressure was noted to be severely hypertensive on arrival, 203/85 mmHg. She was transiently on Cardene drip. The symptoms reportedly started at 1 PM yesterday afternoon. EMS was called immediately. Brain CT did not show any acute intercerebral hemorrhage or mass effect. Brain CTA did not show any evidence of dissecting cervical internal carotid arteries or vertebral arteries. No evidence of significant flow-limiting stenosis at the carotid bifurcations. No evidence of intracranial high-grade stenosis or intercranial aneurysm. She was given dose of TNK while in the ER. CBC: WC count 7.9, hemoglobin 12.3, hematocrit 38.4, platelets 252. Coagulation profile includes a PT of 10, INR of 0.9, APTT of 22.6. CMP: Sodium 141, potassium 4.3, chloride 105, serum bicarb 27, BUN 24, creatinine 0.92, glucose 108. LFTs includes a AST of 32, ALT of 38, ALP 188. Troponin less than 0.012. EKG: Sinus rhythm, IVCD, rate 71 bpm, no obvious acute ischemic changes. Patient is current ly being evaluated in the emergency department, trauma bay 2. She continues to have right-sided hemiparesis. She states that the upper and lower extremities are numb with pins/needles paresthesias. No seizure activity. States that she has "stress" seizures. She takes Lamictal and valium on an outpatient basis peer denies missing any doses. Current vitals: 98 F, heart rate 75 bpm, blood pressure 154/88 mmHg, SpO2 is 99% on room air oxygen. 04/10/2024, the patient is awake and alert. Nevertheless, clinically unchanged and the patient continues to have right-sided hemiplegia. She is able to wiggle her toes. Unable to move her arm and right lower extremity. There is a concern for a convergent syndrome as the patient's workup has been negative including a repeat CAT scan of the brain that was obtained within 24 hours after the TNK administration that showed no significant abnormalities. Neurologist on the case. Meanwhile, the patient has been kept on aspirin 325 mg p.o. daily. Cardiac rhythm remains sinus. No difficulties in swallowing. No new onset neurological deficits for now. Noted the patient has history of conversion disorder and psychiatric consultation was also requested. No active pulmonary issues for now. No critical care issues. The patient was not present 6.5 with a hemoglobin of 11.5 and a platelet count of 238. BUN is 37 with a creatinine of 1.07 and sodium levels at 140. 04/11/2024, neurologically unchanged and the patient continues to have right-sided hemiplegia. She has consented to go to a rehabilitation facility. Hemodynamically stable. Blood pressure is stable. No cardiac arrhythmias have been noted. She remains on aspirin. Adequate swallow. Awake and alert and adequate mentation.Electrolytes from today are all within normal limits. BUN 36 with a creatinine of 1. Sodium is at 140, potassium is at 4.7, bicarb is at 28. The patient is on Lipitor 80 mg p.o. daily, aspirin 325 mg p.o. daily, heparin subcu for DVT prophylaxis. She is also on Zoloft. 04/12/2024, the patient is being seen for a follow-up. Clinically unchanged. I was told that overnight, the patient was given a dose of Xanax and it was noted by the nurses aides that the patient was able to move her right upper extremity. As such, we are still suspecting the possibility of conversion syndrome. The patient has no new complaints. MRI of the brain can be considered at time of discharge. Otherwise, the patient remains hemodynamically stable. The white cell count was at 6.5. No new labs are available from today. Medications remain unchanged. The patient remains on room air oxygen. Objective - Vital Signs Vital signs: Vital Signs Temp 97.9 F 04/12/24 07:44 Pulse 62 04/12/24 07:44 Resp 16 04/12/24 07:44 BP 138/74 04/12/24 07:44 Pulse Ox 97 04/12/24 07:44 FiO2 Intake & Output 04/11/24 04/12/24 04/12/24 18:59 06:59 18:59 Intake Total 180 30 Balance 180 30 Weight 83.5 kg Intake: IV 30 Invasive Line 1 10 Invasive Line 2 10 Invasive Line 3 10 Oral 180 Other: Voiding Method External Catheter Bedside Commode Bedside Commode External Catheter External Catheter # Voids 2 1 # Bowel Movements 1 1 - Exam GENERAL EXAM: Alert, 58-year-old female, right-sided hemiplegia, comfortable in no apparent distress. HEAD: Normocephalic and atraumatic EYES: Normal reaction of pupils, equal size. NOSE: Clear with pink turbinates. THROAT: No erythema or exudates. NECK: No masses, no JVD. CHEST: No chest wall deformity. LUNGS: Equal air entry with no crackles, wheeze, rhonchi or dullness. On room air. No conversational dyspnea or accessory muscle use.. CVS: S1 and S2 normal with no audible murmur, regular rhythm. No extra heart sounds ABDOMEN: No hepatosplenomegaly, active bowel sounds, no guarding or rigidity. SPINE: No scoliosis or deformity SKIN: No rashes CENTRAL NERVOUS SYSTEM: Alert and oriented x 3, no dysarthria or dysphasia, flattening of the right nasolabial fold, tongue protrudes midline, persistent right upper and lower extremity hemiplegia. No ataxia outside of weakness. Bilateral lower extremity patellar DTRs 2+ bilaterally. EXTREMITIES: There is no peripheral edema, clubbing, or cyanosis. Peripheral pulses are intact. Right lower extremity does appear mildly atrophied. - Labs CBC & Chem 7: 04/10/24 06:05 04/11/24 10:50 Labs: Abnormal Lab Results - Last 24 Hours (Table) 04/11/24 Range/Units 10:50 BUN 36 H (7-17) mg/dL Assessment and Plan Assessment: Recurrent right-sided hemiplegia, thought to have acute CVA/TIA, a dose of TNK was given in the ED, and follow-up 24-hour CAT scan of the brain showed no acute abnormalities. The patient continues to have motor deficits in the right sided hemiplegia. Neurologist on the case. Consider the possibility of conversion syndrome. Hypertensive urgency, improved and the patient's BP is currently inactive and stable History of coronary artery disease, heart catheterization done February, showing mild nonobstructive CAD and mildly elevated left-sided filling pressures. History of valvular heart disease and mild to moderate mitral regurgitation History of hyperlipidemia History of pseudoseizures History of migraines History of fibromyalgia Plan: Neurologically unchanged, suspect conversion syndrome. MRI of the brain to be done on outpatient basis. Patient is going to need rehabilitation Continue aspirin Monitor hemodynamics Follow-up CAT scan of the brain was reviewed Continue statin Echocardiogram from 02/07/2024 was essentially within normal limits with mild to moderate mitral regurgitation. Cardiac stress test on 02/07/2024 showed small areas of stress-induced ischemic changes in the inferior lateral wall and apex, reversible and a previous cardiac catheterization on 08/05/2023 showed mild to moderate nonobstructive coronary artery disease, and no interventions were done back then. She has had a previous 30-day event recorder placed and her cardiac rhythm was in sinus with interventricular conduction delay of a LBB type. No episodes of atrial fibrillation. Neurology is on the case No active pulmonary critical care issues and pulmonary services will sign off the case.
--- NOTE | 2024-04-12 17:29 | P.PN ---
Subjective Progress Note Date: 04/11/24 Patient was seen for a follow-up. Patient appears very comfortable, pleasant, but on asking about headache, states it is 7-8/10. Patient states when she was 20 years of age, her great-grandmother , she got up and fell to the floor and had no feeling in both legs. Patient follows up with Dr. Harmon, neurologist at [facility]. Patient has an EEG scheduled for 7 days, starting at 8:45 AM on 05/21/2024. Objective - Vital Signs Vital signs: Vital Signs Temp 97.8 F 04/11/24 17:12 Pulse 64 04/11/24 17:12 Resp 16 04/11/24 17:12 BP 156/66 04/11/24 17:12 Pulse Ox 97 04/11/24 17:12 FiO2 Intake & Output 04/10/24 04/11/24 04/11/24 18:59 06:59 18:59 Intake Total 180 120 180 Output Total 100 600 Balance 80 -480 180 Weight 86.5 kg Intake: Oral 180 120 180 Output: Urine 100 600 Other: Voiding Method External Catheter External Catheter External Catheter # Voids 1 2 # Bowel Movements 1 1 - Exam Patient's mental status, speech and language functions are normal. Cranial nerves are normal. Patient continues to be hemiplegic involving the right arm and right leg. She can only wiggle the fingers and the toes. No improvement as compared to yesterday although she believes she is. Patient has complete numbness of the right side. - Labs CBC & Chem 7: 04/10/24 06:05 04/11/24 10:50 Labs: Abnormal Lab Results - Last 24 Hours (Table) 04/11/24 Range/Units 10:50 BUN 36 H (7-17) mg/dL Assessment and Plan Assessment: * Acute onset of right-sided weakness, status post TNK. At present patient able to wiggle her fingers and toes, but still very weak on the right side. Suspect conversion disorder, as patient has presented in a similar pattern on 03/16/2022 and 02/14/2020. She received tPA on 05/19/2021, with subsequent normal MRI brain. Hemiplegic migraine also in the differential. * Hypertension * History of pseudoseizures * History of migraines * History of fibromyalgia Plan: Patient continues to be weak with right hemiparesis. Await MRI of the brain. Patient has VNS wires still in place although the VNS has been removed itself. She needs MRI clearance before MRI. CTA of the head and neck revealed no evidence of dissection of the cervical internal carotid arteries or vertebral arteries. No evidence of significant stenosis at the carotid bifurcations. No evidence of intracranial high-grade stenosis or intracranial aneurysm. 2D echo 02/07/2024 revealed normal LV function with EF 55 to 60%. No obvious regional wall motion abnormalities. Left atrium severely increased in volume. Mildly increased left atrial area. Mild to moderate MR, aortic valve sclerosis. EEG was completed. It was a borderline abnormal EEG. Some sporadic paroxysmal high amplitude generalized fast frequency activity was seen lasting for 1 to 2 seconds. Some of them are associated with head or eye movement. There were transient right temporal sharp appearing waves also noticed with these spells. These did not appear clearly epileptiform and are of uncertain significance. Recommend further evaluation with a prolonged, sleep deprived EEG. Patient follows up with Dr. Harmon, neurologist at [facility]. Patient has an long-term EEG scheduled for 7 days, starting at 8:45 AM on 05/21/2024. Lipid panel with cholesterol 246, LDL 152, HDL 56 and triglycerides 187. Continue Lipitor 80 mg daily. Lipids are poorly controlled despite being on Li pitor. Consider starting newer agents to control hyperlipidemia. Hemoglobin A1c. Post TNK protocol to follow. Continue neurochecks. 24 hours post TNK CAT scan showed no acute process. Patient started on aspirin 325 mg daily. PT OT, speech therapy Physical medicine and rehab consult appreciated. Recommending inpatient rehab. DVT prophylaxis: Start heparin 5000 units subcu every 12 hours.
--- NOTE | 2024-04-12 17:35 | P.PN ---
Subjective Progress Note Date: 04/12/24 Patient was seen for a follow-up. Patient is sitting very comfortably in the recliner. Continues to have right-sided weakness. Awaiting MRI. Objective - Vital Signs Vital signs: Vital Signs Temp 98.1 F 04/12/24 15:36 Pulse 60 04/12/24 15:36 Resp 20 04/12/24 15:36 BP 154/68 04/12/24 15:36 Pulse Ox 98 04/12/24 15:36 FiO2 Intake & Output 04/11/24 04/12/24 04/12/24 18:59 06:59 18:59 Intake Total 180 30 120 Balance 180 30 120 Weight 83.5 kg Intake: IV 30 Invasive Line 1 10 Invasive Line 2 10 Invasive Line 3 10 Oral 180 120 Other: Voiding Method External Catheter Bedside Commode Bedside Commode External Catheter External Catheter # Voids 2 1 1 # Bowel Movements 1 1 - Exam Patient's mental status, speech and language functions are normal. Cranial nerves are normal. Patient continues to be hemiplegic involving the right arm and right leg. Patient able to wiggle her hand and right foot better, and able to move some proximally in these extremities as well. Still not antigravity yet. Patient has complete numbness of the right side. States numbness has improved. - Labs CBC & Chem 7: 04/10/24 06:05 04/11/24 10:50 Assessment and Plan Assessment: * Acute onset of right-sided weakness, status post TNK. At present patient able to wiggle her fingers and toes, but still very weak on the right side. Suspect conversion disorder, as patient has presented in a similar pattern on 03/16/2022 and 02/14/2020. She received tPA on 05/19/2021, with subsequent normal MRI brain. * Hypertension * History of pseudoseizures * History of migraines * History of fibromyalgia Plan: Patient continues to be weak with right hemiparesis. Await MRI of the brain. Patient has VNS wires still in place although the VNS has been removed itself. She needs MRI clearance before MRI. CTA of the head and neck revealed no evidence of dissection of the cervical internal carotid arteries or vertebral arteries. No evidence of significant stenosis at the carotid bifurcations. No evidence of intracranial high-grade stenosis or intracranial aneurysm. 2D echo 02/07/2024 revealed normal LV function with EF 55 to 60%. No obvious regional wall motion abnormalities. Left atrium severely increased in volume. Mildly increased left atrial area. Mild to moderate MR, aortic valve sclerosis. EEG was completed. It was a borderline abnormal EEG. Some sporadic paroxysmal high amplitude generalized fast frequency activity was seen lasting for 1 to 2 seconds. Some of them are associated with head or eye movement. There were transient right temporal sharp appearing waves also noticed with these spells. These did not appear clearly epileptiform and are of uncertain significance. Recommend further evaluation with a prolonged, sleep deprived EEG. Patient on Lamictal 200 mg twice daily. Lamictal level therapeutic 7.9 (2-15) Patient follows up with Dr. Harmon, neurologist at [facility]. Patient has an long-term EEG scheduled for 7 days, starting at 8:45 AM on 05/21/2024. Lipid panel with cholesterol 246, LDL 152, HDL 56 and triglycerides 187. Continue Lipitor 80 mg daily. Lipids are poorly controlled despite being on Lipitor. Consider starting newer agents to control hyperlipidemia. Hemoglobin A1c 5.2. Post TNK protocol to follow. Continue neurochecks. 24 hours post TNK CAT scan showed no acute process. Patient started on aspirin 325 mg daily. PT OT, speech therapy Physical medicine and rehab consult appreciated. Recommending inpatient rehab. DVT prophylaxis: Start heparin 5000 units subcu every 12 hours. Neurologically clear to be transferred to rehab, once the MRI is completed.
[2024-04-13 08:24] VITALS: RESP 16; TEMP 97.5
[2024-04-13 08:52] VITALS: BMI 31.5
[2024-04-13 11:59] VITALS: BP 139/67; PULSE 66
--- NOTE | 2024-04-13 12:06 | P.DS ---
Providers Date of admission: 04/08/24 18:16 Expected date of discharge: 04/13/24 Attending physician: Charmaine Nieves Consults: 04/08/24 18:16 Consult Physician Stat Consulting Provider: Bernabe Hernandez Consult Reason/Comments: right sided weakness, suspected cva Do you want consulting provider notified?: Yes Consult Physician Urgent Consulting Provider: Javon Hernandez Consult Reason/Comments: acute cva s/p tnkase Do you want consulting provider notified?: Yes 04/10/24 10:54 Consult Physician Routine Consulting Provider: Moy Bloom Consult Reason/Comments: eval for IPR Do you want consulting provider notified?: Yes 04/12/24 13:28 Consult Physician Routine Consulting Provider: Psychiatry - [facility] Psych[facility]ry Consult Reason/Comments: possible conversion disorder Do you want consulting provider notified?: Already Contacted Primary care physician: Maisha Hammonds [facility] Course: Discharge diagnoses; Acute confusion associated with right side weakness and numbness, status post TNKase, and the emergency room. Acute CVA, differential diagnosis is conversion disorder Encephalopathy Possible elements of hypertension urgency on admission, currently controlled History of pseudoseizure History of migraine History of fibromyalgia moderate mitral regurgitation Hospital course; This is a pleasant 58 years old female with past medical history of multiple medical problems as below. Presents because of confusion the right side weakness Patient states that she was downstairs and then she made 3 girls from the building which they asked her if she was doing okay, at that time she could not tell where she is at. Also she told his nurse " who are you " which looks unusual for the pt because the patient. can realize she knew them from before, and then one of the neighbors was passing by and he called her dad who came downstairs and then he took her to their apartment up, patient started feeling numbness and weakness in both right and lower extremities and he called the ambulance for her. Patient states that she could having numbness in her right middle 3 fingers on and off for about a year but not the whole upper extremities or lower extremities Also patient stating that she has severe frontal headache and around her eyes which is now significantly improved with this is only slight. She denies dizziness, no double vision no, no slurred speech. She denies chest pain or dyspnea, no specific GI/ symptom She denies smoking alcohol illicit drugs She denies depression, anxiety, hallucination either visual or auditory. However patient states she is under a lot of stressors and manage with her son, she did not spend the [place] near with him although she wanted to. Also she has not talking to him yet Patient states that she used to follow-up with Dr. Rodriguez the female neurologist and with Dr. Thomas but currently switched to another neurologist in [place] she has appointment for cognitive test this month, as she has memory problems She is hemodynamically stable, blood pressure was elevated on admission She is afebrile Labs unremarkable with CBC, BMP, LFT, troponin CT of the brain is negative for acute infarction CTA of the head and neck is also negative for acute process Chest x-ray showing no acute cardiopulmonary process 04/10/2024 Patient is awake and alert Still complaining from right side hemiplegia. Patient states that home conditions that she lives with parents who are 87 and 90 years old therefore IPR consult was requested for possible rehab therapy I discussed the case with the neurologist today although there was suspicion of conversion syndrome however we will still need to rule out acute stroke which is in the differential diagnosis, of note the patient received TNKase therapy in the emergency room with not even small improvement this next the case go against the acute stroke diagnosis but not excluded it entirely. Therefore I agree with obtaining MRI of the brain. 04/11 Patient still have right side weakness same since admission No other new complaint and she is doing well fully awake and oriented Pending MRI of the brain after that patient can be considered for discharge to inpatient rehab Monitor creatinine Possible discharge soon 04/12 Patient with right hemiplegia No other new complaint MRI of the brain is pending, mother is going to bring her pacemaker card to see if it is compatible Patient will require inpatient rehab upon discharge Patient can benefit from psych evaluation which can be done as an outpatient once organic causes ruled out 04/13. Patient seen and examined. Patient MRI could not be done as patient pacemaker is not compatible. Discussed with neurology, patient is cleared for discharge to acute rehab. PHYSICAL EXAMINATION: GENERAL: The patient is alert and oriented x3, not in any acute distress. Well developed, well nourished. HEENT: Pupils are round and equally reacting to light. EOMI. No scleral icterus. No conjunctival pallor. Normocephalic, atraumatic. No pharyngeal erythema. No thyromegaly. CARDIOVASCULAR: S1 and S2 present. No murmurs, rubs, or gallops. PULMONARY: Chest is clear to auscultation, no wheezing or crackles. ABDOMEN: Soft, nontender, nondistended, normoactive bowel sounds. No palpable organomegaly. MUSCULOSKELETAL: No joint swelling or deformity. EXTREMITIES: No cyanosis, clubbing, or pedal edema. NEUROLOGICAL: Cranial nerves II to XII intact, muscle strength is 1 x 5 in right upper extremity and right lower extremity and 5 out of 5 in all other extremity SKIN: No rashes. Dictation was produced using [employer] dictation software. please excuse any grammatical, word or spelling errors. Patient Condition at Discharge: Stable Plan - Discharge Summary Discharge Rx Participant: No New Discharge Prescriptions: New Aspirin 325 mg PO DAILY #30 tab Continue lamoTRIgine [LaMICtal] 200 mg PO BID Atorvastatin [Lipitor] 80 mg PO HS Sertraline [Zoloft] 100 mg PO BID diazePAM [Valium] 10 mg PO HS Nitroglycerin Sl Tabs [Nitrostat] 0.4 mg SUBLINGUAL Q5M PRN #20 tab PRN Reason: Chest Pain Mupirocin 2% Oint [Bactroban 2% Oint] 1 applic TOPICAL DAILY PRN PRN Reason: sores on face Discharge Medication List lamoTRIgine [LaMICtal] 200 mg PO BID 09/26/18 [History] Sertraline [Zoloft] 100 mg PO BID 03/22/22 [History] diazePAM [Valium] 10 mg PO HS 08/02/23 [History] Nitroglycerin Sl Tabs [Nitrostat] 0.4 mg SUBLINGUAL Q5M PRN #20 tab 02/08/24 [Rx] Atorvastatin [Lipitor] 80 mg PO HS 04/08/24 [History] Mupirocin 2% Oint [Bactroban 2% Oint] 1 applic TOPICAL DAILY PRN 04/08/24 [History] Aspirin 325 mg PO DAILY #30 tab 04/13/24 [Rx] Follow up Appointment(s)/Referral(s): Maisha Hammonds MD [Primary Care Provider] - 1-2 days Activity/Diet/Wound Care/Special Instructions: Activity: As tolerated Diet: Consistent Carbohydrate Discharge Disposition: TRANSFER TO SNF/ECF
--- NOTE | 2024-04-13 13:36 | P.CN ---
Psychiatric Consult - . Consult date: 04/13/24 Consult:: 04/13/24 13:31 IDENTIFYING DATA: This patient is a 58-year-old female, on disability and living independently REASON FOR REFERRAL: Psychiatry was consulted for conversion disorder HISTORY OF PRESENT ILLNESS: The patient presented to the hospital with strokelike symptoms. CT head was negative x 2, CTA head was negative. Neurology was consulted and have been following patient and ordered EEG. Patient seen and evaluated in the room with parents at bedside. Patient was agreeable to speak with parents around. She does not feel like she needs to see a psychiatrist as she reports strong support network including her parents and friends. She does state feeling depressed at times however states this is not persistent. Ongoing stressors include an argument with her son and his that led to her not being able to spend [place] with her grandkid. Patient does report intermittent suicidal ideations, no intent or plan. Patient was encouraged to utilize her support network if these thoughts intensify or dialing the suicide hotline [phone]. At this time patient denies any suicidal or homical ideations, intent or plan. Patient denies any auditory, visual hallucinations and denies any paranoia or delusions. Patients admits to using alcohol occasionally PAST PSYCHIATRIC HISTORY: Patient has a a history of anxiety. Patient is currently on Zoloft 100 mg twice daily and Valium 10 mg at bedtime. She reports 1 remote inpatient hospitalization roughly 25 years ago. Patient denies any psychiatric outpatient follow-up. Patient denies any history of suicide attempts in the past. PAST MEDICAL HISTORY: Seizures, syncope, migraines. ALLERGIES: as per EMR. CHEMICAL DEPENDENCY HISTORY: as per HPI. FAMILY PSYCHIATRIC/SUBSTANCE USE HISTORY: Denies SOCIAL HISTORY: Patient has 1 son and 2 grandkids. She completed some college. She lives alone. She is on disability. MENTAL STATUS EXAM: General Appearance: Patient appears to be stated age is alert, pleasant, and cooperative. Patient appears to have fair hygiene and grooming wearing hospital gown with fair eye contact. Behavior: Patient is calmly lying in bed without any agitated behavior. Speech: Patient's speech is fluent and nonpressured. Mood/Affect: Patient reports their mood is "I am fine", affect is congruent Suicidality/Homicidality: Patient denies having any suicidal or homicidal ideation intent or plan. Perceptions: Patient denies any visual hallucinations and denies any auditory hallucinations Though content/process: There is no evidence of any delusional thought content and thought process is linear and goal-directed. Memory and concentration: AOX3, grossly intact for the purposes of this session. Can spell "WORLD" backwards Judgment and insight: Fair IMPRESSIONS: Depression, unspecified History of anxiety PLAN: -At this time patient DOES NOT meet criteria for inpatient psychiatric admission. -Would recommend the following medication changes/additions: Continue Zoloft 100 mg twice daily, Valium 10 mg at bedtime. Patient provided resources for mental health in the area and she was encouraged to reach out to counselor given ongoing stressors -fly worker to provide patient with outpatient mental health/psychiatry resources for appropriate follow up upon discharge -Psychiatry will sign off at this time -Please contact with any questions.
== END 2024-04-13 13:37 | DRG 756 ==
LOC: EC 16:31 → SUPCPDRO 16:31 → 2SICU 18:16 → 3SCARD 04-09 19:16
PROVIDERS: ADMIT Hospitalist; ATTEND Hospitalist
DX: F44.9 Dissociative and conversion disorder, unspecified (principal); G93.40 Encephalopathy, unspecified; R53.1 Weakness; R56.9 Unspecified convulsions; G43.909 Migraine, unspecified, not intractable, without status migrainosus; M79.7 Fibromyalgia; I34.0 Nonrheumatic mitral (valve) insufficiency; G81.91 Hemiplegia, unspecified affecting right dominant side; I10 Essential (primary) hypertension; F41.0 Panic disorder [episodic paroxysmal anxiety]; I44.0 Atrioventricular block, first degree; I25.10 Atherosclerotic heart disease of native coronary artery without angina pectoris; E78.5 Hyperlipidemia, unspecified; R45.851 Suicidal ideations; F32.A Depression, unspecified; I16.0 Hypertensive urgency; Z88.1 Allergy status to other antibiotic agents; Z88.5 Allergy status to narcotic agent; Z88.0 Allergy status to penicillin; Z79.82 Long term (current) use of aspirin; Z79.899 Other long term (current) drug therapy; Z85.038 Personal history of other malignant neoplasm of large intestine; Z86.73 Personal history of transient ischemic attack (TIA), and cerebral infarction without residual deficits; Z90.710 Acquired absence of both cervix and uterus
CPT/HCPCS: 36415; 70450; 70496; 70498; 71045; 80048; 80053; 80175; 82550; 83036; 84484; 85025; 85610; 85730; 93005; 95816; 96365; 96366; 96375; 96376; 99285

== ENCOUNTER 2024-04-26 20:59 | Emergency (ER) | payer OTHER ==
[2024-04-26] MEDS: droPERidol 2.5 MG/ML VIAL IVP ONE (21:45)
[2024-04-26] MEDS: ACETAMINOPHEN TAB 500 MG TAB PO STA (21:46)
[2024-04-26] MEDS: SODIUM CHLORIDE 0.9% 1,000 ML IV STA (21:46)
[2024-04-26 21:47] LABS: Basophils % (A) 0 %; Eosinophils # (A) 0.1 k/uL (0-0.7); Eosinophils % (A) 2 %; HCT 37.3 % (34.0-46.0); HGB 12.2 gm/dL (11.4-16.0); Lymphocytes # (A) 2.2 k/uL (1.0-4.8); Lymphocytes % (A) 27 %; MCH 28.9 pg (25.0-35.0); MCHC 32.7 g/dL (31.0-37.0); MCV 88.5 fL (80.0-100.0); Mean Platelet Volume 7.2; Monocytes # (A) 0.3 k/uL (0-1.0); Monocytes % (A) 4 %; Neutrophils # (A) 5.4 k/uL (1.3-7.7); Neutrophils % (A) 66 %; Platelet Count 230 k/uL (150-450); RBC 4.21 m/uL (3.80-5.40); RDW 13.9 % (11.5-15.5); WBC 8.1 k/uL (3.8-10.6)
[2024-04-26] MEDS: droPERidol 5 MG/2 ML VIAL IVP ONE (21:48)
[2024-04-26 21:57] LABS: ALT 32 U/L (4-34); AST 29 U/L (14-36); African American GFR (CKD) >90 (>60 ml/min/1.73 sqM); Albumin 4.3 g/dL (3.5-5.0); Alkaline Phosphatase 196 U/L (38-126); Anion Gap 10 mmol/L; Blood Urea Nitrogen 21 mg/dL (7-17); Calcium 9.6 mg/dL (8.4-10.2); Carbon Dioxide 28 mmol/L (22-30); Chloride 103 mmol/L (98-107); Glucose 93 mg/dL (74-99); Non-African American GFR(CKD) 81 (>60 ml/min/1.73 sqM); Sodium 141 mmol/L (137-145); Total Bilirubin 0.6 mg/dL (0.2-1.3); Total Protein 7.1 g/dL (6.3-8.2)
--- NOTE | 2024-04-26 23:31 | ED ---
Headache HPI - General Chief Complaint: Headache Stated Complaint: headache Time Seen by Provider: 04/26/24 21:05 Mode of arrival: EMS Limitations: no limitations - Related Data Home Medications Medication Instructions Recorded Confirmed lamoTRIgine [LaMICtal] 200 mg PO BID 09/26/18 04/08/24 Sertraline [Zoloft] 100 mg PO BID 03/22/22 04/08/24 diazePAM [Valium] 10 mg PO HS 08/02/23 04/08/24 Atorvastatin [Lipitor] 80 mg PO HS 04/08/24 04/08/24 Mupirocin 2% Oint [Bactroban 2% 1 applic TOPICAL DAILY PRN 04/08/24 04/08/24 Oint] Previous Rx's Medication Instructions Recorded Nitroglycerin Sl Tabs [Nitrostat] 0.4 mg SUBLINGUAL Q5M PRN #20 tab 02/08/24 Aspirin 325 mg PO DAILY #30 tab 04/13/24 Allergies Allergy/AdvReac Type Severity Reaction Status Date / Time cephalexin [From Keflex] Allergy Rash/Hives Verified 04/26/24 21:08 codeine Allergy Rash/Hives Verified 04/26/24 21:08 erythromycin base Allergy Rash/Hives Verified 04/26/24 21:08 gadobutrol [From Gadavist] Allergy Anaphylaxis Verified 04/26/24 21:08 Gadolinium-Containing Allergy Anaphylaxis Verified 04/26/24 21:08 Contrast Medi iodine Allergy Anaphylaxis Verified 04/26/24 21:08 Penicillins Allergy Anaphylaxis Verified 04/26/24 21:08 vancomycin Allergy Anaphylaxis Verified 04/26/24 21:08 azithromycin AdvReac red face Verified 04/26/24 21:08 diphenhydramine AdvReac Confusion Verified 04/26/24 21:08 [From Benadryl] Review of Systems ROS Statement: Those systems with pertinent positive or pertinent negative responses have been documented in the HPI. ROS Other: All systems not noted in ROS Statement are negative. Past Medical History Past Medical History: Cancer, CVA/TIA, Syncope Additional Past Medical History / Comment(s): migraines, "stress seizures", swelling of left lower leg, insomnia, hx hiatal hernia, hx colon cancer, diarrhea, hx psoriasis, Leaky heart valve, episodes of "passing out", 3x blocked sweat glands currently. BLOOD TRANSFUSIONS FOR LOW HGB. tia 5 yrs ago no residual. uterine and colon ca x2. see dr Davenport [facility] & P History of Any Multi-Drug Resistant Organisms: MRSA Date of last positivie culture/infection: 08/10/19 MDRO Source:: URINE Past Surgical History: Appendectomy, Bowel Resection, Cholecystectomy, Ear Surgery, Hernia Repair, Hysterectomy, Orthopedic Surgery Additional Past Surgical History / Comment(s): frantz knee arthroscopy, hiatal hernia surgery, rt ear surgery to remove middle ear, lymph node biopsy right armpit. loop recorder Past Anesthesia/Blood Transfusion Reactions: Postoperative Nausea & Vomiting (PONV) Additional Past Anesthesia/Blood Transfusion Reaction / Comment(s): Pt has received blood in past without reaction. Type of Cardiac Device: Loop Device Placement Date:: 2016 states need to be removed everything fine now per patien Past Psychological History: Anxiety, Panic Disorder Smoking Status: Never smoker Past Alcohol Use History: Occasional Past Drug Use History: None Reported - Past Family History Mother Family Medical History: Coronary Artery Disease (CAD), Diabetes Mellitus Additional Family Medical History / Comment(s): . Father Family Medical History: No Reported History Additional Family Medical History / Comment(s): Father is healthy General Exam Limitations: no limitations Course Vital Signs 04/26/24 04/26/24 04/26/24 21:02 22:24 23:00 Temperature 98.1 F Pulse Rate 85 66 67 Respiratory 16 16 16 Rate Blood Pressure 139/101 128/49 112/56 O2 Sat by Pulse 96 95 95 Oximetry 04/26/24 23:39 Temperature 98.3 F Pulse Rate 64 Respiratory 18 Rate Blood Pressure 118/60 O2 Sat by Pulse 98 Oximetry Medical Decision Making - Medical Decision Making Was pt. sent in by a medical professional or institution (, PA, DIRECTOR OF DANCE, urgent care, hospital, or [place] health [place] facility...) When possible be specific @ -[No] Did you speak to anyone other than the patient for history (EMS, parent, family, police, friend...)? What history was obtained from this source @ -[No] Did you review nursing and triage notes (agree or disagree)? Why? @ -[I reviewed and agree with nursing and triage notes] Were old charts reviewed (outside hosp., previous admission, EMS record, old EKG, old radiological studies, urgent care reports/EKG's, [place] [facility] facility records)? Report findings @ -[No old charts were reviewed] Differential Diagnosis (chest pain, altered mental status, abdominal pain women, abdominal pain men, vaginal bleeding, weakness, fever, dyspnea, syncope, headache, dizziness, GI bleed, back pain, seizure, CVA, palpatations, mental health, musculoskeletal)? @ -[not applicable] EKG interpreted by me (3pts min.). @ -Yes and demonstrates sinus rhythm with a rate of 86. IA interval 98. QRS 138. QTc of 433. Intraventricular conduction delay. No acute ST segment elevations X-rays interpreted by me (1pt min.). @ -[None done] CT interpreted by me (1pt min.). @ -[None done] U/S interpreted by me (1pt. min.). @ -[None done] What testing was considered but not performed or refused? (CT, X-rays, U/S, labs)? Why? @ -[None] What meds were considered but not given or refused? Why? @ -[None] Did you discuss the management of the patient with other professionals (professionals i.e. , PA, DIRECTOR OF DANCE, lab, RT, psych nurse, social services counselor, senior graphic designer, teacher, co founder and chief strategy officer, returned case inspector)? Give summary @ -[No] Was smoking cessation discussed for >3mins.? @ -[No] Was critical care preformed (if so, how long)? @ -[No] Were there social determinants of health that impacted care today? How? (Homelessness, low income, unemployed, alcoholism, drug addiction, transportation, low edu. Level, literacy, decrease access to med. care, long term, rehab)? @ -[No] Was there de-escalation of care discussed even if they declined (Discuss DNR or withdrawal of care, Hospice)? DNR status @ -[No] What co-morbidities impacted this encounter? (DM, HTN, Smoking, COPD, CAD, Cancer, CVA, ARF, Chemo, Hep., AIDS, mental health diagnosis, sleep apnea, morbid obesity)? @ -[None] Was patient admitted / discharged? Hospital course, mention meds given and route, prescriptions, significant lab abnormalities, going to OR and other pertinent info. @ -[hospital course] Undiagnosed new problem with uncertain prognosis? @ -[No] Drug Therapy requiring intensive monitoring for toxicity (Heparin, Nitro, Insulin, Cardizem)? @ -[No] Were any procedures done? @ -[No] Diagnosis/symptom? @ -[default] Acute, or Chronic, or Acute on Chronic? @ -[default] Uncomplicated (without systemic symptoms) or Complicated (systemic symptoms)? @ -[default] Side effects of treatment? @ -[No] Exacerbation, Progression, or Severe Exacerbation? @ -[No] Poses a threat to life or bodily function? How? (Chest pain, USA, [place], pneumonia, PE, COPD, DKA, ARF, appy, cholecystitis, CVA, Diverticulitis, Homicidal, Suicidal, threat to staff... and all critical care pts) @ -[No] - Lab Data Result diagrams: 04/26/24 21:40 04/26/24 21:40 Lab Results 04/26/24 04/26/24 Range/Units 21:40 21:40 WBC 8.1 (3.8-10.6) k/uL RBC 4.21 (3.80-5.40) m/uL Hgb 12.2 (11.4-16.0) gm/dL Hct 37.3 (34.0-46.0) % MCV 88.5 (80.0-100.0) fL MCH 28.9 (25.0-35.0) pg MCHC 32.7 (31.0-37.0) g/dL RDW 13.9 (11.5-15.5) % Plt Count 230 (150-450) k/uL MPV 7.2 Neutrophils % 66 % Lymphocytes % 27 % Monocytes % 4 % Eosinophils % 2 % Basophils % 0 % Neutrophils # 5.4 (1.3-7.7) k/uL Lymphocytes # 2.2 (1.0-4.8) k/uL Monocytes # 0.3 (0-1.0) k/uL Eosinophils # 0.1 (0-0.7) k/uL Basophils # 0.0 (0-0.2) k/uL Sodium 141 (137-145) mmol/L Potassium 4.0 (3.5-5.1) mmol/L Chloride 103 (98-107) mmol/L Carbon Dioxide 28 (22-30) mmol/L Anion Gap 10 mmol/L BUN 21 H (7-17) mg/dL Creatinine 0.81 (0.52-1.04) mg/dL Est GFR (CKD-EPI)AfAm >90 (>60 ml/min/1.73 sqM) Est GFR (CKD-EPI)NonAf 81 (>60 ml/min/1.73 sqM) Glucose 93 (74-99) mg/dL Calcium 9.6 (8.4-10.2) mg/dL Total Bilirubin 0.6 (0.2-1.3) mg/dL AST 29 (14-36) U/L ALT 32 (4-34) U/L Alkaline Phosphatase 196 H (38-126) U/L Total Protein 7.1 (6.3-8.2) g/dL Albumin 4.3 (3.5-5.0) g/dL Disposition Clinical Impression: Headache Disposition: HOME SELF-CARE Condition: Stable Instructions (If sedation given, give patient instructions): Acute Headache (ED) Is patient prescribed a controlled substance at d/c from ED?: No Referrals: Maisha Hammonds MD [Primary Care Provider] - 1-2 days Time of Disposition: 23:26
[2024-04-26] MEDS: KETOROLAC 15 MG/ML 1 ML VIAL IVP STA (23:36)
[2024-04-26 23:39] VITALS: BP 118/60; PULSE 64; RESP 18; TEMP 98.3
== END 2024-04-26 23:39 | disposition home or self-care (01) ==
LOC: EC 20:59
DX: R51.9 Headache, unspecified (principal); Z86.73 Personal history of transient ischemic attack (TIA), and cerebral infarction without residual deficits; Z88.0 Allergy status to penicillin; Z88.1 Allergy status to other antibiotic agents; Z88.8 Allergy status to other drugs, medicaments and biological substances; Z91.041 Radiographic dye allergy status; Z88.5 Allergy status to narcotic agent
CPT/HCPCS: 36415; 80053; 85025; 99284; 96374; 96375; 96361; J1885; J1790

== ENCOUNTER 2024-06-12 11:37 | Emergency (ER) | payer OTHER ==
[2024-06-12 12:07] VITALS: RESP 18
--- NOTE | 2024-06-12 13:32 | XR ---
EXAMINATION TYPE: XR chest 2V DATE OF EXAM: 06/12/2024 12:56 PM COMPARISON: Chest radiographs from 04/08/2024. CLINICAL INDICATION: Female, 58 years old with history of Chest Pain; TECHNIQUE: XR chest 2V Frontal and lateral views of the chest. FINDINGS: Lungs/Pleura: There is no evidence of pleural effusion, focal consolidation, or pneumothorax. Pulmonary vascularity: Unremarkable. Heart/mediastinum: Cardiomediastinal silhouette is unremarkable. A loop recorder projects over the le ft thorax over the heart. Musculoskeletal: No acute osseous pathology. IMPRESSION: No acute cardiopulmonary disease/process. [facility], , 06/12/2024 1:29 PM
[2024-06-12 13:52] LABS: Basophils % (A) 0 %; Eosinophils # (A) 0.1 k/uL (0-0.7); Eosinophils % (A) 1 %; HCT 41.1 % (34.0-46.0); HGB 12.9 gm/dL (11.4-16.0); Lymphocytes # (A) 1.6 k/uL (1.0-4.8); Lymphocytes % (A) 20 %; MCH 28.3 pg (25.0-35.0); MCHC 31.4 g/dL (31.0-37.0); MCV 90.3 fL (80.0-100.0); Mean Platelet Volume 7.9; Monocytes # (A) 0.2 k/uL (0-1.0); Monocytes % (A) 3 %; Neutrophils % (A) 75 %; Platelet Count 282 k/uL (150-450); RBC 4.55 m/uL (3.80-5.40); RDW 14.6 % (11.5-15.5); WBC 8.1 k/uL (3.8-10.6)
[2024-06-12 14:01] LABS: ALT 82 U/L (4-34); AST 72 U/L (14-36); African American GFR (CKD) >90 (>60 ml/min/1.73 sqM); Albumin 4.4 g/dL (3.5-5.0); Alkaline Phosphatase 219 U/L (38-126); Anion Gap 11 mmol/L; Blood Urea Nitrogen 32 mg/dL (7-17); Calcium 9.7 mg/dL (8.4-10.2); Carbon Dioxide 27 mmol/L (22-30); Chloride 101 mmol/L (98-107); Glucose 105 mg/dL (74-99); Non-African American GFR(CKD) 87 (>60 ml/min/1.73 sqM); Potassium 4.8 mmol/L (3.5-5.1); Sodium 139 mmol/L (137-145); Total Bilirubin 0.5 mg/dL (0.2-1.3); Total Protein 7.4 g/dL (6.3-8.2)
--- NOTE | 2024-06-12 14:04 | ED ---
General Adult HPI - General Chief complaint: Chest Pain Stated complaint: chest pain Time Seen by Provider: 06/12/24 13:42 Source: patient Mode of arrival: ambulatory Limitations: no limitations - History of Present Illness Initial comments: Dictation was produced using [employer] dictation software. please excuse any grammatical, word or spelling errors. Chief Complaint: 58-year-old male presents to the emergency department for high blood pressure History of Present Illness: Patient is a 50-year-old female she has past medical history of hypertension. She was seen at Dr. Milian's office yesterday started on blood pressure medications. Today she checked her blood pressure twice with levels measuring 170 systolic over 120 systolic. She checked it twice. She called her primary care doctor today and told her to come to the ER. Patient has been dealing with a migraine for the last couple days denies at this to work as headache of her life. Denies any neck stiffness. Denies thunderclap nature. States it started around her left eye like it normally does and slowly spreads over the course of 2 hours to her whole head. States that it is throbbing in nature. She does report a history of migraines. No history of aneurysms. No family history of aneurysms or polycystic kidney disease. The ROS documented in this emergency department record has been reviewed and confirmed by me. Those systems with pertinent positive or negative responses have been documented in the HPI. All other systems are other negative and/or noncontributory. - Related Data Home Medications Medication Instructions Recorded Confirmed lamoTRIgine [LaMICtal] 200 mg PO BID 09/26/18 04/08/24 Sertraline [Zoloft] 100 mg PO BID 03/22/22 04/08/24 diazePAM [Valium] 10 mg PO HS 08/02/23 04/08/24 Atorvastatin [Lipitor] 80 mg PO HS 04/08/24 04/08/24 Mupirocin 2% Oint [Bactroban 2% 1 applic TOPICAL DAILY PRN 04/08/24 04/08/24 Oint] Previous Rx's Medication Instructions Recorded Nitroglycerin Sl Tabs [Nitrostat] 0.4 mg SUBLINGUAL Q5M PRN #20 tab 02/08/24 Aspirin 325 mg PO DAILY #30 tab 04/13/24 Allergies Allergy/AdvReac Type Severity Reaction Status Date / Time cephalexin [From Keflex] Allergy Rash/Hives Verified 06/12/24 12:07 codeine Allergy Rash/Hives Verified 06/12/24 12:07 erythromycin base Allergy Rash/Hives Verified 06/12/24 12:07 gadobutrol [From Gadavist] Allergy Anaphylaxis Verified 06/12/24 12:07 Gadolinium-Containing Allergy Anaphylaxis Verified 06/12/24 12:07 Contrast Medi iodine Allergy Anaphylaxis Verified 06/12/24 12:07 Penicillins Allergy Anaphylaxis Verified 06/12/24 12:07 vancomycin Allergy Anaphylaxis Verified 06/12/24 12:07 azithromycin AdvReac red face Verified 06/12/24 12:07 diphenhydramine AdvReac Confusion Verified 06/12/24 12:07 [From Benadryl] Review of Systems ROS Statement: Those systems with pertinent positive or pertinent negative responses have been documented in the HPI. ROS Other: All systems not noted in ROS Statement are negative. Past Medical History Past Medical History: Cancer, CVA/TIA, Syncope Additional Past Medical History / Comment(s): migraines, "stress seizures", swelling of left lower leg, insomnia, hx hiatal hernia, hx colon cancer, diarrhea, hx psoriasis, Leaky heart valve, episodes of "passing out", 3x blocked sweat glands currently. BLOOD TRANSFUSIONS FOR LOW HGB. tia 5 yrs ago no residual. uterine and colon ca x2. see dr Davenport H & P History of Any Multi-Drug Resistant Organisms: MRSA Date of last positivie culture/infection: 08/10/19 MDRO Source:: URINE Past Surgical History: Appendectomy, Bowel Resection, Cholecystectomy, Ear Surgery, Hernia Repair, Hysterectomy, Orthopedic Surgery Additional Past Surgical History / Comment(s): frantz knee arthroscopy, hiatal hernia surgery, rt ear surgery to remove middle ear, lymph node biopsy right armpit. loop recorder Past Anesthesia/Blood Transfusion Reactions: Postoperative Nausea & Vomiting (PONV) Additional Past Anesthesia/Blood Transfusion Reaction / Comment(s): Pt has received blood in past without reaction. Type of Cardiac Device: Loop Device Placement Date:: 2016 states need to be removed everything fine now per patien Past Psychological History: Anxiety, Panic Disorder Smoking Status: Never smoker Past Alcohol Use History: Occasional Past Drug Use History: Marijuana - Past Family History Mother Family Medical History: Coronary Artery Disease (CAD), Diabetes Mellitus Additional Family Medical History / Comment(s): . Father Family Medical History: No Reported History Additional Family Medical History / Comment(s): Father is healthy General Exam - General Exam Comments Initial Comments: PHYSICAL EXAM: General Impression: Alert and oriented x3, not in acute distress HEENT: Normocephalic atraumatic, extra-ocular movements intact, pupils equal and reactive to light bilaterally, mucous membranes moist. Cardiovascular: Heart regular rate and rhythm Chest: Able to complete full sentences, no retractions, no tachypnea Abdomen: abdomen soft, non-tender, non-distended, no organomegaly Musculoskeletal: Pulses present and equal in all extremities, no peripheral edema Motor: no focal deficits noted Neurological: CN II-XII grossly intact, no focal motor or sensory deficits noted Skin: Intact with no visualized rashes Psych: Normal affect and mood Limitations: no limitations Course Vital Signs 06/12/24 06/12/24 06/12/24 12:01 12:09 14:21 Temperature 97.8 F Pulse Rate 84 77 Pulse Rate [ 77 Right Sitting Radial] Respiratory 18 18 Rate Blood Pressure 136/75 134/82 158/64 O2 Sat by Pulse 97 95 Oximetry EKG Findings - EKG Comments: EKG Findings:: My EKG interpretation: Ventricular rate 73, right bundle branch block, sinus rhythm, NE interval 256, QRS 168, QTc 471. No NE prolongation, no QTC prolongation, no ST or T-wave changes noted. Overall, this EKG is unremarkable Medical Decision Making - Medical Decision Making Was pt. sent in by a medical professional or institution (, PA, PROCESS HELPER, urgent care, hospital, or skilled nursing...) When possible be specific @ -No Did you speak to anyone other than the patient for history (EMS, parent, family, police, friend...)? What history was obtained from this source @ -No Did you review nursing and triage notes (agree or disagree)? Why? @ -I reviewed and agree with nursing and triage notes Were old charts reviewed (outside hosp., previous admission, EMS record, old EKG, old radiological studies, urgent care reports/EKG's, skilled nursing records)? Report findings @ -No old charts were reviewed Differential Diagnosis (chest pain, altered mental status, abdominal pain women, abdominal pain men, vaginal bleeding, musculoskeletal, weakness, fever, dyspnea, syncope, headache, dizziness, GI bleed, back pain, seizure, CVA, palpatations, mental health)? @ -Differential Headache: Migraine, tension, cluster, carbon monoxide, central venous thrombosis, pension karma temporal arteritis, acute closure glaucoma, intercranial hemorrhage, mastoiditis, sinusitis, head injury, this is not meant to be an all-inclusive list. EKG interpreted by me (3pts min.). @ -See above X-rays interpreted by me (1pt min.). @ -Chest x-ray shows no acute processes CT interpreted by me (1pt min.). @ -CT brain is nonacute U/S interpreted by me (1pt. min.). @ -None done What testing was considered but not performed or refused? (CT, X-rays, U/S, labs)? Why? @ -None What meds were considered but not given or refused? Why? @ -None Was smoking cessation discussed for >3mins.? @ -No Were there social determinants of health that impacted care today? How? (Homelessness, low income, unemployed, alcoholism, drug addiction, transportation, low edu. Level, literacy, decrease access to med. care, fpc, rehab)? @ -No Was there de-escalation of care discussed even if they declined (Discuss DNR or withdrawal of care, Hospice)? DNR status @ -No What co-morbidities impacted this encounter? (DM, HTN, Smoking, COPD, CAD, Cancer, CVA, ARF, Chemo, Hep., AIDS, mental health diagnosis, sleep apnea, mo rbid obesity)? @ -None Was patient admitted / discharged? Hospital course, mention meds given and r oute, prescriptions, significant lab abnormalities, going to OR and other pertinent info. @ -58-year-old female with hypertension. She also complains of a migraine. Denies any chest pain. Vital signs upon arrival are within acceptable limits. Laboratory is unremarkable. Patient given headache cocktail. Patient observed emergency department requesting discharge because she is currently standing in the hallway and feels uncomfortable with sick people walking around. She also states that she is cold. Patient has no high risk features. Her exam on reeval at 4:44 PM is unremarkable. Patient advised follow-up with primary care doctor. CT brain is unremarkable. She states that she has some cannabis products at home that she can use to help with her headache. Did you discuss the management of the patient with other professionals (professionals i.e. , PA, PROCESS HELPER, lab, RT, psych nurse, social media marketing analyst, topline beading machine tender, teacher, hospital admissions officer, lead case manager)? Give summary @ -No Was critical care preformed (if so, how long)? @ -No Undiagnosed new problem with uncertain prognosis? @ -No Drug Therapy requiring intensive monitoring for toxicity (Heparin, Nitro, Insulin, Cardizem)? @ -No Were any procedures done? @ -No Diagnosis/symptom? Acute, or Chronic, or Acute on Chronic? Uncomplicated (without systemic symptoms) or Complicated (systemic symptoms)? @ -Migraine headache Side effects of treatment? @ -No Exacerbation, Progression, or Severe Exacerbation? @ -No Poses a threat to life or bodily function? How? (Chest pain, USA, [place], pneumonia, PE, COPD, DKA, ARF, appy, cholecystitis, CVA, Diverticulitis, Homicidal, Suicidal, threat to staff... and all critical care pts) @ -No - Lab Data Result diagrams: 06/12/24 12:08 06/12/24 12:08 Lab Results 06/12/24 06/12/24 06/12/24 Range/Units 12:08 12:08 12:08 WBC 8.1 (3.8-10.6) k/uL RBC 4.55 (3.80-5.40) m/uL Hgb 12.9 (11.4-16.0) gm/dL Hct 41.1 (34.0-46.0) % MCV 90.3 (80.0-100.0) fL MCH 28.3 (25.0-35.0) pg MCHC 31.4 (31.0-37.0) g/dL RDW 14.6 (11.5-15.5) % Plt Count 282 (150-450) k/uL MPV 7.9 Neutrophils % 75 % Lymphocytes % 20 % Monocytes % 3 % Eosinophils % 1 % Basophils % 0 % Neutrophils # 6.0 (1.3-7.7) k/uL Lymphocytes # 1.6 (1.0-4.8) k/uL Monocytes # 0.2 (0-1.0) k/uL Eosinophils # 0.1 (0-0.7) k/uL Basophils # 0.0 (0-0.2) k/uL Sodium 139 (137-145) mmol/L Potassium 4.8 (3.5-5.1) mmol/L Chloride 101 (98-107) mmol/L Carbon Dioxide 27 (22-30) mmol/L Anion Gap 11 mmol/L BUN 32 H (7-17) mg/dL Creatinine 0.76 (0.52-1.04) mg/dL Est GFR (CKD-EPI)AfAm >90 (>60 ml/min/1.73 sqM) Est GFR (CKD-EPI)NonAf 87 (>60 ml/min/1.73 sqM) Glucose 105 H (74-99) mg/dL Calcium 9.7 (8.4-10.2) mg/dL Magnesium 2.0 (1.6-2.3) mg/dL Total Bilirubin 0.5 (0.2-1.3) mg/dL AST 72 H (14-36) U/L ALT 82 H (4-34) U/L Alkaline Phosphatase 219 H (38-126) U/L Troponin I <0.012 (0.000-0.034) ng/mL Total Protein 7.4 (6.3-8.2) g/dL Albumin 4.4 (3.5-5.0) g/dL Disposition Clinical Impression: Headache, Hypertension Disposition: HOME SELF-CARE Condition: Fair Instructions (If sedation given, give patient instructions): Migraine Headache (ED) Is patient prescribed a controlled substance at d/c from ED?: No Referrals: Maisha Hammonds MD [Primary Care Provider] - 1-2 days Time of Disposition: 16:55
[2024-06-12] MEDS: SODIUM CHLORIDE 0.9% 1,000 ML IV STA (14:37)
[2024-06-12] MEDS: ONDANSETRON 4 MG/2 ML VIAL IVP STA (14:38)
[2024-06-12] MEDS: KETOROLAC 15 MG/ML 1 ML VIAL IVP STA (14:40)
[2024-06-12] MEDS: diphenhydrAMINE 50 MG/ML 1 ML VIAL IVP STA (14:42)
--- NOTE | 2024-06-12 15:17 | CT ---
EXAMINATION TYPE: CT brain wo con DATE OF EXAM: 06/12/2024 COMPARISON: 05/14/2024 CLINICAL INDICATION: Female, 58 years old with history of migraine; PHH, Migraine headache CT DLP: 1120.4 mGycm Automated exposure control for dose reduction was used. Findings: The ventricles, basal cisterns and sulci over the convexities are within normal limits and there is n o mass effect or shift of midline structures. No abnormal density is seen throughout the brain parenchyma and there is no acute intra or extra-axia l hemorrhage. The posterior fossa including the brainstem, fourth ventricle and cerebellar pontine angles appear no rmal. Intraorbital contents appear normal and symmetric. The paranasal sinuses are well aerated. There is absence of the right mastoid air cells consistent with right mastoidectomy. The left mastoid air cells are well aerated. The calvarium is intact. IMPRESSION: No acute bleed or mass effect. No interval change. [facility], , 06/12/2024 3:15 PM
[2024-06-12] MEDS: DEXAMETHASONE SOD PHOSPHATE 10 MG/ML 1 ML VIAL IV STA (16:52)
[2024-06-12] MEDS: MAGNESIUM SULFATE-D5W PMX 1 GM in DEXTROSE/WATER 1 100ML.BAG IVPB SCH (16:52)
[2024-06-12 17:46] VITALS: BP 128/65; PULSE 78; TEMP 97.7
== END 2024-06-12 17:46 | disposition home or self-care (01) ==
LOC: EC 11:37
DX: G43.909 Migraine, unspecified, not intractable, without status migrainosus (principal); I11.9 Hypertensive heart disease without heart failure; Z86.73 Personal history of transient ischemic attack (TIA), and cerebral infarction without residual deficits
CPT/HCPCS: 36415; 93005; 80053; 83735; 84484; 85025; 71046; 70450; 99285; 96374; 96375; 96361 ×2; J2405; J1885

== ENCOUNTER 2024-06-29 06:44 | Emergency (ER) | payer OTHER ==
[2024-06-29 06:51] VITALS: TEMP 98.1
[2024-06-29] MEDS: LORazepam 1 MG TAB PO STA (07:47)
[2024-06-29] MEDS: SODIUM CHLORIDE 0.9% 1,000 ML IV STA (07:49)
[2024-06-29 07:50] VITALS: RESP 17
[2024-06-29 08:07] LABS: ALT 30 U/L (4-34); AST 26 U/L (14-36); African American GFR (CKD) 79 (>60 ml/min/1.73 sqM); Alkaline Phosphatase 162 U/L (38-126); Anion Gap 7 mmol/L; Blood Urea Nitrogen 30 mg/dL (7-17); Calcium 9.3 mg/dL (8.4-10.2); Carbon Dioxide 27 mmol/L (22-30); Chloride 103 mmol/L (98-107); Glucose 122 mg/dL (74-99); Non-African American GFR(CKD) 68 (>60 ml/min/1.73 sqM); Potassium 4.2 mmol/L (3.5-5.1); Sodium 137 mmol/L (137-145); Total Bilirubin 0.6 mg/dL (0.2-1.3); Total Protein 6.6 g/dL (6.3-8.2)
[2024-06-29 08:08] LABS: Basophils % (A) 1 %; Eosinophils # (A) 0.1 k/uL (0-0.7); Eosinophils % (A) 2 %; Lymphocytes # (A) 1.4 k/uL (1.0-4.8); Lymphocytes % (A) 22 %; MCH 28.6 pg (25.0-35.0); MCHC 32.5 g/dL (31.0-37.0); MCV 88.1 fL (80.0-100.0); Mean Platelet Volume 7.3; Monocytes # (A) 0.2 k/uL (0-1.0); Monocytes % (A) 4 %; Neutrophils # (A) 4.5 k/uL (1.3-7.7); Neutrophils % (A) 71 %; Platelet Count 233 k/uL (150-450); RDW 14.1 % (11.5-15.5); WBC 6.4 k/uL (3.8-10.6)
--- NOTE | 2024-06-29 08:27 | ED ---
Seizure HPI - General Chief Complaint: Seizure Stated Complaint: seizure Time Seen by Provider: 06/29/24 07:12 Source: EMS Mode of arrival: EMS - History of Present Illness Initial Comments: 58-year-old female with past medical history of pseudo seizures and pseudo stro kes, conversion disorder who presents to the emergency department after a seizure. Her father is at bedside and helps for the history. States that the patient awoke this morning and was having a seizure. She was able to phone her dad to let him know that she was seizing. He was able to talk her through it and told her to pull her emergency cord in the bathroom. Father then states that EMS never showed. He went over to her apartment and called EMS. He reports that she was actively still seizing when he got to her. EMS did provide 5 mg of IM Versed and seizure stopped. Patient is on Lamictal and Valium for her seizures. Denies any missed doses. Does admit that she took her medicatio ns this morning. No reported trauma from the seizure. Patient follows with a neurologist out of [place]. She saw him 1 month ago and had an MRI. Most recent medication change was the addition of Wellbutrin by her primary care doctor. Patient denies any chest pain, shortness of breath. No lateralizing weakness. No headache. No other alleviating, precipitating modifying factors - Related Data Home Medications Medication Instructions Recorded Confirmed lamoTRIgine [LaMICtal] 200 mg PO BID 09/26/18 04/08/24 Sertraline [Zoloft] 100 mg PO BID 03/22/22 04/08/24 diazePAM [Valium] 10 mg PO HS 08/02/23 04/08/24 Atorvastatin [Lipitor] 80 mg PO HS 04/08/24 04/08/24 Mupirocin 2% Oint [Bactroban 2% 1 applic TOPICAL DAILY PRN 04/08/24 04/08/24 Oint] Previous Rx's Medication Instructions Recorded Nitroglycerin Sl Tabs [Nitrostat] 0.4 mg SUBLINGUAL Q5M PRN #20 tab 02/08/24 Aspirin 325 mg PO DAILY #30 tab 04/13/24 Allergies Allergy/AdvReac Type Severity Reaction Status Date / Time cephalexin [From Keflex] Allergy Rash/Hives Verified 06/12/24 12:07 codeine Allergy Rash/Hives Verified 06/12/24 12:07 erythromycin base Allergy Rash/Hives Verified 06/12/24 12:07 gadobutrol [From Gadavist] Allergy Anaphylaxis Verified 06/12/24 12:07 Gadolinium-Containing Allergy Anaphylaxis Verified 06/12/24 12:07 Contrast Medi iodine Allergy Anaphylaxis Verified 06/12/24 12:07 Penicillins Allergy Anaphylaxis Verified 06/12/24 12:07 vancomycin Allergy Anaphylaxis Verified 06/12/24 12:07 azithromycin AdvReac red face Verified 06/12/24 12:07 diphenhydramine AdvReac Confusion Verified 06/12/24 12:07 [From Benadryl] Review of Systems ROS Statement: Those systems with pertinent positive or pertinent negative responses have been documented in the HPI. ROS Other: All systems not noted in ROS Statement are negative. Past Medical History Past Medical History: Cancer, CVA/TIA, Syncope Additional Past Medical History / Comment(s): migraines, "stress seizures", swelling of left lower leg, insomnia, hx hiatal hernia, hx colon cancer, diarrhea, hx psoriasis, Leaky heart valve, episodes of "passing out", 3x blocked sweat glands currently. BLOOD TRANSFUSIONS FOR LOW HGB. tia 5 yrs ago no residual. uterine and colon ca x2. see dr [facility] History of Any Multi-Drug Resistant Organisms: MRSA Date of last positivie culture/infection: 08/10/19 MDRO Source:: URINE Past Surgical History: Appendectomy, Bowel Resection, Cholecystectomy, Ear Surgery, Hernia Repair, Hysterectomy, Orthopedic Surgery Additional Past Surgical History / Comment(s): frantz knee arthroscopy, hiatal hernia surgery, rt ear surgery to remove middle ear, lymph node biopsy right armpit. loop recorder Past Anesthesia/Blood Transfusion Reactions: Postoperative Nausea & Vomiting (PONV) Additional Past Anesthesia/Blood Transfusion Reaction / Comment(s): Pt has received blood in past without reaction. Type of Cardiac Device: Loop Device Placement Date:: 2016 states need to be removed everything fine now per patien Past Psychological History: Anxiety, Panic Disorder Smoking Status: Never smoker Past Alcohol Use History: Occasional Past Drug Use History: Marijuana - Past Family History Mother Family Medical History: Coronary Artery Disease (CAD), Diabetes Mellitus Additional Family Medical History / Comment(s): . Father Family Medical History: No Reported History Additional Family Medical History / Comment(s): Father is healthy General Exam General appearance: alert, in no apparent distress Head exam: Present: atraumatic, normocephalic, normal inspection Eye exam: Present: normal appearance, PERRL, EOMI. Absent: scleral icterus, conjunctival injection, periorbital swelling ENT exam: Present: normal exam, mucous membranes moist Neck exam: Present: normal inspection. Absent: tenderness, meningismus, lymphadenopathy Respiratory exam: Present: normal lung sounds bilaterally. Absent: respiratory distress, wheezes, rales, rhonchi, stridor Cardiovascular Exam: Present: regular rate, normal rhythm, normal heart sounds. Absent: systolic murmur, diastolic murmur, rubs, gallop, clicks GI/Abdominal exam: Present: soft, normal bowel sounds. Absent: distended, tenderness, guarding, rebound, rigid Extremities exam: Present: normal inspection, full ROM, normal capillary refill. Absent: tenderness, pedal edema, joint swelling, calf tenderness Back exam: Present: normal inspection Neurological exam: Present: alert, oriented X3, CN II-XII intact Psychiatric exam: Present: normal affect, normal mood Skin exam: Present: warm, dry, intact, normal color. Absent: rash Course Vital Signs 06/29/24 06/29/24 06:45 07:49 Temperature 98.1 F Pulse Rate 85 75 Respiratory 18 17 Rate Blood Pressure 133/66 163/62 O2 Sat by Pulse 95 95 Oximetry Medical Decision Making - Medical Decision Making Was pt. sent in by a medical professional or institution (PRAVIN Mendez, FACILITIES MAINTENANCE SUPERVISOR, urgent care, hospital, or half-way...) When possible be specific @ -[No] Did you speak to anyone other than the patient for history (EMS, parent, family, police, friend...)? What history was obtained from this source @ -[No] Did you review nursing and triage notes (agree or disagree)? Why? @ -[I reviewed and agree with nursing and triage notes] Were old charts reviewed (outside hosp., previous admission, EMS record, old EKG, old radiological studies, urgent care reports/EKG's, half-way records)? Report findings @ -[No old charts were reviewed] Differential Diagnosis (chest pain, altered mental status, abdominal pain women, abdominal pain men, vaginal bleeding, weakness, fever, dyspnea, syncope, headache, dizziness, GI bleed, back pain, seizure, CVA, palpatations, mental health, musculoskeletal)? @ -[not applicable] EKG interpreted by me (3pts min.). @ -Yes and demonstrates ectopic atrial rhythm with a rate of 68. [place] interval 138. QRS 136. QTc 439. Intraventricular conduction delay. X-rays interpreted by me (1pt min.). @ -[None done] CT interpreted by me (1pt min.). @ -[None done] U/S interpreted by me (1pt. min.). @ -[None done] What testing was considered but not performed or refused? (CT, X-rays, U/S, labs)? Why? @ -[None] What meds were considered but not given or refused? Why? @ -[None] Did you discuss the management of the patient with other professionals (professionals i.e. , PA, FACILITIES MAINTENANCE SUPERVISOR, lab, RT, psych nurse, social media project manager, radiation therapy technologist, teacher, electoral officer, showcase maker)? Give summary @ -[No] Was smoking cessation discussed for >3mins.? @ -[No] Was critical care preformed (if so, how long)? @ -[No] Were there social determinants of health that impacted care today? How? (Homelessness, low income, unemployed, alcoholism, drug addiction, transportation, low edu. Level, literacy, decrease access to med. care, shelter, rehab)? @ -[No] Was there de-escalation of care discussed even if they declined (Discuss DNR or withdrawal of care, Hospice)? DNR status @ -[No] What co-morbidities impacted this encounter? (DM, HTN, Smoking, COPD, CAD, Cancer, CVA, ARF, Chemo, Hep., AIDS, mental health diagnosis, sleep apnea, morbid obesity)? @ -[None] Was patient admitted / discharged? Hospital course, mention meds given and route, prescriptions, significant lab abnormalities, going to OR and other pertinent info. @ -[hospital course] Undiagnosed new problem with uncertain prognosis? @ -[No] Drug Therapy requiring intensive monitoring for toxicity (Heparin, Nitro, Insu elizabeth, Cardizem)? @ -[No] Were any procedures done? @ -[No] Diagnosis/symptom? @ -[default] Acute, or Chronic, or Acute on Chronic? @ -[default] Uncomplicated (without systemic symptoms) or Complicated (systemic symptoms)? @ -[default] Side effects of treatment? @ -[No] Exacerbation, Progression, or Severe Exacerbation? @ -[No] Poses a threat to life or bodily function? How? (Chest pain, [place], [place], pneumonia, PE, COPD, DKA, ARF, appy, cholecystitis, CVA, Diverticulitis, Homicidal, Suicidal, threat to staff... and all critical care pts) @ -[No] - Lab Data Result diagrams: 06/29/24 07:30 06/29/24 07:30 Lab Results 06/29/24 06/29/24 06/29/24 Range/Units 07:30 07:30 08:40 WBC 6.4 (3.8-10.6) k/uL RBC 4.20 (3.80-5.40) m/uL Hgb 12.0 (11.4-16.0) gm/dL Hct 37.0 (34.0-46.0) % MCV 88.1 (80.0-100.0) fL MCH 28.6 (25.0-35.0) pg MCHC 32.5 (31.0-37.0) g/dL RDW 14.1 (11.5-15.5) % Plt Count 233 (150-450) k/uL MPV 7.3 Neutrophils % 71 % Lymphocytes % 22 % Monocytes % 4 % Eosinophils % 2 % Basophils % 1 % Neutrophils # 4.5 (1.3-7.7) k/uL Lymphocytes # 1.4 (1.0-4.8) k/uL Monocytes # 0.2 (0-1.0) k/uL Eosinophils # 0.1 (0-0.7) k/uL Basophils # 0.0 (0-0.2) k/uL Sodium 137 (137-145) mmol/L Potassium 4.2 (3.5-5.1) mmol/L Chloride 103 (98-107) mmol/L Carbon Dioxide 27 (22-30) mmol/L Anion Gap 7 mmol/L BUN 30 H (7-17) mg/dL Creatinine 0.93 (0.52-1.04) mg/dL Est GFR (CKD-EPI)AfAm 79 (>60 ml/min/1.73 sqM) Est GFR (CKD-EPI)NonAf 68 (>60 ml/min/1.73 sqM) Glucose 122 H (74-99) mg/dL Calcium 9.3 (8.4-10.2) mg/dL Total Bilirubin 0.6 (0.2-1.3) mg/dL AST 26 (14-36) U/L ALT 30 (4-34) U/L Alkaline Phosphatase 162 H (38-126) U/L Total Protein 6.6 (6.3-8.2) g/dL Albumin 4.0 (3.5-5.0) g/dL Urine Color Colorless Urine Appearance Clear (Clear) Urine pH 6.5 (5.0-8.0) Ur Specific [place] 1.011 (1.001-1.035) Urine Protein Negative (Negative) Urine Glucose (UA) Negative (Negative) Urine Ketones Negative (Negative) Urine Blood Negative (Negative) Urine Nitrite Negative (Negative) Urine Bilirubin Negative (Negative) Urine Urobilinogen <2.0 (<2.0) mg/dL Ur Leukocyte Esterase Trace H (Negative) Urine RBC <1 (0-5) /hpf Urine WBC 11 H (0-5) /hpf Ur Squamous Epith Cells <1 (0-4) /hpf Disposition Clinical Impression: Breakthrough seizure Disposition: HOME SELF-CARE Condition: Stable Instructions (If sedation given, give patient instructions): Recurrent Seizures in Adults (ED) Additional Instructions: Please call your neurologist office for an appointment. Return for any new or worsening symptoms Is patient prescribed a controlled substance at d/c from ED?: No Referrals: None,Stated [Primary Care Provider] - 1-2 days Time of Disposition: 09:17
[2024-06-29 09:08] LABS: Appearance,Urine Clear (Clear); Bilirubin,Urine Negative (Negative); Blood,Urine Negative (Negative); Color,Urine Colorless; Glucose,Urine (UA) Negative (Negative); Ketones,Urine Negative (Negative); Leukocyte Esterase,Urine Trace (Negative); Nitrite,Urine Negative (Negative); PH, Urine 6.5 (5.0-8.0); Protein,Urine Negative (Negative); RBC,Urine <1 /hpf (0-5); Specific Gravity,Urine 1.011 (1.001-1.035); Squamous Epithelial Cell,Urine <1 /hpf (0-4); Urobilinogen,Urine <2.0 mg/dL (<2.0); WBC,Urine 11 /hpf (0-5)
[2024-06-29 09:58] VITALS: BP 132/76; PULSE 78
== END 2024-06-29 09:57 | disposition home or self-care (01) ==
LOC: EC 06:44
DX: G40.909 Epilepsy, unspecified, not intractable, without status epilepticus (principal); Z86.73 Personal history of transient ischemic attack (TIA), and cerebral infarction without residual deficits; Z88.0 Allergy status to penicillin; Z88.8 Allergy status to other drugs, medicaments and biological substances; Z88.1 Allergy status to other antibiotic agents; Z91.041 Radiographic dye allergy status
CPT/HCPCS: 36415; 80053; 80175; 81001; 85025; 93005; 96360; 99284

== ENCOUNTER 2024-08-08 13:33 | Observation (INO) | payer OTHER ==
--- NOTE | 2024-08-08 14:07 | ED ---
General Adult HPI - General Source: patient, RN notes reviewed Mode of arrival: wheelchair Limitations: no limitations <Lucia Murrieta - Last Filed: 08/08/24 14:07> <Tristan Aranda - Last Filed: 08/08/24 17:28> - General Chief complaint: Syncope Stated complaint: dizziness Time Seen by Provider: 08/08/24 13:50 - History of Present Illness Initial comments: Quick [id number] female presented to emergency department with father for complaints of generalized weakness and dizziness over the past day. It is r eported the patient had multiple near syncopal events over the past day. (Lucia Murrieta) Dictation was produced using [employer] dictation software. please excuse any grammatical, word or spelling errors. Chief Complaint: 58-year-old female with history of seizure disorder presents to the emergency department with several days of weakness dizziness and headache History of Present Illness: Patient is a 58-year-old female presents to the emergency department with dizziness weakness and headache. She has a history of migraines. She states that her headache today feels like a regular headache instead of her usual migraines. She gets regular headaches and migraines often. For the last 2 to 3 days she has been feeling weak. Father at the bedside states that he received a call from the friend saying that patient had passed out on the toilet. She has been having multiple syncopal episodes throughout the last 40 to 72 hours. Patient denies any pain complaints. She feels weak and malaised. Denies any medication changes. The ROS documented in this emergency department record has been reviewed and confirmed by me. Those systems with pertinent positive or negative responses have been documented in the HPI. All other systems are other negative and/or noncontributory. (Tristan Aranda) - Related Data Home Medications Medication Instructions Recorded Confirmed Sertraline [Zoloft] 100 mg PO BID 03/22/22 04/08/24 diazePAM [Valium] 10 mg PO HS 08/02/23 04/08/24 Atorvastatin [Lipitor] 80 mg PO HS 04/08/24 04/08/24 Aspirin EC [Ecotrin Low Dose] 81 mg PO DAILY 08/08/24 08/08/24 LORazepam [Ativan] 2 mg PO HS PRN 08/08/24 08/08/24 Valsartan [Diovan] 160 mg PO DAILY 08/08/24 08/08/24 buPROPion XL [Wellbutrin XL] 150 mg PO DAILY 08/08/24 08/08/24 hydroCHLOROthiazide 12.5 mg PO DAILY 08/08/24 08/08/24 lamoTRIgine [LaMICtal] 100 mg PO BID 08/08/24 08/08/24 Allergies Allergy/AdvReac Type Severity Reaction Status Date / Time cephalexin [From Keflex] Allergy Rash/Hives Verified 08/08/24 17:21 codeine Allergy Rash/Hives Verified 08/08/24 17:21 erythromycin base Allergy Rash/Hives Verified 08/08/24 17:21 gadobutrol [From Gadavist] Allergy Anaphylaxis Verified 08/08/24 17:21 Gadolinium-Containing Allergy Anaphylaxis Verified 08/08/24 17:21 Contrast Medi iodine Allergy Anaphylaxis Verified 08/08/24 17:21 Penicillins Allergy Anaphylaxis Verified 08/08/24 17:21 vancomycin Allergy Anaphylaxis Verified 08/08/24 17:21 azithromycin AdvReac red face Verified 08/08/24 17:21 diphenhydramine AdvReac Confusion Verified 08/08/24 17:21 [From Benadryl] Review of Systems ROS Other: All systems not noted in ROS Statement are negative. <Lucia Murrieta - Last Filed: 08/08/24 14:07> ROS Other: All systems not noted in ROS Statement are negative. <Tristan Aranda - Last Filed: 08/08/24 17:28> ROS Statement: Those systems with pertinent positive or pertinent negative responses have been documented in the HPI. Past Medical History Past Medical History: Cancer, CVA/TIA, Syncope Additional Past Medical History / Comment(s): migraines, "stress seizures", swelling of left lower leg, insomnia, hx hiatal hernia, hx colon cancer, diarrhea, hx psoriasis, Leaky heart valve, episodes of "passing out", 3x blocked sweat glands currently. BLOOD TRANSFUSIONS FOR LOW HGB. tia 5 yrs ago no residual. uterine and colon ca x2. see dr [facility] History of Any Multi-Drug Resistant Organisms: MRSA Date of last positivie culture/infection: 08/10/19 MDRO Source:: URINE Past Surgical History: Appendectomy, Bowel Resection, Cholecystectomy, Ear Surgery, Hernia Repair, Hysterectomy, Orthopedic Surgery Additional Past Surgical History / Comment(s): frantz knee arthroscopy, hiatal hernia surgery, rt ear surgery to remove middle ear, lymph node biopsy right armpit. loop recorder Past Anesthesia/Blood Transfusion Reactions: Postoperative Nausea & Vomiting (PONV) Additional Past Anesthesia/Blood Transfusion Reaction / Comment(s): Pt has received blood in past without reaction. Type of Cardiac Device: Loop Device Placement Date:: 2016 states need to be removed everything fine now per patien Past Psychological History: Anxiety, Panic Disorder Smoking Status: Never smoker Past Alcohol Use History: Occasional Past Drug Use History: Marijuana - Past Family History Mother Family Medical History: Coronary Artery Disease (CAD), Diabetes Mellitus Additional Family Medical History / Comment(s): . Father Family Medical History: No Reported History Additional Family Medical History / Comment(s): Father is healthy <Lucia Murrieta - Last Filed: 08/08/24 14:07> General Exam Limitations: no limitations <Lucia Murrieta - Last Filed: 08/08/24 14:07> <Tristan Aranda - Last Filed: 08/08/24 17:28> - General Exam Comments Initial Comments: Visual Physical Exam Vital signs reviewed General: Well-appearing, nontoxic, no acute distress. Head: Normocephalic, atraumatic Eyes: PERRLA, EOMI ENT: Airway patent Chest: Nonlabored breathing Skin: No visual rash, normal skin tone Neuro: Alert and oriented 3 Musculoskeletal: No gross abnormalities (Lucia Murrieta) PHYSICAL EXAM: General Impression: Alert and oriented x3, malaised HEENT: Normocephalic atraumatic, extra-ocular movements intact, pupils equal and reactive to light bilaterally, mucous membranes moist. Cardiovascular: Heart regular rate and rhythm Chest: Able to complete full sentences, no retractions, no tachypnea Abdomen: abdomen soft, non-tender, non-distended, no organomegaly Musculoskeletal: Pulses present and equal in all extremities, no peripheral edema Motor: no focal deficits noted Neurological: CN II-XII grossly intact, no focal motor or sensory deficits noted, no hyperreflexia Skin: Intact with no visualized rashes Psych: Normal affect and mood (Tristan Aranda) Course Vital Signs 08/08/24 13:38 Temperature 97.6 F Pulse Rate 71 Respiratory 18 Rate Blood Pressure 133/73 O2 Sat by Pulse 100 Oximetry EKG Findings - EKG Comments: EKG Findings:: My EKG interpretation: Ventricular rate is rhythm, DC 170, QRS 144, QTc 460, right bundle branch block. No DC prolongation, no QTC prolongation, no ST or T-wave changes noted. Overall, this EKG is unremarkable <Tristan Aranda - Last Filed: 08/08/24 17:28> Medical Decision Making <Lucia Murrieta - Last Filed: 08/08/24 14:07> - Lab Data Result diagrams: 08/08/24 14:25 08/08/24 14:25 <Tristan Aranda - Last Filed: 08/08/24 17:28> - Medical Decision Making I completed the quick note portion of this chart signed JULIAN Ramírez Chloe) Was pt. sent in by a medical professional or institution ([facility]IN Mendez, [employer], urgent care, hospital, or long term...) When possible be specific @ -No Did you speak to anyone other than the patient for history (EMS, parent, family, police, friend...)? What history was obtained from this source @ -No Did you review nursing and triage notes (agree or disagree)? Why? @ -I reviewed and agree with nursing and triage notes Were old charts reviewed (outside hosp., previous admission, EMS record, old EKG, old radiological studies, urgent care reports/EKG's, long term records)? Report findings @ -No old charts were reviewed Differential Diagnosis (chest pain, altered mental status, abdominal pain women, abdominal pain men, vaginal bleeding, musculoskeletal, weakness, fever, dyspnea, syncope, headache, dizziness, GI bleed, back pain, seizure, CVA, palpatations, mental health)? @ -Differential Syncope: Valvular disease, hypertrophic cardiomyopathy, pulmonary embolism, tamponade, tachycardia, bradycardia, [place], hypovolemia, hemorrhage, dissection, anemia, intracranial hemorrhage, seizure, hypoglycemia, carbon monoxide poisoning, this is not meant to be an all-inclusive list. EKG interpreted by me (3pts min.). @ -See above X-rays interpreted by me (1pt min.). @ -Chest x-ray CT interpreted by me (1pt min.). @ -CT brain does not acute U/S interpreted by me (1pt. min.). @ -None done What testing was considered but not performed or refused? (CT, X-rays, U/S, labs)? Why? @ -None What meds were considered but not given or refused? Why? @ -None Was smoking cessation discussed for >3mins.? @ -No Were there social determinants of health that impacted care today? How? (Homel essness, low income, unemployed, alcoholism, drug addiction, transportation, low edu. Level, literacy, decrease access to med. care, assisted, rehab)? @ -No Was there de-escalation of care discussed even if they declined (Discuss DNR or withdrawal of care, Hospice)? DNR status @ -No What co-morbidities impacted this encounter? (DM, HTN, Smoking, COPD, CAD, Cancer, CVA, ARF, Chemo, Hep., AIDS, mental health diagnosis, sleep apnea, morbid obesity)? @ -Cardiac comorbidities Was patient admitted / discharged? Hospital course, mention meds given and route, prescriptions, significant lab abnormalities, going to OR and other pertinent info. @ -58-year-old female presents emergency department multiple episodes of syncope. She does report cardiac comorbidities. She does see cardiology. Vital signs upon arrival are within acceptable limits. Physical exam shows malaised female. Laboratory evaluation is unremarkable. EKG is nonacute. Imaging studies are negative. Disposition options were discussed. Patient prefers observation admission for cardiac monitoring, cardiology consultation. Given patient has history of seizure neurology will be consulted for possible neuro related syncope. Case discussed with hospitalist for admission Did you discuss the management of the patient with other professionals (professionals i.e. , PA, [employer], lab, RT, psych nurse, dialysis social worker, direct sales professional, teacher, penal officer, transplant case manager)? Give summary @ -No Was critical care preformed (if so, how long)? @ -No Undiagnosed new problem with uncertain prognosis? @ -No Drug Therapy requiring intensive monitoring for toxicity (Heparin, Nitro, Insulin, Cardizem)? @ -No Were any procedures done? @ -No Diagnosis/symptom? Acute, or Chronic, or Acute on Chronic? Uncomplicated (without systemic symptoms) or Complicated (systemic symptoms)? @ -syncope Side effects of treatment? @ -No Exacerbation, Progression, or Severe Exacerbation? @ -No Poses a threat to life or bodily function? How? (Chest pain, [place], [place], pneumonia, PE, COPD, DKA, ARF, appy, cholecystitis, CVA, Diverticulitis, Homicidal, [place] icidal, threat to staff... and all critical care pts) @ -yes (Tristan Aranda) - Lab Data Lab Results 08/08/24 08/08/24 08/08/24 Range/Units 14:25 14:25 14:25 WBC 8.19 (4.50-10.00) 10*3/uL RBC 3.89 L (4.10-5.20) 10*6/uL Hgb 11.5 L (12.0-15.0) g/dL Hct 34.6 L (37.2-46.3) % MCV 88.9 (80.0-97.0) fL MCH 29.6 (27.0-32.0) pg MCHC 33.2 (32.0-37.0) g/dL Plt Count 274 (140-440) 10*3/uL MPV 9.9 (9.5-12.2) fL Immature Gran % (Auto) 0.2 % Neutrophils % 71.6 % Lymphocytes % 22.1 % Monocytes % 4.8 % Eosinophils % 0.9 % Basophils % 0.4 % Immature Gran # 0.02 (0.00-0.04) 10*3/uL Neutrophils # 5.87 (1.80-7.70) 10*3/uL Lymphocytes # 1.81 (0.90-5.00) 10*3/uL Monocytes # 0.39 (0.20-1.00) 10*3/uL Eosinophils # 0.07 (0.04-0.35) 10*3/uL Basophils # 0.03 (0.00-0.10) 10*3/uL PT 10.0 (10.0-12.5) sec INR 0.9 (<1.2) APTT 22.2 (22.0-30.0) sec Sodium 139 (137-145) mmol/L Potassium 4.3 (3.5-5.1) mmol/L Chloride 103 (98-107) mmol/L Carbon Dioxide 28 (22-30) mmol/L Anion Gap 8 mmol/L BUN 28 H (7-17) mg/dL Creatinine 1.06 H (0.52-1.04) mg/dL Est GFR (CKD-EPI)AfAm 67 (>60 ml/min/1.73 sqM) Est GFR (CKD-EPI)NonAf 58 (>60 ml/min/1.73 sqM) Glucose 108 H (74-99) mg/dL Plasma Lactic Acid Williams (0.7-2.0) mmol/L Calcium 9.7 (8.4-10.2) mg/dL Magnesium 2.2 (1.6-2.3) mg/dL Total Bilirubin 0.6 (0.2-1.3) mg/dL AST 29 (14-36) U/L ALT 24 (4-34) U/L Alkaline Phosphatase 165 H (38-126) U/L Troponin I (0.000-0.034) ng/mL Total Protein 7.3 (6.3-8.2) g/dL Albumin 4.3 (3.5-5.0) g/dL TSH 2.690 (0.465-4.680) mIU/L 08/08/24 08/08/24 Range/Units 14:25 14:25 WBC (4.50-10.00) 10*3/uL RBC (4.10-5.20) 10*6/uL Hgb (12.0-15.0) g/dL Hct (37.2-46.3) % MCV (80.0-97.0) fL MCH (27.0-32.0) pg MCHC (32.0-37.0) g/dL Plt Count (140-440) 10*3/uL MPV (9.5-12.2) fL Immature Gran % (Auto) % Neutrophils % % Lymphocytes % % Monocytes % % Eosinophils % % Basophils % % Immature Gran # (0.00-0.04) 10*3/uL Neutrophils # (1.80-7.70) 10*3/uL Lymphocytes # (0.90-5.00) 10*3/uL Monocytes # (0.20-1.00) 10*3/uL Eosinophils # (0.04-0.35) 10*3/uL Basophils # (0.00-0.10) 10*3/uL PT (10.0-12.5) sec INR (<1.2) APTT (22.0-30.0) sec Sodium (137-145) mmol/L Potassium (3.5-5.1) mmol/L Chloride (98-107) mmol/L Carbon Dioxide (22-30) mmol/L Anion Gap mmol/L BUN (7-17) mg/dL Creatinine (0.52-1.04) mg/dL Est GFR (CKD-EPI)AfAm (>60 ml/min/1.73 sqM) Est GFR (CKD-EPI)NonAf (>60 ml/min/1.73 sqM) Glucose (74-99) mg/dL Plasma Lactic Acid Williams 0.6 L (0.7-2.0) mmol/L Calcium (8.4-10.2) mg/dL Magnesium (1.6-2.3) mg/dL Total Bilirubin (0.2-1.3) mg/dL AST (14-36) U/L ALT (4-34) U/L Alkaline Phosphatase (38-126) U/L Troponin I <0.012 (0.000-0.034) ng/mL Total Protein (6.3-8.2) g/dL Albumin (3.5-5.0) g/dL TSH (0.465-4.680) mIU/L Disposition <Lucia Murrieta - Last Filed: 08/08/24 14:07> Decision Time: 17:28 <Tristan Aranda - Last Filed: 08/08/24 17:28> Clinical Impression: Syncope Disposition: ADMITTED IP TO THIS HOSP Condition: Fair Referrals: Maisha Hammonds MD [Primary Care Provider] - 1-2 days
--- NOTE | 2024-08-08 14:32 | XR ---
EXAMINATION TYPE: XR chest 2V DATE OF EXAM: 08/08/2024 2:24 PM COMPARISON: Chest radiographs from 06/12/2024 TECHNIQUE: XR chest 2V Frontal and lateral views of the chest. CLINICAL INDICATION:Female, 58 years old with history of Weakness; FINDINGS: Lungs/Pleura: There is no evidence of pleural effusion, focal consolidation, or pneumothorax. Pulmonary vascularity: Unremarkable. Heart/mediastinum: Cardiomediastinal silhouette is enlarged and stable. Musculoskeletal: Multiple level degenerative disc disease changes seen throughout the spine. Other: Loop recorder within the left anterior chest wall. IMPRESSION: Chronic changes without acute pulmonary process. No significant change from prior. [facility], , 08/08/2024 2:30 PM
[2024-08-08 15:14] LABS: ALT 24 U/L (4-34); AST 29 U/L (14-36); African American GFR (CKD) 67 (>60 ml/min/1.73 sqM); Albumin 4.3 g/dL (3.5-5.0); Alkaline Phosphatase 165 U/L (38-126); Anion Gap 8 mmol/L; Blood Urea Nitrogen 28 mg/dL (7-17); Calcium 9.7 mg/dL (8.4-10.2); Carbon Dioxide 28 mmol/L (22-30); Chloride 103 mmol/L (98-107); Glucose 108 mg/dL (74-99); Magnesium 2.2 mg/dL (1.6-2.3); Non-African American GFR(CKD) 58 (>60 ml/min/1.73 sqM); Potassium 4.3 mmol/L (3.5-5.1); Sodium 139 mmol/L (137-145); Total Bilirubin 0.6 mg/dL (0.2-1.3); Total Protein 7.3 g/dL (6.3-8.2)
[2024-08-08 15:25] LABS: INR 0.9 (<1.2); Partial Thromboplastin Time 22.2 sec (22.0-30.0)
[2024-08-08 15:52] LABS: Basophils # (A) 0.03 10*3/uL (0.00-0.10); Basophils % (A) 0.4 %; Eosinophils # (A) 0.07 10*3/uL (0.04-0.35); Eosinophils % (A) 0.9 %; HCT 34.6 % (37.2-46.3); HGB 11.5 g/dL (12.0-15.0); Lymphocytes # (A) 1.81 10*3/uL (0.90-5.00); Lymphocytes % (A) 22.1 %; MCH 29.6 pg (27.0-32.0); MCHC 33.2 g/dL (32.0-37.0); MCV 88.9 fL (80.0-97.0); Mean Platelet Volume 9.9 fL (9.5-12.2); Monocytes # (A) 0.39 10*3/uL (0.20-1.00); Monocytes % (A) 4.8 %; Neutrophils # (A) 5.87 10*3/uL (1.80-7.70); Neutrophils % (A) 71.6 %; Platelet Count 274 10*3/uL (140-440); RBC 3.89 10*6/uL (4.10-5.20); RDW 13.7 % (11.5-14.5); WBC 8.19 10*3/uL (4.50-10.00)
--- NOTE | 2024-08-08 16:44 | CT ---
EXAMINATION TYPE: CT brain trista wo con DATE OF EXAM: 08/08/2024 COMPARISON: 09/07/2023 CLINICAL INDICATION: Female, 58 years old with history of syncope, fall, headache; PHH, syncope, fall , headache TECHNIQUE: CT scan of the head and cervical spine are performed without contrast. CT DLP: 1442.[address] CTDI: mGy Automated exposure control for dose reduction was used. Findings: Head CT: Ventricles, basal cisterns and sulci over convexities within normal limits and there is no mass, mass effect or shift of midline structures. No abnormal density is seen throughout the brain parenchyma and there is no acute intra or extra-axia l hemorrhage. Posterior fossa including the brainstem, fourth ventricle and cerebellar pontine angles are grossly n ormal. The intraorbital contents appear normal and symmetric. Visualized paranasal sinuses are well aerated. CT cervical spine: Craniovertebral junction relationships and prevertebral soft tissues are normal. The cervical vertebral segments are normal in height and alignment and there is no fracture subluxati on. There is loss of normal cervical lordosis. Mild disc space narrowing and spondylosis at C6-7 indicating mild degenerative disc disease. The facet joints and uncovertebral joints are intact without significant degeneration. The bony cervical canal is widely patent and there is no bony encroachment of the neural foramina. The paraspinal soft tissues unremarkable. IMPRESSION: 1. Head CT: No acute bleed or mass effect. 2. CT cervical spine: No acute trauma. Mild degenerative disc disease at C6-7. [facility], Workstation: EMILY 08/08/2024 4:41 PM
[2024-08-08] MEDS: SODIUM CHLORIDE 0.9% 1,000 ML IV STA (17:21)
[2024-08-08] MEDS ORDERED: NALOXONE 0.4 MG/ML 1 ML VIAL IV PRN (17:23)
[2024-08-08] MEDS: SODIUM CHLORIDE 0.9% 1,000 ML IV SCH (17:42)
[2024-08-08] MEDS: LORazepam 1 MG TAB PO PRN (19:51)
[2024-08-08] MEDS: VALSARTAN 160 MG TAB PO STA (20:28)
[2024-08-08] MEDS: diazePAM 5 MG TAB PO SCH (22:05)
[2024-08-08] MEDS: ATORVASTATIN 80 MG TAB PO SCH (22:05)
[2024-08-09 01:21] VITALS: RESP 16
[2024-08-09 08:34] VITALS: BP 102/61; PULSE 68; TEMP 98
[2024-08-09] MEDS: SERTRALINE 100 MG TAB PO SCH (09:06)
[2024-08-09] MEDS: lamoTRIgine 100 MG TAB PO SCH (09:06)
[2024-08-09] MEDS: buPROPion XL 150 MG TAB.ER.24H PO SCH (09:06)
[2024-08-09] MEDS: ASPIRIN 81 MG PO SCH (09:06)
[2024-08-09] MEDS: hydroCHLOROthiazide 12.5 MG CAP PO SCH (09:06)
--- NOTE | 2024-08-09 11:04 | P.CRDCN ---
History of Present Illness History of present illness: HISTORY OF PRESENT ILLNESS: This is a 58-year-old female with a past medical history significant for coronary artery disease, hypertension, hyperlipidemia, TIA, syncope, seizure, and obesity. Patient follows in the office with Dr. Martin. We have been asked to see the patient in consultation for syncope. Patient examined at the bedside. Patient states 2 days ago she was sitting on the toilet and had a bowel movement. She states she was on the phone talking to her friend. When she s tood up she began to feel dizzy and felt like the room was spinning. She reports that she fell to the floor. She states that she did lose consciousness. She denies any loss of bowel or bladder control. She states yesterday morning she was feeling unwell and felt very diaphoretic. She called her friend to come see her who thought that she looked unwell and then she called her dad to bring her to the hospital for evaluation. The patient currently denies any chest pain or pressure. She denies any shortness of breath. Denies any dizziness or lightheadedness. Vital signs are stable. DIAGNOSTICS: - EKG reveals sinus mechanism with no signs of acute ischemia. - Chest xray chronic changes without acute pulmonary process. - Laboratory data: WBC 8.19. Hemoglobin 11.5. Platelet count 274. Sodium 139. Potassium 4.3. BUN 28. Creatinine 1.06. Troponin negative x 1. TSH 2.690 - Current home cardiac medications include Lipitor 80 mg at night, aspirin 81 mg daily, valsartan 160 mg daily, hydrochlorothiazide 12.5 mg daily. - Most recent echocardiogram obtained in February 2024 revealing ejection fraction 55 to 60% with mild to moderate mitral regurgitation - Cardiac catheterization history: February 2024 revealing minimal CAD - Patient had an event monitor in March 2024 with no evidence of arrhythmias - Patient underwent tilt table testing in October 2023 with an episode of altered consciousness consistent with psychogenic response - Patient had a tilt table test in September 2013 which was positive and consistent with neurocardiogenic etiology REVIEW OF SYSTEMS: At the time of my exam: CONSTITUTIONAL: Denies fever or chills. HEENT: Denies blurred vision, vision changes, or eye pain. Denies hemoptysis CARDIOVASCULAR: Denies chest pain. Denies orthopnea. Denies PND. Denies palpitations RESPIRATORY: Denies shortness of breath. GASTROINTESTINAL: Denies abdominal pain. Denies nausea or vomiting. HEMATOLOGIC: Denies bleeding disorders. GENITOURINARY: Denies any blood in urine. SKIN: Denies pruitis. Denies rash. PHYSICAL EXAM: VITAL SIGNS: Reviewed. GENERAL: Well-developed in no acute distress. HEENT: Head is normocephalic. Pupils are equal, round. Sclerae anicteric. Mucous membranes of the mouth are moist. Neck supple. No JVD or thyromegaly LUNGS: Respirations even and unlabored. Lungs essentially clear to auscultation bilaterally. HEART: Regular rate and rhythm. S1 and S2 heard. ABDOMEN: Soft. Nondistended. Nontender. EXTREMITIES: Normal range of motion. No clubbing or cyanosis. Peripheral pulses intact. No lower extremity edema NEUROLOGIC: Awake and alert. Oriented x 3. ASSESSMENT: Syncope, suspect vasovagal in etiology Minimal CAD per cath February 2024 History of hypertension History of hyperlipidemia History of TIA History of syncope History of seizure disorder Obesity: BMI 34.0 PLAN: Patient's syncope appears to be vasovagal in etiology Resume home cardiac medications No need to repeat echocardiogram at this time Patient may be discharged home this evening and follow-up in the office with Dr. Martin We will sign off. Please reconsult if needed. Nurse practitioner note has been reviewed by physician. Signing provider agrees with the documented findings, assessment, and plan of care documented by WEIGH BOSS as a scribe. Past Medical History Past Medical History: Cancer, CVA/TIA, Syncope Additional Past Medical History / Comment(s): migraines, "stress seizures", swelling of left lower leg, insomnia, hx hiatal hernia, hx colon cancer, diarrhea, hx psoriasis, Leaky heart valve, episodes of "passing out", 3x blocked sweat glands currently. BLOOD TRANSFUSIONS FOR LOW HGB. tia 5 yrs ago no residual. uterine and colon ca x2. see dr Davenport [facility] & P History of Any Multi-Drug Resistant Organisms: MRSA Date of last positivie culture/infection: 08/10/19 MDRO Source:: URINE Past Surgical History: Appendectomy, Bowel Resection, Cholecystectomy, Ear Surgery, Hernia Repair, Hysterectomy, Orthopedic Surgery Additional Past Surgical History / Comment(s): frantz knee arthroscopy, hiatal hernia surgery, rt ear surgery to remove middle ear, lymph node biopsy right armpit. loop recorder Past Anesthesia/Blood Transfusion Reactions: Postoperative Nausea & Vomiting (PONV) Additional Past Anesthesia/Blood Transfusion Reaction / Comment(s): Pt has received blood in past without reaction. Type of Cardiac Device: Loop Device Placement Date:: 2016 states need to be removed everything fine now per patien Past Psychological History: Anxiety, Panic Disorder Additional Psychological History / Comment(s): Pt resides alone. Her mother is her caregiver. She uses no assistive device. She does not drive. Smoking Status: Never smoker Past Alcohol Use History: Occasional Past Drug Use History: Marijuana Additional Drug Use History / Comment(s): tried edibles for sleep ( chocolate), pt aware not to use 24 hrs before procedure. - Past Family History Mother Family Medical History: Coronary Artery Disease (CAD), Diabetes Mellitus Additional Family Medical History / Comment(s): . Father Family Medical History: No Reported History Additional Family Medical History / Comment(s): Father is healthy Medications and Allergies Home Medications Medication Instructions Recorded Confirmed Type Sertraline [Zoloft] 100 mg PO BID 03/22/22 08/08/24 History diazePAM [Valium] 10 mg PO HS 08/02/23 08/08/24 History Atorvastatin [Lipitor] 80 mg PO HS 04/08/24 08/08/24 History Aspirin EC [Ecotrin Low Dose] 81 mg PO DAILY 08/08/24 08/08/24 History LORazepam [Ativan] 2 mg PO HS PRN 08/08/24 08/08/24 History Valsartan [Diovan] 160 mg PO DAILY 08/08/24 08/08/24 History buPROPion XL [Wellbutrin XL] 150 mg PO DAILY 08/08/24 08/08/24 History hydroCHLOROthiazide 12.5 mg PO DAILY 08/08/24 08/08/24 History lamoTRIgine [LaMICtal] 100 mg PO BID 08/08/24 08/08/24 History Allergies Allergy/AdvReac Type Severity Reaction Status Date / Time cephalexin [From Keflex] Allergy Rash/Hives Verified 08/08/24 17:21 codeine Allergy Rash/Hives Verified 08/08/24 17:21 erythromycin base Allergy Rash/Hives Verified 08/08/24 17:21 gadobutrol [From Gadavist] Allergy Anaphylaxis Verified 08/08/24 17:21 Gadolinium-Containing Allergy Anaphylaxis Verified 08/08/24 17:21 Contrast Medi iodine Allergy Anaphylaxis Verified 08/08/24 17:21 Penicillins Allergy Anaphylaxis Verified 08/08/24 17:21 vancomycin Allergy Anaphylaxis Verified 08/08/24 17:21 azithromycin AdvReac red face Verified 08/08/24 17:21 diphenhydramine AdvReac Confusion Verified 08/08/24 17:21 [From Benadryl] Physical Exam Vitals: Vital Signs Temp Pulse Pulse Resp BP BP Pulse Ox 08/09/24 07:12 98.0 F 68 16 102/61 97 08/09/24 02:00 97.9 F 62 16 108/63 98 08/08/24 22:00 16 08/08/24 20:27 98.4 F 71 18 161/83 98 08/08/24 20:00 97.6 F 66 16 125/84 94 L 08/08/24 19:20 70 18 176/86 98 08/08/24 17:00 98.0 F 59 L 16 163/61 100 08/08/24 13:38 97.6 F 71 18 133/73 100 Intake and Output 08/08/24 08/09/24 08/09/24 22:59 06:59 14:59 Other: Voiding Method Toilet # Voids 2 2 Weight 81.647 kg Results 08/08/24 14:25 08/08/24 14:25 Cardiac Enzymes 08/08/24 08/08/24 Range/Units 14:25 14:25 AST 29 (14-36) U/L Troponin I <0.012 (0.000-0.034) ng/mL Coagulation 08/08/24 Range/Units 14:25 PT 10.0 (10.0-12.5) sec APTT 22.2 (22.0-30.0) sec CBC 08/08/24 Range/Units 14:25 WBC 8.19 (4.50-10.00) 10*3/uL RBC 3.89 L (4.10-5.20) 10*6/uL Hgb 11.5 L (12.0-15.0) g/dL Hct 34.6 L (37.2-46.3) % Plt Count 274 (140-440) 10*3/uL Comprehensive Metabolic Panel 08/08/24 Range/Units 14:25 Sodium 139 (137-145) mmol/L Potassium 4.3 (3.5-5.1) mmol/L Chloride 103 (98-107) mmol/L Carbon Dioxide 28 (22-30) mmol/L BUN 28 H (7-17) mg/dL Creatinine 1.06 H (0.52-1.04) mg/dL Glucose 108 H (74-99) mg/dL Calcium 9.7 (8.4-10.2) mg/dL AST 29 (14-36) U/L ALT 24 (4-34) U/L Alkaline Phosphatase 165 H (38-126) U/L Total Protein 7.3 (6.3-8.2) g/dL Albumin 4.3 (3.5-5.0) g/dL Current Medications Generic Name Dose Route Start Last Admin Trade Name Freq PRN Reason Stop Dose Admin Aspirin 81 mg 08/09/24 09:00 08/09/24 09:06 Aspirin 81 Mg PO 81 mg DAILY EVERARDO Administration Atorvastatin Calcium 80 mg 08/08/24 21:00 08/08/24 22:05 Atorvastatin 80 Mg Tab PO 80 mg HS EVERARDO Administration Bupropion HCl 150 mg 08/09/24 09:00 08/09/24 09:06 Bupropion Xl 150 Mg Tab.Er.24h PO 150 mg DAILY EVERARDO Administration Diazepam 10 mg 08/08/24 21:00 08/08/24 22:05 Diazepam 5 Mg Tab PO 10 mg HS EVERARDO Administration Hydrochlorothiazide 12.5 mg 08/09/24 09:00 08/09/24 09:06 Hydrochlorothiazide 12.5 Mg Cap PO 12.5 mg DAILY EVERARDO Administration Sodium Chloride 1,000 mls @ 20 mls/hr 08/08/24 17:30 08/08/24 17:42 Saline 0.9% IV 20 mls/hr .Q24H EVERARDO Administration Lamotrigine 100 mg 08/09/24 09:00 08/09/24 09:06 Lamotrigine 100 Mg Tab PO 100 mg DAILY EVERARDO Administration Lorazepam 2 mg 08/08/24 19:27 08/08/24 19:51 Lorazepam 1 Mg Tab PO 2 mg HS PRN Administration Anxiety Naloxone HCl 0.2 mg 08/08/24 17:23 Naloxone 0.4 Mg/Ml 1 Ml Vial IV Q2M PRN Opioid Reversal Sertraline HCl 100 mg 08/09/24 09:00 08/09/24 09:06 Sertraline 100 Mg Tab PO 100 mg DAILY EVERARDO Administration Intake and Output 08/08/24 08/09/24 08/09/24 22:59 06:59 14:59 Other: Voiding Method Toilet # Voids 2 2 Weight 81.647 kg 08/08/24 14:25 08/08/24 14:25
[2024-08-09] MEDS ORDERED: SODIUM CHLORIDE 0.9% 500 ML 500 ML IV ONE (11:35)
--- NOTE | 2024-08-09 11:40 | P.HPIM ---
History of Present Illness Patient is a 58-year-old female with known history of seizures and TIAs in the past came in after syncopal episode patient was in the bathroom at the time had a bowel movement stood up felt dizzy and lost consciousness. Yesterday morning patient was diaphoretic as well. Patient blood pressure is usually within normal limits but patient orthostatics were positive patient has an elevated creatinine of 1.1 patient denied any diarrhea at this time denied any shortness of breath patient does not have a seizure patient was evaluated by cardiology they believe patient had a vasovagal event and cleared for discharge patient was cleared by neurology as well. EKG showed sinus rhythm without any signs of ischemia, chest x-ray did not show any acute cardiopulmonary process. Patient takes valsartan and hydrochlorothiazide at home. REVIEW OF SYSTEMS: All other systems are negative except those mentioned in the HPI PHYSICAL EXAMINATION: GENERAL: The patient is alert and oriented x3, not in any acute distress. Well developed, well nourished. HEENT: Pupils are round and equally reacting to light. EOMI. No scleral icterus. No conjunctival pallor. Normocephalic, atraumatic. No pharyngeal erythema. No thyromegaly. CARDIOVASCULAR: S1 and S2 present. No murmurs, rubs, or gallops. PULMONARY: Chest is clear to auscultation, no wheezing or crackles. ABDOMEN: Soft, nontender, nondistended, normoactive bowel sounds. No palpable organomegaly. MUSCULOSKELETAL: No joint swelling or deformity. EXTREMITIES: No cyanosis, clubbing, or pedal edema. NEUROLOGICAL: Gross neurological examination did not reveal any focal deficits. SKIN: No rashes. Assessment and plan Syncope: I believe her syncope is secondary to mild dehydration evident by mildly elevated serum creatinine. Patient also has positive orthostatic vitals. Patient was asked to check the blood pressure twice or thrice a day taken to PCPs office I will discontinue hydrochlorothiazide. Patient can be resumed on valsartan. - Coronary artery disease minimal from cardiac catheterization in 2023 - Hypertension - Hyperlipidemia - Seizure disorder Patient will be discharged today in stable medical condition to home we will give her 500 mL bolus before her discharge because of her positive orthostatic vitals Past Medical History Past Medical History: Cancer, CVA/TIA, Syncope Additional Past Medical History / Comment(s): migraines, "stress seizures", swelling of left lower leg, insomnia, hx hiatal hernia, hx colon cancer, diarrhea, hx psoriasis, Leaky heart valve, episodes of "passing out", 3x blocked sweat glands currently. BLOOD TRANSFUSIONS FOR LOW HGB. tia 5 yrs ago no residual. uterine and colon ca x2. see dr Davenport H & P History of Any Multi-Drug Resistant Organisms: MRSA Date of last positivie culture/infection: 08/10/19 MDRO Source:: URINE Past Surgical History: Appendectomy, Bowel Resection, Cholecystectomy, Ear Surgery, Hernia Repair, Hysterectomy, Orthopedic Surgery Additional Past Surgical History / Comment(s): frantz knee arthroscopy, hiatal hernia surgery, rt ear surgery to remove middle ear, lymph node biopsy right armpit. loop recorder Past Anesthesia/Blood Transfusion Reactions: Postoperative Nausea & Vomiting (PONV) Additional Past Anesthesia/Blood Transfusion Reaction / Comment(s): Pt has received blood in past without reaction. Type of Cardiac Device: Loop Device Placement Date:: 2016 states need to be removed everything fine now per patien Past Psychological History: Anxiety, Panic Disorder Additional Psychological History / Comment(s): Pt resides alone. Her mother is her caregiver. She uses no assistive device. She does not drive. Smoking Status: Never smoker Past Alcohol Use History: Occasional Past Drug Use History: Marijuana Additional Drug Use History / Comment(s): tried edibles for sleep ( chocolate), pt aware not to use 24 hrs before procedure. - Past Family History Mother Family Medical History: Coronary Artery Disease (CAD), Diabetes Mellitus Additional Family Medical History / Comment(s): . Father Family Medical History: No Reported History Additional Family Medical History / Comment(s): Father is healthy Medications and Allergies Home Medications Medication Instructions Recorded Confirmed Type Sertraline [Zoloft] 100 mg PO BID 03/22/22 08/08/24 History diazePAM [Valium] 10 mg PO HS 08/02/23 08/08/24 History Atorvastatin [Lipitor] 80 mg PO HS 04/08/24 08/08/24 History Aspirin EC [Ecotrin Low Dose] 81 mg PO DAILY 08/08/24 08/08/24 History LORazepam [Ativan] 2 mg PO HS PRN 08/08/24 08/08/24 History Valsartan [Diovan] 160 mg PO DAILY 08/08/24 08/08/24 History buPROPion XL [Wellbutrin XL] 150 mg PO DAILY 08/08/24 08/08/24 History lamoTRIgine [LaMICtal] 100 mg PO BID 08/08/24 08/08/24 History Allergies Allergy/AdvReac Type Severity Reaction Status Date / Time cephalexin [From Keflex] Allergy Rash/Hives Verified 08/08/24 17:21 codeine Allergy Rash/Hives Verified 08/08/24 17:21 erythromycin base Allergy Rash/Hives Verified 08/08/24 17:21 gadobutrol [From Gadavist] Allergy Anaphylaxis Verified 08/08/24 17:21 Gadolinium-Containing Allergy Anaphylaxis Verified 08/08/24 17:21 Contrast Medi iodine Allergy Anaphylaxis Verified 08/08/24 17:21 Penicillins Allergy Anaphylaxis Verified 08/08/24 17:21 vancomycin Allergy Anaphylaxis Verified 08/08/24 17:21 azithromycin AdvReac red face Verified 08/08/24 17:21 diphenhydramine AdvReac Confusion Verified 08/08/24 17:21 [From Benadryl] Physical Exam Vitals: Vital Signs Temp Pulse Pulse Resp BP BP Pulse Ox 08/09/24 07:12 98.0 F 68 16 102/61 97 08/09/24 02:00 97.9 F 62 16 108/63 98 08/08/24 22:00 16 08/08/24 20:27 98.4 F 71 18 161/83 98 08/08/24 20:00 97.6 F 66 16 125/84 94 L 08/08/24 19:20 70 18 176/86 98 08/08/24 17:00 98.0 F 59 L 16 163/61 100 08/08/24 13:38 97.6 F 71 18 133/73 100 Intake and Output 08/08/24 08/09/24 08/09/24 22:59 06:59 14:59 Other: Voiding Method Toilet # Voids 2 2 Weight 81.647 kg Results CBC & Chem 7: 08/08/24 14:25 08/08/24 14:25 Labs: Abnormal Lab Results - Last 24 Hours (Table) 08/08/24 08/08/24 08/08/24 Range/Units 14:25 14:25 14:25 RBC 3.89 L (4.10-5.20) 10*6/uL Hgb 11.5 L (12.0-15.0) g/dL Hct 34.6 L (37.2-46.3) % BUN 28 H (7-17) mg/dL Creatinine 1.06 H (0.52-1.04) mg/dL Glucose 108 H (74-99) mg/dL Plasma Lactic Acid Williams 0.6 L (0.7-2.0) mmol/L Alkaline Phosphatase 165 H (38-126) U/L Thrombosis Risk Factor Assmnt - Choose All That Apply Each Factor Represents 1 point: Age 41-60 years, Obesity (BMI >25) Other Risk Factors: No Other congenital or acquired thrombophilia - If yes, enter type in comment: No Thrombosis Risk Factor Assessment Total Risk Factor Score: 2 Thrombosis Risk Factor Assessment Level: Low Risk
--- NOTE | 2024-08-09 11:40 | P.DS ---
Providers Date of admission: 08/08/24 17:25 Attending physician: Charmaine Nieves Consults: 08/08/24 17:23 Consult Physician Routine Consulting Provider: Javon Hernandez Consult Reason/Comments: syncope, hx of seizure Do you want consulting provider notified?: Yes Primary care physician: [facility] Course: Patient is a 58-year-old female with known history of seizures and TIAs in the past came in after syncopal episode patient was in the bathroom at the time had a bowel movement stood up felt dizzy and lost consciousness. Yesterday morning patient was diaphoretic as well. Patient blood pressure is usually within normal limits but patient orthostatics were positive patient has an elevated creatinine of 1.1 patient denied any diarrhea at this time denied any shortness of breath patient does not have a seizure patient was evaluated by cardiology they believe patient had a vasovagal event and cleared for discharge patient was cleared by neurology as well. EKG showed sinus rhythm without any signs of ischemia, chest x-ray did not show any acute cardiopulmonary process. Patient takes valsartan and hydrochlorothiazide at home. REVIEW OF SYSTEMS: All other systems are negative except those mentioned in the HPI PHYSICAL EXAMINATION: GENERAL: The patient is alert and oriented x3, not in any acute distress. Well developed, well nourished. HEENT: Pupils are round and equally reacting to light. EOMI. No scleral icterus. No conjunctival pallor. Normocephalic, atraumatic. No pharyngeal erythema. No thyromegaly. CARDIOVASCULAR: S1 and S2 present. No murmurs, rubs, or gallops. PULMONARY: Chest is clear to auscultation, no wheezing or crackles. ABDOMEN: Soft, nontender, nondistended, normoactive bowel sounds. No palpable organomegaly. MUSCULOSKELETAL: No joint swelling or deformity. EXTREMITIES: No cyanosis, clubbing, or pedal edema. NEUROLOGICAL: Gross neurological examination did not reveal any focal deficits. SKIN: No rashes. Assessment and plan Syncope: I believe her syncope is secondary to mild dehydration evident by mildly elevated serum creatinine. Patient also has positive orthostatic vitals. Patient was asked to check the blood pressure twice or thrice a day taken to PCPs office I will discontinue hydrochlorothiazide. Patient can be resumed on valsartan. - Coronary artery disease minimal from cardiac catheterization in 2023 - Hypertension - Hyperlipidemia - Seizure disorder Patient will be discharged today in stable medical condition to home we will give her 500 mL bolus before her discharge because of her positive orthostatic vitals Patient Condition at Discharge: Fair Plan - Discharge Summary Discharge Rx Participant: No New Discharge Prescriptions: Discontinued hydroCHLOROthiazide 12.5 mg PO DAILY No Action Atorvastatin [Lipitor] 80 mg PO HS Aspirin EC [Ecotrin Low Dose] 81 mg PO DAILY Sertraline [Zoloft] 100 mg PO BID diazePAM [Valium] 10 mg PO HS buPROPion XL [Wellbutrin XL] 150 mg PO DAILY Valsartan [Diovan] 160 mg PO DAILY lamoTRIgine [LaMICtal] 100 mg PO BID LORazepam [Ativan] 2 mg PO HS PRN PRN Reason: Anxiety Discharge Medication List Sertraline [Zoloft] 100 mg PO BID 03/22/22 [History] diazePAM [Valium] 10 mg PO HS 08/02/23 [History] Atorvastatin [Lipitor] 80 mg PO HS 04/08/24 [History] Aspirin EC [Ecotrin Low Dose] 81 mg PO DAILY 08/08/24 [History] LORazepam [Ativan] 2 mg PO HS PRN 08/08/24 [History] Valsartan [Diovan] 160 mg PO DAILY 08/08/24 [History] buPROPion XL [Wellbutrin XL] 150 mg PO DAILY 08/08/24 [History] lamoTRIgine [LaMICtal] 100 mg PO BID 08/08/24 [History] Follow up Appointment(s)/Referral(s): Maisha Hammonds MD [Primary Care Provider] - 3 Days Discharge Disposition: HOME SELF-CARE
--- NOTE | 2024-08-09 13:26 | P.CNNES ---
History of Present Illness Consult date: 08/09/24 Requesting physician: Tristan Aranda Reason for Consult: syncope, hx of seizure History of Present Illness: This is a 58-year-old woman with history of nonepileptic seizure and patient is on Lamictal who presents emergency department because of syncopal episode. Patient stated that yesterday she was on the toilet having a bowel movement as well as was talking on the phone with her friend that when patient seems passed out. She denies hitting her head or falling. She denies any tongue bite. Next day she was clammy as a result she came to the hospital. She was back to baseline denies any headache, any focal deficit, any further syncopal episodes. Denies any further seizure-like activity. Patient follows up with Dr. Mcclure for her seizures, out of [place], [place]. Patient stating that she had a prolonged EEG for several days and she was notified that was nonepileptic seizure. She is on Lamictal 200 mg twice a day. She stated that she was discontinued off of Wellbutrin and she is on Zoloft twice a day. At our facility it seems that during this hospital visit she is on Lamictal 100 mg and she is on Wellbutrin. Some of the workup during this hospital visit consisted of: I reviewed the lab workup CT of the head is reported as no acute bleed or mass effect. I reviewed the CT of the head and I agree with the report. CT cervical spine is reported as no acute trauma. Mild degenerative disc disease at C6-C7. Review of Systems As per HPI. Past Medical History Past Medical History: Cancer, CVA/TIA, Syncope Additional Past Medical History / Comment(s): migraines, "stress seizures", swelling of left lower leg, insomnia, hx hiatal hernia, hx colon cancer, diarrhea, hx psoriasis, Leaky heart valve, episodes of "passing out", 3x blocked sweat glands currently. BLOOD TRANSFUSIONS FOR LOW HGB. tia 5 yrs ago no residual. uterine and colon ca x2. see dr [facility]enport [facility] P History of Any Multi-Drug Resistant Organisms: MRSA Date of last positivie culture/infection: 08/10/19 MDRO Source:: URINE Past Surgical History: Appendectomy, Bowel Resection, Cholecystectomy, Ear Surgery, Hernia Repair, Hysterectomy, Orthopedic Surgery Additional Past Surgical History / Comment(s): frantz knee arthroscopy, hiatal hernia surgery, rt ear surgery to remove middle ear, lymph node biopsy right armpit. loop recorder Past Anesthesia/Blood Transfusion Reactions: Postoperative Nausea & Vomiting (PONV) Additional Past Anesthesia/Blood Transfusion Reaction / Comment(s): Pt has received blood in past without reaction. Type of Cardiac Device: Loop Device Placement Date:: 2016 states need to be removed everything fine now per patien Past Psychological History: Anxiety, Panic Disorder Additional Psychological History / Comment(s): Pt resides alone. Her mother is her caregiver. She uses no assistive device. She does not drive. Smoking Status: Never smoker Past Alcohol Use History: Occasional Past Drug Use History: Marijuana Additional Drug Use History / Comment(s): tried edibles for sleep ( chocolate), pt aware not to use 24 hrs before procedure. - Past Family History Mother Family Medical History: Coronary Artery Disease (CAD), Diabetes Mellitus Additional Family Medical History / Comment(s): . Father Family Medical History: No Reported History Additional Family Medical History / Comment(s): Father is healthy Medications and Allergies Home Medications Medication Instructions Recorded Confirmed Type Sertraline [Zoloft] 100 mg PO BID 03/22/22 08/08/24 History diazePAM [Valium] 10 mg PO HS 08/02/23 08/08/24 History Atorvastatin [Lipitor] 80 mg PO HS 04/08/24 08/08/24 History Aspirin EC [Ecotrin Low Dose] 81 mg PO DAILY 08/08/24 08/08/24 History LORazepam [Ativan] 2 mg PO HS PRN 08/08/24 08/08/24 History Valsartan [Diovan] 160 mg PO DAILY 08/08/24 08/08/24 History buPROPion XL [Wellbutrin XL] 150 mg PO DAILY 08/08/24 08/08/24 History lamoTRIgine [LaMICtal] 100 mg PO BID 08/08/24 08/08/24 History Allergies Allergy/AdvReac Type Severity Reaction Status Date / Time cephalexin [From Keflex] Allergy Rash/Hives Verified 08/08/24 17:21 codeine Allergy Rash/Hives Verified 08/08/24 17:21 erythromycin base Allergy Rash/Hives Verified 08/08/24 17:21 gadobutrol [From Gadavist] Allergy Anaphylaxis Verified 08/08/24 17:21 Gadolinium-Containing Allergy Anaphylaxis Verified 08/08/24 17:21 Contrast Medi iodine Allergy Anaphylaxis Verified 08/08/24 17:21 Penicillins Allergy Anaphylaxis Verified 08/08/24 17:21 vancomycin Allergy Anaphylaxis Verified 08/08/24 17:21 azithromycin AdvReac red face Verified 08/08/24 17:21 diphenhydramine AdvReac Confusion Verified 08/08/24 17:21 [From Benadryl] Physical Examination - Vital Signs Vital Signs: Vital Signs Temp Pulse Pulse Resp BP BP Pulse Ox 08/09/24 07:12 98.0 F 68 16 102/61 97 08/09/24 02:00 97.9 F 62 16 108/63 98 08/08/24 22:00 16 08/08/24 20:27 98.4 F 71 18 161/83 98 08/08/24 20:00 97.6 F 66 16 125/84 94 L 08/08/24 19:20 70 18 176/86 98 08/08/24 17:00 98.0 F 59 L 16 163/61 100 08/08/24 13:38 97.6 F 71 18 133/73 100 Intake and Output 08/08/24 08/09/24 08/09/24 22:59 06:59 14:59 Other: Voiding Method Toilet # Voids 2 2 Weight 81.647 kg GENERAL: The patient is lying in bed and is not in acute distress. NEUROLOGICAL: Higher mental function: The patient is awake, alert, oriented to self, place and time. Patient is following commands. No aphasia and no neglect. Cranial nerves: The pupils are round, equal and reactive to light and accommodation. Visual moreno are full to confrontation throughout. Extraocular movement is intact no nystagmus is noted. Facial sensation is normal to touch throughout. The facial strength is normal throughout. Hearing is normal bila terally to hand rub. Tongue is midline and moved [id number] without any difficulty. No dysarthria is noted. Shoulder shrug is normal bilaterally. Motor: The strength is 5 over 5 throughout. Normal tone and bulk. Cerebellum: Normal finger to nose heel to heredia bilaterally. Sensation: Sensation is normal to touch throughout. Reflexes (right/left):2+ throughout. Plantars are downgoing bilaterally. Results - Laboratory Findings CBC and BMP: 08/08/24 14:25 08/08/24 14:25 Abnormal Lab Findings: Abnormal Labs 08/08/24 08/08/24 08/08/24 14:25 14:25 14:25 RBC 3.89 L Hgb 11.5 L Hct 34.6 L BUN 28 H Creatinine 1.06 H Glucose 108 H Plasma Lactic Acid Williams 0.6 L Alkaline Phosphatase 165 H Assessment and Plan Assessment: This is a 58-year-old woman with history of nonepileptic seizure, is on Lamictal who had a syncopal episode while on the toilet. Likely vasovagal syncope History of nonepileptic seizure Plan: I recommend resuming her correct home dose of Lamictal 200 mg twice a day and discontinuing Wellbutrin and placing her on Zoloft. She had a prolonged EEG by her outpatient neurologist, Dr. Mcclure in the past couple months and was told non-epileptic seizures. Will defer the rest of the medical management to primary team and other specialist Patient to continue following up with her outpatient neurologist within 2-3 weeks. There is no additional neurological workup. Will sign off. Please reconsult if needed. Thank you for the consultation. Time with Patient: Greater than 30
== END 2024-08-09 12:11 | disposition home or self-care (01) ==
LOC: EC 13:33 → 6NMEDSUR 17:25
PROVIDERS: ADMIT Hospitalist; ATTEND Hospitalist
DX: R55 Syncope and collapse (principal); E86.0 Dehydration; I25.10 Atherosclerotic heart disease of native coronary artery without angina pectoris; I10 Essential (primary) hypertension; E78.5 Hyperlipidemia, unspecified; E66.9 Obesity, unspecified; G40.909 Epilepsy, unspecified, not intractable, without status epilepticus; F41.0 Panic disorder [episodic paroxysmal anxiety]; G43.909 Migraine, unspecified, not intractable, without status migrainosus; M50.323 Other cervical disc degeneration at C6-C7 level; W18.30XA Fall on same level, unspecified, initial encounter; Z68.34 Body mass index [BMI] 34.0-34.9, adult; Z79.82 Long term (current) use of aspirin; Z79.899 Other long term (current) drug therapy; Z85.038 Personal history of other malignant neoplasm of large intestine; Z86.73 Personal history of transient ischemic attack (TIA), and cerebral infarction without residual deficits; Z88.8 Allergy status to other drugs, medicaments and biological substances; Z88.5 Allergy status to narcotic agent; Z88.1 Allergy status to other antibiotic agents; Z88.0 Allergy status to penicillin
CPT/HCPCS: 96360; 96361; 99285; 36415; 93005; 80053; 83605; 83735; 84443; 84484; 85025; 85610; 85730; 71046; 72125; 70450; G0378 ×2

== ENCOUNTER 2024-10-28 19:21 | Emergency (ER) | payer OTHER ==
--- NOTE | 2024-10-28 19:30 | ED ---
Seizure HPI - General Chief Complaint: Seizure Stated Complaint: Seizure chest pain water inhalation Time Seen by Provider: 10/28/24 19:25 Source: patient, EMS, RN notes reviewed, old records reviewed Mode of arrival: EMS Limitations: no limitations - History of Present Illness Initial Comments: This is a 58 female well-known to this ER coming in for seizure today. Patient had seizure while swimming today was complaining of some shortness of breath and cough initially. Those symptoms are resolved patient has been taking all medications and seizure medication as appropriate. No recent headache or head trauma. Patient is brought in by EMS for recurrent seizure MD Complaint: seizure -: minutes(s) Description of Episode: loss of consciousness, tonic-clonic movement -: second(s) Witnessed: yes - by bystander Seizure History: known seizure disorder Place: home Possible Precipitating Event: none Associated Symptoms: denies other symptoms Treatments Prior to Arrival: none - Related Data Home Medications Medication Instructions Recorded Confirmed Sertraline [Zoloft] 100 mg PO BID 03/22/22 08/08/24 diazePAM [Valium] 10 mg PO HS 08/02/23 08/08/24 Atorvastatin [Lipitor] 80 mg PO HS 04/08/24 08/08/24 Aspirin EC [Ecotrin Low Dose] 81 mg PO DAILY 08/08/24 08/08/24 LORazepam [Ativan] 2 mg PO HS PRN 08/08/24 08/08/24 Valsartan [Diovan] 160 mg PO DAILY 08/08/24 08/08/24 buPROPion XL [Wellbutrin XL] 150 mg PO DAILY 08/08/24 08/08/24 lamoTRIgine [LaMICtal] 100 mg PO BID 08/08/24 08/08/24 Allergies Allergy/AdvReac Type Severity Reaction Status Date / Time cephalexin [From Keflex] Allergy Rash/Hives Verified 10/28/24 19:28 codeine Allergy Rash/Hives Verified 10/28/24 19:28 erythromycin base Allergy Rash/Hives Verified 10/28/24 19:28 gadobutrol [From Gadavist] Allergy Anaphylaxis Verified 10/28/24 19:28 Gadolinium-Containing Allergy Anaphylaxis Verified 10/28/24 19:28 Contrast Medi iodine Allergy Anaphylaxis Verified 10/28/24 19:28 Penicillins Allergy Anaphylaxis Verified 10/28/24 19:28 vancomycin Allergy Anaphylaxis Verified 10/28/24 19:28 azithromycin AdvReac red face Verified 10/28/24 19:28 diphenhydramine AdvReac Confusion Verified 10/28/24 19:28 [From Benadryl] Review of Systems ROS Statement: Those systems with pertinent positive or pertinent negative responses have been documented in the HPI. ROS Other: All systems not noted in ROS Statement are negative. Past Medical History Past Medical History: Cancer, CVA/TIA, Syncope Additional Past Medical History / Comment(s): migraines, "stress seizures", swelling of left lower leg, insomnia, hx hiatal hernia, hx colon cancer, diarrhea, hx psoriasis, Leaky heart valve, episodes of "passing out", 3x blocked sweat glands currently. BLOOD TRANSFUSIONS FOR LOW HGB. tia 5 yrs ago no residual. uterine and colon ca x2. see dr Davenport [facility] & P History of Any Multi-Drug Resistant Organisms: MRSA Date of last positivie culture/infection: 08/10/19 MDRO Source:: URINE Past Surgical History: Appendectomy, Bowel Resection, Cholecystectomy, Ear Surgery, Hernia Repair, Hysterectomy, Orthopedic Surgery Additional Past Surgical History / Comment(s): frantz knee arthroscopy, hiatal hernia surgery, rt ear surgery to remove middle ear, lymph node biopsy right armpit. loop recorder Past Anesthesia/Blood Transfusion Reactions: Postoperative Nausea & Vomiting (PONV) Additional Past Anesthesia/Blood Transfusion Reaction / Comment(s): Pt has received blood in past without reaction. Type of Cardiac Device: Loop Device Placement Date:: 2016 states need to be removed everything fine now per patien Past Psychological History: Anxiety, Panic Disorder Smoking Status: Never smoker Past Alcohol Use History: Occasional Past Drug Use History: Marijuana - Past Family History Mother Family Medical History: Coronary Artery Disease (CAD), Diabetes Mellitus Additional Family Medical History / Comment(s): . Father Family Medical History: No Reported History Additional Family Medical History / Comment(s): Father is healthy General Exam Limitations: no limitations General appearance: alert, in no apparent distress Head exam: Present: atraumatic, normocephalic, normal inspection Eye exam: Present: normal appearance, PERRL, EOMI. Absent: scleral icterus, conjunctival injection, periorbital swelling ENT exam: Present: normal exam, mucous membranes moist Neck exam: Present: normal inspection. Absent: tenderness, meningismus, lymphadenopathy Respiratory exam: Present: normal lung sounds bilaterally. Absent: respiratory distress, wheezes, rales, rhonchi, stridor Cardiovascular Exam: Present: regular rate, normal rhythm, normal heart sounds. Absent: systolic murmur, diastolic murmur, rubs, gallop, clicks GI/Abdominal exam: Present: soft, normal bowel sounds. Absent: distended, tenderness, guarding, rebound, rigid Extremities exam: Present: normal inspection, full ROM, normal capillary refill. Absent: tenderness, pedal edema, joint swelling, calf tenderness Back exam: Present: normal inspection Neurological exam: Present: alert, oriented X3, CN II-XII intact Psychiatric exam: Present: normal affect, normal mood Skin exam: Present: warm, dry, intact, normal color. Absent: rash Course Vital Signs 10/28/24 10/28/24 10/28/24 19:22 20:44 21:29 Temperature 98.7 F 97.7 F Pulse Rate 70 66 62 Respiratory 15 17 16 Rate Blood Pressure 181/88 174/84 170/69 O2 Sat by Pulse 99 96 99 Oximetry - Reevaluation(s) Reevaluation #1: Medical records reviewed Reevaluation #2: Patient symptoms improved Reevaluation #3: Patient for results questions answered Reevaluation #4: Was pt. sent in by a medical professional or institution (Dr. PA, BILINGUAL STUDENT TUTOR, urgent care, hospital, or [place] [facility]...) When possible be specific @ -No Did you speak to anyone other than the patient for history (EMS, parent, family, police, friend...)? What history was obtained from this source @ -No Did you review nursing and triage notes (agree or disagree)? Why? @ -I reviewed and agree with nursing and triage notes Were old charts reviewed (outside hosp., previous admission, EMS record, old EKG, old radiological studies, urgent care reports/EKG's, [place] [facility] records)? Report findings @ -Yes old charts reviewed and noncontributory Differential Diagnosis (chest pain, altered mental status, abdominal pain women, abdominal pain men, vaginal bleeding, weakness, fever, dyspnea, syncope, headache, dizziness, GI bleed, back pain, seizure, CVA, palpatations, mental health, musculoskeletal)? @ -Yes as above EKG interpreted by me (3pts min.). @ -As above X-rays interpreted by me (1pt min.). @ -Yes negative for acute disease CT interpreted by me (1pt min.). @ -No U/S interpreted by me (1pt. min.). @ -None done What testing was considered but not performed or refused? (CT, X-rays, U/S, labs)? Why? @ -None What meds were considered but not given or refused? Why? @ -None Did you discuss the management of the patient with other professionals (professionals i.e. , PA, BILINGUAL STUDENT TUTOR, lab, RT, psych nurse, social welfare administrator, traffic and transport planner, teacher, corporate development officer, mental health case manager)? Give summary @ -No Was smoking cessation discussed for >3mins.? @ -No Was critical care preformed (if so, how long)? @ -No Were there social determinants of health that impacted care today? How? ([place] elessness, low income, unemployed, alcoholism, drug addiction, transportation, low edu. Level, literacy, decrease access to med. care, [place] [facility], rehab)? @ -No Was there de-escalation of care discussed even if they declined (Discuss DNR or withdrawal of care, Hospice)? DNR status @ -No What co-morbidities impacted this encounter? (DM, HTN, Smoking, COPD, CAD, Cancer, CVA, ARF, Chemo, Hep., AIDS, mental health diagnosis, sleep apnea, morbid obesity)? @ -None Was patient admitted / discharged? Hospital course, mention meds given and route, prescriptions, significant lab abnormalities, going to OR and other pertinent info. @ - 58 female with recurrent seizure. Patient well-known to this ER with history of seizures. Patient has no seizure-like activity throughout ER stay no difficulty breathing or other complaints patient can be discharged home Discharge Undiagnosed new problem with uncertain prognosis? @ -No Drug Therapy requiring intensive monitoring for toxicity (Heparin, Nitro, Insulin, Cardizem)? @ -No Were any procedures done? @ -No Diagnosis/symptom? @ -Recurrent seizure Acute, or Chronic, or Acute on Chronic? @ -Acute Uncomplicated (without systemic symptoms) or Complicated (systemic symptoms)? @ -Complicated Side effects of treatment? @ -No Exacerbation, Progression, or Severe Exacerbation? @ -Exacerbation Poses a threat to life or bodily function? How? (Chest pain, USA, NC, pneumonia, PE, COPD, DKA, ARF, appy, cholecystitis, CVA, Diverticulitis, Homicidal, Suicidal, threat to staff... and all critical care pts) @ -Yes with recurrent seizure Reevaluation #5: Differential Seizure: Recurrent seizure disorder, febrile seizure, alcohol withdrawal, stimulants, meningitis, encephalitis, intercranial hemorrhage, intracranial tumor, stroke, eclampsia, thyrotoxicosis, hypocalcemia, hyponatremia, hypernatremia, hypoma gnesemia, psychogenic, this is not meant to be an all-inclusive list. Medical Decision Making - Medical Decision Making 58 female with recurrent seizure. Patient well-known to this ER with history of seizures. Patient has no seizure-like activity throughout ER stay no difficulty breathing or other complaints patient can be discharged home - Lab Data Result diagrams: 10/28/24 19:40 10/28/24 19:40 Lab Results 10/28/24 10/28/24 10/28/24 Range/Units 19:40 19:40 19:40 WBC 9.01 (4.50-10.00) 10*3/uL RBC 4.05 L (4.10-5.20) 10*6/uL Hgb 12.4 (12.0-15.0) g/dL Hct 37.1 L (37.2-46.3) % MCV 91.6 (80.0-97.0) fL MCH 30.6 (27.0-32.0) pg MCHC 33.4 (32.0-37.0) g/dL Plt Count 286 (140-440) 10*3/uL MPV 10.5 (9.5-12.2) fL Immature Gran % (Auto) 0.2 % Neutrophils % 62.6 % Lymphocytes % 30.1 % Monocytes % 5.1 % Eosinophils % 1.6 % Basophils % 0.4 % Immature Gran # 0.02 (0.00-0.04) 10*3/uL Neutrophils # 5.64 (1.80-7.70) 10*3/uL Lymphocytes # 2.71 (0.90-5.00) 10*3/uL Monocytes # 0.46 (0.20-1.00) 10*3/uL Eosinophils # 0.14 (0.04-0.35) 10*3/uL Basophils # 0.04 (0.00-0.10) 10*3/uL Sodium 142 (137-145) mmol/L Potassium 4.9 (3.5-5.1) mmol/L Chloride 105 (98-107) mmol/L Carbon Dioxide 28 (22-30) mmol/L Anion Gap 9 mmol/L BUN 29 H (7-17) mg/dL Creatinine 0.87 (0.52-1.04) mg/dL Est GFR (CKD-EPI)AfAm 85 (>60 ml/min/1.73 sqM) Est GFR (CKD-EPI)NonAf 74 (>60 ml/min/1.73 sqM) Glucose 91 (74-99) mg/dL Plasma Lactic Acid Williams 0.9 (0.7-2.0) mmol/L Calcium 9.7 (8.4-10.2) mg/dL Phosphorus 4.0 (2.5-4.5) mg/dL Magnesium 2.0 (1.6-2.3) mg/dL Total Bilirubin 0.5 (0.2-1.3) mg/dL AST 36 (14-36) U/L ALT 31 (4-34) U/L Alkaline Phosphatase 155 H (38-126) U/L Troponin I (0.000-0.034) ng/mL Total Protein 7.8 (6.3-8.2) g/dL Albumin 4.7 (3.5-5.0) g/dL 10/28/24 Range/Units 19:40 WBC (4.50-10.00) 10*3/uL RBC (4.10-5.20) 10*6/uL Hgb (12.0-15.0) g/dL Hct (37.2-46.3) % MCV (80.0-97.0) fL MCH (27.0-32.0) pg MCHC (32.0-37.0) g/dL Plt Count (140-440) 10*3/uL MPV (9.5-12.2) fL Immature Gran % (Auto) % Neutrophils % % Lymphocytes % % Monocytes % % Eosinophils % % Basophils % % Immature Gran # (0.00-0.04) 10*3/uL Neutrophils # (1.80-7.70) 10*3/uL Lymphocytes # (0.90-5.00) 10*3/uL Monocytes # (0.20-1.00) 10*3/uL Eosinophils # (0.04-0.35) 10*3/uL Basophils # (0.00-0.10) 10*3/uL Sodium (137-145) mmol/L Potassium (3.5-5.1) mmol/L Chloride (98-107) mmol/L Carbon Dioxide (22-30) mmol/L Anion Gap mmol/L BUN (7-17) mg/dL Creatinine (0.52-1.04) mg/dL Est GFR (CKD-EPI)AfAm (>60 ml/min/1.73 sqM) Est GFR (CKD-EPI)NonAf (>60 ml/min/1.73 sqM) Glucose (74-99) mg/dL Plasma Lactic Acid Williams (0.7-2.0) mmol/L Calcium (8.4-10.2) mg/dL Phosphorus (2.5-4.5) mg/dL Magnesium (1.6-2.3) mg/dL Total Bilirubin (0.2-1.3) mg/dL AST (14-36) U/L ALT (4-34) U/L Alkaline Phosphatase (38-126) U/L Troponin I 0.014 (0.000-0.034) ng/mL Total Protein (6.3-8.2) g/dL Albumin (3.5-5.0) g/dL - EKG Data -: EKG Interpreted by Me (EKG is sinus 68 QRS 146 QTc 467) - Radiology Data Radiology results: report reviewed (Chest x-ray is negative for acute disease), image reviewed Disposition Clinical Impression: Generalized seizure Disposition: HOME SELF-CARE Condition: Good Instructions (If sedation given, give patient instructions): Seizure/Epilepsy Discharge Instructions & Follow-Up, Recurrent Seizures in Adults (ED) Is patient prescribed a controlled substance at d/c from ED?: No Referrals: Maisha Hammonds MD [Primary Care Provider] - 1-2 days Time of Disposition: 20:50
[2024-10-28 19:48] LABS: Basophils # (A) 0.04 10*3/uL (0.00-0.10); Basophils % (A) 0.4 %; Eosinophils # (A) 0.14 10*3/uL (0.04-0.35); Eosinophils % (A) 1.6 %; HCT 37.1 % (37.2-46.3); HGB 12.4 g/dL (12.0-15.0); Lymphocytes # (A) 2.71 10*3/uL (0.90-5.00); Lymphocytes % (A) 30.1 %; MCH 30.6 pg (27.0-32.0); MCHC 33.4 g/dL (32.0-37.0); MCV 91.6 fL (80.0-97.0); Monocytes # (A) 0.46 10*3/uL (0.20-1.00); Monocytes % (A) 5.1 %; Neutrophils # (A) 5.64 10*3/uL (1.80-7.70); Neutrophils % (A) 62.6 %; Platelet Count 286 10*3/uL (140-440); RBC 4.05 10*6/uL (4.10-5.20); RDW 13.5 % (11.5-14.5); WBC 9.01 10*3/uL (4.50-10.00)
[2024-10-28 20:24] LABS: ALT 31 U/L (4-34); AST 36 U/L (14-36); African American GFR (CKD) 85 (>60 ml/min/1.73 sqM); Albumin 4.7 g/dL (3.5-5.0); Alkaline Phosphatase 155 U/L (38-126); Anion Gap 9 mmol/L; Blood Urea Nitrogen 29 mg/dL (7-17); Calcium 9.7 mg/dL (8.4-10.2); Carbon Dioxide 28 mmol/L (22-30); Chloride 105 mmol/L (98-107); Glucose 91 mg/dL (74-99); Magnesium 2.0 mg/dL (1.6-2.3); Non-African American GFR(CKD) 74 (>60 ml/min/1.73 sqM); Potassium 4.9 mmol/L (3.5-5.1); Sodium 142 mmol/L (137-145); Total Protein 7.8 g/dL (6.3-8.2)
[2024-10-28] MEDS: SODIUM CHLORIDE 0.9% 1,000 ML IV ONE (20:35)
[2024-10-28] MEDS: HYDROmorphone 1 MG/ML 1 ML SYRINGE IVP STA (20:36)
[2024-10-28] MEDS: LORazepam 1 MG/0.5 ML VIAL IV STA (20:43)
[2024-10-28 20:45] VITALS: TEMP 97.7
--- NOTE | 2024-10-28 20:47 | XR ---
EXAMINATION TYPE: XR chest 1V portable DATE OF EXAM: 10/28/2024 8:43 PM COMPARISON: Prior chest radiographs, most recent dated 08/08/2024. CLINICAL INDICATION: Female, 58 years old with history of sob; [facility] TECHNIQUE: XR chest 1V portable Frontal view of the chest. FINDINGS: Lungs/Pleura: There is no evidence of pleural effusion, focal consolidation, or pneumothorax. Pulmonary vascularity: Unremarkable. Heart/mediastinum: Cardiomegaly. Left chest wall loop recorder device. Musculoskeletal: No acute osseous pathology. Other findings: None IMPRESSION: No acute cardiopulmonary disease/process. [facility], , 10/28/2024 8:44 PM
[2024-10-28 21:30] VITALS: BP 170/69; PULSE 62; RESP 16
== END 2024-10-28 21:30 | disposition home or self-care (01) ==
LOC: EC 19:21
DX: G40.409 Other generalized epilepsy and epileptic syndromes, not intractable, without status epilepticus (principal); Z88.0 Allergy status to penicillin; Z88.1 Allergy status to other antibiotic agents; Z88.8 Allergy status to other drugs, medicaments and biological substances; Z88.5 Allergy status to narcotic agent; Z91.041 Radiographic dye allergy status
CPT/HCPCS: 36415; 93005; 80053; 83605; 83735; 84100; 84484; 85025; 71045; 99285; 96374; 96375; 96361; J2060; J1171